=== PATIENT | female | born 1985 | race Caucasian/White ===

== ENCOUNTER 2018-03-16 16:02 | Emergency (ER) | payer OTHER ==
[2018-03-16] MEDS ORDERED: ALBUTEROL 2.5 MG/3 ML NEB SOL ONE (17:30)
[2018-03-16] MEDS ORDERED: IPRATROPIUM BROM 0.5MG/2.5ML ONE (17:30)
[2018-03-16] MEDS ORDERED: predniSONE 20 MG TAB ONE (17:31)
--- NOTE | 2018-03-16 17:46 | EDPHYS ---
Physician Documentation [facility] Name: Priscilla oSlo Age: 32 yrs Sex: Female : 1985 Arrival Date: 03/16/2018 Time: 16:10 Bed 27 Private MD: ED Physician Dillon Levine HPI: 03/16 17:07 This 32 yrs old Female presents to ER via Ambulatory with complaints of kb Cough, Congestion. 17:07 The patient or guardian reports cough, that is intermittent, described as mild, with no kb sputum. Onset: The symptoms/episode began/occurred 2 week(s) ago. Severity of symptoms: At their worst the symptoms were mild, moderate, in the emergency department the symptoms are unchanged. Modifying factors: The symptoms are alleviated by nothing, the symptoms are aggravated by nothing. Associated signs and symptoms: Pertinent positives: rhinorrhea, Pertinent negatives: chest pain, diarrhea, ear ache, fever, nausea, sore throat, vomiting. The patient has not experienced similar symptoms in the past, but family has similar symptoms, daughter, son. The patient has not recently seen a physician. 17:08 Pt reports cough, congestion and wheezing. States she is out of her inhalers so she kb hasn't had any asthma treatments. 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 - Social history:: Smoking status: Patient/guardian denies using tobacco. ROS: 17:07 Constitutional: Negative for fever, chills, and weight loss, Neck: Negative for injury, kb pain, and swelling, Cardiovascular: Negative for chest pain, palpitations, and edema, Abdomen/GI: Negative for abdominal pain, nausea, vomiting, diarrhea, and constipation, Back: Negative for injury and pain, : Negative for injury, bleeding, discharge, and swelling, MS/Extremity: Negative for injury and deformity, Skin: Negative for injury, rash, and discoloration, Neuro: Negative for headache, weakness, numbness, tingling, and seizure. 17:07 ENT: Positive for rhinorrhea, sinus congestion. 17:07 Respiratory: Positive for cough, wheezing, Negative for dyspnea on exertion, hemoptysis, orthopnea, pleurisy, shortness of breath, sputum production. Exam: 17:06 Constitutional: This is a well developed, well nourished patient who is awake, alert, kb and in no acute distress. Head/Face: Normocephalic, atraumatic. ENT: Nares patent. No nasal discharge, no septal abnormalities noted. Tympanic membranes are normal and external auditory canals are clear. Oropharynx with no redness, swelling, or masses, exudates, or evidence of obstruction, uvula midline. Mucous membranes moist. Neck: Trachea midline, no thyromegaly or masses palpated, and no cervical lymphadenopathy. Supple, full range of motion without nuchal rigidity, or vertebral point tenderness. No Meningismus. Chest/axilla: Normal chest wall appearance and motion. Nontender with no deformity. No lesions are appreciated. Cardiovascular: Regular rate and rhythm with a normal S1 and S2. No gallops, murmurs, or rubs. Normal PMI, no JVD. No pulse deficits. Abdomen/GI: Soft, non-tender, with normal bowel sounds. No distension or tympany. No guarding or rebound. No evidence of tenderness throughout. Back: No spinal tenderness. No costovertebral tenderness. Full range of motion. Skin: Warm, dry with normal turgor. Normal color with no rashes, no lesions, and no evidence of cellulitis. MS/ Extremity: Pulses equal, no cyanosis. Neurovascular intact. Full, normal range of motion. Neuro: Awake and alert, GCS 15, oriented to person, place, time, and situation. Cranial nerves II-XII grossly intact. Motor strength 5/5 in all extremities. Sensory grossly intact. Cerebellar exam normal. Normal gait. 17:06 Respiratory: the patient does not display signs of respiratory distress, Respirations: normal, Breath sounds: wheezing: expiratory that is mild, is scattered. Vital Signs: 16:18 BP 132 / 92; Pulse 86; Resp 18; Temp 97.0(TE); Pulse Ox 97% on R/A; Weight 120.2 kg lk1 (R); Height 5 ft. 1 in. (154.94 cm) (R); Pain 6/10; 18:47 BP 137 / 110; Pulse 98; Resp 18; Pulse Ox 100% ; tl3 16:18 Body Mass Index 50.07 (120.20 kg, 154.94 cm) lk1 MDM: 16:36 Patient medically screened. kb 17:06 Data reviewed: vital signs, nurses notes. Data interpreted: Pulse oximetry: on room air kb is 97 %. Interpretation: normal. 17:08 Counseling: I had a detailed discussion with the patient and/or guardian regarding: the kb historical points, exam findings, and any diagnostic results supporting the discharge/admit diagnosis, the need for outpatient follow up, a family practitioner, to return to the emergency department if symptoms worsen or persist or if there are any questions or concerns that arise at home. Administered Medications: 17:40 Drug: DuoNeb (3:1) (2.5 mg - 0.5 mg) 3 ml Route: Nebulizer; tl3 18:44 Follow up: Response: No adverse reaction; Wheezing diminished tl3 17:40 Drug: predniSONE 40 mg Route: PO; tl3 18:43 Follow up: Response: No adverse reaction tl3 Disposition: 18:51 Co-signature as Attending Physician, Dillon Levine MD. rn Disposition: 03/16/18 17:45 Discharged to Home. Impression: Acute upper respiratory infection, unspecified, Asthma. - Condition is Stable. - Discharge Instructions: Upper Respiratory Infection, Pediatric, Asthma, Adult, [id number]. - Prescriptions for Prednisone 20 mg Oral Tablet - take 1 tablet by ORAL route once daily for 5 days; 5 tablet. Albuterol Sulfate 90 mcg/actuation - inhale 1-2 puff by INHALATION route every 4-6 hours; 1 Inhaler. - Medication Reconciliation Form, Thank You Letter, Antibiotic Education, Prescription Opioid Use form. - Follow up: Emergency Department; When: As needed; Reason: Worsening of condition. Follow up: Private Physician; When: 2 - 3 days; Reason: Recheck today's complaints, Continuance of care, Re-evaluation by your physician. Signatures: Nai Nelson, LUBE WORKER-C LUBE WORKER-Dillon Flannery MD MD rn Kluge, Leah RN RN lk1 Namrata Gonzalez RN RN tl3 Corrections: (The following items were deleted from the chart) 18:44 17:45 03/16/2018 17:45 Discharged to Home. Impression: Acute upper respiratory tl3 infection, unspecified; Asthma. Condition is Stable. Discharge Instructions: Upper Respiratory Infection, Pediatric, Asthma, Adult, [id number]. Prescriptions for Prednisone 20 mg Oral Tablet - take 1 tablet by ORAL route once daily for 5 days; 5 tablet, Albuterol Sulfate 90 mcg/actuation - inhale 1-2 puff by INHALATION route every 4-6 hours; 1 Inhaler. and Forms are Medication Reconciliation Form, Thank You Letter, Antibiotic Education, Prescription Opioid Use. Follow up: Emergency Department; When: As needed; Reason: Worsening of condition. Follow up: Private Physician; When: 2 - 3 days; Reason: Recheck today's complaints, Continuance of care, Re-evaluation by your physician. kb
--- NOTE | 2018-03-16 17:46 | ER ---
Nurse's Notes [facility] Name: Priscilla Solo Age: 32 yrs Sex: Female : 1985 Arrival Date: 03/16/2018 Time: 16:10 Bed 27 Private MD: Diagnosis: Acute upper respiratory infection, unspecified;Asthma Presentation: 03/16 16:16 Presenting complaint: Patient states: "I have drainage, throat hurts, coughing, lk1 headaches, wheezing.". 16:16 Method Of Arrival: Ambulatory lk1 16:16 Transition of care: patient was not received from another setting of care. Onset of lk1 symptoms was February 27, 2018. Risk Assessment: Do you want to hurt yourself or someone else? Patient reports no desire to harm self or others. Initial Sepsis Screen: Does the patient meet any 2 criteria? No. Patient's initial sepsis screen is negative. Does the patient have a suspected source of infection? No. Patient's initial sepsis screen is negative. Care prior to arrival: None. 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 - Social history:: Smoking status: Patient/guardian denies using tobacco. Screenin:40 Abuse screen: Denies threats or abuse. Nutritional screening: No deficits noted. tl3 Tuberculosis screening: No symptoms or risk factors identified. Fall Risk None identified. Assessment: 17:40 General: Appears in no apparent distress. comfortable, obese, well groomed, well tl3 developed, well nourished, Behavior is calm, cooperative, appropriate for age. Pain: Complains of pain in chest. Neuro: Level of Consciousness is awake, alert, obeys commands, Oriented to person, place, time, situation, Appropriate for age. Cardiovascular: Heart tones S1 S2 present Patient's skin is warm and dry. Respiratory: Airway is patent Trachea midline Respiratory effort is even, unlabored, Respiratory pattern is regular, symmetrical, Breath sounds are coarse bilaterally. Breath sounds with rhonchi. GI: No signs and/or symptoms were reported involving the gastrointestinal system. : No signs and/or symptoms were reported regarding the genitourinary system. EENT: No signs and/or symptoms were reported regarding the EENT system. Derm: No signs and/or symptoms reported regarding the dermatologic system. Musculoskeletal: No signs and/or symptoms reported regarding the musculoskeletal system. Vital Signs: 16:18 BP 132 / 92; Pulse 86; Resp 18; Temp 97.0(TE); Pulse Ox 97% on R/A; Weight 120.2 kg lk1 (R); Height 5 ft. 1 in. (154.94 cm) (R); Pain 6/10; 18:47 BP 137 / 110; Pulse 98; Resp 18; Pulse Ox 100% ; tl3 16:18 Body Mass Index 50.07 (120.20 kg, 154.94 cm) lk1 ED Course: 16:10 Patient arrived in ED. mr 16:17 Triage completed. lk1 16:20 Arm band placed on right wrist. lk1 16:33 Nai Nelson FNP-C is [facility]. kb 16:33 Dillon Levien MD is Attending Physician. kb 17:28 Namrata Gonzalez, MARE is Primary Nurse. tl3 17:40 Patient has correct armband on for positive identification. Bed in low position. Adult tl3 w/ patient. 17:40 No provider procedures requiring assistance completed. Patient did not have IV access tl3 during this emergency room visit. Administered Medications: 17:40 Drug: DuoNeb (3:1) (2.5 mg - 0.5 mg) 3 ml Route: Nebulizer; tl3 18:44 Follow up: Response: No adverse reaction; Wheezing diminished tl3 17:40 Drug: predniSONE 40 mg Route: PO; tl3 18:43 Follow up: Response: No adverse reaction tl3 Outcome: 17:45 Discharge ordered by MD. kb 18:43 Discharged to tl3 18:43 Condition: good 18:43 Discharge instructions given to patient, Instructed on discharge instructions, follow up and referral plans. medication usage, Demonstrated understanding of instructions, follow-up care, medications, Prescriptions given X 2. 18:44 Patient left the ED. tl3 Signatures: Nai Nelson FNP-C FNP-Chacha Mireles Talita Sharma RN RN lk1 Lisa, Namrata, RN RN tl3
[2018-03-16 19:04] VITALS: BP 132/92; TEMP 97; O2SAT 97
== END 2018-03-16 18:44 | disposition home or self-care (01) ==
LOC: ER 16:02
DX: J06.9 Acute upper respiratory infection, unspecified (principal); J45.909 Unspecified asthma, uncomplicated; I10 Essential (primary) hypertension
CPT/HCPCS: 94640; 99284; J7512

== ENCOUNTER 2018-11-12 18:29 | Emergency (ER) | payer OTHER ==
--- OUTSIDE RECORDS SUMMARY | 2018-11-12 18:31 | XMS REPORT ---
:1985 [facility] Organization [facility] Address [address] [place] [address] Dr. Manning [address] [place] [id number] Care Team Providers Name Role Phone Unavailable Unavailable Unavailable Problems This patient has no known problems. Allergies, Adverse Reactions, Alerts This patient has no known allergies or adverse reactions. Medications This patient has no known medications.
--- NOTE | 2018-11-12 20:33 | EDPHYS ---
Physician Documentation [facility] Name: Priscilla Solo Age: 33 yrs Sex: Female : 1985 Arrival Date: 11/12/2018 Time: 18:30 Bed 9 Private MD: ED Physician Lan Knox HPI: 11/12 20:49 This 33 yrs old Female presents to ER via Ambulatory with complaints of Hand kb Pain. 20:49 The patient or guardian reports hematoma. The complaints affect the dorsum of right kb hand. Context: The problem was sustained at a store, resulted from an unknown cause. Onset: The symptoms/episode began/occurred just prior to arrival. Modifying factors: The symptoms are alleviated by nothing, the symptoms are aggravated by nothing. Associated signs and symptoms: The patient has no apparent associated signs or symptoms. Severity of symptoms: At their worst the symptoms were mild, moderate, in the emergency department the symptoms are unchanged. The patient has not experienced similar symptoms in the past. The patient has not recently seen a physician. Pt noticed hematoma to top of right hand while moving water into the cart at the store. Denies injury. . 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 - Social history:: Smoking status: Patient/guardian denies using tobacco. - Ebola Screening: : No symptoms or risks identified at this time. ROS: 20:47 Constitutional: Negative for fever, chills, and weight loss, Cardiovascular: Negative kb for chest pain, palpitations, and edema, Respiratory: Negative for shortness of breath, cough, wheezing, and pleuritic chest pain, Abdomen/GI: Negative for abdominal pain, nausea, vomiting, diarrhea, and constipation, MS/Extremity: Negative for injury and deformity, Neuro: Negative for headache, weakness, numbness, tingling, and seizure. 20:47 Skin: Positive for hematoma, of the dorsum of right hand. Exam: 20:48 Constitutional: This is a well developed, well nourished patient who is awake, alert, kb and in no acute distress. Head/Face: Normocephalic, atraumatic. Neck: Trachea midline, no thyromegaly or masses palpated, and no cervical lymphadenopathy. Supple, full range of motion without nuchal rigidity, or vertebral point tenderness. No Meningismus. Chest/axilla: Normal chest wall appearance and motion. Nontender with no deformity. No lesions are appreciated. Cardiovascular: Regular rate and rhythm with a normal S1 and S2. No gallops, murmurs, or rubs. Normal PMI, no JVD. No pulse deficits. Respiratory: Lungs have equal breath sounds bilaterally, clear to auscultation and percussion. No rales, rhonchi or wheezes noted. No increased work of breathing, no retractions or nasal flaring. Abdomen/GI: Soft, non-tender, with normal bowel sounds. No distension or tympany. No guarding or rebound. No evidence of tenderness throughout. MS/ Extremity: Pulses equal, no cyanosis. Neurovascular intact. Full, normal range of motion. Neuro: Awake and alert, GCS 15, oriented to person, place, time, and situation. Cranial nerves II-XII grossly intact. Motor strength 5/5 in all extremities. Sensory grossly intact. Cerebellar exam normal. Normal gait. 20:48 Skin: hematoma to top of right hand. . Vital Signs: 19:05 BP 168 / 69; Pulse 80; Resp 16; Temp 97.2; Pulse Ox 100% on R/A; Weight 117.93 kg (R); ak1 Height 5 ft. 1 in. (154.94 cm) (R); Pain 0/10; 19:05 Body Mass Index 49.13 (117.93 kg, 154.94 cm) ak1 MDM: 20:16 Patient medically screened. kb 20:47 Data reviewed: vital signs, nurses notes. Data interpreted: Pulse oximetry: on room air kb is 100 %. Interpretation: normal. Counseling: I had a detailed discussion with the patient and/or guardian regarding: the historical points, exam findings, and any diagnostic results supporting the discharge/admit diagnosis, radiology results, the need for outpatient follow up, a family practitioner, to return to the emergency department if symptoms worsen or persist or if there are any questions or concerns that arise at home. 11/12 19:16 Order name: XRAY Hand RIGHT 3 View; Complete Time: 20:42 ak1 Administered Medications: No medications were administered Disposition: 11/13 01:37 Co-signature as Attending Physician, Lan Knox MD. Disposition: 11/12/18 20:31 Discharged to Home. Impression: Hematoma of right hand. - Condition is Stable. - Discharge Instructions: Hematoma, [place]. - Medication Reconciliation Form, Thank You Letter, Antibiotic Education, Prescription Opioid Use, Work release form, Family Work Release form. - Follow up: Emergency Department; When: As needed; Reason: Worsening of condition. Follow up: Private Physician; When: 2 - 3 days; Reason: Recheck today's complaints, Continuance of care, Re-evaluation by your physician. Signatures: Dispatcher [employer] EDNai Mooney, DENITA-C SERVICE ORDER DISPATCHER-Nicki Quintanilla, RN RN iw Rochelle Jimenez RN RN ak1 Lan Knox MD MD gs Corrections: (The following items were deleted from the chart) 11/12 20:43 20:31 11/12/2018 20:31 Discharged to Home. Impression: Hematoma of right hand. iw Condition is Stable. Forms are Medication Reconciliation Form, Thank You Letter, Antibiotic Education, Prescription Opioid Use. Follow up: Emergency Department; When: As needed; Reason: Worsening of condition. Follow up: Private Physician; When: 2 - 3 days; Reason: Recheck today's complaints, Continuance of care, Re-evaluation by your physician. kb
--- NOTE | 2018-11-12 20:33 | ER ---
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 Transition of care: patient was not received from another setting of care. Onset of symptoms was November 12, 2018. Risk Assessment: Do you want to hurt yourself or someone else? Patient reports no desire to harm self or others. Initial Sepsis Screen: Does the patient meet any 2 criteria? No. Patient's initial sepsis screen is negative. Does the patient have a suspected source of infection? No. Patient's initial sepsis screen is negative. Care prior to arrival: None. 19:03 Method Of Arrival: Ambulatory ak1 19:03 Acuity: ERIC 4 ak1 Triage Assessment: 19:05 General: Appears in no apparent distress. Behavior is calm, cooperative. ak1 20:40 Pain: Denies pain. 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 - Social history:: Smoking status: Patient/guardian denies using tobacco. - Ebola Screening: : No symptoms or risks identified at this time. Screenin:40 Abuse screen: Denies threats or abuse. Denies injuries from another. Nutritional iw screening: No deficits noted. Tuberculosis screening: No symptoms or risk factors identified. Fall Risk None identified. Vital Signs: 19:05 BP 168 / 69; Pulse 80; Resp 16; Temp 97.2; Pulse Ox 100% on R/A; Weight 117.93 kg (R); ak1 Height 5 ft. 1 in. (154.94 cm) (R); Pain 0/10; 19:05 Body Mass Index 49.13 (117.93 kg, 154.94 cm) ak1 ED Course: 18:30 Patient arrived in ED. rg4 19:04 Triage completed. ak1 19:05 Arm band placed on Patient placed in waiting room, Patient notified of wait time. ak1 19:10 Patient has correct armband on for positive identification. iw 20:11 XRAY Hand RIGHT 3 View In Process Unspecified. EDMS 20:13 [facility]-C [facility]. kb 20:13 Lan Knox MD is Attending Physician. kb 20:20 Nicki Garcia, RN is Primary Nurse. iw 20:40 No provider procedures requiring assistance completed. Patient did not have IV access iw during this emergency room visit. Administered Medications: No medications were administered Outcome: 20:31 Discharge ordered by . kb 20:42 Discharged to home ambulatory. iw 20:42 Condition: good 20:42 Discharge instructions given to patient, Instructed on discharge instructions, follow up and referral plans. instructed by Nai, RAISSA, pt left before signing discharge paperwork 20:43 Patient left the ED. iw Signatures: Dispatcher [employer] EDHI Nai Nelson FNP-C FNP-CkNicki Hernandez, RN RN Rochelle Mason RN RN akLatasha Stern rg4
--- NOTE | 2018-11-12 20:34 | RAD REPORT ---
EXAM DESCRIPTION: RAD - Hand Right 3 View - 11/12/2018 8:18 pm CLINICAL HISTORY: Right hand pain FINDINGS: A 1.8 millimeter bony density lies adjacent to the radial aspect of the base of the third proximal phalanx. It probably either represents an ossicle or is chronic. An acute avulsion fracture is unlikely but should be correlated clinically. No dislocation. No bony destructive lesion noted. Joint spaces are well-maintained
[2018-11-12 21:00] VITALS: BP 168/69; TEMP 97.2; O2SAT 100
== END 2018-11-12 20:43 | disposition home or self-care (01) ==
LOC: ER 18:29
DX: S60.221A Contusion of right hand, initial encounter (principal)

== ENCOUNTER 2019-01-15 20:31 | Emergency (ER) | payer OTHER ==
--- OUTSIDE RECORDS SUMMARY | 2019-01-15 20:35 | XMS REPORT ---
:1985 [facility] Address [address] [place] [address] Dr. Manning [address] [place] [id number] Care Team Providers Name Role Phone Unavailable Unavailable Unavailable Problems This patient has no known problems. Allergies, Adverse Reactions, Alerts This patient has no known allergies or adverse reactions. Medications This patient has no known medications.
[2019-01-15] MEDS ORDERED: ALBUTEROL 2.5 MG/3 ML NEB SOL ONE (21:03)
[2019-01-15] MEDS ORDERED: IPRATROPIUM BROM 0.5MG/2.5ML ONE (21:04)
[2019-01-15] MEDS ORDERED: ACETAMINOPHEN 500 MG TAB ONE (23:10)
[2019-01-15 23:54] LABS: Urine Specific Gravity 1.015 (1.005-1.030)
[2019-01-15 23:55] LABS: Urine Blood NEGATIVE (NEG); Urine Glucose NEGATIVE (NEG); Urine Protein NEGATIVE (NEG); Urine Specific Gravity 1.015 (1.005-1.030); Urine pH 5.5 (5.0-7.0)
--- NOTE | 2019-01-16 03:33 | ER ---
Nurse's Notes [facility] Name: Priscilla Solo Age: 33 yrs Sex: Female : 1985 Arrival Date: 01/15/2019 Time: 20:33 Bed 26 Private MD: Diagnosis: Other ovarian cysts;Unspecified ovarian cysts Presentation: 01/15 20:50 Presenting complaint: Patient states: she has several things she needs to have taken bb care of as she has not been able to see her PCP she had bronchitis a month ago and is still coughing up green stuff, she thinks she has a UTI because she has burning with urination and pressure "down there", she has a headache as well. Transition of care: patient was not received from another setting of care. Onset of symptoms is unknown. Risk Assessment: Do you want to hurt yourself or someone else? Patient reports no desire to harm self or others. Initial Sepsis Screen: Does the patient meet any 2 criteria? No. Patient's initial sepsis screen is negative. Does the patient have a suspected source of infection? No. Patient's initial sepsis screen is negative. Care prior to arrival: None. 20:50 Method Of Arrival: Ambulatory bb 20:50 Acuity: ERIC 3 bb Triage Assessment: 01/16 03:48 Respiratory: Onset: The symptoms/episode began/occurred gradually, the patient has mild mg2 shortness of breath. 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 - Social history:: Smoking status: Patient/guardian denies using tobacco, Patient uses alcohol, but reports only rare drinking. Patient/guardian denies using street drugs. - Ebola Screening: : No symptoms or risks identified at this time. Screenin:51 Abuse screen: Denies threats or abuse. Denies injuries from another. Nutritional ed1 screening: No deficits noted. Tuberculosis screening: No symptoms or risk factors identified. Fall Risk None identified. Assessment: 21:51 General: Appears in no apparent distress. Behavior is calm, cooperative. Pain: ed1 Complains of pain in head, suprapubic area Pain currently is 8 out of 10 on a pain scale. Quality of pain is described as aching. Neuro: Level of Consciousness is awake, alert, obeys commands, Oriented to person, place, time, situation, Reports headache. Cardiovascular: Denies chest pain, Rhythm is regular. Respiratory: Reports shortness of breath cough that is productive, Airway is patent Respiratory effort is even, unlabored, Respiratory pattern is regular, symmetrical, Breath sounds are clear bilaterally. GI: No signs and/or symptoms were reported involving the gastrointestinal system. : Reports burning with urination, urgency. EENT: No signs and/or symptoms were reported regarding the EENT system. Derm: Skin is intact, is healthy with good turgor, Skin is dry, Skin is normal, Skin temperature is warm. Musculoskeletal: Circulation, motion, and sensation intact. Range of motion: intact in all extremities. 01/16 00:22 Reassessment: Patient appears in no apparent distress at this time. No changes from ed1 previously documented assessment. Patient and/or family updated on plan of care and expected duration. Pain level reassessed. Patient is alert, oriented x 3, equal unlabored respirations, skin warm/dry/pink. Patient states symptoms have not improved. 03:47 Reassessment: Patient states feeling better. mg2 Vital Signs: 01/15 20:53 BP 141 / 89; Pulse 75; Resp 16 S; Temp 97.6(O); Pulse Ox 96% on R/A; Weight 122.47 kg bb (R); Height 5 ft. 1 in. (154.94 cm) (R); Pain 8/10; 21:51 BP 110 / 59; Pulse 87; Resp 18; Pulse Ox 96% on R/A; Pain 8/10; ed1 22:56 BP 135 / 75; Pulse 100; Resp 18; Pulse Ox 100% on R/A; Pain 4/10; mg2 01/16 00:22 BP 133 / 90; Pulse 87; Resp 19; Pulse Ox 100% on R/A; Pain 8/10; ed1 01:24 BP 132 / 74; Pulse 75; Resp 18; Pulse Ox 100% on R/A; mg2 02:24 BP 140 / 73; Pulse 86; Resp 18; Pulse Ox 100% on R/A; Pain 0/10; mg2 01/15 20:53 Body Mass Index 51.02 (122.47 kg, 154.94 cm) bb ED Course: 01/15 20:33 Patient arrived in ED. es 20:41 Shanel Correia, MARE is Primary Nurse. ed1 20:43 Kalia Francis MD is Attending Physician. tw4 20:52 Triage completed. bb 20:53 Arm band placed on Patient placed in an exam room, on a stretcher, on pulse oximetry. bb 21:04 X-ray completed. Portable x-ray completed in exam room. Patient tolerated procedure ml well. 21:05 CXR XRAY In Process Unspecified. EDMS 21:51 Patient has correct armband on for positive identification. Bed in low position. Call ed1 light in reach. 22:33 Radiology exam delayed due to lab results not completed at this time. (BUN/Creatinine). vm2 22:38 Inserted saline lock: 20 gauge in right antecubital area, using aseptic technique. rv 01/16 00:14 CT Abd/Pelvis - W/Contrast In Process Unspecified. EDMS 01:14 Primary Nurse role handed off by Shanel Correia, MARE ed1 03:47 No provider procedures requiring assistance completed. IV discontinued, intact, mg2 bleeding controlled, No redness/swelling at site. Pressure dressing applied. Administered Medications: 01/15 20:55 Drug: DuoNeb (3:1) (2.5 mg - 0.5 mg) 3 ml Route: Nebulizer; ed1 01/16 03:47 Follow up: Response: No adverse reaction; Marked relief of symptoms mg2 01/15 23:00 Drug: Tylenol 1000 mg Route: PO; mg2 01/16 03:47 Follow up: Response: No adverse reaction; Marked relief of symptoms mg2 Outcome: 03:33 Discharge ordered by . tw4 03:47 Discharged to home ambulatory. mg2 03:47 Condition: stable 03:47 Discharge instructions given to patient, Instructed on discharge instructions, follow up and referral plans. medication usage, Demonstrated understanding of instructions, follow-up care, medications, Prescriptions given X 1. 03:48 Patient left the ED. mg2 Signatures: Dispatcher [employer] EDMS Anjali Garza Brenda, RN RN Claudine Phelan Erika, RN RN ed1 Maida Randall vm2 Kalia Francis MD MD tw4 Juan Torres, RN RN mg2 Bud Garcia RN RN rv
--- NOTE | 2019-01-16 03:33 | EDPHYS ---
Physician Documentation [facility] Name: Priscilla Solo Age: 33 yrs Sex: Female : 1985 Arrival Date: 01/15/2019 Time: 20:33 Bed 26 Private MD: ED Physician Kalia Francis HPI: 01/16 02:40 This 33 yrs old Female presents to ER via Ambulatory with complaints of tw4 Productive Cough, Headache, Breathing Difficulty, Chest feel heavy, UTI. 02:40 The patient or guardian reports cough. Onset: The symptoms/episode began/occurred tw4 today. Severity of symptoms: At their worst the symptoms were moderate, in the emergency department the symptoms are unchanged. Modifying factors: The symptoms are alleviated by nothing, the symptoms are aggravated by nothing. The patient has not experienced similar symptoms in the past. 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 - Social history:: Smoking status: Patient/guardian denies using tobacco, Patient uses alcohol, but reports only rare drinking. Patient/guardian denies using street drugs. - Ebola Screening: : No symptoms or risks identified at this time. ROS: 01/16 02:40 Constitutional: Negative for fever, chills, and weight loss, Eyes: Negative for injury, tw4 pain, redness, and discharge, Cardiovascular: Negative for chest pain, palpitations, and edema, Abdomen/GI: Negative for abdominal pain, nausea, vomiting, diarrhea, and constipation, Back: Negative for injury and pain, MS/Extremity: Negative for injury and deformity, Skin: Negative for injury, rash, and discoloration. Exam: 06:52 Constitutional: This is a well developed, well nourished patient who is awake, alert, tw4 and in no acute distress. Head/Face: Normocephalic, atraumatic. Chest/axilla: Normal chest wall appearance and motion. Nontender with no deformity. No lesions are appreciated. Cardiovascular: Regular rate and rhythm with a normal S1 and S2. No gallops, murmurs, or rubs. Normal PMI, no JVD. No pulse deficits. 06:52 MS/ Extremity: Pulses equal, no cyanosis. Neurovascular intact. Full, normal range of motion. Neuro: Awake and alert, GCS 15, oriented to person, place, time, and situation. Cranial nerves II-XII grossly intact. Motor strength 5/5 in all extremities. Sensory grossly intact. Cerebellar exam normal. Normal gait. 06:52 Respiratory: the patient does not display signs of respiratory distress, Respirations: normal, Breath sounds: are clear throughout. 06:52 Abdomen/GI: Inspection: abdomen appears normal, Bowel sounds: normal, Palpation: mild abdominal tenderness, in the suprapubic area. Vital Signs: 01/15 20:53 BP 141 / 89; Pulse 75; Resp 16 S; Temp 97.6(O); Pulse Ox 96% on R/A; Weight 122.47 kg bb (R); Height 5 ft. 1 in. (154.94 cm) (R); Pain 8/10; 21:51 BP 110 / 59; Pulse 87; Resp 18; Pulse Ox 96% on R/A; Pain 8/10; ed1 22:56 BP 135 / 75; Pulse 100; Resp 18; Pulse Ox 100% on R/A; Pain 4/10; mg2 01/16 00:22 BP 133 / 90; Pulse 87; Resp 19; Pulse Ox 100% on R/A; Pain 8/10; ed1 01:24 BP 132 / 74; Pulse 75; Resp 18; Pulse Ox 100% on R/A; mg2 02:24 BP 140 / 73; Pulse 86; Resp 18; Pulse Ox 100% on R/A; Pain 0/10; mg2 01/15 20:53 Body Mass Index 51.02 (122.47 kg, 154.94 cm) bb MDM: 01/15 20:43 Patient medically screened. tw4 01/16 06:52 Differential Diagnosis: Obstructed Airway Bronchitis Influenza. Data reviewed: vital tw4 signs, nurses notes. Data interpreted: Pulse oximetry: Interpretation: normal. Counseling: I had a detailed discussion with the patient and/or guardian regarding: the historical points, exam findings, and any diagnostic results supporting the discharge/admit diagnosis. Special discussion: I discussed with the patient/guardian in detail that at this point there is no indication for admission to the hospital. It is understood, however, that if the symptoms persist or worsen the patient needs to return immediately for re-evaluation. 01/15 20:44 Order name: Flu tw4 01/15 21:52 Order name: Urine Dipstick--Ancillary (enter results) ar5 01/15 20:44 Order name: CXR XRAY tw4 01/15 21:54 Order name: Urine --Ancillary (enter results) ar5 01/15 22:19 Order name: CT Abd/Pelvis - W/Contrast tw4 01/15 21:06 Order name: Urine Dipstick-Ancillary (obtain specimen); Complete Time: 21:50 bb Administered Medications: 01/15 20:55 Drug: DuoNeb (3:1) (2.5 mg - 0.5 mg) 3 ml Route: Nebulizer; ed1 01/16 03:47 Follow up: Response: No adverse reaction; Marked relief of symptoms mg2 01/15 23:00 Drug: Tylenol 1000 mg Route: PO; mg2 01/16 03:47 Follow up: Response: No adverse reaction; Marked relief of symptoms mg2 Disposition: 01/16/19 03:33 Discharged to Home. Impression: Other ovarian cysts, Unspecified ovarian cysts. - Condition is Stable. - Discharge Instructions: Ovarian Cyst, [id number]. - Prescriptions for Ibuprofen 800 mg Oral Tablet - take 1 tablet by ORAL route every 8 hours As needed take with food; 30 tablet. - Medication Reconciliation Form, Thank You Letter, Antibiotic Education, Prescription Opioid Use form. - Follow up: Private Physician; When: Upon discharge from the Emergency Department; Reason: If symptoms return, Recheck today's complaints, Continuance of care. - Problem is new. - Symptoms have improved. Signatures: Dispatcher [employer] EDMS Nadege Allen RN RN bb Shanel Correia RN RN ed1 Kalia Francis MD MD tw4 Juan Torres RN RN mg2 Corrections: (The following items were deleted from the chart) 03:48 03:33 01/16/2019 03:33 Discharged to Home. Impression: Other ovarian cysts; Unspecified mg2 ovarian cysts. Condition is Stable. Forms are Medication Reconciliation Form, Thank You Letter, Antibiotic Education, Prescription Opioid Use. Follow up: Private Physician; When: Upon discharge from the Emergency Department; Reason: If symptoms return, Recheck today's complaints, Continuance of care. Problem is new. Symptoms have improved. tw4
[2019-01-16 04:01] VITALS: TEMP 97.6
[2019-01-16 04:16] VITALS: O2SAT 100
[2019-01-16 04:21] VITALS: BP 140/73
--- NOTE | 2019-01-16 09:26 | RAD REPORT ---
EXAM DESCRIPTION: Nick Single View01/15/2019 9:10 pm CLINICAL HISTORY: Congestion COMPARISON: none FINDINGS: The lungs appear clear of acute infiltrate. The heart is borderline enlarged IMPRESSION: No acute abnormalities displayed
--- NOTE | 2019-01-18 11:19 | RAD REPORT ---
EXAM DESCRIPTION: CT - Abdomen Pelvis W Contrast - 01/16/2019 12:40 am CLINICAL HISTORY: The patient is 33 years old and is Female; ABD PAIN TECHNIQUE: Axial computed tomography images of the abdomen and pelvis with intravenous contrast. S agittal and coronal reformatted images were created and reviewed. This CT exam was performed using one or more of the following dose reduction techniques: automated exposure control, adjustment of t he mA and/or kV according to patient size, and/or use of iterative reconstruction technique. COMPARISON: CT of the abdomen and pelvis dated August 05, 2011 FINDINGS: LUNG BASES: Unremarkable. No mass. No consolidation. ABDOMEN: LIVER: Advanced diffuse hepatic steatosis with splaying of the gallbladder fossa. GALLBLADDER AND BILE DUCTS: See above. PANCREAS: Unremarkable. No mass. No ductal dilation. SPLEEN: Unremarkable. No splenomegaly. ADRENALS: Unremarkable. No mass. KIDNEYS AND URETERS: Unremarkable. No solid mass. No hydronephrosis. STOMACH AND BOWEL: Unremarkable. No obstruction. No mucosal thickening. PELVIS: APPENDIX: The appendix is seen and is within normal limits BLADDER: Unremarkable. No mass. REPRODUCTIVE: Heterogenous endometrium with 2.2 cm left ovarian cyst. ABDOMEN and PELVIS: INTRAPERITONEAL SPACE: Unremarkable. No free air. No significant fluid collection. BONES/JOINTS: No acute fracture. No dislocation. SOFT TISSUES: Unremarkable. VASCULATURE: Unremarkable. No abdominal aortic aneurysm. LYMPH NODES: Unremarkable. No enlarged lymph nodes. OTHER FINDINGS: Surgical clips are seen in the right lower quadrant. IMPRESSION: 1. No acute abdominal or pelvic abnormality. 2. Diffuse hepatic steatosis with gallbladder fossa sparing. 3. 2.2 cm left ovarian cyst. No follow-up imaging is recommended. Reference: US recommendations based on Radiology 2010 Jun;256(3):943-54; CT/MR recommendations based on J Am [place] Radiol 2013;10:675-681. Electronically signed by: Gomez Moreau DO 01/16/2019 12:15 AM CDT Due to temporary technical issues with the PACS/Fluency reporting system, reports are being signed by the in house radiologist as a courtesy to ensure prompt reporting. The interpreting radiologist is f ully responsible for the content of the report.
== END 2019-01-16 03:48 | disposition home or self-care (01) ==
LOC: ER 20:31
DX: N83.299 Other ovarian cyst, unspecified side (principal); I10 Essential (primary) hypertension
CPT/HCPCS: 71045; 74177; 81003; 81025; 87804; 94640; 99284; Q9967

== ENCOUNTER 2019-07-26 16:29 | Emergency (ER) | payer OTHER ==
--- NOTE | 2019-07-26 18:13 | ER ---
Nurse's Notes [facility] Name: Priscilla Solo Age: 34 yrs Sex: Female : 1985 Arrival Date: 07/26/2019 Time: 16:34 Bed 12 Private MD: Kelsey Floyd C Diagnosis: Bronchitis, not specified as acute or chronic;Acute pharyngitis, unspecified Presentation: 07/26 16:41 Presenting complaint: Patient states: sore throat for 1.5 weeks. Transition of care: la1 patient was not received from another setting of care. Onset of symptoms was July 26, 2019. Risk Assessment: Do you want to hurt yourself or someone else? Patient reports no desire to harm self or others. Initial Sepsis Screen: Does the patient meet any 2 criteria? No. Patient's initial sepsis screen is negative. Does the patient have a suspected source of infection? No. Patient's initial sepsis screen is negative. Care prior to arrival: None. 16:41 Method Of Arrival: Ambulatory la1 16:41 Acuity: ERIC 4 la1 Triage Assessment: 18:32 General: Appears in no apparent distress. Behavior is calm, cooperative. iw Historical: - Allergies: 16:42 No Known Allergies; la1 - PMHx: 16:42 cardiomyopathy; Hypertension; la1 - Immunization history:: Adult Immunizations up to date. - Social history:: Smoking status: Patient/guardian denies using tobacco. - Ebola Screening: : No symptoms or risks identified at this time. Screenin:00 Abuse screen: Denies threats or abuse. Denies injuries from another. Nutritional iw screening: No deficits noted. Tuberculosis screening: No symptoms or risk factors identified. Fall Risk None identified. Assessment: 18:00 General: Appears in no apparent distress. Behavior is calm, cooperative. Pain:. Neuro: iw Level of Consciousness is awake, alert, obeys commands, Oriented to person, place, time, situation. Cardiovascular: Patient's skin is warm and dry. Respiratory: Airway is patent Respiratory effort is even, unlabored, Breath sounds are clear bilaterally. EENT: Throat is pink. Derm: Skin is intact, is healthy with good turgor. Musculoskeletal: Range of motion: intact in all extremities. Vital Signs: 16:47 Pulse 89; Resp 18; Temp 98.4; Pulse Ox 100% on R/A; Weight 122.47 kg; Height 5 ft. 0 la1 in. (152.40 cm); 16:49 BP 154 / 81; la1 16:47 Body Mass Index 52.73 (122.47 kg, 152.40 cm) la1 ED Course: 16:34 Patient arrived in ED. am2 16:34 Kelsey Floyd FNP is Private Physician. am2 16:37 Emily Warner [facility]-C [facility]. snw 16:37 Dillon Levine MD is Attending Physician. snw 16:42 Triage completed. la1 16:42 Arm band placed on left wrist. la1 18:00 Patient has correct armband on for positive identification. iw 18:32 No provider procedures requiring assistance completed. Patient did not have IV access iw during this emergency room visit. 18:33 Nicki Garcia, RN is Primary Nurse. iw Administered Medications: No medications were administered Outcome: 18:12 Discharge ordered by . snw 18:32 Discharged to home ambulatory. iw 18:32 Condition: good 18:32 Discharge instructions given to patient, Instructed on discharge instructions, follow up and referral plans. Demonstrated understanding of instructions, follow-up care. 18:33 Patient left the ED. iw Signatures: Emily Warner FNP-C [employer] LABORATORY TECHNOLOGIST-Csnw Nicki Garcia, MARE GARVEY iw Matt De La Paz RN RN la1 Nannette Hawley am2
[2019-07-26 20:42] VITALS: TEMP 98.4; O2SAT 100
[2019-07-26 20:43] VITALS: BP 154/81
--- NOTE | 2019-07-27 18:40 | EDPHYS ---
Physician Documentation [facility] Name: Priscilla Solo Age: 34 yrs Sex: Female : 1985 Arrival Date: 07/26/2019 Time: 16:34 Bed 12 Private MD: Kelsey Floyd C ED Physician Dillon Levine HPI: 07/26 19:24 This 34 yrs old Female presents to ER via Ambulatory with complaints of Sore snw Throat. 19:24 The patient presents with sore throat. The patient describes throat pain as constant, snw scratchy. Onset: The symptoms/episode began/occurred gradually, 2 week(s) ago, and became persistent. Severity of symptoms: At their worst the symptoms were moderate. Associated signs and symptoms: Pertinent positives: cough, flu-like symptoms. The patient has experienced similar episodes in the past. It is unknown whether or not the patient has recently seen a physician. children with similar s/s. Historical: - Allergies: 16:42 No Known Allergies; la1 - PMHx: 16:42 cardiomyopathy; Hypertension; la1 - Immunization history:: Adult Immunizations up to date. - Social history:: Smoking status: Patient/guardian denies using tobacco. - Ebola Screening: : No symptoms or risks identified at this time. ROS: 19:23 Constitutional: Negative for fever, chills, and weight loss, Eyes: Negative for injury, snw pain, redness, and discharge, ENT: Negative for injury and discharge, + sore throat Neck: Negative for injury, pain, and swelling, Cardiovascular: Negative for chest pain, palpitations, and edema, Abdomen/GI: Negative for abdominal pain, nausea, vomiting, diarrhea, and constipation, Back: Negative for injury and pain, : Negative for injury, bleeding, discharge, and swelling, MS/Extremity: Negative for injury and deformity, Skin: Negative for injury, rash, and discoloration, Neuro: Negative for headache, weakness, numbness, tingling, and seizure. 19:23 Respiratory: Positive for cough, with no reported sputum. Exam: 19:23 Constitutional: This is a well developed, well nourished patient who is awake, alert, snw and in no acute distress. Head/Face: Normocephalic, atraumatic. Eyes: Pupils equal round and reactive to light, extra-ocular motions intact. Lids and lashes normal. Conjunctiva and sclera are non-icteric and not injected. Cornea within normal limits. Periorbital areas with no swelling, redness, or edema. ENT: Nares patent. No nasal discharge, no septal abnormalities noted. Tympanic membranes are normal and external auditory canals are clear. Oropharynx with no redness, swelling, or masses, exudates, or evidence of obstruction, uvula midline. Mucous membranes moist. Neck: Trachea midline, no thyromegaly or masses palpated, and no cervical lymphadenopathy. Supple, full range of motion without nuchal rigidity, or vertebral point tenderness. No Meningismus. Chest/axilla: Normal chest wall appearance and motion. Nontender with no deformity. No lesions are appreciated. Cardiovascular: Regular rate and rhythm with a normal S1 and S2. No gallops, murmurs, or rubs. Normal PMI, no JVD. No pulse deficits. Abdomen/GI: Soft, non-tender, with normal bowel sounds. No distension or tympany. No guarding or rebound. No evidence of tenderness throughout. Back: No spinal tenderness. No costovertebral tenderness. Full range of motion. Skin: Warm, dry with normal turgor. Normal color with no rashes, no lesions, and no evidence of cellulitis. MS/ Extremity: Pulses equal, no cyanosis. Neurovascular intact. Full, normal range of motion. Neuro: Awake and alert, GCS 15, oriented to person, place, time, and situation. Cranial nerves II-XII grossly intact. Motor strength 5/5 in all extremities. Sensory grossly intact. Cerebellar exam normal. Normal gait. Psych: Awake, alert, with orientation to person, place and time. Behavior, mood, and affect are within normal limits. 19:23 Respiratory: the patient does not display signs of respiratory distress, Respirations: normal, Breath sounds: are clear throughout, bronchitic cough. Vital Signs: 16:47 Pulse 89; Resp 18; Temp 98.4; Pulse Ox 100% on R/A; Weight 122.47 kg; Height 5 ft. 0 la1 in. (152.40 cm); 16:49 BP 154 / 81; la1 16:47 Body Mass Index 52.73 (122.47 kg, 152.40 cm) la1 MDM: 17:55 Patient medically screened. snw 19:25 Data reviewed: vital signs, nurses notes. Data interpreted: Pulse oximetry: on room air snw is 100 %. Interpretation: normal. Counseling: I had a detailed discussion with the patient and/or guardian regarding: the historical points, exam findings, and any diagnostic results supporting the discharge/admit diagnosis, the presence of at least one elevated blood pressure reading (>120/80) during this emergency department visit, lab results, the need for outpatient follow up, for definitive care, to return to the emergency department if symptoms worsen or persist or if there are any questions or concerns that arise at home. Special discussion: Based on the history and exam findings, there is no indication for further emergent testing or inpatient evaluation. I discussed with the patient/guardian the need to see the pediatric physiatrist for further evaluation of the symptoms. I discussed with the patient/guardian the need to see the primary care provider for further evaluation of the symptoms. 07/26 16:37 Order name: Strep; Complete Time: 17:54 snw 07/26 16:37 Order name: Flu; Complete Time: 18:14 snw 07/26 17:58 Order name: Throat Culture EDMS Administered Medications: No medications were administered Disposition: 07/27 07:07 Co-signature as Attending Physician, Dillon Levine MD. rn Disposition: 07/26/19 18:12 Discharged to Home. Impression: Bronchitis, not specified as acute or chronic, Acute pharyngitis, unspecified. - Condition is Stable. - Discharge Instructions: Acute Bronchitis, Adult, Fever, Adult, Hypertension, How to Use an Inhaler, Pharyngitis, Upper Respiratory Infection, Adult, Cool Mist Vaporizer, Cough, Adult, Rehydration, Adult. - Prescriptions for Albuterol Sulfate 2.5 mg /3 mL (0.083 %) Inhalation Solution for Nebulization - inhale 1 unit by NEBULIZATION route every 8 hours As needed; 1 box. Prednisone 20 mg Oral Tablet - take 2 tablet by ORAL route once daily for 5 days; 10 tablet. Albuterol Sulfate 90 mcg/actuation - inhale 1-2 puff by INHALATION route every 4-6 hours; 1 Inhaler. Zithromax 500 mg Oral Tablet - take 1 tablet by ORAL route once daily for 5 days; 5 tablet. - Work release form, Medication Reconciliation Form, Thank You Letter, Antibiotic Education, Prescription Opioid Use form. - Follow up: Emergency Department; When: As needed; Reason: Worsening of condition. Follow up: Private Physician; When: 1 week; Reason: Recheck today's complaints, Continuance of care, Re-evaluation by your physician. Signatures: Dispatcher [employer] EDMS AlanaEmily urena, DENITA-C RECEPTIONIST CLERK-Csnw Nicki Garcia RN RN iw Nieto, Roman, MD MD rn Attema, Lee, RN RN la1 Corrections: (The following items were deleted from the chart) 07/26 18:33 18:12 07/26/2019 18:12 Discharged to Home. Impression: Bronchitis, not specified as iw acute or chronic; Acute pharyngitis, unspecified. Condition is Stable. Forms are Medication Reconciliation Form, Thank You Letter, Antibiotic Education, Prescription Opioid Use. Follow up: Emergency Department; When: As needed; Reason: Worsening of condition. Follow up: Private Physician; When: 1 week; Reason: Recheck today's complaints, Continuance of care, Re-evaluation by your physician. snw
== END 2019-07-26 18:33 | disposition home or self-care (01) ==
LOC: ER 16:29
DX: J40 Bronchitis, not specified as acute or chronic (principal)
CPT/HCPCS: 87070; 87081; 87804; 99281

== ENCOUNTER 2019-12-06 09:33 | Emergency (ER) | payer OTHER ==
--- OUTSIDE RECORDS SUMMARY | 2019-12-06 09:35 | XMS REPORT ---
:1985 [facility] Address [address] [place] [address] Dr. Manning [address] [place] [id number] Care Team Providers Name Role Phone Unavailable Unavailable Unavailable Problems This patient has no known problems. Allergies, Adverse Reactions, Alerts This patient has no known allergies or adverse reactions. Medications This patient has no known medications.
--- NOTE | 2019-12-06 10:53 | ER ---
Nurse's Notes [facility] Name: Priscilla Solo Age: 34 yrs Sex: Female : 1985 Arrival Date: 12/06/2019 Time: 09:38 Bed DIS1 Private MD: Diagnosis: Dental root caries;Cellulitis left breast Presentation: 12/06 10:06 Presenting complaint: Patient states: Teeth abscess and spider bite on L breast. Cough ca1 and congestion x 1 wk. Denies fever, N/V/D. Presenting complaint:. Transition of care: patient was not received from another setting of care. Onset of symptoms was December 06, 2019. Risk Assessment: Do you want to hurt yourself or someone else? Patient reports no desire to harm self or others. Initial Sepsis Screen: Does the patient meet any 2 criteria? No. Patient's initial sepsis screen is negative. Does the patient have a suspected source of infection? No. Patient's initial sepsis screen is negative. Care prior to arrival: None. 10:06 Method Of Arrival: Ambulatory ca1 10:06 Acuity: ERIC 4 ca1 Triage Assessment: 10:10 General: Appears in no apparent distress. comfortable, Behavior is calm, cooperative, ca1 appropriate for age. Pain: Denies pain. EENT: Reports pain none. Pt states, "my teeth abscess popped so it doesn't hurt anymore. They're just sore". EENT: Reports nasal congestion nasal discharge that is watery since a week ago. Neuro: Level of Consciousness is awake, alert, obeys commands, Oriented to person, place, time, situation, Appropriate for age. Respiratory: Reports cough that is since a week ago Airway is patent Respiratory effort is even, unlabored, Respiratory pattern is regular, symmetrical, Breath sounds are clear bilaterally. Derm: Skin is intact, is healthy with good turgor, Skin is pink, warm \\T\\ dry. Musculoskeletal: Circulation, motion, and sensation intact. Capillary refill < 3 seconds. CHECKERER HAND: 11:02 unknown ca1 Historical: - Allergies: 10:10 No Known Allergies; ca1 - Home Meds: 10:10 Lexapro Oral [Active]; Trazodone Oral [Active]; ca1 - PMHx: 10:10 Anxiety; CHF; cardiomyopathy; Hypertension; ca1 - PSHx: 10:10 ; Appendectomy; ca1 - Immunization history:: Adult Immunizations up to date, Flu vaccine is not up to date. - Coronavirus screen:: The patient has NOT traveled to [place], [place], or [place] in the past 14 days. The patient has NOT had contact with known/suspected case of Coronavirus?. - Social history:: Smoking status: Patient denies any tobacco usage or history of. - Ebola Screening: : Patient negative for fever greater than or equal to 101.5 degrees Fahrenheit, and additional compatible Ebola Virus Disease symptoms Patient denies exposure to infectious person Patient denies travel to an Ebola-affected area in the 21 days before illness onset No symptoms or risks identified at this time. Screenin:14 Abuse screen: Denies threats or abuse. Denies injuries from another. Nutritional ca1 screening: No deficits noted. Tuberculosis screening: No symptoms or risk factors identified. Fall Risk None identified. Assessment: 10:14 Reassessment: SEE TRIAGE ASSESSMENT. ca1 11:01 Reassessment: Patient appears in no apparent distress at this time. Patient is alert, ca1 oriented x 3, equal unlabored respirations, skin warm/dry/pink. Vital Signs: 10:10 BP 153 / 99; Pulse 102; Resp 18 S; Temp 98.1(O); Pulse Ox 98% on R/A; Weight 122.47 kg ca1 (R); Height 5 ft. 1 in. (154.94 cm) (R); Pain 0/10; 11:01 BP 133 / 86; Pulse 99; Resp 18 S; Pulse Ox 99% on R/A; ca1 10:10 Body Mass Index 51.02 (122.47 kg, 154.94 cm) ca1 ED Course: 09:38 Patient arrived in ED. rg4 09:54 Yakov Fletcher PA is PHCP. jr8 09:54 Jerry Rodriguez MD is Attending Physician. jr8 10:06 Ana Presley RN is Primary Nurse. ca1 10:08 Triage completed. ca1 10:10 Arm band placed on right wrist. ca1 10:14 Patient has correct armband on for positive identification. Bed in low position. Call ca1 light in reach. Side rails up X 1. Pulse ox on. NIBP on. 10:14 No provider procedures requiring assistance completed. Patient did not have IV access ca1 during this emergency room visit. Administered Medications: No medications were administered Outcome: 10:51 Discharge ordered by MD. adams 11:02 Discharged to home ambulatory, with family. ca1 11:02 Condition: stable 11:02 Discharge instructions given to patient, Instructed on discharge instructions, follow up and referral plans. medication usage, Demonstrated understanding of instructions, follow-up care, medications, Prescriptions given X 2. 11:02 Patient left the ED. ca1 Signatures: Yakov Fletcher PA PA jr8 Garcia, Rubi 4 Ana Presley RN RN ca1
--- NOTE | 2019-12-06 10:53 | EDPHYS ---
Physician Documentation [facility] Name: Priscilla Solo Age: 34 yrs Sex: Female : 1985 Arrival Date: 12/06/2019 Time: 09:38 Bed DIS1 Private MD: ED Physician Jerry Rodriguez HPI: 12/06 10:43 This 34 yrs old Female presents to ER via Ambulatory with complaints of Flu jr8 Symptoms, Toothache, Abscess. 10:43 Patient presents to ED with several complaints. Stated that she has had cough, sore jr8 throat, dental infection, and swollen red area to left lateral breast. Severity of symptoms: At their worst the symptoms were mild in the emergency department the symptoms are unchanged. The patient has not experienced similar symptoms in the past. The patient has not recently seen a physician. 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 - Coronavirus screen:: The patient has NOT traveled to [place], [place], or [place] in the past 14 days. The patient has NOT had contact with known/suspected case of Coronavirus?. - Social history:: Smoking status: Patient denies any tobacco usage or history of. - Ebola Screening: : Patient negative for fever greater than or equal to 101.5 degrees Fahrenheit, and additional compatible Ebola Virus Disease symptoms Patient denies exposure to infectious person Patient denies travel to an Ebola-affected area in the 21 days before illness onset No symptoms or risks identified at this time. ROS: 10:43 Eyes: Negative for injury, pain, redness, and discharge, Neck: Negative for injury, jr8 pain, and swelling, Cardiovascular: Negative for chest pain, palpitations, and edema, Abdomen/GI: Negative for abdominal pain, nausea, vomiting, diarrhea, and constipation, Back: Negative for injury and pain, MS/Extremity: Negative for injury and deformity, Neuro: Negative for headache, weakness, numbness, tingling, and seizure. 10:43 ENT: Positive for dental pain, sore throat. 10:43 Respiratory: Positive for cough. 10:43 Skin: Positive for erythema, of the left breast. Exam: 10:43 Eyes: Pupils equal round and reactive to light, extra-ocular motions intact. Lids and jr8 lashes normal. Conjunctiva and sclera are non-icteric and not injected. Cornea within normal limits. Periorbital areas with no swelling, redness, or edema. ENT: Nares patent. No nasal discharge, no septal abnormalities noted. Tympanic membranes are normal and external auditory canals are clear. Oropharynx with no redness, swelling, or masses, exudates, or evidence of obstruction, uvula midline. Mucous membranes moist. Poor dentition throughout mouth noted with dental decay present. No obvious abscess seen. Moderate amount of pain to 2nd molar left lower jaw Neck: Trachea midline, no thyromegaly or masses palpated, and no cervical lymphadenopathy. Supple, full range of motion without nuchal rigidity, or vertebral point tenderness. No Meningismus. Cardiovascular: Regular rate and rhythm with a normal S1 and S2. No gallops, murmurs, or rubs. Normal PMI, no JVD. No pulse deficits. Respiratory: Lungs have equal breath sounds bilaterally, clear to auscultation and percussion. No rales, rhonchi or wheezes noted. No increased work of breathing, no retractions or nasal flaring. Abdomen/GI: Soft, non-tender, with normal bowel sounds. No distension or tympany. No guarding or rebound. No evidence of tenderness throughout. Back: No spinal tenderness. No costovertebral tenderness. Full range of motion. MS/ Extremity: Pulses equal, no cyanosis. Neurovascular intact. Full, normal range of motion. Neuro: Awake and alert, GCS 15, oriented to person, place, time, and situation. Cranial nerves II-XII grossly intact. Motor strength 5/5 in all extremities. Sensory grossly intact. Cerebellar exam normal. Normal gait. 10:43 Skin: Patient has small indurated region approximately 1 cm in length with scab noted. Small amount of surrounding erythema present. No abscess noted and no fluctuance felt . Vital Signs: 10:10 BP 153 / 99; Pulse 102; Resp 18 S; Temp 98.1(O); Pulse Ox 98% on R/A; Weight 122.47 kg ca1 (R); Height 5 ft. 1 in. (154.94 cm) (R); Pain 0/10; 11:01 BP 133 / 86; Pulse 99; Resp 18 S; Pulse Ox 99% on R/A; ca1 10:10 Body Mass Index 51.02 (122.47 kg, 154.94 cm) ca1 MDM: 09:59 Patient medically screened. [facility] 10:43 Data reviewed: vital signs, nurses notes, and as a result, I will discharge patient. jr8 Data interpreted: Pulse oximetry: on room air is 98 %. Interpretation: normal. Counseling: I had a detailed discussion with the patient and/or guardian regarding: the historical points, exam findings, and any diagnostic results supporting the discharge/admit diagnosis, the need for outpatient follow up, a dentist, a family practitioner, to return to the emergency department if symptoms worsen or persist or if there are any questions or concerns that arise at home. Administered Medications: No medications were administered Disposition: 15:17 Co-signature as Attending Physician, Jerry Rodriguez MD I agree with the assessment and [facility] plan of care. Disposition: 12/06/19 10:51 Discharged to Home. Impression: Dental root caries, Cellulitis left breast. - Condition is Stable. - Discharge Instructions: Cellulitis, Adult, Dental Caries, Adult, Dental Pain. - Prescriptions for Augmentin 875- 125 mg Oral Tablet - take 1 tablet by ORAL route every 12 hours for 10 days; 20 tablet. Bactroban 2 % Topical Ointment - Apply to affected area 1 application by TOPICAL route every 12 hours; 30 gram. - Medication Reconciliation Form, Thank You Letter, Antibiotic Education, Prescription Opioid Use form. - Follow up: Private Physician; When: 5 - 6 days; Reason: Wound Recheck, Recheck today's complaints, Continuance of care, Re-evaluation by your physician. - Problem is new. - Symptoms have improved. Signatures: Jerry Rodriguez MD MD [facility] Yakov Fletcher PA PA jr8 Ana Presley RN RN ca1 Corrections: (The following items were deleted from the chart) 11:02 10:51 12/06/2019 10:51 Discharged to Home. Impression: Dental root caries; Cellulitis ca1 left breast. Condition is Stable. Forms are Medication Reconciliation Form, Thank You Letter, Antibiotic Education, Prescription Opioid Use. Follow up: Private Physician; When: 5 - 6 days; Reason: Wound Recheck, Recheck today's complaints, Continuance of care, Re-evaluation by your physician. Problem is new. Symptoms have improved. jr8
[2019-12-06 11:25] VITALS: BP 133/86; TEMP 98.1; O2SAT 99
== END 2019-12-06 11:02 | disposition home or self-care (01) ==
LOC: ER 09:33
DX: K02.7 Dental root caries (principal); N61.0 Mastitis without abscess; I10 Essential (primary) hypertension; F41.9 Anxiety disorder, unspecified
CPT/HCPCS: 99283

== ENCOUNTER 2019-12-31 14:26 | Emergency (ER) | payer OTHER ==
--- OUTSIDE RECORDS SUMMARY | 2019-12-31 14:29 | XMS REPORT ---
:1985 [facility] Address [address] [place] [address] Dr. Manning [address] [place] [id number] Care Team Providers Name Role Phone Unavailable Unavailable Unavailable Problems This patient has no known problems. Allergies, Adverse Reactions, Alerts This patient has no known allergies or adverse reactions. Medications This patient has no known medications.
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
--- OUTSIDE RECORDS SUMMARY | 2019-12-31 14:30 | XMS REPORT | Summary of Care ---
:1985 Author Organization [facility] - Health Address [address] [place] [address] Care Team Providers Name Role Phone Marleny Floyd Insurance Hmo Marleny Floyd Primary Care Provider Encounter Details Date Type Department Care Team Description 12/23/2019 Orders Only [facility] Doctor Unassigned, No [address] [facility] Name [place], [place] [id number] [place] [id number] Allergies Active Allergy Reactions Severity Noted Date Comments Latex Rash 12/11/2017 documented as of this encounter (statuses as of 12/23/2019) Medications Medication Sig Dispensed Refills Start Date End Date Status traZODONE 50 mg tablet TAKE 1 TABLET BY 03/04/2019 Active MOUTH EVERYDAY AT BEDTIME escitalopram oxalate TAKE 1 TABLET BY 03/04/2019 Active 10 mg tablet MOUTH EVERY MORNING documented as of this encounter (statuses as [...] Any questions please contact: John Manley MD [phone] Natalie Hightower MD [phone] Moises Frias MD [phone] Quick facts ? Patient randomized after delivery if they met inclusion criteria a nd accepted ? Medication comes from [facility] not pharmacy, [facility] Phone Number [phone]. [phone] or cell ? Patient can start meds as soon as they tolerate PO ? One tab per day of either placebo or HCTZ ? Medication stays with patient ? Medication will appear on DEC, Nurses need to randy as given (No barcode) ? Medication needs to counted prior to discharge by research body team member ? All follow ups need to be on POD or PP day # 14 or more ? Patient needs to be reminded to bring their left over medication and bottle back to their visit ? [facility] needs to be notified at time of discharge ? Please contact Dr. Manley with any Questions Depression 05/18/2014 Asthma 05/18/2014 Overview: ICD10 Diagnosis Term [employer] Utility documented as of this encounter (statuses [...] had "leaky valves". But never evaluated. 06/23/15 [place] Card Stress test- negative. H olter- Sinus rhythm with mild ectopy (35 isolated SVT) 06/21/15 Echo- EF=> 55% , no wall motion abnl, Mild MR, mild PVR Morbid obesity 09/06/2015 05/20/2017 Previous delivery affecting , antepartum 09/06/20152015 Overview: Prev x1 [facility]- Dr Bailey for arrest of descent- Transverse [...] Treatment Date Type Specialty Care Team Description 12/23/2019 Office Visit Orthopedic Surgery Jose Landry MD [address] [address] Health Maintenance Due Date Last Done Comments INFLUENZA VACCINE (#1) 2019 10/16/2017 PAP SMEAR 05/20/2020 05/20/2017, 05/18/2014 DTaP,Tdap,and Td Vaccines (4 - Td) 10/16/2027 10/16/2017, 01/18/2016, 05/18/2014 PNEUMOCOCCAL 0-64 YEARS COMBINED Completed 05/11/2008 SERIES documented as of this encounter Procedures Procedure Name Priority Date/Time Associated Diagnosis Comments ASSIGNMENT OF BENEFITS Routine 12/23/2019 9:57 AM QUALITY ASSISTANT documented in this encounter Results Not on filedocumented in this encounter Insurance Payer Benefit Plan / Subscriber ID Effective Dates Phone Address Type Group [facility] xxxxxxxxx 2012-[employer] Medicaid COMM PLAN - PLUS t MANAGED MEDICAID documented as of this encounter Advance Directives Name Relationship Healthcare Agent Communication Relationship Vee Solo Mother Primary healthcare agent Josey Schultz Other Primary healthcare agent
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
--- OUTSIDE RECORDS SUMMARY | 2019-12-31 14:31 | XMS REPORT | Summary of Care ---
:1985 Author Organization [facility] Address [address] [place] [address] Care Team Providers Name Role Phone Marleny [...] CBC WITH DIFF Professional Office Building [address] [facility] , [address] [place] [address] Encounter Details Date Type Department Care Team Description 12/23/2019 Office Visit [facility] Orthopaedic Jose Landry Chronic pain of Surgery- Harjeet Ramos MD multiple joints [address], [address] ([address]) [address] [place] [address] [place] [phone] Allergies Active Allergy Reactions Severity Noted [...] Any questions please contact: John Manley MD [phone] Natalie Hightower MD [phone] Moises Frias MD [phone] Quick facts ? Patient randomized after delivery if they met inclusion criteria a nd accepted ? Medication comes from [facility] not pharmacy, [facility]S Phone Number Ext. [phone] or cell ? Patient can start meds as soon as they tolerate PO ? One tab per day of either placebo or HCTZ ? Medication stays with patient ? Medication will appear on DEC, Nurses need to randy as given (No barcode) ? Medication needs to counted prior to discharge by research steam powerplant supervisor ? All follow ups need to be on POD or PP day # 14 or more ? Patient needs to be reminded to bring their left over medication and bottle back to their visit ? IDS needs to be notified at time of discharge ? Please contact Dr. Manley with any Questions Depression 05/18/2014 Asthma 05/18/2014 Overview: ICD10 Diagnosis Term Multi Craft Maintenance Technician Utility documented as of this encounter (statuses [...] had "leaky valves". But never evaluated. 06/23/15 [place] Card Stress test- negative. H olter- Sinus rhythm with mild ectopy (35 isolated SVT) 06/21/15 Echo- EF=> 55% , no wall motion abnl, Mild MR, mild PVR Morbid obesity 09/06/2015 05/20/2017 Previous delivery affecting , antepartum 09/06/20152015 Overview: Prev x1 [facility]- Dr Bailey for arrest of [...] 122 kg (269 lb) 12/23/2019 10:00 AM AWNING HANGER HELPER Height 154.9 cm (5' 1") 12/23/2019 10:00 AM AWNING HANGER HELPER Body Mass Index 50.83 12/23/2019 10:00 AM AWNING HANGER HELPER documented in this encounter Progress Notes Jose Landry MD - 12/23/2019 10:15 AM CST Priscilla Solo is a 34 year old female Chief Complaint Patient presents with New Patient SWOLLEN JOINTS All joints hurts, patients feel like she has fibromyalgia Vitals: 12/23/19 1000 Weight: 122 kg (269 lb) Height: 61" (154.9 cm) [id number] - [place], [place] - [address] [employer] All Vitals taken, allergies and all medications [...] Ken Saeed; Location: Labor and Delivery - [place] SECTION N/A 12/12/2017 Surgeon: Santa Holland MD; Location: Labor and Delivery - [place] TUBAL LIGATION Bilateral 12/12/2017 Surgeon: Santa Holland MD; Location: Labor and Delivery - [facility] [place] Social History Socioeconomic History Marital status: Single [...] file Gets together: Not on file Attends buddhist service: Not on file Active member of [...] of Onset Coronary Heart Disease Maternal Grandmother [place] at 50 yo. Breast Cancer Maternal Grandmother [...] Date Type Specialty Care Team Description 12/23/2019 Cost Analyst Visit Phlebotomy Jose Landry MD [address] [place] [phone] Chronic pain of Pob, Adc Lab Main multiple joints 12/30/2019 Office Visit Orthopedic Surgery Jose Landry MD [address] [place] [address] [phone] Name Type Priority Associated Diagnoses Date/Time RHEUMATOID FACTOR LAB Routine Chronic pain of 12/23/2019 11:06 AM multiple joints AWNING HANGER HELPER STREPTOLYSIN O ANTIBODY LAB Routine Chronic pain of 12/23/2019 11:06 AM (ASO) multiple joints AWNING HANGER HELPER URIC ACID LAB Routine Chronic pain of 12/23/2019 11:06 AM multiple joints AWNING HANGER HELPER C-REACTIVE PROTEIN LAB Routine Chronic pain of 12/23/2019 11:06 AM multiple joints AWNING HANGER HELPER ANTI-NUCLEAR ANTIBODY LAB Routine Chronic pain of 12/23/2019 11:06 AM SCREEN multiple joints AWNING HANGER HELPER Name Type Priority Associated Diagnoses Order Schedule [...] Chronic pain of Results for this AM AWNING HANGER HELPER multiple joints procedure are in the results section. CBC WITH DIFFERENTIAL Routine 12/23/2019 11:06 Chronic pain of Results for this AM AWNING HANGER HELPER multiple joints procedure are in the results section. SEDIMENTATION RATE Routine 12/23/2019 11:06 Chronic pain of Results for this AM AWNING HANGER HELPER multiple joints procedure are in the results section. documented in this encounter Results CBC WITH DIFFERENTIAL (12/23/2019 11:06 AM AWNING HANGER HELPER) WBC 9.73 4.30 - 11.10 [facility] 10*3/L [facility] RBC 4.78 3.93 - 5.25 [facility] 10*6/L [facility] HGB 12.5 11.6 - 15.0 [facility] g/dL [facility] HCT 39.7 35.7 - 45.2 % [facility] MCV 83.1 80.6 - 95.5 fL [facility] MCH 26.2 25.9 - 32.8 pg [facility] MCHC 31.5 (L) 31.6 - 35.1 [facility] g/dL [facility] RDW-SD 45.0 39.0 - 49.9 fL [facility] RDW-CV 14.9 12.0 - 15.5 % [facility] PLT 274 166 - 358 [facility] 10*3/L [facility] MPV 10.0 9.5 - 12.9 fL [facility] NRBC/100 WBC 0.0 0.0 - 10.0 /100 [facility] WBCs [facility] NRBC x10^3 <0.01 10*3/L [facility] GRAN MAT (NEUT) % 60.7 % [facility] IMM GRAN % 0.50 % [facility] LYMPH % 28.4 % [facility] MONO % 7.5 % [facility] EOS % 2.5 % [facility] BASO % 0.4 % [facility] GRAN MAT x10^3(ANC) 5.91 1.88 - 7.09 [facility] 10*3/uL [facility] IMM GRAN x10^3 0.05 0.00 - 0.06 [facility] 10*3/uL [facility] LYMPH x10^3 2.76 1.32 - 3.29 [facility] 10*3/uL [facility] MONO x10^3 0.73 0.33 - 0.92 [facility] 10*3/uL [facility] EOS x10^3 0.24 0.03 - 0.39 [facility] 10*3/uL [facility] BASO x10^3 0.04 0.01 - 0.07 [facility] 10*3/uL [facility] Specimen Blood Performing Organization Address City/State/Zipcode Phone Number [facility] CLIA: [id number], [address] [place] [address] SEDIMENTATION RATE (12/23/2019 11:06 AM AWNING HANGER HELPER) ESR 14 0 - 20 mm/HR [facility] Specimen Blood Performing Organization Address City/[facility]/Zipcode Phone Number [facility] CLIA: [id number], [address] [place] [address] documented in this encounter Visit Diagnoses Diagnosis Chronic pain of multiple joints - Primary Pain in joint, multiple sites documented in this encounter Insurance Payer Benefit Plan / Subscriber ID Effective Dates Phone Address Type Group [facility] xxxxxxxxx 2012-[facility] Medicaid COMM PLAN - PLUS t MANAGED MEDICAID documented as of this encounter Advance Directives Name Relationship Healthcare Agent Communication Relationship Vee Solo Mother Primary healthcare agent Josey Schultz Other Primary healthcare agent
[2019-12-31] MEDS ORDERED: NA CHLORIDE 0.9% 1,000 ML ONE (16:28)
[2019-12-31 16:31] LABS: Absolute Lymphocytes (CBC) 3.5 K/uL (0.7-4.9); Basophils % 0.3 % (0-1.3); Hematocrit 41.8 % (36.0-45.0); Lymphocytes % 28.1 % (15.3-44.8); MPV 9.2 fL (7.6-11.3); RBC Red Blood Cell Count 5.22 M/uL (3.86-4.86)
[2019-12-31 16:46] LABS: Bilirubin Total 0.6 mg/dL (0.2-1.0); Protein, Total 7.8 g/dL (6.4-8.2)
[2019-12-31 17:12] LABS: Urine Blood TRACE (NEG); Urine Glucose NEGATIVE (NEG); Urine Protein 1+ (NEG)
[2019-12-31 17:18] LABS: Urine Bacteria 20-50 /HPF (<20); Urine Mucus 2+ /HPF (NONE SEEN)
--- NOTE | 2019-12-31 17:54 | EDPHYS ---
Physician Documentation [facility] Name: Priscilla Solo Age: 34 yrs Sex: Female : 1985 Arrival Date: 12/31/2019 Time: 14:36 Bed 17 Private MD: CESAR Physician Jerry Rodriguez HPI: 12/30 16:57 This 34 yrs old Female presents to ER via Ambulatory with complaints of jmm suprapubic pain. 16:57 The patient presents with suprapubic pain. Onset: The symptoms/episode began/occurred jmm gradually, 1 month(s) ago. Modifying factors: The symptoms are alleviated by nothing, the symptoms are aggravated by nothing. Associated signs and symptoms: Pertinent positives: urinary frequency, Pertinent negatives: fever, hematuria, vaginal bleeding. The patient has experienced similar episodes in the past. This is a 34 year old female with a history of anxiety, CHF, ADD/ADHD that presents to the ED with complaints suprapubic pain, generalized weakness beginning approx 1 month ago. Patient states feeling fatigued which she attributes to not eating today. Denies vomiting, diarrhea, painful urination. . 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 - Social history:: Smoking status: Patient/guardian denies using tobacco. ROS: 16:57 Cardiovascular: Negative for chest pain, palpitations, and edema, Respiratory: Negative jmm for shortness of breath, cough, wheezing, and pleuritic chest pain, Abdomen/GI: Negative for abdominal pain, nausea, vomiting, diarrhea, and constipation, MS/Extremity: Negative for injury and deformity, Neuro: Negative for headache, weakness, numbness, tingling, and seizure. 16:57 Constitutional: Positive for fatigue. 16:57 All other systems are negative. Exam: 16:57 Constitutional: This is a well developed, well nourished patient who is awake, alert, jmm and in no acute distress. Head/Face: atraumatic. Eyes: EOMI, no conjunctival erythema appreciated ENT: Moist Mucus Membranes Neck: Trachea midline, Supple Chest/axilla: Normal chest wall appearance and motion. Cardiovascular: Regular rate and rhythm. No edema appreciated Respiratory: Normal respirations, no respiratory distress appreciated Abdomen/GI: Non distended, soft Back: Normal ROM Skin: General appearance color normal MS/ Extremity: Moves all extremities, no obvious deformities appreciated, no edema noted to the lower extremities Neuro: Awake and alert, normal gait Psych: Behavior is normal, Mood is normal, Patient is cooperative and pleasant 16:57 ECG was reviewed by the Attending Physician. Vital Signs: 15:15 BP 138 / 93; Pulse 82; Resp 18; Temp 97.4; Pulse Ox 97% on R/A; Weight 122.47 kg (R); aj1 Height 5 ft. 1 in. (154.94 cm) (R); 16:37 BP 137 / 89; Pulse 78; Resp 18; Pulse Ox 99% on R/A; aj1 15:15 Body Mass Index 51.02 (122.47 kg, 154.94 cm) 1 MDM: 14:43 Patient medically screened. freda 17:53 Data reviewed: vital signs, nurses notes. Counseling: I had a detailed discussion with karthikeyan the patient and/or guardian regarding: the historical points, exam findings, and any diagnostic results supporting the discharge/admit diagnosis, lab results, the need for outpatient follow up, to return to the emergency department if symptoms worsen or persist or if there are any questions or concerns that arise at home. ED course: Patient is alert and non toxic in appearance in the ED. Patient advised to follow up with pcp for reevaluation. Patient understood and agrees with the plan of care. . 12/30 15:22 Order name: CBC with Diff [facility] 12/30 15:22 Order name: CMP [facility] 12/30 15:22 Order name: Lactate [facility] 12/30 15:22 Order name: Procalcitonin [facility] 12/30 15:22 Order name: Urine Microscopic Only [facility] 12/30 16:36 Order name: Urine Dipstick--Ancillary (enter results) 12/30 16:36 Order name: Urine --Ancillary (enter results) 12/30 16:45 Order name: CBC with Automated Diff; Complete Time: 16:45 EDMS 12/30 16:46 Order name: Troponin (emerg Dept Use Only) [facility] 12/30 16:47 Order name: Comprehensive Metabolic Panel; Complete Time: 16:50 EDMS 12/30 16:48 Order name: Lactate; Complete Time: 16:50 EDMS 12/30 17:00 Order name: Procalcitonin; Complete Time: 17:05 EDMS 12/30 17:13 Order name: Urine --Ancillary; Complete Time: 17:20 EDMS 12/30 17:13 Order name: Urine Dipstick-Ancillary; Complete Time: 17:20 EDMS 12/30 15:21 Order name: Urine Dipstick-Ancillary (obtain specimen); Complete Time: 16:[address] [facility] 12/30 15:21 Order name: Urine Test (obtain specimen); Complete Time: 16:[address] [facility] 12/30 15:22 Order name: EKG - Nurse/Tech; Complete Time: 16:[address] [facility] 12/30 17:18 Order name: Urine Microscopic Only; Complete Time: 17:20 EDGA 12/30 17:43 Order name: Troponin (Emerg Dept Use Only); Complete Time: 17:53 EDMS EC:57 Rate is 68 beats/min. Rhythm is regular. QRS [place] is Normal. UT interval is normal. QRS jmm interval is normal. QT interval is normal. No Q waves. T waves are Inverted in leads aVR, V1. No ST changes noted. Reviewed by me. Administered Medications: 16:35 Drug: NS 0.9% 1000 ml Route: IV; Rate: 1 bolus; Site: right antecubital; aj 19:08 Follow up: IV Status: Completed infusion; IV Intake: 1000ml aj1 Disposition: 12/31/19 17:54 Discharged to Home. Impression: Urinary tract infection, site not specified. - Condition is Stable. - Discharge Instructions: Urinary Tract Infection, Adult. - Prescriptions for Augmentin 875- 125 mg Oral Tablet - take 1 tablet by ORAL route every 12 hours for 10 days; 20 tablet. - Medication Reconciliation Form, Thank You Letter, Antibiotic Education, Prescription Opioid Use form. - Follow up: Private Physician; When: 2 - 3 days; Reason: Recheck today's complaints, Continuance of care, Re-evaluation by your physician. Addendum: 01/03/2020 07:19 Co-signature as Attending Physician, Jerry Rodriguez MD I agree with the assessment and c retana plan of care. Signatures: Dispatcher [employer] Danii Marquez, RN RN aj1 Jerry Rodriguez MD MD cha Mickail, Joel, PA PA jmm Corrections: (The following items were deleted from the chart) 12/30 19:11 17:54 12/31/2019 17:54 Discharged to Home. Impression: Urinary tract infection, site aj1 not specified. Condition is Stable. Forms are Medication Reconciliation Form, Thank You Letter, Antibiotic Education, Prescription Opioid Use. Follow up: Private Physician; When: 2 - 3 days; Reason: Recheck today's complaints, Continuance of care, Re-evaluation by your physician. karthikeyan
--- NOTE | 2019-12-31 17:54 | ER ---
Nurse's Notes [facility] Name: Priscilla Solo Age: 34 yrs Sex: Female : 1985 Arrival Date: 12/31/2019 Time: 14:36 Bed 17 Private MD: Diagnosis: Urinary tract infection, site not specified Presentation: 12/30 15:15 Chief complaint: Patient states: Suprapubic pain, nausea, and dizziness for the past aj1 month. Denies dysuria. Denies fever. Coronavirus screen: The patient has NOT traveled to a country currently being monitored by the [facility] within the last 14 days. Ebola Screen: Patient denies travel to an Ebola-affected area in the 21 days before illness onset. Initial Sepsis Screen: Does the patient meet any 2 criteria? No. Patient's initial sepsis screen is negative. Does the patient have a suspected source of infection? No. Patient's initial sepsis screen is negative. Risk Assessment: Do you want to hurt yourself or someone else? Patient reports no desire to harm self or others. 15:15 Method Of Arrival: Ambulatory aj1 15:15 Acuity: ERIC 4 aj1 15:26 Acuity: ERIC 3 iw Triage Assessment: 15:17 General: Appears in no apparent distress. Behavior is calm, cooperative, appropriate aj1 for age. Pain: Complains of pain in suprapubic area. 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 - Social history:: Smoking status: Patient/guardian denies using tobacco. Screenin:18 Abuse screen: Denies threats or abuse. Denies injuries from another. Nutritional aj1 screening: No deficits noted. Tuberculosis screening: No symptoms or risk factors identified. 19:08 Fall Risk None identified. aj1 Assessment: 15:18 General: Appears in no apparent distress. comfortable, Behavior is calm, cooperative, aj1 appropriate for age. Pain: Complains of pain in suprapubic area Pain does not radiate. Pain currently is 6 out of 10 on a pain scale. Quality of pain is described as sharp. Neuro: Level of Consciousness is awake, alert, obeys commands, Oriented to person, place, time, situation. Cardiovascular: Patient's skin is warm and dry. Respiratory: Airway is patent Respiratory effort is even, unlabored, Respiratory pattern is regular, symmetrical. GI: No signs and/or symptoms were reported involving the gastrointestinal system. : Reports suprapubic pain Denies burning with urination, urinary frequency, urgency. EENT: No signs and/or symptoms were reported regarding the EENT system. Derm: No signs and/or symptoms reported regarding the dermatologic system. Skin is pink, warm \T\ dry. normal. Musculoskeletal: No signs and/or symptoms reported regarding the musculoskeletal system. Circulation, motion, and sensation intact. 16:37 Reassessment: Patient appears in no apparent distress at this time. No changes from aj1 previously documented assessment. Patient and/or family updated on plan of care and expected duration. Pain level reassessed. Patient is alert, oriented x 3, equal unlabored respirations, skin warm/dry/pink. 17:30 Reassessment: Patient and/or family updated on plan of care and expected duration. Pain aj1 level reassessed. General: Appears in no apparent distress. comfortable, Behavior is calm, cooperative, appropriate for age. Neuro: Level of Consciousness is awake, alert, obeys commands, Oriented to person, place, time, situation. Cardiovascular: Patient's skin is warm and dry. Respiratory: Airway is patent Respiratory effort is even, unlabored, Respiratory pattern is regular, symmetrical. Derm: No signs and/or symptoms reported regarding the dermatologic system. Skin is pink, warm \T\ dry. normal. Musculoskeletal: Circulation, motion, and sensation intact. 18:30 Reassessment: Patient appears in no apparent distress at this time. No changes from aj1 previously documented assessment. Patient and/or family updated on plan of care and expected duration. Pain level reassessed. Patient is alert, oriented x 3, equal unlabored respirations, skin warm/dry/pink. Vital Signs: 15:15 BP 138 / 93; Pulse 82; Resp 18; Temp 97.4; Pulse Ox 97% on R/A; Weight 122.47 kg (R); aj1 Height 5 ft. 1 in. (154.94 cm) (R); 16:37 BP 137 / 89; Pulse 78; Resp 18; Pulse Ox 99% on R/A; aj1 15:15 Body Mass Index 51.02 (122.47 kg, 154.94 cm) aj1 ED Course: 14:36 Patient arrived in ED. iw 14:38 Lupillo Martínez PA is PHCP. [facility] 14:38 Jerry Rodriguez MD is Attending Physician. [facility] 15:14 Danii Pablo, RN is Primary Nurse. aj1 15:16 Triage completed. aj1 15:17 Arm band placed on. aj1 15:18 Patient has correct armband on for positive identification. Bed in low position. Call [facility] light in reach. Side rails up X 1. 15:18 No provider procedures requiring assistance completed. aj1 16:21 Initial lab(s) drawn, by id, sent to lab. Urine collected: clean catch specimen, [facility] cloudy, tea colored. Inserted saline lock: 22 gauge in right antecubital area, using aseptic technique. Blood collected. 19:08 IV discontinued, intact, bleeding controlled, No redness/swelling at site. Pressure aj1 dressing applied. Administered Medications: 16:35 Drug: NS 0.9% 1000 ml Route: IV; Rate: 1 bolus; Site: right antecubital; aj1 19:08 Follow up: IV Status: Completed infusion; IV Intake: 1000ml aj Intake: 19:08 IV: 1000ml; Total: 1000ml. aj Outcome: 17:54 Discharge ordered by . [facility] 19:09 Discharged to home ambulatory. aj1 19:09 Condition: good 19:09 Discharge instructions given to patient, Instructed on discharge instructions, follow up and referral plans. medication usage, Demonstrated understanding of instructions, follow-up care, medications, Prescriptions given X 1. 19:11 Patient left the ED. aj1 Signatures: Ezra Mondragon jb1 Danii Pablo, RN RN [facility] Lupillo Martínez PA PA jmm Williams, Irene, MARE RN iw
[2019-12-31 19:19] VITALS: TEMP 97.4
[2019-12-31 19:21] VITALS: BP 137/89; O2SAT 99
--- NOTE | 2020-01-01 09:21 | EKG ---
Test Date: 2019-12-31 Test Time: 15:58:11 Material Stockkeeper Yard: MEASUREMENT RESULTS: Intervals: Rate: 68 [place]: 156 QRSD: 78 QT: 396 QTc: 421 [place]: P: 49 [place]: 156 QRS: 52 T: 63 INTERPRETIVE STATEMENTS: Sinus rhythm with sinus arrhythmia with occasional premature ventricular complexes Cannot rule out Anterior infarct, age undetermined Abnormal ECG Compared to ECG 12/31/2019 15:57:35 No significant changes Electronically Signed On 01-01-20 09:20:31 MARKETING CONTENT MANAGER by Kev Oneil
--- NOTE | 2020-01-01 09:21 | EKG ---
Test Date: 2019-12-31 Test Time: 15:57:35 Quenching Car Operator: MEASUREMENT RESULTS: Intervals: Rate: 78 [place]: 154 QRSD: 76 QT: 380 QTc: 433 [place]: P: 57 [place]: 154 QRS: 49 T: 60 INTERPRETIVE STATEMENTS: Sinus rhythm with sinus arrhythmia with frequent premature ventricular complexes Cannot rule out Anterior infarct, age undetermined Abnormal ECG No previous ECG available for comparison Electronically Signed On 01-01-20 09:20:34 MOWER SHARPENER by Kev Oneil
== END 2019-12-31 19:11 | disposition home or self-care (01) ==
LOC: ER 14:26
DX: N39.0 Urinary tract infection, site not specified (principal); F41.9 Anxiety disorder, unspecified
CPT/HCPCS: 96361; 93005 ×2; 87088; 85025; 87086; 36415; 81025; 83605; 84484; 80053; 84145; 96360; 99284; J7030; 81003; 81015

== ENCOUNTER 2020-08-29 13:15 | Emergency (ER) | payer OTHER ==
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
--- OUTSIDE RECORDS SUMMARY | 2020-08-29 14:00 | XMS REPORT | Summary of Care ---
:1985 Author Organization [facility] Address [address] [place] [address] Care Team Providers Name Role Phone Ashley Floyd Insurance Hmo Ashley Floyd Primary Care Provider Reason for Referral Radiology Services (Routine) Status Reason Specialty Diagnoses / Referred By Referred To Procedures Contact Contact New Request Diagnostic Diagnoses Wrist pain, left Ezra Whyte, Radiology Procedures XR WRIST 3+ VW LEFT [address] [place] [phone] Reason for Visit Radiology Services (Routine) Status Reason Specialty Diagnoses / Referred By Referred To Procedures Contact Contact New Request Diagnostic Diagnoses Wrist pain, left Ezra Whyte, Radiology Procedures XR WRIST 3+ VW LEFT [address] [place] [address] Encounter Details Date Type Department Care Team Description 05/31/2020 Hospital Encounter [facility] Ezra Jensen ace, MD Arrived [facility] [address] [place] [address] [place] [address] [phone] Allergies Active Allergy Reactions Severity Noted Date Comments Latex Rash 12/11/2017 documented as of this encounter (statuses as of 06/01/2020) Medications Medication Sig Dispensed Refills Start Date End Date Status traZODONE 50 mg tablet TAKE 1 TABLET BY 1 03/04/2019 Active MOUTH EVERYDAY AT BEDTIME escitalopram oxalate TAKE 1 TABLET BY 1 03/04/2019 Active 10 mg tablet MOUTH EVERY [...] # 16-02 80 Any questions please contact: John Manley MD [phone] Natalie Hightower MD [phone] Moises Frias MD [phone] Quick facts ? Patient randomized after delivery if t tracy met inclusion criteria a nd accepted ? Medication comes from [facility] not pharmacy , [facility]S Phone Number Ext. [phone] or cell ? Patient can start meds as soon as they tolerate PO ? One tab per day of either placebo or H CTZ ? Medication stays with patient ? Medication will appear on DEC, Nurses need to randy as given (No barcode) ? Medication needs to counted prior to d ischarge by research support team assoc ? All follow ups need to be on POD or PP day # 14 or more ? Patient needs to be reminded to bring their left over medication and bottle back to their visit ? IDS needs to be notified at time of di scharchepe ? Please contact Dr. 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 But never evaluated. 06/23/15 [place] Card Stress test- negative. H olter- Sinus rhythm with mild ectopy (35 isolated SVT) 06/21/15 Echo- EF=> 55%, no wall motion abnl, Mild MR, mild PVR Morbid obesity 09/06/2015 05/20/2017 Previous delivery affecting , antepartum 1 11/06/2014 04/11/2016 Overview: Prev x1 [facility]- Dr Bailey for ar rest of descent- Transverse incision in lowers egment-"extended laterally and benito periorly" ; desire TOLAC HSV infection 09/06/2015 [...] Treatment Date Type Specialty Care Team Description 06/19/2020 Office Visit Orthopedic Surgery Nba Whyte MD [address] [place] [address] [phone] Health Maintenance Due Date Last Done Comments PAP SMEAR 05/20/2020 05/20/2017, 05/18/2014 INFLUENZA VACCINE (#1) 2020 10/16/2017 Depression Screening 03/16/2021 03/16/2020 DTaP,Tdap,and Td Vaccines (4 - Td) 10/16/2027 10/16/2017, 0 01/18/2016, 05/18/2014 PNEUMOCOCCAL 0-64 YEARS COMBINED Completed 05/11/2008 SERIES documented as of this encounter Procedures Procedure Name Priority Date/Time Associated Diagnosis Comme nts XR WRIST 3+ VW LEFT Routine 05/31/2020 2:46 PM Wrist pain, le ft Results for this CDT procedure are i n the results section. documented in this encounter Results XR WRIST 3+ VW [...] encounter Visit Diagnoses Diagnosis Wrist pain, left Pain in joint, forearm documented in this encounter Insurance Payer Benefit Plan / Subscriber ID Effective Dates Phone Addre ss Type Group [facility] [id number] 2012-[place] Medicaid COMM PLAN - PLUS t MANAGED MEDICAID [id number] 1 documented as of this encounter Advance Directives Name Relationship Healthcare Agent Communication Relationship Vee Solo Mother Health Care Agent [phone] ( Mobile) Josey Schultz Other Health Care Agent
--- OUTSIDE RECORDS SUMMARY | 2020-08-29 14:00 | XMS REPORT | Summary of Care ---
:1985 Author Organization [facility] Address [address] [place] [id number] Care Team Providers Name Role Phone Ashley Floyd Insurance Hmo Ashley Floyd Primary Care Provider Reason for Referral Radiology Services (Routine) Status Reason Specialty Diagnoses / Referred By Referred To Procedures Contact Contact New Request Diagnostic Diagnoses Wrist pain, left Ezra Whyte, Radiology Procedures XR WRIST 3+ VW LEFT [address] [place], [place] [id number] Reason for Visit Reason Comments New Patient left wrist Encounter Details Date Type Department Care Team Description 05/31/2020 Office Visit [facility] Ezra Whyte MD Wrist pain, left (Primary Dx); Orthopaedic Surgery- [address] [place] [address] 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 Patient randomized after delivery if t tracy met inclusion criteria a nd accepted ? Medication comes from [facility] not pharmacy , [facility] Phone Number Ext. [phone] or cell ? Patient can start meds as soon as they tolerate PO ? One tab per day of either placebo or H CTZ ? Medication stays with patient ? Medication will appear on DEC, Nurses need to randy as given (No barcode) ? Medication needs to counted prior to d ischarge by research team driver ? All follow ups need to be on POD or PP day # 14 or more ? Patient needs to be reminded to bring their left over medication and bottle back to their visit ? [facility]S needs to be notified at time of di addierchepe ? Please contact Dr. 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 But never evaluated. 06/23/15 [place] Card Stress test- negative. H olter- Sinus rhythm with mild ectopy (35 isolated SVT) 06/21/15 Echo- EF=> 55%, no wall motion abnl, Mild MR, mild PVR Morbid obesity 09/06/2015 05/20/2017 Previous delivery affecting , antepartum 1 11/06/2014 04/11/2016 Overview: Prev x1 [facility]- Dr Bailey for ar rest of descent- Transverse incision in lowers egment-"extended laterally and benito periorly" ; desire TOLAC HSV infection 09/06/2015 04/11/2016 Rubella immune 05/19/2014 09/06/2015 Anxiety 05/18/2014 01/27/2018 Hypertension 05/18/2014 11/30/2015 Dysmenorrhea 05/18/2014 09/06/2015 Other dyspnea and respiratory abnormality 07/22/2007 05/18/2014 documented as of this encounter (statuses as of 05/31/2020) Immunizations Name Administration Dates Next Due Influenza [...] make a plan for surgery 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, 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, 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 Relieving factors: rest NSAIDs but [...] Ken Saeed; Location: Labor and Delivery - [place] SECTION N/A 12/12/2017 Surgeon: Santa Holland MD; Location: Labor and Delivery - [place] TUBAL LIGATION Bilateral 12/12/2017 Surgeon: Santa Holland MD; Location: Labor and Delivery - [place] Medications: Current Outpatient Medications: azithromycin 250 mg [...] file Gets together: Not on file Attends restorationist service: Not on file Active member of [...] tight or new jar.: 5 Do heavy director trial.: 5 Carry a shopping bag or briefcase.: [...] Office Visit Orthopedic Surgery Nba Whyte MD [address] [place] [address] [phone] Health Maintenance Due Date Last Done Comments [...] Effective Dates Phone Addre ss Type Group [facility] [id number] 2012-[facility] Medicaid COMM PLAN - PLUS t MANAGED MEDICAID [id number] 1 documented as of this encounter Advance Directives Name Relationship Healthcare Agent Communication Relationship Vee Solo Mother Health Care Agent [phone] ( Mobile) Josey Schultz Other Health Care Agent
--- OUTSIDE RECORDS SUMMARY | 2020-08-29 14:00 | XMS REPORT | Summary of Care ---
:1985 Author Organization [facility] Address [address] [place] [address] Care Team Providers Name Role Phone Ashley Floyd Insurance Hmo Ashley Floyd Primary Care Provider Reason for Referral Radiology Services (Routine) Status Reason Specialty Diagnoses / Referred By Referred To Procedures Contact Contact New Request Diagnostic Diagnoses Wrist pain, left Ezra Whyte, Radiology Procedures XR WRIST 3+ VW LEFT [address] [place], [place] [id number] Reason for Visit Reason Comments New Patient left wrist Encounter Details Date Type Department Care Team Description 05/31/2020 Office Visit [facility] Ezra Whyte MD Wrist pain, left (Primary Dx); Orthopaedic Surgery- [address] [place] [address] 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 Patient randomized after delivery if t tracy met inclusion criteria a nd accepted ? Medication comes from [facility] not pharmacy , [facility] Phone Number Ext. [phone] or cell ? Patient can start meds as soon as they tolerate PO ? One tab per day of either placebo or H CTZ ? Medication stays with patient ? Medication will appear on DEC, Nurses need to randy as given (No barcode) ? Medication needs to counted prior to d ischarge by research nut steamer ? All follow ups need to be on POD or PP day # 14 or more ? Patient needs to be reminded to bring their left over medication and bottle back to their visit ? [facility]S needs to be notified at time of di addierchepe ? Please contact Dr. 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 But never evaluated. 06/23/15 [place] Card Stress test- negative. 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 Relieving factors: rest NSAIDs but [...] Ken Saeed; Location: Labor and Delivery - [place] SECTION N/A 12/12/2017 Surgeon: Santa Holland MD; Location: Labor and Delivery - [place] TUBAL LIGATION Bilateral 12/12/2017 Surgeon: Santa Holland MD; Location: Labor and Delivery - [place] Medications: Current Outpatient Medications: azithromycin 250 mg [...] file Gets together: Not on file Attends synagogue service: Not on file Active member of [...] tight or new jar.: 5 Do heavy senior compliance officer.: 5 Carry a shopping bag or briefcase.: [...] Office Visit Orthopedic Surgery Nba Whyte MD [address] [place] [address] [phone] Health Maintenance Due Date Last Done Comments [...] Effective Dates Phone Addre ss Type Group [facility] [id number] 2012-[facility] Medicaid COMM PLAN - PLUS t MANAGED MEDICAID [id number] 1 documented as of this encounter Advance Directives Name Relationship Healthcare Agent Communication Relationship Vee Solo Mother Health Care Agent [phone] ( Mobile) Josey Schultz Other Health Care Agent
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
--- OUTSIDE RECORDS SUMMARY | 2020-08-29 14:00 | XMS REPORT | Summary of Care ---
:1985 Author Organization [facility] Address [address] [place] [id number] Care Team Providers Name Role Phone Ashley Floyd Insurance Hmo Ashley Floyd Primary Care Provider Reason for Referral (Routine) Status Reason Specialty Diagnoses / Referred By Referred To Procedures Contact Contact New Request Diagnostic Diagnoses Pain pelvic Canas, Radiology Procedures GYNECOLOGIC ULTRASOUND, PELVIC ULTRASOUND Which clinic location? [facility] [address] [place] [address] Reason for Visit Reason Comments Well Woman Exam Encounter Details Date Type Department Care Team Description 06/05/2020 Office Visit [facility] Canas Well woman exam (Primary Dx); DENITA Becerra Encounter for contraceptive management, unspecified type; [address] [place] [address] History o f bilateral tubal ligation; [address] [place] Pain pelvic; [place], [place] [address] Yeast infection of the skin; [id number] Screening examination for STD (sexually transmitted disease); [phone] History o f asthma; Depression, uns pecified [...] Any questions please contact: John Manley MD [phone] Natalie Hightower MD [phone] Moises Frias MD [phone] Quick facts ? Patient randomized after delivery if t terryy met inclusion criteria a nd accepted ? Medication comes from [facility] not pharmacy , [facility] Phone Number Ext. [phone] or cell ? Patient can start meds as soon as they tolerate PO ? One tab per day of either placebo or H CTZ ? Medication stays with patient ? Medication will appear on DEC, Nurses need to randy as given (No barcode) ? Medication needs to counted prior to d ischarge by research associate team physician ? All follow ups need to be [...] 05/18/2014 Asthma 05/18/2014 Overview: ICD10 Diagnosis Term Litigation Docket Manager Utility documented as of this encounter (statuses [...] had "leaky valves". But never evaluated. 06/23/15 [place] Card Stress test- negative. H olter- Sinus rhythm with mild ectopy (35 isolated SVT) 06/21/15 Echo- EF=> 55%, no wall motion abnl, Mild MR, mild PVR Morbid obesity 09/06/2015 05/20/2017 Previous delivery affecting , antepartum 1 11/06/2014 04/11/2016 Overview: Prev x1 [facility]- Dr Bailey for ar rest of descent- [...] This exam may be done by a skeins yarn examiner, family healthcare provider, nurse practitioner, nurse front office supervisor, or specially trained nurse. Yearly breast exams [...] Guidelines for having clinical breast exams The [employer] recommends that [...] provider about what is best for you. [employer] last reviewed this educational content on 05/27/201719993836-1378 The [employer]. [address] [place] [address]. All rights reserved. This information is not [...] breast self-examination (BSE). These experts include the [employer] and the [employer] Gynec[employer]. Some experts [...] benign. This means they are not cancer. [employer] last reviewed this educational content on 05/27/201719990091-6753 The [employer]. [address] [place] [address]. All rights reserved. This information is not [...] 20s.But the USPSTF does not recommend CBE. [employer] last reviewed this educational content on 07/27/201719992584-1085 [employer]. [address] [place] [address]. All rights reserved. This information is not [...] can make now to protect your future. [employer] last reviewed this educational content on 09/26/201819999974-3634 The [employer]. [address] [place] [address], [place] [address]. All rights reserved. This information is not [...] her child during , childbirth, and . [employer] last reviewed this educational content on 03/27/201919996589-0226 [employer]. [address] [place] [address], [place] [address]. All rights reserved. This information is not [...] try basil, cilantro, cinnamon, pepper, and rod. [employer] last reviewed this educational content on 07/27/201719993569-8353 [employer]. [address] [place] [address]. All rights reserved. This information is not [...] get this muchfrom the food you eat. [employer] last reviewed this educational content on 05/27/201719993692-0524 [employer]. [address] [place] [address], [place] [address]. All rights reserved. This information is not intended as a substitute for professional medical care. Always follow your healthcare professional's instructions. documented in this encounter Progress Notes Casie Canas, FRAME TABLE OPERATOR - 06/05/2020 12:45 PM CDT Chief complaint: [...] of Onset Coronary Heart Disease Maternal Grandmother [place] at 50 yo. Breast Cancer Maternal Grandmother [...] Ken Saeed; Location: Labor and Delivery - [place] SECTION N/A 12/12/2017 Surgeon: Santa Holland MD; Location: Labor and Delivery - [place] TUBAL LIGATION Bilateral 12/12/2017 Surgeon: Santa Holland MD; Location: Labor and Delivery - [facility] [place] Social History Socioeconomic History Marital status: Single [...] file Gets together: Not on file Attends yarsani service: Not on file Active member of [...] age. Normal hair distribution. No labial lesion. Hadoop Architect present for the exam: CÉSAR Myrick Vagina:Normal [...] GYNECOLOGIC ULTRASOUND, PELVIC ULTRASOUND Which clinic location? [place] Yeast infection of the skin Comment: unde [...] 2) Desired BCM:BTL 3) LMP:05/10/2020 4) Last [place]:05/09/2020 5) Last Pap:05/20/2017 Results:negative 6) Tdap in [...] Office Visit Orthopedic Surgery Nba Whyte MD [address] [place], [place] [id number] Name Type Priority Associated Diagnoses Date/Ti me [...] red: 06/05/2020 PELVIC ULTRASOUND Which clinic location? [facility] Due Date Last Done Comments PAP SMEAR [...] Effective Dates Phone Addre ss Type Group [facility] [id number] 2012-[facility] Medicaid COMM PLAN - PLUS t MANAGED MEDICAID [id number] 1 documented as of this encounter Advance Directives Name Relationship Healthcare Agent Communication Relationship Vee Germania Mother Health Care Agent [phone] ( Mobile) Josey Schultz Other Health Care Agent
--- OUTSIDE RECORDS SUMMARY | 2020-08-29 14:00 | XMS REPORT | Continuity of Care Document ---
:1985 Author Organization [facility] t Address [address] [place] [address] Care Team Providers Name Role Phone Isabell LATIF Attending Clinician Bishop GARVEY Attending Clinician Unavailable Karthik LATIF, Joe Attending Clinician Doctor Unassigned, Name Attending Clinician Unavailable Only, Test Attending Clinician Unavailable Isabell LATIF Admitting Clinician Problems This patient has no known problems. Allergies, Adverse Reactions, Alerts This patient has no known allergies or adverse reactions. Medications This patient has no known medications. Procedures This patient has no known procedures. Encounters Start End Encounter Admission Attending Care Care Encounter Source Date/Time Date/Time Type Type Clinicians Facility Department ID 2020-08-09 2020-08-09 Telephone JOYR Whyte [id number] 00:00:00 00:00:00 [facility] [id number] [facility] [id number] MIZE AT [id number] [place] [address] [place] [address] 2020-08-04 2020-08-04 [facility] Isabell ARFRANCIE [id number] 11:12:00 17:25:00 Encounter [facility], [facility] [id number] [facility] 4.2.7.2.686 [facility] [phone] [address] ([facility]) 2020-08-04 2020-08-04 Anesthesia Ashley Alas [facility] [id number] .[id number] 14:32:00 15:44:00 [facility] [id number] [facility] [id number] MIZE AT [id number] BRADLEY Alvarez [facility] 2020-08-04 2020-08-04 Orders Doctor TOREY [id number] 00:00:00 00:00:00 Only Unassigned, LUZ [id number] [place] [facility] [id number] 2020-08-03 2020-08-03 Laboratory Only, [facility] [id number] 14:49:11 15:04:01 Only Test Harjeet [id number] [place] [id number] [place] [id number] Results This patient has no known results.
--- OUTSIDE RECORDS SUMMARY | 2020-08-29 14:01 | XMS REPORT | Summary of Care ---
:1985 Author Organization [facility] Address [address] [place] [address] Care Team Providers Name Role Phone Ashley Floyd Insurance Hmo Ashley Floyd Primary Care Provider Reason for Visit Reason Comments Results Encounter Details Date Type Department Care Team Description 06/12/2020 Telephone [facility]- A Casie Aguayo, BELL CLERK Results 1108 [facility] S [facility] [address] [place] [address] [address] [place] [address] [phone] Allergies Active Allergy Reactions Severity Noted Date Comments Latex Rash 12/11/2017 documented as of this encounter (statuses as of 06/12/2020) Medications Medication Sig Dispensed Refills Start Date [...] 160-4.5 0 02/03/2020 A ctive mcg/actuation inhaler nystatin-triamcinolone Apply to area(s) 15 g 1 0 Active creamIndications: 3 (three) times Yeast infection of the daily. skin documented as of this encounter (statuses as of 06/12/2020) Active Problems Patient Care Coordination Note LTCS [...] Any questions please contact: John Manley MD [phone] Natalie Hightower MD [phone] Moises Frias MD [phone] Quick facts ? Patient randomized after delivery if t terryy met inclusion criteria a nd accepted ? Medication comes from IDS not pharmacy , IDS Phone Number Ext. [phone] or cell ? Patient can start meds as soon as they tolerate PO ? One tab per day of either placebo or H CTZ ? Medication stays with patient ? Medication will appear on DEC, Nurses need to randy as given (No barcode) ? Medication needs to counted prior to d ischarge by research sales team leader ? 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 But never evaluated. 06/23/15 [place] Card Stress test- negative. H olter- Sinus rhythm with mild ectopy (35 isolated SVT) 06/21/15 Echo- EF=> 55%, no wall motion abnl, Mild MR, mild PVR Morbid obesity 09/06/2015 05/20/2017 Previous delivery affecting , antepartum 1 11/06/2014 04/11/2016 Overview: Prev x1 [facility]- Dr Bailey for ar rest of descent- Transverse incision in lowers egment-"extended laterally and benito periorly" ; desire TOLAC HSV infection 09/06/2015 04/11/2016 Rubella immune 05/19/2014 09/06/2015 Anxiety 05/18/2014 01/27/2018 Hypertension 05/18/2014 11/30/2015 Dysmenorrhea 05/18/2014 09/06/2015 Other dyspnea and respiratory abnormality 07/22/2007 05/18/2014 documented as of this encounter (statuses as of 06/12/2020) Immunizations Name Administration Dates Next Due Influenza [...] Signs Not on filedocumented in this encounter Miscellaneous Notes Telephone Encounter - Casie Canas FNP - 06/12/2020 4:10 PM CDTPlease confirm if labs results were canceled If they were canceled, Why? Patient may need to come infor lab only visit. elephone Encounter - Martine Draper LVN - 06/12/2020 3:56 PM CDTPriscilla Lexy Solo is a 35 year old female Patient is wanting her lab results for gc&chalmydia. documented in this encounter Plan of Treatment Date Type Specialty Care Team Description 06/19/2020 Office Visit Orthopedic Surgery Nba Whyte MD [address] [place] [address] 06/21/2020 Office Visit Obstetrics & Gynecology Jhony Frias MD [address] [place] [address] [phone] , [facility] Us Room Health Maintenance Due Date Last Done Comments [...] Effective Dates Phone Addre ss Type Group [facility] [id number] 2012-[facility] Medicaid COMM PLAN - PLUS t MANAGED MEDICAID documented as of this encounter Advance Directives Name Relationship Healthcare Agent Communication Relationship Vee Solo Mother Health Care Agent [phone] ( Mobile) Josey Schultz Other Health Care Agent [phone] ([place])
--- OUTSIDE RECORDS SUMMARY | 2020-08-29 14:01 | XMS REPORT | Summary of Care ---
:1985 Author Organization [facility] Address [address] [place] [address] Care Team Providers Name Role Phone Ashley Floyd Insurance Hmo Ashley Floyd Primary Care Provider Reason for Visit Reason Comments Results Encounter Details Date Type Department Care Team Description 06/12/2020 Telephone [facility] RMCHP- A Casie Aguayo, REIMBURSEMENT SPEC Results 1108 [facility] S [facility] [address] [place] [address] [address] [place] [address] [phone] Allergies Active Allergy Reactions Severity Noted Date Comments Latex Rash 12/11/2017 documented as of this encounter (statuses as of 06/13/2020) Medications Medication Sig Dispensed Refills Start Date [...] as of this encounter (statuses as of 06/13/2020) Active Problems Patient Care Coordination Note LTCS [...] Any questions please contact: John Manley MD [phone] Natalie Hightower MD [phone] Moises Frias MD [phone] Quick facts ? Patient randomized after delivery if t terryy met inclusion criteria a nd accepted ? Medication comes from IDS not pharmacy , IDS Phone Number Ext. [phone] or cell ? Patient can start meds as soon as they tolerate PO ? One tab per day of either placebo or H CTZ ? Medication stays with patient ? Medication will appear on DEC, Nurses need to randy as given (No barcode) ? Medication needs to counted prior to d ischarge by research steam setter ? 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 But never evaluated. 06/23/15 [place] Card Stress test- negative. H olter- Sinus rhythm with mild ectopy (35 isolated SVT) 06/21/15 Echo- EF=> 55%, no wall motion abnl, Mild MR, mild PVR Morbid obesity 09/06/2015 05/20/2017 Previous delivery affecting , antepartum 1 11/06/2014 04/11/2016 Overview: Prev x1 [facility]- Dr Bailey for ar rest of descent- Transverse incision in lowers egment-"extended laterally and benito periorly" ; desire TOLAC HSV infection 09/06/2015 04/11/2016 Rubella immune 05/19/2014 09/06/2015 Anxiety 05/18/2014 01/27/2018 Hypertension 05/18/2014 11/30/2015 Dysmenorrhea 05/18/2014 09/06/2015 Other dyspnea and respiratory abnormality 07/22/2007 05/18/2014 documented as of this encounter (statuses as of 06/13/2020) Immunizations Name Administration Dates Next Due Influenza [...] this encounter Miscellaneous Notes Telephone Encounter - Martine Draper LVN - 06/13/2020 9:29 AM CDTPatient contacted via DailyWortht. elephone Encounter - Casie Canas FNP - 06/13/2020 7:30 AM CDTI never cancel labs. So please call the lab or consult with the MAs to see why was it canceled. elephone Encounter - Casie Canas FNP - 06/12/2020 4:10 PM CDTPlease confirm if labs results were canceled If they were canceled, Why? Patient may need to come infor lab only visit. Telephone Encounter - Martine Draper LVN - 06/12/2020 3:56 PM CDTKathy Lexy Solo is a 35 year old female Patient is wanting her lab results for gc&chalmydia. documented in this encounter Plan of Treatment Date Type Specialty Care Team Description 06/19/2020 Office Visit Orthopedic Surgery Nba Whyte MD [address] [place] [address] 06/21/2020 Office Visit Obstetrics & Gynecology Jhony Frias MD [address] [place] [address] 4, [facility] Usg Room Health Maintenance Due Date Last Done [...] [facility] [id number] 2012-[facility] Medicaid COMM PLAN - PLUS t MANAGED MEDICAID documented as of this encounter Advance Directives Name Relationship Healthcare Agent Communication Relationship Vee Solo Mother Health Care Agent [phone] ( Mobile) Josey Schultz Other Health Care Agent
--- OUTSIDE RECORDS SUMMARY | 2020-08-29 14:01 | XMS REPORT | Summary of Care ---
:1985 Author Organization [facility] Address [address] [place] [address] Care Team Providers Name Role Phone Ashley Floyd Insurance Hmo Ashley Floyd Primary Care Provider Reason for Referral (Routine) Status Reason Specialty Diagnoses / Referred By Referred To Procedures Contact Contact New Request Diagnostic Diagnoses Pain pelvic Canas, Radiology Procedures GYNECOLOGIC ULTRASOUND, PELVIC ULTRASOUND Which clinic location? [facility] [address] [place] [address] Reason for Visit Reason Comments Well Woman Exam Encounter Details Date Type Department Care Team Description 06/05/2020 Office Visit [facility]- Casie Canas Well woman exam (Primary Dx); [facility] [place] Encounter for contraceptive management, unspecified type; [address] [place] [address] History o f bilateral tubal ligation; [address] [place] Pain pelvic; [place], [place] [address] Yeast infection of the skin; [id number] Screening examination for STD (sexually transmitted disease); [phone] History o f asthma; Depression, uns pecified depression type; Morbid obesity; BMI 50.0-59.9, adult Allergies Active Allergy Reactions Severity Noted Date Comments Latex Rash 12/11/2017 documented as of this encounter (statuses as of 06/14/2020) Medications Medication Sig Dispensed Refills Start Date [...] as of this encounter (statuses as of 06/14/2020) Active Problems Patient Care Coordination Note LTCS [...] Any questions please contact: John Manley MD [phone] Natalie Hightower MD [phone] Moises Frias MD [phone] Quick facts ? Patient randomized after delivery if t terryy met inclusion criteria a nd accepted ? Medication comes from IDS not pharmacy , IDS Phone Number Ext. [phone] or cell ? Patient can start meds as soon as they tolerate PO ? One tab per day of either placebo or H CTZ ? Medication stays with patient ? Medication will appear on DEC, Nurses need to randy as given (No barcode) ? Medication needs to counted prior to d ischarge by research instrument repairer steam plant ? All follow ups need to be [...] 05/18/2014 Asthma 05/18/2014 Overview: ICD10 Diagnosis Term Geomagnetician Utility documented as of this encounter (statuses as of 06/14/2020) Resolved Problems Problem Noted Date Resolved Date [...] had "leaky valves". But never evaluated. 06/23/15 [place] Card Stress test- negative. H olter- Sinus rhythm with mild ectopy (35 isolated SVT) 06/21/15 Echo- EF=> 55%, no wall motion abnl, Mild MR, mild PVR Morbid obesity 09/06/2015 05/20/2017 Previous delivery affecting , antepartum 1 11/06/2014 04/11/2016 Overview: Prev x1 [facility]- Dr Bailey for ar rest of descent- Transverse incision in lowers egment-"extended laterally and benito periorly" ; desire TOLAC HSV infection 09/06/2015 04/11/2016 Rubella immune 05/19/2014 09/06/2015 Anxiety 05/18/2014 01/27/2018 Hypertension 05/18/2014 11/30/2015 Dysmenorrhea 05/18/2014 09/06/2015 Other dyspnea and respiratory abnormality 07/22/2007 05/18/2014 documented as of this encounter (statuses as of 06/14/2020) Immunizations Name Administration Dates Next Due Influenza [...] This exam may be done by a regional telecommunications specialist, family healthcare provider, nurse practitioner, nurse insurance compliance analyst, or specially trained nurse. Yearly breast exams [...] Guidelines for having clinical breast exams The [employer] recommends that [...] provider about what is best for you. [employer] last reviewed this educational content on 05/27/201719995249-45[address] [employer] [place] [address]. All rights reserved. This information is not [...] breast self-examination (BSE). These experts include the [employer] and the [place] [employer] Gynec[employer]. Some experts [...] benign. This means they are not cancer. [employer] last reviewed this educational content on 05/27/201719991245-9496 [employer]. [address] [place] [address]. All rights reserved. This information is not [...] 20s.But the USPSTF does not recommend CBE. [employer] last reviewed this educational content on 07/27/201719993738-2013 [employer]. [address] [place] [address]. All rights reserved. This information is not [...] can make now to protect your future. [employer] last reviewed this educational content on 09/26/201819990607-9170 [employer]. [address] [place] [address], [place] [address]. All rights reserved. This information is not [...] her child during , childbirth, and . [employer] last reviewed this educational content on 03/27/201919995552-7927 [employer]. [address] [place] [address], [place] [address]. All rights reserved. This information is not [...] try basil, cilantro, cinnamon, pepper, and rod. [employer] last reviewed this educational content on 07/27/201719993592-5199 [employer]. [address] [place] [address]. All rights reserved. This information is not [...] get this muchfrom the food you eat. [employer] last reviewed this educational content on 05/27/201719999210-6383 [employer]. [address] [place] [address], [place] [address]. All rights reserved. This information is not intended as a substitute for professional medical care. Always follow your healthcare professional's instructions. documented in this encounter Progress Notes Casie Canas, HAIR DESIGNER - 06/05/2020 12:45 PM CDT Chief complaint: [...] of Onset Coronary Heart Disease Maternal Grandmother [place] at 50 yo. Breast Cancer Maternal Grandmother [...] Ken Saeed; Location: Labor and Delivery - [place] SECTION N/A 12/12/2017 Surgeon: Santa Holland MD; Location: [facility] Delivery - [place] TUBAL LIGATION Bilateral 12/12/2017 Surgeon: Santa Holland MD; Location: Labor and Delivery - [facility] [place] Social History Socioeconomic History Marital status: Single [...] file Gets together: Not on file Attends congregational service: Not on file Active member of [...] age. Normal hair distribution. No labial lesion. Oil Scout present for the exam: CÉSAR Myrick Vagina:Normal [...] GYNECOLOGIC ULTRASOUND, PELVIC ULTRASOUND Which clinic location? [place] Yeast infection of the skin Comment: unde [...] 2) Desired BCM:BTL 3) LMP:05/10/2020 4) Last [place]:05/09/2020 5) Last Pap:05/20/2017 Results:negative 6) Tdap in [...] Office Visit Orthopedic Surgery Nba Whyte MD [address] [place], [place] [address] 06/21/2020 Office Visit Obstetrics & Gynecology Jhony Frias MD [address] [place] [id number] 4, [facility] Mf Usg Room Name Type Priority Associated Diagnoses Order S chedule GYNECOLOGIC ULTRASOUND, PROCEDURES Routine Pain pelvic Orde red: 06/05/2020 PELVIC ULTRASOUND Which clinic location? [facility] Due Date Last Done Comments PAP SMEAR 05/20/2020 05/20/2017, 05/18/2014 INFLUENZA VACCINE (#1) 2020 10/16/2017 Depression Screening 03/16/2021 03/16/2020 DTaP,Tdap,and Td Vaccines (4 - Td) 10/16/2027 10/16/2017, 0 01/18/2016, 05/18/2014 PNEUMOCOCCAL 0-64 YEARS COMBINED Completed 05/11/2008 SERIES documented as of this encounter Procedures Procedure Name Priority Date/Time Associated Diagnosis Comme nts [facility] ONLY - Routine 06/05/2020 2:04 PM Screening Results for this SYPHILIS IGG/IGM CDT examination for STD proc edure are in (sexually the results transmitted disease) section . HIV 1/2 AG-AB WITH Routine 06/05/2020 2:04 PM Screening Re sults for this REFLEX CDT examination for STD procedur e are in (sexually the results transmitted disease) section . documented in this encounter Results HIV 1/2 AG-AB WITH REFLEX (06/05/2020 2:04 PM CDT) Pathologist Sig nature HIV 1/2 Ag-Ab with Negative Negative [facility] Reflex SERVICES HIV Semi-quantitative 0.10 [facility] Specimen Blood - ARM, LEFT Narrative Performed At Non-reactive for HIV-1 antigen and HIV-1/HIV-2 antibod ies. [facility] No laboratory evidence of HIV infection. Repeat in 2-4 weeks if acute HIV infection is suspected. Performing Organization Address City/State/Zipcode Phone Number [facility] CLIA: [id number] [place] [address] [place] [address] GALV ONLY - SYPHILIS IGG/IGM (06/05/2020 2:04 PM CDT) Pathologist Sig nature Syphilis IgG/IgM Non-reactive Non-reactive [facility] Specimen Blood - ARM, LEFT Narrative Performed At [facility] Non-reactive - No serologic evidence of T. pallidum infection. Cannot exclude incubating or early syphilis . Submit a second specimen in 2-4 weeks if syphilis is clinically suspected. Equivocal - Further testing to follow. Reactive - Further testing to follow. Performing Organization Address City/State/Zipcode Phone Number [facility] CLIA: [id number] [place] [address] [place] [address] documented in this encounter Visit Diagnoses Diagnosis Encounter [...] Effective Dates Phone Addre ss Type Group [facility] STAR [id number] 2012-[employer] Medicaid COMM PLAN - PLUS t MANAGED MEDICAID [id number] documented as of this encounter Advance Directives Name Relationship Healthcare Agent Communication Relationship Vee Solo Mother Health Care Agent [phone] ( Mobile) Josey Schultz Other Health Care Agent
--- OUTSIDE RECORDS SUMMARY | 2020-08-29 14:01 | XMS REPORT | Summary of Care ---
:[address] [facility] Address [address] [place] [address] Care Team Providers Name Role Phone Ashley Floyd Insurance Hmo Ashley Floyd Primary Care Provider Reason for Visit Reason Comments Results Encounter Details Date Type Department Care Team Description 06/12/2020 Telephone [facility] RMCHP- A Casie Aguayo, PUBLICATIONS DISTRIBUTION CLERK Results 1108 [facility] S [facility] [address] [place] [address] [address] [place] [address] [phone] Allergies Active Allergy Reactions Severity Noted Date [...] Any questions please contact: John Manley MD [phone] Natalie Hightower MD [phone] Moises Frias MD [phone] Quick facts ? Patient randomized after delivery if t terryy met inclusion criteria a nd accepted ? Medication comes from IDS not pharmacy , IDS Phone Number Ext. [phone] or cell ? Patient can start meds as soon as they tolerate PO ? One tab per day of either placebo or H CTZ ? Medication stays with patient ? Medication will appear on DEC, Nurses need to randy as given (No barcode) ? Medication needs to counted prior to d ischarge by research production team leader ? All follow ups need [...] 05/18/2014 Asthma 05/18/2014 Overview: ICD10 Diagnosis Term Livestock Farmer Utility documented as of this encounter (statuses [...] had "leaky valves". But never evaluated. 06/23/15 [place] Card Stress test- negative. H olter- Sinus rhythm with mild ectopy (35 isolated SVT) 06/21/15 Echo- EF=> 55%, no wall motion abnl, Mild MR, mild PVR Morbid obesity 09/06/2015 05/20/2017 Previous delivery affecting , antepartum 1 11/06/2014 04/11/2016 Overview: Prev x1 [facility]- Dr Bailey for ar rest of descent- [...] Telephone Encounter - Casie Canas FNP - 06/13/2020 [...] Visit Orthopedic Surgery Nba Whyte MD [address] [place] [address] 06/21/2020 Office Visit Obstetrics & Gynecology Jhony Frias MD [address] [place] [address] [place] [address] Us Room Health Maintenance Due Date Last [...] Effective Dates Phone Addre ss Type Group [id number] 2012-[facility] Medicaid COMM PLAN - PLUS t MANAGED MEDICAID documented as of this encounter Advance Directives Name Relationship Healthcare Agent Communication Relationship Vee Germania Mother Health Care Agent [phone] ( Mobile) Josey Schultz Other Health Care Agent
--- OUTSIDE RECORDS SUMMARY | 2020-08-29 14:01 | XMS REPORT | Summary of Care ---
:1985 Author Organization [facility] Address [address] [place] [address] Care Team Providers Name Role Phone Ashley Floyd Insurance Hmo Ashley Floyd Primary Care Provider Reason for Visit Reason Comments Results Encounter Details Date Type Department Care Team Description 06/12/2020 Telephone [facility]- A Casie Aguayo, RADIO INTERFERENCE TROUBLE SHOOTER Results [address] [facility] [address] [place] [address] 9[address] [place] [address] [phone] Allergies Active Allergy Reactions Severity Noted Date [...] Any questions please contact: John Manley MD [phone] Natalie Hightower MD [phone] Moises Frias MD [phone] Quick facts ? Patient randomized after delivery if t terryy met inclusion criteria a nd accepted ? Medication comes from IDS not pharmacy , IDS Phone Number Ext. [phone] or cell ? Patient can start meds as soon as they tolerate PO ? One tab per day of either placebo or H CTZ ? Medication stays with patient ? Medication will appear on DEC, Nurses need to randy as given (No barcode) ? Medication needs to counted prior to d ischarge by research pilot steam yacht ? All follow ups need to be [...] 05/18/2014 Asthma 05/18/2014 Overview: ICD10 Diagnosis Term Restorative Care Technician Utility documented as of this encounter [...] had "leaky valves". But never evaluated. 06/23/15 [place] Card Stress test- negative. H olter- Sinus rhythm with mild ectopy (35 isolated SVT) 06/21/15 Echo- EF=> 55%, no wall motion abnl, Mild MR, mild PVR Morbid obesity 09/06/2015 05/20/2017 Previous delivery affecting , antepartum 1 11/06/2014 04/11/2016 Overview: Prev x1 [facility]- Dr Bailey for ar rest of [...] Visit Orthopedic Surgery Nba Whyte MD [address] [place] [address] 06/21/2020 Office Visit Obstetrics & Gynecology Jhony Frias MD [address] [place] [phone] , [facility] Us Room Health Maintenance Due Date [...] Dates Phone Addre ss Type Group [facility] [id number] 2012-[facility] Medicaid COMM PLAN - PLUS t MANAGED MEDICAID documented as of this encounter Advance Directives Name Relationship Healthcare Agent Communication Relationship Vee Solo Mother Health Care Agent [phone] ( Mobile) Josey Schultz Other Health Care Agent [phone] ([place])
--- OUTSIDE RECORDS SUMMARY | 2020-08-29 14:01 | XMS REPORT | Summary of Care ---
:1985 Author Organization [facility] Address [address] [place] [address] Care Team Providers Name Role Phone Ashley Floyd Insurance Hmo Ashley Floyd Primary Care Provider Reason for Visit Reason Comments Rx Concern/Question go to covermymeds prior auth has started for nystatin Encounter Details Date Type Department Care Team Description 06/06/[address] [facility], Rx Concern/Question [facility] (go to covermymeds [address] [place] [place] [address] for nystatin ) [place], [place] [phone] [address] [phone] Allergies Active Allergy Reactions Severity Noted Date Comments Latex Rash 12/11/2017 documented as of this encounter (statuses as of 06/09/2020) Medications Medication Sig Dispensed Refills Start Date [...] as of this encounter (statuses as of 06/09/2020) Active Problems Patient Care Coordination Note LTCS [...] Any questions please contact: John Manley MD [phone] Natalie Hightower MD [phone] Moises Frias MD [phone] Quick facts ? Patient randomized after delivery if t tracy met inclusion criteria a nd accepted ? Medication comes from IDS not pharmacy , IDS Phone Number Ext. [phone] or cell ? Patient can start meds as soon as they tolerate PO ? One tab per day of either placebo or H CTZ ? Medication stays with patient ? Medication will appear on DEC, Nurses need to randy as given (No barcode) ? Medication needs to counted prior to d ischarge by research steam service inspector ? All follow ups need to be [...] 05/18/2014 Asthma 05/18/2014 Overview: ICD10 Diagnosis Term Boring Machine Set Up Operator Jig Utility documented as of this encounter (statuses as of 06/09/2020) Resolved Problems Problem Noted Date Resolved Date [...] had "leaky valves". But never evaluated. 06/23/15 [place] Card Stress test- negative. H olter- Sinus rhythm with mild ectopy (35 isolated SVT) 06/21/15 Echo- EF=> 55%, no wall motion abnl, Mild MR, mild PVR Morbid obesity 09/06/2015 05/20/2017 Previous delivery affecting , antepartum 1 11/06/2014 04/11/2016 Overview: Prev x1 [facility]- Dr Bailey for ar rest of descent- Transverse incision in lowers egment-"extended laterally and benito periorly" ; desire TOLAC HSV infection 09/06/2015 04/11/2016 Rubella immune 05/19/2014 09/06/2015 Anxiety 05/18/2014 01/27/2018 Hypertension 05/18/2014 11/30/2015 Dysmenorrhea 05/18/2014 09/06/2015 Other dyspnea and respiratory abnormality 07/22/2007 05/18/2014 documented as of this encounter (statuses as of 06/09/2020) Immunizations Name Administration Dates Next Due Influenza [...] Telephone Encounter - Martine Draper LVN - 06/09/2020 9:30 AM CDTPriscilla Lexy Solo is a 34 year old female PA submitted to covermymeds. elephone Encounter - Amber Flores - 06/06/2020 11:16 AM CDTPrior auth has been started for nystatin Go to cover my meds ANSARI [id number] documented in this encounter Plan of Treatment Date Type Specialty Care Team Description 06/19/2020 Office Visit Orthopedic Surgery Nba Whyte MD [address] [place] [address] 06/21/2020 Office Visit Obstetrics & Gynecology Jhony Frias MD [address] [place] [phone] , [facility] Usg Room Health Maintenance Due Date Last [...] Effective Dates Phone Addre ss Type Group [facility] STAR [id number] 2012-[place] Medicaid COMM PLAN - PLUS t MANAGED MEDICAID documented as of this encounter Advance Directives Name Relationship Healthcare Agent Communication Relationship Vee Solo Mother Health Care Agent [phone] ( [place]) Josey Schultz Other Health Care Agent ([place])
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
--- OUTSIDE RECORDS SUMMARY | 2020-08-29 14:02 | XMS REPORT | Summary of Care ---
:1985 Author Organization [facility] Address [address] [place] [address] Care Team Providers Name Role Phone Ashley Floyd Insurance Hmo Ashley Floyd Primary Care Provider Reason for Visit Reason Comments Appointment Schedule Surgery Encounter Details Date Type Department Care Team Description 07/19/2020 Telephone [facility] Orthopaedic Ezra Whyte MD Appointment (Schedule Surgery- [address] [phone] Allergies Active Allergy Reactions Severity Noted Date Comments Latex Rash 12/11/2017 documented as of this encounter (statuses as of 07/19/2020) Medications Medication Sig Dispensed Refills Start Date [...] as of this encounter (statuses as of 07/19/2020) Active Problems Patient Care Coordination Note LTCS [...] Any questions please contact: John Manley MD [phone] Natalie Higthower MD [phone] Moises Frias MD [phone] Quick facts ? Patient randomized after delivery if t terryy met inclusion criteria a nd accepted ? Medication comes from IDS not pharmacy , IDS Phone Number Ext. [phone] or cell ? Patient can start meds as soon as they tolerate PO ? One tab per day of either placebo or H CTZ ? Medication stays with patient ? Medication will appear on DEC, Nurses need to randy as given (No barcode) ? Medication needs to counted prior to d ischarge by research call center team leader ? All follow ups need [...] 05/18/2014 Asthma 05/18/2014 Overview: ICD10 Diagnosis Term Aircraft Maintenance Instructor Utility documented as of this encounter (statuses as of 07/19/2020) Resolved Problems Problem Noted Date Resolved Date [...] had "leaky valves". But never evaluated. 06/23/15 [place] Card Stress test- negative. H olter- Sinus rhythm with mild ectopy (35 isolated SVT) 06/21/15 Echo- EF=> 55%, no wall motion abnl, Mild MR, mild PVR Morbid obesity 09/06/2015 05/20/2017 Previous delivery affecting , antepartum 1 11/06/2014 04/11/2016 Overview: Prev x1 [facility]- Dr Bailey for ar rest of descent- Transverse incision in lowers egment-"extended laterally and benito periorly" ; desire TOLAC HSV infection 09/06/2015 04/11/2016 Rubella immune 05/19/2014 09/06/2015 Anxiety 05/18/2014 01/27/2018 Hypertension 05/18/2014 11/30/2015 Dysmenorrhea 05/18/2014 09/06/2015 Other dyspnea and respiratory abnormality 07/22/2007 05/18/2014 documented as of this encounter (statuses as of 07/19/2020) Immunizations Name Administration Dates Next Due Influenza [...] this encounter Miscellaneous Notes Telephone Encounter - Zeynep Pool - 07/19/2020 7:45 AM CDTLeft 2 voicemails for patient to call and schedule surgery. documented in this encounter Plan of Treatment Health Maintenance Due Date Last Done Comments [...] Effective Dates Phone Addre ss Type Group [facility] STAR [id number] 2012-[facility] Medicaid COMM PLAN - PLUS t MANAGED MEDICAID documented as of this encounter Advance Directives Name Relationship Healthcare Agent Communication Relationship Vee Germania Mother Health Care Agent [phone] ( [place]) Josey Schultz Other Health Care Agent
--- OUTSIDE RECORDS SUMMARY | 2020-08-29 14:02 | XMS REPORT | Summary of Care ---
:1985 Author Organization [facility] - [facility] Address [address] [place] [address] Care Team Providers Name Role Phone Ashley Floyd Insurance Hmo Ashley Floyd Primary Care Provider Encounter Details Date Type Department Care Team Description 07/05/2020 Orders Only [facility] Doctor Unassigned, No [address] [facility] [place] [address] [address] [place] [address] Allergies Active Allergy Reactions Severity Noted Date [...] Any questions please contact: John Manley MD [phone] Natalie Hightower MD [phone] Moises Frias MD [phone] Quick facts ? Patient randomized after delivery if louisa molina met inclusion criteria a nd accepted ? Medication comes from IDS not pharmacy , IDS Phone Number Ext. [phone] or cell ? Patient can start meds as soon as they tolerate PO ? One tab per day of either placebo or H CTZ ? Medication stays with patient ? Medication will appear on DEC, Nurses need to randy as given (No barcode) ? Medication needs to counted prior to d ischarge by research pipe or steam fitter furnace installer ? All follow ups need to be [...] 05/18/2014 Asthma 05/18/2014 Overview: ICD10 Diagnosis Term Welfare Case Worker Utility documented as of this encounter (statuses [...] had "leaky valves". But never evaluated. 06/23/15 [place] Card Stress test- negative. H olter- Sinus rhythm with mild ectopy (35 isolated SVT) 06/21/15 Echo- EF=> 55%, no wall motion abnl, Mild MR, mild PVR Morbid obesity 09/06/2015 05/20/2017 Previous delivery affecting , antepartum 1 11/06/2014 04/11/2016 Overview: Prev x1 [facility]- Dr Bailey for ar rest of [...] Visit Obstetrics & Gynecology Jhony Frias MD [address] [place], [place] [address] 4, [facility] Usg Room Health Maintenance Due Date Last Done Comments PAP SMEAR 05/20/2020 05/20/2017, 05/18/2014 INFLUENZA VACCINE (#1) 2020 10/16/2017 Depression Screening 03/16/2021 03/16/2020 DTaP,Tdap,and Td Vaccines (4 - Td) 10/16/2027 10/16/2017, 0 01/18/2016, 05/18/2014 PNEUMOCOCCAL 0-64 YEARS COMBINED Completed 05/11/2008 SERIES documented as of this encounter Procedures Procedure Name Priority Date/Time Associated Diagnosis Comme nts DISCLOSURE AND CONSENT, Routine 07/05/2020 12:01 AM MEDICAL AND SURGICAL CDT PROCEDURES documented in this encounter Results Not on filedocumented in this encounter Insurance Payer Benefit Plan / Subscriber ID Effective Dates Phone Addre ss Type Group [facility] STAR [id number] 2012-[place] Medicaid COMM PLAN - PLUS t MANAGED MEDICAID documented as of this encounter Advance Directives Name Relationship Healthcare Agent Communication Relationship Vee Solo Mother Health Care Agent [phone] ( [place]) Josey Schultz Other Health Care Agent
--- OUTSIDE RECORDS SUMMARY | 2020-08-29 14:02 | XMS REPORT | Summary of Care ---
:1985 Author Organization [facility] Address [address] [place] [address] Care Team Providers Name Role Phone Ashley Floyd Insurance Hmo Ashley Floyd Primary Care Provider Reason for Visit Reason Comments LAB WORK Encounter Details Date Type Department Care Team Description 06/19/2020 Director Of Income Tax [facility] R, ADDICTION NURSE [address] [place] [address] Screening [facility] examination for STD [address] [facility] (sexually Street transmitted disease) [place], [place] (Primary Dx) [phone] Allergies Active Allergy Reactions Severity Noted Date Comments Latex Rash 12/11/2017 documented as of this encounter (statuses as of 06/19/2020) Medications Medication Sig Dispensed Refills Start Date [...] as of this encounter (statuses as of 06/19/2020) Active Problems Patient Care Coordination Note LTCS [...] Any questions please contact: John Manley MD [phone] Natalie Hightower MD [phone] Moises Frias MD [phone] Quick facts ? Patient randomized after delivery if t tracy met inclusion criteria a nd accepted ? Medication comes from IDS not pharmacy , IDS Phone Number Ext. [phone] or cell ? Patient can start meds as soon as they tolerate PO ? One tab per day of either placebo or H CTZ ? Medication stays with patient ? Medication will appear on DEC, Nurses need to randy as given (No barcode) ? Medication needs to counted prior to d ischarge by research meat team lead ? All follow ups need to be [...] 05/18/2014 Asthma 05/18/2014 Overview: ICD10 Diagnosis Term Tennis Director Utility documented as of this encounter (statuses as of 06/19/2020) Resolved Problems Problem Noted Date Resolved Date [...] had "leaky valves". But never evaluated. 06/23/15 [place] Card Stress test- negative. H olter- Sinus rhythm with mild ectopy (35 isolated SVT) 06/21/15 Echo- EF=> 55%, no wall motion abnl, Mild MR, mild PVR Morbid obesity 09/06/2015 05/20/2017 Previous delivery affecting , antepartum 1 11/06/2014 04/11/2016 Overview: Prev x1 [facility]- Dr Bailey for ar rest of descent- Transverse incision in lowers egment-"extended laterally and benito periorly" ; desire TOLAC HSV infection 09/06/2015 04/11/2016 Rubella immune 05/19/2014 09/06/2015 Anxiety 05/18/2014 01/27/2018 Hypertension 05/18/2014 11/30/2015 Dysmenorrhea 05/18/2014 09/06/2015 Other dyspnea and respiratory abnormality 07/22/2007 05/18/2014 documented as of this encounter (statuses as of 06/19/2020) Immunizations Name Administration Dates Next Due Influenza [...] Treatment Date Type Specialty Care Team Description 06/21/2020 Office Visit Obstetrics & Gynecology Jhony Frias MD [address] [place] [address], [facility] Room Name Type Priority Associated Diagnoses Date/Ti me GC & CHLAMYDIA LAB Routine Screening examination for 06/19/2020 4:23 PM CDT AMPLIFIED ASSAY STD (sexually transmitted disease) Health Maintenance Due Date Last Done Comments PAP SMEAR 05/20/2020 05/20/2017, 05/18/2014 INFLUENZA VACCINE (#1) 2020 10/16/2017 Depression Screening 03/16/2021 03/16/2020 DTaP,Tdap,and Td Vaccines (4 - Td) 10/16/2027 10/16/2017, 0 01/18/2016, 05/18/2014 PNEUMOCOCCAL 0-64 YEARS COMBINED Completed 05/11/2008 SERIES documented as of this encounter Results Not on filedocumented in this encounter Visit Diagnoses Diagnosis Screening examination for STD (sexually transmitted disease) - Primary Screening examination for venereal disea se documented in this encounter Insurance Payer Benefit Plan / Subscriber ID Effective Dates Phone Addre ss Type Group [facility] STAR [id number] 2012-[facility] Medicaid COMM PLAN - PLUS t MANAGED MEDICAID [id number] 1 documented as of this encounter Advance Directives Name Relationship Healthcare Agent Communication Relationship Vee Solo Mother Health Care Agent [phone] ( Mobile) Josey Schultz Other Health Care Agent
--- OUTSIDE RECORDS SUMMARY | 2020-08-29 14:03 | XMS REPORT | Summary of Care ---
:1985 Author Organization [facility] Address [address] [place] [address] Care Team Providers Name Role Phone Ashley Floyd Insurance Hmo Ashley Floyd Primary Care Provider Reason for Visit Reason Comments Appointment Encounter Details Date Type Department Care Team Description 08/02/2020 Telephone [facility] Orthopaedic Ezra Whyte MD Appointment Surgery- [address] [address] [place], [place] [phone] Allergies Active Allergy Reactions Severity Noted Date Comments Latex Rash 12/11/2017 documented as of this encounter (statuses as of 08/02/2020) Medications Medication Sig Dispensed Refills Start Date [...] as of this encounter (statuses as of 08/02/2020) Active Problems Patient Care Coordination Note LTCS [...] Any questions please contact: John Manley MD [phone] Natalie Hightower MD [phone] Moises Frias MD [phone] Quick facts ? Patient randomized after delivery if t tracy met inclusion criteria a nd accepted ? Medication comes from IDS not pharmacy , IDS Phone Number Ext. [phone] or cell ? Patient can start meds as soon as they tolerate PO ? One tab per day of either placebo or H CTZ ? Medication stays with patient ? Medication will appear on DEC, Nurses need to randy as given (No barcode) ? Medication needs to counted prior to d ischarge by research steam crane operator ? All follow ups need to be on POD or PP day # 14 or more ? Patient needs to be reminded to bring their left over medication and bottle back to their visit ? IDS needs to be notified at time of di suzy ? Please contact Dr. Manley with any Questions Pain pelvic 12/14/2015 Depression 05/18/2014 Asthma 05/18/2014 Overview: ICD10 Diagnosis Term Flotation Tender Helper Utility documented as of this encounter (statuses as of 08/02/2020) Resolved Problems Problem Noted Date Resolved Date [...] had "leaky valves". But never evaluated. 06/23/15 [place] Card Stress test- negative. H olter- Sinus rhythm with mild ectopy (35 isolated SVT) 06/21/15 Echo- EF=> 55%, no wall motion abnl, Mild MR, mild PVR Morbid obesity 09/06/2015 05/20/2017 Previous delivery affecting , antepartum 1 11/06/2014 04/11/2016 Overview: Prev x1 [facility]- Dr Bailey for ar rest of descent- Transverse incision in lowers egment-"extended laterally and benito periorly" ; desire TOLAC HSV infection 09/06/2015 04/11/2016 Rubella immune 05/19/2014 09/06/2015 Anxiety 05/18/2014 01/27/2018 Hypertension 05/18/2014 11/30/2015 Dysmenorrhea 05/18/2014 09/06/2015 Other dyspnea and respiratory abnormality 07/22/2007 05/18/2014 documented as of this encounter (statuses as of 08/02/2020) Immunizations Name Administration Dates Next Due Influenza [...] Notes Telephone Encounter - Zeynep Pool - 08/02/2020 11:15 AM CDTLVM for patient to call regarding surgery. elephone Encounter - Rubi López - 08/02/2020 10:35 AM CDTPatient is calling back to reschedule surgery for an earlier date. Please call patient back at [phone]. documented in this encounter Plan of Treatment Date Type Specialty Care Team Description 08/04/2020 Hospital Encounter Surgery Nba Whyte MD [address] [place] [address] 08/04/2020 Surgery Surgery Ezra Whyte MD POSTERIOR INTEROSSEOUS [address] [facility] [place] [address] Health Maintenance Due Date Last Done Comments [...] Effective Dates Phone Addre ss Type Group [facility] STAR [id number] 2012-Pres Medicaid COMM PLAN - PLUS t MANAGED MEDICAID documented as of this encounter Advance Directives Name Relationship Healthcare Agent Communication Relationship Vee Solo Mother Health Care Agent [phone] ( Mobile) Josey Schultz Other Health Care Agent
--- OUTSIDE RECORDS SUMMARY | 2020-08-29 14:03 | XMS REPORT | Summary of Care ---
:1985 Author Organization [facility] Address [address] [place] [address] Care Team Providers Name Role Phone Ashley Floyd Insurance Hmo Ashley Floyd Primary Care Provider Reason for Visit Reason Comments Appointment Encounter Details Date Type Department Care Team Description 08/02/2020 Telephone [facility] Orthopaedic Ezra Whyte MD Appointment Surgery- [address] [address] [place], [place] [phone] Allergies Active Allergy Reactions [...] Any questions please contact: John Manley MD [phone] Natalie Hightower MD [phone] Moises Frias MD [phone] Quick facts ? Patient randomized after delivery if t tracy met inclusion criteria a nd accepted ? Medication comes from IDS not pharmacy , IDS Phone Number Ext. [phone] or cell ? Patient can start meds as soon as they tolerate PO ? One tab per day of either placebo or H CTZ ? Medication stays with patient ? Medication will appear on DEC, Nurses need to randy as given (No barcode) ? Medication needs to counted prior to d ischarge by research steam shovel runner ? All follow ups need to be [...] 05/18/2014 Asthma 05/18/2014 Overview: ICD10 Diagnosis Term Parachute Inspector Utility documented as of this encounter (statuses [...] had "leaky valves". But never evaluated. 06/23/15 [place] Card Stress test- negative. H olter- Sinus rhythm with mild ectopy (35 isolated SVT) 06/21/15 Echo- EF=> 55%, no wall motion abnl, Mild MR, mild PVR Morbid obesity 09/06/2015 05/20/2017 Previous delivery affecting , antepartum 1 11/06/2014 04/11/2016 Overview: Prev x1 [facility]- Dr Bailey for ar rest of descent- [...] Telephone Encounter - Zeynep Pool - 08/02/2020 11:14 AM CDTTried calling patient back to discuss surgery. Surgery is scheduled 08/04/20. elephone Encounter - Amanda Underwood - 08/02/2020 10:14 AM CDTPatient called stating that she was told her surgery was supposed to be scheduled for 08/04/20 She stated she was called 3 weeks ago with this date. I show her scheduled 08/31/20 Please call to advise. wifi phone only: [phone] signed by Amanda Underwood at 08/02/2020 10:16 AM CDTdocumented in this encounter Plan of Treatment Date Type Specialty Care Team Description 08/04/2020 Hospital Encounter Surgery Nba Whyte MD [address] [place], [place] [phone] 08/04/2020 Surgery Surgery Ezra Whyte MD POSTERIOR INTEROSSEOUS [address] [facility] NERVE NEUR ECTOMY [place], [place] [phone] Health Maintenance Due Date Last Done Comments [...] Effective Dates Phone Addre ss Type Group [facility] STAR [id number] 2012-[employer] Medicaid COMM PLAN - PLUS t MANAGED MEDICAID documented as of this encounter Advance Directives Name Relationship Healthcare Agent Communication Relationship Vee Solo Mother Health Care Agent [phone] ( Mobile) Josey Schultz Other Health Care Agent [phone] ([place]avyam) ([place])
--- OUTSIDE RECORDS SUMMARY | 2020-08-29 14:04 | XMS REPORT | Summary of Care ---
:1985 Author Organization [facility] Address [address] [place] [address] Care Team Providers Name Role Phone Ashley Floyd Insurance Hmo Ashley Floyd Primary Care Provider Reason for Visit Reason Comments LAB WORK Encounter Details Date Type Department Care Team Description 08/03/2020 Laboratory Only [facility] Health Ezra Whyte MD [address] [place] [address] Pre-operative Phlebotomy Only, Adc Test clearance (Primary Lab-[place] Dx) [address] [place] [phone] Allergies Active Allergy Reactions Severity Noted Date Comments Latex Rash 12/11/2017 documented as of this encounter (statuses as of 08/03/2020) Medications Medication Sig Dispensed Refills Start Date [...] as of this encounter (statuses as of 08/03/2020) Active Problems Patient Care Coordination Note LTCS [...] Any questions please contact: John Manley MD [phone] Natalie Hightower MD [phone] Moises Frias MD [phone] Quick facts ? Patient randomized after delivery if t terryy met inclusion criteria a nd accepted ? Medication comes from IDS not pharmacy , IDS Phone Number Ext. [phone] or cell ? Patient can start meds as soon as they tolerate PO ? One tab per day of either placebo or H CTZ ? Medication stays with patient ? Medication will appear on DEC, Nurses need to randy as given (No barcode) ? Medication needs to counted prior to d ischarge by research bakery team leader ? All follow ups need [...] 05/18/2014 Asthma 05/18/2014 Overview: ICD10 Diagnosis Term Tool Polisher Utility documented as of this encounter (statuses as of 08/03/2020) Resolved Problems Problem Noted Date Resolved Date [...] had "leaky valves". But never evaluated. 06/23/15 [place] Card Stress test- negative. H olter- Sinus rhythm with mild ectopy (35 isolated SVT) 06/21/15 Echo- EF=> 55%, no wall motion abnl, Mild MR, mild PVR Morbid obesity 09/06/2015 05/20/2017 Previous delivery affecting , antepartum 1 11/06/2014 04/11/2016 Overview: Prev x1 [facility]- Dr Bailey for ar rest of descent- Transverse incision in lowers egment-"extended laterally and benito periorly" ; desire TOLAC HSV infection 09/06/2015 04/11/2016 Rubella immune 05/19/2014 09/06/2015 Anxiety 05/18/2014 01/27/2018 Hypertension 05/18/2014 11/30/2015 Dysmenorrhea 05/18/2014 09/06/2015 Other dyspnea and respiratory abnormality 07/22/2007 05/18/2014 documented as of this encounter (statuses as of 08/03/2020) Immunizations Name Administration Dates Next Due Influenza [...] been in contact with No / Unsure 08/03/2020 10:42 AM CDT someone who was confirmed or suspected to have Coronavirus / COVID-19? documented as of this encounter Last Filed Vital Signs Not on filedocumented in this encounter Plan of Treatment Date Type Specialty Care Team Description 08/04/2020 Hospital Encounter Surgery Nba Whyte MD [address] [place], [place] [phone] 08/04/2020 Anesthesia Event Surgery Leah Arnold MD [address] [place] [phone] Ashley Alas RN 08/04/2020 Surgery Surgery Ezra Whyte MD POSTERIOR INTEROSSEOUS [address] [facility] NERVE NEUR ECTOMY [place], [place] [address] Name Type Priority Associated Diagnoses Date/Ti me COVID-19 (ID NOW RAPID LAB Routine Pre-operative aditi dianne 08/03/2020 3:03 PM CDT TESTING) Name Type Priority Associated Diagnoses Order S chedule COVID-19 (ID NOW RAPID LAB Routine Pre-operative aditi dianne Expected: 08/03/2020, TESTING) Expires: 2020 Health Maintenance Due Date Last Done Comments PAP SMEAR 05/20/2020 05/20/2017, 05/18/2014 INFLUENZA VACCINE (#1) 2020 10/16/2017 Depression Screening 03/16/2021 03/16/2020 DTaP,Tdap,and Td Vaccines (4 - Td) 10/16/2027 10/16/2017, 0 01/18/2016, 05/18/2014 PNEUMOCOCCAL 0-64 YEARS COMBINED Completed 05/11/2008 SERIES documented as of this encounter Results Not on filedocumented in this encounter Visit Diagnoses Diagnosis Pre-operative clearance - Primary Preoperative examination, unspecified documented in this encounter Additional Health Concerns Infection Onset Date Last Indicated Resolved Time COVID-19 Rule Out 08/03/2020 08/03/2020 documented as of this encounter Insurance Payer Benefit Plan / Subscriber ID Effective Dates Phone Addre ss Type Group [facility] STAR [id number] 2012-[employer] Medicaid COMM PLAN - PLUS t MANAGED MEDICAID [id number] 1 documented as of this encounter Advance Directives Name Relationship Healthcare Agent Communication Relationship Vee Germania Mother Health Care Agent [phone] ( Mobile) Josey Schultz Other Health Care Agent
--- OUTSIDE RECORDS SUMMARY | 2020-08-29 14:04 | XMS REPORT | Summary of Care ---
:1985 Author Organization [facility] - Health Address [address] [place] [address] Care Team Providers Name Role Phone Ashley Floyd Insurance Hmo Ashley Floyd Primary Care Provider Reason for Visit Reason Comments LAB WORK Encounter Details Date Type Department Care Team Description 08/03/2020 Laboratory Only [facility] Health Ezra Whyte MD [address] [place] [address] Pre-operative Phlebotomy Only, Adc Test clearance (Primary Lab-[place] Dx) [address] [place] [phone] Allergies Active Allergy Reactions Severity Noted Date [...] Any questions please contact: John Manley MD [phone] Natalie Hightower MD [phone] Moises Frias MD [phone] Quick facts ? Patient randomized after delivery if t terryy met inclusion criteria a nd accepted ? Medication comes from IDS not pharmacy , IDS Phone Number Ext. [phone] or cell ? Patient can start meds as soon as they tolerate PO ? One tab per day of either placebo or H CTZ ? Medication stays with patient ? Medication will appear on DEC, Nurses need to randy as given (No barcode) ? Medication needs to counted prior to d ischarge by research bakery team member ? All follow ups need [...] 05/18/2014 Asthma 05/18/2014 Overview: ICD10 Diagnosis Term Sfdc Developer Utility documented as of this encounter (statuses [...] had "leaky valves". But never evaluated. 06/23/15 [place] Card Stress test- negative. H olter- Sinus rhythm with mild ectopy (35 isolated SVT) 06/21/15 Echo- EF=> 55%, no wall motion abnl, Mild MR, mild PVR Morbid obesity 09/06/2015 05/20/2017 Previous delivery affecting , antepartum 1 11/06/2014 04/11/2016 Overview: Prev x1 [facility]- Dr Bailey for ar rest of descent- [...] Hospital Encounter Surgery Nba Whyte MD [address] [place], [place] [address] 08/04/2020 Anesthesia Event Surgery Leah Arnold MD [address] [place] [phone] Ashley Alas RN 08/04/2020 Surgery Surgery Ezra Whyte MD POSTERIOR INTEROSSEOUS [address] [facility] NERVE NEUR ECTOMY [place], [place] [address] Name Type Priority Associated Diagnoses Order S jazlyn COVID-19 (ID NOW RAPID LAB Routine Pre-operative aditi dean Expected: 08/03/2020, TESTING) Expires: 2020 Health Maintenance [...] Preoperative examination, unspecified documented in this encounter Insurance Payer Benefit Plan / Subscriber ID Effective Dates Phone Addre ss Type Group [facility] [id number] 2012-Pres Medicaid COMM PLAN - PLUS t MANAGED MEDICAID [id number] 1 documented as of this encounter Advance Directives Name Relationship Healthcare Agent Communication Relationship Vee Solo Mother Health Care Agent [phone] ( Mobile) Joseykristan Schultz Other Health Care Agent
--- OUTSIDE RECORDS SUMMARY | 2020-08-29 14:04 | XMS REPORT | Summary of Care ---
:1985 Author Organization [facility] - Health Address [address] [place] [address] Care Team Providers Name Role Phone Ashley Floyd Insurance Hmo Ashley Floyd Primary Care Provider Reason for Visit Reason Comments LAB WORK Encounter Details Date Type Department Care Team Description 08/03/2020 Laboratory Only [facility] Health Ezra Whyte MD [address] [place] [address] Pre-operative Phlebotomy Only, Adc Test clearance (Primary Lab-[place] Dx) [address] [place] [phone] Allergies Active Allergy Reactions Severity Noted Date [...] Any questions please contact: John Manley MD [phone] Natalie Hightower MD [phone] Moises Frias MD [phone] Quick facts ? Patient randomized after delivery if t terryy met inclusion criteria a nd accepted ? Medication comes from IDS not pharmacy , IDS Phone Number Ext. [phone] or cell ? Patient can start meds as soon as they tolerate PO ? One tab per day of either placebo or H CTZ ? Medication stays with patient ? Medication will appear on DEC, Nurses need to randy as given (No barcode) ? Medication needs to counted prior to d ischarge by research senior stereo compiler team lead ? All follow ups need [...] 05/18/2014 Asthma 05/18/2014 Overview: ICD10 Diagnosis Term Rn Flight Utility documented as of this encounter (statuses [...] had "leaky valves". But never evaluated. 06/23/15 [place] Card Stress test- negative. H olter- Sinus rhythm with mild ectopy (35 isolated SVT) 06/21/15 Echo- EF=> 55%, no wall motion abnl, Mild MR, mild PVR Morbid obesity 09/06/2015 05/20/2017 Previous delivery affecting , antepartum 1 11/06/2014 04/11/2016 Overview: Prev x1 [facility]- Dr Bailey for ar rest of [...] Hospital Encounter Surgery Nba Whyte MD [address] [place], [place] [address] 08/04/2020 Anesthesia Event Surgery Leah Arnold MD [address] [place] [phone] Ashley Alas RN 08/04/2020 Surgery Surgery Ezra Whyte MD POSTERIOR INTEROSSEOUS [address] [facility] NERVE NEUR ECTOMY [place], [place] [address] Name Type Priority Associated Diagnoses Date/Ti me [...] Effective Dates Phone Addre ss Type Group [facility] STAR [id number] 2012-[employer] Medicaid COMM PLAN - PLUS t MANAGED MEDICAID [id number] 1 documented as of this encounter Advance Directives Name Relationship Healthcare Agent Communication Relationship Vee Germania Mother Health Care Agent [phone] ( Mobile) Josey Schultz Other Health Care Agent
--- OUTSIDE RECORDS SUMMARY | 2020-08-29 14:05 | XMS REPORT | Summary of Care ---
:1985 Author Organization [facility] - Health Address [address] [place] [address] Care Team Providers Name Role Phone Ashley Floyd Insurance Hmo Ashley Floyd Primary Care Provider Encounter Details Date Type Department Care Team Description 08/04/2020 Orders Only [facility] Doctor Unassigned, No [address] [facility] [place] [address] [address] [place] [address] Allergies Active Allergy Reactions Severity Noted Date Comments Latex Rash 12/11/2017 documented as of this encounter (statuses as of 08/04/2020) Medications Medication Sig Dispensed Refills Start Date [...] as of this encounter (statuses as of 08/04/2020) Active Problems Patient Care Coordination Note LTCS [...] Any questions please contact: John Manley MD [phone] Natalie Hightower MD [phone] Moises Frias MD [phone] Quick facts ? Patient randomized after delivery if louisa molina met inclusion criteria a nd accepted ? Medication comes from IDS not pharmacy , IDS Phone Number Ext. [phone] or cell ? Patient can start meds as soon as they tolerate PO ? One tab per day of either placebo or H CTZ ? Medication stays with patient ? Medication will appear on DEC, Nurses need to randy as given (No barcode) ? Medication needs to counted prior to d ischarge by research coding team lead ? All follow ups need [...] 05/18/2014 Asthma 05/18/2014 Overview: ICD10 Diagnosis Term Continuous Dryout Operator Helper Utility documented as of this encounter (statuses as of 08/04/2020) Resolved Problems Problem Noted Date Resolved Date [...] had "leaky valves". But never evaluated. 06/23/15 [place] Card Stress test- negative. H olter- Sinus [...] as of this encounter (statuses as of 08/04/2020) Immunizations Name Administration Dates Next Due Influenza [...] been in contact with No / Unsure 08/04/2020 11:09 AM CDT someone who was confirmed or suspected to have Coronavirus / COVID-19? documented as of this encounter Last Filed Vital Signs Not on filedocumented in this encounter Plan of Treatment Health Maintenance Due Date Last Done Comments PAP SMEAR 05/20/2020 05/20/2017, 05/18/2014 INFLUENZA VACCINE (#1) 2020 10/16/2017 Depression Screening 03/16/2021 03/16/2020 DTaP,Tdap,and Td Vaccines (4 - Td) 10/16/2027 10/16/2017, 0 01/18/2016, 05/18/2014 PNEUMOCOCCAL 0-64 YEARS COMBINED Completed 05/11/2008 SERIES documented as of this encounter Procedures Procedure Name Priority Date/Time Associated Diagnosis Comme nts ASSIGNMENT OF BENEFITS Routine 08/04/2020 11:10 AM CDT documented in this encounter Results Not on filedocumented in this encounter Insurance Payer Benefit Plan / Subscriber ID Effective Dates Phone Addre ss Type Group [facility] STAR [id number] 2012-[facility] Medicaid COMM PLAN - PLUS t MANAGED MEDICAID documented as of this encounter Advance Directives Name Relationship Healthcare Agent Communication Relationship Vee Solo Mother Health Care Agent [phone] ( Mobile) Josey Schultz Other Health Care Agent
--- OUTSIDE RECORDS SUMMARY | 2020-08-29 14:05 | XMS REPORT | Summary of Care ---
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 Vl Preop Procedures OK TRANSECT OTHR SPINAL N,XTRADURAL POSTERIOR INTEROSSEOUS NERVE NEURECTOMY [address] [facility] [place] [address] Phone: Fax: Encounter Details Date Type Department Care Team Description 08/04/[address] [facility] Mirza Angeles MD [address] [place] [address] [place] [address] [place] [phone] Allergies Active Allergy Reactions Severity Noted Date Comments Latex Rash 12/11/2017 Morphine Itching Low 08/04/2020 documented as of this encounter (statuses as of 08/04/2020) Medications Medication Sig Dispensed Refills Start Date End Date Status gabapentin 300 mg Take 1 capsule 90 capsule 1 08/04/202010/03 Active capsuleIndications: by mouth 3 Pain in wrist, (three) times unspecified daily for 60 laterality days. traZODONE 50 mg TAKE 1 TABLET 1 03/04/2019 Suspended tablet BY MOUTH EVERYDAY AT BEDTIME escitalopram TAKE 1 TABLET 1 03/04/2019 Hart spended oxalate 10 mg BY MOUTH EVERY tablet MORNING amoxicillin-clavula TK 1 T PO BID 0 12/06/2019 Suspended regis 875-[address] 1.5 mg 0 11/15/2019 Suspe nded tablet norethindrone-ethin 0 11/25/2019 Suspended yl estradiol 1-20 mg-mcg per tablet escitalopram TK 1 T PO QD 0 11/05/2019 Ally pended oxalate 20 mg tablet PROAIR HFA 90 0 02/03/2020 Suspe nded mcg/actuation inhaler SYMBICORT 160-4.5 0 02/03/2020 S uspended mcg/actuation inhaler nystatin-triamcinol Apply to 15 g 1 06/05/2020 Suspended one area(s) 3 creamIndications: (three) times Yeast infection of daily. the skin Additional Information documented as of this encounter (statuses as [...] Any questions please contact: John Manley MD [phone] Natalie Hightower MD [phone] Moises Frias MD [phone] Quick facts ? Patient randomized after delivery if t terryy met inclusion criteria a nd accepted ? Medication comes from [facility] not pharmacy , [facility] Phone Number Ext. [phone] or cell ? Patient can start meds as soon as they tolerate PO ? One tab per day of either placebo or H CTZ ? Medication stays with patient ? Medication will appear on DEC, Nurses need to randy as given (No barcode) ? Medication needs to counted prior to d ischarge by research steamtable worker ? All follow ups need to be [...] 05/18/2014 Asthma 05/18/2014 Overview: ICD10 Diagnosis Term Daub Color Mixer Utility documented as of this encounter (statuses [...] had "leaky valves". But never evaluated. 06/23/15 [facility] Stress test- negative. H olter- Sinus rhythm with mild ectopy (35 isolated SVT) 06/21/15 Echo- EF=> 55%, no wall motion abnl, Mild MR, mild PVR Morbid obesity 09/06/2015 05/20/2017 Previous delivery affecting , antepartum 1 11/06/2014 04/11/2016 Overview: Prev x1 [facility]- Dr Bailey for ar rest of descent- Transverse incision in lowers egment-"extended laterally and hart periorly" ; desire TOLAC HSV infection 09/06/2015 [...] Signs Not on filedocumented in this encounter OR Notes Anesthesia Postprocedure Evaluation - Mirza Angeles MD - 08/04/2020 4:16 PM CDT Patient: Priscilla Solo Procedure Summary Date: 08/04/20 Room / Location: [address] OR Location Anesthesia Start: 1432 Anesthesia Stop: 1544 Procedure: POSTERIOR INTEROSSEOUS NERVE NEURECTOMY (Left Arm) Diagnosis: (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 Anesthesia Post Evaluation Patient location during evaluation: PACU Patient participation: complete - patient participated Level of consciousness: awake and alert Pain score: 2 Pain management: satisfactory to patient Airway patency: patent Cardiovascular status: acceptable and blood pressure returned to baseline Respiratory status: acceptable Hydration status: acceptable Anesthesia Procedure Notes - Luzma Almanza CRNA - 08/04/2020 2:57 PM CDTAssociated Order(s): IntubationIntubation Date/Time: 08/04/2020 2:39 PM Urgency: elective Airway not difficult General Information and Staff Patient location during procedure: OR Resident/REMELT SUGAR BOILER: Luzma Almanza CRNA Performed: resident/REMELT SUGAR BOILER Indications and Patient Condition Indications for airway management: anesthesia Spontaneous Ventilation: absent Sedation level: deep Preoxygenated: yes Patient position: sniffing MILS maintained throughout Mask difficulty assessment: 1 - vent by mask Final Airway Details Final airway type: supraglottic airway Successful airway: Supraglottic airway: igel. Size 4 Airway Seal Pressure (cm H2O): 25 Number of attempts at approach: 1 Ventilation between attempts: none Number of other approaches attempted: 0 Additional Comments Atraumatic placement of LMA, + ETCO2 and BBS, teeth and lips per preop assessment Anesthesia Preprocedure Evaluation - Sol Kumar MD - 08/04/2020 2:48 PM CDT Name/ MRN / Age / Gender: Priscilla Solo, [id number] 35 year old female BMI: Estimated body mass index is 51.96 kg/m as calculated from the following: Height as of an earlier encounter on 08/04/20: 1.549 m (5' 1"). Weight as of an earlier encounter on 08/04/20: 124.7 kg (275 lb). Allergies: Latex and Morphine Last Vitals: BP Readings from Last 1 Encounters: 08/04/20 127/84 Pulse Readings from Last 1 Encounters: 08/04/20 85 SpO2 Readings from Last 1 Encounters: 08/04/20 98% Date of Surgery: 08/04/2020 Surgeon: Ezra Whyte MD Procedure: POSTERIOR INTEROSSEOUS NERVE NEURECTOMY (Left Arm) OR Location: [facility] OR Location Anesthesia Preop Eval (physical exam) Copied forward and updated from: 12/11/2017 Anesthesia Preop: Chart Review and [id number] [facility] Communication: 08/02/2020 YUDI Keane RN No answer-left message Samia Arnold MD 08/03/2020 8:09 AM PONV Risk Factors: female, non-smoker, post-op opiate use anticipated and hx of PONV Anesthesia History (+) Hx of PONV Previous Anesthetics/Airways Additional Comments: HX of spinal anesthesia for previous C/S x2 HX of GA for Appendectomy > 5 years ago Cardiovascular Comments: Hx of Maternal congestive heart failure-EF 55% in 2016 with . ECHO 2017: Interpretation Summary A complete two-dimensional transthoracic echocardiogram was performed (2D, M- mode, Doppler and colorflow Doppler). The study was technically difficult. There is no comparison study available. There is mild concentric left ventricular hypertrophy. Left ventricular systolic function is normal. Ejection Fraction = 60-65%. There is no pericardial effusion. (+) Hypertension (Hx of Pre E with SF (HTN) with all pregnancies) Pulmonary Sleep apnea: 04/28/2019 AHI 26.4. 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 Hold on DOS. Anticoagulant Therapy: Defer to surgeons Phentermine: Alert [facility] anesthesiologist MAC Cases: Continue taking EDA inhibitors and ARBs ASA Classification ASA: 3 Current Medications: No current facility-administered medications for this visit. Current Outpatient Medications Medication Sig Dispense Refill gabapentin 300 mg capsule Take 1 capsule by mouth 3 (three) times daily for 60 days. 90 capsule 1 Facility-Administered Medications Ordered in Other Visits Medication Dose Route Frequency Last Rate Last Dose lactated ringers IV infusion CONTINUOUS PRN Previous Surgeries: Past Surgical History: Procedure Laterality Date APPENDECTOMY 2013 SECTION 2006 SECTION N/A 03/19/2016 Surgeon: Ken Saeed; Location: [facility] Delivery - [place] SECTION N/A 12/12/2017 Surgeon: Santa Holland MD; Location: Labor and Delivery - [place] TUBAL LIGATION Bilateral 12/12/2017 Surgeon: Santa Holland MD; Location: Labor and Delivery - [place] Anesthesia Physical Exam General no apparent distress and alert and oriented x 3 Neuro/Psych Dental no notable dental hx Abdominal (+) obesity Airway Mallampati score:I TM distance:> 5 cm Neck ROM: full Mouth opening:normal Extremity Pulmonary pulmonary exam normal and bilateral clear to auscultation Other Cardiovascular Rhythm:regular Rate: normal Anesthesia Plan ASA Status: 3 Plan discussed during pre-op evaluation: General Anesthetic plan on DOS: General Plan to include: LMA Anesthesia plan discussed with: patient or international representative Post-Operative Analgesia: routine analgesia & antiemetics Recovery Plan: PACU Additional comments: Evaluation done prior to the start of anesthesia care nesthesia Preprocedure Evaluation - Samia Arnold MD - 08/02/2020 12:27 PM CDT Name/ MRN / Age / Gender: Priscilla Solo, [id number] 35 year old female BMI: Estimated body mass index is 53.24 kg/m as calculated from the following: Height as of 06/05/20: 1.562 m (5' 1.5"). Weight as of 06/05/20: 129.9 kg (286 lb 6.4 oz). Allergies: Latex Last Vitals: BP Readings from Last 1 Encounters: 06/05/20 123/75 Pulse Readings from Last 1 Encounters: 06/05/20 70 SpO2 Readings from Last 1 Encounters: 04/01/19 96% Date of Surgery: 08/04/2020 Surgeon: Ezra Whyte MD Procedure: POSTERIOR INTEROSSEOUS NERVE NEURECTOMY (Left Arm) OR Location: [facility] OR Location Anesthesia Preop Screen (no physical exam) Copied forward and updated from: 12/11/2017 Anesthesia Preop: Chart Review [facility] Communication: 08/02/2020 YUDI Keane RN No answer-left message Samia Arnold MD 08/03/2020 8:09 AM PONV Risk Factors: female and post-op opiate use anticipated Anesthesia History Previous Anesthetics/Airways Additional Comments: HX of spinal anesthesia for previous C/S x2 HX of GA for Appendectomy > 5 years ago Cardiovascular Comments: Hx of Maternal congestive heart failure-EF 55% in 2016 with . TTE 06/2017 (during current ) Left ventricular systolic function is normal. Ejection Fraction = 60-65%. EKG 06/2017 normal Note from OB H&P: She had previous extensive w/u: 06/23/2015 negative stress test at [facility], Holter EKG showed sinus rhythm with mild ectopy (35 isolated SVT), on 06/21/2015 Echo showed EF 55%, no wall motionabnormalities, mild MR, mild PVR, RV pressure= 30-44 mmHg. Repeat ECHO on October 18 2015 EF 60-65%. Pt had also superimposed preeclampsia without severe features in her second , she delivered at 37 weeks at [facility] in February 2016. Pt is currently asymptomatic (+) Hypertension (Hx of Pre E with SF (HTN) with all pregnancies) Pulmonary Sleep apnea: 04/28/2019 AHI 26.4. (+) Asthma (Albuterol daily, has not been taking symbicort during ) Neuro/Musculoskeletal Comments: Chief Complaint: L Wrist Pain,Kienbock's disease (+) Psychiatric history and bipolar (+) Anxiety (+) Obesity (BMI 54) and super morbid obesity GI/Hepatic (+) GERD Hematology Comments: 12/11/2017 16:13 WBC x10^3: 15.50 (H) RBC x10^6: 4.08 (L) HGB: 10.9 (L) HCT: 34.3 (L) PLT x10^3: 185 (-) Prior blood transfusion (-) Not on anti-coagulant therapy (+) Patient accepts blood transfusion Renal Negative Renal ROS Skin Current IV Access: Endo/Other Negative Endo/Other ROS Other ENTRY LEVEL ELECTRICIAN Comments: 32 year old, /White, 36w1d, , transferred to [facility] for higher level of care Prev C/S x2 Superimposed pre-eclampsia - based on elevated BP above baseline and persistent STUBBS and visual disturbances - BPs 140s-170s/80s-90s. Currently BP is 165/81 - H/o HTN, not on any antihypertensives. Pediatric Pediatric N/A N/A Preoperative Medication Instructions Continue taking all prescribed medications except: EDA inhibitors, ARBs, diuretics, all oral diabetes medications Insulin: Take 1/2 dose the night prior to surgery. Hold on DOS. Anticoagulant Therapy: Defer to surgeons Phentermine: Alert [facility] anesthesiologist MAC Cases: Continue taking EDA inhibitors and ARBs ASA Classification ASA: 3 ASA Comments: Morbid obesity, Pre E with SF, gravid Current Medications: No current facility-administered medications for this encounter. Current Outpatient Medications Medication Sig Dispense Refill nystatin-triamcinolone cream Apply to area(s) 3 (three) times daily. 15 g 1 PROAIR HFA 90 mcg/actuation inhaler SYMBICORT 160-4.5 mcg/actuation inhaler amoxicillin-clavulanate 875-125 mg per tablet TK 1 T PO BID escitalopram oxalate 20 mg tablet TK [address] PO QD MY WAY 1.5 mg tablet norethindrone-ethinyl estradiol 1-20 mg-mcg per tablet escitalopram oxalate 10 mg tablet TAKE 1 TABLET BY MOUTH EVERY MORNING 1 traZODONE 50 mg tablet TAKE 1 TABLET BY MOUTH EVERYDAY AT BEDTIME 1 Previous Surgeries: Past Surgical History: Procedure Laterality Date APPENDECTOMY 2012 SECTION 2006 SECTION N/A 03/19/2016 Surgeon: Ken Saeed; Location: [facility] [place] SECTION N/A 12/12/2017 Surgeon: Santa Holland MD; Location: [facility] Delivery - [facility] [place] TUBAL LIGATION Bilateral 12/12/2017 Surgeon: Santa Holland MD; Location: [facility] Delivery - [facility] [place] Physical Exam Anesthesia Plan ASA Status: 3 documented in this encounter Miscellaneous Notes Addendum Note - Mirza Angeles MD - 08/04/2020 4:27 PM CDT Addendum created 08/04/20 1627 by Mirza Angeles MD Order list changed documented in this encounter Plan of Treatment Health Maintenance Due Date Last Done Comments PAP SMEAR 05/20/2020 05/20/2017, 05/18/2014 INFLUENZA VACCINE (#1) 2020 10/16/2017 Depression Screening 08/04/2021 08/04/2020 DTaP,Tdap,and Td Vaccines (4 - Td) 10/16/2027 10/16/2017, 0 01/18/2016, 05/18/2014 PNEUMOCOCCAL 0-64 YEARS COMBINED Completed 05/11/2008 SERIES documented as of this encounter Procedures Procedure Name Priority Date/Time Associated Diagnosis Comme nts INTUBATION Routine 08/04/2020 2:57 PM Results for this CDT procedure are i n the results section . documented in this encounter Results Intubation (08/04/2020 2:57 PM CDT) Narrative Performed At Luzma Almanza CRNA 08/04/20 20 2:57 PM Intubation Date/Time: 08/04/2020 2:39 PM Urgency: elective Airway not difficult General Information and Staff Patient location during procedure: OR Resident/REMELT SUGAR BOILER: Luzma Almanza CRN A Performed: resident/REMELT SUGAR BOILER Indications and Patient Condition Indications for airway management: anest hesia Spontaneous Ventilation: absent Sedation level: deep Preoxygenated: yes Patient position: sniffing MILS maintained throughout Mask difficulty assessment: 1 - vent by mask Final Airway Details Final airway type: supraglottic airway Successful airway: Supraglottic airway: igel. Size 4 Airway Seal Pressure (cm H2O): 25 Number of attempts at approach: 1 Ventilation between attempts: none Number of other approaches attempted: 0 Additional Comments Atraumatic placement of LMA, + ETCO2 and BBS, teeth and lips per preop assessment documented in this encounter Administered Medications Medication Order MAR Action Action Date Dose Rate Site acetaminophen ADULT (OFIRMEV) Given 08/04/2020 2:40 PM CDT 8 mg injection Administer over 15 Minutes, ONCE INTRA PROCEDURE, Starting Fri08/04/20 at 1440, Until Fri08/04/20 at 1554, Routine, Intra-op ceFAZolin (ANCEF) injection Given 08/04/2020 2:44 PM CDT 3 g ONCE INTRA PROCEDURE, Starting Fri08/04/20 at 1444, Until Fri08/04/20 at 1554, ELAINE, Intra-op ePHEDrine 25 mg/5 mL (5 mg/mL) syringe Given 08/04/2020 3:01 PM CDT 5 mg ONCE INTRA PROCEDURE, Starting Fri08/04/20 at 1500, Until Fri08/04/20 at 1554, Routine, Intra-op Given 08/04/2020 3:00 PM CDT 5 mg FENTanyl PF (SUBLIMAZE (PF)) injection Given 08/04/2020 2:37 PM CDT 50 mcg ONCE INTRA PROCEDURE, Starting 08/04/20 at 1437, Until 08/04/20 at 1554, Routine, Intra-op HYDROmorphOne (DILAUDID) injection Given 08/04/2020 3:08 PM CDT 0.5 mg ONCE INTRA PROCEDURE, Starting 08/04/20 at 1451, Until Fri08/04/20 at 1554, Routine, Intra-op Given 08/04/2020 2:51 PM CDT 0.5 mg lactated ringers IV infusion New Bag 08/04/2020 1:28 PM CDT CONTINUOUS PRN, Starting Fri08/04/20 at 1328, Until Fri08/04/20 at 1554, Routine, Intra-op lidocaine 1% (XYLOCAINE) 100 mg/10 mL (1 %) Given 08/04/2020 2:37 PM CDT 10 mL injection ONCE INTRA PROCEDURE, Starting 08/04/20 at 1437, Until Fri08/04/20 at 1554, Routine, Intra-op midazolam (VERSED) injection Given 08/04/2020 2:32 PM CDT 2 mg ONCE INTRA PROCEDURE, Starting 08/04/20 at 1432, Until Fri08/04/20 at 1554, Routine, Intra-op ondansetron (ZOFRAN (PF)) injection Given 08/04/2020 3:14 PM CDT 4 mg ONCE INTRA PROCEDURE, Starting 08/04/20 at 1514, Until 08/04/20 at 1554, Routine, Intra-op PHENYLephrine 1000 mcg/10 mL in 0.9% NaCl Given 08/04/2020 3:23 PM CDT 100 mcg syringe ONCE INTRA PROCEDURE, Starting Fri08/04/20 at 1505, Until Fri08/04/20 at 1554, Routine, Intra-op Given 08/04/2020 3:05 PM CDT 100 mcg propofoL IV infusion Given 08/04/2020 2:38 PM CDT 200 mg ONCE INTRA PROCEDURE, Starting Fri08/04/20 at 1438, Until Fri08/04/20 at 1554, Routine, Intra-op documented in this encounter Insurance Payer Benefit Plan / Subscriber ID Effective Dates Phone Addre ss Type Group [facility] [id number] 2012-Presen Medicaid COMM PLAN - PLUS t MANAGED MEDICAID [id number] [facility] y (Home) [address] [place], [place] [address] documented as of this encounter Advance Directives Name Relationship Healthcare Agent Communication Relationship Vee Solo Mother Health Care Agent [phone] ( Mobile) Josey Schultz Other Health Care Agent
--- OUTSIDE RECORDS SUMMARY | 2020-08-29 14:06 | XMS REPORT | Summary of Care ---
:1985 Author Organization [facility] Address [address] [place] [address] Care Team Providers Name Role Phone Ashley Floyd Insurance Hmo Ashley Floyd Primary Care Provider Reason for Visit Reason Comments Assessment Encounter Details Date Type Department Care Team Description 08/09/2020 Telephone [facility] Orthopaedic Ezra Whyte MD Assessment Surgery- [address] [address] [place], [place] [phone] Allergies Active Allergy Reactions Severity Noted Date Comments Latex Rash 12/11/2017 Morphine Itching Low 08/04/2020 documented as of this encounter (statuses as of 08/09/2020) Medications Medication Sig Dispensed Refills Start Date End Date Status traZODONE 50 mg TAKE 1 TABLET BY 1 03/04/2019 Active tablet MOUTH EVERYDAY AT BEDTIME escitalopram oxalate TAKE 1 TABLET BY 03/04/2019 Active 10 mg tablet MOUTH EVERY MORNING amoxicillin-clavulana TK 1 T PO BID 0 12/06/2019 Active te 875-125 [address] per tablet [address] 1.5 mg tablet 0 11/15/2019 Active norethindrone-ethinyl 0 11/25/2019 Active estradiol 1-20 mg-mcg per tablet escitalopram oxalate TK 1 T PO QD 0 11/05/2019 Active 20 mg tablet PROAIR HFA 90 0 02/03/2020 Activ e mcg/actuation inhaler SYMBICORT 160-4.5 0 02/03/2020 A ctive mcg/actuation inhaler nystatin-triamcinolon Apply to 15 g 1 06/05/2020 Active e creamIndications: area(s) 3 Yeast infection of (three) times the skin daily. gabapentin 300 mg Take 1 capsule 90 capsule 1 08/04/202010/03 Active capsuleIndications: by mouth 3 Pain in wrist, (three) times unspecified daily for 60 laterality days. HYDROcodone-acetamino Take 1 tablet by 28 tablet 0 08/04/2020 08/11/2020 Active phen 5-325 mg mouth every 6 tabletIndications: (six) hours as acute pain needed for Pain (scale 4-6) for up to 7 days. Indications: acute pain ondansetron 4 mg Take 1 tablet by 28 tablet 1 08/04/202008/11 Active tabletIndications: mouth every 8 Pain in wrist, (eight) hours as unspecified needed for laterality Nausea and Vomiting (N/V) for up to 7 days. documented as of this encounter (statuses as of 08/09/2020) Active Problems Patient Care Coordination Note [facility] [...] Any questions please contact: John Manley MD [phone] Natalie Hightower MD [phone] Moises Frias MD [phone] Quick facts ? Patient randomized after delivery if t hey met inclusion criteria a nd accepted ? Medication comes from [facility] not pharmacy , [facility] Phone Number Ext. [phone] or cell ? Patient can start meds as soon as they tolerate PO ? One tab per day of either placebo or H CTZ ? Medication stays with patient ? Medication will appear on MAR, Nurses need to randy as given (No barcode) ? Medication needs to counted prior to d ischarge by research freight team associate ? 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 But never evaluated. 06/23/15 [facility] Stress test- negative. 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 Advised that this could be normal and due to swelling. Provided call back number. Discussed cap refill and ability to move fingers. elephone Encounter - Rubi López - 08/09/2020 12:25 PM CDTPatient called and stated she is having some bruising in her lt hand and she states her lt hand is cold. Please call patient back at [phone]. documented in this encounter Plan of Treatment Date Type Specialty Care Team Description 08/23/2020 Office Visit Orthopedic Surgery Nba Whyte MD [address] [place], [place] [id number] Health Maintenance Due Date Last Done Comments [...] Effective Dates Phone Addre ss Type Group [facility] [id number] 2012-Presen Medicaid COMM PLAN - PLUS t MANAGED MEDICAID documented as of this encounter Advance Directives Name Relationship Healthcare Agent Communication Relationship Vee Germania Mother Health Care Agent [phone] ( Mobile) Josey Schultz Other Health Care Agent
--- OUTSIDE RECORDS SUMMARY | 2020-08-29 14:06 | XMS REPORT | Summary of Care ---
:1985 Author Organization [facility] Address [address] [place] [id number] Care Team Providers Name Role Phone Ashley Floyd Insurance Hmo Ashley Floyd Primary Care Provider Reason for Referral Other (Routine) Status Reason Specialty Diagnoses / Referred By Referred To Procedures Contact Contact New Request Diagnoses Pain in wrist, unspecified laterality Torey Amador MD Faillace, John, Procedures Discharge Follow-up: Specialty Provider TOREY AMADOR; 2 Weeks 2239 El[address] Bharati LATIF [address] Phone: [phone] Phone: Fax: Reason for Visit Auth/Cert Status Reason Specialty Diagnoses / Procedures Referred By Ashley ontact Referred To Contact Surgery Diagnoses 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 Patient randomized after delivery if t tracy met inclusion criteria a nd accepted ? Medication comes from [facility] not pharmacy , [facility] Phone Number Ext. [phone] or cell ? 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 But never evaluated. 06/23/15 [place] Card Stress test- negative. H olter- Sinus rhythm with mild ectopy (35 isolated SVT) 06/21/15 Echo- EF=> 55%, no wall motion abnl, Mild MR, mild PVR Morbid obesity 09/06/2015 05/20/2017 Previous delivery affecting , antepartum 1 11/06/2014 04/11/2016 Overview: Prev x1 [facility]- Dr Bailey for ar rest of descent- [...] Sign Reading Time Taken Comments Blood Pressure 106/63 08/04/2020 4:35 PM CDT Pulse 74 08/04/2020 4:50 PM CDT Temperature 36.5 C (97.7 F) 08/04/2020 3:49 PM CDT Respiratory Rate 23 08/04/2020 4:50 PM CDT Oxygen Saturation 95% 08/04/2020 4:50 PM CDT Inhaled Oxygen Concentration - - Weight 124.7 kg (275 lb) 08/04/2020 1:08 PM CDT Height 154.9 cm (5' 1") 08/04/2020 1:08 PM CDT Body Mass Index 51.96 08/04/2020 1:08 PM CDT documented in this encounter Discharge Instructions Priti Rajput RN - 08/04/2020Discharge Instructions: Follow instructions as indicated below: 1. The medication that was used will be acting in your system for the next 24 hours, so you might feel a little drowsy, with impaired judgment and or motor function. This feeling should go wear off. Because the medication is still in your system for the next 24 hours you SHOULD NOT: Drive a car, operate machinery or power tool. Drink any alcohol beverages (including beer or wine). Make any important decisions or sign any legal documents. 2. You should rest the remainder of the day and not engage in any physical activity. Move slowly today. After lying down, sit on the edge of the bed for a moment before standing. YOU ARE RESPONSIBLEFOR HAVING SOMEONE AT HOME WITH YOU DURING THE AFTERNOON AND NIGHT IMMEDIATELY FOLLOWING YOUR SURGERY. Patient should cough and deep breathe every 2-4 hours while awake to avoid respiratory complications. 3. MEDICATION: Numbness will wear off about 12+ hours after surgery. Be sure to take medication at bedtime in case numbness wears off during the night. 4. ICE: 20 minutes on, 20 minutes off for the 1st 24 hours 5. MOTION: Very Important to try and make a fist as tight as you can and hold for 5 seconds. Then stretch fingers out as far as you can and hold for 5 seconds. This is 1 repetition and you need to do 5 repetitions every hours you are awake. 6. ELEVATE: The foam pillows' sole purpose is to keep your hand higher than your heart. It must be used to elevate for the 1st 72 hours or longer if needed. 7. Because the medications used could procedure some residual nausea and vomiting after you go home,you should eat lightly today, starting with clear liquids (broth, soft drinks, apple juice, jello) and toast or crackers, progressing to bland solid foods and then to your normal diet as tolerated, unle ss otherwise stated by your surgeon. If you get sick, wait a couple of hours and then begin to eat. After 24 hours the nausea should be gone. If your nausea persists, contact your physician. 8. You may experience some pain and your physician will advise you on what to take for discomfort. This should be taken as directed. If the pain is not relieved, contact your physician. You may alsohave a sore throat from the airway that was in place. You may uses lozenges, throat spray (such as C hloraseptic), or warm salt water gargles for symptomatic relief. 9. If you feel warm, take your temperature. If it is 101 degrees or above call your physician. 10. If you are unable to urinate within five hours after your procedure, call your physician. Contact Information Torey Amador MD ~ [phone] After Hours: [facility] Access Line [phone] and ask to speak to the Nurse On-Call documented in this encounter H&P Notes Jonathan Grijalva MD - 08/04/2020 1:21 PM CDT Interval History and Physical Date of Service: 08/04/2020 BP 127/84 | Pulse 85 | Temp 35.8 C (96.4 F) (Temporal Artery) | Resp 12 | Ht 1.549 m (5' 1") | Wt 124.7 kg (275 lb) | SpO2 98% | BMI 51.96 kg/m Vitals: 08/02/20 1232 08/04/20 1308 BP: 127/84 Pulse: 85 Resp: 12 Temp: 35.8 C (96.4 F) TempSrc: Temporal Artery SpO2: 98% Weight: 129.9 kg (286 lb 6 oz) 124.7 kg (275 lb) Height: 1.549 m (5' 1") Priscilla Solo was interviewed and examined today in the DSU/holding area/operating room beforeinduction of anesthesia. There have been no significant interval changes in the history or physical exam. Informed consent discussed with the patient, including: condition, proposed care, treatments and services, alternative forms of treatment, and risks of no treatment. Details discussed around the procedures to be used, and the risks and hazards involved, potential benefits, and side effects of the patients proposed care, treatment, and services; the likelihood of the patient achieving his or her goals; and any potential problems that might occur during recuperation. Reasonable alternative also discussed with the patients proposed care, treatment, and services. The discussion encompasses risks, benefits, and side effects related to the alternative and risks related to not receiving the proposed care, treatment, and services. The patient voiced understanding of the proposed intervention(s), as well as risks, benefits, alternatives. she wishes to proceed. Associated attestation - Torey Amador MD - 08/04/2020 1:34 PM CDTAfter reviewing all relevant clinical information and results and discussion with Dr. Grijalva, I examined the patient. I participated in and directed all medical decision making and I agree with resident's note as written. Torey Amador MD, FAAOS Board Certified Orthopedic Surgery Subspecialty Certified in Hand Surgery Chris Carrillo MD - 07/05/2020 11:10 AM [...] taking for the 07/05/20 encounter (Appointment) with Torey Amador MD. ROS Review of Systems (BOLDED if [...] Patient was seen and discussed with Dr. Amador After visit summary (AVS ) documentation will be available through [employer] for this encounter. A total of 6 minutes was spent on the Video Call with the patient. Level of service was [id number]. Chris Carrillo MD Hand Surgery PGY-2 documented in this encounter Procedure Notes Jonathan Grijalva MD - 08/04/2020 2:49 PM CDTProcedure(s): POSTERIOR INTEROSSEOUS NERVE NEURECTOMYPre-Procedure Diagnose(s): Kienbock's disease, left Post-Procedure Diagnose(s): Kienbock's disease, leftPatient Name: Priscilla Solo Date of Service: 08/04/2020 14:49 Faculty Physician: Isabell Resident Physician(s): Erinfeannie Anesthesia: General -LMA Preoperative Diagnosis: Left Kienbock's disease Postoperative Diagnosis: Left Kienbock's disease Procedure(s): Left posterior interosseous neurectomy Findings: successful neurectomy of left posterior interosseous nerve with burial of ends in soft tissue Complications: none Fluids: see anesthesia record Estimated Blood Loss: <1cc Specimen: none Drains: none Tourniquet time: 48 minutes Indications: Priscilla Solo is a 35 year old female with left-sided Kienbock's disease. After discussion of risks, benefits, alternatives, she elected for posterior interosseous neurectomy Informed consent discussed with the patient, including: condition, proposed care, treatments and services, alternative forms of treatment, and risks of no treatment. Details discussed around the procedures to be used, and the risks and hazards involved, potential benefits, and side effects of the patients proposed care, treatment, and services; the likelihood of the patient achieving his or her goals; and any potential problems that might occur during recuperation. Reasonable alternative also discussed with the patients proposed care, treatment, and services. The discussion encompasses risks, benefits, and side effects related to the alternative and risks related to not receiving the proposed care, treatment, and services. Procedure in detail: The patient was met in the holding area and the planned procedure was confirmed. The informed consent was reviewed. The surgical sites were marked. The patient was then transported to the operating room and was identified by the OR staff.She was placed in supine position. All bony prominences were padded and SCDs were applied and functioning. Formal time out was performed with the patient awake. General anesthesia was administered and the patient was intubated without complications. Prophylactic antibiotics were given. A tourniquet was applied to the left upper extremity The surgical sites were prepped and draped in the usual sterile fashion. The tourniquet was inflated to 250mmHg. An incision was made over the dorsal aspect of the left forearm starting between the radial head and ulna distally and extending 3cm proximally. Subcutaneous dissection was continued with tenotomy scissors. Small bridging vessels were coagulated with Bovie electr ocautery. Superficial cutaneous nerves were identified and protected. Dissection continued deeper until the third and fourth dorsal extensor compartment were encountered. The fourth dorsal compartment was incised using tenotomy scissors. Within the fourth dorsal compartment, the extensor digitorum communis tendons were each identified and retracted ulnarly. The posterior interosseus nerve was visualized traversing the floor of the fourth dorsal compartment longitudinally. The nerve was isolated and skeletonized from the surrounding soft tissue. Next, a 2cm segment of the posterior interosseous nerve was identified and transected from the distal and proximal ends to complete the neurectomy. Next, a 7-0 prolene suture was used to bury the proximal PIN stump into the extensor pollicis longus muscle. The distal end was buried into subcutaneous fat. The subcutaneous layer was closed with buried 5-0 Vicryl suture. The skin was closed with 4-0 nylon horizontal mattress suture. Ten milliliters of 0.25% marcaine was infiltrated around the incision. The incision was dressed with xeroform, gauze, and coban. The tourniquet was deflated. The patient was awaken, extubated and transferred to the PACU in stable condition. The patient tolerated the procedure well. Total count of instruments, sharps and sponges was correct times 2 at the end of the operation. Dr. Amador was present, scrubbed in, and supervising the entire procedure Jonathan Grijalva MD [phone] Associated attestation - Torey Amador MD - 08/04/2020 5:18 PM CDTI have reviewed and agree with Dr. Grijalva's operative note as written . In addition, I was present for and supervised the entire procedure(s). Please see the resident's note for additional details. Torey Amador MD, FAAOS Board Certified Orthopedic Surgery Subspecialty Certified in Hand Surgery documented in this encounter Miscellaneous Notes Nursing Note - Pam Wen RN - 08/03/2020 10:46 AM CDTPatient was identified with name and date during prescreening call. Procedure was verified. Discussed preop instructions with pt. NPO instructions discussed with patient nothing by mouth after midnight night before surgery to include gum, mints, hard candy, sucker, cough drops. Pt advised a small amount ( sips) of clear liquids (water, sprite, gatorade only) are allowed up until 2 hours prior to arrival time. Pt was advised to have a responsible adult with them DOS, patient was advised that they will receive a call the day before surgery with arrival time between 1 pm and 4 pm[address] was discussed with patient. Patient v/u. Patient schedule for pre sx COVID testing 08-03-20 @ 1530 @ [facility]. Pt v/u. documented in this encounter Plan of Treatment Health Maintenance Due Date Last Done Comments PAP SMEAR 05/20/2020 05/20/2017, 05/18/2014 INFLUENZA VACCINE (#1) 2020 10/16/2017 Depression Screening 08/04/2021 08/04/2020 DTaP,Tdap,and Td Vaccines (4 - Td) 10/16/2027 10/16/2017, 0 01/18/2016, 05/18/2014 PNEUMOCOCCAL 0-64 YEARS COMBINED Completed 05/11/2008 SERIES documented as of this encounter Results Not on filedocumented in this encounter Visit Diagnoses Diagnosis Pain in wrist, unspecified laterality - Primary documented in this encounter Administered Medications Medication Order MAR Action Action Date Dose Rate Site hyouqrvcxke-eckoebzqdkx-ii Given 08/04/2020 3:12 PM CDT 10 mL (SENSORCAINE W/EPINEPHRINE) 0.25 %-1:200,000 injection PRN, Starting 08/04/20 at 1512, Until Discontinued, Routine, Intra-op FENTanyl PF (SUBLIMAZE (PF)) injection 2 5 mcg 25 mcg, Slow IV Push, Q5MIN PRN, 4 doses, Starting 08/04/20 at 1554, Until Discontinued, Routine, Pain (scale 7-10), PACU Medication Order MAR Action Action Date Dose Rate Site ketorolac (TORADOL) injection 30 Given 08/04/2020 4:44 PM CDT 3 0 mg mg 30 mg, Slow IV Push, PRN, 1 dose, Starting 08/04/20 at 1554, Until Fri08/04/20 at 1644, Routine, Pain (scale 4-6), PACU, prepared foods service team member approving Restricted medication: PACU RECOVERY lactated ringers IV infusion New Bag 08/04/2020 1:29 PM CDT 1,000 mL 42 mL/hr 1,000 mL at 42 mL/hr, 1,000 mL, IV Infusion, ONCE, 1 dose, 08/04/20 at 1115, Routine, DSU Pre-op ondansetron (ZOFRAN (PF)) injection 4 mg Given 08/04/2020 4:01 PM CDT 4 mg 4 mg, Slow IV Push, PRN, 1 dose, Starting Fri08/04/20 at 1554, Until Fri08/04/20 at 1601, Routine, Nausea and Vomiting (N/V), PACU proMETHazine (PHENERGAN) 25 mg in NaCl 0.9% Given 08/04/2020 4:35 PM CDT 25 mg (NS) 50 mL IV piggyback 25 mg, IV Piggyback, ONCE, 1 dose, Fri08/04/20 at 1630, Routine, PACU documented in this encounter Insurance Payer Benefit Plan / Subscriber ID Effective Dates Phone Addre ss Type Group [facility] [id number] 2012-Presen Medicaid COMM PLAN - PLUS t MANAGED MEDICAID [id number] 1 documented as of this encounter Advance Directives Name Relationship Healthcare Agent Communication Relationship Vee Solo Mother Health Care Agent [phone] ( Mobile) Josey Schultz Other Health Care Agent
--- NOTE | 2020-08-29 15:17 | ER ---
Nurse's Notes [facility] Name: Priscilla Solo Age: 35 yrs Sex: Female : 1985 Arrival Date: 08/29/2020 Time: 13:21 Bed 23 Private MD: Diagnosis: Acute upper respiratory infection, unspecified Presentation: 08/29 13:41 Chief complaint: Patient states: Cough, runny nose for 1 week. No fever. Coronavirus ll1 screen: Client denies travel out of the [place] in the last 14 days. congestion, cough unrelated to allergies, Client presents with at least one sign or symptom that may indicate coronavirus-19. Standard/surgical mask placed on the client. Ebola Screen: Patient denies travel to an Ebola-affected area in the 21 days before illness onset. Initial Sepsis Screen: Does the patient meet any 2 criteria? No. Patient's initial sepsis screen is negative. Does the patient have a suspected source of infection? Yes: Productive cough/pneumonia. Risk Assessment: Do you want to hurt yourself or someone else? Patient reports no desire to harm self or others. Onset of symptoms was August 23, 2020. 13:41 Method Of Arrival: Ambulatory ll1 13:41 Acuity: ERIC 4 ll1 Historical: - Allergies: 13:43 No Known Allergies; ll1 - PMHx: 13:43 ADD/ADHD; Anxiety; cardiomyopathy; CHF; Hypertension; ll1 - PSHx: 13:43 ; ll1 - Immunization history:: Flu vaccine is not up to date. - Social history:: Smoking status: Patient denies any tobacco usage or history of. Screenin:00 Abuse screen: Denies threats or abuse. . Nutritional screening: No deficits noted. aa5 Tuberculosis screening: No symptoms or risk factors identified. Fall Risk None identified. Assessment: 14:00 General: Appears comfortable, Behavior is calm, cooperative. Pain: Denies pain. Neuro: aa5 Level of Consciousness is awake, alert, obeys commands, Oriented to person, place, time, situation. Cardiovascular: Heart tones S1 S2 present Rhythm is regular. Respiratory: Reports cough Airway is patent Respiratory effort is even, unlabored, Respiratory pattern is regular, symmetrical, Breath sounds are clear bilaterally. GI: Abdomen is round obese. : No signs and/or symptoms were reported regarding the genitourinary system. EENT: Reports nasal discharge that is watery. Derm: Skin is pink, warm \T\ dry. Musculoskeletal: Range of motion: intact in all extremities. 15:30 Reassessment: Patient is alert, oriented x 3, equal unlabored respirations, skin aa5 warm/dry/pink. Vital Signs: 13:41 BP 131 / 89; Pulse 88; Resp 17; Temp 98.4; Pulse Ox 97% ; Weight 124.74 kg; Height 5 ll1 ft. 1 in. (154.94 cm); Pain 0/10; 15:30 Pulse 77; Resp 18 S; Temp 97.3(TE); Pulse Ox 98% on R/A; aa5 13:41 Body Mass Index 51.96 (124.74 kg, 154.94 cm) ll1 ED Course: 13:21 Patient arrived in ED. ag5 13:42 Triage completed. ll1 13:43 Arm band placed on. ll1 13:45 Nai Nelson FNP-C [facility]. kb 13:45 Dillon Levine MD is Attending Physician. kb 14:00 Patient has correct armband on for positive identification. Bed in low position. Call aa5 light in reach. Side rails up X 1. 14:05 Ashtyn Brand, RN is Primary Nurse. aa5 14:18 Flu and/or RSV swab sent to lab. Strep swab sent to lab. Pt swabbed for COVID-19. jp3 15:45 No provider procedures requiring assistance completed. Patient did not have IV access aa5 during this emergency room visit. Administered Medications: No medications were administered Outcome: 15:17 Discharge ordered by . kb 15:45 Discharged to home ambulatory. aa5 15:45 Condition: good 15:45 Discharge instructions given to patient, Instructed on discharge instructions, follow up and referral plans. Demonstrated understanding of instructions, follow-up care, Instructed to quarantine for 14 days from onset of symptoms. 15:54 Patient left the ED. aa5 Addendum: 08/30/2020 17:10 Addendum: COVID-19 Result: Negative result given to RN to notify pt. Notified pt of s s negative COVID 19 swab results. Pt advised that even with a negative test result they should remain in isolation until symptom free for 3 days without medication. Pt also advised to return to the ED for worsening symptoms. Signatures: Nai Nelson, DENITA-C DENITA-Ashtyn Farrell, RN RN aa5 Nancy Zhu RN RN ss Markel Crowley 3 Hal Gold 5 Gutierrez Palafox RN RN ll1
--- NOTE | 2020-08-29 15:18 | EDPHYS ---
Physician Documentation [facility] Name: Priscilla Solo Age: 35 yrs Sex: Female : 1985 Arrival Date: 08/29/2020 Time: 13:21 Bed 23 Private MD: ED Physician Dillon Levine HPI: 08/29 13:51 This 35 yrs old Female presents to ER via Ambulatory with complaints of kb Cough, Runny Nose, Nausea/Vomiting. 13:51 The patient or guardian reports cough, that is intermittent, described as mild, with no kb sputum. Onset: The symptoms/episode began/occurred 1 week(s) ago. Severity of symptoms: At their worst the symptoms were mild, in the emergency department the symptoms are unchanged. Modifying factors: The symptoms are alleviated by nothing, the symptoms are aggravated by nothing. Associated signs and symptoms: Pertinent positives: rhinorrhea, Pertinent negatives: chest pain, diarrhea, ear ache, fever, nausea, sore throat, vomiting. The patient has experienced similar episodes in the past. The patient has not recently seen a physician. Pt states she has had sinus drainage and cough for a week. States "I think it is just the weather change, but my daughter's school said she needs to be tested for COVID to return because she has the cough too so I want us all to get the test.". Historical: - Allergies: 13:43 No Known Allergies; ll1 - PMHx: 13:43 ADD/ADHD; Anxiety; cardiomyopathy; CHF; Hypertension; ll1 - PSHx: 13:43 ; ll1 - Immunization history:: Flu vaccine is not up to date. - Social history:: Smoking status: Patient denies any tobacco usage or history of. ROS: 13:51 Constitutional: Negative for fever, chills, and weight loss, Cardiovascular: Negative kb for chest pain, palpitations, and edema, Abdomen/GI: Negative for abdominal pain, nausea, vomiting, diarrhea, and constipation, Back: Negative for injury and pain, MS/Extremity: Negative for injury and deformity, Skin: Negative for injury, rash, and discoloration, Neuro: Negative for headache, weakness, numbness, tingling, and seizure. 13:51 ENT: Positive for rhinorrhea. 13:51 Respiratory: Positive for cough, Negative for dyspnea on exertion, hemoptysis, orthopnea, pleurisy, shortness of breath, wheezing. Exam: 13:51 Constitutional: This is a well developed, well nourished patient who is awake, alert, kb and in no acute distress. Head/Face: Normocephalic, atraumatic. ENT: Nares patent. No nasal discharge, no septal abnormalities noted. Tympanic membranes are normal and external auditory canals are clear. Oropharynx with no redness, swelling, or masses, exudates, or evidence of obstruction, uvula midline. Mucous membranes moist. Neck: Trachea midline, no thyromegaly or masses palpated, and no cervical lymphadenopathy. Supple, full range of motion without nuchal rigidity, or vertebral point tenderness. No Meningismus. Chest/axilla: Normal chest wall appearance and motion. Nontender with no deformity. No lesions are appreciated. Cardiovascular: Regular rate and rhythm with a normal S1 and S2. No gallops, murmurs, or rubs. Normal PMI, no JVD. No pulse deficits. Respiratory: Lungs have equal breath sounds bilaterally, clear to auscultation and percussion. No rales, rhonchi or wheezes noted. No increased work of breathing, no retractions or nasal flaring. Abdomen/GI: Soft, non-tender, with normal bowel sounds. No distension or tympany. No guarding or rebound. No evidence of tenderness throughout. Skin: Warm, dry with normal turgor. Normal color with no rashes, no lesions, and no evidence of cellulitis. MS/ Extremity: Pulses equal, no cyanosis. Neurovascular intact. Full, normal range of motion. Neuro: Awake and alert, GCS 15, oriented to person, place, time, and situation. Cranial nerves II-XII grossly intact. Motor strength 5/5 in all extremities. Sensory grossly intact. Cerebellar exam normal. Normal gait. Vital Signs: 13:41 BP 131 / 89; Pulse 88; Resp 17; Temp 98.4; Pulse Ox 97% ; Weight 124.74 kg; Height 5 ll1 ft. 1 in. (154.94 cm); Pain 0/10; 15:30 Pulse 77; Resp 18 S; Temp 97.3(TE); Pulse Ox 98% on R/A; aa5 13:41 Body Mass Index 51.96 (124.74 kg, 154.94 cm) ll1 MDM: 13:45 Patient medically screened. kb 13:51 Data reviewed: vital signs, nurses notes. Data interpreted: Pulse oximetry: on room air kb is 97 %. Interpretation: normal. Counseling: I had a detailed discussion with the patient and/or guardian regarding: the historical points, exam findings, and any diagnostic results supporting the discharge/admit diagnosis, lab results, the need for outpatient follow up, a family practitioner, to return to the emergency department if symptoms worsen or persist or if there are any questions or concerns that arise at home. 08/29 13:47 Order name: Flu; Complete Time: 15:17 kb 08/29 13:47 Order name: Strep; Complete Time: 15:09 kb 08/29 13:47 Order name: COVID-19 kb 08/29 15:04 Order name: Throat Culture EDMS Administered Medications: No medications were administered Disposition: 16:35 Co-signature as Attending Physician, Dillon Levine MD. rn Disposition: 08/29/20 15:17 Discharged to Home. Impression: Acute upper respiratory infection, unspecified. - Condition is Stable. - Discharge Instructions: Allergic Rhinitis, Cough, Adult, Nyag-pd-Wwub, Viral Respiratory Infection, Tyug-Iq-Qfzv, COVID-19. - Medication Reconciliation Form, Thank You Letter, Antibiotic Education, Prescription Opioid Use form. - Follow up: Emergency Department; When: As needed; Reason: Worsening of condition. Follow up: Private Physician; When: 2 - 3 days; Reason: Recheck today's complaints, Continuance of care, Re-evaluation by your physician. Signatures: Dispatcher [employer] EDAZ Nai Nelson, DRUG SAFETY ASSOCIATE-C DRUG SAFETY ASSOCIATE-Ckb Dillon Levine MD MD rn Calderon, Audri, RN RN aa5 Gutierrez Palafox RN RN ll1 Corrections: (The following items were deleted from the chart) 15:54 15:17 08/29/2020 15:17 Discharged to Home. Impression: Acute upper respiratory aa5 infection, unspecified. Condition is Stable. Discharge Instructions: Allergic Rhinitis, Cough, Adult, Vrid-xu-Xhvs, Viral Respiratory Infection, Myhy-Gb-Xfgd. Forms are Medication Reconciliation Form, Thank You Letter, Antibiotic Education, Prescription Opioid Use. Follow up: Emergency Department; When: As needed; Reason: Worsening of condition. Follow up: Private Physician; When: 2 - 3 days; Reason: Recheck today's complaints, Continuance of care, Re-evaluation by your physician. kb
[2020-08-29 17:05] VITALS: BP 131/89
[2020-08-29 17:07] VITALS: TEMP 97.3; O2SAT 98
== END 2020-08-29 15:54 | disposition home or self-care (01) ==
LOC: ER 13:15
DX: J06.9 Acute upper respiratory infection, unspecified (principal); Z20.828 Contact with and (suspected) exposure to other viral communicable diseases; I10 Essential (primary) hypertension
CPT/HCPCS: 87070; 87081; 87804 ×2; 99283; U0002

== ENCOUNTER 2020-11-14 18:19 | Emergency (ER) | payer OTHER ==
--- OUTSIDE RECORDS SUMMARY | 2020-11-14 18:22 | XMS REPORT | Continuity of Care Document ---
:1985 Author Organization [facility] t Address [address] [place] [address] Care Team Providers Name Role Phone Isabell [...] Clinicians Facility Department ID 2020-08-09 2020-08-09 Telephone JORY Whyte 1.2.840.114 [id number] 00:00:00 00:00:00 [place] [facility] [id number] [facility] [id number] [place] AT [phone] [place] [address] [place] [address] 2020-08-04 2020-08-04 [facility] Isabell NEFRANCIE [id number] 11:12:00 17:25:00 Encounter [facility] [id number] [facility] [id number] [facility] [phone] [address] ([facility]) 2020-08-04 2020-08-[address] [facility] 1.2.840 .114 [id number] 14:32:00 15:44:00 Mirza Angeles SPECIALTY [id number] [facility] [id number] [place] AT [phone] BR[place] Alvarez [facility] 2020-08-04 2020-08-04 Orders Doctor TOREY [id number] 00:00:00 00:00:00 Only Unassigned, LUZ [id number] [place] [facility] [id number] 2020-08-03 2020-08-03 Laboratory Only, [facility] [id number] 14:49:11 15:04:01 Only Test Harjeet [id number] [place] [id number] [place] [phone] [id number] Results This patient has no known results.
--- NOTE | 2020-11-14 20:15 | RAD REPORT ---
EXAM DESCRIPTION: RAD - Ankle Right 3 View - 11/14/2020 7:46 pm CLINICAL HISTORY: PAIN, trip and fall 3 weeks earlier COMPARISON: Foot Right 3 View dated 11/14/2020 FINDINGS: No fracture, dislocation or periosteal reaction identified. There is a punctate 1- 2 kieran meter size bone density at the inferior tip of the medial malleolus. A punctate bone avulsion is poss ible ; however, soft tissues do not appear edematous in this region. Correlation is needed with any p ain symptoms near the medial malleolus. No joint effusion seen. No joint space narrowing. Mild latera l soft tissue swelling is present. Patient has early formation of plantar and Achilles spurs. IMPRESSION: No fracture confirmed. Lateral soft tissue swelling is present. Punctate bone density at the tip of the medial malleolus could potentially be a small bone avulsion i f the patient has symptoms along the medial ankle joint line.
--- NOTE | 2020-11-14 20:16 | RAD REPORT ---
EXAM DESCRIPTION: RAD - Foot Right 3 View - 11/14/2020 7:46 pm CLINICAL HISTORY: PAIN, trip and fall 3 weeks earlier with persistent pain COMPARISON: No comparisons FINDINGS: No fracture, dislocation or periosteal reaction. No acute bone or joint finding confirmed. Patient has early plantar and Achilles spur formation. No air or foreign body in the soft tissues. IMPRESSION: Negative right foot examination.
--- NOTE | 2020-11-14 20:17 | RAD REPORT ---
EXAM DESCRIPTION: RAD - Knee Right 3 View - 11/14/2020 7:49 pm CLINICAL HISTORY: PAIN, trip and fall 3 weeks earlier with persistent pain COMPARISON: No comparisons FINDINGS: No fracture, dislocation or periosteal reaction.No joint effusion seen. No joint space ryan rowing. Minimal medial compartment marginal spurs are present. Small spur is present along the inferi or margin of the patella. IMPRESSION: No acute bone or joint finding. Clinical concerns for internal derangement or occult bony injury could be further assessed with MR im aging.
--- NOTE | 2020-11-14 21:53 | ER ---
Nurse's Notes [facility] Name: Priscilla Solo Age: 35 yrs Sex: Female : 1985 Arrival Date: 11/14/2020 Time: 18:24 Bed 12 Private MD: Diagnosis: Pain in right ankle and joints of right foot Presentation: 11/14 19:19 Chief complaint: Patient states: Tripped and fell 3 weeks ago. Pain on R knee, R ankle ca1 and R foot. Coronavirus screen: Client denies travel out of the [place] in the last 14 days. At this time, the client does not indicate any symptoms associated with coronavirus-19. Ebola Screen: Patient negative for fever greater than or equal to 101.5 degrees Fahrenheit, and additional compatible Ebola Virus Disease symptoms Patient denies exposure to infectious person. Patient denies travel to an Ebola-affected area in the 21 days before illness onset. No symptoms or risks identified at this time. Initial Sepsis Screen: Does the patient meet any 2 criteria? No. Patient's initial sepsis screen is negative. Does the patient have a suspected source of infection? No. Patient's initial sepsis screen is negative. Risk Assessment: Do you want to hurt yourself or someone else? Patient reports no desire to harm self or others. Onset of symptoms was November 14, 2020. 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 - Social history:: Smoking status: Patient denies any tobacco usage or history of. Patient/guardian denies using alcohol, street drugs, The patient lives with family, with spouse. - Family history:: not pertinent. Vital Signs: 19:19 BP 142 / 89; Pulse 100; Resp 16; Temp 98.2(TE); Pulse Ox 98% on R/A; Weight 124.74 kg ca1 (R); Height 5 ft. 1 in. (154.94 cm) (R); Pain 8/10; 19:19 Body Mass Index 51.96 (124.74 kg, 154.94 cm) ca1 ED Course: 18:24 Patient arrived in ED. ds1 19:21 Triage completed. ca1 19:21 Arm band placed on right wrist. ca1 19:46 Ankle Right 3 View XRAY In Process Unspecified. EDMS 19:46 Foot Right 3 View XRAY In Process Unspecified. EDMS 19:46 Knee Right 3 View XRAY In Process Unspecified. EDMS 21:25 Som Gonzalez, RN is Primary Nurse. sg 21:26 Taylor Mejia MD is Attending Physician. ma2 Administered Medications: No medications were administered Outcome: 21:52 Discharge ordered by . jose carlos 22:02 Patient left the ED. sg Signatures: Dispatcher [employer] EDMS Som Gonzalez, MARE RN Nia Glez ds1 Taylor Mejia MD MD ma2 Acob, Cheryl, RN RN ca1
--- NOTE | 2020-11-14 21:53 | EDPHYS ---
Physician Documentation [facility] Name: Priscilla Solo Age: 35 yrs Sex: Female : 1985 Arrival Date: 11/14/2020 Time: 18:24 Bed 12 Private MD: ED Physician Taylor Mejia HPI: 11/14 21:50 This 35 yrs old Female presents to ER via Wheelchair with complaints of ma2 Ankle,Foot,Knee Pain. 21:50 The complaints affect the right foot. Onset: The symptoms/episode began/occurred ma2 suddenly, 3 week(s) ago. Associated signs and symptoms: Pertinent negatives: numbness, tingling, vomiting. Severity of symptoms: At their worst the symptoms were mild, in the emergency department the symptoms have improved. tripped and fell, 3 weeks ago here with right lateral malleolus pain of right ankle. she is able to walk.. . 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 - Social history:: Smoking status: Patient denies any tobacco usage or history of. Patient/guardian denies using alcohol, street drugs, The patient lives with family, with spouse. - Family history:: not pertinent. ROS: 21:50 MS/extremity: Positive for pain, Negative for decreased range of motion, deformity. ma2 21:50 Constitutional: Negative for fever, chills, and weight loss. 21:50 All other systems are negative. Exam: 21:50 Constitutional: This is a well developed, well nourished patient who is awake, alert, ma2 and in no acute distress. Chest/axilla: Normal chest wall appearance and motion. Nontender with no deformity. No lesions are appreciated. Cardiovascular: Regular rate and rhythm with a normal S1 and S2. No gallops, murmurs, or rubs. Normal PMI, no JVD. No pulse deficits. Respiratory: Lungs have equal breath sounds bilaterally, clear to auscultation and percussion. No rales, rhonchi or wheezes noted. No increased work of breathing, no retractions or nasal flaring. Abdomen/GI: Soft, non-tender, with normal bowel sounds. No distension or tympany. No guarding or rebound. No evidence of tenderness throughout. Skin: Warm, dry with normal turgor. Normal color with no rashes, no lesions, and no evidence of cellulitis. MS/ Extremity: Pulses equal, no cyanosis. Neurovascular intact. Full, normal range of motion. Neuro: Awake and alert, GCS 15, oriented to person, place, time, and situation. Cranial nerves II-XII grossly intact. Motor strength 5/5 in all extremities. Sensory grossly intact. Cerebellar exam normal. Normal gait. Vital Signs: 19:19 BP 142 / 89; Pulse 100; Resp 16; Temp 98.2(TE); Pulse Ox 98% on R/A; Weight 124.74 kg ca1 (R); Height 5 ft. 1 in. (154.94 cm) (R); Pain 8/10; 19:19 Body Mass Index 51.96 (124.74 kg, 154.94 cm) ca1 MDM: 21:26 Patient medically screened. ma2 21:50 Differential diagnosis: fracture, sprain, arthritis. Data reviewed: vital signs, nurses ma2 notes. Counseling: I had a detailed discussion with the patient and/or guardian regarding: the historical points, exam findings, and any diagnostic results supporting the discharge/admit diagnosis, the presence of at least one elevated blood pressure reading (>120/80) during this emergency department visit, the need for outpatient follow up. Response to treatment: the patient's symptoms have markedly improved after treatment. 11/14 19: Order name: Ankle Right 3 View XRAY; Complete Time: 21:35 ca1 11/14 19: Order name: Foot Right 3 View XRAY; Complete Time: 21:35 ca1 11/14 19:22 Order name: Knee Right 3 View XRAY; Complete Time: 21:35 ca1 Administered Medications: No medications were administered Disposition: 11/14/20 21:52 Discharged to Home. Impression: Pain in right ankle and joints of right foot. - Condition is Stable. - Discharge Instructions: Musculoskeletal Pain. - Prescriptions for Diclofenac Sodium 75 mg Oral Tablet Sustained Release - take 1 tablet by ORAL route 2 times per day; 30 tablet. - Work release form, Medication Reconciliation Form, Thank You Letter, Antibiotic Education, Prescription Opioid Use form. - Follow up: Private Physician; When: Tomorrow; Reason: Continuance of care. Signatures: Dispatcher [employer] Som Cedillo RN RN sg Taylor Mejia MD MD ma2 Ana Presley RN RN ca1 Corrections: (The following items were deleted from the chart) 22:02 21:52 11/14/2020 21:52 Discharged to Home. Impression: Pain in right ankle and joints sg of right foot. Condition is Stable. Forms are Medication Reconciliation Form, Thank You Letter, Antibiotic Education, Prescription Opioid Use. Follow up: Private Physician; When: Tomorrow; Reason: Continuance of care. ma2
[2020-11-14 22:21] VITALS: BP 142/89; TEMP 98.2; O2SAT 98
== END 2020-11-14 22:02 | disposition home or self-care (01) ==
LOC: ER 18:19
DX: M25.571 Pain in right ankle and joints of right foot (principal); I10 Essential (primary) hypertension
CPT/HCPCS: 99282

== ENCOUNTER 2021-03-14 13:08 | Emergency (ER) | payer OTHER ==
--- OUTSIDE RECORDS SUMMARY | 2021-03-14 13:11 | XMS REPORT | Continuity of Care Document ---
:1985 Author Organization [facility] t Address [address] [place] [address] Care Team Providers Name Role Phone Home Sneed DO Attending Clinician Isabell LATIF Attending Clinician Bishop GARVEY Attending Clinician Unavailable Joe Angeles MD Attending Clinician Doctor Unassigned, Name Attending Clinician [...] Date/Time Type Type Clinicians Facility Department ID 2021-01-15 2021-01-15 Patient Nraen [facility] 1.2.840.114 [id number] 00:00:00 00:00:00 Outreach Harjit PRIMARY [id number] Home CARE [id number] [facility] [phone] [id number] 2020-08-09 2020-08-09 Telephone [facility] 1.2.840.114 [id number] 00:00:00 00:00:00 [place] SPECIALTY [id number] CARE [id number] CENTER AT [phone] [address] 2020-08-04 2020-08-04 [facility] 1.2.840.114 [id number] 11:12:00 17:25:00 Encounter [facility] [id number] [place] [id number] [facility] [phone] [address] ([facility]) 2020-08-04 2020-08-04 Anesthesia Ashley Alas [facility] 1.2.840 .114 [id number] 14:32:00 15:44:00 Mirza Angeles SPECIALTY [id number] [facility] [id number] [facility] [id number] [place]ADLEY Alvarez [facility] 2020-08-04 2020-08-04 Orders Doctor TOREY 1.2.840.114 [id number] 00:00:00 00:00:00 Only Unassigned, LUZ [id number] [place] [facility] [id number] [id number] 2020-08-03 2020-08-03 Laboratory Only, [facility] 1.2.840.114 [id number] 14:49:11 15:04:01 Only Test Harjeet [id number] [place] [id number] [place] [id number] [id number] Results This patient has no known results.
[2021-03-14 14:02] LABS: Absolute Lymphocytes (CBC) 3.2 K/uL (0.7-4.9); Basophils % 0.4 % (0-1.3); Lymphocytes % 32.3 % (15.3-44.8); MPV 9.2 fL (7.6-11.3); RBC Red Blood Cell Count 5.02 M/uL (3.86-4.86)
--- NOTE | 2021-03-14 14:11 | RAD REPORT ---
EXAM DESCRIPTION: CTAbdomen Pelvis W Contrast - 03/14/2021 2:03 pm CLINICAL HISTORY: Abdominal pain. ABD PAIN COMPARISON: Abdomen Pelvis W Contrast dated 01/15/2019; CT ABD PELVIS W CONTRAST dated 03/11/2013 TECHNIQUE: Biphasic CT imaging of the abdomen and pelvis was performed with 100 ml non-ionic IV cont rast. All CT scans are performed using dose optimization technique as appropriate and may include automated exposure control or mA/KV adjustment according to patient size. FINDINGS: The lung bases are clear. Advanced diffuse fatty liver. No aggressive liver lesion or biliary dilatation. The spleen, adrenal g lands and kidneys are within normal limits. Pancreas is unremarkable. No bowel obstruction, free air, free fluid or abscess. Appendectomy. No evidence of significant lym phadenopathy. No suspicious bony findings. IMPRESSION: No acute intra-abdominal or pelvic finding. Advanced fatty liver.
[2021-03-14] MEDS ORDERED: MORPHINE 4 MG/ML SYR ONE (14:17)
[2021-03-14] MEDS ORDERED: ONDANSETRON 4 MG/2 ML VIAL ONE (14:17)
[2021-03-14 14:24] LABS: Albumin 3.7 g/dL (3.4-5.0); Bilirubin Direct 0.2 mg/dL (0-0.2); Bilirubin Total 0.6 mg/dL (0.2-1.0); Potassium 4.1 mmol/L (3.5-5.1); Protein, Total 7.1 g/dL (6.4-8.2)
--- NOTE | 2021-03-14 14:33 | RAD REPORT ---
EXAM DESCRIPTION: US - Pelvis Complete - 03/14/2021 2:23 pm CLINICAL HISTORY: pelvic pain Pelvic pain. COMPARISON: PELVIC COMPLETE dated 07/17/2015 FINDINGS: The uterus is normal in size, shape and echotexture. The uterus measures 10.4 x 5.7 x 4.3 cm. The endometrial stripe measures 5 mm, normal. Both ovaries are normal in size, shape and echotexture. The right ovary measures 2.4 x 2.2 x 1.8 cm. The left ovary measures 3.0 x 2.8 x 1.9 cm. No ovarian or parovarian lesions. No adnexal masses. Normal Doppler blood flow was demonstrated to both ovaries. No significant pelvic ascites. IMPRESSION: Unremarkable study.
[2021-03-14] MEDS ORDERED: CODEINE 30MG/APAP 300MG TAB ONE (14:46)
[2021-03-14 14:51] LABS: Urine Blood Negative (Negative); Urine Glucose Negative (Negative); Urine Protein Negative (Negative); Urine Specific Gravity 1.015 (1.005-1.030); Urine pH 5.5 (5.0-7.0)
--- NOTE | 2021-03-14 16:10 | ER ---
Nurse's Notes [facility] Name: Priscilla Solo Age: 35 yrs Sex: Female : 1985 Arrival Date: 03/14/2021 Time: 13:09 Bed 5 Private MD: Diagnosis: Lower abdominal pain, unspecified;Urinary tract infection, site not specified Presentation: 03/14 13:20 Chief complaint: Patient states: RLQ pelvic pain that radiates into R lower back for 3 ll1 months. No fever. + nausea. Coronavirus screen: Client denies travel out of the [place] in the last 14 days. At this time, the client does not indicate any symptoms associated with coronavirus-19. Ebola Screen: Patient denies travel to an Ebola-affected area in the 21 days before illness onset. Initial Sepsis Screen: Does the patient meet any 2 criteria? No. Patient's initial sepsis screen is negative. Does the patient have a suspected source of infection? Yes: Acute abdominal pain. Risk Assessment: Do you want to hurt yourself or someone else? Patient reports no desire to harm self or others. Onset of symptoms was December 15, 2020. 13:20 Method Of Arrival: Ambulatory ll1 13:20 Acuity: ERIC 3 ll1 Historical: - Allergies: 13:20 No Known Allergies; ll1 - PMHx: 13:12 ADD/ADHD; Anxiety; cardiomyopathy; CHF; Hypertension; ll1 - PSHx: 13:12 ; ll1 13:20 Tubal ligation; ll1 - Immunization history:: Flu vaccine is not up to date. - Social history:: Smoking status: Patient denies any tobacco usage or history of. Screenin:54 Abuse screen: Denies threats or abuse. Nutritional screening: No deficits noted. jd3 Tuberculosis screening: No symptoms or risk factors identified. Fall Risk Ambulatory Aid- None/Bed Rest/Nurse Assist (0 pts). Gait- Normal/Bed Rest/Wheelchair (0 pts) Mental Status- Oriented to own ability (0 pts). Total Yang Fall Scale indicates No Risk (0-24 pts). Assessment: 13:53 General: Appears in no apparent distress. comfortable, Behavior is calm, cooperative, jd3 appropriate for age. Pain: Complains of pain in right lower quadrant Quality of pain is described as sharp, tender. Neuro: Level of Consciousness is awake, alert, obeys commands, Oriented to person, place, time, situation. Cardiovascular: Denies chest pain, Capillary refill < 3 seconds Patient's skin is warm and dry. Respiratory: Airway is patent Respiratory effort is even, unlabored, Respiratory pattern is regular, symmetrical, Denies cough, shortness of breath. GI: Abdomen is round non-distended, Abd is soft X 4 quads Abdomen is tender to palpation in right lower quadrant Reports nausea. : No signs and/or symptoms were reported regarding the genitourinary system. EENT: No signs and/or symptoms were reported regarding the EENT system. Derm: Skin is intact, Skin is dry, Skin is normal, Skin temperature is warm. Musculoskeletal: Circulation, motion, and sensation intact. Range of motion: intact in all extremities. 14:31 Reassessment: Patient appears in no apparent distress at this time. No changes from jd3 previously documented assessment. Patient and/or family updated on plan of care and expected duration. Pain level reassessed. Patient is alert, oriented x 3, equal unlabored respirations, skin warm/dry/pink. Vital Signs: 13:20 BP 154 / 99; Pulse 84; Resp 18; Temp 98.3; Pulse Ox 97% ; Weight 129.27 kg; Height 5 ll1 ft. 1 in. (154.94 cm); Pain 5/10; 14:31 BP 141 / 99; Pulse 62; Resp 17 S; Pulse Ox 100% on R/A; jd3 13:20 Body Mass Index 53.85 (129.27 kg, 154.94 cm) ll1 ED Course: 13:09 Patient arrived in ED. am2 13:12 Arm band placed on. ll1 13:21 Triage completed. ll1 13:22 Patient placed in an exam room, on a stretcher. ll1 13:24 Lupillo Martínez PA is PHCP. [facility] 13:24 Dillon Levine MD is Attending Physician. [facility] 13:29 Reginaldo Paris RN is Primary Nurse. jd3 13:53 Inserted saline lock: 22 gauge in left antecubital area, using aseptic technique. Blood jd3 collected. 13:54 Patient has correct armband on for positive identification. Bed in low position. Call jd3 light in reach. Side rails up X 1. Pulse ox on. NIBP on. 16:09 Helena Alcazar MD is Referral Physician. [facility] 16:17 No provider procedures requiring assistance completed. IV discontinued, intact, tr6 bleeding controlled, No redness/swelling at site. Pressure dressing applied. Administered Medications: 14:31 Not Given (Patient Refused; reported allergy to med): morphine 4 mg IVP once; RASS on jd3 ADMIN: Combtv4, Very Agttd3, Agttd2, Rstlss1, AlertClm0, Drwsy-1, Lt Sdtn-2, Mod Sdtn-3, Dp Sdtn-4, UnArsble-5 14:32 Drug: Zofran (Ondansetron) 4 mg Route: IVP; Site: left antecubital; jd3 14:32 Drug: Tylenol #3 (300 mg-30 mg) 1 tablet Route: PO; jd3 Outcome: 16:09 Discharge ordered by . [facility] 16:18 Discharged to home ambulatory. tr6 16:18 Condition: stable 16:18 Discharge instructions given to patient, Instructed on discharge instructions, follow up and referral plans. no drinking with medication, no driving heavy equipment, medication usage, safety practices, Demonstrated understanding of instructions, follow-up care, medications, Prescriptions given X 4. 16:33 Patient left the ED. tr6 Signatures: Lupillo Martínez PA PA Nannette Quintero am2 Reginaldo Paris RN RN jd3 Gutierrez Palafox RN RN ll1 Elizabeth Barragan RN RN tr6 Corrections: (The following items were deleted from the chart) 13:22 13:20 BP 142 / ???; Pulse 84bpm; Resp 18bpm; Pulse Ox 97%; Temp 98.3F; 129.27 kg; ll1 Height 5 ft. 1 in.; BMI: 53.8; Pain 5/10; ll1
--- NOTE | 2021-03-14 16:10 | EDPHYS ---
Physician Documentation [facility] Name: Priscilla Solo Age: 35 yrs Sex: Female : 1985 Arrival Date: 03/14/2021 Time: 13:09 Bed 5 Private MD: ED Physician Dillon Levine HPI: 03/14 13:49 This 35 yrs old Female presents to ER via Ambulatory with complaints of jmm Nausea, Abdominal Pain - rlq. 13:49 The patient presents to the emergency department with nausea, abdominal pain. Onset: jmm The symptoms/episode began/occurred gradually, 3 month(s) ago. Possible causes: unknown. The symptoms are aggravated by nothing. The symptoms are alleviated by nothing. Associated signs and symptoms: Pertinent positives: abdominal pain, Pertinent negatives: dysuria, fever. Pain radiates to her lower back. Denies vomiting or diarrhea. Historical: - Allergies: 13:20 No Known Allergies; ll1 - PMHx: 13:12 ADD/ADHD; Anxiety; cardiomyopathy; CHF; Hypertension; ll1 - PSHx: 13:12 ; ll1 13:20 Tubal ligation; ll1 - Immunization history:: Flu vaccine is not up to date. - Social history:: Smoking status: Patient denies any tobacco usage or history of. ROS: 13:49 Constitutional: Negative for fever, chills, and weight loss, Cardiovascular: Negative jmm for chest pain, palpitations, and edema, Respiratory: Negative for shortness of breath, cough, wheezing, and pleuritic chest pain. 13:49 Abdomen/GI: Positive for abdominal pain. 13:49 All other systems are negative. Exam: 13:49 Constitutional: This is a well developed, well nourished patient who is awake, alert, jmm and in no acute distress. Head/Face: atraumatic. Eyes: EOMI, no conjunctival erythema appreciated ENT: Moist Mucus Membranes Neck: Trachea midline, Supple Chest/axilla: Normal chest wall appearance and motion. Cardiovascular: Regular rate and rhythm. No edema appreciated Respiratory: Normal respirations, no respiratory distress appreciated 13:49 Abdomen/GI: Inspection: abdomen appears normal, Bowel sounds: normal, Palpation: soft, mild abdominal tenderness, in the suprapubic area and right lower quadrant. 13:49 Back: ROM is normal. 13:49 Musculoskeletal/extremity: ROM: intact in all extremities. 13:49 Skin: Appearance: Color: normal in color. 13:49 Neuro: Orientation: is normal, Mentation: is normal, Memory: is normal. 13:49 Psych: Behavior/mood is pleasant, cooperative. Vital Signs: 13:20 BP 154 / 99; Pulse 84; Resp 18; Temp 98.3; Pulse Ox 97% ; Weight 129.27 kg; Height 5 ll1 ft. 1 in. (154.94 cm); Pain 5/10; 14:31 BP 141 / 99; Pulse 62; Resp 17 S; Pulse Ox 100% on R/A; jd3 13:20 Body Mass Index 53.85 (129.27 kg, 154.94 cm) ll1 MDM: 13:30 Patient medically screened. [facility] 16:08 Data reviewed: vital signs, nurses notes. Counseling: I had a detailed discussion with karthikeyan the patient and/or guardian regarding: the historical points, exam findings, and any diagnostic results supporting the discharge/admit diagnosis, lab results, radiology results, the need for outpatient follow up, to return to the emergency department if symptoms worsen or persist or if there are any questions or concerns that arise at home. ED course: Imaging studies negative. Patient advised to follow up with obstetrician and gynaecologist for further evaluation. Patient is otherwise given strict return precautions. patient understood and agrees with the plan of care. . 03/14 13:41 Order name: Basic Metabolic Panel [facility] 03/14 13:41 Order name: CBC with Diff [facility] 03/14 13:41 Order name: Hepatic Function [facility] 03/14 13:41 Order name: Lipase [facility] 03/14 14:09 Order name: CBC with Automated Diff; Complete Time: 14:23 [facility] 03/14 14:24 Order name: Basic Metabolic Panel; Complete Time: 15:30 [facility] 03/14 13:41 Order name: US Pelvis Complete [facility] 03/14 13:41 Order name: CT Abd/Pelvis - IV Contrast Only [facility] 03/14 14:12 Order name: CT; Complete Time: 14:23 [facility] 03/14 14:24 Order name: Liver (Hepatic) Function; Complete Time: 15:30 [facility] 03/14 14:24 Order name: Lipase; Complete Time: 15:30 [facility] 03/14 14:33 Order name: US; Complete Time: 15:30 [facility] 03/14 14:52 Order name: Urine Dipstick-Ancillary; Complete Time: 15:30 [facility] 03/14 14:55 Order name: Urine --Ancillary (enter results) bd 03/14 13:41 Order name: IV Saline Lock; Complete Time: 13:53 [facility] 03/14 13:41 Order name: Labs collected and sent; Complete Time: 13:53 [facility] 03/14 13:41 Order name: Urine Dipstick-Ancillary (obtain specimen); Complete Time: 14:51 [facility] 03/14 13:41 Order name: Urine Test (obtain specimen); Complete Time: 14:51 [facility] Administered Medications: 14:31 Not Given (Patient Refused; reported allergy to med): morphine 4 mg IVP once; RASS on jd3 ADMIN: Combtv4, Very Agttd3, Agttd2, Rstlss1, AlertClm0, Drwsy-1, Lt Sdtn-2, Mod Sdtn-3, Dp Sdtn-4, UnArsble-5 14:32 Drug: Zofran (Ondansetron) 4 mg Route: IVP; Site: left antecubital; jd3 14:32 Drug: Tylenol #3 (300 mg-30 mg) 1 tablet Route: PO; jd3 Disposition: 17:30 Co-signature as Attending Physician, Dillon Levine MD. rn Disposition: 03/14/21 16:09 Discharged to Home. Impression: Lower abdominal pain, unspecified, Urinary tract infection, site not specified. - Condition is Stable. - Discharge Instructions: Abdominal Pain, Adult. - Prescriptions for Augmentin 875- 125 mg Oral Tablet - take 1 tablet by ORAL route every 12 hours for 10 days; 20 tablet. Bentyl 20 mg Oral Tablet - take 1 tablet by ORAL route every 6 hours As needed; 20 tablet. Ultracet 37.5- 325 mg Oral Tablet - take 1 tablet by ORAL route every 6 hours - for up to 5 days; do not exceed 8 tablets per day.; 30 tablet. Zofran ODT 4 mg Oral tablet,disintegrating - place 1 tablet by TRANSLINGUAL route every 4-6 hours; 20 tablet. - Medication Reconciliation Form, Thank You Letter, Antibiotic Education, Prescription Opioid Use form. - Follow up: Helena Alcazar MD; When: 2 - 3 days; Reason: Recheck today's complaints, Continuance of care, Re-evaluation by your physician. Signatures: Dispatcher [employer] EDLupillo Kwong PA PA jmm Nieto, Roman, MD MD rn Davies, Jonathon, RN RN jd3 Gutierrez Palafox RN RN ll1 Elizabeth Barragan RN RN tr6 Corrections: (The following items were deleted from the chart) 16:10 16:09 03/14/2021 16:09 Discharged to Home. Impression: Lower abdominal pain, jmm unspecified. Condition is Stable. Forms are Medication Reconciliation Form, Thank You Letter, Antibiotic Education, Prescription Opioid Use. Follow up: Helena Alcazar; When: 2 - 3 days; Reason: Recheck today's complaints, Continuance of care, Re-evaluation by your physician. [facility] 16:33 16:10 03/14/2021 16:09 Discharged to Home. Impression: Lower abdominal pain, tr6 unspecified; Urinary tract infection, site not specified. Condition is Stable. Discharge Instructions: Abdominal Pain, Adult. Prescriptions for Augmentin 875-125 mg Oral Tablet - take 1 tablet by ORAL route every 12 hours for 10 days; 20 tablet, Bentyl 20 mg Oral Tablet - take 1 tablet by ORAL route every 6 hours As needed; 20 tablet, Ultracet 37.5-325 mg Oral Tablet - take 1 tablet by ORAL route every 6 hours - for up to 5 days; do not exceed 8 tablets per day.; 30 tablet. and Forms are Medication Reconciliation Form, Thank You Letter, Antibiotic Education, Prescription Opioid Use. Follow up: Helena Alcazar; When: 2 - 3 days; Reason: Recheck today's complaints, Continuance of care, Re-evaluation by your physician. [facility]
[2021-03-14 16:48] VITALS: TEMP 98.3
[2021-03-14 16:50] VITALS: BP 141/99; O2SAT 100
[2021-03-14 20:27] LABS: Urine Specific Gravity/Preg 1.015 (1.005-1.030)
== END 2021-03-14 16:33 | disposition home or self-care (01) ==
LOC: ER 13:08
DX: N39.0 Urinary tract infection, site not specified (principal); I10 Essential (primary) hypertension
CPT/HCPCS: 85025; 80048; 36415; 81025; 82565; 80076; 81003; 83690; 74177; 76856; Q9967; J2405; 96374; 99284

== ENCOUNTER 2021-05-22 13:30 | Emergency (ER) | payer OTHER ==
--- OUTSIDE RECORDS SUMMARY | 2021-05-22 13:32 | XMS REPORT | Continuity of Care Document ---
:1985 Author Organization [facility] t Address [address] [place] [address] Care Team Providers Name Role Phone Home [...] Clinicians Facility Department ID 2021-01-15 2021-01-15 Patient Naren [facility] [id number] 00:00:00 00:00:00 Outreach Harjit PRIMARY [id number] Home CARE [id number] PAVILLION [id number] [id number] 2020-08-09 2020-08-09 Telephone [facility] [id number] 00:00:00 00:00:00 [place] SPECIALTY [id number] CARE [id number] CENTER AT [id number] [address] 2020-08-04 2020-08-04 [facility] [id number] 11:12:00 17:25:00 Encounter [facility] [id number] Mike [id number] [facility] [id number] [address] ([facility]) 2020-08-04 2020-08-04 Anesthesia Ashley Alas [facility] [id number] 14:32:00 15:44:00 Mirza [place] SPECIALTY [id number] [facility] [id number] [facility] [id number] BRADLEY Alvarez [facility] 2020-08-04 2020-08-04 Orders Doctor T[place] [id number] 00:00:00 00:00:00 Only Unassigned, LUZ [id number] [place] [facility] [id number] 2020-08-03 2020-08-03 Laboratory Only, [facility] [id number] 14:49:11 15:04:01 Only Test Harjeet [id number] Stefani [id number] [place] [phone] [id number] Results This patient has no known results.
[2021-05-22 16:14] LABS: SARS-COV-2 RT PCR NEGATIVE (NEGATIVE)
[2021-05-22] MEDS ORDERED: LEVALBUTEROL 1.25 MG/3 ML NEB ONE (16:34)
--- NOTE | 2021-05-22 18:16 | ER ---
Nurse's Notes [facility] Name: Priscilla Solo Age: 35 yrs Sex: Female : 1985 Arrival Date: 05/22/2021 Time: 13:33 Bed DIS17 Private MD: Kelsey Floyd C Diagnosis: Acute serous otitis media, bilateral;Acute pharyngitis, unspecified;Acute upper respiratory infection, unspecified Presentation: 05/22 14:06 Chief complaint: Patient states: Cough and congestion x 1 week. Coronavirus screen: kg Client denies travel out of the [place] in the last 14 days. At this time, unable to obtain information related to travel outside the [place] At this time, the client does not indicate any symptoms associated with coronavirus-19. Ebola Screen: Patient negative for fever greater than or equal to 101.5 degrees Fahrenheit, and additional compatible Ebola Virus Disease symptoms Patient denies exposure to infectious person. Patient denies travel to an Ebola-affected area in the 21 days before illness onset. Initial Sepsis Screen: Does the patient meet any 2 criteria? No. Patient's initial sepsis screen is negative. Does the patient have a suspected source of infection? No. Patient's initial sepsis screen is negative. Risk Assessment: Do you want to hurt yourself or someone else? Patient reports no desire to harm self or others. Onset of symptoms was May 14, 2021. 14:06 Method Of Arrival: Ambulatory kg 14:06 Acuity: ERIC 4 kg Triage Assessment: 14:09 General: Appears in no apparent distress. Behavior is calm, cooperative, appropriate kg for age, quiet. Pain: Denies pain. Respiratory: Reports cough that is productive, Airway is patent Trachea midline Respiratory effort is even, unlabored, relaxed, Respiratory pattern is regular. Historical: - Allergies: 14:08 Trazodone; kg 14:08 citalopram; kg - Home Meds: 14:08 Lexapro Oral [Active]; kg - PMHx: 14:08 ADD/ADHD; Anxiety; cardiomyopathy; CHF; Hypertension; kg - PSHx: 14:09 None; kg - Immunization history:: Adult Immunizations up to date, Client reports having NOT received the Covid vaccine. - Social history:: Smoking status: Patient denies any tobacco usage or history of. Screenin:11 Abuse screen: Denies threats or abuse. Denies injuries from another. Nutritional kg screening: No deficits noted. Tuberculosis screening: No symptoms or risk factors identified. Fall Risk None identified. Assessment: 15:49 General: Appears in no apparent distress. comfortable, Behavior is calm, cooperative. ss Pain: Denies pain. Neuro: Level of Consciousness is awake, alert, obeys commands, Denies dizziness. Cardiovascular: Capillary refill < 3 seconds is brisk in bilateral fingers Patient's skin is warm and dry. Respiratory: Airway is patent Respiratory effort is even, unlabored, Respiratory pattern is regular, symmetrical. Respiratory: Airway is patent Respiratory effort is even, unlabored, Respiratory pattern is regular, symmetrical. Respiratory: Reports cough that is Respiratory effort is even, unlabored. Respiratory: Breath sounds are clear bilaterally. GI: Abdomen is non-distended. EENT: Oral mucosa is moist. Throat is clear. Derm: Skin is intact, is healthy with good turgor, Skin is pink, warm \T\ dry. normal. Musculoskeletal: Circulation, motion, and sensation intact. Range of motion: Swelling absent. 17:13 Reassessment: Patient appears in no apparent distress at this time. Patient and/or ss family updated on plan of care and expected duration. Pain level reassessed. Patient is alert, oriented x 3, equal unlabored respirations, skin warm/dry/pink. Vital Signs: 14:06 BP 127 / 79; Pulse 87; Resp 20; Temp 98.0(O); Pulse Ox 99% on R/A; Weight 129.27 kg kg (M); Height 5 ft. 1 in. (154.94 cm) (R); Pain 0/10; 14:06 Body Mass Index 53.85 (129.27 kg, 154.94 cm) kg ED Course: 13:33 Patient arrived in ED. am2 13:34 Kelsey Floyd FNP is Private Physician. am2 14:08 Triage completed. kg 14:09 Arm band placed on. EKG completed in triage. Results shown to MD. kg 14:11 Patient has correct armband on for positive identification. kg 14:39 Lupillo Mart[facility]. jm 14:39 Dillon Levine MD is Attending Physician. [facility] 15:49 Nancy Zhu, RN is Primary Nurse. 17:13 No provider procedures requiring assistance completed. Patient did not have IV access ss during this emergency room visit. Administered Medications: 16:15 Drug: Xopenex (levalbuterol) 1.25 mg Route: Inhalation; Outcome: 16:57 Discharge ordered by . karthiekyan 17:13 Discharged to home ambulatory, with family. 17:13 Condition: good 17:13 Discharge instructions given to patient, family, Instructed on discharge instructions, follow up and referral plans. medication usage, Demonstrated understanding of instructions, follow-up care, medications, Prescriptions given X 2. 17:14 Patient left the ED. Signatures: Lupillo Martínez PA PA jmm Smirch, Shelby, RN RN Nannette Hawley Kristen, MARE RN kg
--- NOTE | 2021-05-22 18:16 | EDPHYS ---
Physician Documentation [facility] Name: Priscilla Solo Age: 35 yrs Sex: Female : 1985 Arrival Date: 05/22/2021 Time: 13:33 Bed DIS17 Private MD: Kelsey Floyd C ED Physician Dillon Levine HPI: 05/22 16:27 This 35 yrs old Female presents to ER via Ambulatory with complaints of jmm Cough, Congestion. 16:27 The patient or guardian reports cough. Onset: The symptoms/episode began/occurred jmm gradually, 1 week(s) ago. 16:54 Modifying factors: The symptoms are alleviated by nothing, the symptoms are aggravated jmm by nothing. Associated signs and symptoms: Pertinent positives: earache, sore throat, Pertinent negatives: fever. The patient has experienced similar episodes in the past. Historical: - Allergies: 14:08 Trazodone; kg 14:08 citalopram; kg - Home Meds: 14:08 Lexapro Oral [Active]; kg - PMHx: 14:08 ADD/ADHD; Anxiety; cardiomyopathy; CHF; Hypertension; kg - PSHx: 14:09 None; kg - Immunization history:: Adult Immunizations up to date, Client reports having NOT received the Covid vaccine. - Social history:: Smoking status: Patient denies any tobacco usage or history of. ROS: 16:54 Neck: Negative for injury, pain, and swelling, Cardiovascular: Negative for chest pain, jmm palpitations, and edema. 16:54 Constitutional: Positive for chills. 16:54 ENT: Positive for ear pain, sore throat. 16:54 Respiratory: Positive for cough. 16:54 All other systems are negative. Exam: 16:54 Constitutional: This is a well developed, well nourished patient who is awake, alert, jmm and in no acute distress. Head/Face: atraumatic. Eyes: EOMI, no conjunctival erythema appreciated 16:54 Chest/axilla: Normal chest wall appearance and motion. Cardiovascular: Regular rate and rhythm. No edema appreciated Respiratory: Normal respirations, no respiratory distress appreciated Abdomen/GI: Non distended, soft Back: Normal ROM 16:54 Skin: General appearance color normal MS/ Extremity: Moves all extremities, no obvious deformities appreciated, no edema noted to the lower extremities Neuro: Awake and alert, normal gait Psych: Behavior is normal, Mood is normal, Patient is cooperative and pleasant 16:54 ENT: TM's: erythema, that is moderate, bilaterally. 16:54 ENT: Posterior pharynx: Uvula: midline, erythema, that is moderate, peritonsillar mass, is not appreciated, pooling of secretions, is not appreciated. Vital Signs: 14:06 BP 127 / 79; Pulse 87; Resp 20; Temp 98.0(O); Pulse Ox 99% on R/A; Weight 129.27 kg kg (M); Height 5 ft. 1 in. (154.94 cm) (R); Pain 0/10; 14:06 Body Mass Index 53.85 (129.27 kg, 154.94 cm) kg MDM: 16:08 Patient medically screened. [facility] 16:56 Data reviewed: vital signs, nurses notes. Counseling: I had a detailed discussion with karthikeyan the patient and/or guardian regarding: the historical points, exam findings, and any diagnostic results supporting the discharge/admit diagnosis, lab results, the need for outpatient follow up, to return to the emergency department if symptoms worsen or persist or if there are any questions or concerns that arise at home. ED course: Patient is alert nontoxic in appearance in the ED vital signs are within normal limits. Patient will be treated with oral antibiotics for otitis media and acute pharyngitis. Patient is otherwise given strict return precautions. Patient understood and agrees plan of care.. 05/22 14:41 Order name: COVID-19 : Document "Date of Symptom Onset" if Symptomatic. 05/22 14:41 Order name: Strep; Complete Time: 16:27 bd 05/22 15:39 Order name: Throat Culture EDNC 05/22 16:15 Order name: COVID-19/FLU A+B/RSV EDNC 05/22 16:37 Order name: COVID-19/FLU A+B EDNC Administered Medications: 16:15 Drug: Xopenex (levalbuterol) 1.25 mg Route: Inhalation; ss Disposition: 17:38 Co-signature as Attending Physician, Dillon Levine MD. rn Disposition Summary: 05/22/21 16:57 Discharge Ordered Location: Home [facility] Condition: Stable [facility] Diagnosis - Acute serous otitis media, bilateral jmm - Acute pharyngitis, unspecified jmm - Acute upper respiratory infection, unspecified jmm Followup: [facility] - With: Private Physician - When: 2 - 3 days - Reason: Recheck today's complaints, Continuance of care, Re-evaluation by your physician Discharge Instructions: - Discharge Summary Sheet jmm - Upper Respiratory Infection, Adult jm Forms: - Medication Reconciliation Form [facility] - Thank You Letter jm - Antibiotic Education [facility] - Prescription Opioid Use [facility] Prescriptions: - albuterol sulfate 90 mcg/actuation Inhalation HFA aerosol inhaler - inhale 2 puff by INHALATION route every 4 hours; 1 Pump; Refills: 0, Product jm Selection Permitted - Augmentin 875-125 mg Oral Tablet - take 1 tablet by ORAL route every 12 hours for 10 days; 20 tablet; Refills: 0, jm Product Selection Permitted Signatures: Dispatcher [employer] EDMS Lupillo Martínez PA PA [facility] Dillon Levine MD MD rn Smirch, Shelby, RN RN ss Lisa Bo RN RN kg Corrections: (The following items were deleted from the chart) 14:58 14:42 CORONAVIRUS ordered. EDMS EDMS 14:59 14:42 Influenza Screen (A \\T\\ B)+BA.LAB.BRZ ordered. EDMS EDMS 14:59 14:42 Respiratory Syncytial Virus Ag+BA.LAB.BRZ ordered. EDMS EDMS
[2021-05-24] VITALS: BP 127/79; TEMP 98; O2SAT 99
== END 2021-05-22 17:14 | disposition home or self-care (01) ==
LOC: ER 13:30
DX: H65.03 Acute serous otitis media, bilateral (principal); J02.9 Acute pharyngitis, unspecified; J06.9 Acute upper respiratory infection, unspecified; Z20.822 Contact with and (suspected) exposure to COVID-19; I11.0 Hypertensive heart disease with heart failure; I50.9 Heart failure, unspecified; I42.9 Cardiomyopathy, unspecified; F41.9 Anxiety disorder, unspecified; F90.9 Attention-deficit hyperactivity disorder, unspecified type
CPT/HCPCS: 87070; 87081; 0241U

== ENCOUNTER 2022-08-25 08:13 | Emergency (ER) | payer OTHER ==
--- OUTSIDE RECORDS SUMMARY | 2022-08-25 08:27 | XMS REPORT | Continuity of Care Document ---
:1985 Author Organization [facility] t Address [address] [place] [address] Care Team Providers Name Role Phone Marleny Floyd Primary Care Physician TOREY WHYTE Attending Clinician Unavailable Bello Arango Attending Clinician NANNETTE JUAN Attending Clinician Unavailable Drake LATIF, Nannette Attending Clinician TROEY CESAR Attending Clinician Unavailable Torey Cesar PA-C Attending Clinician EbCj Ernst Attending Clinician REGLA BAEZ Attending Clinician Unavailable Regla Solano Attending Clinician BELLO KURTZ Attending Clinician Unavailable LOTTIE GARVIN Attending Clinician Unavailable Lottie Garvin MD Attending Clinician Doctor Unassigned, [place] Attending Clinician Unavailable Harjit Sneed DO Attending Clinician Torey Whyte MD Attending Clinician Bishop GARVEY, Ashley Attending Clinician Unavailable Mirza Angeles MD Attending Clinician Only, Adc Test Attending Clinician Unavailable RUEL IQBAL Attending Clinician Unavailable Lab, Ang-Rmchp Attending Clinician Unavailable Casie Whipple Attending Clinician CASIE ORTEGA Attending Clinician Unavailable KAMI BERNARD Attending Clinician Unavailable Kami Bernard MD Attending Clinician JOHN RIVERA Attending Clinician Unavailable John Arenas Attending Clinician Pob, Adc Lab Main Attending Clinician Unavailable Haja Abraham DO Attending Clinician TOREY WHYTE Admitting Clinician Unavailable LOTTIE GARVIN Admitting Clinician Unavailable Torey Whyte MD Admitting Clinician KAMI BERNARD Admitting Clinician Unavailable Payers Payer Name Policy Type Policy Number Effective Date Expiration Date Gladis hermosillo [facility] [id number] 2012 00:00:00 PLUS Problems Condition Condition Condition Status Onset Resolution Last Treating Co mments Source Name Details Category Date Date Treatment Clinician Date Encounter Encounter Disease Active Uni vers for for 01-27 [place] to[place] to[place] 00 Medical management management Br anch , , unspecifie unspecifie d type d type Encounter Encounter Disease Active Uni vers for for 4-03 [place] 00 Medical management management Br anch , , unspecifie unspecifie d type d type History of History of Disease Active U nivers bilateral bilateral -03 ity of tubal tubal 00:00: [place] ligation ligation 00 Medica l Branch Morbid Morbid Disease Active Univers obesity obesity -03 ity of 00:00: [place] 00 Medical Branch BMI BMI Disease Active Univers 50.0-59.9, 50.0-59.9, 4-03 it y of adult adult 00:00: 00 Medical Branch Research Research Disease Active Overview: Un jac study study 2-16 Formattin ity of patient patient 00:00: g of this [place] 00 note is Medical different Branch from the original. [facility] # [id number] y questions please contact:Rachel Manley MD [phone] 223Vielma Hightower MD [phone] Jaden Frias MD [phone] [phone] facts Patient randomize d after delivery if they met inclusion criteria a nd accepted Medicati on comes from [facility]S not pharmacy, [facility]S Phone Number Ext. [phone] or cell Patient can start meds as soon as they tolerate PO One tab per day of either placebo or HCTZ Medicati on stays with patient Medicati on will appear on DEC, Nurses need to randy as given (No barcode) Medicati on needs to counted prior to discharge by research [employer] team member All follow ups need to be on POD or PP day # 14 or more Patient needs to be reminded to bring their left over medicatio n and bottle back to their visit IDS needs to be notified at time of discharge Please contact Dr. Manley with any Questions Pain Pain Disease Active Univers pelvic pelvic 2-18 ity of 00:00: [place] 00 Medical [place] Depression Depression Disease Active U nivers 05-18 ity of 00:00: [facility] Asthma Asthma Disease Active Overview: Univer s 05-18 Formattin ity of 00:00: g of this note Medical might be Branch different from the original. ICD10 Diagnosis Term Deck Supervisor Utility Allergies, Adverse Reactions, Alerts Allergy Allergy Status Severity Reaction(s) Onset Inactive Treating Comm ents Source Name Type Date Date Clinician Morphine Drug Active Itching 2019- Univers Allergy 0-09 ity of 00:00: [place] 00 Medical Branch MORPHINE DRUG Active Low ITCHING 2019- Univers INGREDI 0-09 ity of 00:00: 00 [place] Latex Propensi Active Rash 2017- Univers ty to 2-15 ity of adverse 00:00: [place] reaction 00 [facility] Branch LATEX DRUG Active Rash 2017-0 Univers INGREDI 2-15 ity of 00:00: [place] 00 Medical [place] Social History Social Habit Start Date Stop Date Quantity Comments Source Exposure to 2022-07-07 2022-07-17 Not sure [facility] SARS-CoV-2 00:00:00 09:06:00 [facility] (event) Branch Alcohol intake 2022-07-17 2022-07-17 0 /d University of 00:00:00 00:00:00 [facility] Tobacco use and 2022-06-12 2022-06-12 Smokeless tobacco Un iversity of exposure 00:00:00 00:00:00 non-user [facility] Alcohol Comment 2014-05-18 2014-05-18 rarely Universit y of 00:00:00 00:00:00 [facility] Sex [birth year] Universit y of 00:00:00 00:00:00 [facility] Smoking Status Start Date Stop Date Source Never smoked tobacco [facility] Medications Ordered Filled Start Stop Current Ordering Indication Dosage Frequency Signature Comments Components Source Medication Medication Date Date Medication? Clinician (SIG) Name Name sulfamethox 2021- Yes [id number] 1{tbl} Take 1 Univers azole-trime 9-24 10-02 tablet by it y of thoprim 00:00: 04:59 mouth in [place] (BACTRIM 00 :00 the Medical DS) 800-160 morning Branc h mg per and 1 tablet tablet in the evening. Do all this for 7 days. ondansetron Yes [id number] 4mg Take 1 Univers 4 mg 9-21 tablet by ity of disintegrat 00:00: mouth [place] ing tablet 00 every 8 Medica l (eight) Branch hours as needed for Nausea and Vomiting (N/V). cetirizine Yes [id number] 10mg Take 1 U nivers (ZYRTEC) 10 9-21 tablet by ity of mg tablet 00:00: [place] 00 the Medical morning. Branch ondansetron Yes [id number] 4mg Take 1 Univers 4 mg 9-21 tablet by ity of disintegrat 00:00: mouth [place] ing tablet 00 every 8 Medica l (eight) Branch hours as needed for Nausea and Vomiting (N/V). cetirizine Yes [id number] 10mg Take 1 U nivers (ZYRTEC) 10 9-21 tablet by ity of mg tablet 00:00: [place] 00 the Medical morning. Branch polymyxin B 2021- Yes [id number] 1[drp] Place 1 Univers sulf-trimet -07-25 Drop in ity of hoprim 00:00: 04:59 both eyes [place] 10,000 00 :00 4 (four) Medical unit- 1 times Branch mg/mL daily for ophthalmic 7 days. drops polymyxin B 2021- Yes [id number] 1[drp] Place 1 Univers sulf-trimet 07-17 Drop in ity of hoprim 00:00: 04:59 both eyes [place] 10,000 00 :00 4 (four) Medical unit- 1 times Branch mg/mL daily for ophthalmic 7 days. drops fluconazole 2021- Yes [id number] 150mg Take 1 Univers (DIFLUCAN) 07-17 tablet by ity of 150 mg 00:00: 04:59 mouth [place] tablet 00 :00 now for 1 Medical dose. Branch amoxicillin 2021- Yes [id number] 1{tbl} Take 1 Univers -clavulanat 8-17 08-25 tablet by it y of e 00:00: 04:59 mouth in [place] (AUGMENTIN) 00 :00 the Medical 875-125 mg morning Branch per tablet and 1 tablet in the evening. Do all this for 7 days. benzonatate 2021- No [id number] 200mg Take 1 Univers 200 mg 6-19 06-30 capsule by ity of capsule 00:00: 04:59 mouth 3 [place] 00 :00 (three) Medical times Branch daily as needed for Cough for up to 10 days. amoxicillin 2021- No [id number] 1{tbl} Take 1 Univers -clavulanat 6-19 06-27 tablet by it y of e 00:00: 04:59 mouth 2 [place] (AUGMENTIN) 00 :00 (two) Medical 875-125 mg times Branch per tablet daily for 7 days. amoxicillin 2021- No [id number] 1{tbl} Take 1 Univers -clavulanat 6-08 06-16 tablet by it y of e 875-125 00:00: 04:59 mouth 2 [place] mg per 00 :00 (two) Medical tablet times Branch daily for 7 days. ibuprofen Yes [id number] 600mg Take 1 Univers 600 mg 5-24 100 tablet by ity of tablet 00:00: mouth [place] 00 every 6 Medical (six) Branch hours as needed for Pain (scale 4-6). ibuprofen Yes [id number] 600mg Take 1 Univers 600 mg 5-24 100 tablet by ity of tablet 00:00: mouth [place] 00 every 6 Medical (six) Branch hours as needed for Pain (scale 4-6). ibuprofen 2021-0 Yes [id number] 600mg Take 1 Univers 600 mg 5-24 100 tablet by ity of tablet 00:00: mouth [place] 00 every 6 Medical (six) Branch hours as needed for Pain (scale 4-6). ibuprofen 2021-0 Yes [id number] 600mg Take 1 Univers 600 mg 5-24 100 tablet by ity of tablet 00:00: mouth [place] 00 every 6 Medical (six) Branch hours as needed for Pain (scale 4-6). ibuprofen 2021-0 2022- No [id number] 600mg Take 1 Univers 600 mg 5-24 09-21 100 tablet by ity of tablet 00:00: 00:00 mouth [place] 00 :00 every 6 Medical (six) Branch hours as needed for Pain (scale 4-6). guaiFENesin 2020-10 Yes [id number] 400mg Take 1 Univers 400 mg 2-06 tablet by ity of tablet 00:00: mouth [place] 00 every 4 Medical (four) Branch hours as needed for Cough. ondansetron 2020-10 Yes [id number] 4mg Take 1 Univers 4 mg 2-06 tablet by ity of disintegrat 00:00: mouth [place] ing tablet 00 every 8 Medica l (eight) Branch hours as needed for Nausea and Vomiting (N/V). albuterol 2020-10 Yes [id number] 2{puff} Inhale 2 Univers 90 2-06 Puffs ity of mcg/actuati 00:00: every 6 [place] on inhaler 00 (six) Medical hours as Branch needed for Wheezing or Shortness of Breath. budesonide- 2020-10 Yes [id number] 2{puff} Inhale 2 Univers formoteroL 2-06 Puffs 2 ity of (SYMBICORT) 00:00: (two) [place] 160-4.5 00 times Medical mcg/actuati daily. Branch on inhaler guaiFENesin 2020-10 Yes [id number] 400mg Take 1 Univers 400 mg 2-06 tablet by ity of tablet 00:00: mouth [place] 00 every 4 Medical (four) Branch hours as needed for Cough. ondansetron 2020-10 Yes [id number] 4mg Take 1 Univers 4 mg 2-06 tablet by ity of disintegrat 00:00: mouth [place] ing tablet 00 every 8 Medica l (eight) Branch hours as needed for Nausea and Vomiting (N/V). albuterol 2020-10 Yes [id number] 2{puff} Inhale 2 Univers 90 2-06 Puffs ity of mcg/actuati 00:00: every 6 [place] on inhaler 00 (six) Medical hours as Branch needed for Wheezing or Shortness of Breath. budesonide- 2020-10 Yes [id number] 2{puff} Inhale 2 Univers formoteroL 2-06 Puffs 2 ity of (SYMBICORT) 00:00: (two) [place] 160-4.5 00 times Medical mcg/actuati daily. Branch on inhaler ondansetron 2020-10 Yes [id number] 4mg Take 1 Univers 4 mg 2-06 tablet by ity of disintegrat 00:00: mouth [place] ing tablet 00 every 8 Medica l (eight) Branch hours as needed for Nausea and Vomiting (N/V). albuterol 2020-10 Yes [id number] 2{puff} Inhale 2 Univers 90 2-06 Puffs ity of mcg/actuati 00:00: every 6 [place] on inhaler 00 (six) Medical hours as Branch needed for Wheezing or Shortness of Breath. budesonide- 2020-10 Yes [id number] 2{puff} Inhale 2 Univers formoteroL 2-06 Puffs 2 ity of (SYMBICORT) 00:00: (two) [place] 160-4.5 00 times Medical mcg/actuati daily. Branch on inhaler ondansetron 2020-10 Yes [id number] 4mg Take 1 Univers 4 mg 2-06 tablet by ity of disintegrat 00:00: mouth [place] ing tablet 00 every 8 Medica l (eight) Branch hours as needed for Nausea and Vomiting (N/V). albuterol 2020-10 Yes [id number] 2{puff} Inhale 2 Univers 90 2-06 Puffs ity of mcg/actuati 00:00: every 6 [place] on inhaler 00 (six) Medical hours as Branch needed for Wheezing or Shortness of Breath. budesonide- 2020-10 Yes [id number] 2{puff} Inhale 2 Univers formoteroL 2-06 Puffs 2 ity of (SYMBICORT) 00:00: (two) [place] 160-4.5 00 times Medical mcg/actuati daily. Branch on inhaler benzonatate 2020-10 Yes [id number] 200mg Take 2 Univers 100 mg 2-06 capsules ity of capsule 00:00: by mouth 2 [place] 00 (two) Medical times Branch daily as needed for Cough. guaiFENesin 2020-10 Yes [id number] 400mg Take 1 Univers 400 mg 2-06 tablet by ity of tablet 00:00: mouth [place] 00 every 4 Medical (four) Branch hours as needed for Cough. ondansetron 2020-10 Yes [id number] 4mg Take 1 Univers 4 mg 2-06 tablet by ity of disintegrat 00:00: mouth [place] ing tablet 00 every 8 Medica l (eight) Branch hours as needed for Nausea and Vomiting (N/V). albuterol 2020-10 Yes [id number] 2{puff} Inhale 2 Univers 90 2-06 Puffs ity of mcg/actuati 00:00: every 6 [place] on inhaler 00 (six) Medical hours as Branch needed for Wheezing or Shortness of Breath. budesonide- 2020-10 Yes [id number] 2{puff} Inhale 2 Univers formoteroL 2-06 Puffs 2 ity of (SYMBICORT) 00:00: (two) [place] 160-4.5 00 times Medical mcg/actuati daily. Branch on inhaler benzonatate 2020-10 Yes [id number] 200mg Take 2 Univers 100 mg 2-06 capsules ity of capsule 00:00: by mouth 2 [place] 00 (two) Medical times Branch daily as needed for Cough. guaiFENesin 2020-10 Yes [id number] 400mg Take 1 Univers 400 mg 2-06 tablet by ity of tablet 00:00: mouth [place] 00 every 4 Medical (four) Branch hours as needed for Cough. ondansetron 2020-10 Yes [id number] 4mg Take 1 Univers 4 mg 2-06 tablet by ity of disintegrat 00:00: mouth [place] ing tablet 00 every 8 Medica l (eight) Branch hours as needed for Nausea and Vomiting (N/V). albuterol 2020-10 Yes [id number] 2{puff} Inhale 2 Univers 90 2-06 Puffs ity of mcg/actuati 00:00: every 6 [place] inhaler 00 (six) Medical hours as Branch needed for Wheezing or Shortness of Breath. budesonide- 2020-10 Yes [id number] 2{puff} Inhale 2 Univers formoteroL 2-06 Puffs 2 ity of (SYMBICORT) 00:00: (two) [place] 160-4.5 00 times Medical mcg/actuati daily. Branch on inhaler benzonatate 2020-10 Yes [id number] 200mg Take 2 Univers 100 mg 2-06 capsules ity of capsule 00:00: by mouth 2 [place] 00 (two) Medical times Branch daily as needed for Cough. guaiFENesin 2020-10 Yes [id number] 400mg Take 1 Univers 400 mg 2-06 tablet by ity of tablet 00:00: mouth [place] 00 every 4 Medical (four) Branch hours as needed for Cough. ondansetron 2020-10 Yes [id number] 4mg Take 1 Univers 4 mg 2-06 tablet by ity of disintegrat 00:00: mouth [place] ing tablet 00 every 8 Medica l (eight) Branch hours as needed for Nausea and Vomiting (N/V). albuterol 2020-10 Yes [id number] 2{puff} Inhale 2 Univers 90 2-06 Puffs ity of mcg/actuati 00:00: every 6 [place] inhaler 00 (six) Medical hours as Branch needed for Wheezing or Shortness of Breath. budesonide- 2020-10 Yes [id number] 2{puff} Inhale 2 Univers formoteroL 2-06 Puffs 2 ity of (SYMBICORT) 00:00: (two) [place] 160-4.5 00 times Medical mcg/actuati daily. Branch on inhaler benzonatate 2020-10 Yes [id number] 200mg Take 2 Univers 100 mg 2-06 capsules ity of capsule 00:00: by mouth 2 [place] 00 (two) Medical times Branch daily as needed for Cough. guaiFENesin 2020-10 Yes [id number] 400mg Take 1 Univers 400 mg 2-06 tablet by ity of tablet 00:00: mouth [place] 00 every 4 Medical (four) Branch hours as needed for Cough. ondansetron 2020-10 Yes [id number] 4mg Take 1 Univers 4 mg 2-06 tablet by ity of disintegrat 00:00: mouth [place] ing tablet 00 every 8 Medica l (eight) Branch hours as needed for Nausea and Vomiting (N/V). albuterol 2020-10 Yes [id number] 2{puff} Inhale 2 Univers 90 2-06 Puffs ity of mcg/actuati 00:00: every 6 [place] inhaler 00 (six) Medical hours as Branch needed for Wheezing or Shortness of Breath. budesonide- 2020-10 Yes [id number] 2{puff} Inhale 2 Univers formoteroL 2-06 Puffs 2 ity of (SYMBICORT) 00:00: (two) [place] 160-4.5 00 times Medical mcg/actuati daily. Branch on inhaler guaiFENesin 2020-10- No [id number] 400mg Take 1 Univers 400 mg 2-04 04-21 tablet by ity of tablet 00:00: 00:00 mouth [place] 00 :00 every 4 Medical (four) Branch hours as needed for Cough. benzonatate 2020-10- No [id number] 200mg Take 2 Univers 100 mg 2- 06-19 capsules ity of capsule 00:00: 00:00 by mouth 2 [place] 00 :00 (two) Medical times Branch daily as needed for Cough. amoxicillin 2020-10- No [id number] 1{tbl} Take 1 Univers -clavulanat 2- 12-14 tablet by it y of e 00:00: 05:59 mouth 2 [place] (AUGMENTIN) 00 :00 (two) Medical 875-125 mg times Branch per tablet daily for 7 days. proMETHazin 2019-10 2020- No 25mg 25 mg, IV Univers e 0- 10-09 Piggyback, ity of (PHENERGAN) 21:26: 21:35 ONCE, 1 [place] 25 mg in 00 :00 dose, Fri Medica l NaCl 0.9% 08/04/20 at Bran ch (NS) 50 mL 1630, IV Routine, piggyback PACU FENTanyl PF 2019-10 Yes 25ug 25 mcg, Uni vers (SUBLIMAZE 0-09 Slow IV ity of (PF)) 20:54: Push, [place] injection 14 Q5MIN PRN, Medi paul 25 mcg 4 doses, Branch Starting Fri08/04/20 at 1554, Until Discontinu ed, Routine, Pain (scale 7-10), PACU ketorolac 2019-10- No 30mg 30 mg, Unive rs (TORADOL) 008-04 Slow IV ity of injection 20:54: 21:44 Push, PRN, [place] 30 mg 14 :00 1 dose, Medical Starting Branch 08/04/20 at 1554, Until Discontinu ed, Routine, Pain (scale 4-6), PACU
Fa culty member approving Restricted medication : PACU RECOVERY ondansetron 2019-10 2020- No 4mg 4 mg, Slow Univers (ZOFRAN 08-04 IV Push, ity of (PF)) 20:54: 21:01 PRN, 1 [place] injection 4 14 :00 dose, Medical mg Starting Branch Fri08/04/20 at 1554, Until Fri08/04/20 at 1601, Routine, Nausea and Vomiting (N/V), PACU ondansetron 2019-10 2020- No ONCE INTRA Univers (ZOFRAN 08-04 PROCEDURE, ity o f (PF)) 20:14: 20:54 Starting [place] injection 00 :20 Fri Medical 08/04/20 at Branch 1514, Until Fri08/04/20 at 1554, Routine, Intra-op bupivacaine 2019-10 Yes PRN, Univer s -epinephrin Starting ity of e-pf 20:12: Fri [place] (SENSORCAIN 00 08/04/20 at Nc dical E 1512, Branch W/EPINEPHRI Until NE) 0.25 Discontinu %-1:200,000 ed, injection Routine, Intra-op PHENYLephri 2019-10 2020- No ONCE INTRA Univers ne 1000 08-04 PROCEDURE, ity o f mcg/10 mL 20:05: 20:54 Starting [place] in 0.9% 00 :20 Fri Medical NaCl 08/04/20 at Branch syringe 1505, Until 08/04/20 at 1554, Routine, Intra-op ePHEDrine 2019-10 2020- No ONCE INTRA U nivers 25 mg/5 mL 008-04 PROCEDURE, it y of (5 mg/mL) 20:00: 20:54 Starting [place] as syringe 00 :20 Fri Medical 08/04/20 at Branch 1500, Until Fri08/04/20 at 1554, Routine, Intra-op HYDROmorphO 2019-10 2020- No ONCE INTRA Univers ne 08-04 PROCEDURE, ity of (DILAUDID) 19:51: 20:54 [place] injection 00 :20 Fri Medical 08/04/20 at Branch 1451, Until 08/04/20 at 1554, Routine, Intra-op ceFAZolin 2019-10 2020- No ONCE INTRA U nivers (ANCEF) 08-04 PROCEDURE, ity o f injection 19:44: 20:54 Starting [place] as 00 :20 Fri Medical 08/04/20 at Branch 1444, Until 08/04/20 at 1554, ELAINE, Intra-op acetaminoph 2019-10 2020- No Administer Univers en ADULT 08-04 over 15 ity of (OFIRMEV) 19:40: 20:54 Minutes, [place] injection 00 :20 ONCE INTRA Medi paul PROCEDURE, Branch Starting 08/04/20 at 1440, Until 08/04/20 at 1554, Routine, Intra-op propofoL IV 2019-10- No ONCE INTRA Univers infusion 08-04 PROCEDURE, ity of 19:38: 20:54 Starting [place] 00 :20 Fri Medical 08/04/20 at Branch 1438, Until 08/04/20 at 1554, Routine, Intra-op lidocaine 2019-10 2020- No ONCE INTRA U nivers 1% 08-04 PROCEDURE, ity of (XYLOCAINE) 19:37: 20:54 Starting [place] 100 mg/10 00 :20 Fri Medical mL (1 %) 08/04/20 at [facility] h injection 1437, Until 08/04/20 at 1554, Routine, Intra-op FENTanyl PF 2019-10 2020- No ONCE INTRA Univers (SUBLIMAZE 08-04 PROCEDURE, it y of (PF)) 19:37: 20:54 Starting [place] injection 00 :20 Fri Medical 08/04/20 at Branch 1437, Until 08/04/20 at 1554, Routine, Intra-op midazolam 2019-10- No ONCE INTRA U nivers (VERSED) 008-04 PROCEDURE, ity of injection 19:32: 20:54 Starting [place] 00 :20 Fri Medical 08/04/20 at Branch 1432, Until Fri08/04/20 at 1554, Routine, Intra-op lactated 2019-10- No CONTINUOUS Un jac ringers IV 0-07 06- PRN, ity of infusion 18:28: 20:54 [place] 00 :20 Fri Medical 08/04/20 at Branch 1328, Until Fri08/04/20 at 1554, Routine, Intra-op lactated 2019-10- No 1000mL at 42 Unive rs ringers IV 0-07 06- mL/hr, ity of infusion 16:15: 18:29 1,000 mL, [place] 1,000 mL 00 :00 IV Medical Infusion, Branch ONCE, 1 dose, Fri08/04/20 at 1115, Routine, DSU Pre-op gabapentin 2019-10- No [id number] 300mg Take 1 Univers 300 mg 010-04 capsule by ity of capsule 00:00: 05:59 mouth 3 [place] 00 :00 (three) Medical times Branch daily for 60 days. gabapentin 2019-10- No [id number] 300mg Take 1 Univers 300 mg 0- capsule by ity of capsule 00:00: 05:59 mouth 3 [place] 00 :00 (three) Medical times Branch daily for 60 days. gabapentin 2019-10- No [id number] 300mg Take 1 Univers 300 mg 0- capsule by ity of capsule 00:00: 05:59 mouth 3 [place] 00 :00 (three) Medical times Branch daily for 60 days. HYDROcodone 2019-10- No [id number] 1{tbl} Take 1 U nivers -acetaminop 0- tablet by it y of hen 5-325 00:00: 04:59 mouth [place] mg tablet 00 :00 every 6 Medical (six) Branch hours as needed for Pain (scale 4-6) for up to 7 days. Indication s: acute pain ondansetron 2019-10- No [id number] 4mg Take 1 Univers 4 mg tablet 008-12 tablet by it y of 00:00: 04:59 mouth [place] 00 :00 every 8 Medical (eight) Branch hours as needed for Nausea and Vomiting (N/V) for up to 7 days. HYDROcodone 2019-10 2020- No [id number] 1{tbl} Take 1 U nivers -acetaminop 0- tablet by it y of hen 5-325 00:00: 04:59 mouth [place] mg tablet 00 :00 every 6 Medical (six) Branch hours as needed for Pain (scale 4-6) for up to 7 days. Indication s: acute pain ondansetron 2019-10 2020- No [id number] 4mg Take 1 Univers 4 mg tablet 017 tablet by it y of 00:00: 04:59 mouth [place] 00 :00 every 8 Medical (eight) Branch hours as needed for Nausea and Vomiting (N/V) for up to 7 days. nystatin-tr 2020-0 Yes [id number] Apply to Univers iamcinolone 8-10 area(s) 3 ity of cream 00:00: (three) [place] 00 times Medical daily. Branch nystatin-tr 2020-0 Yes [id number] Apply to Univers iamcinolone 8-10 area(s) 3 ity of cream 00:00: (three) [place] 00 times Medical daily. Branch nystatin-tr 2020-0 Yes [id number] Apply to Univers iamcinolone 8-10 area(s) 3 ity of cream 00:00: (three) [place] 00 times Medical daily. Branch nystatin-tr 2020-0 Yes [id number] Apply to Univers iamcinolone 8-10 area(s) 3 ity of cream 00:00: (three) [place] 00 times Medical daily. Branch nystatin-tr 2020-0 Yes [id number] Apply to Univers iamcinolone 8-10 area(s) 3 ity of cream 00:00: (three) [place] 00 times Medical daily. Branch nystatin-tr 2020-0 Yes [id number] Apply to Univers iamcinolone 8-10 area(s) 3 ity of cream 00:00: (three) [place] 00 times Medical daily. Branch nystatin-tr 2020-0 Yes [id number] Apply to Univers iamcinolone 8-10 area(s) 3 ity of cream 00:00: (three) [place] 00 times Medical daily. Branch nystatin-tr 2020-0 Yes [id number] Apply to Univers iamcinolone 8-10 area(s) 3 ity of cream 00:00: (three) [place] 00 times Medical daily. Branch nystatin-tr 2020-0 Yes [id number] Apply to Univers iamcinolone 8-10 area(s) 3 ity of cream 00:00: (three) [place] 00 times Medical daily. Branch nystatin-tr 2020-0 Yes [id number] Apply to Univers iamcinolone 8-10 area(s) 3 ity of cream 00:00: (three) [place] 00 times Medical daily. Branch nystatin-tr 2020-0 Yes [id number] Apply to Univers iamcinolone 8-10 area(s) 3 ity of cream 00:00: (three) [place] 00 times Medical daily. Branch nystatin-tr 2020-0 Yes [id number] Apply to Univers iamcinolone 8-10 area(s) 3 ity of cream 00:00: (three) [place] 00 times Medical daily. Branch nystatin-tr 2020-0 Yes [id number] Apply to Univers iamcinolone 8-10 area(s) 3 ity of cream 00:00: (three) [place] 00 times Medical daily. Branch nystatin-tr 2020-0 Yes [id number] Apply to Univers iamcinolone 8-10 area(s) 3 ity of cream 00:00: (three) [place] 00 times Medical daily. Branch nystatin-tr 2020-0 Yes [id number] Apply to Univers iamcinolone 8-10 area(s) 3 ity of cream 00:00: (three) [place] 00 times Medical daily. Branch nystatin-tr 2020-0 Yes [id number] Apply to Univers iamcinolone 8-10 area(s) 3 ity of cream 00:00: (three) [place] 00 times Medical daily. Branch nystatin-tr 2020-0 Yes [id number] Apply to Univers iamcinolone 8-10 area(s) 3 ity of cream 00:00: (three) [place] 00 times Medical daily. Branch nystatin-tr 2020-0 Yes [id number] Apply to Univers iamcinolone 8-10 area(s) 3 ity of cream 00:00: (three) [place] 00 times Medical daily. Branch nystatin-tr 2020-0 Yes [id number] Apply to Univers iamcinolone 8-10 area(s) 3 ity of cream 00:00: (three) [place] 00 times Medical daily. Branch nystatin-tr 2020-0 Yes [id number] Apply to Univers iamcinolone 8-10 area(s) 3 ity of cream 00:00: (three) [place] 00 times Medical daily. Branch nystatin-tr 2020-0 Yes [id number] [facility] to [facility] iamcinolone 8-10 area(s) 3 ity of cream 00:00: (three) [place] 00 times Medical daily. Branch nystatin-tr 2020-0 Yes [id number] [facility] to [facility] iamcinolone 8-10 area(s) 3 ity of cream 00:00: (three) [place] 00 times Medical daily. Branch nystatin-tr 2020-0 Yes [id number] Apply to [facility] iamcinolone 8-10 area(s) 3 ity of cream 00:00: (three) [place] 00 times Medical daily. Branch nystatin-tr 2020-0 Yes [id number] Apply to [facility] iamcinolone 8-10 area(s) 3 ity of cream 00:00: (three) [place] 00 times Medical daily. Branch nystatin-tr 2020-0 Yes [id number] Apply to [facility] iamcinolone 8-10 area(s) 3 ity of cream 00:00: (three) [place] 00 times Medical daily. Branch nystatin-tr 2020-0 Yes [id number] Apply to [facility] iamcinolone 8-10 area(s) 3 ity of cream 00:00: (three) [place] 00 times Medical daily. Branch nystatin-tr 2020-0 Yes [id number] Apply to [facility] iamcinolone 8-10 area(s) 3 ity of cream 00:00: (three) [place] 00 times Medical daily. Branch nystatin-tr 2020-0 Yes [id number] Apply to [facility] iamcinolone 8-10 area(s) 3 ity of cream 00:00: (three) [place] 00 times Medical daily. Branch nystatin-tr 2020-0 Yes [id number] Apply to [facility] iamcinolone 8-10 area(s) 3 ity of cream 00:00: (three) [place] 00 times Medical daily. Branch nystatin-tr 2020-0 Yes [id number] Apply to [facility] iamcinolone 8-10 area(s) 3 ity of cream 00:00: (three) [place] 00 times Medical daily. Branch nystatin-tr 2020-0 2- No [id number] Apply to [facility] 8 09-21 area(s) 3 it y of cream 00:00: 00:00 (three) [place] 00 :00 times Medical daily. Branch indomethaci 2020-0 Yes TK 1 C PO U nivers n 50 mg 5-06 Q 6 H PRN ity of capsule 00:00: [place] 00 Medical [facility] indomethaci 2020-0 Yes TK 1 C PO U nivers n 50 mg 5-06 Q 6 H PRN ity of capsule 00:00: [place] 00 Medical Branch indomethaci 2020-0 Yes TK 1 C PO U nivers n 50 mg 5-06 Q 6 H PRN ity of capsule 00:00: [place] 00 [facility] indomethaci 2020-0 Yes TK 1 C PO U nivers n 50 mg 5-06 Q 6 H PRN ity of capsule 00:00: [place] 00 [facility] indomethaci 2020-0 Yes TK 1 C PO U nivers n 50 mg 5-06 Q 6 H PRN ity of capsule 00:00: [place] 00 [facility] indomethaci 2020-0 Yes TK 1 C PO U nivers n 50 mg 5-06 Q 6 H PRN ity of capsule 00:00: [place] 00 [facility] indomethaci 2020-0 Yes TK 1 C PO U nivers n 50 mg 5-06 Q 6 H PRN ity of capsule 00:00: [place] 00 [facility] indomethaci 2020-0 2020- No TK 1 C PO [facility] n 50 mg 5-06 08-10 Q 6 H PRN ity of capsule 00:00: 00:00 [place] 00 :00 [facility] indomethaci 2020-0 2020- No TK 1 C PO [facility] n 50 mg 5-06 08-10 Q 6 H PRN ity of capsule 00:00: 00:00 [place] 00 :00 [facility] indomethaci 2020-0 2020- No TK 1 C PO [facility] n 50 mg 5-06 08-10 Q 6 H PRN ity of capsule 00:00: 00:00 [place] 00 :00 Medical Branch PROAIR HFA 2020-0 Yes [facility] 90 4-09 ity of mcg/actuati 00:00: [place] on inhaler 00 Medical Branch PROAIR HFA 2020-0 Yes [facility] 90 4-09 ity of mcg/actuati 00:00: [place] on inhaler 00 Medical [facility] PROAIR HFA 2020-0 Yes [facility] 90 4-09 ity of mcg/actuati 00:00: [place] on inhaler 00 Medical [facility] PROAIR HFA 2020-0 Yes [facility] 90 4-09 ity of mcg/actuati 00:00: [place] on inhaler 00 [facility] PROAIR HFA 2020-0 Yes [facility] 90 4-09 ity of mcg/actuati 00:00: [place] on inhaler 00 Medical Branch azithromyci 2020-0 Yes Univer s n 250 mg 4-09 ity of tablet 00:00: [place] 00 [facility] SYMBICORT 2020-0 Yes [facility] 160-4.5 4-09 ity of mcg/actuati 00:00: [place] on inhaler 00 Medical Branch PROAIR HFA 2020-0 Yes [facility] 90 4-09 ity of mcg/actuati 00:00: [place] on inhaler 00 Medical Branch azithromyci 2020-0 Yes Univer s n 250 mg 4-09 ity of tablet 00:00: [place] 00 [facility] SYMBICORT 2020-0 Yes [facility] 160-4.5 4-09 ity of mcg/actuati 00:00: [place] on inhaler 00 Medical Branch PROAIR HFA 2020-0 Yes [facility] 90 4-09 ity of mcg/actuati 00:00: [place] on inhaler 00 Medical Branch azithromyci 2020-0 Yes Univer s n 250 mg 4-09 ity of tablet 00:00: [place] 00 [facility] SYMBICORT 2020-0 Yes [facility] 160-4.5 4-09 ity of mcg/actuati 00:00: [place] on inhaler 00 Medical Branch PROAIR HFA 2020-0 Yes [facility] 90 4-09 ity of mcg/actuati 00:00: [place] on inhaler 00 Medical Branch azithromyci 2020-0 Yes Univer s n 250 mg 4-09 ity of tablet 00:00: [place] 00 [facility] SYMBICORT 2020-0 Yes [facility] 160-4.5 4-09 ity of mcg/actuati 00:00: [place] on inhaler 00 Medical [facility] PROAIR HFA 2020-0 Yes [facility] 90 4-09 ity of mcg/actuati 00:00: [place] on inhaler 00 Medical Branch azithromyci 2020-0 Yes Univer s n 250 mg 4-09 ity of tablet 00:00: [place] 00 [facility] SYMBICORT 2020-0 Yes [facility] 160-4.5 4-09 ity of mcg/actuati 00:00: [place] on inhaler 00 Medical [facility] PROAIR HFA 2020-0 Yes [facility] 90 4-09 ity of mcg/actuati 00:00: [place] on inhaler 00 Medical [facility] azithromyci 2020-0 Yes Univer s n 250 mg 4-09 ity of tablet 00:00: [place] 00 [facility] SYMBICORT 2020-0 Yes [facility] 160-4.5 4-09 ity of mcg/actuati 00:00: [place] on inhaler 00 Medical Branch PROAIR HFA 2020-0 Yes [facility] 90 4-09 ity of mcg/actuati 00:00: [place] on inhaler 00 Medical Branch azithromyci 2020-0 Yes Univer s n 250 mg 4-09 ity of tablet 00:00: [place] 00 [facility] SYMBICORT 2020-0 Yes [facility] 160-4.5 4-09 ity of mcg/actuati 00:00: [place] on inhaler 00 Medical Branch PROAIR HFA 2020-0 Yes [facility] 90 4-09 ity of mcg/actuati 00:00: [place] on inhaler 00 Medical Branch SYMBICORT 2020-0 Yes [facility] 160-4.5 4-09 ity of mcg/actuati 00:00: [place] on inhaler 00 Medical Branch PROAIR HFA 2020-0 Yes [facility] 90 4-09 ity of mcg/actuati 00:00: [place] on inhaler 00 Medical Branch SYMBICORT 2020-0 Yes [facility] 160-4.5 4-09 ity of mcg/actuati 00:00: [place] on inhaler 00 Medical Branch PROAIR HFA 2020-0 Yes [facility] 90 4-09 ity of mcg/actuati 00:00: [place] on inhaler 00 Medical Branch SYMBICORT 2020-0 Yes [facility] 160-4.5 4-09 ity of mcg/actuati 00:00: [place] on inhaler 00 Medical Branch PROAIR HFA 2020-0 Yes [facility] 90 4-09 ity of mcg/actuati 00:00: [place] on inhaler 00 Medical Branch SYMBICORT 2020-0 Yes [facility] 160-4.5 4-09 ity of mcg/actuati 00:00: [place] on inhaler 00 Medical Branch PROAIR HFA 2020-0 Yes [facility] 90 4-09 ity of mcg/actuati 00:00: [place] on inhaler 00 Medical Branch SYMBICORT 2020-0 Yes [facility] 160-4.5 4-09 ity of mcg/actuati 00:00: [place] on inhaler 00 Medical Branch PROAIR HFA 2020-0 Yes [facility] 90 4-09 ity of mcg/actuati 00:00: [place] on inhaler 00 Medical Branch SYMBICORT 2020-0 Yes [facility] 160-4.5 4-09 ity of mcg/actuati 00:00: [place] on inhaler 00 Medical Branch PROAIR HFA 2020-0 Yes [facility] 90 4-09 ity of mcg/actuati 00:00: [place] on inhaler 00 Medical Branch SYMBICORT 2020-0 Yes [facility] 160-4.5 4-09 ity of mcg/actuati 00:00: [place] on inhaler 00 Medical Branch PROAIR HFA 2020-0 Yes [facility] 90 4-09 ity of mcg/actuati 00:00: [place] on inhaler 00 Medical Branch SYMBICORT 2020-0 Yes [facility] 160-4.5 4-09 ity of mcg/actuati 00:00: [place] on inhaler 00 Medical Branch PROAIR HFA 2020-0 Yes [facility] 90 4-09 ity of mcg/actuati 00:00: [place] on inhaler 00 Medical Branch SYMBICORT 2020-0 Yes [facility] 160-4.5 4-09 ity of mcg/actuati 00:00: [place] on inhaler 00 Medical Branch PROAIR HFA 2020-0 Yes [facility] 90 4-09 ity of mcg/actuati 00:00: [place] on inhaler 00 Medical Branch SYMBICORT 2020-0 Yes [facility] 160-4.5 4-09 ity of mcg/actuati 00:00: [place] on inhaler 00 Medical Branch PROAIR HFA 2020-0 Yes [facility] 90 4-09 ity of mcg/actuati 00:00: [place] on inhaler 00 [facility] Branch SYMBICORT 2020-0 Yes [facility] 160-4.5 4-09 ity of mcg/actuati 00:00: [place] on inhaler 00 Medical Branch PROAIR HFA 2020-0 Yes [facility] 90 4-09 ity of mcg/actuati 00:00: [place] on inhaler 00 Medical Branch SYMBICORT 2020-0 Yes [facility] 160-4.5 4-09 ity of mcg/actuati 00:00: [place] on inhaler 00 Medical Branch PROAIR HFA 2020-0 Yes [facility] 90 4-09 ity of mcg/actuati 00:00: [place] on inhaler 00 Medical Branch SYMBICORT 2020-0 Yes [facility] 160-4.5 4-09 ity of mcg/actuati 00:00: [place] on inhaler 00 Medical Branch PROAIR HFA 2020-0 Yes [facility] 90 4-09 ity of mcg/actuati 00:00: [place] on inhaler 00 [facility] Branch SYMBICORT 2020-0 Yes [facility] 160-4.5 4-09 ity of mcg/actuati 00:00: [place] on inhaler 00 Medical Branch PROAIR HFA 2020-0 Yes [facility] 90 4-09 ity of mcg/actuati 00:00: [place] on inhaler 00 Medical Branch SYMBICORT 2020-0 Yes [facility] 160-4.5 4-09 ity of mcg/actuati 00:00: [place] on inhaler 00 Medical Branch PROAIR HFA 2020-0 Yes [facility] 90 4-09 ity of mcg/actuati 00:00: [place] on inhaler 00 Medical Branch SYMBICORT 2020-0 Yes [facility] 160-4.5 4-09 ity of mcg/actuati 00:00: [place] on inhaler 00 Medical Branch PROAIR HFA 2020-0 Yes [facility] 90 4-09 ity of mcg/actuati 00:00: [place] on inhaler 00 Medical Branch SYMBICORT 2020-0 Yes [facility] 160-4.5 4-09 ity of mcg/actuati 00:00: [place] on inhaler 00 Medical Branch PROAIR HFA 2020-0 Yes [facility] 90 4-09 ity of mcg/actuati 00:00: [place] on inhaler 00 Medical Branch SYMBICORT 2020-0 Yes [facility] 160-4.5 4-09 ity of mcg/actuati 00:00: [place] on inhaler 00 Medical Branch PROAIR HFA 2020-0 Yes [facility] 90 4-09 ity of mcg/actuati 00:00: [place] on inhaler 00 Medical Branch SYMBICORT 2020-0 Yes [facility] 160-4.5 4-09 ity of mcg/actuati 00:00: [place] on inhaler 00 Medical Branch PROAIR HFA 2020-0 Yes [facility] 90 4-09 ity of mcg/actuati 00:00: [place] on inhaler 00 Medical Branch SYMBICORT 2020-0 Yes [facility] 160-4.5 4-09 ity of mcg/actuati 00:00: [place] on inhaler 00 Medical Branch PROAIR HFA 2020-0 Yes [facility] 90 4-09 ity of mcg/actuati 00:00: [place] on inhaler 00 Medical Branch SYMBICORT 2020-0 Yes [facility] 160-4.5 4-09 ity of mcg/actuati 00:00: [place] on inhaler 00 Medical Branch PROAIR HFA 2020-0 Yes [facility] 90 4-09 ity of mcg/actuati 00:00: [place] on inhaler 00 Medical Branch SYMBICORT 2020-0 Yes [facility] 160-4.5 4-09 ity of mcg/actuati 00:00: [place] on inhaler 00 Medical Branch PROAIR HFA 2020-0 Yes [facility] 90 4-09 ity of mcg/actuati 00:00: [place] on inhaler 00 Medical Branch SYMBICORT 2020-0 Yes [facility] 160-4.5 4-09 ity of mcg/actuati 00:00: [place] on inhaler 00 Medical Branch PROAIR HFA 2020-0 Yes [facility] 90 4-09 ity of mcg/actuati 00:00: [place] on inhaler 00 Medical Branch SYMBICORT 2020-0 Yes [facility] 160-4.5 4-09 ity of mcg/actuati 00:00: [place] on inhaler 00 Medical Branch PROAIR HFA 2020-0 Yes [facility] 90 4-09 ity of mcg/actuati 00:00: [place] on inhaler 00 Medical Branch PROAIR HFA 2020-0 Yes [facility] 90 4-09 ity of mcg/actuati 00:00: [place] on inhaler 00 Medical Branch PROAIR HFA 2020-0 Yes [facility] 90 4-09 ity of mcg/actuati 00:00: [place] on inhaler 00 Medical Branch PROAIR HFA 2020-0 Yes [facility] 90 4-09 ity of mcg/actuati 00:00: [place] on inhaler 00 Medical Branch SYMBICORT 2020-0 2021- No Univers 160-4.5 4-09 12-06 ity of mcg/actuati 00:00: 00:00 [place] on inhaler 00 :00 Medical Branch azithromyci 2020-0 2020- No Unive rs n 250 mg 02-02 ity of tablet 00:00: 00:00 [place] 00 :00 Medical Branch azithromyci 2020-0 2020- No Unive rs n 250 mg 02-02 ity of tablet 00:00: 00:00 [place] 00 :00 Medical Branch azithromyci 2020-0 2020- No Unive rs n 250 mg 02-02 ity of tablet 00:00: 00:00 [place] 00 :00 Medical Branch amoxicillin 2020-0 Yes TK 1 T PO U nivers -clavulanat 2-10 BID ity of e 875-125 00:00: [place] mg per 00 Medical tablet Branch amoxicillin 2020-0 Yes TK 1 T PO U nivers -clavulanat 2-10 BID ity of e 875-125 00:00: [place] mg per 00 Medical tablet Branch amoxicillin 2020-0 Yes TK 1 T PO U nivers -clavulanat 2-10 BID ity of e 875-125 00:00: [place] mg per 00 Medical tablet Branch amoxicillin 2020-0 Yes TK 1 T PO U nivers -clavulanat 2-10 BID ity of e 875-125 00:00: [place] mg per 00 Medical tablet Branch amoxicillin 2020-0 Yes TK 1 T PO U nivers -clavulanat 2-10 BID ity of e 875-125 00:00: [place] mg per 00 Medical tablet Branch amoxicillin 2020-0 Yes TK 1 T PO U nivers -clavulanat 2-10 BID ity of e 875-125 00:00: [place] mg per 00 Medical tablet Branch amoxicillin 2020-0 Yes TK 1 T PO U nivers -clavulanat 2-10 BID ity of e 875-125 00:00: [place] mg per 00 Medical tablet Branch amoxicillin 2020-0 Yes TK 1 T PO U nivers -clavulanat 2-10 BID ity of e 875-125 00:00: [place] mg per 00 Medical tablet Branch amoxicillin 2020-0 Yes TK 1 T PO U nivers -clavulanat 2-10 BID ity of e 875-125 00:00: [place] mg per 00 Medical tablet Branch amoxicillin 2020-0 Yes TK 1 T PO U nivers -clavulanat 2-10 BID ity of e 875-125 00:00: [place] mg per 00 Medical tablet Branch amoxicillin 2020-0 Yes TK 1 T PO U nivers -clavulanat 2-10 BID ity of e 875-125 00:00: [place] mg per 00 Medical tablet Branch amoxicillin 2020-0 Yes TK 1 T PO U nivers -clavulanat 2-10 BID ity of e 875-125 00:00: [place] mg per 00 Medical tablet Branch amoxicillin 2020-0 Yes TK 1 T PO U nivers -clavulanat 2-10 BID ity of e 875-125 00:00: [place] mg per 00 Medical tablet Branch amoxicillin 2020-0 Yes TK 1 T PO U nivers -clavulanat 2-10 BID ity of e 875-125 00:00: [place] mg per 00 Medical tablet Branch amoxicillin 2020-0 Yes TK 1 T PO U nivers -clavulanat 2-10 BID ity of e 875-125 00:00: [place] mg per 00 Medical tablet Branch amoxicillin 2020-0 Yes TK 1 T PO U nivers -clavulanat 2-10 BID ity of e 875-125 00:00: [place] mg per 00 Medical tablet Branch amoxicillin 2020-0 Yes TK 1 T PO U nivers -clavulanat 2-10 BID ity of e 875-125 00:00: [place] mg per 00 Medical tablet Branch amoxicillin 2020-0 Yes TK 1 T PO U nivers -clavulanat 2-10 BID ity of e 875-125 00:00: [place] mg per 00 Medical tablet Branch amoxicillin 2020-0 Yes TK 1 T PO U nivers -clavulanat 2-10 BID ity of e 875-125 00:00: [place] mg per 00 Medical tablet Branch amoxicillin 2020-0 Yes TK 1 T PO U nivers -clavulanat 2-10 BID ity of e 875-125 00:00: [place] mg per 00 Medical tablet Branch amoxicillin 2020-0 Yes TK 1 T PO U nivers -clavulanat 2-10 BID ity of e 875-125 00:00: [place] mg per 00 Medical tablet Branch amoxicillin 2020-0 Yes TK 1 T PO U nivers -clavulanat 2-10 BID ity of e 875-125 00:00: [place] mg per 00 Medical tablet Branch amoxicillin 2020-0 Yes TK 1 T PO U nivers -clavulanat 2-10 BID ity of e 875-125 00:00: [place] mg per 00 Medical tablet Branch amoxicillin 2020-0 Yes TK 1 T PO U nivers -clavulanat 2-10 BID ity of e 875-125 00:00: [place] mg per 00 Medical tablet Branch amoxicillin 2020-0 Yes TK 1 T PO U nivers -clavulanat 2-10 BID ity of e 875-125 00:00: [place] mg per 00 Medical tablet Branch amoxicillin 2020-0 Yes TK 1 T PO U nivers -clavulanat 2-10 BID ity of e 875-125 00:00: [place] mg per 00 Medical tablet Branch amoxicillin 2020-0 Yes TK 1 T PO U nivers -clavulanat 2-10 BID ity of e 875-125 00:00: [place] mg per 00 Medical tablet Branch amoxicillin 2020-0 Yes TK 1 T PO U nivers -clavulanat 2-10 BID ity of e 875-125 00:00: [place] mg per 00 Medical tablet Branch amoxicillin 2020-0 Yes TK 1 T PO U nivers -clavulanat 2-10 BID ity of e 875-125 00:00: [place] mg per 00 Medical tablet Branch amoxicillin 2020-0 Yes TK 1 T PO U nivers -clavulanat 2-10 BID ity of e 875-125 00:00: [place] mg per 00 Medical tablet Branch amoxicillin 2020-0 Yes TK 1 T PO U nivers -clavulanat 2-10 BID ity of e 875-125 00:00: [place] mg per 00 Medical tablet Branch amoxicillin 2020-0 Yes TK 1 T PO U nivers -clavulanat 2-10 BID ity of e 875-125 00:00: [place] mg per 00 Medical tablet Branch amoxicillin 2020-0 Yes TK 1 T PO U nivers -clavulanat 2-10 BID ity of e 875-125 00:00: [place] mg per 00 Medical tablet Branch amoxicillin 2020-0 Yes TK 1 T PO U nivers -clavulanat 2-10 BID ity of e 875-125 00:00: [place] mg per 00 Medical tablet Branch amoxicillin 2020-0 Yes TK 1 T PO U nivers -clavulanat 2-10 BID ity of e 875-125 00:00: [place] mg per 00 Medical tablet Branch amoxicillin 2020-0 Yes TK 1 T PO U nivers -clavulanat 2-10 BID ity of e 875-125 00:00: [place] mg per 00 Medical tablet Branch amoxicillin 2020-0 Yes TK 1 T PO U nivers -clavulanat 2-10 BID ity of e 875-125 00:00: [place] mg per 00 Medical tablet Branch amoxicillin 2020-0 Yes TK 1 T PO U nivers -clavulanat 2-10 BID ity of e 875-125 00:00: [place] mg per 00 Medical tablet Branch amoxicillin 2020-0 Yes TK 1 T PO U nivers -clavulanat 2-10 BID ity of e 875-125 00:00: [place] mg per 00 Medical tablet Branch amoxicillin 2020-0 Yes TK 1 T PO U nivers -clavulanat 2-10 BID ity of e 875-125 00:00: [place] mg per 00 Medical tablet Branch amoxicillin 2020-0 2021- No TK 1 T PO [facility] -clavulanat 2-10 12-06 BID ity of e 875-125 00:00: 00:00 [place] mg per 00 :00 Medical tablet Branch norethindro 2020-0 Yes Shwetha s ne-ethinyl 1-30 ity of estradiol 00:00: [place] 1-20 mg-mcg 00 Medical per tablet Branch norethindro 2020-0 Yes Shwetha s ne-ethinyl 1-30 ity of estradiol 00:00: [place] 1-20 mg-mcg 00 Medical per tablet Branch norethindro 2020-0 Yes Shwetha s ne-ethinyl 1-30 ity of estradiol 00:00: [place] 1-20 mg-mcg 00 Medical per tablet Branch norethindro 2020-0 Yes Shwetha s ne-ethinyl 1-30 ity of estradiol 00:00: [place] 1-20 mg-mcg 00 Medical per tablet Branch norethindro 2020-0 Yes Shwetha s ne-ethinyl 1-30 ity of estradiol 00:00: [place] 1-20 mg-mcg 00 Medical per tablet Branch norethindro 2020-0 Yes Shwetha s ne-ethinyl 1-30 ity of estradiol 00:00: [place] 1-20 mg-mcg 00 Medical per tablet Branch norethindro 2020-0 Yes Shwetha hanson ne-ethinyl 1-30 ity of estradiol 00:00: [place] 1-20 mg-mcg 00 Medical per tablet Branch norethindro 2020-0 Yes Shwetha hanson ne-ethinyl 1-30 ity of estradiol 00:00: [place] 1-20 mg-mcg 00 Medical per tablet Branch norethindro 2020-0 Yes Shwetha s ne-ethinyl 1-30 ity of estradiol 00:00: [place] 1-20 mg-mcg 00 Medical per tablet Branch norethindro 2020-0 Yes Shwetha hanson ne-ethinyl 1-30 ity of estradiol 00:00: [place] 1-20 mg-mcg 00 Medical per tablet Branch norethindro 2020-0 Yes Shwetha s ne-ethinyl 1-30 ity of estradiol 00:00: [place] 1-20 mg-mcg 00 Medical per tablet Branch norethindro 2020-0 Yes Shwetha hanson ne-ethinyl 1-30 ity of estradiol 00:00: [place] 1-20 mg-mcg 00 Medical per tablet Branch norethindro 2020-0 Yes Shwetha hanson ne-ethinyl 1-30 ity of estradiol 00:00: [place] 1-20 mg-mcg 00 Medical per tablet Branch norethindro 2020-0 Yes Shwetha hanson ne-ethinyl 1-30 ity of estradiol 00:00: [place] 1-20 mg-mcg 00 Medical per tablet Branch norethindro 2020-0 Yes Shwetha h[place] ne-ethinyl 1-30 ity of estradiol 00:00: [place] 1-20 mg-mcg 00 Medical per tablet Branch norethindro 2020-0 Yes Shwetha hanson ne-ethinyl 1-30 ity of estradiol 00:00: [place] 1-20 mg-mcg 00 Medical per tablet Branch norethindro 2020-0 Yes Shwetha hanson ne-ethinyl 1-30 ity of estradiol 00:00: [place] 1-20 mg-mcg 00 Medical per tablet Branch norethindro 2020-0 Yes Shwetha h[place] ne-ethinyl 1-30 ity of estradiol 00:00: [place] 1-20 mg-mcg 00 Medical per tablet Branch norethindro 2020-0 Yes Shwetha h[place] ne-ethinyl 1-30 ity of estradiol 00:00: [place] 1-20 mg-mcg 00 Medical per tablet Branch norethindro 2020-0 Yes Shwetha h[facility] ne-ethinyl 1-30 ity of estradiol 00:00: [place] 1-20 mg-mcg 00 Medical per tablet Branch norethindro 2020-0 Yes Shwetha h[place] ne-ethinyl 1-30 ity of estradiol 00:00: [place] 1-20 mg-mcg 00 Medical per tablet Branch norethindro 2020-0 Yes Shwetha s ne-ethinyl 1-30 ity of estradiol 00:00: [place] 1-20 mg-mcg 00 Medical per tablet Branch norethindro 2020-0 Yes Shwetha s ne-ethinyl 1-30 ity of estradiol 00:00: [place] 1-20 mg-mcg 00 Medical per tablet Branch norethindro 2020-0 Yes Shwetha s ne-ethinyl 1-30 ity of estradiol 00:00: [place] 1-20 mg-mcg 00 Medical per tablet Branch norethindro 2020-0 Yes Shwetha s ne-ethinyl 1-30 ity of estradiol 00:00: [place] 1-20 mg-mcg 00 Medical per tablet Branch norethindro 2020-0 Yes Shwetha hanson ne-ethinyl 1-30 ity of estradiol 00:00: [place] 1-20 mg-mcg 00 Medical per tablet Branch norethindro 2020-0 Yes Shwetha h[facility] ne-ethinyl 1-30 ity of estradiol 00:00: [place] 1-20 mg-mcg 00 Medical per tablet Branch norethindro 2020-0 Yes Shwetha h[facility] ne-ethinyl 1-30 ity of estradiol 00:00: [place] 1-20 mg-mcg 00 Medical per tablet Branch norethindro 2020-0 Yes Shwetha h[facility] ne-ethinyl 1-30 ity of estradiol 00:00: [place] 1-20 mg-mcg 00 Medical per tablet Branch norethindro 2020-0 Yes Shwetha h[facility] ne-ethinyl 1-30 ity of estradiol 00:00: [place] 1-20 mg-mcg 00 Medical per tablet Branch norethindro 2020-0 Yes Shwetha h[facility] ne-ethinyl 1-30 ity of estradiol 00:00: [place] 1-20 mg-mcg 00 Medical per tablet Branch norethindro 2020-0 Yes Shwetha h[facility] ne-ethinyl 1-30 ity of estradiol 00:00: [place] 1-20 mg-mcg 00 Medical per tablet Branch norethindro 2020-0 Yes Shwetha h[facility] ne-ethinyl 1-30 ity of estradiol 00:00: [place] 1-20 mg-mcg 00 Medical per tablet Branch norethindro 2020-0 Yes Shwetha s ne-ethinyl 1-30 ity of estradiol 00:00: [place] 1-20 mg-mcg 00 Medical per tablet Branch norethindro 2020-0 Yes Shwetha s ne-ethinyl 1-30 ity of estradiol 00:00: [place] 1-20 mg-mcg 00 Medical per tablet Branch norethindro 2020-0 Yes Shwetha s ne-ethinyl 1-30 ity of estradiol 00:00: [place] 1-20 mg-mcg 00 Medical per tablet Branch norethindro 2020-0 Yes Shwetha s ne-ethinyl 1-30 ity of estradiol 00:00: [place] 1-20 mg-mcg 00 Medical per tablet Branch norethindro 2020-0 Yes Shwetha s ne-ethinyl 1-30 ity of estradiol 00:00: [place] 1-20 mg-mcg 00 Medical per tablet Branch norethindro 2020-0 Yes Shwetha s ne-ethinyl 1-30 ity of estradiol 00:00: [place] 1-20 mg-mcg 00 Medical per tablet Branch norethindro 2020-0 Yes Shwetha s ne-ethinyl 1-30 ity of estradiol 00:00: [place] 1-20 mg-mcg 00 Medical per tablet Branch norethindro 2020-0 Yes Shwetha s ne-ethinyl 1-30 ity of estradiol 00:00: [place] 1-20 mg-mcg 00 Medical per tablet Branch norethindro 2020-0 Yes Shwetha s ne-ethinyl 1-30 ity of estradiol 00:00: [place] 1-20 mg-mcg 00 Medical per tablet Branch norethindro 2020-0 Yes Shwetha s ne-ethinyl 1-30 ity of estradiol 00:00: [place] 1-20 mg-mcg 00 Medical per tablet Branch norethindro 2020-0 Yes Shwetha h[facility] ne-ethinyl 1-30 ity of estradiol 00:00: [place] 1-20 mg-mcg 00 Medical per tablet Branch norethindro 2020-0 Yes Shwetha s ne-ethinyl 1-30 ity of estradiol 00:00: [place] 1-20 mg-mcg 00 Medical per tablet Branch norethindro 2020-0 Yes Shwetha hanson ne-ethinyl 1-30 ity of estradiol 00:00: [place] 1-20 mg-mcg 00 Medical per tablet Branch norethindro 2020-0 2- No Unive rs ne-ethinyl 11-25 ity of estradiol 00:00: 00:00 [place] 1-20 mg-mcg 00 :00 Medical per tablet Branch MY WAY 1.5 2020-0 Yes [facility] mg tablet 1-20 ity of 00:00: [place] [facility] MY WAY 1.5 2020-0 Yes [facility] mg tablet 1-20 ity of 00:00: [place] [facility] MY WAY 1.5 2020-0 Yes [facility] mg tablet 1-20 ity of 00:00: [place] [facility] MY WAY 1.5 2020-0 Yes [facility] mg tablet 1-20 ity of 00:00: [place] [facility] MY WAY 1.5 2020-0 Yes [facility] mg tablet 1-20 ity of 00:00: [place] [facility] [place] MY WAY 1.5 2020-0 Yes [facility] mg tablet 1-20 ity of 00:00: [place] [facility] MY WAY 1.5 2020-0 Yes [facility] mg tablet 1-20 ity of 00:00: [place] [facility] MY WAY 1.5 2020-0 Yes [facility] mg tablet 1-20 ity of 00:00: [place] [facility] MY WAY 1.5 2020-0 Yes [facility] mg tablet 1-20 ity of 00:00: [place] [facility] [place] MY WAY 1.5 2020-0 Yes [facility] mg tablet 1-20 ity of 00:00: [place] [facility] [place] MY WAY 1.5 2020-0 Yes [facility] mg tablet 1-20 ity of 00:00: [place] [facility] MY WAY 1.5 2020-0 Yes [facility] mg tablet 1-20 ity of 00:00: [place] [facility] MY WAY 1.5 2020-0 Yes [facility] mg tablet 1-20 ity of 00:00: [place] [facility] MY WAY 1.5 2020-0 Yes [facility] mg tablet 1-20 ity of 00:00: [place] [facility] MY WAY 1.5 2020-0 Yes [facility] mg tablet 1-20 ity of 00:00: [place] [facility] MY WAY 1.5 2020-0 Yes [facility] mg tablet 1-20 ity of 00:00: [place] [facility] MY WAY 1.5 2020-0 Yes [facility] mg tablet 1-20 ity of 00:00: [facility] MY WAY 1.5 2020-0 Yes [facility] tablet [facility]-20 [facility] 00:00: [facility] MY WAY 1.5 2020-0 Yes [facility]-20 [facility] 00:00: [facility] MY WAY 1.5 2020-0 Yes [facility] tablet [facility]-20 [facility] 00:00: [facility] MY WAY 1.5 2020-0 Yes [facility]-20 [facility] 00:00: [facility] MY WAY 1.5 2020-0 Yes [facility] tablet 1-20 [facility] 00:00: [facility] MY WAY 1.5 2020-0 Yes [facility] tablet 1-20 [facility] of 00:00: [facility] MY WAY 1.5 2020-0 Yes [facility] tablet 1-20 [facility]y of 00:00: [facility] MY WAY 1.5 2020-0 Yes [facility] tablet 1-20 [facility]y of 00:00: [facility] MY WAY 1.5 2020-0 Yes [facility] tablet 1-20 [facility] of 00:00: [facility] MY WAY 1.5 2020-0 Yes [facility] tablet 1-20 ity of 00:00: [facility] MY WAY 1.5 2020-0 Yes [facility] tablet 1-20 ity of 00:00: [facility] MY WAY 1.5 2020-0 Yes [facility] mg tablet 1-20 [facility] of 00:00: [facility] MY WAY 1.5 2020-0 Yes [facility] mg tablet 1-20 ity of 00:00: [facility] MY WAY 1.5 2020-0 Yes [facility] mg tablet 1-20 ity of 00:00: [facility] MY WAY 1.5 2020-0 Yes [facility] mg tablet 1-20 ity of 00:00: [facility] MY WAY 1.5 2020-0 Yes [facility] mg tablet 1-20 ity of 00:00: [facility] MY WAY 1.5 2020-0 Yes [facility] mg tablet 1-20 ity of 00:00: [facility] MY WAY 1.5 2020-0 Yes [facility] mg tablet 1-20 ity of 00:00: [facility] MY WAY 1.5 2020-0 Yes [facility] mg tablet 1-20 ity of 00:00: [facility] MY WAY 1.5 2020-0 Yes [facility] mg tablet 1-20 ity of 00:00: [facility] MY WAY 1.5 2020-0 Yes [facility] mg tablet 1-20 ity of 00:00: [facility] MY WAY 1.5 2020-0 Yes [facility] mg tablet 1-20 ity of 00:00: [facility] MY WAY 1.5 2020-0 Yes [facility] mg tablet 1-20 ity of 00:00: [facility] MY WAY 1.5 2020-0 Yes [facility] mg tablet 1-20 ity of 00:00: [facility] MY WAY 1.5 2020-0 Yes [facility] mg tablet 1-20 ity of 00:00: [facility] MY WAY 1.5 2020-0 Yes [facility] mg tablet 1-20 ity of 00:00: [facility] MY WAY 1.5 2020-0 Yes [facility] mg tablet 1-20 ity of 00:00: [facility] MY WAY 1.5 2020-0 Yes [facility] mg tablet 1-20 ity of 00:00: [facility] MY WAY 1.5 2020-0 Yes [facility] mg tablet 1-20 ity of 00:00: [facility] MY WAY 1.5 2020-0 2022- No Un[facility] mg tablet 1-20 -21 ity of 00:00: 00:00 [place] 00 :00 [facility] escitalopra 2020-0 Yes TK 1 T PO U nivers m oxalate 1-10 QD ity of 20 mg 00:00: [place] tablet 00 [facility] escitalopra 2020-0 Yes TK 1 T PO U nivers m oxalate 1-10 QD ity of 20 mg 00:00: [place] tablet 00 [facility] escitalopra 2020-0 Yes TK 1 T PO U nivers m oxalate 1-10 QD ity of 20 mg 00:00: [place] tablet 00 [facility] escitalopra 2020-0 Yes TK 1 T PO U nivers m oxalate 1-10 QD ity of 20 mg 00:00: [place] tablet 00 [facility] escitalopra 2020-0 Yes TK 1 T PO U nivers m oxalate 1-10 QD ity of 20 mg 00:00: [place] tablet 00 [facility] escitalopra 2020-0 Yes TK 1 T PO U nivers m oxalate 1-10 QD ity of 20 mg 00:00: [place] tablet 00 [facility] escitalopra 2020-0 Yes TK 1 T PO U nivers m oxalate 1-10 QD ity of 20 mg 00:00: [place] tablet 00 [facility] escitalopra 2020-0 Yes TK 1 T PO U nivers m oxalate 1-10 QD ity of 20 mg 00:00: [place] tablet 00 [facility] escitalopra 2020-0 Yes TK 1 T PO U nivers m oxalate 1-10 QD ity of 20 mg 00:00: [place] tablet 00 [facility] escitalopra 2020-0 Yes TK 1 T PO U nivers m oxalate 1-10 QD ity of 20 mg 00:00: [place] tablet 00 [facility] escitalopra 2020-0 Yes TK 1 T PO U nivers m oxalate 1-10 QD ity of 20 mg 00:00: [place] tablet 00 [facility] escitalopra 2020-0 Yes TK 1 T PO U nivers m oxalate 1-10 QD ity of 20 mg 00:00: [place] tablet 00 [facility] escitalopra 2020-0 Yes TK 1 T PO U nivers m oxalate 1-10 QD ity of 20 mg 00:00: [place] tablet 00 [facility] escitalopra 2020-0 Yes TK 1 T PO U nivers m oxalate 1-10 QD ity of 20 mg 00:00: [place] tablet 00 [facility] escitalopra 2020-0 Yes TK 1 T PO U nivers m oxalate 1-10 QD ity of 20 mg 00:00: [place] tablet 00 [facility] escitalopra 2020-0 Yes TK 1 T PO U nivers m oxalate 1-10 QD ity of 20 mg 00:00: [place] tablet 00 [facility] escitalopra 2020-0 Yes TK 1 T PO U nivers m oxalate 1-10 QD ity of 20 mg 00:00: [place] tablet 00 [facility] escitalopra 2020-0 Yes TK 1 T PO U nivers m oxalate 1-10 QD ity of 20 mg 00:00: [place] tablet 00 [facility] escitalopra 2020-0 Yes TK 1 T PO U nivers m oxalate 1-10 QD ity of 20 mg 00:00: [place] tablet 00 [facility] escitalopra 2020-0 Yes TK 1 T PO U nivers m oxalate 1-10 QD ity of 20 mg 00:00: [place] tablet 00 [facility] escitalopra 2020-0 Yes TK 1 T PO U nivers m oxalate 1-10 QD ity of 20 mg 00:00: [place] tablet 00 [facility] escitalopra 2020-0 Yes TK 1 T PO [facility] nivers m oxalate 1-10 QD ity of 20 mg 00:00: [place] tablet 00 [facility] escitalopra 2020-0 Yes TK 1 T PO [facility] nivers m oxalate 1-10 QD ity of 20 mg 00:00: [place] tablet 00 [facility] escitalopra 2020-0 Yes TK 1 T PO [facility] nivers m oxalate 1-10 QD ity of 20 mg 00:00: [place] tablet 00 [facility] escitalopra 2020-0 Yes TK 1 T PO [facility] n[facility] m oxalate 1-10 QD ity of 20 mg 00:00: [place] tablet 00 [facility] escitalopra 2020-0 Yes TK 1 T PO [facility] n[facility] m oxalate 1-10 QD ity of 20 mg 00:00: [place] tablet 00 [facility] escitalopra 2020-0 Yes TK 1 T PO [facility] n[facility] m oxalate 1-10 QD ity of 20 mg 00:00: [place] tablet 00 [facility] escitalopra 2020-0 Yes TK 1 T PO [facility] n[facility] m oxalate 1-10 QD ity of 20 mg 00:00: [place] tablet 00 [facility] escitalopra 2020-0 Yes TK 1 T PO [facility] nivers m oxalate 1-10 QD ity of 20 mg 00:00: [place] tablet 00 [facility] escitalopra 2020-0 Yes TK 1 T PO [facility] m oxalate 1-10 QD ity of 20 mg 00:00: [place] tablet 00 [facility] escitalopra 2020-0 Yes TK 1 T PO [facility] n[facility] m oxalate 1-10 QD ity of 20 mg 00:00: [place] tablet 00 [facility] escitalopra 2020-0 Yes TK 1 T PO [facility] m oxalate 1-10 QD ity of 20 mg 00:00: [place] tablet 00 [facility] escitalopra 2020-0 Yes TK 1 T PO [facility] n[facility] m oxalate 1-10 QD ity of 20 mg 00:00: [place] tablet 00 [facility] escitalopra 2020-0 Yes TK 1 T PO [facility] n[facility] m oxalate 1-10 QD ity of 20 mg 00:00: [place] tablet 00 [facility] escitalopra 2020-0 Yes TK 1 T PO [facility] n[facility] m oxalate 1-10 QD ity of 20 mg 00:00: [place] tablet 00 [facility] escitalopra 2020-0 Yes TK 1 T PO [facility] n[facility] m oxalate 1-10 QD ity of 20 mg 00:00: [place] tablet 00 [facility] escitalopra 2020-0 Yes TK 1 T PO [facility] n[facility] m oxalate 1-10 QD ity of 20 mg 00:00: [place] tablet 00 [facility] escitalopra 2020-0 Yes TK 1 T PO [facility] m oxalate 1-10 QD ity of 20 mg 00:00: [place] tablet 00 [facility] escitalopra 2020-0 Yes TK 1 T PO [facility] m oxalate 1-10 QD ity of 20 mg 00:00: [place] tablet 00 [facility] escitalopra 2020-0 Yes TK 1 T PO [facility] m oxalate 1-10 QD ity of 20 mg 00:00: [place] tablet 00 [facility] escitalopra 2020-0 Yes TK 1 T PO [facility] m oxalate 1-10 QD ity of 20 mg 00:00: [place] tablet 00 [facility] escitalopra 2020-0 Yes TK 1 T PO [facility] m oxalate 1-10 QD ity of 20 mg 00:00: [place] tablet 00 [facility] escitalopra 2020-0 Yes TK 1 T PO [facility] m oxalate 1-10 QD ity of 20 mg 00:00: [place] tablet 00 [facility] escitalopra 2020-0 Yes TK 1 T PO [facility] m oxalate 1-10 QD ity of 20 mg 00:00: [place] tablet 00 [facility] escitalopra 2020-0 Yes TK 1 T PO [facility] m oxalate 1-10 QD ity of 20 mg 00:00: [place] tablet 00 [facility] escitalopra 2020-0 Yes TK 1 T PO [facility] m oxalate 1-10 QD ity of 20 mg 00:00: [place] tablet 00 [facility] escitalopra 2020-0 Yes TK 1 T PO [facility] n[facility] m oxalate 1-10 QD ity of 20 mg 00:00: [place] tablet 00 [facility] escitalopra 2020-0 Yes TK 1 T PO [facility] n[facility] m oxalate 1-10 QD ity of 20 mg 00:00: [place] tablet 00 [facility] traZODONE 2019-0 Yes TAKE 1 Univer s 50 mg 5-09 TABLET BY ity of tablet 00:00: MOUTH [place] 00 EVERYDAY Medical AT BEDTIME Branch escitalopra 2019-0 Yes TAKE 1 [facility] ers m oxalate 5-09 TABLET BY ity o f 10 mg 00:00: MOUTH [place] tablet 00 EVERY Medical MORNING Branch traZODONE 2019-0 Yes TAKE 1 [facility] s 50 mg 5-09 TABLET BY ity of tablet 00:00: MOUTH [place] 00 EVERYDAY Medical AT BEDTIME Branch escitalopra 2019-0 Yes TAKE 1 [facility] ers m oxalate 5-09 TABLET BY ity o f 10 mg 00:00: MOUTH [place] tablet 00 EVERY Medical MORNING Branch traZODONE 2019-0 Yes TAKE 1 [facility] 50 mg 5-09 TABLET BY ity of tablet 00:00: MOUTH [place] 00 EVERYDAY Medical AT BEDTIME Branch traZODONE 2019-0 Yes TAKE 1 [facility] s 50 mg 5-09 TABLET BY ity of tablet 00:00: MOUTH [place] 00 EVERYDAY Medical AT BEDTIME Branch escitalopra 2019-0 Yes TAKE 1 [facility] ers m oxalate 5-09 TABLET BY ity o f 10 mg 00:00: MOUTH [place] tablet 00 EVERY Medical MORNING Branch traZODONE 2019-0 Yes TAKE 1 [facility] 50 mg 5-09 TABLET BY ity of tablet 00:00: MOUTH [place] 00 EVERYDAY Medical AT BEDTIME Branch traZODONE 2019-0 Yes TAKE 1 [facility] 50 mg 5-09 TABLET BY ity of tablet 00:00: MOUTH [place] 00 EVERYDAY Medical AT BEDTIME Branch escitalopra 2019-0 Yes TAKE 1 [facility] ers m oxalate 5-09 TABLET BY ity o f 10 mg 00:00: MOUTH [place] tablet 00 EVERY Medical MORNING Branch traZODONE 2019-0 Yes TAKE 1 [facility] 50 mg 5-09 TABLET BY ity of tablet 00:00: MOUTH [place] 00 EVERYDAY Medical AT BEDTIME Branch escitalopra 2019-0 Yes TAKE 1 [facility] ers m oxalate 5-09 TABLET BY ity o f 10 mg 00:00: MOUTH [place] tablet 00 EVERY Medical MORNING Branch traZODONE 2019-0 Yes TAKE 1 [facility] 50 mg 5-09 TABLET BY ity of tablet 00:00: MOUTH [place] 00 EVERYDAY Medical AT BEDTIME Branch escitalopra 2019-0 Yes TAKE 1 [facility] ers m oxalate 5-09 TABLET BY ity o f 10 mg 00:00: MOUTH [place] tablet 00 EVERY Medical MORNING Branch traZODONE 2019-0 Yes TAKE 1 [facility] 50 mg 5-09 TABLET BY ity of tablet 00:00: MOUTH [place] 00 EVERYDAY Medical AT BEDTIME Branch escitalopra 2019-0 Yes TAKE 1 [facility] ers m oxalate 5-09 TABLET BY ity o f 10 mg 00:00: MOUTH [place] tablet 00 EVERY Medical MORNING Branch traZODONE 20190 Yes TAKE 1 [facility] 50 mg 5-09 TABLET BY ity of tablet 00:00: MOUTH [place] 00 EVERYDAY Medical AT BEDTIME Branch traZODONE 2019-0 Yes TAKE 1 [facility] 50 mg 5-09 TABLET BY ity of tablet 00:00: MOUTH [place] 00 EVERYDAY Medical AT BEDTIME Branch escitalopra 20190 Yes TAKE 1 [facility] ers m oxalate 5-09 TABLET BY ity o f 10 mg 00:00: MOUTH [place] tablet 00 EVERY Medical MORNING Branch escitalopra 20190 Yes TAKE 1 [facility] ers m oxalate 5-09 TABLET BY ity o f 10 mg 00:00: MOUTH [place] tablet 00 EVERY Medical MORNING Branch traZODONE 20190 Yes TAKE 1 [facility] s 50 mg 5-09 TABLET BY ity of tablet 00:00: MOUTH [place] 00 EVERYDAY Medical AT BEDTIME Branch escitalopra 20190 Yes TAKE 1 [facility] ers m oxalate 5-09 TABLET BY ity o f 10 mg 00:00: MOUTH [place] tablet 00 EVERY Medical MORNING Branch traZODONE 2019-0 Yes TAKE 1 [facility] s 50 mg 5-09 TABLET BY ity of tablet 00:00: MOUTH [place] 00 EVERYDAY Medical AT BEDTIME Branch escitalopra 2019-0 Yes TAKE 1 [facility] ers m oxalate 5-09 TABLET BY ity o f 10 mg 00:00: MOUTH [place] tablet 00 EVERY Medical MORNING Branch traZODONE 2019-0 Yes TAKE 1 [facility] 50 mg 5-09 TABLET BY ity of tablet 00:00: MOUTH [place] 00 EVERYDAY Medical AT BEDTIME Branch escitalopra 2019-0 Yes TAKE 1 [facility] ers m oxalate 5-09 TABLET BY ity o f 10 mg 00:00: MOUTH [place] tablet 00 EVERY Medical MORNING Branch traZODONE 2019-0 Yes TAKE 1 [facility] s 50 mg 5-09 TABLET BY ity of tablet 00:00: MOUTH [place] 00 EVERYDAY Medical AT BEDTIME Branch traZODONE 2019-0 Yes TAKE 1 [facility] s 50 mg 5-09 TABLET BY ity of tablet 00:00: MOUTH [place] 00 EVERYDAY Medical AT BEDTIME Branch escitalopra 2019-0 Yes TAKE 1 [facility] ers m oxalate 5-09 TABLET BY ity o f 10 mg 00:00: MOUTH [place] tablet 00 EVERY Medical MORNING Branch escitalopra 2019-0 Yes TAKE 1 [facility] ers m oxalate 5-09 TABLET BY ity o f 10 mg 00:00: MOUTH [place] tablet 00 EVERY Medical MORNING Branch traZODONE 2019-0 Yes TAKE 1 [facility] 50 mg 5-09 TABLET BY ity of tablet 00:00: MOUTH [place] 00 EVERYDAY Medical AT BEDTIME Branch escitalopra 2019-0 Yes TAKE 1 [facility] ers m oxalate 5-09 TABLET BY ity o f 10 mg 00:00: MOUTH [place] tablet 00 EVERY Medical MORNING Branch traZODONE 2019-0 Yes TAKE 1 [facility] s 50 mg 5-09 TABLET BY ity of tablet 00:00: MOUTH [place] 00 EVERYDAY Medical AT BEDTIME Branch escitalopra 2019-0 Yes TAKE 1 [facility] ers m oxalate 5-09 TABLET BY ity o f 10 mg 00:00: MOUTH [place] tablet 00 EVERY Medical MORNING Branch traZODONE 2019-0 Yes TAKE 1 [facility] 50 mg 5-09 TABLET BY ity of tablet 00:00: MOUTH [place] 00 EVERYDAY Medical AT BEDTIME Branch escitalopra 2019-0 Yes TAKE 1 [facility] ers m oxalate 5-09 TABLET BY ity o f 10 mg 00:00: MOUTH [place] tablet 00 EVERY Medical MORNING Branch traZODONE 2019-0 Yes TAKE 1 [facility] s 50 mg 5-09 TABLET BY ity of tablet 00:00: MOUTH [place] 00 EVERYDAY Medical AT BEDTIME Branch escitalopra 2019-0 Yes TAKE 1 [facility] ers m oxalate 5-09 TABLET BY ity o f 10 mg 00:00: MOUTH [place] tablet 00 EVERY Medical MORNING Branch traZODONE 2019-0 Yes TAKE 1 [facility] 50 mg 5-09 TABLET BY ity of tablet 00:00: MOUTH [place] 00 EVERYDAY Medical AT BEDTIME Branch traZODONE 2019-0 Yes TAKE 1 [facility] s 50 mg 5-09 TABLET BY ity of tablet 00:00: MOUTH [place] 00 EVERYDAY Medical AT BEDTIME Branch escitalopra 2019-0 Yes TAKE 1 [facility] ers m oxalate 5-09 TABLET BY ity o f 10 mg 00:00: MOUTH [place] tablet 00 EVERY Medical MORNING Branch escitalopra 2019-0 Yes TAKE 1 [facility] ers m oxalate 5-09 TABLET BY ity o f 10 mg 00:00: MOUTH [place] tablet 00 EVERY Medical MORNING Branch traZODONE 20190 Yes TAKE 1 [facility] s 50 mg 5-09 TABLET BY ity of tablet 00:00: MOUTH [place] 00 EVERYDAY Medical AT BEDTIME Branch escitalopra 2019-0 Yes TAKE 1 [facility] ers m oxalate 5-09 TABLET BY ity o f 10 mg 00:00: MOUTH [place] tablet 00 EVERY Medical MORNING Branch traZODONE 20190 Yes TAKE 1 [facility] s 50 mg 5-09 TABLET BY ity of tablet 00:00: MOUTH [place] 00 EVERYDAY Medical AT BEDTIME Branch escitalopra 0 Yes TAKE 1 [facility] ers m oxalate 5-09 TABLET BY ity o f 10 mg 00:00: MOUTH [place] tablet 00 EVERY Medical MORNING Branch traZODONE 0 Yes TAKE 1 [facility] 50 mg 5-09 TABLET BY ity of tablet 00:00: MOUTH [place] 00 EVERYDAY Medical AT BEDTIME Branch escitalopra 20190 Yes TAKE 1 [facility] ers m oxalate 5-09 TABLET BY ity o f 10 mg 00:00: MOUTH [place] tablet 00 EVERY Medical MORNING Branch traZODONE 20190 Yes TAKE 1 [facility] 50 mg 5-09 TABLET BY ity of tablet 00:00: MOUTH [place] 00 EVERYDAY Medical AT BEDTIME Branch escitalopra 2019-0 Yes TAKE 1 [facility] ers m oxalate 5-09 TABLET BY ity o f 10 mg 00:00: MOUTH [place] tablet 00 EVERY Medical MORNING Branch traZODONE 2019-0 Yes TAKE 1 [facility] 50 mg 5-09 TABLET BY ity of tablet 00:00: MOUTH [place] 00 EVERYDAY Medical AT BEDTIME Branch escitalopra 2019-0 Yes TAKE 1 [facility] ers m oxalate 5-09 TABLET BY ity o f 10 mg 00:00: MOUTH [place] tablet 00 EVERY Medical MORNING Branch traZODONE 2019-0 Yes TAKE 1 Un[facility] s 50 mg 5-09 TABLET BY ity of tablet 00:00: MOUTH [place] 00 EVERYDAY Medical AT BEDTIME Branch escitalopra 2019-0 Yes TAKE 1 Univ ers m oxalate 5-09 TABLET BY ity o f 10 mg 00:00: MOUTH [place] tablet 00 EVERY Medical MORNING Branch traZODONE 2019-0 Yes TAKE 1 Univer s 50 mg 5-09 TABLET BY ity of tablet 00:00: MOUTH [place] 00 EVERYDAY Medical AT BEDTIME Branch escitalopra 2019-0 Yes TAKE 1 Univ ers m oxalate 5-09 TABLET BY ity o f 10 mg 00:00: MOUTH [place] tablet 00 EVERY Medical MORNING Branch traZODONE 2019-0 Yes TAKE 1 [facility] 50 mg 5-09 TABLET BY ity of tablet 00:00: MOUTH [place] 00 EVERYDAY Medical AT BEDTIME Branch escitalopra 2019-0 Yes TAKE 1 [facility] ers m oxalate 5-09 TABLET BY ity o f 10 mg 00:00: MOUTH [place] tablet 00 EVERY Medical MORNING Branch traZODONE 2019-0 Yes TAKE 1 [facility] 50 mg 5-09 TABLET BY ity of tablet 00:00: MOUTH [place] 00 EVERYDAY Medical AT BEDTIME Branch escitalopra 2019-0 Yes TAKE 1 [facility] ers m oxalate 5-09 TABLET BY ity o f 10 mg 00:00: MOUTH [place] tablet 00 EVERY Medical MORNING Branch traZODONE 2019-0 Yes TAKE 1 [facility] 50 mg 5-09 TABLET BY ity of tablet 00:00: MOUTH [place] 00 EVERYDAY Medical AT BEDTIME Branch escitalopra 2019-0 Yes TAKE 1 [facility] ers m oxalate 5-09 TABLET BY ity o f 10 mg 00:00: MOUTH [place] tablet 00 EVERY Medical MORNING Branch traZODONE 2019-0 Yes TAKE 1 [facility] 50 mg 5-09 TABLET BY ity of tablet 00:00: MOUTH [place] 00 EVERYDAY Medical AT BEDTIME Branch escitalopra 2019-0 Yes TAKE 1 [facility] ers m oxalate 5-09 TABLET BY ity o f 10 mg 00:00: MOUTH [place] tablet 00 EVERY Medical MORNING Branch traZODONE 2019-0 Yes TAKE 1 [facility] 50 mg 5-09 TABLET BY ity of tablet 00:00: MOUTH [place] 00 EVERYDAY Medical AT BEDTIME Branch escitalopra 2019-0 Yes TAKE 1 [facility] ers m oxalate 5-09 TABLET BY ity o f 10 mg 00:00: MOUTH [place] tablet 00 EVERY Medical MORNING Branch traZODONE 2019-0 Yes TAKE 1 [facility] 50 mg 5-09 TABLET BY ity of tablet 00:00: MOUTH [place] 00 EVERYDAY Medical AT BEDTIME Branch escitalopra 2019-0 Yes TAKE 1 [facility] ers m oxalate 5-09 TABLET BY ity o f 10 mg 00:00: MOUTH [place] tablet 00 EVERY Medical MORNING Branch traZODONE 2019-0 Yes TAKE 1 [facility] 50 mg 5-09 TABLET BY ity of tablet 00:00: MOUTH [place] 00 EVERYDAY Medical AT BEDTIME Branch escitalopra 2019-0 Yes TAKE 1 [facility] ers m oxalate 5-09 TABLET BY ity o f 10 mg 00:00: MOUTH [place] tablet 00 EVERY Medical MORNING Branch traZODONE 2019-0 Yes TAKE 1 [facility] 50 mg 5-09 TABLET BY ity of tablet 00:00: MOUTH [place] 00 EVERYDAY Medical AT BEDTIME Branch escitalopra 2019-0 Yes TAKE 1 [facility] ers m oxalate 5-09 TABLET BY ity o f 10 mg 00:00: MOUTH [place] tablet 00 EVERY Medical MORNING Branch traZODONE 20190 Yes TAKE 1 [facility] 50 mg 5-09 TABLET BY ity of tablet 00:00: MOUTH [place] 00 EVERYDAY Medical AT BEDTIME Branch traZODONE 2019-0 Yes TAKE 1 [facility] 50 mg 5-09 TABLET BY ity of tablet 00:00: MOUTH [place] 00 EVERYDAY Medical AT BEDTIME Branch escitalopra 2019-0 Yes TAKE 1 [facility] ers m oxalate 5-09 TABLET BY ity o f 10 mg 00:00: MOUTH [place] tablet 00 EVERY Medical MORNING Branch escitalopra 2019-0 Yes TAKE 1 [facility] ers m oxalate 5-09 TABLET BY ity o f 10 mg 00:00: MOUTH [place] tablet 00 EVERY Medical MORNING Branch traZODONE 2019-0 Yes TAKE 1 [facility] 50 mg 5-09 TABLET BY ity of tablet 00:00: MOUTH [place] 00 EVERYDAY Medical AT BEDTIME Branch escitalopra 2019-0 Yes TAKE 1 [facility] ers m oxalate 5-09 TABLET BY ity o f 10 mg 00:00: MOUTH [place] tablet 00 EVERY Medical MORNING Branch traZODONE 2019-0 Yes TAKE 1 [facility] 50 mg 5-09 TABLET BY ity of tablet 00:00: MOUTH [place] 00 EVERYDAY Medical AT BEDTIME Branch escitalopra 2019-0 Yes TAKE 1 [facility] ers m oxalate 5-09 TABLET BY ity o f 10 mg 00:00: MOUTH [place] tablet 00 EVERY Medical MORNING Branch traZODONE 2019-0 Yes TAKE 1 [facility] s 50 mg 5-09 TABLET BY ity of tablet 00:00: MOUTH [place] 00 EVERYDAY Medical AT BEDTIME Branch escitalopra 2019-0 Yes TAKE 1 [facility] ers m oxalate 5-09 TABLET BY ity o f 10 mg 00:00: MOUTH [place] tablet 00 EVERY Medical MORNING Branch traZODONE 2019-0 Yes TAKE 1 [facility] 50 mg 5-09 TABLET BY ity of tablet 00:00: MOUTH [place] 00 EVERYDAY Medical AT BEDTIME Branch escitalopra 2019-0 Yes TAKE 1 [facility] ers m oxalate 5-09 TABLET BY ity o f 10 mg 00:00: MOUTH [place] tablet 00 EVERY Medical MORNING Branch traZODONE 2019-0 Yes TAKE 1 [facility] 50 mg 5-09 TABLET BY ity of tablet 00:00: MOUTH [place] 00 EVERYDAY Medical AT BEDTIME Branch escitalopra 2019-0 Yes TAKE 1 [facility] ers m oxalate 5-09 TABLET BY ity o f 10 mg 00:00: MOUTH [place] tablet 00 EVERY Medical MORNING Branch traZODONE 2019-0 Yes TAKE 1 [facility] 50 mg 5-09 TABLET BY ity of tablet 00:00: MOUTH [place] 00 EVERYDAY Medical AT BEDTIME Branch escitalopra 2019-0 Yes TAKE 1 [facility] ers m oxalate 5-09 TABLET BY ity o f 10 mg 00:00: MOUTH [place] tablet 00 EVERY Medical MORNING Branch traZODONE 2019-0 Yes TAKE 1 [facility] 50 mg 5-09 TABLET BY ity of tablet 00:00: MOUTH [place] 00 EVERYDAY Medical AT BEDTIME Branch escitalopra 2019-0 Yes TAKE 1 [facility] ers m oxalate 5-09 TABLET BY ity o f 10 mg 00:00: MOUTH [place] tablet 00 EVERY Medical MORNING Branch traZODONE 2019-0 Yes TAKE 1 [facility] 50 mg 5-09 TABLET BY ity of tablet 00:00: MOUTH [place] 00 EVERYDAY Medical AT BEDTIME Branch escitalopra 2019-0 Yes TAKE 1 [facility] ers m oxalate 5-09 TABLET BY ity o f 10 mg 00:00: MOUTH [place] tablet 00 EVERY Medical MORNING Branch traZODONE 2019-0 Yes TAKE 1 [facility] s 50 mg 5-09 TABLET BY ity of tablet 00:00: MOUTH [place] 00 EVERYDAY Medical AT BEDTIME Branch escitalopra 2019-0 Yes TAKE 1 [facility] ers m oxalate 5-09 TABLET BY ity o f 10 mg 00:00: MOUTH [place] tablet 00 EVERY Medical MORNING Branch traZODONE 2019-0 Yes TAKE 1 [facility] 50 mg 5-09 TABLET BY ity of tablet 00:00: MOUTH [place] 00 EVERYDAY Medical AT BEDTIME Branch escitalopra 2019-0 Yes TAKE 1 [facility] ers m oxalate 5-09 TABLET BY ity o f 10 mg 00:00: MOUTH [place] tablet 00 EVERY Medical MORNING Branch traZODONE Yes TAKE 1 [facility] 50 mg 5-09 TABLET BY ity of tablet 00:00: MOUTH [place] 00 EVERYDAY Medical AT BEDTIME Branch escitalopra Yes TAKE 1 [facility] ers m oxalate 5-09 TABLET BY ity o f 10 mg 00:00: MOUTH [place] tablet 00 EVERY Medical MORNING Branch traZODONE Yes TAKE 1 [facility] 50 mg 5-09 TABLET BY ity of tablet 00:00: MOUTH [place] 00 EVERYDAY Medical AT BEDTIME Branch escitalopra Yes TAKE 1 [facility] ers m oxalate 5-09 TABLET BY ity o f 10 mg 00:00: MOUTH [place] tablet 00 EVERY Medical MORNING Branch escitalopra 2021- No TAKE 1 [facility] vers m oxalate 5-09 09-21 TABLET BY ity of 10 mg 00:00: 00:00 MOUTH [place] tablet 00 :00 EVERY Medical MORNING Branch No known [facility] F[facility] Immunization Date Status Comments [facility] e Immunization Name Name [facility] 2017-10-16 Completed [facility] 00:00:00 [facility] Influenza Virus 2017-10-16 Completed Universit y of Vaccine Quad IM 3+ 00:00:00 [facility] Tdap 2017-10-16 Completed University of 00:00:00 [facility] Influenza Virus 2017-10-16 Completed Universit y of Vaccine Quad IM 3+ 00:00:00 [facility] TDAP 2017-10-16 Completed University of 00:00:00 [facility] Influenza Virus 2017-10-16 Completed Universit y of Vaccine Quad IM 3+ 00:00:00 [facility] TDAP 2017-10-16 Completed University of 00:00:00 [facility] Influenza Virus 2017-10-16 Completed Universit y of Vaccine Quad IM 3+ 00:00:00 [facility] TDAP 2017-10-16 Completed University of 00:00:00 [facility] Influenza Virus 2017-10-16 Completed Universit y of Vaccine Quad IM 3+ 00:00:00 [facility] Tdap 2017-10-16 Completed University of 00:00:00 [facility] Influenza Virus 2017-10-16 Completed Universit y of Vaccine Quad IM 3+ 00:00:00 [facility] Tdap 2017-10-16 Completed University of 00:00:00 [facility] Influenza Virus 2017-10-16 Completed Universit y of Vaccine Quad IM 3+ 00:00:00 [facility] Tdap 2017-10-16 Completed University of 00:00:00 [facility] Influenza Virus 2017-10-16 Completed Universit y of Vaccine Quad IM 3+ 00:00:00 [facility] Tdap 2017-10-16 Completed University of 00:00:00 [facility] Influenza Virus 2017-10-16 Completed Universit y of Vaccine Quad IM 3+ 00:00:00 [facility] Tdap 2017-10-16 Completed University of 00:00:00 [facility] Influenza Virus 2017-10-16 Completed Universit y of Vaccine Quad IM 3+ 00:00:00 [facility] Tdap 2017-10-16 Completed University of 00:00:00 [facility] Influenza Virus 2017-10-16 Completed Universit y of Vaccine Quad IM 3+ 00:00:00 [facility] Tdap 2017-10-16 Completed University of 00:00:00 [facility] Influenza Virus 2017-10-16 Completed Universit y of Vaccine Quad IM 3+ 00:00:00 [facility] Tdap 2017-10-16 Completed University of 00:00:00 [facility] Influenza Virus 2017-10-16 Completed Universit y of Vaccine Quad IM 3+ 00:00:00 [facility] TDAP 2017-10-16 Completed University of 00:00:00 [facility] Influenza Virus 2017-10-16 Completed Universit y of Vaccine Quad IM 3+ 00:00:00 [facility] TDAP 2017-10-16 Completed University of 00:00:00 [facility] Influenza Virus 2017-10-16 Completed Universit y of Vaccine Quad IM 3+ 00:00:00 [facility] TDAP 2017-10-16 Completed University of 00:00:00 [facility] Influenza Virus 2017-10-16 Completed Universit y of Vaccine Quad IM 3+ 00:00:00 [facility] TDAP 2017-10-16 Completed University of 00:00:00 [facility] Influenza Virus 2017-10-16 Completed Universit y of Vaccine Quad IM 3+ 00:00:00 [facility] TDAP 2017-10-16 Completed University of 00:00:00 [facility] Tdap 2017-10-16 Completed University of 00:00:00 [facility] Influenza Virus 2017-10-16 Completed Universit y of Vaccine Quad IM 3+ 00:00:00 [facility] Influenza Virus 2017-10-16 Completed [facility]ine [facility] IM 3+ 00:00:00 [facility] TDAP 2017-10-16 Completed [facility] of 00:00:00 [facility] Influenza Virus 2017-10-16 Completed [facility] Vaccine Quad IM 3+ 00:00:00 [facility] TDAP 2017-10-16 Completed [facility] of 00:00:00 [facility] Influenza Virus 2017-10-16 Completed [facility] Vaccine Quad IM 3+ 00:00:00 [facility] TDAP 2017-10-16 Completed [facility] of 00:00:00 [facility] Influenza Virus 2017-10-16 Completed [facility] Vaccine Quad IM 3+ 00:00:00 [facility] TDAP 2017-10-16 Completed [facility] of 00:00:00 [facility] Influenza Virus 2017-10-16 Completed [facility] Vaccine [facility] IM 3+ 00:00:00 [facility] TDAP 2017-10-16 Completed [facility] of 00:00:00 [facility] Influenza Virus 2017-10-16 Completed [facility] Vaccine [facility] IM 3+ 00:00:00 [facility] Tdap 2017-10-16 Completed [facility] of 00:00:00 [facility] Influenza Virus 2017-10-16 Completed [facility] Vaccine [facility] IM 3+ 00:00:00 [facility] TDAP 2017-10-16 Completed [facility] of 00:00:00 [facility] Influenza Virus 2017-10-16 Completed [facility] Vaccine Quad IM 3+ 00:00:00 [facility] TDAP 2017-10-16 Completed [facility] of 00:00:00 [facility] Influenza Virus 2017-10-16 Completed [facility] Vaccine Quad IM 3+ 00:00:00 [facility] TDAP 2017-10-16 Completed [facility] of 00:00:00 [facility] Influenza Virus 2017-10-16 Completed [facility] Vaccine [facility] IM 3+ 00:00:00 [facility] TDAP 2017-10-16 Completed [facility] of 00:00:00 [facility] Influenza Virus 2017-10-16 Completed [facility] Vaccine Quad IM 3+ 00:00:00 [facility] TDAP 2017-10-16 Completed [facility] of 00:00:00 [facility] Influenza Virus 2017-10-16 Completed [facility] Vaccine Quad IM 3+ 00:00:00 [facility] TDAP 2017-10-16 Completed [facility] of 00:00:00 [facility] Influenza Virus 2017-10-16 Completed [facility] Vaccine [facility] IM 3+ 00:00:00 [facility] TDAP 2017-10-16 Completed [facility] of 00:00:00 [facility] Influenza Virus 2017-10-16 Completed [facility] Vaccine [facility] IM 3+ 00:00:00 [facility] TDAP 2017-10-16 Completed [facility] of 00:00:00 [facility] Influenza Virus 2017-10-16 Completed [facility] Vaccine [facility] IM 3+ 00:00:00 [facility] TDAP 2017-10-16 Completed [facility] of 00:00:00 [facility] Influenza Virus 2017-10-16 Completed [facility] Vaccine [facility] IM 3+ 00:00:00 [facility] Tdap 2017-10-16 Completed [facility] of 00:00:00 [facility] Influenza Virus 2017-10-16 Completed [facility] Vaccine [facility] IM 3+ 00:00:00 [facility] TDAP 2017-10-16 Completed [facility] of 00:00:00 [facility] Influenza Virus 2017-10-16 Completed [facility] Vaccine [facility] IM 3+ 00:00:00 [facility] TDAP 2017-10-16 Completed [facility] of 00:00:00 [facility] Influenza Virus 2017-10-16 Completed [facility] Vaccine [facility] IM 3+ 00:00:00 [facility] TDAP 2017-10-16 Completed [facility] of 00:00:00 [facility] Influenza Virus 2017-10-16 Completed [facility] Vaccine [facility] IM 3+ 00:00:00 [facility] TDAP 2017-10-16 Completed [facility] of 00:00:00 [facility] Influenza Virus 2017-10-16 Completed [facility] Vaccine [facility] IM 3+ 00:00:00 [facility] TDAP 2017-10-16 Completed [facility] of 00:00:00 [facility] Influenza Virus 2017-10-16 Completed [facility] Vaccine [facility] IM 3+ 00:00:00 [facility] TDAP 2017-10-16 Completed [facility] of 00:00:00 [facility] Influenza Virus 2017-10-16 Completed [facility] Vaccine [facility] IM 3+ 00:00:00 [facility] TDAP 2017-10-16 Completed [facility] of 00:00:00 [facility] Influenza Virus 2017-10-16 Completed [facility] Vaccine [facility] IM 3+ 00:00:00 [facility] Tdap 2017-10-16 Completed [facility] of 00:00:00 [facility] Influenza Virus 2017-10-16 Completed [facility] Vaccine [facility] IM 3+ 00:00:00 [facility] TDAP 2017-10-16 Completed [facility] of 00:00:00 [facility] Influenza Virus 2017-10-16 Completed [facility] Vaccine [facility] IM 3+ 00:00:00 [facility] TDAP 2017-10-16 Completed [facility] of 00:00:00 [facility] Influenza Virus 2017-10-16 Completed [facility] Vaccine [facility] IM 3+ 00:00:00 [facility] TDAP 2017-10-16 Completed [facility] of 00:00:00 [facility] Influenza Virus 2017-10-16 Completed [facility] Vaccine Quad IM 3+ 00:00:00 [facility] TDAP 2017-10-16 Completed [facility] of 00:00:00 [facility] Influenza Virus 2017-10-16 Completed [facility] Vaccine [facility] IM 3+ 00:00:00 [facility] Tdap 2017-10-16 Completed [facility] of 00:00:00 [facility] TDAP 2017-10-16 Completed [facility] of 00:00:00 [facility] Influenza Virus 2017-10-16 Completed [facility] Vaccine [facility] IM 3+ 00:00:00 [facility] Influenza Virus 2017-10-16 Completed [facility] Vaccine [facility] IM 3+ 00:00:00 [facility] TDAP 2017-10-16 Completed [facility] of 00:00:00 [facility] Influenza Virus 2017-10-16 Completed [facility] Vaccine Quad IM 3+ 00:00:00 [facility] TDAP 2017-10-16 Completed [facility] of 00:00:00 [facility] Influenza Virus 2017-10-16 Completed [facility] Vaccine Quad IM 3+ 00:00:00 [facility] TDAP 2016-01-18 Completed [facility] 00:00:00 [facility] Tdap 2016-01-18 Completed [facility] 00:00:00 [facility] TDAP 2016-01-18 Completed [facility] 00:00:00 [facility] TDAP 2016-01-18 Completed [facility] 00:00:00 [facility] TDAP 2016-01-18 Completed [facility] 00:00:00 [facility] Tdap 2016-01-18 Completed [facility] 00:00:00 [facility] Tdap 2016-01-18 Completed [facility] 00:00:00 [facility] Tdap 2016-01-18 Completed [facility] 00:00:00 [facility] Tdap 2016-01-18 Completed [facility] 00:00:00 [facility] Tdap 2016-01-18 Completed [facility] 00:00:00 [facility] Tdap 2016-01-18 Completed [facility] 00:00:00 [facility] Tdap 2016-01-18 Completed [facility] 00:00:00 [facility] Tdap 2016-01-18 Completed [facility] 00:00:00 [facility] TDAP 2016-01-18 Completed [facility] 00:00:00 [facility] TDAP 2016-01-18 Completed [facility] 00:00:00 [facility] TDAP 2016-01-18 Completed [facility] 00:00:00 [facility] TDAP 2016-01-18 Completed [facility] 00:00:00 [facility] Tdap 2016-01-18 Completed [facility] 00:00:00 [facility] TDAP 2016-01-18 Completed [facility] 00:00:00 [facility] TDAP 2016-01-18 Completed [facility] 00:00:00 [facility] TDAP 2016-01-18 Completed [facility] 00:00:00 [facility] TDAP 2016-01-18 Completed [facility] 00:00:00 [facility] TDAP 2016-01-18 Completed [facility] 00:00:00 [facility] Tdap 2016-01-18 Completed [facility] 00:00:00 [facility] TDAP 2016-01-18 Completed [facility] 00:00:00 [facility] TDAP 2016-01-18 Completed [facility] 00:00:00 [facility] TDAP 2016-01-18 Completed [facility] 00:00:00 [facility] TDAP 2016-01-18 Completed [facility] 00:00:00 [facility] TDAP 2016-01-18 Completed [facility] 00:00:00 [facility] TDAP 2016-01-18 Completed [facility] 00:00:00 [facility] TDAP 2016-01-18 Completed [facility] 00:00:00 [facility] TDAP 2016-01-18 Completed [facility] 00:00:00 [facility] TDAP 2016-01-18 Completed [facility] 00:00:00 [facility] Tdap 2016-01-18 Completed [facility] 00:00:00 [facility] TDAP 2016-01-18 Completed [facility] 00:00:00 [facility] TDAP 2016-01-18 Completed [facility] 00:00:00 [facility] TDAP 2016-01-18 Completed [facility] 00:00:00 [facility] TDAP 2016-01-18 Completed [facility] 00:00:00 [facility] TDAP 2016-01-18 Completed [facility] 00:00:00 [facility] TDAP 2016-01-18 Completed [facility] 00:00:00 [facility] TDAP 2016-01-18 Completed [facility] 00:00:00 [facility] Tdap 2016-01-18 Completed [facility] of 00:00:00 [facility] TDAP 2016-01-18 Completed [facility] 00:00:00 [facility] TDAP 2016-01-18 Completed [facility] 00:00:00 [facility] TDAP 2016-01-18 Completed [facility] 00:00:00 [facility] TDAP 2016-01-18 Completed [facility] 00:00:00 [facility] TDAP 2016-01-18 Completed [facility] of 00:00:00 [facility] Tdap 2016-01-18 Completed [facility] of 00:00:00 [facility] TDAP 2016-01-18 Completed [facility] 00:00:00 [facility] TDAP 2016-01-18 Completed [facility] 00:00:00 [facility] TDAP 2016-01-18 Completed [facility] of 00:00:00 [facility] TDAP 2014-05-18 Completed [facility] 00:00:00 [facility] Tdap 2014-05-18 Completed [facility] 00:00:00 [facility] TDAP 2014-05-18 Completed [facility] 00:00:00 [facility] TDAP 2014-05-18 Completed [facility] 00:00:00 [facility] TDAP 2014-05-18 Completed [facility] 00:00:00 [facility] Tdap 2014-05-18 Completed [facility] of 00:00:00 [facility] Tdap 2014-05-18 Completed [facility] of 00:00:00 [facility] Tdap 2014-05-18 Completed [facility] 00:00:00 [facility] Tdap 2014-05-18 Completed [facility] 00:00:00 [facility] Tdap 2014-05-18 Completed [facility] 00:00:00 [facility] Tdap 2014-05-18 Completed [facility] 00:00:00 [facility] Tdap 2014-05-18 Completed [facility] 00:00:00 [facility] Tdap 2014-05-18 Completed [facility] 00:00:00 [facility] Tdap 2014-05-18 Completed [facility] 00:00:00 [facility] TDAP 2014-05-18 Completed [facility] 00:00:00 [facility] TDAP 2014-05-18 Completed [facility] 00:00:00 [facility] TDAP 2014-05-18 Completed [facility] 00:00:00 [facility] TDAP 2014-05-18 Completed [facility] 00:00:00 [facility] Tdap 2014-05-18 Completed [facility] 00:00:00 [facility] TDAP 2014-05-18 Completed [facility] 00:00:00 [facility] TDAP 2014-05-18 Completed [facility] 00:00:00 [facility] TDAP 2014-05-18 Completed [facility] 00:00:00 [facility] TDAP 2014-05-18 Completed [facility] 00:00:00 [facility] Tdap 2014-05-18 Completed [facility] 00:00:00 [facility] TDAP 2014-05-18 Completed [facility] 00:00:00 [facility] TDAP 2014-05-18 Completed [facility] 00:00:00 [facility] TDAP 2014-05-18 Completed [facility] 00:00:00 [facility] TDAP 2014-05-18 Completed [facility] 00:00:00 [facility] TDAP 2014-05-18 Completed [facility] 00:00:00 [facility] TDAP 2014-05-18 Completed [facility] 00:00:00 [facility] TDAP 2014-05-18 Completed [facility] 00:00:00 [facility] TDAP 2014-05-18 Completed [facility] 00:00:00 [facility] TDAP 2014-05-18 Completed [facility] of 00:00:00 [facility] Tdap 2014-05-18 Completed [facility] of 00:00:00 [facility] TDAP 2014-05-18 Completed [facility] of 00:00:00 [facility] TDAP 2014-05-18 Completed [facility] of 00:00:00 [facility] TDAP 2014-05-18 Completed [facility] of 00:00:00 [facility] TDAP 2014-05-18 Completed [facility] of 00:00:00 [facility] TDAP 2014-05-18 Completed [facility] of 00:00:00 [facility] TDAP 2014-05-18 Completed [facility] of 00:00:00 [facility] TDAP 2014-05-18 Completed [facility] of 00:00:00 [facility] TDAP 2014-05-18 Completed [facility] of 00:00:00 [facility] Tdap 2014-05-18 Completed [facility] of 00:00:00 [facility] TDAP 2014-05-18 Completed [facility] of 00:00:00 [facility] TDAP 2014-05-18 Completed [facility] of 00:00:00 [facility] TDAP 2014-05-18 Completed [facility] of 00:00:00 [facility] TDAP 2014-05-18 Completed [facility] of 00:00:00 [facility] TDAP 2014-05-18 Completed [facility] of 00:00:00 [facility] Tdap 2014-05-18 Completed [facility] of 00:00:00 [facility] TDAP 2014-05-18 Completed [facility] of 00:00:00 [facility] TDAP 2014-05-18 Completed [facility] of 00:00:00 [facility] TDAP 2014-05-18 Completed [facility] of 00:00:00 [facility] Pneumococcal 2008-05-11 Completed University o f Polysaccharide, 00:00:00 [place] [facility] PPSV23 (PNEUMOVAX) [facility] Pneumococcal 2008-05-11 Completed [facility] o f Polysaccharide, 00:00:00 [place] [facility] PPSV23 (PNEUMOVAX) [facility] Pneumococcal 2008-05-11 Completed University o f Polysaccharide, 00:00:00 [place] [facility] PPSV23 (PNEUMOVAX) Branch Pneumococcal 2008-05-11 Completed University o f Polysaccharide, 00:00:00 [place] [facility] PPSV23 (PNEUMOVAX) Branch Pneumococcal 2008-05-11 Completed [facility] o f Polysaccharide, 00:00:00 [place] [facility] PPSV23 (PNEUMOVAX) Branch Pneumococcal 2008-05-11 Completed University o f Polysaccharide, 00:00:00 [place] [facility] PPSV23 (PNEUMOVAX) Branch Pneumococcal 2008-05-11 Completed [facility] o f Polysaccharide, 00:00:00 [place] [facility] PPSV23 (PNEUMOVAX) Branch Pneumococcal 2008-05-11 Completed [facility] o f Polysaccharide, 00:00:00 [place] [facility] PPSV23 (PNEUMOVAX) Branch Pneumococcal 2008-05-11 Completed [facility] o f Polysaccharide, 00:00:00 [place] [facility] PPSV23 (PNEUMOVAX) Branch Pneumococcal 2008-05-11 Completed [facility] o f Polysaccharide, 00:00:00 [place] [facility] PPSV23 (PNEUMOVAX) Branch Pneumococcal 2008-05-11 Completed [facility] o f Polysaccharide, 00:00:00 [facility] PPSV23 (PNEUMOVAX) Branch Pneumococcal 2008-05-11 Completed [facility] o f Polysaccharide, 00:00:00 [place] [facility] PPSV23 (PNEUMOVAX) Branch Pneumococcal 2008-05-11 Completed University o f Polysaccharide, 00:00:00 [place] [facility] PPSV23 (PNEUMOVAX) Branch Pneumococcal 2008-05-11 Completed [facility] o f Polysaccharide, 00:00:00 [place] [facility] PPSV23 (PNEUMOVAX) Branch Pneumococcal 2008-05-11 Completed [facility] o f Polysaccharide, 00:00:00 [place] [facility] PPSV23 (PNEUMOVAX) Branch Pneumococcal 2008-05-11 Completed [facility] o f Polysaccharide, 00:00:00 [place] [facility] PPSV23 (PNEUMOVAX) Branch Pneumococcal 2008-05-11 Completed [facility] o f Polysaccharide, 00:00:00 [place] [facility] PPSV23 (PNEUMOVAX) Branch Pneumococcal 2008-05-11 Completed [facility] o f Polysaccharide, 00:00:00 [place] [facility] PPSV23 (PNEUMOVAX) Branch Pneumococcal 2008-05-11 Completed [facility] o f Polysaccharide, 00:00:00 [place] [facility] PPSV23 (PNEUMOVAX) Branch Pneumococcal 2008-05-11 Completed [facility] o f Polysaccharide, 00:00:00 [place] [facility] PPSV23 (PNEUMOVAX) Branch Pneumococcal 2008-05-11 Completed [facility] o f Polysaccharide, 00:00:00 [place] [facility] PPSV23 (PNEUMOVAX) Branch Pneumococcal 2008-05-11 Completed [facility] o f Polysaccharide, 00:00:00 [place] [facility] PPSV23 (PNEUMOVAX) Branch Pneumococcal 2008-05-11 Completed [facility] o f Polysaccharide, 00:00:00 [place] [facility] PPSV23 (PNEUMOVAX) Branch Pneumococcal 2008-05-11 Completed [facility] o f Polysaccharide, 00:00:00 [place] [facility] PPSV23 (PNEUMOVAX) Branch Pneumococcal 2008-05-11 Completed [facility] o f Polysaccharide, 00:00:00 [place] [facility] PPSV23 (PNEUMOVAX) Branch Pneumococcal 2008-05-11 Completed [facility] o f Polysaccharide, 00:00:00 [place] [facility] PPSV23 (PNEUMOVAX) Branch Pneumococcal 2008-05-11 Completed [facility] o f Polysaccharide, 00:00:00 [place] [facility] PPSV23 (PNEUMOVAX) Branch Pneumococcal 2008-05-11 Completed [facility] o f Polysaccharide, 00:00:00 [place] [facility] PPSV23 (PNEUMOVAX) Branch Pneumococcal 2008-05-11 Completed [facility] o f Polysaccharide, 00:00:00 [place] [facility] PPSV23 (PNEUMOVAX) Branch Pneumococcal 2008-05-11 Completed [facility] o f Polysaccharide, 00:00:00 [place] [facility] PPSV23 (PNEUMOVAX) Branch Pneumococcal 2008-05-11 Completed [facility] o f Polysaccharide, 00:00:00 [place] [facility] PPSV23 (PNEUMOVAX) Branch Pneumococcal 2008-05-11 Completed [facility] o f Polysaccharide, 00:00:00 [place] [facility] PPSV23 (PNEUMOVAX) Branch Pneumococcal 2008-05-11 Completed [facility] o f Polysaccharide, 00:00:00 [place] [facility] PPSV23 (PNEUMOVAX) Branch Pneumococcal 2008-05-11 Completed [facility] o f Polysaccharide, 00:00:00 [place] [facility] PPSV23 (PNEUMOVAX) Branch Pneumococcal 2008-05-11 Completed [facility] o f Polysaccharide, 00:00:00 [place] [facility] PPSV23 (PNEUMOVAX) Branch Pneumococcal 2008-05-11 Completed [facility] o f Polysaccharide, 00:00:00 [place] [facility] PPSV23 (PNEUMOVAX) Branch Pneumococcal 2008-05-11 Completed [facility] o f Polysaccharide, 00:00:00 [place] [facility] PPSV23 (PNEUMOVAX) Branch Pneumococcal 2008-05-11 Completed [facility] o f Polysaccharide, 00:00:00 [place] [facility] PPSV23 (PNEUMOVAX) Branch Pneumococcal 2008-05-11 Completed [facility] o f Polysaccharide, 00:00:00 [place] [facility] PPSV23 (PNEUMOVAX) Branch Pneumococcal 2008-05-11 Completed [facility] o f Polysaccharide, 00:00:00 [place] [facility] PPSV23 (PNEUMOVAX) Branch Pneumococcal 2008-05-11 Completed [facility] o f Polysaccharide, 00:00:00 [place] [facility] PPSV23 (PNEUMOVAX) Branch Pneumococcal 2008-05-11 Completed [facility] o f Polysaccharide, 00:00:00 [place] [facility] PPSV23 (PNEUMOVAX) Branch Pneumococcal 2008-05-11 Completed [facility] o f Polysaccharide, 00:00:00 [place] [facility] PPSV23 (PNEUMOVAX) Branch Pneumococcal 2008-05-11 Completed [facility] o f Polysaccharide, 00:00:00 [place] [facility] PPSV23 (PNEUMOVAX) Branch Pneumococcal 2008-05-11 Completed [facility] o f Polysaccharide, 00:00:00 [place] [facility] PPSV23 (PNEUMOVAX) Branch Pneumococcal 2008-05-11 Completed [facility] o f Polysaccharide, 00:00:00 [place] [facility] PPSV23 (PNEUMOVAX) Branch Pneumococcal 2008-05-11 Completed [facility] o f Polysaccharide, 00:00:00 [place] [facility] PPSV23 (PNEUMOVAX) Branch Pneumococcal 2008-05-11 Completed [facility] o f Polysaccharide, 00:00:00 [place] [facility] PPSV23 (PNEUMOVAX) Branch Pneumococcal 2008-05-11 Completed [facility] o f Polysaccharide, 00:00:00 [place] [facility] PPSV23 (PNEUMOVAX) Branch Pneumococcal 2008-05-11 Completed [facility] o f Polysaccharide, 00:00:00 [place] [facility] PPSV23 (PNEUMOVAX) Branch Pneumococcal 2008-05-11 Completed [facility] o f Polysaccharide, 00:00:00 [place] [facility] PPSV23 (PNEUMOVAX) Branch Pneumococcal 2008-05-11 Completed [facility] o f Polysaccharide, 00:00:00 [facility] PPSV23 (PNEUMOVAX) Branch Vital Signs Vital Name Observation Time Observation Value Comments Source Systolic blood 2022-07-17 15:56:00 137 mm[Hg] Univer sity of pressure [facility] Diastolic blood 2022-07-17 15:56:00 79 mm[Hg] Unive rsity of pressure [facility] Heart rate 2022-07-17 15:56:00 73 /min [facility] Body temperature 2022-07-17 15:56:00 37 Zainab [facility] Respiratory rate 2022-07-17 15:56:00 18 /min [facility] Body height 2022-07-17 15:56:00 154.9 cm [facility] Body weight 2022-07-17 15:56:00 123.242 kg [facility] BMI 2022-07-17 15:56:00 51.34 kg/m2 [facility] Oxygen saturation in 2022-07-17 15:56:00 95 /min [facility] of Arterial blood by [place] [facility] Systolic blood 2022-06-13 00:43:00 152 mm[Hg] Univer sity of pressure [facility] Diastolic blood 2022-06-13 00:43:00 98 mm[Hg] Unive rsity of pressure [facility] Heart rate 2022-06-13 00:41:00 90 /min [facility] Body temperature 2022-06-13 00:41:00 37.17 Zainab [facility] Respiratory rate 2022-06-13 00:41:00 16 /min [facility] Body height 2022-06-13 00:41:00 154.9 cm [facility] Body weight 2022-06-13 00:41:00 126.508 kg [facility] BMI 2022-06-13 00:41:00 52.70 kg/m2 [facility] Oxygen saturation in 2022-06-13 00:41:00 97 /min [facility] Arterial blood by [place] [facility] Systolic blood 2022-04-14 18:03:00 126 mm[Hg] Univer sity of pressure [facility] Diastolic blood 2022-04-14 18:03:00 87 mm[Hg] Unive rsity of pressure [facility] Heart rate 2022-04-14 18:03:00 83 /min [facility] Body temperature 2022-04-14 18:03:00 36.89 Zainab [facility] Respiratory rate 2022-04-14 18:03:00 18 /min [facility] Body height 2022-04-14 18:03:00 154.9 cm [facility] Body weight 2022-04-14 18:03:00 126.508 kg [facility] BMI 2022-04-14 18:03:00 52.70 kg/m2 [facility] Oxygen saturation in 2022-04-14 18:03:00 97 /min [facility] Arterial blood by [place] [facility] Body weight 2022-04-03 18:36:00 126.554 kg [facility] BMI 2022-04-03 18:36:00 52.72 kg/m2 [facility] Oxygen saturation in 2022-04-03 18:36:00 97 /min University of Arterial blood by [facility]ulse oximetry [facility] Systolic blood 2022-04-03 18:36:00 146 mm[Hg] Univer sity of pressure [facility] Diastolic blood 2022-04-03 18:36:00 86 mm[Hg] Unive rsity of pressure [facility] Heart rate 2022-04-03 18:36:00 84 /min [facility] Body temperature 2022-04-03 18:36:00 37.11 Zainab [facility] Respiratory rate 2022-04-03 18:36:00 18 /min [facility] Body height 2022-04-03 18:36:00 154.9 cm [facility] Systolic blood 2022-03-19 14:01:00 154 mm[Hg] Univer sity of pressure [facility] Diastolic blood 2022-03-19 14:01:00 82 mm[Hg] Unive rsity of pressure [facility] Heart rate 2022-03-19 14:01:00 61 /min [facility] Body temperature 2022-03-19 14:01:00 36.83 Zainab [facility] Respiratory rate 2022-03-19 14:01:00 18 /min [facility] Body height 2022-03-19 14:01:00 154.9 cm [facility] Body weight 2022-03-19 14:01:00 124.739 kg [facility] BMI 2022-03-19 14:01:00 51.96 kg/m2 [facility] Oxygen saturation in 2022-03-19 14:01:00 100 /min [facility] blood by [place] [facility] Systolic blood 2021-10-01 18:26:00 111 mm[Hg] Univer sity of pressure [facility] Diastolic blood 2021-10-01 18:26:00 76 mm[Hg] Unive rsity of pressure [facility] Heart rate 2021-10-01 18:26:00 103 /min [facility] Body temperature 2021-10-01 18:26:00 36.89 Zainab [facility] Respiratory rate 2021-10-01 18:26:00 16 /min [facility] Body height 2021-10-01 18:26:00 154.9 cm [facility] Body weight 2021-10-01 18:26:00 129.048 kg [facility] BMI 2021-10-01 18:26:00 53.76 kg/m2 [facility] Oxygen saturation in 2021-10-01 18:26:00 100 /min [facility] P[facility] oxim[facility] Heart rate 2020-08-04 21:50:00 74 /min [facility] Respiratory rate 2020-08-04 21:50:00 23 /min [facility] Oxygen saturation in 2020-08-04 21:50:00 95 /min [facility]ial [facility] Systolic blood 2020-08-04 21:35:00 106 mm[Hg] [facility] Diastolic blood 2020-08-04 21:35:00 63 mm[Hg] Unive rsity of [facility] Body temperature 2020-08-04 20:49:00 36.5 Zainab [facility] Body height 2020-08-04 18:08:00 154.9 cm [facility] Body weight 2020-08-04 18:08:00 124.739 kg [facility] BMI 2020-08-04 18:08:00 51.96 kg/m2 [facility] Heart rate 2020-08-04 21:50:00 74 /min Universi ty of [facility] Respiratory rate 2020-08-04 21:50:00 23 /min Univ ersity of [facility] Oxygen saturation in 2020-08-04 21:50:00 95 /min University of Arterial blood by [facility] Pulse oximetry Branch Systolic blood 2020-08-04 21:35:00 106 mm[Hg] Univer sity of pressure [facility] Diastolic blood 2020-08-04 21:35:00 63 mm[Hg] Unive rsity of pressure [facility] Body temperature 2020-08-04 20:49:00 36.5 Zainab Univ ersity of [facility] Body height 2020-08-04 18:08:00 154.9 cm [facility]i [facility] Body weight 2020-08-04 18:08:00 124.739 kg [facility] BMI 2020-08-04 18:08:00 51.96 kg/m2 [facility] Systolic blood 2020-06-05 18:07:00 123 mm[Hg] Univer sity of pressure [facility] Diastolic blood 2020-06-05 18:07:00 75 mm[Hg] Unive rsity of pressure [facility] Heart rate 2020-06-05 18:07:00 70 /min [facility] Body temperature 2020-06-05 18:07:00 36.72 Zainab Univ [facility] Respiratory rate 2020-06-05 18:07:00 16 /min Univ ersity of [facility] Body height 2020-06-05 18:07:00 156.2 cm [facility] Body weight 2020-06-05 18:07:00 129.91 kg [facility] BMI 2020-06-05 18:07:00 53.24 kg/m2 [facility] Body temperature 2020-05-31 20:10:00 36 Zainab [facility] Body weight 2020-05-31 20:10:[address] [facility] BMI 2020-05-31 20:10:00 53.66 kg/m2 [facility] Systolic blood 2020-04-06 18:35:00 138 mm[Hg] [facility] Diastolic blood 2020-04-06 18:35:00 83 mm[Hg] [facility] Heart rate 2020-04-06 18:35:00 65 /min [facility] Respiratory rate 2020-04-06 18:35:00 18 /min Univ ersity of [facility] Body height 2020-04-06 18:35:00 154.9 cm [facility] Body weight 2020-04-06 18:35:00 122.018 kg [facility] BMI 2020-04-06 18:35:00 50.83 kg/m2 [facility] Systolic blood 2020-03-16 19:12:00 120 mm[Hg] [facility] Diastolic blood 2020-03-16 19:12:00 80 mm[Hg] [facility] Body height 2020-03-16 19:12:00 154.9 cm [facility] Body weight 2020-03-16 19:12:00 122.018 kg [facility] BMI 2020-03-16 19:12:00 50.83 kg/m2 [facility] Body height 2019-12-23 16:00:00 154.9 cm [facility] Body weight 2019-12-23 16:00:00 122.018 kg [facility] BMI 2019-12-23 16:00:00 50.83 kg/m2 Universi [facility] Procedures Procedure Date / Time Performing Clinician Source Performed POCT TEST 2022-07-17 16:33:00 Nannette Juan [facility] POCT URINALYSIS 2022-07-17 16:15:00 Nannette Juan [facility] XR KNEE 3 VW LEFT 2022-03-19 14:44:16 Lottie Garvin [facility] POCT TEST 2022-03-19 14:34:00 Lottie Garvin [facility] COMP. METABOLIC PANEL 2022-03-19 14:27:00 Lottie Garvin [facility] ([id number]) [facility] CBC WITH DIFF 2022-03-19 14:27:00 Lottie Garvin [place] o [facility] PROTHROMBIN TIME / INR 2022-03-19 14:27:00 Lottie Garvin [facility] ACTIVATED PARTIAL 2022-03-19 14:27:00 Lottie Garvin [facility] THRMPLAS REMEDIOS [facility] URINALYSIS 2022-03-19 14:27:00 Lottie Garvin [place] o f [facility] CONSENT/REFUSAL FOR 2022-03-19 13:50:09 Doctor Unassigned, No [facility] Medical Branch CONSENT/REFUSAL FOR 2021-10-01 18:15:24 [facility]ass[facility], [facility] Medical [place] INTUBATION 2020-08-04 19:57:02 Luzma Almanza [facility] ASSIGNMENT OF BENEFITS 2020-08-04 16:10:14 Doctor Unassigned, No [facility] DISCLOSURE AND CONSENT, 2020-07-05 05:01:00 Doctor Unassigned, N o [facility] MEDICAL AND SURGICAL [facility] Medical [facility] nc PROCEDURES HIV 1/2 AG-AB WITH 2020-06-05 19:04:00 Casie Ortega [facility] REFLEX [facility] GALV ONLY - SYPHILIS 2020-06-05 19:04:00 Casie Ortega [facility] IGG/IGM Medical [place] XR WRIST 3+ VW LEFT 2020-05-31 19:46:46 [facility] WO 2020-03-31 20:18:12 Kami Bernard [facility] CONTRAST [facility] Branch REFERRAL- 2020-03-23 05:01:00 Doctor Unassigned, No [facility] REQUEST/RESPONSE [facility] SEDIMENTATION RATE 2019-12-23 17:06:00 Kami Bernard [facility] CBC WITH DIFFERENTIAL 2019-12-23 17:06:00 Kami Bernard [facility] ASSIGNMENT OF BENEFITS 2019-12-23 15:57:07 Doctor Unassigned, No [facility] DME/SUPPLY JUSTIFICATION 2019-05-27 05:01:00 Doctor Unassigned, No [facility] Encounters Start End Encounter Admission Attending Care Care Encounter Source Date/Time Date/Time Type Type Clinicians Facility Department ID 2021-08-24 Outpatient ISABELL [facility] [id number] Univers 19:16:32 [facility] 2022-07-20 2022-07-20 Telephone [place] [facility] [id number] Univers 00:00:00 00:00:00 Bello [facility] 350.1.13.10 it y of [place] 4.2.7.2.686 Willem as ALEK?BLEA [id number] [address] MEDICAL OFFICE [facility] 2022-07-17 2022-07-17 Outpatient R DRAKE [facility] [id number] Univers 11:15:00 11:29:07 NANNETTE [facility] 2022-07-17 2022-07-17 [facility] 1.2.840.114 [id number] Univers 11:15:00 11:29:07 Care [place] [id number] it y of SPEED 4.2.7.2.686 [place] as ALEK?BLEA [id number] [address] OFFICE [facility] 2022-06-12 2022-06-12 Outpatient R TONNY [facility] [id number] Univers 19:20:00 19:47:11 [facility] 2022-06-12 2022-06-12 Urgent Torey Cesar [facility] .2.840.114 [id number] Univers 19:20:00 19:47:11 Care Niall, [facility] 350.1.13.10 ity of SPEED 4.2.7.2.686 [place] as ALEK?BLEA [id number] [address] MEDICAL OFFICE [facility] 2022-04-14 2022-04-14 Outpatient R STEVE [facility] [id number] Univers 12:40:00 13:52:43 REGLA andersen [facility] 2022-04-14 2022-04-14 Urgent Regla Baez [facility] 1.2.840 .114 [id number] Univers 12:40:00 13:52:43 Vincent Kurtz [facility] 350.1.13.10 ity of [place] 4.2.7.2.686 [place] as ALEK?BLEA [id number] [address] MEDICAL OFFICE [facility] 2022-04-03 2022-04-03 Urgent [place] [facility] 1.2.840.114 [id number] Univers 14:20:00 14:20:00 Care [facility] 350.1.13.10 it y of SPE[place] 4.2.7.2.686 [place] as ALEK?BLEA [id number] [address] OFFICE [facility] 2022-04-03 2022-04-03 Outpatient R HOUSTON [facility] [id number] Univers 14:20:00 14:03:55 BELLO [facility] 2022-03-19 2022-03-19 Emergency X BHARATHI [facility] ERT [id number] Univers 09:01:00 11:10:00 LOTTIE [facility] 2022-03-19 2022-03-19 Emergency Bharathi [facility] 1.2.419.818 [id number] Univers 09:01:00 11:10:00 [facility] [place] 350.1.13.10 i ty [place] [id number] [facility] 084 [place] 2022-03-19 2022-03-19 Orders Doctor LEMA 1.2.840.114 [id number] Univers 00:00:00 00:00:00 Only Unassigned, LUZ 350.1.13.10 ity of [place] [facility] 4.2.7.2.686 Willem as [id number] [facility] 009 [place] 2021-10-01 2021-10-01 Outpatient Oli JUAN [facility] [id number] Univers 15:00:00 13:13:59 NANNETTE [facility] 2021-10-01 2021-10-01 [facility] 1.2.840.114 [id number] Univers 12:15:40 13:13:59 Care [facility] 350.1.13.10 it y of [place] 4.2.7.2.686 [place] as ALEK?BLEA [id number] [address] OFFICE [facility] 2021-10-01 2021-10-01 Orders Doctor TOREY 1.2.840.114 [id number] Univers 00:00:00 00:00:00 Only Unassigned, LUZ 350.1.13.10 ity of [place] [facility] 4.2.7.2.686 Willem as [id number] [facility] 009 Branch 2021-01-15 2021-01-15 Patient Naren [facility] 1.2.840.114 [id number] Univers 00:00:00 00:00:00 Outreach Harjit PRIMARY 350.1.13.10 i ty of Home CARE [place] [id number] [place] dical [address] [place] [address] 2021-01-15 2021-01-15 Patient Naren [facility] 1.2.840.114 [id number] 00:00:00 00:00:00 Outreach Harjit PRIMARY 350.1.13.10 Home CARE 4.2.7.2.686 PAVILLION [id number] [facility] 2020-08-23 2020-08-23 Outpatient R [facility] [id number] Univers 14:00:00 14:00:00 TOREY ity of [facility] 2020-08-09 2020-08-09 Telephone [facility] 1.2.840.114 [id number] Univers 00:00:00 00:00:00 [place] SPECIALTY 350.1.13.10 ity of C[place].2.[place] CENTER AT [phone] Nc dicva [address] 2020-08-09 2020-08-09 Telephone [facility] 1.2.840.114 [id number] 00:00:00 00:00:00 [place] SPECIALTY 350.1.13.10 CARE 4.2.7.2.686 CENTER AT [id number] [place] [address] [place] [address] 2020-08-04 2020-08-04 [facility] 1.2.840.114 [id number] Univers 11:12:00 17:25:00 Encounter [place] [facility] 350.1.13.10 ity of [place]2.686 [place] [facility] [id number] [address] ([facility]) 2020-08-04 2020-08-04 Hospital Isabell [facility] 1.2.840.114 [id number] 11:12:00 17:25:00 Encounter Torey Bryan 350.1.13.10 Lecharity 4.2.7.2.686 [facility] [id number] [address]) 2020-08-04 2020-08-04 Anesthesia Ashley Alas [facility] 1.2.840 .114 [id number] Univers 14:32:00 15:44:00 Mirza [place] SPECIALTY 350.1.13.1 0 ity of [facility] 4.2.7.2.686 [facility] CENTER AT [phone] Nc dical [address] 2020-08-04 2020-08-04 Anesthesia Ashley Alas [facility] 1.2.840 .114 [id number] 14:32:00 15:44:00 Mirza [place] SPECIALTY 350.1.13.1 0 CARE 4.2.7.2.686 CENTER AT [id number] BR[place] Antonio [facility] 2020-08-04 2020-08-04 Orders Doctor LEMA 1.2.840.114 [id number] Univers 00:00:00 00:00:00 Only Unassigned, LUZ 350.1.13.10 ity of [place] [facility] 4.2.7.2.686 Willem [id number] [address] 2020-08-04 2020-08-04 Orders Doctor LEMA 1.2.840.114 [id number] 00:00:00 00:00:00 Only Unassigned, LUZ 350.1.13.10 [place] [facility] 4.2.7.2.686 [id number] 009 2020-08-03 2020-08-03 Outpatient R [facility] [id number] Univers 15:30:00 15:30:00 ity of [facility] 2020-08-03 2020-08-03 Laboratory Only, Adc Test [facility] 1.2.840. 114 [id number] Univers 14:49:11 15:04:01 Only Torey Whyte 350.1.13.10 ity of [place] 4.2.7.2.686 [facility] [id number] [address] 2020-08-03 2020-08-03 Laboratory Only, Adc [facility] 1.2.840.114 [id number] 14:49:11 15:04:01 Only Test [place] 350.1.13.10 [place] 4.2.7.2.686 [place] [id number] [facility] 2020-08-02 2020-08-02 Telephone [facility] 1.2.840.114 [id number] Univers 00:00:00 00:00:00 [place] SPECIALTY 350.1.13.10 ity of C[place].2.[place] CENTER AT [id number] Nc barbara HUERTA [address] [place] [address] 2020-08-02 2020-08-02 Telephone [facility] 1.2.840.114 [id number] Univers 00:00:00 00:00:00 [place] SPECIALTY 350.1.13.10 ity of CARE 4.2.7.2.686 [place] CENTER AT [id number] Nc barbara HUERTA [address] [place] [address] 2020-07-19 2020-07-19 Telephone [facility] 1.2.840.114 [id number] Univers 00:00:00 00:00:00 [place] SPECIALTY 350.1.13.10 ity of CARE 4.2.7.2.686 [place] CENTER AT [id number] Nc floryhossein HOSKINSJulio C 198 [facility] 2020-07-05 2020-07-05 Telemedici [facility] 1.2.840.114 [id number] Univers 11:28:58 11:38:58 ne Visit [place] SPECIALTY 350.1.13.10 ity of C[place] 4.2.7.2.686 [place] CENTER AT [id number] Nc barbara HUERTA [address] [place] [address] 2020-07-05 2020-07-05 Outpatient R [facility] [id number] Univers 11:10:00 11:10:00 TOREY ity of [facility] 2020-07-05 2020-07-05 Orders Doctor TOREY 1.2.840.114 [id number] Univers 00:00:00 00:00:00 Only Unassigned, LUZ 350.1.13.10 ity of [place] [facility] 4.2.7.2.686 Willem as [phone] [address] 2020-06-21 2020-06-21 Outpatient R FARIDA [facility] [id number] Univers 13:30:00 13:30:00 RUEL [facility] 2020-06-19 2020-06-19 [employer], Ang-Rmchp [facility] 1.2.840. 114 [id number] Univers 16:19:58 16:20:05 Visit Casie Ortega R DIRECTOR [employer] 350.1.13.10 ity of [facility] 4.2.7.2.686 Willem as MATERNAL [id number] Med ical & CHILD [address] [place] [address] 2020-06-19 2020-06-19 Outpatient R ISABELL [facility] [id number] Univers 15:40:00 15:40:00 [facility]Y [facility] 2020-06-19 2020-06-19 [facility] [id number] Univers 15:15:00 15:15:00 CASIE ity o f [facility] 2020-06-19 2020-06-19 Telephone [facility] 1.2.840.114 [id number] Univers 00:00:00 00:00:00 Torey [facility] 350.1.13.10 it y of C[place] 4[place]2.[place].2.686 [place] KAREY [id number] [address] 2020-06-12 2020-06-12 Telephone [facility] 1.2.828.439 [id number] Univers 00:00:00 00:00:00 Casie Baird [employer]OR [employer] 350.1.13.10 ity of [facility] 4.2.7.2.686 Willem as MATERNAL [phone] Med ical & CHILD [address] [place] [address] 2020-06-06 2020-06-06 Telephone [facility] 1.2.968.187 [id number] Univers 00:00:00 00:00:00 Casie R DIRECTOR [employer] 350.1.13.10 ity of [facility] 4.2.7.2.686 [place]m as MATERNAL [id number] Med ical & CHILD [address] [place] [address] 2020-06-05 2020-06-05 Office [facility] 1.2.840.114 [id number] Univers 12:48:43 14:03:05 Visit Casie Baird [employer]OR [employer] 350.1.13.10 ity of REGIONAL 4.2.7.2.686 [place] as MATERNAL [id number] Med ical & CHILD 107 [facility] 2020-06-05 2020-06-05 Outpatient [facility] [id number] Univers 12:45:00 12:45:00 ACECYNDIE ity o f [facility] 2020-05-31 2020-05-31 [facility] 1.2.840.114 [id number] Univers 14:36:23 23:59:00 Encounter [place] SPECIALTY 350.1.13.10 ity of C[place]2.7.2.[place] CENTER AT [id number] Nc barbara HUERTA 809 [facility] 2020-05-31 2020-05-31 Office [facility] 1.2.806.871 [id number] Univers 14:17:05 15:56:27 Visit [place]y SPECIALTY 350.1.13.10 ity of C[place] 4.2.7.2.686 [place] CENTER AT [phone] Nc barbara HUERTA 198 [facility] 2020-05-31 2020-05-31 Out[facility] [id number] Univers 14:30:00 14:30:00 TOREY [facility] 2020-04-12 2020-04-12 Outpatient R [facility] [id number] Univers 13:00:00 13:00:00 TOREY [facility] 2020-04-12 2020-04-12 Patient Doctor [facility] 1.2.840.114 [id number] Univers 00:00:00 00:00:00 Secure Msg Unassigned, DIRECTOR [employer] 350.1.13.10 ity of [place] REGIONAL 4.2.7.2.686 Willem as MATERNAL [id number] Med ical & CHILD 107 [facility] 2020-04-06 2020-04-06 Outpatient R MARCO ANTONIO [facility] [id number] Univers 15:30:00 15:30:00 [facility] 2020-04-06 2020-04-06 Office Marco [facility] 1.2.240.408 [id number] Univers 13:33:51 14:02:35 Visit Kami Bryan 350.1.13.10 it y of Surgical 4.2.7.2.686 [place] as Specialti [id number] Nc dical es 198 [facility] 2020-03-31 2020-03-31 Outpatient [facility] [id number] Univers 14:26:45 23:59:00 KAMI itjulio [facility] 2020-03-31 2020-03-31 Hospital [facility] 1.2.840.114 [id number] Univers 14:00:00 23:59:00 Encounter Kami Quinones [facility]ALTH 350.1.13.10 ity of CLINICS [place].2.[place].2.[place] [id number] [facility] 804 [place] 2020-03-23 2020-03-23 Orders Doctor TOREY 1.2.840.114 [id number] Univers 00:00:00 00:00:00 Only Unassigned, LUZ 350.1.13.10 ity of [place] [facility]ITAL 4.2.7.2.686 Willem as [id number] [facility] 009 [place] 2020-03-22 2020-03-22 Telephone [facility] 1.2.840.114 [id number] Univers 00:00:00 00:00:00 Kami Ramos [facility] 350.1.13.10 it y of Surgical 4.2.7.2.686 [place] as Specialti [id number] Nc dical es 198 [facility] 2020-03-16 2020-03-16 Office Marco [facility]AD[facility] 1.2.630.335 [id number] Univers 14:10:26 14:24:02 Visit Kami [facility] 350.1.13.10 it y of Surgical 4.2.7.2.686 [place] as Specialti [id number] Nc dical es 198 [facility] 2020-03-16 2020-03-16 Outpatient [facility] [id number] Univers 14:15:00 14:15:00 [facility] 2020-03-16 2020-03-16 Outpatient R MARCO ANTONIO [facility] [id number] Univers 13:15:00 13:15:00 [facility] 2020-01-11 2020-01-11 Outpatient R MIGUEL [facility] [id number] Univers 13:45:00 13:45:00 JOHN [facility] 2020-01-06 2020-01-06 Outpatient [facility] [id number] Univers 14:45:00 14:45:00 JOHN julio c [facility] 2019-12-30 2019-12-30 Outpatient [facility] [id number] Univers 10:15:00 10:15:00 KAMI julio [facility] 2019-12-30 2019-12-30 Patient Miguel [facility] 1.2.840.114 [id number] Univers 00:00:00 00:00:00 Secure Ms [facility] 350.1.13.10 ity of Surgical 4.2.7.2.686 [place] as Specialti [phone] Nc dical es 198 [facility] 2019-12-23 2019-12-23 Repairer [employer] Kelsey, Adc Lab Main [facility] 1.2.8 40.114 [id number] Univers 10:51:53 11:06:53 Visit Marco AntonioMartínjulio cesar Limaton 350.1.13.10 ity of [place].2.7.2.686 [place] Professio [id number] Nc dical nal 353 [facility] 2019-12-23 2019-12-23 Office Marco Antonio [facility] [id number] [id number] Univers 09:56:57 10:15:25 Visit Kami [facility] 350.1.13.10 it y of Surgical 4.2.7.2.686 [place] as Specialti [id number] Nc dical es 198 [facility] 2019-12-23 2019-12-23 Outpatient R MARCO ANTONIO [facility] [id number] Univers 10:15:00 10:15:00 [facility] 2019-12-23 2019-12-23 Orders Doctor LEMA 1.2.840.114 [id number] Univers 00:00:00 00:00:00 Only Unassigned, LUZ 350.1.13.10 ity of [place] [facility]OSPITAL 4.2.7.2.686 Willem as [phone] [facility] [address] [place] 2019-05-27 2019-05-27 Orders Doctor TOREY 1.2.840.114 [id number] Univers 00:00:00 00:00:00 Only Unassigned, LUZ 350.1.13.10 ity of [place] HOSPITAL 4.2.7.2.686 Willem as [id number] [facility] 009 [place] 2019-05-27 2019-05-27 Telephone Leigh [facility] 1.2.474.096 [id number] Univers 00:00:00 00:00:00 Haja Cosby 350.1.13.10 i ty of [place] 4.2.7.2.[place] Profess[place] [phone] Me dical nal 5 [facility] 2014-05-30 2014-05-30 Patient Doctor TOREY 1.2.840.114 [id number] Univers 00:00:00 00:00:00 Secure Msg Unassigned, LUZ 350.1.13.10 ity of [place] [facility]OSPITAL 4.2.7.2.686 Willem as [phone] [facility] 044 [place] Results Test Description Test Time Test Comments Results Result Comments Source POCT TEST 2022-07-17 16:44:00 Test Item Value Reference Range Interpretation Comme nts POCT PREG (test code = 1605) Negative On board controls acceptable with C Line Yes (test code = 3574) POCT PREG LOT # (test code = 3575) [id number] POCT PREG TEST DATE (test code = 3576) FIONA (test code = FIONA) accurate development and interpretation of all internal controls Lab Interpretation (test code = 69241-0) Normal [facility]CIFIC [id number] 16:16:00 Test Item Value Reference Range Interpretation Comments POCT U SP GRAV (test code = 1.025 mg/dl 1.005-1.025 3255) POCT PH U (test code = 3254) 5 mg/dl 5-8 POCT U LEUK EST (test code = negative Negative - Negative 3263) POCT U NIT (test code = 3262) negative Negative - Negative POCT U PROT (test code = trace Negative - Negative 3259) POCT U GLU (test code = 3256) negative Negative - Negative POCT U KETONE (test code = negative Negative - Negative 3258) POCT U UROBILI (test code = normal 0.2-1 3260) POCT U BILI (test code = negative Negative - Negative 3261) POCT U BLD (test code = 3257) negative Negative - Negative POCT U COLOR (test code = dark yellow 3266) POCT U APPEAR (test code = clear 3267) Lab Interpretation (test code Normal = 85568-7) [facility] WITH [id number] 15:36:23 Test Item Value Reference Range Interpretation Comments WBC (test code = See_Comment H [Automated 3335-2) message] The sy stem which generated this result transmitted reference range : 4.30 - 11.10 10*3/?L. The reference range was not used to interpret this result as normal/abnormal . RBC (test code = See_Comment [Automated 199-8) message] The sy stem which generated this result transmitted reference range : 3.93 - 5.25 10*6/?L. The reference range was not used to interpret this result as normal/abnormal . HGB (test code = 14.2 g/dL 11.6-15.0 718-7) HCT (test code = 42.3 % 35.7-45.2 4544-3) MCV (test code = 85.8 fL 80.6-95.5 787-2) MCH (test code = 28.8 pg 25.9-32.8 785-6) MCHC (test code = 33.6 g/dL 31.6-35.1 786-4) RDW-SD (test code = 43.0 fL 39.0-49.9 72655-5) RDW-CV (test code = 13.8 % 12.0-15.5 788-0) PLT (test code = See_Comment [Automated 777-3) message] The sy stem which generated this result transmitted reference range : 166 - 358 10*3/ ?L. The reference r mariella was not used to interpret this result as normal/abnormal . MPV (test code = 10.8 fL 9.5-12.9 25119-1) NRBC/100 WBC (test See_Comment [Automat ed code = 2969017718) message] The system which generated this result transmitted reference range : 0.0 - 10.0 /100 WBCs. The refer ence range was not u sed to interpret th is result as normal/abnormal . NRBC x10^3 (test code <0.01 See_Comment [Auto mated = 6060648502) message] The s ystem which generated this result transmitted reference range : 10*3/?L. The reference range was not used to interpret this result as normal/abnormal . GRAN MAT (NEUT) % 59.6 % (test code = 770-8) IMM GRAN % (test code 0.40 % = 8726244957) LYMPH % (test code = 29.0 % 736-9) MONO % (test code = 7.7 % 5905-5) EOS % (test code = 2.9 % 713-8) BASO % (test code = 0.4 % 706-2) GRAN MAT x10^3(ANC) 8.31 10*3/uL 1.88-7.09 H (test code = 7190382473) IMM GRAN x10^3 (test 0.06 10*3/uL 0.00-0.06 code = 6955139930) LYMPH x10^3 (test code 4.05 10*3/uL 1.32-3.29 H = 731-0) MONO x10^3 (test code 1.07 10*3/uL 0.33-0.92 H = 742-7) EOS x10^3 (test code = 0.41 10*3/uL 0.03-0.39 H 711-2) BASO x10^3 (test code 0.05 10*3/uL 0.01-0.07 = 704-7) REACT LYMPHS (test Rare code = 6413019259) Lab Interpretation Abnormal (test code = 67757-4) [facility] [id number] 15:06:58 Test Item Value Reference Range Interpretation Comments APTT Patient (test See_Comment [Automat ed code = 3173-2) message] The system which generated this result transmitted reference range : 23 - 38 Seconds . The reference range was not used to interpr et this result as normal/abnormal . FIONA (test code = FIONA) The [facility] patient population mean normal value for aPTT is 30 seconds. Lab Interpretation Normal (test code = 17085-2) [facility] CenterPROTHR[facility] / [id number] 15:04:57 Test Item Value Reference Range Interpretation Comments PROTIME PATIENT (test See_Comment [Auto mated message] code = 5964-2) The system wh ich generated this result transmitted ref erence range: 12.0 - 1 4.7 Seconds. The re ference range was not u sed to interpret this result as normal/abnor mal. INR (test code = 6301-6) Nor mal INR <1.1; Warfarin Therap eutic range 2.0 to 3. 0 or 2.5 to 3.5, dep ending upon the indica tions. Lab Interpretation (test Normal code = 70127-3) [facility]OLIC PANEL ([id number])2022-03-19 14:58:33 Test Item Value Reference Range Interpretation Comments NA (test code = 141 mmol/L 135-145 5066987239) K (test code = 4.3 mmol/L 3.5-5.0 4140477222) CL (test code = 107 mmol/L 98-108 3655912354) CO2 TOTAL (test code = 24 mmol/L 23-31 8481198184) AGAP (test code = 2-16 6393114353) BUN (test code = 11 mg/dL 7-23 1981423550) GLUCOSE (test code = 116 mg/dL 70-110 H 7088353522) CREATININE (test code = 0.71 mg/dL 0.50-1.04 9538322035) TOTAL BILI (test code = 0.5 mg/dL 0.1-1.7 2617709144) CALCIUM (test code = 9.3 mg/dL 8.6-10.6 0982953116) T PROTEIN (test code = 7.0 g/dL 6.3-8.2 4896135379) ALBUMIN (test code = 4.3 g/dL 3.5-5.0 9638174816) ALK PHOS (test code = 63 U/L 34-122 8414919016) ALTv (test code = 48 U/L 5-35 H 1742-6) AST(SGOT) (test code = 33 U/L 13-40 1899069632) eGFR (test code = mL/min/1.73m2 2539261356) FIONA (test code = FIONA) Association of Glomerular Filtration Rate (GFR) and Staging of Kidney Disease* + --+ --+ ------+| GFR (mL/min/1.73 m2) ?| With Kidney Damage ?| ?Without Kidney Damage+ --------+ --------+ +| ?>90 ?| ?Stage one ?| ? Normal ?+ ---+ ---+ -------+| ?60-89 ?| ?Stage two ?| ? Decreased GFR ? + --+ --+ ------+| ?30-59 ?| ?Stage three ?| ? Stage three ? + --+ --+ ------+| ?15-29 ?| ?Stage four ? | ? Stage four ?+ ---+ ---+ -------+| ?<15 (or dialysis) ? ?| ?Stage five ? | ? Stage five ?+ ---+ ---+ -------+ *Each stage assumes the associated GFR level has been in effect for at least three months. ?Stages 1 to 5, with or without kidney disease, indicate chronic kidney disease. Notes: Determination of stages one and two (with eGFR >59mL/min/1.73 m2) requires estimation of kidney damage for at least three months as defined by structural or functional abnormalities of the kidney, manifested by either:Pathological abnormalities or Markers of kidney damage (including abnormalities in the composition of the blood or urine or abnormalities in imaging tests). Lab Interpretation Abnormal (test code = 31598-2) [facility] CenterPO[facility] [id number] 14:34:00 Test Item Value Reference Range Interpretation Comments POCT PREG (test code = 1605) negative On board controls acceptable with present C Line (test code = 3574) POCT PREG LOT # (test code = 3575) [id number] POCT PREG TEST DATE (test 07-26-2023 code = 3576) Lab Interpretation (test code = Normal 23100-1) [facility] CenterIntubation2020-10-09 19:57:02HoLuzma Fairchild CRNA ? ? 08/04/2020 ?2:57 PMIntubationDate/Time: 08/04/2020 2:39 PMUrgency: elective Airway not difficult General Information and Staff Patient location during procedure: ORResident/RED LEAD BURNER: Luzma Almanza CRNAPerformed: resident/RED LEAD BURNER Indications and Patient ConditionIndications for airway management: anesthesiaSpontaneous Ventilation: absentSedation level: deepPreoxygenated: yesPatient position: sniffingMILS maintained throughoutMask difficulty assessment: 1 - vent by mask Final Airway DetailsFinal airway type: supraglottic airway Successful airway: Supraglottic airway: igel.Size 4Airway Seal Pressure (cm H2O): 25 Number of attempts at approach: 1Ventilation between attempts: noneNumber of other approaches attempted: 0 Additional CommentsAtraumatic placement of LMA, + ETCO2 and BBS, teeth and lips per preop assessmentUnGraham Regional Medical CenterGALV ONLY - SYPHILIS IGG/IGM 2020-06-06 13:57:00 Test Item Value Reference Range Interpretation Comments Syphilis IgG/IgM (test Non-reactive Non-reactive code = 82088-0) FIONA (test code = FIONA) Non-reactive - No serologic evidence of T. pallidum infection. Cannot exclude incubating or early syphilis. Submit a second specimen in 2-4 weeks if syphilis is clinically suspected. Equivocal - Further testing to follow. Reactive - Further testing to follow. Lab Interpretation (test Normal code = 33524-7) [facility] CenterHIV 1/2 AG-AB WITH [id number] 05:48:00 Test Item Value Reference Range Interpretation Comments HIV Negative Negative Semi-quantitative (test code = 43509-7) FIONA (test code = Non-reactive for HIV-1 FIONA) antigen and HIV-1/HIV-2 antibodies. ?No laboratory evidence of HIV infection. ?Repeat in 2-4 weeks if acute HIV infection is suspected. [facility] CenterXR WRIST 3+ VW [id number] 20:09:52 Osteonecrosis of the lunate. Nonspecific swelling over the medial forearm.EXAM: XR WRIST 3+ VW LEFTHISTORY: left wrist pain COMPARISON: None FINDINGS: Imaging of the wrist demonstrates subcutaneous fat stranding over themedial forearm. Sclerotic and cystic changes are noted within the lunatewhich appears slightly flattened. Degenerative cystic change is seen withinthe distal pole of the scaphoid. [facility], Radiant Results Inft User - 05/31/2020 3:11 PM CDTEXAM:XR WRIST 3+ VW LEFTHISTORY:left wrist pain COMPARISON:NoneFINDINGS: Imaging of the wrist demonstrates subcutaneous fat stranding over themedial forearm. Sclerotic and cystic changes are noted within the lunatewhich appears slightly flattened. D egenerative cystic change is seen withinthe distal pole of the scaphoid.IMPRESSIONOsteonecrosis of the lunate.Nonspecific swelling over the medial forearm.[facility] [id number] 17:35:00 Test Item Value Reference Range Interpretation Comments ESR (test code = See_Comment [Automated message] 3106044211) The system [employer] generated this result transmitted ref erence range: 0 - 20 m m/HR. The reference r mariella was not used to interpret this result as normal/abnor mal. Lab Interpretation (test Normal code = 55650-5) [facility] [id number] 17:35:00 Test Item Value Reference Range Interpretation Comments ESR (test code = See_Comment [Automated message] 1479252491) The system [employer] generated this result transmitted ref erence range: 0 - 20 m m/HR. The reference r mariella was not used to interpret this result as normal/abnor mal. Lab Interpretation (test Normal code = 83170-2) [facility] WITH [id number] 17:10:00 Test Item Value Reference Range Interpretation Comments WBC (test code = See_Comment [Automated 6690-2) message] The sy stem which generated this result transmitted reference range : 4.30 - 11.10 10*3/?L. The reference range was not used to interpret this result as normal/abnormal . RBC (test code = See_Comment [Automated 789-8) message] The sy stem which generated this result transmitted reference range : 3.93 - 5.25 10*6/?L. The reference range was not used to interpret this result as normal/abnormal . HGB (test code = 12.5 g/dL 11.6-15 718-7) HCT (test code = 39.7 % 35.7-45.2 4544-3) MCV (test code = 83.1 fL 80.6-95.5 787-2) MCH (test code = 26.2 pg 25.9-32.8 785-6) MCHC (test code = 31.5 g/dL 31.6-35.1 L 786-4) RDW-SD (test code = 45.0 fL 39-49.9 52899-8) RDW-CV (test code = 14.9 % 12-15.5 788-0) PLT (test code = See_Comment [Automated 777-3) message] The sy stem which generated this result transmitted reference range : 166 - 358 10*3/ ?L. The reference r mariella was not used to interpret this result as normal/abnormal . MPV (test code = 10.0 fL 9.5-12.9 36380-0) NRBC/100 WBC (test See_Comment [Automat ed code = 5190743544) message] The system which generated this result transmitted reference range : 0.0 - 10.0 /100 WBCs. The refer ence range was not u sed to interpret th is result as normal/abnormal . NRBC x10^3 (test code <0.01 See_Comment [Auto mated = 9791565504) message] The s ystem which generated this result transmitted reference range : 10*3/?L. The reference range was not used to interpret this result as normal/abnormal . GRAN MAT (NEUT) % 60.7 % (test code = 770-8) IMM GRAN % (test code 0.50 % = 0286029210) LYMPH % (test code = 28.4 % 736-9) MONO % (test code = 7.5 % 5905-5) EOS % (test code = 2.5 % 713-8) BASO % (test code = 0.4 % 706-2) GRAN MAT x10^3(ANC) 5.91 10*3/uL 1.88-7.09 (test code = 6892271420) IMM GRAN x10^3 (test 0.05 10*3/uL 0-0.06 code = 5591882221) LYMPH x10^3 (test code 2.76 10*3/uL 1.32-3.29 = 731-0) MONO x10^3 (test code 0.73 10*3/uL 0.33-0.92 = 742-7) EOS x10^3 (test code = 0.24 10*3/uL 0.03-0.39 711-2) BASO x10^3 (test code 0.04 10*3/uL 0.01-0.07 = 704-7) Lab Interpretation Abnormal (test code = 84214-3) [facility] WITH [id number] 17:10:00 Test Item Value Reference Range Interpretation Comments WBC (test code = See_Comment [Automated 6690-2) message] The sy stem which generated this result transmitted reference range : 4.30 - 11.10 10*3/?L. The reference range was not used to interpret this result as normal/abnormal . RBC (test code = See_Comment [Automated 789-8) message] The sy stem which generated this result transmitted reference range : 3.93 - 5.25 10*6/?L. The reference range was not used to interpret this result as normal/abnormal . HGB (test code = 12.5 g/dL 11.6-15 718-7) HCT (test code = 39.7 % 35.7-45.2 4544-3) MCV (test code = 83.1 fL 80.6-95.5 787-2) MCH (test code = 26.2 pg 25.9-32.8 785-6) MCHC (test code = 31.5 g/dL 31.6-35.1 L 786-4) RDW-SD (test code = 45.0 fL 39-49.9 47102-5) RDW-CV (test code = 14.9 % 12-15.5 788-0) PLT (test code = See_Comment [Automated 777-3) message] The sy stem which generated this result transmitted reference range : 166 - 358 10*3/ ?L. The reference r mariella was not used to interpret this result as normal/abnormal . MPV (test code = 10.0 fL 9.5-12.9 36377-8) NRBC/100 WBC (test See_Comment [Automat ed code = 9232101691) message] The system which generated this result transmitted reference range : 0.0 - 10.0 /100 WBCs. The refer ence range was not u sed to interpret th is result as normal/abnormal . NRBC x10^3 (test code <0.01 See_Comment [Auto mated = 6807072569) message] The s ystem which generated this result transmitted reference range : 10*3/?L. The reference range was not used to interpret this result as normal/abnormal . GRAN MAT (NEUT) % 60.7 % (test code = 770-8) IMM GRAN % (test code 0.50 % = 0236100157) LYMPH % (test code = 28.4 % 736-9) MONO % (test code = 7.5 % 5905-5) EOS % (test code = 2.5 % 713-8) BASO % (test code = 0.4 % 706-2) GRAN MAT x10^3(ANC) 5.91 10*3/uL 1.88-7.09 (test code = 6778715947) IMM GRAN x10^3 (test 0.05 10*3/uL 0-0.06 code = 8276793914) LYMPH x10^3 (test code 2.76 10*3/uL 1.32-3.29 = 731-0) MONO x10^3 (test code 0.73 10*3/uL 0.33-0.92 = 742-7) EOS x10^3 (test code = 0.24 10*3/uL 0.03-0.39 711-2) BASO x10^3 (test code 0.04 10*3/uL 0.01-0.07 = 704-7) Lab Interpretation Abnormal (test code = 15198-2) [facility]"
[2022-08-25] MEDS ORDERED: TETANUS & DIPHTHERIA TOX,ADULT 0.5 ML VIAL ONE (08:42)
--- NOTE | 2022-08-25 10:16 | RAD REPORT ---
EXAM DESCRIPTION: Nick Single View08/25/2022 9:09 am CLINICAL HISTORY: Cough COMPARISON: 2018 FINDINGS: The lungs appear clear of acute infiltrate. The heart is normal size IMPRESSION: No acute abnormalities displayed
--- NOTE | 2022-08-25 10:17 | RAD REPORT ---
EXAM DESCRIPTION: RAD - Forearm Right - 08/25/2022 9:09 am CLINICAL HISTORY: Right arm pain status post fall FINDINGS: No fracture is seen.
--- NOTE | 2022-08-25 10:19 | RAD REPORT ---
EXAM DESCRIPTION: RAD - Knee Left 3 View - 08/25/2022 9:09 am CLINICAL HISTORY: Left knee pain FINDINGS: A bony density adjacent to the superolateral patella probably bipartite. No fracture or dislocation is seen. If patient continues have symptoms to suggest an occult fracture, ligamentous or meniscal injury then MRI would be recommended
[2022-08-25] MEDS ORDERED: KETOROLAC 30 MG/ML INJ ONE (10:31)
--- NOTE | 2022-08-25 10:31 | ER ---
Nurse's Notes [facility] Name: Priscilla Solo Age: 37 yrs Sex: Female : 1985 Arrival Date: 08/25/2022 Time: 08:15 Bed 13 Private MD: Diagnosis: Cough;Pain in left knee;Pain in right wrist Presentation: 08/25 08:27 Chief complaint: Patient states: 1. Cough/congestion for 2 weeks. No fever. 2. Slipped ll1 in mud last night around 3 am. L knee pain with abrasions and R wrist pain since. Gait steady. Coronavirus screen: Vaccine status: Patient reports being unvaccinated. Client denies travel out of the [place] in the last 14 days. congestion, cough unrelated to allergies, headache, Client presents with at least one sign or symptom that may indicate coronavirus-19. Standard/surgical mask placed on the client. Ebola Screen: Patient denies travel to an Ebola-affected area in the 21 days before illness onset. Initial Sepsis Screen: Does the patient meet any 2 criteria? No. Patient's initial sepsis screen is negative. Does the patient have a suspected source of infection? Yes: Skin breakdown/wound. Risk Assessment: Do you want to hurt yourself or someone else? Patient reports no desire to harm self or others. Onset of symptoms was August 11, 2022. 08:27 Method Of Arrival: Ambulatory [facility] 08:27 Acuity: ERIC 3 [facility] 08:31 Care prior to arrival: None. Mechanism of Injury: Fall. Trauma event details: Injury ll1 occurred in the [facility]. Triage Assessment: 08:29 General: Appears uncomfortable, Behavior is cooperative, appropriate for age. Pain: ll1 Complains of pain in right arm and left leg Pain currently is 8 out of 10 on a pain scale. Quality of pain is described as aching, Aggravated by increased activity. Respiratory: Reports cough that is. Derm: Reports abrasions L knee. Musculoskeletal: Circulation, motion, and sensation intact. Capillary refill < 3 seconds, Tenderness present in right arm Reports pain in right arm and left leg. Injury Description: Abrasion Bruise. 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/A - control method [facility] Trauma Activation: Not Applicable Physician: ED Physician; Name: ; Notified At: ; Arrived At: Physician: General Surgeon; Name: ; Notified At: ; Arrived At: Physician: Radiology; Name: ; Notified At: ; Arrived At: Physician: Respiratory; Name: ; Notified At: ; Arrived At: Physician: Lab; Name: ; Notified At: ; Arrived At: Historical: - Allergies: 08:26 Trazodone; ll1 08:26 citalopram; ll1 08:26 Lamictal; ll1 08:26 Latex, Natural Rubber; ll1 08:26 Morphine; ll1 - PMHx: 08:26 ADD/ADHD; Anxiety; cardiomyopathy; CHF; Hypertension; ll1 - PSHx: 08:26 section; Appendectomy; L wrist SX x 2; ll1 - Immunization history:: Client reports having NOT received the Covid vaccine. Last tetanus immunization: not immunized. - Social history:: Smoking status: Patient denies any tobacco usage or history of. Screenin:30 Abuse screen: Denies threats or abuse. Nutritional screening: No deficits noted. ll1 Tuberculosis screening: No symptoms or risk factors identified. Fall Risk Fall in past 12 months (25 points). Total Yang Fall Scale indicates No Risk (0-24 pts). Primary Survey: 08:30 NO uncontrolled hemorrhage observed. A: The client is awake and alert. The airway is ll1 patent. Breathing/Chest: Spontaneous respiratory effort, equal unlabored respirations, breath sounds clear bilaterally, regular pattern, symmetrical chest rise and fall. Circulation: No external hemorrhage present. Regular and strong central pulse, skin warm/dry/normal color. Disability Client is alert. Exposure/Environment: There is no evidence of uncontrolled external bleeding. 10:25 Reassessment Breathing: Spontaneous respiratory effort, equal unlabored respirations, ll1 breath sounds clear bilaterally, regular pattern with symmetrical chest rise and fall. Assessment: 09:02 Reassessment: No changes from previously documented assessment. Patient and/or family ll1 updated on plan of care and expected duration. Pain level reassessed. Patient is alert, oriented x 3, equal unlabored respirations, skin warm/dry/pink. 10:24 Reassessment: No changes from previously documented assessment. Patient and/or family ll1 updated on plan of care and expected duration. Pain level reassessed. requests pain medicineSrini NP informed. 10:45 Reassessment: No changes from previously documented assessment. Patient and/or family ll1 updated on plan of care and expected duration. Pain level reassessed. Patient is alert, oriented x 3, equal unlabored respirations, skin warm/dry/pink. Vital Signs: 08:27 BP 161 / 103; Pulse 89; Resp 16; Temp 98.5(O); Pulse Ox 95% on R/A; Weight 123.83 kg; ll1 Height 5 ft. 1 in. (154.94 cm); Pain 8/10; 10:44 BP 133 / 80; Pulse 68; Resp 16; Pulse Ox 95% ; Pain 8/10; ll1 08:27 Body Mass Index 51.58 (123.83 kg, 154.94 cm) ll1 Bjorn Coma Score: 08:31 Eye Response: spontaneous(4). Verbal Response: oriented(5). Motor Response: obeys ll1 commands(6). Total: 15. Trauma Score (Adult): 08:31 Eye Response: spontaneous(1); Verbal Response: oriented(1); Motor Response: obeys ll1 commands(2); Systolic BP: > 89 mm Hg(4); Respiratory Rate: 10 to 29 per min(4); Bjorn Score: 15; Trauma Score: 12 ED Course: 08:15 Patient arrived in ED. as 08:16 Nai Nelson FNP-C is [facility]. kb 08:16 Jose Barreto MD is Attending Physician. kb 08:20 Arm band placed on Patient placed in an exam room, on a stretcher. ll1 08:26 Gutierrez Palafox, MARE is Primary Nurse. ll1 08:29 Triage completed. ll1 08:31 Patient has correct armband on for positive identification. Bed in low position. Call ll1 light in reach. Side rails up X 1. Cardiac monitoring not applicable on this patient. 08:31 Patient maintains SpO2 saturation greater than 95% on room air. ll1 09:02 Thermoregulation: warm blanket given to patient. ll1 09:10 Forearm Right XRAY In Process Unspecified. EDMS 09:10 Knee Left 3 View XRAY In Process Unspecified. EDMS 09:10 Chest Single View XRAY In Process Unspecified. EDMS 10:25 No provider procedures requiring assistance completed. Patient did not have IV access ll1 during this emergency room visit. Administered Medications: 08:44 Drug: Tetanus-Diphtheria Toxoid Adult 0.5 ml {Coke Inspector: [place]. Exp: ll1 03/15/2024. Lot #: [id number]. } Route: IM; Site: left deltoid; 10:35 Follow up: Response: No adverse reaction ll1 10:35 Drug: Ketorolac 60 mg Route: IM; Site: left gluteus; ll1 10:44 Follow up: Response: No adverse reaction; Pain is decreased; RASS: Alert and Calm (0) ll1 Medication: 09:02 Vaccine Information Statement (VIS) provided today. Questions and/or concerns ll1 addressed. VIS edition date: June 01, 2021. Intake: 10:25 PO: 0ml; Total: 0ml. ll1 Output: 10:25 Urine: 0ml; Total: 0ml. ll1 Outcome: 09:02 Patient's length of stay was not longer than 2 hours. ll1 10:30 Discharge ordered by . kb 10:45 Discharged to home ambulatory. ll1 10:45 Condition: stable 10:45 Discharge instructions given to patient, Instructed on discharge instructions, follow up and referral plans. medication usage, Demonstrated understanding of instructions, follow-up care, medications, Prescriptions given X 1. 10:45 Patient left the ED. ll1 Signatures: Dispatcher [employer] Nai Bruce, Marta Coates Lynsay, MARE RN ll1
--- NOTE | 2022-08-25 10:31 | EDPHYS ---
Physician Documentation [facility] Name: Priscilla Solo Age: 37 yrs Sex: Female : 1985 Arrival Date: 08/25/2022 Time: 08:15 Bed 13 Private MD: ED Physician Jose Barreto HPI: 08/25 13:39 This 37 yrs old Female presents to ER via Ambulatory with complaints of bronchitis, kb Fall Injury. 13:39 The patient has not recently seen a physician. kb 13:39 Details of fall: The patient fell from an upright position, while walking. Onset: The kb symptoms/episode began/occurred this morning, at 03:00. Associated injuries: The patient sustained right forearm, painful injury, left knee, abrasion, painful injury. Severity of symptoms: At their worst the symptoms were moderate, in the emergency department the symptoms are unchanged. The patient has not experienced similar symptoms in the past. Pt reports she fell in the mud at 0300. Reports pain to right shoulder and left knee. Also reports cough and congestion for 2 weeks. 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 Last tetanus immunization: not immunized. - Social history:: Smoking status: Patient denies any tobacco usage or history of. ROS: 13:39 Constitutional: Negative for fever, chills, and weight loss. kb 13:39 ENT: Positive for sinus congestion. 13:39 Respiratory: Positive for cough, Negative for dyspnea on exertion, hemoptysis, orthopnea, pleurisy, shortness of breath, sputum production, wheezing. 13:39 MS/extremity: Positive for pain, of the left knee and right forearm. 13:39 All other systems are negative. Exam: 13:37 Constitutional: This is a well developed, well nourished patient who is awake, alert, kb and in no acute distress. Head/Face: Normocephalic, atraumatic. ENT: Moist Mucous membranes Cardiovascular: Regular rate and rhythm with a normal S1 and S2. No gallops, murmurs, or rubs. No pulse deficits. Respiratory: Respirations even and unlabored. No increased work of breathing. Talking in full sentences Abdomen/GI: Soft, non-tender. No distention Skin: Warm, dry with normal turgor. Normal color. Neuro: Awake and alert, GCS 15, oriented to person, place, time, and situation. Moves all extremities. Normal gait. Psych: Awake, alert, with orientation to person, place and time. Behavior, mood, and affect are within normal limits. 13:37 Musculoskeletal/extremity: Extremities: grossly normal except: noted in the right forearm: decreased ROM, pain, swelling, tenderness, noted in the left knee: abrasion, pain, ROM: intact in all extremities, Circulation is intact in all extremities. Sensation intact. Weight bearing: able to fully bear weight. Vital Signs: 08:27 BP 161 / 103; Pulse 89; Resp 16; Temp 98.5(O); Pulse Ox 95% on R/A; Weight 123.83 kg; ll1 Height 5 ft. 1 in. (154.94 cm); Pain 8/10; 10:44 BP 133 / 80; Pulse 68; Resp 16; Pulse Ox 95% ; Pain 8/10; ll1 08:27 Body Mass Index 51.58 (123.83 kg, 154.94 cm) ll1 Bjorn Coma Score: 08:31 Eye Response: spontaneous(4). Verbal Response: oriented(5). Motor Response: obeys ll1 commands(6). Total: 15. Trauma Score (Adult): 08:31 Eye Response: spontaneous(1); Verbal Response: oriented(1); Motor Response: obeys ll1 commands(2); Systolic BP: > 89 mm Hg(4); Respiratory Rate: 10 to 29 per min(4); Bjorn Score: 15; Trauma Score: 12 MDM: 08:16 Patient medically screened. kb 13:08 Data reviewed: vital signs, nurses notes. Data interpreted: Pulse oximetry: on room air kb is 95 %. Interpretation: normal. Counseling: I had a detailed discussion with the patient and/or guardian regarding: the historical points, exam findings, and any diagnostic results supporting the discharge/admit diagnosis, radiology results, the need for outpatient follow up, a family practitioner, to return to the emergency department if symptoms worsen or persist or if there are any questions or concerns that arise at home. 08/25 08:22 Order name: Forearm Right XRAY; Complete Time: 10:19 kb 08/25 08:22 Order name: Knee Left 3 View XRAY; Complete Time: 10:22 kb 08/25 08:22 Order name: Chest Single View XRAY; Complete Time: 10:19 kb Administered Medications: 08:44 Drug: Tetanus-Diphtheria Toxoid Adult 0.5 ml {Framing Mill Operator Helper: Raise Your Flag. Exp: ll1 03/15/2024. Lot #: [id number]. } Route: IM; Site: left deltoid; 10:35 Follow up: Response: No adverse reaction ll1 10:35 Drug: Ketorolac 60 mg Route: IM; Site: left gluteus; ll1 10:44 Follow up: Response: No adverse reaction; Pain is decreased; RASS: Alert and Calm (0) ll1 Disposition: 16:53 Co-signature as Attending Physician, Jose Barreto MD I agree with the assessment and kdr plan of care. Disposition Summary: 08/25/22 10:30 Discharge Ordered Location: Home kb Condition: Stable kb Diagnosis - Cough kb - Pain in left knee kb - Pain in right wrist kb Followup: kb - With: Emergency Department - When: As needed - Reason: Worsening of condition Followup: kb - With: Private Physician - When: 2 - 3 days - Reason: Recheck today's complaints, Continuance of care, Re-evaluation by your physician Discharge Instructions: - Discharge Summary Sheet kb - Musculoskeletal Pain kb - Cough, Adult, [id number] kb Forms: - Medication Reconciliation Form kb - Thank You Letter kb - Antibiotic Education kb - Prescription Opioid Use kb Prescriptions: - Ibuprofen 800 mg Oral Tablet - take 1 tablet by ORAL route every 8 hours As needed take with food; 30 tablet; kb Refills: 0, Product Selection Permitted Signatures: Dispatcher [employer] Nai Bruce, Jose Bernard MD MD kdr Lewis, Lynsay RN RN 1
[2022-08-25 10:53] VITALS: TEMP 98.5; O2SAT 95
[2022-08-25 11:00] VITALS: BP 133/80
== END 2022-08-25 10:45 | disposition home or self-care (01) ==
LOC: ER 08:13
DX: R05.9 Cough, unspecified (principal); M25.562 Pain in left knee; M25.531 Pain in right wrist; I10 Essential (primary) hypertension; Z23 Encounter for immunization; Z88.5 Allergy status to narcotic agent; Z88.8 Allergy status to other drugs, medicaments and biological substances; Z91.040 Latex allergy status; Z91.048 Other nonmedicinal substance allergy status
CPT/HCPCS: 71045; 90471; 90714; 96372; 99284

== ENCOUNTER 2022-09-03 08:00 | Emergency (ER) | payer OTHER ==
--- OUTSIDE RECORDS SUMMARY | 2022-09-03 08:11 | XMS REPORT | Continuity of Care Document ---
:1985 Author Organization [facility] t Address [address] [place] [address] Care Team Providers Name Role Phone Marleny Floyd Primary Care Physician TOREY WHYTE Attending Clinician Unavailable Bello Arango Attending Clinician NANNETTE JUAN Attending Clinician Unavailable Drake LATIF, Nannette Attending Clinician TOREY CESAR Attending Clinician Unavailable Torey Cesar PA-C Attending Clinician EbCj Ernst Attending Clinician REGLA BAEZ Attending Clinician Unavailable Regla Solano Attending Clinician BELLO KURTZ Attending Clinician Unavailable LOTTIE GARVIN Attending Clinician Unavailable Lottie Garvin MD Attending Clinician Doctor Unassigned, Robbins Attending Clinician Unavailable Harjit Sneed DO Attending [...] Number Effective Date Expiration Date Gladis hermosillo [facility] [id number] 2012 00:00:00 PLUS Problems Condition Condition Condition [...] from the original. [facility] # [id number] y questions please contact:Rachel Manley MD [phone] Hightower MD [phone] Jaden Frias MD [phone] facts Patient randomize d after delivery if they met inclusion criteria a nd accepted Medicati on comes from [facility] not pharmacy, [facility] Phone Number Ext. [phone] or cell Patient can start meds as soon as they tolerate PO One tab per day of either placebo or HCTZ Medicati on stays with patient Medicati on will appear on DEC, Nurses need to randy as given (No barcode) Medicati on needs to counted prior to discharge by research steam pan sponger All follow ups need to be on POD or PP day # 14 or more Patient needs to be reminded to bring their left over medicatio n and bottle back to their visit [facility] needs to be notified at time of discharge Please contact Dr. Manley with any Questions Pain Pain Disease Active Univers pelvic pelvic 2-18 ity of 00:00: [place] 00 [facility] [place] Depression Depression Disease Active U nivers 05-18 ity of 00:00: [facility] Asthma Asthma Disease Active Overview: Univer s 05-18 Formattin ity of 00:00: g of this note Medical might be Branch different from the original. ICD10 Diagnosis Term Remedy Developer Utility Allergies, Adverse Reactions, Alerts Allergy Allergy Status Severity Reaction(s) Onset Inactive Treating Comm ents Source Name Type Date Date Clinician Morphine Drug Active Itching 2019- Univers Allergy 0-09 ity of 00:00: [place] 00 Medical Branch MORPHINE DRUG Active Low ITCHING 2019- Univers INGREDI 0-09 ity of 00:00: 00 [facility] [place] Latex Propensi Active Rash 2017- Univers ty to 2-15 ity of adverse 00:00: [place] reaction 00 [facility] Branch LATEX DRUG Active Rash 2017-0 Univers INGREDI 2-15 ity of 00:00: [place] 00 [facility] [place] Social History Social Habit Start Date Stop Date Quantity Comments Source Exposure to 2022-07-07 2022-07-17 Not sure [facility] SARS-CoV-2 00:00:00 09:06:00 [facility] (event) Branch Alcohol intake 2022-07-17 2022-07-17 0 /d University of 00:00:00 00:00:00 [facility] Tobacco use and 2022-06-12 2022-06-12 Smokeless tobacco Un iversity of exposure 00:00:00 00:00:00 non-user [facility] Alcohol Comment 2014-05-18 2014-05-18 rarely Universit y of 00:00:00 00:00:00 [facility] Sex [birth year] Universit y of 00:00:00 00:00:00 [facility] Smoking Status Start Date Stop Date Source Never smoked tobacco [facility] Medications Ordered Filled Start Stop Current Ordering Indication Dosage Frequency Signature Comments Components Source Medication Medication Date Date Medication? Clinician (SIG) Name Name sulfamethox 2021- Yes [id number] 1{tbl} Take 1 Univers azole-trime 9-24 10-02 tablet by it y of thoprim 00:00: 04:59 mouth in [place] (BACTRIM 00 :00 the Medical DS) 800-160 morning Branc h mg per and 1 tablet tablet in the evening. Do all this for 7 days. ondansetron Yes [id number] 4mg Take 1 Univers 4 mg 9-21 tablet by ity of disintegrat 00:00: mouth [place] ing tablet 00 every 8 Medica l (eight) Branch hours as needed for Nausea and Vomiting (N/V). cetirizine Yes [id number] 10mg Take 1 U nivers (ZYRTEC) 10 9-21 tablet by ity of mg tablet 00:00: [place] 00 the Medical morning. Branch ondansetron Yes [id number] 4mg Take 1 Univers 4 mg 9-21 tablet by ity of disintegrat 00:00: mouth [place] ing tablet 00 every 8 Medica l (eight) Branch hours as needed for Nausea and Vomiting (N/V). cetirizine Yes [id number] 10mg Take 1 U nivers (ZYRTEC) 10 9-21 tablet by ity of mg tablet 00:00: mouth [place] 00 the Medical morning. Branch polymyxin B 2021- Yes [id number] 1[drp] Place 1 Univers sulf-trimet -07-25 Drop in ity of hoprim 00:00: 04:59 both eyes [place] 10,000 00 :00 4 (four) Medical unit- 1 times Branch mg/mL daily for ophthalmic 7 days. drops polymyxin B 2021- Yes [id number] 1[drp] Place 1 Univers sulf-trimet 07-17 Drop in ity of hoprim 00:00: 04:59 both eyes [place] 10,000 00 :00 4 (four) Medical unit- 1 times Branch mg/mL daily for ophthalmic 7 days. drops fluconazole 2021- Yes [id number] 150mg Take 1 Univers (DIFLUCAN) 07-17 tablet by ity of 150 mg 00:00: 04:59 mouth [place] tablet 00 :00 now for 1 Medical dose. Branch amoxicillin 2021- Yes [id number] 1{tbl} Take 1 Univers -clavulanat 8-17 08-25 tablet by it y of e 00:00: 04:59 mouth in [place] (AUGMENTIN) 00 :00 the Medical 875-125 mg morning Branch per tablet and 1 tablet in the evening. Do all this for 7 days. benzonatate 2021- No [id number] 200mg Take 1 Univers 200 mg 6-19 06-30 capsule by ity of capsule 00:00: 04:59 mouth 3 [place] 00 :00 (three) Medical times Branch daily as needed for Cough for up to 10 days. amoxicillin 2021- No [id number] 1{tbl} Take 1 Univers -clavulanat 6-19 06-27 tablet by it y of e 00:00: 04:59 mouth 2 [place] (AUGMENTIN) 00 :00 (two) Medical 875-125 mg times Branch per tablet daily for 7 days. amoxicillin 2021- No [id number] 1{tbl} Take 1 Univers -clavulanat 6-08 06-16 tablet by it y of e 875-125 00:00: 04:59 mouth 2 [place] mg per 00 :00 (two) Medical tablet times Branch daily for 7 days. ibuprofen Yes [id number] 600mg Take 1 Univers 600 mg 5-24 100 tablet by ity of tablet 00:00: mouth [place] 00 every 6 Medical (six) Branch hours as needed for Pain (scale 4-6). ibuprofen Yes [id number] 600mg Take 1 Univers 600 mg 5-24 100 tablet by ity of tablet 00:00: mouth [place] 00 every 6 Medical (six) Branch hours as needed for Pain (scale 4-6). ibuprofen 2021-0 Yes [id number] 600mg Take 1 Univers 600 mg 5-24 100 tablet by ity of tablet 00:00: mouth [place] 00 every 6 Medical (six) Branch hours as needed for Pain (scale 4-6). ibuprofen 2021-0 Yes [id number] 600mg Take 1 Univers 600 mg 5-24 100 tablet by ity of tablet 00:00: mouth [place] 00 every 6 Medical (six) Branch hours as needed for Pain (scale 4-6). ibuprofen 2021-0 2022- No [id number] 600mg Take 1 Univers 600 mg 5-24 09-21 100 tablet by ity of tablet 00:00: 00:00 mouth [place] 00 :00 every 6 Medical (six) Branch hours as needed for Pain (scale 4-6). guaiFENesin 2020-10 Yes [id number] 400mg Take 1 Univers 400 mg 2-06 tablet by ity of tablet 00:00: mouth [place] 00 every 4 Medical (four) Branch hours as needed for Cough. ondansetron 2020-10 Yes [id number] 4mg Take 1 Univers 4 mg 2-06 tablet by ity of disintegrat 00:00: mouth [place] ing tablet 00 every 8 Medica l (eight) Branch hours as needed for Nausea and Vomiting (N/V). albuterol 2020-10 Yes [id number] 2{puff} Inhale 2 Univers 90 2-06 Puffs ity of mcg/actuati 00:00: every 6 [place] as on inhaler 00 (six) Medical hours as Branch needed for Wheezing or Shortness of Breath. budesonide- 2020-10 Yes [id number] 2{puff} Inhale 2 Univers formoteroL 2-06 Puffs 2 ity of (SYMBICORT) 00:00: (two) [place] 160-4.5 00 times Medical mcg/actuati daily. Branch on inhaler guaiFENesin 2020-10 Yes [id number] 400mg Take 1 Univers 400 mg 2-06 tablet by ity of tablet 00:00: mouth [place] 00 every 4 Medical (four) Branch hours as needed for Cough. ondansetron 2020-10 Yes [id number] 4mg Take 1 Univers 4 mg 2-06 tablet by ity of disintegrat 00:00: mouth [place] ing tablet 00 every 8 Medica l (eight) Branch hours as needed for Nausea and Vomiting (N/V). albuterol 2020-10 Yes [id number] 2{puff} Inhale 2 Univers 90 2-06 Puffs ity of mcg/actuati 00:00: every 6 [place] on inhaler 00 (six) Medical hours as Branch needed for Wheezing or Shortness of Breath. budesonide- 2020-10 Yes [id number] 2{puff} Inhale 2 Univers formoteroL 2-06 Puffs 2 ity of (SYMBICORT) 00:00: (two) [place] 160-4.5 00 times Medical mcg/actuati daily. Branch on inhaler ondansetron 2020-10 Yes [id number] 4mg Take 1 Univers 4 mg 2-06 tablet by ity of disintegrat 00:00: mouth [place] ing tablet 00 every 8 Medica l (eight) Branch hours as needed for Nausea and Vomiting (N/V). albuterol 2020-10 Yes [id number] 2{puff} Inhale 2 Univers 90 2-06 Puffs ity of mcg/actuati 00:00: every 6 [place] on inhaler 00 (six) Medical hours as Branch needed for Wheezing or Shortness of Breath. budesonide- 2020-10 Yes [id number] 2{puff} Inhale 2 Univers formoteroL 2-06 Puffs 2 ity of (SYMBICORT) 00:00: (two) [place] 160-4.5 00 times Medical mcg/actuati daily. Branch on inhaler ondansetron 2020-10 Yes [id number] 4mg Take 1 Univers 4 mg 2-06 tablet by ity of disintegrat 00:00: mouth [place] ing tablet 00 every 8 Medica l (eight) Branch hours as needed for Nausea and Vomiting (N/V). albuterol 2020-10 Yes [id number] 2{puff} Inhale 2 Univers 90 2-06 Puffs ity of mcg/actuati 00:00: every 6 [place] on inhaler 00 (six) Medical hours as Branch needed for Wheezing or Shortness of Breath. budesonide- 2020-10 Yes [id number] 2{puff} Inhale 2 Univers formoteroL 2-06 Puffs 2 ity of (SYMBICORT) 00:00: (two) [place] 160-4.5 00 times Medical mcg/actuati daily. Branch on inhaler benzonatate 2020-10 Yes [id number] 200mg Take 2 Univers 100 mg 2-06 capsules ity of capsule 00:00: by mouth 2 [place] 00 (two) Medical times Branch daily as needed for Cough. guaiFENesin 2020-10 Yes [id number] 400mg Take 1 Univers 400 mg 2-06 tablet by ity of tablet 00:00: mouth [place] 00 every 4 Medical (four) Branch hours as needed for Cough. ondansetron 2020-10 Yes [id number] 4mg Take 1 Univers 4 mg 2-06 tablet by ity of disintegrat 00:00: mouth [place] ing tablet 00 every 8 Medica l (eight) Branch hours as needed for Nausea and Vomiting (N/V). albuterol 2020-10 Yes [id number] 2{puff} Inhale 2 Univers 90 2-06 Puffs ity of mcg/actuati 00:00: every 6 [place] on inhaler 00 (six) Medical hours as Branch needed for Wheezing or Shortness of Breath. budesonide- 2020-10 Yes [id number] 2{puff} Inhale 2 Univers formoteroL 2-06 Puffs 2 ity of (SYMBICORT) 00:00: (two) [place] 160-4.5 00 times Medical mcg/actuati daily. Branch on inhaler benzonatate 2020-10 Yes [id number] 200mg Take 2 Univers 100 mg 2-06 capsules ity of capsule 00:00: by mouth 2 [place] 00 (two) Medical times Branch daily as needed for Cough. guaiFENesin 2020-10 Yes [id number] 400mg Take 1 Univers 400 mg 2-06 tablet by ity of tablet 00:00: mouth [place] 00 every 4 Medical (four) Branch hours as needed for Cough. ondansetron 2020-10 Yes [id number] 4mg Take 1 Univers 4 mg 2-06 tablet by ity of disintegrat 00:00: mouth [place] ing tablet 00 every 8 Medica l (eight) Branch hours as needed for Nausea and Vomiting (N/V). albuterol 2020-10 Yes [id number] 2{puff} Inhale 2 Univers 90 2-06 Puffs ity of mcg/actuati 00:00: every 6 [place] on inhaler 00 (six) Medical hours as Branch needed for Wheezing or Shortness of Breath. budesonide- 2020-10 Yes [id number] 2{puff} Inhale 2 Univers formoteroL 2-06 Puffs 2 ity of (SYMBICORT) 00:00: (two) [place] 160-4.5 00 times Medical mcg/actuati daily. Branch on inhaler benzonatate 2020-10 Yes [id number] 200mg Take 2 Univers 100 mg 2-06 capsules ity of capsule 00:00: by mouth 2 [place] 00 (two) Medical times Branch daily as needed for Cough. guaiFENesin 2020-10 Yes [id number] 400mg Take 1 Univers 400 mg 2-06 tablet by ity of tablet 00:00: mouth [place] 00 every 4 Medical (four) Branch hours as needed for Cough. ondansetron 2020-10 Yes [id number] 4mg Take 1 Univers 4 mg 2-06 tablet by ity of disintegrat 00:00: mouth [place] ing tablet 00 every 8 Medica l (eight) Branch hours as needed for Nausea and Vomiting (N/V). albuterol 2020-10 Yes [id number] 2{puff} Inhale 2 Univers 90 2-06 Puffs ity of mcg/actuati 00:00: every 6 [place] on inhaler 00 (six) Medical hours as Branch needed for Wheezing or Shortness of Breath. budesonide- 2020-10 Yes [id number] 2{puff} Inhale 2 Univers formoteroL 2-06 Puffs 2 ity of (SYMBICORT) 00:00: (two) [place] 160-4.5 00 times Medical mcg/actuati daily. Branch on inhaler benzonatate 2020-10 Yes [id number] 200mg Take 2 Univers 100 mg 2-06 capsules ity of capsule 00:00: by mouth 2 [place] 00 (two) Medical times Branch daily as needed for Cough. guaiFENesin 2020-10 Yes [id number] 400mg Take 1 Univers 400 mg 2-06 tablet by ity of tablet 00:00: mouth [place] 00 every 4 Medical (four) Branch hours as needed for Cough. ondansetron 2020-10 Yes [id number] 4mg Take 1 Univers 4 mg 2-06 tablet by ity of disintegrat 00:00: mouth [place] ing tablet 00 every 8 Medica l (eight) Branch hours as needed for Nausea and Vomiting (N/V). albuterol 2020-10 Yes [id number] 2{puff} Inhale 2 Univers 90 2-06 Puffs ity of mcg/actuati 00:00: every 6 [place] on inhaler 00 (six) Medical hours as Branch needed for Wheezing or Shortness of Breath. budesonide- 2020-10 Yes [id number] 2{puff} Inhale 2 Univers formoteroL 2-06 Puffs 2 ity of (SYMBICORT) 00:00: (two) [place] 160-4.5 00 times Medical mcg/actuati daily. Branch on inhaler guaiFENesin 2020-10- No [id number] 400mg Take 1 Univers 400 mg 2-04 04-21 tablet by ity of tablet 00:00: 00:00 mouth [place] 00 :00 every 4 Medical (four) Branch hours as needed for Cough. benzonatate 2020-10- No [id number] 200mg Take 2 Univers 100 mg 2- 06-19 capsules ity of capsule 00:00: 00:00 by mouth 2 [place] 00 :00 (two) Medical times Branch daily as needed for Cough. amoxicillin 2020-10- No [id number] 1{tbl} Take 1 Univers -clavulanat 2- 12-14 [...] -epinephrin Starting ity of e-pf 20:12: Fri [place] (SENSORCAIN 00 08/04/20 at Nv dical E 1512, Branch W/EPINEPHRI Until NE) [...] Medical mL (1 %) 08/04/20 at [facility] h injection 1437, Until 08/04/20 [...] 1115, Routine, [facility]SU Pre-op gabapentin 2019-10- No [id number] 300mg Take 1 Univers 300 mg 010-04 capsule by ity of capsule 00:00: 05:59 mouth 3 [place] 00 :00 (three) Medical times Branch daily for 60 days. gabapentin 2019-10- No [id number] 300mg Take 1 Univers 300 mg 0- capsule by ity of capsule 00:00: 05:59 mouth 3 [place] 00 :00 (three) Medical times Branch daily for 60 days. gabapentin 2019-10- No [id number] 300mg Take 1 Univers 300 mg 0- [...] Indication s: acute pain ondansetron 2019-10- No [id number] 4mg Take 1 Univers 4 mg tablet [...] s: acute pain ondansetron 2019-10 2020- No [id number] 4mg Take 1 Univers 4 mg tablet 017 tablet by it y of 00:00: 04:59 mouth [place] 00 :00 every 8 Medical (eight) Branch hours as needed for Nausea and Vomiting (N/V) for up to 7 days. nystatin-tr 2020-0 Yes [id number] Apply to Univers iamcinolone 8-10 area(s) 3 ity of cream 00:00: (three) [place] 00 times Medical daily. Branch nystatin-tr 2020-0 Yes [id number] Apply to Univers iamcinolone 8-10 area(s) 3 ity of cream 00:00: (three) [place] 00 times Medical daily. Branch nystatin-tr 2020-0 Yes [id number] Apply to Univers iamcinolone 8-10 area(s) 3 ity of cream 00:00: (three) [place] 00 times Medical daily. Branch nystatin-tr 2020-0 Yes [id number] Apply to Univers iamcinolone 8-10 area(s) 3 ity of cream 00:00: (three) [place] 00 times Medical daily. Branch nystatin-tr 2020-0 Yes [id number] Apply to Univers iamcinolone 8-10 area(s) 3 ity of cream 00:00: (three) [place] 00 times Medical daily. Branch nystatin-tr 2020-0 Yes [id number] Apply to Univers iamcinolone 8-10 area(s) 3 ity of cream 00:00: (three) [place] 00 times Medical daily. Branch nystatin-tr 2020-0 Yes [id number] Apply to Univers iamcinolone 8-10 area(s) 3 ity of cream 00:00: (three) [place] 00 times Medical daily. Branch nystatin-tr 2020-0 Yes [id number] Apply to Univers iamcinolone 8-10 area(s) 3 ity of cream 00:00: (three) [place] 00 times Medical daily. Branch nystatin-tr 2020-0 Yes [id number] Apply to Univers iamcinolone 8-10 area(s) 3 ity of cream 00:00: (three) [place] 00 times Medical daily. Branch nystatin-tr 2020-0 Yes [id number] Apply to Univers iamcinolone 8-10 area(s) 3 ity of cream 00:00: (three) [place] 00 times Medical daily. Branch nystatin-tr 2020-0 Yes [id number] Apply to Univers iamcinolone 8-10 area(s) 3 ity of cream 00:00: (three) [place] 00 times Medical daily. Branch nystatin-tr 2020-0 Yes [id number] Apply to Univers iamcinolone 8-10 area(s) 3 ity of cream 00:00: (three) [place] 00 times Medical daily. Branch nystatin-tr 2020-0 Yes [id number] Apply to Univers iamcinolone 8-10 area(s) 3 ity of cream 00:00: (three) [place] 00 times Medical daily. Branch nystatin-tr 2020-0 Yes [id number] Apply to Univers iamcinolone 8-10 area(s) 3 ity of cream 00:00: (three) [place] 00 times Medical daily. Branch nystatin-tr 2020-0 Yes [id number] Apply to Univers iamcinolone 8-10 area(s) 3 ity of cream 00:00: (three) [place] 00 times Medical daily. Branch nystatin-tr 2020-0 Yes [id number] Apply to Univers iamcinolone 8-10 area(s) 3 ity of cream 00:00: (three) [place] 00 times Medical daily. Branch nystatin-tr 2020-0 Yes [id number] Apply to Univers iamcinolone 8-10 area(s) 3 ity of cream 00:00: (three) [place] 00 times Medical daily. Branch nystatin-tr 2020-0 Yes [id number] Apply to Univers iamcinolone 8-10 area(s) 3 ity of cream 00:00: (three) [place] 00 times Medical daily. Branch nystatin-tr 2020-0 Yes [id number] Apply to Univers iamcinolone 8-10 area(s) 3 ity of cream 00:00: (three) [place] 00 times Medical daily. Branch nystatin-tr 2020-0 Yes [id number] Apply to Univers iamcinolone 8-10 area(s) 3 ity of cream 00:00: (three) [place] 00 times Medical daily. Branch nystatin-tr 2020-0 Yes [id number] Apply to Univers iamcinolone 8-10 area(s) 3 ity of cream 00:00: (three) [place] 00 times Medical daily. Branch nystatin-tr 2020-0 Yes [id number] Apply to Univers iamcinolone 8-10 area(s) 3 ity of cream 00:00: (three) [place] 00 times Medical daily. Branch nystatin-tr 2020-0 Yes [id number] Apply to Univers iamcinolone 8-10 area(s) 3 ity of cream 00:00: (three) [place] 00 times Medical daily. Branch nystatin-tr 2020-0 Yes [id number] Apply to Univers iamcinolone 8-10 area(s) 3 ity of cream 00:00: (three) [place] 00 times Medical daily. Branch nystatin-tr 2020-0 Yes [id number] Apply to Univers iamcinolone 8-10 area(s) 3 ity of cream 00:00: (three) [place] 00 times Medical daily. Branch nystatin-tr 2020-0 Yes [id number] Apply to Univers iamcinolone 8-10 area(s) 3 ity of cream 00:00: (three) [place] 00 times Medical daily. Branch nystatin-tr 2020-0 Yes [id number] Apply to Univers iamcinolone 8-10 area(s) 3 ity of cream 00:00: (three) [place] 00 times Medical daily. Branch nystatin-tr 2020-0 Yes [id number] Apply to Univers iamcinolone 8-10 area(s) 3 ity of cream 00:00: (three) [place] 00 times Medical daily. Branch nystatin-tr 2020-0 Yes [id number] Apply to Univers iamcinolone 8-10 area(s) 3 ity of cream 00:00: (three) [place] 00 times Medical daily. Branch nystatin-tr 2020-0 Yes [id number] Apply to Univers iamcinolone 8-10 area(s) 3 ity of cream 00:00: (three) [place] 00 times Medical daily. Branch nystatin-tr 2020-0 2- No [id number] Apply to [facility] 8 09-21 area(s) 3 it y of cream 00:00: 00:00 (three) [place] 00 :00 times Medical daily. Branch indomethaci 2020-0 Yes TK 1 C PO U nivers n 50 mg 5-06 Q 6 H PRN ity of capsule 00:00: [place] 00 Medical Branch indomethaci 2020-0 Yes TK 1 C PO U nivers n 50 mg 5-06 Q 6 H PRN ity of capsule 00:00: [place] 00 Medical Branch indomethaci 2020-0 Yes TK 1 C PO U nivers n 50 mg 5-06 Q 6 H PRN ity of capsule 00:00: [place] 00 Medical Branch indomethaci 2020-0 Yes TK 1 C PO U nivers n 50 mg 5-06 Q 6 H PRN ity of capsule 00:00: [place] 00 Medical Branch indomethaci 2020-0 Yes TK 1 C PO U nivers n 50 mg 5-06 Q 6 H PRN ity of capsule 00:00: [place] 00 Medical Branch indomethaci 2020-0 Yes TK 1 C PO U nivers n 50 mg 5-06 Q 6 H PRN ity of capsule 00:00: [place] 00 Medical Branch indomethaci 2020-0 Yes TK 1 C PO U nivers n 50 mg 5-06 Q 6 H PRN ity of capsule 00:00: [place] 00 Medical Branch indomethaci 2020-0 2020- No TK 1 C PO Univers n 50 mg 5-06 08-10 Q 6 H PRN ity of capsule 00:00: 00:00 [place] 00 :00 Medical Branch indomethaci 2020-0 2020- No TK 1 C PO Univers n 50 mg 5-06 08-10 Q 6 H PRN ity of capsule 00:00: 00:00 [place] 00 :00 Medical Branch indomethaci 2020-0 2020- [...] s ne-ethinyl 1-30 ity of estradiol 00:00: [place] 1-20 mg-mcg 00 Medical per tablet Branch norethindro 2020-0 Yes Shwetha s ne-ethinyl 1-30 ity of estradiol 00:00: [place] 1-20 mg-mcg 00 Medical per tablet Branch norethindro 2020-0 Yes Shwetha s ne-ethinyl 1-30 ity of estradiol 00:00: [place] 1-20 mg-mcg 00 Medical per tablet Branch [...] hanson ne-ethinyl 1-30 ity of estradiol 00:00: [place] 1-20 mg-mcg 00 Medical per tablet Branch norethindro 2020-0 Yes Shwetha [place] ne-ethinyl 1-30 ity of estradiol 00:00: [place] 1-20 mg-mcg 00 Medical per tablet Branch norethindro 2020-0 Yes Shwetha s ne-ethinyl 1-30 ity of estradiol 00:00: [place] 1-20 mg-mcg 00 Medical per tablet Branch norethindro 2020-0 Yes Shwetha hanson ne-ethinyl 1-30 ity of estradiol 00:00: [place] 1-20 mg-mcg 00 Medical per tablet Branch norethindro 2020-0 Yes Shwetha s ne-ethinyl 1-30 ity of estradiol 00:00: [place] 1-20 mg-mcg 00 Medical per tablet Branch norethindro 2020-0 Yes Shwetha hanson ne-ethinyl 1-30 ity of estradiol 00:00: [place] 1-20 mg-mcg 00 Medical per tablet Branch norethindro 2020-0 Yes Shwetha hanson ne-ethinyl 1-30 ity of estradiol 00:00: [place] 1-20 mg-mcg 00 Medical per tablet Branch norethindro 2020-0 Yes Shwetha h[place] ne-ethinyl 1-30 ity of estradiol 00:00: [place] 1-20 mg-mcg 00 Medical per tablet Branch norethindro 2020-0 Yes Shwetha h[place] ne-ethinyl 1-30 ity of estradiol 00:00: [place] 1-20 mg-mcg 00 Medical per tablet Branch norethindro 2020-0 Yes Shwetha h[place] ne-ethinyl 1-30 ity of estradiol 00:00: [place] 1-20 mg-mcg 00 Medical per tablet Branch norethindro 2020-0 Yes Shwetha h[place] ne-ethinyl 1-30 ity of estradiol 00:00: [place] 1-20 mg-mcg 00 Medical per tablet Branch norethindro 2020-0 Yes Shwetha h[place] ne-ethinyl 1-30 ity of estradiol 00:00: [place] 1-20 mg-mcg 00 Medical per tablet Branch norethindro 2020-0 Yes Shwetha h[place] ne-ethinyl 1-30 ity of estradiol 00:00: [place] 1-20 mg-mcg 00 Medical per tablet Branch norethindro 2020-0 Yes Shwetha h[place] ne-ethinyl 1-30 ity of estradiol 00:00: [place] 1-20 mg-mcg 00 Medical per tablet Branch norethindro 2020-0 Yes Shwetha h[place] ne-ethinyl 1-30 ity of estradiol 00:00: [place] 1-20 mg-mcg 00 Medical per tablet Branch norethindro 2020-0 Yes Shwetha s ne-ethinyl 1-30 ity of estradiol 00:00: [place] 1-20 mg-mcg 00 Medical per tablet Branch norethindro 2020-0 Yes Shwetha s ne-ethinyl 1-30 ity of estradiol 00:00: [place] 1-20 mg-mcg 00 Medical per tablet Branch norethindro 2020-0 Yes Shwetha s ne-ethinyl 1-30 ity of estradiol 00:00: [place] 1-20 mg-mcg 00 Medical per tablet Branch norethindro 2020-0 Yes Shwetha s ne-ethinyl 1-30 ity of estradiol 00:00: [place] 1-20 mg-mcg 00 Medical per tablet Branch norethindro 2020-0 Yes Shwetha hanson ne-ethinyl 1-30 ity of estradiol 00:00: [place] 1-20 mg-mcg 00 Medical per tablet Branch norethindro 2020-0 Yes Shwetha h[place] ne-ethinyl 1-30 ity of estradiol 00:00: [place] 1-20 mg-mcg 00 Medical per tablet Branch norethindro 2020-0 Yes Shwetha h[place] ne-ethinyl 1-30 ity of estradiol 00:00: [place] 1-20 mg-mcg 00 Medical per tablet Branch norethindro 2020-0 Yes Shwetha h[place] ne-ethinyl 1-30 ity of estradiol 00:00: [place] 1-20 mg-mcg 00 Medical per tablet Branch norethindro 2020-0 Yes Shwetha h[place] ne-ethinyl 1-30 ity of estradiol 00:00: [place] 1-20 mg-mcg 00 Medical per tablet Branch norethindro 2020-0 Yes Shwetha hanson ne-ethinyl 1-30 ity of estradiol 00:00: [place] 1-20 mg-mcg 00 Medical per tablet Branch norethindro 2020-0 Yes Shwetha hanson ne-ethinyl 1-30 ity of estradiol 00:00: [place] 1-20 mg-mcg 00 Medical per tablet Branch norethindro 2020-0 Yes Shwetha hanson ne-ethinyl 1-30 ity of estradiol 00:00: [place] 1-20 mg-mcg 00 Medical per tablet Branch norethindro 2020-0 Yes Shwetha s ne-ethinyl 1-30 ity of estradiol 00:00: [place] 1-20 mg-mcg 00 Medical per tablet Branch norethindro 2020-0 Yes Shwetha s ne-ethinyl 1-30 ity of estradiol 00:00: [place] 1-20 mg-mcg 00 Medical per tablet Branch norethindro 2020-0 Yes Shwetha s ne-ethinyl 1-30 ity of estradiol 00:00: [place] 1-20 mg-mcg 00 Medical per tablet Branch norethindro 2020-0 Yes Shwetha s ne-ethinyl 1-30 ity of estradiol 00:00: [place] 1-20 mg-mcg 00 Medical per tablet Branch norethindro 2020-0 Yes Shwetha s ne-ethinyl 1-30 ity of estradiol 00:00: [place] 1-20 mg-mcg 00 Medical per tablet Branch norethindro 2020-0 Yes Shwetha s ne-ethinyl 1-30 ity of estradiol 00:00: [place] 1-20 mg-mcg 00 Medical per tablet Branch norethindro 2020-0 Yes Shwetha s ne-ethinyl 1-30 ity of estradiol 00:00: [place] 1-20 mg-mcg 00 Medical per tablet Branch norethindro 2020-0 Yes Shwetha s ne-ethinyl 1-30 ity of estradiol 00:00: [place] 1-20 mg-mcg 00 Medical per tablet Branch norethindro 2020-0 Yes Shwetha s ne-ethinyl 1-30 ity of estradiol 00:00: [place] 1-20 mg-mcg 00 Medical per tablet Branch norethindro 2020-0 Yes Shwetha s ne-ethinyl 1-30 ity of estradiol 00:00: [place] 1-20 mg-mcg 00 Medical per tablet Branch norethindro 2020-0 Yes Shwetha hanson ne-ethinyl 1-30 ity of estradiol 00:00: [place] 1-20 mg-mcg 00 Medical per tablet Branch norethindro 2020-0 Yes Shwetha s ne-ethinyl 1-30 ity of estradiol 00:00: [place] 1-20 mg-mcg 00 Medical per tablet Branch norethindro 2020-0 Yes Shwetha hanson ne-ethinyl 1-30 ity of estradiol 00:00: [place] 1-20 mg-mcg 00 Medical per tablet Branch norethindro 2020-0 2- No Unive rs ne-ethinyl 11-25 ity of estradiol 00:00: 00:00 [place] 1-20 mg-mcg 00 :00 Medical per tablet Branch MY WAY 1.5 2020-0 Yes Univers mg tablet 1-20 ity of 00:00: [place] [facility] MY WAY 1.5 2020-0 Yes Univers mg tablet 1-20 ity of 00:00: [place] [facility] MY WAY 1.5 2020-0 Yes Univers mg tablet 1-20 ity of 00:00: [facility] MY WAY 1.5 2020-0 Yes Univers mg tablet 1-20 ity of 00:00: [facility] MY WAY 1.5 2020-0 Yes Univers mg tablet 1-20 ity of 00:00: [facility] MY WAY 1.5 2020-0 Yes Univers mg tablet 1-20 ity of 00:00: [facility] MY WAY 1.5 2020-0 Yes Univers mg tablet 1-20 ity of 00:00: [facility] MY WAY 1.5 2020-0 Yes Univers mg tablet 1-20 ity of 00:00: [facility] MY WAY 1.5 2020-0 Yes Univers mg tablet 1-20 ity of 00:00: [facility] MY WAY 1.5 2020-0 Yes Univers mg tablet 1-20 ity of 00:00: [facility] MY WAY 1.5 2020-0 Yes Univers mg tablet 1-20 ity of 00:00: [facility] MY WAY 1.5 2020-0 Yes Univers mg tablet 1-20 ity of 00:00: [facility] MY WAY 1.5 2020-0 Yes Univers mg tablet 1-20 ity of 00:00: [facility] MY WAY 1.5 2020-0 Yes Univers mg tablet 1-20 ity of 00:00: [facility] MY WAY 1.5 2020-0 Yes Univers mg tablet 1-20 ity of 00:00: [facility] MY WAY 1.5 2020-0 Yes Univers mg tablet 1-20 ity of 00:00: [facility] MY WAY 1.5 2020-0 Yes [...] Univers mg tablet 1-20 ity of 00:00: [facility] MY WAY 1.5 2020-0 Yes Univers mg tablet 1-20 ity of 00:00: [facility] MY WAY 1.5 2020-0 Yes Univers mg tablet 1-20 ity of 00:00: [facility] MY WAY 1.5 2020-0 Yes Univers mg tablet 1-20 ity of 00:00: [facility] MY WAY 1.5 2020-0 Yes Univers mg tablet 1-20 ity of 00:00: [facility] MY WAY 1.5 2020-0 Yes Univers mg tablet 1-20 ity of 00:00: [facility] MY WAY 1.5 2020-0 Yes Univers mg tablet 1-20 ity of 00:00: [facility] MY WAY 1.5 2020-0 Yes Univers mg tablet 1-20 ity of 00:00: [facility] MY WAY 1.5 2020-0 Yes Univers mg tablet 1-20 ity of 00:00: [facility] MY WAY 1.5 2020-0 Yes Univers mg tablet 1-20 ity of 00:00: [place] [facility] MY WAY 1.5 2020-0 Yes Univers mg tablet 1-20 ity of 00:00: [facility] MY WAY 1.5 2020-0 Yes Univers mg tablet 1-20 ity of 00:00: [facility] MY WAY 1.5 2020-0 Yes Univers mg tablet 1-20 ity of 00:00: [place] [facility] MY WAY 1.5 2020-0 Yes Univers mg tablet 1-20 ity of 00:00: [facility] MY WAY 1.5 2020-0 Yes Univers mg tablet 1-20 ity of 00:00: [place] [facility] MY WAY 1.5 2020-0 Yes [...] Univers mg tablet 1-20 ity of 00:00: [place] [facility] MY WAY 1.5 2020-0 Yes Univers mg tablet 1-20 ity of 00:00: [facility] MY WAY 1.5 2020-0 Yes Univers mg tablet 1-20 ity of 00:00: [place] [facility] MY WAY 1.5 2020-0 Yes Univers mg tablet 1-20 ity of 00:00: [place] [facility] MY WAY 1.5 2020-0 Yes [...] of 20 mg 00:00: [place] tablet 00 [facility] Branch traZODONE 2019-0 Yes TAKE 1 Univer [...] MORNING Branch No known No Univers medications [facility] Immunizations Ordered Filled Immunization Date Status Comments [facility] e Immunization Name Name [facility] 2017-10-16 Completed University of 00:00:00 [facility] Influenza Virus 2017-10-16 Completed Universit y of Vaccine Quad IM 3+ 00:00:00 [facility] Tdap 2017-10-16 Completed University of 00:00:00 [facility] Influenza Virus 2017-10-16 Completed Universit y of Vaccine Quad IM 3+ 00:00:00 [facility] TDAP 2017-10-16 Completed University of 00:00:00 [facility] Influenza Virus 2017-10-16 Completed Universit y of Vaccine Quad IM 3+ 00:00:00 [facility] TDAP 2017-10-16 Completed University of 00:00:00 [facility] Influenza Virus 2017-10-16 Completed Universit y of Vaccine Quad IM 3+ 00:00:00 [facility] TDAP 2017-10-16 Completed University of 00:00:00 [facility] Influenza Virus 2017-10-16 Completed Universit y of Vaccine Quad IM 3+ 00:00:00 [facility] Tdap 2017-10-16 Completed University of 00:00:00 [facility] Influenza Virus 2017-10-16 Completed Universit y of Vaccine Quad IM 3+ 00:00:00 [facility] Tdap 2017-10-16 Completed University of 00:00:00 [facility] Influenza Virus 2017-10-16 Completed Universit y of Vaccine Quad IM 3+ 00:00:00 [facility] Tdap 2017-10-16 Completed University of 00:00:00 [facility] Influenza Virus 2017-10-16 Completed Universit y of Vaccine Quad IM 3+ 00:00:00 [facility] Tdap 2017-10-16 Completed University of 00:00:00 [facility] Influenza Virus 2017-10-16 Completed Universit y of Vaccine Quad IM 3+ 00:00:00 [facility] Tdap 2017-10-16 Completed University of 00:00:00 [facility] Influenza Virus 2017-10-16 Completed Universit y of Vaccine Quad IM 3+ 00:00:00 [facility] Tdap 2017-10-16 Completed University of 00:00:00 [facility] Influenza Virus 2017-10-16 Completed Universit y of Vaccine Quad IM 3+ 00:00:00 [facility] Tdap 2017-10-16 Completed University of 00:00:00 [facility] Influenza Virus 2017-10-16 Completed Universit y of Vaccine Quad IM 3+ 00:00:00 [facility] Tdap 2017-10-16 Completed University of 00:00:00 [facility] Influenza Virus 2017-10-16 Completed Universit y of Vaccine Quad IM 3+ 00:00:00 [facility] TDAP 2017-10-16 Completed University of 00:00:00 [facility] Influenza Virus 2017-10-16 Completed Universit y of Vaccine Quad IM 3+ 00:00:00 [facility] TDAP 2017-10-16 Completed University of 00:00:00 [facility] Influenza Virus 2017-10-16 Completed Universit y of Vaccine Quad IM 3+ 00:00:00 [facility] TDAP 2017-10-16 Completed University of 00:00:00 [facility] Influenza Virus 2017-10-16 Completed Universit y of Vaccine Quad IM 3+ 00:00:00 [facility] TDAP 2017-10-16 Completed University of 00:00:00 [facility] Influenza Virus 2017-10-16 Completed Universit y of Vaccine Quad IM 3+ 00:00:00 [facility] TDAP 2017-10-16 Completed University of 00:00:00 [facility] Tdap 2017-10-16 Completed University of 00:00:00 [facility] Influenza Virus 2017-10-16 Completed Universit y of Vaccine Quad IM 3+ 00:00:00 [facility] Influenza Virus 2017-10-16 Completed Universit y of Vaccine Quad IM 3+ 00:00:00 [facility] TDAP 2017-10-16 Completed University of 00:00:00 [facility] Influenza Virus 2017-10-16 Completed Universit y of Vaccine Quad IM 3+ 00:00:00 [facility] TDAP 2017-10-16 Completed University of 00:00:00 [facility] Influenza Virus 2017-10-16 Completed Universit y of Vaccine Quad IM 3+ 00:00:00 [facility] TDAP 2017-10-16 Completed University of 00:00:00 [facility] Influenza Virus 2017-10-16 Completed Universit y of Vaccine Quad IM 3+ 00:00:00 [facility] TDAP 2017-10-16 Completed University of 00:00:00 [facility] Influenza Virus 2017-10-16 Completed Universit y of Vaccine Quad IM 3+ 00:00:00 [facility] TDAP 2017-10-16 Completed University of 00:00:00 [facility] Influenza Virus 2017-10-16 Completed Universit y of Vaccine Quad IM 3+ 00:00:00 [facility] Tdap 2017-10-16 Completed University of 00:00:00 [facility] Influenza Virus 2017-10-16 Completed Universit y of Vaccine Quad IM 3+ 00:00:00 [facility] TDAP 2017-10-16 Completed University of 00:00:00 [facility] Influenza Virus 2017-10-16 Completed Universit y of Vaccine Quad IM 3+ 00:00:00 [facility] TDAP 2017-10-16 Completed University of 00:00:00 [facility] Influenza Virus 2017-10-16 Completed Universit y of Vaccine Quad IM 3+ 00:00:00 [facility] TDAP 2017-10-16 Completed University of 00:00:00 [facility] Influenza Virus 2017-10-16 Completed Universit y of Vaccine Quad IM 3+ 00:00:00 [facility] TDAP 2017-10-16 Completed University of 00:00:00 [facility] Influenza Virus 2017-10-16 Completed Universit y of Vaccine Quad IM 3+ 00:00:00 [facility] TDAP 2017-10-16 Completed University of 00:00:00 [facility] Influenza Virus 2017-10-16 Completed Universit y of Vaccine Quad IM 3+ 00:00:00 [facility] TDAP 2017-10-16 Completed University of 00:00:00 [facility] Influenza Virus 2017-10-16 Completed Universit y of Vaccine Quad IM 3+ 00:00:00 [facility] TDAP 2017-10-16 Completed University of 00:00:00 [facility] Influenza Virus 2017-10-16 Completed Universit y of Vaccine Quad IM 3+ 00:00:00 [facility] TDAP 2017-10-16 Completed University of 00:00:00 [facility] Influenza Virus 2017-10-16 Completed Universit y of Vaccine Quad IM 3+ 00:00:00 [facility] TDAP 2017-10-16 Completed University of 00:00:00 [facility] Influenza Virus 2017-10-16 Completed Universit y of Vaccine Quad IM 3+ 00:00:00 [facility] Tdap 2017-10-16 Completed University of 00:00:00 [facility] Influenza Virus 2017-10-16 Completed Universit y of Vaccine Quad IM 3+ 00:00:00 [facility] TDAP 2017-10-16 Completed University of 00:00:00 [facility] Influenza Virus 2017-10-16 Completed Universit y of Vaccine Quad IM 3+ 00:00:00 [facility] TDAP 2017-10-16 Completed University of 00:00:00 [facility] Influenza Virus 2017-10-16 Completed Universit y of Vaccine Quad IM 3+ 00:00:00 [facility] TDAP 2017-10-16 Completed University of 00:00:00 [facility] Influenza Virus 2017-10-16 Completed Universit y of Vaccine Quad IM 3+ 00:00:00 [facility] TDAP 2017-10-16 Completed University of 00:00:00 [facility] Influenza Virus 2017-10-16 Completed Universit y of Vaccine Quad IM 3+ 00:00:00 [facility] TDAP 2017-10-16 Completed University of 00:00:00 [facility] Influenza Virus 2017-10-16 Completed Universit y of Vaccine Quad IM 3+ 00:00:00 [facility] TDAP 2017-10-16 Completed University of 00:00:00 [facility] Influenza Virus 2017-10-16 Completed Universit y of Vaccine Quad IM 3+ 00:00:00 [facility] TDAP 2017-10-16 Completed University of 00:00:00 [facility] Influenza Virus 2017-10-16 Completed Universit y of Vaccine Quad IM 3+ 00:00:00 [facility] Tdap 2017-10-16 Completed University of 00:00:00 [facility] Influenza Virus 2017-10-16 Completed Universit y of Vaccine Quad IM 3+ 00:00:00 [facility] TDAP 2017-10-16 Completed University of 00:00:00 [facility] Influenza Virus 2017-10-16 Completed Universit y of Vaccine Quad IM 3+ 00:00:00 [facility] TDAP 2017-10-16 Completed University of 00:00:00 [facility] Influenza Virus 2017-10-16 Completed Universit y of Vaccine Quad IM 3+ 00:00:00 [facility] TDAP 2017-10-16 Completed University of 00:00:00 [facility] Influenza Virus 2017-10-16 Completed Universit y of Vaccine Quad IM 3+ 00:00:00 [facility] TDAP 2017-10-16 Completed University of 00:00:00 [facility] Influenza Virus 2017-10-16 Completed Universit y of Vaccine Quad IM 3+ 00:00:00 [facility] Tdap 2017-10-16 Completed University of 00:00:00 [facility] TDAP 2017-10-16 Completed University of 00:00:00 [facility] Influenza Virus 2017-10-16 Completed Universit y of Vaccine Quad IM 3+ 00:00:00 [facility] Influenza Virus 2017-10-16 Completed Universit y of Vaccine Quad IM 3+ 00:00:00 [facility] TDAP 2017-10-16 Completed University of 00:00:00 [facility] Influenza Virus 2017-10-16 Completed Universit y of Vaccine Quad IM 3+ 00:00:00 [facility] TDAP 2017-10-16 Completed University of 00:00:00 [facility] Influenza Virus 2017-10-16 Completed Universit y of Vaccine Quad IM 3+ 00:00:00 [facility] TDAP 2016-01-18 Completed University of 00:00:00 [facility] Tdap 2016-01-18 Completed University of 00:00:00 [facility] TDAP 2016-01-18 Completed University of 00:00:00 [facility] TDAP 2016-01-18 Completed University of 00:00:00 [facility] TDAP 2016-01-18 Completed University of 00:00:00 [facility] Tdap 2016-01-18 Completed University of 00:00:00 [facility] Tdap 2016-01-18 Completed University of 00:00:00 [place] [facility] Tdap 2016-01-18 Completed University of 00:00:00 [facility] Tdap 2016-01-18 Completed University of 00:00:00 [facility] Tdap 2016-01-18 Completed University of 00:00:00 [facility] Tdap 2016-01-18 Completed University of 00:00:00 [facility] Tdap 2016-01-18 Completed University of 00:00:00 [facility] Tdap 2016-01-18 Completed University of 00:00:00 [facility] TDAP 2016-01-18 Completed University of 00:00:00 [facility] TDAP 2016-01-18 Completed University of 00:00:00 [facility] TDAP 2016-01-18 Completed University of 00:00:00 [facility] TDAP 2016-01-18 Completed University of 00:00:00 [facility] Tdap 2016-01-18 Completed University of 00:00:00 [facility] TDAP 2016-01-18 Completed University of 00:00:00 [place] [facility] TDAP 2016-01-18 Completed University of 00:00:00 [facility] TDAP 2016-01-18 Completed University of 00:00:00 [place] [facility] TDAP 2016-01-18 Completed University of 00:00:00 [facility] TDAP 2016-01-18 Completed University of 00:00:00 [facility] Tdap 2016-01-18 Completed University of 00:00:00 [place] [facility] TDAP 2016-01-18 Completed University of 00:00:00 [facility] TDAP 2016-01-18 Completed University of 00:00:00 [place] [facility] TDAP 2016-01-18 Completed University of 00:00:00 [facility] TDAP 2016-01-18 Completed University of 00:00:00 [facility] TDAP 2016-01-18 Completed University of 00:00:00 [facility] TDAP 2016-01-18 Completed University of 00:00:00 [facility] TDAP 2016-01-18 Completed University of 00:00:00 [facility] TDAP 2016-01-18 Completed University of 00:00:00 [facility] TDAP 2016-01-18 Completed University of 00:00:00 [facility] Tdap 2016-01-18 Completed University of 00:00:00 [facility] TDAP 2016-01-18 Completed University of 00:00:00 [facility] TDAP 2016-01-18 Completed University of 00:00:00 [facility] TDAP 2016-01-18 Completed University of 00:00:00 [facility] TDAP 2016-01-18 Completed University of 00:00:00 [facility] TDAP 2016-01-18 Completed University of 00:00:00 [facility] TDAP 2016-01-18 Completed University of 00:00:00 [facility] TDAP 2016-01-18 Completed University of 00:00:00 [facility] Tdap 2016-01-18 Completed University of 00:00:00 [place] [facility] TDAP 2016-01-18 Completed University of 00:00:00 [facility] TDAP 2016-01-18 Completed University of 00:00:00 [facility] TDAP 2016-01-18 Completed University of 00:00:00 [facility] TDAP 2016-01-18 Completed University of 00:00:00 [facility] TDAP 2016-01-18 Completed University of 00:00:00 [facility] Tdap 2016-01-18 Completed University of 00:00:00 [facility] TDAP 2016-01-18 Completed University of 00:00:00 [place] [facility] TDAP 2016-01-18 Completed University of 00:00:00 [place] [facility] TDAP 2016-01-18 Completed University of 00:00:00 [place] [facility] TDAP 2014-05-18 Completed University of 00:00:00 [place] [facility] Tdap 2014-05-18 Completed University of 00:00:00 [place] [facility] TDAP 2014-05-18 Completed University of 00:00:00 [place] [facility] TDAP 2014-05-18 Completed University of 00:00:00 [place] [facility] TDAP 2014-05-18 Completed University of 00:00:00 [place] [facility] Tdap 2014-05-18 Completed University of 00:00:00 [place] [facility] Tdap 2014-05-18 Completed University of 00:00:00 [place] [facility] Tdap 2014-05-18 Completed University of 00:00:00 [facility] Tdap 2014-05-18 Completed University of 00:00:00 [facility] Tdap 2014-05-18 Completed University of 00:00:00 [place] [facility] Tdap 2014-05-18 Completed University of 00:00:00 [facility] Tdap 2014-05-18 Completed University of 00:00:00 [facility] Tdap 2014-05-18 Completed University of 00:00:00 [facility] Tdap 2014-05-18 Completed University of 00:00:00 [facility] TDAP 2014-05-18 Completed University of 00:00:00 [facility] TDAP 2014-05-18 Completed University of 00:00:00 [facility] TDAP 2014-05-18 Completed University of 00:00:00 [place] [facility] TDAP 2014-05-18 Completed University of 00:00:00 [facility] Tdap 2014-05-18 Completed University of 00:00:00 [facility] TDAP 2014-05-18 Completed University of 00:00:00 [facility] TDAP 2014-05-18 Completed University of 00:00:00 [facility] TDAP 2014-05-18 Completed University of 00:00:00 [facility] TDAP 2014-05-18 Completed University of 00:00:00 [facility] Tdap 2014-05-18 Completed University of 00:00:00 [place] [facility] TDAP 2014-05-18 Completed University of 00:00:00 [facility] TDAP 2014-05-18 Completed University of 00:00:00 [place] [facility] TDAP 2014-05-18 Completed University of 00:00:00 [place] [facility] TDAP 2014-05-18 Completed University of 00:00:00 [place] [facility] TDAP 2014-05-18 Completed University of 00:00:00 [place] [facility] TDAP 2014-05-18 Completed University of 00:00:00 [facility] TDAP 2014-05-18 Completed University of 00:00:00 [facility] TDAP 2014-05-18 Completed University of 00:00:00 [place] [facility] TDAP 2014-05-18 Completed University of 00:00:00 [facility] Tdap 2014-05-18 Completed University of 00:00:00 [facility] TDAP 2014-05-18 Completed University of 00:00:00 [facility] TDAP 2014-05-18 Completed University of 00:00:00 [facility] TDAP 2014-05-18 Completed University of 00:00:00 [facility] TDAP 2014-05-18 Completed University of 00:00:00 [facility] TDAP 2014-05-18 Completed University of 00:00:00 [facility] TDAP 2014-05-18 Completed University of 00:00:00 [facility] TDAP 2014-05-18 Completed University of 00:00:00 [facility] TDAP 2014-05-18 Completed University of 00:00:00 [facility] Tdap 2014-05-18 Completed University of 00:00:00 [facility] TDAP 2014-05-18 Completed University of 00:00:00 [facility] TDAP 2014-05-18 Completed University of 00:00:00 [facility] TDAP 2014-05-18 Completed University of 00:00:00 [facility] TDAP 2014-05-18 Completed University of 00:00:00 [facility] TDAP 2014-05-18 Completed University of 00:00:00 [facility] Tdap 2014-05-18 Completed University of 00:00:00 [facility] TDAP 2014-05-18 Completed University of 00:00:00 [facility] TDAP 2014-05-18 Completed University of 00:00:00 [facility] TDAP 2014-05-18 Completed University of 00:00:00 [facility] Pneumococcal 2008-05-11 Completed University o f Polysaccharide, 00:00:00 [place] [facility] PPSV23 (PNEUMOVAX) Branch Pneumococcal 2008-05-11 [...] 15:56:00 137 mm[Hg] Univer sity of pressure [facility] Diastolic blood 2022-07-17 15:56:00 79 mm[Hg] Unive rsity of pressure [facility] Heart rate 2022-07-17 15:56:00 73 /min [facility] Body temperature 2022-07-17 15:56:00 37 Zainab Univ [facility] [place] [facility] Respiratory rate 2022-07-17 15:56:00 18 /min [facility] [place] [facility] Body height 2022-07-17 15:56:00 154.9 cm [facility] [place] [facility] Body weight 2022-07-17 15:56:00 123.242 kg [facility] [place] [facility] BMI 2022-07-17 15:56:00 51.34 kg/m2 [facility] [place] [facility] Oxygen saturation in 2022-07-17 15:56:00 95 /min University of Arterial blood by [place] [employer] [facility] Pulse oximetry Branch Systolic blood 2022-06-13 00:43:00 152 mm[Hg] Univer sity of pressure [facility] Diastolic blood 2022-06-13 00:43:00 98 mm[Hg] Unive rsity of pressure [facility] Heart rate 2022-06-13 00:41:00 90 /min [facility] [place] [facility] Body temperature 2022-06-13 00:41:00 37.17 Zainab [facility] [place] [facility] Respiratory rate 2022-06-13 00:41:00 16 /min [facility] [place] [facility] Body height 2022-06-13 00:41:00 154.9 cm [facility] [place] [facility] Body weight 2022-06-13 00:41:00 126.508 kg [facility] [place] [facility] BMI 2022-06-13 00:41:00 52.70 kg/m2 [facility] [place] [facility] Oxygen saturation in 2022-06-13 00:41:00 97 /min University of Arterial blood by [facility] P[facility] oximetry Branch Systolic blood 2022-04-14 18:03:00 126 mm[Hg] Univer sity of pressure [facility] Diastolic blood 2022-04-14 18:03:00 87 mm[Hg] Unive rsity of pressure [facility] Heart rate 2022-04-14 18:03:00 83 /min [facility]i [facility] Body temperature 2022-04-14 18:03:00 36.89 Zainab Univ ersity of [facility] Respiratory rate 2022-04-14 18:03:00 18 /min Univ ersity [facility] Body height 2022-04-14 18:03:00 154.9 cm [facility] Body weight 2022-04-14 18:03:00 126.508 kg [facility] BMI 2022-04-14 18:03:00 52.70 kg/m2 [facility] Oxygen saturation in 2022-04-14 18:03:00 97 /min [facility] blood by [facility] Body weight 2022-04-03 18:36:00 126.554 kg [facility] BMI 2022-04-03 18:36:00 52.72 kg/m2 [facility] Oxygen saturation in 2022-04-03 18:36:00 97 /min University of Arterial blood by [facility] Pulse oximetry Branch Systolic blood 2022-04-03 18:36:00 146 mm[Hg] Univer sity of [facility] Diastolic blood 2022-04-03 18:36:00 86 mm[Hg] Unive rsity of [facility] Heart rate 2022-04-03 18:36:00 84 /min [facility] Body temperature 2022-04-03 18:36:00 37.11 Zainab Univ [facility] Respiratory rate 2022-04-03 18:36:00 18 /min Univ ers[facility] Body height 2022-04-03 18:36:00 154.9 cm [facility] Systolic blood 2022-03-19 14:01:00 154 mm[Hg] Univer sity of [facility] Diastolic blood 2022-03-19 14:01:00 82 mm[Hg] Unive rsity of [facility] Heart rate 2022-03-19 14:01:00 61 /min [facility] Body temperature 2022-03-19 14:01:00 36.83 Zainab Univ [facility] Respiratory rate 2022-03-19 14:01:00 18 /min Univ ers[facility] Body height 2022-03-19 14:01:00 154.9 cm [facility] Body weight 2022-03-19 14:01:00 124.739 kg [facility] BMI 2022-03-19 14:01:00 51.96 kg/m2 [facility] Oxygen saturation in 2022-03-19 14:01:00 100 /min [facility] by [place] [facility] Systolic blood 2021-10-01 18:26:00 111 mm[Hg] Univer sity of [facility] Diastolic blood 2021-10-01 18:26:00 76 mm[Hg] Unive rsity of [facility] Heart rate 2021-10-01 18:26:00 103 /min [facility] Body temperature 2021-10-01 18:26:00 36.89 Zainab Univ [facility] Respiratory rate 2021-10-01 18:26:00 16 /min Univ [facility] Body height 2021-10-01 18:26:00 154.9 cm [facility] Body weight 2021-10-01 18:26:00 129.048 kg [facility] BMI 2021-10-01 18:26:00 53.76 kg/m2 [facility] Oxygen saturation in 2021-10-01 18:26:00 100 /min [facility] blood by [place] [facility] Heart rate 2020-08-04 21:50:00 74 /min [facility] Respiratory rate 2020-08-04 21:50:00 23 /min Univ ers[facility] Oxygen saturation in 2020-08-04 21:50:00 95 /min [facility]ial blood by [place] [facility] Systolic blood 2020-08-04 21:35:00 106 mm[Hg] Univer [facility]ity of [facility] Diastolic blood 2020-08-04 21:35:00 63 mm[Hg] Unive rsity of [facility] Body temperature 2020-08-04 20:49:00 36.5 Zainab Univ [facility] Body height 2020-08-04 18:08:00 154.9 cm [facility] Body weight 2020-08-04 18:08:00 124.739 kg [facility] BMI 2020-08-04 18:08:00 51.96 kg/m2 [facility] Heart rate 2020-08-04 21:50:00 74 /min Universi ty of [facility] Respiratory rate 2020-08-04 21:50:00 23 /min Univ ersity of [facility] Oxygen saturation in 2020-08-04 21:50:00 95 /min University of Arterial blood by [facility] Pulse oximetry Branch Systolic blood 2020-08-04 21:35:00 106 mm[Hg] Univer sity of pressure [facility] Diastolic blood 2020-08-04 21:35:00 63 mm[Hg] Unive rsity of pressure [facility] Body temperature 2020-08-04 20:49:00 36.5 Zainab Univ ersity of [facility] Body height 2020-08-04 18:08:00 154.9 cm Universi ty of [facility] Body weight 2020-08-04 18:08:00 124.739 kg Universi ty of [facility] BMI 2020-08-04 18:08:00 51.96 kg/m2 Universi ty of [facility] Systolic blood 2020-06-05 18:07:00 123 mm[Hg] Univer sity of pressure [facility] Diastolic blood 2020-06-05 18:07:00 75 mm[Hg] Unive rsity of pressure [facility] Heart rate 2020-06-05 18:07:00 70 /min Universi ty of [facility] Body temperature 2020-06-05 18:07:00 36.72 Zainab Univ ersity of [facility] Respiratory rate 2020-06-05 18:07:00 16 /min Univ ersity of [facility] Body height 2020-06-05 18:07:00 156.2 cm Universi ty of [facility] Body weight 2020-06-05 18:07:00 129.91 kg [facility] BMI 2020-06-05 18:07:00 53.24 kg/m2 Universi ty of [facility] Body temperature 2020-05-31 20:10:00 36 Zainab Univ ersity of [facility] Body weight 2020-05-31 20:10:00 128.822 kg Universi ty of [facility] BMI 2020-05-31 20:10:00 53.66 kg/m2 Universi ty of [facility] Systolic blood 2020-04-06 18:35:00 138 mm[Hg] Univer sity of [facility] Diastolic blood 2020-04-06 18:35:00 83 mm[Hg] Unive rsity of [facility] Heart rate 2020-04-06 18:35:00 65 /min Universi ty [facility] Respiratory rate 2020-04-06 18:35:00 18 /min Univ ersity of [facility] Body height 2020-04-06 18:35:00 154.9 cm Universi ty [facility] Body weight 2020-04-06 18:35:00 122.018 kg Universi ty [facility] BMI 2020-04-06 18:35:00 50.83 kg/m2 Universi ty [facility] Systolic blood 2020-03-16 19:12:00 120 mm[Hg] Univer sity of [facility] Diastolic blood 2020-03-16 19:12:00 80 mm[Hg] Unive rsity of [facility] Body height 2020-03-16 19:12:00 154.9 cm Universi ty of [facility] Body weight 2020-03-16 19:12:00 122.018 kg Universi ty [facility] BMI 2020-03-16 19:12:00 50.83 kg/m2 Universi ty [facility] Body height 2019-12-23 16:00:00 154.9 cm Universi ty [facility] Body weight 2019-12-23 16:00:00 122.018 kg Universi ty [facility] BMI 2019-12-23 16:00:00 50.83 kg/m2 Universi [facility] Procedures Procedure Date / Time Performing Clinician Source Performed POCT TEST 2022-07-17 16:33:00 Nannette Juan [facility] POCT URINALYSIS 2022-07-17 16:15:00 Nannette Juan [facility] XR KNEE 3 VW LEFT 2022-03-19 14:44:16 Lottie Garvin [facility] POCT TEST 2022-03-19 14:34:00 Lottie Garvin [facility] COMP. METABOLIC PANEL 2022-03-19 14:27:00 Lottie Garvin [facility] ([id number]) [facility] CBC WITH DIFF 2022-03-19 14:27:00 Lottie Garvin [place] [facility] PROTHROMBIN TIME / INR 2022-03-19 14:27:00 Lottie Garvin [facility] ACTIVATED PARTIAL 2022-03-19 14:27:00 Lottie Garvin [facility] THRMPLAS REMEDIOS [facility] URINALYSIS 2022-03-19 14:27:00 Lottie Garvin [place] [facility] CONSENT/REFUSAL FOR 2022-03-19 13:50:09 Doctor Unassigned, No [facility] CONSENT/REFUSAL FOR 2021-10-01 18:15:24 [facility]assigned, [facility] [place] INTUBATION 2020-08-04 19:57:02 Luzma Almanza [facility] ASSIGNMENT OF BENEFITS 2020-08-04 16:10:14 Doctor Unassigned, No [facility] DISCLOSURE AND CONSENT, 2020-07-05 05:01:00 Doctor Unassigned, N o [facility] MEDICAL AND SURGICAL [facility] Medical [facility] nc PROCEDURES HIV 1/2 AG-AB WITH 2020-06-05 19:04:00 Casie Ortega [facility] REFLEX [facility] GALV ONLY - SYPHILIS 2020-06-05 19:04:00 Casie Ortega [facility] IGG/IGM [facility] [place] XR WRIST 3+ VW LEFT 2020-05-31 19:46:46 [facility] LEFT WO 2020-03-31 20:18:12 Kami Bernard [facility] CONTRAST [facility] REFERRAL- 2020-03-23 05:01:00 Doctor Unassigned, No [facility] REQUEST/RESPONSE [facility] SEDIMENTATION RATE 2019-12-23 17:06:00 Kami Bernard [facility] CBC WITH DIFFERENTIAL 2019-12-23 17:06:00 Kami Bernard [facility] ASSIGNMENT OF BENEFITS 2019-12-23 15:57:07 Doctor Unassigned, No [facility] DME/SUPPLY JUSTIFICATION 2019-05-27 05:01:00 Doctor Unassigned, No [facility] Encounters Start End Encounter Admission Attending Care Care Encounter Source Date/Time Date/Time Type Type Clinicians Facility Department ID 2021-08-24 Outpatient ISABELL [facility] [id number] Univers 19:16:32 TOREY her [facility] 2022-07-20 2022-07-20 Telephone [place] [facility] [id number] Univers 00:00:00 00:00:00 Bello [facility] 350.1.13.10 it y of [facility] 4.2.7.2.686 Willem as ALEK?BLEA [id number] [address] MEDICAL OFFICE [facility] 2022-07-17 2022-07-17 Outpatient R DRAKE [facility] [id number] Univers 11:15:00 11:29:07 NANNETTE her [facility] 2022-07-17 2022-07-17 [facility] 1.2.840.114 [id number] Univers 11:15:00 11:29:07 Care [place] [id number] it y of [place] 4.2.7.2.686 Willem as ALEK?BLEA [id number] [address] OFFICE [facility] 2022-06-12 2022-06-12 Outpatient R TONNY [facility] [id number] Univers 19:20:00 19:47:11 TOREY her [facility] 2022-06-12 2022-06-12 Urgent Torey Cesar [facility] .2.840.114 [id number] Univers 19:20:00 19:47:11 Care Niall, [facility] [id number] ity of [place] 4.2.7.2.686 Willem as ALEK?BLEA [id number] [address] MEDICAL OFFICE [facility] 2022-04-14 2022-04-14 Outpatient R STEVE [facility] [id number] Univers 12:40:00 13:52:43 REGLA andersen [facility] 2022-04-14 2022-04-14 Urgent Regla Baez [facility] 1.2.840 .114 [id number] Univers 12:40:00 13:52:[address] [facility] [id number] ity of [place] 4.2.7.2.686 [place]m as ALEK?BLEA [id number] [address] MEDICAL OFFICE [facility] 2022-04-03 2022-04-03 Urgent [place] [facility] 1.2.840.114 [id number] Univers 14:20:00 14:20:[address] [facility] 350.1.13.10 it y of [place] 4.2.7.2.686 [place] as ALEK?BLEA [id number] [address] OFFICE [facility] 2022-04-03 2022-04-03 Outpatient R HOUSTON [facility] [id number] Univers 14:20:00 14:03:55 BELLO ity [facility] 2022-03-19 2022-03-19 Emergency X BHARATHI [facility] ERT [id number] Univers 09:01:00 11:10:00 LOTTIE [facility] 2022-03-19 2022-03-19 Emergency Bharathi [facility] 1.2.502.551 [id number] Univers 09:01:00 11:10:00 [facility] 350.1.13.10 i ty [place].7.2.686 [place] [id number] [facility] 084 [place] 2022-03-19 2022-03-19 Orders Doctor LEMA 1.2.840.114 [id number] Univers 00:00:00 00:00:00 Only Unassigned, LUZ 350.1.13.10 ity of [place] [facility] 4.2.7.2.686 Willem as [id number] [facility] 009 [place] 2021-10-01 2021-10-01 Outpatient Oli JUAN [facility] [id number] Univers 15:00:00 13:13:59 NANNETTE [facility] 2021-10-01 2021-10-01 [facility] 1.2.840.114 [id number] Univers 12:15:40 13:13:59 Care [facility] 350.1.13.10 it y of [place] 4.2.7.2.686 [place] as ALEK?BLEA [id number] [address] OFFICE [facility] 2021-10-01 2021-10-01 Orders Doctor TOREY 1.2.840.114 [id number] Univers 00:00:00 00:00:00 Only Unassigned, LUZ 350.1.13.10 ity of [place] [facility] 4.2.7.2.686 Willem as [id number] [facility] 009 Branch 2021-01-15 2021-01-15 Patient Naren [facility] 1.2.840.114 [id number] Univers 00:00:00 00:00:00 Outreach Harjit PRIMARY 350.1.13.10 i ty of Home [place] [id number] Nv dical [address] [place] [address] 2021-01-15 2021-01-15 Patient Naren [facility] 1.2.840.114 [id number] 00:00:00 00:00:00 Outreach Harjit PRIMARY 350.1.13.10 Home CARE 4.2.7.2.686 PAVILLION [id number] [facility] 2020-08-23 2020-08-23 Outpatient R [facility] [id number] Univers 14:00:00 14:00:00 TOREY ity of [facility] 2020-08-09 2020-08-09 Telephone [facility] 1.2.840.114 [id number] Univers 00:00:00 00:00:00 [place] SPECIALTY 350.1.13.10 ity of [place].2.[place] C[place] AT [id number] Nv dicaz [address] 2020-08-09 2020-08-09 Telephone [facility] 1.2.840.114 [id number] 00:00:00 00:00:00 [place] SPECIALTY 350.1.13.10 CARE 4.2.7.2.686 CENTER AT [id number] [place] [address] [place] [address] 2020-08-04 2020-08-04 [facility] 1.2.840.114 [id number] Univers 11:12:00 17:25:00 Encounter [place] Health 350.1.13.10 ity of [place].7.2.686 [place] [facility] [id number] [address] ([facility]) 2020-08-04 2020-08-04 Hospital Isabell [facility] 1.2.840.114 [id number] 11:12:00 17:25:00 Encounter Torey Bryan 350.1.13.10 Lecharity 4.2.7.2.686 [facility] [id number] [address]) 2020-08-04 2020-08-04 Anesthesia Ashley Alas [facility] 1.2.840 .114 [id number] Univers 14:32:00 15:44:00 Mirza [place] SPECIALTY 350.1.13.1 0 ity of [facility] 4.2.7.2.686 [facility] CENTER AT [id number] Nv dical [address] 2020-08-04 2020-08-04 Anesthesia Ashley Alas [facility] 1.2.840 .114 [id number] 14:32:00 15:44:00 Mirza [place] SPECIALTY 350.1.13.1 0 CARE 4.2.7.2.686 CENTER AT [id number] BR[place] Antonio [facility] 2020-08-04 2020-08-04 Orders Doctor LEMA 1.2.840.114 [id number] Univers 00:00:00 00:00:00 Only Unassigned, LUZ 350.1.13.10 ity of [place] [facility] 4.2.7.2.686 Willem [id number] [address] 2020-08-04 2020-08-04 Orders Doctor LEMA 1.2.840.114 [id number] 00:00:00 00:00:00 Only Unassigned, LUZ 350.1.13.10 [place] [facility] 4.2.7.2.686 [id number] 009 2020-08-03 2020-08-03 Outpatient R [facility] [id number] Univers 15:30:00 15:30:00 ity of [facility] 2020-08-03 2020-08-03 Laboratory Only, Adc Test [facility] 1.2.840. 114 [id number] Univers 14:49:11 15:04:01 Only Torey Whyte 350.1.13.10 ity of [place] 4.2.7.2.686 [facility] [id number] [address] 2020-08-03 2020-08-03 Laboratory Only, Adc [facility] 1.2.840.114 [id number] 14:49:11 15:04:01 Only Test [place] 350.1.13.10 [place] 4.2.7.2.686 [place] [id number] [facility] 2020-08-02 2020-08-02 [facility] 1.2.840.114 [id number] Univers 00:00:00 00:00:00 [place] SPECIALTY 350.1.13.10 ity of [place].2.[place] AT [id number] Nv barbara HUERTA [address] [place] [address] 2020-08-02 2020-08-02 Telephone [facility] 1.2.840.114 [id number] Univers 00:00:00 00:00:00 [place] SPECIALTY 350.1.13.10 ity of C[place] 4.2.7.2.686 [place] C[place] AT [phone] Nv barbara HUERTA [address] [place] [address] 2020-07-19 2020-07-19 Telephone [facility] 1.2.840.114 [id number] Univers 00:00:00 00:00:00 [place] SPECIALTY 350.1.13.10 ity of C[place] 4.2.7.2.686 [place] CENTER AT [id number] Nv floryhossein HOSKINSJulio C 198 [facility] 2020-07-05 2020-07-05 Telemedici [facility] 1.2.840.114 [id number] Univers 11:28:58 11:38:58 ne Visit [place] SPECIALTY 350.1.13.10 ity of C[place] 4.2.7.2.686 [place] CENTER AT [id number] Nv barbara HUERTA [address] [place] [address] 2020-07-05 2020-07-05 Outpatient R [facility], [facility] [id number] Univers 11:10:00 11:10:00 TOREY ity of [facility] 2020-07-05 2020-07-05 Orders Doctor TOREY 1.2.840.114 [id number] Univers 00:00:00 00:00:00 Only Unassigned, LUZ 350.1.13.10 ity of [place] [facility] 4.2.7.2.686 W[place] as [id number] [address] 2020-06-21 2020-06-21 Outpatient R FARIDA [facility] [id number] Univers 13:30:00 13:30:00 RUEL ity [facility] 2020-06-19 2020-06-19 Security Monitor Lab, Ang-Rmchp [facility] 1.2.840. 114 [id number] Univers 16:19:58 16:20:05 Visit Casie Ortega R [employer] REGISTRAR 350.1.13.10 ity of [facility] 4.2.7.2.686 Willem as MATERNAL [id number] Med ical & CHILD [address] [place] [address] 2020-06-19 2020-06-19 Outpatient R ISABELL [facility] [id number] Univers 15:40:00 15:40:00 TOREY ity [facility] 2020-06-19 2020-06-19 [facility] [id number] Univers 15:15:00 15:15:00 CASIE ity o f [facility] 2020-06-19 2020-06-19 [facility]phone [facility] 1.2.840.114 [id number] Univers 00:00:00 00:00:00 Torey [facility] 350.1.13.10 it y of C[place] 4.2.7.2.686 [place] KARE[place] [id number] [address] 2020-06-12 2020-06-12 [facility]phone [facility] 1.2.871.336 [id number] Univers 00:00:00 00:00:00 Casie Baird H[employer] S[employer]ES REGISTRAR 350.1.13.10 ity of [facility] 4.2.7.2.686 [place] as MATERNAL [id number] Med ical & CHILD [address] [place] [address] 2020-06-06 2020-06-06 [facility]phone [facility] 1.2.814.246 [id number] Univers 00:00:00 00:00:00 Casie R [employer] S[employer]ES REGISTRAR 350.1.13.10 ity of [facility] 4.2.7.2.686 [place]m as MATERNAL [id number] Med ical & CHILD [address] [place] [address] 2020-06-05 2020-06-05 Office [facility] 1.2.840.114 [id number] Univers 12:48:43 14:03:05 Visit Casie Baird H[employer] S[employer]ES REGISTRAR 350.1.13.10 ity of REGIONAL 4.2.7.2.686 [place] as MATERNAL [id number] Med ical & CHILD 107 [facility] 2020-06-05 2020-06-05 Outpatient [facility] [id number] Univers 12:45:00 12:45:00 ACECYNDIE ity o f [facility] 2020-05-31 2020-05-31 [facility] 1.2.840.114 [id number] Univers 14:36:23 23:59:00 Encounter [place] SPECIALTY 350.1.13.10 ity of C[place]2.7.2.686 [place] AT [id number] Nv barbara HUERTA 809 [facility] 2020-05-31 2020-05-31 Office [facility] 1.2.222.121 [id number] Univers 14:17:05 15:56:27 Visit [place] SPECIALTY 350.1.13.10 ity of CARE 4.2.7.2.686 [place] C[place] AT [id number] Nv barbara HUERTA 198 [facility] 2020-05-31 2020-05-31 Outpatient [facility] [id number] Univers 14:30:00 14:30:00 TOREY [facility] 2020-04-12 2020-04-12 Outpatient R [facility] [id number] Univers 13:00:00 13:00:00 TOREY [facility] 2020-04-12 2020-04-12 Patient Doctor [facility] 1.2.840.114 [id number] Univers 00:00:00 00:00:00 Secure Msg Unassigned, HISTORIC SITES REGISTRAR 350.1.13.10 ity of [place] REGIONAL 4.2.7.2.686 Willem as MATERNAL [id number] Med ical & CHILD 107 [facility] 2020-04-06 2020-04-06 Outpatient R MARCO ANTONIO [facility] [id number] Univers 15:30:00 15:30:00 KAMI her [facility] 2020-04-06 2020-04-06 Office [facility] 1.2.817.291 [id number] Univers 13:33:51 14:02:35 Visit Kami Bryan 350.1.13.10 it y of Surgical 4.2.7.2.686 [place] as Specialti [phone] Nv dical es [address] [facility] 2020-03-31 2020-03-31 Outpatient [facility] [id number] Univers 14:26:45 23:59:00 KAMI itjulio c [facility] 2020-03-31 2020-03-31 [facility] 1.2.840.114 [id number] Univers 14:00:00 23:59:00 Encounter Kami Quinones HEALTH 350.1.13.10 ity of CLINICS [place].2.7.2.[place] [id number] [facility] 804 [place] 2020-03-23 2020-03-23 Orders Doctor TOREY 1.2.840.114 [id number] Univers 00:00:00 00:00:00 Only Unassigned, LUZ 350.1.13.10 ity of [place] [facility]PITAL 4.2.7.2.686 Willem as [id number] [facility] 009 [place] 2020-03-22 2020-03-22 Telephone [facility] 1.2.840.114 [id number] Univers 00:00:00 00:00:00 Kami [facility] 350.1.13.10 it y of Surgical 4.2.7.2.686 [place] as Specialti [id number] Nv dical es 198 [facility] 2020-03-16 2020-03-16 Office [facility] 1.2.670.321 [id number] Univers 14:10:26 14:24:02 Visit Kami [facility] 350.1.13.10 it y of Surgical 4.2.7.2.686 [place] as Specialti [id number] Nv dical es 198 [facility] 2020-03-16 2020-03-16 Outpatient [facility] [id number] Univers 14:15:00 14:15:00 KAMI her [facility] 2020-03-16 2020-03-16 Outpatient R MARCO ANTONIO [facility] [id number] Univers 13:15:00 13:15:00 KAMI her [facility] 2020-01-11 2020-01-11 Outpatient R MIGUEL [facility] [id number] Univers 13:45:00 13:45:00 JOHN her [facility] 2020-01-06 2020-01-06 Outpatient [facility] [id number] Univers 14:45:00 14:45:00 JOHN julio c [facility] 2019-12-30 2019-12-30 Outpatient R [facility] [id number] Univers 10:15:00 10:15:00 KAMI julio c [facility] 2019-12-30 2019-12-30 Patient Miguel [facility] 1.2.840.114 [id number] Univers 00:00:00 00:00:00 Secure Ms [facility] 350.1.13.10 ity of Surgical 4.2.7.2.686 [place] as Specialti [id number] Nv dical es [address] [facility] 2019-12-23 2019-12-23 Security Monitor Kelsey, Adc Lab Main [facility] 1.2.8 40.114 [id number] Univers 10:51:53 11:06:53 Visit Marco AntonioMartínjulio cesar Limaton 350.1.13.10 it[place] [phone] Nv dical nal 353 [facility] 2019-12-23 2019-12-23 Office Marco Antonio [facility] [id number] Univers 09:56:57 10:15:25 Visit Kami Ramos [facility] [id number] it y of Surgical 4.2.7.2.686 [place]illem as Specialti [phone] Nv dical es 198 [facility] 2019-12-23 2019-12-23 Outpatient R MARCO ANTONIO [facility] [id number] Univers 10:15:00 10:15:00 [facility] 2019-12-23 2019-12-23 Orders Doctor LEMA [id number] [id number] Univers 00:00:00 00:00:00 Only Unassigned, LUZ 350.1.13.10 ity of [facility] 4.2.7.2.686 [place]illem as [phone] [facility] [address] [place] 2019-05-27 2019-05-27 Orders Doctor TOREY 1.2.840.114 [id number] Univers 00:00:00 00:00:00 Only Unassigned, LUZ 350.1.13.10 ity of [facility] 4.2.7.2.686 Willem as [phone] [facility] 00[address] [place] 2019-05-27 2019-05-27 Telephone Leigh [facility] 1.2.564.065 [id number] Univers 00:00:00 00:00:00 Haja Cosby 350.1.13.10 i [place] [phone] Me dical nal 5 [facility] 2014-05-30 2014-05-30 Patient Doctor TOREY 1.2.840.114 [id number] Univers 00:00:00 00:00:00 Secure Msg Unassigned, LUZ 350.1.13.10 ity of [facility] 4.2.7.2.686 Willem as [phone] [facility] 044 [place] Results Test Description Test Time Test Comments Results Result Comments Source POCT TEST 2022-07-17 16:44:00 Test Item Value Reference Range Interpretation Comme nts POCT PREG (test code = 1605) Negative On board controls acceptable with C Line Yes (test code = 3574) POCT PREG LOT # (test code = 3575) [id number] POCT PREG TEST DATE (test code = 3576) FIONA (test code = FIONA) accurate development and interpretation of all internal controls Lab Interpretation (test code = 98173-0) Normal [facility] SPECIFIC [id number] 16:16:00 Test Item Value Reference Range Interpretation [...] 3267) Lab Interpretation (test code Normal = 09358-5) [facility] WITH [id number] 15:36:23 Test Item Value Reference Range Interpretation Comments WBC (test code = See_Comment H [Automated 8277-2) message] The sy stem which generated this result transmitted reference range : 4.30 - 11.10 10*3/?L. The reference range was not used to interpret this result as normal/abnormal . RBC (test code = See_Comment [Automated 319-8) message] The sy stem which generated this [...] RDW-SD (test code = 43.0 fL 39.0-49.9 25430-3) RDW-CV (test code = 13.8 % 12.0-15.5 788-0) PLT (test code = See_Comment [Automated 777-3) message] The sy stem which generated this result transmitted reference range : 166 - 358 10*3/ ?L. The reference r mariella was not used to interpret this result as normal/abnormal . MPV (test code = 10.8 fL 9.5-12.9 54967-6) NRBC/100 WBC (test See_Comment [Automat ed code = 5075001394) message] The system which generated this result transmitted reference range : 0.0 - 10.0 /100 WBCs. The refer ence range was not u sed to interpret th is result as normal/abnormal . NRBC x10^3 (test code <0.01 See_Comment [Auto mated = 5178634726) message] The s ystem which generated this result transmitted reference range : 10*3/?L. The reference range was not used to interpret this result as normal/abnormal . GRAN MAT (NEUT) % 59.6 % (test code = 770-8) IMM GRAN % (test code 0.40 % = 4300159913) LYMPH % (test code = 29.0 % 736-9) MONO % (test code = 7.7 % 5905-5) EOS % (test code = 2.9 % 713-8) BASO % (test code = 0.4 % 706-2) GRAN MAT x10^3(ANC) 8.31 10*3/uL 1.88-7.09 H (test code = 2924447367) IMM GRAN x10^3 (test 0.06 10*3/uL 0.00-0.06 code = 2206959122) LYMPH x10^3 (test code 4.05 10*3/uL 1.32-3.29 H = 731-0) MONO x10^3 (test code 1.07 10*3/uL 0.33-0.92 H = 742-7) EOS x10^3 (test code = 0.41 10*3/uL 0.03-0.39 H 711-2) BASO x10^3 (test code 0.05 10*3/uL 0.01-0.07 = 704-7) REACT LYMPHS (test Rare code = 3818513045) Lab Interpretation Abnormal (test code = 54924-2) [facility] [id number] 15:06:58 Test Item Value Reference Range Interpretation Comments APTT Patient (test See_Comment [Automat ed code = 3173-2) message] The system which generated this result transmitted reference range : 23 - 38 Seconds . The reference range was not used to interpr et this result as normal/abnormal . FIONA (test code = FIONA) The [facility] patient population mean normal value for aPTT is 30 seconds. Lab Interpretation Normal (test code = 55565-2) [facility] / [id number] 15:04:57 Test Item Value Reference Range Interpretation [...] tions. Lab Interpretation (test Normal code = 85405-0) [facility]. [facility]OLIC PANEL ([id number])2022-03-19 14:58:33 Test Item Value Reference Range Interpretation Comments NA (test code = 141 mmol/L 135-145 8278913463) K (test code = 4.3 mmol/L 3.5-5.0 9877417246) CL (test code = 107 mmol/L 98-108 4174415576) CO2 TOTAL (test code = 24 mmol/L 23-31 6001500651) AGAP (test code = 2-16 9931271436) BUN (test code = 11 mg/dL 7-23 4600553674) GLUCOSE (test code = 116 mg/dL 70-110 H 2647731895) CREATININE (test code = 0.71 mg/dL 0.50-1.04 0255702845) TOTAL BILI (test code = 0.5 mg/dL 0.1-1.3 5117594702) CALCIUM (test code = 9.3 mg/dL 8.6-10.6 5081332526) T PROTEIN (test code = 7.0 g/dL 6.3-8.2 9775426633) ALBUMIN (test code = 4.3 g/dL 3.5-5.0 4936686033) ALK PHOS (test code = 63 U/L 34-122 6125280760) ALTv (test code = 48 U/L 5-35 H 1742-6) AST(SGOT) (test code = 33 U/L 13-40 2062011933) eGFR (test code = mL/min/1.73m2 3077118328) FIONA (test code = FIONA) Association of [...] tests). Lab Interpretation Abnormal (test code = 65930-3) [facility] [id number] 14:34:00 Test Item Value Reference Range Interpretation Comments POCT PREG (test code = 1605) negative On board controls acceptable with present C Line (test code = 3574) POCT PREG LOT # (test code = 3575) [id number] POCT PREG TEST DATE (test 07-26-2023 code = 3576) Lab Interpretation (test code = Normal 71101-7) [facility]ubation2020-[facility]-09 19:57:02HoLuzma Fairchild CRNA ? ? 08/04/2020 ?2:57 PMIntubationDate/Time: 08/04/2020 2:39 PMUrgency: elective Airway not difficult General Information and Staff Patient location during procedure: ORResident/HAND CARVER: Luzma Almanza CRNAPerformed: resident/HAND CARVER Indications and Patient ConditionIndications for airway management: [...] and BBS, teeth and lips per preop assessmentUnCovenant Health PlainviewGALV ONLY - SYPHILIS IGG/IGM 2020-06-06 13:57:00 Test Item Value Reference Range Interpretation Comments Syphilis IgG/IgM (test Non-reactive Non-reactive code = 25697-8) FIONA (test code = FIONA) Non-reactive - No serologic evidence of T. pallidum infection. Cannot exclude incubating or early syphilis. Submit a second specimen in 2-4 weeks if syphilis is clinically suspected. Equivocal - Further testing to follow. Reactive - Further testing to follow. Lab Interpretation (test Normal code = 74121-0) [facility]HIV [facility]/2 AG-AB WITH [id number] 05:48:00 Test Item Value Reference Range Interpretation Comments HIV Negative Negative Semi-quantitative (test code = 99857-4) FIONA (test code = Non-reactive for HIV-1 FIONA) antigen and HIV-1/HIV-2 antibodies. ?No laboratory evidence of HIV infection. ?Repeat in 2-4 weeks if acute HIV infection is suspected. [facility] HospitalXR WRIST 3+ VW [id number] 20:09:52 Osteonecrosis of the lunate. Nonspecific swelling [...] of the lunate.Nonspecific swelling over the medial forearm.[facility] [id number] 17:35:00 Test Item Value Reference Range Interpretation Comments ESR (test code = See_Comment [Automated message] 1865838589) The system [employer] generated this result transmitted ref erence range: 0 - 20 m m/HR. The reference r mariella was not used to interpret this result as normal/abnor mal. Lab Interpretation (test Normal code = 39410-8) [facility] [id number] 17:35:00 Test Item Value Reference Range Interpretation Comments ESR (test code = See_Comment [Automated message] 4784997717) The system [employer] generated this result transmitted ref erence range: 0 - 20 m m/HR. The reference r mariella was not used to interpret this result as normal/abnor mal. Lab Interpretation (test Normal code = 69590-3) [facility] WITH [id number] 17:10:00 Test Item Value Reference Range Interpretation [...] RDW-SD (test code = 45.0 fL 39-49.9 53257-9) RDW-CV (test code = 14.9 % 12-15.5 788-0) PLT (test code = See_Comment [Automated 777-3) message] The sy stem which generated this result transmitted reference range : 166 - 358 10*3/ ?L. The reference r mariella was not used to interpret this result as normal/abnormal . MPV (test code = 10.0 fL 9.5-12.9 69611-5) NRBC/100 WBC (test See_Comment [Automat ed code = 6076616715) message] The system which generated this result transmitted reference range : 0.0 - 10.0 /100 WBCs. The refer ence range was not u sed to interpret th is result as normal/abnormal . NRBC x10^3 (test code <0.01 See_Comment [Auto mated = 5426498374) message] The s ystem which generated this result transmitted reference range : 10*3/?L. The reference range was not used to interpret this result as normal/abnormal . GRAN MAT (NEUT) % 60.7 % (test code = 770-8) IMM GRAN % (test code 0.50 % = 3170140786) LYMPH % (test code = 28.4 % 736-9) MONO % (test code = 7.5 % 5905-5) EOS % (test code = 2.5 % 713-8) BASO % (test code = 0.4 % 706-2) GRAN MAT x10^3(ANC) 5.91 10*3/uL 1.88-7.09 (test code = 4884694197) IMM GRAN x10^3 (test 0.05 10*3/uL 0-0.06 code = 5442822566) LYMPH x10^3 (test code 2.76 10*3/uL 1.32-3.29 = 731-0) MONO x10^3 (test code 0.73 10*3/uL 0.33-0.92 = 742-7) EOS x10^3 (test code = 0.24 10*3/uL 0.03-0.39 711-2) BASO x10^3 (test code 0.04 10*3/uL 0.01-0.07 = 704-7) Lab Interpretation Abnormal (test code = 23401-1) [facility] WITH [id number] 17:10:00 Test Item Value Reference Range Interpretation [...] RDW-SD (test code = 45.0 fL 39-49.9 23479-4) RDW-CV (test code = 14.9 % 12-15.5 788-0) PLT (test code = See_Comment [Automated 777-3) message] The sy stem which generated this result transmitted reference range : 166 - 358 10*3/ ?L. The reference r mariella was not used to interpret this result as normal/abnormal . MPV (test code = 10.0 fL 9.5-12.9 67879-1) NRBC/100 WBC (test See_Comment [Automat ed code = 8602435811) message] The system which generated this result transmitted reference range : 0.0 - 10.0 /100 WBCs. The refer ence range was not u sed to interpret th is result as normal/abnormal . NRBC x10^3 (test code <0.01 See_Comment [Auto mated = 3511435295) message] The s ystem which generated this result transmitted reference range : 10*3/?L. The reference range was not used to interpret this result as normal/abnormal . GRAN MAT (NEUT) % 60.7 % (test code = 770-8) IMM GRAN % (test code 0.50 % = 1696540745) LYMPH % (test code = 28.4 % 736-9) MONO % (test code = 7.5 % 5905-5) EOS % (test code = 2.5 % 713-8) BASO % (test code = 0.4 % 706-2) GRAN MAT x10^3(ANC) 5.91 10*3/uL 1.88-7.09 (test code = 0524791129) IMM GRAN x10^3 (test 0.05 10*3/uL 0-0.06 code = 1561262384) LYMPH x10^3 (test code 2.76 10*3/uL 1.32-3.29 = 731-0) MONO x10^3 (test code 0.73 10*3/uL 0.33-0.92 = 742-7) EOS x10^3 (test code = 0.24 10*3/uL 0.03-0.39 711-2) BASO x10^3 (test code 0.04 10*3/uL 0.01-0.07 = 704-7) Lab Interpretation Abnormal (test code = 07751-9) [facility]"
--- NOTE | 2022-09-03 10:10 | ER ---
Nurse's Notes [facility] Name: Priscilla Solo Age: 37 yrs Sex: Female : 1985 Arrival Date: 09/03/2022 Time: 08:04 Bed 12 Private MD: Diagnosis: Acute upper respiratory infection, unspecified Presentation: 09/03 08:16 Chief complaint: Patient states: cough, body aches, congestion, sore throat started 3 iw days ago. Coronavirus screen: Client presents with at least one sign or symptom that may indicate coronavirus-19. Ebola Screen: Patient negative for fever greater than or equal to 101.5 degrees Fahrenheit, and additional compatible Ebola Virus Disease symptoms Patient denies exposure to infectious person. Patient denies travel to an Ebola-affected area in the 21 days before illness onset. No symptoms or risks identified at this time. Initial Sepsis Screen: Does the patient meet any 2 criteria? No. Patient's initial sepsis screen is negative. Does the patient have a suspected source of infection? No. Patient's initial sepsis screen is negative. Risk Assessment: Do you want to hurt yourself or someone else? Patient reports no desire to harm self or others. Onset of symptoms was August 31, 2022. 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 as 08:11 Emily Snell FNP-C is PHCP. snw 08:11 Dillon Levine MD is Attending Physician. snw 08:17 Triage completed. iw 08:17 Arm band placed on. iw 09:40 Nicki Garcia, RN is Primary Nurse. iw Administered Medications: No medications were administered Outcome: 10:09 Discharge ordered by MD. chiang 10:17 Patient left the ED. iw Signatures: Emily Snell, DENITA-C DIRECTOR CAMP-Csnw Marta Lopez Irene, RN RN iw Corrections: (The following items were deleted from the chart) 08:47 08:45 Pulse 69bpm; Resp 18bpm; Pulse Ox 98% RA; Temp 98.8F; iw iw 08:57 08:45 BP 122 / 102; Pulse 69bpm; Resp 18bpm; Pulse Ox 98% RA; Temp 98.8F; iw iw
--- NOTE | 2022-09-03 10:10 | EDPHYS ---
Physician Documentation [facility] Name: Priscilla Solo Age: 37 yrs Sex: Female : 1985 Arrival Date: 09/03/2022 Time: 08:04 Bed 12 Private MD: ED Physician Dillon Levine HPI: 09/03 08:38 This 37 yrs old Female presents to ER via Ambulatory with complaints of Sore Throat. snw 08:38 The patient presents with sore throat. The patient describes throat pain as burning, snw raw. Onset: The symptoms/episode began/occurred acutely. Severity of symptoms: At their worst the symptoms were mild. Modifying factors: The patient has had contact with sick. It is unknown whether or not the patient has had similar symptoms in the past. The patient has not recently seen a physician. 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 iw Historical: - Allergies: 08:17 citalopram; iw 08:17 Lamictal; iw 08:17 Latex, Natural Rubber; iw 08:17 Morphine; iw 08:17 Trazodone; iw - PMHx: 08:17 ADD/ADHD; Anxiety; cardiomyopathy; CHF; Hypertension; iw - PSHx: 08:17 Appendectomy; section; L wrist SX x 2; iw ROS: 08:38 Constitutional: Negative for fever, chills, and weight loss, Eyes: Negative for injury, snw pain, redness, and discharge, Neck: Negative for injury, pain, and swelling, Cardiovascular: Negative for chest pain, palpitations, and edema, Respiratory: Negative for shortness of breath, cough, wheezing, and pleuritic chest pain, Abdomen/GI: Negative for abdominal pain, nausea, vomiting, diarrhea, and constipation, Back: Negative for injury and pain, : Negative for injury, bleeding, discharge, and swelling, MS/Extremity: Negative for injury and deformity, Skin: Negative for injury, rash, and discoloration, Neuro: Negative for headache, weakness, numbness, tingling, and seizure, Psych: Negative for depression, anxiety, suicide ideation, homicidal ideation, and hallucinations. 08:38 ENT: Positive for sore throat. Exam: 08:37 Constitutional: This is a well developed, well nourished patient who is awake, alert, snw and in no acute distress. Head/Face: Normocephalic, atraumatic. Eyes: Pupils equal round and reactive to light, extra-ocular motions intact. Lids and lashes normal. Conjunctiva and sclera are non-icteric and not injected. Cornea within normal limits. Periorbital areas with no swelling, redness, or edema. Neck: Trachea midline, no thyromegaly or masses palpated, and no cervical lymphadenopathy. Supple, full range of motion without nuchal rigidity, or vertebral point tenderness. No Meningismus. Chest/axilla: Normal chest wall appearance and motion. Nontender with no deformity. No lesions are appreciated. Cardiovascular: Regular rate and rhythm with a normal S1 and S2. No gallops, murmurs, or rubs. Normal PMI, no JVD. No pulse deficits. Respiratory: Lungs have equal breath sounds bilaterally, clear to auscultation and percussion. No rales, rhonchi or wheezes noted. No increased work of breathing, no retractions or nasal flaring. Abdomen/GI: Soft, non-tender, with normal bowel sounds. No distension or tympany. No guarding or rebound. No evidence of tenderness throughout. Back: No spinal tenderness. No costovertebral tenderness. Full range of motion. Skin: Warm, dry with normal turgor. Normal color with no rashes, no lesions, and no evidence of cellulitis. MS/ Extremity: Pulses equal, no cyanosis. Neurovascular intact. Full, normal range of motion. Neuro: Awake and alert, GCS 15, oriented to person, place, time, and situation. Cranial nerves II-XII grossly intact. Motor strength 5/5 in all extremities. Sensory grossly intact. Cerebellar exam normal. Normal gait. 08:37 ENT: Ear canal(s): are normal, TM's: erythema, that is mild, on the right. Vital Signs: 08:45 BP 102 / 61; Pulse 69; Resp 18; Temp 98.8; Pulse Ox 98% on R/A; iw MDM: 08:17 Patient medically screened. snw 10:10 Data reviewed: vital signs, nurses notes. Data interpreted: Pulse oximetry: on room air snw is 98 %. Interpretation: normal. Counseling: I had a detailed discussion with the patient and/or guardian regarding: the historical points, exam findings, and any diagnostic results supporting the discharge/admit diagnosis, lab results, the need for outpatient follow up, for definitive care, to return to the emergency department if symptoms worsen or persist or if there are any questions or concerns that arise at home. Special discussion: Based on the history and exam findings, there is no indication for further emergent testing or inpatient evaluation. I discussed with the patient/guardian the need to see the primary care provider for further evaluation of the symptoms. 09/03 08:16 Order name: Flu; Complete Time: :09/03 08:16 Order name: SARS-COV-2 RT PCR (Document "Date of Onset" if Symptomatic); Complete Time: 09:37 09/03 08:16 Order name: Strep; Complete Time: 09/03 09:59 Order name: Throat Culture EDMS Administered Medications: No medications were administered Disposition: 17:29 Co-signature as Attending Physician, Dillon Levine MD. rn Disposition Summary: 09/03/22 10:09 Discharge Ordered Location: Home snw Condition: Stable snw Diagnosis - Acute upper respiratory infection, unspecified snw Followup: snw - With: Emergency Department - When: As needed - Reason: Worsening of condition Followup: snw - With: Private Physician - When: 2 - 3 days - Reason: Recheck today's complaints, Continuance of care, Re-evaluation by your physician Discharge Instructions: - Discharge Summary Sheet snw - Upper Respiratory Infection, Adult snw Forms: - Medication Reconciliation Form snw - Thank You Letter snw - Antibiotic Education snw - Prescription Opioid Use snw Signatures: Dispatcher [employer] Emily Harden FNP-C FNP-Csnw Nicki Garcia, RN RN Dillon Gutierrez MD MD rn
[2022-09-03 10:35] VITALS: BP 102/61; TEMP 98.8; O2SAT 98
== END 2022-09-03 10:17 | disposition home or self-care (01) ==
LOC: ER 08:00
DX: J06.9 Acute upper respiratory infection, unspecified (principal); I10 Essential (primary) hypertension; I50.9 Heart failure, unspecified; Z88.6 Allergy status to analgesic agent; Z91.040 Latex allergy status; Z88.8 Allergy status to other drugs, medicaments and biological substances; Z20.822 Contact with and (suspected) exposure to COVID-19
CPT/HCPCS: 87070; 87081; 87804 ×2; 99281; U0003

== ENCOUNTER 2022-12-24 08:58 | Emergency (ER) | payer OTHER ==
[2022-12-24] MEDS ORDERED: predniSONE 20 MG TAB ONE (09:23)
[2022-12-24] MEDS ORDERED: ALBUTEROL 2.5 MG/3 ML NEB SOL ONE (09:23)
[2022-12-24] MEDS ORDERED: IPRATROPIUM BROM 0.5MG/2.5ML ONE (09:23)
--- OUTSIDE RECORDS SUMMARY | 2022-12-24 09:42 | XMS REPORT | Continuity of Care Document ---
:1985 Author Organization [facility] t Address [address] [facility] [address] [place] [address] Care Team Providers Name Role Phone Everett Marleny Ashley Primary Care Physician TOREY WHYTE Attending Clinician Unavailable Latonia Brar Attending Clinician Unknown, Attending Attending Clinician Unavailable Doctor Unassigned, [place] Attending Clinician Unavailable Bello Arango Attending Clinician NANNETTE JUAN Attending Clinician Unavailable Nannette Juan MD Attending Clinician TOREY CESAR Attending Clinician Unavailable Torey Cesar PA-C Attending Clinician Cj Shields Attending Clinician REGLA BAEZ Attending Clinician Unavailable Regla Solano Attending Clinician BELLO KURTZ Attending Clinician Unavailable LOTTIE GARVIN Attending Clinician Unavailable Lottie Garvin MD Attending Clinician Harjit Sneed DO Attending Clinician Torey Whyte MD Attending Clinician Ashley Alas RN Attending Clinician Unavailable Mirza Angeles MD Attending Clinician Only, Adc Test Attending Clinician Unavailable RUEL IQBAL Attending Clinician Unavailable Lab, Ang-Rmchp Attending Clinician Unavailable Casie Whipple Attending Clinician CASIE ORTEGA Attending Clinician Unavailable KAMI BERNARD Attending Clinician Unavailable Kami Bernard MD Attending Clinician JOHN RIVERA Attending Clinician Unavailable John Arenas S Attending Clinician Pob, Adc Lab Main Attending Clinician Unavailable Haja Abraham DO Attending Clinician TOREY WHYTE Admitting Clinician Unavailable LOTTIE GARVIN Admitting Clinician Unavailable Torey Whyte MD Admitting Clinician KAMI BERNARD Admitting Clinician Unavailable Payers Payer Name Policy Type Policy Number Effective Date Expiration Date Gladis hermosillo [facility] [id number] 2012 00:00:00 PLUS Problems Condition Condition Condition [...] of Disease Active U nivers bilateral bilateral 01-27 ity of tubal tubal 00:00: [place] ligation ligation 00 Medica l Branch Morbid Morbid Disease Active Univers obesity obesity 01-27 ity of 00:00: [place] 00 Medical Branch BMI BMI Disease Active Univers 50.0-59.9, 50.0-59.9, 4- it y of adult adult 00:00: [place] 00 Medical Branch Research Research Disease Active Overview: Un jac study study 2-16 Formattin ity of patient patient 00:00: g of this 00 note is Medical different Branch from the original. Patient is in the [facility] study IRB # [id number] y questions please contact:Rachel Manley MD [phone] Hightower MD [phone] Frias MD [phone] facts Patient randomize d after delivery if they met inclusion criteria a nd accepted Medicati on comes from IDS not pharmacy, [facility]S Phone Number Ext. [phone] or cell Patient can start meds as soon as they tolerate PO One tab per day of either placebo or HCTZ Medicati on stays with patient Medicati on will appear on DEC, Nurses need to randy as given (No barcode) Medicati on needs to counted prior to discharge by research steam meter reader All follow ups need to be on POD or PP day # 14 or more Patient needs to be reminded to bring their left over medicatio n and bottle back to their visit IDS needs to be notified at time of discharge Please contact Dr. Manley with any Questions Pain Pain Disease Active Univers pelvic pelvic 2-18 ity of 00:00: [facility] Depression Depression Disease Active U nivers 05-18 ity of 00:00: [facility] Asthma Asthma Disease Active Overview: Univer s 05-18 Formattin ity of 00:00: g of this note Medical might be Branch different from the original. 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 Allergies, Adverse Reactions, Alerts Allergy Allergy Status Severity Reaction(s) Onset Inactive Treating Comm ents Source Name Type Date Date Clinician Morphine Drug Active Itching 2019- Univers Allergy 0-09 ity of 00:00: [place] [facility] [place] MORPHINE DRUG Active Low ITCHING 2019- Univers INGREDI 0-09 ity of 00:00: [place] 00 [facility] Latex Propensi Active Rash 2017- Univers ty to 2-15 ity of adverse 00:00: [place] reaction 00 [facility] Branch LATEX DRUG Active Rash 2017-0 Univers INGREDI 2-15 ity of 00:00: [place] [address] Medical [place] Social History Social Habit Start Date Stop Date Quantity Comments Source Exposure to 2022-11-14 2022-11-24 Not sure [facility] SARS-CoV-2 00:00:00 14:22:00 [facility] (event) Branch Alcohol intake 2022-11-24 2022-11-24 0 /d University of 00:00:00 00:00:00 [facility] [place] Tobacco use and 2022-06-12 2022-06-12 Smokeless tobacco Un iversity of exposure 00:00:00 00:00:00 non-user [facility] [place] Alcohol Comment 2014-05-18 2014-05-18 rarely Universit y of 00:00:00 00:00:00 [facility] [place] Sex [birth year] Universit y of 00:00:00 00:00:00 [facility] [place] Smoking Status Start Date Stop Date Source Never smoked tobacco [facility] Medications Ordered Filled Start Stop Current Ordering Indication Dosage Frequency Signature Comments Components Source Medication Medication Date Date Medication? Clinician (SIG) Name Name cetirizine Yes [id number] 10mg Take 1 U nivers (ZYRTEC) 10 11-24 tablet by ity of mg tablet 00:00[place] 00 the Medical morning. Branch fluconazole Yes [id number] Take 1 tab Univers (DIFLUCAN) 11-24 by mouth ity o f 150 mg 00:00: now and [place] tablet 00 repeat in Medical 3 days Branch Nebulizer Yes [id number] Use as Un jac Accessories 11-24 directed ity of (ADULT 00:00: [place] AEROSOL 00 Medical MASK) Misc Branch albuterol 2022- Yes [id number] 2.5mg Inhale 0.5 Univers 2.5 mg/0.5 11-24 03-01 mL every 6 it y of mL 00:00: 05:59 (six) [place] nebulizer 00 :00 hours as Medica l solution needed for Branc h Wheezing for up to 30 days. amoxicillin 2022- Yes [id number] 1{tbl} Take 1 Univers -clavulanat 11-24 02-09 tablet by it y of e 00:00: 05:59 mouth in [place] (AUGMENTIN) 00 :00 [facility] 875-125 mg morning Branch per tablet and 1 tablet in the evening. Do all this for 10 days. sulfamethox 2021- No [id number] 1{tbl} Take 1 Univers azole-trime 07-20 10-02 tablet by it y of thoprim 00:00: 04:59 mouth in [place] (BACTRIM 00 :00 the Medical DS) 800-160 morning Branc h mg per and 1 tablet tablet in the evening. Do all this for 7 days. ondansetron 2021-0 Yes [id number] 4mg Take 1 Univers 4 mg 9-21 tablet by ity of disintegrat 00:00: mouth [place] ing tablet 00 every 8 Medica l (eight) Branch hours as needed for Nausea and Vomiting (N/V). cetirizine 2021-0 Yes [id number] 10mg Take 1 U nivers (ZYRTEC) 10 9-21 tablet by ity of mg tablet 00:00: [place] 00 the Medical morning. Branch ondansetron 2021-0 Yes [id number] 4mg Take 1 Univers 4 mg 9-21 tablet by ity of disintegrat 00:00: mouth [place] ing tablet 00 every 8 Medica l (eight) Branch hours as needed for Nausea and Vomiting (N/V). cetirizine 0 Yes [id number] 10mg Take 1 U nivers (ZYRTEC) 10 9-21 tablet by ity of mg tablet 00:00: [place] 00 the Medical morning. Branch ondansetron 0 Yes [id number] 4mg Take 1 Univers 4 mg 9-21 tablet by ity of disintegrat 00:00: mouth [place] ing tablet 00 every 8 Medica l (eight) Branch hours as needed for Nausea and Vomiting (N/V). cetirizine 2021-0 Yes [id number] 10mg Take 1 U nivers (ZYRTEC) 10 9-21 tablet by ity of mg tablet 00:00: [place] 00 the Medical morning. Branch ondansetron 2021-0 Yes [id number] 4mg Take 1 Univers 4 mg 9-21 tablet by ity of disintegrat 00:00: mouth [place] ing tablet 00 every 8 Medica l (eight) Branch hours as needed for Nausea and Vomiting (N/V). cetirizine 2022- No [id number] 10mg Take 1 Univers (ZYRTEC) 10 -11-24 tablet by it y of mg tablet 00:00: 00:00 mouth in [place] 00 :00 the Medical morning. Branch polymyxin B 2021- No [id number] 1[drp] Place 1 Univers sulf-trimet 07-17 Drop in ity of hoprim 00:00: 04:59 both eyes [place] 10,000 00 :00 4 (four) Medical unit- 1 times Branch mg/mL daily for ophthalmic 7 days. drops polymyxin B 2021- No [id number] 1[drp] Place 1 Univers sulf-trimet 07-17 Drop in ity of hoprim 00:00: 04:59 both eyes [place] 10,000 00 :00 4 (four) Medical unit- 1 times Branch mg/mL daily for ophthalmic 7 days. drops fluconazole 2021- No [id number] 150mg Take 1 Univers (DIFLUCAN) 07-17 tablet by ity of 150 mg 00:00: 04:59 mouth [place] tablet 00 :00 now for 1 Medical dose. Branch amoxicillin 2021- No [id number] 1{tbl} Take 1 Univers -clavulanat 8-17 08-25 tablet by it y of e 00:00: 04:59 mouth in [place] (AUGMENTIN) 00 :00 the Medical 875-125 mg morning Branch per tablet and 1 tablet in the evening. Do all this for 7 days. benzonatate 2021- No [id number] 200mg Take 1 Univers 200 mg 6-19 06-30 capsule by ity of capsule 00:00: 04:59 mouth 3 [place] 00 :00 (three) Medical times Branch daily as needed for Cough for up to 10 days. amoxicillin 2021- No [id number] 1{tbl} Take 1 Univers -clavulanat 6-19 06-27 tablet by it y of e 00:00: 04:59 mouth 2 [place] (AUGMENTIN) 00 :00 (two) Medical 875-125 mg times Branch per tablet daily for 7 days. amoxicillin 2021- No [id number] 1{tbl} Take 1 Univers -clavulanat 6-08 06-16 tablet by it y of e 875-125 00:00: 04:59 mouth 2 [place] mg per 00 :00 (two) Medical tablet times Branch daily for 7 days. ibuprofen Yes [id number] 600mg Take 1 Univers 600 mg 5-24 100 tablet by ity of tablet 00:00: mouth [place] 00 every 6 Medical (six) Branch hours as needed for Pain (scale 4-6). ibuprofen 2021-0 Yes [id number] 600mg Take 1 Univers 600 mg 5-24 100 tablet by ity of tablet 00:00: mouth [place] 00 every 6 Medical (six) Branch hours as needed for Pain (scale 4-6). ibuprofen 2021-0 Yes [id number] 600mg Take 1 Univers 600 mg 5-24 100 tablet by ity of tablet 00:00: mouth [place] 00 every 6 Medical (six) Branch hours as needed for Pain (scale 4-6). ibuprofen 2021-0 Yes [id number] 600mg Take 1 Univers 600 mg 5-24 100 tablet by ity of tablet 00:00: mouth [place] 00 every 6 Medical (six) Branch hours as needed for Pain (scale 4-6). ibuprofen 2021-0 2022- No [id number] 600mg Take 1 Univers 600 mg 5-24 09-21 100 tablet by ity of tablet 00:00: 00:00 mouth [place] 00 :00 every 6 Medical (six) Branch hours as needed for Pain (scale 4-6). guaiFENesin 2020-10 Yes [id number] 400mg Take 1 Univers 400 mg 2-06 tablet by ity of tablet 00:00: mouth [place] 00 every 4 Medical (four) Branch hours as needed for Cough. ondansetron 2020-10 Yes [id number] 4mg Take 1 Univers 4 mg 2-06 tablet by ity of disintegrat 00:00: mouth [place] ing tablet 00 every 8 Medica l (eight) Branch hours as needed for Nausea and Vomiting (N/V). albuterol 2020-10 Yes [id number] 2{puff} Inhale 2 Univers 90 2-06 Puffs ity of mcg/actuati 00:00: every 6 [place] inhaler 00 (six) Medical hours as Branch needed for Wheezing or Shortness of Breath. budesonide- 2020-10 Yes [id number] 2{puff} Inhale 2 Univers formoteroL 2-06 Puffs 2 ity of (SYMBICORT) 00:00: (two) [place] 160-4.5 00 times Medical mcg/actuati daily. Branch on inhaler guaiFENesin 2020-10 Yes [id number] 400mg Take 1 Univers 400 mg 2-06 tablet by ity of tablet 00:00: mouth [place] 00 every 4 Medical (four) Branch hours as needed for Cough. ondansetron 2020-10 Yes [id number] 4mg Take 1 Univers 4 mg 2-06 tablet by ity of disintegrat 00:00: mouth [place] ing tablet 00 every 8 Medica l (eight) Branch hours as needed for Nausea and Vomiting (N/V). albuterol 2020-10 Yes [id number] 2{puff} Inhale 2 Univers 90 2-06 Puffs ity of mcg/actuati 00:00: every 6 [place] on inhaler 00 (six) Medical hours as Branch needed for Wheezing or Shortness of Breath. budesonide- 2020-10 Yes [id number] 2{puff} Inhale 2 Univers formoteroL 2-06 Puffs 2 ity of (SYMBICORT) 00:00: (two) [place] 160-4.5 00 times Medical mcg/actuati daily. Branch on inhaler ondansetron 2020-10 Yes [id number] 4mg Take 1 Univers 4 mg 2-06 tablet by ity of disintegrat 00:00: mouth [place] ing tablet 00 every 8 Medica l (eight) Branch hours as needed for Nausea and Vomiting (N/V). albuterol 2020-10 Yes [id number] 2{puff} Inhale 2 Univers 90 2-06 Puffs ity of mcg/actuati 00:00: every 6 [place] inhaler 00 (six) Medical hours as Branch needed for Wheezing or Shortness of Breath. budesonide- 2020-10 Yes [id number] 2{puff} Inhale 2 Univers formoteroL 2-06 Puffs 2 ity of (SYMBICORT) 00:00: (two) [place] 160-4.5 00 times Medical mcg/actuati daily. Branch on inhaler ondansetron 2020-10 Yes [id number] 4mg Take 1 Univers 4 mg 2-06 tablet by ity of disintegrat 00:00: mouth [place] ing tablet 00 every 8 Medica l (eight) Branch hours as needed for Nausea and Vomiting (N/V). albuterol 2020-10 Yes [id number] 2{puff} Inhale 2 Univers 90 2-06 Puffs ity of mcg/actuati 00:00: every 6 [place] on inhaler 00 (six) Medical hours as Branch needed for Wheezing or Shortness of Breath. budesonide- 2020-10 Yes [id number] 2{puff} Inhale 2 Univers formoteroL 2-06 Puffs 2 ity of (SYMBICORT) 00:00: (two) [place] 160-4.5 00 times Medical mcg/actuati daily. Branch on inhaler ondansetron 2020-10 Yes [id number] 4mg Take 1 Univers 4 mg 2-06 tablet by ity of disintegrat 00:00: mouth [place] ing tablet 00 every 8 Medica l (eight) Branch hours as needed for Nausea and Vomiting (N/V). albuterol 2020-10 Yes [id number] 2{puff} Inhale 2 Univers 90 2-06 Puffs ity of mcg/actuati 00:00: every 6 [place] on inhaler 00 (six) Medical hours as Branch needed for Wheezing or Shortness of Breath. budesonide- 2020-10 Yes [id number] 2{puff} Inhale 2 Univers formoteroL 2-06 Puffs 2 ity of (SYMBICORT) 00:00: (two) [place] 160-4.5 00 times Medical mcg/actuati daily. Branch on inhaler ondansetron 2020-10 Yes [id number] 4mg Take 1 Univers 4 mg 2-06 tablet by ity of disintegrat 00:00: mouth [place] ing tablet 00 every 8 Medica l (eight) Branch hours as needed for Nausea and Vomiting (N/V). albuterol 2020-10 Yes [id number] 2{puff} Inhale 2 Univers 90 2-06 Puffs ity of mcg/actuati 00:00: every 6 [place] inhaler 00 (six) Medical hours as Branch needed for Wheezing or Shortness of Breath. budesonide- 2020-10 Yes [id number] 2{puff} Inhale 2 Univers formoteroL 2-06 Puffs 2 ity of (SYMBICORT) 00:00: (two) [place] 160-4.5 00 times Medical mcg/actuati daily. Branch on inhaler benzonatate 2020-10 Yes [id number] 200mg Take 2 Univers 100 mg 2-06 capsules ity of capsule 00:00: by mouth 2 [place] 00 (two) Medical times Branch daily as needed for Cough. guaiFENesin 2020-10 Yes [id number] 400mg Take 1 Univers 400 mg 2-06 tablet by ity of tablet 00:00: mouth [place] 00 every 4 Medical (four) Branch hours as needed for Cough. ondansetron 2020-10 Yes [id number] 4mg Take 1 Univers 4 mg 2-06 tablet by ity of disintegrat 00:00: mouth [place] ing tablet 00 every 8 Medica l (eight) Branch hours as needed for Nausea and Vomiting (N/V). albuterol 2020-10 Yes [id number] 2{puff} Inhale 2 Univers 90 2-06 Puffs ity of mcg/actuati 00:00: every 6 [place] on inhaler 00 (six) Medical hours as Branch needed for Wheezing or Shortness of Breath. budesonide- 2020-10 Yes [id number] 2{puff} Inhale 2 Univers formoteroL 2-06 Puffs 2 ity of (SYMBICORT) 00:00: (two) [place] 160-4.5 00 times Medical mcg/actuati daily. Branch on inhaler benzonatate 2020-10 Yes [id number] 200mg Take 2 Univers 100 mg 2-06 capsules ity of capsule 00:00: by mouth 2 [place] 00 (two) Medical times Branch daily as needed for Cough. guaiFENesin 2020-10 Yes [id number] 400mg Take 1 Univers 400 mg 2-06 tablet by ity of tablet 00:00: mouth [place] 00 every 4 Medical (four) Branch hours as needed for Cough. ondansetron 2020-10 Yes [id number] 4mg Take 1 Univers 4 mg 2-06 tablet by ity of disintegrat 00:00: mouth [place] ing tablet 00 every 8 Medica l (eight) Branch hours as needed for Nausea and Vomiting (N/V). albuterol 2020-10 Yes [id number] 2{puff} Inhale 2 Univers 90 2-06 Puffs ity of mcg/actuati 00:00: every 6 [place] on inhaler 00 (six) Medical hours as Branch needed for Wheezing or Shortness of Breath. budesonide- 2020-10 Yes [id number] 2{puff} Inhale 2 Univers formoteroL 2-06 Puffs 2 ity of (SYMBICORT) 00:00: (two) [place] 160-4.5 00 times Medical mcg/actuati daily. Branch on inhaler benzonatate 2020-10 Yes [id number] 200mg Take 2 Univers 100 mg 2-06 capsules ity of capsule 00:00: by mouth 2 [place] 00 (two) Medical times Branch daily as needed for Cough. guaiFENesin 2020-10 Yes [id number] 400mg Take 1 Univers 400 mg 2-06 tablet by ity of tablet 00:00: mouth [place] 00 every 4 Medical (four) Branch hours as needed for Cough. ondansetron 2020-10 Yes [id number] 4mg Take 1 Univers 4 mg 2-06 tablet by ity of disintegrat 00:00: mouth [place] ing tablet 00 every 8 Medica l (eight) Branch hours as needed for Nausea and Vomiting (N/V). albuterol 2020-10 Yes [id number] 2{puff} Inhale 2 Univers 90 2-06 Puffs ity of mcg/actuati 00:00: every 6 [place] inhaler 00 (six) Medical hours as Branch needed for Wheezing or Shortness of Breath. budesonide- 2020-10 Yes [id number] 2{puff} Inhale 2 Univers formoteroL 2-06 Puffs 2 ity of (SYMBICORT) 00:00: (two) [place] 160-4.5 00 times Medical mcg/actuati daily. Branch on inhaler benzonatate 2020-10 Yes [id number] 200mg Take 2 Univers 100 mg 2-06 capsules ity of capsule 00:00: by mouth 2 [place] 00 (two) Medical times Branch daily as needed for Cough. guaiFENesin 2020-10 Yes [id number] 400mg Take 1 Univers 400 mg 2-06 tablet by ity of tablet 00:00: mouth [place] 00 every 4 Medical (four) Branch hours as needed for Cough. ondansetron 2020-10 Yes [id number] 4mg Take 1 Univers 4 mg 2-06 tablet by ity of disintegrat 00:00: mouth [place] ing tablet 00 every 8 Medica l (eight) Branch hours as needed for Nausea and Vomiting (N/V). albuterol 2020-10 Yes [id number] 2{puff} Inhale 2 Univers 90 2-06 Puffs ity of mcg/actuati 00:00: every 6 [place] inhaler 00 (six) Medical hours as Branch needed for Wheezing or Shortness of Breath. budesonide- 2020-10 Yes [id number] 2{puff} Inhale 2 Univers formoteroL 2-06 Puffs 2 ity of (SYMBICORT) 00:00: (two) [place] 160-4.5 00 times Medical mcg/actuati daily. Branch on inhaler guaiFENesin 2020-10- No [id number] 400mg Take 1 Univers 400 mg 2-21 tablet by ity of tablet 00:00: 00:00 mouth [place] 00 :00 every 4 Medical (four) Branch hours as needed for Cough. benzonatate 2020-10 No [id number] 200mg Take 2 Univers 100 mg 12-02-19 capsules ity of capsule 00:00: 00:00 by mouth 2 [place] 00 :00 (two) Medical times Branch daily as needed for Cough. amoxicillin 2020-10- No [id number] 1{tbl} Take 1 Univers -clavulanat 12-02 12-14 tablet by it y of e 00:00: 05:59 mouth 2 [place] (AUGMENTIN) 00 :00 (two) Medical 875-125 mg times Branch per tablet daily for 7 days. proMETHazin 2019-10- No 25mg 25 mg, IV Univers e 008-04 Piggyback, ity of (PHENERGAN) 21:26: 21:35 [place]CE, 1 [place] 25 mg in 00 :00 dose, Fri Medica l NaCl 0.9% 08/04/20 at Bran ch (NS) 50 mL 1630, IV Routine, piggyback PACU FENTanyl PF 2019-10 Yes 25ug 25 mcg, Uni vers (SUBLIMAZE 009 Slow IV ity of (PF)) 20:54: Push, [place] injection 14 Q5MIN PRN, Medi paul 25 mcg 4 doses, Branch Starting 08/04/20 at 1554, Until Discontinu ed, Routine, Pain (scale 7-10), PACU ketorolac 2019-10 2020- No 30mg 30 mg, Unive rs (TORADOL) [...] 20:14: 20:54 Starting [place] injection 00 :20 [facility] Medical 08/04/20 at Branch 1514, Until Fri08/04/20 at 1554, Routine, Intra-op bupivacaine 2019-10 Yes PRN, Univer s -epinephrin Starting ity of e-pf 20:12: Fri [place] (SENSORCAIN 00 08/04/20 at Hi dical E 1512, Branch W/EPINEPHRI Until NE) 0.25 Discontinu %-1:200,000 ed, injection Routine, Intra-op PHENYLephri 2019-10 2020- No ONCE INTRA Univers ne 1000 08-04 PROCEDURE, ity o f mcg/10 mL 20:05: 20:54 Starting [place] in 0.9% 00 :20 [facility] NaCl 08/04/20 at Branch syringe 1505, Until Fri08/04/20 at 1554, Routine, Intra-op ePHEDrine 2019-10 2020- No ONCE INTRA U nivers 25 mg/5 mL 08-04 PROCEDURE, it y of (5 mg/mL) 20:00: 20:54 Starting [place] syringe 00 :20 Fri Medical 08/04/20 at Branch 1500, Until Fri08/04/20 at 1554, Routine, Intra-op HYDROmorphO 2019-10 2020- No ONCE INTRA Univers ne 008-04 PROCEDURE, ity of (DILAUDID) 19:51: 20:54 Starting [...] 08/04/20 at 1554, Routine, Intra-op propofoL IV 2019-10 2020- No ONCE INTRA Univers infusion 08-04 PROCEDURE, ity of 19:38: 20:54 Starting [place] 00 :20 Fri Medical 08/04/20 at Branch 1438, Until 08/04/20 at 1554, Routine, Intra-op lidocaine 2019-10 2020- No ONCE INTRA U nivers 1% 08-04 PROCEDURE, ity of (XYLOCAINE) 19:37: 20:54 Starting [place] 100 mg/10 00 :20 Fri Medical mL (1 %) 08/04/[address] [facility] h injection 1437, Until 08/04/20 at 1554, Routine, Intra-op FENTanyl PF 2019-10 2020- No ONCE INTRA Univers (SUBLIMAZE 08-04 PROCEDURE, it y of (PF)) 19:37: 20:54 Starting [place] injection 00 :20 Fri Medical 08/04/20 at Branch 1437, Until 08/04/20 at 1554, Routine, Intra-op midazolam 2019-10 2020- No ONCE INTRA U nivers (VERSED) 008-04 PROCEDURE, ity of injection 19:32: 20:54 Starting [place] 00 :20 Fri Medical 08/04/20 at Branch 1432, Until 08/04/20 at 1554, Routine, Intra-op lactated 2019-10 2020- No CONTINUOUS Un jac ringers IV 0- 10- PRN, ity of infusion 18:28: 20:54 [place] 00 :20 Fri Medical 08/04/20 at Branch 1328, Until Fri08/04/20 at 1554, Routine, Intra-op lactated 2019-10- No 1000mL at 42 Unive rs ringers IV 0- 10-09 mL/hr, ity of infusion 16:15: 18:29 1,000 mL, [place] 1,000 mL 00 :00 IV Medical Infusion, [place] ONCE, 1 dose, 08/04/20 at 1115, Routine, DSU Pre-op gabapentin 2019-10- No [id number] 300mg Take 1 Univers 300 mg 0- capsule by ity of capsule 00:00: 05:59 mouth 3 [place] 00 :00 (three) Medical times [place] daily for 60 days. gabapentin 2019-10- No [id number] 300mg Take 1 Univers 300 mg 0- capsule by ity of capsule 00:00: 05:59 mouth 3 [place] 00 :00 (three) Medical times [place] daily for 60 days. gabapentin 2019-10- No [id number] 300mg Take 1 Univers 300 mg 0- capsule by ity of capsule 00:00: 05:59 mouth 3 [place] 00 :00 (three) Medical times [place] daily for 60 days. HYDROcodone 2019-10- No [id number] 1{tbl} Take 1 U nivers -acetaminop 0- 10-17 tablet by it y of hen 5-325 00:00: 04:59 mouth [place] mg tablet 00 :00 every 6 Medical (six) Branch hours as needed for Pain (scale 4-6) for up to 7 days. Indication s: acute pain ondansetron 2019-10- No [id number] 4mg Take 1 Univers 4 mg tablet 0-07 06-17 tablet by it y of 00:00: 04:59 mouth [place] 00 :00 every 8 Medical (eight) Branch hours as needed for Nausea and Vomiting (N/V) for up to 7 days. HYDROcodone 2019-10- No [id number] 1{tbl} Take 1 U nivers -acetaminop 0- 10-17 tablet by it y of hen 5-325 00:00: 04:59 mouth [place] mg tablet 00 :00 every 6 Medical (six) Branch hours as needed for Pain (scale 4-6) for up to 7 days. Indication s: acute pain ondansetron 2019- 2020- No [id number] 4mg Take 1 Univers 4 mg tablet 0 10-17 tablet by it y of 00:00: 04:59 mouth [place] 00 :00 every 8 Medical (eight) Branch hours as needed for Nausea and Vomiting (N/V) for up to 7 days. nystatin-tr 2020-0 Yes [id number] Apply to Univers iamcinolone 8-10 area(s) 3 ity of cream 00:00: (three) [place] 00 times Medical daily. Branch nystatin-tr 2020-0 Yes [id number] Apply to Univers iamcinolone 8-10 area(s) 3 ity of cream 00:00: (three) [place] 00 times Medical daily. Branch nystatin-tr 2020-0 Yes [id number] Apply to Univers iamcinolone 8-10 area(s) 3 ity of cream 00:00: (three) [place] 00 times Medical daily. Branch nystatin-tr 2020-0 Yes [id number] Apply to Univers iamcinolone 8-10 area(s) 3 ity of cream 00:00: (three) [place] 00 times Medical daily. Branch nystatin-tr 2020-0 Yes [id number] Apply to Univers iamcinolone 8-10 area(s) 3 ity of cream 00:00: (three) [place] 00 times Medical daily. Branch nystatin-tr 2020-0 Yes [id number] Apply to Univers iamcinolone 8-10 area(s) 3 ity of cream 00:00: (three) [place] 00 times Medical daily. Branch nystatin-tr 2020-0 Yes [id number] Apply to Univers iamcinolone 8-10 area(s) 3 ity of cream 00:00: (three) [place] 00 times Medical daily. Branch nystatin-tr 2020-0 Yes [id number] Apply to Univers iamcinolone 8-10 area(s) 3 ity of cream 00:00: (three) [place] 00 times Medical daily. Branch nystatin-tr 2020-0 Yes [id number] Apply to Univers iamcinolone 8-10 area(s) 3 ity of cream 00:00: (three) [place] 00 times Medical daily. Branch nystatin-tr 2020-0 Yes [id number] Apply to Univers iamcinolone 8-10 area(s) 3 ity of cream 00:00: (three) [place] 00 times Medical daily. Branch nystatin-tr 2020-0 Yes [id number] Apply to Univers iamcinolone 8-10 area(s) 3 ity of cream 00:00: (three) [place] 00 times Medical daily. Branch nystatin-tr 2020-0 Yes [id number] Apply to Univers iamcinolone 8-10 area(s) 3 ity of cream 00:00: (three) [place] 00 times Medical daily. Branch nystatin-tr 2020-0 Yes [id number] Apply to Univers iamcinolone 8-10 area(s) 3 ity of cream 00:00: (three) [place] 00 times Medical daily. Branch nystatin-tr 2020-0 Yes [id number] Apply to Univers iamcinolone 8-10 area(s) 3 ity of cream 00:00: (three) [place] 00 times Medical daily. Branch nystatin-tr 2020-0 Yes [id number] Apply to Univers iamcinolone 8-10 area(s) 3 ity of cream 00:00: (three) [place] 00 times Medical daily. Branch nystatin-tr 2020-0 Yes [id number] Apply to Univers iamcinolone 8-10 area(s) 3 ity of cream 00:00: (three) [place] 00 times Medical daily. Branch nystatin-tr 2020-0 Yes [id number] Apply to Univers iamcinolone 8-10 area(s) 3 ity of cream 00:00: (three) [place] 00 times Medical daily. Branch nystatin-tr 2020-0 Yes [id number] Apply to Univers iamcinolone 8-10 area(s) 3 ity of cream 00:00: (three) [place] 00 times Medical daily. Branch nystatin-tr 2020-0 Yes [id number] Apply to Univers iamcinolone 8-10 area(s) 3 ity of cream 00:00: (three) [place] 00 times Medical daily. Branch nystatin-tr 2020-0 Yes [id number] Apply to Univers iamcinolone 8-10 area(s) 3 ity of cream 00:00: (three) [place] 00 times Medical daily. Branch nystatin-tr 2020-0 Yes [id number] Apply to Univers iamcinolone 8-10 area(s) 3 ity of cream 00:00: (three) [place] 00 times Medical daily. Branch nystatin-tr 2020-0 Yes [id number] Apply to Univers iamcinolone 8-10 area(s) 3 ity of cream 00:00: (three) [place] 00 times Medical daily. Branch nystatin-tr 2020-0 Yes [id number] Apply to Univers iamcinolone 8-10 area(s) 3 ity of cream 00:00: (three) [place] 00 times Medical daily. Branch nystatin-tr 2020-0 Yes [id number] Apply to Univers iamcinolone 8-10 area(s) 3 ity of cream 00:00: (three) [place] 00 times Medical daily. Branch nystatin-tr 2020-0 Yes [id number] Apply to Univers iamcinolone 8-10 area(s) 3 ity of cream 00:00: (three) [place] 00 times Medical daily. Branch nystatin-tr 2020-0 Yes [id number] Apply to Univers iamcinolone 8-10 area(s) 3 ity of cream 00:00: (three) [place] 00 times Medical daily. Branch nystatin-tr 2020-0 Yes [id number] Apply to Univers iamcinolone 8-10 area(s) 3 ity of cream 00:00: (three) [place] 00 times Medical daily. Branch nystatin-tr 2020-0 Yes [id number] Apply to Univers iamcinolone 8-10 area(s) 3 ity of cream 00:00: (three) [place] 00 times Medical daily. Branch nystatin-tr 2020-0 Yes [id number] Apply to Univers iamcinolone 8-10 area(s) 3 ity of cream 00:00: (three) [place] 00 times Medical daily. Branch nystatin-tr 2020-0 Yes [id number] Apply to Univers iamcinolone 8-10 area(s) 3 ity of cream 00:00: (three) [place] 00 times Medical daily. Branch nystatin-tr 2020-0 2022- No [id number] Apply to Univers iamcinolone 8-10 09-21 area(s) 3 it y of cream 00:00: 00:00 (three) [place] 00 :00 times Medical daily. Branch indomethaci 2020-0 Yes TK 1 C PO U nivers n 50 mg 5-06 Q 6 H PRN ity of capsule 00:00: [place] 00 Medical Branch indomethaci 2020-0 Yes TK 1 C PO U nivers n 50 mg 5-06 Q 6 H PRN ity of capsule 00:00: [place] 00 Medical Branch indomethaci 2020-0 Yes TK 1 C PO U nivers n 50 mg 5-06 Q 6 H PRN ity of capsule 00:00: [place] 00 Medical Branch indomethaci 2020-0 Yes TK 1 C PO U nivers n 50 mg 5-06 Q 6 H PRN ity of capsule 00:00: [place] 00 Medical Branch indomethaci 2020-0 Yes TK 1 C PO U nivers n 50 mg 5-06 Q 6 H PRN ity of capsule 00:00: [place] 00 Medical Branch indomethaci 2020-0 Yes TK 1 C PO U nivers n 50 mg 5-06 Q 6 H PRN ity of capsule 00:00: [place] 00 Medical Branch indomethaci 2020-0 Yes TK 1 C PO U nivers n 50 mg 5-06 Q 6 H PRN ity of capsule 00:00: [place] 00 Medical Branch indomethaci 2020-0 2020- No TK 1 C PO Univers n 50 mg 5-06 08-10 Q 6 H PRN ity of capsule 00:00: 00:00 [place] 00 :00 Medical Branch indomethaci 2020-0 2020- No TK 1 C PO Univers n 50 mg 5-06 08-10 Q 6 H PRN ity of capsule 00:00: 00:00 [place] 00 :00 Medical Branch indomethaci 2020-0 2020- No TK 1 C PO Univers n 50 mg 5-06 08-10 Q 6 H PRN ity of capsule 00:00: 00:00 [place] 00 :00 Medical Branch PROAIR HFA 2020-0 Yes Univers 90 4-09 ity of mcg/actuati 00:00: [place] on inhaler 00 Medical Branch PROAIR HFA 2020-0 Yes Univers 90 4-09 ity of mcg/actuati 00:00: [place] on inhaler 00 Medical Branch PROAIR HFA 2020-0 Yes Univers 90 4-09 ity of mcg/actuati 00:00: [place] on inhaler 00 Medical Branch PROAIR HFA [...] 2020- No Unive rs n 250 mg -09 08-10 ity of tablet 00:00: 00:00 [place] 00 [...] s ne-ethinyl 1-30 ity of estradiol 00:00: [place] 1-20 mg-mcg 00 Medical per tablet Branch norethindro 2020-0 Yes Shwetha s ne-ethinyl 1-30 ity of estradiol 00:00: [place] 1-20 mg-mcg 00 Medical per tablet Branch norethindro 2020-0 Yes Shwetha s ne-ethinyl 1-30 ity of estradiol 00:00: [place] 1-20 mg-mcg 00 Medical per tablet Branch norethindro 2020-0 Yes Shwetha s ne-ethinyl 1-30 ity of estradiol 00:00: [place] 1-20 mg-mcg 00 Medical per tablet Branch norethindro 2020-0 Yes Shwetha s ne-ethinyl 1-30 ity of estradiol 00:00: [place] 1-20 mg-mcg 00 Medical per tablet Branch norethindro 2020-0 Yes Shwetha s ne-ethinyl 1-30 ity of estradiol 00:00: [place] 1-20 mg-mcg 00 Medical per tablet Branch norethindro 2020-0 Yes Shwetha s ne-ethinyl 1-30 ity of estradiol 00:00: [place] 1-20 mg-mcg 00 Medical per tablet Branch norethindro 2020-0 Yes Shwetha s ne-ethinyl 1-30 ity of estradiol 00:00: [place] 1-20 mg-mcg 00 Medical per tablet Branch norethindro 2020-0 Yes Shwetha hanson ne-ethinyl 1-30 ity of estradiol 00:00: [place] 1-20 mg-mcg 00 Medical per tablet Branch norethindro 2020-0 Yes Shwetha hanson ne-ethinyl 1-30 ity of estradiol 00:00: [place] 1-20 mg-mcg 00 Medical per tablet Branch norethindro 2020-0 Yes Shwetha hanson ne-ethinyl 1-30 ity of estradiol 00:00: [place] 1-20 mg-mcg 00 Medical per tablet Branch norethindro 2020-0 Yes Shwetha hanson ne-ethinyl 1-30 ity of estradiol 00:00: [place] 1-20 mg-mcg 00 Medical per tablet Branch norethindro 2020-0 Yes Shwetha hanson ne-ethinyl 1-30 ity of estradiol 00:00: [place] 1-20 mg-mcg 00 Medical per tablet Branch norethindro 2020-0 Yes Shwetha hanson ne-ethinyl 1-30 ity of estradiol 00:00: [place] 1-20 mg-mcg 00 Medical per tablet Branch norethindro 2020-0 Yes Shwetha hanson ne-ethinyl 1-30 ity of estradiol 00:00: [place] 1-20 mg-mcg 00 Medical per tablet Branch norethindro 2020-0 Yes Shwetha hanson ne-ethinyl 1-30 ity of estradiol 00:00: [place] 1-20 mg-mcg 00 Medical per tablet Branch norethindro 2020-0 Yes Shwetha hanson ne-ethinyl 1-30 ity of estradiol 00:00: [place] 1-20 mg-mcg 00 Medical per tablet Branch norethindro 2020-0 Yes Shwetha hanson ne-ethinyl 1-30 ity of estradiol 00:00: [place] 1-20 mg-mcg 00 Medical per tablet Branch norethindro 2020-0 Yes Shwetha hanson ne-ethinyl 1-30 ity of estradiol 00:00: [place] 1-20 mg-mcg 00 Medical per tablet Branch norethindro 2020-0 Yes Shwetha hanson ne-ethinyl 1-30 ity of estradiol 00:00: [place] 1-20 mg-mcg 00 Medical per tablet Branch norethindro 2020-0 Yes Shwetha hanson ne-ethinyl 1-30 ity of estradiol 00:00: [place] 1-20 mg-mcg 00 Medical per tablet Branch norethindro 2020-0 Yes Shwetha hanson ne-ethinyl 1-30 ity of estradiol 00:00: [place] 1-20 mg-mcg 00 Medical per tablet Branch norethindro 2020-0 Yes Shwetha hanson ne-ethinyl 1-30 ity of estradiol 00:00: [place] 1-20 mg-mcg 00 Medical per tablet Branch norethindro 2020-0 Yes Shwetha hanson ne-ethinyl 1-30 ity of estradiol 00:00: [place] 1-20 mg-mcg 00 Medical per tablet Branch norethindro 2020-0 Yes Shwetha hanson ne-ethinyl 1-30 ity of estradiol 00:00: [place] 1-20 mg-mcg 00 Medical per tablet Branch norethindro 2020-0 Yes Shwetha hanson ne-ethinyl 1-30 ity of estradiol 00:00: [place] 1-20 mg-mcg 00 Medical per tablet Branch norethindro 2020-0 Yes Shwetha hanson ne-ethinyl 1-30 ity of estradiol 00:00: [place] 1-20 mg-mcg 00 Medical per tablet Branch norethindro 2020-0 Yes Shwetha hanson ne-ethinyl 1-30 ity of estradiol 00:00: [place] 1-20 mg-mcg 00 Medical per tablet Branch norethindro 2020-0 Yes Shwetha hanson ne-ethinyl 1-30 ity of estradiol 00:00: [place] 1-20 mg-mcg 00 Medical per tablet Branch norethindro 2020-0 Yes Shwetha hanson ne-ethinyl 1-30 ity of estradiol 00:00: [place] 1-20 mg-mcg 00 Medical per tablet Branch norethindro 2020-0 Yes Shwetha hanson ne-ethinyl 1-30 ity of estradiol 00:00: [place] 1-20 mg-mcg 00 Medical per tablet Branch norethindro 2020-0 Yes Shwetha hanson ne-ethinyl 1-30 ity of estradiol 00:00: [place] 1-20 mg-mcg 00 Medical per tablet Branch norethindro 2020-0 Yes Shwetha hanson ne-ethinyl 1-30 ity of estradiol 00:00: [place] 1-20 mg-mcg 00 Medical per tablet Branch norethindro 2020-0 Yes Shwetha hanson ne-ethinyl 1-30 ity of estradiol 00:00: [place] 1-20 mg-mcg 00 Medical per tablet Branch norethindro 2020-0 Yes Shwetha hanson ne-ethinyl 1-30 ity of estradiol 00:00: [place] 1-20 mg-mcg 00 Medical per tablet Branch norethindro 2020-0 Yes Shwetha hanson ne-ethinyl 1-30 ity of estradiol 00:00: [place] 1-20 mg-mcg 00 Medical per tablet Branch norethindro 2020-0 Yes Shwetha hanson ne-ethinyl 1-30 ity of estradiol 00:00: [place] 1-20 mg-mcg 00 Medical per tablet Branch norethindro 2020-0 Yes Shwetha hanson ne-ethinyl 1-30 ity of estradiol 00:00: [place] 1-20 mg-mcg 00 Medical per tablet Branch norethindro 2020-0 Yes Shwetha hanson ne-ethinyl 1-30 ity of estradiol 00:00: [place] 1-20 mg-mcg 00 Medical per tablet Branch norethindro 2020-0 Yes Shwetha hanson ne-ethinyl 1-30 ity of estradiol 00:00: [place] 1-20 mg-mcg 00 Medical per tablet Branch norethindro 2020-0 Yes Shwetha hanson ne-ethinyl 1-30 ity of estradiol 00:00: [place] 1-20 mg-mcg 00 Medical per tablet Branch norethindro 2020-0 Yes Shwetha hanson ne-ethinyl 1-30 ity of estradiol 00:00: [place] 1-20 mg-mcg 00 Medical per tablet Branch norethindro 2020-0 Yes Shwetha hanson ne-ethinyl 1-30 ity of estradiol 00:00: [place] 1-20 mg-mcg 00 Medical per tablet Branch norethindro 2020-0 Yes Shwetha hanson ne-ethinyl 1-30 ity of estradiol 00:00: [place] 1-20 mg-mcg 00 Medical per tablet Branch norethindro 2020-0 Yes Shwetha hanson ne-ethinyl 1-30 ity of estradiol 00:00: [place] 1-20 mg-mcg 00 Medical per tablet Branch norethindro 2020-0 Yes Shwetha hanson ne-ethinyl 1-30 ity of estradiol 00:00: [place] 1-20 mg-mcg 00 Medical per tablet Branch norethindro 2020-0 2021- No Unive rs ne-ethinyl 30 09-21 ity of estradiol 00:00: 00:00 [place] 1-20 mg-mcg 00 :00 Medical per tablet Branch MY WAY 1.5 2020-0 Yes Univers mg tablet 1-20 ity of 00:00: [place] [facility] MY WAY 1.5 2020-0 Yes Univers mg tablet 1-20 ity of 00:00: [place] [facility] MY WAY 1.5 2020-0 Yes Univers mg tablet 1-20 ity of 00:00: [place] [facility] MY WAY 1.5 2020-0 Yes Univers mg tablet 1-20 ity of 00:00: [place] [facility] MY WAY 1.5 2020-0 Yes Univers mg tablet 1-20 ity of 00:00: [place] [facility] MY WAY 1.5 2020-0 Yes Univers mg tablet 1-20 ity of 00:00: [place] [facility] MY WAY 1.5 2020-0 Yes Univers mg tablet 1-20 ity of 00:00: [place] [facility] MY WAY 1.5 2020-0 Yes Univers mg tablet 1-20 ity of 00:00: [place] [facility] MY WAY 1.5 2020-0 Yes Univers mg tablet 1-20 ity of 00:00: [place] [facility] MY WAY 1.5 2020-0 Yes Univers mg tablet 1-20 ity of 00:00: [place] [facility] MY WAY 1.5 2020-0 Yes Univers mg tablet 1-20 ity of 00:00: [place] [facility] MY WAY 1.5 2020-0 Yes Univers mg tablet 1-20 ity of 00:00: [place] [facility] MY WAY 1.5 2020-0 Yes Univers mg tablet 1-20 ity of 00:00: [place] [facility] MY WAY 1.5 2020-0 Yes Univers mg tablet 1-20 ity of 00:00: [place] [facility] MY WAY 1.5 2020-0 Yes Univers mg tablet 1-20 ity of 00:00: [place] [facility] MY WAY 1.5 2020-0 Yes Univers mg tablet 1-20 ity of 00:00: [place] [facility] MY WAY 1.5 2020-0 Yes Univers mg tablet 1-20 ity of 00:00: [place] [facility] MY WAY 1.5 2020-0 Yes Univers mg tablet 1-20 ity of 00:00: Medical Branch MY WAY 1.5 2020-0 Yes Univers mg tablet 1-20 ity of 00:00: [place] [facility] MY WAY 1.5 2020-0 Yes Univers mg tablet 1-20 ity of 00:00: [place] [facility] MY WAY 1.5 2020-0 Yes Univers mg tablet 1-20 ity of 00:00: [place] [facility] MY WAY 1.5 2020-0 Yes Univers mg tablet 1-20 ity of 00:00: [place] [facility] MY WAY 1.5 2020-0 Yes Univers mg tablet 1-20 ity of 00:00: [place] [facility] MY WAY 1.5 2020-0 Yes Univers mg tablet 1-20 ity of 00:00: [place] [facility] MY WAY 1.5 2020-0 Yes Univers mg tablet 1-20 ity of 00:00: [place] [facility] MY WAY 1.5 2020-0 Yes Univers mg tablet 1-20 ity of 00:00: [place] [facility] MY WAY 1.5 2020-0 Yes Univers mg tablet 1-20 ity of 00:00: [place] [facility] MY WAY 1.5 2020-0 Yes Univers mg tablet 1-20 ity of 00:00: [place] [facility] MY WAY 1.5 2020-0 Yes Univers mg tablet 1-20 ity of 00:00: [place] [facility] MY WAY 1.5 2020-0 Yes Univers mg tablet 1-20 ity of 00:00: [place] [facility] MY WAY 1.5 2020-0 Yes Univers mg tablet 1-20 ity of 00:00: [place] [facility] MY WAY 1.5 2020-0 Yes Univers mg tablet 1-20 ity of 00:00: [place] [facility] MY WAY 1.5 2020-0 Yes Univers mg tablet 1-20 ity of 00:00: [place] [facility] MY WAY 1.5 2020-0 Yes Univers mg tablet 1-20 ity of 00:00: [place] [facility] MY WAY 1.5 2020-0 Yes Univers mg tablet 1-20 ity of 00:00: [place] [facility] MY WAY 1.5 2020-0 Yes Univers mg tablet 1-20 ity of 00:00: [place] [facility] MY WAY 1.5 2020-0 Yes Univers mg tablet 1-20 ity of 00:00: [place] [facility] MY WAY 1.5 2020-0 Yes [...] 2022- No Univer s mg tablet 1-20 09-21 ity of 00:00: 00:00 [place] 00 :00 [...] mg 00:00: [place] tablet 00 Medical Branch traZODONE 2019-0 Yes TAKE 1 Univer [...] tablet 00 EVERY Medical MORNING Branch traZODONE 2019 Yes TAKE 1 Univer s 50 mg [...] tablet 00 EVERY Medical MORNING Branch traZODONE 2019 Yes TAKE 1 Univer s 50 mg 5-09 TABLET BY ity of tablet 00:00: MOUTH [place] 00 EVERYDAY Medical AT BEDTIME Branch escitalopra Yes TAKE 1 Univ ers m oxalate 5-09 TABLET BY ity o f 10 mg 00:00: MOUTH [place] tablet 00 EVERY Medical MORNING Branch traZODONE 2019 Yes TAKE 1 Univer s 50 mg 5-09 TABLET BY ity of tablet 00:00: MOUTH [place] 00 EVERYDAY Medical AT BEDTIME Branch escitalopra 2019 Yes TAKE 1 Univ ers m oxalate 5-09 TABLET BY ity o f 10 mg 00:00: MOUTH [place] tablet 00 EVERY Medical MORNING Branch escitalopra 20192021- No TAKE 1 Uni vers m oxalate 5-09 09-21 TABLET BY ity of 10 mg 00:00: 00:00 MOUTH [place] tablet 00 :00 EVERY Medical MORNING Branch No known No [facility] [place] [facility] Immun[facility] Ordered Filled Immunization Date Status Comments [facility] e Immunization Name Name TDAP 2017-10-16 Completed University of 00:00:00 [facility] [place] Influenza Virus 2017-10-16 Completed Universit y of Vaccine Quad IM 3+ 00:00:00 [facility] Tdap 2017-10-16 Completed University of 00:00:00 [facility] [place] Influenza Virus 2017-10-16 Completed Universit y of Vaccine Quad IM 3+ 00:00:00 [facility] TDAP 2017-10-16 Completed University of 00:00:00 [facility] [place] Influenza Virus 2017-10-16 Completed Universit y of Vaccine Quad IM 3+ 00:00:00 [facility] TDAP 2017-10-16 Completed University of 00:00:00 [facility] [place] Influenza Virus 2017-10-16 Completed Universit y of Vaccine Quad IM 3+ 00:00:00 [facility] TDAP 2017-10-16 Completed University of 00:00:00 [facility] [place] Influenza Virus 2017-10-16 Completed Universit y of Vaccine Quad IM 3+ 00:00:00 [facility] TDAP 2017-10-16 Completed University of 00:00:00 [facility] [place] Influenza Virus 2017-10-16 Completed Universit y of Vaccine Quad IM 3+ 00:00:00 [facility] TDAP 2017-10-16 Completed University of 00:00:00 [facility] [place] Influenza Virus 2017-10-16 Completed Universit y of Vaccine Quad IM 3+ 00:00:00 [facility] Tdap 2017-10-16 Completed University of 00:00:00 [facility] [place] Influenza Virus 2017-10-16 Completed Universit y of Vaccine Quad IM 3+ 00:00:00 [facility] Tdap 2017-10-16 Completed University of 00:00:00 [facility] [place] Influenza Virus 2017-10-16 Completed Universit y of Vaccine Quad IM 3+ 00:00:00 [facility] Tdap 2017-10-16 Completed University of 00:00:00 [facility] [place] Influenza Virus 2017-10-16 Completed Universit y of Vaccine Quad IM 3+ 00:00:00 [facility] Tdap 2017-10-16 Completed University of 00:00:00 [facility] [place] Influenza Virus 2017-10-16 Completed Universit y of Vaccine Quad IM 3+ 00:00:00 [facility] Tdap 2017-10-16 Completed University of 00:00:00 [facility] [place] Influenza Virus 2017-10-16 Completed Universit y of Vaccine Quad IM 3+ 00:00:00 [facility] Tdap 2017-10-16 Completed University of 00:00:00 [facility] [place] Influenza Virus 2017-10-16 Completed Universit y of Vaccine Quad IM 3+ 00:00:00 [facility] Tdap 2017-10-16 Completed University of 00:00:00 [facility] [place] Influenza Virus 2017-10-16 Completed Universit y of Vaccine Quad IM 3+ 00:00:00 [facility] Tdap 2017-10-16 Completed University of 00:00:00 [facility] [place] Influenza Virus 2017-10-16 Completed Universit y of Vaccine Quad IM 3+ 00:00:00 [facility] TDAP 2017-10-16 Completed University of 00:00:00 [facility] [place] Influenza Virus 2017-10-16 Completed Universit y of Vaccine Quad IM 3+ 00:00:00 [facility] TDAP 2017-10-16 Completed University of 00:00:00 [facility] [place] Influenza Virus 2017-10-16 Completed Universit y of Vaccine Quad IM 3+ 00:00:00 [facility] TDAP 2017-10-16 Completed University of 00:00:00 [facility] [place] Influenza Virus 2017-10-16 Completed Universit y of Vaccine Quad IM 3+ 00:00:00 [facility] TDAP 2017-10-16 Completed University of 00:00:00 [facility] [place] Influenza Virus 2017-10-16 Completed Universit y of Vaccine Quad IM 3+ 00:00:00 [facility] TDAP 2017-10-16 Completed University of 00:00:00 [facility] [place] Tdap 2017-10-16 Completed University of 00:00:00 [facility] [place] Influenza Virus 2017-10-16 Completed Universit y of Vaccine Quad IM 3+ 00:00:00 [facility] Influenza Virus 2017-10-16 Completed Universit y of Vaccine Quad IM 3+ 00:00:00 [facility] TDAP 2017-10-16 Completed University of 00:00:00 [facility] [place] Influenza Virus 2017-10-16 Completed Universit y of Vaccine Quad IM 3+ 00:00:00 [facility] TDAP 2017-10-16 Completed University of 00:00:00 [facility] [place] Influenza Virus 2017-10-16 Completed Universit y of Vaccine Quad IM 3+ 00:00:00 [facility] TDAP 2017-10-16 Completed University of 00:00:00 [facility] [place] Influenza Virus 2017-10-16 Completed Universit y of Vaccine Quad IM 3+ 00:00:00 [facility] TDAP 2017-10-16 Completed University of 00:00:00 [facility] [place] Influenza Virus 2017-10-16 Completed Universit y of Vaccine Quad IM 3+ 00:00:00 [facility] TDAP 2017-10-16 Completed University of 00:00:00 [facility] [place] Influenza Virus 2017-10-16 Completed Universit y of Vaccine Quad IM 3+ 00:00:00 [facility] Tdap 2017-10-16 Completed University of 00:00:00 [facility] [place] Influenza Virus 2017-10-16 Completed Universit y of Vaccine Quad IM 3+ 00:00:00 [facility] TDAP 2017-10-16 Completed University of 00:00:00 [facility] [place] Influenza Virus 2017-10-16 Completed Universit y of Vaccine Quad IM 3+ 00:00:00 [facility] TDAP 2017-10-16 Completed University of 00:00:00 [facility] [place] Influenza Virus 2017-10-16 Completed Universit y of Vaccine Quad IM 3+ 00:00:00 [facility] TDAP 2017-10-16 Completed University of 00:00:00 [facility] [place] Influenza Virus 2017-10-16 Completed Universit y of Vaccine Quad IM 3+ 00:00:00 [facility] TDAP 2017-10-16 Completed University of 00:00:00 [facility] [place] Influenza Virus 2017-10-16 Completed Universit y of Vaccine Quad IM 3+ 00:00:00 [facility] TDAP 2017-10-16 Completed University of 00:00:00 [facility] [place] Influenza Virus 2017-10-16 Completed Universit y of Vaccine Quad IM 3+ 00:00:00 [facility] TDAP 2017-10-16 Completed University of 00:00:00 [facility] [place] Influenza Virus 2017-10-16 Completed Universit y of Vaccine Quad IM 3+ 00:00:00 [facility] TDAP 2017-10-16 Completed University of 00:00:00 [facility] [place] Influenza Virus 2017-10-16 Completed Universit y of Vaccine Quad IM 3+ 00:00:00 [facility] TDAP 2017-10-16 Completed University of 00:00:00 [facility] [place] Influenza Virus 2017-10-16 Completed Universit y of Vaccine Quad IM 3+ 00:00:00 [facility] TDAP 2017-10-16 Completed University of 00:00:00 [facility] [place] Influenza Virus 2017-10-16 Completed Universit y of Vaccine Quad IM 3+ 00:00:00 [facility] Tdap 2017-10-16 Completed University of 00:00:00 [facility] [place] Influenza Virus 2017-10-16 Completed Universit y of Vaccine Quad IM 3+ 00:00:00 [facility] TDAP 2017-10-16 Completed University of 00:00:00 [facility] [place] Influenza Virus 2017-10-16 Completed Universit y of Vaccine Quad IM 3+ 00:00:00 [facility] TDAP 2017-10-16 Completed University of 00:00:00 [facility] [place] Influenza Virus 2017-10-16 Completed Universit y of Vaccine Quad IM 3+ 00:00:00 [facility] TDAP 2017-10-16 Completed University of 00:00:00 [facility] [place] Influenza Virus 2017-10-16 Completed Universit y of Vaccine Quad IM 3+ 00:00:00 [facility] TDAP 2017-10-16 Completed University of 00:00:00 [facility] [place] Influenza Virus 2017-10-16 Completed Universit y of Vaccine Quad IM 3+ 00:00:00 [facility] TDAP 2017-10-16 Completed University of 00:00:00 [facility] [place] Influenza Virus 2017-10-16 Completed Universit y of Vaccine Quad IM 3+ 00:00:00 [facility] TDAP 2017-10-16 Completed University of 00:00:00 [facility] [place] Influenza Virus 2017-10-16 Completed Universit y of Vaccine Quad IM 3+ 00:00:00 [facility] TDAP 2017-10-16 Completed University of 00:00:00 [facility] [place] Influenza Virus 2017-10-16 Completed Universit y of Vaccine Quad IM 3+ 00:00:00 [facility] Tdap 2017-10-16 Completed University of 00:00:00 [facility] [place] Influenza Virus 2017-10-16 Completed Universit y of Vaccine Quad IM 3+ 00:00:00 [facility] TDAP 2017-10-16 Completed University of 00:00:00 [facility] Influenza Virus 2017-10-16 Completed Universit y of [facility] IM 3+ 00:00:00 [facility] TDAP 2017-10-16 Completed University of 00:00:00 [facility] Influenza Virus 2017-10-16 Completed Universit y of Vacc[facility] IM 3+ 00:00:00 [facility] TDAP 2017-10-16 Completed University of 00:00:00 [facility] Influenza Virus 2017-10-16 Completed Universit y of Vaccine [facility] IM 3+ 00:00:00 [facility] TDAP 2017-10-16 Completed University of 00:00:00 [facility] Influenza Virus 2017-10-16 Completed Universit y of Vaccine [facility] IM 3+ 00:00:00 [facility] Tdap 2017-10-16 Completed University of 00:00:00 [facility] TDAP 2017-10-16 Completed University of 00:00:00 [facility] Influenza Virus 2017-10-16 Completed Universit y of [facility]ine [facility] IM 3+ 00:00:00 [facility] Influenza Virus 2017-10-16 Completed Universit y of Vaccine [facility] IM 3+ 00:00:00 [facility] TDAP 2017-10-16 Completed University of 00:00:00 [facility] Influenza Virus 2017-10-16 Completed Universit y of Vaccine [facility] IM 3+ 00:00:00 [facility] TDAP 2017-10-16 Completed University of 00:00:00 [facility] Influenza Virus 2017-10-16 Completed Universit y of Vaccine [facility] IM 3+ 00:00:00 [facility] TDAP 2016-01-18 Completed University of 00:00:00 [facility] Tdap 2016-01-18 Completed University of 00:00:00 [facility] TDAP 2016-01-18 Completed University of 00:00:00 [facility] TDAP 2016-01-18 Completed University of 00:00:00 [facility] TDAP 2016-01-18 Completed University of 00:00:00 [facility] TDAP 2016-01-18 Completed University of 00:00:00 [facility] TDAP 2016-01-18 Completed University of 00:00:00 [facility] Tdap 2016-01-18 Completed University of 00:00:00 [facility] Tdap 2016-01-18 Completed University of 00:00:00 [facility] Tdap 2016-01-18 Completed University of 00:00:00 [facility] Tdap 2016-01-18 Completed University of 00:00:00 [facility] Tdap 2016-01-18 Completed University of 00:00:00 [facility] Tdap 2016-01-18 Completed University of 00:00:00 [facility] Tdap 2016-01-18 Completed University of 00:00:00 [facility] Tdap 2016-01-18 Completed University of 00:00:00 [facility] TDAP 2016-01-18 Completed University of 00:00:00 [facility] TDAP 2016-01-18 Completed University of 00:00:00 [facility] TDAP 2016-01-18 Completed University of 00:00:00 [facility] TDAP 2016-01-18 Completed University of 00:00:00 [facility] Tdap 2016-01-18 Completed University of 00:00:00 [facility] TDAP 2016-01-18 Completed University of 00:00:00 [facility] TDAP 2016-01-18 Completed University of 00:00:00 [facility] TDAP 2016-01-18 Completed University of 00:00:00 [facility] TDAP 2016-01-18 Completed University of 00:00:00 [facility] TDAP 2016-01-18 Completed University of 00:00:00 [facility] Tdap 2016-01-18 Completed University of 00:00:00 [facility] TDAP 2016-01-18 Completed University of 00:00:00 [facility] TDAP 2016-01-18 Completed University of 00:00:00 [facility] TDAP 2016-01-18 Completed University of 00:00:00 [facility] TDAP 2016-01-18 Completed University of 00:00:00 [facility] TDAP 2016-01-18 Completed University of 00:00:00 [facility] TDAP 2016-01-18 Completed University of 00:00:00 [facility] TDAP 2016-01-18 Completed University of 00:00:00 [facility] TDAP 2016-01-18 Completed University of 00:00:00 [facility] TDAP 2016-01-18 Completed University of 00:00:00 [facility] Tdap 2016-01-18 Completed University of 00:00:00 [facility] TDAP 2016-01-18 Completed University of 00:00:00 [facility] TDAP 2016-01-18 Completed University of 00:00:00 [facility] TDAP 2016-01-18 Completed University of 00:00:00 [facility] TDAP 2016-01-18 Completed University of 00:00:00 [facility] TDAP 2016-01-18 Completed University of 00:00:00 [facility] TDAP 2016-01-18 Completed University of 00:00:00 [facility] TDAP 2016-01-18 Completed University of 00:00:00 [facility] Tdap 2016-01-18 Completed University of 00:00:00 [facility] TDAP 2016-01-18 Completed University of 00:00:00 [facility] TDAP 2016-01-18 Completed University of 00:00:00 [facility] TDAP 2016-01-18 Completed University of 00:00:00 [facility] TDAP 2016-01-18 Completed University of 00:00:00 [facility] TDAP 2016-01-18 Completed University of 00:00:00 [facility] Tdap 2016-01-18 Completed University of 00:00:00 [facility] TDAP 2016-01-18 Completed University of 00:00:00 [facility] TDAP 2016-01-18 Completed University of 00:00:00 [facility] TDAP 2016-01-18 Completed University of 00:00:00 [facility] TDAP 2014-05-18 Completed University of 00:00:00 [facility] Tdap 2014-05-18 Completed University of 00:00:00 [facility] TDAP 2014-05-18 Completed University of 00:00:00 [facility] TDAP 2014-05-18 Completed University of 00:00:00 [facility] TDAP 2014-05-18 Completed University of 00:00:00 [facility] TDAP 2014-05-18 Completed University of 00:00:00 [facility] Tdap 2014-05-18 Completed University of 00:00:00 [facility] TDAP 2014-05-18 Completed University of 00:00:00 [facility] Tdap 2014-05-18 Completed University of 00:00:00 [facility] Tdap 2014-05-18 Completed University of 00:00:00 [facility] Tdap 2014-05-18 Completed University of 00:00:00 [facility] Tdap 2014-05-18 Completed University of 00:00:00 [facility] Tdap 2014-05-18 Completed University of 00:00:00 [facility] Tdap 2014-05-18 Completed University of 00:00:00 [facility] Tdap 2014-05-18 Completed University of 00:00:00 [facility] Tdap 2014-05-18 Completed University of 00:00:00 [facility] TDAP 2014-05-18 Completed University of 00:00:00 [facility] TDAP 2014-05-18 Completed University of 00:00:00 [facility] TDAP 2014-05-18 Completed University of 00:00:00 [facility] TDAP 2014-05-18 Completed University of 00:00:00 [facility] Tdap 2014-05-18 Completed University of 00:00:00 [facility] TDAP 2014-05-18 Completed University of 00:00:00 [facility] TDAP 2014-05-18 Completed University of 00:00:00 [facility] TDAP 2014-05-18 Completed University of 00:00:00 [facility] TDAP 2014-05-18 Completed University of 00:00:00 [facility] Tdap 2014-05-18 Completed University of 00:00:00 [facility] TDAP 2014-05-18 Completed University of 00:00:00 [facility] TDAP 2014-05-18 Completed University of 00:00:00 [facility] TDAP 2014-05-18 Completed University of 00:00:00 [facility] TDAP 2014-05-18 Completed University of 00:00:00 [facility] TDAP 2014-05-18 Completed University of 00:00:00 [facility] TDAP 2014-05-18 Completed University of 00:00:00 [facility] TDAP 2014-05-18 Completed University of 00:00:00 [facility] TDAP 2014-05-18 Completed University of 00:00:00 [facility] TDAP 2014-05-18 Completed University of 00:00:00 [facility] Tdap 2014-05-18 Completed University of 00:00:00 [facility] TDAP 2014-05-18 Completed University of 00:00:00 [facility] TDAP 2014-05-18 Completed University of 00:00:00 [facility] TDAP 2014-05-18 Completed University of 00:00:00 [facility] TDAP 2014-05-18 Completed University of 00:00:00 [facility] TDAP 2014-05-18 Completed University of 00:00:00 [facility] TDAP 2014-05-18 Completed University of 00:00:00 [facility] TDAP 2014-05-18 Completed University of 00:00:00 [facility] TDAP 2014-05-18 Completed University of 00:00:00 [facility] Tdap 2014-05-18 Completed University of 00:00:00 [facility] TDAP 2014-05-18 Completed University of 00:00:00 [facility] TDAP 2014-05-18 Completed University of 00:00:00 [facility] TDAP 2014-05-18 Completed University of 00:00:00 [facility] TDAP 2014-05-18 Completed University of 00:00:00 [facility] TDAP 2014-05-18 Completed University of 00:00:00 [facility] Tdap 2014-05-18 Completed University of 00:00:00 [facility] TDAP 2014-05-18 Completed University of 00:00:00 [facility] TDAP 2014-05-18 Completed University of 00:00:00 [facility] TDAP 2014-05-18 Completed University of 00:00:00 [facility] Pneumococcal 2008-05-11 Completed University o f Polysaccharide, [...] Time Observation Value Comments Source Systolic blood 2022-11-24 20:34:00 155 mm[Hg] [facility] Diastolic blood 2022-11-24 20:34:00 87 mm[Hg] Unive [facility] Heart rate 2022-11-24 20:22:00 73 /min [facility] Body temperature 2022-11-24 20:22:00 36.67 Zainab [facility] Respiratory rate 2022-11-24 20:22:00 20 /min [facility] Body height 2022-11-24 20:22:00 154.9 cm [facility] Body weight 2022-11-24 20:22:00 123.605 kg [facility] BMI 2022-11-24 20:22:00 51.49 kg/m2 [facility] Oxygen saturation in 2022-11-24 20:22:00 98 /min [facility] Arterial blood by [facility] Pulse oximetry Branch Systolic blood 2022-07-17 15:56:00 137 mm[Hg] Univer sity of pressure [facility] Diastolic blood 2022-07-17 15:56:00 79 mm[Hg] Unive rsity of pressure [facility] Heart rate 2022-07-17 15:56:00 73 /min Universi ty of [facility] Body temperature 2022-07-17 15:56:00 37 Zainab Univ ersity of [facility] Respiratory rate 2022-07-17 15:56:00 18 /min Univ ersity of [facility] Body height 2022-07-17 15:56:00 154.9 cm Universi ty [facility] Body weight 2022-07-17 15:56:00 123.242 kg [facility]i ty [facility] BMI 2022-07-17 15:56:00 51.34 kg/m2 [facility]i ty [facility] Oxygen saturation in 2022-07-17 15:56:00 95 /min University of Arterial blood by [employer] P[facility] Branch Systolic blood 2022-06-13 00:43:00 152 mm[Hg] Univer sity of pressure [facility] Diastolic blood 2022-06-13 00:43:00 98 mm[Hg] Unive rsity of pressure [facility] Heart rate 2022-06-13 00:41:00 90 /min Universi ty of [facility] Body temperature 2022-06-13 00:41:00 37.17 Zainab Univ ersity of [facility] Respiratory rate 2022-06-13 00:41:00 16 /min Univ ersity of [facility] Body height 2022-06-13 00:41:00 154.9 cm [facility] Body weight 2022-06-13 00:41:00 126.508 kg [facility] BMI 2022-06-13 00:41:00 52.70 kg/m2 [facility] Oxygen saturation in 2022-06-13 00:41:00 97 /min University of Arterial blood by [employer] [facility] Systolic blood 2022-04-14 18:03:00 126 mm[Hg] Univer sity of pressure [facility] Diastolic blood 2022-04-14 18:03:00 87 mm[Hg] Unive rsity of pressure [facility] Heart rate 2022-04-14 18:03:00 83 /min [facility] Body temperature 2022-04-14 18:03:00 36.89 Zainab Univ ersity of [facility] Respiratory rate 2022-04-14 18:03:00 18 /min Univ ersity of [facility] Body height 2022-04-14 18:03:00 154.9 cm [facility]i [facility] Body weight 2022-04-14 18:03:00 126.508 kg [facility] BMI 2022-04-14 18:03:00 52.70 kg/m2 [facility] Oxygen saturation in 2022-04-14 18:03:00 97 /min University of Arterial blood by [place] [employer] [facility] Body weight 2022-04-03 18:36:00 126.554 kg [facility] BMI 2022-04-03 18:36:00 52.72 kg/m2 [facility] ty [facility] Oxygen saturation in 2022-04-03 18:36:00 97 /min University of Arterial blood by [place] [employer] [facility] Pulse oximetry Branch Systolic blood 2022-04-03 18:36:00 146 mm[Hg] Univer sity of pressure [facility] Diastolic blood 2022-04-03 18:36:00 86 mm[Hg] Unive rsity of pressure [facility] Heart rate 2022-04-03 18:36:00 84 /min [facility] Body temperature 2022-04-03 18:36:00 37.11 Zainab Univ ersity of [facility] Respiratory rate 2022-04-03 18:36:00 18 /min Univ ersity of [facility] Body height 2022-04-03 18:36:00 154.9 cm [facility]i [facility] Systolic blood 2022-03-19 14:01:00 154 mm[Hg] Univer sity of pressure [facility] Diastolic blood 2022-03-19 14:01:00 82 mm[Hg] Unive rsity of pressure [facility] Heart rate 2022-03-19 14:01:00 61 /min [facility] Body temperature 2022-03-19 14:01:00 36.83 Zainab [facility] Respiratory rate 2022-03-19 14:01:00 18 /min [facility] Body height 2022-03-19 14:01:00 154.9 cm [facility] Body weight 2022-03-19 14:01:00 124.739 kg [facility] BMI 2022-03-19 14:01:00 51.96 kg/m2 [facility] ty [facility] Oxygen saturation in 2022-03-19 14:01:00 100 /min University of Arterial blood by [place] [facility] Systolic blood 2021-10-01 18:26:00 111 mm[Hg] Univer sity of pressure [facility] Diastolic blood 2021-10-01 18:26:00 76 mm[Hg] Unive rsity of pressure [facility] Heart rate 2021-10-01 18:26:00 103 /min [facility] Body temperature 2021-10-01 18:26:00 36.89 Zainab [facility] Respiratory rate 2021-10-01 18:26:00 16 /min Univ ersity of [facility] Body height 2021-10-01 18:26:00 154.9 cm [facility] Body weight 2021-10-01 18:26:00 129.048 kg [facility] BMI 2021-10-01 18:26:00 53.76 kg/m2 [facility] Oxygen saturation in 2021-10-01 18:26:00 100 /min University of Arterial blood by [place] [facility] Heart rate 2020-08-04 21:50:00 74 /min [facility] Respiratory rate 2020-08-04 21:50:00 23 /min Univ ers[facility] Oxygen saturation in 2020-08-04 21:50:00 95 /min University of Arterial blood by [place] [facility] Systolic blood 2020-08-04 21:35:00 106 mm[Hg] Univer sity of pressure [facility] Diastolic blood 2020-08-04 21:35:00 63 mm[Hg] Unive rsity of pressure [facility] Body temperature 2020-08-04 20:49:00 36.5 Zainab [facility] Body height 2020-08-04 18:08:00 154.9 cm [facility]i ty [facility] Body weight 2020-08-04 18:08:00 124.739 kg [facility] BMI 2020-08-04 18:08:00 51.96 kg/m2 [facility] Heart rate 2020-08-04 21:50:00 74 /min [facility] Respiratory rate 2020-08-04 21:50:00 23 /min Univ ersity of [facility] Oxygen saturation in 2020-08-04 21:50:00 95 /min University of Arterial blood by [facility] Pulse oximetry Branch Systolic blood 2020-08-04 21:35:00 106 mm[Hg] Univer sity of pressure [facility] Diastolic blood 2020-08-04 21:35:00 63 mm[Hg] Unive rsity of pressure [facility] Body temperature 2020-08-04 20:49:00 36.5 Zainab Univ ersity of [facility] Body height 2020-08-04 18:08:00 154.9 cm [facility]i ty [facility] Body weight 2020-08-04 18:08:00 124.739 kg [facility] BMI 2020-08-04 18:08:00 51.96 kg/m2 [facility] Systolic blood 2020-06-05 18:07:00 123 mm[Hg] Univer sity of pressure [facility] Diastolic blood 2020-06-05 18:07:00 75 mm[Hg] Unive rsity of pressure [facility] Heart rate 2020-06-05 18:07:00 70 /min Universi ty of [facility] Body temperature 2020-06-05 18:07:00 36.72 Zainab Univ ersity of [facility] Respiratory rate 2020-06-05 18:07:00 16 /min Univ ersity of [facility] Body height 2020-06-05 18:07:00 156.2 cm [facility] ty [facility] Body weight 2020-06-05 18:07:00 129.91 kg [facility] BMI 2020-06-05 18:07:00 53.24 kg/m2 [facility] BMI 2020-05-31 20:10:00 53.66 kg/m2 [facility] Body temperature 2020-05-31 20:10:00 36 Zainab [facility] Body weight 2020-05-31 20:10:00 128.822 kg Universi ty of [facility] Systolic blood 2020-04-06 18:35:00 138 mm[Hg] Univer sity of pressure [facility] Diastolic blood 2020-04-06 18:35:00 83 mm[Hg] Unive rsity of pressure [facility] Heart rate 2020-04-06 18:35:00 65 /min [facility]i ty [facility] Respiratory rate 2020-04-06 18:35:00 18 /min Univ ersity of [facility] Body height 2020-04-06 18:35:00 154.9 cm [facility] [place] [facility] [place] Body weight 2020-04-06 18:35:00 122.018 kg [facility] BMI 2020-04-06 18:35:00 50.83 kg/m2 Universi ty of [facility] Systolic blood 2020-03-16 19:12:00 120 mm[Hg] Univer sity of pressure [facility] Diastolic blood 2020-03-16 19:12:00 80 mm[Hg] Unive rsity of pressure [facility] Body height 2020-03-16 19:12:00 154.9 cm [facility] ty [facility] Body weight 2020-03-16 19:12:00 122.018 kg [facility] BMI 2020-03-16 19:12:00 50.83 kg/m2 [facility] [place] Body height 2019-12-23 16:00:00 154.9 cm [facility] Body weight 2019-12-23 16:00:00 122.018 kg [facility] BMI 2019-12-23 16:00:00 50.83 kg/m2 [facility] Procedures Procedure Date / Time Performing Clinician Source Performed ASSIGNMENT OF BENEFITS 2022-11-24 20:15:38 Doctor Unassigned, No [facility] POCT TEST 2022-07-17 16:33:00 Nannette Juan [facility] POCT URINALYSIS 2022-07-17 16:15:00 Nannette Juan [place] [facility] XR KNEE 3 VW LEFT 2022-03-19 14:44:16 Lottie Garvin [facility] POCT TEST 2022-03-19 14:34:00 Lottie Garvin [facility] COMP. METABOLIC PANEL 2022-03-19 14:27:00 Lottie Garvin [facility] ([id number]) Medical [place] CBC WITH DIFF 2022-03-19 14:27:00 Bharathi Lottie [facility] PROTHROMBIN TIME / INR 2022-03-19 14:27:00 Lottie Garvin [facility] ACTIVATED PARTIAL 2022-03-19 14:27:[address] [facility] THRMPLAS REMEDIOS [facility] URINALYSIS 2022-03-19 14:27:00 Bharathi L[facility]ie [facility] CONSENT/REFUSAL FOR 2022-03-19 13:50:09 [facility] CONSENT/REFUSAL FOR 2021-10-01 18:15:24 Doctor Unassigned, No [facility] INTUBATION 2020-08-04 19:57:02 Luzma Almanza [facility] ASSIGNMENT OF BENEFITS 2020-08-04 16:10:14 Doctor Unassigned, No [facility] DISCLOSURE AND CONSENT, 2020-07-05 05:01:00 Doctor Unassigned, N o [facility] MEDICAL AND SURGICAL [facility] [place] PROCEDURES HIV 1/2 AG-AB WITH 2020-06-05 19:04:00 Casie Ortega [facility] REFLEX [facility] GALV ONLY - SYPHILIS 2020-06-05 19:04:00 Casie Ortega [facility] IGG/IGM [facility] XR WRIST 3+ VW LEFT 2020-05-31 19:46:46 Torey Whyte [facility] MR WRIST LEFT WO 2020-03-31 20:18:12 Kami Bernard [facility] CONTRAST [facility] REFERRAL- 2020-03-23 05:01:00 Doctor Unassigned, No [facility] REQUEST/RESPONSE Name [facility] SEDIMENTATION RATE 2019-12-23 17:06:00 Kami Bernard [facility] CBC WITH DIFFERENTIAL 2019-12-23 17:06:00 Kami Bernard [facility] ASSIGNMENT OF BENEFITS 2019-12-23 15:57:07 Doctor Unassigned, No [facility] DME/SUPPLY JUSTIFICATION 2019-05-27 05:01:00 Doctor Unassigned, No [facility] Encounters Start End Encounter Admission Attending Care Care Encounter Source Date/Time Date/Time Type Type Clinicians Facility Department ID 2021-08-24 Aston WHYTE [facility] [id number] Univers 19:16:32 TOREY julio c [facility] 2022-11-24 2022-11-24 Urgent Latonia Castaneda [facility] [id number] Univers 14:20:00 14:40:00 Care Unknown, Attending HEALTH [id number] ity [place] [id number] Willem as ALEK?BLEA [id number] [address] MEDICAL OFFICE [facility] 2022-11-24 2022-11-24 Outpatient Oli CASTANEDA [facility] [id number] Univers 14:20:00 14:20:00 LATONIA [facility] 2022-11-24 2022-11-24 Orders Doctor TOREY [id number] [id number] Univers 00:00:00 00:00:00 Only Unassigned, LUZ [id number] ity of [place] [facility] [id number] Willem as [id number] [address] 2022-07-20 2022-07-20 Telephone [place] [facility] [id number] Univers 00:00:00 00:00:00 Bello HEALTH [id number] it y [place] [id number] Willem as ALEK?BLEA [id number] [address] MEDICAL OFFICE [facility] 2022-07-17 2022-07-17 Outpatient Oli JUAN [facility] [id number] Univers 11:15:00 11:29:07 NANNETTE julio c [facility] 2022-07-17 2022-07-17 Jason Juan [facility] [id number] Univers 11:15:00 11:29:07 Care Nannette HEALTH [id number] it y of [place] [id number] Willem as ALEK?BLEA [id number] [address] MEDICAL OFFICE [facility] 2022-06-12 2022-06-12 Outpatient R TONNY [facility] [id number] Univers 19:20:00 19:47:11 TOREY aldojulio c [facility] 2022-06-12 2022-06-12 Urgent Torey Cesar [facility] [id number] Univers 19:20:00 19:47:11 [facility] HEALTH [id number] ity of [place] [id number] Willem as ALEK?BLEA [id number] [address] OFFICE [facility] 2022-04-14 2022-04-14 [facility] [id number] Univers 12:40:00 13:52:43 REGLA aldojulio c o f [facility] 2022-04-14 2022-04-14 Urgent Regla Baez [facility] 1.2.840 .114 [id number] Univers 12:40:00 13:52:43 Care [facility] 350.1.13.10 ity of [facility] 4.2.7.2.686 Willem as ALEK?BLEA [phone] [address] OFFICE [facility] 2022-04-03 2022-04-03 [facility] 1.2.840.114 [id number] Univers 14:20:00 14:20:00 Care Bello HEALTH 350.1.13.10 it y of [facility] 4.2.7.2.686 Willem as ALEK?BLEA [phone] [address] OFFICE [facility] 2022-04-03 2022-04-03 [facility] [id number] Univers 14:20:00 14:03:55 BELLO her [facility] 2022-03-19 2022-03-19 Emergency X BHARATHI [facility] ERT [id number] Univers 09:01:00 11:10:00 LOTTIE itjulio c of [facility] 2022-03-19 2022-03-19 Emergency [facility] 1.2.760.728 [id number] Univers 09:01:00 11:10:00 Lottie GRAFF 350.1.13.10 i ty of [facility] 4.2.7.2.686 [place] [facility] [phone] [place] [address] [place] 2022-03-19 2022-03-19 Orders Doctor TOREY 1.2.840.114 [id number] Univers 00:00:00 00:00:00 Only Unassigned, LUZ 350.1.13.10 ity of [place] [facility] 4.2.7.2.686 Willem as [phone] [address] 2021-10-01 2021-10-01 Outpatient [facility] [id number] Univers 15:00:00 13:13:59 [facility] 2021-10-01 2021-10-01 Urgent [facility] 1.2.840.114 [id number] Univers 12:15:40 13:13:59 Care [facility] 350.1.13.10 it y of [facility] 4.2.7.2.686 [place] ALEK?BLEA [phone] [address] MEDICAL OFFICE BUILDING 2021-10-01 2021-10-01 Orders Doctor TOREY 1.2.840.114 [id number] Univers 00:00:00 00:00:00 Only Unassigned, LUZ 350.1.13.10 ity of [place] 4.2.7.2.686 Willem as [phone] [address] 2021-01-15 2021-01-15 Patient Naren [facility] 1.2.840.114 [id number] 00:00:00 00:00:00 Outreach Harjit PRIMARY 350.1.13.10 Home CARE 4.2.7.2.686 PAVILLION [id number] 388 2021-01-15 2021-01-15 [facility] 1.2.840.114 [id number] Univers 00:00:00 00:00:00 Outreach Harjit PRIMARY 350.1.13.10 i ty of Home CARE [place].2.7.2.686 [place] [phone] Hi barbara [address] [place] [address] 2020-08-23 2020-08-23 Outpatient R [facility] [id number] [facility] 14:00:00 14:00:00 TOREY ity of [facility] 2020-08-09 2020-08-09 Telephone [facility] 1.2.840.114 [id number] Univers 00:00:00 00:00:00 Torey SPECIALTY 350.1.13.10 ity of CARE 4.2.7.2.686 [place] CENTER AT [phone] Hi barbara HUERTA 198 [facility] 2020-08-09 2020-08-09 [facility] 1.2.840.114 [id number] 00:00:00 00:00:00 Torey SPECIALTY 350.1.13.10 CARE 4.2.7.2.686 CENTER AT [phone] [place]ADLEY [address] [place] [address] 2020-08-04 2020-08-04 [facility] 1.2.840.114 [id number] Univers 11:12:00 17:25:00 Encounter [place] Health 350.1.13.10 ity of [place] 4.2.7.2.686 [place] [facility] [phone] [address] ([facility]) 2020-08-04 2020-08-04 [facility] 1.2.840.114 [id number] 11:12:00 17:25:00 Encounter [facility] 350.1.13.10 [place] 4.2.7.2.686 [facility] [phone] [address] ([facility]) 2020-08-04 2020-08-04 Anesthesia Ashley Alas [facility] 1.2.840 .114 [id number] Univers 14:32:00 15:44:00 Mirza [place] SPECIALTY 350.1.13.1 0 ity of CARE 4.2.7.2.686 [place] CENTER AT [phone] Hi floryhossein HUERTA 020 [facility] 2020-08-04 2020-08-04 Anesthesia Ashley Alas [facility] 1.2.840 .114 [id number] 14:32:00 15:44:00 Mirza [place] SPECIALTY 350.1.13.1 0 CARE 4.2.7.2.686 CENTER AT [phone] BRADLEY Alvarez [facility] 2020-08-04 2020-08-04 Orders Doctor TOREY 1.2.840.114 [id number] Univers 00:00:00 00:00:00 Only Unassigned, LUZ 350.1.13.10 ity of [facility] 4.2.7.2.[phone] [facility] [address] [place] 2020-08-04 2020-08-04 Orders Doctor TOREY 1.2.840.114 [id number] 00:00:00 00:00:00 Only Unassigned, LUZ 350.1.13.10 [place] [facility] 4.2.7.2.686 [id number] 009 2020-08-03 2020-08-03 Outpatient R [facility] [id number] Univers 15:30:00 15:30:00 ity of [facility] 2020-08-03 2020-08-03 Laboratory Only, [facility] Test [facility] 1.2.840. 114 [id number] Univers 14:49:11 15:04:01 Only Torey Whyte 350.1.13.10 ity of [place] 4.2.7.2.686 [facility] [phone] [facility] 353 [place] 2020-08-03 2020-08-03 Laboratory Only, [facility] 1.2.840.114 [id number] 14:49:11 15:04:01 Only Tanvi Graff 350.1.13.10 [place] 4.2.7.2.686 [place] [phone] 353 2020-08-02 2020-08-02 Telephone Failcavee, [facility] 1.2.840.114 [id number] Univers 00:00:00 00:00:00 Torey ANDRADE 350.1.13.10 ity of [facility] 4.2.7.2.[address] [facility] CENTER AT [phone] Hi floryhossein HUERTA [address] [place] [address] 2020-08-02 2020-08-02 Telephone Failcavee, [facility] 1.2.840.114 [id number] Univers 00:00:00 00:00:00 Torey SPECIALTY 350.1.13.10 ity of CARE 4.2.7.2.686 [place] CENTER AT [phone] Hi barbara HUERTA 198 [facility] 2020-07-19 2020-07-19 Telephone [facility] 1.2.840.114 [id number] Univers 00:00:00 00:00:00 Torey SPECIALTY 350.1.13.10 ity of CARE 4.2.7.2.686 [place] CENTER AT [id number] Hi barbara HUERTA 198 [facility] 2020-07-05 2020-07-05 Telemedici [facility] 1.2.840.114 [id number] Univers 11:28:58 11:38:58 ne Visit Torey SPECIALTY 350.1.13.10 ity of CARE 4.2.7.2.686 [place] CENTER AT [phone] Hi barbara Headley [facility] 2020-07-05 2020-07-05 Outpatient R ISABELL [facility] [id number] Univers 11:10:00 11:10:00 TOREY ity [facility] 2020-07-05 2020-07-05 Orders Doctor TOREY 1.2.840.114 [id number] Univers 00:00:00 00:00:00 Only Unassigned, LUZ 350.1.13.10 ity of [place] [facility] 4.2.7.2.686 Willem as [id number] [address] 2020-06-21 2020-06-21 Outpatient R FARIDA [facility] [id number] Univers 13:30:00 13:30:00 RUEL ity [facility] 2020-06-19 2020-06-19 Materials Mgmt Tech Lab, Ang-Rmchp [facility] 1.2.840. 114 [id number] Univers 16:19:58 16:20:05 Visit Casie Ortega R MEDICARE INSURANCE SPECIALIST 350.1.13.10 ity [facility] 4.2.7.2.686 Willem as MATERNAL [phone] Med ical & CHILD [address] [place] [address] 2020-06-19 2020-06-19 Outpatient R ISABELL [facility] [id number] Univers 15:40:00 15:40:00 TOREY ity of [facility] 2020-06-19 2020-06-19 Outpatient [facility] [id number] Univers 15:15:00 15:15:00 LORENNDA ity o f [facility] 2020-06-19 2020-06-19 [facility] 1.2.840.114 [id number] Univers 00:00:00 00:00:00 Troey PRIMARY 350.1.13.10 it y of CARE 4.2.7.2.686 [place] KAREY [phone] [address] 2020-06-12 2020-06-12 Telephone [facility] 1.2.634.119 [id number] Univers 00:00:00 00:00:00 Rosaldena R MEDICARE INSURANCE SPECIALIST 350.1.13.10 ity of REGIONAL 4.2.7.2.686 [place]illem as MATERNAL [phone] Med ical & CHILD [address] [place] [address] 2020-06-06 2020-06-06 [place] [facility] 1.2.383.977 [id number] Univers 00:00:00 00:00:00 Rosaldena R MEDICARE INSURANCE SPECIALIST 350.1.13.10 ity of REGIONAL 4.2.7.2.686 [place]m as MATERNAL [id number] [facility] & [address] 2020-06-05 2020-06-05 [facility] 1.2.840.114 [id number] Univers 12:48:43 14:03:05 Visit Christierosalina R MEDICARE INSURANCE SPECIALIST 350.1.13.10 ity of REGIONAL 4.2.7.2.686 [place]m as MATERNAL [id number] [facility] & [address] 2020-06-05 2020-06-05 Outpatient R [facility] [id number] Univers 12:45:00 12:45:00 LORENNDA ity o f [facility] 2020-05-31 2020-05-31 [facility] 1.2.840.114 [id number] Univers 14:36:23 23:59:00 Encounter Torey RAYMOND 350.1.13.10 ity of CARE 4.2.7.2.686 [place] CENTER AT [phone] Hi barbara HUERTA 809 [facility] 2020-05-31 2020-05-31 Office Isabell [facility] 1.2.327.915 [id number] Univers 14:17:05 15:56:27 Visit Torey ANDRADE 350.1.13.10 ity of C[place] 4.2.7.2.686 [place] CENTER AT [id number] Hi floryhossein HUERTA 198 [facility] 2020-05-31 2020-05-31 Outpatient R ISABELL [facility] [id number] Univers 14:30:00 14:30:00 [facility] 2020-04-12 2020-04-12 Outpatient R ISABELL [facility] [id number] Univers 13:00:00 13:00:00 [facility] 2020-04-12 2020-04-12 Patient Doctor [facility] 1.2.840.114 [id number] Univers 00:00:00 00:00:00 Secure Msg Unassigned, MEDICARE INSURANCE SPECIALIST 350.1.13.10 ity of [place] [facility]AL 4.2.7.2.686 Willem as MATERNAL [id number] Med ical & CHILD 107 [facility] 2020-04-06 2020-04-06 Outpatient Oli [facility] [id number] Univers 15:30:00 15:30:00 KAMI [facility] 2020-04-06 2020-04-06 Office [facility] 1.2.934.710 [id number] Univers 13:33:51 14:02:35 Visit Kami Coubic 350.1.13.10 it y of Surgical 4.2.7.2.686 [place] as Specialti [phone] Hi floryhossein maloney 198 [facility] 2020-03-31 2020-03-31 Outpatient Oli [facility] [id number] Univers 14:26:45 23:59:00 KAMI her [facility] 2020-03-31 2020-03-31 Hospital TINY Bernard 1.2.840.114 [id number] Univers 14:00:00 23:59:00 Encounter Kami L Y HEALTH 350.1.13.10 ity of CLINICS 4.2.7.2.[address] [place] [id number] [facility] 8[address] [place] 2020-03-23 2020-03-23 Orders Doctor TOREY 1.2.840.114 [id number] Univers 00:00:00 00:00:00 Only Unassigned, LUZ 350.1.13.10 ity of [place] [facility] 4.2.7.2.[id number] [facility] 00[address] [place] 2020-03-22 2020-03-22 Telephone Marco Antonio [facility] 1.2.840.114 [id number] Univers 00:00:00 00:00:00 Kami [facility] 350.1.13.10 it y of Surgical 4.2.7.2.686 [place] as Specialti [phone] Hi dical es 198 [facility] 2020-03-16 2020-03-16 Office Marco Antonio [facility] 1.2.583.200 [id number] Univers 14:10:26 14:24:02 Visit Kami Bryan 350.1.13.10 it y of Surgical 4.2.7.2.686 [place] as Specialti [phone] Hi dical es 198 [facility] 2020-03-16 2020-03-16 Outpatient R MARCO ANTONIO [facility] [id number] Univers 14:15:00 14:15:00 KAMI itjulio c [facility] 2020-03-16 2020-03-16 Outpatient R MARCO ANTONIO [facility] [id number] Univers 13:15:00 13:15:00 KAMI taina [facility] 2020-01-11 2020-01-11 Outpatient Oli RIVERA [facility] [id number] Univers 13:45:00 13:45:00 [facility] 2020-01-06 2020-01-06 Outpatient Oli RIVERA [facility] [id number] Univers 14:45:00 14:45:00 [facility] 2019-12-30 2019-12-30 Outpatient R [facility] [id number] Univers 10:15:00 10:15:00 [facility] 2019-12-30 2019-12-30 Patient [facility] 1.2.840.114 [id number] Univers 00:00:00 00:00:00 Secure Msg [facility] 350.1.13.10 ity of Surgical 4.2.7.2.686 [place] as Specialti [phone] Hi dical es 198 [facility] 2019-12-23 2019-12-23 Materials Mgmt Tech Mirta [facility] Main [facility] 1.2.8 40.114 [id number] Univers 10:51:53 11:06:53 Visit Kami Bernard 350.1.13.10 ity of [place] 4.2.7.2.686 [place] Profess[place] [phone] Hi dical nal 353 [facility] 2019-12-23 2019-12-23 Office [facility] 1.2.554.175 [id number] Univers 09:56:57 10:15:25 Visit Kami [facility] 350.1.13.10 it y of Surgical 4.2.7.2.686 [place]m as Specialti [id number] Hi dical es 198 [facility] 2019-12-23 2019-12-23 Outpatient R [facility] [id number] Univers 10:15:00 10:15:00 KAMI her [facility] 2019-12-23 2019-12-23 Orders Doctor LEMA 1.2.840.114 [id number] Univers 00:00:00 00:00:00 Only Unassigned, LUZ 350.1.13.10 ity of [place] [facility] 4.2.7.2.686 Willem as [id number] [address] 2019-05-27 2019-05-27 Orders Doctor TOREY 1.2.840.114 [id number] Univers 00:00:00 00:00:00 Only Unassigned, LUZ 350.1.13.10 ity of [place] [facility] 4.2.7.2.686 Willem as [id number] [address] 2019-05-27 2019-05-27 [facility] 1.2.702.090 [id number] Univers 00:00:00 00:00:00 Haja Graff 350.1.13.10 i ty of [place] 4.2.7.2.686 [place] Professcomfort [phone] Hi dical nal [address] [facility] 2014-05-30 2014-05-30 Patient Doctor TOREY 1.2.840.114 [id number] Univers 00:00:00 00:00:00 Secure Msg Unassigned, LUZ 350.1.13.10 ity of [place] [facility] 4.2.7.2.[phone] [facility] [address] [place] Results Test Description Test Time Test Comments Results Result Comments Source POCT TEST 2022-07-17 16:44:00 Test Item Value Reference Range Interpretation Comme nts POCT PREG (test code = 1605) Negative On board controls acceptable with C Line Yes (test code = 3574) POCT PREG LOT # (test code = 3575) [id number] POCT PREG TEST DATE (test code = 3576) FIONA (test code = FIONA) accurate development and interpretation of all internal controls Lab Interpretation (test code = 35745-7) Normal [facility] W SPECIFIC [id number] 16:16:00 Test Item Value Reference Range Interpretation [...] 3267) Lab Interpretation (test code Normal = 18741-6) [facility] WITH [id number] 15:36:23 Test Item Value Reference Range Interpretation Comments WBC (test code = See_Comment H [Automated 6690-2) message] The sy stem which [...] RDW-SD (test code = 43.0 fL 39.0-49.9 94512-6) RDW-CV (test code = 13.8 % 12.0-15.5 788-0) PLT (test code = See_Comment [Automated 777-3) message] The sy stem which generated this result transmitted reference range : 166 - 358 10*3/ ?L. The reference r mariella was not used to interpret this result as normal/abnormal . MPV (test code = 10.8 fL 9.5-12.9 99711-5) NRBC/100 WBC (test See_Comment [Automat ed code = 7550635611) message] The system which generated this result transmitted reference range : 0.0 - 10.0 /100 WBCs. The refer ence range was not u sed to interpret th is result as normal/abnormal . NRBC x10^3 (test code <0.01 See_Comment [Auto mated = 7514406545) message] The s ystem which generated this result transmitted reference range : 10*3/?L. The reference range was not used to interpret this result as normal/abnormal . GRAN MAT (NEUT) % 59.6 % (test code = 770-8) IMM GRAN % (test code 0.40 % = 6621493567) LYMPH % (test code = 29.0 % 736-9) MONO % (test code = 7.7 % 5905-5) EOS % (test code = 2.9 % 713-8) BASO % (test code = 0.4 % 706-2) GRAN MAT x10^3(ANC) 8.31 10*3/uL 1.88-7.09 H (test code = 8833291908) IMM GRAN x10^3 (test 0.06 10*3/uL 0.00-0.06 code = 6300488933) LYMPH x10^3 (test code 4.05 10*3/uL 1.32-3.29 H = 731-0) MONO x10^3 (test code 1.07 10*3/uL 0.33-0.92 H = 742-7) EOS x10^3 (test code = 0.41 10*3/uL 0.03-0.39 H 711-2) BASO x10^3 (test code 0.05 10*3/uL 0.01-0.07 = 704-7) REACT LYMPHS (test Rare code = 0680015122) Lab Interpretation Abnormal (test code = 19103-9) [facility] CenterACTIVATED PARTIAL THRMPLAS [id number] 15:06:58 Test Item Value Reference Range Interpretation [...] seconds. Lab Interpretation Normal (test code = 55778-7) [facility] CenterPROTHROMBIN TIME / [id number] 15:04:57 Test Item Value Reference Range Interpretation [...] tions. Lab Interpretation (test Normal code = 10635-1) [facility] CenterCOM. METABOLIC PANEL (71825)2022-03-19 14:58:33 Test Item Value Reference Range Interpretation Comments NA (test code = 141 mmol/L 135-145 3849446001) K (test code = 4.3 mmol/L 3.5-5.0 1382261922) CL (test code = 107 mmol/L 98-108 6155354156) CO2 TOTAL (test code = 24 mmol/L 23-31 4160613277) AGAP (test code = 2-16 3065529763) BUN (test code = 11 mg/dL 7-23 3848820263) GLUCOSE (test code = 116 mg/dL 70-110 H 3439029341) CREATININE (test code = 0.71 mg/dL 0.50-1.04 7060125230) TOTAL BILI (test code = 0.5 mg/dL 0.1-1.1 5284757470) CALCIUM (test code = 9.3 mg/dL 8.6-10.6 6216503609) T PROTEIN (test code = 7.0 g/dL 6.3-8.2 6937324273) ALBUMIN (test code = 4.3 g/dL 3.5-5.0 0685756819) ALK PHOS (test code = 63 U/L 34-122 7632940739) ALTv (test code = 48 U/L 5-35 H 1742-6) AST(SGOT) (test code = 33 U/L 13-40 1222489328) eGFR (test code = mL/min/1.73m2 5115212599) FIONA (test code = FIONA) Association of [...] tests). Lab Interpretation Abnormal (test code = 29617-4) [facility] Center[facility] [id number] 14:34:00 Test Item Value Reference Range Interpretation Comments POCT PREG (test code = 1605) negative On board controls acceptable with present C Line (test code = 3574) POCT PREG LOT # (test code = 3575) [id number] POCT PREG TEST DATE (test 07-26-2023 code = 3576) Lab Interpretation (test code = Normal 83326-3) [facility] CenterIntubation2020-10-09 19:57:02HoLuzma Fairchild CRNA ? ? 08/04/2020 ?2:57 PMIntubationDate/Time: 08/04/2020 2:39 PMUrgency: elective Airway not difficult General Information and Staff Patient location during procedure: ORResident/HAND FLATWORK FINISHER: Luzma Almanza CRNAPerformed: resident/HAND FLATWORK FINISHER Indications and Patient ConditionIndications for airway management: [...] and BBS, teeth and lips per preop assessmentUnFaith Community HospitalGALV ONLY - SYPHILIS IGG/IGM 2020-06-06 13:57:00 Test Item Value Reference Range Interpretation Comments Syphilis IgG/IgM (test Non-reactive Non-reactive code = 71278-7) FIONA (test code = FIONA) Non-reactive - No serologic evidence of T. pallidum infection. Cannot exclude incubating or early syphilis. Submit a second specimen in 2-4 weeks if syphilis is clinically suspected. Equivocal - Further testing to follow. Reactive - Further testing to follow. Lab Interpretation (test Normal code = 01081-9) [facility] CenterHI 1/2 AG-AB WITH [id number] 05:48:00 Test Item Value Reference Range Interpretation Comments HIV Negative Negative Semi-quantitative (test code = 62218-3) FIONA (test code = Non-reactive for HIV-1 FIONA) antigen and HIV-1/HIV-2 antibodies. ?No laboratory evidence of HIV infection. ?Repeat in 2-4 weeks if acute HIV infection is suspected. [facility] CenterXR WRIST 3+ VW [id number] 20:09:52 Osteonecrosis of the lunate. Nonspecific swelling [...] of the lunate.Nonspecific swelling over the medial forearm.[facility] CenterSEDIMENTATION [id number] 17:35:00 Test Item Value Reference Range Interpretation Comments ESR (test code = See_Comment [Automated message] 4550271107) The system whic h generated this result transmitted ref erence range: 0 - 20 m m/HR. The reference r mariella was not used to interpret this result as normal/abnor mal. Lab Interpretation (test Normal code = 27895-5) [facility] CenterSEDIMENTATION [id number] 17:35:00 Test Item Value Reference Range Interpretation Comments ESR (test code = See_Comment [Automated message] 4726409405) The system [employer] h generated this result transmitted ref erence range: 0 - 20 m m/HR. The reference r mariella was not used to interpret this result as normal/abnor mal. Lab Interpretation (test Normal code = 68523-8) [facility] WITH [id number] 17:10:00 Test Item Value Reference Range Interpretation Comments WBC (test code = See_Comment [Automated 5290-2) message] The sy stem which generated this result transmitted reference range : 4.30 - 11.10 10*3/?L. The reference range was not used to interpret this result as normal/abnormal . RBC (test code = See_Comment [Automated 229-8) message] The sy stem which generated this [...] RDW-SD (test code = 45.0 fL 39-49.9 80285-2) RDW-CV (test code = 14.9 % 12-15.5 788-0) PLT (test code = See_Comment [Automated 777-3) message] The sy stem which generated this result transmitted reference range : 166 - 358 10*3/ ?L. The reference r mariella was not used to interpret this result as normal/abnormal . MPV (test code = 10.0 fL 9.5-12.9 95715-3) NRBC/100 WBC (test See_Comment [Automat ed code = 2152590029) message] The system which generated this result transmitted reference range : 0.0 - 10.0 /100 WBCs. The refer ence range was not u sed to interpret th is result as normal/abnormal . NRBC x10^3 (test code <0.01 See_Comment [Auto mated = 0376798098) message] The s ystem which generated this result transmitted reference range : 10*3/?L. The reference range was not used to interpret this result as normal/abnormal . GRAN MAT (NEUT) % 60.7 % (test code = 770-8) IMM GRAN % (test code 0.50 % = 4338048560) LYMPH % (test code = 28.4 % 736-9) MONO % (test code = 7.5 % 5905-5) EOS % (test code = 2.5 % 713-8) BASO % (test code = 0.4 % 706-2) GRAN MAT x10^3(ANC) 5.91 10*3/uL 1.88-7.09 (test code = 1392301663) IMM GRAN x10^3 (test 0.05 10*3/uL 0-0.06 code = 8076898717) LYMPH x10^3 (test code 2.76 10*3/uL 1.32-3.29 = 731-0) MONO x10^3 (test code 0.73 10*3/uL 0.33-0.92 = 742-7) EOS x10^3 (test code = 0.24 10*3/uL 0.03-0.39 711-2) BASO x10^3 (test code 0.04 10*3/uL 0.01-0.07 = 704-7) Lab Interpretation Abnormal (test code = 81269-1) [facility] WITH [id number] 17:10:00 Test Item Value Reference Range Interpretation [...] RDW-SD (test code = 45.0 fL 39-49.9 79486-9) RDW-CV (test code = 14.9 % 12-15.5 788-0) PLT (test code = See_Comment [Automated 777-3) message] The sy stem which generated this result transmitted reference range : 166 - 358 10*3/ ?L. The reference r mariella was not used to interpret this result as normal/abnormal . MPV (test code = 10.0 fL 9.5-12.9 09926-8) NRBC/100 WBC (test See_Comment [Automat ed code = [id number]) message] The system which generated this result transmitted reference range : 0.0 - 10.0 /100 WBCs. The refer ence range was not u sed to interpret th is result as normal/abnormal . NRBC x10^3 (test code <0.01 See_Comment [Auto mated = [id number]) message] The s ystem which generated this result transmitted reference range : 10*3/?L. The reference range was not used to interpret this result as normal/abnormal . GRAN MAT (NEUT) % 60.7 % (test code = 770-8) IMM GRAN % (test code 0.50 % = [id number]) LYMPH % (test code = 28.4 % 736-9) MONO % (test code = 7.5 % 5905-5) EOS % (test code = 2.5 % 713-8) BASO % (test code = 0.4 % 706-2) GRAN MAT x10^3(ANC) 5.91 10*3/uL 1.88-7.09 (test code = [id number]) IMM GRAN x10^3 (test 0.05 10*3/uL 0-0.06 code = [id number]) LYMPH x10^3 (test code 2.76 10*3/uL 1.32-3.29 = 731-0) MONO x10^3 (test code 0.73 10*3/uL 0.33-0.92 = 742-7) EOS x10^3 (test code = 0.24 10*3/uL 0.03-0.39 711-2) BASO x10^3 (test code 0.04 10*3/uL 0.01-0.07 = 704-7) Lab Interpretation Abnormal (test code = 25549-5) [facility] Center"
--- NOTE | 2022-12-24 10:26 | ER ---
Nurse's Notes [facility] Name: Priscilla Solo Age: 37 yrs Sex: Female : 1985 Arrival Date: 12/24/2022 Time: 09:02 Bed 17 Private MD: Diagnosis: Mild intermittent asthma with (acute) exacerbation;Cough Presentation: 12/24 09:16 Chief complaint: Patient states: she has had a cough for 2 weeks with congestion, ap3 headache and wheezing. Coronavirus screen: Client presents with at least one sign or symptom that may indicate coronavirus-19. Ebola Screen: No symptoms or risks identified at this time. Initial Sepsis Screen: Does the patient meet any 2 criteria? No. Patient's initial sepsis screen is negative. Does the patient have a suspected source of infection? No. Patient's initial sepsis screen is negative. Risk Assessment: Do you want to hurt yourself or someone else? Patient reports no desire to harm self or others. Onset of symptoms was December 03, 2022. 09:16 Method Of Arrival: Ambulatory ap3 09:16 Acuity: ERIC 4 ap3 Triage Assessment: 09:18 General: Appears in no apparent distress. Behavior is calm, cooperative. Pain: Denies ap3 pain. Neuro: Level of Consciousness is awake, alert, obeys commands, Oriented to person, place, time. Cardiovascular: Patient's skin is warm and dry. Respiratory: Reports shortness of breath cough that is Onset: The symptoms/episode began/occurred 2 weeks ago, the patient has mild shortness of breath. 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 - Social history:: Smoking status: Patient denies any tobacco usage or history of. Screenin:18 [facility] ED Fall Risk Assessment (Adult) History of falling in the last 3 months, ap3 including since admission No falls in past 3 months (0 pts). Abuse screen: Denies threats or abuse. Nutritional screening: No deficits noted. Tuberculosis screening: No symptoms or risk factors identified. Assessment: 09:09 Reassessment: No changes from previously documented assessment. Dr. Oliveros at . ll1 09:18 Respiratory: Airway is patent Respiratory effort is even, unlabored. ap3 09:25 Reassessment: No changes from previously documented assessment. Patient and/or family ll1 updated on plan of care and expected duration. Pain level reassessed. Patient is alert, oriented x 3, equal unlabored respirations, skin warm/dry/pink. 09:35 Reassessment: No changes from previously documented assessment. Patient and/or family ll1 updated on plan of care and expected duration. Pain level reassessed. Patient is alert, oriented x 3, equal unlabored respirations, skin warm/dry/pink. 09:55 Reassessment: No changes from previously documented assessment. Patient and/or family ll1 updated on plan of care and expected duration. Pain level reassessed. gait steady to restroom. 10:05 Reassessment: No changes from previously documented assessment. Patient and/or family ll1 updated on plan of care and expected duration. Pain level reassessed. Patient is alert, oriented x 3, equal unlabored respirations, skin warm/dry/pink. Patient states feeling better. 10:29 Reassessment: No changes from previously documented assessment. Patient and/or family ll1 updated on plan of care and expected duration. Pain level reassessed. Patient is alert, oriented x 3, equal unlabored respirations, skin warm/dry/pink. 10:29 Respiratory: Breath sounds are clear bilaterally. ll1 10:29 Cardiovascular: Rhythm is regular. ll1 Vital Signs: 09:16 BP 147 / 74; Pulse 77; Resp 18; Temp 98.2; Pulse Ox 100% ; Weight 117.93 kg; ap3 ED Course: 09:02 Patient arrived in ED. am2 09:04 Gutierrez Palafox, MARE is Primary Nurse. ll1 09:05 Rainer Oliveros DO is Attending Physician. ms3 09:10 Arm band placed on Patient placed in an exam room, on a stretcher. ll1 09:17 Triage completed. ap3 09:18 Patient has correct armband on for positive identification. Bed in low position. Call ap3 light in reach. Pulse ox on. NIBP on. Door closed. Noise minimized. 09:18 No provider procedures requiring assistance completed. ap3 10:25 Rashid Hutchinson MD is Referral Physician. ms3 10:29 Patient did not have IV access during this emergency room visit. ll1 Administered Medications: 09:23 Drug: predniSONE 60 mg Route: PO; ll1 10:30 Follow up: Response: No adverse reaction ll1 09:24 Drug: Albuterol - atroVENT (ipratropium) (3:1) (2.5 mg - 0.5 mg) 3 ml Route: Nebulizer; ll1 09:55 Follow up: Response: No adverse reaction ll1 Medication: 09:18 VIS not applicable for this client. ap3 Outcome: 10:25 Discharge ordered by . ms3 10:29 Discharged to home ambulatory. ll1 10:29 Condition: stable 10:29 Discharge instructions given to patient, Instructed on discharge instructions, follow up and referral plans. medication usage, Demonstrated understanding of instructions, follow-up care, medications, Prescriptions given X 2. 10:30 Patient left the ED. ll1 Signatures: Nannette Hawley am2 Nannette Esparza RN RN ap3 Gutierrez Palafox RN RN ll1 Rainer Oliveros DO DO ms3 Corrections: (The following items were deleted from the chart) 09:18 09:17 Allergies: Trazodone; ap3 ap3
--- NOTE | 2022-12-24 10:26 | EDPHYS ---
Physician Documentation [facility] Name: Priscilla Solo Age: 37 yrs Sex: Female : 1985 Arrival Date: 12/24/2022 Time: 09:02 Bed 17 Private MD: ED Physician Rainer Oliveros HPI: 12/24 09:29 This 37 yrs old Female presents to ER via Ambulatory with complaints of Shortness Of ms3 Breath, Chest Pain - lung pain. 09:29 37-year-old female with past medical history of ADD/ADHD, anxiety, cardiomyopathy, ms3 congestive heart failure, hypertension, bipolar presents for bronchitis symptoms that have been going on for 3 weeks. Patient states she has been unable to get her symptoms to go away. Patient denies pain at this time. Patient endorses coughing and wheezing.. 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 - Social history:: Smoking status: Patient denies any tobacco usage or history of. ROS: 09:29 Constitutional: Negative for fever, and chills. Neck: Negative for injury, pain, and ms3 swelling, Cardiovascular: Negative for chest pain, and palpitations. 09:29 Abdomen/GI: Negative for abdominal pain, nausea, vomiting, diarrhea, and constipation, MS/Extremity: Negative for injury and deformity, Skin: Negative for injury, rash, and discoloration. 09:29 Respiratory: Positive for cough. 09:29 All other systems are negative. Exam: 09:29 Constitutional: This is a well developed, well nourished patient who is awake, alert, ms3 and in no acute distress. Head/Face: Normocephalic, atraumatic. Chest/axilla: Normal chest wall appearance and motion. Nontender with no deformity. Cardiovascular: Regular rate and rhythm with a normal S1 and S2. No gallops, murmurs, or rubs. Normal PMI, no JVD. No pulse deficits. Abdomen/GI: Soft, non-tender, with normal bowel sounds. No distension or tympany. No guarding or rebound. No evidence of tenderness throughout. 09:29 Skin: Warm, dry with normal turgor. Normal color with no rashes, no lesions, and no evidence of cellulitis. MS/ Extremity: Pulses equal, no cyanosis. Neurovascular intact. Full, normal range of motion. 09:29 Respiratory: moderate respiratory distress is noted, Respirations: normal, Breath sounds: wheezing: that is mild, is heard diffusely. Vital Signs: 09:16 BP 147 / 74; Pulse 77; Resp 18; Temp 98.2; Pulse Ox 100% ; Weight 117.93 kg; ap3 MDM: 09:15 Patient medically screened. ms3 09:29 Differential diagnosis: asthma, Bronchitis URI. ms3 13:38 Data reviewed: vital signs, nurses notes, and as a result, I will discharge patient. I ms3 considered the following discharge prescriptions or medication management in the emergency department Medications were administered in the Emergency Department. See MAR. Counseling: I had a detailed discussion with the patient and/or guardian regarding: the historical points, exam findings, and any diagnostic results supporting the discharge/admit diagnosis, the need for outpatient follow up, to return to the emergency department if symptoms worsen or persist or if there are any questions or concerns that arise at home. ED course: Patient improved after albuterol/Atrovent, prednisone treatments. Patient to follow-up with primary care physician in 2 to 3 days. Patient understands agrees to plan. All questions were answered. Return precautions discussed include worsening symptoms, or any other concerns. On reevaluation patient is alert and oriented x4, no apparent distress, nontoxic, ambulatory Emergency Department, speaking full sentences. Administered Medications: 09:23 Drug: predniSONE 60 mg Route: PO; ll1 10:30 Follow up: Response: No adverse reaction ll1 09:24 Drug: Albuterol - atroVENT (ipratropium) (3:1) (2.5 mg - 0.5 mg) 3 ml Route: Nebulizer; ll1 09:55 Follow up: Response: No adverse reaction ll1 Disposition Summary: 12/24/22 10:25 Discharge Ordered Location: Home ms3 Condition: Stable ms3 Diagnosis - Mild intermittent asthma with (acute) exacerbation ms3 - Cough ms3 Followup: ms3 - With: Rashid Hutchinson MD - When: 2 - 3 days - Reason: Recheck today's complaints Discharge Instructions: - Discharge Summary Sheet ms3 - Asthma, Adult ms3 - Cough, Adult ms3 Forms: - Medication Reconciliation Form ms3 - Thank You Letter ms3 - Antibiotic Education ms3 - Prescription Opioid Use ms3 Prescriptions: - albuterol sulfate 90 mcg/actuation Inhalation HFA aerosol inhaler - inhale 2 puff by INHALATION route every 6 hours; 1 Pump; Refills: 0, Product ms3 Selection Permitted - Prednisone 20 mg Oral Tablet - take 2 tablets by ORAL route once daily for 5 days; 10 tablet; Refills: 0, ms3 Product Selection Permitted Signatures: Nannette Esparza RN RN ap3 Gutierrez Palafox RN RN ll1 Rainer Oliveros DO DO ms3 Corrections: (The following items were deleted from the chart) 09:18 09:17 Allergies: Trazodone; ap3 ap3
[2022-12-24 10:37] VITALS: BP 147/74; TEMP 98.2; O2SAT 100
== END 2022-12-24 10:30 | disposition home or self-care (01) ==
LOC: ER 08:58
DX: J45.21 Mild intermittent asthma with (acute) exacerbation (principal); I10 Essential (primary) hypertension; Z88.5 Allergy status to narcotic agent; Z88.8 Allergy status to other drugs, medicaments and biological substances; Z91.040 Latex allergy status; Z91.048 Other nonmedicinal substance allergy status
CPT/HCPCS: 94640; 99284; J7512; J7613; J7644

== ENCOUNTER 2023-05-04 18:40 | Emergency (ER) | payer OTHER ==
--- OUTSIDE RECORDS SUMMARY | 2023-05-04 18:51 | XMS REPORT | Continuity of Care Document ---
:1985 Author Organization [facility] t Address [address] [facility] [address] [facility] [address] [place] [address] Care Team Providers Name Role Phone MARTIN CARPIO Primary Care Physician Unavailable TOREY WHYTE Attending Clinician Unavailable MIRTA CORREA Attending Clinician Unavailable Regla Solano Attending Clinician Unknown, Attending Attending Clinician Unavailable REGLA BAEZ Attending Clinician Unavailable Madeline Mirta BAILEY Attending Clinician [phone] Doctor Unassigned, [place] Attending Clinician Unavailable Jenniffer Hernandez RN Attending Clinician Unavailable Latonia Brar Attending Clinician Bello Arango Attending Clinician NANNETTE JUAN Attending Clinician Unavailable Nannette Juan MD Attending Clinician TOREY CESAR Attending Clinician Unavailable Torey Cesar PA-C Attending Clinician Cj Shields Attending Clinician BELLO KURTZ Attending Clinician Unavailable LOTTIE GARVIN Attending Clinician Unavailable Bharathi LATIF, Lottie Attending Clinician Harjit Sneed DO Attending Clinician [...] Expiration Date Gladis hermosillo [facility] [id number] 2012 00:00:00 PLUS Problems Condition Condition Condition [...] bilateral 01-27 ity of tubal tubal 00:00: [place] ligation ligation 00 Medica l Branch Morbid Morbid Disease Active Univers obesity obesity - ity of 00:00: 00 Medical Branch BMI BMI Disease Active Univers 50.0-59.9, 50.0-59.9, 4- it y of adult adult 00:00: [place] [address] Medical Branch Research Research Disease Active Overview: Un jac study study 2-16 Formattin ity of patient patient 00:00: g of this note is Medical different Branch from the original. Patient is in the HCTZ study IRB # [id number] y questions please contact:Rachel Manley MD [phone] Hightower MD [phone] Frias MD [phone] facts Patient randomize d after delivery if they met inclusion criteria a nd accepted Medicati on comes from [facility] not pharmacy, [facility] Phone Number Ext. 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 Manley with any Questions Pain Pain Disease Active Univers pelvic pelvic 2-18 ity of 00:00: [place] 00 Medical Branch Depression Depression Disease Active U nivers 05-18 ity of 00:00: Medical Branch Asthma Asthma Disease Active Overview: Univer s 05-18 Formattin ity of 00:00: g of this [place] note Medical might be Branch different from the original. ICD10 Diagnosis Term Design Specialist Utility Allergies, Adverse Reactions, Alerts Allergy Allergy Status Severity Reaction(s) Onset Inactive Treating Comm ents Source Name Type Date Date Clinician Morphine Drug Active Itching 2019- Univers Allergy 0-09 ity of 00:00: [place] 00 Medical Branch MORPHINE DRUG Active Low ITCHING 2019-1 Univers INGREDI 0-09 ity of 00:00: 00 Medical Branch Latex Propensi Active Rash 2017- Univers ty to 2-15 ity of adverse 00:00: [place] reaction 00 Medical s Branch LATEX DRUG Active Rash 2017-0 Univers INGREDI 2-15 ity of 00:00: [place] 00 Medical Branch Social History Social Habit Start Date Stop Date Quantity Comments Source Exposure to 2023-02-25 2023-03-07 Not sure University of SARS-CoV-2 00:00:00 11:03:00 [facility] (event) Branch Alcohol intake 2023-03-07 2023-03-07 0 /d University of 00:00:00 00:00:00 [facility] Tobacco use and 2022-06-12 2022-06-12 Smokeless tobacco Un iversity of exposure 00:00:00 00:00:00 non-user [facility] Alcohol Comment 2014-05-18 2014-05-18 rarely Universit y of 00:00:00 00:00:00 [facility] [birth year] Universit y of 00:00:00 00:00:00 [facility] Smoking Status Start Date Stop Date Source Never smoked tobacco [facility] Medications Ordered Filled Start Stop Current Ordering Indication Dosage Frequency Signature Comments Components Source Medication Medication Date Date Medication? Clinician (SIG) Name Name benzonatate 2022- Yes [id number] 200mg Take 1 Univers 200 mg -09 30- capsule by ity of capsule 00:00: 04:59 mouth 3 [place] 00 :00 (three) Medical times [place] daily as needed for Cough for up to 10 days. fluconazole 2022- Yes [id number] 150mg Take 1 Univers (DIFLUCAN) 5-12 05-13 tablet by ity of 150 mg 00:00: 04:59 [place] tablet 00 :00 now for 1 Medical dose. Branch metroNIDAZO 2022- Yes [id number] 2000mg Take 4 Univers LE 500 mg 5-02 05-03 tablets by ity of tablet 00:00: 04:59 [place] 00 :[place] now for 1 Medical dose. Branch metroNIDAZO 2022- Yes [id number] 2000mg Take 4 Univers LE 500 mg 5-02 05-03 tablets by ity of tablet 00:00: 04:59 [place] 00 :00 now for 1 Medical dose. Branch metroNIDAZO 2022- Yes [id number] 2000mg Take 4 Univers LE 500 mg 5-02 05-03 tablets by ity of tablet 00:00: 04:59 mouth [place] 00 :00 now for 1 Medical dose. Branch metroNIDAZO 2022- Yes [id number] 2000mg Take 4 Univers LE 500 mg 5-02 05-03 tablets by ity of tablet 00:00: 04:59 [place] 00 :00 now for 1 Medical dose. Branch ampicillin 2022- Yes [id number] 500mg Take 1 Univers 500 mg 5-01 05-12 capsule by ity of capsule 00:00: 04:59 mouth 4 [place] 00 :00 (four) Medical times Branch daily for 10 days. ampicillin 2022- Yes [id number] 500mg Take 1 Univers 500 mg 5-01 05-12 capsule by ity of capsule 00:00: 04:59 mouth 4 [place] 00 :00 (four) Medical times Branch daily for 10 days. ampicillin 2022-2022- Yes [id number] 500mg Take 1 Univers 500 mg 5-01 05-12 capsule by ity of capsule 00:00: 04:59 mouth 4 [place] 00 :00 (four) Medical times Branch daily for 10 days. ampicillin 2022- Yes [id number] 500mg Take 1 Univers 500 mg 5-01 05-12 capsule by ity of capsule 00:00: 04:59 mouth 4 [place] 00 :00 (four) Medical times Branch daily for 10 days. ampicillin 2022- Yes [id number] 500mg Take 1 Univers 500 mg 5-01 05-12 capsule by ity of capsule 00:00: 04:59 mouth 4 [place] 00 :00 (four) Medical times Branch daily for 10 days. ampicillin 2022- Yes [id number] 500mg Take 1 Univers 500 mg 5-01 05-12 capsule by ity of capsule 00:00: 04:59 mouth 4 [place] 00 :00 ([facility]) Medical times Branch daily for 10 days. fluconazole 2022- Yes [id number] 150mg Take 1 Univers (DIFLUCAN) 02-21- tablet by ity of 150 mg 00:00: 04:59 mouth [place] tablet 00 :00 now for 1 Medical dose. Branch fluconazole 2022- Yes [id number] 150mg Take 1 Univers (DIFLUCAN) 02-21-29 tablet by ity of 150 mg 00:00: 04:59 mouth once [place] tablet 00 :00 now for 1 Medical dose. Branch fluconazole 2022- No [id number] 150mg Take 1 Univers (DIFLUCAN) 4-28 04-29 tablet by ity of 150 mg 00:00: 04:59 mouth [place] tablet 00 :00 now for 1 Medical dose. Branch cetirizine Yes [id number] 10mg Take 1 U nivers (ZYRTEC) 10 1-29 tablet by ity of mg tablet 00:00: mouth [place] 00 the Medical morning. Branch fluconazole 2022-0 Yes [id number] Take 1 tab Univers (DIFLUCAN) 1-29 by mouth ity o f 150 mg 00:00: now and [place] tablet 00 repeat in Medical 3 days Branch Nebulizer 0 Yes [id number] Use as Un jac Accessories -29 directed ity of (ADULT 00:00: [place] AEROSOL 00 Medical MASK) [facility] Branch cetirizine Yes [id number] 10mg Take 1 U nivers (ZYRTEC) 10 1-29 tablet by ity of mg tablet 00:00: mouth [place] 00 the Medical morning. Branch fluconazole 0 Yes [id number] Take 1 tab Univers (DIFLUCAN) 1-29 by mouth ity o f 150 mg 00:00: now and [place] tablet 00 repeat in Medical 3 days Branch Nebulizer 2022-0 Yes [id number] Use as Un jac Accessories -29 directed ity of (ADULT 00:00: [place] AEROSOL 00 Medical MASK) [facility] Branch cetirizine Yes [id number] 10mg Take 1 U nivers (ZYRTEC) 10 1-29 tablet by ity of mg tablet 00:00: mouth in [place] 00 the Medical morning. Branch fluconazole 0 Yes [id number] Take 1 tab Univers (DIFLUCAN) 1-29 by mouth ity o f 150 mg 00:00: now and [place] tablet 00 repeat in Medical 3 days Branch Nebulizer 2022-0 Yes [id number] Use as Un jac Accessories -29 directed ity of (ADULT 00:00: [place] AEROSOL 00 Medical MASK) [place] Branch cetirizine 2022- Yes [id number] 10mg Take 1 U nivers (ZYRTEC) 10 1-29 tablet by ity of mg tablet 00:00: mouth [place] 00 the Medical morning. Branch fluconazole 2022-0 Yes [id number] Take 1 tab Univers (DIFLUCAN) 1-29 by mouth ity o f 150 mg 00:00: now and [place] tablet 00 repeat in Medical 3 days Branch Nebulizer Yes [id number] Use as Un jac Accessories - directed ity of (ADULT 00:00: [place] AEROSOL 00 Medical MASK) [facility] Branch cetirizine Yes [id number] 10mg Take 1 U nivers (ZYRTEC) 10 1-29 tablet by ity of mg tablet 00:00: mouth in [place] 00 the Medical morning. Branch fluconazole Yes [id number] Take 1 tab Univers (DIFLUCAN) -29 by mouth ity o f 150 mg 00:00: now and [place] tablet 00 repeat in Medical 3 days Branch Nebulizer Yes [id number] Use as Un jac Accessories - directed ity of (ADULT 00:00: [place] AEROSOL 00 Medical MASK) [facility] Branch cetirizine Yes [id number] 10mg Take 1 U nivers (ZYRTEC) 10 -29 tablet by ity of mg tablet 00:00: mouth in [place] 00 the Medical morning. Branch fluconazole Yes [id number] Take 1 tab Univers (DIFLUCAN) 1-29 by mouth ity o f 150 mg 00:00: now and [place] tablet 00 repeat in Medical 3 days Branch Nebulizer Yes [id number] Use as Un jac Accessories - directed ity of (ADULT 00:00: [place] AEROSOL 00 Medical MASK) [facility] Branch cetirizine Yes [id number] 10mg Take 1 U nivers (ZYRTEC) 10 1-29 tablet by ity of mg tablet 00:00: mouth in [place] 00 the Medical morning. Branch fluconazole 0 Yes [id number] Take 1 tab Univers (DIFLUCAN) 1-29 by mouth ity o f 150 mg 00:00: now and [place] tablet 00 repeat in Medical 3 days Branch Nebulizer Yes [id number] Use as Un jac Accessories -29 directed ity of (ADULT 00:00: [place] AEROSOL 00 Medical MASK) [facility] Branch cetirizine Yes [id number] 10mg Take 1 U nivers (ZYRTEC) 10 1-29 tablet by ity of mg tablet 00:00: mouth [place] 00 the Medical morning. Branch fluconazole Yes [id number] Take 1 tab Univers (DIFLUCAN) 1-29 by mouth ity o f 150 mg 00:00: now and [place] tablet 00 repeat in Medical 3 days Branch Nebulizer 0 Yes [id number] Use as Un jac Accessories 1-29 directed ity of (ADULT 00:00: [place] AEROSOL 00 Medical MASK) [place] Branch cetirizine Yes [id number] 10mg Take 1 U nivers (ZYRTEC) 10 1-29 tablet by ity of mg tablet 00:00: mouth in [place] 00 the Medical morning. Branch fluconazole Yes [id number] Take 1 tab Univers (DIFLUCAN) 1-29 by mouth ity o f 150 mg 00:00: now and [place] tablet 00 repeat in Medical 3 days Branch Nebulizer Yes [id number] Use as Un jac Accessories -29 directed ity of (ADULT 00:00: [place] AEROSOL 00 Medical MASK) [facility] Branch cetirizine Yes [id number] 10mg Take 1 U nivers (ZYRTEC) 10 1-29 tablet by ity of mg tablet 00:00: mouth in [place] 00 the Medical morning. Branch fluconazole Yes [id number] Take 1 tab Univers (DIFLUCAN) 1-29 by mouth ity o f 150 mg 00:00: now and [place] tablet 00 repeat in Medical 3 days Branch Nebulizer Yes [id number] Use as Un jac Accessories -29 directed ity of (ADULT 00:00: [place] AEROSOL 00 Medical MASK) [facility] Branch cetirizine Yes [id number] 10mg Take 1 U nivers (ZYRTEC) 10 1-29 tablet by ity of mg tablet 00:00: mouth in [place] 00 the Medical morning. Branch fluconazole Yes [id number] Take 1 tab Univers (DIFLUCAN) 1-29 by mouth ity o f 150 mg 00:00: now and [place] tablet 00 repeat in Medical 3 days Branch Nebulizer Yes [id number] Use as Un jac Accessories 1-29 directed ity of (ADULT 00:00: [place] AEROSOL 00 Medical MASK) [facility] Branch cetirizine Yes [id number] 10mg Take 1 U nivers (ZYRTEC) 10 1-29 tablet by ity of mg tablet 00:00: mouth in [place] 00 the Medical morning. Branch fluconazole 0 Yes [id number] Take 1 tab Univers (DIFLUCAN) 1-29 by mouth ity o f 150 mg 00:00: now and [place] tablet 00 repeat in Medical 3 days Branch Nebulizer 0 Yes [id number] Use as Un jac Accessories - directed ity of (ADULT 00:00: [place] AEROSOL 00 Medical MASK) [facility] Branch cetirizine Yes [id number] 10mg Take 1 U nivers (ZYRTEC) 10 1-29 tablet by ity of mg tablet 00:00: mouth in [place] 00 the Medical morning. Branch fluconazole 0 Yes [id number] Take 1 tab Univers (DIFLUCAN) 1-29 by mouth ity o f 150 mg 00:00: now and [place] tablet 00 repeat in Medical 3 days Branch Nebulizer 0 Yes [id number] Use as Un jac Accessories -29 directed ity of (ADULT 00:00: [place] AEROSOL 00 Medical MASK) [facility] Branch cetirizine Yes [id number] 10mg Take 1 U nivers (ZYRTEC) 10 1-29 tablet by ity of mg tablet 00:00: mouth [place] 00 the Medical morning. Branch fluconazole 2022-0 Yes [id number] Take 1 tab Univers (DIFLUCAN) 1-29 by mouth ity o f 150 mg 00:00: now and [place] tablet 00 repeat in Medical 3 days Branch Nebulizer 0 Yes [id number] Use as Un jac Accessories - directed ity of (ADULT 00:00: [place] AEROSOL 00 Medical MASK) [facility] Branch cetirizine Yes [id number] 10mg Take 1 U nivers (ZYRTEC) 10 1-29 tablet by ity of mg tablet 00:00: mouth [place] 00 the Medical morning. Branch fluconazole 2022-0 Yes [id number] Take 1 tab Univers (DIFLUCAN) 1-29 by mouth ity o f 150 mg 00:00: now and [place] tablet 00 repeat in Medical 3 days Branch Nebulizer Yes [id number] Use as Un jca Accessories -29 directed ity of (ADULT 00:00: [place] AEROSOL 00 Medical MASK) Misc Branch albuterol 2022- No [id number] 2.5mg Inhale 0.5 Univers 2.5 mg/0.5 11-24 03-01 mL every 6 it y of mL 00:00: 05:59 (six) [place] nebulizer 00 :00 hours as Medica l solution needed for Branc h Wheezing for up to 30 days. amoxicillin 2022- No [id number] 1{tbl} Take 1 Univers -clavulanat 11-24 02-09 tablet by it y of e 00:00: 05:59 mouth in [place] (AUGMENTIN) 00 :00 [facility] 875-125 mg morning Branch per tablet and 1 tablet in the evening. Do all this for 10 days. sulfamethox 2021- No [id number] 1{tbl} Take 1 Univers azole-trime 9-24 10-02 tablet by it y of thoprim 00:00: 04:59 mouth in [place] (BACTRIM 00 :00 the Medical DS) 800-160 morning Branc h mg per and 1 tablet tablet in the evening. Do all this for 7 days. ondansetron Yes [id number] 4mg Take 1 Univers 4 mg 9-21 tablet by ity of disintegrat 00:00: mouth [place] ing tablet 00 every 8 Medica l (eight) Branch hours as needed for Nausea and Vomiting (N/V). cetirizine Yes [id number] 10mg Take 1 U nivers (ZYRTEC) 10 9-21 tablet by ity of mg tablet 00:00: mouth in [place] 00 the Medical morning. Branch ondansetron Yes [id number] 4mg Take 1 Univers 4 mg 9-21 tablet by ity of disintegrat 00:00: mouth [place] ing tablet 00 every 8 Medica l (eight) Branch hours as needed for Nausea and Vomiting (N/V). cetirizine Yes [id number] 10mg Take 1 U nivers (ZYRTEC) 10 9-21 tablet by ity of mg tablet 00:00: mouth in [place] 00 the Medical morning. Branch ondansetron 2021-0 Yes [id number] 4mg Take 1 Univers 4 mg 9-21 tablet by ity of disintegrat 00:00: mouth [place] ing tablet 00 every 8 Medica l (eight) Branch hours as needed for Nausea and Vomiting (N/V). cetirizine 2021-0 Yes [id number] 10mg Take 1 U nivers (ZYRTEC) 10 9-21 tablet by ity of mg tablet 00:00: mouth in [place] 00 the Medical morning. Branch ondansetron 2021-0 Yes [id number] 4mg Take 1 Univers 4 mg 9-21 tablet by ity of disintegrat 00:00: mouth [place] ing tablet 00 every 8 Medica l (eight) Branch hours as needed for Nausea and Vomiting (N/V). ondansetron 2021-0 Yes [id number] 4mg Take 1 Univers 4 mg 9-21 tablet by ity of disintegrat 00:00: mouth [place] ing tablet 00 every 8 Medica l (eight) Branch hours as needed for Nausea and Vomiting (N/V). ondansetron 2021-0 Yes [id number] 4mg Take 1 Univers 4 mg 9-21 tablet by ity of disintegrat 00:00: mouth [place] ing tablet 00 every 8 Medica l (eight) Branch hours as needed for Nausea and Vomiting (N/V). ondansetron 2021-0 Yes [id number] 4mg Take 1 Univers 4 mg 9-21 tablet by ity of disintegrat 00:00: mouth [place] ing tablet 00 every 8 Medica l (eight) Branch hours as needed for Nausea and Vomiting (N/V). ondansetron 2021-0 Yes [id number] 4mg Take 1 Univers 4 mg 9-21 tablet by ity of disintegrat 00:00: mouth [place] ing tablet 00 every 8 Medica l (eight) Branch hours as needed for Nausea and Vomiting (N/V). ondansetron 2-0 2023- No [id number] 4mg Take 1 Univers 4 mg 9-21 04-28 tablet by ity of disintegrat 00:00: 00:00 mouth [place] ing tablet 00 :00 every 8 Medica l (eight) Branch hours as needed for Nausea and Vomiting (N/V). ondansetron 2022- No [id number] 4mg Take 1 Univers 4 mg 07-17 tablet by ity of disintegrat 00:00: 00:00 mouth [place] ing tablet 00 :00 every 8 Medica l (eight) Branch hours as needed for Nausea and Vomiting (N/V). ondansetron 2022- No [id number] 4mg Take 1 Univers 4 mg 07-17 tablet by ity of disintegrat 00:00: 00:00 mouth [place] ing tablet 00 :00 every 8 Medica l (eight) Branch hours as needed for Nausea and Vomiting (N/V). cetirizine 2022- No [id number] 10mg Take 1 Univers (ZYRTEC) 10 07-17 tablet by it y of mg tablet 00:00: 00:00 mouth in [place] 00 :00 the Medical morning. Branch polymyxin B 2021- No [id number] 1[drp] Place 1 Univers sulf-trimet 07-17 Drop in ity of hoprim 00:00: 04:59 both eyes [place] 10,000 00 :00 4 (four) Medical unit- 1 times Branch mg/mL daily for ophthalmic 7 days. drops polymyxin B 2021- No [id number] 1[drp] Place 1 Univers sulf-trimet 07-17 Drop in ity of hoprim 00:00: 04:59 both eyes [place] 10,000 00 :00 4 (four) Medical unit- 1 times Branch mg/mL daily for ophthalmic 7 days. drops fluconazole 2021- No [id number] 150mg Take 1 Univers (DIFLUCAN) 07-17 tablet by ity of 150 mg 00:00: 04:59 mouth [place] tablet 00 :00 now for 1 Medical dose. Branch amoxicillin 2021- No [id number] 1{tbl} Take 1 Univers -clavulanat 8-17 08-25 tablet by it y of e 00:00: 04:59 mouth in [place] (AUGMENTIN) 00 :00 the Medical 875-125 mg morning Branch per tablet and 1 tablet in the evening. Do all this for 7 days. benzonatate 2021- No [id number] 200mg Take 1 Univers 200 mg 6-19 06-30 capsule by ity of capsule 00:00: 04:59 mouth 3 [place] 00 :00 (three) Medical times Branch daily as needed for Cough for up to 10 days. amoxicillin 2021- No [id number] 1{tbl} Take 1 Univers -clavulanat 6-19 06-27 tablet by it y of e 00:00: 04:59 mouth 2 [place] (AUGMENTIN) 00 :00 (two) Medical 875-125 mg times Branch per tablet daily for 7 days. amoxicillin 2021- No [id number] 1{tbl} Take 1 Univers -clavulanat 6-08 06-16 tablet by it y of e 875-125 00:00: 04:59 mouth 2 [place] mg per 00 :00 (two) Medical tablet times Branch daily for 7 days. ibuprofen Yes [id number] 600mg Take 1 Univers 600 mg 5-24 100 tablet by ity of tablet 00:00: mouth [place] 00 every 6 Medical (six) Branch hours as needed for Pain (scale 4-6). ibuprofen Yes [id number] 600mg Take 1 Univers 600 mg 5-24 100 tablet by ity of tablet 00:00: mouth [place] 00 every 6 Medical (six) Branch hours as needed for Pain (scale 4-6). ibuprofen Yes [id number] 600mg Take 1 Univers 600 mg 5-24 100 tablet by ity of tablet 00:00: mouth [place] 00 every 6 Medical (six) Branch hours as needed for Pain (scale 4-6). ibuprofen 0 Yes [id number] 600mg Take 1 Univers 600 mg 5-24 100 tablet by ity of tablet 00:00: mouth [place] 00 every 6 Medical (six) Branch hours as needed for Pain (scale 4-6). ibuprofen 2021- No [id number] 600mg Take 1 Univers 600 mg 5-24 09-21 100 tablet by ity of tablet 00:00: 00:00 mouth [place] 00 :00 every 6 Medical (six) Branch hours as needed for Pain (scale 4-6). guaiFENesin 2020-10 Yes [id number] 400mg Take 1 Univers 400 mg 2-06 tablet by ity of tablet 00:00: mouth [place] 00 every 4 Medical (four) Branch hours as needed for Cough. ondansetron 2020-10 Yes [id number] 4mg Take 1 Univers 4 mg 2-06 tablet by ity of disintegrat 00:00: mouth [place] ing tablet 00 every 8 Medica l (eight) Branch hours as needed for Nausea and Vomiting (N/V). albuterol 2020-10 Yes [id number] 2{puff} Inhale 2 Univers 90 2-06 Puffs ity of mcg/actuati 00:00: every 6 [place] on inhaler 00 (six) Medical hours as Branch needed for Wheezing or Shortness of Breath. budesonide- 2020-10 Yes [id number] 2{puff} Inhale 2 Univers formoteroL 2-06 Puffs 2 ity of (SYMBICORT) 00:00: (two) [place] 160-4.5 00 times Medical mcg/actuati daily. Branch on inhaler guaiFENesin 2020-10 Yes [id number] 400mg Take 1 Univers 400 mg 2-06 tablet by ity of tablet 00:00: mouth [place] 00 every 4 Medical (four) Branch hours as needed for Cough. ondansetron 2020-10 Yes [id number] 4mg Take 1 Univers 4 mg 2-06 tablet by ity of disintegrat 00:00: mouth [place] ing tablet 00 every 8 Medica l (eight) Branch hours as needed for Nausea and Vomiting (N/V). albuterol 2020-10 Yes [id number] 2{puff} Inhale 2 Univers 90 2-06 Puffs ity of mcg/actuati 00:00: every 6 [place] on inhaler 00 (six) Medical hours as Branch needed for Wheezing or Shortness of Breath. budesonide- 2020-10 Yes [id number] 2{puff} Inhale 2 Univers formoteroL 2-06 Puffs 2 ity of (SYMBICORT) 00:00: (two) [place] 160-4.5 00 times Medical mcg/actuati daily. Branch on inhaler ondansetron 2020-10 Yes [id number] 4mg Take 1 Univers 4 mg 2-06 tablet by ity of disintegrat 00:00: mouth [place] ing tablet 00 every 8 Medica l (eight) Branch hours as needed for Nausea and Vomiting (N/V). albuterol 2020-10 Yes [id number] 2{puff} Inhale 2 Univers 90 2-06 Puffs ity of mcg/actuati 00:00: every 6 [place] on inhaler 00 (six) Medical hours as Branch needed for Wheezing or Shortness of Breath. budesonide- 2020-10 Yes [id number] 2{puff} Inhale 2 Univers formoteroL 2-06 Puffs 2 ity of (SYMBICORT) 00:00: (two) [place] 160-4.5 00 times Medical mcg/actuati daily. Branch on inhaler ondansetron 2020-10 Yes [id number] 4mg Take 1 Univers 4 mg 2-06 tablet by ity of disintegrat 00:00: mouth [place] ing tablet 00 every 8 Medica l (eight) Branch hours as needed for Nausea and Vomiting (N/V). albuterol 2020-10 Yes [id number] 2{puff} Inhale 2 Univers 90 2-06 Puffs ity of mcg/actuati 00:00: every 6 [place] on inhaler 00 (six) Medical hours as Branch needed for Wheezing or Shortness of Breath. budesonide- 2020-10 Yes [id number] 2{puff} Inhale 2 Univers formoteroL 2-06 Puffs 2 ity of (SYMBICORT) 00:00: (two) [place] 160-4.5 00 times Medical mcg/actuati daily. Branch on inhaler ondansetron 2020-10 Yes [id number] 4mg Take 1 Univers 4 mg 2-06 tablet by ity of disintegrat 00:00: mouth [place] ing tablet 00 every 8 Medica l (eight) Branch hours as needed for Nausea and Vomiting (N/V). albuterol 2020-10 Yes [id number] 2{puff} Inhale 2 Univers 90 2-06 Puffs ity of mcg/actuati 00:00: every 6 [place] inhaler 00 (six) Medical hours as Branch needed for Wheezing or Shortness of Breath. budesonide- 2020-10 Yes [id number] 2{puff} Inhale 2 Univers formoteroL 2-06 Puffs 2 ity of (SYMBICORT) 00:00: (two) [place] 160-4.5 00 times Medical mcg/actuati daily. Branch on inhaler ondansetron 2020-10 Yes [id number] 4mg Take 1 Univers 4 mg 2-06 tablet by ity of disintegrat 00:00: mouth [place] ing tablet 00 every 8 Medica l (eight) Branch hours as needed for Nausea and Vomiting (N/V). albuterol 2020-10 Yes [id number] 2{puff} Inhale 2 Univers 90 2-06 Puffs ity of mcg/actuati 00:00: every 6 [place] on inhaler 00 (six) Medical hours as Branch needed for Wheezing or Shortness of Breath. budesonide- 2020-10 Yes [id number] 2{puff} Inhale 2 Univers formoteroL 2-06 Puffs 2 ity of (SYMBICORT) 00:00: (two) [place] 160-4.5 00 times Medical mcg/actuati daily. Branch on inhaler ondansetron 2020-10 Yes [id number] 4mg Take 1 Univers 4 mg 2-06 tablet by ity of disintegrat 00:00: mouth [place] ing tablet 00 every 8 Medica l (eight) Branch hours as needed for Nausea and Vomiting (N/V). albuterol 2020-10 Yes [id number] 2{puff} Inhale 2 [facility] 90 2-06 Puffs ity of mcg/actuati 00:00: every 6 [place] on inhaler 00 (six) Medical hours as Branch needed for Wheezing or Shortness of Breath. budesonide- 2020-10 Yes [id number] 2{puff} Inhale 2 [facility] formoteroL 2-06 Puffs 2 ity of (SYMBICORT) 00:00: (two) [place] 160-4.5 00 times Medical mcg/actuati daily. Branch on inhaler ondansetron 2020-10 Yes [id number] 4mg Take 1 [facility] 4 mg 2-06 tablet by ity of disintegrat 00:00: mouth [place] ing tablet 00 every 8 Medica l (eight) Branch hours as needed for Nausea and Vomiting (N/V). albuterol 2020-10 Yes [id number] 2{puff} Inhale 2 [facility] 90 2-06 Puffs ity of mcg/actuati 00:00: every 6 [place] on inhaler 00 (six) Medical hours as Branch needed for Wheezing or Shortness of Breath. budesonide- 2020-10 Yes [id number] 2{puff} Inhale 2 [facility] formoteroL 2-06 Puffs 2 ity of (SYMBICORT) 00:00: (two) [place] 160-4.5 00 times Medical mcg/actuati daily. Branch on inhaler ondansetron 2020-10 Yes [id number] 4mg Take 1 [facility] 4 mg 2-06 tablet by ity of disintegrat 00:00: mouth [place] ing tablet 00 every 8 Medica l (eight) Branch hours as needed for Nausea and Vomiting (N/V). albuterol 2020-10 Yes [id number] 2{puff} Inhale 2 [facility] 90 2-06 Puffs ity of mcg/actuati 00:00: every 6 [place] on inhaler 00 (six) Medical hours as Branch needed for Wheezing or Shortness of Breath. budesonide- 2020-10 Yes [id number] 2{puff} Inhale 2 [facility] formoteroL 2-06 Puffs 2 ity of (SYMBICORT) 00:00: (two) [place] 160-4.5 00 times Medical mcg/actuati daily. Branch on inhaler ondansetron 2020-10 Yes [id number] 4mg Take 1 [facility] 4 mg 2-06 tablet by ity of disintegrat 00:00: mouth [place] ing tablet 00 every 8 Medica l (eight) Branch hours as needed for Nausea and Vomiting (N/V). albuterol 2020-10 Yes [id number] 2{puff} Inhale 2 [facility] 90 2-06 Puffs ity of mcg/actuati 00:00: every 6 [place] on inhaler 00 (six) Medical hours as Branch needed for Wheezing or Shortness of Breath. budesonide- 2020-10 Yes [id number] 2{puff} Inhale 2 [facility] formoteroL 2-06 Puffs 2 ity of (SYMBICORT) 00:00: (two) [place] 160-4.5 00 times Medical mcg/actuati daily. Branch on inhaler albuterol 2020-10 Yes [id number] 2{puff} Inhale 2 [facility] 90 2-06 Puffs ity of mcg/actuati 00:00: every 6 [place] inhaler 00 (six) Medical hours as Branch needed for Wheezing or Shortness of Breath. budesonide- 2020-10 Yes [id number] 2{puff} Inhale 2 [facility] formoteroL 2-06 Puffs 2 ity of (SYMBICORT) 00:00: (two) [place] 160-4.5 00 times Medical mcg/actuati daily. Branch on inhaler albuterol 2020-10 Yes [id number] 2{puff} Inhale 2 [facility] 90 2-06 Puffs ity of mcg/actuati 00:00: every 6 [place] inhaler 00 (six) Medical hours as Branch needed for Wheezing or Shortness of Breath. budesonide- 2020-10 Yes [id number] 2{puff} Inhale 2 [facility] formoteroL 2-06 Puffs 2 ity of (SYMBICORT) 00:00: (two) [place] 160-4.5 00 times Medical mcg/actuati daily. Branch on inhaler albuterol 2020-10 Yes [id number] 2{puff} Inhale 2 [facility] 90 2-06 Puffs ity of mcg/actuati 00:00: every 6 [place] on inhaler 00 (six) Medical hours as Branch needed for Wheezing or Shortness of Breath. budesonide- 2020-10 Yes [id number] 2{puff} Inhale 2 [facility] formoteroL 2-06 Puffs 2 ity of (SYMBICORT) 00:00: (two) [place] 160-4.5 00 times Medical mcg/actuati daily. Branch on inhaler albuterol 2020-10 Yes [id number] 2{puff} Inhale 2 [facility] 90 2-06 Puffs ity of mcg/actuati 00:00: every 6 [place] on inhaler 00 (six) Medical hours as Branch needed for Wheezing or Shortness of Breath. budesonide- 2020-10 Yes [id number] 2{puff} Inhale 2 [facility] formoteroL 2-06 Puffs 2 ity of (SYMBICORT) 00:00: (two) [place] 160-4.5 00 times Medical mcg/actuati daily. Branch on inhaler albuterol 2020-10 Yes [id number] 2{puff} Inhale 2 [facility] 90 2-06 Puffs ity of mcg/actuati 00:00: every 6 [place] on inhaler 00 (six) Medical hours as Branch needed for Wheezing or Shortness of Breath. budesonide- 2020-10 Yes [id number] 2{puff} Inhale 2 [facility] formoteroL 2-06 Puffs 2 ity of (SYMBICORT) 00:00: (two) [place] 160-4.5 00 times Medical mcg/actuati daily. Branch on inhaler albuterol 2020-10 Yes [id number] 2{puff} Inhale 2 [facility] 90 2-06 Puffs ity of mcg/actuati 00:00: every 6 [place] inhaler 00 (six) Medical hours as Branch needed for Wheezing or Shortness of Breath. budesonide- 2020-10 Yes [id number] 2{puff} Inhale 2 [facility] formoteroL 2-06 Puffs 2 ity of (SYMBICORT) 00:00: (two) [place] 160-4.5 00 times Medical mcg/actuati daily. Branch on inhaler albuterol 2020-10 Yes [id number] 2{puff} Inhale 2 [facility] 90 2-06 Puffs ity of mcg/actuati 00:00: every 6 [place] inhaler 00 (six) Medical hours as Branch needed for Wheezing or Shortness of Breath. budesonide- 2020-10 Yes [id number] 2{puff} Inhale 2 [facility] formoteroL 2-06 Puffs 2 ity of (SYMBICORT) 00:00: (two) [place] 160-4.5 00 times Medical mcg/actuati daily. Branch on inhaler albuterol 2020-10 Yes [id number] 2{puff} Inhale 2 [facility] 90 2-06 Puffs ity of mcg/actuati 00:00: every 6 [place] inhaler 00 (six) Medical hours as Branch needed for Wheezing or Shortness of Breath. budesonide- 2020-10 Yes [id number] 2{puff} Inhale 2 [facility] formoteroL 2-06 Puffs 2 ity of (SYMBICORT) 00:00: (two) [place] 160-4.5 00 times Medical mcg/actuati daily. Branch on inhaler albuterol 2020-10 Yes [id number] 2{puff} Inhale 2 [facility] 90 2-06 Puffs ity of mcg/actuati 00:00: every 6 [place] inhaler 00 (six) Medical hours as Branch needed for Wheezing or Shortness of Breath. budesonide- 2020-10 Yes [id number] 2{puff} Inhale 2 [facility] formoteroL 2-06 Puffs 2 ity of (SYMBICORT) 00:00: (two) [place] 160-4.5 00 times Medical mcg/actuati daily. Branch on inhaler albuterol 2020-10 Yes [id number] 2{puff} Inhale 2 [facility] 90 2-06 Puffs ity of mcg/actuati 00:00: every 6 [place] inhaler 00 (six) Medical hours as Branch needed for Wheezing or Shortness of Breath. budesonide- 2020-10 Yes [id number] 2{puff} Inhale 2 [facility] formoteroL 2-06 Puffs 2 ity of (SYMBICORT) 00:00: (two) [place] 160-4.5 00 times Medical mcg/actuati daily. Branch on inhaler benzonatate 2020-10 Yes [id number] 200mg Take 2 [facility] 100 mg 2-06 capsules [facility] of capsule 00:00: [place] mouth 2 [place] 00 (two) [facility] times Branch daily as needed for Cough. guaiFENesin 2020-10 Yes [id number] 400mg Take 1 [facility] 400 mg 2-06 tablet by ity of tablet 00:00: mouth [place] 00 every 4 Medical (four) Branch hours as needed for Cough. ondansetron 2020-10 Yes [id number] 4mg Take 1 [facility] 4 mg 2-06 tablet by ity of disintegrat 00:00: mouth [place] ing tablet 00 every 8 Medica l (eight) Branch hours as needed for Nausea and Vomiting (N/V). albuterol 2020-10 Yes [id number] 2{puff} Inhale 2 [facility] 90 2-06 Puffs ity of mcg/actuati 00:00: every 6 [place] on inhaler 00 (six) Medical hours as Branch needed for Wheezing or Shortness of Breath. budesonide- 2020-10 Yes [id number] 2{puff} Inhale 2 [facility] formoteroL 2-06 Puffs 2 ity of (SYMBICORT) 00:00: (two) [place] 160-4.5 00 times Medical mcg/actuati daily. Branch on inhaler benzonatate 2020-10 Yes [id number] 200mg Take 2 [facility] 100 mg 2-06 capsules it[facility] of capsule 00:00: [place] mouth 2 [place] 00 (two) Medical times Branch daily as needed for Cough. guaiFENesin 2020-10 Yes [id number] 400mg Take 1 [facility] 400 mg 2-06 tablet by ity of tablet 00:00: mouth [place] 00 every 4 Medical (four) Branch hours as needed for Cough. ondansetron 2020-10 Yes [id number] 4mg Take 1 [facility] 4 mg 2-06 tablet by ity of disintegrat 00:00: mouth [place] ing tablet 00 every 8 Medica l (eight) Branch hours as needed for Nausea and Vomiting (N/V). albuterol 2020-10 Yes [id number] 2{puff} Inhale 2 [facility] 90 2-06 Puffs ity of mcg/actuati 00:00: every 6 [place] on inhaler 00 (six) Medical hours as Branch needed for Wheezing or Shortness of Breath. budesonide- 2020-10 Yes [id number] 2{puff} Inhale 2 [facility] formoteroL 2-06 Puffs 2 ity of (SYMBICORT) 00:00: (two) [place] 160-4.5 00 times Medical mcg/actuati daily. Branch on inhaler benzonatate 2020-10 Yes [id number] 200mg Take 2 [facility] 100 mg 2-06 capsules ity of capsule 00:00: [place] mouth 2 [place] 00 (two) Medical times Branch daily as needed for Cough. guaiFENesin 2020-10 Yes [id number] 400mg Take 1 [facility] 400 mg 2-06 tablet by ity of tablet 00:00: mouth [place] 00 every 4 Medical (four) Branch hours as needed for Cough. ondansetron 2020-10 Yes [id number] 4mg Take 1 [facility] 4 mg 2-06 tablet by ity of disintegrat 00:00: mouth [place] ing tablet 00 every 8 Medica l (eight) Branch hours as needed for Nausea and Vomiting (N/V). albuterol 2020-10 Yes [id number] 2{puff} Inhale 2 [facility] 90 2-06 Puffs ity of mcg/actuati 00:00: every 6 [place] inhaler 00 (six) Medical hours as Branch needed for Wheezing or Shortness of Breath. budesonide- 2020-10 Yes [id number] 2{puff} Inhale 2 [facility] formoteroL 2-06 Puffs 2 ity of (SYMBICORT) 00:00: (two) [place] 160-4.5 00 times Medical mcg/actuati daily. Branch on inhaler benzonatate 2020-10 Yes [id number] 200mg Take 2 [facility] 100 mg 2-06 capsules ity of capsule 00:00: [place] mouth 2 [place] 00 (two) Medical times Branch daily as needed for Cough. guaiFENesin 2020-10 Yes [id number] 400mg Take 1 [facility] 400 mg 2-06 tablet by ity of tablet 00:00: mouth [place] 00 every 4 Medical (four) Branch hours as needed for Cough. ondansetron 2020-10 Yes [id number] 4mg Take 1 [facility] 4 mg 2-06 tablet by ity of disintegrat 00:00: mouth [place] ing tablet 00 every 8 Medica l (eight) Branch hours as needed for Nausea and Vomiting (N/V). albuterol 2020-10 Yes [id number] 2{puff} Inhale 2 [facility] 90 2-06 Puffs ity of mcg/actuati 00:00: every 6 [place] inhaler 00 (six) Medical hours as Branch needed for Wheezing or Shortness of Breath. budesonide- 2020-10 Yes [id number] 2{puff} Inhale 2 [facility] formoteroL 2-06 Puffs 2 ity of (SYMBICORT) 00:00: (two) [place] 160-4.5 00 times Medical mcg/actuati daily. Branch on inhaler ondansetron 2020-10- No [id number] 4mg Take 1 [facility] 4 mg 2-06 04-28 tablet by ity of disintegrat 00:00: 00:00 [place] tablet 00 :00 every 8 Medica l (eight) Branch hours as needed for Nausea and Vomiting (N/V). ondansetron 2020-10- No [id number] 4mg Take 1 [facility] 4 mg 2-06 04-28 tablet by ity of disintegrat 00:00: 00:00 [place] tablet 00 :00 every 8 Medica l (eight) Branch hours as needed for Nausea and Vomiting (N/V). ondansetron 2020-10- No [id number] 4mg Take 1 [facility] 4 mg 12-02 tablet by ity of disintegrat 00:00: 00:00 [place] tablet 00 :00 every 8 Medica l (eight) Branch hours as needed for Nausea and Vomiting (N/V). guaiFENesin 2020-10- No [id number] 400mg Take 1 [facility] 400 mg 12-02 tablet by ity of tablet 00:00: 00:00 mouth [place] 00 :00 every 4 Medical (four) Branch hours as needed for Cough. benzonatate 2020-10- No [id number] 200mg Take 2 [facility] 100 mg 12-02 capsules ity of capsule 00:00: 00:00 by mouth 2 [place] 00 :00 (two) Medical times Branch daily as needed for Cough. amoxicillin 2020-10- No [id number] 1{tbl} Take 1 Univers -clavulanat 12-02 1214 tablet by it y of e 00:00: [...] 14 :00 dose, Medical mg Starting Branch 08/04/20 at 1554, Until Fri08/04/20 at 1601, Routine, Nausea and Vomiting (N/V), PACU ondansetron 2019-10 2020- No ONCE INTRA Univers (ZOFRAN 08-04 PROCEDURE, ity o f (PF)) 20:14: 20:54 Starting [place] injection 00 :20 [facility] Medical 08/04/20 at Branch 1514, Until Fri08/04/20 at 1554, Routine, Intra-op bupivacaine 2019-10 Yes PRN, Univer s -epinephrin Starting ity of e-pf 20:12: Fri [place] (SENSORCAIN 00 08/04/20 at Hi dical E 1512, Branch W/EPINEPHRI Until NE) 0.25 Discontinu %-1:200,000 ed, injection Routine, Intra-op PHENYLephri 2019-10 2020- No ONCE INTRA Univers ne 1000 08-04 PROCEDURE, ity o f mcg/10 mL 20:05: 20:54 Starting [place] in 0.9% 00 :20 [facility] NaCl 08/04/20 at [place] syringe 1505, Until Fri08/04/20 at 1554, Routine, [...] 2020- No ONCE INTRA U nivers (ANCEF) 008-04 PROCEDURE, ity o f injection 19:44: 20:54 Starting [place] 00 :20 Fri Medical 08/04/20 at Branch 1444, Until 08/04/20 at 1554, ELAINE, Intra-op acetaminoph 2019-10 2020- No Administer Univers en ADULT 008-04 over 15 ity of (OFIRMEV) 19:40: 20:54 Minutes, [place] injection 00 :20 ONCE INTRA Medi paul PROCEDURE, Branch Starting 08/04/20 at 1440, Until Fri08/04/20 at 1554, Routine, Intra-op propofoL IV 2019-10 2020- No ONCE INTRA Univers infusion 08-04 PROCEDURE, ity of 19:38: 20:54 Starting [place] 00 :20 [facility] Medical 08/04/20 at Branch 1438, Until 08/04/20 at 1554, Routine, Intra-op lidocaine 2019-10 2020- No ONCE INTRA U nivers 1% 08-04 PROCEDURE, ity of (XYLOCAINE) 19:37: 20:54 Starting [place] 100 mg/10 00 :20 [facility] Medical mL (1 %) 08/04/20 at [facility] h injection 1437, Until 08/04/20 at 1554, [...] 19:32: 20:54 Starting [place] 00 :20 [facility] Medical 08/04/20 at Branch 1432, Until 08/04/20 at 1554, Routine, Intra-op lactated 2019-10 2020- No CONTINUOUS Un jac ringers IV 0-09 10-09 PRN, ity of infusion 18:28: 20:54 [place] 00 :20 Fri Medical 08/04/20 at Branch 1328, Until 08/04/20 at 1554, Routine, Intra-op lactated 2019-10- No 1000mL at 42 Unive rs ringers IV 0-07 06-09 mL/hr, ity of infusion 16:15: 18:29 1,000 mL, [place] 1,000 mL 00 :00 IV Medical Infusion, Branch ONCE, 1 dose, 08/04/20 at 1115, Routine, DSU Pre-op gabapentin 2019-10- No [id number] 300mg Take 1 Univers 300 mg 0- capsule by ity of capsule 00:00: 05:59 mouth 3 [place] 00 :00 (three) Medical times Branch daily for 60 days. gabapentin 2019-10- No [id number] 300mg Take 1 [facility] 300 mg 0- capsule by ity of capsule 00:00: 05:59 mouth 3 [place] 00 :00 (three) Medical times Branch daily for 60 days. gabapentin 2019-10- No [id number] 300mg Take 1 [facility] 300 mg 0- [...] Indication s: acute pain ondansetron 2019-10- No [id number] 4mg Take 1 Univers 4 mg tablet 0-07 06-17 tablet by it y of 00:00: 04:59 mouth [place] 00 :00 every 8 Medical (eight) Branch hours as needed for Nausea and Vomiting (N/V) for up to 7 days. HYDROcodone 2019-10 No [id number] 1{tbl} Take 1 U nivers -acetaminop 0-09 10-17 tablet by it y of hen 5-325 00:00: 04:59 mouth [place] mg tablet 00 :00 every 6 Medical (six) Branch hours as needed for Pain (scale 4-6) for up to 7 days. Indication s: acute pain ondansetron 2019-10 2020- No [id number] 4mg Take 1 [facility] 4 mg tablet 0 10-17 tablet by it y of 00:00: 04:59 mouth [place] 00 :00 every 8 Medical (eight) Branch hours as needed for Nausea and Vomiting (N/V) for up to 7 days. nystatin-tr 2020-0 Yes [id number] Apply to Univers iamcinolone 8-10 area(s) 3 ity of cream 00:00: (three) [place] 00 times Medical daily. Branch nystatin-tr 2020-0 Yes [id number] Apply to Univers iamcinolone 8-10 area(s) 3 ity of cream 00:00: (three) [place] 00 times Medical daily. Branch nystatin-tr 2020-0 Yes [id number] Apply to Univers iamcinolone 8-10 area(s) 3 ity of cream 00:00: (three) [place] 00 times Medical daily. Branch nystatin-tr 2020-0 Yes [id number] Apply to Univers iamcinolone 8-10 area(s) 3 ity of cream 00:00: (three) [place] 00 times Medical daily. Branch nystatin-tr 2020-0 Yes [id number] Apply to Univers iamcinolone 8-10 area(s) 3 ity of cream 00:00: (three) [place] 00 times Medical daily. Branch nystatin-tr 2020-0 Yes [id number] Apply to Univers iamcinolone 8-10 area(s) 3 ity of cream 00:00: (three) [place] 00 times Medical daily. Branch nystatin-tr 2020-0 Yes [id number] Apply to Univers iamcinolone 8-10 area(s) 3 ity of cream 00:00: (three) [place] 00 times Medical daily. Branch nystatin-tr 2020-0 Yes [id number] Apply to Univers iamcinolone 8-10 area(s) 3 ity of cream 00:00: (three) [place] 00 times Medical daily. Branch nystatin-tr 2020-0 Yes [id number] Apply to Univers iamcinolone 8-10 area(s) 3 ity of cream 00:00: (three) [place] 00 times Medical daily. Branch nystatin-tr 2020-0 Yes [id number] Apply to Univers iamcinolone 8-10 area(s) 3 ity of cream 00:00: (three) [place] 00 times Medical daily. Branch nystatin-tr 2020-0 Yes [id number] Apply to Univers iamcinolone 8-10 area(s) 3 ity of cream 00:00: (three) [place] 00 times Medical daily. Branch nystatin-tr 2020-0 Yes [id number] Apply to Univers iamcinolone 8-10 area(s) 3 ity of cream 00:00: (three) [place] 00 times Medical daily. Branch nystatin-tr 2020-0 Yes [id number] Apply to Univers iamcinolone 8-10 area(s) 3 ity of cream 00:00: (three) [place] 00 times Medical daily. Branch nystatin-tr 2020-0 Yes [id number] Apply to Univers iamcinolone 8-10 area(s) 3 ity of cream 00:00: (three) [place] 00 times Medical daily. Branch nystatin-tr 2020-0 Yes [id number] Apply to Univers iamcinolone 8-10 area(s) 3 ity of cream 00:00: (three) [place] 00 times Medical daily. Branch nystatin-tr 2020-0 Yes [id number] Apply to Univers iamcinolone 8-10 area(s) 3 ity of cream 00:00: (three) [place] 00 times Medical daily. Branch nystatin-tr 2020-0 Yes [id number] Apply to Univers iamcinolone 8-10 area(s) 3 ity of cream 00:00: (three) [place] 00 times Medical daily. Branch nystatin-tr 2020-0 Yes [id number] Apply to Univers iamcinolone 8-10 area(s) 3 ity of cream 00:00: (three) [place] 00 times Medical daily. Branch nystatin-tr 2020-0 Yes [id number] Apply to Univers iamcinolone 8-10 area(s) 3 ity of cream 00:00: (three) [place] 00 times Medical daily. Branch nystatin-tr 2020-0 Yes [id number] Apply to Univers iamcinolone 8-10 area(s) 3 ity of cream 00:00: (three) [place] 00 times Medical daily. Branch nystatin-tr 2020-0 Yes [id number] Apply to Univers iamcinolone 8-10 area(s) 3 ity of cream 00:00: (three) [place] 00 times Medical daily. Branch nystatin-tr 2020-0 Yes [id number] Apply to Univers iamcinolone 8-10 area(s) 3 ity of cream 00:00: (three) [place] 00 times Medical daily. Branch nystatin-tr 2020-0 Yes [id number] Apply to Univers iamcinolone 8-10 area(s) 3 ity of cream 00:00: (three) [place] 00 times Medical daily. Branch nystatin-tr 2020-0 Yes [id number] Apply to Univers iamcinolone 8-10 area(s) 3 ity of cream 00:00: (three) [place] 00 times Medical daily. Branch nystatin-tr 2020-0 Yes [id number] Apply to Univers iamcinolone 8-10 area(s) 3 ity of cream 00:00: (three) [place] 00 times Medical daily. Branch nystatin-tr 2020-0 Yes [id number] Apply to Univers iamcinolone 8-10 area(s) 3 ity of cream 00:00: (three) [place] 00 times Medical daily. Branch nystatin-tr 2020-0 Yes [id number] Apply to Univers iamcinolone 8-10 area(s) 3 ity of cream 00:00: (three) [place] 00 times Medical daily. Branch nystatin-tr 2020-0 Yes [id number] Apply to Univers iamcinolone 8-10 area(s) 3 ity of cream 00:00: (three) [place] 00 times Medical daily. Branch nystatin-tr 2020-0 Yes [id number] Apply to Univers iamcinolone 8-10 area(s) 3 ity of cream 00:00: (three) [place] 00 times Medical daily. Branch nystatin-tr 2020-0 Yes [id number] Apply to Univers iamcinolone 8-10 area(s) 3 ity of cream 00:00: (three) [place] 00 times Medical daily. Branch nystatin-tr 2020-0 2022- No [id number] Apply to Univers iamcinolone 8-10 09-21 area(s) 3 it y of cream 00:00: 00:00 (three) [place] 00 :00 times Medical daily. Branch indomethaci 2020-0 Yes TK 1 C PO U nivers n 50 mg 5-06 Q 6 H PRN ity of capsule 00:00: [place] 00 Medical Branch indomethaci 2020-0 Yes TK 1 C PO U nivers n 50 mg 5-06 Q 6 H PRN ity of capsule 00:00: [place] 00 Medical Branch indomethaci 2020-0 Yes TK 1 C PO U nivers n 50 mg 5-06 Q 6 H PRN ity of capsule 00:00: [place] 00 Medical Branch indomethaci 2020-0 Yes TK 1 C PO U nivers n 50 mg 5-06 Q 6 H PRN ity of capsule 00:00: [place] 00 Medical Branch indomethaci 2020-0 Yes TK 1 C PO U nivers n 50 mg 5-06 Q 6 H PRN ity of capsule 00:00: [place] 00 Medical Branch indomethaci 2020-0 Yes TK 1 C PO U nivers n 50 mg 5-06 Q 6 H PRN ity of capsule 00:00: [place] 00 Medical Branch indomethaci 2020-0 Yes TK 1 C PO U nivers n 50 mg 5-06 Q 6 H PRN ity of capsule 00:00: [place] 00 Medical Branch indomethaci 2020-0 2020- No TK 1 C PO Univers n 50 mg 5-06 08-10 Q 6 H PRN ity of capsule 00:00: 00:00 [place] 00 :00 Medical Branch indomethaci 2020-0 2020- No TK 1 C PO Univers n 50 mg 5-06 08-10 Q 6 H PRN ity of capsule 00:00: 00:00 [place] 00 :00 Medical Branch indomethaci 2020-0 2020- No TK 1 C PO Univers n 50 mg 5-06 08-10 Q 6 H PRN ity of capsule 00:00: 00:00 [place] 00 :00 Medical Branch PROAIR HFA 2020-0 Yes Univers 90 4-09 ity of mcg/actuati 00:00: [place] on inhaler 00 Medical Branch PROAIR HFA 2020-0 Yes Univers 90 4-09 ity of mcg/actuati 00:00: [place] on inhaler 00 Medical Branch PROAIR HFA 2020-0 Yes Univers 90 4-09 ity of mcg/actuati 00:00: [place] on inhaler 00 Medical Branch PROAIR HFA [...] on inhaler 00 Medical Branch SYMBICORT 2020-0 1- No Univers 160-4.5 4-09 12-06 ity of mcg/actuati 00:00: 00:00 [place] on inhaler 00 :00 Medical Branch azithromyci 2020-0 2020- No Unive rs n 250 mg 02-02-10 ity of tablet 00:00: 00:00 [place] 00 :00 Medical Branch azithromyci 2020-0 2020- No Unive rs n 250 mg 02-02 08-10 ity of tablet 00:00: 00:00 [place] 00 :00 Medical Branch azithromyci 2020-0 2020- No Unive rs n 250 mg 02-02 08-10 ity of tablet 00:00: 00:00 [place] [...] :00 Medical tablet Branch norethindro 2020-0 Yes Univer s ne-ethinyl 1-30 ity of estradiol 00:00: [place] 1-20 mg-mcg 00 Medical per tablet Branch norethindro 2020-0 Yes Univer s ne-ethinyl 1-30 ity of estradiol 00:00: [place] 1-20 mg-mcg 00 Medical per tablet Branch norethindro 2020-0 Yes Univer s ne-ethinyl 1-30 ity of estradiol 00:00: [place] 1-20 mg-mcg 00 Medical per tablet Branch norethindro 2020-0 Yes Univer s ne-ethinyl 1-30 ity of estradiol 00:00: [place] 1-20 mg-mcg 00 Medical per tablet Branch norethindro 2020-0 Yes Univer s ne-ethinyl 1-30 ity of estradiol 00:00: [place] 1-20 mg-mcg 00 Medical per tablet Branch norethindro 2020-0 Yes Univer s ne-ethinyl 1-30 ity of estradiol 00:00: [place] 1-20 mg-mcg 00 Medical per tablet Branch norethindro 2020-0 Yes Univer s ne-ethinyl 1-30 ity of estradiol 00:00: [place] 1-20 mg-mcg 00 Medical per tablet Branch norethindro 2020-0 Yes Univer s ne-ethinyl 1-30 ity of estradiol 00:00: [place] 1-20 mg-mcg 00 Medical per tablet Branch norethindro 2020-0 Yes Univer s ne-ethinyl 1-30 ity of estradiol 00:00: [place] 1-20 mg-mcg 00 Medical per tablet Branch norethindro 2020-0 Yes Univer s ne-ethinyl 1-30 ity of estradiol 00:00: [place] 1-20 mg-mcg 00 Medical per tablet Branch norethindro 2020-0 Yes Shwetha s ne-ethinyl 1-30 ity of estradiol 00:00: [place] 1-20 mg-mcg 00 Medical per tablet Branch norethindro 2020-0 Yes Edytaer s ne-ethinyl 1-30 ity of estradiol 00:00: [place] 1-20 mg-mcg 00 Medical per tablet Branch norethindro 2020-0 Yes Shwetha s ne-ethinyl 1-30 ity of estradiol 00:00: [place] 1-20 mg-mcg 00 Medical per tablet Branch norethindro 2020-0 Yes Shwetha s ne-ethinyl 1-30 ity of estradiol 00:00: [place] 1-20 mg-mcg 00 Medical per tablet Branch norethindro 2020-0 Yes Shwetha s ne-ethinyl 1-30 ity of estradiol 00:00: [place] 1-20 mg-mcg 00 Medical per tablet Branch norethindro 2020-0 Yes Shwetha s ne-ethinyl 1-30 ity of estradiol 00:00: [place] 1-20 mg-mcg 00 Medical per tablet Branch norethindro 2020-0 Yes Shwetha s ne-ethinyl 1-30 ity of estradiol 00:00: [place] 1-20 mg-mcg 00 Medical per tablet Branch norethindro 2020-0 Yes Shwetha s ne-ethinyl 1-30 ity of estradiol 00:00: [place] 1-20 mg-mcg 00 Medical per tablet Branch norethindro 2020-0 Yes Shwetha hanson ne-ethinyl 1-30 ity of estradiol 00:00: [place] 1-20 mg-mcg 00 Medical per tablet Branch norethindro 2020-0 Yes Shwetha s ne-ethinyl 1-30 ity of estradiol 00:00: [place] 1-20 mg-mcg 00 Medical per tablet Branch norethindro 2020-0 Yes Shwetha s ne-ethinyl 1-30 ity of estradiol 00:00: [place] 1-20 mg-mcg 00 Medical per tablet Branch norethindro 2020-0 Yes Shwetha s ne-ethinyl 1-30 ity of estradiol 00:00: [place] 1-20 mg-mcg 00 Medical per tablet Branch norethindro 2020-0 Yes Shwetha s ne-ethinyl 1-30 ity of estradiol 00:00: [place] 1-20 mg-mcg 00 Medical per tablet Branch norethindro 2020-0 Yes Edytaer s ne-ethinyl 1-30 ity of estradiol 00:00: [place] 1-20 mg-mcg 00 Medical per tablet Branch norethindro 2020-0 Yes Edytaer s ne-ethinyl 1-30 ity of estradiol 00:00: [place] 1-20 mg-mcg 00 Medical per tablet Branch norethindro 2020-0 Yes Edytaer s ne-ethinyl 1-30 ity of estradiol 00:00: [place] 1-20 mg-mcg 00 Medical per tablet Branch norethindro 2020-0 Yes Shwetha s ne-ethinyl 1-30 ity of estradiol 00:00: [place] 1-20 mg-mcg 00 Medical per tablet Branch norethindro 2020-0 Yes Shwetha s ne-ethinyl 1-30 ity of estradiol 00:00: [place] 1-20 mg-mcg 00 Medical per tablet Branch norethindro 2020-0 Yes Shwetha s ne-ethinyl 1-30 ity of estradiol 00:00: [place] 1-20 mg-mcg 00 Medical per tablet Branch norethindro 2020-0 Yes Shwetha s ne-ethinyl 1-30 ity of estradiol 00:00: [place] 1-20 mg-mcg 00 Medical per tablet Branch norethindro 2020-0 Yes Shwetha s ne-ethinyl 1-30 ity of estradiol 00:00: [place] 1-20 mg-mcg 00 Medical per tablet Branch norethindro 2020-0 Yes Shwetha hanson ne-ethinyl 1-30 ity of estradiol 00:00: [place] 1-20 mg-mcg 00 Medical per tablet Branch norethindro 2020-0 Yes Shwetha s ne-ethinyl 1-30 ity of estradiol 00:00: [place] 1-20 mg-mcg 00 Medical per tablet Branch norethindro 2020-0 Yes Shwetha s ne-ethinyl 1-30 ity of estradiol 00:00: [place] 1-20 mg-mcg 00 Medical per tablet Branch norethindro 2020-0 Yes Shwetha s ne-ethinyl 1-30 ity of estradiol 00:00: [place] 1-20 mg-mcg 00 Medical per tablet Branch norethindro 2020-0 Yes Univer s ne-ethinyl 1-30 ity of estradiol 00:00: [place] 1-20 mg-mcg 00 Medical per tablet Branch norethindro 2020-0 Yes Univer s ne-ethinyl 1-30 ity of estradiol 00:00: [place] 1-20 mg-mcg 00 Medical per tablet Branch norethindro 2020-0 Yes Univer s ne-ethinyl 1-30 ity of estradiol 00:00: [place] 1-20 mg-mcg 00 Medical per tablet Branch norethindro 2020-0 Yes Univer s ne-ethinyl 1-30 ity of estradiol 00:00: [place] 1-20 mg-mcg 00 Medical per tablet Branch norethindro 2020-0 Yes Univer s ne-ethinyl 1-30 ity of estradiol 00:00: [place] 1-20 mg-mcg 00 Medical per tablet Branch norethindro 2020-0 Yes Univer s ne-ethinyl 1-30 ity of estradiol 00:00: [place] 1-20 mg-mcg 00 Medical per tablet Branch norethindro 2020-0 Yes Univer s ne-ethinyl 1-30 ity of estradiol 00:00: [place] 1-20 mg-mcg 00 Medical per tablet Branch norethindro 2020-0 Yes Univer s ne-ethinyl 1-30 ity of estradiol 00:00: [place] 1-20 mg-mcg 00 Medical per tablet Branch norethindro 2020-0 Yes Univer s ne-ethinyl 1-30 ity of estradiol 00:00: [place] 1-20 mg-mcg 00 Medical per tablet Branch norethindro 2020-0 Yes Univer s ne-ethinyl 1-30 ity of estradiol 00:00: [place] 1-20 mg-mcg 00 Medical per tablet Branch norethindro 2020-0 Yes Univer s ne-ethinyl 1-30 ity of estradiol 00:00: [place] 1-20 mg-mcg 00 Medical per tablet Branch norethindro 2020-0 2- No Unive rs ne-ethinyl 1-30 09-21 ity of estradiol 00:00: 00:00 [place] 1-20 mg-mcg 00 :00 Medical per tablet Branch MY WAY 1.5 2020-0 Yes Univers mg tablet 1-20 ity of 00:00: [place] [address] 1.5 2020-0 Yes Univers mg tablet 1-20 ity of 00:00: Medical Branch MY WAY 1.5 2020-0 Yes Univers mg tablet 1-20 ity of 00:00: [place] [facility] MY WAY 1.5 2020-0 Yes Univers mg tablet 1-20 ity of 00:00: [place] [facility] MY WAY 1.5 2020-0 Yes Univers mg tablet 1-20 ity of 00:00: [place] [facility] MY WAY 1.5 2020-0 Yes Univers mg tablet 1-20 ity of 00:00: [place] [facility] MY WAY 1.5 2020-0 Yes Univers mg tablet 1-20 ity of 00:00: [place] [facility] MY WAY 1.5 2020-0 Yes Univers mg tablet 1-20 ity of 00:00: [place] [facility] MY WAY 1.5 2020-0 Yes Univers mg tablet 1-20 ity of 00:00: [place] [facility] [place] MY WAY 1.5 2020-0 Yes Univers mg tablet 1-20 ity of 00:00: [place] [facility] MY WAY 1.5 2020-0 Yes Univers mg tablet 1-20 ity of 00:00: Medical Branch MY WAY 1.5 2020-0 Yes Univers mg tablet 1-20 ity of 00:00: [place] [facility] MY WAY 1.5 2020-0 Yes Univers mg tablet 1-20 ity of 00:00: [place] [facility] [place] MY WAY 1.5 2020-0 Yes Univers mg tablet 1-20 ity of 00:00: [place] [facility] MY WAY 1.5 2020-0 Yes Univers mg tablet 1-20 ity of 00:00: [place] [facility] MY WAY 1.5 2020-0 Yes Univers mg tablet 1-20 ity of 00:00: [place] [facility] MY WAY 1.5 2020-0 Yes Univers mg tablet 1-20 ity of 00:00: [place] [facility] MY WAY 1.5 2020-0 Yes Univers mg tablet 1-20 ity of 00:00: [place] [facility] MY WAY 1.5 2020-0 Yes Univers mg tablet 1-20 ity of 00:00: [place] [facility] MY WAY 1.5 2020-0 Yes Univers mg tablet 1-20 ity of 00:00: [place] [facility] MY WAY 1.5 2020-0 Yes Univers mg tablet 1-20 ity of 00:00: Medical Branch MY WAY 1.5 2020-0 Yes Univers mg tablet 1-20 ity of 00:00: [place] [facility] MY WAY 1.5 2020-0 Yes Univers mg tablet 1-20 ity of 00:00: [place] [facility] MY WAY 1.5 2020-0 Yes Univers mg tablet 1-20 ity of 00:00: [place] [facility] MY WAY 1.5 2020-0 Yes Univers mg tablet 1-20 ity of 00:00: [place] [facility] MY WAY 1.5 2020-0 Yes Univers mg tablet 1-20 ity of 00:00: [place] [facility] MY WAY 1.5 2020-0 Yes Univers mg tablet 1-20 ity of 00:00: [place] [facility] MY WAY 1.5 2020-0 Yes Univers mg tablet 1-20 ity of 00:00: [place] [facility] MY WAY 1.5 2020-0 Yes Univers mg tablet 1-20 ity of 00:00: [place] [facility] MY WAY 1.5 2020-0 Yes Univers mg tablet 1-20 ity of 00:00: [place] [facility] MY WAY 1.5 2020-0 Yes Univers mg tablet 1-20 ity of 00:00: [place] [facility] MY WAY 1.5 2020-0 Yes Univers mg tablet 1-20 ity of 00:00: [place] [facility] MY WAY 1.5 2020-0 Yes Univers mg tablet 1-20 ity of 00:00: [place] [facility] MY WAY 1.5 2020-0 Yes Univers mg tablet 1-20 ity of 00:00: [place] [facility] MY WAY 1.5 2020-0 Yes Univers mg tablet 1-20 ity of 00:00: [place] [facility] MY WAY 1.5 2020-0 Yes Univers mg tablet 1-20 ity of 00:00: [place] [facility] MY WAY 1.5 2020-0 Yes Univers mg tablet 1-20 ity of 00:00: [place] [facility] MY WAY 1.5 2020-0 Yes Univers mg tablet 1-20 ity of 00:00: [place] [facility] MY WAY 1.5 2020-0 Yes Univers mg tablet 1-20 ity of 00:00: [place] [facility] MY WAY 1.5 2020-0 Yes Univers mg tablet 1-20 ity of 00:00: [place] [facility] MY WAY 1.5 2020-0 Yes Univers mg tablet 1-20 ity of 00:00: Medical Branch MY WAY 1.5 2020-0 Yes Univers mg tablet 1-20 ity of 00:00: Medical Branch MY WAY 1.5 2020-0 Yes Univers mg tablet 1-20 ity of 00:00: Medical Branch MY WAY 1.5 2020-0 Yes Univers mg tablet -20 ity of 00:00: Medical Branch MY WAY 1.5 2020-0 Yes Univers mg tablet 1-20 ity of 00:00: Medical Branch MY WAY 1.5 2020-0 Yes Univers mg tablet -20 ity of 00:00: Medical Branch MY WAY 1.5 2020-0 2021- No Univer s mg tablet 20 - ity of 00:00: 00:00 [place] 00 :00 [...] 00:00: [place] tablet 00 Medical Branch escitalopra [id number] Yes TAKE 1 Univ ers m oxalate 5-09 TABLET BY ity o f 10 mg 00:00: MOUTH [place] tablet 00 EVERY Medical [facility] Branch traZODONE Yes TAKE 1 Univer s [...] TABLET BY ity of tablet 00:00: MOUTH 00 EVERYDAY Medical AT BEDTIME Branch traZODONE [...] TABLET BY ity of tablet 00:00: MOUTH 00 EVERYDAY Medical AT BEDTIME Branch traZODONE 2019-0 Yes TAKE 1 Univer s 50 mg 5-09 TABLET BY ity of tablet 00:00: MOUTH 00 EVERYDAY Medical AT BEDTIME Branch traZODONE 2019-0 Yes TAKE 1 Univer s 50 mg 5-09 TABLET BY ity of tablet 00:00: MOUTH 00 EVERYDAY Medical AT BEDTIME Branch traZODONE 2019-0 Yes TAKE 1 Univer s 50 mg 5-09 TABLET BY ity of tablet 00:00: MOUTH 00 EVERYDAY Medical AT BEDTIME Branch traZODONE 2019-0 Yes TAKE 1 Univer s 50 mg 5-09 TABLET BY ity of tablet 00:00: MOUTH 00 EVERYDAY Medical AT BEDTIME Branch traZODONE 2019-0 Yes TAKE 1 Univer s 50 mg 5-09 TABLET BY ity of tablet 00:00: MOUTH EVERYDAY Medical AT BEDTIME Branch traZODONE 2019-0 Yes TAKE 1 Univer s 50 mg 5-09 TABLET BY ity of tablet 00:00: MOUTH 00 EVERYDAY Medical AT BEDTIME Branch traZODONE 2019-0 Yes TAKE 1 Univer s 50 mg 5-09 TABLET BY ity of tablet 00:00: MOUTH 00 EVERYDAY Medical AT BEDTIME Branch escitalopra 2019-0 Yes TAKE 1 Univ ers m oxalate 5-09 TABLET BY ity o f 10 mg 00:00: MOUTH [place] tablet 00 EVERY Medical MORNING Branch traZODONE 2019-0 Yes TAKE 1 Univer s 50 mg 5-09 TABLET BY ity of tablet 00:00: MOUTH 00 EVERYDAY Medical AT BEDTIME Branch traZODONE 2019-0 Yes TAKE 1 Univer s 50 mg 5-09 TABLET BY ity of tablet 00:00: MOUTH 00 EVERYDAY Medical AT BEDTIME Branch traZODONE 2019-0 Yes TAKE 1 Univer s 50 mg 5-09 TABLET BY ity of tablet 00:00: MOUTH 00 EVERYDAY Medical AT BEDTIME Branch traZODONE 2019-0 Yes TAKE 1 Univer s 50 mg 5-09 TABLET BY ity of tablet 00:00: MOUTH 00 EVERYDAY Medical AT BEDTIME Branch escitalopra [...] 00 EVERYDAY Medical AT BEDTIME Branch escitalopra 2022- No TAKE 1 Uni vers m oxalate 5-09 -21 TABLET BY ity of 10 mg 00:00: 00:00 MOUTH [place] tablet 00 :00 EVERY Medical MORNING Branch No known No Univers medications it of [facility] Immunizations Ordered Filled Immunization Date Status Comments Sour e Immunization Name Name HPV9 2023-02-21 Completed University of 00:00:00 [facility] HPV9 2023-02-21 Completed University of 00:00:00 [facility] HPV9 2023-02-21 Completed University of 00:00:00 [facility] HPV9 2023-02-21 Completed University of 00:00:00 [facility] HPV9 2023-02-21 Completed University of 00:00:00 [facility] HPV9 2023-02-21 Completed University of 00:00:00 [facility] HPV9 2023-02-21 Completed University of 00:00:00 [facility] HPV9 2023-02-21 Completed University of 00:00:00 [facility] HPV9 2023-02-21 Completed University of 00:00:00 [facility] HPV9 2023-02-21 Completed University of 00:00:00 [facility] TDAP 2017-10-16 Completed University of 00:00:00 [facility] Influenza Virus 2017-10-16 Completed Universit y of Vaccine Quad IM 3+ 00:00:00 [facility] Tdap 2017-10-16 Completed University of 00:00:00 [facility] Influenza Virus 2017-10-16 Completed Universit y of Vaccine Quad IM 3+ 00:00:00 [facility] TDAP 2017-10-16 Completed University of 00:00:00 [facility] Influenza Virus 2017-10-16 Completed Universit y of Vaccine Quad IM 3+ 00:00:00 [facility] TDAP 2017-10-16 Completed University of 00:00:00 [facility] Influenza Virus 2017-10-16 Completed Universit y of Vaccine Quad IM 3+ 00:00:00 [facility] TDAP 2017-10-16 Completed University of 00:00:00 [facility] Influenza Virus 2017-10-16 Completed Universit y of Vaccine Quad IM 3+ 00:00:00 [facility] TDAP 2017-10-16 Completed University of 00:00:00 [facility] Influenza Virus 2017-10-16 Completed Universit y of Vaccine Quad IM 3+ 00:00:00 [facility] TDAP 2017-10-16 Completed University of 00:00:00 [facility] Influenza Virus 2017-10-16 Completed Universit y of Vaccine Quad IM 3+ 00:00:00 [facility] Tdap 2017-10-16 Completed University of 00:00:00 [facility] Influenza Virus 2017-10-16 Completed Universit y of Vaccine Quad IM 3+ 00:00:00 [facility] TDAP 2017-10-16 Completed University of 00:00:00 [facility] Influenza Virus 2017-10-16 Completed Universit y of Vaccine Quad IM 3+ 00:00:00 [facility] TDAP 2017-10-16 Completed University of 00:00:00 [facility] Influenza Virus 2017-10-16 Completed Universit y of Vaccine Quad IM 3+ 00:00:00 [facility] TDAP 2017-10-16 Completed University of 00:00:00 [facility] Influenza Virus 2017-10-16 Completed Universit y of Vaccine Quad IM 3+ 00:00:00 [facility] TDAP 2017-10-16 Completed University of 00:00:00 [facility] Influenza Virus 2017-10-16 Completed Universit y of Vaccine Quad IM 3+ 00:00:00 [facility] TDAP 2017-10-16 Completed University of 00:00:00 [facility] Influenza Virus 2017-10-16 Completed Universit y of Vaccine Quad IM 3+ 00:00:00 [facility] TDAP 2017-10-16 Completed University of 00:00:00 [facility] Influenza Virus 2017-10-16 Completed Universit y of Vaccine Quad IM 3+ 00:00:00 [facility] TDAP 2017-10-16 Completed University of 00:00:00 [facility] Influenza Virus 2017-10-16 Completed Universit y of Vaccine Quad IM 3+ 00:00:00 [facility] TDAP 2017-10-16 Completed University of 00:00:00 [facility] Influenza Virus 2017-10-16 Completed Universit y of Vaccine Quad IM 3+ 00:00:00 [facility] Tdap 2017-10-16 Completed University of 00:00:00 [facility] Influenza Virus 2017-10-16 Completed Universit y of Vaccine Quad IM 3+ 00:00:00 [facility] TDAP 2017-10-16 Completed University of 00:00:00 [facility] Influenza Virus 2017-10-16 Completed Universit y of Vaccine Quad IM 3+ 00:00:00 [facility] TDAP 2017-10-16 Completed University of 00:00:00 [facility] Influenza Virus 2017-10-16 Completed Universit y of Vaccine Quad IM 3+ 00:00:00 [facility] TDAP 2017-10-16 Completed University of 00:00:00 [facility] Influenza Virus 2017-10-16 Completed Universit y of Vaccine Quad IM 3+ 00:00:00 [facility] TDAP 2017-10-16 Completed University of 00:00:00 [facility] Influenza Virus 2017-10-16 Completed Universit y of Vaccine Quad IM 3+ 00:00:00 [facility] TDAP 2017-10-16 Completed University of 00:00:00 [facility] Influenza Virus 2017-10-16 Completed Universit y of Vaccine Quad IM 3+ 00:00:00 [facility] TDAP 2017-10-16 Completed University of 00:00:00 [facility] Influenza Virus 2017-10-16 Completed Universit y of Vaccine Quad IM 3+ 00:00:00 [facility] Tdap 2017-10-16 Completed University of 00:00:00 [facility] Influenza Virus 2017-10-16 Completed Universit y of Vaccine Quad IM 3+ 00:00:00 [facility] Tdap 2017-10-16 Completed University of 00:00:00 [facility] Influenza Virus 2017-10-16 Completed Universit y of Vaccine Quad IM 3+ 00:00:00 [facility] Tdap 2017-10-16 Completed University of 00:00:00 [facility] Influenza Virus 2017-10-16 Completed Universit y of Vaccine Quad IM 3+ 00:00:00 [facility] Tdap 2017-10-16 Completed University of 00:00:00 [facility] Influenza Virus 2017-10-16 Completed Universit y of Vaccine Quad IM 3+ 00:00:00 [facility] Tdap 2017-10-16 Completed University of 00:00:00 [facility] Influenza Virus 2017-10-16 Completed Universit y of Vaccine Quad IM 3+ 00:00:00 [facility] Tdap 2017-10-16 Completed University of 00:00:00 [facility] Influenza Virus 2017-10-16 Completed Universit y of Vaccine Quad IM 3+ 00:00:00 [facility] TDAP 2017-10-16 Completed University of 00:00:00 [facility] Influenza Virus 2017-10-16 Completed Universit y of Vaccine Quad IM 3+ 00:00:00 [facility] TDAP 2017-10-16 Completed University of 00:00:00 [facility] Influenza Virus 2017-10-16 Completed Universit y of Vaccine Quad IM 3+ 00:00:00 [facility] TDAP 2017-10-16 Completed University of 00:00:00 [facility] Influenza Virus 2017-10-16 Completed Universit y of Vaccine Quad IM 3+ 00:00:00 [facility] TDAP 2017-10-16 Completed University of 00:00:00 [facility] Influenza Virus 2017-10-16 Completed Universit y of Vaccine Quad IM 3+ 00:00:00 [facility] TDAP 2017-10-16 Completed University of 00:00:00 [facility] Tdap 2017-10-16 Completed University of 00:00:00 [facility] Influenza Virus 2017-10-16 Completed Universit y of Vaccine Quad IM 3+ 00:00:00 [facility] Influenza Virus 2017-10-16 Completed Universit y of Vaccine Quad IM 3+ 00:00:00 [facility] TDAP 2017-10-16 Completed University of 00:00:00 [facility] Influenza Virus 2017-10-16 Completed Universit y of Vaccine Quad IM 3+ 00:00:00 [facility] TDAP 2017-10-16 Completed University of 00:00:00 [facility] Influenza Virus 2017-10-16 Completed Universit y of Vaccine Quad IM 3+ 00:00:00 [facility] TDAP 2017-10-16 Completed University of 00:00:00 [facility] Influenza Virus 2017-10-16 Completed Universit y of Vaccine Quad IM 3+ 00:00:00 [facility] TDAP 2017-10-16 Completed University of 00:00:00 [facility] Influenza Virus 2017-10-16 Completed Universit y of Vaccine Quad IM 3+ 00:00:00 [facility] TDAP 2017-10-16 Completed University of 00:00:00 [facility] Influenza Virus 2017-10-16 Completed Universit y of Vaccine Quad IM 3+ 00:00:00 [facility] Tdap 2017-10-16 Completed University of 00:00:00 [facility] Influenza Virus 2017-10-16 Completed Universit y of Vaccine Quad IM 3+ 00:00:00 [facility] TDAP 2017-10-16 Completed University of 00:00:00 [facility] Influenza Virus 2017-10-16 Completed Universit y of Vaccine Quad IM 3+ 00:00:00 [facility] TDAP 2017-10-16 Completed University of 00:00:00 [facility] Influenza Virus 2017-10-16 Completed Universit y of Vaccine Quad IM 3+ 00:00:00 [facility] TDAP 2017-10-16 Completed University of 00:00:00 [facility] Influenza Virus 2017-10-16 Completed Universit y of Vaccine Quad IM 3+ 00:00:00 [facility] TDAP 2017-10-16 Completed University of 00:00:00 [facility] Influenza Virus 2017-10-16 Completed Universit y of Vaccine Quad IM 3+ 00:00:00 [facility] TDAP 2017-10-16 Completed University of 00:00:00 [facility] Influenza Virus 2017-10-16 Completed Universit y of Vaccine Quad IM 3+ 00:00:00 [facility] TDAP 2017-10-16 Completed University of 00:00:00 [facility] Influenza Virus 2017-10-16 Completed Universit y of Vaccine Quad IM 3+ 00:00:00 [facility] TDAP 2017-10-16 Completed University of 00:00:00 [facility] Influenza Virus 2017-10-16 Completed Universit y of Vaccine Quad IM 3+ 00:00:00 [facility] TDAP 2017-10-16 Completed University of 00:00:00 [facility] Influenza Virus 2017-10-16 Completed Universit y of Vaccine Quad IM 3+ 00:00:00 [facility] TDAP 2017-10-16 Completed University of 00:00:00 [facility] Influenza Virus 2017-10-16 Completed Universit y of Vaccine Quad IM 3+ 00:00:00 [facility] Tdap 2017-10-16 Completed University of 00:00:00 [facility] Influenza Virus 2017-10-16 Completed Universit y of Vaccine Quad IM 3+ 00:00:00 [facility] TDAP 2017-10-16 Completed University of 00:00:00 [facility] Influenza Virus 2017-10-16 Completed Universit y of Vaccine Quad IM 3+ 00:00:00 [facility] TDAP 2017-10-16 Completed University of 00:00:00 [facility] Influenza Virus 2017-10-16 Completed Universit y of Vaccine Quad IM 3+ 00:00:00 [facility] TDAP 2017-10-16 Completed University of 00:00:00 [facility] Influenza Virus 2017-10-16 Completed Universit y of Vaccine Quad IM 3+ 00:00:00 [facility] TDAP 2017-10-16 Completed University of 00:00:00 [facility] Influenza Virus 2017-10-16 Completed Universit y of Vaccine Quad IM 3+ 00:00:00 [facility] TDAP 2017-10-16 Completed University of 00:00:00 [facility] Influenza Virus 2017-10-16 Completed Universit y of Vaccine Quad IM 3+ 00:00:00 [facility] TDAP 2017-10-16 Completed University of 00:00:00 [facility] Influenza Virus 2017-10-16 Completed Universit y of Vaccine Quad IM 3+ 00:00:00 [facility] TDAP 2017-10-16 Completed University of 00:00:00 [facility] Influenza Virus 2017-10-16 Completed Universit y of Vaccine Quad IM 3+ 00:00:00 [facility] Tdap 2017-10-16 Completed University of 00:00:00 [facility] Influenza Virus 2017-10-16 Completed Universit y of Vaccine Quad IM 3+ 00:00:00 [facility] TDAP 2017-10-16 Completed University of 00:00:00 [facility] Influenza Virus 2017-10-16 Completed Universit y of Vaccine Quad IM 3+ 00:00:00 [facility] TDAP 2017-10-16 Completed University of 00:00:00 [facility] Influenza Virus 2017-10-16 Completed Universit y of Vaccine Quad IM 3+ 00:00:00 [facility] TDAP 2017-10-16 Completed University of 00:00:00 [facility] Influenza Virus 2017-10-16 Completed Universit y of Vaccine Quad IM 3+ 00:00:00 [facility] TDAP 2017-10-16 Completed [facility] 00:00:00 [facility] Influenza Virus 2017-10-16 Completed Universit y of Vaccine Quad IM 3+ 00:00:00 [facility] Tdap 2017-10-16 Completed [facility] of 00:00:00 [facility] TDAP 2017-10-16 Completed [facility] of 00:00:00 [facility] Influenza Virus 2017-10-16 Completed Universit y of Vaccine Quad IM 3+ 00:00:00 [facility] Influenza Virus 2017-10-16 Completed Universit y of Vaccine [facility] IM 3+ 00:00:00 [facility] TDAP 2017-10-16 Completed [facility] of 00:00:00 [facility] Influenza Virus 2017-10-16 Completed Universit y of Vaccine Quad IM 3+ 00:00:00 [facility] TDAP 2017-10-16 Completed [facility] of 00:00:00 [facility] Influenza Virus 2017-10-16 Completed Universit y of Vaccine Quad IM 3+ 00:00:00 [facility] TDAP 2016-01-18 Completed [facility] of 00:00:00 [facility] Tdap 2016-01-18 Completed [facility] of 00:00:00 [facility] TDAP 2016-01-18 Completed [facility] of 00:00:00 [facility] TDAP 2016-01-18 Completed [facility] 00:00:00 [facility] TDAP 2016-01-18 Completed [facility] 00:00:00 [facility] TDAP 2016-01-18 Completed [facility] of 00:00:00 [facility] TDAP 2016-01-18 Completed [facility] of 00:00:00 [facility] Tdap 2016-01-18 Completed [facility] of 00:00:00 [facility] TDAP 2016-01-18 Completed [facility] of 00:00:00 [facility] TDAP 2016-01-18 Completed [facility] 00:00:00 [facility] TDAP 2016-01-18 Completed [facility] of 00:00:00 [facility] TDAP 2016-01-18 Completed [facility] 00:00:00 [facility] TDAP 2016-01-18 Completed [facility] 00:00:00 [facility] TDAP 2016-01-18 Completed [facility] of 00:00:00 [facility] TDAP 2016-01-18 Completed [facility] of 00:00:00 [facility] Tdap 2016-01-18 Completed [facility] 00:00:00 [facility] TDAP 2016-01-18 Completed [facility] 00:00:00 [facility] TDAP 2016-01-18 Completed [facility] 00:00:00 [facility] TDAP 2016-01-18 Completed [facility] 00:00:00 [facility] TDAP 2016-01-18 Completed [facility] 00:00:00 [facility] TDAP 2016-01-18 Completed [facility] 00:00:00 [facility] TDAP 2016-01-18 Completed [facility] 00:00:00 [facility] TDAP 2016-01-18 Completed [facility] 00:00:00 [facility] Tdap 2016-01-18 Completed [facility] 00:00:00 [facility] Tdap 2016-01-18 Completed [facility] 00:00:00 [facility] Tdap 2016-01-18 Completed [facility] 00:00:00 [facility] Tdap 2016-01-18 Completed [facility] 00:00:00 [facility] Tdap 2016-01-18 Completed [facility] 00:00:00 [facility] Tdap 2016-01-18 Completed [facility] 00:00:00 [facility] TDAP 2016-01-18 Completed [facility] 00:00:00 [facility] TDAP 2016-01-18 Completed [facility] 00:00:00 [facility] TDAP 2016-01-18 Completed [facility] 00:00:00 [facility] TDAP 2016-01-18 Completed [facility] 00:00:00 [facility] Tdap 2016-01-18 Completed [facility] 00:00:00 [facility] TDAP 2016-01-18 Completed [facility] 00:00:00 [facility] TDAP 2016-01-18 Completed [facility] 00:00:00 [facility] TDAP 2016-01-18 Completed [facility] 00:00:00 [facility] TDAP 2016-01-18 Completed [facility] 00:00:00 [facility] TDAP 2016-01-18 Completed [facility] 00:00:00 [facility] Tdap 2016-01-18 Completed [facility] of 00:00:00 [facility] TDAP 2016-01-18 Completed [facility] 00:00:00 [facility] TDAP 2016-01-18 Completed [facility] of 00:00:00 [facility] TDAP 2016-01-18 Completed [facility] of 00:00:00 [facility] TDAP 2016-01-18 Completed [facility] 00:00:00 [facility] TDAP 2016-01-18 Completed [facility] of 00:00:00 [facility] TDAP 2016-01-18 Completed [facility] 00:00:00 [facility] TDAP 2016-01-18 Completed [facility] 00:00:00 [facility] TDAP 2016-01-18 Completed [facility] 00:00:00 [facility] TDAP 2016-01-18 Completed [facility] of 00:00:[address] [facility] Tdap 2016-01-18 Completed [facility] of 00:00:00 [facility] TDAP 2016-01-18 Completed [facility] of 00:00:00 [facility] TDAP 2016-01-18 Completed [facility] 00:00:00 [facility] TDAP 2016-01-18 Completed [facility] of 00:00:00 [facility] TDAP 2016-01-18 Completed [facility] of 00:00:00 [facility] TDAP 2016-01-18 Completed [facility] of 00:00:00 [facility] TDAP 2016-01-18 Completed [facility] of 00:00:00 [facility] TDAP 2016-01-18 Completed [facility] of 00:00:00 [facility] Tdap 2016-01-18 Completed [facility] of 00:00:00 [facility] TDAP 2016-01-18 Completed [facility] 00:00:00 [facility] TDAP 2016-01-18 Completed [facility] of 00:00:00 [facility] TDAP 2016-01-18 Completed [facility] of 00:00:00 [facility] TDAP 2016-01-18 Completed [facility] of 00:00:00 [facility] TDAP 2016-01-18 Completed [facility] of 00:00:00 [facility] Tdap 2016-01-18 Completed [facility] of 00:00:00 [facility] TDAP 2016-01-18 Completed [facility] of 00:00:00 [facility] TDAP 2016-01-18 Completed [facility] of 00:00:00 [facility] TDAP 2016-01-18 Completed [facility] of 00:00:00 [facility] TDAP 2014-05-18 Completed [facility] of 00:00:00 [facility] Tdap 2014-05-18 Completed [facility] of 00:00:00 [facility] TDAP 2014-05-18 Completed [facility] of 00:00:00 [facility] TDAP 2014-05-18 Completed [facility] of 00:00:00 [facility] TDAP 2014-05-18 Completed [facility] of 00:00:00 [facility] TDAP 2014-05-18 Completed [facility] of 00:00:00 [facility] Tdap 2014-05-18 Completed [facility] of 00:00:00 [facility] TDAP 2014-05-18 Completed [facility] 00:00:00 [facility] TDAP 2014-05-18 Completed [facility] 00:00:00 [facility] TDAP 2014-05-18 Completed [facility] 00:00:00 [facility] TDAP 2014-05-18 Completed [facility] 00:00:00 [facility] TDAP 2014-05-18 Completed [facility] of 00:00:00 [facility] TDAP 2014-05-18 Completed [facility] of 00:00:00 [facility] TDAP 2014-05-18 Completed [facility] of 00:00:00 [facility] TDAP 2014-05-18 Completed [facility] 00:00:00 [facility] Tdap 2014-05-18 Completed [facility] of 00:00:00 [facility] TDAP 2014-05-18 Completed [facility] of 00:00:00 [facility] TDAP 2014-05-18 Completed [facility] of 00:00:00 [facility] TDAP 2014-05-18 Completed [facility] of 00:00:00 [facility] TDAP 2014-05-18 Completed [facility] of 00:00:00 [facility] TDAP 2014-05-18 Completed [facility] 00:00:00 [facility] TDAP 2014-05-18 Completed [facility] of 00:00:00 [facility] TDAP 2014-05-18 Completed [facility] of 00:00:00 [facility] Tdap 2014-05-18 Completed [facility] of 00:00:00 [facility] Tdap 2014-05-18 Completed [facility] of 00:00:00 [facility] Tdap 2014-05-18 Completed [facility] of 00:00:00 [facility] Tdap 2014-05-18 Completed [facility] of 00:00:00 [facility] Tdap 2014-05-18 Completed [facility] of 00:00:00 [facility] Tdap 2014-05-18 Completed [facility] of 00:00:00 [facility] Tdap 2014-05-18 Completed [facility] of 00:00:00 [facility] TDAP 2014-05-18 Completed [facility] of 00:00:00 [facility] TDAP 2014-05-18 Completed [facility] of 00:00:00 [facility] TDAP 2014-05-18 Completed [facility] of 00:00:00 [facility] TDAP 2014-05-18 Completed [facility] of 00:00:00 [facility] Tdap 2014-05-18 Completed [facility] of 00:00:00 [facility] TDAP 2014-05-18 Completed [facility] of 00:00:00 [facility] TDAP 2014-05-18 Completed [facility] of 00:00:00 [facility] TDAP 2014-05-18 Completed [facility] of 00:00:00 [facility] TDAP 2014-05-18 Completed [facility] of 00:00:00 [facility] Tdap 2014-05-18 Completed [facility] of 00:00:00 [facility] TDAP 2014-05-18 Completed [facility] of 00:00:00 [facility] TDAP 2014-05-18 Completed [facility] of 00:00:00 [facility] TDAP 2014-05-18 Completed [facility] of 00:00:00 [facility] TDAP 2014-05-18 Completed [facility] of 00:00:00 [facility] TDAP 2014-05-18 Completed [facility] of 00:00:00 [facility] TDAP 2014-05-18 Completed [facility] of 00:00:00 [facility] TDAP 2014-05-18 Completed [facility] 00:00:00 [facility] TDAP 2014-05-18 Completed [facility] of 00:00:00 [facility] TDAP 2014-05-18 Completed [facility] of 00:00:00 [facility] Tdap 2014-05-18 Completed [facility] of 00:00:00 [facility] TDAP 2014-05-18 Completed [facility] of 00:00:00 [facility] TDAP 2014-05-18 Completed [facility] of 00:00:00 [facility] TDAP 2014-05-18 Completed [facility] of 00:00:00 [facility] TDAP 2014-05-18 Completed [facility] of 00:00:00 [facility] TDAP 2014-05-18 Completed [facility] of 00:00:00 [facility] TDAP 2014-05-18 Completed [facility] 00:00:00 [facility] TDAP 2014-05-18 Completed [facility] of 00:00:00 [facility] TDAP 2014-05-18 Completed [facility] of 00:00:00 [facility] Tdap 2014-05-18 Completed [facility] of 00:00:00 [facility] TDAP 2014-05-18 Completed [facility] of 00:00:00 [facility] TDAP 2014-05-18 Completed [facility] of 00:00:00 [facility] TDAP 2014-05-18 Completed [facility] of 00:00:00 [facility] TDAP 2014-05-18 Completed [facility] of 00:00:00 [facility] TDAP 2014-05-18 Completed [facility] of 00:00:00 [facility] Tdap 2014-05-18 Completed [facility] of 00:00:00 [facility] TDAP 2014-05-18 Completed [facility] of 00:00:00 [facility] TDAP 2014-05-18 Completed [facility] of 00:00:00 [facility] TDAP 2014-05-18 Completed [facility] of 00:00:00 [facility] Pneumococcal 2008-05-11 Completed University o f Polysaccharide, 00:00:00 [facility] PPSV23 (PNEUMOVAX) [facility] Pneumococcal 2008-05-11 [...] Time Observation Value Comments Source Systolic blood 2023-03-07 16:14:00 153 mm[Hg] Univer sity of pressure [facility] Diastolic blood 2023-03-07 16:14:00 89 mm[Hg] Unive rsity of pressure [facility] Heart rate 2023-03-07 16:13:00 79 /min [facility] Body temperature 2023-03-07 16:13:[address] [facility] Respiratory rate 2023-03-07 16:13:00 16 /min Univ ersity of [facility] Body weight 2023-03-07 16:13:00 123.378 kg Universi ty of [facility] [place] BMI 2023-03-07 16:13:00 51.39 kg/m2 Universi ty of [facility] Oxygen saturation in 2023-03-07 16:13:00 98 /min University Arterial blood by [facility] Pulse oximetry Branch Systolic blood 2023-02-21 13:28:00 128 mm[Hg] Univer sity of pressure [facility] Diastolic blood 2023-02-21 13:28:00 75 mm[Hg] Unive rsity of pressure [facility] Heart rate 2023-02-21 13:28:00 65 /min Universi ty of [facility] Body temperature 2023-02-21 13:28:00 36 Zainab Univ ersity of [facility] Respiratory rate 2023-02-21 13:28:00 18 /min Univ ersity of [facility] Body height 2023-02-21 13:28:00 154.9 cm Universi ty of [facility] Body weight 2023-02-21 13:28:00 122.244 kg Universi ty of [facility] BMI 2023-02-21 13:28:00 50.92 kg/m2 [facility] Systolic blood 2022-11-24 20:34:00 155 mm[Hg] Univer sity of pressure [facility] Diastolic blood 2022-11-24 20:34:00 87 mm[Hg] Unive rsity of pressure [facility] Heart rate 2022-11-24 20:22:00 73 /min Universi ty of [facility] Body temperature 2022-11-24 20:22:[address] [facility] Respiratory rate 2022-11-24 20:22:00 20 /min Univ ersity of [facility] Body height 2022-11-24 20:22:00 154.9 cm Universi ty of [facility] Body weight 2022-11-24 20:22:00 123.605 kg Universi ty of [facility] BMI 2022-11-24 20:22:00 51.49 kg/m2 Universi ty of [facility] Oxygen saturation in 2022-11-24 20:22:00 98 /min University of Arterial blood by [place] [facility] Pulse oxim[facility] Systolic blood 2022-07-17 15:56:00 137 mm[Hg] Univer sity of pressure [facility] Diastolic blood 2022-07-17 15:56:00 79 mm[Hg] Unive rsity of pressure [facility] Heart rate 2022-07-17 15:56:00 73 /min Universi ty of [facility] Body temperature 2022-07-17 15:56:00 37 Zainab Univ ersity of [facility] Respiratory rate 2022-07-17 15:56:00 18 /min Univ ersity of [facility] Body height 2022-07-17 15:56:00 154.9 cm Universi ty of [facility] Body weight 2022-07-17 15:56:00 123.242 kg Universi ty of [facility] BMI 2022-07-17 15:56:00 51.34 kg/m2 [facility]i ty of [facility] Oxygen saturation in 2022-07-17 15:56:00 95 /min [facility] of [facility]terial blood by [place] [facility] Pulse oxim[facility] Systolic blood 2022-06-13 00:43:00 152 mm[Hg] Univer sity of pressure [facility] Diastolic blood 2022-06-13 00:43:00 98 mm[Hg] Unive rsity of pressure [facility] Heart rate 2022-06-13 00:41:00 90 /min Universi ty of [facility] Body temperature 2022-06-13 00:41:00 37.17 Zainab Univ ersity of [facility] Respiratory rate 2022-06-13 00:41:00 16 /min Univ ersity of [facility] Body height 2022-06-13 00:41:00 154.9 cm Universi ty of [facility] Body weight 2022-06-13 00:41:00 126.508 kg [facility]i [facility] of [facility] BMI 2022-06-13 00:41:00 52.70 kg/m2 [facility] Oxygen saturation in 2022-06-13 00:41:00 97 /min University of [facility]ial blood by [place] [facility] Pulse oximetry [facility] Systolic blood 2022-04-14 18:03:00 126 mm[Hg] Univer sity of pressure [facility] Diastolic blood 2022-04-14 18:03:00 87 mm[Hg] Unive rsity of pressure [facility] Heart rate 2022-04-14 18:03:00 83 /min Universi ty of [facility] Body temperature 2022-04-14 18:03:00 36.89 Zainab Univ ersity of [facility] Respiratory rate 2022-04-14 18:03:00 18 /min Univ ersity of [facility] Body height 2022-04-14 18:03:00 154.9 cm Universi ty of [facility] Body weight 2022-04-14 18:03:00 126.508 kg Universi ty of [facility] BMI 2022-04-14 18:03:00 52.70 kg/m2 Universi ty of [facility] Oxygen saturation in 2022-04-14 18:03:00 97 /min University of Arterial blood by [facility] Pulse oximetry Branch Body weight 2022-04-03 18:36:00 126.554 kg Universi ty of [facility] BMI 2022-04-03 18:36:00 52.72 kg/m2 Universi ty of [facility] Oxygen saturation in 2022-04-03 18:36:00 97 /min University of Arterial blood by [facility] Pulse oximetry Branch Systolic blood 2022-04-03 18:36:00 146 mm[Hg] Univer sity of pressure [facility] Diastolic blood 2022-04-03 18:36:00 86 mm[Hg] Unive rsity of pressure [facility] Heart rate 2022-04-03 18:36:00 84 /min Universi ty of [facility] Body temperature 2022-04-03 18:36:00 37.11 Zainab Univ ersity of [facility] Respiratory rate 2022-04-03 18:36:00 18 /min Univ ersity of [facility] Body height 2022-04-03 18:36:00 154.9 cm Universi ty of [facility] Systolic blood 2022-03-19 14:01:00 154 mm[Hg] Univer sity of pressure [facility] Diastolic blood 2022-03-19 14:01:00 82 [...] 2022-03-19 14:01:00 51.96 kg/m2 Universi ty of [facility] Oxygen saturation in 2022-03-19 14:01:00 100 /min University of Arterial blood by [place] [facility] Pulse oxim[facility] Systolic blood 2021-10-01 18:26:00 111 mm[Hg] Univer sity of pressure [facility] Diastolic blood 2021-10-01 18:26:00 76 mm[Hg] Unive rsity of pressure [facility] Heart rate 2021-10-01 18:26:00 103 /min Universi ty of [facility] Body temperature 2021-10-01 18:26:00 36.89 Zainab Univ ersity of [facility] Respiratory rate 2021-10-01 18:26:00 16 /min Univ ersity of [facility] Body height 2021-10-01 18:26:00 154.9 [...] 2020-08-04 21:50:00 74 /min Universi ty of [facility] Respiratory rate 2020-08-04 21:50:00 23 /min Univ ersity of [facility] Oxygen saturation in 2020-08-04 21:50:00 95 /min University of Arterial blood by [place] [facility] Pulse oximetry [facility] Systolic blood 2020-08-04 21:35:00 106 mm[Hg] Univer sity of pressure [facility] Diastolic blood 2020-08-04 21:35:00 63 mm[Hg] Unive rsity of pressure [facility] Body temperature 2020-08-04 20:49:00 36.5 Zainab Univ ersity of [facility] Body height 2020-08-04 18:08:00 154.9 cm Universi ty of [facility] Body weight 2020-08-04 18:08:00 124.739 kg Universi ty of [facility] BMI 2020-08-04 18:08:00 51.96 kg/m2 Universi ty of [facility] Heart rate 2020-08-04 21:50:00 74 /min Universi ty of [facility] Respiratory rate 2020-08-04 21:50:00 23 /min Univ ersity of [facility] Oxygen saturation in 2020-08-04 21:50:00 95 /min University of Arterial blood by [facility] Pulse oximetry Branch Systolic blood 2020-08-04 21:35:00 106 mm[Hg] Univer sity of pressure [facility] Diastolic blood 2020-08-04 21:35:00 63 mm[Hg] Unive rsity of pressure [facility] Body temperature 2020-08-04 20:49:00 36.5 [address] [address] [facility] Body height 2020-08-04 18:08:00 154.9 cm Universi ty of [facility] Body weight 2020-08-04 18:08:00 124.739 kg Universi ty of [facility] BMI 2020-08-04 18:08:00 51.96 kg/m2 Universi ty of [facility] Systolic blood 2020-06-05 18:07:00 123 mm[Hg] Univer sity of pressure [facility] Diastolic blood 2020-06-05 18:07:00 75 mm[Hg] Unive rsity of pressure [facility] Heart rate 2020-06-05 18:07:00 70 /min Universi ty of [facility] Body temperature 2020-06-05 18:07:00 36[address] [facility] Respiratory rate 2020-06-05 18:07:00 16 /min Univ ersity of [facility] Body height 2020-06-05 18:07:00 156.2 cm Universi ty of [facility] Body weight 2020-06-05 18:07:00 129.91 kg Universi ty of [facility] BMI 2020-06-05 18:07:00 53.24 kg/m2 Universi ty of [facility] Body temperature 2020-05-31 20:10:00 36 Zainab [facility] Body weight 2020-05-31 20:10:[address] [facility] BMI 2020-05-31 20:10:00 53.66 kg/m2 Universi ty of [facility] Systolic blood 2020-04-06 18:35:00 138 mm[Hg] Univer sity of pressure [facility] Diastolic blood 2020-04-06 18:35:00 83 mm[Hg] [facility] Heart rate 2020-04-06 18:35:00 65 /min Universi ty of [facility] Respiratory rate 2020-04-06 18:35:00 18 /min [facility] Body height 2020-04-06 18:35:00 154.9 cm Universi ty of [facility] Body weight 2020-04-06 18:35:00 122.018 kg Universi ty of [facility] BMI 2020-04-06 18:35:00 50.83 kg/m2 Universi ty of [facility] Systolic blood 2020-03-16 19:12:00 120 mm[Hg] Univer sity of pressure [facility] Diastolic blood 2020-03-16 19:12:00 80 mm[Hg] [facility] Body height 2020-03-16 19:12:00 154.9 cm Universi ty of [facility] Body weight 2020-03-16 19:12:00 122.018 kg Universi ty of [facility] BMI 2020-03-16 19:12:00 50.83 kg/m2 Universi ty of [facility] Body height 2019-12-23 16:00:00 154.9 cm Universi ty of [facility] Body weight 2019-12-23 16:00:[address] [facility] BMI 2019-12-23 16:00:00 50.83 kg/m2 Universi ty of [facility] Procedures Procedure Date / Time Performing Clinician Source Performed POCT MOLECULAR STREP 2023-03-07 16:19:00 Unknown, Attending [facility] URINE CULTURE 2023-02-21 14:14:00 Mirta Correa [facility] GC & CHLAMYDIA AMPLIFIED 2023-02-21 14:14:00 Mirta Correa [facility] HIV 1/2 AG-AB WITH REFLEX 2023-02-21 14:14:00 Mirta Correa [facility] HIGH RISK HPV-THIN PREP 2023-02-21 14:14:00 Mirta Correa [facility] TRICHOMONAS AMPLIFIED 2023-02-21 14:14:00 [facility]-LIQUID [facility]-CP 2023-02-21 14:14:00 Mirta Correa [facility] SYPHILIS IGG/IGM 2023-02-21 14:14:00 Mirta Correa [facility] GARDASIL 9 (HPV 9V) 2023-02-21 13:56:00 Mirta Correa [facility] NO SHOW OR MISSED 2023-02-21 12:59:00 Doctor Unassigned, [facility] APPOINTMENT POLICY [place] Medical [facility] ACKNOWLEDGEMENT ASSIGNMENT OF BENEFITS 2022-11-24 20:15:38 Doctor Unassigned, [facility] [place] [facility] [place] POCT TEST 2022-07-17 16:33:00 Drake Nannette [facility] POCT URINALYSIS 2022-07-17 16:15:00 [facility] XR KNEE 3 VW LEFT 2022-03-19 14:44:16 Lottie Garvin [facility] POCT TEST 2022-03-19 14:34:00 Lottie Garvin [facility] COMP. METABOLIC PANEL 2022-03-19 14:27:00 Lottie Garvin [facility] ([id number]) [facility] CBC WITH DIFF 2022-03-19 14:27:00 Lottie Garvin [facility] PROTHROMBIN TIME / INR 2022-03-19 14:27:00 Lottie Garvin [facility] ACTIVATED PARTIAL THRMPLAS 2022-03-19 14:27:00 Lottie Garvin [facility] URINALYSIS 2022-03-19 14:27:00 Lottie Garvin [place] [facility] CONSENT/REFUSAL FOR 2022-03-19 13:50:09 Doctor [facility] DIAGNOSIS AND TREATMENT [place] [facility] [place] CONSENT/REFUSAL FOR 2021-10-01 18:15:24 Doctor Sujey [facility] DIAGNOSIS AND TREATMENT [place] [facility] [place] INTUBATION 2020-08-04 19:57:02 Luzma Almanza [facility] ASSIGNMENT OF BENEFITS 2020-08-04 16:10:14 Doctor Unaandrea, Diogo [facility] [place] DISCLOSURE AND CONSENT, 2020-07-05 05:01:00 Doctor Sujey, Terrell [facility] MEDICAL AND SURGICAL [place] [facility] PROCEDURES HIV 1/2 AG-AB WITH REFLEX 2020-06-05 19:04:00 Casie Ortega [facility] GALV ONLY - SYPHILIS 2020-06-05 19:04:00 Casie Ortega [facility] IGG/IGM [facility] XR WRIST 3+ VW LEFT 2020-05-31 19:46:46 [facility] LEFT WO CONTRAST 2020-03-31 20:18:12 Kami Bernard [facility] REFERRAL- REQUEST/RESPONSE 2020-03-23 05:01:00 Doctor Rm [facility] SEDIMENTATION RATE 2019-12-23 17:06:00 Kami Bernard [facility] CBC WITH DIFFERENTIAL 2019-12-23 17:06:00 Kami Bernard [facility] ASSIGNMENT OF BENEFITS 2019-12-23 15:57:07 Doctor Sujey, [facility] [place] DME/SUPPLY JUSTIFICATION 2019-05-27 05:01:00 Doctor Sujey [facility] Name Medical [place] Encounters Start End Encounter Admission Attending Care Care Encounter Source Date/Time Date/Time Type Type Clinicians Facility Department ID 2021-08-24 Outpatient JORY WHYTE [facility] [id number] [address] [place] [address] 19:16:32 TOREY [facility] 2024-02-23 2024-02-23 Outpatient R MADELINE [facility] [id number] Univers 10:30:00 10:30:00 MIRTA beavers [facility] 2023-03-07 2023-03-07 Regla Rico [facility] 1.2.840 .114 [id number] Univers 11:40:00 12:00:00 Care Unknown, Attending HEALTH 350.1.13.10 ity [facility] 4.2.7.2.686 Willem as ALEK?BLEA [phone] [address] MEDICAL OFFICE BUILDING 2023-03-07 2023-03-07 Outpatient R STEVE [facility] [id number] Univers 11:40:00 11:40:00 REGLA itjulio c andersen [facility] 2023-02-25 2023-02-25 Telephone [facility] 1.2.840.114 [id number] Univers 00:00:00 00:00:00 Mirta C CLAY MAKER 350.1.13.10 ity of [facility] 4.2.7.2.686 Willem as MATERNAL [phone] [facility] & CHILD [address] [place] [address] 2023-02-25 2023-02-25 Telephone [facility] 1.2.840.114 [id number] Univers 00:00:00 00:00:00 Mirta C CLAY MAKER 350.1.13.10 ity of [facility] 4.2.7.2.686 Willem as MATERNAL [phone] [facility] & [address] 2023-02-24 2023-02-24 Telephone [facility] 1.2.840.114 [id number] Univers 00:00:00 00:00:00 Mirta C CLAY MAKER 350.1.13.10 ity of [facility] 4.2.7.2.686 Willem as MATERNAL [id number] [facility] & [address] 2023-02-21 2023-02-21 Out[facility] [id number] Univers 08:15:00 09:14:08 MIRTA beavers [facility] 2023-02-21 2023-02-21 Office Madeline [facility] 1.2.735.104 [id number] Univers 08:15:00 09:14:08 Visit Mirta Ramirez CLAY MAKER 350.1.13.10 ity of [facility] 4.2.7.2.686 Willem as MATERNAL [phone] Med ical & CHILD [address] [place] [address] 2023-02-21 2023-02-21 Orders Doctor TOREY 1.2.840.114 [id number] Univers 00:00:00 00:00:00 Only Unassigned, LUZ 350.1.13.10 ity of [place] [facility] 4.2.7.2.686 Willem as [phone] [address] 2023-02-19 2023-02-19 Case Mary MERRITT 1.2.840.114 [id number] Univers 00:00:00 00:00:00 Management , Jenniffer CRAWFORD 350.1.13.10 [place] [phone] [address] 2023-02-19 2023-02-19 Telephone Mary MERRITT 1.2.840.114 [id number] Univers 00:00:00 00:00:00 , Jenniffer SAENZY 350.1.13.10 [place] [id number] [address] 2022-12-04 2022-12-04 Telephone Kirsten [facility] 1.2.499.171 [id number] Univers 00:00:00 00:00:00 [facility] 350.1.13.10 it y of [place] 4.2.7.2.686 Willem as ALEK?BLEA [phone] Hi barbara CRAFT [address] [place] [address] MEDICAL OFFICE BUILDING 2022-11-24 2022-11-24 Urgent Latonia Castaneda [facility] 1.2.840.114 [id number] Univers 14:20:00 14:40:00 Care Unknown, [facility] HEALTH 350.1.13.10 ity of [place] 4.2.7.2.686 Willem as ALEK?BLEA [phone] [address] MEDICAL OFFICE [facility] 2022-11-24 2022-11-24 Outpatient R KIRSTEN [facility] [id number] Univers 14:20:00 14:20:00 LATONIA her [facility] 2022-11-24 2022-11-24 Orders Doctor TOREY 1.2.840.114 [id number] Univers 00:00:00 00:00:00 Only Unassigned, LUZ 350.1.13.10 ity of [facility] 4.2.7.2.686 Willem as [phone] [address] 2022-07-20 2022-07-20 [facility] 1.2.597.534 [id number] Univers 00:00:00 00:00:00 Bello HEALTH 350.1.13.10 it y of [facility] 4.2.7.2.686 Willem as ALEK?BLEA [phone] [address] OFFICE [facility] 2022-07-17 2022-07-17 Outpatient R DRAKE [facility] [id number] Univers 11:15:00 11:29:07 NANNETTE [facility] 2022-07-17 2022-07-17 Urgent [facility] 1.2.840.114 [id number] Univers 11:15:00 11:29:07 Care Nannette HEALTH 350.1.13.10 it y of [facility] 4.2.7.2.686 Willem as ALEK?BLEA [phone] [address] MEDICAL OFFICE [facility] 2022-06-12 2022-06-12 Outpatient R TONNY [facility] [id number] Univers 19:20:00 19:47:11 TOREY her [facility] 2022-06-12 2022-06-12 Urgent Torey Cesar [facility] 1.2.840.114 [id number] Univers 19:20:00 19:47:11 Care Cj Tierney HEALTH 350.1.13.10 ity of [facility] 4.2.7.2.686 Willem as ALEK?BLEA [phone] [address] MEDICAL OFFICE [facility] 2022-04-14 2022-04-14 Outpatient R STEVE [facility] [id number] Univers 12:40:00 13:52:43 REGLA her o f [facility] 2022-04-14 2022-04-14 Urgent Regla Baez [facility] 1.2.840 .114 [id number] Univers 12:40:00 13:52:43 Vincent Kurtz [facility] 350.1.13.10 ity of [place] 4.2.7.2.686 Willem as ALEK?BLEA [id number] [address] MEDICAL OFFICE [facility] 2022-04-03 2022-04-03 Urgent [facility] 1.2.840.114 [id number] Univers 14:20:00 14:20:00 Care [facility] 350.1.13.10 it y of [place] 4.2.7.2.686 Willem as ALEK?BLEA [phone] [address] OFFICE [facility] 2022-04-03 2022-04-03 Outpatient [facility] [id number] Univers 14:20:00 14:03:55 BELLO [facility] 2022-03-19 2022-03-19 Emergency [facility] ERT [id number] Univers 09:01:00 11:10:00 LOTTIE [facility] 2022-03-19 2022-03-19 Emergency [facility] 1.2.730.955 [id number] Univers 09:01:00 11:10:00 Lottie [facility] 350.1.13.10 i ty of [place].2.[place] [id number] [facility] 084 [place] 2022-03-19 2022-03-19 Orders Doctor TOREY 1.2.840.114 [id number] Univers 00:00:00 00:00:00 Only Unassigned, LUZ 350.1.13.10 [facility] 4.2.7.2.686 Willem as [phone] [facility] [address] 2021-10-01 2021-10-01 Outpatient R DRAKE [facility] [id number] Univers 15:00:00 13:13:59 NANNETTE her [facility] 2021-10-01 2021-10-01 Urgent Drake [facility] 1.2.840.114 [id number] Univers 12:15:40 13:13:59 Care Nannette [facility] 350.1.13.10 it y of [place] 4.2.7.2.686 Willem as ALEK?BLEA [id number] [address] MEDICAL OFFICE BUILDING 2021-10-01 2021-10-01 Orders Doctor TOREY 1.2.840.114 [id number] Univers 00:00:00 00:00:00 Only Unassigned, LUZ 350.1.13.10 ity of [place] [facility] 4.2.7.2.686 Willem as [id number] [address] 2021-01-15 2021-01-15 Patient [facility] 1.2.840.114 [id number] 00:00:00 00:00:00 Outreach Harjit PRIMARY 350.1.13.10 Home CARE 4.2.7.2.686 PAVILLION [id number] 388 2021-01-15 2021-01-15 Patient [facility] 1.2.840.114 [id number] Univers 00:00:00 00:00:00 Outreach Harjit PRIMARY 350.1.13.10 i ty of Home [place] [id number] Hi barbara [address] [place] 2020-08-23 2020-08-23 Outpatient R ISABELL [facility] [id number] Univers 14:00:00 14:00:00 TOREY ity of [facility] 2020-08-09 2020-08-09 [facility] 1.2.840.114 [id number] Univers 00:00:00 00:00:00 Torey SPECIALTY 350.1.13.10 ity of [place].2.[place] CENTER AT [phone] Hi dical BRADLEY 198 [facility] 2020-08-09 2020-08-09 Telephone [facility] 1.2.840.114 [id number] 00:00:00 00:00:00 T[place]y SPECIALTY 350.1.13.10 CARE 4.2.7.2.686 CENTER AT [id number] BRADLEY 198 [facility] 2020-08-04 2020-08-04 Hospital [facility] 1.2.840.114 [id number] Univers 11:12:00 17:25:00 Encounter [place] Health 350.1.13.10 ity of [place] 4.2.7.2.686 [facility] s [facility] [id number] [address] ([facility]) 2020-08-04 2020-08-04 [facility] 1.2.840.114 [id number] 11:12:00 17:25:00 Encounter [place] [facility] 350.1.13.10 [place] 4.2.7.2.686 [facility] [id number] [address] 2020-08-04 2020-08-04 Anesthesia Ashley Alas [facility] 1.2.840 .114 [id number] Univers 14:32:00 15:44:00 Mirza Angeles SPECIALTY 350.1.13.1 0 ity of CARE 4.2.7.2.686 [facility] CENTER AT [phone] Hi dical [address] 2020-08-04 2020-08-04 Anesthesia [facility] 1.2.840 .114 [id number] 14:32:00 15:44:00 Mirza Angeles SPECIALTY 350.1.13.1 0 CARE 4.2.7.2.686 CENTER AT [id number] BRADLEY Antonio [facility] 2020-08-04 2020-08-04 Orders Doctor LEMA 1.2.840.114 [id number] Univers 00:00:00 00:00:00 Only Unassigned, LUZ 350.1.13.10 ity of [place] [facility]PITAL 4.2.7.2.686 Willem as [id number] [address] 2020-08-04 2020-08-04 Orders Doctor LEMA 1.2.840.114 [id number] 00:00:00 00:00:00 Only Unassigned, LUZ 350.1.13.10 [place] [facility] 4.2.7.2.686 [id number] 009 2020-08-03 2020-08-03 Outpatient R [facility] [id number] Univers 15:30:00 15:30:00 ity of [facility] 2020-08-03 2020-08-03 Laboratory Only, [facility] Test [facility] 1.2.840. 114 [id number] Univers 14:49:11 15:04:01 Only Failricardo, Torey Cosby 350.1.13.10 ity of [place] [phone] [address] 2020-08-03 2020-08-03 Laboratory Only, [facility] 1.2.840.114 [id number] 14:49:11 15:04:01 Only Test Harjeet 350.1.13.10 [place] 4.2.7.2.686 [place] [id number] [facility] 2020-08-02 2020-08-02 Telephone Faillace, [facility] 1.2.840.114 [id number] Univers 00:00:00 00:00:00 Torey SPECIALTY 350.1.13.10 ity of [place]2.[place] CENTER AT [id number] Hi dichossein HOSKINSJulio C [address] [place] [address] 2020-08-02 2020-08-02 Telephone [facility] 1.2.840.114 [id number] Univers 00:00:00 00:00:00 [place]orey SPECIALTY 350.1.13.10 ity of C[place].2.[place] CENTER AT [id number] Hi floryhossein HOSKINSJulio C [address] [place] [address] 2020-07-19 2020-07-19 Telephone [facility] 1.2.840.114 [id number] Univers 00:00:00 00:00:00 [place]y SPECIALTY 350.1.13.10 ity of C[place] 4[place]2.7.2.686 [place] CENTER AT [id number] Hi floryhossein HUERTA [address] [place] [address] 2020-07-05 2020-07-05 Telemedici [facility] 1.2.840.114 [id number] Univers 11:28:58 11:38:58 ne Visit [place]y SPECIALTY 350.1.13.10 ity of C[place] 4[place]2.7.2.686 [place] CENTER AT [id number] Me dical VICTORY [address] [place] [address] 2020-07-05 2020-07-05 Outpatient R ISABELL [facility] [id number] Univers 11:10:00 11:10:00 TOREY her [facility] 2020-07-05 2020-07-05 Orders Doctor TOREY 1.2.840.114 [id number] Univers 00:00:00 00:00:00 Only Unassigned, LUZ 350.1.13.10 ity of [place] [facility] 4.2.7.2.686 Willem as [id number] [facility] 00[address] [place] 2020-06-21 2020-06-21 Outpatient R FARIDA [facility] [id number] Univers 13:30:00 13:30:00 RUEL her [facility] 2020-06-19 2020-06-19 [facility], Ang-Rmchp [facility] 1.2.840. 114 [id number] Univers 16:19:58 16:20:05 Visit Casie Ortega CLAY MAKER 350.1.13.10 ity [facility] 4.2.7.2.686 Willem as MATERNAL [id number] Med ical & CHILD [address] [place] [address] 2020-06-19 2020-06-19 Out[facility] [id number] Univers 15:40:00 15:40:00 TOREY carlsonjulio c [facility] 2020-06-19 2020-06-19 Outpatient R [facility] [id number] Univers 15:15:00 15:15:00 CASIE her o f [facility] 2020-06-19 2020-06-19 Telephone [facility] 1.2.840.114 [id number] Univers 00:00:00 00:00:00 Torey NICHOLSON 350.1.13.10 it y of C[place] 4[place]2.[place].2.[place] KARE[place] [id number] Hi barbara [place] 2020-06-12 2020-06-12 Telephone [facility] 1.2.425.251 [id number] Univers 00:00:00 00:00:00 Casie Baird CLAY MAKER 350.1.13.10 ity of [facility] 4.2.7.2.686 [place]illem as MATERNAL [phone] [facility] ical & CHILD [address] [place] [address] 2020-06-06 2020-06-06 Telephone [facility] 1.2.936.501 [id number] Univers 00:00:00 00:00:00 Christiealvinanda R CLAY MAKER 350.1.13.10 ity of [facility] 4.2.7.2.686 [place] as MATERNAL [id number] [facility] & CHILD [address] [place] [address] 2020-06-05 2020-06-05 Office [facility] 1.2.840.114 [id number] Univers 12:48:43 14:03:05 Visit Aleshianda R CLAY MAKER 350.1.13.10 ity of [facility] 4.2.7.2.686 [place] as MATERNAL [id number] [address] 2020-06-05 2020-06-05 Outpatient [facility] [id number] Univers 12:45:00 12:45:00 ROSALVINANDA ity o f [facility] 2020-05-31 2020-05-31 [facility] 1.2.840.114 [id number] Univers 14:36:23 23:59:00 Encounter [place] SPECIALTY 350.1.13.10 ity of [place].2.[place] CENTER AT [id number] Hi barbara [facility] 809 [facility] 2020-05-31 2020-05-31 Office [facility] 1.2.971.281 [id number] Univers 14:17:05 15:56:27 Visit [place]y SPECIALTY 350.1.13.10 ity of [place].2.[place] CENTER AT [id number] [facility] 198 [facility] 2020-05-31 2020-05-31 Outpatient [facility] [id number] Univers 14:30:00 14:30:00 TOREY her [facility] 2020-04-12 2020-04-12 Outpatient [facility] [id number] Univers 13:00:00 13:00:00 TOREY her [facility] 2020-04-12 2020-04-12 Patient Doctor [facility] 1.2.840.114 [id number] Univers 00:00:00 00:00:00 Secure Msg Unassigned, CLAY MAKER 350.1.13.10 ity of [place] [facility] 4.2.7.2.686 Willem as MATERNAL [id number] Med ical & CHILD 107 [facility] 2020-04-06 2020-04-06 Outpatient [facility] [id number] Univers 15:30:00 15:30:00 KAMI itjulio c [facility] 2020-04-06 2020-04-06 Office [facility] 1.2.593.970 [id number] Univers 13:33:51 14:02:35 Visit Kami Bryan 350.1.13.10 it y of Surgical 4.2.7.2.686 [place] Specialti [id number] Hi dical es 198 [facility] 2020-03-31 2020-03-31 Outpatient [facility] [id number] Univers 14:26:45 23:59:00 [facility] 2020-03-31 2020-03-31 [facility] Marco Antonio [facility] 1.2.840.114 [id number] Univers 14:00:00 23:59:00 Encounter Kami Quinones HEALTH 350.1.13.10 ity of CLINICS [place]2.[place].2.[place] [id number] [facility] [address] [place] 2020-03-23 2020-03-23 Orders Doctor TOREY 1.2.840.114 [id number] Univers 00:00:00 00:00:00 Only Unassigned, LUZ 350.1.13.10 ity of [place] [facility] 4.2.7.2.686 Willem as [phone] [facility] 00[address] [place] 2020-03-22 2020-03-22 Telephone Marco Antonio [facility] 1.2.840.114 [id number] Univers 00:00:00 00:00:00 Kami Bryan 350.1.13.10 it y of Surgical 4.2.7.2.686 [place] as Specialti [phone] Hi dical es 198 [facility] 2020-03-16 2020-03-16 Office [facility] 1.2.467.153 [id number] Univers 14:10:26 14:24:02 Visit Kami [facility] 350.1.13.10 it y of Surgical 4.2.7.2.686 [place] as Specialti [id number] Hi dical es 198 [facility] 2020-03-16 2020-03-16 Outpatient R BERNARD [facility] [id number] Univers 14:15:00 14:15:00 KAMI julio c [facility] 2020-03-16 2020-03-16 Outpatient [facility] [id number] Univers 13:15:00 13:15:00 [facility] 2020-01-11 2020-01-11 Outpatient R MIGUEL [facility] [id number] Univers 13:45:00 13:45:00 [facility] 2020-01-06 2020-01-06 Outpatient [facility] [id number] Univers 14:45:00 14:45:00 [facility] 2019-12-30 2019-12-30 Outpatient R [facility] [id number] Univers 10:15:00 10:15:00 [facility] 2019-12-30 2019-12-30 Patient Miguel [facility] 1.2.840.114 [id number] Univers 00:00:00 00:00:00 Secure Msg [facility] 350.1.13.10 ity of Surgical 4.2.7.2.686 [place] as Specialti [id number] Hi dical es 198 [facility] 2019-12-23 2019-12-23 Clay Digger Mirta [facility] Main [facility] 1.2.8 40.114 [id number] Univers 10:51:53 11:06:53 Visit Marco Antonio Kami Rachel Amanda 350.1.13.10 ity of [place].2.[place] Profess[place] [phone] Hi dical nal 353 [facility] 2019-12-23 2019-12-23 Office Marco Antonio [facility] 1.2.205.600 [id number] Univers 09:56:57 10:15:25 Visit Kami [facility] 350.1.13.10 it y of Surgical 4.2.7.2.686 [place] as Specialti [phone] Hi dical es [address] Amanda 2019-12-23 2019-12-23 Outpatient R MARCO ANTONIO [facility] [id number] Univers 10:15:00 10:15:00 KAMI ity of [facility] 2019-12-23 2019-12-23 Orders Doctor TOREY 1.2.840.114 [id number] Univers 00:00:00 00:00:00 Only Unassigned, LUZ 350.1.13.10 ity of [place] HOSPITAL 4.2.7.2.686 Willem as [id number] [address] 2019-05-27 2019-05-27 Orders Doctor TOREY 1.2.840.114 [id number] Univers 00:00:00 00:00:00 Only Unassigned, LUZ 350.1.13.10 ity of [place] HOSPITAL 4.2.7.2.686 Willem as [phone] [facility] [address] [place] 2019-05-27 2019-05-27 Telephone [facility] 1.2.465.223 [id number] Univers 00:00:00 00:00:00 Haja Cosby 350.1.13.10 i ty of [place] [phone] Hi dical nal 085 [facility] 2014-05-30 2014-05-30 Patient Doctor TOREY 1.2.840.114 [id number] Univers 00:00:00 00:00:00 Secure Msg Unassigned, LUZ 350.1.13.10 ity of [place] HOSPITAL 4.2.7.2.686 Willem as [phone] [facility] [address] [place] Results Test Description Test Time Test Comments Results Result Comments Source POCT MOLECULAR STREP 2023-03-07 16:26:28 Test Item Value Reference Range Interpretation Comme nts POCT Molecular Strep (test code = 05933-8) Negative Negative Lab Interpretation (test code = 38612-4) Normal [facility] [id number] 16:53:38 Test Item Value Reference Range Interpretation Comments Syphilis IgG/IgM (test Non-reactive Non-reactive code = 97321-2) FIONA (test code = FIONA) Non-reactive - No serologic evidence of T. pallidum infection. Cannot exclude incubating or early syphilis. Submit a second specimen in 2-4 weeks if syphilis is clinically suspected. Equivocal - Further testing to follow. Reactive - Further testing to follow. Lab Interpretation (test Normal code = 92871-7) [facility] WITH [id number] 05:24:24 Test Item Value Reference Range Interpretation Comments HIV 0.07 Negative Semi-quantitative (test code = 77685-1) FIONA (test code = Non-reactive for HIV-1 FIONA) antigen and HIV-1/HIV-2 antibodies. ?No laboratory evidence of HIV infection. ?Repeat in 2-4 weeks if acute HIV infection is suspected. [facility] [id number] 16:44:00 Test Item Value Reference Range Interpretation Comments POCT PREG (test code = Negative 1605) On board controls Yes acceptable with C Line (test code = 3574) POCT PREG LOT # (test [id number] code = 3575) POCT PREG TEST DATE (test code = 3576) FIONA (test code = FIONA) accurate development and interpretation of all internal controls Lab Interpretation Normal (test code = 50547-4) [facility] URINALYSIS W SPECIFIC [id number] 16:16:00 Test Item Value Reference Range Interpretation [...] U COLOR (test code = dark yellow 6) POCT U APPEAR (test code = clear 3267) Lab Interpretation (test code Normal = 89445-4) [facility] WITH [id number] 15:36:23 Test Item Value Reference Range Interpretation [...] RDW-SD (test code = 43.0 fL 39.0-49.9 12217-9) RDW-CV (test code = 13.8 % 12.0-15.5 788-0) PLT (test code = See_Comment [Automated 777-3) message] The sy stem which generated this result transmitted reference range : 166 - 358 10*3/ ?L. The reference r mariella was not used to interpret this result as normal/abnormal . MPV (test code = 10.8 fL 9.5-12.9 47543-9) NRBC/100 WBC (test See_Comment [Automat ed code = 4210444657) message] The system which generated this result transmitted reference range : 0.0 - 10.0 /100 WBCs. The refer ence range was not u sed to interpret th is result as normal/abnormal . NRBC x10^3 (test code <0.01 See_Comment [Auto mated = 6262527499) message] The s ystem which generated this result transmitted reference range : 10*3/?L. The reference range was not used to interpret this result as normal/abnormal . GRAN MAT (NEUT) % 59.6 % (test code = 770-8) IMM GRAN % (test code 0.40 % = 5488676088) LYMPH % (test code = 29.0 % 736-9) MONO % (test code = 7.7 % 5905-5) EOS % (test code = 2.9 % 713-8) BASO % (test code = 0.4 % 706-2) GRAN MAT x10^3(ANC) 8.31 10*3/uL 1.88-7.09 H (test code = 5278603197) IMM GRAN x10^3 (test 0.06 10*3/uL 0.00-0.06 code = 7838372195) LYMPH x10^3 (test code 4.05 10*3/uL 1.32-3.29 H = 731-0) MONO x10^3 (test code 1.07 10*3/uL 0.33-0.92 H = 742-7) EOS x10^3 (test code = 0.41 10*3/uL 0.03-0.39 H 711-2) BASO x10^3 (test code 0.05 10*3/uL 0.01-0.07 = 704-7) REACT LYMPHS (test Rare code = 9650442986) Lab Interpretation Abnormal (test code = 89655-4) [facility] [id number] 15:06:58 Test Item Value Reference Range Interpretation Comments APTT Patient (test See_Comment [Automat ed code = 3173-2) message] The system which generated this result transmitted reference range : 23 - 38 Seconds . The reference range was not used to interpr et this result as normal/abnormal . FIONA (test code = FIONA) The [facility] patient population mean normal value for aPTT is 30 seconds. Lab Interpretation Normal (test code = 14953-6) [facility] / [id number] 15:04:57 Test Item Value Reference Range Interpretation [...] tions. Lab Interpretation (test Normal code = 63051-2) [facility]. METABOLIC PANEL (93184)2022-03-19 14:58:33 Test Item Value Reference Range Interpretation Comments NA (test code = 141 mmol/L 135-145 5992435014) K (test code = 4.3 mmol/L 3.5-5.0 1837594678) CL (test code = 107 mmol/L 98-108 8818964910) CO2 TOTAL (test code = 24 mmol/L 23-31 1487240016) AGAP (test code = 2-16 8971251486) BUN (test code = 11 mg/dL 7-23 2906134130) GLUCOSE (test code = 116 mg/dL 70-110 H 3537553428) CREATININE (test code = 0.71 mg/dL 0.50-1.04 0799421956) TOTAL BILI (test code = 0.5 mg/dL 0.1-1.0 1453597326) CALCIUM (test code = 9.3 mg/dL 8.6-10.6 4354947910) T PROTEIN (test code = 7.0 g/dL 6.3-8.2 0779897846) ALBUMIN (test code = 4.3 g/dL 3.5-5.0 7486993236) ALK PHOS (test code = 63 U/L 34-122 7907943506) ALTv (test code = 48 U/L 5-35 H 1742-6) AST(SGOT) (test code = 33 U/L 13-40 6068434521) eGFR (test code = mL/min/1.73m2 2159481784) FIONA (test code = FINOA) Association of Glomerular Filtration Rate (GFR) and [...] tests). Lab Interpretation Abnormal (test code = 53695-8) [facility] [id number] 14:34:00 Test Item Value Reference Range Interpretation Comments POCT PREG (test code = 1605) negative On board controls acceptable with present C Line (test code = 3574) POCT PREG LOT # (test code = 3575) [id number] POCT PREG TEST DATE (test 07-26-2023 code = 3576) Lab Interpretation (test code = Normal 04444-6) [facility] CenterIntubation2020-10-09 19:57:02HoLuzma Fairchild CRNA ? ? 08/04/2020 ?2:57 PMIntubationDate/Time: 08/04/2020 2:39 PMUrgency: elective Airway not difficult General Information and Staff Patient location during procedure: ORResident/ASSISTANT COACH: Luzma Almanza CRNAPerformed: resident/ASSISTANT COACH Indications and Patient ConditionIndications for airway management: [...] and BBS, teeth and lips per preop assessmentUnDell Set[facility] University of TexasGALV ONLY - SYPHILIS IGG/IGM 2020-06-06 13:57:00 Test Item Value Reference Range Interpretation Comments Syphilis IgG/IgM (test Non-reactive Non-reactive code = 02257-2) FIONA (test code = FIONA) Non-reactive - No serologic evidence of T. pallidum infection. Cannot exclude incubating or early syphilis. Submit a second specimen in 2-4 weeks if syphilis is clinically suspected. Equivocal - Further testing to follow. Reactive - Further testing to follow. Lab Interpretation (test Normal code = 41402-4) [facility] CenterHIV [facility]/2 AG-AB WITH [id number] 05:48:00 Test Item Value Reference Range Interpretation Comments HIV Negative Negative Semi-quantitative (test code = 80462-6) FIONA (test code = Non-reactive for HIV-1 FIONA) antigen and HIV-1/HIV-2 antibodies. ?No laboratory evidence of HIV infection. ?Repeat in 2-4 weeks if acute HIV infection is suspected. [facility] CenterXR WRIST 3+ VW [id number] 20:09:52 Osteonecrosis of the lunate. Nonspecific swelling [...] of the lunate.Nonspecific swelling over the medial forearm.[facility] [id number] 17:35:00 Test Item Value Reference Range Interpretation Comments ESR (test code = See_Comment [Automated message] 3930481298) The system [employer] generated this result transmitted ref erence range: 0 - 20 m m/HR. The reference r mariella was not used to interpret this result as normal/abnor mal. Lab Interpretation (test Normal code = 97531-0) [facility] [id number] 17:35:00 Test Item Value Reference Range Interpretation Comments ESR (test code = See_Comment [Automated message] 7759663262) The system [employer] generated this result transmitted ref erence range: 0 - 20 m m/HR. The reference r mariella was not used to interpret this result as normal/abnor mal. Lab Interpretation (test Normal code = 14471-2) [facility] WITH [id number] 17:10:00 Test Item Value Reference Range Interpretation [...] RDW-SD (test code = 45.0 fL 39-49.9 35782-7) RDW-CV (test code = 14.9 % 12-15.5 788-0) PLT (test code = See_Comment [Automated 777-3) message] The sy stem which generated this result transmitted reference range : 166 - 358 10*3/ ?L. The reference r mariella was not used to interpret this result as normal/abnormal . MPV (test code = 10.0 fL 9.5-12.9 85753-5) NRBC/100 WBC (test See_Comment [Automat ed code = 8827004153) message] The system which generated this result transmitted reference range : 0.0 - 10.0 /100 WBCs. The refer ence range was not u sed to interpret th is result as normal/abnormal . NRBC x10^3 (test code <0.01 See_Comment [Auto mated = 3538991482) message] The s ystem which generated this result transmitted reference range : 10*3/?L. The reference range was not used to interpret this result as normal/abnormal . GRAN MAT (NEUT) % 60.7 % (test code = 770-8) IMM GRAN % (test code 0.50 % = 1638469887) LYMPH % (test code = 28.4 % 736-9) MONO % (test code = 7.5 % 5905-5) EOS % (test code = 2.5 % 713-8) BASO % (test code = 0.4 % 706-2) GRAN MAT x10^3(ANC) 5.91 10*3/uL 1.88-7.09 (test code = 8504846177) IMM GRAN x10^3 (test 0.05 10*3/uL 0-0.06 code = 6321266700) LYMPH x10^3 (test code 2.76 10*3/uL 1.32-3.29 = 731-0) MONO x10^3 (test code 0.73 10*3/uL 0.33-0.92 = 742-7) EOS x10^3 (test code = 0.24 10*3/uL 0.03-0.39 711-2) BASO x10^3 (test code 0.04 10*3/uL 0.01-0.07 = 704-7) Lab Interpretation Abnormal (test code = 79611-0) [facility] WITH [id number] 17:10:00 Test Item Value Reference Range Interpretation [...] RDW-SD (test code = 45.0 fL 39-49.9 13369-3) RDW-CV (test code = 14.9 % 12-15.5 788-0) PLT (test code = See_Comment [Automated 777-3) message] The sy stem which generated this result transmitted reference range : 166 - 358 10*3/ ?L. The reference r mariella was not used to interpret this result as normal/abnormal . MPV (test code = 10.0 fL 9.5-12.9 55578-1) NRBC/100 WBC (test See_Comment [Automat ed code = 7192401703) message] The system which generated this result transmitted reference range : 0.0 - 10.0 /100 WBCs. The refer ence range was not u sed to interpret th is result as normal/abnormal . NRBC x10^3 (test code <0.01 See_Comment [Auto mated = 1313045857) message] The s ystem which generated this result transmitted reference range : 10*3/?L. The reference range was not used to interpret this result as normal/abnormal . GRAN MAT (NEUT) % 60.7 % (test code = 770-8) IMM GRAN % (test code 0.50 % = 8475281390) LYMPH % (test code = 28.4 % 736-9) MONO % (test code = 7.5 % 5905-5) EOS % (test code = 2.5 % 713-8) BASO % (test code = 0.4 % 706-2) GRAN MAT x10^3(ANC) 5.91 10*3/uL 1.88-7.09 (test code = 1860849063) IMM GRAN x10^3 (test 0.05 10*3/uL 0-0.06 code = 9418725605) LYMPH x10^3 (test code 2.76 10*3/uL 1.32-3.29 = 731-0) MONO x10^3 (test code 0.73 10*3/uL 0.33-0.92 = 742-7) EOS x10^3 (test code = 0.24 10*3/uL 0.03-0.39 711-2) BASO x10^3 (test code 0.04 10*3/uL 0.01-0.07 = 704-7) Lab Interpretation Abnormal (test code = 51648-4) [facility]"
[2023-05-04 20:19] LABS: Absolute Lymphocytes (CBC) 1.9 K/uL (0.7-4.9); Hematocrit 40.5 % (36.0-45.0); Lymphocytes % 8.9 % (15.3-44.8); MCV 83.9 fL (80-100); MPV 8.8 fL (7.6-11.3); RBC Red Blood Cell Count 4.83 M/uL (3.86-4.86)
[2023-05-04 20:28] LABS: Specific Gravity 1.022 (1.005-1.030)
[2023-05-04 20:35] LABS: Albumin 3.5 g/dL (3.4-5.0); Bilirubin Total 1.1 mg/dL (0.2-1.0); Potassium 4.1 mEq/L (3.5-5.1); Protein, Total 7.2 g/dL (6.4-8.2)
[2023-05-04 20:38] LABS: Specific Gravity 1.022 (1.005-1.030); Urine Bacteria None Seen /HPF (<20); Urine Bilirubin NEGATIVE (Negative); Urine Blood Negative (Negative); Urine Clarity Turbid (Clear); Urine Color Yellow (Yellow); Urine Glucose NEGATIVE (Negative); Urine Mucus Slight /HPF (None Seen); Urine Protein TRACE (Negative); Urine RBC <5 /HPF (None Seen); Urine Urobilinogen Normal (Normal)
[2023-05-04 21:09] LABS: SARS-CoV-2 Antigen Rapid Res Negative (Negative)
--- NOTE | 2023-05-04 21:19 | RAD REPORT ---
EXAM DESCRIPTION: CT - Stone Protocol - 05/04/2023 8:35 pm CLINICAL HISTORY: FLANK PAIN COMPARISON: Abdomen Pelvis W Contrast dated 03/14/2021; Abdomen Pelvis W Contrast dated 01/15/2019 ; CT ABD PELVIS W CONTRAST dated 03/11/2013 TECHNIQUE: Thin cut axial CT imaging of the abdomen and pelvis was performed without IV contrast. Mu ltiplanar reformats were generated and reviewed. All CT scans are performed using dose optimization technique as appropriate and may include automated exposure control or mA/KV adjustment according to patient size. FINDINGS: No suspicious findings in the lung bases. Diffuse hepatic parenchymal hypoattenuation suggesting steatosis. Adrenal glands, spleen, and pancrea s show no suspicious findings. Gallbladder and biliary tree are also without suspicious finding. Symmetric renal contour, without suspicious parenchymal findings within limits of noncontrast techniq ue. No evidence of radiopaque calculi or hydroureteronephrosis. No dilated bowel loops or bowel wall thickening. No free air, free fluid or inflammatory stranding. N o hernia, mass or bulky lymphadenopathy. The urinary bladder is without significant finding. Right adnexal cystic lesion, measuring 4.8 x 4.4 centimeter. No suspicious bony findings. IMPRESSION: No acute intra-abdominal process. Incidentally noted 4.8 centimeter right adnexal cystic lesion. This may be physiologic, but can be fu rther evaluated by dedicated pelvic ultrasound if clinically indicated.
--- NOTE | 2023-05-04 21:28 | RAD REPORT ---
EXAM DESCRIPTION: [place] Single View05/04/2023 9:05 pm CLINICAL HISTORY: abdomen pain COMPARISON: Chest Single View dated 08/25/2022; Chest Single View dated 01/15/2019 TECHNIQUE: Portable AP view of the chest. FINDINGS: The lungs are clear. No pneumothorax or effusion. The cardiomediastinal contours are unre markable. IMPRESSION: No acute cardiopulmonary process.
[2023-05-04] MEDS ORDERED: KETOROLAC 30 MG/ML INJ ONE (22:05)
[2023-05-04] MEDS ORDERED: NA CHLORIDE 0.9% 2,000 ML ONE (22:05)
[2023-05-05] MEDS ORDERED: dexAMETHasone 10 MG/ML VIAL ONE (00:05)
[2023-05-05] MEDS ORDERED: CLINDAMYCIN 900MG/D5W 900 MG/50 ML IVPB IV ONE (00:05)
--- NOTE | 2023-05-05 00:21 | ER ---
Nurse's Notes [facility] Name: Priscilla Solo Age: 37 yrs Sex: Female : 1985 Arrival Date: 05/04/2023 Time: 18:40 Bed 17 Private MD: Diagnosis: Streptococcal tonsillitis;Other and unspecified ovarian cysts;Dorsalgia, unspecified;Nausea with vomiting, unspecified Presentation: 05/04 18:48 Chief complaint: Patient states: body aches, ABD pain, right flank pain, h/a, sore vg1 throat and N/V/D since yesterday. Coronavirus screen: Vaccine status: Patient reports being unvaccinated. Client denies travel out of the [place] in the last 14 days. Ebola Screen: Patient negative for fever greater than or equal to 101.5 degrees Fahrenheit, and additional compatible Ebola Virus Disease symptoms Patient denies exposure to infectious person. Patient denies travel to an Ebola-affected area in the 21 days before illness onset. Initial Sepsis Screen: Does the patient meet any 2 criteria? HR > 90 bpm. Yes Does the patient have a suspected source of infection? No. Patient's initial sepsis screen is negative. Risk Assessment: Do you want to hurt yourself or someone else? Patient reports no desire to harm self or others. Onset of symptoms was May 03, 2023. 18:48 Method Of Arrival: Ambulatory 1 18:48 Acuity: ERIC 3 vg1 Triage Assessment: 18:50 General: Appears uncomfortable, Behavior is cooperative. Pain: Complains of pain in vg1 back and abdomen Pain currently is 8 out of 10 on a pain scale. Pain began 1 day ago. Neuro: Level of Consciousness is awake, alert, obeys commands, Oriented to person, place, time, situation. GI: Abdomen is round obese, Reports diarrhea, intolerance of fluids, intolerance of food, nausea, vomiting. Musculoskeletal: Circulation, motion, and sensation intact. 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 - Social history:: Smoking status: Patient denies any tobacco usage or history of. Screenin:16 [facility] ED Fall Risk Assessment (Adult) History of falling in the last 3 months, cm10 including since admission No falls in past 3 months (0 pts) Confusion or Disorientation No (0 pts) Intoxicated or Sedated No (0 pts) Impaired Gait No (0 pts) Mobility Assist Device Used No (0 pt) Altered Elimination No (0 pt) Score/Fall Risk Level 0 - 2 = Low Risk Oriented to surroundings, Maintained a safe environment, Hourly rounding (assess needs \T\ fall precautionary measures) done. Abuse screen: Denies threats or abuse. Denies injuries from another. Nutritional screening: No deficits noted. Tuberculosis screening: No symptoms or risk factors identified. Assessment: 20:15 Reassessment: See triage assessment. cm10 23:23 Reassessment: No changes from previously documented assessment. Patient and/or family cm10 updated on plan of care and expected duration. Pain level reassessed. Patient is alert, oriented x 3, equal unlabored respirations, skin warm/dry/pink. Patient states feeling better. Patient states symptoms have improved. Vital Signs: 18:48 BP 146 / 92; Pulse 112; Resp 20; Temp 100.1(O); Pulse Ox 96% on R/A; Weight 117.93 kg; vg1 Height 5 ft. 1 in. ; Pain 8/10; 20:16 BP 131 / 83; Pulse 92; Resp 18; Pulse Ox 98% on R/A; cm10 23:22 BP 124 / 64; Pulse 94; Resp 18; Pulse Ox 99% on R/A; cm10 07 00:00 BP 116 / 47; Pulse 91; Resp 18; Pulse Ox 96% ; vc1 05/04 18:48 Body Mass Index 49.13 (117.93 kg, 154.94 cm) vg1 05/04 18:48 Pain Scale: [facility] [place] ED Course: 05/04 18:41 Patient arrived in ED. ts1 18:44 Jerry Chandler PA is PHCP. cp 18:44 Jerry Rodriguez MD is Attending Physician. cp 18:50 Triage completed. vg1 18:50 Arm band placed on. vg1 18:58 Isis Lopez, RN is Primary Nurse. cm10 20:06 Initial lab(s) drawn, by wi, sent to lab. Urine collected: clean catch specimen. cm10 Inserted saline lock: 20 gauge in right antecubital area, using aseptic technique. Blood collected. 20:13 CT Stone Protocol Sent. cm10 20:13 CBC with Diff Sent. cm10 20:13 CMP Sent. cm10 20:13 Lipase Sent. cm10 20:13 Test, Urine Sent. cm10 20:13 Urinalysis w/ reflexes Sent. cm10 20:13 Influenza Screen (a \T\ B) Sent. cm10 20:13 Strep Sent. cm10 20:13 SARS RAPID Sent. cm10 20:17 Patient has correct armband on for positive identification. Bed in low position. Call cm10 light in reach. Side rails up X2. Door closed. Noise minimized. Lights dimmed. 20:[address] via wheelchair. cm10 20:37 CT Stone Protocol In Process Unspecified. EDMS 20:[address] from [address]. cm10 21:07 XRAY Chest (1 view) In Process Unspecified. EDMS 22:06 Lactate w/ 2H reflex if indic. Sent. cm10 22:06 Blood Culture Adult (2) Sent. cm10 22:35 US Pelvis Complete In Process Unspecified. EDMS 07 00:05 Report given to MARE Montoya. cm10 00:25 Lindsay Pompa RN is Primary Nurse. vc1 00:25 No provider procedures requiring assistance completed. vc1 00:40 IV discontinued, intact, bleeding controlled, No redness/swelling at site. Pressure vc1 dressing applied. Administered Medications: 05/04 22:06 Drug: NS 0.9% IV 1000 ml Route: IV; Rate: 1 bolus; Site: right antecubital; cm10 23:23 Follow up: Response: No adverse reaction; IV Status: Completed infusion; IV Intake: cm10 1000ml 22:06 Drug: NS 0.9% IV 1000 ml Route: IV; Rate: 1 bolus; Site: right antecubital; cm10 23:22 Follow up: IV Status: Completed infusion; IV Intake: 1000ml cm10 23:23 Follow up: Response: No adverse reaction cm10 22:06 Drug: Ketorolac IVP 15 mg Route: IVP; Site: right antecubital; cm10 23:23 Follow up: Response: No adverse reaction cm10 05/05 00:02 Drug: Clindamycin IVPB 900 mg Route: IVPB; Infused Over: 30 mins; Site: right cm10 antecubital; 00:03 Drug: Decadron - Dexamethasone IVP 10 mg Route: IVP; Site: right antecubital; cm10 00:03 CANCELLED (Physician Discretion): Acetaminophen PO 1000 mg PO once cp Medication: 05/04 20:16 VIS not applicable for this client. cm10 Intake: 23:22 IV: 1000ml; Total: 1000ml. cm10 23:23 IV: 1000ml; Total: 2000ml. cm10 Outcome: 05/05 00:21 Discharge ordered by MD. cp 00:39 Discharged to home ambulatory. vc1 00:39 Condition: good 00:39 Discharge instructions given to patient, Instructed on discharge instructions, follow up and referral plans. medication usage, Demonstrated understanding of instructions, follow-up care, medications, Prescriptions given X 4. 00:40 Patient left the ED. vc1 Signatures: Dispatcher [employer] EDMS Jerry Chandler PA PA cp Garcia, Victoria RN RN vg1 Lindsay Pompa RN RN vc1 Sangeeta Read PAS PAS ts1 Martinez, Clarissa, RN RN cm10
--- NOTE | 2023-05-05 00:22 | EDPHYS ---
Physician Documentation [facility] Name: Priscilla Solo Age: 37 yrs Sex: Female : 1985 Arrival Date: 05/04/2023 Time: 18:40 Bed 17 Private MD: ED Physician Jerry Rodriguez HPI: 05/04 20:00 This 37 yrs old Female presents to ER via Ambulatory with complaints of General cp Weakness, Abdominal Pain, Back Pain. 20:00 The patient presents with sore throat. cp 20:00 Onset: The symptoms/episode began/occurred yesterday. The patient presents with cp abdominal pain mid abdomen. Severity of symptoms: in the emergency department the symptoms are unchanged. Associated signs and symptoms: Pertinent positives: back pain, weakness. Severity of pain: in the emergency department the pain is unchanged despite home interventions. 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 - Social history:: Smoking status: Patient denies any tobacco usage or history of. ROS: 20:05 Constitutional: Positive for body aches, poor PO intake, Negative for fever. cp 20:05 Eyes: Negative for injury, pain, redness, and discharge. cp 20:05 ENT: Positive for sore throat. 20:05 Cardiovascular: Negative for chest pain. 20:05 Respiratory: Negative for wheezing. 20:05 Abdomen/GI: Positive for abdominal pain, nausea. 20:05 Back: Positive for pain at rest, pain with movement. 20:05 Neuro: Positive for headache, weakness, Negative for altered mental status. 20:05 All other systems are negative. Exam: 20:10 Constitutional: The patient appears in no acute distress, alert, awake, cp non-diaphoretic, non-toxic, well developed, well nourished, obese, obviously ill. 20:10 Head/Face: Normocephalic, atraumatic. cp 20:10 Eyes: Periorbital structures: appear normal, Conjunctiva: normal, no exudate, no injection, Sclera: no appreciated abnormality, Lids and lashes: appear normal, bilaterally. 20:10 ENT: External ear(s): are unremarkable, Ear canal(s): are normal, clear, TM's: dullness, bilaterally, Nose: is normal, Mouth: Lips: moist, Oral mucosa: moist, Posterior pharynx: Airway: no evidence of obstruction, patent, Tonsils: bilaterally enlarged, with erythema, with exudate, Uvula: midline, erythema, that is moderate, Voice: is normal. 20:10 Neck: ROM/movement: is normal, is supple, without pain, no range of motions limitations, no meningismus. 20:10 Chest/axilla: Inspection: normal. 20:10 Cardiovascular: Rate: tachycardic, Rhythm: regular. 20:10 Respiratory: the patient does not display signs of respiratory distress, Respirations: normal, no use of accessory muscles, no retractions, labored breathing, is not present, Breath sounds: are clear throughout, no decreased breath sounds, no stridor, no wheezing. 20:10 Abdomen/GI: Inspection: obese Bowel sounds: active, all quadrants, Palpation: soft, in all quadrants, moderate abdominal tenderness, in the mid abdomen. 20:10 Back: pain, that is moderate, of the left mid back, ROM is painful, with all movement. 20:10 Skin: no rash present. 20:10 Neuro: Orientation: to person, place \T\ time. Mentation: is normal, Motor: moves all fours, strength is normal. Vital Signs: 18:48 BP 146 / 92; Pulse 112; Resp 20; Temp 100.1(O); Pulse Ox 96% on R/A; Weight 117.93 kg; vg1 Height 5 ft. 1 in. ; Pain 8/10; 20:16 BP 131 / 83; Pulse 92; Resp 18; Pulse Ox 98% on R/A; cm10 23:22 BP 124 / 64; Pulse 94; Resp 18; Pulse Ox 99% on R/A; cm10 07/10 00:00 BP 116 / 47; Pulse 91; Resp 18; Pulse Ox 96% ; vc1 05/04 18:48 Body Mass Index 49.13 (117.93 kg, 154.94 cm) vg1 05/04 18:48 Pain Scale: Adult vg1 MDM: 05/04 18:59 Patient medically screened. 05/05 00:20 Data reviewed: vital signs, nurses notes, lab test result(s), EKG, radiologic studies, cp CT scan, plain films, ultrasound. 00:20 Differential diagnosis: group A strep tonsillitis, laryngitis, mononucleosis, cp peritonsillar abscess retropharyngeal abcess. Consideration of Admission/Observation Escalation of care including admission/observation considered. I considered the following discharge prescriptions or medication management in the emergency department Medications were administered in the Emergency Department. See MAR. Care significantly affected by the following chronic conditions: Hypertension, Congestive Heart Failure, Obesity. Counseling: I had a detailed discussion with the patient and/or guardian regarding: the historical points, exam findings, and any diagnostic results supporting the discharge/admit diagnosis, lab results, radiology results, to return to the emergency department if symptoms worsen or persist or if there are any questions or concerns that arise at home. Response to treatment: the patient's symptoms have markedly improved after treatment, and as a result, I will discharge patient. 05/04 19:48 Order name: CBC with Diff; Complete Time: 21:10 05/04 21:11 Interpretation: Normal except: WBC 21.60; MINDI% 85.2; LYM% 8.9; NEUT A 18.4. 05/04 19:48 Order name: CMP; Complete Time: 21:10 05/04 21:11 Interpretation: Normal except: NA 135; GLUC 111; BILIT 1.1; GLOB 3.7; A/G 0.9. 05/04 19:48 Order name: Lipase; Complete Time: 21:10 05/04 19:48 Order name: Test, Urine; Complete Time: 21:10 05/04 19:48 Order name: Urinalysis w/ reflexes; Complete Time: 21:10 05/04 23:00 Interpretation: Normal except: [facility] Turbid; UPROT TRACE. 05/04 19:48 Order name: SARS RAPID; Complete Time: 21:10 05/04 19:48 Order name: Strep; Complete Time: 21:10 05/04 23:01 Interpretation: Reviewed. 05/04 19:48 Order name: Influenza Screen (a \T\ B); Complete Time: 21:10 05/04 21:33 Order name: Lactate w/ 2H reflex if indic.; Complete Time: 23:00 05/04 21:33 Order name: Blood Culture Adult (2) 05/04 19:54 Order name: CT Stone Protocol; Complete Time: 21:30 05/04 19:54 Order name: XRAY Chest (1 view); Complete Time: 21:30 05/04 21:31 Order name: US Pelvis Complete 05/04 19:48 Order name: IV Saline Lock; Complete Time: 20:24 05/04 19:48 Order name: Labs collected and sent; Complete Time: 20:24 05/04 23:59 Order name: PO challenge; Complete Time: 00:05 cp Administered Medications: 05/04 22:06 Drug: NS 0.9% IV 1000 ml Route: IV; Rate: 1 bolus; Site: right antecubital; cm10 23:23 Follow up: Response: No adverse reaction; IV Status: Completed infusion; IV Intake: cm10 1000ml 22:06 Drug: NS 0.9% IV 1000 ml Route: IV; Rate: 1 bolus; Site: right antecubital; cm10 23:22 Follow up: IV Status: Completed infusion; IV Intake: 1000ml cm10 23:23 Follow up: Response: No adverse reaction [facility] 22:06 Drug: Ketorolac IVP 15 mg Route: IVP; Site: right antecubital; cm10 23:23 Follow up: Response: No adverse reaction [facility] 05/05 00:02 Drug: Clindamycin IVPB 900 mg Route: IVPB; Infused Over: 30 mins; Site: right cm10 antecubital; 00:03 Drug: Decadron - Dexamethasone IVP 10 mg Route: IVP; Site: right antecubital; cm10 00:03 CANCELLED (Physician Discretion): Acetaminophen PO 1000 mg PO once cp Disposition Summary: 05/05/23 00:21 Discharge Ordered Location: Home cp Problem: new cp Symptoms: have improved cp Condition: Stable cp Diagnosis - Streptococcal tonsillitis cp - Other and unspecified ovarian cysts cp - Dorsalgia, unspecified cp - Nausea with vomiting, unspecified cp Followup: cp - With: Private Physician - When: 1 - 2 days - Reason: Recheck today's complaints Discharge Instructions: - Discharge Summary Sheet cp - Acute Back Pain, Adult cp - Nausea and Vomiting, Adult cp - Tonsillitis cp Forms: - Medication Reconciliation Form cp - Thank You Letter cp - Antibiotic Education cp - Prescription Opioid Use cp - [email or web address] cp Prescriptions: - Clindamycin HCl 300 mg Oral Capsule - take 1 capsule by ORAL route every 6 hours for 10 days; 40 capsule; Refills: 0, cp Product Selection Permitted - Diflucan 150 mg Oral Tablet - take 1 tablet by ORAL route one time for 1 day repeat 2 days later as needed; 2 cp tablet; Refills: 0, Product Selection Permitted - Ibuprofen 800 mg Oral Tablet - take 1 tablet by ORAL route every 8 hours As needed take with food; 30 tablet; cp Refills: 0, Product Selection Permitted - Zofran 4 mg Oral Tablet - take 1 tablet by ORAL route every 12 hours As needed; 20 tablet; Refills: 0, cp Product Selection Permitted Signatures: Dispatcher [employer] EDMS Jerry Chandler PA PA cp Maida Markham RN RN vg1 Isis Lopez RN RN cm10 Corrections: (The following items were deleted from the chart) 05/04 21:11 21:10 Normal except: WBC 21.60. cp cp 21:11 21:11 Normal except: NA 135; GLUC 111. cp cp 05/05 00:03 00:03 Acetaminophen PO 1000 mg PO once ordered. cp cp
[2023-05-05 01:12] VITALS: TEMP 100.1
[2023-05-05 01:16] VITALS: BP 116/47; O2SAT 96
--- NOTE | 2023-05-06 10:53 | RAD REPORT ---
EXAM DESCRIPTION: US - Pelvis Complete - 05/05/2023 5:34 am CLINICAL HISTORY: 37 years Female ABD PAIN COMPARISON: CT scan of the abdomen pelvis report performed on the same day. TECHNIQUE: Transabdominal and endovaginal sonography of the chest was performed. FINDINGS: Uterus is enlarged measuring 12.2 x 5.0 x 6 5 cm. Endometrium measured 8 mm. Right ovary is normal in size measuring 5.0 x 4.8 x 4.6 cm. Doppler evaluation revealed satisfactory flow. Complex cystic finding is seen involving the right ovary measuring 5.0 x 4.8 cm. Left ovary is normal in size and echogenicity measuring 2.1 x 2.2 x 1.7 cm. Doppler evaluation reveal ed satisfactory flow. No abnormal fluid collections seen. IMPRESSION: Enlarged uterus with no focal abnormality. 5 cm complex cystic lesion right ovary likely hemorrhagic cyst. This correlates with the finding noted on CT scan of the abdomen and pelvis perfor med on the same day. No evidence for ovarian torsion. Six-week follow-up pelvic ultrasound suggested to confirm resolution of this finding. No sonographic abnormality involving the left ovary. Electronically signed by: Anu Frederick MD 05/04/2023 11:31 PM CDT Due to temporary technical issues with the PACS/Fluency reporting system, reports are being signed by the in house radiologists without review as a courtesy to insure prompt reporting. The interpreting radiologist is fully responsible for the content of the report.
== END 2023-05-05 00:40 | disposition home or self-care (01) ==
LOC: ER 18:40
DX: J03.00 Acute streptococcal tonsillitis, unspecified (principal); M54.9 Dorsalgia, unspecified; N83.299 Other ovarian cyst, unspecified side; I10 Essential (primary) hypertension; I50.9 Heart failure, unspecified; Z20.822 Contact with and (suspected) exposure to COVID-19; Z88.5 Allergy status to narcotic agent; Z88.8 Allergy status to other drugs, medicaments and biological substances; Z91.040 Latex allergy status; Z91.048 Other nonmedicinal substance allergy status
CPT/HCPCS: 96361; 87040 ×2; 85025; 81001; 36415; 81025; 87081; 83605; 83690; 80053; 87804 ×2; 76377; 74176; 71045; 76856; 96375; 96374; 99285; 87811; J7030

== ENCOUNTER 2023-09-01 10:22 | Emergency (ER) | payer OTHER ==
--- OUTSIDE RECORDS SUMMARY | 2023-09-01 10:34 | XMS REPORT | Continuity of Care Document ---
:1985 Author Organization [facility] t Address [address] [facility] [place] [address] Care Team Providers Name Role Phone [place] Marleny Ramirez Primary Care Physician TOREY WHYTE Attending Clinician Unavailable MIRTA CORREA Attending Clinician Unavailable Cj Shields Attending Clinician Unknown, Attending Attending Clinician Unavailable CJ TIERNEY Attending Clinician Unavailable Regla Solano Attending Clinician REGLA BAEZ Attending Clinician Unavailable Mirta Armando Attending Clinician [phone] Doctor Unassigned, [place] Attending Clinician Unavailable Jenniffer Hernandez RN Attending Clinician Unavailable Latonia Brar Attending Clinician Bello Arango Attending Clinician NANNETTE JUNA Attending Clinician Unavailable Nannette Juan MD Attending Clinician TOREY CESAR Attending Clinician Unavailable Torey Cesar PA-C Attending Clinician BELLO KURTZ Attending Clinician Unavailable LOTTIE GARVIN Attending Clinician Unavailable Lottie Garvin MD Attending Clinician Casie Whipple Attending Clinician Unavailable Harjit Sened DO Attending Clinician Torey Whyte MD Attending Clinician Bishop GARVEY, Ashley Attending Clinician Unavailable Mirza Angeles MD Attending Clinician Only, Adc Test Attending Clinician Unavailable RUEL IQBAL Attending Clinician Unavailable Lab, Ang-Rmchp Attending Clinician Unavailable CASIE ORTEGA Attending Clinician Unavailable KAMI BERNARD [...] Type Policy Number Effective Date Expiration Date S bay [facility] [id number] 2012 00:00:00 PLUS Problems Condition Condition Condition [...] bilateral 01-27 ity of tubal tubal 00:00: [place] ligation ligation [address] [place], [place] [address]a l Branch Morbid Morbid Disease Active Univers obesity obesity 01-27 ity of 00:00: [address] BMI BMI Disease Active Univers 50.0-59.9, 50.0-59.9, 4- it y of adult adult 00:00: [address] Research Research Disease Active Overview: Un jac study study 2-16 Formattin ity of patient patient 00:00: g of this note is Medical different Branch from the original. Patient is in the HCTZ study IRB # [id number] y questions please contact:Rachel Manley MD [phone] Hightower MD [phone] Frias MD [phone] facts Patient randomize d after delivery if they met inclusion criteria a nd accepted Medicati on comes from [facility] not pharmacy, [facility] Phone Number Ext. [phone] or cell [phone] Patient can start meds as soon as they tolerate PO One tab per day of either placebo or HCTZ Medicati on stays with patient Medicati on will appear on DEC, Nurses need to randy as given (No barcode) Medicati on needs to counted prior to discharge by research steam cleaner All follow ups need to be on POD or PP day # 14 or more Patient needs to be reminded to bring their left over medicatio n and bottle back to their visit IDS needs to be notified at time of discharge Please contact Dr. Manley with any Questions Pain Pain Disease Active Univers pelvic pelvic 2-18 ity of 00:00: Medical Branch Depression Depression Disease Active U nivers 05-18 ity of 00:00: Medical Branch Asthma Asthma Disease Active Overview: [facility] 05-18 Formattin ity of 00:00: g of this note Medical might be Branch different from the original. ICD10 Diagnosis Term Coil Winder Utility Allergies, Adverse Reactions, Alerts Allergy Allergy Status Severity Reaction(s) Onset Inactive Treating Comm ents Source Name Type Date Date Clinician Morphine Drug Active Itching 2019-10 Univers Allergy 0-09 ity of 00:00: 00 Medical Branch MORPHINE DRUG Active Low ITCHING 2019-10 Univers INGREDI 0-09 ity of 00:00: 00 Medical Branch Latex Propensi Active Rash 2017- Univers ty to 2-15 ity of adverse 00:00: [place] reaction 00 Medical s Branch LATEX DRUG Active Rash Univers INGREDI 2-15 ity of 00:00: 00 Medical Branch Social History Social Habit Start Date Stop Date Quantity Comments Source Gender identity Universit y of [facility] Sexual orientation Univer sity [facility] Exposure to 2023-02-25 2023-03-07 Not sure University of SARS-CoV-2 (event) 00:00:00 11:03:00 [facility] History of Social 2022-07-17 2022-07-17 Univers ity of function 00:00:00 00:00:00 [facility] Alcohol intake 2019-12-23 2019-12-23 0 /d University of 00:00:00 00:00:00 [facility] Alcohol Comment 2014-05-18 2014-05-18 rarely Universit y of 00:00:00 00:00:00 [facility] Tobacco use and 2014-05-18 2014-05-18 Smokeless Universit y of exposure 00:00:00 00:00:00 tobacco non-user [facility] Sex [birth year] Universit y of 00:00:00 00:00:00 [facility] Smoking Status Start Date Stop Date Source Never smoked tobacco [facility] Medications Ordered Filled Start Stop Current Ordering Indication Dosage Frequency Signature Comments Components Source Medication Medication Date Date Medication? Clinician (SIG) Name Name benzonatate 2022- No [id number] 200mg Take 1 Univers 200 mg 03-07 capsule by ity of capsule 00:00: 04:59 mouth 3 [place] 00 :00 (three) Medical times [place] daily as needed for Cough for up to 10 days. fluconazole 2022- No [id number] 150mg Take 1 Univers (DIFLUCAN) 03-07-13 tablet by ity of 150 mg 00:00: 04:59 [place] tablet 00 :00 now for 1 Medical dose. Branch metroNIDAZO 2022- No [id number] 2000mg Take 4 Univers LE 500 mg 5- 05-03 tablets by ity of tablet 00:00: 04:59 [place] 00 :[place] now for 1 Medical dose. Branch metroNIDAZO 2022- No [id number] 2000mg Take 4 Univers LE 500 mg 5-02 05-03 tablets by ity of tablet 00:00: 04:59 [place] 00 :00 now for 1 Medical dose. Branch metroNIDAZO 2022- No [id number] 2000mg Take 4 Univers LE 500 mg 5-02 05-03 tablets by ity of tablet 00:00: 04:59 [place] 00 :00 now for 1 Medical dose. Branch metroNIDAZO 2022- No [id number] 2000mg Take 4 Univers LE 500 mg 5-02 05-03 tablets by ity of tablet 00:00: 04:59 [place] 00 :00 now for 1 Medical dose. Branch ampicillin 2022- No [id number] 500mg Take 1 Univers 500 mg 5-01 05-12 capsule by ity of capsule 00:00: 04:59 mouth 4 [place] 00 :00 (four) Medical times Branch daily for 10 days. ampicillin 2022-2022- No [id number] 500mg Take 1 Univers 500 mg 5-01 05-12 capsule by ity of capsule 00:00: 04:59 mouth 4 [place] 00 :00 (four) Medical times Branch daily for 10 days. ampicillin 2022-2022- No [id number] 500mg Take 1 Univers 500 mg 5-01 05-12 capsule by ity of capsule 00:00: 04:59 mouth 4 [place] 00 :00 (four) Medical times Branch daily for 10 days. ampicillin 2022-2022- No [id number] 500mg Take 1 Univers 500 mg 5-01 05-12 capsule by ity of capsule 00:00: 04:59 mouth 4 [place] 00 :00 (four) Medical times Branch daily for 10 days. ampicillin 2022-2022- No [id number] 500mg Take 1 Univers 500 mg 5-01 05-12 capsule by ity of capsule 00:00: 04:59 mouth 4 [place] 00 :00 (four) Medical times Branch daily for 10 days. ampicillin 2022- No [id number] 500mg Take 1 Univers 500 mg 5-01 05-12 capsule by ity of capsule 00:00: 04:59 mouth 4 [place] 00 :00 (four) Medical times Branch daily for 10 days. fluconazole 2022- No [id number] 150mg Take 1 Univers (DIFLUCAN) 4-28 04-29 tablet by ity of 150 mg 00:00: 04:59 mouth [place] tablet 00 :00 now for 1 Medical dose. Branch fluconazole 2022- No [id number] 150mg Take 1 Univers (DIFLUCAN) -21 02- tablet by ity of 150 mg 00:00: 04:59 mouth [place] tablet 00 :00 now for 1 Medical dose. Branch fluconazole 2022- No [id number] 150mg Take 1 Univers (DIFLUCAN) 4-21 02-29 tablet by ity of 150 mg 00:00: 04:59 mouth [place] tablet 00 :00 now for 1 Medical dose. Branch cetirizine Yes [id number] 10mg Take 1 U nivers (ZYRTEC) 10 1-29 tablet by ity of mg tablet 00:00: [place] 00 the Medical morning. Branch fluconazole Yes [id number] Take 1 tab Univers (DIFLUCAN) 1-29 by mouth ity o f 150 mg 00:00: now and [place] tablet 00 repeat in Medical 3 days Branch Nebulizer Yes [id number] Use as Un jac Accessories -29 directed ity of (ADULT 00:00: [place] AEROSOL 00 Medical MASK) Misc Branch cetirizine Yes [id number] 10mg Take 1 U nivers (ZYRTEC) 10 - tablet by ity of mg tablet 00:00: mouth [place] 00 the Medical morning. Branch fluconazole Yes [id number] Take 1 tab Univers (DIFLUCAN) 1-29 by mouth ity o f 150 mg 00:00: now and [place] tablet 00 repeat in Medical 3 days Branch Nebulizer Yes [id number] Use as Un jac Accessories -29 directed ity of (ADULT 00:00: [place] AEROSOL 00 Medical MASK) Misc Branch cetirizine Yes [id number] 10mg Take 1 U nivers (ZYRTEC) 10 -29 tablet by ity of mg tablet 00:00: mouth [place] 00 the Medical morning. Branch fluconazole Yes [id number] Take 1 tab Univers (DIFLUCAN) 1-29 by mouth ity o f 150 mg 00:00: now and [place] tablet 00 repeat in Medical 3 days Branch Nebulizer Yes [id number] Use as Un jac Accessories -29 directed ity of (ADULT 00:00: [place] AEROSOL 00 Medical MASK) Mis Branch cetirizine Yes [id number] 10mg Take 1 U nivers (ZYRTEC) 10 1-29 tablet by ity of mg tablet 00:00: mouth [place] 00 the Medical morning. Branch fluconazole 0 Yes [id number] Take 1 tab Univers (DIFLUCAN) 1-29 by mouth ity o f 150 mg 00:00: now and [place] tablet 00 repeat in Medical 3 days Branch Nebulizer Yes [id number] Use as Un jac Accessories - directed ity of (ADULT 00:00: [place] AEROSOL 00 Medical MASK) [facility] cetirizine Yes [id number] 10mg Take 1 U nivers (ZYRTEC) 10 1-29 tablet by ity of mg tablet 00:00: mouth [place] 00 the Medical morning. Branch fluconazole Yes [id number] Take 1 tab Univers (DIFLUCAN) 1-29 by mouth ity o f 150 mg 00:00: now and [place] tablet 00 repeat in Medical 3 days Branch Nebulizer Yes [id number] Use as Un jac Accessories -29 directed ity of (ADULT 00:00: [place] AEROSOL 00 Medical MASK) [facility] cetirizine Yes [id number] 10mg Take 1 U nivers (ZYRTEC) 10 1-29 tablet by ity of mg tablet 00:00: mouth [place] 00 the Medical morning. Branch fluconazole 0 Yes [id number] Take 1 tab Univers (DIFLUCAN) 1-29 by mouth ity o f 150 mg 00:00: now and [place] tablet 00 repeat in Medical 3 days Branch Nebulizer Yes [id number] Use as Un jac Accessories - directed ity of (ADULT 00:00: [place] AEROSOL 00 Medical MASK) [facility] cetirizine Yes [id number] 10mg Take 1 U nivers (ZYRTEC) 10 1-29 tablet by ity of mg tablet 00:00: mouth [place] 00 the Medical morning. Branch fluconazole 0 Yes [id number] Take 1 tab Univers (DIFLUCAN) 1-29 by mouth ity o f 150 mg 00:00: now and [place] tablet 00 repeat in Medical 3 days Branch Nebulizer Yes [id number] Use as Un jac Accessories -29 directed ity of (ADULT 00:00: [place] AEROSOL 00 Medical MASK) [facility] cetirizine Yes [id number] 10mg Take 1 U nivers (ZYRTEC) 10 1-29 tablet by ity of mg tablet 00:00: mouth [place] 00 the Medical morning. Branch fluconazole 0 Yes [id number] Take 1 tab Univers (DIFLUCAN) -29 by mouth ity o f 150 mg 00:00: now and [place] tablet 00 repeat in Medical 3 days Branch Nebulizer Yes [id number] Use as Un jac Accessories -29 directed ity of (ADULT 00:00: [place] AEROSOL 00 Medical MASK) [facility] cetirizine Yes [id number] 10mg Take 1 U nivers (ZYRTEC) 10 1-29 tablet by ity of mg tablet 00:00: mouth [place] 00 the Medical morning. Branch fluconazole 0 Yes [id number] Take 1 tab Univers (DIFLUCAN) 1-29 by mouth ity o f 150 mg 00:00: now and [place] tablet 00 repeat in Medical 3 days Branch Nebulizer Yes [id number] Use as Un jac Accessories -29 directed ity of (ADULT 00:00: [place] AEROSOL 00 Medical MASK) [facility] cetirizine Yes [id number] 10mg Take 1 U nivers (ZYRTEC) 10 -29 tablet by ity of mg tablet 00:00: mouth [place] 00 the Medical morning. Branch fluconazole 0 Yes [id number] Take 1 tab Univers (DIFLUCAN) 1-29 by mouth ity o f 150 mg 00:00: now and [place] tablet 00 repeat in Medical 3 days Branch Nebulizer Yes [id number] Use as Un jac Accessories -29 directed ity of (ADULT 00:00: [place] AEROSOL 00 Medical MASK) [facility] cetirizine Yes [id number] 10mg Take 1 U nivers (ZYRTEC) 10 1-29 tablet by ity of mg tablet 00:00: mouth [place] 00 the Medical morning. Branch fluconazole 0 Yes [id number] Take 1 tab Univers (DIFLUCAN) 1-29 by mouth ity o f 150 mg 00:00: now and [place] tablet 00 repeat in Medical 3 days Branch Nebulizer 2022-0 Yes [id number] Use as Un jac Accessories 1-29 directed ity of (ADULT 00:00: [place] AEROSOL 00 Medical MASK) [facility] cetirizine 0 Yes [id number] 10mg Take 1 U nivers (ZYRTEC) 10 1-29 tablet by ity of mg tablet 00:00: mouth [place] 00 the Medical morning. Branch fluconazole 0 Yes [id number] Take 1 tab Univers (DIFLUCAN) 1-29 by mouth ity o f 150 mg 00:00: now and [place] tablet 00 repeat in Medical 3 days Branch Nebulizer 0 Yes [id number] Use as Un jac Accessories -29 directed ity of (ADULT 00:00: [place] AEROSOL 00 Medical MASK) [facility] cetirizine 0 Yes [id number] 10mg Take 1 U nivers (ZYRTEC) 10 1-29 tablet by ity of mg tablet 00:00: mouth [place] 00 the Medical morning. Branch fluconazole 0 Yes [id number] Take 1 tab Univers (DIFLUCAN) 1-29 by mouth ity o f 150 mg 00:00: now and [place] tablet 00 repeat in Medical 3 days Branch Nebulizer 0 Yes [id number] Use as Un jac Accessories -29 directed ity of (ADULT 00:00: [place] AEROSOL 00 Medical MASK) [facility] cetirizine Yes [id number] 10mg Take 1 U nivers (ZYRTEC) 10 1-29 tablet by ity of mg tablet 00:00: mouth [place] 00 the Medical morning. Branch fluconazole 0 Yes [id number] Take 1 tab Univers (DIFLUCAN) 1-29 by mouth ity o f 150 mg 00:00: now and [place] tablet 00 repeat in Medical 3 days Branch Nebulizer 0 Yes [id number] Use as Un jac Accessories 1-29 directed ity of (ADULT 00:00: [place] AEROSOL 00 Medical MASK) [facility] cetirizine Yes [id number] 10mg Take 1 U nivers (ZYRTEC) 10 1-29 tablet by ity of mg tablet 00:00: mouth [place] 00 the Medical morning. Branch fluconazole Yes [id number] Take 1 tab Univers (DIFLUCAN) 1-29 by mouth ity o f 150 mg 00:00: now and [place] tablet 00 repeat in Medical 3 days Branch Nebulizer Yes [id number] Use as Un jac Accessories 1-29 directed ity of (ADULT 00:00: [place] AEROSOL 00 Medical MASK) [facility] cetirizine Yes [id number] 10mg Take 1 U nivers (ZYRTEC) 10 1-29 tablet by ity of mg tablet 00:00: mouth [place] 00 the Medical morning. Branch fluconazole Yes [id number] Take 1 tab Univers (DIFLUCAN) 1-29 by mouth ity o f 150 mg 00:00: now and [place] tablet 00 repeat in Medical 3 days Branch Nebulizer Yes [id number] Use as Un jac Accessories 1-29 directed ity of (ADULT 00:00: [place] AEROSOL 00 Medical MASK) [facility] cetirizine Yes [id number] 10mg Take 1 U nivers (ZYRTEC) 10 1-29 tablet by ity of mg tablet 00:00: mouth [place] 00 the Medical morning. Branch fluconazole Yes [id number] Take 1 tab Univers (DIFLUCAN) 1-29 by mouth ity o f 150 mg 00:00: now and [place] tablet 00 repeat in Medical 3 days Branch Nebulizer Yes [id number] Use as Un jac Accessories -29 directed ity of (ADULT 00:00: [place] AEROSOL 00 Medical MASK) [facility] cetirizine Yes [id number] 10mg Take 1 U nivers (ZYRTEC) 10 1-29 tablet by ity of mg tablet 00:00: mouth [place] 00 the Medical morning. Branch fluconazole Yes [id number] Take 1 tab Univers (DIFLUCAN) 1-29 by mouth ity o f 150 mg 00:00: now and [place] tablet 00 repeat in Medical 3 days Branch Nebulizer Yes [id number] Use as Un jac Accessories 11-24 directed ity of (ADULT 00:00: [place] AEROSOL 00 Medical MASK) Misc Branch albuterol 2022- No [id number] 2.5mg Inhale 0.5 Univers 2.5 mg/0.5 11-24 03-01 mL every 6 it y of mL 00:00: 05:59 (six) [place] nebulizer 00 :00 hours as Medica l solution needed for Branc h Wheezing for up to 30 days. amoxicillin 2022- No [id number] 1{tbl} Take 1 Univers -clavulanat 11-24 02-09 tablet by it y of e 00:00: 05:59 mouth in [place] (AUGMENTIN) 00 :00 the Medical 875-125 mg morning Branch per tablet and 1 tablet in the evening. Do all this for 10 days. sulfamethox 2021- No [id number] 1{tbl} Take 1 Univers azole-trime 07-20 10-02 tablet by it y of thoprim 00:00: 04:59 mouth in [place] (BACTRIM 00 :00 the Medical DS) 800-160 morning Branc h mg per and 1 tablet tablet in the evening. Do all this for 7 days. ondansetron Yes [id number] 4mg Take 1 Univers 4 mg 9-21 tablet by ity of disintegrat 00:00: mouth [place] ing tablet 00 every 8 Medica l (eight) Branch hours as needed for Nausea and Vomiting (N/V). cetirizine Yes [id number] 10mg Take 1 U nivers (ZYRTEC) 10 9-21 tablet by ity of mg tablet 00:00: mouth [place] 00 the Medical morning. Branch ondansetron Yes [id number] 4mg Take 1 Univers 4 mg 9-21 tablet by ity of disintegrat 00:00: mouth [place] ing tablet 00 every 8 Medica l (eight) Branch hours as needed for Nausea and Vomiting (N/V). cetirizine Yes [id number] 10mg Take 1 U nivers (ZYRTEC) 10 9-21 tablet by ity of mg tablet 00:00: mouth in [place] 00 the Medical morning. Branch ondansetron 2021-0 Yes [id number] 4mg Take 1 Univers 4 mg 9-21 tablet by ity of disintegrat 00:00: mouth [place] ing tablet 00 every 8 Medica l (eight) Branch hours as needed for Nausea and Vomiting (N/V). cetirizine 0 Yes [id number] 10mg Take 1 U nivers (ZYRTEC) 10 9-21 tablet by ity of mg tablet 00:00: mouth [place] 00 the Medical morning. Branch ondansetron 2021-0 Yes [id number] 4mg Take 1 Univers 4 mg 9-21 tablet by ity of disintegrat 00:00: mouth [place] ing tablet 00 every 8 Medica l (eight) Branch hours as needed for Nausea and Vomiting (N/V). ondansetron 2021-0 Yes [id number] 4mg Take 1 Univers 4 mg 9-21 tablet by ity of disintegrat 00:00: mouth [place] ing tablet 00 every 8 Medica l (eight) Branch hours as needed for Nausea and Vomiting (N/V). ondansetron 2021-0 Yes [id number] 4mg Take 1 Univers 4 mg 9-21 tablet by ity of disintegrat 00:00: mouth [place] ing tablet 00 every 8 Medica l (eight) Branch hours as needed for Nausea and Vomiting (N/V). ondansetron 2021-0 Yes [id number] 4mg Take 1 Univers 4 mg 9-21 tablet by ity of disintegrat 00:00: mouth [place] ing tablet 00 every 8 Medica l (eight) Branch hours as needed for Nausea and Vomiting (N/V). ondansetron 2021-0 Yes [id number] 4mg Take 1 Univers 4 mg 9-21 tablet by ity of disintegrat 00:00: mouth [place] ing tablet 00 every 8 Medica l (eight) Branch hours as needed for Nausea and Vomiting (N/V). ondansetron 2-0 2022- No [id number] 4mg Take 1 Univers 4 mg 9-21 04-28 tablet by ity of disintegrat 00:00: 00:00 mouth [place] ing tablet 00 :00 every 8 Medica l (eight) Branch hours as needed for Nausea and Vomiting (N/V). ondansetron 2022022- No [id number] 4mg Take 1 Univers 4 mg 07-17 tablet by ity of disintegrat 00:00: 00:00 mouth [place] ing tablet 00 :00 every 8 Medica l (eight) Branch hours as needed for Nausea and Vomiting (N/V). ondansetron 2022- No [id number] 4mg Take 1 Univers 4 mg 07-17 tablet by ity of disintegrat 00:00: 00:00 mouth [place] ing tablet 00 :00 every 8 Medica l (eight) Branch hours as needed for Nausea and Vomiting (N/V). cetirizine 2022- No [id number] 10mg Take 1 Univers (ZYRTEC) 10 07-17 tablet by it y of mg tablet 00:00: 00:00 mouth in [place] 00 :00 the Medical morning. Branch polymyxin B 2021- No [id number] 1[drp] Place 1 Univers sulf-trimet 07-17 Drop in ity of hoprim 00:00: 04:59 both eyes [place] 10,000 00 :00 4 (four) Medical unit- 1 times Branch mg/mL daily for ophthalmic 7 days. drops polymyxin B 2021- No [id number] 1[drp] Place 1 Univers sulf-trimet 07-17 Drop in ity of hoprim 00:00: 04:59 both eyes [place] 10,000 00 :00 4 (four) Medical unit- 1 times Branch mg/mL daily for ophthalmic 7 days. drops fluconazole 2021- No [id number] 150mg Take 1 Univers (DIFLUCAN) 07-17 tablet by ity of 150 mg 00:00: 04:59 mouth [place] tablet 00 :00 now for 1 Medical dose. Branch amoxicillin 2021- No [id number] 1{tbl} Take 1 Univers -clavulanat 06-12-25 tablet by it y of e 00:00: 04:59 mouth in [place] (AUGMENTIN) 00 :00 the Medical 875-125 mg morning Branch per tablet and 1 tablet in the evening. Do all this for 7 days. benzonatate 2021- No [id number] 200mg Take 1 Univers 200 mg 6-19 06-30 capsule by ity of capsule 00:00: 04:59 mouth 3 [place] 00 :00 (three) Medical times Branch daily as needed for Cough for up to 10 days. amoxicillin 2021- No [id number] 1{tbl} Take 1 Univers -clavulanat 6-19 06-27 tablet by it y of e 00:00: 04:59 mouth 2 [place] (AUGMENTIN) 00 :00 (two) Medical 875-125 mg times Branch per tablet daily for 7 days. amoxicillin 2021- No [id number] 1{tbl} Take 1 Univers -clavulanat 6-08 06-16 tablet by it y of e 875-125 00:00: 04:59 mouth 2 [place] mg per 00 :00 (two) Medical tablet times Branch daily for 7 days. ibuprofen Yes [id number] 600mg Take 1 Univers 600 mg 5-24 100 tablet by ity of tablet 00:00: mouth [place] 00 every 6 Medical (six) Branch hours as needed for Pain (scale 4-6). ibuprofen Yes [id number] 600mg Take 1 Univers 600 mg 5-24 100 tablet by ity of tablet 00:00: mouth [place] 00 every 6 Medical (six) Branch hours as needed for Pain (scale 4-6). ibuprofen Yes [id number] 600mg Take 1 Univers 600 mg 5-24 100 tablet by ity of tablet 00:00: mouth [place] 00 every 6 Medical (six) Branch hours as needed for Pain (scale 4-6). ibuprofen 0 Yes [id number] 600mg Take 1 Univers 600 mg 5-24 100 tablet by ity of tablet 00:00: mouth [place] 00 every 6 Medical (six) Branch hours as needed for Pain (scale 4-6). ibuprofen 0 2021- No [id number] 600mg Take 1 Univers 600 mg 5-24 09-21 100 tablet by ity of tablet 00:00: 00:00 mouth [place] 00 :00 every 6 Medical (six) Branch hours as needed for Pain (scale 4-6). guaiFENesin 2020-10 Yes [id number] 400mg Take 1 Univers 400 mg 2-06 tablet by ity of tablet 00:00: mouth [place] 00 every 4 Medical (four) Branch hours as needed for Cough. ondansetron 2020-10 Yes [id number] 4mg Take 1 Univers 4 mg 2-06 tablet by ity of disintegrat 00:00: mouth [place] ing tablet 00 every 8 Medica l (eight) Branch hours as needed for Nausea and Vomiting (N/V). albuterol 2020-10 Yes [id number] 2{puff} Inhale 2 Univers 90 2-06 Puffs ity of mcg/actuati 00:00: every 6 [place] on inhaler 00 (six) Medical hours as Branch needed for Wheezing or Shortness of Breath. budesonide- 2020-10 Yes [id number] 2{puff} Inhale 2 Univers formoteroL 2-06 Puffs 2 ity of (SYMBICORT) 00:00: (two) [place] 160-4.5 00 times Medical mcg/actuati daily. Branch on inhaler guaiFENesin 2020-10 Yes [id number] 400mg Take 1 Univers 400 mg 2-06 tablet by ity of tablet 00:00: mouth [place] 00 every 4 Medical (four) Branch hours as needed for Cough. ondansetron 2020-10 Yes [id number] 4mg Take 1 Univers 4 mg 2-06 tablet by ity of disintegrat 00:00: mouth [place] ing tablet 00 every 8 Medica l (eight) Branch hours as needed for Nausea and Vomiting (N/V). albuterol 2020-10 Yes [id number] 2{puff} Inhale 2 Univers 90 2-06 Puffs ity of mcg/actuati 00:00: every 6 [place] on inhaler 00 (six) Medical hours as Branch needed for Wheezing or Shortness of Breath. budesonide- 2020-10 Yes [id number] 2{puff} Inhale 2 Univers formoteroL 2-06 Puffs 2 ity of (SYMBICORT) 00:00: (two) [place] 160-4.5 00 times Medical mcg/actuati daily. Branch on inhaler ondansetron 2020-10 Yes [id number] 4mg Take 1 Univers 4 mg 2-06 tablet by ity of disintegrat 00:00: mouth [place] ing tablet 00 every 8 Medica l (eight) Branch hours as needed for Nausea and Vomiting (N/V). albuterol 2020-10 Yes [id number] 2{puff} Inhale 2 Univers 90 2-06 Puffs ity of mcg/actuati 00:00: every 6 [place] on inhaler 00 (six) Medical hours as Branch needed for Wheezing or Shortness of Breath. budesonide- 2020-10 Yes [id number] 2{puff} Inhale 2 Univers formoteroL 2-06 Puffs 2 ity of (SYMBICORT) 00:00: (two) [place] 160-4.5 00 times Medical mcg/actuati daily. Branch on inhaler ondansetron 2020-10 Yes [id number] 4mg Take 1 [facility] 4 mg 2-06 tablet by ity of disintegrat 00:00: mouth [place] ing tablet 00 every 8 Medica l (eight) Branch hours as needed for Nausea and Vomiting (N/V). albuterol 2020-10 Yes [id number] 2{puff} Inhale 2 [facility] 90 2-06 Puffs ity of mcg/actuati 00:00: every 6 [place] on inhaler 00 (six) Medical hours as Branch needed for Wheezing or Shortness of Breath. budesonide- 2020-10 Yes [id number] 2{puff} Inhale 2 [facility] formoteroL 2-06 Puffs 2 ity of (SYMBICORT) 00:00: (two) [place] 160-4.5 00 times Medical mcg/actuati daily. Branch on inhaler ondansetron 2020-10 Yes [id number] 4mg Take 1 [facility] 4 mg 2-06 tablet by ity of disintegrat 00:00: mouth [place] ing tablet 00 every 8 Medica l (eight) Branch hours as needed for Nausea and Vomiting (N/V). albuterol 2020-10 Yes [id number] 2{puff} Inhale 2 [facility] 90 2-06 Puffs ity of mcg/actuati 00:00: every 6 [place] on inhaler 00 (six) Medical hours as Branch needed for Wheezing or Shortness of Breath. budesonide- 2020-10 Yes [id number] 2{puff} Inhale 2 [facility] formoteroL 2-06 Puffs 2 ity of (SYMBICORT) 00:00: (two) [place] 160-4.5 00 times Medical mcg/actuati daily. Branch on inhaler ondansetron 2020-10 Yes [id number] 4mg Take 1 [facility] 4 mg 2-06 tablet by ity of disintegrat 00:00: mouth [place] ing tablet 00 every 8 Medica l (eight) Branch hours as needed for Nausea and Vomiting (N/V). albuterol 2020-10 Yes [id number] 2{puff} Inhale 2 [facility] 90 2-06 Puffs ity of mcg/actuati 00:00: every 6 [place] on inhaler 00 (six) Medical hours as Branch needed for Wheezing or Shortness of Breath. budesonide- 2020-10 Yes [id number] 2{puff} Inhale 2 [facility] formoteroL 2-06 Puffs 2 ity of (SYMBICORT) 00:00: (two) [place] 160-4.5 00 times Medical mcg/actuati daily. Branch on inhaler ondansetron 2020-10 Yes [id number] 4mg Take 1 [facility] 4 mg 2-06 tablet by ity of disintegrat 00:00: mouth [place] ing tablet 00 every 8 Medica l (eight) Branch hours as needed for Nausea and Vomiting (N/V). albuterol 2020-10 Yes [id number] 2{puff} Inhale 2 [facility] 90 2-06 Puffs ity of mcg/actuati 00:00: every 6 [place] on inhaler 00 (six) Medical hours as Branch needed for Wheezing or Shortness of Breath. budesonide- 2020-10 Yes [id number] 2{puff} Inhale 2 [facility] formoteroL 2-06 Puffs 2 ity of (SYMBICORT) 00:00: (two) [place] 160-4.5 00 times Medical mcg/actuati daily. Branch on inhaler ondansetron 2020-10 Yes [id number] 4mg Take 1 [facility] 4 mg 2-06 tablet by ity of disintegrat 00:00: mouth [place] ing tablet 00 every 8 Medica l (eight) Branch hours as needed for Nausea and Vomiting (N/V). albuterol 2020-10 Yes [id number] 2{puff} Inhale 2 [facility] 90 2-06 Puffs ity of mcg/actuati 00:00: every 6 [place] on inhaler 00 (six) Medical hours as Branch needed for Wheezing or Shortness of Breath. budesonide- 2020-10 Yes [id number] 2{puff} Inhale 2 [facility] formoteroL 2-06 Puffs 2 ity of (SYMBICORT) 00:00: (two) [place] 160-4.5 00 times Medical mcg/actuati daily. Branch on inhaler ondansetron 2020-10 Yes [id number] 4mg Take 1 [facility] 4 mg 2-06 tablet by ity of disintegrat 00:00: mouth [place] ing tablet 00 every 8 Medica l (eight) Branch hours as needed for Nausea and Vomiting (N/V). albuterol 2020-10 Yes [id number] 2{puff} Inhale 2 [facility] 90 2-06 Puffs ity of mcg/actuati 00:00: every 6 [place] on inhaler 00 (six) Medical hours as Branch needed for Wheezing or Shortness of Breath. budesonide- 2020-10 Yes [id number] 2{puff} Inhale 2 [facility] formoteroL 2-06 Puffs 2 ity of (SYMBICORT) 00:00: (two) [place] 160-4.5 00 times Medical mcg/actuati daily. Branch on inhaler ondansetron 2020-10 Yes [id number] 4mg Take 1 [facility] 4 mg 2-06 tablet by ity of disintegrat 00:00: mouth [place] ing tablet 00 every 8 Medica l (eight) Branch hours as needed for Nausea and Vomiting (N/V). albuterol 2020-10 Yes [id number] 2{puff} Inhale 2 [facility] 90 2-06 Puffs ity of mcg/actuati 00:00: every 6 [place] on inhaler 00 (six) Medical hours as Branch needed for Wheezing or Shortness of Breath. budesonide- 2020-10 Yes [id number] 2{puff} Inhale 2 [facility] formoteroL 2-06 Puffs 2 ity of (SYMBICORT) 00:00: (two) [place] 160-4.5 00 times Medical mcg/actuati daily. Branch on inhaler albuterol 2020-10 Yes [id number] 2{puff} Inhale 2 [facility] 90 2-06 Puffs ity of mcg/actuati 00:00: every 6 [place] on inhaler 00 (six) Medical hours as Branch needed for Wheezing or Shortness of Breath. budesonide- 2020-10 Yes [id number] 2{puff} Inhale 2 [facility] formoteroL 2-06 Puffs 2 ity of (SYMBICORT) 00:00: (two) [place] 160-4.5 00 times Medical mcg/actuati daily. Branch on inhaler albuterol 2020-10 Yes [id number] 2{puff} Inhale 2 [facility] 90 2-06 Puffs ity of mcg/actuati 00:00: every 6 [place] on inhaler 00 (six) Medical hours as Branch needed for Wheezing or Shortness of Breath. budesonide- 2020-10 Yes [id number] 2{puff} Inhale 2 [facility] formoteroL 2-06 Puffs 2 ity of (SYMBICORT) 00:00: (two) [place] 160-4.5 00 times Medical mcg/actuati daily. Branch on inhaler albuterol 2020-10 Yes [id number] 2{puff} Inhale 2 [facility] 90 2-06 Puffs ity of mcg/actuati 00:00: every 6 [place] on inhaler 00 (six) Medical hours as Branch needed for Wheezing or Shortness of Breath. budesonide- 2020-10 Yes [id number] 2{puff} Inhale 2 [facility] formoteroL 2-06 Puffs 2 ity of (SYMBICORT) 00:00: (two) [place] 160-4.5 00 times Medical mcg/actuati daily. Branch on inhaler albuterol 2020-10 Yes [id number] 2{puff} Inhale 2 [facility] 90 2-06 Puffs ity of mcg/actuati 00:00: every 6 [place] on inhaler 00 (six) Medical hours as Branch needed for Wheezing or Shortness of Breath. budesonide- 2020-10 Yes [id number] 2{puff} Inhale 2 [facility] formoteroL 2-06 Puffs 2 ity of (SYMBICORT) 00:00: (two) [place] 160-4.5 00 times Medical mcg/actuati daily. Branch on inhaler albuterol 2020-10 Yes [id number] 2{puff} Inhale 2 [facility] 90 2-06 Puffs ity of mcg/actuati 00:00: every 6 [place] on inhaler 00 (six) Medical hours as Branch needed for Wheezing or Shortness of Breath. budesonide- 2020-10 Yes [id number] 2{puff} Inhale 2 [facility] formoteroL 2-06 Puffs 2 ity of (SYMBICORT) 00:00: (two) [place] 160-4.5 00 times Medical mcg/actuati daily. Branch on inhaler albuterol 2020-10 Yes [id number] 2{puff} Inhale 2 [facility] 90 2-06 Puffs ity of mcg/actuati 00:00: every 6 [place] on inhaler 00 (six) Medical hours as Branch needed for Wheezing or Shortness of Breath. budesonide- 2020-10 Yes [id number] 2{puff} Inhale 2 [facility] formoteroL 2-06 Puffs 2 ity of (SYMBICORT) 00:00: (two) [place] 160-4.5 00 times Medical mcg/actuati daily. Branch on inhaler albuterol 2020-10 Yes [id number] 2{puff} Inhale 2 [facility] 90 2-06 Puffs ity of mcg/actuati 00:00: every 6 [place] on inhaler 00 (six) Medical hours as Branch needed for Wheezing or Shortness of Breath. budesonide- 2020-10 Yes [id number] 2{puff} Inhale 2 [facility] formoteroL 2-06 Puffs 2 ity of (SYMBICORT) 00:00: (two) [place] 160-4.5 00 times Medical mcg/actuati daily. Branch on inhaler albuterol 2020-10 Yes [id number] 2{puff} Inhale 2 [facility] 90 2-06 Puffs ity of mcg/actuati 00:00: every 6 [place] on inhaler 00 (six) Medical hours as Branch needed for Wheezing or Shortness of Breath. budesonide- 2020-10 Yes [id number] 2{puff} Inhale 2 [facility] formoteroL 2-06 Puffs 2 ity of (SYMBICORT) 00:00: (two) [place] 160-4.5 00 times Medical mcg/actuati daily. Branch on inhaler albuterol 2020-10 Yes [id number] 2{puff} Inhale 2 [facility] 90 2-06 Puffs ity of mcg/actuati 00:00: every 6 [place] on inhaler 00 (six) Medical hours as Branch needed for Wheezing or Shortness of Breath. budesonide- 2020-10 Yes [id number] 2{puff} Inhale 2 [facility] formoteroL 2-06 Puffs 2 ity of (SYMBICORT) 00:00: (two) [place] 160-4.5 00 times Medical mcg/actuati daily. Branch on inhaler albuterol 2020-10 Yes [id number] 2{puff} Inhale 2 [facility] 90 2-06 Puffs ity of mcg/actuati 00:00: every 6 [place] on inhaler 00 (six) Medical hours as Branch needed for Wheezing or Shortness of Breath. budesonide- 2020-10 Yes [id number] 2{puff} Inhale 2 [facility] formoteroL 2-06 Puffs 2 ity of (SYMBICORT) 00:00: (two) [place] 160-4.5 00 times Medical mcg/actuati daily. Branch on inhaler albuterol 2020-10 Yes [id number] 2{puff} Inhale 2 [facility] 90 2-06 Puffs ity of mcg/actuati 00:00: every 6 [place] on inhaler 00 (six) Medical hours as Branch needed for Wheezing or Shortness of Breath. budesonide- 2020-10 Yes [id number] 2{puff} Inhale 2 [facility] formoteroL 2-06 Puffs 2 ity of (SYMBICORT) 00:00: (two) [place] 160-4.5 00 times Medical mcg/actuati daily. Branch on inhaler albuterol 2020-10 Yes [id number] 2{puff} Inhale 2 [facility] 90 2-06 Puffs ity of mcg/actuati 00:00: every 6 [place] on inhaler 00 (six) Medical hours as Branch needed for Wheezing or Shortness of Breath. budesonide- 2020-10 Yes [id number] 2{puff} Inhale 2 [facility] formoteroL 2-06 Puffs 2 ity of (SYMBICORT) 00:00: (two) [place] 160-4.5 00 times Medical mcg/actuati daily. Branch on inhaler albuterol 2020-10 Yes [id number] 2{puff} Inhale 2 [facility] 90 2-06 Puffs ity of mcg/actuati 00:00: every 6 [place] on inhaler 00 (six) Medical hours as Branch needed for Wheezing or Shortness of Breath. budesonide- 2020-10 Yes [id number] 2{puff} Inhale 2 [facility] formoteroL 2-06 Puffs 2 ity of (SYMBICORT) 00:00: (two) [place] 160-4.5 00 times Medical mcg/actuati daily. Branch on inhaler albuterol 2020-10 Yes [id number] 2{puff} Inhale 2 [facility] 90 2-06 Puffs ity of mcg/actuati 00:00: every 6 [place] on inhaler 00 (six) Medical hours as Branch needed for Wheezing or Shortness of Breath. budesonide- 2020-10 Yes [id number] 2{puff} Inhale 2 [facility] formoteroL 2-06 Puffs 2 ity of (SYMBICORT) 00:00: (two) [place] 160-4.5 00 times Medical mcg/actuati daily. Branch on inhaler benzonatate 2020-10 Yes [id number] 200mg Take 2 [facility] 100 mg 2-06 capsules ity of capsule 00:00: [place] mouth 2 [place] 00 (two) Medical times Branch daily as needed for Cough. guaiFENesin 2020-10 Yes [id number] 400mg Take 1 [facility] 400 mg 2-06 tablet by ity of tablet 00:00: mouth [place] 00 every 4 Medical (four) Branch hours as needed for Cough. ondansetron 2020-10 Yes [id number] 4mg Take 1 [facility] 4 mg 2-06 tablet by ity of disintegrat 00:00: mouth [place] ing tablet 00 every 8 Medica l (eight) Branch hours as needed for Nausea and Vomiting (N/V). albuterol 2020-10 Yes [id number] 2{puff} Inhale 2 [facility] 90 2-06 Puffs ity of mcg/actuati 00:00: every 6 [place] on inhaler 00 (six) Medical hours as Branch needed for Wheezing or Shortness of Breath. budesonide- 2020-10 Yes [id number] 2{puff} Inhale 2 [facility] formoteroL 2-06 Puffs 2 ity of (SYMBICORT) 00:00: (two) [place] 160-4.5 00 times Medical mcg/actuati daily. Branch on inhaler benzonatate 2020-10 Yes [id number] 200mg Take 2 [facility] 100 mg 2-06 capsules ity of capsule 00:00: by mouth 2 [place] 00 (two) Medical times Branch daily as needed for Cough. guaiFENesin 2020-10 Yes [id number] 400mg Take 1 [facility] 400 mg 2-06 tablet by ity of tablet 00:00: mouth [place] 00 every 4 Medical (four) Branch hours as needed for Cough. ondansetron 2020-10 Yes [id number] 4mg Take 1 [facility] 4 mg 2-06 tablet by ity of disintegrat 00:00: mouth [place] ing tablet 00 every 8 Medica l (eight) Branch hours as needed for Nausea and Vomiting (N/V). albuterol 2020-10 Yes [id number] 2{puff} Inhale 2 [facility] 90 2-06 Puffs ity of mcg/actuati 00:00: every 6 [place] on inhaler 00 (six) Medical hours as Branch needed for Wheezing or Shortness of Breath. budesonide- 2020-10 Yes [id number] 2{puff} Inhale 2 [facility] formoteroL 2-06 Puffs 2 ity of (SYMBICORT) 00:00: (two) [place] 160-4.5 00 times Medical mcg/actuati daily. Branch on inhaler benzonatate 2020-10 Yes [id number] 200mg Take 2 [facility] 100 mg 2-06 capsules ity of capsule 00:00: by mouth 2 [place] 00 (two) Medical times Branch daily as needed for Cough. guaiFENesin 2020-10 Yes [id number] 400mg Take 1 [facility] 400 mg 2-06 tablet by ity of tablet 00:00: mouth [place] 00 every 4 Medical (four) Branch hours as needed for Cough. ondansetron 2020-10 Yes [id number] 4mg Take 1 [facility] 4 mg 2-06 tablet by ity of disintegrat 00:00: mouth [place] ing tablet 00 every 8 Medica l (eight) Branch hours as needed for Nausea and Vomiting (N/V). albuterol 2020-10 Yes [id number] 2{puff} Inhale 2 [facility] 90 2-06 Puffs ity of mcg/actuati 00:00: every 6 [place] on inhaler 00 (six) Medical hours as Branch needed for Wheezing or Shortness of Breath. budesonide- 2020-10 Yes [id number] 2{puff} Inhale 2 [facility] formoteroL 2-06 Puffs 2 ity of (SYMBICORT) 00:00: (two) [place] 160-4.5 00 times Medical mcg/actuati daily. Branch on inhaler benzonatate 2020-10 Yes [id number] 200mg Take 2 [facility] 100 mg 2-06 capsules ity of capsule 00:00: by mouth 2 [place] 00 (two) Medical times Branch daily as needed for Cough. guaiFENesin 2020-10 Yes [id number] 400mg Take 1 [facility] 400 mg 2-06 tablet by ity of tablet 00:00: mouth [place] 00 every 4 Medical (four) Branch hours as needed for Cough. ondansetron 2020-10 Yes [id number] 4mg Take 1 [facility] 4 mg 2-06 tablet by ity of disintegrat 00:00: mouth [place] ing tablet 00 every 8 Medica l (eight) Branch hours as needed for Nausea and Vomiting (N/V). albuterol 2020-10 Yes [id number] 2{puff} Inhale 2 [facility] 90 2-06 Puffs ity of mcg/actuati 00:00: every 6 [place] on inhaler 00 (six) Medical hours as Branch needed for Wheezing or Shortness of Breath. budesonide- 2020-10 Yes [id number] 2{puff} Inhale 2 [facility] formoteroL 2-06 Puffs 2 ity of (SYMBICORT) 00:00: (two) [place] 160-4.5 00 times Medical mcg/actuati daily. Branch on inhaler ondansetron 2020-10- No [id number] 4mg Take 1 [facility] 4 mg 2-06 04-28 tablet by ity of disintegrat 00:00: 00:00 [place] ing tablet 00 :00 every 8 Medica l (eight) Branch hours as needed for Nausea and Vomiting (N/V). ondansetron 2020-10- No [id number] 4mg Take 1 [facility] 4 mg 2-06 04-28 tablet by ity of disintegrat 00:00: 00:00 [place] ing tablet 00 :00 every 8 Medica l (eight) Branch hours as needed for Nausea and Vomiting (N/V). ondansetron 2020-10- No [id number] 4mg Take 1 [facility] 4 mg 12-02 tablet by ity of disintegrat 00:00: 00:00 [place] ing tablet 00 :00 every 8 Medica l (eight) Branch hours as needed for Nausea and Vomiting (N/V). guaiFENesin 2020-10- No [id number] 400mg Take 1 [facility] 400 mg 12-02 tablet by ity of tablet 00:00: 00:00 mouth [place] 00 :00 every 4 Medical (four) Branch hours as needed for Cough. benzonatate 2020-10- No [id number] 200mg Take 2 [facility] 100 mg 12-02 capsules ity of capsule 00:00: 00:00 by mouth 2 [place] 00 :00 (two) Medical times Branch daily as needed for Cough. amoxicillin 2020-10- No [id number] 1{tbl} Take 1 [facility] -clavulanat 12-0214 tablet by it y of e 00:00: [...] 20:54 Starting [place] injection 00 :20 [facility] 08/04/20 at Branch 1514, Until Fri08/04/20 at 1554, Routine, Intra-op bupivacaine 2019-10 Yes PRN, Univer s -epinephrin 0 Starting ity of e-pf 20:12: Fri [place] (SENSORCAIN 00 08/04/20 at [place] [facility] E 1512, Branch W/EPINEPHRI Until NE) 0.25 Discontinu %-1:200,000 ed, injection Routine, Intra-op PHENYLephri 2019-10 2020- No ONCE INTRA Univers ne 1000 08-04 PROCEDURE, ity o f mcg/10 mL 20:05: 20:54 Starting [place] in 0.9% 00 :20 [facility] NaCl 08/04/20 at [place] syringe 1505, Until Fri08/04/20 at 1554, Routine, Intra-op ePHEDrine 2019-10 2020- No ONCE INTRA U nivers 25 mg/5 mL 08-04 PROCEDURE, it y of (5 mg/mL) 20:00: 20:54 Starting [place] syringe 00 :20 [facility] 08/04/20 at Branch 1500, Until Fri08/04/20 at 1554, Routine, Intra-op HYDROmorphO 2019-10 2020- No ONCE INTRA Univers ne 08-04 PROCEDURE, ity of (DILAUDID) 19:51: 20:54 Starting [place] injection 00 :20 [facility] 08/04/20 at Branch 1451, Until 08/04/20 at [...] Fri Medical 08/04/20 at Branch 1438, Until Fri08/04/20 at 1554, Routine, Intra-op lidocaine 2019-10 2020- No ONCE INTRA U nivers 1% 08-04 PROCEDURE, ity of (XYLOCAINE) 19:37: 20:54 Starting [place] 100 mg/10 00 :20 [facility] Medical mL (1 %) 08/04/20 at [facility] h injection 1437, Until Fri08/04/20 at 1554, Routine, Intra-op FENTanyl PF 2019-10 [...] 2020- No CONTINUOUS Un jac ringers IV 008-04 PRN, ity of infusion 18:28: 20:54 Starting [...] 1115, Routine, [facility] Pre-op gabapentin 2019-10- No [id number] 300mg Take 1 [facility] 300 mg 0- capsule by ity of capsule 00:00: 05:59 mouth 3 [place] 00 :00 (three) Medical times Branch daily for 60 days. gabapentin 2019-10- No [id number] 300mg Take 1 [facility] 300 mg 0- capsule by ity of capsule 00:00: 05:59 mouth 3 [place] 00 :00 (three) Medical times Branch daily for 60 days. gabapentin 2019-10- No [id number] 300mg Take 1 [facility] 300 mg 0- [...] Indication s: acute pain ondansetron 2019-10- No [id number] 4mg Take 1 [facility] 4 mg tablet 0-17 tablet by it y of 00:00: 04:59 [...] s: acute pain ondansetron 2019- 2020- No [id number] 4mg Take 1 [facility] 4 mg tablet 0-17 tablet by it y of 00:00: 04:59 mouth [place] 00 :00 every 8 Medical (eight) Branch hours as needed for Nausea and Vomiting (N/V) for up to 7 days. nystatin-tr 2020-0 Yes [id number] Apply to Univers iamcinolone 8-10 area(s) 3 ity of cream 00:00: (three) [place] 00 times Medical daily. Branch nystatin-tr 2020-0 Yes [id number] Apply to Univers iamcinolone 8-10 area(s) 3 ity of cream 00:00: (three) [place] 00 times Medical daily. Branch nystatin-tr 2020-0 Yes [id number] Apply to Univers iamcinolone 8-10 area(s) 3 ity of cream 00:00: (three) [place] 00 times Medical daily. Branch nystatin-tr 2020-0 Yes [id number] Apply to Univers iamcinolone 8-10 area(s) 3 ity of cream 00:00: (three) [place] 00 times Medical daily. Branch nystatin-tr 2020-0 Yes [id number] Apply to Univers iamcinolone 8-10 area(s) 3 ity of cream 00:00: (three) [place] 00 times Medical daily. Branch nystatin-tr 2020-0 Yes [id number] Apply to Univers iamcinolone 8-10 area(s) 3 ity of cream 00:00: (three) [place] 00 times Medical daily. Branch nystatin-tr 2020-0 Yes [id number] Apply to Univers iamcinolone 8-10 area(s) 3 ity of cream 00:00: (three) [place] 00 times Medical daily. Branch nystatin-tr 2020-0 Yes [id number] Apply to Univers iamcinolone 8-10 area(s) 3 ity of cream 00:00: (three) [place] 00 times Medical daily. Branch nystatin-tr 2020-0 Yes [id number] Apply to Univers iamcinolone 8-10 area(s) 3 ity of cream 00:00: (three) [place] 00 times Medical daily. Branch nystatin-tr 2020-0 Yes [id number] Apply to Univers iamcinolone 8-10 area(s) 3 ity of cream 00:00: (three) [place] 00 times Medical daily. Branch nystatin-tr 2020-0 Yes [id number] Apply to Univers iamcinolone 8-10 area(s) 3 ity of cream 00:00: (three) [place] 00 times Medical daily. Branch nystatin-tr 2020-0 Yes [id number] Apply to Univers iamcinolone 8-10 area(s) 3 ity of cream 00:00: (three) [place] 00 times Medical daily. Branch nystatin-tr 2020-0 Yes [id number] Apply to Univers iamcinolone 8-10 area(s) 3 ity of cream 00:00: (three) [place] 00 times Medical daily. Branch nystatin-tr 2020-0 Yes [id number] Apply to Univers iamcinolone 8-10 area(s) 3 ity of cream 00:00: (three) [place] 00 times Medical daily. Branch nystatin-tr 2020-0 Yes [id number] Apply to Univers iamcinolone 8-10 area(s) 3 ity of cream 00:00: (three) [place] 00 times Medical daily. Branch nystatin-tr 2020-0 Yes [id number] Apply to Univers iamcinolone 8-10 area(s) 3 ity of cream 00:00: (three) [place] 00 times Medical daily. Branch nystatin-tr 2020-0 Yes [id number] Apply to Univers iamcinolone 8-10 area(s) 3 ity of cream 00:00: (three) [place] 00 times Medical daily. Branch nystatin-tr 2020-0 Yes [id number] Apply to Univers iamcinolone 8-10 area(s) 3 ity of cream 00:00: (three) [place] 00 times Medical daily. Branch nystatin-tr 2020-0 Yes [id number] Apply to Univers iamcinolone 8-10 area(s) 3 ity of cream 00:00: (three) [place] 00 times Medical daily. Branch nystatin-tr 2020-0 Yes [id number] Apply to Univers iamcinolone 8-10 area(s) 3 ity of cream 00:00: (three) [place] 00 times Medical daily. Branch nystatin-tr 2020-0 Yes [id number] Apply to Univers iamcinolone 8-10 area(s) 3 ity of cream 00:00: (three) [place] 00 times Medical daily. Branch nystatin-tr 2020-0 Yes [id number] Apply to Univers iamcinolone 8-10 area(s) 3 ity of cream 00:00: (three) [place] 00 times Medical daily. Branch nystatin-tr 2020-0 Yes [id number] Apply to Univers iamcinolone 8-10 area(s) 3 ity of cream 00:00: (three) [place] 00 times Medical daily. Branch nystatin-tr 2020-0 Yes [id number] Apply to Univers iamcinolone 8-10 area(s) 3 ity of cream 00:00: (three) [place] 00 times Medical daily. Branch nystatin-tr 2020-0 Yes [id number] Apply to Univers iamcinolone 8-10 area(s) 3 ity of cream 00:00: (three) [place] 00 times Medical daily. Branch nystatin-tr 2020-0 Yes [id number] Apply to Univers iamcinolone 8-10 area(s) 3 ity of cream 00:00: (three) [place] 00 times Medical daily. Branch nystatin-tr 2020-0 Yes [id number] Apply to Univers iamcinolone 8-10 area(s) 3 ity of cream 00:00: (three) [place] 00 times Medical daily. Branch nystatin-tr 2020-0 Yes [id number] Apply to Univers iamcinolone 8-10 area(s) 3 ity of cream 00:00: (three) [place] 00 times Medical daily. Branch nystatin-tr 2020-0 Yes [id number] Apply to Univers iamcinolone 8-10 area(s) 3 ity of cream 00:00: (three) [place] 00 times Medical daily. Branch nystatin-tr 2020-0 Yes [id number] Apply to Univers iamcinolone 8-10 area(s) 3 ity of cream 00:00: (three) [place] 00 times Medical daily. Branch nystatin-tr 2020-0 2022- No [id number] Apply to Univers iamcinolone 8-10 09-21 area(s) 3 it y of cream 00:00: 00:00 (three) [place] 00 :00 times Medical daily. Branch nystatin-tr 2020-0 2021- No [id number] Apply to [facility] 06-05 area(s) 3 it y of cream 00:00: 00:00 (three) [place] 00 :00 times Medical daily. Branch indomethaci 2020-0 Yes TK 1 C PO U nivers n 50 mg 5-06 Q 6 H PRN ity of capsule 00:00: [place] 00 Medical Branch indomethaci 2020-0 Yes TK 1 C PO U nivers n 50 mg 5-06 Q 6 H PRN ity of capsule 00:00: [place] 00 Medical Branch indomethaci 2020-0 Yes TK 1 C PO U nivers n 50 mg 5-06 Q 6 H PRN ity of capsule 00:00: [place] 00 Medical Branch indomethaci 2020-0 Yes TK 1 C PO U nivers n 50 mg 5-06 Q 6 H PRN ity of capsule 00:00: [place] 00 Medical Branch indomethaci 2020-0 Yes TK 1 C PO U nivers n 50 mg 5-06 Q 6 H PRN ity of capsule 00:00: [place] 00 Medical Branch indomethaci 2020-0 Yes TK 1 C PO U nivers n 50 mg 5-06 Q 6 H PRN ity of capsule 00:00: [place] 00 Medical Branch indomethaci 2020-0 Yes TK 1 C PO U nivers n 50 mg 5-06 Q 6 H PRN ity of capsule 00:00: [place] 00 Medical Branch indomethaci 2020-0 2020- No TK 1 C PO Univers n 50 mg 5-06 08-10 Q 6 H PRN ity of capsule 00:00: 00:00 [place] 00 :00 Medical Branch indomethaci 2020-0 2020- No TK 1 C PO Univers n 50 mg 5-06 08-10 Q 6 H PRN ity of capsule 00:00: 00:00 [place] 00 :00 Medical Branch indomethaci 2020-0 2020- No TK 1 C PO Univers n 50 mg 5-06 08-10 Q 6 H PRN ity of capsule 00:00: 00:00 [place] 00 :00 Medical Branch PROAIR HFA 2020-0 Yes Univers 90 4-09 ity of mcg/actuati 00:00: [place] on inhaler 00 Medical Branch PROAIR HFA 2020-0 Yes Univers 90 4-09 ity of mcg/actuati 00:00: [place] on inhaler 00 Medical Branch PROAIR HFA [...] [place] on inhaler 00 :00 Medical Branch SYMBICORT 2020-0 2021- No Univers 160-4.5 4- 12-06 ity of mcg/actuati 00:00: 00:00 [place] [...] TK 1 T PO Univers -clavulanat 2-10 12- BID ity of e 875-125 00:00: 00:00 [place] mg per 00 :00 Medical tablet Branch amoxicillin 2020-0 2021- No TK 1 T PO Univers -clavulanat 2-10 10-01 BID ity of e 875-125 00:00: 00:00 [place] mg per 00 :00 Medical tablet Branch norethindro 2020-0 Yes [place] [facility] ne-ethinyl 1-30 ity of estradiol 00:00: [place] 1-20 mg-mcg 00 Medical per tablet Branch norethindro 2020-0 Yes [place] ne-ethinyl 1-30 ity of estradiol 00:00: [place] 1-20 mg-mcg 00 Medical per tablet Branch norethindro 2020-0 Yes [place] ne-ethinyl 1-30 ity of estradiol 00:00: [place] 1-20 mg-mcg 00 Medical per tablet Branch norethindro 2020-0 Yes [place] ne-ethinyl 1-30 ity of estradiol 00:00: [place] 1-20 mg-mcg 00 [facility] per tablet Branch norethindro 2020-0 Yes [facility] ne-ethinyl 1-30 ity of estradiol 00:00: [place] 1-20 mg-mcg 00 [facility] per tablet Branch norethindro 2020-0 Yes [facility] ne-ethinyl 1-30 ity of estradiol 00:00: [place] 1-20 mg-mcg 00 Medical per tablet Branch norethindro 2020-0 Yes [facility] ne-ethinyl 1-30 ity of estradiol 00:00: [place] 1-20 mg-mcg 00 Medical per tablet Branch norethindro 2020-0 Yes Shwetha s ne-ethinyl 1-30 ity of estradiol 00:00: [place] 1-20 mg-mcg 00 Medical per tablet Branch norethindro 2020-0 Yes Edytaer s ne-ethinyl 1-30 ity of estradiol 00:00: [place] 1-20 mg-mcg 00 Medical per tablet Branch norethindro 2020-0 Yes Edytaer s ne-ethinyl 1-30 ity of estradiol 00:00: [place] 1-20 mg-mcg 00 Medical per tablet Branch norethindro 2020-0 Yes Edytaer s ne-ethinyl 1-30 ity of estradiol 00:00: [place] 1-20 mg-mcg 00 Medical per tablet Branch norethindro 2020-0 Yes Edytaer s ne-ethinyl 1-30 ity of estradiol 00:00: [place] 1-20 mg-mcg 00 Medical per tablet Branch norethindro 2020-0 Yes Shwetha s ne-ethinyl 1-30 ity of estradiol 00:00: [place] 1-20 mg-mcg 00 Medical per tablet Branch norethindro 2020-0 Yes Shwetha s ne-ethinyl 1-30 ity of estradiol 00:00: [place] 1-20 mg-mcg 00 Medical per tablet Branch norethindro 2020-0 Yes Shwetha s ne-ethinyl 1-30 ity of estradiol 00:00: [place] 1-20 mg-mcg 00 Medical per tablet Branch norethindro 2020-0 Yes Shwetha s ne-ethinyl 1-30 ity of estradiol 00:00: [place] 1-20 mg-mcg 00 Medical per tablet Branch norethindro 2020-0 Yes Shewtha s ne-ethinyl 1-30 ity of estradiol 00:00: [place] 1-20 mg-mcg 00 Medical per tablet Branch norethindro 2020-0 Yes Shwetha s ne-ethinyl 1-30 ity of estradiol 00:00: [place] 1-20 mg-mcg 00 Medical per tablet Branch norethindro 2020-0 Yes Edytaer s ne-ethinyl 1-30 ity of estradiol 00:00: [place] 1-20 mg-mcg 00 Medical per tablet Branch norethindro 2020-0 Yes Shwetha s ne-ethinyl 1-30 ity of estradiol 00:00: [place] 1-20 mg-mcg 00 Medical per tablet Branch norethindro 2020-0 Yes Shwetha s ne-ethinyl 1-30 ity of estradiol 00:00: [place] 1-20 mg-mcg 00 Medical per tablet Branch norethindro 2020-0 Yes Shwetha s ne-ethinyl 1-30 ity of estradiol 00:00: [place] 1-20 mg-mcg 00 Medical per tablet Branch norethindro 2020-0 Yes Shwetha s ne-ethinyl 1-30 ity of estradiol 00:00: [place] 1-20 mg-mcg 00 Medical per tablet Branch norethindro 2020-0 Yes Shwetha s ne-ethinyl 1-30 ity of estradiol 00:00: [place] 1-20 mg-mcg 00 Medical per tablet Branch norethindro 2020-0 Yes Shwetha s ne-ethinyl 1-30 ity of estradiol 00:00: [place] 1-20 mg-mcg 00 Medical per tablet Branch norethindro 2020-0 Yes Shwetha hanson ne-ethinyl 1-30 ity of estradiol 00:00: [place] 1-20 mg-mcg 00 Medical per tablet Branch norethindro 2020-0 Yes Shwetha s ne-ethinyl 1-30 ity of estradiol 00:00: [place] 1-20 mg-mcg 00 Medical per tablet Branch norethindro 2020-0 Yes Shwetha hanson ne-ethinyl 1-30 ity of estradiol 00:00: [place] 1-20 mg-mcg 00 Medical per tablet Branch norethindro 2020-0 Yes Shwetha hanson ne-ethinyl 1-30 ity of estradiol 00:00: [place] 1-20 mg-mcg 00 Medical per tablet Branch norethindro 2020-0 Yes Shwetha s ne-ethinyl 1-30 ity of estradiol 00:00: [place] 1-20 mg-mcg 00 Medical per tablet Branch norethindro 2020-0 Yes Shwetha hanson ne-ethinyl 1-30 ity of estradiol 00:00: [place] 1-20 mg-mcg 00 Medical per tablet Branch norethindro 2020-0 Yes Shwetha s ne-ethinyl 1-30 ity of estradiol 00:00: [place] 1-20 mg-mcg 00 Medical per tablet Branch norethindro 2020-0 Yes Shwetha hanson ne-ethinyl 1-30 ity of estradiol 00:00: [place] 1-20 mg-mcg 00 Medical per tablet Branch norethindro 2020-0 Yes Shwetha hanson ne-ethinyl 1-30 ity of estradiol 00:00: [place] 1-20 mg-mcg 00 Medical per tablet Branch norethindro 2020-0 Yes Shwetha hanson ne-ethinyl 1-30 ity of estradiol 00:00: [place] 1-20 mg-mcg 00 Medical per tablet Branch norethindro 2020-0 Yes Shwetha hanson ne-ethinyl 1-30 ity of estradiol 00:00: [place] 1-20 mg-mcg 00 Medical per tablet Branch norethindro 2020-0 Yes Shwetha hanson ne-ethinyl 1-30 ity of estradiol 00:00: [place] 1-20 mg-mcg 00 Medical per tablet Branch norethindro 2020-0 Yes Shwetha hanson ne-ethinyl 1-30 ity of estradiol 00:00: [place] 1-20 mg-mcg 00 Medical per tablet Branch norethindro 2020-0 Yes Shwetha hanson ne-ethinyl 1-30 ity of estradiol 00:00: [place] 1-20 mg-mcg 00 Medical per tablet Branch norethindro 2020-0 Yes Shwetha hanson ne-ethinyl 1-30 ity of estradiol 00:00: [place] 1-20 mg-mcg 00 Medical per tablet Branch norethindro 2020-0 Yes Shwetha hanson ne-ethinyl 1-30 ity of estradiol 00:00: [place] 1-20 mg-mcg 00 Medical per tablet Branch norethindro 2020-0 Yes Shwetha hanson ne-ethinyl 1-30 ity of estradiol 00:00: [place] 1-20 mg-mcg 00 Medical per tablet Branch norethindro 2020-0 Yes Shwetha hanson ne-ethinyl 1-30 ity of estradiol 00:00: [place] 1-20 mg-mcg 00 Medical per tablet Branch norethindro 2020-0 Yes Shwetha hanson ne-ethinyl 1-30 ity of estradiol 00:00: [place] 1-20 mg-mcg 00 Medical per tablet Branch norethindro 2020-0 Yes Shwetha hanson ne-ethinyl 1-30 ity of estradiol 00:00: [place] 1-20 mg-mcg 00 Medical per tablet Branch norethindro 2020-0 Yes Shwetha hanson ne-ethinyl 1-30 ity of estradiol 00:00: [place] 1-20 mg-mcg 00 Medical per tablet Branch norethindro 0 2021- No [facility]ive rs ne-ethinyl 11-25 ity of estradiol 00:00: 00:00 [place] 1-20 mg-mcg 00 :00 Medical per tablet Branch norethindro 2019-0 2021- No [facility]ive rs ne-ethinyl 11-25 ity of estradiol 00:00: 00:00 [place] 1-20 mg-mcg 00 :00 Medical per tablet Branch MY WAY 1.5 2020-0 Yes [facility] mg tablet 1-20 ity of 00:00: [place] [facility] MY WAY 1.5 2020-0 Yes Univers mg tablet 1-20 ity of 00:00: [place] [facility] [place] MY WAY 1.5 2020-0 Yes Univers mg tablet 1-20 ity of 00:00: [place] [facility] [place] MY WAY 1.5 2020-0 Yes Univers mg tablet 1-20 ity of 00:00: [place] [facility] MY WAY 1.5 2020-0 Yes Univers mg tablet 1-20 ity of 00:00: [place] [facility] MY WAY 1.5 2020-0 Yes Univers mg tablet 1-20 ity of 00:00: [place] [facility] MY WAY 1.5 2020-0 Yes Univers mg tablet 1-20 ity of 00:00: [place] [facility] [place] MY WAY 1.5 2020-0 Yes Univers mg tablet 1-20 ity of 00:00: [place] [facility] MY WAY 1.5 2020-0 Yes Univers mg tablet 1-20 ity of 00:00: [place] [facility] MY WAY 1.5 2020-0 Yes Univers mg tablet 1-20 ity of 00:00: [place] [facility] MY WAY 1.5 2020-0 Yes Univers mg tablet 1-20 ity of 00:00: [place] [facility] MY WAY 1.5 2020-0 Yes Univers mg tablet 1-20 ity of 00:00: [place] [facility] MY WAY 1.5 2020-0 Yes Univers mg tablet 1-20 ity of 00:00: [place] [facility] MY WAY 1.5 2020-0 Yes Univers mg tablet 1-20 ity of 00:00: [place] [facility] MY WAY 1.5 2020-0 Yes Univers mg tablet 1-20 ity of 00:00: Medical Branch MY WAY 1.5 2020-0 Yes Univers mg tablet 1-20 ity of 00:00: [place] [facility] MY WAY 1.5 2020-0 Yes Univers mg tablet 1-20 ity of 00:00: [place] [facility] MY WAY 1.5 2020-0 Yes Univers mg tablet 1-20 ity of 00:00: [place] [facility] MY WAY 1.5 2020-0 Yes Univers mg tablet 1-20 ity of 00:00: [place] [facility] MY WAY 1.5 2020-0 Yes Univers mg tablet 1-20 ity of 00:00: [place] [facility] MY WAY 1.5 2020-0 Yes Univers mg tablet 1-20 ity of 00:00: [place] [facility] MY WAY 1.5 2020-0 Yes Univers mg tablet 1-20 ity of 00:00: [place] [facility] MY WAY 1.5 2020-0 Yes Univers mg tablet 1-20 ity of 00:00: [place] [facility] MY WAY 1.5 2020-0 Yes Univers mg tablet 1-20 ity of 00:00: [place] [facility] MY WAY 1.5 2020-0 Yes Univers mg tablet 1-20 ity of 00:00: [place] [facility] MY WAY 1.5 2020-0 Yes Univers mg tablet 1-20 ity of 00:00: [place] [facility] MY WAY 1.5 2020-0 Yes Univers mg tablet 1-20 ity of 00:00: [place] [facility] MY WAY 1.5 2020-0 Yes Univers mg tablet 1-20 ity of 00:00: [place] [facility] MY WAY 1.5 2020-0 Yes Univers mg tablet 1-20 ity of 00:00: [place] [facility] MY WAY 1.5 2020-0 Yes Univers mg tablet 1-20 ity of 00:00: [place] [facility] MY WAY 1.5 2020-0 Yes Univers mg tablet 1-20 ity of 00:00: [place] [facility] MY WAY 1.5 2020-0 Yes Univers mg tablet 1-20 ity of 00:00: [place] [facility] MY WAY 1.5 2020-0 Yes Univers mg tablet 1-20 ity of 00:00: [place] [facility] MY WAY 1.5 2020-0 Yes Univers mg tablet 1-20 ity of 00:00: [place] [facility] MY WAY 1.5 2020-0 Yes Univers mg tablet 1-20 ity of 00:00: [place] [facility] MY WAY 1.5 2020-0 Yes Univers mg tablet 1-20 ity of 00:00: [place] [facility] MY WAY 1.5 2020-0 Yes Univers mg tablet 1-20 ity of 00:00: [place] [facility] MY WAY 1.5 2020-0 Yes Univers mg tablet 1-20 ity of 00:00: [place] [facility] MY WAY 1.5 2020-0 Yes Univers mg tablet 1-20 ity of 00:00: [place] [facility] MY WAY 1.5 2020-0 Yes Univers mg tablet 1-20 ity of 00:00: [place] [facility] MY WAY 1.5 2020-0 Yes Univers mg tablet 1-20 ity of 00:00: [place] [facility] MY WAY 1.5 2020-0 Yes Univers mg tablet 1-20 ity of 00:00: [place] [facility] MY WAY 1.5 2020-0 Yes Univers mg tablet 1-20 ity of 00:00: [place] [facility] MY WAY 1.5 2020-0 Yes Univers mg tablet 1-20 ity of 00:00: [place] [facility] MY WAY 1.5 2020-0 Yes Univers mg tablet 1-20 ity of 00:00: [place] [facility] MY WAY 1.5 2020-0 Yes Univers mg tablet 1-20 ity of 00:00: [place] [facility] MY WAY 1.5 2020-0 2022- No Univer s mg tablet -16 07- ity of 00:00: 00:00 [place] 00 :[address] [facility] [address] 1.5 2020-0 2022- No Univer s mg tablet -20 -21 ity of 00:00: 00:00 [place] 00 :00 Medical Branch escitalopra 2020-0 Yes [...] 00:00: [place] tablet 00 Medical Branch traZODONE 20190 Yes TAKE 1 Univer [...] 00 EVERYDAY Medical AT BEDTIME Branch traZODONE 20190 Yes TAKE 1 Univer [...] 5-09 TABLET BY ity of tablet 00:00: EVERYDAY Medical AT BEDTIME Branch traZODONE 2019-0 Yes TAKE 1 Univer s 50 mg 5-09 TABLET BY ity of tablet 00:00: EVERYDAY Medical AT BEDTIME Branch escitalopra 2019-0 Yes TAKE 1 Univ ers m oxalate 5-09 TABLET BY ity o f 10 mg 00:00: MOUTH [place] tablet 00 EVERY Medical MORNING Branch traZODONE 2019-0 Yes TAKE 1 Univer s 50 mg 5-09 TABLET BY ity of tablet 00:00: 00 EVERYDAY Medical AT BEDTIME Branch traZODONE 2019-0 Yes TAKE 1 Univer s 50 mg 5-09 TABLET BY ity of tablet 00:00: 00 EVERYDAY Medical AT BEDTIME Branch traZODONE 2019-0 Yes TAKE 1 Univer s 50 mg 5-09 TABLET BY ity of tablet 00:00: 00 EVERYDAY Medical AT BEDTIME Branch traZODONE [...] No TAKE 1 Uni vers m oxalate 03-04 TABLET BY ity of 10 mg 00:00: 00:00 MOUTH [place] tablet 00 :00 EVERY Medical MORNING Branch escitalopra 2021- No TAKE 1 Uni vers m oxalate 03-04 TABLET BY ity of 10 mg 00:00: 00:00 MOUTH [place] tablet 00 :00 EVERY Medical MORNING Branch No known No Univers medications ity of [facility] Immunizations Ordered Filled Date Status Comments Source Immunization Name Immunization Name HPV9 2023-02-21 Completed University of 00:00:00 [facility] HPV9 2023-02-21 Completed University of 00:00:00 [facility] HPV9 2023-02-21 Completed University of 00:00:00 [facility] HPV9 2023-02-21 Completed University of 00:00:00 [facility] HPV9 2023-02-21 Completed University of 00:00:00 [facility] HPV9 2023-02-21 Completed University of 00:00:00 [facility] HPV9 2023-02-21 Completed University of 00:00:00 [facility] HPV9 2023-02-21 Completed University of 00:00:00 [facility] HPV9 2023-02-21 Completed University of 00:00:00 [facility] HPV9 2023-02-21 Completed University of 00:00:00 [facility] HPV9 2023-02-21 Completed University of 00:00:00 [facility] HPV9 2023-02-21 Completed University of 00:00:00 [facility] TDAP 2017-10-16 Completed University of 00:00:00 [facility] Influenza Virus 2017-10-16 Completed Universit y of Vaccine Quad IM 3+ 00:00:00 [facility] Tdap 2017-10-16 Completed University of 00:00:00 [facility] Influenza Virus 2017-10-16 Completed Universit y of Vaccine Quad IM 3+ 00:00:00 [facility] TDAP 2017-10-16 Completed University of 00:00:00 [facility] Influenza Virus 2017-10-16 Completed Universit y of Vaccine Quad IM 3+ 00:00:00 [facility] TDAP 2017-10-16 Completed University of 00:00:00 [facility] Influenza Virus 2017-10-16 Completed Universit y of Vaccine Quad IM 3+ 00:00:00 [facility] TDAP 2017-10-16 Completed University of 00:00:00 [facility] Influenza Virus 2017-10-16 Completed Universit y of Vaccine Quad IM 3+ 00:00:00 [facility] TDAP 2017-10-16 Completed University of 00:00:00 [facility] Influenza Virus 2017-10-16 Completed Universit y of Vaccine Quad IM 3+ 00:00:00 [facility] TDAP 2017-10-16 Completed University of 00:00:00 [facility] Influenza Virus 2017-10-16 Completed Universit y of Vaccine Quad IM 3+ 00:00:00 [facility] Tdap 2017-10-16 Completed University of 00:00:00 [facility] Influenza Virus 2017-10-16 Completed Universit y of Vaccine Quad IM 3+ 00:00:00 [facility] TDAP 2017-10-16 Completed University of 00:00:00 [facility] Influenza Virus 2017-10-16 Completed Universit y of Vaccine Quad IM 3+ 00:00:00 [facility] TDAP 2017-10-16 Completed University of 00:00:00 [facility] Influenza Virus 2017-10-16 Completed Universit y of Vaccine Quad IM 3+ 00:00:00 [facility] TDAP 2017-10-16 Completed University of 00:00:00 [facility] Influenza Virus 2017-10-16 Completed Universit y of Vaccine Quad IM 3+ 00:00:00 [facility] TDAP 2017-10-16 Completed University of 00:00:00 [facility] Influenza Virus 2017-10-16 Completed Universit y of Vaccine Quad IM 3+ 00:00:00 [facility] TDAP 2017-10-16 Completed University of 00:00:00 [facility] Influenza Virus 2017-10-16 Completed Universit y of Vaccine Quad IM 3+ 00:00:00 [facility] TDAP 2017-10-16 Completed University of 00:00:00 [facility] Influenza Virus 2017-10-16 Completed Universit y of Vaccine Quad IM 3+ 00:00:00 [facility] TDAP 2017-10-16 Completed University of 00:00:00 [facility] Influenza Virus 2017-10-16 Completed Universit y of Vaccine Quad IM 3+ 00:00:00 [facility] TDAP 2017-10-16 Completed University of 00:00:00 [facility] Influenza Virus 2017-10-16 Completed Universit y of Vaccine Quad IM 3+ 00:00:00 [facility] Tdap 2017-10-16 Completed University of 00:00:00 [facility] Influenza Virus 2017-10-16 Completed Universit y of Vaccine Quad IM 3+ 00:00:00 [facility] TDAP 2017-10-16 Completed University of 00:00:00 [facility] Influenza Virus 2017-10-16 Completed Universit y of Vaccine Quad IM 3+ 00:00:00 [facility] TDAP 2017-10-16 Completed University of 00:00:00 [facility] Influenza Virus 2017-10-16 Completed Universit y of Vaccine Quad IM 3+ 00:00:00 [facility] TDAP 2017-10-16 Completed University of 00:00:00 [facility] Influenza Virus 2017-10-16 Completed Universit y of Vaccine Quad IM 3+ 00:00:00 [facility] TDAP 2017-10-16 Completed University of 00:00:00 [facility] Influenza Virus 2017-10-16 Completed Universit y of Vaccine Quad IM 3+ 00:00:00 [facility] TDAP 2017-10-16 Completed University of 00:00:00 [facility] Influenza Virus 2017-10-16 Completed Universit y of Vaccine Quad IM 3+ 00:00:00 [facility] TDAP 2017-10-16 Completed University of 00:00:00 [facility] Influenza Virus 2017-10-16 Completed Universit y of Vaccine Quad IM 3+ 00:00:00 [facility] Tdap 2017-10-16 Completed University of 00:00:00 [facility] Influenza Virus 2017-10-16 Completed Universit y of Vaccine Quad IM 3+ 00:00:00 [facility] TDAP 2017-10-16 Completed University of 00:00:00 [facility] Influenza Virus 2017-10-16 Completed Universit y of Vaccine Quad IM 3+ 00:00:00 [facility] TDAP 2017-10-16 Completed University of 00:00:00 [facility] Influenza Virus 2017-10-16 Completed Universit y of Vaccine Quad IM 3+ 00:00:00 [facility] Tdap 2017-10-16 Completed University of 00:00:00 [facility] Influenza Virus 2017-10-16 Completed Universit y of Vaccine Quad IM 3+ 00:00:00 [facility] Tdap 2017-10-16 Completed University of 00:00:00 [facility] Influenza Virus 2017-10-16 Completed Universit y of Vaccine Quad IM 3+ 00:00:00 [facility] Tdap 2017-10-16 Completed University of 00:00:00 [facility] Influenza Virus 2017-10-16 Completed Universit y of Vaccine Quad IM 3+ 00:00:00 [facility] Tdap 2017-10-16 Completed University of 00:00:00 [facility] Influenza Virus 2017-10-16 Completed Universit y of Vaccine Quad IM 3+ 00:00:00 [facility] Tdap 2017-10-16 Completed University of 00:00:00 [facility] Influenza Virus 2017-10-16 Completed Universit y of Vaccine Quad IM 3+ 00:00:00 [facility] TDAP 2017-10-16 Completed University of 00:00:00 [facility] Influenza Virus 2017-10-16 Completed Universit y of Vaccine Quad IM 3+ 00:00:00 [facility] TDAP 2017-10-16 Completed University of 00:00:00 [facility] Influenza Virus 2017-10-16 Completed Universit y of Vaccine Quad IM 3+ 00:00:00 [facility] TDAP 2017-10-16 Completed University of 00:00:00 [facility] Influenza Virus 2017-10-16 Completed Universit y of Vaccine Quad IM 3+ 00:00:00 [facility] TDAP 2017-10-16 Completed University of 00:00:00 [facility] Influenza Virus 2017-10-16 Completed Universit y of Vaccine Quad IM 3+ 00:00:00 [facility] TDAP 2017-10-16 Completed University of 00:00:00 [facility] Tdap 2017-10-16 Completed University of 00:00:00 [facility] Influenza Virus 2017-10-16 Completed Universit y of Vaccine Quad IM 3+ 00:00:00 [facility] Influenza Virus 2017-10-16 Completed Universit y of Vaccine Quad IM 3+ 00:00:00 [facility] TDAP 2017-10-16 Completed University of 00:00:00 [facility] Influenza Virus 2017-10-16 Completed Universit y of Vaccine Quad IM 3+ 00:00:00 [facility] TDAP 2017-10-16 Completed University of 00:00:00 [facility] Influenza Virus 2017-10-16 Completed Universit y of Vaccine Quad IM 3+ 00:00:00 [facility] TDAP 2017-10-16 Completed University of 00:00:00 [facility] Influenza Virus 2017-10-16 Completed Universit y of Vaccine Quad IM 3+ 00:00:00 [facility] TDAP 2017-10-16 Completed University of 00:00:00 [facility] Influenza Virus 2017-10-16 Completed Universit y of Vaccine Quad IM 3+ 00:00:00 [facility] TDAP 2017-10-16 Completed University of 00:00:00 [facility] Influenza Virus 2017-10-16 Completed Universit y of Vaccine Quad IM 3+ 00:00:00 [facility] Tdap 2017-10-16 Completed University of 00:00:00 [facility] Influenza Virus 2017-10-16 Completed Universit y of Vaccine Quad IM 3+ 00:00:00 [facility] TDAP 2017-10-16 Completed University of 00:00:00 [facility] Influenza Virus 2017-10-16 Completed Universit y of Vaccine Quad IM 3+ 00:00:00 [facility] TDAP 2017-10-16 Completed University of 00:00:00 [facility] Influenza Virus 2017-10-16 Completed Universit y of Vaccine Quad IM 3+ 00:00:00 [facility] TDAP 2017-10-16 Completed University of 00:00:00 [facility] Influenza Virus 2017-10-16 Completed Universit y of Vaccine Quad IM 3+ 00:00:00 [facility] TDAP 2017-10-16 Completed University of 00:00:00 [facility] Influenza Virus 2017-10-16 Completed Universit y of Vaccine Quad IM 3+ 00:00:00 [facility] TDAP 2017-10-16 Completed University of 00:00:00 [facility] Influenza Virus 2017-10-16 Completed Universit y of Vaccine Quad IM 3+ 00:00:00 [facility] TDAP 2017-10-16 Completed University of 00:00:00 [facility] Influenza Virus 2017-10-16 Completed Universit y of Vaccine Quad IM 3+ 00:00:00 [facility] TDAP 2017-10-16 Completed University of 00:00:00 [facility] Influenza Virus 2017-10-16 Completed Universit y of Vaccine Quad IM 3+ 00:00:00 [facility] TDAP 2017-10-16 Completed University of 00:00:00 [facility] Influenza Virus 2017-10-16 Completed Universit y of Vaccine Quad IM 3+ 00:00:00 [facility] TDAP 2017-10-16 Completed University of 00:00:00 [facility] Influenza Virus 2017-10-16 Completed Universit y of Vaccine Quad IM 3+ 00:00:00 [facility] Tdap 2017-10-16 Completed University of 00:00:00 [facility] Influenza Virus 2017-10-16 Completed Universit y of Vaccine Quad IM 3+ 00:00:00 [facility] TDAP 2017-10-16 Completed University of 00:00:00 [facility] Influenza Virus 2017-10-16 Completed Universit y of Vaccine Quad IM 3+ 00:00:00 [facility] TDAP 2017-10-16 Completed University of 00:00:00 [facility] Influenza Virus 2017-10-16 Completed Universit y of Vaccine Quad IM 3+ 00:00:00 [facility] TDAP 2017-10-16 Completed University of 00:00:00 [facility] Influenza Virus 2017-10-16 Completed Universit y of Vaccine Quad IM 3+ 00:00:00 [facility] TDAP 2017-10-16 Completed University of 00:00:00 [facility] Influenza Virus 2017-10-16 Completed Universit y of Vaccine Quad IM 3+ 00:00:00 [facility] TDAP 2017-10-16 Completed University of 00:00:00 [facility] Influenza Virus 2017-10-16 Completed Universit y of Vaccine Quad IM 3+ 00:00:00 [facility] TDAP 2017-10-16 Completed University of 00:00:00 [facility] Influenza Virus 2017-10-16 Completed Universit y of Vaccine Quad IM 3+ 00:00:00 [facility] TDAP 2017-10-16 Completed University of 00:00:00 [facility] Influenza Virus 2017-10-16 Completed Universit y of Vaccine Quad IM 3+ 00:00:00 [facility] Tdap 2017-10-16 Completed University of 00:00:00 [facility] Influenza Virus 2017-10-16 Completed Universit y of Vaccine Quad IM 3+ 00:00:00 [facility] TDAP 2017-10-16 Completed University of 00:00:00 [facility] Influenza Virus 2017-10-16 Completed Universit y of Vaccine Quad IM 3+ 00:00:00 [facility] TDAP 2017-10-16 Completed University of 00:00:00 [facility] Influenza Virus 2017-10-16 Completed Universit y of Vaccine Quad IM 3+ 00:00:00 [facility] TDAP 2017-10-16 Completed University of 00:00:00 [facility] Influenza Virus 2017-10-16 Completed Universit y of Vaccine Quad IM 3+ 00:00:00 [facility] TDAP 2017-10-16 Completed University of 00:00:00 [facility] Influenza Virus 2017-10-16 Completed Universit y of Vaccine Quad IM 3+ 00:00:00 [facility] Tdap 2017-10-16 Completed University of 00:00:00 [facility] TDAP 2017-10-16 Completed University of 00:00:00 [facility] Influenza Virus 2017-10-16 Completed Universit y of Vaccine Quad IM 3+ 00:00:00 [facility] Influenza Virus 2017-10-16 Completed Universit y of Vaccine Quad IM 3+ 00:00:00 [facility] TDAP 2017-10-16 Completed University of 00:00:00 [facility] Influenza Virus 2017-10-16 Completed Universit y of Vaccine Quad IM 3+ 00:00:00 [facility] TDAP 2017-10-16 Completed University of 00:00:00 [facility] Influenza Virus 2017-10-16 Completed Universit y of Vaccine Quad IM 3+ 00:00:00 [facility] TDAP 2016-01-18 Completed University of 00:00:00 [facility] Tdap 2016-01-18 Completed University of 00:00:00 [facility] TDAP 2016-01-18 Completed University of 00:00:00 [facility] TDAP 2016-01-18 Completed University of 00:00:00 [facility] TDAP 2016-01-18 Completed University of 00:00:00 [facility] TDAP 2016-01-18 Completed University of 00:00:00 [facility] TDAP 2016-01-18 Completed University of 00:00:00 [facility] Tdap 2016-01-18 Completed University of 00:00:00 [facility] TDAP 2016-01-18 Completed University of 00:00:00 [facility] TDAP 2016-01-18 Completed University of 00:00:00 [facility] TDAP 2016-01-18 Completed University of 00:00:00 [facility] TDAP 2016-01-18 Completed University of 00:00:00 [facility] TDAP 2016-01-18 Completed University of 00:00:00 [facility] TDAP 2016-01-18 Completed University of 00:00:00 [facility] TDAP 2016-01-18 Completed University of 00:00:00 [facility] Tdap 2016-01-18 Completed University of 00:00:00 [facility] TDAP 2016-01-18 Completed University of 00:00:00 [facility] TDAP 2016-01-18 Completed University of 00:00:00 [facility] TDAP 2016-01-18 Completed University of 00:00:00 [facility] TDAP 2016-01-18 Completed University of 00:00:00 [facility] TDAP 2016-01-18 Completed University of 00:00:00 [facility] TDAP 2016-01-18 Completed University of 00:00:00 [facility] TDAP 2016-01-18 Completed University of 00:00:00 [facility] Tdap 2016-01-18 Completed University of 00:00:00 [facility] TDAP 2016-01-18 Completed University of 00:00:00 [facility] TDAP 2016-01-18 Completed University of 00:00:00 [facility] Tdap 2016-01-18 Completed University of 00:00:00 [facility] Tdap 2016-01-18 Completed University of 00:00:00 [facility] Tdap 2016-01-18 Completed University of 00:00:00 [facility] Tdap 2016-01-18 Completed University of 00:00:00 [facility] Tdap 2016-01-18 Completed University of 00:00:00 [facility] TDAP 2016-01-18 Completed University of 00:00:00 [facility] TDAP 2016-01-18 Completed University of 00:00:00 [facility] TDAP 2016-01-18 Completed University of 00:00:00 [facility] TDAP 2016-01-18 Completed University of 00:00:00 [facility] Tdap 2016-01-18 Completed University of 00:00:00 [facility] TDAP 2016-01-18 Completed University of 00:00:00 [facility] TDAP 2016-01-18 Completed University of 00:00:00 [facility] TDAP 2016-01-18 Completed University of 00:00:00 [facility] TDAP 2016-01-18 Completed University of 00:00:00 [facility] TDAP 2016-01-18 Completed University of 00:00:00 [facility] Tdap 2016-01-18 Completed University of 00:00:00 [facility] TDAP 2016-01-18 Completed University of 00:00:00 [facility] TDAP 2016-01-18 Completed University of 00:00:00 [facility] TDAP 2016-01-18 Completed University of 00:00:00 [facility] TDAP 2016-01-18 Completed University of 00:00:00 [facility] TDAP 2016-01-18 Completed University of 00:00:00 [facility] TDAP 2016-01-18 Completed University of 00:00:00 [facility] TDAP 2016-01-18 Completed University of 00:00:00 [facility] TDAP 2016-01-18 Completed University of 00:00:00 [facility] TDAP 2016-01-18 Completed University of 00:00:00 [facility] Tdap 2016-01-18 Completed University of 00:00:00 [facility] TDAP 2016-01-18 Completed University of 00:00:00 [facility] TDAP 2016-01-18 Completed University of 00:00:00 [facility] TDAP 2016-01-18 Completed University of 00:00:00 [facility] TDAP 2016-01-18 Completed University of 00:00:00 [facility] TDAP 2016-01-18 Completed University of 00:00:00 [facility] TDAP 2016-01-18 Completed University of 00:00:00 [facility] TDAP 2016-01-18 Completed University of 00:00:00 [facility] Tdap 2016-01-18 Completed University of 00:00:00 [facility] TDAP 2016-01-18 Completed University of 00:00:00 [facility] TDAP 2016-01-18 Completed University of 00:00:00 [facility] TDAP 2016-01-18 Completed University of 00:00:00 [facility] TDAP 2016-01-18 Completed University of 00:00:00 [facility] TDAP 2016-01-18 Completed University of 00:00:00 [facility] Tdap 2016-01-18 Completed University of 00:00:00 [facility] TDAP 2016-01-18 Completed University of 00:00:00 [facility] TDAP 2016-01-18 Completed University of 00:00:00 [facility] TDAP 2016-01-18 Completed University of 00:00:00 [facility] TDAP 2014-05-18 Completed University of 00:00:00 [facility] Tdap 2014-05-18 Completed University of 00:00:00 [facility] TDAP 2014-05-18 Completed University of 00:00:00 [facility] TDAP 2014-05-18 Completed University of 00:00:00 [facility] TDAP 2014-05-18 Completed University of 00:00:00 [facility] TDAP 2014-05-18 Completed University of 00:00:00 [facility] Tdap 2014-05-18 Completed University of 00:00:00 [facility] TDAP 2014-05-18 Completed University of 00:00:00 [facility] TDAP 2014-05-18 Completed University of 00:00:00 [facility] TDAP 2014-05-18 Completed University of 00:00:00 [facility] TDAP 2014-05-18 Completed University of 00:00:00 [facility] TDAP 2014-05-18 Completed University of 00:00:00 [facility] TDAP 2014-05-18 Completed University of 00:00:00 [facility] TDAP 2014-05-18 Completed University of 00:00:00 [facility] TDAP 2014-05-18 Completed University of 00:00:00 [facility] Tdap 2014-05-18 Completed University of 00:00:00 [facility] TDAP 2014-05-18 Completed University of 00:00:00 [facility] TDAP 2014-05-18 Completed University of 00:00:00 [facility] TDAP 2014-05-18 Completed University of 00:00:00 [facility] TDAP 2014-05-18 Completed University of 00:00:00 [facility] TDAP 2014-05-18 Completed University of 00:00:00 [facility] TDAP 2014-05-18 Completed University of 00:00:00 [facility] TDAP 2014-05-18 Completed University of 00:00:00 [facility] Tdap 2014-05-18 Completed University of 00:00:00 [facility] TDAP 2014-05-18 Completed University of 00:00:00 [facility] TDAP 2014-05-18 Completed University of 00:00:00 [facility] Tdap 2014-05-18 Completed University of 00:00:00 [facility] Tdap 2014-05-18 Completed University of 00:00:00 [facility] Tdap 2014-05-18 Completed University of 00:00:00 [facility] Tdap 2014-05-18 Completed University of 00:00:00 [facility] Tdap 2014-05-18 Completed University of 00:00:00 [facility] Tdap 2014-05-18 Completed University of 00:00:00 [facility] TDAP 2014-05-18 Completed University of 00:00:00 [facility] TDAP 2014-05-18 Completed University of 00:00:00 [facility] TDAP 2014-05-18 Completed University of 00:00:00 [facility] TDAP 2014-05-18 Completed University of 00:00:00 [facility] Tdap 2014-05-18 Completed University of 00:00:00 [facility] TDAP 2014-05-18 Completed University of 00:00:00 [facility] TDAP 2014-05-18 Completed University of 00:00:00 [facility] TDAP 2014-05-18 Completed University of 00:00:00 [facility] TDAP 2014-05-18 Completed University of 00:00:00 [facility] Tdap 2014-05-18 Completed University of 00:00:00 [facility] TDAP 2014-05-18 Completed University of 00:00:00 [facility] TDAP 2014-05-18 Completed University of 00:00:00 [facility] TDAP 2014-05-18 Completed University of 00:00:00 [facility] TDAP 2014-05-18 Completed University of 00:00:00 [facility] TDAP 2014-05-18 Completed University of 00:00:00 [facility] TDAP 2014-05-18 Completed University of 00:00:00 [facility] TDAP 2014-05-18 Completed University of 00:00:00 [facility] TDAP 2014-05-18 Completed University of 00:00:00 [facility] TDAP 2014-05-18 Completed University of 00:00:00 [facility] Tdap 2014-05-18 Completed University of 00:00:00 [facility] TDAP 2014-05-18 Completed University of 00:00:00 [facility] TDAP 2014-05-18 Completed University of 00:00:00 [facility] TDAP 2014-05-18 Completed University of 00:00:00 [facility] TDAP 2014-05-18 Completed University of 00:00:00 [facility] TDAP 2014-05-18 Completed University of 00:00:00 [facility] TDAP 2014-05-18 Completed University of 00:00:00 [facility] TDAP 2014-05-18 Completed University of 00:00:00 [facility] TDAP 2014-05-18 Completed University of 00:00:00 [facility] Tdap 2014-05-18 Completed University of 00:00:00 [facility] TDAP 2014-05-18 Completed [facility] of 00:00:00 [facility] TDAP 2014-05-18 Completed University of 00:00:00 [facility] TDAP 2014-05-18 Completed University of 00:00:00 [facility] TDAP 2014-05-18 Completed University of 00:00:00 [facility] TDAP 2014-05-18 Completed [facility] of 00:00:00 [facility] Tdap 2014-05-18 Completed University of 00:00:00 [facility] TDAP 2014-05-18 Completed [facility] of 00:00:00 [facility] TDAP 2014-05-18 Completed [facility] of 00:00:00 [facility] TDAP 2014-05-18 Completed University of 00:00:00 [facility] Pneumococcal 2008-05-11 Completed University o f Polysaccharide, 00:00:00 [facility] PPSV23 (PNEUMOVAX) [facility] Pneumococcal 2008-05-11 [...] [place] [facility] PPSV23 (PNEUMOVAX) [facility] Pneumococcal Unknown Completed University o f Polysaccharide, [place] [facility] PPSV23 (PNEUMOVAX) [facility] TDAP Unknown Completed [facility] TDAP Unknown Completed [facility] TDAP Unknown Completed [facility] Influenza Virus Unknown Completed Universit y of Vaccine Quad IM 3+ [facility] HPV9 Unknown Completed [facility] Pneumococcal Unknown Completed [facility] [place] [facility] PPSV23 (PNEUMOVAX) Branch TDAP Unknown Completed [facility] TDAP Unknown Completed [facility] TDAP Unknown Completed [facility] Influenza Virus Unknown Completed Universit y of Vaccine Quad IM 3+ [facility] Pneumococcal Unknown Com[facility] PPSV[facility] ([facility]UMOVAX[facility] TDAP Unknown Completed [facility] TDAP Unknown Completed [facility] TDAP Unknown Completed [facility] Influenza Virus Unknown Completed [facility]it y of Vaccine Quad IM 3+ [facility] Pneumococcal Unknown Completed [facility] PPSV23 (PNEUMOVAX[facility] Branch TDAP Unknown Completed [facility] TDAP Unknown Completed [facility] TDAP Unknown Completed [facility] Influenza Virus Unknown Completed [facility]it y of Vaccine Quad IM 3+ [facility] Pneumococcal Unknown Completed [facility] [place], [place] [facility] PPSV23 (PNEUMOVAX) Branch TDAP Unknown Completed [facility] TDAP Unknown Completed [facility] TDAP Unknown Completed [facility] Influenza Virus Unknown Completed [facility]it y of Vaccine Quad IM 3+ [facility] Pneumococcal Unknown Completed [facility] [place], [place] [facility] PPSV23 (PNEUMOVAX) Branch TDAP Unknown Completed [facility] TDAP Unknown Completed [facility] TDAP Unknown Completed [facility] Influenza Virus Unknown Completed [facility]it y of Vaccine Quad IM 3+ [facility] Pneumococcal Unknown Completed [facility] [place], [place] [facility] PPSV23 (PNEUMOVAX) Branch TDAP Unknown Completed [facility] TDAP Unknown Completed [facility] TDAP Unknown Completed [facility] Influenza Virus Unknown Completed [facility]it y of Vaccine Quad IM 3+ [facility] Pneumococcal Unknown Completed [facility] [place], [place] [facility] PPSV23 (PNEUMOVAX) Branch TDAP Unknown Completed [facility] TDAP Unknown Completed [facility] TDAP Unknown Completed [facility] Influenza Virus Unknown Completed [facility]it y of Vaccine Quad IM 3+ [facility] Pneumococcal Unknown Completed [facility] Polysaccharide, [facility] PPSV23 (PNEUMOVAX) [facility] TDAP Unknown Completed [facility] TDAP Unknown Completed [facility] TDAP Unknown Completed [facility] Influenza Virus Unknown Completed [facility]it y of Vaccine Quad IM 3+ [facility] Pneumococcal Unknown Completed [facility] Polysaccharide, [facility] PPSV23 (PNEUMOVAX) [facility] TDAP Unknown Completed [facility] TDAP Unknown Completed [facility] TDAP Unknown Completed [facility] Influenza Virus Unknown Completed [facility]it y of Vaccine Quad IM 3+ [facility] Pneumococcal Unknown Completed [facility] Polysaccharide, [facility] PPSV23 (PNEUMOVAX) Branch TDAP Unknown Completed [facility] TDAP Unknown Completed [facility] TDAP Unknown Completed [facility] Influenza Virus Unknown Completed [facility]it y of Vaccine Quad IM 3+ [facility] Pneumococcal Unknown Completed [facility] Polysaccharide, [facility] PPSV23 (PNEUMOVAX) [facility] TDAP Unknown Completed [facility] TDAP Unknown Completed [facility] TDAP Unknown Completed [facility] Influenza Virus Unknown Completed [facility]it y of Vaccine Quad IM 3+ [facility] Pneumococcal Unknown Completed [facility] Polysaccharide, [facility] PPSV23 (PNEUMOVAX) [facility] TDAP Unknown Completed [facility] TDAP Unknown Completed [facility] TDAP Unknown Completed [facility] Influenza Virus Unknown Completed [facility]it y of Vaccine Quad IM 3+ [facility] Vital Signs Vital Name Observation Time Observation Value Comments Source Systolic blood 2023-06-28 23:34:00 141 mm[Hg] Univer sity of pressure [facility] Diastolic blood 2023-06-28 23:34:00 86 mm[Hg] Unive rsity of pressure [facility] Heart rate 2023-06-28 23:33:00 107 /min [facility] Body temperature 2023-06-28 23:33:00 36.83 Zainab [facility] 2023-06-28 23:33:00 18 /min [facility] Body height 2023-06-28 23:33:00 154.9 cm [facility] Body weight 2023-06-28 23:33:00 121.972 kg [facility] BMI 2023-06-28 23:33:00 50.81 kg/m2 [facility] Oxygen saturation in 2023-06-28 23:33:00 98 /min University of Arterial blood by [facility] paul Pulse oximetry Branch Systolic blood 2023-03-07 16:14:00 153 mm[Hg] Univer sity of pressure [facility] Diastolic blood 2023-03-07 16:14:00 89 mm[Hg] Unive rsity of pressure [facility] Heart rate 2023-03-07 16:13:00 79 /min [facility] Body temperature 2023-03-07 16:13:00 36.44 Zainab Univ ersity of [facility] Respiratory rate 2023-03-07 16:13:00 16 /min Univ ersity of [facility] Body weight 2023-03-07 16:13:00 123.378 kg [facility] BMI 2023-03-07 16:13:00 51.39 kg/m2 [facility] Oxygen saturation in 2023-03-07 16:13:00 98 /min University of Arterial blood by [facility] Pulse oximetry Branch Systolic blood 2023-02-21 13:28:00 128 mm[Hg] Univer sity of pressure [facility] Diastolic blood 2023-02-21 13:28:00 75 mm[Hg] Unive rsity of pressure [facility] Heart rate 2023-02-21 13:28:00 65 /min [facility] Body temperature 2023-02-21 13:28:00 36 Zainab Univ ersity of [facility] Respiratory rate 2023-02-21 13:28:00 18 /min Univ ersity of [facility] Body height 2023-02-21 13:28:00 154.9 cm [facility] Body weight 2023-02-21 13:28:00 122.244 kg [facility] BMI 2023-02-21 13:28:00 50.92 kg/m2 [facility] Systolic blood 2022-11-24 20:34:00 155 mm[Hg] Univer sity of pressure [facility] Diastolic blood 2022-11-24 20:34:00 87 mm[Hg] Unive rsity of pressure [facility] Heart rate 2022-11-24 20:22:00 73 /min [facility] Body temperature 2022-11-24 20:22:00 36.67 Zainab Univ ers[facility] of [facility] Respiratory rate 2022-11-24 20:22:00 20 /min Univ ersity of [facility] Body height 2022-11-24 20:22:00 154.9 cm [facility] Body weight 2022-11-24 20:22:00 123.605 kg [facility] BMI 2022-11-24 20:22:00 51.49 kg/m2 [facility] Oxygen saturation in 2022-11-24 20:22:00 98 /min [facility] of Arterial blood by [place] [employer] [facility] Pulse oximetry Branch Systolic blood 2022-07-17 15:56:00 137 mm[Hg] Univer sity of pressure [facility] Diastolic blood 2022-07-17 15:56:00 79 mm[Hg] Unive rsity of pressure [facility] Heart rate 2022-07-17 15:56:00 73 /min [facility] Body temperature 2022-07-17 15:56:00 37 Zainab Univ ers[facility] Respiratory rate 2022-07-17 15:56:00 18 /min [facility] Body height 2022-07-17 15:56:00 154.9 cm [facility] Body weight 2022-07-17 15:56:00 123.242 kg [facility] BMI 2022-07-17 15:56:00 51.34 kg/m2 [facility] Oxygen saturation in 2022-07-17 15:56:00 95 /min University of Arterial blood by [employer] [employer] paul Pulse oximetry Branch Systolic blood 2022-06-13 00:43:00 152 mm[Hg] Univer sity of pressure [facility] Diastolic blood 2022-06-13 00:43:00 98 mm[Hg] Unive rsity of pressure [facility] Heart rate 2022-06-13 00:41:00 90 /min [facility] Body temperature 2022-06-13 00:41:00 37.17 Zainab [facility] Respiratory rate 2022-06-13 00:41:00 16 /min [facility] Body height 2022-06-13 00:41:00 154.9 cm [facility] Body weight 2022-06-13 00:41:00 126.508 kg [facility] BMI 2022-06-13 00:41:00 52.70 kg/m2 [facility] Oxygen saturation in 2022-06-13 00:41:00 97 /min [facility] blood by [place] [facility] Systolic blood 2022-04-14 18:03:00 126 mm[Hg] Univer sity of pressure [facility] Diastolic blood 2022-04-14 18:03:00 87 mm[Hg] Unive rsity of [facility] Heart rate 2022-04-14 18:03:00 83 /min [facility] Body temperature 2022-04-14 18:03:00 36.89 Zainab [facility] Respiratory rate 2022-04-14 18:03:00 18 /min [facility] Body height 2022-04-14 18:03:00 154.9 cm [facility] Body weight 2022-04-14 18:03:00 126.508 kg [facility] BMI 2022-04-14 18:03:00 52.70 kg/m2 [facility] Oxygen saturation in 2022-04-14 18:03:00 97 /min [facility] blood by [place] [facility] Body weight 2022-04-03 18:36:00 126.554 kg [facility] BMI 2022-04-03 18:36:00 52.72 kg/m2 [facility] Oxygen saturation in 2022-04-03 18:36:00 97 /min [facility] blood by [place] [facility] Systolic blood 2022-04-03 18:36:00 146 mm[Hg] Univer sity of pressure [facility] Diastolic blood 2022-04-03 18:36:00 86 mm[Hg] Unive rsity of pressure [facility] Heart rate 2022-04-03 18:36:00 84 /min [facility] Body temperature 2022-04-03 18:36:00 37.11 Zainab [facility] Respiratory rate 2022-04-03 18:36:00 18 /min [facility] Body height 2022-04-03 18:36:00 154.9 cm [facility] Systolic blood 2022-03-19 14:01:00 154 mm[Hg] Univer sity of pressure [facility] Diastolic blood 2022-03-19 14:01:00 82 mm[Hg] Unive rsity of pressure [facility] Heart rate 2022-03-19 14:01:00 61 /min [facility] Body temperature 2022-03-19 14:01:00 36.83 Zainab [facility] Respiratory rate 2022-03-19 14:01:00 18 /min [facility] Body height 2022-03-19 14:01:00 154.9 cm [facility] Body weight 2022-03-19 14:01:00 124.739 kg [facility] BMI 2022-03-19 14:01:00 51.96 kg/m2 [facility] Oxygen saturation in 2022-03-19 14:01:00 100 /min [facility] of Arterial blood by [facility] Pulse oximetry Branch Systolic blood 2021-10-01 18:26:00 111 mm[Hg] Univer sity of pressure [facility] Diastolic blood 2021-10-01 18:26:00 76 mm[Hg] Unive rsity of pressure [facility] Heart rate 2021-10-01 18:26:00 103 /min [facility] Body temperature 2021-10-01 18:26:00 36.89 Zainab [facility] Respiratory rate 2021-10-01 18:26:00 16 /min [facility] Body height 2021-10-01 18:26:00 154.9 cm [facility] Body weight 2021-10-01 18:26:00 129.048 kg [facility] BMI 2021-10-01 18:26:00 53.76 kg/m2 [facility] Oxygen saturation in 2021-10-01 18:26:00 100 /min University of Arterial blood by [facility] Pulse oximetry Branch Heart rate 2020-08-04 21:50:00 74 /min [facility] Respiratory rate 2020-08-04 21:50:00 23 /min [facility] Oxygen saturation in 2020-08-04 21:50:00 95 /min [facility] Arterial blood by [facility] Pulse oximetry Branch Systolic blood 2020-08-04 21:35:00 106 mm[Hg] Univer sity of pressure [facility] Diastolic blood 2020-08-04 21:35:00 63 mm[Hg] Unive rsity of pressure [facility] Body temperature 2020-08-04 20:49:00 36.5 Zainab [facility] Body height 2020-08-04 18:08:00 154.9 cm [facility] Body weight 2020-08-04 18:08:00 124.739 kg [facility] BMI 2020-08-04 18:08:00 51.96 kg/m2 [facility] Heart rate 2020-08-04 21:50:00 74 /min [facility] Respiratory rate 2020-08-04 21:50:00 23 /min [facility] Oxygen saturation in 2020-08-04 21:50:00 95 /min [facility] Arterial blood by [facility] Pulse oximetry Branch Systolic blood 2020-08-04 21:35:00 106 mm[Hg] Univer sity of pressure [facility] Diastolic blood 2020-08-04 21:35:00 63 mm[Hg] Unive rsity of pressure [facility] Body temperature 2020-08-04 20:49:00 36.5 Zainab [facility] Body height 2020-08-04 18:08:00 154.9 cm [facility] Body weight 2020-08-04 18:08:00 124.739 kg [facility] BMI 2020-08-04 18:08:00 51.96 kg/m2 [facility] Systolic blood 2020-06-05 18:07:00 123 mm[Hg] Univer sity of pressure [facility] Diastolic blood 2020-06-05 18:07:00 75 mm[Hg] Unive rsity of pressure [facility] Heart rate 2020-06-05 18:07:00 70 /min [facility] Body temperature 2020-06-05 18:07:00 36.72 Zainab [facility] Respiratory rate 2020-06-05 18:07:00 16 /min [facility] Body height 2020-06-05 18:07:00 156.2 cm [facility] Body weight 2020-06-05 18:07:00 129.91 kg [facility] BMI 2020-06-05 18:07:00 53.24 kg/m2 [facility] Body temperature 2020-05-31 20:10:00 36 Zainab [facility] Body weight 2020-05-31 20:10:00 128.822 kg [facility] BMI 2020-05-31 20:10:00 53.66 kg/m2 [facility] Systolic blood 2020-04-06 18:35:00 138 mm[Hg] Univer sity of pressure [facility] Diastolic blood 2020-04-06 18:35:00 83 mm[Hg] Unive rsity of pressure [facility] Heart rate 2020-04-06 18:35:00 65 /min [facility] Respiratory rate 2020-04-06 18:35:00 18 /min [facility] Body height 2020-04-06 18:35:00 154.9 cm [facility] Body weight 2020-04-06 18:35:00 122.018 kg [facility] BMI 2020-04-06 18:35:00 50.83 kg/m2 [facility] Systolic blood 2020-03-16 19:12:00 120 mm[Hg] Univer sity of pressure [facility] Diastolic blood 2020-03-16 19:12:00 80 mm[Hg] Unive rsity of pressure [facility] Body height 2020-03-16 19:12:00 154.9 cm [facility] Body weight 2020-03-16 19:12:00 122.018 kg [facility] BMI 2020-03-16 19:12:00 50.83 kg/m2 [facility] Body height 2019-12-23 16:00:00 154.9 cm [facility] Body weight 2019-12-23 16:00:00 122.018 kg [facility] BMI 2019-12-23 16:00:00 50.83 kg/m2 [facility] Procedures Procedure Date / Time Performing Clinician Source Performed POCT SARS-COV-2 ANTIGEN 2023-06-28 23:38:00 Cj Tierney [facility] POCT MOLECULAR STREP 2023-03-07 16:19:00 Unknown, Attending [facility] URINE CULTURE 2023-02-21 14:14:00 Mirta Correa [facility] GC & CHLAMYDIA AMPLIFIED 2023-02-21 14:14:00 Mirta Correa [facility] HIV 1/2 AG-AB WITH REFLEX 2023-02-21 14:14:00 Mirta Correa [facility] HIGH RISK HPV-THIN PREP 2023-02-21 14:14:00 Mirta Correa [facility] TRICHOMONAS AMPLIFIED 2023-02-21 14:14:00 Mirta Correa [facility] PAP SMEAR-LIQUID BASED-CP 2023-02-21 14:14:00 Mirta Correa [facility] SYPHILIS IGG/IGM 2023-02-21 14:14:00 Mirta Correa [facility] GARDASIL 9 (HPV 9V) 2023-02-21 13:56:00 [facility] NO SHOW OR MISSED 2023-02-21 12:59:00 Doctor Unassigned, [facility] APPOINTMENT POLICY [facility] ACKNOWLEDGEMENT ASSIGNMENT OF BENEFITS 2022-11-24 20:15:38 Doctor Unassigned, [facility] POCT TEST 2022-07-17 16:33:00 Drake Nannette [facility] POCT URINALYSIS 2022-07-17 16:15:00 Drake [facility] XR KNEE 3 VW LEFT 2022-03-19 14:44:16 Lottie Garvin [facility] POCT TEST 2022-03-19 14:34:00 Lottie Garvin [facility] COMP. METABOLIC PANEL 2022-03-19 14:27:00 Lottie Garvin [facility] ([id number]) [facility] CBC WITH DIFF 2022-03-19 14:27:00 Bharathi Lottie [facility] PROTHROMBIN TIME / INR 2022-03-19 14:27:00 Lottie Garvin [facility] ACTIVATED PARTIAL THRMPLAS 2022-03-19 14:27:00 Lottie Garvin [facility] URINALYSIS 2022-03-19 14:27:00 Lottie Garvin [facility] CONSENT/REFUSAL FOR 2022-03-19 13:50:09 [facility] CONSENT/REFUSAL FOR 2021-10-01 18:15:24 [facility]IS AND [facility]AT[facility] INTUBATION 2020-08-04 19:57:02 Luzma [facility] ASSIGNMENT OF BENEFITS 2020-08-04 16:10:14 [facility] DISCLOSURE AND CONSENT, 2020-07-05 05:01:00 Doctor Unassigned, [facility] MEDICAL AND SURGICAL [facility] PROCEDURES HIV 1/2 AG-AB WITH REFLEX 2020-06-05 19:04:00 Casie Ortega [facility] GALV ONLY - SYPHILIS 2020-06-05 19:04:00 Casie Ortega [facility] IGG/IGM [facility] XR WRIST 3+ VW LEFT 2020-05-31 19:46:46 Torey Whyte [facility] MR WRIST LEFT WO CONTRAST 2020-03-31 20:18:12 Kami Bernard [facility] REFERRAL- REQUEST/RESPONSE 2020-03-23 05:01:00 Doctor Sujey , [facility] Name [facility] SEDIMENTATION RATE 2019-12-23 17:06:00 Kami Bernard [facility] CBC WITH DIFFERENTIAL 2019-12-23 17:06:00 Kami Bernard [facility] ASSIGNMENT OF BENEFITS 2019-12-23 15:57:07 [facility] DME/SUPPLY JUSTIFICATION 2019-05-27 05:01:00 Doctor Sujey, [facility] Name [facility] Encounters Start End Encounter Admission Attending Care Care Encounter Source Date/Time Date/Time Type Type Clinicians Facility Department ID 2021-08-24 Outpatient ISABELL [facility] [id number] Univers 19:16:32 [facility] 2024-02-23 2024-02-23 Outpatient R AKINSIDUNIA, [facility] [id number] Univers 10:30:00 10:30:00 MIRTA taina o f [facility] 2023-06-28 2023-06-28 Urgent Niall [facility] 1.2.840.114 [id number] Univers 19:00:00 19:00:00 Care Unknown, Attending HEALTH [facility]10 [facility] 4.2.7.2.686 Willem as ALEK?BLEA [id number] [address] MEDICAL OFFICE BUILDING 2023-06-28 2023-06-28 Outpatient R NIALL [facility] [id number] Univers 19:00:00 18:52:42 CJ [facility] 2023-03-07 2023-03-07 Urgent Regla Baez [facility] 1.2.840 .114 [id number] Univers 11:40:00 12:00:00 Care Unknown, Attending HEALTH 350.1.13.[address] [facility] 4.2.7.2.686 Willem as ALEK?BLEA [phone] [address] MEDICAL OFFICE BUILDING 2023-03-07 2023-03-07 [facility] [id number] Univers 11:40:00 11:40:00 REGLA taina beavers ganesh [facility] 2023-02-25 2023-02-25 Telephone [facility] 1.2.840.114 [id number] Univers 00:00:00 00:00:00 Mirta C 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 [id number] ity of REGIONAL 4.2.7.2.686 Willem as MATERNAL [phone] [facility] & CHILD [address] [place] [address] 2023-02-25 2023-02-25 Telephone [facility] 1.2.840.114 [id number] Univers 00:00:00 00:00:00 Mirta C 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 [id number] ity of REGIONAL 4.2.7.2.686 Willem as MATERNAL [phone] [facility] & CHILD [address] [place] [address] 2023-02-24 2023-02-24 Telephone [facility] 1.2.840.114 [id number] Univers 00:00:00 00:00:00 Mirta C 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 350.1.13.10 ity of REGIONAL 4.2.7.2.686 [place]m as MATERNAL [id number] [address] 2023-02-24 2023-02-24 Patient [facility] 1.2.229.838 [id number] Univers 00:00:00 00:00:00 Secure Msg Mirta C 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 350.1.13.10 ity of REGIONAL 4.2.7.2.686 Willem as MATERNAL [phone] [facility] & CHILD [address] [place] [address] 2023-02-21 2023-02-21 [facility] [id number] Univers 08:15:00 09:14:08 MIRTA beavers ganesh [facility] 2023-02-21 2023-02-21 Office [facility] 1.2.635.646 [id number] Univers 08:15:00 09:14:08 Visit Mirta C 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 350.1.13.10 ity of REGIONAL 4.2.7.2.686 [place]illem as MATERNAL [id number] Med ical & CHILD [address] [place] [address] 2023-02-21 2023-02-21 Orders Doctor TOREY 1.2.840.114 [id number] Univers 00:00:00 00:00:00 Only Unassigned, LUZ 350.1.13.10 ity of [facility] 4.2.7.2.686 Willem as [phone] [address] 2023-02-19 2023-02-19 Case Mary MERRITT 1.2.840.114 [id number] Univers 00:00:00 00:00:00 Management , Jenniffer L CRAWFORD 350.1.13.10 [id number] [address] 2023-02-19 2023-02-19 Telephone Mary MERRITT 1.2.840.114 [id number] Univers 00:00:00 00:00:00 , Jenniffer SAENZY 350.1.13.10 [id number] [address] 2022-12-04 2022-12-04 Telephone Kirsten MIFRANCIE 1.2.091.057 [id number] Univers 00:00:00 00:00:00 [place] HEALTH 350.1.13.10 it y of CENTRAL 4.2.7.2.686 Willem as ALEK?BLEA [id number] [address] OFFICE [facility] 2022-11-24 2022-11-24 Urgent Latonia Castaneda [facility] 1.2.840.114 [id number] Univers 14:20:00 14:40:00 Care Unknown, [facility] HEALTH 350.1.13.10 ity of CENTRAL 4.2.7.2.686 Willem as ALEK?BLEA [id number] [address] 2022-11-24 2022-11-24 Outpatient R KIRSTEN [facility] [id number] Univers 14:20:00 14:20:00 LATONIA ity [facility] 2022-11-24 2022-11-24 Orders Doctor TOREY 1.2.840.114 [id number] Univers 00:00:00 00:00:00 Only Unassigned, LUZ 350.1.13.10 ity of [facility] 4.2.7.2.686 Willem as [phone] [address] 2022-07-20 2022-07-20 Luis Kurtz [facility] 1.2.182.299 [id number] Univers 00:00:00 00:00:00 [facility] 350.1.13.10 it y of CENTRAL 4.2.7.2.686 Willem as ALEK?BLEA [id number] [address] MEDICAL OFFICE [facility] 2022-07-17 2022-07-17 Outpatient R DRAEK [facility] [id number] Univers 11:15:00 11:29:07 NANNETTE itjulio c [facility] 2022-07-17 2022-07-17 Jason Juan [facility] 1.2.840.114 [id number] Univers 11:15:00 11:29:07 Care [facility] 350.1.13.10 it y of CENTRAL 4.2.7.2.686 Willem as ALEK?BLEA [id number] [address] OFFICE [facility] 2022-06-12 2022-06-12 Outpatient R TONNY [facility] [id number] Univers 19:20:00 19:47:11 TOREY her [facility] 2022-06-12 2022-06-12 Urgent Torey Cesar [facility] 1.2.840.114 [id number] Univers 19:20:00 19:47:11 Care Cj Tierney [facility] 350.1.13.10 ity of CENTRAL 4.2.7.2.686 Willem as ALEK?BLEA [id number] [address] MEDICAL OFFICE [facility] 2022-04-14 2022-04-14 Outpatient R STEVE [facility] [id number] Univers 12:40:00 13:52:43 REGLA beavers f [facility] 2022-04-14 2022-04-14 Regla Rico [facility] 1.2.840 .114 [id number] Univers 12:40:00 13:52:43 Care [facility] 350.1.13.10 ity of CENTRAL 4.2.7.2.686 Willem as ALEK?BLEA [id number] [address] OFFICE [facility] 2022-04-03 2022-04-03 Urgent [facility] 1.2.840.114 [id number] Univers 14:20:00 14:20:00 Care [facility] 350.1.13.10 it y of CENTRAL 4.2.7.2.686 Willem as ALEK?BLEA [id number] [address] OFFICE [facility] 2022-04-03 2022-04-03 Outpatient Oli KURTZ [facility] [id number] Univers 14:20:00 14:03:55 [facility]22-03-19 2022-03-19 Emergency [facility] [id number] Univers 09:01:00 11:10:00 [facility] 2022-03-19 2022-03-19 Emergency [facility] [id number] Univers 09:01:00 11:10:00 Lottie [place] 350.1.13.10 i ty [facility] 4.2.7.2.686 [place] [facility] [id number] [facility] [address] 2022-03-19 2022-03-19 Patient Doctor TOREY 1.2.840.114 [id number] Univers 00:00:00 00:00:00 Secure Msg Unassigned, LUZ 350.1.13.10 ity of [place] [facility] 4.2.7.2.686 Willem as [id number] [facility] [address] 2022-03-19 2022-03-19 Orders Doctor TOREY 1.2.840.114 [id number] Univers 00:00:00 00:00:00 Only Unassigned, LUZ 350.1.13.10 ity of [place] [facility] 4.2.7.2.686 Willem as [id number] [facility] [address] 2021-10-01 2021-10-01 Outpatient Oli JUAN [facility] [id number] Univers 15:00:00 13:13:59 NANNETTE ity of [facility] 2021-10-01 2021-10-01 Urgent Drake MIFRANCIE 1.2.840.114 [id number] Univers 12:15:40 13:13:59 Care [facility] 350.1.13.10 it y of CENTRAL 4.2.7.2.686 Willem as ALEK?BLEA [id number] Me dical [facility] [address] MEDICAL OFFICE BUILDING 2021-10-01 2021-10-01 Orders Doctor TOREY 1.2.840.114 [id number] Univers 00:00:00 00:00:00 Only Unassigned, LUZ 350.1.13.10 ity of [facility] 4.2.7.2.686 Willem as [id number] [address] 2021-06-04 2021-06-04 Patient Jordan MIFRANCIE 1.2.840.114 [id number] Univers 00:00:00 00:00:00 Secure Msg Roshunda R 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 350.1.13.10 ity of [facility] 4.2.7.2.686 Willem as MATERNAL [id number] Med ical & CHILD 107 [facility] 2021-01-15 2021-01-15 Patient Naren MIFRANCIE 1.2.840.114 [id number] 00:00:00 00:00:00 Outreach Harjit PRIMARY 350.1.13.10 Home CARE 4.2.7.2.686 PAVILLION [id number] [facility] 2021-01-15 2021-01-15 Patient Naren MIFRANCIE 1.2.840.114 [id number] Univers 00:00:00 00:00:00 Outreach Harjit PRIMARY 350.1.13.10 i ty of [place] [id number] [address] 2020-10-16 2020-10-16 Patient Doctor JORY 1.2.840.114 [id number] Univers 00:00:00 00:00:00 Secure Msg Unassigned, 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 350.1.13.10 ity of [place] REGIONAL 4.2.7.2.686 Willem as MATERNAL [id number] Med ical & CHILD 107 [facility] 2020-08-23 2020-08-23 Outpatient R ELHAMAIXANANI, [facility] [id number] Univers 14:00:00 14:00:00 TOREY her of [facility] 2020-08-22 2020-08-22 Patient [facility] 1.2.998.468 [id number] Univers 00:00:00 00:00:00 Secure Msg T[place] SPECIALTY 350.1.13.10 ity of CARE 4.2.7.2.686 [facility] s CENTER AT [id number] Az barbara HUERTA [address] [place] [address] 2020-08-09 2020-08-09 Telephone [facility] 1.2.840.114 [id number] Univers 00:00:00 00:00:00 [place] SPECIALTY 350.1.13.10 ity of CARE 4.2.7.2.686 [facility] s CENTER AT [id number] Az barbara HUERTA [address] [place] [address] 2020-08-09 2020-08-09 Telephone [facility] 1.2.840.114 [id number] 00:00:00 00:00:00 [place] SPECIALTY 350.1.13.10 CARE 4.2.7.2.686 CENTER AT [id number] BRADLEY Headley [facility] 2020-08-04 2020-08-04 [facility] 1.2.840.114 [id number] Univers 11:12:00 17:25:00 Encounter [facility] 350.1.13.10 ity of [place] 4.2.7.2.686 [facility] s [facility] [phone] [address] ([facility]) 2020-08-04 2020-08-04 Hospital [facility] 1.2.840.114 [id number] 11:12:00 17:25:00 Encounter [facility] 350.1.13.10 [place] 4.2.7.2.686 [facility] [phone] [address] ([facility]) 2020-08-04 2020-08-04 Anesthesia Ashley Alas [facility] 1.2.840 .114 [id number] Univers 14:32:00 15:44:00 Mirza [place] SPECIALTY 350.1.13.1 0 ity of CARE 4.2.7.2.686 [facility] CENTER AT [id number] Az barbara Alvarez [facility] 2020-08-04 2020-08-04 Anesthesia Ashley Alas [place] 1.2.840 .114 [id number] 14:32:00 15:44:00 Mirza [place] SPECIALTY 350.1.13.1 0 CARE 4.2.7.2.686 CENTER AT [id number] BRADLEY Alvarez [facility] 2020-08-04 2020-08-04 Orders Doctor TOREY 1.2.840.114 [id number] Univers 00:00:00 00:00:00 Only Unassigned, LUZ 350.1.13.10 ity of [facility] 4.2.7.2.686 [facility] [phone] [address] 2020-08-04 2020-08-04 Orders Doctor LEMA 1.2.840.114 [id number] 00:00:00 00:00:00 Only Unassigned, LUZ 350.1.13.10 [place] [facility] 4.2.7.2.686 [phone] 009 2020-08-03 2020-08-03 Outpatient R [facility] [id number] Univers 15:30:00 15:30:00 ity of [facility] 2020-08-03 2020-08-03 Laboratory Only, [facility] Test [facility] 1.2.840. 114 [id number] Univers 14:49:11 15:04:01 Only Torey Whyte 350.1.13.10 ity of [place] 4.2.7.2.686 [facility] [phone] [facility] [address] 2020-08-03 2020-08-03 Laboratory Only, [facility] 1.2.840.114 [id number] 14:49:11 15:04:01 Only Tanvi Cosby 350.1.13.10 [place] 4.2.7.2.686 [place] [phone] 353 2020-08-02 2020-08-02 Telephone Isabell [facility] 1.2.840.114 [id number] Univers 00:00:00 00:00:00 [place] SPECIALTY 350.1.13.10 [place] [phone] Az barbara HUERTA 198 [facility] 2020-08-02 2020-08-02 Telephone Faillace, [facility] 1.2.840.114 [id number] Univers 00:00:00 00:00:00 [place] SPECIALTY 350.1.13.10 [place] [phone] Az barbara HUERTA 198 [facility] 2020-07-21 2020-07-21 Patient Doctor [facility] 1.2.840.114 [id number] Univers 00:00:00 00:00:00 Secure Msg 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, 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 350.1.13.10 ity of [place] REG[facility]AL 4.2.7.2.686 Willem as MATERNAL [phone] Med ical & CHILD 107 [facility] 2020-07-20 2020-07-20 Patient Faillace, [facility] 1.2.892.545 [id number] Univers 00:00:00 00:00:00 Secure Msg [place] SPECIALTY 350.1.13.10 [place] [phone] Az barbara HUERTA 198 [facility] 2020-07-19 2020-07-19 Telephone Failprce, [facility] 1.2.840.114 [id number] Univers 00:00:00 00:00:00 [place] SPECIALTY 350.1.13.10 [place] [phone] Az barbara HUERTA 198 [facility] 2020-07-07 2020-07-07 Patient Faillace, [facility] 1.2.662.252 [id number] Univers 00:00:00 00:00:00 Secure Msg [place] SPECIALTY 350.1.13.10 [place] [phone] Az barbara HUERTA 198 [facility] 2020-07-05 2020-07-05 Telemedici Failprce, [facility] 1.2.840.114 [id number] Univers 11:28:58 11:38:58 ne Visit [place] SPECIALTY 350.1.13.10 it[place] [phone] Az dical BRADLEY 198 [facility] 2020-07-05 2020-07-05 Outpatient R ISABELL [facility] [id number] Univers 11:10:00 11:10:00 TOREY itjulio c [facility] 2020-07-05 2020-07-05 Patient Doctor [facility] 1.2.840.114 [id number] Univers 00:00:00 00:00:00 Secure Msg Unassigned, 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 350.1.13.10 ity of [place] [facility] 4.2.7.2.686 Willem as MATERNAL [phone] Med ical & CHILD [address] [place] [address] 2020-07-05 2020-07-05 Orders Doctor TOREY 1.2.840.114 [id number] Univers 00:00:00 00:00:00 Only Unassigned, LUZ 350.1.13.10 ity of [facility] 4.2.7.2.686 Willem as [phone] [address] 2020-06-21 2020-06-21 Outpatient R FARIDA [facility] [id number] Univers 13:30:00 13:30:00 [facility]-20 2020-06-20 Patient Isabell [facility] 1.2.872.673 [id number] Univers 00:00:00 00:00:00 Secure Msg Torey [facility] 350.1.13.10 ity of C[place] 4.2.[place].2.[place] [facility] [phone] Az barbara [address] [place] [address] 2020-06-19 2020-06-19 Investigative Reporter Lab, Ang-Rmchp [facility] 1.2.840. 114 [id number] Univers 16:19:58 16:20:05 Visit Casie Ortega R 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 350.1.13.10 ity of REGIONAL 4.2.7.2.686 [place] as MATERNAL [phone] [facility] ical & CHILD [address] [place] [address] 2020-06-19 2020-06-19 [facility] [id number] Univers 15:40:00 15:40:00 TOREY ity of [facility] 2020-06-19 2020-06-19 Outpatient R ORTEGA [facility] [id number] Univers 15:15:00 15:15:00 CASIE ity o f [facility] 2020-06-19 2020-06-19 Telephone Flaqu[place]ani [facility] 1.2.840.114 [id number] Univers 00:00:00 00:00:00 [place] PRIMARY 350.1.13.10 it y of CARE 4.2.7.2.686 [place] EDEN [phone] [address] 2020-06-16 2020-06-16 Patient Doctor [facility] 1.2.840.114 [id number] Univers 00:00:00 00:00:00 Secure Msg Unassigned, 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 350.1.13.10 ity of [place] REGIONAL 4.2.7.2.686 W[place]m as MATERNAL [phone] Med ical & CHILD [address] [place] [address] 2020-06-13 2020-06-13 Patient Doctor [facility] 1.2.840.114 [id number] Univers 00:00:00 00:00:00 Secure Msg Unassigned, 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 350.1.13.10 ity of [place] REGIONAL 4.2.7.2.686 [place]m as MATERNAL [phone] Med ical & CHILD [address] [place] [address] 2020-06-12 2020-06-12 [facility] 1.2.043.066 [id number] Univers 00:00:00 00:00:00 Tena R 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 350.1.13.10 ity of [facility] 4.2.7.2.686 [place]m as MATERNAL [phone] Med ical & CHILD [address] [place] [address] 2020-06-06 2020-06-06 [facility]phone [facility] 1.2.054.119 [id number] Univers 00:00:00 00:00:00 Tena R 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 350.1.13.10 ity of [facility] 4.2.7.2.686 Willem as MATERNAL [phone] [facility] ical & CHILD [address] [place] [address] 2020-06-05 2020-06-05 Office [facility] 1.2.840.114 [id number] Univers 12:48:43 14:03:05 Visit Casie R 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 350.1.13.10 ity of REGIONAL 4.2.7.2.686 [place] as MATERNAL [phone] Med ical & CHILD 107 [facility] 2020-06-05 2020-06-05 [facility] [id number] Univers 12:45:00 12:45:00 CASIE ity o f [facility] 2020-05-31 2020-05-31 [facility] 1.2.840.114 [id number] Univers 14:36:23 23:59:00 Encounter [place] SPECIALTY 350.1.13.10 [place] [phone] Az barbara HUERTA 809 [facility] 2020-05-31 2020-05-31 Office [facility] 1.2.605.248 [id number] Univers 14:17:05 15:56:27 Visit [place] SPECIALTY 350.1.13.10 it[place] [phone] Az barbara HUERTA 198 [facility] 2020-05-31 2020-05-31 Outpatient R [facility] [id number] Univers 14:30:00 14:30:00 TOREY her [facility] 2020-04-24 2020-04-24 Patient Doctor [facility] 1.2.840.114 [id number] Univers 00:00:00 00:00:00 Secure Msg Unassigned, HEALTH 350.1.13.10 ity of [place] SURGICAL 4.2.7.2.686 W[place] as SPECIALTI [phone] Az barbara JHA 198 [facility] 2020-04-12 2020-04-12 Outpatient R [facility] [id number] Univers 13:00:00 13:00:00 TOREY itjulio c [facility] 2020-04-12 2020-04-12 Patient Doctor [facility] 1.2.840.114 [id number] Univers 00:00:00 00:00:00 Secure Msg Unassigned, 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 350.1.13.10 ity of [place] [facility] 4.2.7.2.686 Willem as MATERNAL [phone] Med ical & CHILD 107 [facility] 2020-04-06 2020-04-06 Outpatient [facility] [id number] Univers 15:30:00 15:30:00 KAMI ity [facility] 2020-04-06 2020-04-06 Office [facility] 1.2.858.360 [id number] Univers 13:33:51 14:02:35 Visit Kami Bryan 350.1.13.10 it y of Surgical 4.2.7.2.686 [place] as Specialti [phone] [facility] 198 [facility] 2020-03-31 2020-03-31 Outpatient [facility] [id number] Univers 14:26:45 23:59:00 KAMI ity [facility] 2020-03-31 2020-03-31 [facility] 1.2.840.114 [id number] Univers 14:00:00 23:59:00 Encounter Kami Quinones HEALTH 350.1.13.10 ity of CL[place]ICS [place] [phone] [facility] [address] 2020-03-23 2020-03-23 Orders Doctor TOREY 1.2.840.114 [id number] Univers 00:00:00 00:00:00 Only Unassigned, LUZ 350.1.13.10 ity of [place] [facility] 4.2.7.2.686 Willem as [phone] [facility] [address] 2020-03-22 2020-03-22 Telephone [facility] 1.2.840.114 [id number] Univers 00:00:00 00:00:00 Kami Ramos Jacked 350.1.13.10 it y of Surgical 4.2.7.2.686 [place] Specialti [phone] Az dical es 198 [facility] 2020-03-16 2020-03-16 Office [facility] 1.2.354.834 [id number] Univers 14:10:26 14:24:02 Visit Kami Bryan 350.1.13.10 it y of Surgical 4.2.7.2.686 [place] Specialti [phone] Az dical es 198 [facility] 2020-03-16 2020-03-16 Outpatient R MARCO ANTONIO [facility] [id number] Univers 14:15:00 14:15:00 KAMI her [facility] 2020-03-16 2020-03-16 Outpatient R MARCO ANTONIO [facility] [id number] Univers 13:15:00 13:15:00 [facility] 2020-01-11 2020-01-11 Outpatient R MIGUEL [facility] [id number] Univers 13:45:00 13:45:00 [facility] Hospitaljulio c [facility] 2020-01-06 2020-01-06 Outpatient R MIGUEL [facility] [id number] Univers 14:45:00 14:45:00 [facility] Hospitaljulio c [facility] 2019-12-30 2019-12-30 Outpatient R MARCO ANTONIO [facility] [id number] Univers 10:15:00 10:15:00 [facility] 2019-12-30 2019-12-30 Patient Miguel [facility] 1.2.840.114 [id number] Univers 00:00:00 00:00:00 Secure Ms John Jacked 350.1.13.10 ity of Surgical 4.2.7.2.686 [place] as Specialti [phone] Az dical es 198 [facility] 2019-12-23 2019-12-23 Investigative Reporter Kelsey, [facility] Main [facility] 1.2.8 40.114 [id number] Univers 10:51:53 11:06:53 Visit Kami Bernard 350.1.13.10 it[place] of [place].2.[place] [phone] Az dical nal 353 [facility] 2019-12-23 2019-12-23 Office Marco Antonio [facility] 1.2.041.709 [id number] Univers 09:56:57 10:15:25 Visit Kami Ramos Jacked 350.1.13.10 it y of Surgical 4.2.7.2.686 [place] Specialti [phone] Az dical es 198 [facility] 2019-12-23 2019-12-23 Outpatient [facility] [id number] Univers 10:15:00 10:15:00 KAMI ity of [facility] 2019-12-23 2019-12-23 Orders Doctor TOREY 1.2.840.114 [id number] Univers 00:00:00 00:00:00 Only Unassigned, LUZ 350.1.13.10 ity of [place] [facility] 4.2.7.2.686 Willem as [id number] [address] 2019-05-27 2019-05-27 Orders Doctor TOREY 1.2.840.114 [id number] Univers 00:00:00 00:00:00 Only Unassigned, LUZ 350.1.13.10 ity of [place] [facility] 4.2.7.2.686 Willme as [phone] [address] 2019-05-27 2019-05-27 Telephone [facility] 1.2.458.890 [id number] Univers 00:00:00 00:00:00 Haja Cosby 350.1.13.10 i [place].2.[place] [phone] Az dical [facility]5 [facility] 2014-05-30 2014-05-30 Patient Doctor TOREY 1.2.840.114 [id number] Univers 00:00:00 00:00:00 Secure Msg Unassigned, LUZ 350.1.13.10 ity of [place] [facility] 4.2.7.2.686 Willem as [phone] [address] Results Test Description Test Time Test Comments Results Result Comments Source POCT SARS-COV-2 ANTIGEN (BINAX NOW) 2023-06-28 23:40:00 Test Item Value Reference Range Interpretation Comme nts POCT SARS-COV-2 ANTIGEN (test code Not Detected Not Detected = 35824-6) On board controls acceptable with Yes C Line (test code = 3574) FIONA (test code = FIONA) accurate development and interpretation of all internal controls Lab Interpretation (test code = Normal 25411-3) [facility] (BINAX NOW)2023-06-28 23:40:00 Test Item Value Reference Range Interpretation Comments POCT SARS-COV-2 ANTIGEN Not Detected Not Detected (test code = 45632-3) On board controls Yes acceptable with C Line (test code = 3574) FIONA (test code = FIONA) accurate development and interpretation of all internal controls Lab Interpretation Normal (test code = 13429-8) [facility] MOLECULAR [id number] 16:26:28 Test Item Value Reference Range Interpretation Comments POCT Molecular Strep (test code = Negative Negative 39863-5) Lab Interpretation (test code = Normal 03492-6) [facility] Lake[facility]PHILIS [id number] 16:53:38 Test Item Value Reference Range Interpretation Comments Syphilis IgG/IgM (test Non-reactive Non-reactive code = 21637-7) FIONA (test code = FIONA) Non-reactive - No serologic evidence of T. pallidum infection. Cannot exclude incubating or early syphilis. Submit a second specimen in 2-4 weeks if syphilis is clinically suspected. Equivocal - Further testing to follow. Reactive - Further testing to follow. Lab Interpretation (test Normal code = 14338-8) [facility] Lake[facility]/2 AG-AB WITH [id number] 05:24:24 Test Item Value Reference Range Interpretation Comments HIV 0.07 Negative Semi-quantitative (test code = 52752-4) FIONA (test code = Non-reactive for HIV-1 FIONA) antigen and HIV-1/HIV-2 antibodies. ?No laboratory evidence of HIV infection. ?Repeat in 2-4 weeks if acute HIV infection is suspected. [facility] [id number] 16:44:00 Test Item Value Reference Range Interpretation Comments POCT PREG (test code = Negative 1605) On board controls Yes acceptable with C Line (test code = 3574) POCT PREG LOT # (test [id number] code = 3575) POCT PREG TEST DATE (test code = 3576) FIONA (test code = FIONA) accurate development and interpretation of all internal controls Lab Interpretation Normal (test code = 22364-6) [facility] URINALYSIS W SPECIFIC [id number] 16:16:00 Test Item Value Reference Range Interpretation [...] 3267) Lab Interpretation (test code Normal = 03659-1) [facility] WITH [id number] 15:36:23 Test Item Value Reference Range Interpretation Comments WBC (test code = See_Comment H [Automated 5068-2) message] The sy stem which generated this result transmitted reference range : 4.30 - 11.10 10*3/?L. The reference range was not used to interpret this result as normal/abnormal . RBC (test code = See_Comment [Automated 759-8) message] The sy stem which generated this [...] RDW-SD (test code = 43.0 fL 39.0-49.9 37263-1) RDW-CV (test code = 13.8 % 12.0-15.5 788-0) PLT (test code = See_Comment [Automated 427-3) message] The sy stem which generated this result transmitted reference range : 166 - 358 10*3/ ?L. The reference r mariella was not used to interpret this result as normal/abnormal . MPV (test code = 10.8 fL 9.5-12.9 18707-0) NRBC/100 WBC (test See_Comment [Automat ed code = 1619481453) message] The system which generated this result transmitted reference range : 0.0 - 10.0 /100 WBCs. The refer ence range was not u sed to interpret th is result as normal/abnormal . NRBC x10^3 (test code <0.01 See_Comment [Auto mated = 2373916831) message] The s ystem which generated this result transmitted reference range : 10*3/?L. The reference range was not used to interpret this result as normal/abnormal . GRAN MAT (NEUT) % 59.6 % (test code = 770-8) IMM GRAN % (test code 0.40 % = 2505792916) LYMPH % (test code = 29.0 % 736-9) MONO % (test code = 7.7 % 5905-5) EOS % (test code = 2.9 % 713-8) BASO % (test code = 0.4 % 706-2) GRAN MAT x10^3(ANC) 8.31 10*3/uL 1.88-7.09 H (test code = 4685958590) IMM GRAN x10^3 (test 0.06 10*3/uL 0.00-0.06 code = 2054666131) LYMPH x10^3 (test code 4.05 10*3/uL 1.32-3.29 H = 731-0) MONO x10^3 (test code 1.07 10*3/uL 0.33-0.92 H = 742-7) EOS x10^3 (test code = 0.41 10*3/uL 0.03-0.39 H 711-2) BASO x10^3 (test code 0.05 10*3/uL 0.01-0.07 = 704-7) REACT LYMPHS (test Rare code = 9297958897) Lab Interpretation Abnormal (test code = 76595-5) [facility] LakeACTIVATED PARTIAL THRMPLAS [id number] 15:06:58 Test Item Value Reference Range Interpretation Comments APTT Patient (test See_Comment [Automat ed code = 3173-2) message] The system which generated this result transmitted reference range : 23 - 38 Seconds . The reference range was not used to interpr et this result as normal/abnormal . FIONA (test code = FIONA) The [facility] patient population mean normal value for aPTT is 30 seconds. Lab Interpretation Normal (test code = 32110-6) [facility] LakePROTHROMBIN TIME / [id number] 15:04:57 Test Item Value Reference Range Interpretation [...] tions. Lab Interpretation (test Normal code = 82129-7) [facility] LakeCOMP. METABOLIC PANEL (32470)2022-03-19 14:58:33 Test Item Value Reference Range Interpretation Comments NA (test code = 141 mmol/L 135-145 7338720203) K (test code = 4.3 mmol/L 3.5-5.0 7903825239) CL (test code = 107 mmol/L 98-108 3120910144) CO2 TOTAL (test code = 24 mmol/L 23-31 4428121011) AGAP (test code = 2-16 2134883335) BUN (test code = 11 mg/dL 7-23 7396639892) GLUCOSE (test code = 116 mg/dL 70-110 H 8701919847) CREATININE (test code = 0.71 mg/dL 0.50-1.04 8849927805) TOTAL BILI (test code = 0.5 mg/dL 0.1-1.4 1580527734) CALCIUM (test code = 9.3 mg/dL 8.6-10.6 7242042036) T PROTEIN (test code = 7.0 g/dL 6.3-8.2 2674839612) ALBUMIN (test code = 4.3 g/dL 3.5-5.0 2104841414) ALK PHOS (test code = 63 U/L 34-122 8021366485) ALTv (test code = 48 U/L 5-35 H 1742-6) AST(SGOT) (test code = 33 U/L 13-40 2469389088) eGFR (test code = mL/min/1.73m2 0100371564) FIONA (test code = FIONA) Association of [...] tests). Lab Interpretation Abnormal (test code = 55573-8) [facility] [id number] 14:34:00 Test Item Value Reference Range Interpretation Comments POCT PREG (test code = 1605) negative On board controls acceptable with present C Line (test code = 3574) POCT PREG LOT # (test code = 3575) [id number] POCT PREG TEST DATE (test 07-26-2023 code = 3576) Lab Interpretation (test code = Normal 45357-7) [facility] LakeIntubation2020-10-09 19:57:02HoLuzma Fairchild CRNA ? ? 08/04/2020 ?2:57 PMIntubationDate/Time: 08/04/2020 2:39 PMUrgency: elective Airway not difficult General Information and Staff Patient location during procedure: ORResident/DOOR CLAMPER: Luzma Almanza CRNAPerformed: resident/DOOR CLAMPER Indications and Patient ConditionIndications for airway management: [...] and BBS, teeth and lips per preop assessmentUnSt. David's [facility] CenterGALV ONLY - SYPHILIS IGG/IGM 2020-06-06 13:57:00 Test Item Value Reference Range Interpretation Comments Syphilis IgG/IgM (test Non-reactive Non-reactive code = 23493-1) FIONA (test code = FIONA) Non-reactive - No serologic evidence of T. pallidum infection. Cannot exclude incubating or early syphilis. Submit a second specimen in 2-4 weeks if syphilis is clinically suspected. Equivocal - Further testing to follow. Reactive - Further testing to follow. Lab Interpretation (test Normal code = 18666-5) [facility] Lake[facility]/2 AG-AB WITH [id number] 05:48:00 Test Item Value Reference Range Interpretation Comments HIV Negative Negative Semi-quantitative (test code = 64519-3) FIONA (test code = Non-reactive for HIV-1 FIONA) antigen and HIV-1/HIV-2 antibodies. ?No laboratory evidence of HIV infection. ?Repeat in 2-4 weeks if acute HIV infection is suspected. [facility] LakeXR WRIST 3+ VW [id number] 20:09:52 Osteonecrosis of the lunate. Nonspecific swelling [...] of the lunate.Nonspecific swelling over the medial forearm.[facility] [id number] 17:35:00 Test Item Value Reference Range Interpretation Comments ESR (test code = See_Comment [Automated message] 7511266566) The system Zova generated this result transmitted ref erence range: 0 - 20 m m/HR. The reference r mariella was not used to interpret this result as normal/abnor mal. Lab Interpretation (test Normal code = 88193-2) [facility] [id number] 17:35:00 Test Item Value Reference Range Interpretation Comments ESR (test code = See_Comment [Automated message] 7472131500) The system Zova generated this result transmitted ref erence range: 0 - 20 m m/HR. The reference r mariella was not used to interpret this result as normal/abnor mal. Lab Interpretation (test Normal code = 36628-4) [facility] WITH [id number] 17:10:00 Test Item Value Reference Range Interpretation [...] RDW-SD (test code = 45.0 fL 39-49.9 13301-3) RDW-CV (test code = 14.9 % 12-15.5 788-0) PLT (test code = See_Comment [Automated 777-3) message] The sy stem which generated this result transmitted reference range : 166 - 358 10*3/ ?L. The reference r mariella was not used to interpret this result as normal/abnormal . MPV (test code = 10.0 fL 9.5-12.9 09247-3) NRBC/100 WBC (test See_Comment [Automat ed code = 1406657769) message] The system which generated this result transmitted reference range : 0.0 - 10.0 /100 WBCs. The refer ence range was not u sed to interpret th is result as normal/abnormal . NRBC x10^3 (test code <0.01 See_Comment [Auto mated = 0587692585) message] The s ystem which generated this result transmitted reference range : 10*3/?L. The reference range was not used to interpret this result as normal/abnormal . GRAN MAT (NEUT) % 60.7 % (test code = 770-8) IMM GRAN % (test code 0.50 % = 0809783829) LYMPH % (test code = 28.4 % 736-9) MONO % (test code = 7.5 % 5905-5) EOS % (test code = 2.5 % 713-8) BASO % (test code = 0.4 % 706-2) GRAN MAT x10^3(ANC) 5.91 10*3/uL 1.88-7.09 (test code = 1106227962) IMM GRAN x10^3 (test 0.05 10*3/uL 0-0.06 code = 4968904156) LYMPH x10^3 (test code 2.76 10*3/uL 1.32-3.29 = 731-0) MONO x10^3 (test code 0.73 10*3/uL 0.33-0.92 = 742-7) EOS x10^3 (test code = 0.24 10*3/uL 0.03-0.39 711-2) BASO x10^3 (test code 0.04 10*3/uL 0.01-0.07 = 704-7) Lab Interpretation Abnormal (test code = 30405-5) [facility] WITH [id number] 17:10:00 Test Item Value Reference Range Interpretation Comments WBC (test code = See_Comment [Automated 0045-2) message] The sy stem which generated this result transmitted reference range : 4.30 - 11.10 10*3/?L. The reference range was not used to interpret this result as normal/abnormal . RBC (test code = See_Comment [Automated 947-8) message] The sy stem which generated this [...] RDW-SD (test code = 45.0 fL 39-49.9 77300-6) RDW-CV (test code = 14.9 % 12-15.5 788-0) PLT (test code = See_Comment [Automated 827-3) message] The sy stem which generated this result transmitted reference range : 166 - 358 10*3/ ?L. The reference r mariella was not used to interpret this result as normal/abnormal . MPV (test code = 10.0 fL 9.5-12.9 94261-3) NRBC/100 WBC (test See_Comment [Automat ed code = 8715080076) message] The system which generated this result transmitted reference range : 0.0 - 10.0 /100 WBCs. The refer ence range was not u sed to interpret th is result as normal/abnormal . NRBC x10^3 (test code <0.01 See_Comment [Auto mated = 4364769535) message] The s ystem which generated this result transmitted reference range : 10*3/?L. The reference range was not used to interpret this result as normal/abnormal . GRAN MAT (NEUT) % 60.7 % (test code = 770-8) IMM GRAN % (test code 0.50 % = [id number]) LYMPH % (test code = 28.4 % 736-9) MONO % (test code = 7.5 % 5905-5) EOS % (test code = 2.5 % 713-8) BASO % (test code = 0.4 % 706-2) GRAN MAT x10^3(ANC) 5.91 10*3/uL 1.88-7.09 (test code = 0070157032) IMM GRAN x10^3 (test 0.05 10*3/uL 0-0.06 code = 0158488790) LYMPH x10^3 (test code 2.76 10*3/uL 1.32-3.29 = 731-0) MONO x10^3 (test code 0.73 10*3/uL 0.33-0.92 = 742-7) EOS x10^3 (test code = 0.24 10*3/uL 0.03-0.39 711-2) BASO x10^3 (test code 0.04 10*3/uL 0.01-0.07 = 704-7) Lab Interpretation Abnormal (test code = 77685-4) [facility]"
[2023-09-01] MEDS ORDERED: KETOROLAC 30 MG/ML INJ ONE (10:55)
--- NOTE | 2023-09-01 12:01 | EDPHYS ---
Physician Documentation [facility] Name: Priscilla Solo Age: 38 yrs Sex: Female : 1985 Arrival Date: 09/01/2023 Time: 10:22 Bed DIS4 Private MD: ED Physician Chencho Jacobs HPI: 09/01 10:37 This 38 yrs old Female presents to ER via Ambulatory with complaints of Headache, ec2 Cough, Sore Throat. 10:37 Patient arrives today due to concern for headache along with cough and cold symptoms. ec2 Patient has been having symptoms ongoing for approximately 1 week. Patient states that she is concerned about strep throat as her 2 kids have strep throat. Patient reports no injury p.o. intake, no nausea or vomiting or diarrhea. Patient been taking ibuprofen with some improvement in symptoms.. 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 - Social history:: Smoking status: Patient denies any tobacco usage or history of. ROS: 10:37 Constitutional: as per hpi ec2 Exam: 10:37 Constitutional: GEN: NAD Head: atraumatic Eyes: EOMI Ears: External ears are ec2 normal. Mouth: Posterior pharyngeal erythema without exudates appreciated, no submandibular swelling CV: regular rate LUNGS: no respiratory distress ABD: non-distended SKIN: no evidence of rashes MSK: no evidence of trauma NEURO: moves all extremities equally Vital Signs: 10:30 BP 151 / 62; Pulse 65; Resp 16; Temp 97.9; Pulse Ox 100% on R/A; iw 12:00 BP 141 / 71; Pulse 71; Resp 16; Pulse Ox 100% ; ll1 MDM: 10:25 Patient medically screened. [facility] 10:37 Data reviewed: vital signs. ED course: Patient arrives today due to concern for URI ec2 symptoms. Examination remarkable for well-appearing nontoxic dividual is otherwise in no acute distress. Will obtain strep swab, will defer viral swabs given that this would not be management changing. Currently considering strep pharyngitis, viral process. We will give the patient Toradol IM for pain medications. 12:00 ED course: Patient is strep negative. Will discharge home, suspect viral process. ec2 Return precautions given. . 09/01 10:32 Order name: Strep; Complete Time: 12:00 ec2 09/01 11:12 Order name: Throat Culture EDMS Administered Medications: 10:54 Drug: Ketorolac IM 30 mg IM once Route: IM; Site: left gluteus; ll1 12:04 Follow up: Response: No adverse reaction; Temperature is decreased; RASS: Alert and ll1 Calm (0) Disposition Summary: 09/01/23 12:00 Discharge Ordered Notes: Location: Home ec2 Condition: Stable ec2 Diagnosis - Viral infection, unspecified ec2 Discharge Instructions: - Discharge Summary Sheet ec2 - Viral Illness, Adult ec2 Forms: - Work release form ec2 - Medication Reconciliation Form ec2 - Thank You Letter ec2 - Antibiotic Education ec2 - Prescription Opioid Use ec2 - Patient Portal Instructions ec2 - Leadership Thank You Letter ec2 Signatures: Dispatcher [employer] Nicki Zhao, Gutierrez Walden RN, RN RN 1 Yumiko Biggs FNP FNP 7 Chencho Jacobs MD MD ec2
--- NOTE | 2023-09-01 12:01 | ER ---
Nurse's Notes [facility] Name: Priscilla Solo Age: 38 yrs Sex: Female : 1985 Arrival Date: 09/01/2023 Time: 10:22 Bed DIS4 Private MD: Diagnosis: Viral infection, unspecified Presentation: 09/01 10:28 Chief complaint: Patient states: Headache, cough, sore throat and ear pain X 1 week, iw kids tested positive for strep. Coronavirus screen: Client presents with at least one sign or symptom that may indicate coronavirus-19. Ebola Screen: Patient negative for fever greater than or equal to 101.5 degrees Fahrenheit, and additional compatible Ebola Virus Disease symptoms Patient denies exposure to infectious person. Patient denies travel to an Ebola-affected area in the 21 days before illness onset. No symptoms or risks identified at this time. Initial Sepsis Screen: Does the patient meet any 2 criteria? No. Patient's initial sepsis screen is negative. Does the patient have a suspected source of infection? No. Patient's initial sepsis screen is negative. Risk Assessment: Do you want to hurt yourself or someone else? Patient reports no desire to harm self or others. Onset of symptoms was August 27, 2023. 10:28 Method Of Arrival: Ambulatory iw 10:28 Acuity: ERIC 4 iw Triage Assessment: 12:05 Headache History: The patient has had previous headaches and this one is similar to ll1 previous episodes. General: Appears uncomfortable. Pain: Pain currently is 2 out of 10 on a pain scale. Also complains of no other associated symptoms. Pain: Denies pain. 12:06 Pain: Pain began 2-3 days ago. 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 - Social history:: Smoking status: Patient denies any tobacco usage or history of. Screenin:[facility] ED Fall Risk Assessment (Adult) Score/Fall Risk Level 0 - 2 = Low Risk. Abuse iw screen: Denies threats or abuse. Denies injuries from another. Nutritional screening: No deficits noted. Tuberculosis screening: No symptoms or risk factors identified. Assessment: 10:35 General: Appears in no apparent distress. Behavior is calm, cooperative. Pain: iw Complains of pain in head, throat. Neuro: Level of Consciousness is awake, alert, obeys commands. 10:54 Reassessment: No changes from previously documented assessment. Patient and/or family ll1 updated on plan of care and expected duration. Pain level reassessed. Patient is alert, oriented x 3, equal unlabored respirations, skin warm/dry/pink. 12:05 Reassessment: No changes from previously documented assessment. Patient and/or family ll1 updated on plan of care and expected duration. Pain level reassessed. Patient is alert, oriented x 3, equal unlabored respirations, skin warm/dry/pink. Vital Signs: 10:30 BP 151 / 62; Pulse 65; Resp 16; Temp 97.9; Pulse Ox 100% on R/A; iw 12:00 BP 141 / 71; Pulse 71; Resp 16; Pulse Ox 100% ; ll1 ED Course: 10:24 Patient arrived in ED. im 10:25 Yumiko Biggs FNP is [facility] 7 10:25 Dillon Levine MD is Attending Physician. [facility] 10:29 Triage completed. iw 10:29 Arm band placed on. iw 10:30 Chencho Jacobs MD is Attending Physician. [facility] 10:35 Nicki Garcia, MARE is Primary Nurse. iw 12:05 Patient has correct armband on for positive identification. Bed in low position. Call ll1 light in reach. Provided Education on: n/a. 12:05 No provider procedures requiring assistance completed. Patient did not have IV access ll1 during this emergency room visit. Administered Medications: 10:54 Drug: Ketorolac IM 30 mg IM once Route: IM; Site: left gluteus; ll1 12:04 Follow up: Response: No adverse reaction; Temperature is decreased; RASS: Alert and ll1 Calm (0) Medication: 10:36 VIS not applicable for this client. iw Outcome: 12:00 Discharge ordered by . ec2 12:05 Discharged to home ambulatory, ll1 12:05 Condition: stable 12:05 Discharge instructions given to patient, Instructed on discharge instructions, follow up and referral plans. Demonstrated understanding of instructions, follow-up care, 12:06 Patient left the ED. ll1 Signatures: Nicki Garcia, RN MARE iw Gutierrez Palafox RN RN ll1 Yumiko Biggs, TEMPORARY DATA ENTRY CLERK TEMPORARY DATA ENTRY CLERK 7 Carmen Lynch Edwin, MD MD ec2
[2023-09-01 12:21] VITALS: BP 151/62; TEMP 97.9; O2SAT 100
== END 2023-09-01 12:06 | disposition home or self-care (01) ==
LOC: ER 10:22
DX: B34.9 Viral infection, unspecified (principal); I10 Essential (primary) hypertension; Z11.52 Encounter for screening for COVID-19; Z88.5 Allergy status to narcotic agent; Z88.8 Allergy status to other drugs, medicaments and biological substances; Z91.040 Latex allergy status
CPT/HCPCS: 87070; 87081; 96372; 99284

== ENCOUNTER → 2023-10-21 | Emergency (ER) | payer OTHER ==
--- OUTSIDE RECORDS SUMMARY | 2023-10-21 12:38 | XMS REPORT | Continuity of Care Document ---
Author Name Unknown Address [address] [facility] [address] [place] [address] [facility] Address [address] [facility] [address] [place] [address] Care Team Providers Care Lead Supply Worker Name Role Phone Marleny Floyd Primary Care Physician [phone] TOREY WHYTE Attending Clinician Unavailable MIRTA CORREA Attending Clinician Unavail able Cj Shields Attending Clinician [phone] Unknown, Attending Attending Clinician Unavailab CJ Cheng Attending Clinician Unavailable eRgla Solano Attending Clinician [phone] REGLA BAEZ Attending Clinician Unavailab Mirta Hale Attending Clinician + Doctor Unassigned, Carrington Attending Clinician U tere Hernandez RN, Jenniffer Ramos Attending Clinician UnaLatonia Nesbitt Attending Clinician [phone] Bello Arango Attending Clinician [phone] NANNETTE JUAN Attending Clinician Unavailable Nannette Juan MD Attending Clinician [phone] TOREY CESAR Attending Clinician Unavailable Torey Cesar PA-C Attending Clinician [phone] BLELO KURTZ Attending Clinician Unavailable LOTTIE GARVIN Attending Clinician Unavailable Lottie Garvin MD Attending Clinician [phone] Casie Whipple Attending Clinician UnaHarjit Balderas DO Attending Clinician [phone] Torey Whyte MD Attending Clinician [phone] Bishop GARVEY, Ashley Attending Clinician Unavailab Mirza Batista MD Attending Clinician [phone] Only, Adc Test Attending Clinician Unavailable RUEL IQBAL Attending Clinician Unavailable Lab, [facility] Attending Clinician Unavailable CASIE ORTEGA Attending Clinician Unavailab KAMI Castano Attending Clinician UnavailKami Llamas MD Attending Clinician [phone] JOHN RIVERA Attending Clinician Unavailable John Arenas Attending Clinician [phone] Pob, [facility] Main Attending Clinician UnavailHaja Morejon DO Attending Clinician [phone] TOREY WHYTE Admitting Clinician Unavailable LOTTIE GARVIN Admitting Clinician Unavailable Torey Whyte MD Admitting Clinician [phone] KAMI BERNARD Admitting Clinician Unavailron valencia Payers Payer Name Policy Type Policy Number Effective Date Expirati on Date Source [facility] PLUS [id number] 2012 00:00:00 Problems Condition Name Condition Details Condition Category Status Onset Date Resolution Date Last Treatment Date Treating Clinician Comments Source Encounter for contracept toñito management , unspecifie d type Encounter for contracept toñito management , unspecifie d type Disease Active 01-27 00:00: 00 [facility] Encounter for contracept toñito management , unspecifie d type Encounter for contracept toñito management , unspecifie d type Disease Active 01-27 00:00: 00 [facility] History of bilateral tubal ligation History of bilateral tubal ligation Disease Active 01-27 00:00: 00 [facility] Morbid obesity Morbid obesity Disease Active 01-27 00:00: 00 [facility] BMI 50.0-59.9, adult BMI 50.0-59.9, adult Disease Active 4-03 00:00: 00 [facility] Research study patient Research study patient Disease Active 12-12 00:00: 00 Overview: Formattin g of this note is different from the original. Patient is in the HCTZ study IRB # [id number] y questions please contact:Rachel Manley MD [phone] Hightower MD [phone] Frias MD [phone] facts Patient randomize d after delivery if they met inclusion criteria a nd accepted Medicati on comes from [facility] not pharmacy, [facility] Phone Number Ext. [phone] or cell [phone] Patient can start meds as soon as they tolerate PO One tab per day of either placebo or HCTZ Medicati on stays with patient Medicati on will appear on DEC, Nurses need to randy as given (No barcode) Medicati on needs to counted prior to discharge by research head orthopedic team physician All follow ups need to be on POD or PP day # 14 or more Patient needs to be reminded to bring their left over medicatio n and bottle back to their visit [facility] needs to be notified at time of discharge Please contact Dr. Manley with any Questions [facility] Pain pelvic Pain pelvic Disease Active 12-14 00:00: 00 [facility] Depression Depression Disease Active 05-18 00:00: 00 [facility] Asthma Asthma Disease Active 05-18 00:00: 00 Overview: Formattin g of this note might be different from the original. ICD10 Diagnosis Term Treasury Assistant Utility [facility] Allergies, Adverse Reactions, Alerts Allergy Name Allergy Type Status Severity Reaction(s) Onset Date Inactive Date Treating Clinician Comments Source Morphine Drug Allergy Active Itching 2019-10 00:00: 00 [facility] MORPHINE DRUG INGREDI Active Low ITCHING 2019-10 00:00: 00 [facility] Latex Propensi ty to adverse reaction s Active Rash 12-11 00:00: 00 [facility] LATEX DRUG INGREDI Active Rash 12-11 00:00: 00 [facility] Social History Social Habit Start Date Stop Date Quantity Comments Source [facility] Exposure to SARS-CoV-2 (event) 2023-02-25 00:00:00 2023-03-07 11:03:00 Not sure [facility] History of Social function 2022-07-17 00:00:00 2022-07-17 00:00:00 [facility] Alcohol intake 2019-12-23 00:00:00 2019-12-23 00:00:00 0 /d [facility] Alcohol Comment 2014-05-18 00:00:00 2014-05-18 00:00:00 rarely [facility] Tobacco use and exposure 2014-05-18 00:00:00 2014-05-18 00:00:00 Smokeless tobacco non-user [facility] Sex Assigned At 1985 00:00:00 1985 00:00:00 [facility] Smoking Status Start Date Stop Date Source Never smoked tobacco [facility] Medications Ordered Medication Name Filled Medication Name Start Date Stop Date Current Medication? Ordering Clinician Indication Dosage Frequency Signature (SIG) Comments Components Source benzonatate 200 mg capsule 03-07 00:00: 00 03-18 04:59 :00 No [id number] 200mg Take 1 capsule by mouth 3 (three) times daily as needed for Cough for up to 10 days. [facility] fluconazole (DIFLUCAN) 150 mg tablet 03-07 00:00: 00 03-08 04:59 :00 No [id number] 150mg Take 1 tablet by mouth once now for 1 dose. [facility] metroNIDAZO LE 500 mg tablet 02-25 00:00: 00 02-26 04:59 :00 No [id number] 2000mg Take 4 tablets by mouth once now for 1 dose. [facility] metroNIDAZO LE 500 mg tablet 02-25 00:00: 00 02-26 04:59 :00 No [id number] 2000mg Take 4 tablets by mouth once now for 1 dose. [facility] metroNIDAZO LE 500 mg tablet 0 02-25 00:00: 00 02-26 04:59 :00 No [id number] 2000mg Take 4 tablets by mouth once now for 1 dose. [facility] metroNIDAZO LE 500 mg tablet 0 02-25 00:00: 00 02-26 04:59 :00 No [id number] 2000mg Take 4 tablets by mouth once now for 1 dose. [facility] ampicillin 500 mg capsule 0 5 00:00: 00 03-07 04:59 :00 No [id number] 500mg Take 1 capsule by mouth 4 (four) times daily for 10 days. [facility] ampicillin 500 mg capsule 0 02-24 00:00: 00 03-07 04:59 :00 No [id number] 500mg Take 1 capsule by mouth 4 (four) times daily for 10 days. [facility] ampicillin 500 mg capsule 2022-0 5 00:00: 00 03-07 04:59 :00 No [id number] 500mg Take 1 capsule by mouth 4 (four) times daily for 10 days. [facility] ampicillin 500 mg capsule 0 5 00:00: 00 03-07 04:59 :00 No [id number] 500mg Take 1 capsule by mouth 4 (four) times daily for 10 days. [facility] ampicillin 500 mg capsule 2022-0 02-24 00:00: 00 03-07 04:59 :00 No [id number] 500mg Take 1 capsule by mouth 4 (four) times daily for 10 days. [facility] ampicillin 500 mg capsule 2022-0 5 00:00: 00 03-07 04:59 :00 No [id number] 500mg Take 1 capsule by mouth 4 (four) times daily for 10 days. [facility] fluconazole (DIFLUCAN) 150 mg tablet 28 00:00: 00 02-22 04:59 :00 No [id number] 150mg Take 1 tablet by mouth once now for 1 dose. [facility] fluconazole (DIFLUCAN) 150 mg tablet 02-21 00:00: 00 02-22 04:59 :00 No [id number] 150mg Take 1 tablet by mouth once now for 1 dose. [facility]UC[facility] 150 mg tablet 02-21 00:00: 00 02-22 04:59 :00 No [id number] 150mg Take 1 tablet by mouth once now for 1 dose. [facility] cetirizine (ZYRTEC) 10 mg tablet 11-24 00:00: 00 Yes [id number] 10mg Take 1 tablet by mouth in the morning. [facility] fluconazole (DIFLUCAN) 150 mg tablet 11-24 00:00: 00 Yes [id number] Take 1 tab by mouth now and repeat in 3 days [facility] Nebulizer Accessories (ADULT AEROSOL MASK) [facility] 11-24 00:00: 00 Yes [id number] Use as directed [facility] cetirizine (ZYRTEC) 10 mg tablet 11-24 00:00: 00 Yes [id number] 10mg Take 1 tablet by mouth in the morning. [facility] fluconazole (DIFLUCAN) 150 mg tablet 11-24 00:00: 00 Yes [id number] Take 1 tab by mouth now and repeat in 3 days [facility] Nebulizer Accessories (ADULT AEROSOL MASK) [facility] 11-24 00:00: 00 Yes [id number] Use as directed [facility] cetirizine (ZYRTEC) 10 mg tablet 11-24 00:00: 00 Yes [id number] 10mg Take 1 tablet by mouth in the morning. [facility] fluconazole (DIFLUCAN) 150 mg tablet 11-24 00:00: 00 Yes [id number] Take 1 tab by mouth now and repeat in 3 days [facility] Nebulizer Accessories (ADULT AEROSOL MASK) [facility] 11-24 00:00: 00 Yes [id number] Use as directed [facility] cetirizine (ZYRTEC) 10 mg tablet 11-24 00:00: 00 Yes [id number] 10mg Take 1 tablet by mouth in the morning. [facility] fluconazole (DIFLUCAN) 150 mg tablet 11-24 00:00: 00 Yes [id number] Take 1 tab by mouth now and repeat in 3 days [facility] Nebul[facility] Accessories (ADULT AEROSOL MASK) [facility] 11-24 00:00: 00 Yes [id number] Use as directed [facility] cetirizine (ZYRTEC) 10 mg tablet 11-24 00:00: 00 Yes [id number] 10mg Take 1 tablet by mouth in the morning. [facility] fluconazole (DIFLUCAN) 150 mg tablet 11-24 00:00: 00 Yes [id number] Take 1 tab by mouth now and repeat in 3 days [facility] Nebulizer Accessories (ADULT AEROSOL MASK) [facility] 11-24 00:00: 00 Yes [id number] Use as directed [facility] cetirizine (ZYRTEC) 10 mg tablet 11-24 00:00: 00 Yes [id number] 10mg Take 1 tablet by mouth in the morning. [facility] fluconazole (DIFLUCAN) 150 mg tablet 11-24 00:00: 00 Yes [id number] Take 1 tab by mouth now and repeat in 3 days [facility] Nebulizer Accessories (ADULT AEROSOL MASK) [facility] 11-24 00:00: 00 Yes [id number] Use as directed [facility] cetirizine (ZYRTEC) 10 mg tablet 11-24 00:00: 00 Yes [id number] 10mg Take 1 tablet by mouth in the morning. [facility] fluconazole (DIFLUCAN) 150 mg tablet 11-24 00:00: 00 Yes [id number] Take 1 tab by mouth now and repeat in 3 days [facility] Nebulizer Accessories (ADULT AEROSOL MASK) [facility] 11-24 00:00: 00 Yes [id number] Use as directed [facility] cetirizine (ZYRTEC) 10 mg tablet 11-24 00:00: 00 Yes [id number] 10mg Take 1 tablet by mouth in the morning. [facility] fluconazole (DIFLUCAN) 150 mg tablet 11-24 00:00: 00 Yes [id number] Take 1 tab by mouth now and repeat in 3 days [facility] Nebulizer Accessories (ADULT AEROSOL MASK) [facility] 11-24 00:00: 00 Yes [id number] Use as directed [facility] cetirizine (ZYRTEC) 10 mg tablet 11-24 00:00: 00 Yes [id number] 10mg Take 1 tablet by mouth in the morning. [facility] fluconazole (DIFLUCAN) 150 mg tablet 11-24 00:00: 00 Yes [id number] Take 1 tab by mouth now and repeat in 3 days [facility] Nebulizer Accessories (ADULT AEROSOL MASK) [facility] 11-24 00:00: 00 Yes [id number] Use as directed [facility] cetirizine (ZYRTEC) 10 mg tablet 11-24 00:00: 00 Yes [id number] 10mg Take 1 tablet by mouth in the morning. [facility] fluconazole (DIFLUCAN) 150 mg tablet 11-24 00:00: 00 Yes [id number] Take 1 tab by mouth now and repeat in 3 days [facility] Nebulizer Accessories (ADULT AEROSOL MASK) [facility] 11-24 00:00: 00 Yes [id number] Use as directed [facility] cetirizine (ZYRTEC) 10 mg tablet 11-24 00:00: 00 Yes [id number] 10mg Take 1 tablet by mouth in the morning. [facility] fluconazole (DIFLUCAN) 150 mg tablet 11-24 00:00: 00 Yes [id number] Take 1 tab by mouth now and repeat in 3 days [facility] Nebulizer Accessories (ADULT AEROSOL MASK) [facility] 11-24 00:00: 00 Yes [id number] Use as directed [facility] cetirizine (ZYRTEC) 10 mg tablet 11-24 00:00: 00 Yes [id number] 10mg Take 1 tablet by mouth in the morning. [facility] fluconazole (DIFLUCAN) 150 mg tablet 11-24 00:00: 00 Yes [id number] Take 1 tab by mouth now and repeat in 3 days [facility] Neb[facility] Accessories (ADULT AEROSOL MASK) [facility] 11-24 00:00: 00 Yes [id number] Use as directed [facility] cetirizine (ZYRTEC) 10 mg tablet 11-24 00:00: 00 Yes [id number] 10mg Take 1 tablet by mouth in the morning. [facility] fluconazole (DIFLUCAN) 150 mg tablet 11-24 00:00: 00 Yes [id number] Take 1 tab by mouth now and repeat in 3 days [facility] Nebulizer Accessories (ADULT AEROSOL MASK) [facility] 11-24 00:00: 00 Yes [id number] Use as directed [facility] cetirizine (ZYRTEC) 10 mg tablet 11-24 00:00: 00 Yes [id number] 10mg Take 1 tablet by mouth in the morning. [facility] fluconazole (DIFLUCAN) 150 mg tablet 11-24 00:00: 00 Yes [id number] Take 1 tab by mouth now and repeat in 3 days [facility] Nebulizer Accessories (ADULT AEROSOL MASK) [facility] 11-24 00:00: 00 Yes [id number] Use as directed [facility] cetirizine (ZYRTEC) 10 mg tablet 11-24 00:00: 00 Yes [id number] 10mg Take 1 tablet by mouth in the morning. [facility] fluconazole (DIFLUCAN) 150 mg tablet 11-24 00:00: 00 Yes [id number] Take 1 tab by mouth now and repeat in 3 days [facility] Nebulizer Accessories (ADULT AEROSOL MASK) [facility] 11-24 00:00: 00 Yes [id number] Use as directed [facility] cetirizine (ZYRTEC) 10 mg tablet 11-24 00:00: 00 Yes [id number] 10mg Take 1 tablet by mouth in the morning. [facility] fluconazole (DIFLUCAN) 150 mg tablet 11-24 00:00: 00 Yes [id number] Take 1 tab by mouth now and repeat in 3 days [facility] Nebulizer Accessories (ADULT AEROSOL MASK) [facility] 11-24 00:00: 00 Yes [id number] Use as directed [facility] cetirizine (ZYRTEC) 10 mg tablet 11-24 00:00: 00 Yes [id number] 10mg Take 1 tablet by mouth in the morning. [facility] fluconazole (DIFLUCAN) 150 mg tablet 11-24 00:00: 00 Yes [id number] Take 1 tab by mouth now and repeat in 3 days [facility] Nebulizer Accessories (ADULT AEROSOL MASK) [facility] 11-24 00:00: 00 Yes [id number] Use as directed [facility] cetirizine (ZYRTEC) 10 mg tablet 11-24 00:00: 00 Yes [id number] 10mg Take 1 tablet by mouth in the morning. [facility] fluconazole (DIFLUCAN) 150 mg tablet 11-24 00:00: 00 Yes [id number] Take 1 tab by mouth now and repeat in 3 days [facility] Nebulizer Accessories (ADULT AEROSOL MASK) [facility] 11-24 00:00: 00 Yes [id number] Use as directed [facility] albuterol 2.5 mg/0.5 mL nebulizer solution 11-24 00:00: 00 12-25 05:59 :00 No [id number] 2.5mg Inhale 0.5 mL every 6 (six) hours as needed for Wheezing for up to 30 days. [facility] amoxicillin -clavulanat e (AUGMENTIN) [id number] mg per tablet 1-29 00:00: 00 12-05 05:59 :00 No [id number] 1{tbl} Take 1 tablet by mouth in the morning and 1 tablet in the evening. Do all this for 10 days. [facility] sulfamethox azole-trime thoprim (BACTRIM DS) 800-160 mg per tablet 07-20 00:00: 00 07-28 04:59 :00 No [id number] 1{tbl} Take 1 tablet by mouth in the morning and 1 tablet in the evening. Do all this for 7 days. [facility] ondansetron 4 mg disintegrat ing tablet 07-17 00:00: 00 Yes [id number] 4mg Take 1 tablet by mouth every 8 (eight) hours as needed for Nausea and Vomiting (N/V). [facility] cetirizine (ZYRTEC) 10 mg tablet 07-17 00:00: 00 Yes [id number] 10mg Take 1 tablet by mouth in the morning. [facility] ondansetron 4 mg disintegrat ing tablet 07-17 00:00: 00 Yes [id number] 4mg Take 1 tablet by mouth every 8 (eight) hours as needed for Nausea and Vomiting (N/V). [facility] cetirizine (ZYRTEC) 10 mg tablet 07-17 00:00: 00 Yes [id number] 10mg Take 1 tablet by mouth in the morning. [facility] ondansetron 4 mg disintegrat ing tablet 07-17 00:00: 00 Yes [id number] 4mg Take 1 tablet by mouth every 8 (eight) hours as needed for Nausea and Vomiting (N/V). [facility] cetirizine (ZYRTEC) 10 mg tablet 07-17 00:00: 00 Yes [id number] 10mg Take 1 tablet by mouth in the morning. [facility] ondansetron 4 mg disintegrat ing tablet 07-17 00:00: 00 Yes [id number] 4mg Take 1 tablet by mouth every 8 (eight) hours as needed for Nausea and Vomiting (N/V). [facility] ondansetron 4 mg disintegrat ing tablet 07-17 00:00: 00 Yes [id number] 4mg Take 1 tablet by mouth every 8 (eight) hours as needed for Nausea and Vomiting (N/V). [facility] ondansetron 4 mg disintegrat ing tablet 07-17 00:00: 00 Yes [id number] 4mg Take 1 tablet by mouth every 8 (eight) hours as needed for Nausea and Vomiting (N/V). [facility] ondansetron 4 mg disintegrat ing tablet 07-17 00:00: 00 Yes [id number] 4mg Take 1 tablet by mouth every 8 (eight) hours as needed for Nausea and Vomiting (N/V). [facility] ondansetron 4 mg disintegrat ing tablet 07-17 00:00: 00 Yes [id number] 4mg Take 1 tablet by mouth every 8 (eight) hours as needed for Nausea and Vomiting (N/V). [facility] ondansetron 4 mg disintegrat ing tablet 07-17 00:00: 00 02-21 00:00 :00 No [id number] 4mg Take 1 tablet by mouth every 8 (eight) hours as needed for Nausea and Vomiting (N/V). [facility] ondansetron 4 mg disintegrat ing tablet 07-17 00:00: 00 02-21 00:00 :00 No [id number] 4mg Take 1 tablet by mouth every 8 (eight) hours as needed for Nausea and Vomiting (N/V). [facility] ondansetron 4 mg disintegrat ing tablet 07-17 00:00: 00 02-21 00:00 :00 No [id number] 4mg Take 1 tablet by mouth every 8 (eight) hours as needed for Nausea and Vomiting (N/V). [facility] cetirizine (ZYRTEC) 10 mg tablet 07-17 00:00: 00 11-24 00:00 :00 No [id number] 10mg Take 1 tablet by mouth in the morning. [facility] polymyxin B sulf-trimet hoprim 10,000 unit- 1 mg/mL ophthalmic drops 07-17 00:00: 00 07-25 04:59 :00 No [id number] 1[drp] Place 1 Drop in both eyes 4 (four) times daily for 7 days. [facility] polymyxin B sulf-trimet hoprim 10,000 unit- 1 mg/mL ophthalmic drops 07-17 00:00: 00 07-25 04:59 :00 No [id number] 1[drp] Place 1 Drop in both eyes 4 (four) times daily for 7 days. [facility] fluconazole (DIFLUCAN) 150 mg tablet 07-17 00:00: 00 07-18 04:59 :00 No [id number] 150mg Take 1 tablet by mouth once now for 1 dose. [facility] amoxicillin -clavulanat e (AUGMENTIN) 875-125 mg per tablet 8-17 00:00: 00 06-20 04:59 :00 No [id number] 1{tbl} Take 1 tablet by mouth in the morning and 1 tablet in the evening. Do all this for 7 days. [facility] benzonatate 200 mg capsule 04-14 00:00: 00 04-25 04:59 :00 No [id number] 200mg Take 1 capsule by mouth 3 (three) times daily as needed for Cough for up to 10 days. [facility] amoxicillin -clavulanat e (AUGMENTIN) 875-125 mg per tablet 19 00:00: 00 04-22 04:59 :00 No [id number] 1{tbl} Take 1 tablet by mouth 2 (two) times daily for 7 days. [facility] amoxicillin -clavulanat e 875-125 mg per tablet 6-08 00:00: 00 04-11 04:59 :00 No [id number] 1{tbl} Take 1 tablet by mouth 2 (two) times daily for 7 days. [facility] ibuprofen 600 mg tablet 03-19 00:00: 00 Yes [id number] 100 600mg Take 1 tablet by mouth every 6 (six) hours as needed for Pain (scale 4-6). [facility] ibuprofen 600 mg tablet 03-19 00:00: 00 Yes [id number] 100 600mg Take 1 tablet by mouth every 6 (six) hours as needed for Pain (scale 4-6). [facility] ibuprofen 600 mg tablet 03-19 00:00: 00 Yes [id number] 100 600mg Take 1 tablet by mouth every 6 (six) hours as needed for Pain (scale 4-6). [facility] ibuprofen 600 mg tablet 03-19 00:00: 00 Yes [id number] 100 600mg Take 1 tablet by mouth every 6 (six) hours as needed for Pain (scale 4-6). [facility] ibuprofen 600 mg tablet 03-19 00:00: 00 07-17 00:00 :00 No [id number] 100 600mg Take 1 tablet by mouth every 6 (six) hours as needed for Pain (scale 4-6). [facility] guaiFENesin 400 mg tablet 2020-10 00:00: 00 Yes [id number] 400mg Take 1 tablet by mouth every 4 (four) hours as needed for Cough. [facility] ondansetron 4 mg disintegrat ing tablet 2020-10 00:00: 00 Yes [id number] 4mg Take 1 tablet by mouth every 8 (eight) hours as needed for Nausea and Vomiting (N/V). [facility] albuterol 90 mcg/actuati on inhaler 2020-10 00:00: 00 Yes [id number] 2{puff} Inhale 2 Puffs every 6 (six) hours as needed for Wheezing or Shortness of Breath. [facility] budesonide- formoteroL (SYMBICORT) 160-4.5 mcg/actuati on inhaler 2020-10 00:00: 00 Yes [id number] 2{puff} Inhale 2 Puffs 2 (two) times daily. [facility] guaiFENesin 400 mg tablet 2020-10 00:00: 00 Yes [id number] 400mg Take 1 tablet by mouth every 4 (four) hours as needed for Cough. [facility] ondansetron 4 mg disintegrat ing tablet 2020-10 00:00: 00 Yes [id number] 4mg Take 1 tablet by mouth every 8 (eight) hours as needed for Nausea and Vomiting (N/V). [facility] albuterol 90 mcg/actuati on inhaler 2020-10 00:00: 00 Yes [id number] 2{puff} Inhale 2 Puffs every 6 (six) hours as needed for Wheezing or Shortness of Breath. [facility] budesonide- formoteroL (SYMBICORT) 160-4.5 mcg/actuati on inhaler 2020-10 00:00: 00 Yes [id number] 2{puff} Inhale 2 Puffs 2 (two) times daily. [facility] ondansetron 4 mg disintegrat ing tablet 2020-10 00:00: 00 Yes [id number] 4mg Take 1 tablet by mouth every 8 (eight) hours as needed for Nausea and Vomiting (N/V). [facility] albuterol 90 mcg/actuati on inhaler 2020-10 00:00: 00 Yes [id number] 2{puff} Inhale 2 Puffs every 6 (six) hours as needed for Wheezing or Shortness of Breath. [facility] budesonide- formoteroL (SYMBICORT) 160-4.5 mcg/actuati on inhaler 2020-10 00:00: 00 Yes [id number] 2{puff} Inhale 2 Puffs 2 (two) times daily. [facility] [facility] ondansetron 4 mg disintegrat ing tablet 2020-10 00:00: 00 Yes [id number] 4mg Take 1 tablet by mouth every 8 (eight) hours as needed for Nausea and Vomiting (N/V). [facility] albuterol 90 mcg/actuati on inhaler 2020-10 2 00:00: 00 Yes [id number] 2{puff} Inhale 2 Puffs every 6 (six) hours as needed for Wheezing or Shortness of Breath. [facility] budesonide- formoteroL (SYMBICORT) 160-4.5 mcg/actuati on inhaler 2020-10 2 00:00: 00 Yes [id number] 2{puff} Inhale 2 Puffs 2 (two) times daily. [facility] ondansetron 4 mg disintegrat ing tablet 2020-10 00:00: 00 Yes [id number] 4mg Take 1 tablet by mouth every 8 (eight) hours as needed for Nausea and Vomiting (N/V). [facility] albuterol 90 mcg/actuati on inhaler 2020-10 00:00: 00 Yes [id number] 2{puff} Inhale 2 Puffs every 6 (six) hours as needed for Wheezing or Shortness of Breath. [facility] budesonide- formoteroL (SYMBICORT) 160-4.5 mcg/actuati on inhaler 2020-10 00:00: 00 Yes [id number] 2{puff} Inhale 2 Puffs 2 (two) times daily. [facility] ondansetron 4 mg disintegrat ing tablet 2020-10 00:00: 00 Yes [id number] 4mg Take 1 tablet by mouth every 8 (eight) hours as needed for Nausea and Vomiting (N/V). [facility] albuterol 90 mcg/actuati on inhaler 2020-10 2 00:00: 00 Yes [id number] 2{puff} Inhale 2 Puffs every 6 (six) hours as needed for Wheezing or Shortness of Breath. [facility] budesonide- formoteroL (SYMBICORT) 160-4.5 mcg/actuati on inhaler 2020-10 2 00:00: 00 Yes [id number] 2{puff} Inhale 2 Puffs 2 (two) times daily. [facility] ondansetron 4 mg disintegrat ing tablet 2020-10 00:00: 00 Yes [id number] 4mg Take 1 tablet by mouth every 8 (eight) hours as needed for Nausea and Vomiting (N/V). [facility] albuterol 90 mcg/actuati on inhaler 2020-10 00:00: 00 Yes [id number] 2{puff} Inhale 2 Puffs every 6 (six) hours as needed for Wheezing or Shortness of Breath. [facility] budesonide- formoteroL (SYMBICORT) 160-4.5 mcg/actuati on inhaler 2020-10 00:00: 00 Yes [id number] 2{puff} Inhale 2 Puffs 2 (two) times daily. [facility] ondansetron 4 mg disintegrat ing tablet 2020-10 00:00: 00 Yes [id number] 4mg Take 1 tablet by mouth every 8 (eight) hours as needed for Nausea and Vomiting (N/V). [facility] albuterol 90 mcg/actuati on inhaler 2020-10 00:00: 00 Yes [id number] 2{puff} Inhale 2 Puffs every 6 (six) hours as needed for Wheezing or Shortness of Breath. [facility] budesonide- formoteroL (SYMBICORT) 160-4.5 mcg/actuati on inhaler 2020-10 00:00: 00 Yes [id number] 2{puff} Inhale 2 Puffs 2 (two) times daily. [facility] ondansetron 4 mg disintegrat ing tablet 2020-10 00:00: 00 Yes [id number] 4mg Take 1 tablet by mouth every 8 (eight) hours as needed for Nausea and Vomiting (N/V). [facility] albuterol 90 mcg/actuati on inhaler 2020-10 00:00: 00 Yes [id number] 2{puff} Inhale 2 Puffs every 6 (six) hours as needed for Wheezing or Shortness of Breath. [facility] budesonide- formoteroL (SYMBICORT) 160-4.5 mcg/actuati on inhaler 2020-10 2 00:00: 00 Yes [id number] 2{puff} Inhale 2 Puffs 2 (two) times daily. [facility] ondansetron 4 mg disintegrat ing tablet 2020-10 00:00: 00 Yes [id number] 4mg Take 1 tablet by mouth every 8 (eight) hours as needed for Nausea and Vomiting (N/V). [facility] albuterol 90 mcg/actuati on inhaler 2020-10 00:00: 00 Yes [id number] 2{puff} Inhale 2 Puffs every 6 (six) hours as needed for Wheezing or Shortness of Breath. [facility] budesonide- formoteroL (SYMBICORT) 160-4.5 mcg/actuati on inhaler 2020-10 00:00: 00 Yes [id number] 2{puff} Inhale 2 Puffs 2 (two) times daily. [facility] albuterol 90 mcg/actuati on inhaler 2020-10 00:00: 00 Yes [id number] 2{puff} Inhale 2 Puffs every 6 (six) hours as needed for Wheezing or Shortness of Breath. [facility] budesonide- formoteroL (SYMBICORT) 160-4.5 mcg/actuati on inhaler 2020-10 00:00: 00 Yes [id number] 2{puff} Inhale 2 Puffs 2 (two) times daily. [facility] albuterol 90 mcg/actuati on inhaler 2020-10 00:00: 00 Yes [id number] 2{puff} Inhale 2 Puffs every 6 (six) hours as needed for Wheezing or Shortness of Breath. [facility] budesonide- formoteroL (SYMBICORT) 160-4.5 mcg/actuati on inhaler 2020-10 00:00: 00 Yes [id number] 2{puff} Inhale 2 Puffs 2 (two) times daily. [facility] albuterol 90 mcg/actuati on inhaler 2020-10 2- 00:00: 00 Yes [id number] 2{puff} Inhale 2 Puffs every 6 (six) hours as needed for Wheezing or Shortness of Breath. [facility] budesonide- formoteroL (SYMBICORT) 160-4.5 mcg/actuati on inhaler 2020-10 2- 00:00: 00 Yes [id number] 2{puff} Inhale 2 Puffs 2 (two) times daily. [facility] albuterol 90 mcg/actuati on inhaler 2020-10 2- 00:00: 00 Yes [id number] 2{puff} Inhale 2 Puffs every 6 (six) hours as needed for Wheezing or Shortness of Breath. [facility] budesonide- formoteroL (SYMBICORT) 160-4.5 mcg/actuati on inhaler 2020-10 2- 00:00: 00 Yes [id number] 2{puff} Inhale 2 Puffs 2 (two) times daily. [facility] albuterol 90 mcg/actuati on inhaler 2020-10 2 00:00: 00 Yes [id number] 2{puff} Inhale 2 Puffs every 6 (six) hours as needed for Wheezing or Shortness of Breath. [facility] budesonide- formoteroL (SYMBICORT) 160-4.5 mcg/actuati on inhaler 2020-10 2- 00:00: 00 Yes [id number] 2{puff} Inhale 2 Puffs 2 (two) times daily. [facility] albuterol 90 mcg/actuati on inhaler 2020-10 2- 00:00: 00 Yes [id number] 2{puff} Inhale 2 Puffs every 6 (six) hours as needed for Wheezing or Shortness of Breath. [facility] budesonide- formoteroL (SYMBICORT) 160-4.5 mcg/actuati on inhaler 2020-10 2- 00:00: 00 Yes [id number] 2{puff} Inhale 2 Puffs 2 (two) times daily. [facility] albuterol 90 mcg/actuati on inhaler 2020-10 2- 00:00: 00 Yes [id number] 2{puff} Inhale 2 Puffs every 6 (six) hours as needed for Wheezing or Shortness of Breath. [facility] budesonide- formoteroL (SYMBICORT) 160-4.5 mcg/actuati on inhaler 2020-10 2- 00:00: 00 Yes [id number] 2{puff} Inhale 2 Puffs 2 (two) times daily. [facility] albuterol 90 mcg/actuati on inhaler 2020-10 2 00:00: 00 Yes [id number] 2{puff} Inhale 2 Puffs every 6 (six) hours as needed for Wheezing or Shortness of Breath. [facility] budesonide- formoteroL (SYMBICORT) 160-4.5 mcg/actuati on inhaler 2020-10 2 00:00: 00 Yes [id number] 2{puff} Inhale 2 Puffs 2 (two) times daily. [facility] albuterol 90 mcg/actuati on inhaler 2020-10 2 00:00: 00 Yes [id number] 2{puff} Inhale 2 Puffs every 6 (six) hours as needed for Wheezing or Shortness of Breath. [facility] budesonide- formoteroL (SYMBICORT) 160-4.5 mcg/actuati on inhaler 2020-10 2- 00:00: 00 Yes [id number] 2{puff} Inhale 2 Puffs 2 (two) times daily. [facility] albuterol 90 mcg/actuati on inhaler 2020-10 2- 00:00: 00 Yes [id number] 2{puff} Inhale 2 Puffs every 6 (six) hours as needed for Wheezing or Shortness of Breath. [facility] budesonide- formoteroL (SYMBICORT) 160-4.5 mcg/actuati on inhaler 2020-10 2- 00:00: 00 Yes [id number] 2{puff} Inhale 2 Puffs 2 (two) times daily. [facility] albuterol 90 mcg/actuati on inhaler 2020-10 2- 00:00: 00 Yes [id number] 2{puff} Inhale 2 Puffs every 6 (six) hours as needed for Wheezing or Shortness of Breath. [facility] budesonide- formoteroL (SYMBICORT) 160-4.5 mcg/actuati on inhaler 2020-10 2- 00:00: 00 Yes [id number] 2{puff} Inhale 2 Puffs 2 (two) times daily. [facility] albuterol 90 mcg/actuati on inhaler 2020-10 2 00:00: 00 Yes [id number] 2{puff} Inhale 2 Puffs every 6 (six) hours as needed for Wheezing or Shortness of Breath. [facility] budesonide- formoteroL (SYMBICORT) 160-4.5 mcg/actuati on inhaler 2020-10 2 00:00: 00 Yes [id number] 2{puff} Inhale 2 Puffs 2 (two) times daily. [facility] albuterol 90 mcg/actuati on inhaler 2020-10 2 00:00: 00 Yes [id number] 2{puff} Inhale 2 Puffs every 6 (six) hours as needed for Wheezing or Shortness of Breath. [facility] budesonide- formoteroL (SYMBICORT) 160-4.5 mcg/actuati on inhaler 2020-10 2- 00:00: 00 Yes [id number] 2{puff} Inhale 2 Puffs 2 (two) times daily. [facility] albuterol 90 mcg/actuati on inhaler 2020-10 2- 00:00: 00 Yes [id number] 2{puff} Inhale 2 Puffs every 6 (six) hours as needed for Wheezing or Shortness of Breath. [facility] budesonide- formoteroL (SYMBICORT) 160-4.5 mcg/actuati on inhaler 2020-10 2- 00:00: 00 Yes [id number] 2{puff} Inhale 2 Puffs 2 (two) times daily. [facility] benzonatate 100 mg capsule 2020-10 00:00: 00 Yes [id number] 200mg Take 2 capsules by mouth 2 (two) times daily as needed for Cough. [facility] guaiFENesin 400 mg tablet 2020-10 00:00: 00 Yes [id number] 400mg Take 1 tablet by mouth every 4 (four) hours as needed for Cough. [facility] ondansetron 4 mg disintegrat ing tablet 2020-10 00:00: 00 Yes [id number] 4mg Take 1 tablet by mouth every 8 (eight) hours as needed for Nausea and Vomiting (N/V). [facility] albuterol 90 mcg/actuati on inhaler 2020-10 00:00: 00 Yes [id number] 2{puff} Inhale 2 Puffs every 6 (six) hours as needed for Wheezing or Shortness of Breath. [facility] budesonide- formoteroL (SYMBICORT) 160-4.5 mcg/actuati on inhaler 2020-10 00:00: 00 Yes [id number] 2{puff} Inhale 2 Puffs 2 (two) times daily. [facility] benzonatate 100 mg capsule 2020-10 00:00: 00 Yes [id number] 200mg Take 2 capsules by mouth 2 (two) times daily as needed for Cough. [facility] guaiFENesin 400 mg tablet 2020-10 00:00: 00 Yes [id number] 400mg Take 1 tablet by mouth every 4 (four) hours as needed for Cough. [facility] ondansetron 4 mg disintegrat ing tablet 2020-10 00:00: 00 Yes [id number] 4mg Take 1 tablet by mouth every 8 (eight) hours as needed for Nausea and Vomiting (N/V). [facility] albuterol 90 mcg/actuati on inhaler 2020-10 00:00: 00 Yes [id number] 2{puff} Inhale 2 Puffs every 6 (six) hours as needed for Wheezing or Shortness of Breath. [facility] budesonide- formoteroL (SYMBICORT) 160-4.5 mcg/actuati on inhaler 2020-10 00:00: 00 Yes [id number] 2{puff} Inhale 2 Puffs 2 (two) times daily. [facility] benzonatate 100 mg capsule 2020-10 00:00: 00 Yes [id number] 200mg Take 2 capsules by mouth 2 (two) times daily as needed for Cough. [facility] guaiFENesin 400 mg tablet 2020-10 00:00: 00 Yes [id number] 400mg Take 1 tablet by mouth every 4 (four) hours as needed for Cough. [facility] ondansetron 4 mg disintegrat ing tablet 2020-10 00:00: 00 Yes [id number] 4mg Take 1 tablet by mouth every 8 (eight) hours as needed for Nausea and Vomiting (N/V). [facility] albuterol 90 mcg/actuati on inhaler 2020-10 00:00: 00 Yes [id number] 2{puff} Inhale 2 Puffs every 6 (six) hours as needed for Wheezing or Shortness of Breath. [facility] budesonide- formoteroL (SYMBICORT) 160-4.5 mcg/actuati on inhaler 2020-10 00:00: 00 Yes [id number] 2{puff} Inhale 2 Puffs 2 (two) times daily. [facility] benzonatate 100 mg capsule 2020-10 00:00: 00 Yes [id number] 200mg Take 2 capsules by mouth 2 (two) times daily as needed for Cough. [facility] guaiFENesin 400 mg tablet 2020-10 00:00: 00 Yes [id number] 400mg Take 1 tablet by mouth every 4 (four) hours as needed for Cough. [facility] ondansetron 4 mg disintegrat ing tablet 2020-10 00:00: 00 Yes [id number] 4mg Take 1 tablet by mouth every 8 (eight) hours as needed for Nausea and Vomiting (N/V). [facility] albuterol 90 mcg/actuati on inhaler 2020-10 00:00: 00 Yes [id number] 2{puff} Inhale 2 Puffs every 6 (six) hours as needed for Wheezing or Shortness of Breath. [facility] budesonide- formoteroL (SYMBICORT) 160-4.5 mcg/actuati on inhaler 2020-10 00:00: 00 Yes [id number] 2{puff} Inhale 2 Puffs 2 (two) times daily. [facility] ondansetron 4 mg disintegrat ing tablet 2020-10 00:00: 00 02-21 00:00 :00 No [id number] 4mg Take 1 tablet by mouth every 8 (eight) hours as needed for Nausea and Vomiting (N/V). [facility] ondansetron 4 mg disintegrat ing tablet 2020-10 00:00: 00 02-21 00:00 :00 No [id number] 4mg Take 1 tablet by mouth every 8 (eight) hours as needed for Nausea and Vomiting (N/V). [facility] ondansetron 4 mg disintegrat ing tablet 2020-10 00:00: 00 02-21 00:00 :00 No [id number] 4mg Take 1 tablet by mouth every 8 (eight) hours as needed for Nausea and Vomiting (N/V). [facility] guaiFENesin 400 mg tablet 2020-10 00:00: 00 07-17 00:00 :00 No [id number] 400mg Take 1 tablet by mouth every 4 (four) hours as needed for Cough. [facility] benzonatate 100 mg capsule 2020-10 00:00: 00 04-14 00:00 :00 No [id number] 200mg Take 2 capsules by mouth 2 (two) times daily as needed for Cough. [facility] amoxicillin -clavulanat e (AUGMENTIN) 875-125 mg per tablet 2020-10 00:00: 00 2021- 12-14 05:59 :00 No [id number] 1{tbl} Take 1 tablet by mouth 2 (two) times daily for 7 days. [facility] proMETHazin e (PHENERGAN) 25 mg in NaCl 0.9% (NS) 50 mL IV piggyback 2019-10 21:26: 00 08-04 21:35 :00 No 25mg 25 mg, IV Piggyback, ONCE, 1 dose, Fri08/04/20 at 1630, Routine, PACU [facility] FENTanyl PF (SUBLIMAZE (PF)) injection 25 mcg 2019-10 20:54: 14 Yes 25ug 25 mcg, Slow IV Push, Q5MIN PRN, 4 doses, Starting Fri08/04/20 at 1554, Until Discontinu ed, Routine, Pain (scale 7-10), PACU [facility] ketorolac (TORADOL) injection 30 mg 2019-10 20:54: 14 08-04 21:44 :00 No 30mg 30 mg, Slow IV Push, PRN, 1 dose, Starting Fri08/04/20 at 1554, Until Discontinu ed, Routine, Pain (scale 4-6), [facility] : PACU RECOVERY [facility] ondansetron (ZOFRAN (PF)) injection 4 mg 2019-10 20:54: 14 08-04 21:01 :00 No 4mg 4 mg, Slow IV Push, PRN, 1 dose, Starting Fri08/04/20 at 1554, Until Fri08/04/20 at 1601, Routine, Nausea and Vomiting (N/V), PACU [facility] ondansetron (ZOFRAN (PF)) injection 2019-10 20:14: 00 08-04 20:54 :20 No ONCE INTRA PROCEDURE, Starting Fri08/04/20 at 1514, Until Fri08/04/20 at 1554, Routine, Intra-op [facility] bupivacaine -epinephrin e-pf (SENSORCAIN E W/EPINEPHRI NE) 0.25 %-1:200,000 injection 2019-10 20:12: 00 Yes PRN, Starting Fri08/04/20 at 1512, Until Discontinu ed, Routine, Intra-op [facility] PHENYLephri ne 1000 mcg/10 mL in 0.9% NaCl syringe 2019-10 20:05: 00 08-04 20:54 :20 No ONCE INTRA PROCEDURE, Starting Fri08/04/20 at 1505, Until Fri08/04/20 at 1554, Routine, Intra-op [facility] ePHEDrine 25 mg/5 mL (5 mg/mL) syringe 2019-10 20:00: 00 08-04 20:54 :20 No ONCE INTRA PROCEDURE, Starting Fri08/04/20 at 1500, Until Fri08/04/20 at 1554, Routine, Intra-op [facility] HYDROmorphO ne (DILAUDID) injection 2019-10 19:51: 00 08-04 20:54 :20 No ONCE INTRA PROCEDURE, Starting Fri08/04/20 at 1451, Until Fri08/04/20 at 1554, Routine, Intra-op [facility] ceFAZolin (ANCEF) injection 2019-10 19:44: 00 08-04 20:54 :20 No ONCE INTRA PROCEDURE, Starting Fri08/04/20 at 1444, Until Fri08/04/20 at 1554, ELAINE, Intra-op [facility] acetaminoph en ADULT (OFIRMEV) injection 2019-10 19:40: 00 08-04 20:54 :20 No Administer over 15 Minutes, ONCE INTRA PROCEDURE, Starting Fri08/04/20 at 1440, Until Fri08/04/20 at 1554, Routine, Intra-op [facility] propofoL IV infusion 2019-10 0 19:38: 00 08-04 20:54 :20 No ONCE INTRA PROCEDURE, Starting Fri08/04/20 at 1438, Until Fri08/04/20 at 1554, Routine, Intra-op [facility] lidocaine 1% (XYLOCAINE) 100 mg/10 mL (1 %) injection 2019-10 0 19:37: 00 08-04 20:54 :20 No ONCE INTRA PROCEDURE, Starting Fri08/04/20 at 1437, Until Fri08/04/20 at 1554, Routine, Intra-op [facility] FENTanyl PF (SUBLIMAZE (PF)) injection 2019-10 19:37: 00 08-04 20:54 :20 No ONCE INTRA PROCEDURE, Starting Fri08/04/20 at 1437, Until Fri08/04/20 at 1554, Routine, Intra-op [facility] midazolam (VERSED) injection 2019-10 19:32: 00 08-04 20:54 :20 No ONCE INTRA PROCEDURE, Starting Fri08/04/20 at 1432, Until Fri08/04/20 at 1554, Routine, Intra-op [facility] lactated ringers IV infusion 2019-10 18:28: 00 08-04 20:54 :20 No CONTINUOUS PRN, Starting Fri08/04/20 at 1328, Until Fri08/04/20 at 1554, Routine, Intra-op [facility] lactated ringers IV infusion 1,000 mL 2019-10 16:15: 00 08-04 18:29 :00 No 1000mL at 42 mL/hr, 1,000 mL, IV Infusion, ONCE, 1 dose, Fri08/04/20 at 1115, Routine, DSU Pre-op [facility] gabapentin 300 mg capsule 2019-10 00:00: 00 10-04 05:59 :00 No [id number] 300mg Take 1 capsule by mouth 3 (three) times daily for 60 days. [facility] gabapentin 300 mg capsule 2019-10 00:00: 00 10-04 05:59 :00 No [id number] 300mg Take 1 capsule by mouth 3 (three) times daily for 60 days. [facility] gabapentin 300 mg capsule 2019-10 00:00: 00 10-04 05:59 :00 No [id number] 300mg Take 1 capsule by mouth 3 (three) times daily for 60 days. [facility] HYDROcodone -acetaminop hen 5-325 mg tablet 2019-10 00:00: 08-12 04:59 :00 No [id number] 1{tbl} Take 1 tablet by mouth every 6 (six) hours as needed for Pain (scale 4-6) for up to 7 days. Indication s: acute pain [facility] ondansetron 4 mg tablet 2019-10 0-09 00:00: 00 08-12 04:59 :00 No [id number] 4mg Take 1 tablet by mouth every 8 (eight) hours as needed for Nausea and Vomiting (N/V) for up to 7 days. [facility] HYDROcodone -acetaminop hen 5-325 mg tablet 2019-10 0- 00:00: 08-12 04:59 :00 No [id number] 1{tbl} Take 1 tablet by mouth every 6 (six) hours as needed for Pain (scale 4-6) for up to 7 days. Indication s: acute pain [facility] ondansetron 4 mg tablet 2019-10 0 00:00: 00 08-12 04:59 :00 No [id number] 4mg Take 1 tablet by mouth every 8 (eight) hours as needed for Nausea and Vomiting (N/V) for up to 7 days. [facility] nystatin-tr iamcinolone cream 2020-0 8-10 00:00: 00 Yes [id number] Apply to area(s) 3 (three) times daily. [facility] nystatin-tr iamcinolone cream 2020-0 8-10 00:00: 00 Yes [id number] Apply to area(s) 3 (three) times daily. [facility] nystatin-tr iamcinolone cream 2020-0 8-10 00:00: 00 Yes [id number] Apply to area(s) 3 (three) times daily. [facility] nystatin-tr iamcinolone cream 2020-0 8-10 00:00: 00 Yes [id number] Apply to area(s) 3 (three) times daily. [facility] nystatin-tr iamcinolone cream 2020-0 8-10 00:00: 00 Yes [id number] Apply to area(s) 3 (three) times daily. [facility] nystatin-tr iamcinolone cream 2020-0 8-10 00:00: 00 Yes [id number] Apply to area(s) 3 (three) times daily. [facility] nystatin-tr iamcinolone cream 2020-0 8-10 00:00: 00 Yes [id number] Apply to area(s) 3 (three) times daily. [facility] nystatin-tr iamcinolone cream 2020-0 8-10 00:00: 00 Yes [id number] Apply to area(s) 3 (three) times daily. [facility] nystatin-tr iamcinolone cream 2020-0 8-10 00:00: 00 Yes [id number] Apply to area(s) 3 (three) times daily. [facility]-0 8-10 00:00: 00 Yes [id number] Apply to area(s) 3 (three) times daily. [facility] nystatin-tr iamcinolone cream 2020-0 8-10 00:00: 00 Yes [id number] Apply to area(s) 3 (three) times daily. [facility] nystatin-tr iamcinolone cream 2020-0 8-10 00:00: 00 Yes [id number] Apply to area(s) 3 (three) times daily. [facility] nystatin-tr iamcinolone cream 2020-0 8-10 00:00: 00 Yes [id number] Apply to area(s) 3 (three) times daily. [facility] nystatin-tr iamcinolone cream 2020-0 8-10 00:00: 00 Yes [id number] Apply to area(s) 3 (three) times daily. [facility] nystatin-tr iamcinolone cream 2020-0 8-10 00:00: 00 Yes [id number] Apply to area(s) 3 (three) times daily. [facility] nystatin-tr iamcinolone cream 2020-0 8-10 00:00: 00 Yes [id number] Apply to area(s) 3 (three) times daily. [facility] nystatin-tr iamcinolone cream 2020-0 8-10 00:00: 00 Yes [id number] Apply to area(s) 3 (three) times daily. [facility] nystatin-tr iamcinolone cream 2020-0 8-10 00:00: 00 Yes [id number] Apply to area(s) 3 (three) times daily. [facility] nystatin-tr iamcinolone cream 2020-0 8-10 00:00: 00 Yes [id number] Apply to area(s) 3 (three) times daily. [facility] nystatin-tr iamcinolone cream 2020-0 8-10 00:00: 00 Yes [id number] Apply to area(s) 3 (three) times daily. [facility] nystatin-tr iamcinolone cream 2020-0 8-10 00:00: 00 Yes [id number] Apply to area(s) 3 (three) times daily. [facility] nystatin-tr iamcinolone cream 2020-0 8-10 00:00: 00 Yes [id number] Apply to area(s) 3 (three) times daily. [facility] nystatin-tr iamcinolone cream 2020-0 8-10 00:00: 00 Yes [id number] Apply to area(s) 3 (three) times daily. [facility] nystatin-tr iamcinolone cream 2020-0 8-10 00:00: 00 Yes [id number] Apply to area(s) 3 (three) times daily. [facility] nystatin-tr iamcinolone cream 2020-0 8-10 00:00: 00 Yes [id number] Apply to area(s) 3 (three) times daily. [facility] nystatin-tr iamcinolone cream 2020-0 8-10 00:00: 00 Yes [id number] Apply to area(s) 3 (three) times daily. [facility] nystatin-tr iamcinolone cream 2020-0 8-10 00:00: 00 Yes [id number] Apply to area(s) 3 (three) times daily. [facility] nystatin-tr iamcinolone cream 2020-0 8-10 00:00: 00 Yes [id number] Apply to area(s) 3 (three) times daily. [facility] nystatin-tr iamcinolone cream 2020-0 8-10 00:00: 00 Yes [id number] Apply to area(s) 3 (three) times daily. [facility] nystatin-tr iamcinolone cream 2020-0 8-10 00:00: 00 Yes [id number] Apply to area(s) 3 (three) times daily. [facility] nystatin-tr iamcinolone cream 2020-0 8-10 00:00: 00 07-17 00:00 :00 No [id number] Apply to area(s) 3 (three) times daily. [facility] nystatin-tr iamcinolone cream 2020-0 8-10 00:00: 00 07-17 00:00 :00 No [id number] Apply to area(s) 3 (three) times daily. [facility] indomethaci n 50 mg capsule 2020-0 5-06 00:00: 00 Yes TK 1 C PO Q 6 H PRN [facility] indomethaci n 50 mg capsule 2020-0 5-06 00:00: 00 Yes TK 1 C PO Q 6 H PRN [facility] indomethaci n 50 mg capsule 2020-0 5-06 00:00: 00 Yes TK 1 C PO Q 6 H PRN [facility] indomethaci n 50 mg capsule 2020-0 5-06 00:00: 00 Yes TK 1 C PO Q 6 H PRN [facility] indomethaci n 50 mg capsule 2020-0 5-06 00:00: 00 Yes TK 1 C PO Q 6 H PRN [facility] indomethaci n 50 mg capsule 2020-0 5-06 00:00: 00 Yes TK 1 C PO Q 6 H PRN [facility] indomethaci n 50 mg capsule 2020-0 5-06 00:00: 00 Yes TK 1 C PO Q 6 H PRN [facility] indomethaci n 50 mg capsule 2020-0 5-06 00:00: 00 06-05 00:00 :00 No TK 1 C PO Q 6 H PRN [facility] indomethaci n 50 mg capsule 2019-0 03-01 00:00: 00 06-05 00:00 :00 No TK 1 C PO Q 6 H PRN [facility] indomethaci n 50 mg capsule 2019-0 03-01 00:00: 00 06-05 00:00 :00 No TK 1 C PO Q 6 H PRN [facility] PROAIR HFA 90 mcg/actuati on inhaler 2020-0 - 00:00: 00 Yes [facility] PROAIR HFA 90 mcg/actuati on inhaler 2020-0 02-02 00:00: 00 Yes [facility] PROAIR HFA 90 mcg/actuati on inhaler 2020-0 - 00:00: 00 Yes [facility] PROAIR HFA 90 mcg/actuati on inhaler 2020-0 - 00:00: 00 Yes [facility] PROAIR HFA 90 mcg/actuati on inhaler 2020-0 4- 00:00: 00 Yes [facility] PROAIR HFA 90 mcg/actuati on inhaler 2020-0 - 00:00: 00 Yes [facility] PROAIR HFA 90 mcg/actuati on inhaler 2020-0 4- 00:00: 00 Yes [facility] PROAIR HFA 90 mcg/actuati on inhaler 2020-0 4- 00:00: 00 Yes [facility] PROAIR HFA 90 mcg/actuati on inhaler 2020-0 4- 00:00: 00 Yes [facility] PROAIR HFA 90 mcg/actuati on inhaler 2020-0 4- 00:00: 00 Yes [facility] PROAIR HFA 90 mcg/actuati on inhaler 2020-0 4- 00:00: 00 Yes [facility] PROAIR HFA 90 mcg/actuati on inhaler 2020-0 4-09 00:00: 00 Yes [facility] PROAIR HFA 90 mcg/actuati on inhaler 2020-0 4-09 00:00: 00 Yes [facility] PROAIR HFA 90 mcg/actuati on inhaler 2020-0 4- 00:00: 00 Yes [facility] PROAIR HFA 90 mcg/actuati on inhaler 2020-0 02-02 00:00: 00 Yes [facility] PROAIR HFA 90 mcg/actuati on inhaler 2020-0 - 00:00: 00 Yes [facility] PROAIR HFA 90 mcg/actuati on inhaler 2020-0 - 00:00: 00 Yes [facility] PROAIR HFA 90 mcg/actuati on inhaler 2020-0 02-02 00:00: 00 Yes [facility] PROAIR HFA 90 mcg/actuati on inhaler 2020-0 02-02 00:00: 00 Yes [facility] PROAIR HFA 90 mcg/actuati on inhaler 2020-0 02-02 00:00: 00 Yes [facility] PROAIR HFA 90 mcg/actuati on inhaler 2020-0 02-02 00:00: 00 Yes [facility] PROAIR HFA 90 mcg/actuati on inhaler 2020-0 02-02 00:00: 00 Yes [facility] PROAIR HFA 90 mcg/actuati on inhaler 2020-0 02-02 00:00: 00 Yes [facility] PROAIR HFA 90 mcg/actuati on inhaler 2020-0 02-02 00:00: 00 Yes [facility] PROAIR HFA 90 mcg/actuati on inhaler 2020-0 02-02 00:00: 00 Yes [facility] PROAIR HFA 90 mcg/actuati on inhaler 2020-0 02-02 00:00: 00 Yes [facility] PROAIR HFA 90 mcg/actuati on inhaler 2020-0 02-02 00:00: 00 Yes [facility] PROAIR HFA 90 mcg/actuati on inhaler 2020-0 02-02 00:00: 00 Yes [facility] PROAIR HFA 90 mcg/actuati on inhaler 2020-0 - 00:00: 00 Yes [facility] PROAIR HFA 90 mcg/actuati on inhaler 2020-0 4- 00:00: 00 Yes [facility] PROAIR HFA 90 mcg/actuati on inhaler 2020-0 - 00:00: 00 Yes [facility] PROAIR HFA 90 mcg/actuati on inhaler 2020-0 - 00:00: 00 Yes [facility] PROAIR HFA 90 mcg/actuati on inhaler 2020-0 - 00:00: 00 Yes [facility] PROAIR HFA 90 mcg/actuati on inhaler 2020-0 02-02 00:00: 00 Yes [facility] PROAIR HFA 90 mcg/actuati on inhaler 2020-0 02-02 00:00: 00 Yes [facility] PROAIR HFA 90 mcg/actuati on inhaler 2020-0 02-02 00:00: 00 Yes [facility] azithromyci n 250 mg tablet 2020-0 02-02 00:00: 00 Yes [facility] SYMBICORT 160-4.5 mcg/actuati on inhaler 2020-0 02-02 00:00: 00 Yes [facility] PROAIR HFA 90 mcg/actuati on inhaler 2020-0 02-02 00:00: 00 Yes [facility] azithromyci n 250 mg tablet 2020-0 02-02 00:00: 00 Yes [facility] SYMBICORT 160-4.5 mcg/actuati on inhaler 2020-0 02-02 00:00: 00 Yes [facility] PROAIR HFA 90 mcg/actuati on inhaler 2020-0 - 00:00: 00 Yes [facility] azithromyci n 250 mg tablet 2020-0 02-02 00:00: 00 Yes [facility] SYMBICORT 160-4.5 mcg/actuati on inhaler 2020-0 02-02 00:00: 00 Yes [facility] PROAIR HFA 90 mcg/actuati on inhaler 2020-0 - 00:00: 00 Yes [facility] azithromyci n 250 mg tablet 2020-0 - 00:00: 00 Yes [facility] SYMBICORT 160-4.5 mcg/actuati on inhaler 2020-0 02-02 00:00: 00 Yes [facility] PROAIR HFA 90 mcg/actuati on inhaler 2020-0 02-02 00:00: 00 Yes [facility] azithromyci n 250 mg tablet 2020-0 - 00:00: 00 Yes [facility] SYMBICORT 160-4.5 mcg/actuati on inhaler 2020-0 02-02 00:00: 00 Yes [facility] PROAIR HFA 90 mcg/actuati on inhaler 2020-0 02-02 00:00: 00 Yes [facility] azithromyci n 250 mg tablet 2020-0 02-02 00:00: 00 Yes [facility] SYMBICORT 160-4.5 mcg/actuati on inhaler 2020-0 02-02 00:00: 00 Yes [facility] PROAIR HFA 90 mcg/actuati on inhaler 2020-0 02-02 00:00: 00 Yes [facility] azithromyci n 250 mg tablet 2020-0 02-02 00:00: 00 Yes [facility] SYMBICORT 160-4.5 mcg/actuati on inhaler 2020-0 02-02 00:00: 00 Yes [facility] PROAIR HFA 90 mcg/actuati on inhaler 2020-0 02-02 00:00: 00 Yes [facility] SYMBICORT 160-4.5 mcg/actuati on inhaler 2020-0 02-02 00:00: 00 Yes [facility] PROAIR HFA 90 mcg/actuati on inhaler 2020-0 02-02 00:00: 00 Yes [facility] SYMBICORT 160-4.5 mcg/actuati on inhaler 2020-0 02-02 00:00: 00 Yes [facility] PROAIR HFA 90 mcg/actuati on inhaler 2020-0 00:00: 00 Yes [facility] SYMBICORT 160-4.5 mcg/actuati on inhaler 2020-0 02-02 00:00: 00 Yes [facility] PROAIR HFA 90 mcg/actuati on inhaler 2020-0 02-02 00:00: 00 Yes [facility] SYMBICORT 160-4.5 mcg/actuati on inhaler 2020-0 02-02 00:00: 00 Yes [facility] PROAIR HFA 90 mcg/actuati on inhaler 2020-0 02-02 00:00: 00 Yes [facility] SYMBICORT 160-4.5 mcg/actuati on inhaler 2020-0 02-02 00:00: 00 Yes [facility] PROAIR HFA 90 mcg/actuati on inhaler 2020-0 02-02 00:00: 00 Yes [facility] SYMBICORT 160-4.5 mcg/actuati on inhaler 2020-0 02-02 00:00: 00 Yes [facility] PROAIR HFA 90 mcg/actuati on inhaler 2020-0 02-02 00:00: 00 Yes [facility] SYMBICORT 160-4.5 mcg/actuati on inhaler 2020-0 02-02 00:00: 00 Yes [facility] PROAIR HFA 90 mcg/actuati on inhaler 2020-0 02-02 00:00: 00 Yes [facility] SYMBICORT 160-4.5 mcg/actuati on inhaler 2020-0 02-02 00:00: 00 Yes [facility] PROAIR HFA 90 mcg/actuati on inhaler 2020-0 02-02 00:00: 00 Yes [facility] SYMBICORT 160-4.5 mcg/actuati on inhaler 2020-0 02-02 00:00: 00 Yes [facility] PROAIR HFA 90 mcg/actuati on inhaler 2020-0 02-02 00:00: 00 Yes [facility] SYMBICORT 160-4.5 mcg/actuati on inhaler 2020-0 02-02 00:00: 00 Yes [facility] PROAIR HFA 90 mcg/actuati on inhaler 2020-0 4- 00:00: 00 Yes [facility] SYMBICORT 160-4.5 mcg/actuati on inhaler 2020-0 4- 00:00: 00 Yes [facility] PROAIR HFA 90 mcg/actuati on inhaler 2020-0 - 00:00: 00 Yes [facility] SYMBICORT 160-4.5 mcg/actuati on inhaler 2020-0 4- 00:00: 00 Yes [facility] PROAIR HFA 90 mcg/actuati on inhaler 2020-0 - 00:00: 00 Yes [facility] SYMBICORT 160-4.5 mcg/actuati on inhaler 2020-0 - 00:00: 00 Yes [facility] PROAIR HFA 90 mcg/actuati on inhaler 2020-0 02-02 00:00: 00 Yes [facility] SYMBICORT 160-4.5 mcg/actuati on inhaler 2020-0 - 00:00: 00 Yes [facility] PROAIR HFA 90 mcg/actuati on inhaler 2020-0 02-02 00:00: 00 Yes [facility] SYMBICORT 160-4.5 mcg/actuati on inhaler 2020-0 02-02 00:00: 00 Yes [facility] PROAIR HFA 90 mcg/actuati on inhaler 2020-0 - 00:00: 00 Yes [facility] SYMBICORT 160-4.5 mcg/actuati on inhaler 2020-0 - 00:00: 00 Yes [facility] PROAIR HFA 90 mcg/actuati on inhaler 2020-0 - 00:00: 00 Yes [facility] SYMBICORT 160-4.5 mcg/actuati on inhaler 2020-0 4- 00:00: 00 Yes [facility] PROAIR HFA 90 mcg/actuati on inhaler 2020-0 4- 00:00: 00 Yes [facility] SYMBICORT 160-4.5 mcg/actuati on inhaler 2020-0 4- 00:00: 00 Yes [facility] PROAIR HFA 90 mcg/actuati on inhaler 2020-0 4- 00:00: 00 Yes [facility] SYMBICORT 160-4.5 mcg/actuati on inhaler 2020-0 - 00:00: 00 Yes [facility] PROAIR HFA 90 mcg/actuati on inhaler 2020-0 4- 00:00: 00 Yes [facility] SYMBICORT 160-4.5 mcg/actuati on inhaler 2020-0 4- 00:00: 00 Yes [facility] PROAIR HFA 90 mcg/actuati on inhaler 2020-0 - 00:00: 00 Yes [facility] SYMBICORT 160-4.5 mcg/actuati on inhaler 2020-0 02-02 00:00: 00 Yes [facility] PROAIR HFA 90 mcg/actuati on inhaler 2020-0 - 00:00: 00 Yes [facility] SYMBICORT 160-4.5 mcg/actuati on inhaler 2020-0 - 00:00: 00 Yes [facility] PROAIR HFA 90 mcg/actuati on inhaler 2020-0 02-02 00:00: 00 Yes [facility] SYMBICORT 160-4.5 mcg/actuati on inhaler 2020-0 02-02 00:00: 00 Yes [facility] PROAIR HFA 90 mcg/actuati on inhaler 2020-0 - 00:00: 00 Yes [facility] SYMBICORT 160-4.5 mcg/actuati on inhaler 2020-0 - 00:00: 00 Yes [facility] PROAIR HFA 90 mcg/actuati on inhaler 2020-0 4- 00:00: 00 Yes [facility] PROAIR HFA 90 mcg/actuati on inhaler 2020-0 4- 00:00: 00 Yes [facility] PROAIR HFA 90 mcg/actuati on inhaler 2020-0 4- 00:00: 00 Yes [facility] PROAIR HFA 90 mcg/actuati on inhaler 2020-0 4-09 00:00: 00 Yes [facility] SYMBICORT 160-4.5 mcg/actuati on inhaler 2020-0 4- 00:00: 00 10-01 00:00 :00 No [facility] SYMBICORT 160-4.5 mcg/actuati on inhaler 2019-0 - 00:00: 00 10-01 00:00 :00 No [facility] azithromyci n 250 mg tablet 2020-0 - 00:00: 00 06-05 00:00 :00 No [facility] azithromyci n 250 mg tablet 2020-0 02-02 00:00: 00 06-05 00:00 :00 No [facility] azithromyci n 250 mg tablet 2019-0 02-02 00:00: 00 06-05 00:00 :00 No [facility] amoxicillin -clavulanat e 875-125 mg per tablet 2020-0 2-10 00:00: 00 Yes TK 1 T PO BID [facility] amoxicillin -clavulanat e 875-125 mg per tablet 2020-0 2-10 00:00: 00 Yes TK 1 T PO BID [facility] amoxicillin -clavulanat e 875-125 mg per tablet 2020-0 2-10 00:00: 00 Yes TK 1 T PO BID [facility] amoxicillin -clavulanat e 875-125 mg per tablet 2020-0 2-10 00:00: 00 Yes TK 1 T PO BID [facility] amoxicillin -clavulanat e 875-125 mg per tablet 2020-0 2-10 00:00: 00 Yes TK 1 T PO BID [facility] amoxicillin -clavulanat e 875-125 mg per tablet 2020-0 2-10 00:00: 00 Yes TK 1 T PO BID [facility] amoxicillin -clavulanat e 875-125 mg per tablet 2020-0 2-10 00:00: 00 Yes TK 1 T PO BID [facility] amoxicillin -clavulanat e 875-125 mg per tablet 2020-0 2-10 00:00: 00 Yes TK 1 T PO BID [facility] amoxicillin -clavulanat e 875-125 mg per tablet 2020-0 2-10 00:00: 00 Yes TK 1 T PO BID [facility] amoxicillin -clavulanat e 875-125 mg per tablet 2020-0 2-10 00:00: 00 Yes TK 1 T PO BID [facility] amoxicillin -clavulanat e 875-125 mg per tablet 2020-0 2-10 00:00: 00 Yes TK 1 T PO BID [facility] amoxicillin -clavulanat e 875-125 mg per tablet 2020-0 2-10 00:00: 00 Yes TK 1 T PO BID [facility] amoxicillin -clavulanat e 875-125 mg per tablet 2020-0 2-10 00:00: 00 Yes TK 1 T PO BID [facility] amoxicillin -clavulanat e 875-125 mg per tablet 2020-0 2-10 00:00: 00 Yes TK 1 T PO BID [facility] amoxicillin -clavulanat e 875-125 mg per tablet 2020-0 2-10 00:00: 00 Yes TK 1 T PO BID [facility] amoxicillin -clavulanat e 875-125 mg per tablet 2020-0 2-10 00:00: 00 Yes TK 1 T PO BID [facility] amoxicillin -clavulanat e 875-125 mg per tablet 2020-0 2-10 00:00: 00 Yes TK 1 T PO BID [facility] amoxicillin -clavulanat e 875-125 mg per tablet 2020-0 2-10 00:00: 00 Yes TK 1 T PO BID [facility] amoxicillin -clavulanat e 875-125 mg per tablet 2020-0 2-10 00:00: 00 Yes TK 1 T PO BID [facility] amoxicillin -clavulanat e 875-125 mg per tablet 2020-0 2-10 00:00: 00 Yes TK 1 T PO BID [facility] amoxicillin -clavulanat e 875-125 mg per tablet 2020-0 2-10 00:00: 00 Yes TK 1 T PO BID [facility] amoxicillin -clavulanat e 875-125 mg per tablet 2020-0 2-10 00:00: 00 Yes TK 1 T PO BID [facility] amoxicillin -clavulanat e 875-125 mg per tablet 2020-0 2-10 00:00: 00 Yes TK 1 T PO BID [facility] amoxicillin -clavulanat e 875-125 mg per tablet 2020-0 2-10 00:00: 00 Yes TK 1 T PO BID [facility] amoxicillin -clavulanat e 875-125 mg per tablet 2020-0 2-10 00:00: 00 Yes TK 1 T PO BID [facility] amoxicillin -clavulanat e 875-125 mg per tablet 2020-0 2-10 00:00: 00 Yes TK 1 T PO BID [facility] amoxicillin -clavulanat e 875-125 mg per tablet 2020-0 2-10 00:00: 00 Yes TK 1 T PO BID [facility] amoxicillin -clavulanat e 875-125 mg per tablet 2020-0 2-10 00:00: 00 Yes TK 1 T PO BID [facility] amoxicillin -clavulanat e 875-125 mg per tablet 2020-0 2-10 00:00: 00 Yes TK 1 T PO BID [facility] amoxicillin -clavulanat e 875-125 mg per tablet 2020-0 2-10 00:00: 00 Yes TK 1 T PO BID [facility] amoxicillin -clavulanat e 875-125 mg per tablet 2020-0 2-10 00:00: 00 Yes TK 1 T PO BID [facility] amoxicillin -clavulanat e 875-125 mg per tablet 2020-0 2-10 00:00: 00 Yes TK 1 T PO BID [facility] amoxicillin -clavulanat e 875-125 mg per tablet 2020-0 2-10 00:00: 00 Yes TK 1 T PO BID [facility] amoxicillin -clavulanat e 875-125 mg per tablet 2020-0 2-10 00:00: 00 Yes TK 1 T PO BID [facility] amoxicillin -clavulanat e 875-125 mg per tablet 2020-0 2-10 00:00: 00 Yes TK 1 T PO BID [facility] amoxicillin -clavulanat e 875-125 mg per tablet 2020-0 2-10 00:00: 00 Yes TK 1 T PO BID [facility] amoxicillin -clavulanat e 875-125 mg per tablet 2020-0 2-10 00:00: 00 Yes TK 1 T PO BID [facility] amoxicillin -clavulanat e 875-125 mg per tablet 2020-0 2-10 00:00: 00 Yes TK 1 T PO BID [facility] amoxicillin -clavulanat e 875-125 mg per tablet 2020-0 2-10 00:00: 00 Yes TK 1 T PO BID [facility] amoxicillin -clavulanat e 875-125 mg per tablet 2020-0 2-10 00:00: 00 Yes TK 1 T PO BID [facility] amoxicillin -clavulanat e 875-125 mg per tablet 2020-0 2-10 00:00: 00 10-01 00:00 :00 No TK 1 T PO BID [facility] amoxicillin -clavulanat e 875-125 mg per tablet 2020-0 2-10 00:00: 00 10-01 00:00 :00 No TK 1 T PO BID [facility] norethindro ne-ethinyl estradiol 1-20 mg-mcg per tablet 2020-0 1-30 00:00: 00 Yes [facility] norethindro ne-ethinyl estradiol 1-20 mg-mcg per tablet 2020-0 1-30 00:00: 00 Yes [facility] norethindro ne-ethinyl estradiol 1-20 mg-mcg per tablet 2020-0 1-30 00:00: 00 Yes [facility] norethindro ne-ethinyl estradiol 1-20 mg-mcg per tablet 2019-0 1-30 00:00: 00 Yes [facility] norethindro ne-ethinyl estradiol 1-20 mg-mcg per tablet 2020-0 1-30 00:00: 00 Yes [facility] norethindro ne-ethinyl estradiol 1-20 mg-mcg per tablet 2020-0 30 00:00: 00 Yes [facility] norethindro ne-ethinyl estradiol 1-20 mg-mcg per tablet 2020-0 11-25 00:00: 00 Yes [facility] norethindro ne-ethinyl estradiol 1-20 mg-mcg per tablet 2019-0 11-25 00:00: 00 Yes [facility] norethindro ne-ethinyl estradiol 1-20 mg-mcg per tablet 2019-0 11-25 00:00: 00 Yes [facility] norethindro ne-ethinyl estradiol 1-20 mg-mcg per tablet 2019-0 11-25 00:00: 00 Yes [facility] norethindro ne-ethinyl estradiol 1-20 mg-mcg per tablet 2019-0 11-25 00:00: 00 Yes [facility] norethindro ne-ethinyl estradiol 1-20 mg-mcg per tablet 2019-0 11-25 00:00: 00 Yes [facility] norethindro ne-ethinyl estradiol 1-20 mg-mcg per tablet 2019-0 11-25 00:00: 00 Yes [facility] norethindro ne-ethinyl estradiol 1-20 mg-mcg per tablet 2019-0 11-25 00:00: 00 Yes [facility] norethindro ne-ethinyl estradiol 1-20 mg-mcg per tablet 2019-0 11-25 00:00: 00 Yes [facility] norethindro ne-ethinyl estradiol 1-20 mg-mcg per tablet 2019-0 11-25 00:00: 00 Yes [facility] norethindro ne-ethinyl estradiol 1-20 mg-mcg per tablet 2019-0 11-25 00:00: 00 Yes [facility] norethindro ne-ethinyl estradiol 1-20 mg-mcg per tablet 2019-0 11-25 00:00: 00 Yes [facility] norethindro ne-ethinyl estradiol 1-20 mg-mcg per tablet 2020-0 1-30 00:00: 00 Yes [facility] norethindro ne-ethinyl estradiol 1-20 mg-mcg per tablet 2019-0 11-25 00:00: 00 Yes [facility] norethindro ne-ethinyl estradiol 1-20 mg-mcg per tablet 2019-0 11-25 00:00: 00 Yes [facility] norethindro ne-ethinyl estradiol 1-20 mg-mcg per tablet 2019-0 11-25 00:00: 00 Yes [facility] norethindro ne-ethinyl estradiol 1-20 mg-mcg per tablet 2019-0 11-25 00:00: 00 Yes [facility] norethindro ne-ethinyl estradiol 1-20 mg-mcg per tablet 2019-0 11-25 00:00: 00 Yes [facility] norethindro ne-ethinyl estradiol 1-20 mg-mcg per tablet 2019-0 11-25 00:00: 00 Yes [facility] norethindro ne-ethinyl estradiol 1-20 mg-mcg per tablet 0 11-25 00:00: 00 Yes [facility] norethindro ne-ethinyl estradiol 1-20 mg-mcg per tablet 0 11-25 00:00: 00 Yes [facility] norethindro ne-ethinyl estradiol 1-20 mg-mcg per tablet 0 11-25 00:00: 00 Yes [facility] norethindro ne-ethinyl estradiol 1-20 mg-mcg per tablet 0 11-25 00:00: 00 Yes [facility] norethindro ne-ethinyl estradiol 1-20 mg-mcg per tablet 2019-0 11-25 00:00: 00 Yes [facility] norethindro ne-ethinyl estradiol 1-20 mg-mcg per tablet 0 11-25 00:00: 00 Yes [facility] norethindro ne-ethinyl estradiol 1-20 mg-mcg per tablet 2019-0 11-25 00:00: 00 Yes [facility] norethindro ne-ethinyl estradiol 1-20 mg-mcg per tablet 2020-0 30 00:00: 00 Yes [facility] norethindro ne-ethinyl estradiol 1-20 mg-mcg per tablet 2019-0 11-25 00:00: 00 Yes [facility] norethindro ne-ethinyl estradiol 1-20 mg-mcg per tablet 2019-0 11-25 00:00: 00 Yes [facility] norethindro ne-ethinyl estradiol 1-20 mg-mcg per tablet 2019-0 11-25 00:00: 00 Yes [facility] norethindro ne-ethinyl estradiol 1-20 mg-mcg per tablet 2019-0 11-25 00:00: 00 Yes [facility] norethindro ne-ethinyl estradiol 1-20 mg-mcg per tablet 2019-0 11-25 00:00: 00 Yes [facility] norethindro ne-ethinyl estradiol 1-20 mg-mcg per tablet 2019-0 11-25 00:00: 00 Yes [facility] norethindro ne-ethinyl estradiol 1-20 mg-mcg per tablet 2019-0 11-25 00:00: 00 Yes [facility] norethindro ne-ethinyl estradiol 1-20 mg-mcg per tablet 2019-0 11-25 00:00: 00 Yes [facility] norethindro ne-ethinyl estradiol 1-20 mg-mcg per tablet 2019-0 11-25 00:00: 00 Yes [facility] norethindro ne-ethinyl estradiol 1-20 mg-mcg per tablet 2019-0 11-25 00:00: 00 Yes [facility] norethindro ne-ethinyl estradiol 1-20 mg-mcg per tablet 2019-0 11-25 00:00: 00 Yes [facility] norethindro ne-ethinyl estradiol 1-20 mg-mcg per tablet 2019-0 11-25 00:00: 00 Yes [facility] norethindro ne-ethinyl estradiol 1-20 mg-mcg per tablet 2019-0 30 00:00: 00 Yes [facility] norethindro ne-ethinyl estradiol 1-20 mg-mcg per tablet 2020-0 130 00:00: 00 07-17 00:00 :00 No [facility] norethindro ne-ethinyl estradiol 1-20 mg-mcg per tablet 2020-0 30 00:00: 00 07-17 00:00 :00 No [facility] MY WAY 1.5 mg tablet 2020-0 1-20 00:00: 00 Yes [facility] MY WAY 1.5 mg tablet 2020-0 1-20 00:00: 00 Yes [facility] MY WAY 1.5 mg tablet 2020-0 1-20 00:00: 00 Yes [facility] MY WAY 1.5 mg tablet 2020-0 1-20 00:00: 00 Yes [facility] MY WAY 1.5 mg tablet 2020-0 1-20 00:00: 00 Yes [facility] MY WAY 1.5 mg tablet 2020-0 1-20 00:00: 00 Yes [facility] MY WAY 1.5 mg tablet 2020-0 1-20 00:00: 00 Yes [facility] MY WAY 1.5 mg tablet 2020-0 1-20 00:00: 00 Yes [facility] MY WAY 1.5 mg tablet 2020-0 1-20 00:00: 00 Yes [facility] MY WAY 1.5 mg tablet 2020-0 1-20 00:00: 00 Yes [facility] MY WAY 1.5 mg tablet 2020-0 1-20 00:00: 00 Yes [facility] MY WAY 1.5 mg tablet 2020-0 1-20 00:00: 00 Yes [facility] MY WAY 1.5 mg tablet 2020-0 1-20 00:00: 00 Yes [facility] MY WAY 1.5 mg tablet 2020-0 1-20 00:00: 00 Yes [facility] MY WAY 1.5 mg tablet 2020-0 1-20 00:00: 00 Yes [facility] MY WAY 1.5 mg tablet 2020-0 1-20 00:00: 00 Yes [facility] MY WAY 1.5 mg tablet 2020-0 1-20 00:00: 00 Yes [facility] MY WAY 1.5 mg tablet 2020-0 1-20 00:00: 00 Yes [facility] MY WAY 1.5 mg tablet 2020-0 1-20 00:00: 00 Yes [facility] MY WAY 1.5 mg tablet 2020-0 1-20 00:00: 00 Yes [facility] MY WAY 1.5 mg tablet 2020-0 1-20 00:00: 00 Yes [facility] MY WAY 1.5 mg tablet 2020-0 1-20 00:00: 00 Yes [facility] MY WAY 1.5 mg tablet 2020-0 1-20 00:00: 00 Yes [facility] MY WAY 1.5 mg tablet 2020-0 1-20 00:00: 00 Yes [facility] MY WAY 1.5 mg tablet 2020-0 1-20 00:00: 00 Yes [facility] MY WAY 1.5 mg tablet 2020-0 1-20 00:00: 00 Yes [facility] MY WAY 1.5 mg tablet 2020-0 1-20 00:00: 00 Yes [facility] MY WAY 1.5 mg tablet 2020-0 1-20 00:00: 00 Yes [facility] MY WAY 1.5 mg tablet 2020-0 1-20 00:00: 00 Yes [facility] MY WAY 1.5 mg tablet 2020-0 1-20 00:00: 00 Yes [facility] MY WAY 1.5 mg tablet 2020-0 1-20 00:00: 00 Yes [facility] MY WAY 1.5 mg tablet 2020-0 1-20 00:00: 00 Yes [facility] MY WAY 1.5 mg tablet 2020-0 1-20 00:00: 00 Yes [facility] MY WAY 1.5 mg tablet 2020-0 1-20 00:00: 00 Yes [facility] MY WAY 1.5 mg tablet 2020-0 1-20 00:00: 00 Yes [facility] MY WAY 1.5 mg tablet 2020-0 1-20 00:00: 00 Yes [facility] MY WAY 1.5 mg tablet 2020-0 1-20 00:00: 00 Yes [facility] MY WAY 1.5 mg tablet 2020-0 1-20 00:00: 00 Yes [facility] MY WAY 1.5 mg tablet 2020-0 1-20 00:00: 00 Yes [facility] MY WAY 1.5 mg tablet 2020-0 1-20 00:00: 00 Yes [facility] MY WAY 1.5 mg tablet 2020-0 1-20 00:00: 00 Yes [facility] MY WAY 1.5 mg tablet 2020-0 1-20 00:00: 00 Yes [facility] MY WAY 1.5 mg tablet 2020-0 1-20 00:00: 00 Yes [facility] MY WAY 1.5 mg tablet 2020-0 1-20 00:00: 00 Yes [facility] MY WAY 1.5 mg tablet 2020-0 1-20 00:00: 00 Yes [facility] MY WAY 1.5 mg tablet 2020-0 1-20 00:00: 00 Yes [facility] MY WAY 1.5 mg tablet 2020-0 1-20 00:00: 00 07-17 00:00 :00 No [facility] MY WAY 1.5 mg tablet 2020-0 1-20 00:00: 00 07-17 00:00 :00 No [facility] escitalopra m oxalate 20 mg tablet 2020-0 1-10 00:00: 00 Yes TK 1 T PO QD [facility] escitalopra m oxalate 20 mg tablet 2020-0 1-10 00:00: 00 Yes TK 1 T PO QD [facility] escitalopra m oxalate 20 mg tablet 2020-0 1-10 00:00: 00 Yes TK 1 T PO QD [facility] escitalopra m oxalate 20 mg tablet 2020-0 1-10 00:00: 00 Yes TK 1 T PO QD [facility] escitalopra m oxalate 20 mg tablet 2020-0 1-10 00:00: 00 Yes TK 1 T PO QD [facility] escitalopra m oxalate 20 mg tablet 2020-0 1-10 00:00: 00 Yes TK 1 T PO QD [facility] escitalopra m oxalate 20 mg tablet 2020-0 1-10 00:00: 00 Yes TK 1 T PO QD [facility] escitalopra m oxalate 20 mg tablet 2020-0 1-10 00:00: 00 Yes TK 1 T PO QD [facility] escitalopra m oxalate 20 mg tablet 2020-0 1-10 00:00: 00 Yes TK 1 T PO QD [facility] escitalopra m oxalate 20 mg tablet 2020-0 1-10 00:00: 00 Yes TK 1 T PO QD [facility] escitalopra m oxalate 20 mg tablet 2020-0 1-10 00:00: 00 Yes TK 1 T PO QD [facility] [place] escitalopra m oxalate 20 mg tablet 2020-0 1-10 00:00: 00 Yes TK 1 T PO QD [facility] [place] escitalopra m oxalate 20 mg tablet 2020-0 1-10 00:00: 00 Yes TK 1 T PO QD [facility] escitalopra m oxalate 20 mg tablet 2020-0 1-10 00:00: 00 Yes TK 1 T PO QD [facility] [place] escitalopra m oxalate 20 mg tablet 2020-0 1-10 00:00: 00 Yes TK 1 T PO QD [facility] escitalopra m oxalate 20 mg tablet 2020-0 1-10 00:00: 00 Yes TK 1 T PO QD [facility] escitalopra m oxalate 20 mg tablet 2020-0 1-10 00:00: 00 Yes TK 1 T PO QD [facility] escitalopra m oxalate 20 mg tablet 2020-0 1-10 00:00: 00 Yes TK 1 T PO QD [facility] escitalopra m oxalate 20 mg tablet 2020-0 1-10 00:00: 00 Yes TK 1 T PO QD [facility] [place] escitalopra m oxalate 20 mg tablet 2020-0 1-10 00:00: 00 Yes TK 1 T PO QD [facility] escitalopra m oxalate 20 mg tablet 2020-0 1-10 00:00: 00 Yes TK 1 T PO QD [facility] escitalopra m oxalate 20 mg tablet 2020-0 1-10 00:00: 00 Yes TK 1 T PO QD [facility] escitalopra m oxalate 20 mg tablet 2020-0 1-10 00:00: 00 Yes TK 1 T PO QD [facility] escitalopra m oxalate 20 mg tablet 2020-0 1-10 00:00: 00 Yes TK 1 T PO QD [facility] escitalopra m oxalate 20 mg tablet 2020-0 1-10 00:00: 00 Yes TK 1 T PO QD [facility] escitalopra m oxalate 20 mg tablet 2020-0 1-10 00:00: 00 Yes TK 1 T PO QD [facility] [place] escitalopra m oxalate 20 mg tablet 2020-0 1-10 00:00: 00 Yes TK 1 T PO QD [facility] escitalopra m oxalate 20 mg tablet 2020-0 1-10 00:00: 00 Yes TK 1 T PO QD [facility] escitalopra m oxalate 20 mg tablet 2020-0 1-10 00:00: 00 Yes TK 1 T PO QD [facility] escitalopra m oxalate 20 mg tablet 2020-0 1-10 00:00: 00 Yes TK 1 T PO QD [facility] escitalopra m oxalate 20 mg tablet 2020-0 1-10 00:00: 00 Yes TK 1 T PO QD [facility] escitalopra m oxalate 20 mg tablet 2020-0 1-10 00:00: 00 Yes TK 1 T PO QD [facility] escitalopra m oxalate 20 mg tablet 2020-0 1-10 00:00: 00 Yes TK 1 T PO QD [facility] escitalopra m oxalate 20 mg tablet 2020-0 1-10 00:00: 00 Yes TK 1 T PO QD [facility] escitalopra m oxalate 20 mg tablet 2020-0 1-10 00:00: 00 Yes TK 1 T PO QD [facility] escitalopra m oxalate 20 mg tablet 2020-0 1-10 00:00: 00 Yes TK 1 T PO QD [facility] escitalopra m oxalate 20 mg tablet 2020-0 1-10 00:00: 00 Yes TK 1 T PO QD [facility] escitalopra m oxalate 20 mg tablet 2020-0 1-10 00:00: 00 Yes TK 1 T PO QD [facility] escitalopra m oxalate 20 mg tablet 2020-0 1-10 00:00: 00 Yes TK 1 T PO QD [facility] escitalopra m oxalate 20 mg tablet 2020-0 1-10 00:00: 00 Yes TK 1 T PO QD [facility] [place] escitalopra m oxalate 20 mg tablet 2020-0 1-10 00:00: 00 Yes TK 1 T PO QD [facility] [place] escitalopra m oxalate 20 mg tablet 2020-0 1-10 00:00: 00 Yes TK 1 T PO QD [facility] escitalopra m oxalate 20 mg tablet 2020-0 1-10 00:00: 00 Yes TK 1 T PO QD [facility] escitalopra m oxalate 20 mg tablet 2020-0 1-10 00:00: 00 Yes TK 1 T PO QD [facility] escitalopra m oxalate 20 mg tablet 2020-0 1-10 00:00: 00 Yes TK 1 T PO QD [facility] escitalopra m oxalate 20 mg tablet 2020-0 1-10 00:00: 00 Yes TK 1 T PO QD [facility] escitalopra m oxalate 20 mg tablet 2020-0 1-10 00:00: 00 Yes TK 1 T PO QD [facility] escitalopra m oxalate 20 mg tablet 2020-0 1-10 00:00: 00 Yes TK 1 T PO QD [facility] escitalopra m oxalate 20 mg tablet 2020-0 1-10 00:00: 00 Yes TK 1 T PO QD [facility] escitalopra m oxalate 20 mg tablet 2020-0 1-10 00:00: 00 Yes TK 1 T PO QD [facility] escitalopra m oxalate 20 mg tablet 2020-0 1-10 00:00: 00 Yes TK 1 T PO QD [facility] escitalopra m oxalate 20 mg tablet 2020-0 1-10 00:00: 00 Yes TK 1 T PO QD [facility] escitalopra m oxalate 20 mg tablet 2020-0 1-10 00:00: 00 Yes TK 1 T PO QD [facility] escitalopra m oxalate 20 mg tablet 2020-0 1-10 00:00: 00 Yes TK 1 T PO QD [facility] escitalopra m oxalate 20 mg tablet 2020-0 1-10 00:00: 00 Yes TK 1 T PO QD [facility] escitalopra m oxalate 20 mg tablet 2020-0 1-10 00:00: 00 Yes TK 1 T PO QD [facility] [place] escitalopra m oxalate 20 mg tablet 2020-0 1-10 00:00: 00 Yes TK 1 T PO QD [facility] [place] escitalopra m oxalate 20 mg tablet 2020-0 1-10 00:00: 00 Yes TK 1 T PO QD [facility] escitalopra m oxalate 20 mg tablet 2020-0 1-10 00:00: 00 Yes TK 1 T PO QD [facility] [place] escitalopra m oxalate 20 mg tablet 2020-0 1-10 00:00: 00 Yes TK 1 T PO QD [facility] escitalopra m oxalate 20 mg tablet 2020-0 1-10 00:00: 00 Yes TK 1 T PO QD [facility] escitalopra m oxalate 20 mg tablet 2020-0 1-10 00:00: 00 Yes TK 1 T PO QD [facility] escitalopra m oxalate 20 mg tablet 2020-0 1-10 00:00: 00 Yes TK 1 T PO QD [facility] escitalopra m oxalate 20 mg tablet 2020-0 1-10 00:00: 00 Yes TK 1 T PO QD [facility] [place] escitalopra m oxalate 20 mg tablet 2020-0 1-10 00:00: 00 Yes TK 1 T PO QD [facility] escitalopra m oxalate 20 mg tablet 2020-0 1-10 00:00: 00 Yes TK 1 T PO QD [facility] escitalopra m oxalate 20 mg tablet 2020-0 1-10 00:00: 00 Yes TK 1 T PO QD [facility] escitalopra m oxalate 20 mg tablet 2020-0 1-10 00:00: 00 Yes TK 1 T PO QD [facility] escitalopra m oxalate 20 mg tablet 2020-0 1-10 00:00: 00 Yes TK 1 T PO QD [facility] escitalopra m oxalate 20 mg tablet 2020-0 1-10 00:00: 00 Yes TK 1 T PO QD [facility] escitalopra m oxalate 20 mg tablet 2020-0 1-10 00:00: 00 Yes TK 1 T PO QD [facility] escitalopra m oxalate 20 mg tablet 2020-0 1-10 00:00: 00 Yes TK 1 T PO QD [facility] escitalopra m oxalate 20 mg tablet 2020-0 1-10 00:00: 00 Yes TK 1 T PO QD [facility] escitalopra m oxalate 20 mg tablet 2020-0 1-10 00:00: 00 Yes TK 1 T PO QD [facility] escitalopra m oxalate 20 mg tablet 2020-0 1-10 00:00: 00 Yes TK 1 T PO QD [facility] escitalopra m oxalate 20 mg tablet 2020-0 1-10 00:00: 00 Yes TK 1 T PO QD [facility] escitalopra m oxalate 20 mg tablet 2020-0 1-10 00:00: 00 Yes TK 1 T PO QD [facility] escitalopra m oxalate 20 mg tablet 2020-0 1-10 00:00: 00 Yes TK 1 T PO QD [facility] escitalopra m oxalate 20 mg tablet 2020-0 1-10 00:00: 00 Yes TK 1 T PO QD [facility] traZODONE 50 mg tablet 2019-0 5-09 00:00: 00 Yes TAKE 1 TABLET BY MOUTH EVERYDAY AT BEDTIME [facility] escitalopra m oxalate 10 mg tablet 0 03-04 00:00: 00 Yes TAKE 1 TABLET BY MOUTH EVERY MORNING [facility] traZODONE 50 mg tablet 0 03-04 00:00: 00 Yes TAKE 1 TABLET BY MOUTH EVERYDAY AT BEDTIME [facility] escitalopra m oxalate 10 mg tablet 0 03-04 00:00: 00 Yes TAKE 1 TABLET BY MOUTH EVERY MORNING [facility] traZODONE 50 mg tablet 0 03-04 00:00: 00 Yes TAKE 1 TABLET BY MOUTH EVERYDAY AT BEDTIME [facility] traZODONE 50 mg tablet 0 03-04 00:00: 00 Yes TAKE 1 TABLET BY MOUTH EVERYDAY AT BEDTIME [facility] escitalopra m oxalate 10 mg tablet 03-04 00:00: 00 Yes TAKE 1 TABLET BY MOUTH EVERY MORNING [facility] traZODONE 50 mg tablet 0 03-04 00:00: 00 Yes TAKE 1 TABLET BY MOUTH EVERYDAY AT BEDTIME [facility] traZODONE 50 mg tablet 0 03-04 00:00: 00 Yes TAKE 1 TABLET BY MOUTH EVERYDAY AT BEDTIME [facility] traZODONE 50 mg tablet 0 03-04 00:00: 00 Yes TAKE 1 TABLET BY MOUTH EVERYDAY AT BEDTIME [facility] traZODONE 50 mg tablet 0 03-04 00:00: 00 Yes TAKE 1 TABLET BY MOUTH EVERYDAY AT BEDTIME [facility] traZODONE 50 mg tablet 0 03-04 00:00: 00 Yes TAKE 1 TABLET BY MOUTH EVERYDAY AT BEDTIME [facility] traZODONE 50 mg tablet 0 03-04 00:00: 00 Yes TAKE 1 TABLET BY MOUTH EVERYDAY AT BEDTIME [facility] traZODONE 50 mg tablet 0 03-04 00:00: 00 Yes TAKE 1 TABLET BY MOUTH EVERYDAY AT BEDTIME [facility] traZODONE 50 mg tablet 0 03-04 00:00: 00 Yes TAKE 1 TABLET BY MOUTH EVERYDAY AT BEDTIME [facility] escitalopra m oxalate 10 mg tablet 03-04 00:00: 00 Yes TAKE 1 TABLET BY MOUTH EVERY MORNING [facility] traZODONE 50 mg tablet 03-04 00:00: 00 Yes TAKE 1 TABLET BY MOUTH EVERYDAY AT BEDTIME [facility] traZODONE 50 mg tablet 03-04 00:00: 00 Yes TAKE 1 TABLET BY MOUTH EVERYDAY AT BEDTIME [facility] traZODONE 50 mg tablet 0 03-04 00:00: 00 Yes TAKE 1 TABLET BY MOUTH EVERYDAY AT BEDTIME [facility] traZODONE 50 mg tablet 03-04 00:00: 00 Yes TAKE 1 TABLET BY MOUTH EVERYDAY AT BEDTIME [facility] traZODONE 50 mg tablet 03-04 00:00: 00 Yes TAKE 1 TABLET BY MOUTH EVERYDAY AT BEDTIME [facility] traZODONE 50 mg tablet 03-04 00:00: 00 Yes TAKE 1 TABLET BY MOUTH EVERYDAY AT BEDTIME [facility] traZODONE 50 mg tablet 03-04 00:00: 00 Yes TAKE 1 TABLET BY MOUTH EVERYDAY AT BEDTIME [facility] traZODONE 50 mg tablet 03-04 00:00: 00 Yes TAKE 1 TABLET BY MOUTH EVERYDAY AT BEDTIME [facility] escitalopra m oxalate 10 mg tablet 03-04 00:00: 00 Yes TAKE 1 TABLET BY MOUTH EVERY MORNING [facility] traZODONE 50 mg tablet 0 03-04 00:00: 00 Yes TAKE 1 TABLET BY MOUTH EVERYDAY AT BEDTIME [facility] traZODONE 50 mg tablet 0 03-04 00:00: 00 Yes TAKE 1 TABLET BY MOUTH EVERYDAY AT BEDTIME [facility] traZODONE 50 mg tablet 0 03-04 00:00: 00 Yes TAKE 1 TABLET BY MOUTH EVERYDAY AT BEDTIME [facility] traZODONE 50 mg tablet 0 03-04 00:00: 00 Yes TAKE 1 TABLET BY MOUTH EVERYDAY AT BEDTIME [facility] traZODONE 50 mg tablet 0 03-04 00:00: 00 Yes TAKE 1 TABLET BY MOUTH EVERYDAY AT BEDTIME [facility] [place] traZODONE 50 mg tablet 0 03-04 00:00: 00 Yes TAKE 1 TABLET BY MOUTH EVERYDAY AT BEDTIME [facility] traZODONE 50 mg tablet 0 03-04 00:00: 00 Yes TAKE 1 TABLET BY MOUTH EVERYDAY AT BEDTIME [facility] escitalopra m oxalate 10 mg tablet 0 03-04 00:00: 00 Yes TAKE 1 TABLET BY MOUTH EVERY MORNING [facility] traZODONE 50 mg tablet 0 03-04 00:00: 00 Yes TAKE 1 TABLET BY MOUTH EVERYDAY AT BEDTIME [facility] traZODONE 50 mg tablet 0 03-04 00:00: 00 Yes TAKE 1 TABLET BY MOUTH EVERYDAY AT BEDTIME [facility] traZODONE 50 mg tablet 0 03-04 00:00: 00 Yes TAKE 1 TABLET BY MOUTH EVERYDAY AT BEDTIME [facility] traZODONE 50 mg tablet 0 03-04 00:00: 00 Yes TAKE 1 TABLET BY MOUTH EVERYDAY AT BEDTIME [facility] traZODONE 50 mg tablet 0 03-04 00:00: 00 Yes TAKE 1 TABLET BY MOUTH EVERYDAY AT BEDTIME [facility] traZODONE 50 mg tablet 0 03-04 00:00: 00 Yes TAKE 1 TABLET BY MOUTH EVERYDAY AT BEDTIME [facility] traZODONE 50 mg tablet 0 03-04 00:00: 00 Yes TAKE 1 TABLET BY MOUTH EVERYDAY AT BEDTIME [facility] traZODONE 50 mg tablet 0 03-04 00:00: 00 Yes TAKE 1 TABLET BY MOUTH EVERYDAY AT BEDTIME [facility] traZODONE 50 mg tablet 0 03-04 00:00: 00 Yes TAKE 1 TABLET BY MOUTH EVERYDAY AT BEDTIME [facility] traZODONE 50 mg tablet 0 03-04 00:00: 00 Yes TAKE 1 TABLET BY MOUTH EVERYDAY AT BEDTIME [facility] traZODONE 50 mg tablet 03-04 00:00: 00 Yes TAKE 1 TABLET BY MOUTH EVERYDAY AT BEDTIME [facility] traZODONE 50 mg tablet 0 03-04 00:00: 00 Yes TAKE 1 TABLET BY MOUTH EVERYDAY AT BEDTIME [facility] traZODONE 50 mg tablet 03-04 00:00: 00 Yes TAKE 1 TABLET BY MOUTH EVERYDAY AT BEDTIME [facility] escitalopra m oxalate 10 mg tablet 03-04 00:00: 00 Yes TAKE 1 TABLET BY MOUTH EVERY MORNING [facility] traZODONE 50 mg tablet 03-04 00:00: 00 Yes TAKE 1 TABLET BY MOUTH EVERYDAY AT BEDTIME [facility] traZODONE 50 mg tablet 03-04 00:00: 00 Yes TAKE 1 TABLET BY MOUTH EVERYDAY AT BEDTIME [facility] escitalopra m oxalate 10 mg tablet 03-04 00:00: 00 Yes TAKE 1 TABLET BY MOUTH EVERY MORNING [facility] escitalopra m oxalate 10 mg tablet 03-04 00:00: 00 Yes TAKE 1 TABLET BY MOUTH EVERY MORNING [facility] traZODONE 50 mg tablet 03-04 00:00: 00 Yes TAKE 1 TABLET BY MOUTH EVERYDAY AT BEDTIME [facility] escitalopra m oxalate 10 mg tablet 03-04 00:00: 00 Yes TAKE 1 TABLET BY MOUTH EVERY MORNING [facility] traZODONE 50 mg tablet 03-04 00:00: 00 Yes TAKE 1 TABLET BY MOUTH EVERYDAY AT BEDTIME [facility] escitalopra m oxalate 10 mg tablet 03-04 00:00: 00 Yes TAKE 1 TABLET BY MOUTH EVERY MORNING [facility] traZODONE 50 mg tablet 03-04 00:00: 00 Yes TAKE 1 TABLET BY MOUTH EVERYDAY AT BEDTIME [facility] escitalopra m oxalate 10 mg tablet 03-04 00:00: 00 Yes TAKE 1 TABLET BY MOUTH EVERY MORNING [facility] traZODONE 50 mg tablet 0 03-04 00:00: 00 Yes TAKE 1 TABLET BY MOUTH EVERYDAY AT BEDTIME [facility] traZODONE 50 mg tablet 0 03-04 00:00: 00 Yes TAKE 1 TABLET BY MOUTH EVERYDAY AT BEDTIME [facility] escitalopra m oxalate 10 mg tablet 03-04 00:00: 00 Yes TAKE 1 TABLET BY MOUTH EVERY MORNING [facility] escitalopra m oxalate 10 mg tablet 03-04 00:00: 00 Yes TAKE 1 TABLET BY MOUTH EVERY MORNING [facility] traZODONE 50 mg tablet 0 03-04 00:00: 00 Yes TAKE 1 TABLET BY MOUTH EVERYDAY AT BEDTIME [facility] escitalopra m oxalate 10 mg tablet 03-04 00:00: 00 Yes TAKE 1 TABLET BY MOUTH EVERY MORNING [facility] traZODONE 50 mg tablet 03-04 00:00: 00 Yes TAKE 1 TABLET BY MOUTH EVERYDAY AT BEDTIME [facility] escitalopra m oxalate 10 mg tablet 03-04 00:00: 00 Yes TAKE 1 TABLET BY MOUTH EVERY MORNING [facility] traZODONE 50 mg tablet 03-04 00:00: 00 Yes TAKE 1 TABLET BY MOUTH EVERYDAY AT BEDTIME [facility] escitalopra m oxalate 10 mg tablet 03-04 00:00: 00 Yes TAKE 1 TABLET BY MOUTH EVERY MORNING [facility] traZODONE 50 mg tablet 03-04 00:00: 00 Yes TAKE 1 TABLET BY MOUTH EVERYDAY AT BEDTIME [facility] escitalopra m oxalate 10 mg tablet 0 03-04 00:00: 00 Yes TAKE 1 TABLET BY MOUTH EVERY MORNING [facility] traZODONE 50 mg tablet 03-04 00:00: 00 Yes TAKE 1 TABLET BY MOUTH EVERYDAY AT BEDTIME [facility] traZODONE 50 mg tablet 0 03-04 00:00: 00 Yes TAKE 1 TABLET BY MOUTH EVERYDAY AT BEDTIME [facility] escitalopra m oxalate 10 mg tablet 0 03-04 00:00: 00 Yes TAKE 1 TABLET BY MOUTH EVERY MORNING [facility] escitalopra m oxalate 10 mg tablet 03-04 00:00: 00 Yes TAKE 1 TABLET BY MOUTH EVERY MORNING [facility] traZODONE 50 mg tablet 03-04 00:00: 00 Yes TAKE 1 TABLET BY MOUTH EVERYDAY AT BEDTIME [facility] escitalopra m oxalate 10 mg tablet 03-04 00:00: 00 Yes TAKE 1 TABLET BY MOUTH EVERY MORNING [facility] traZODONE 50 mg tablet 03-04 00:00: 00 Yes TAKE 1 TABLET BY MOUTH EVERYDAY AT BEDTIME [facility] escitalopra m oxalate 10 mg tablet 03-04 00:00: 00 Yes TAKE 1 TABLET BY MOUTH EVERY MORNING [facility] traZODONE 50 mg tablet 03-04 00:00: 00 Yes TAKE 1 TABLET BY MOUTH EVERYDAY AT BEDTIME [facility] escitalopra m oxalate 10 mg tablet 03-04 00:00: 00 Yes TAKE 1 TABLET BY MOUTH EVERY MORNING [facility] traZODONE 50 mg tablet 03-04 00:00: 00 Yes TAKE 1 TABLET BY MOUTH EVERYDAY AT BEDTIME [facility] escitalopra m oxalate 10 mg tablet 03-04 00:00: 00 Yes TAKE 1 TABLET BY MOUTH EVERY MORNING [facility] traZODONE 50 mg tablet 03-04 00:00: 00 Yes TAKE 1 TABLET BY MOUTH EVERYDAY AT BEDTIME [facility] escitalopra m oxalate 10 mg tablet 0 03-04 00:00: 00 Yes TAKE 1 TABLET BY MOUTH EVERY MORNING [facility] traZODONE 50 mg tablet 03-04 00:00: 00 Yes TAKE 1 TABLET BY MOUTH EVERYDAY AT BEDTIME [facility] escitalopra m oxalate 10 mg tablet 0 03-04 00:00: 00 Yes TAKE 1 TABLET BY MOUTH EVERY MORNING [facility] traZODONE 50 mg tablet 0 03-04 00:00: 00 Yes TAKE 1 TABLET BY MOUTH EVERYDAY AT BEDTIME [facility] escitalopra m oxalate 10 mg tablet 03-04 00:00: 00 Yes TAKE 1 TABLET BY MOUTH EVERY MORNING [facility] traZODONE 50 mg tablet 0 03-04 00:00: 00 Yes TAKE 1 TABLET BY MOUTH EVERYDAY AT BEDTIME [facility] escitalopra m oxalate 10 mg tablet 03-04 00:00: 00 Yes TAKE 1 TABLET BY MOUTH EVERY MORNING [facility] traZODONE 50 mg tablet 0 03-04 00:00: 00 Yes TAKE 1 TABLET BY MOUTH EVERYDAY AT BEDTIME [facility] escitalopra m oxalate 10 mg tablet 03-04 00:00: 00 Yes TAKE 1 TABLET BY MOUTH EVERY MORNING [facility] traZODONE 50 mg tablet 0 03-04 00:00: 00 Yes TAKE 1 TABLET BY MOUTH EVERYDAY AT BEDTIME [facility] escitalopra m oxalate 10 mg tablet 03-04 00:00: 00 Yes TAKE 1 TABLET BY MOUTH EVERY MORNING [facility] traZODONE 50 mg tablet 0 03-04 00:00: 00 Yes TAKE 1 TABLET BY MOUTH EVERYDAY AT BEDTIME [facility] escitalopra m oxalate 10 mg tablet 03-04 00:00: 00 Yes TAKE 1 TABLET BY MOUTH EVERY MORNING [facility] traZODONE 50 mg tablet 03-04 00:00: 00 Yes TAKE 1 TABLET BY MOUTH EVERYDAY AT BEDTIME [facility] escitalopra m oxalate 10 mg tablet 0 03-04 00:00: 00 Yes TAKE 1 TABLET BY MOUTH EVERY MORNING [facility] traZODONE 50 mg tablet 03-04 00:00: 00 Yes TAKE 1 TABLET BY MOUTH EVERYDAY AT BEDTIME [facility] escitalopra m oxalate 10 mg tablet 0 03-04 00:00: 00 Yes TAKE 1 TABLET BY MOUTH EVERY MORNING [facility] traZODONE 50 mg tablet 0 03-04 00:00: 00 Yes TAKE 1 TABLET BY MOUTH EVERYDAY AT BEDTIME [facility] escitalopra m oxalate 10 mg tablet 03-04 00:00: 00 Yes TAKE 1 TABLET BY MOUTH EVERY MORNING [facility] traZODONE 50 mg tablet 03-04 00:00: 00 Yes TAKE 1 TABLET BY MOUTH EVERYDAY AT BEDTIME [facility] escitalopra m oxalate 10 mg tablet 03-04 00:00: 00 Yes TAKE 1 TABLET BY MOUTH EVERY MORNING [facility] traZODONE 50 mg tablet 03-04 00:00: 00 Yes TAKE 1 TABLET BY MOUTH EVERYDAY AT BEDTIME [facility] traZODONE 50 mg tablet 03-04 00:00: 00 Yes TAKE 1 TABLET BY MOUTH EVERYDAY AT BEDTIME [facility] escitalopra m oxalate 10 mg tablet 03-04 00:00: 00 Yes TAKE 1 TABLET BY MOUTH EVERY MORNING [facility] escitalopra m oxalate 10 mg tablet 03-04 00:00: 00 Yes TAKE 1 TABLET BY MOUTH EVERY MORNING [facility] traZODONE 50 mg tablet 03-04 00:00: 00 Yes TAKE 1 TABLET BY MOUTH EVERYDAY AT BEDTIME [facility] escitalopra m oxalate 10 mg tablet 03-04 00:00: 00 Yes TAKE 1 TABLET BY MOUTH EVERY MORNING [facility] traZODONE 50 mg tablet 03-04 00:00: 00 Yes TAKE 1 TABLET BY MOUTH EVERYDAY AT BEDTIME [facility] escitalopra m oxalate 10 mg tablet 03-04 00:00: 00 Yes TAKE 1 TABLET BY MOUTH EVERY MORNING [facility] traZODONE 50 mg tablet 03-04 00:00: 00 Yes TAKE 1 TABLET BY MOUTH EVERYDAY AT BEDTIME [facility] escitalopra m oxalate 10 mg tablet 03-04 00:00: 00 Yes TAKE 1 TABLET BY MOUTH EVERY MORNING [facility] traZODONE 50 mg tablet 03-04 00:00: 00 Yes TAKE 1 TABLET BY MOUTH EVERYDAY AT BEDTIME [facility] escitalopra m oxalate 10 mg tablet 03-04 00:00: 00 Yes TAKE 1 TABLET BY MOUTH EVERY MORNING [facility] traZODONE 50 mg tablet 03-04 00:00: 00 Yes TAKE 1 TABLET BY MOUTH EVERYDAY AT BEDTIME [facility] escitalopra m oxalate 10 mg tablet 03-04 00:00: 00 Yes TAKE 1 TABLET BY MOUTH EVERY MORNING [facility] traZODONE 50 mg tablet 03-04 00:00: 00 Yes TAKE 1 TABLET BY MOUTH EVERYDAY AT BEDTIME [facility] escitalopra m oxalate 10 mg tablet 03-04 00:00: 00 Yes TAKE 1 TABLET BY MOUTH EVERY MORNING [facility] traZODONE 50 mg tablet 03-04 00:00: 00 Yes TAKE 1 TABLET BY MOUTH EVERYDAY AT BEDTIME [facility] escitalopra m oxalate 10 mg tablet 03-04 00:00: 00 Yes TAKE 1 TABLET BY MOUTH EVERY MORNING [facility] traZODONE 50 mg tablet 03-04 00:00: 00 Yes TAKE 1 TABLET BY MOUTH EVERYDAY AT BEDTIME [facility] escitalopra m oxalate 10 mg tablet 03-04 00:00: 00 Yes TAKE 1 TABLET BY MOUTH EVERY MORNING [facility] traZODONE 50 mg tablet 03-04 00:00: 00 Yes TAKE 1 TABLET BY MOUTH EVERYDAY AT BEDTIME [facility] escitalopra m oxalate 10 mg tablet 03-04 00:00: 00 Yes TAKE 1 TABLET BY MOUTH EVERY MORNING [facility] traZODONE 50 mg tablet 0 03-04 00:00: 00 Yes TAKE 1 TABLET BY MOUTH EVERYDAY AT BEDTIME [facility] escitalopra m oxalate 10 mg tablet 03-04 00:00: 00 Yes TAKE 1 TABLET BY MOUTH EVERY MORNING [facility] traZODONE 50 mg tablet 0 03-04 00:00: 00 Yes TAKE 1 TABLET BY MOUTH EVERYDAY AT BEDTIME [facility] escitalopra m oxalate 10 mg tablet 0 03-04 00:00: 00 Yes TAKE 1 TABLET BY MOUTH EVERY MORNING [facility] traZODONE 50 mg tablet 03-04 00:00: 00 Yes TAKE 1 TABLET BY MOUTH EVERYDAY AT BEDTIME [facility] escitalopra m oxalate 10 mg tablet 03-04 00:00: 00 Yes TAKE 1 TABLET BY MOUTH EVERY MORNING [facility] escitalopra m oxalate 10 mg tablet 03-04 00:00: 00 07-17 00:00 :00 No TAKE 1 TABLET BY MOUTH EVERY MORNING [facility] escitalopra m oxalate 10 mg tablet 03-04 00:00: 00 07-17 00:00 :00 No TAKE 1 TABLET BY MOUTH EVERY MORNING [facility] No known medications No Un jac [facility] Immunizations Ordered Immunization Name Filled Immunization Name Date Status Comments Source HPV9 2023-02-21 00:00:00 Completed [facility] HPV9 2023-02-21 00:00:00 Completed [facility] HPV9 2023-02-21 00:00:00 Completed [facility] HPV9 2023-02-21 00:00:00 Completed [facility] HPV9 2023-02-21 00:00:00 Completed [facility] HPV9 2023-02-21 00:00:00 Completed [facility] HPV9 2023-02-21 00:00:00 Completed [facility] HPV9 2023-02-21 00:00:00 Completed [facility] HPV9 2023-02-21 00:00:00 Completed [facility] HPV9 2023-02-21 00:00:00 Completed [facility] HPV9 2023-02-21 00:00:00 Completed [facility] HPV9 2023-02-21 00:00:00 Completed [facility] TDAP 2017-10-16 00:00:00 Completed [facility] Influenza Virus Vaccine Quad IM 3+ YRS 2017-10-16 00:00:00 Completed [facility] Tdap 2017-10-16 00:00:00 Completed [facility] Influenza Virus Vaccine Quad IM 3+ YRS 2017-10-16 00:00:00 Completed [facility] TDAP 2017-10-16 00:00:00 Completed [facility] Influenza Virus Vaccine Quad IM 3+ YRS 2017-10-16 00:00:00 Completed [facility] TDAP 2017-10-16 00:00:00 Completed [facility] Influenza Virus Vaccine Quad IM 3+ YRS 2017-10-16 00:00:00 Completed [facility] TDAP 2017-10-16 00:00:00 Completed [facility] Influenza Virus Vaccine Quad IM 3+ YRS 2017-10-16 00:00:00 Completed [facility] TDAP 2017-10-16 00:00:00 Completed [facility] Influenza Virus Vaccine Quad IM 3+ YRS 2017-10-16 00:00:00 Completed [facility] TDAP 2017-10-16 00:00:00 Completed [facility] Influenza Virus Vaccine Quad IM 3+ YRS 2017-10-16 00:00:00 Completed [facility] Tdap 2017-10-16 00:00:00 Completed [facility] Influenza Virus Vaccine Quad IM 3+ YRS 2017-10-16 00:00:00 Completed [facility] TDAP 2017-10-16 00:00:00 Completed [facility] Influenza Virus Vaccine Quad IM 3+ YRS 2017-10-16 00:00:00 Completed [facility] TDAP 2017-10-16 00:00:00 Completed [facility] Influenza Virus Vaccine Quad IM 3+ YRS 2017-10-16 00:00:00 Completed [facility] TDAP 2017-10-16 00:00:00 Completed [facility] Influenza Virus Vaccine Quad IM 3+ YRS 2017-10-16 00:00:00 Completed [facility] TDAP 2017-10-16 00:00:00 Completed [facility] Influenza Virus Vaccine Quad IM 3+ YRS 2017-10-16 00:00:00 Completed [facility] TDAP 2017-10-16 00:00:00 Completed [facility] Influenza Virus Vaccine Quad IM 3+ YRS 2017-10-16 00:00:00 Completed [facility] TDAP 2017-10-16 00:00:00 Completed [facility] Influenza Virus Vaccine Quad IM 3+ YRS 2017-10-16 00:00:00 Completed [facility] TDAP 2017-10-16 00:00:00 Completed [facility] Influenza Virus Vaccine Quad IM 3+ YRS 2017-10-16 00:00:00 Completed [facility] TDAP 2017-10-16 00:00:00 Completed [facility] Influenza Virus Vaccine Quad IM 3+ YRS 2017-10-16 00:00:00 Completed [facility] Tdap 2017-10-16 00:00:00 Completed [facility] Influenza Virus Vaccine Quad IM 3+ YRS 2017-10-16 00:00:00 Completed [facility] TDAP 2017-10-16 00:00:00 Completed [facility] Influenza Virus Vaccine Quad IM 3+ YRS 2017-10-16 00:00:00 Completed [facility] TDAP 2017-10-16 00:00:00 Completed [facility] Influenza Virus Vaccine Quad IM 3+ YRS 2017-10-16 00:00:00 Completed [facility] TDAP 2017-10-16 00:00:00 Completed [facility] Influenza Virus Vaccine Quad IM 3+ YRS 2017-10-16 00:00:00 Completed [facility] TDAP 2017-10-16 00:00:00 Completed [facility] Influenza Virus Vaccine Quad IM 3+ YRS 2017-10-16 00:00:00 Completed [facility] TDAP 2017-10-16 00:00:00 Completed [facility] Influenza Virus Vaccine Quad IM 3+ YRS 2017-10-16 00:00:00 Completed [facility] TDAP 2017-10-16 00:00:00 Completed [facility] Influenza Virus Vaccine Quad IM 3+ YRS 2017-10-16 00:00:00 Completed [facility] Tdap 2017-10-16 00:00:[address] [facility] Influenza Virus Vaccine Quad IM 3+ YRS 2017-10-16 00:00:00 Completed [facility] TDAP 2017-10-16 00:00:00 Completed [facility] Influenza Virus Vaccine Quad IM 3+ YRS 2017-10-16 00:00:00 Completed [facility] TDAP 2017-10-16 00:00:00 Completed [facility] Influenza Virus Vaccine Quad IM 3+ YRS 2017-10-16 00:00:00 Completed [facility] Tdap 2017-10-16 00:00:00 Completed [facility] Influenza Virus Vaccine Quad IM 3+ YRS 2017-10-16 00:00:00 Completed [facility] Tdap 2017-10-16 00:00:00 Completed [facility] Influenza Virus Vaccine Quad IM 3+ YRS 2017-10-16 00:00:00 Completed [facility] Tdap 2017-10-16 00:00:00 Completed [facility] Influenza Virus Vaccine Quad IM 3+ YRS 2017-10-16 00:00:00 Completed [facility] Tdap 2017-10-16 00:00:00 Completed [facility] Influenza Virus Vaccine Quad IM 3+ YRS 2017-10-16 00:00:00 Completed [facility] Tdap 2017-10-16 00:00:00 Completed [facility] Influenza Virus Vaccine Quad IM 3+ YRS 2017-10-16 00:00:00 Completed [facility] TDAP 2017-10-16 00:00:00 Completed [facility] Influenza Virus Vaccine Quad IM 3+ YRS 2017-10-16 00:00:00 Completed [facility] TDAP 2017-10-16 00:00:00 Completed [facility] Influenza Virus Vaccine Quad IM 3+ YRS 2017-10-16 00:00:00 Completed [facility] TDAP 2017-10-16 00:00:00 Completed [facility] Influenza Virus Vaccine Quad IM 3+ YRS 2017-10-16 00:00:00 Completed [facility] TDAP 2017-10-16 00:00:00 Completed [facility] Influenza Virus Vaccine Quad IM 3+ YRS 2017-10-16 00:00:00 Completed [facility] TDAP 2017-10-16 00:00:00 Completed [facility] Tdap 2017-10-16 00:00:00 Completed [facility] Influenza Virus Vaccine Quad IM 3+ YRS 2017-10-16 00:00:00 Completed [facility] Influenza Virus Vaccine Quad IM 3+ YRS 2017-10-16 00:00:00 Completed [facility] TDAP 2017-10-16 00:00:00 Completed [facility] Influenza Virus Vaccine Quad IM 3+ YRS 2017-10-16 00:00:00 Completed [facility] TDAP 2017-10-16 00:00:00 Completed [facility] Influenza Virus Vaccine Quad IM 3+ YRS 2017-10-16 00:00:00 Completed [facility] TDAP 2017-10-16 00:00:00 Completed [facility] Influenza Virus Vaccine Quad IM 3+ YRS 2017-10-16 00:00:00 Completed [facility] TDAP 2017-10-16 00:00:00 Completed [facility] Influenza Virus Vaccine Quad IM 3+ YRS 2017-10-16 00:00:00 Completed [facility] TDAP 2017-10-16 00:00:00 Completed [facility] Influenza Virus Vaccine Quad IM 3+ YRS 2017-10-16 00:00:00 Completed [facility] Tdap 2017-10-16 00:00:00 Completed [facility] Influenza Virus Vaccine Quad IM 3+ YRS 2017-10-16 00:00:00 Completed [facility] TDAP 2017-10-16 00:00:00 Completed [facility] Influenza Virus Vaccine Quad IM 3+ YRS 2017-10-16 00:00:00 Completed [facility] TDAP 2017-10-16 00:00:00 Completed [facility] Influenza Virus Vaccine Quad IM 3+ YRS 2017-10-16 00:00:00 Completed [facility] TDAP 2017-10-16 00:00:00 Completed [facility] Influenza Virus Vaccine Quad IM 3+ YRS 2017-10-16 00:00:00 Completed [facility] TDAP 2017-10-16 00:00:00 Completed [facility] Influenza Virus Vaccine Quad IM 3+ YRS 2017-10-16 00:00:00 Completed [facility] TDAP 2017-10-16 00:00:00 Completed [facility] Influenza Virus Vaccine Quad IM 3+ YRS 2017-10-16 00:00:00 Completed [facility] TDAP 2017-10-16 00:00:00 Completed [facility] Influenza Virus Vaccine Quad IM 3+ YRS 2017-10-16 00:00:00 Completed [facility] TDAP 2017-10-16 00:00:00 Completed [facility] Influenza Virus Vaccine Quad IM 3+ YRS 2017-10-16 00:00:00 Completed [facility] TDAP 2017-10-16 00:00:00 Completed [facility] Influenza Virus Vaccine Quad IM 3+ YRS 2017-10-16 00:00:00 Completed [facility] TDAP 2017-10-16 00:00:00 Completed [facility] Influenza Virus Vaccine Quad IM 3+ YRS 2017-10-16 00:00:00 Completed [facility] Tdap 2017-10-16 00:00:00 Completed [facility] Influenza Virus Vaccine Quad IM 3+ YRS 2017-10-16 00:00:00 Completed [facility] TDAP 2017-10-16 00:00:00 Completed [facility] Influenza Virus Vaccine Quad IM 3+ YRS 2017-10-16 00:00:00 Completed [facility] TDAP 2017-10-16 00:00:00 Completed [facility] Influenza Virus Vaccine Quad IM 3+ YRS 2017-10-16 00:00:00 Completed [facility] TDAP 2017-10-16 00:00:00 Completed [facility] Influenza Virus Vaccine Quad IM 3+ YRS 2017-10-16 00:00:00 Completed [facility] TDAP 2017-10-16 00:00:00 Completed [facility] Influenza Virus Vaccine Quad IM 3+ YRS 2017-10-16 00:00:00 Completed [facility] TDAP 2017-10-16 00:00:00 Completed [facility] Influenza Virus Vaccine Quad IM 3+ YRS 2017-10-16 00:00:00 Completed [facility] TDAP 2017-10-16 00:00:00 Completed [facility] Influenza Virus Vaccine Quad IM 3+ YRS 2017-10-16 00:00:00 Completed [facility] TDAP 2017-10-16 00:00:00 Completed [facility] Influenza Virus Vaccine Quad IM 3+ YRS 2017-10-16 00:00:00 Completed [facility] Tdap 2017-10-16 00:00:00 Completed [facility] Influenza Virus Vaccine Quad IM 3+ YRS 2017-10-16 00:00:00 Completed [facility] TDAP 2017-10-16 00:00:00 Completed [facility] Influenza Virus Vaccine Quad IM 3+ YRS 2017-10-16 00:00:00 Completed [facility] TDAP 2017-10-16 00:00:00 Completed [facility] Influenza Virus Vaccine Quad IM 3+ YRS 2017-10-16 00:00:00 Completed [facility] TDAP 2017-10-16 00:00:00 Completed [facility] Influenza Virus Vaccine Quad IM 3+ YRS 2017-10-16 00:00:00 Completed [facility] TDAP 2017-10-16 00:00:00 Completed [facility] Influenza Virus Vaccine Quad IM 3+ YRS 2017-10-16 00:00:00 Completed [facility] Tdap 2017-10-16 00:00:00 Completed [facility] TDAP 2017-10-16 00:00:00 Completed [facility] Influenza Virus Vaccine Quad IM 3+ YRS 2017-10-16 00:00:00 Completed [facility] Influenza Virus Vaccine Quad IM 3+ YRS 2017-10-16 00:00:00 Completed [facility] TDAP 2017-10-16 00:00:00 Completed [facility] Influenza Virus Vaccine Quad IM 3+ YRS 2017-10-16 00:00:00 Completed [facility] TDAP 2017-10-16 00:00:00 Completed [facility] Influenza Virus Vaccine Quad IM 3+ YRS 2017-10-16 00:00:00 Completed [facility] TDAP 2016-01-18 00:00:00 Completed [facility] Tdap 2016-01-18 00:00:00 Completed [facility] TDAP 2016-01-18 00:00:00 Completed [facility] TDAP 2016-01-18 00:00:00 Completed [facility] TDAP 2016-01-18 00:00:00 Completed [facility] TDAP 2016-01-18 00:00:00 Completed [facility] TDAP 2016-01-18 00:00:00 Completed [facility] Tdap 2016-01-18 00:00:00 Completed [facility] TDAP 2016-01-18 00:00:00 Completed [facility] TDAP 2016-01-18 00:00:00 Completed [facility] TDAP 2016-01-18 00:00:00 Completed [facility] TDAP 2016-01-18 00:00:00 Completed [facility] TDAP 2016-01-18 00:00:00 Completed [facility] TDAP 2016-01-18 00:00:00 Completed [facility] TDAP 2016-01-18 00:00:00 Completed [facility] Tdap 2016-01-18 00:00:00 Completed [facility] TDAP 2016-01-18 00:00:00 Completed [facility] TDAP 2016-01-18 00:00:00 Completed [facility] TDAP 2016-01-18 00:00:00 Completed [facility] TDAP 2016-01-18 00:00:00 Completed [facility] TDAP 2016-01-18 00:00:00 Completed [facility] TDAP 2016-01-18 00:00:00 Completed [facility] TDAP 2016-01-18 00:00:00 Completed [facility] Tdap 2016-01-18 00:00:00 Completed [facility] TDAP 2016-01-18 00:00:00 Completed [facility] TDAP 2016-01-18 00:00:00 Completed [facility] Tdap 2016-01-18 00:00:00 Completed [facility] Tdap 2016-01-18 00:00:00 Completed [facility] Tdap 2016-01-18 00:00:00 Completed [facility] Tdap 2016-01-18 00:00:00 Completed [facility] Tdap 2016-01-18 00:00:00 Completed [facility] TDAP 2016-01-18 00:00:00 Completed [facility] TDAP 2016-01-18 00:00:00 Completed [facility] TDAP 2016-01-18 00:00:[address] [facility] TDAP 2016-01-18 00:00:[address] [facility] Tdap 2016-01-18 00:00:[address] [facility] TDAP 2016-01-18 00:00:00 Completed [facility] TDAP 2016-01-18 00:00:00 Completed [facility] TDAP 2016-01-18 00:00:00 Completed [facility] TDAP 2016-01-18 00:00:00 Completed [facility] TDAP 2016-01-18 00:00:00 Completed [facility] Tdap 2016-01-18 00:00:00 Completed [facility] TDAP 2016-01-18 00:00:00 Completed [facility] TDAP 2016-01-18 00:00:00 Completed [facility] TDAP 2016-01-18 00:00:00 Completed [facility] TDAP 2016-01-18 00:00:00 Completed [facility] TDAP 2016-01-18 00:00:00 Completed [facility] TDAP 2016-01-18 00:00:00 Completed [facility] TDAP 2016-01-18 00:00:00 Completed [facility] TDAP 2016-01-18 00:00:00 Completed [facility] TDAP 2016-01-18 00:00:00 Completed [facility] Tdap 2016-01-18 00:00:00 Completed [facility] TDAP 2016-01-18 00:00:00 Completed [facility] TDAP 2016-01-18 00:00:00 Completed [facility] TDAP 2016-01-18 00:00:00 Completed [facility] TDAP 2016-01-18 00:00:00 Completed [facility] TDAP 2016-01-18 00:00:00 Completed [facility] TDAP 2016-01-18 00:00:00 Completed [facility] TDAP 2016-01-18 00:00:[address] [facility] Tdap 2016-01-18 00:00:[address] [facility] TDAP 2016-01-18 00:00:00 Completed [facility] TDAP 2016-01-18 00:00:00 Completed [facility] TDAP 2016-01-18 00:00:00 Completed [facility] TDAP 2016-01-18 00:00:00 Completed [facility] TDAP 2016-01-18 00:00:[address] [facility] Tdap 2016-01-18 00:00:00 Completed [facility] TDAP 2016-01-18 00:00:00 Completed [facility] TDAP 2016-01-18 00:00:00 Completed [facility] TDAP 2016-01-18 00:00:00 Completed [facility] TDAP 2014-05-18 00:00:00 Completed [facility] Tdap 2014-05-18 00:00:00 Completed [facility] TDAP 2014-05-18 00:00:00 Completed [facility] TDAP 2014-05-18 00:00:00 Completed [facility] TDAP 2014-05-18 00:00:00 Completed [facility] TDAP 2014-05-18 00:00:00 Completed [facility] Tdap 2014-05-18 00:00:00 Completed [facility] TDAP 2014-05-18 00:00:00 Completed [facility] TDAP 2014-05-18 00:00:00 Completed [facility] TDAP 2014-05-18 00:00:00 Completed [facility] TDAP 2014-05-18 00:00:00 Completed [facility] TDAP 2014-05-18 00:00:00 Completed [facility] TDAP 2014-05-18 00:00:00 Completed [facility] TDAP 2014-05-18 00:00:00 Completed [facility] TDAP 2014-05-18 00:00:00 Completed [facility] Tdap 2014-05-18 00:00:00 Completed [facility] TDAP 2014-05-18 00:00:00 Completed [facility] TDAP 2014-05-18 00:00:[address] [facility] TDAP 2014-05-18 00:00:00 Completed [facility] TDAP 2014-05-18 00:00:00 Completed [facility] TDAP 2014-05-18 00:00:00 Completed [facility] TDAP 2014-05-18 00:00:[address] [facility] TDAP 2014-05-18 00:00:00 Completed [facility] Tdap 2014-05-18 00:00:[address] [facility] TDAP 2014-05-18 00:00:[address] [facility] TDAP 2014-05-18 00:00:00 Completed [facility] Tdap 2014-05-18 00:00:00 Completed [facility] Tdap 2014-05-18 00:00:00 Completed [facility] Tdap 2014-05-18 00:00:00 Completed [facility] Tdap 2014-05-18 00:00:00 Completed [facility] Tdap 2014-05-18 00:00:00 Completed [facility] Tdap 2014-05-18 00:00:[address] [facility] TDAP 2014-05-18 00:00:00 Completed [facility] TDAP 2014-05-18 00:00:00 Completed [facility] TDAP 2014-05-18 00:00:00 Completed [facility] TDAP 2014-05-18 00:00:00 Completed [facility] Tdap 2014-05-18 00:00:00 Completed [facility] TDAP 2014-05-18 00:00:[address] [facility] TDAP 2014-05-18 00:00:[address] [facility] TDAP 2014-05-18 00:00:00 Completed [facility] TDAP 2014-05-18 00:00:00 Completed [facility] Tdap 2014-05-18 00:00:00 Completed [facility] TDAP 2014-05-18 00:00:[address] [facility] TDAP 2014-05-18 00:00:[address] [facility] TDAP 2014-05-18 00:00:[address] [facility] TDAP 2014-05-18 00:00:[address] [facility] TDAP 2014-05-18 00:00:[address] [facility] TDAP 2014-05-18 00:00:[address] [facility] TDAP 2014-05-18 00:00:[address] [facility] TDAP 2014-05-18 00:00:[address] [facility] TDAP 2014-05-18 00:00:[address] [facility] Tdap 2014-05-18 00:00:[address] [facility] TDAP 2014-05-18 00:00:00 Completed [facility] TDAP 2014-05-18 00:00:00 Completed [facility] TDAP 2014-05-18 00:00:00 Completed [facility] TDAP 2014-05-18 00:00:00 Completed [facility] TDAP 2014-05-18 00:00:00 Completed [facility] TDAP 2014-05-18 00:00:00 Completed [facility] TDAP 2014-05-18 00:00:00 Completed [facility] TDAP 2014-05-18 00:00:00 Completed [facility] Tdap 2014-05-18 00:00:00 Completed [facility] TDAP 2014-05-18 00:00:00 Completed [facility] TDAP 2014-05-18 00:00:00 Completed [facility] TDAP 2014-05-18 00:00:00 Completed [facility] TDAP 2014-05-18 00:00:00 Completed [facility] TDAP 2014-05-18 00:00:00 Completed [facility] Tdap 2014-05-18 00:00:00 Completed [facility] TDAP 2014-05-18 00:00:00 Completed [facility] TDAP 2014-05-18 00:00:00 Completed [facility] TDAP 2014-05-18 00:00:00 Completed [facility] Pneumococcal Polysaccharide, PPSV23 (PNEUMOVAX) 2008-05-11 00:00:00 Completed [facility] Pneumococcal Polysaccharide, PPSV23 (PNEUMOVAX) 2008-05-11 00:00:00 Completed [facility] Pneumococcal Polysaccharide, PPSV23 (PNEUMOVAX) 2008-05-11 00:00:00 Completed [facility] Pneumococcal Polysaccharide, PPSV23 (PNEUMOVAX) 2008-05-11 00:00:00 Completed [facility] Pneumococcal Polysaccharide, PPSV23 (PNEUMOVAX) 2008-05-11 00:00:00 Completed [facility] Pneumococcal Polysaccharide, PPSV23 (PNEUMOVAX) 2008-05-11 00:00:00 Completed [facility] Pneumococcal Polysaccharide, PPSV23 (PNEUMOVAX) 2008-05-11 00:00:00 Completed [facility] Pneumococcal Polysaccharide, PPSV23 (PNEUMOVAX) 2008-05-11 00:00:00 Completed [facility] Pneumococcal Polysaccharide, PPSV23 (PNEUMOVAX) 2008-05-11 00:00:00 Completed [facility] Pneumococcal Polysaccharide, PPSV23 (PNEUMOVAX) 2008-05-11 00:00:00 Completed [facility] Pneumococcal Polysaccharide, PPSV23 (PNEUMOVAX) 2008-05-11 00:00:00 Completed [facility] Pneumococcal Polysaccharide, PPSV23 (PNEUMOVAX) 2008-05-11 00:00:00 Completed [facility] Pneumococcal Polysaccharide, PPSV23 (PNEUMOVAX) 2008-05-11 00:00:00 Completed [facility] Pneumococcal Polysaccharide, PPSV23 (PNEUMOVAX) 2008-05-11 00:00:00 Completed [facility] Pneumococcal Polysaccharide, PPSV23 (PNEUMOVAX) 2008-05-11 00:00:00 Completed [facility] Pneumococcal Polysaccharide, PPSV23 (PNEUMOVAX) 2008-05-11 00:00:00 Completed [facility] Pneumococcal Polysaccharide, PPSV23 (PNEUMOVAX) 2008-05-11 00:00:00 Completed [facility] Pneumococcal Polysaccharide, PPSV23 (PNEUMOVAX) 2008-05-11 00:00:00 Completed [facility] Pneumococcal Polysaccharide, PPSV23 (PNEUMOVAX) 2008-05-11 00:00:00 Completed [facility] Pneumococcal Polysaccharide, PPSV23 (PNEUMOVAX) 2008-05-11 00:00:00 Completed [facility] Pneumococcal Polysaccharide, PPSV23 (PNEUMOVAX) 2008-05-11 00:00:00 Completed [facility] Pneumococcal Polysaccharide, PPSV23 (PNEUMOVAX) 2008-05-11 00:00:00 Completed [facility] Pneumococcal Polysaccharide, PPSV23 (PNEUMOVAX) 2008-05-11 00:00:00 Completed [facility] Pneumococcal Polysaccharide, PPSV23 (PNEUMOVAX) 2008-05-11 00:00:00 Completed [facility] Pneumococcal Polysaccharide, PPSV23 (PNEUMOVAX) 2008-05-11 00:00:00 Completed [facility] Pneumococcal Polysaccharide, PPSV23 (PNEUMOVAX) 2008-05-11 00:00:00 Completed [facility] Pneumococcal Polysaccharide, PPSV23 (PNEUMOVAX) 2008-05-11 00:00:00 Completed [facility] Pneumococcal Polysaccharide, PPSV23 (PNEUMOVAX) 2008-05-11 00:00:00 Completed [facility] Pneumococcal Polysaccharide, PPSV23 (PNEUMOVAX) 2008-05-11 00:00:00 Completed [facility] Pneumococcal Polysaccharide, PPSV23 (PNEUMOVAX) 2008-05-11 00:00:00 Completed [facility] Pneumococcal Polysaccharide, PPSV23 (PNEUMOVAX) 2008-05-11 00:00:00 Completed [facility] Pneumococcal Polysaccharide, PPSV23 (PNEUMOVAX) 2008-05-11 00:00:00 Completed [facility] Pneumococcal Polysaccharide, PPSV23 (PNEUMOVAX) 2008-05-11 00:00:00 Completed [facility] Pneumococcal Polysaccharide, PPSV23 (PNEUMOVAX) 2008-05-11 00:00:00 Completed [facility] Pneumococcal Polysaccharide, PPSV23 (PNEUMOVAX) 2008-05-11 00:00:00 Completed [facility] Pneumococcal Polysaccharide, PPSV23 (PNEUMOVAX) 2008-05-11 00:00:00 Completed [facility] Pneumococcal Polysaccharide, PPSV23 (PNEUMOVAX) 2008-05-11 00:00:00 Completed [facility] Pneumococcal Polysaccharide, PPSV23 (PNEUMOVAX) 2008-05-11 00:00:00 Completed [facility] Pneumococcal Polysaccharide, PPSV23 (PNEUMOVAX) 2008-05-11 00:00:00 Completed [facility] Pneumococcal Polysaccharide, PPSV23 (PNEUMOVAX) 2008-05-11 00:00:00 Completed [facility] Pneumococcal Polysaccharide, PPSV23 (PNEUMOVAX) 2008-05-11 00:00:00 Completed [facility] Pneumococcal Polysaccharide, PPSV23 (PNEUMOVAX) 2008-05-11 00:00:00 Completed [facility] Pneumococcal Polysaccharide, PPSV23 (PNEUMOVAX) 2008-05-11 00:00:00 Completed [facility] Pneumococcal Polysaccharide, PPSV23 (PNEUMOVAX) 2008-05-11 00:00:00 Completed [facility] Pneumococcal Polysaccharide, PPSV23 (PNEUMOVAX) 2008-05-11 00:00:00 Completed [facility] Pneumococcal Polysaccharide, PPSV23 (PNEUMOVAX) 2008-05-11 00:00:00 Completed [facility] Pneumococcal Polysaccharide, PPSV23 (PNEUMOVAX) 2008-05-11 00:00:00 Completed [facility] Pneumococcal Polysaccharide, PPSV23 (PNEUMOVAX) 2008-05-11 00:00:00 Completed [facility] Pneumococcal Polysaccharide, PPSV23 (PNEUMOVAX) 2008-05-11 00:00:00 Completed [facility] Pneumococcal Polysaccharide, PPSV23 (PNEUMOVAX) 2008-05-11 00:00:00 Completed [facility] Pneumococcal Polysaccharide, PPSV23 (PNEUMOVAX) 2008-05-11 00:00:00 Completed [facility] Pneumococcal Polysaccharide, PPSV23 (PNEUMOVAX) 2008-05-11 00:00:00 Completed [facility] Pneumococcal Polysaccharide, PPSV23 (PNEUMOVAX) 2008-05-11 00:00:00 Completed [facility] Pneumococcal Polysaccharide, PPSV23 (PNEUMOVAX) 2008-05-11 00:00:00 Completed [facility] Pneumococcal Polysaccharide, PPSV23 (PNEUMOVAX) 2008-05-11 00:00:00 Completed [facility] Pneumococcal Polysaccharide, PPSV23 (PNEUMOVAX) 2008-05-11 00:00:00 Completed [facility] Pneumococcal Polysaccharide, PPSV23 (PNEUMOVAX) 2008-05-11 00:00:00 Completed [facility] Pneumococcal Polysaccharide, PPSV23 (PNEUMOVAX) 2008-05-11 00:00:00 Completed [facility] Pneumococcal Polysaccharide, PPSV23 (PNEUMOVAX) 2008-05-11 00:00:00 Completed [facility] Pneumococcal Polysaccharide, PPSV23 (PNEUMOVAX) 2008-05-11 00:00:00 Completed [facility] Pneumococcal Polysaccharide, PPSV23 (PNEUMOVAX) 2008-05-11 00:00:00 Completed [facility] Pneumococcal Polysaccharide, PPSV23 (PNEUMOVAX) 2008-05-11 00:00:00 Completed [facility] Pneumococcal Polysaccharide, PPSV23 (PNEUMOVAX) 2008-05-11 00:00:00 Completed [facility] Pneumococcal Polysaccharide, PPSV23 (PNEUMOVAX) 2008-05-11 00:00:00 Completed [facility] Pneumococcal Polysaccharide, PPSV23 (PNEUMOVAX) 2008-05-11 00:00:00 Completed [facility] Pneumococcal Polysaccharide, PPSV23 (PNEUMOVAX) 2008-05-11 00:00:00 Completed [facility] Pneumococcal Polysaccharide, PPSV23 (PNEUMOVAX) 2008-05-11 00:00:00 Completed [facility] Pneumococcal Polysaccharide, PPSV23 (PNEUMOVAX) 2008-05-11 00:00:00 Completed [facility] Pneumococcal Polysaccharide, PPSV23 (PNEUMOVAX) 2008-05-11 00:00:00 Completed [facility] Pneumococcal Polysaccharide, PPSV23 (PNEUMOVAX) 2008-05-11 00:00:00 Completed [facility] Pneumococcal Polysaccharide, PPSV23 (PNEUMOVAX) Unknown Completed [facility] TDAP Unknown Completed [facility] TDAP Unknown Completed [facility] TDAP Unknown Completed [facility] Influenza Virus Vaccine Quad IM 3+ YRS Unknown Completed [facility] HPV9 Unknown Completed [facility] Pneumococcal Polysaccharide, PPSV23 (PNEUMOVAX) Unknown Completed [facility] TDAP Unknown Completed [facility] TDAP Unknown Completed [facility] TDAP Unknown Completed [facility] Influenza Virus Vaccine Quad IM 3+ YRS Unknown Completed [facility] Pneumococcal Polysaccharide, PPSV23 (PNEUMOVAX) Unknown Completed [facility] TDAP Unknown Completed [facility] TDAP Unknown Completed [facility] TDAP Unknown Completed [facility] Influenza Virus Vaccine Quad IM 3+ YRS Unknown Completed [facility] Pneumococcal Polysaccharide, PPSV23 (PNEUMOVAX) Unknown Completed [facility] TDAP Unknown Completed [facility] TDAP Unknown Completed [facility] TDAP Unknown Completed [facility] Influenza Virus Vaccine Quad IM 3+ YRS Unknown Completed [facility] Pneumococcal Polysaccharide, PPSV23 (PNEUMOVAX) Unknown Completed [facility] TDAP Unknown Completed [facility] TDAP Unknown Completed [facility] TDAP Unknown Completed [facility] Influenza Virus Vaccine Quad IM 3+ YRS Unknown Completed [facility] Pneumococcal Polysaccharide, PPSV23 (PNEUMOVAX) Unknown Completed [facility] TDAP Unknown Completed [facility] TDAP Unknown Completed [facility] TDAP Unknown Completed [facility] Influenza Virus Vaccine Quad IM 3+ YRS Unknown Completed [facility] Pneumococcal Polysaccharide, PPSV23 (PNEUMOVAX) Unknown Completed [facility] TDAP Unknown Completed [facility] TDAP Unknown Completed [facility] TDAP Unknown Completed [facility] Influenza Virus Vaccine Quad IM 3+ YRS Unknown Completed [facility] Pneumococcal Polysaccharide, PPSV23 (PNEUMOVAX) Unknown Completed [facility] TDAP Unknown Completed [facility] TDAP Unknown Completed [facility] TDAP Unknown Completed [facility] Influenza Virus Vaccine Quad IM 3+ YRS Unknown Completed [facility] Pneumococcal Polysaccharide, PPSV23 (PNEUMOVAX) Unknown Completed [facility] TDAP Unknown Completed [facility] TDAP Unknown Completed [facility] TDAP Unknown Completed [facility] Influenza Virus Vaccine Quad IM 3+ YRS Unknown Completed [facility] Pneumococcal Polysaccharide, PPSV23 (PNEUMOVAX) Unknown Completed [facility] TDAP Unknown Completed [facility] TDAP Unknown Completed [facility] TDAP Unknown Completed [facility] Influenza Virus Vaccine Quad IM 3+ YRS Unknown Completed [facility] Pneumococcal Polysaccharide, PPSV23 (PNEUMOVAX) Unknown Completed [facility] TDAP Unknown Completed [facility] TDAP Unknown Completed [facility] TDAP Unknown Completed [facility] Influenza Virus Vaccine Quad IM 3+ YRS Unknown Completed [facility] Pneumococcal Polysaccharide, PPSV23 (PNEUMOVAX) Unknown Completed [facility] TDAP Unknown Completed [facility] TDAP Unknown Completed [facility] TDAP Unknown Completed [facility] Influenza Virus Vaccine Quad IM 3+ YRS Unknown Completed [facility] Pneumococcal Polysaccharide, PPSV23 (PNEUMOVAX) Unknown Completed [facility] TDAP Unknown Completed [facility] TDAP Unknown Completed [facility] TDAP Unknown Completed [facility] Influenza Virus Vaccine Quad IM 3+ YRS Unknown Completed [facility] Vital Signs Vital Name Observation Time Observation Value Comments S ource Systolic blood pressure 2023-06-28 23:34:00 141 mm[Hg] [facility] Diastolic blood pressure 2023-06-28 23:34:00 86 mm[Hg] [facility] Heart rate 2023-06-28 23:33:00 107 /min [facility] Body temperature 2023-06-28 23:33:00 36.83 Zainab [facility] Respiratory rate 2023-06-28 23:33:00 18 /min [facility] Body height 2023-06-28 23:33:00 154.9 cm [facility] Body weight 2023-06-28 23:33:00 121.972 kg [facility] BMI 2023-06-28 23:33:00 50.81 kg/m2 [facility] Oxygen saturation in Arterial blood by Pulse oximetry 2023-06-28 23:33:00 98 /min [facility] Systolic blood pressure 2023-03-07 16:14:00 153 mm[Hg] [facility] Diastolic blood pressure 2023-03-07 16:14:00 89 mm[Hg] [facility] Heart rate 2023-03-07 16:13:00 79 /min [facility] Body temperature 2023-03-07 16:13:00 36.44 Zainab [facility] Respiratory rate 2023-03-07 16:13:00 16 /min [facility] Body weight 2023-03-07 16:13:00 123.378 kg [facility] BMI 2023-03-07 16:13:00 51.39 kg/m2 [facility] Oxygen saturation in Arterial blood by Pulse oximetry 2023-03-07 16:13:00 98 /min [facility] Systolic blood pressure 2023-02-21 13:28:00 128 mm[Hg] [facility] Diastolic blood pressure 2023-02-21 13:28:00 75 mm[Hg] [facility] Heart rate 2023-02-21 13:28:00 65 /min [facility] Body temperature 2023-02-21 13:28:00 36 Zainab [facility] Respiratory rate 2023-02-21 13:28:00 18 /min [facility] Body height 2023-02-21 13:28:00 154.9 cm [facility] Body weight 2023-02-21 13:28:00 122.244 kg [facility] BMI 2023-02-21 13:28:00 50.92 kg/m2 [facility] Systolic blood pressure 2022-11-24 20:34:00 155 mm[Hg] [facility] Diastolic blood pressure 2022-11-24 20:34:00 87 mm[Hg] [facility] Heart rate 2022-11-24 20:22:00 73 /min [facility] Body temperature 2022-11-24 20:22:00 36.67 Zainab [facility] Respiratory rate 2022-11-24 20:22:00 20 /min [facility] Body height 2022-11-24 20:22:00 154.9 cm [facility] Body weight 2022-11-24 20:22:00 123.605 kg [facility] BMI 2022-11-24 20:22:00 51.49 kg/m2 [facility] Oxygen saturation in Arterial blood by Pulse oximetry 2022-11-24 20:22:00 98 /min [facility] Systolic blood pressure 2022-07-17 15:56:00 137 mm[Hg] [facility] Diastolic blood pressure 2022-07-17 15:56:00 79 mm[Hg] [facility] Heart rate 2022-07-17 15:56:00 73 /min [facility] Body temperature 2022-07-17 15:56:00 37 Zainab [facility] Respiratory rate 2022-07-17 15:56:00 18 /min [facility] Body height 2022-07-17 15:56:00 154.9 cm [facility] Body weight 2022-07-17 15:56:00 123.242 kg [facility] BMI 2022-07-17 15:56:00 51.34 kg/m2 [facility] Oxygen saturation in Arterial blood by Pulse oximetry 2022-07-17 15:56:00 95 /min [facility] Systolic blood pressure 2022-06-13 00:43:00 152 mm[Hg] [facility] Diastolic blood pressure 2022-06-13 00:43:00 98 mm[Hg] [facility] Heart rate 2022-06-13 00:41:00 90 /min [facility] Body temperature 2022-06-13 00:41:00 37.17 Zainab [facility] Respiratory rate 2022-06-13 00:41:00 16 /min [facility] Body height 2022-06-13 00:41:00 154.9 cm [facility] Body weight 2022-06-13 00:41:00 126.508 kg [facility] BMI 2022-06-13 00:41:00 52.70 kg/m2 [facility] Oxygen saturation in Arterial blood by Pulse oximetry 2022-06-13 00:41:00 97 /min [facility] Systolic blood pressure 2022-04-14 18:03:00 126 mm[Hg] [facility] Diastolic blood pressure 2022-04-14 18:03:00 87 mm[Hg] [facility] Heart rate 2022-04-14 18:03:00 83 /min [facility] Body temperature 2022-04-14 18:03:00 36.89 Zainab [facility] Respiratory rate 2022-04-14 18:03:00 18 /min [facility] Body height 2022-04-14 18:03:00 154.9 cm [facility] Body weight 2022-04-14 18:03:00 126.508 kg [facility] BMI 2022-04-14 18:03:00 52.70 kg/m2 [facility] Oxygen saturation in Arterial blood by Pulse oximetry 2022-04-14 18:03:00 97 /min [facility] Body weight 2022-04-03 18:36:00 126.554 kg [facility] BMI 2022-04-03 18:36:00 52.72 kg/m2 [facility] Oxygen saturation in Arterial blood by Pulse oximetry 2022-04-03 18:36:00 97 /min [facility] Systolic blood pressure 2022-04-03 18:36:00 146 mm[Hg] [facility] Diastolic blood pressure 2022-04-03 18:36:00 86 mm[Hg] [facility] Heart rate 2022-04-03 18:36:00 84 /min [facility] Body temperature 2022-04-03 18:36:00 37.11 Zainab [facility] Respiratory rate 2022-04-03 18:36:00 18 /min [facility] Body height 2022-04-03 18:36:00 154.9 cm [facility] Systolic blood pressure 2022-03-19 14:01:00 154 mm[Hg] [facility] Diastolic blood pressure 2022-03-19 14:01:00 82 mm[Hg] [facility] Heart rate 2022-03-19 14:01:00 61 /min [facility] Body temperature 2022-03-19 14:01:00 36.83 Zainab [facility] Respiratory rate 2022-03-19 14:01:00 18 /min [facility] Body height 2022-03-19 14:01:00 154.9 cm [facility] Body weight 2022-03-19 14:01:00 124.739 kg [facility] BMI 2022-03-19 14:01:00 51.96 kg/m2 [facility] Oxygen saturation in Arterial blood by Pulse oximetry 2022-03-19 14:01:00 100 /min [facility] Systolic blood pressure 2021-10-01 18:26:00 111 mm[Hg] [facility] Diastolic blood pressure 2021-10-01 18:26:00 76 mm[Hg] [facility] Heart rate 2021-10-01 18:26:00 103 /min [facility] Body temperature 2021-10-01 18:26:00 36.89 Zainab [facility] Respiratory rate 2021-10-01 18:26:00 16 /min [facility] Body height 2021-10-01 18:26:00 154.9 cm [facility] Body weight 2021-10-01 18:26:00 129.048 kg [facility] BMI 2021-10-01 18:26:00 53.76 kg/m2 [facility] Oxygen saturation in Arterial blood by Pulse oximetry 2021-10-01 18:26:00 100 /min [facility] Heart rate 2020-08-04 21:50:00 74 /min [facility] Respiratory rate 2020-08-04 21:50:00 23 /min [facility] Oxygen saturation in Arterial blood by Pulse oximetry 2020-08-04 21:50:00 95 /min [facility] Systolic blood pressure 2020-08-04 21:35:00 106 mm[Hg] [facility] Diastolic blood pressure 2020-08-04 21:35:00 63 mm[Hg] [facility] Body temperature 2020-08-04 20:49:00 36.5 Zainab [facility] Body height 2020-08-04 18:08:00 154.9 cm [facility] Body weight 2020-08-04 18:08:00 124.739 kg [facility] BMI 2020-08-04 18:08:00 51.96 kg/m2 [facility] Heart rate 2020-08-04 21:50:00 74 /min [facility] Respiratory rate 2020-08-04 21:50:00 23 /min [facility] Oxygen saturation in Arterial blood by Pulse oximetry 2020-08-04 21:50:00 95 /min [facility] Systolic blood pressure 2020-08-04 21:35:00 106 mm[Hg] [facility] Diastolic blood pressure 2020-08-04 21:35:00 63 mm[Hg] [facility] Body temperature 2020-08-04 20:49:00 36.5 Zainab [facility] Body height 2020-08-04 18:08:[address] [facility] 2020-08-04 18:08:[address] [facility] BMI 2020-08-04 18:08:00 51.96 kg/m2 [facility] Systolic blood pressure 2020-06-05 18:07:00 123 mm[Hg] [place] [facility] Diastolic blood pressure 2020-06-05 18:07:00 75 mm[Hg] [facility] Heart rate 2020-06-05 18:07:00 70 /min [facility] Body temperature 2020-06-05 18:07:00 36.72 Zainab [facility] Respiratory rate 2020-06-05 18:07:00 16 /min [facility] Body height 2020-06-05 18:07:00 156.2 cm [facility] Body weight 2020-06-05 18:07:00 129.91 kg [facility] BMI 2020-06-05 18:07:00 53.24 kg/m2 [facility] Body temperature 2020-05-31 20:10:00 36 Zainab [facility] Body weight 2020-05-31 20:10:00 128.822 kg [facility] BMI 2020-05-31 20:10:00 53.66 kg/m2 [facility] Systolic blood pressure 2020-04-06 18:35:00 138 mm[Hg] [facility] Diastolic blood pressure 2020-04-06 18:35:00 83 mm[Hg] [facility] Heart rate 2020-04-06 18:35:00 65 /min [facility] Res[facility] 2020-04-06 18:35:00 18 /min [facility] Body height 2020-04-06 18:35:[address] [facility] [facility] Body weight 2020-04-06 18:35:[address] [facility] BMI 2020-04-06 18:35:00 50.83 kg/m2 [facility] Systolic blood pressure 2020-03-16 19:12:00 120 mm[Hg] [facility] Diastolic blood pressure 2020-03-16 19:12:00 80 mm[Hg] [place] [facility] Body height 2020-03-16 19:12:00 154.9 cm [facility] Body weight 2020-03-16 19:12:00 122.018 kg [facility] BMI 2020-03-16 19:12:00 50.83 kg/m2 [facility] Body height 2019-12-23 16:00:00 154.9 cm [facility] Body weight 2019-12-23 16:00:00 122.018 kg [facility] BMI 2019-12-23 16:00:00 50.83 kg/m2 [facility] Procedures Procedure Date / Time Performed Performing Clinician Source POCT SARS-COV-2 ANTIGEN (BINAX NOW) 2023-06-28 23:38:00 Cj Tierney [facility] POCT MOLECULAR STREP 2023-03-07 16:19:00 Unknown, Jayson goncalves [facility] URINE CULTURE 2023-02-21 14:14:00 Mirta Correa [facility] GC & CHLAMYDIA AMPLIFIED ASSAY 2023-02-21 14:14:00 Mirta Correa [facility] HIV 1/2 AG-AB WITH REFLEX 2023-02-21 14:14:00 Mirta Correa [facility] HIGH RISK HPV-THIN PREP 2023-02-21 14:14:00 Mirta Correa [facility] TRICHOMONAS AMPLIFIED ASSAY 2023-02-21 14:14:00 Mirta Correa [facility] PAP SMEAR-LIQUID BASED-CP 2023-02-21 14:14:00 Mirta Correa [facility] SYPHILIS IGG/IGM 2023-02-21 14:14:00 Jose Correa [facility] GARDASIL 9 (HPV 9V) VACCINE 2023-02-21 13:56:00 Mirta Correa [facility] NO SHOW OR MISSED APPOINTMENT POLICY ACKNOWLEDGEMENT 2023-02-21 12:59:00 Doctor Unassigned, Carrington [facility] ASSIGNMENT OF BENEFITS 2022-11-24 20:15:38 Docto r Unassigned, Carrington [facility] POCT TEST 2022-07-17 16:33:00 [facility] 2022-07-17 16:15:00 Nannette Juan [facility] XR KNEE 3 VW LEFT 2022-03-19 14:44:16 Lottie Garvin [facility] POCT TEST 2022-03-19 14:34:00 Jennifer Garvin [facility] COMP. METABOLIC PANEL (03836) 2022-03-19 14:27:00 Lottie Garvin [facility] CBC WITH DIFF 2022-03-19 14:27:00 Lottie Garvin [facility] PROTHROMBIN TIME / INR 2022-03-19 14:27:00 Esdras Garvin [facility] ACTIVATED PARTIAL THRMPLAS REMEDIOS 2022-03-19 14:27:00 Lottie Garvin [facility] URINALYSIS 2022-03-19 14:27:[address] [facility] CONSENT/REFUSAL FOR DIAGNOSIS AND TREATMENT 2022-03-19 13:50:09 Doctor Unassigned, [facility]rington [facility] CONSENT/REFUSAL FOR DIAGNOSIS AND TREATMENT 2021-10-01 18:15:24 Doctor Unassigned, Carrington [facility] INTUBATION 2020-08-04 19:57:02 Luzma Almanza [facility] ASSIGNMENT OF BENEFITS 2020-08-04 16:10:14 Docto r Unassigned, Carrington [facility] DISCLOSURE AND CONSENT, MEDICAL AND SURGICAL PROCEDURES 2020-07-05 05:01:00 Doctor Unassigned, [facility]rington [facility] HIV 1/2 AG-AB WITH REFLEX 2020-06-05 19:04:00 Casie Ortega [facility] GALV ONLY - SYPHILIS IGG/IGM 2020-06-05 19:04:00 Casie Ortega [facility] XR WRIST 3+ VW LEFT 2020-05-31 19:46:46 ElhamTorey salvador [facility] MR WRIST LEFT WO CONTRAST 2020-03-31 20:18:12 Kami Bernard [facility] REFERRAL- REQUEST/RESPONSE 2020-03-23 05:01:00 D octor Unassigned, [facility]rington [facility] SEDIMENTATION RATE 2019-12-23 17:06:00 Kami Bernard [facility] CBC WITH DIFFERENTIAL 2019-12-23 17:06:00 Jose R Bernard [facility] ASSIGNMENT OF BENEFITS 2019-12-23 15:57:07 Docto r Unassigned, Carrington [facility] DME/SUPPLY JUSTIFICATION 2019-05-27 05:01:00 Doc tor Unassigned, Carrington [facility] Encounters Start Date/Time End Date/Time Encounter Type Admission Type Attending [facility] Facility Care Department Encounter ID Source 2021-08-24 19:16:32 Outpatient PAMELANANITOREY [facility] [id number] [facility] 2024-02-23 10:30:00 2024-02-23 10:30:00 Outpatient R DIANA MIRTA [facility] [id number] [facility] 2023-06-28 19:00:00 2023-06-28 19:00:00 Urgent Care Cj Tierney Unknown, Attending [facility] 1.2.840.114 350.1.13.10 4.2.7.2.686 [id number] [facility] 2023-06-28 19:00:00 2023-06-28 18:52:42 Outpatient R CJ TIERNEY [facility] [id number] [facility] 2023-03-07 11:40:00 2023-03-07 12:00:00 Urgent Care Regla Baez Unknown, Attending [facility] 1.2.840.114 350.1.13.10 4.2.7.2.686 [id number] 370 [id number] [facility] 2023-03-07 11:40:00 2023-03-07 11:40:00 Outpatient R STEVENAUNREGLA [facility] [id number] [facility] 2023-02-25 00:00:00 2023-02-25 00:00:00 Telephone Mirta Correa DCFRANCIE LINEWORKER [facility] & CHILD [facility] 1..840.114 350.1.13.10 4.2.7.2.686 [id number] 107 [id number] [facility] 2023-02-25 00:00:00 2023-02-25 00:00:00 Telephone Mirta Correa [facility] LINEWORKER [facility] CHILD [facility] 1..840.114 350.1.13.10 4.2.7.2.686 [id number] 107 [id number] [facility] 2023-02-24 00:00:00 2023-02-24 00:00:00 Telephone Mirta Correa [facility] LINEWORKER [facility] CHILD [facility] 1..840.114 350.1.13.10 4.2.7.2.686 [id number] 107 [id number] [facility] 2023-02-24 00:00:00 2023-02-24 00:00:00 Patient Secure Msg Mirta Correa [facility] LINEWORKER [facility] & CHILD [facility] 1..840.114 350.1.13.10 4.2.7.2.686 [id number] 107 [id number] [facility] 2023-02-21 08:15:00 2023-02-21 09:14:08 Outpatient R MIRTA CORREA [facility] [id number] [facility] 2023-02-21 08:15:00 2023-02-21 09:14:08 Office Visit Mirta Correa [facility] LINEWORKER [facility] & CHILD [facility] 1.2.840.114 350.1.13.10 4.2.7.2.686 [id number] 107 [id number] [facility] 2023-02-21 00:00:00 2023-02-21 00:00:00 Orders Only Doctor Unassigned, Carrington [facility] 1.2.840.114 350.1.13.10 4.2.7.2.686 [id number] [facility] 2023-02-19 00:00:00 2023-02-19 00:00:00 Case Management Jenniffer Hernandez 1.2.840.114 350.1.13.10 4.2.7.2.686 [id number] [facility] 2023-02-19 00:00:00 2023-02-19 00:00:00 Telephone Jenniffer Hernandez 1.2.840.114 350.1.13.10 4.2.7.2.686 [id number] [facility] 2022-12-04 00:00:00 2022-12-04 00:00:00 Telephone [facility] OFF[facility] 1.2.840.114 350.1.13.10 4.2.7.2.686 [id number] 370 [id number] [facility] 2022-11-24 14:20:00 2022-11-24 14:40:00 Urgent Care Latonia Curtis Unknown, Attending [facility] MEDICAL OFFICE BUILDING 1.2.840.114 350.1.13.10 4.2.7.2.686 [id number] 370 [id number] [facility] 2022-11-24 14:20:00 2022-11-24 14:20:00 Outpatient R LATONIA CURTIS [facility] [id number] [facility] 2022-11-24 00:00:00 2022-11-24 00:00:00 Orders Only Doctor Unassigned, Carrington [facility] 1..840.114 350.1.13.10 4.2.7.2.686 [id number] [facility] 2022-07-20 00:00:00 2022-07-20 00:00:00 Telephone [facility]?CHOLOUlysses [facility] MED[facility] OFFICE BUILDING 1.2.840.114 350.1.13.10 4.2.7.2.686 [id number] 370 [id number] [facility] 2022-07-17 11:15:00 2022-07-17 11:29:07 Outpatient R [facility] [id number] [facility] 2022-07-17 11:15:00 2022-07-17 11:29:07 [facility]CHOLOUlysses [facility] MEDICAL OFFICE BUILDING 1.2.840.114 350.1.13.10 4.2.7.2.686 [id number] [facility] 2022-06-12 19:20:00 2022-06-12 19:47:11 Outpatient R TOREY CESAR [facility] [id number] [facility] 2022-06-12 19:20:00 2022-06-12 19:47:11 Urgent Care Torey Cesar Rania [facility] 1.2.840.114 350.1.13.10 4.2.7.2.686 [id number] 370 [id number] [facility] 2022-04-14 12:40:00 2022-04-14 13:52:43 Outpatient R REGLA BAEZ [facility] [id number] [facility] 2022-04-14 12:40:00 2022-04-14 13:52:43 [facility] MEDICAL OFFICE BUILDING 1.2.840.114 350.1.13.10 4.2.7.2.686 [id number] 370 [id number] [facility] 2022-04-03 14:20:00 2022-04-03 14:20:00 Urgent Care Bello Kurtz [facility]?KE[facility] C[facility]FT MEDICAL OFFICE [facility] 1.2.840.114 350.1.13.10 4.2.7.2.686 [id number] [facility] 2022-04-03 14:20:00 2022-04-03 14:03:55 Outpatient R HOUSTON BELLO [facility] [id number] [facility] 2022-03-19 09:01:00 2022-03-19 11:10:00 Emergency X EUGENIA [facility] ERT [id number] [facility] 2022-03-19 09:01:00 2022-03-19 11:10:[address] [facility] 1.2.840.114 350.1.13.10 4.2.7.2.686 [id number] [facility] 2022-03-19 00:00:00 2022-03-19 00:00:00 Patient Secure Msg Doctor Unassigned, Carrington [facility] 1.2.840.114 350.1.13.10 4.2.7.2.686 [id number] [facility] 2022-03-19 00:00:00 2022-03-19 00:00:00 Orders Only Doctor Unassigned, Carrington [facility] 1.2.840.114 350.1.13.10 4.2.7.2.686 [id number] [facility] 2021-10-01 15:00:00 2021-10-01 13:13:59 Outpatient NANNETTE MAGALLON [facility] [id number] [facility] 2021-10-01 12:15:40 2021-10-01 13:13:59 Urgent Care Nannette Juan [facility] MEDICAL OFFICE BUILDING 1.284.114 350.1.13.10 4.2.7.2.686 [id number] 370 [id number] [facility] 2021-10-01 00:00:00 2021-10-01 00:00:00 Orders Only Doctor Unassigned, Carrington [facility] 1.2.114 350.1.13.10 4.2.7.2.686 [id number] [facility] 2021-06-04 00:00:00 2021-06-04 00:00:00 Patient Secure Msg Ten Ortegaulysses Baird [facility] LINEWORKER [facility] & CHILD [facility] 1.84.114 350.1.13.10 4.2.7.2.686 [id number] [facility] 2021-01-15 00:00:00 2021-01-15 00:00:00 Patient Outreach Harjit Sneed Home [facility] 1.2840.114 350.1.13.10 4.2.7.2.686 [id number] 2021-01-15 00:00:00 2021-01-15 00:00:00 Patient Outreach Harjit Sneed Home [facility] 1.2840.114 350.1.13.10 4.2.7.2.686 [id number] [facility] 2020-10-16 00:00:00 2020-10-16 00:00:00 Patient Secure Msg Doctor Unassigned, Carrington [facility] 1.284.114 350.1.13.10 4.2.7.2.686 [id number] [facility] 2020-08-23 14:00:00 2020-08-23 14:00:00 Outpatient R FAILLACE, TOREY [facility] [id number] [facility] 2020-08-22 00:00:00 2020-08-22 00:00:00 Patient Secure Msg ElhamTorey salvador [facility] 1.2.840.114 350.1.13.10 4.2.7.2.686 [id number] [facility] 2020-08-09 00:00:00 2020-08-09 00:00:00 Telephone [facility] AT [facility] 1.2.840.114 350.1.13.10 4.2.7.2.686 [id number] [facility] 2020-08-09 00:00:00 2020-08-09 00:00:00 Telephone [facility] 1.2.840.114 350.1.13.10 4.2.7.2.686 [id number] 2020-08-04 11:12:00 2020-08-04 17:25:00 [facility] 1.2.840.114 350.1.13.10 4.2.7.2.686 [id number] [facility] 2020-08-04 11:12:00 2020-08-04 17:25:00 Hospital Encounter [facility] ([facility]) 1.2.840.114 350.1.13.10 4.2.7.2.686 [id number] 2020-08-04 14:32:00 2020-08-04 15:44:00 Anesthesia Ashley Alas David K [facility] 1.2.840.114 350.1.13.10 4.2.7.2.686 [id number] [facility] 2020-08-04 14:32:00 2020-08-04 15:44:00 Anesthesia Ashley Alas David K [facility] 1.2.840.114 350.1.13.10 4.2.7.2.686 [id number] 2020-08-04 00:00:00 2020-08-04 00:00:00 Orders Only Doctor Unassigned, Carrington [facility] 1.2840.114 350.1.13.10 4.2.7.2.686 [id number] [facility] 2020-08-04 00:00:00 2020-08-04 00:00:00 Orders Only Doctor Unassigned, Carrington [facility] 1.2840.114 350.1.13.10 4.2.7.2.686 [id number] 2020-08-03 15:30:00 2020-08-03 15:30:00 Outpatient R [facility] [id number] [facility] 2020-08-03 14:49:11 2020-08-03 15:04:01 Laboratory Only Only, Adc Test [facility] 1.2840.114 350.1.13.10 4.2.7.2.686 [id number] [facility] 2020-08-03 14:49:11 2020-08-03 15:04:01 Laboratory Only Only, Adc Test [facility] 1.2.840.114 350.1.13.10 4.2.7.2.686 [id number] 2020-08-02 00:00:00 2020-08-02 00:00:00 Telephone Isabell [facility] CARE [facility] AT [facility] 1.2.840.114 350.1.13.10 4.2.7.2.686 [id number] [facility] 2020-08-02 00:00:00 2020-08-02 00:00:00 Telephone Isabell [facility] AT [facility] 1.2840.114 350.1.13.10 4.2.7.2.686 [id number] [facility] 2020-07-21 00:00:00 2020-07-21 00:00:00 Patient Secure Msg Doctor Unassigned, Carrington [facility] LINEWORKER [facility] MATERNAL & [facility]ILD [facility] 1.2840.114 350.1.13.10 4.2.7.2.686 [id number] [facility] 2020-07-20 00:00:00 2020-07-20 00:00:00 Patient Secure Msg Elhamricardo [facility] CARE [place] AT [facility] 1.2840.114 350.1.13.10 4.2.7.2.686 [id number] [facility] 2020-07-19 00:00:00 2020-07-19 00:00:00 Telephone Isabell [facility] CARE [place] [facility] 1.2840.114 350.1.13.10 4.2.7.2.686 [id number] [facility] 2020-07-07 00:00:00 2020-07-07 00:00:00 Patient Secure Msg Elhamricardo [facility] AT [facility] 1.2840.114 350.1.13.10 4.2.7.2.686 [id number] [facility] 2020-07-05 11:28:58 2020-07-05 11:38:58 Telemedici ne Visit Isabell [facility] CARE [facility] 1.2840.114 350.1.13.10 4.2.7.2.686 [id number] [facility] 2020-07-05 11:10:00 2020-07-05 11:10:00 Outpatient R TOREY WHYTE [facility] [id number] [facility] 2020-07-05 00:00:00 2020-07-05 00:00:00 Patient Secure Msg Doctor Unassigned, Carrington [facility] LINEWORKER [facility] MATERNAL & [facility] 1.84.114 350.1.13.10 4.2.7.2.686 [id number] [facility] 2020-07-05 00:00:00 2020-07-05 00:00:00 Orders Only Doctor Unassigned, Carrington [facility] 1.284.114 350.1.13.10 4.2.7.2.686 [id number] [facility] 2020-06-21 13:30:00 2020-06-21 13:30:00 Outpatient R RUEL IQBAL [facility] [id number] [facility] 2020-06-20 00:00:00 2020-06-20 00:00:00 Patient Secure Msg Torey Whyte [facility] [place] 1.840.114 350.1.13.10 4.2.7.2.686 [id number] [facility] 2020-06-19 16:19:58 2020-06-19 16:20:05 Watch Hairspring Assembler Visit Lab, Ang-Rmchp Casie Ortega [facility] LINEWORKER [facility] MATERNAL & CHILD [facility] 1.840.114 350.1.13.10 4.2.7.2.686 [id number] [facility] 2020-06-19 15:40:00 2020-06-19 15:40:00 Outpatient R TOREY WHYTE [facility] [id number] [facility] 2020-06-19 15:15:00 2020-06-19 15:15:00 Outpatient CASIE NOEL [facility] [id number] [facility] 2020-06-19 00:00:00 2020-06-19 00:00:00 Telephone Torey Whyte [facility] [place] 1.840.114 350.1.13.10 4.2.7.2.686 [id number] [facility] 2020-06-16 00:00:00 2020-06-16 00:00:00 Patient Secure Msg Doctor Unassigned, Carrington [facility] LINEWORKER [facility] & CHILD [facility] 1.2.840.114 350.1.13.10 4.2.7.2.686 [id number] 107 [id number] [facility] 2020-06-13 00:00:00 2020-06-13 00:00:00 Patient Secure Msg Doctor Unassigned, Carrington [facility] LINEWORKER [facility] & CHILD [facility] 1.2.840.114 350.1.13.10 4.2.7.2.686 [id number] 107 [id number] [facility] 2020-06-12 00:00:00 2020-06-12 00:00:00 Telephone Casie Ortega [facility] LINEWORKER [facility] & CHILD [facility] 1.2840.114 350.1.13.10 4.2.7.2.686 [id number] 107 [id number] [facility] 2020-06-06 00:00:00 2020-06-06 00:00:00 Telephone Casie Ortega [facility] LINEWORKER [facility] & CHILD [facility] 1.2.840.114 350.1.13.10 4.2.7.2.686 [id number] 107 [id number] [facility] 2020-06-05 12:48:43 2020-06-05 14:03:05 Office Visit Casie Ortega [facility] LINEWORKER [facility] & CHILD [facility] 1.2.840.114 350.1.13.10 4.2.7.2.686 [id number] 107 [id number] [facility] 2020-06-05 12:45:00 2020-06-05 12:45:00 Outpatient R CASIE ORTEGA [facility] [id number] [facility] 2020-05-31 14:36:23 2020-05-31 23:59:00 Hospital Encounter Torey Whyte [facility] 1.840.114 350.1.13.10 4.2.7.2.686 [id number] [facility] 2020-05-31 14:17:05 2020-05-31 15:56:27 Office Visit Torey Whyte [facility] 1.2840.114 350.1.13.10 4.2.7.2.686 [id number] [facility] 2020-05-31 14:30:00 2020-05-31 14:30:00 Outpatient R LEHAMTOREY SALVADOR [facility] [id number] [facility] 2020-04-24 00:00:00 2020-04-24 00:00:00 Patient Secure Msg Doctor Unassigned, Carrington [facility] SUR[facility] 1..840.114 350.1.13.10 4.2.7.2.686 [id number] [facility] 2020-04-12 13:00:00 2020-04-12 13:00:00 Outpatient R ELHAMRICARDO TOREY [facility] [id number] [facility] 2020-04-12 00:00:00 2020-04-12 00:00:00 Patient Secure Msg Doctor Unassigned, Carrington [facility] LINEWORKER [facility] MATERNAL & [facility] 1..840.114 350.1.13.10 4.2.7.2.686 [id number] [facility] 2020-04-06 15:30:00 2020-04-06 15:30:00 Outpatient R KAMI BERNARD [facility] [id number] [facility] 2020-04-06 13:33:51 2020-04-06 14:02:35 Office Visit Kami Bernard [facility] Surgical [facility] 1..840.114 350.1.13.10 4.2.7.2.686 [id number] [facility] 2020-03-31 14:26:45 2020-03-31 23:59:00 Outpatient R KAMI BERNARD [facility] [id number] [facility] 2020-03-31 14:00:00 2020-03-31 23:59:00 Hospital Encounter Kami Bernard [facility] 1.2.840.114 350.1.13.10 4.2.7.2.686 [id number] [facility] 2020-03-23 00:00:00 2020-03-23 00:00:00 Orders Only Doctor Unassigned, Carrington [facility] 1.2.840.114 350.1.13.10 4.2.7.2.686 [id number] [facility] 2020-03-22 00:00:00 2020-03-22 00:00:00 Telephone Kami Bernard [facility] Surgical Specialti es [place] 1.2.840.114 350.1.13.10 4.2.7.2.686 [id number] [facility] 2020-03-16 14:10:26 2020-03-16 14:24:02 Office Visit Kami Bernard [facility] Surgical Specialti es [place] 1.2.840.114 350.1.13.10 4.2.7.2.686 [id number] [facility] 2020-03-16 14:15:00 2020-03-16 14:15:00 Outpatient R KAMI BERNARD [facility] [id number] [facility] 2020-03-16 13:15:00 2020-03-16 13:15:00 Outpatient R KAMI BERNARD [facility] [id number] [facility] 2020-01-11 13:45:00 2020-01-11 13:45:00 Outpatient R JOHN RIVERA [facility] [id number] [facility] 2020-01-06 14:45:00 2020-01-06 14:45:00 Outpatient JOHN NAQVI [facility] [id number] [facility] 2019-12-30 10:15:00 2019-12-30 10:15:00 Outpatient R TERRY BERNARDIG [facility] [id number] [facility] 2019-12-30 00:00:00 2019-12-30 00:00:00 Patient Secure John Mcgovern [facility] 1.20.114 350.1.13.10 4.2.7.2.686 [id number] [facility] 2019-12-23 10:51:53 2019-12-23 11:06:53 Watch Hairspring Assembler Visit Pob, Adc Lab Main Frantz Kami [facility] 1.2.114 350.1.13.10 4.2.7.2.686 [id number] [facility] 2019-12-23 09:56:57 2019-12-23 10:15:25 Office Visit Frantz Kami Ramos [facility] amara Williams 1.2.114 350.1.13.10 4.2.7.2.686 [id number] [facility] 2019-12-23 10:15:00 2019-12-23 10:15:00 Outpatient R KAMI BERNARD [facility] [id number] [facility] 2019-12-23 00:00:00 2019-12-23 00:00:00 Orders Only Doctor Unassigned, [place] [facility] 1.2.114 350.1.13.10 4.2.7.2.686 [id number] [facility] 2019-05-27 00:00:00 2019-05-27 00:00:00 Orders Only Doctor Unassigned, [place] [facility] 1.2840.114 350.1.13.10 4.2.7.2.686 [id number] [facility] 2019-05-27 00:00:00 2019-05-27 00:00:00 Telephone Haja Abraham [facility] 1.2840.114 350.1.13.10 4.2.7.2.686 [id number] [facility] 2014-05-30 00:00:00 2014-05-30 00:00:00 Patient Secure Msg Doctor Unassigned, [place] [facility] 1.840.114 350.1.13.10 4.2.7.2.686 [id number] [facility] Results Test Description Test Time Test Comments Results Result Co mments Source [facility] SARS-COV-2 ANTIGEN (BINAX NOW)2023-06-28 23:40:00* Test Item Value Reference Range Interpretation Comme nts POCT SARS-COV-2 ANTIGEN (test code = 37646-9) Not Detected Not Detected On board controls acceptable with C Line (test code = 3574) Yes FIONA (test code = FIONA) accurate developme nt and interpretation of all internal controls Lab Interpretation (test code = 70594-0) Normal [facility] MOLECULAR [id number] 16:26:28* Test Item Value Reference Range Interpretation Comme nts POCT Molecular Strep (test c ode = 66656-4) Negative Negative Lab Interpretation (test cod e = 86841-1) [facility]/[id number] 16:53:38* Test Item Value Reference Range Interpretation Comme nts Syphilis IgG/IgM (test code = 09228-4) Non-reactive Non-reactive FIONA (test code = FIONA) Non-reactive - No serologic evidence of T. pallidum infection. Cannot exclude incubating or early syphilis. Submit a second specimen in 2-4 weeks if syphilis is clinically suspected. Equivocal - Further testing to follow. Reactive - Further testing to follow. Lab Interpretation (test code = 36251-0) [facility]HIV [facility]2 AG-AB WITH [id number] 05:24:24* Test Item Value Reference Range Interpretation Comme nts HIV Semi-quantitative (test code = 14684-8) 0.07 Negative FIONA (test code = FIONA) Non-reactive for HIV-1 antigen and HIV-1/HIV-2 antibodies. ?No laboratory evidence of HIV infection. ?Repeat in 2-4 weeks if acute HIV infection is suspected. [facility] [id number] 16:44:00* Test Item Value Reference Range Interpretation Comme nts POCT PREG (test code = 1605) Negative On board controls acceptable with C Line (test code = 3574) Yes POCT PREG LOT # (test code = 3575) [id number] POCT PREG TEST DATE (test code = 3576) FIONA (test code = FIONA) accurate developme nt and interpretation of all internal controls Lab Interpretation (test code = 26254-2) Normal [facility] URINALYSIS W SPECIFIC [id number] 16:16:00* Test Item Value Reference Range Interpretation Comme nts POCT U SP GRAV (test code = 3255) 1.025 mg/dl 1.005-1.025 POCT PH U (test code = 3254) 5 mg/dl 5-8 POCT U LEUK EST (test code = 3263) negative Negative - Negative POCT U NIT (test code = 3262) negative Negative - Negati ve POCT U PROT (test code = 3259) trace Negative - Negative POCT U GLU (test code = 3256) negative Negative - Negati ve POCT U KETONE (test code = 3258) negative Negative - Negative POCT U UROBILI (test code = 3260) normal 0.2-1 POCT U BILI (test code = 3261) negative Negative - Negative POCT U BLD (test code = 3257) negative Negative - Negati ve POCT U COLOR (test code = 3266) dark yellow POCT U APPEAR (test code = 3267) clear Lab Interpretation (test cod e = 92237-6) Normal [facility] WITH [id number] 15:36:23* Test Item Value Reference Range Interpretation Comme nts WBC (test code = 6690-2) See_Comment H [Automated messa ge] The system which generated this result transmitted reference range: 4.30 - 11.10 10*3/?L. The reference range was not used to interpret this result as normal/abnormal. RBC (test code = 789-8) See_Comment [Automated Appscoa ge] The system which generated this result transmitted reference range: 3.93 - 5.25 10*6/?L. The reference range was not used to interpret this result as normal/abnormal. HGB (test code = 718-7) 14.2 g/dL 11.6-15.0 HCT (test code = 4544-3) 42.3 % 35.7-45.2 MCV (test code = 787-2) 85.8 fL 80.6-95.5 MCH (test code = 785-6) 28.8 pg 25.9-32.8 MCHC (test code = 786-4) 33.6 g/dL 31.6-35.1 RDW-SD (test code = 82198-8) 43.0 fL 39.0-49.9 RDW-CV (test code = 788-0) 13.8 % 12.0-15.5 PLT (test code = 777-3) See_Comment [Automated Appscoa ge] The system which generated this result transmitted reference range: 166 - 358 10*3/?L. The reference range was not used to interpret this result as normal/abnormal. MPV (test code = 51161-1) 10.8 fL 9.5-12.9 NRBC/100 WBC (test code = 3684197048) See_Comment [Automated JoMaJa ssage] The system which generated this result transmitted reference range: 0.0 - 10.0 /100 WBCs. The reference range was not used to interpret this result as normal/abnormal. NRBC x10^3 (test code = 4790104324) <0.01 See_Comment [Automated Appscoa ge] The system which generated this result transmitted reference range: 10*3/?L. The reference range was not used to interpret this result as normal/abnormal. GRAN MAT (NEUT) % (test code = 770-8) 59.6 % IMM GRAN % (test code = 4300219885) 0.40 % LYMPH % (test code = 736-9) 29.0 % MONO % (test code = 5905-5) 7.7 % EOS % (test code = 713-8) 2.9 % BASO % (test code = 706-2) 0.4 % GRAN MAT x10^3(ANC) (test code = 1402333908) 8.31 10*3/uL 1.88-7.09 H IMM GRAN x10^3 (test code = 6601352427) 0.06 10*3/uL 0.00-0.06 LYMPH x10^3 (test code = 731-0) 4.05 10*3/uL 1.32-3.29 H MONO x10^3 (test code = 742-7) 1.07 10*3/uL 0.33-0.92 H EOS x10^3 (test code = 711-2) 0.41 10*3/uL 0.03-0.39 H BASO x10^3 (test code = 704-7) 0.05 10*3/uL 0.01-0.07 REACT LYMPHS (test code = 4314584971) Rare Lab Interpretation (test code = 42731-3) Abnormal [facility] HospitalACTIV[facility] PARTIAL THRMPLAS [id number] 15:06:58* Test Item Value Reference Range Interpretation Comme [facility] APTT Patient (test code = 3173-2) See_Comment [Automated message] The system which generated this result transmitted reference range: 23 - 38 Seconds. The reference range was not used to interpret this result as normal/abnormal. FIONA (test code = FIONA) The [facility] patient population mean normal value for aPTT is 30 seconds. Lab Interpretation (test code = 30204-0) Normal [facility] HospitalPROTHROMBIN TIME / [id number] 15:04:57* Test Item Value Reference Range Interpretation Comme [facility] PROTIME PATIENT (test code = 5964-2) See_Comment [Automated messa ge] The system which generated this result transmitted reference range: 12.0 - 14.7 Seconds. The reference range was not used to interpret this result as normal/abnormal. INR (test code = 6301-6) Normal INR <1.1; Warfarin Therapeutic range 2.0 to 3.0 or 2.5 to 3.5, depending upon the indications. Lab Interpretation (test code = 54883-4) Normal [facility] HospitalCOMP. METABOLIC PANEL (23824)2022-03-19 14:58:33* Test Item Value Reference Range Interpretation Comme nts NA (test code = 7594525261) 141 mmol/L 135-145 K (test code = 6256481153) 4.3 mmol/L 3.5-5.0 CL (test code = 0067007377) 107 mmol/L 98-108 CO2 TOTAL (test code = 6350053621) 24 mmol/L 23-31 AGAP (test code = 6922883439) 2-16 BUN (test code = 8487839712) 11 mg/dL 7-23 GLUCOSE (test code = 0745511986) 116 mg/dL 70-110 H CREATININE (test code = 5447126779) 0.71 mg/dL 0.50-1.04 TOTAL BILI (test code = 6927300660) 0.5 mg/dL 0.1-1.1 CALCIUM (test code = 9821414957) 9.3 mg/dL 8.6-10.6 T PROTEIN (test code = 7535639139) 7.0 g/dL 6.3-8.2 ALBUMIN (test code = 5918240666) 4.3 g/dL 3.5-5.0 ALK PHOS (test code = 0016645816) 63 U/L 34-122 ALTv (test code = 1742-6) 48 U/L 5-35 H AST(SGOT) (test code = 6183699171) 33 U/L 13-40 eGFR (test code = 5576554750) mL/min/1.73m2 FIONA (test code = FIONA) Association of [...] or abnormalities in imaging tests). Lab Interpretation (test code = 52118-2) Abnormal [facility] HospitalPOCT [id number] 14:34:00* Test Item Value Reference Range Interpretation Comme nts POCT PREG (test code = 1605) negative On board controls acceptable with C Line (test code = 3574) present POCT PREG LOT # (test code = 3575) [id number] POCT PREG TEST DATE ( test code = 3576) 07-26-2023 Lab Interpretation (test cod e = 55162-8) Normal [facility] HospitalIntubation2020-10-09 19:57:02HoLuzma Fairchild CRNA ? ? 08/04/2020 ?2:57 PMIntubationDate/Time: 08/04/2020 2:39 PMUrgency: elective Airway not difficult General Information and Staff Patient location during procedure: ORResident/SWAGING MACHINE ADJUSTER: Luzma Almanza CRNAPerformed: resident/SWAGING MACHINE ADJUSTER Indications and Patient ConditionIndications for airway management: [...] and BBS, teeth and lips per preop assessmentUnWoman's Hospital of [facility]GALV ONLY - SYPHILIS IGG/IGM 2020-06-06 13:57:00* Test Item Value Reference Range Interpretation Comme [facility] Syphilis IgG/IgM (test code = 58438-6) Non-reactive Non-reactive FIONA (test code = FIONA) Non-reactive - No serologic evidence of T. pallidum infection. Cannot exclude incubating or early syphilis. Submit a second specimen in 2-4 weeks if syphilis is clinically suspected. Equivocal - Further testing to follow. Reactive - Further testing to follow. Lab Interpretation (test code = 72389-5) [facility]2 AG-AB WITH [id number] 05:48:00* Test Item Value Reference Range Interpretation Comme [facility] HIV Semi-quantitative (test code = 72241-1) Negative Negative FIONA (test code = FIONA) Non-reactive for HIV-1 antigen and HIV-1/HIV-2 antibodies. ?No laboratory evidence of HIV infection. ?Repeat in 2-4 weeks if acute HIV infection is suspected. [facility] HospitalXR WRIST [facility]+ VW [id number] 20:09:52 Osteonecrosis of the lunate. Nonspecific swelling [...] 3:11 PM CDTEXAM:XR WRIST 3+ VW LEFTHISTORY:left wristpain COMPARISON:NoneFINDINGS: Imaging of the wrist demonstrates subcutaneous fat stranding over themedial forearm. Sclerotic and cystic changes are noted within the lunatewhich appears slightly flattened. Degenerative cystic change is seen withinthe distal pole of the scaphoid.IMPRESSIONOsteonecrosis of the lunate.Nonspecific swelling over the medial forearm.[facility] HospitalSEDIMENTATION [id number] 17:35:00* Test Item Value Reference Range Interpretation Comme [facility] ESR (test code = 9243078353) See_Comment [Automated Appscoa Search[employer] SEO] The system which generated this result transmitted reference range: 0 - 20 mm/HR. The reference range was not used to interpret this result as normal/abnormal. Lab Interpretation (test code = 40948-6) Normal [facility] HospitalSEDIMENTATION [id number] 17:35:00* Test Item Value Reference Range Interpretation Comme nts ESR (test code = 0598971186) See_Comment [Automated messa ge] The system which generated this result transmitted reference range: 0 - 20 mm/HR. The reference range was not used to interpret this result as normal/abnormal. Lab Interpretation (test code = 34043-8) Normal [facility] WITH [id number] 17:10:00* Test Item Value Reference Range Interpretation Comme nts WBC (test code = 6690-2) See_Comment [Automated messa ge] The system which generated this result transmitted reference range: 4.30 - 11.10 10*3/?L. The reference range was not used to interpret this result as normal/abnormal. RBC (test code = 789-8) See_Comment [Automated messa ge] The system which generated this result transmitted reference range: 3.93 - 5.25 10*6/?L. The reference range was not used to interpret this result as normal/abnormal. HGB (test code = 718-7) 12.5 g/dL 11.6-15 HCT (test code = 4544-3) 39.7 % 35.7-45.2 MCV (test code = 787-2) 83.1 fL 80.6-95.5 MCH (test code = 785-6) 26.2 pg 25.9-32.8 MCHC (test code = 786-4) 31.5 g/dL 31.6-35.1 L RDW-SD (test code = 52718-2) 45.0 fL 39-49.9 RDW-CV (test code = 788-0) 14.9 % 12-15.5 PLT (test code = 777-3) See_Comment [Automated messa ge] The system which generated this result transmitted reference range: 166 - 358 10*3/?L. The reference range was not used to interpret this result as normal/abnormal. MPV (test code = 85644-2) 10.0 fL 9.5-12.9 NRBC/100 WBC (test code = 9192685160) See_Comment [Automated JoMaJa ssage] The system which generated this result transmitted reference range: 0.0 - 10.0 /100 WBCs. The reference range was not used to interpret this result as normal/abnormal. NRBC x10^3 (test code = 0142113962) <0.01 See_Comment [Automated messa ge] The system which generated this result transmitted reference range: 10*3/?L. The reference range was not used to interpret this result as normal/abnormal. GRAN MAT (NEUT) % (test code = 770-8) 60.7 % IMM GRAN % (test code = 8129129366) 0.50 % LYMPH % (test code = 736-9) 28.4 % MONO % (test code = 5905-5) 7.5 % EOS % (test code = 713-8) 2.5 % BASO % (test code = 706-2) 0.4 % GRAN MAT x10^3(ANC) (test code = 2781018253) 5.91 10*3/uL 1.88-7.09 IMM GRAN x10^3 (test code = 2135076374) 0.05 10*3/uL 0-0.06 LYMPH x10^3 (test code = 731-0) 2.76 10*3/uL 1.32-3.29 MONO x10^3 (test code = 742-7) 0.73 10*3/uL 0.33-0.92 EOS x10^3 (test code = 711-2) 0.24 10*3/uL 0.03-0.39 BASO x10^3 (test code = 704-7) 0.04 10*3/uL 0.01-0.07 Lab Interpretation (test code = 02473-4) Abnormal [facility] WITH [id number] 17:10:00* Test Item Value Reference Range Interpretation Comme nts WBC (test code = 6690-2) See_Comment [Automated messa ge] The system which generated this result transmitted reference range: 4.30 - 11.10 10*3/?L. The reference range was not used to interpret this result as normal/abnormal. RBC (test code = 789-8) See_Comment [Automated Appscoa ge] The system which generated this result transmitted reference range: 3.93 - 5.25 10*6/?L. The reference range was not used to interpret this result as normal/abnormal. HGB (test code = 718-7) 12.5 g/dL 11.6-15 HCT (test code = 4544-3) 39.7 % 35.7-45.2 MCV (test code = 787-2) 83.1 fL 80.6-95.5 MCH (test code = 785-6) 26.2 pg 25.9-32.8 MCHC (test code = 786-4) 31.5 g/dL 31.6-35.1 L RDW-SD (test code = 14766-3) 45.0 fL 39-49.9 RDW-CV (test code = 788-0) 14.9 % 12-15.5 PLT (test code = 777-3) See_Comment [Automated Appscoa ge] The system which generated this result transmitted reference range: 166 - 358 10*3/?L. The reference range was not used to interpret this result as normal/abnormal. MPV (test code = 69978-4) 10.0 fL 9.5-12.9 NRBC/100 WBC (test code = 4165923263) See_Comment [Automated JoMaJa ssage] The system which generated this result transmitted reference range: 0.0 - 10.0 /100 WBCs. The reference range was not used to interpret this result as normal/abnormal. NRBC x10^3 (test code = 6754399515) <0.01 See_Comment [Automated Appscoa ge] The system which generated this result transmitted reference range: 10*3/?L. The reference range was not used to interpret this result as normal/abnormal. GRAN MAT (NEUT) % (test code = 770-8) 60.7 % IMM GRAN % (test code = 2548437562) 0.50 % LYMPH % (test code = 736-9) 28.4 % MONO % (test code = 5905-5) 7.5 % EOS % (test code = 713-8) 2.5 % BASO % (test code = 706-2) 0.4 % GRAN MAT x10^3(ANC) (test code = 9777196189) 5.91 10*3/uL 1.88-7.09 IMM GRAN x10^3 (test code = 9285974438) 0.05 10*3/uL 0-0.06 LYMPH x10^3 (test code = 731-0) 2.76 10*3/uL 1.32-3.29 MONO x10^3 (test code = 742-7) 0.73 10*3/uL 0.33-0.92 EOS x10^3 (test code = 711-2) 0.24 10*3/uL 0.03-0.39 BASO x10^3 (test code = 704-7) 0.04 10*3/uL 0.01-0.07 Lab Interpretation (test code = 02160-6) [facility]normal [facility]"
--- NOTE | 2023-10-21 13:00 | EDPHYS ---
Physician Documentation [facility] Name: Priscilla Solo Age: 38 yrs Sex: Female : 1985 Arrival Date: 10/21/2023 Time: 12:28 Bed IW4 Private MD: ED Physician Chencho Jacobs HPI: 10/21 12:57 This 38 yrs old Female presents to ER via Ambulatory with complaints of Flu Symptoms. ec2 12:57 Patient arrives today for evaluation of URI signs and symptoms. Patient reports she has ec2 been having 2 weeks of symptoms however have been getting better. Patient reports occasional cough, states that she has some congestion. Reports no issues with p.o. intake, no nausea or vomiting, has been taking ncci-eua-bewfsmi medications to help with her symptoms. No issues with vomiting or diarrhea. Patient does have a history of asthma and is asking for medication refill for her nebulizer solution.. Historical: - Allergies: 12:37 Lamictal; ll1 12:37 Latex; ll1 12:37 Morphine; ll1 - PMHx: 12:37 ADD/ADHD; Anxiety; Asthma; cardiomyopathy; CHF; Hypertension; ll1 - PSHx: 12:37 Appendectomy; section; L wrist SX x 2; tubal ligation; ll1 - Immunization history:: Adult Immunizations up to date. - Social history:: Smoking status: Patient denies any tobacco usage or history of. ROS: 12:57 Constitutional: as per hpi ec2 Exam: 12:57 Constitutional: GEN: NAD Head: atraumatic Eyes: EOMI Ears: External ears are ec2 normal. CV: regular rate LUNGS: no respiratory distress, no wheezes, rales, rhonchi ABD: non-distended SKIN: no evidence of rashes MSK: no evidence of trauma NEURO: moves all extremities equally Vital Signs: 12:46 BP 135 / 95; Pulse 88; Resp 18; Temp 98.1; Pulse Ox 99% ; ll1 MDM: 12:40 Patient medically screened. ec2 12:57 Data reviewed: vital signs. ED course: Patient arrives today due to concern for URI ec2 symptoms. Examination remarkable for well-appearing nontoxic individual is otherwise in no acute distress with reassuring cardiopulmonary examination. I suspect a viral process causing the patient's symptoms given the patient's overall well appearance and multiple sick contacts with similar types of symptoms. I will refill the patient prescription for albuterol nebulizer solution and have her follow-up with primary care doctor.. Administered Medications: No medications were administered Disposition Summary: 10/21/23 12:59 Discharge Ordered Notes: Location: Home ec2 Condition: Stable ec2 Diagnosis - Viral infection, unspecified ec2 Followup: ec2 - With: Private Physician - When: - Reason: Recheck today's complaints Discharge Instructions: - Discharge Summary Sheet ec2 - Viral Illness, Adult ec2 Forms: - Work release form ec2 - Medication Reconciliation Form ec2 - Thank You Letter ec2 - Antibiotic Education ec2 - Prescription Opioid Use ec2 - Patient Portal Instructions ec2 - Leadership Thank You Letter ec2 Prescriptions: - albuterol sulfate 0.63 mg/3 mL Inhalation Solution for Nebulization - nebulize 3 milliliter INHALATION route every 4 to 6 hours as needed for ec2 shortness of breath or wheezing; 14 unit; Refills: 0, Product Selection Permitted Signatures: Gutierrez Palafox RN RN 1 Chencho Jacobs MD MD ec2 Corrections: (The following items were deleted from the chart) 12:59 12:57 ED course: Patient arrives today due to concern for URI symptoms.. ec2 ec2
--- NOTE | 2023-10-21 13:00 | ER ---
Nurse's Notes [facility] Name: Priscilla Solo Age: 38 yrs Sex: Female : 1985 Arrival Date: 10/21/2023 Time: 12:28 Bed IW4 Private MD: Diagnosis: Viral infection, unspecified Presentation: 10/21 12:45 Chief complaint: Patient states: Cough, congestion for 1 week. Coronavirus screen: ll1 Client denies travel out of the [place] in the last 14 days. congestion, cough unrelated to allergies. Ebola Screen: Patient denies travel to an Ebola-affected area in the 21 days before illness onset. Initial Sepsis Screen: Does the patient meet any 2 criteria? No. Patient's initial sepsis screen is negative. Does the patient have a suspected source of infection? Yes: Productive cough/pneumonia. Risk Assessment: Do you want to hurt yourself or someone else? Patient reports no desire to harm self or others. Onset of symptoms was October 14, 2023. 12:45 Method Of Arrival: Ambulatory ll1 12:45 Acuity: ERIC 4 ll1 Triage Assessment: 12:45 General: Appears in no apparent distress. Behavior is calm, cooperative, appropriate ll1 for age. Pain: Denies pain. EENT: Reports nasal congestion. Respiratory: Reports cough that is. Historical: - Allergies: 12:37 Lamictal; ll1 12:37 Latex; ll1 12:37 Morphine; ll1 - PMHx: 12:37 ADD/ADHD; Anxiety; Asthma; cardiomyopathy; CHF; Hypertension; ll1 - PSHx: 12:37 Appendectomy; section; L wrist SX x 2; tubal ligation; ll1 - Immunization history:: Adult Immunizations up to date. - Social history:: Smoking status: Patient denies any tobacco usage or history of. Assessment: 13:21 Reassessment: No changes from previously documented assessment. Patient and/or family ll1 updated on plan of care and expected duration. Pain level reassessed. Vital Signs: 12:46 BP 135 / 95; Pulse 88; Resp 18; Temp 98.1; Pulse Ox 99% ; ll1 ED Course: 12:30 Patient arrived in ED. rg4 12:31 Chencho Jacobs MD is Attending Physician. ec2 12:38 Arm band placed on. ll1 12:46 Triage completed. ll1 Administered Medications: No medications were administered Outcome: 12:59 Discharge ordered by MD. ec2 13:21 Patient left the ED. ll1 13:21 Discharged to home ambulatory, ll1 13:21 Condition: stable 13:21 Discharge instructions given to patient, Instructed on discharge instructions, follow up and referral plans. medication usage, Demonstrated understanding of instructions, follow-up care, medications, Prescriptions given X 1, Signatures: Latasha Markham rg4 Gutierrez Palafox, MARE RN ll1 Chencho Jacobs MD MD ec2 Corrections: (The following items were deleted from the chart) 12:47 12:46 Pulse 88bpm; Resp 18bpm; Pulse Ox 99%; Temp 98.1F; ll1 ll1
[2023-10-21 14:18] VITALS: BP 135/95; TEMP 98.1; O2SAT 99
== END ==
LOC: ER 12:28
DX: B34.9 Viral infection, unspecified (principal); Z88.5 Allergy status to narcotic agent; Z88.8 Allergy status to other drugs, medicaments and biological substances; Z91.040 Latex allergy status
CPT/HCPCS: 99283

== ENCOUNTER → 2023-12-16 | Emergency (ER) | payer OTHER ==
[~2023-12-16] MED LIST: IBUPROFEN 200 MG TAB PO ONE; IBUPROFEN 400 MG TAB ONE; ONDANSETRON 4 MG (ODT) TAB ONE
--- OUTSIDE RECORDS SUMMARY | 2023-12-16 08:22 | XMS REPORT | Continuity of Care Document ---
Author Name Unknown Address [address] [facility] [address] [place] [address] [facility] Address [address] [facility] [address] [place] [address] Care Team Providers Care Gis Administrator Name Role Phone Marleny Floyd Primary Care Physician [phone] TOREY WHYTE Attending Clinician Unavailable MIRTA CORREA Attending Clinician Unavail able Cj Shields Attending Clinician [phone] Unknown, Attending Attending Clinician Unavailab CJ Cheng Attending Clinician Unavailable Regla Solano Attending Clinician [phone] REGLA BAEZ Attending Clinician Unavailab Mirta Hale Attending Clinician + Doctor Unassigned, [place] Attending Clinician U tere Hernandez RN, Jenniffer Ramos Attending Clinician UnaLatonia Nesbitt Attending Clinician [phone] Bello Arango Attending Clinician [phone] NANNETTE JUAN Attending Clinician Unavailable Nannette Juan MD Attending Clinician [phone] TOREY CESAR Attending Clinician Unavailable Torey Cesar PA-C Attending Clinician [phone] BELLO KURTZ Attending Clinician Unavailable LOTTIE GARVIN Attending Clinician Unavailable Lottie Garvin MD Attending Clinician [phone] Casie Whipple Attending Clinician UnaHarjit Balderas DO Attending Clinician [phone] Torey Whyte MD Attending Clinician [phone] Bishop GARVEY, Ashley Attending Clinician Unavailab Mirza Batista MD Attending Clinician [phone] Only, Adc Test Attending Clinician Unavailable RUEL IQBAL Attending Clinician Unavailable Lab, [facility] Attending Clinician Unavailable CASIE ORTEGA Attending Clinician Unavailab KAMI Castano Attending Clinician UnavailKami Llamas MD Attending Clinician [phone] JOHN RIVERA Attending Clinician Unavailable John Arenas Attending Clinician [phone] Pob, [facility] Main Attending Clinician UnavailHaja Morejon DO Attending Clinician [phone] TOREY WHYTE Admitting Clinician Unavailable LOTTIE GARVIN Admitting Clinician Unavailable Torey Whyte MD Admitting Clinician [phone] KAMI BERNARD Admitting Clinician Unavailron valencia Payers Payer Name Policy Type Policy Number Effective Date Expirati on Date Source [facility] PLUS [id number] 2012 00:00:00 Problems Condition Name Condition Details Condition Category Status Onset Date Resolution Date Last Treatment Date Treating Clinician Comments Source Encounter for contracept toñito management , unspecifie d type Encounter for contracept toñito management , unspecifie d type Disease Active 01-27 00:00: 00 [facility] Encounter for contracept toñito management , unspecifie d type Encounter for contracept toñito management , unspecifie d type Disease Active 01-27 00:00: 00 [facility] History of bilateral tubal ligation History of bilateral tubal ligation Disease Active 01-27 00:00: 00 [facility] Morbid obesity Morbid obesity Disease Active 01-27 00:00: 00 [facility] BMI 50.0-59.9, adult BMI 50.0-59.9, adult Disease Active 4-03 00:00: 00 [facility] Research study patient Research study patient Disease Active 12-12 00:00: 00 Overview: Formattin g of this note is different from the original. Patient is in the HCTZ study IRB # [id number] y questions please contact:Rachel Manley MD [phone] Hightower MD [phone] Frias MD [phone] facts Patient randomize d after delivery if they met inclusion criteria a nd accepted Medicati on comes from [facility] not pharmacy, [facility] Phone Number Ext. [phone] or cell Patient can start meds as soon as they tolerate PO One tab per day of either placebo or HCTZ Medicati on stays with patient Medicati on will appear on DEC, Nurses need to randy as given (No barcode) Medicati on needs to counted prior to discharge by research user experience team lead All follow ups need to be on POD or PP day # 14 or more Patient needs to be reminded to bring their left over medicatio n and bottle back to their visit [facility] needs to be notified at time of discharge Please contact Dr. Manley with any Questions [facility] Pain pelvic Pain pelvic Disease Active 12-14 00:00: 00 [facility] Depression Depression Disease Active 05-18 00:00: 00 [facility] Asthma Asthma Disease Active 05-18 00:00: 00 Overview: Formattin g of this note might be different from the original. 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 Allergies, Adverse Reactions, Alerts Allergy Name Allergy Type Status Severity Reaction(s) Onset Date Inactive Date Treating Clinician Comments Source Morphine Drug Allergy Active Itching 2019-10 00:00: 00 [facility] MORPHINE DRUG INGREDI Active Low ITCHING 2019-10 00:00: 00 [facility] Latex Propensi ty to adverse reaction s Active Rash 12-11 00:00: 00 [facility] LATEX DRUG INGREDI Active Rash 12-11 00:00: 00 [facility] Social History Social Habit Start Date Stop Date Quantity Comments Source [facility] Exposure to SARS-CoV-2 (event) 2023-02-25 00:00:00 2023-03-07 11:03:00 Not sure [facility] History of Social function 2022-07-17 00:00:00 2022-07-17 00:00:00 [facility] Alcohol intake 2019-12-23 00:00:00 2019-12-23 00:00:00 0 /d [facility] Alcohol Comment 2014-05-18 00:00:00 2014-05-18 00:00:00 rarely [facility] Tobacco use and exposure 2014-05-18 00:00:00 2014-05-18 00:00:00 Smokeless tobacco non-user [facility] Sex Assigned At 1985 00:00:00 1985 00:00:00 [facility] Smoking Status Start Date Stop Date Source Never smoked tobacco [facility] Medications Ordered Medication Name Filled Medication Name Start Date Stop Date Current Medication? Ordering Clinician Indication Dosage Frequency Signature (SIG) Comments Components Source benzonatate 200 mg capsule 03-07 00:00: 00 03-18 04:59 :00 No [id number] 200mg Take 1 capsule by mouth 3 (three) times daily as needed for Cough for up to [address] [facility] fluconazole (DIFLUCAN) 150 mg tablet 03-07 00:00: 00 03-08 04:59 :00 No [id number] 150mg Take 1 tablet by mouth once now for [address] [facility] metroNIDAZO LE 500 mg tablet 02-25 00:00: 00 02-26 04:59 :00 No [id number] 2000mg Take 4 tablets by mouth once now for [address] [facility] metroNIDAZO LE 500 mg tablet 02-25 00:00: 00 02-26 04:59 :00 No [id number] 2000mg Take 4 tablets by mouth once now for [address] [facility] metroNIDAZO LE 500 mg tablet 0 02-25 00:00: 00 02-26 04:59 :00 No [id number] 2000mg Take 4 tablets by mouth once now for [address] [facility] metroNIDAZO LE 500 mg tablet 0 02-25 00:00: 00 02-26 04:59 :00 No [id number] 2000mg Take 4 tablets by mouth once now for [address] [facility] ampicillin 500 mg capsule 0 5 00:00: 00 03-07 04:59 :00 No [id number] 500mg Take 1 capsule by mouth 4 (four) times daily for [address] [facility] ampicillin 500 mg capsule 0 02-24 00:00: 00 03-07 04:59 :00 No [id number] 500mg Take 1 capsule by mouth 4 (four) times daily for [address] [facility] ampicillin 500 mg capsule 2022-0 5 00:00: 00 03-07 04:59 :00 No [id number] 500mg Take 1 capsule by mouth 4 (four) times daily for [address] [facility] ampicillin 500 mg capsule 0 5 00:00: 00 03-07 04:59 :00 No [id number] 500mg Take 1 capsule by mouth 4 (four) times daily for [address] [facility] ampicillin 500 mg capsule 2022-0 02-24 00:00: 00 03-07 04:59 :00 No [id number] 500mg Take 1 capsule by mouth 4 (four) times daily for [address] [facility] ampicillin 500 mg capsule 2022-0 5 00:00: 00 03-07 04:59 :00 No [id number] 500mg Take 1 capsule by mouth 4 (four) times daily for [address] [facility] fluconazole (DIFLUCAN) 150 mg tablet 28 00:00: 00 02-22 04:59 :00 No [id number] 150mg Take 1 tablet by mouth once now for [address] [facility] fluconazole (DIFLUCAN) 150 mg tablet 02-21 00:00: 00 02-22 04:59 :00 No [id number] 150mg Take 1 tablet by mouth once now for 1 dose. [facility] fluconazole (DIFLUCAN) 150 mg tablet 02-21 00:00: 00 02-22 04:59 :00 No [id number] 150mg Take 1 tablet by mouth once now for [address] [facility] cetirizine (ZYRTEC) 10 mg tablet 11-24 00:00: 00 Yes [id number] 10mg Take 1 tablet by mouth in the morning. [facility] fluconazole (DIFLUCAN) 150 mg tablet 11-24 00:00: 00 Yes [id number] Take 1 tab by mouth now and repeat in [address] [facility] Nebulizer Accessories (ADULT AEROSOL MASK) [facility] 11-24 00:00: 00 Yes [id number] Use as directed [facility] cetirizine (ZYRTEC) 10 mg tablet 11-24 00:00: 00 Yes [id number] 10mg Take 1 tablet by mouth in the morning. [facility] fluconazole (DIFLUCAN) 150 mg tablet 11-24 00:00: 00 Yes [id number] Take 1 tab by mouth now and repeat in [address] [facility] Nebulizer Accessories (ADULT AEROSOL MASK) [facility] 11-24 00:00: 00 Yes [id number] Use as directed [facility] cetirizine (ZYRTEC) 10 mg tablet 11-24 00:00: 00 Yes [id number] 10mg Take 1 tablet by mouth in the morning. [facility] fluconazole (DIFLUCAN) 150 mg tablet 11-24 00:00: 00 Yes [id number] Take 1 tab by mouth now and repeat in 3 days [facility] Nebulizer Accessories (ADULT AEROSOL MASK) [facility] 11-24 00:00: 00 Yes [id number] Use as directed [facility] cetirizine (ZYRTEC) 10 mg tablet 11-24 00:00: 00 Yes [id number] 10mg Take 1 tablet by mouth in the morning. [facility] fluconazole (DIFLUCAN) 150 mg tablet 11-24 00:00: 00 Yes [id number] Take 1 tab by mouth now and repeat in 3 days [facility] Nebulizer Accessories (ADULT AEROSOL MASK) [facility] 11-24 00:00: 00 Yes [id number] Use as directed [facility] cetirizine (ZYRTEC) 10 mg tablet 11-24 00:00: 00 Yes [id number] 10mg Take 1 tablet by mouth in the morning. [facility] fluconazole (DIFLUCAN) 150 mg tablet 11-24 00:00: 00 Yes [id number] Take 1 tab by mouth now and repeat in [address] [facility] Nebulizer Accessories (ADULT AEROSOL MASK) [facility] 11-24 00:00: 00 Yes [id number] Use as directed [facility] cetirizine (ZYRTEC) 10 mg tablet 11-24 00:00: 00 Yes [id number] 10mg Take 1 tablet by mouth in the morning. [facility] fluconazole (DIFLUCAN) 150 mg tablet 11-24 00:00: 00 Yes [id number] Take 1 tab by mouth now and repeat in [address] [facility] Nebulizer Accessories (ADULT AEROSOL MASK) [facility] 11-24 00:00: 00 Yes [id number] Use as directed [facility] cetirizine (ZYRTEC) 10 mg tablet 11-24 00:00: 00 Yes [id number] 10mg Take 1 tablet by mouth in the morning. [facility] fluconazole (DIFLUCAN) 150 mg tablet 11-24 00:00: 00 Yes [id number] Take 1 tab by mouth now and repeat in 3 days [facility] Nebulizer Accessories (ADULT AEROSOL MASK) [facility] 11-24 00:00: 00 Yes [id number] Use as directed [facility] cetirizine (ZYRTEC) 10 mg tablet 11-24 00:00: 00 Yes [id number] 10mg Take 1 tablet by mouth in the morning. [facility] fluconazole (DIFLUCAN) 150 mg tablet 11-24 00:00: 00 Yes [id number] Take 1 tab by mouth now and repeat in [address] [facility] Nebulizer Accessories (ADULT AEROSOL MASK) [facility] 11-24 00:00: 00 Yes [id number] Use as directed [facility] cetirizine (ZYRTEC) 10 mg tablet 11-24 00:00: 00 Yes [id number] 10mg Take 1 tablet by mouth in the morning. [facility] fluconazole (DIFLUCAN) 150 mg tablet 11-24 00:00: 00 Yes [id number] Take 1 tab by mouth now and repeat in [address] [facility] Nebulizer Accessories (ADULT AEROSOL MASK) [facility] 11-24 00:00: 00 Yes [id number] Use as directed [facility] cetirizine (ZYRTEC) 10 mg tablet 11-24 00:00: 00 Yes [id number] 10mg Take 1 tablet by mouth in the morning. [facility] fluconazole (DIFLUCAN) 150 mg tablet 11-24 00:00: 00 Yes [id number] Take 1 tab by mouth now and repeat in [address] [facility] Nebulizer Accessories (ADULT AEROSOL MASK) [facility] 11-24 00:00: 00 Yes [id number] Use as directed [facility] cetirizine (ZYRTEC) 10 mg tablet 11-24 00:00: 00 Yes [id number] 10mg Take 1 tablet by mouth in the morning. [facility] fluconazole (DIFLUCAN) 150 mg tablet 11-24 00:00: 00 Yes [id number] Take 1 tab by mouth now and repeat in [address] [facility] Nebulizer Accessories (ADULT AEROSOL MASK) [facility] 11-24 00:00: 00 Yes [id number] Use as directed [facility] cetirizine (ZYRTEC) 10 mg tablet 11-24 00:00: 00 Yes [id number] 10mg Take 1 tablet by mouth in the morning. [facility] fluconazole (DIFLUCAN) 150 mg tablet 11-24 00:00: 00 Yes [id number] Take 1 tab by mouth now and repeat in 3 days [facility] Nebulizer Accessories (ADULT AEROSOL MASK) [facility] 11-24 00:00: 00 Yes [id number] Use as directed [facility] cetirizine (ZYRTEC) 10 mg tablet 11-24 00:00: 00 Yes [id number] 10mg Take 1 tablet by mouth in the morning. [facility] fluconazole (DIFLUCAN) 150 mg tablet 11-24 00:00: 00 Yes [id number] Take 1 tab by mouth now and repeat in 3 days [facility] Nebulizer Accessories (ADULT AEROSOL MASK) [facility] 11-24 00:00: 00 Yes [id number] Use as directed [facility] cetirizine (ZYRTEC) 10 mg tablet 11-24 00:00: 00 Yes [id number] 10mg Take 1 tablet by mouth in the morning. [facility] fluconazole (DIFLUCAN) 150 mg tablet 11-24 00:00: 00 Yes [id number] Take 1 tab by mouth now and repeat in 3 days [facility] Nebulizer Accessories (ADULT AEROSOL MASK) [facility] 11-24 00:00: 00 Yes [id number] Use as directed [facility] cetirizine (ZYRTEC) 10 mg tablet 11-24 00:00: 00 Yes [id number] 10mg Take 1 tablet by mouth in the morning. [facility] fluconazole (DIFLUCAN) 150 mg tablet 11-24 00:00: 00 Yes [id number] Take 1 tab by mouth now and repeat in 3 days [facility] Nebulizer Accessories (ADULT AEROSOL MASK) [facility] 11-24 00:00: 00 Yes [id number] Use as directed [facility] cetirizine (ZYRTEC) 10 mg tablet 11-24 00:00: 00 Yes [id number] 10mg Take 1 tablet by mouth in the morning. [facility] fluconazole (DIFLUCAN) 150 mg tablet 11-24 00:00: 00 Yes [id number] Take 1 tab by mouth now and repeat in [address] [facility] Nebulizer Accessories (ADULT AEROSOL MASK) [facility] 11-24 00:00: 00 Yes [id number] Use as directed [facility] cetirizine (ZYRTEC) 10 mg tablet 11-24 00:00: 00 Yes [id number] 10mg Take 1 tablet by mouth in the morning. [facility] fluconazole (DIFLUCAN) 150 mg tablet 11-24 00:00: 00 Yes [id number] Take 1 tab by mouth now and repeat in [address] [facility] Nebulizer Accessories (ADULT AEROSOL MASK) [facility] 11-24 00:00: 00 Yes [id number] Use as directed [facility] cetirizine (ZYRTEC) 10 mg tablet 11-24 00:00: 00 Yes [id number] 10mg Take 1 tablet by mouth in the morning. [facility] fluconazole (DIFLUCAN) 150 mg tablet 11-24 00:00: 00 Yes [id number] Take 1 tab by mouth now and repeat in [address] [facility] Nebulizer Accessories (ADULT AEROSOL MASK) [facility] 11-24 00:00: 00 Yes [id number] Use as directed [facility] albuterol 2.5 mg/0.5 mL nebulizer solution 11-24 00:00: 00 12-25 05:59 :00 No [id number] 2.5mg Inhale 0.5 mL every 6 (six) hours as needed for Wheezing for up to [address] [facility] amoxicillin -clavulanat e (AUGMENTIN) 875125 mg per tablet 1-29 00:00: 00 12-05 05:59 :00 No [id number] 1{tbl} Take 1 tablet by mouth in the morning and 1 tablet in the evening. Do all this for [address] [facility] sulfamethox azole-trime thoprim (BACTRIM DS) 800-160 mg per tablet 07-20 00:00: 00 07-28 04:59 :00 No [id number] 1{tbl} Take 1 tablet by mouth in the morning and 1 tablet in the evening. Do all this for [address] [facility] ondansetron 4 mg disintegrat ing tablet 07-17 00:00: 00 Yes [id number] 4mg Take 1 tablet by mouth every 8 (eight) hours as needed for Nausea and Vomiting (N/V). [facility] cetirizine (ZYRTEC) 10 mg tablet 07-17 00:00: 00 Yes [id number] 10mg Take 1 tablet by mouth in the morning. [facility] ondansetron 4 mg disintegrat ing tablet 07-17 00:00: 00 Yes [id number] 4mg Take 1 tablet by mouth every 8 (eight) hours as needed for Nausea and Vomiting (N/V). [facility] cetirizine (ZYRTEC) 10 mg tablet 07-17 00:00: 00 Yes [id number] 10mg Take 1 tablet by mouth in the morning. [facility] ondansetron 4 mg disintegrat ing tablet 07-17 00:00: 00 Yes [id number] 4mg Take 1 tablet by mouth every 8 (eight) hours as needed for Nausea and Vomiting (N/V). [facility] cetirizine (ZYRTEC) 10 mg tablet 07-17 00:00: 00 Yes [id number] 10mg Take 1 tablet by mouth in the morning. [facility] ondansetron 4 mg disintegrat ing tablet 07-17 00:00: 00 Yes [id number] 4mg Take 1 tablet by mouth every 8 (eight) hours as needed for Nausea and Vomiting (N/V). [facility] ondansetron 4 mg disintegrat ing tablet 07-17 00:00: 00 Yes [id number] 4mg Take 1 tablet by mouth every 8 (eight) hours as needed for Nausea and Vomiting (N/V). [facility] ondansetron 4 mg disintegrat ing tablet 07-17 00:00: 00 Yes [id number] 4mg Take 1 tablet by mouth every 8 (eight) hours as needed for Nausea and Vomiting (N/V). [facility] ondansetron 4 mg disintegrat ing tablet 07-17 00:00: 00 Yes [id number] 4mg Take 1 tablet by mouth every 8 (eight) hours as needed for Nausea and Vomiting (N/V). [facility] ondansetron 4 mg disintegrat ing tablet 07-17 00:00: 00 Yes [id number] 4mg Take 1 tablet by mouth every 8 (eight) hours as needed for Nausea and Vomiting (N/V). [facility] ondansetron 4 mg disintegrat ing tablet 07-17 00:00: 00 02-21 00:00 :00 No [id number] 4mg Take 1 tablet by mouth every 8 (eight) hours as needed for Nausea and Vomiting (N/V). [facility] ondansetron 4 mg disintegrat ing tablet 07-17 00:00: 00 02-21 00:00 :00 No [id number] 4mg Take 1 tablet by mouth every 8 (eight) hours as needed for Nausea and Vomiting (N/V). [facility] ondansetron 4 mg disintegrat ing tablet 07-17 00:00: 00 02-21 00:00 :00 No [id number] 4mg Take 1 tablet by mouth every 8 (eight) hours as needed for Nausea and Vomiting (N/V). [facility] cetirizine (ZYRTEC) 10 mg tablet 07-17 00:00: 00 11-24 00:00 :00 No [id number] 10mg Take 1 tablet by mouth in the morning. [facility] polymyxin B sulf-trimet hoprim 10,000 unit- 1 mg/mL ophthalmic drops 07-17 00:00: 00 07-25 04:59 :00 No [id number] 1[drp] Place 1 Drop in both eyes 4 (four) times daily for [address] [facility] polymyxin B sulf-trimet hoprim 10,000 unit- 1 mg/mL ophthalmic drops 07-17 00:00: 00 07-25 04:59 :00 No [id number] 1[drp] Place 1 Drop in both eyes 4 (four) times daily for [address] [facility] fluconazole (DIFLUCAN) 150 mg tablet 07-17 00:00: 00 07-18 04:59 :00 No [id number] 150mg Take 1 tablet by mouth once now for [address] [facility] amoxicillin -clavulanat e (AUGMENTIN) 875-125 mg per tablet 8-17 00:00: 00 06-20 04:59 :00 No [id number] 1{tbl} Take 1 tablet by mouth in the morning and 1 tablet in the evening. Do all this for [address] [facility] benzonatate 200 mg capsule 04-14 00:00: 00 04-25 04:59 :00 No [id number] 200mg Take 1 capsule by mouth 3 (three) times daily as needed for Cough for up to [address] [facility] amoxicillin -clavulanat e (AUGMENTIN) 875-125 mg per tablet 19 00:00: 00 04-22 04:59 :00 No [id number] 1{tbl} Take 1 tablet by mouth 2 (two) times daily for [address] [facility] amoxicillin -clavulanat e 875-125 mg per tablet 6-08 00:00: 00 04-11 04:59 :00 No [id number] 1{tbl} Take 1 tablet by mouth 2 (two) times daily for [address] [facility] ibuprofen 600 mg tablet 03-19 00:00: 00 Yes [id number] 100 600mg Take 1 tablet by mouth every 6 (six) hours as needed for Pain (scale 4-6). [facility] ibuprofen 600 mg tablet 03-19 00:00: 00 Yes [id number] 100 600mg Take 1 tablet by mouth every 6 (six) hours as needed for Pain (scale 4-6). [facility] ibuprofen 600 mg tablet 03-19 00:00: 00 Yes [id number] 100 600mg Take 1 tablet by mouth every 6 (six) hours as needed for Pain (scale 4-6). [facility] ibuprofen 600 mg tablet 03-19 00:00: 00 Yes [id number] 100 600mg Take 1 tablet by mouth every 6 (six) hours as needed for Pain (scale 4-6). [facility] ibuprofen 600 mg tablet 03-19 00:00: 00 07-17 00:00 :00 No [id number] 100 600mg Take 1 tablet by mouth every 6 (six) hours as needed for Pain (scale 4-6). [facility] guaiFENesin 400 mg tablet 2020-10 00:00: 00 Yes [id number] 400mg Take 1 tablet by mouth every 4 (four) hours as needed for Cough. [facility] ondansetron 4 mg disintegrat ing tablet 2020-10 00:00: 00 Yes [id number] 4mg Take 1 tablet by mouth every 8 (eight) hours as needed for Nausea and Vomiting (N/V). [facility] albuterol 90 mcg/actuati on inhaler 2020-10 00:00: 00 Yes [id number] 2{puff} Inhale 2 Puffs every 6 (six) hours as needed for Wheezing or Shortness of Breath. [facility] budesonide- formoteroL (SYMBICORT) 160-4.5 mcg/actuati on inhaler 2020-10 00:00: 00 Yes [id number] 2{puff} Inhale 2 Puffs 2 (two) times daily. [facility] guaiFENesin 400 mg tablet 2020-10 00:00: 00 Yes [id number] 400mg Take 1 tablet by mouth every 4 (four) hours as needed for Cough. [facility] ondansetron 4 mg disintegrat ing tablet 2020-10 00:00: 00 Yes [id number] 4mg Take 1 tablet by mouth every 8 (eight) hours as needed for Nausea and Vomiting (N/V). [facility] albuterol 90 mcg/actuati on inhaler 2020-10 00:00: 00 Yes [id number] 2{puff} Inhale 2 Puffs every 6 (six) hours as needed for Wheezing or Shortness of Breath. [facility] budesonide- formoteroL (SYMBICORT) 160-4.5 mcg/actuati on inhaler 2020-10 00:00: 00 Yes [id number] 2{puff} Inhale 2 Puffs 2 (two) times daily. [facility] ondansetron 4 mg disintegrat ing tablet 2020-10 00:00: 00 Yes [id number] 4mg Take 1 tablet by mouth every 8 (eight) hours as needed for Nausea and Vomiting (N/V). [facility] albuterol 90 mcg/actuati on inhaler 2020-10 00:00: 00 Yes [id number] 2{puff} Inhale 2 Puffs every 6 (six) hours as needed for Wheezing or Shortness of Breath. [facility] budesonide- formoteroL (SYMBICORT) 160-4.5 mcg/actuati on inhaler 2020-10 00:00: 00 Yes [id number] 2{puff} Inhale 2 Puffs 2 (two) times daily. [facility] ondansetron 4 mg disintegrat ing tablet 2020-10 00:00: 00 Yes [id number] 4mg Take 1 tablet by mouth every 8 (eight) hours as needed for Nausea and Vomiting (N/V). [facility] albuterol 90 mcg/actuati on inhaler 2020-10 2 00:00: 00 Yes [id number] 2{puff} Inhale 2 Puffs every 6 (six) hours as needed for Wheezing or Shortness of Breath. [facility] budesonide- formoteroL (SYMBICORT) 160-4.5 mcg/actuati on inhaler 2020-10 2 00:00: 00 Yes [id number] 2{puff} Inhale 2 Puffs 2 (two) times daily. [facility] ondansetron 4 mg disintegrat ing tablet 2020-10 00:00: 00 Yes [id number] 4mg Take 1 tablet by mouth every 8 (eight) hours as needed for Nausea and Vomiting (N/V). [facility] albuterol 90 mcg/actuati on inhaler 2020-10 00:00: 00 Yes [id number] 2{puff} Inhale 2 Puffs every 6 (six) hours as needed for Wheezing or Shortness of Breath. [facility] budesonide- formoteroL (SYMBICORT) 160-4.5 mcg/actuati on inhaler 2020-10 00:00: 00 Yes [id number] 2{puff} Inhale 2 Puffs 2 (two) times daily. [facility] ondansetron 4 mg disintegrat ing tablet 2020-10 00:00: 00 Yes [id number] 4mg Take 1 tablet by mouth every 8 (eight) hours as needed for Nausea and Vomiting (N/V). [facility] albuterol 90 mcg/actuati on inhaler 2020-10 2 00:00: 00 Yes [id number] 2{puff} Inhale 2 Puffs every 6 (six) hours as needed for Wheezing or Shortness of Breath. [facility] budesonide- formoteroL (SYMBICORT) 160-4.5 mcg/actuati on inhaler 2020-10 2 00:00: 00 Yes [id number] 2{puff} Inhale 2 Puffs 2 (two) times daily. [facility] ondansetron 4 mg disintegrat ing tablet 2020-10 00:00: 00 Yes [id number] 4mg Take 1 tablet by mouth every 8 (eight) hours as needed for Nausea and Vomiting (N/V). [facility] albuterol 90 mcg/actuati on inhaler 2020-10 00:00: 00 Yes [id number] 2{puff} Inhale 2 Puffs every 6 (six) hours as needed for Wheezing or Shortness of Breath. [facility] budesonide- formoteroL (SYMBICORT) 160-4.5 mcg/actuati on inhaler 2020-10 00:00: 00 Yes [id number] 2{puff} Inhale 2 Puffs 2 (two) times daily. [facility] ondansetron 4 mg disintegrat ing tablet 2020-10 00:00: 00 Yes [id number] 4mg Take 1 tablet by mouth every 8 (eight) hours as needed for Nausea and Vomiting (N/V). [facility] albuterol 90 mcg/actuati on inhaler 2020-10 00:00: 00 Yes [id number] 2{puff} Inhale 2 Puffs every 6 (six) hours as needed for Wheezing or Shortness of Breath. [facility] budesonide- formoteroL (SYMBICORT) 160-4.5 mcg/actuati on inhaler 2020-10 00:00: 00 Yes [id number] 2{puff} Inhale 2 Puffs 2 (two) times daily. [facility] ondansetron 4 mg disintegrat ing tablet 2020-10 00:00: 00 Yes [id number] 4mg Take 1 tablet by mouth every 8 (eight) hours as needed for Nausea and Vomiting (N/V). [facility] albuterol 90 mcg/actuati on inhaler 2020-10 00:00: 00 Yes [id number] 2{puff} Inhale 2 Puffs every 6 (six) hours as needed for Wheezing or Shortness of Breath. [facility] budesonide- formoteroL (SYMBICORT) 160-4.5 mcg/actuati on inhaler 2020-10 2 00:00: 00 Yes [id number] 2{puff} Inhale 2 Puffs 2 (two) times daily. [facility] ondansetron 4 mg disintegrat ing tablet 2020-10 00:00: 00 Yes [id number] 4mg Take 1 tablet by mouth every 8 (eight) hours as needed for Nausea and Vomiting (N/V). [facility] albuterol 90 mcg/actuati on inhaler 2020-10 00:00: 00 Yes [id number] 2{puff} Inhale 2 Puffs every 6 (six) hours as needed for Wheezing or Shortness of Breath. [facility] budesonide- formoteroL (SYMBICORT) 160-4.5 mcg/actuati on inhaler 2020-10 00:00: 00 Yes [id number] 2{puff} Inhale 2 Puffs 2 (two) times daily. [facility] albuterol 90 mcg/actuati on inhaler 2020-10 00:00: 00 Yes [id number] 2{puff} Inhale 2 Puffs every 6 (six) hours as needed for Wheezing or Shortness of Breath. [facility] budesonide- formoteroL (SYMBICORT) 160-4.5 mcg/actuati on inhaler 2020-10 00:00: 00 Yes [id number] 2{puff} Inhale 2 Puffs 2 (two) times daily. [facility] albuterol 90 mcg/actuati on inhaler 2020-10 00:00: 00 Yes [id number] 2{puff} Inhale 2 Puffs every 6 (six) hours as needed for Wheezing or Shortness of Breath. [facility] budesonide- formoteroL (SYMBICORT) 160-4.5 mcg/actuati on inhaler 2020-10 00:00: 00 Yes [id number] 2{puff} Inhale 2 Puffs 2 (two) times daily. [facility] albuterol 90 mcg/actuati on inhaler 2020-10 2- 00:00: 00 Yes [id number] 2{puff} Inhale 2 Puffs every 6 (six) hours as needed for Wheezing or Shortness of Breath. [facility] budesonide- formoteroL (SYMBICORT) 160-4.5 mcg/actuati on inhaler 2020-10 2- 00:00: 00 Yes [id number] 2{puff} Inhale 2 Puffs 2 (two) times daily. [facility] albuterol 90 mcg/actuati on inhaler 2020-10 2- 00:00: 00 Yes [id number] 2{puff} Inhale 2 Puffs every 6 (six) hours as needed for Wheezing or Shortness of Breath. [facility] budesonide- formoteroL (SYMBICORT) 160-4.5 mcg/actuati on inhaler 2020-10 2- 00:00: 00 Yes [id number] 2{puff} Inhale 2 Puffs 2 (two) times daily. [facility] albuterol 90 mcg/actuati on inhaler 2020-10 2 00:00: 00 Yes [id number] 2{puff} Inhale 2 Puffs every 6 (six) hours as needed for Wheezing or Shortness of Breath. [facility] budesonide- formoteroL (SYMBICORT) 160-4.5 mcg/actuati on inhaler 2020-10 2- 00:00: 00 Yes [id number] 2{puff} Inhale 2 Puffs 2 (two) times daily. [facility] albuterol 90 mcg/actuati on inhaler 2020-10 2- 00:00: 00 Yes [id number] 2{puff} Inhale 2 Puffs every 6 (six) hours as needed for Wheezing or Shortness of Breath. [facility] budesonide- formoteroL (SYMBICORT) 160-4.5 mcg/actuati on inhaler 2020-10 2- 00:00: 00 Yes [id number] 2{puff} Inhale 2 Puffs 2 (two) times daily. [facility] albuterol 90 mcg/actuati on inhaler 2020-10 2- 00:00: 00 Yes [id number] 2{puff} Inhale 2 Puffs every 6 (six) hours as needed for Wheezing or Shortness of Breath. [facility] budesonide- formoteroL (SYMBICORT) 160-4.5 mcg/actuati on inhaler 2020-10 2- 00:00: 00 Yes [id number] 2{puff} Inhale 2 Puffs 2 (two) times daily. [facility] albuterol 90 mcg/actuati on inhaler 2020-10 2 00:00: 00 Yes [id number] 2{puff} Inhale 2 Puffs every 6 (six) hours as needed for Wheezing or Shortness of Breath. [facility] budesonide- formoteroL (SYMBICORT) 160-4.5 mcg/actuati on inhaler 2020-10 2 00:00: 00 Yes [id number] 2{puff} Inhale 2 Puffs 2 (two) times daily. [facility] albuterol 90 mcg/actuati on inhaler 2020-10 2 00:00: 00 Yes [id number] 2{puff} Inhale 2 Puffs every 6 (six) hours as needed for Wheezing or Shortness of Breath. [facility] budesonide- formoteroL (SYMBICORT) 160-4.5 mcg/actuati on inhaler 2020-10 2- 00:00: 00 Yes [id number] 2{puff} Inhale 2 Puffs 2 (two) times daily. [facility] albuterol 90 mcg/actuati on inhaler 2020-10 2- 00:00: 00 Yes [id number] 2{puff} Inhale 2 Puffs every 6 (six) hours as needed for Wheezing or Shortness of Breath. [facility] budesonide- formoteroL (SYMBICORT) 160-4.5 mcg/actuati on inhaler 2020-10 2- 00:00: 00 Yes [id number] 2{puff} Inhale 2 Puffs 2 (two) times daily. [facility] albuterol 90 mcg/actuati on inhaler 2020-10 2- 00:00: 00 Yes [id number] 2{puff} Inhale 2 Puffs every 6 (six) hours as needed for Wheezing or Shortness of Breath. [facility] budesonide- formoteroL (SYMBICORT) 160-4.5 mcg/actuati on inhaler 2020-10 2- 00:00: 00 Yes [id number] 2{puff} Inhale 2 Puffs 2 (two) times daily. [facility] albuterol 90 mcg/actuati on inhaler 2020-10 2 00:00: 00 Yes [id number] 2{puff} Inhale 2 Puffs every 6 (six) hours as needed for Wheezing or Shortness of Breath. [facility] budesonide- formoteroL (SYMBICORT) 160-4.5 mcg/actuati on inhaler 2020-10 2 00:00: 00 Yes [id number] 2{puff} Inhale 2 Puffs 2 (two) times daily. [facility] albuterol 90 mcg/actuati on inhaler 2020-10 2 00:00: 00 Yes [id number] 2{puff} Inhale 2 Puffs every 6 (six) hours as needed for Wheezing or Shortness of Breath. [facility] budesonide- formoteroL (SYMBICORT) 160-4.5 mcg/actuati on inhaler 2020-10 2- 00:00: 00 Yes [id number] 2{puff} Inhale 2 Puffs 2 (two) times daily. [facility] albuterol 90 mcg/actuati on inhaler 2020-10 2- 00:00: 00 Yes [id number] 2{puff} Inhale 2 Puffs every 6 (six) hours as needed for Wheezing or Shortness of Breath. [facility] budesonide- formoteroL (SYMBICORT) 160-4.5 mcg/actuati on inhaler 2020-10 2- 00:00: 00 Yes [id number] 2{puff} Inhale 2 Puffs 2 (two) times daily. [facility] benzonatate 100 mg capsule 2020-10 00:00: 00 Yes [id number] 200mg Take 2 capsules by mouth 2 (two) times daily as needed for Cough. [facility] guaiFENesin 400 mg tablet 2020-10 00:00: 00 Yes [id number] 400mg Take 1 tablet by mouth every 4 (four) hours as needed for Cough. [facility] ondansetron 4 mg disintegrat ing tablet 2020-10 00:00: 00 Yes [id number] 4mg Take 1 tablet by mouth every 8 (eight) hours as needed for Nausea and Vomiting (N/V). [facility] albuterol 90 mcg/actuati on inhaler 2020-10 00:00: 00 Yes [id number] 2{puff} Inhale 2 Puffs every 6 (six) hours as needed for Wheezing or Shortness of Breath. [facility] budesonide- formoteroL (SYMBICORT) 160-4.5 mcg/actuati on inhaler 2020-10 00:00: 00 Yes [id number] 2{puff} Inhale 2 Puffs 2 (two) times daily. [facility] benzonatate 100 mg capsule 2020-10 00:00: 00 Yes [id number] 200mg Take 2 capsules by mouth 2 (two) times daily as needed for Cough. [facility] guaiFENesin 400 mg tablet 2020-10 00:00: 00 Yes [id number] 400mg Take 1 tablet by mouth every 4 (four) hours as needed for Cough. [facility] ondansetron 4 mg disintegrat ing tablet 2020-10 00:00: 00 Yes [id number] 4mg Take 1 tablet by mouth every 8 (eight) hours as needed for Nausea and Vomiting (N/V). [facility] albuterol 90 mcg/actuati on inhaler 2020-10 00:00: 00 Yes [id number] 2{puff} Inhale 2 Puffs every 6 (six) hours as needed for Wheezing or Shortness of Breath. [facility] budesonide- formoteroL (SYMBICORT) 160-4.5 mcg/actuati on inhaler 2020-10 00:00: 00 Yes [id number] 2{puff} Inhale 2 Puffs 2 (two) times daily. [facility] benzonatate 100 mg capsule 2020-10 00:00: 00 Yes [id number] 200mg Take 2 capsules by mouth 2 (two) times daily as needed for Cough. [facility] guaiFENesin 400 mg tablet 2020-10 00:00: 00 Yes [id number] 400mg Take 1 tablet by mouth every 4 (four) hours as needed for Cough. [facility] ondansetron 4 mg disintegrat ing tablet 2020-10 00:00: 00 Yes [id number] 4mg Take 1 tablet by mouth every 8 (eight) hours as needed for Nausea and Vomiting (N/V). [facility] albuterol 90 mcg/actuati on inhaler 2020-10 00:00: 00 Yes [id number] 2{puff} Inhale 2 Puffs every 6 (six) hours as needed for Wheezing or Shortness of Breath. [facility] budesonide- formoteroL (SYMBICORT) 160-4.5 mcg/actuati on inhaler 2020-10 00:00: 00 Yes [id number] 2{puff} Inhale 2 Puffs 2 (two) times daily. [facility] benzonatate 100 mg capsule 2020-10 00:00: 00 Yes [id number] 200mg Take 2 capsules by mouth 2 (two) times daily as needed for Cough. [facility] guaiFENesin 400 mg tablet 2020-10 00:00: 00 Yes [id number] 400mg Take 1 tablet by mouth every 4 (four) hours as needed for Cough. [facility] ondansetron 4 mg disintegrat ing tablet 2020-10 00:00: 00 Yes [id number] 4mg Take 1 tablet by mouth every 8 (eight) hours as needed for Nausea and Vomiting (N/V). [facility] albuterol 90 mcg/actuati on inhaler 2020-10 00:00: 00 Yes [id number] 2{puff} Inhale 2 Puffs every 6 (six) hours as needed for Wheezing or Shortness of Breath. [facility] budesonide- formoteroL (SYMBICORT) 160-4.5 mcg/actuati on inhaler 2020-10 00:00: 00 Yes [id number] 2{puff} Inhale 2 Puffs 2 (two) times daily. [facility] ondansetron 4 mg disintegrat ing tablet 2020-10 00:00: 00 02-21 00:00 :00 No [id number] 4mg Take 1 tablet by mouth every 8 (eight) hours as needed for Nausea and Vomiting (N/V). [facility] ondansetron 4 mg disintegrat ing tablet 2020-10 00:00: 00 02-21 00:00 :00 No [id number] 4mg Take 1 tablet by mouth every 8 (eight) hours as needed for Nausea and Vomiting (N/V). [facility] ondansetron 4 mg disintegrat ing tablet 2020-10 00:00: 00 02-21 00:00 :00 No [id number] 4mg Take 1 tablet by mouth every 8 (eight) hours as needed for Nausea and Vomiting (N/V). [facility] guaiFENesin 400 mg tablet 2020-10 00:00: 00 07-17 00:00 :00 No [id number] 400mg Take 1 tablet by mouth every 4 (four) hours as needed for Cough. [facility] benzonatate 100 mg capsule 2020-10 00:00: 00 04-14 00:00 :00 No [id number] 200mg Take 2 capsules by mouth 2 (two) times daily as needed for Cough. [facility] amoxicillin -clavulanat e (AUGMENTIN) 875-125 mg per tablet 2020-10 00:00: 00 2021- 12-14 05:59 :00 No [id number] 1{tbl} Take 1 tablet by mouth 2 (two) times daily for [address] [facility] proMETHazin e (PHENERGAN) 25 mg in NaCl 0.9% (NS) 50 mL IV piggyback 2019-10 21:26: 00 08-04 21:35 :00 No 25mg 25 mg, IV Piggyback, ONCE, 1 dose, Fri08/04/20 at 1630, Routine, PACU [facility] FENTanyl PF (SUBLIMAZE (PF)) injection 25 mcg 2019-10 20:54: 14 Yes 25ug 25 mcg, Slow IV Push, Q5MIN PRN, 4 doses, Starting Fri08/04/20 at 1554, Until Discontinu ed, Routine, Pain (scale 7-10), PACU [facility] ketorolac (TORADOL) injection 30 mg 2019-10 20:54: 14 08-04 21:44 :00 No 30mg 30 mg, Slow IV Push, PRN, 1 dose, Starting Fri08/04/20 at 1554, Until Discontinu ed, Routine, Pain (scale 4-6), PAC[facility] : PACU RECOVERY [facility] ondansetron (ZOFRAN (PF)) injection 4 mg 2019-10 20:54: 14 08-04 21:01 :00 No 4mg 4 mg, Slow IV Push, PRN, 1 dose, Starting Fri08/04/20 at 1554, Until Fri08/04/20 at 1601, Routine, Nausea and Vomiting (N/V), PACU [facility] ondansetron (ZOFRAN (PF)) injection 2019-10 20:14: 00 08-04 20:54 :20 No ONCE INTRA PROCEDURE, Starting Fri08/04/20 at 1514, Until Fri08/04/20 at 1554, Routine, Intra-op [facility] bupivacaine -epinephrin e-pf (SENSORCAIN E W/EPINEPHRI NE) 0.25 %-1:200,000 injection 2019-10 20:12: 00 Yes PRN, Starting Fri08/04/20 at 1512, Until Discontinu ed, Routine, [facility]op [facility] PHENYLephri ne 1000 mcg/10 mL in 0.9% NaCl syringe 2019-10 20:05: 00 08-04 20:54 :20 No ONCE INTRA PROCEDURE, Starting Fri08/04/20 at 1505, Until Fri08/04/20 at 1554, Routine, [facility]-op [facility] ePHEDrine 25 mg/5 mL (5 mg/mL) syringe 2019-10 20:00: 00 08-04 20:54 :20 No ONCE INTRA PROCEDURE, Starting Fri08/04/20 at 1500, Until Fri08/04/20 at 1554, Routine, Intra-op [facility] HYDROmorphO ne (DILAUDID) injection 2019-10 19:51: 00 08-04 20:54 :20 No ONCE INTRA PROCEDURE, Starting Fri08/04/20 at 1451, Until Fri08/04/20 at 1554, Routine, Intra-op [facility] ceFAZolin (ANCEF) injection 2019-10 19:44: 00 08-04 20:54 :20 No ONCE INTRA PROCEDURE, Starting Fri08/04/20 at 1444, Until Fri08/04/20 at 1554, ELAINE, Intra-op [facility] acetaminoph en ADULT (OFIRMEV) injection 2019-10 19:40: 00 08-04 20:54 :20 No Administer over 15 Minutes, ONCE INTRA PROCEDURE, Starting Fri08/04/20 at 1440, Until Fri08/04/20 at 1554, Routine, Intra-op [facility] propofoL IV infusion 2019-10 0 19:38: 00 08-04 20:54 :20 No ONCE INTRA PROCEDURE, Starting Fri08/04/20 at 1438, Until Fri08/04/20 at 1554, Routine, Intra-op [facility] lidocaine 1% (XYLOCAINE) 100 mg/10 mL (1 %) injection 2019-10 0 19:37: 00 08-04 20:54 :20 No ONCE INTRA PROCEDURE, Starting Fri08/04/20 at 1437, Until Fri08/04/20 at 1554, Routine, Intra-op [facility] FENTanyl PF (SUBLIMAZE (PF)) injection 2019-10 19:37: 00 08-04 20:54 :20 No ONCE INTRA PROCEDURE, Starting Fri08/04/20 at 1437, Until Fri08/04/20 at 1554, Routine, Intra[facility]op [facility] midazolam (VERSED) injection 2019-10 19:32: 00 08-04 20:54 :20 No ONCE INTRA PROCEDURE, Starting Fri08/04/20 at 1432, Until Fri08/04/20 at 1554, Routine, Intra-op [facility] lactated ringers IV infusion 2019-10 18:28: 00 08-04 20:54 :20 No CONTINUOUS PRN, Starting Fri08/04/20 at 1328, Until Fri08/04/20 at 1554, Routine, Intra-op [facility] lactated ringers IV infusion 1,000 mL 2019-10 16:15: 00 08-04 18:29 :00 No 1000mL at 42 mL/hr, 1,000 mL, IV Infusion, ONCE, 1 dose, Fri08/04/20 at 1115, Routine, DSU Pre-op [facility] gabapentin 300 mg capsule 2019-10 00:00: 00 10-04 05:59 :00 No [id number] 300mg Take 1 capsule by mouth 3 (three) times daily for [address] [facility] gabapentin 300 mg capsule 2019-10 00:00: 00 10-04 05:59 :00 No [id number] 300mg Take 1 capsule by mouth 3 (three) times daily for [address] [facility] gabapentin 300 mg capsule 2019-10 00:00: 00 10-04 05:59 :00 No [id number] 300mg Take 1 capsule by mouth 3 (three) times daily for [address] [facility] HYDROcodone -acetaminop hen 5-325 mg tablet 2019-10 00:00: 08-12 04:59 :00 No [id number] 1{tbl} Take 1 tablet by mouth every 6 (six) hours as needed for Pain (scale 4-6) for up to 7 days. Indication s: acute pain [facility] ondansetron 4 mg tablet 2019-10 0-09 00:00: 00 08-12 04:59 :00 No [id number] 4mg Take 1 tablet by mouth every 8 (eight) hours as needed for Nausea and Vomiting (N/V) for up to [address] [facility] HYDROcodone -acetaminop hen 5-325 mg tablet 2019-10 0- 00:00: 08-12 04:59 :00 No [id number] 1{tbl} Take 1 tablet by mouth every 6 (six) hours as needed for Pain (scale 4-6) for up to 7 days. Indication s: acute pain [facility] ondansetron 4 mg tablet 2019-10 0 00:00: 00 08-12 04:59 :00 No [id number] 4mg Take 1 tablet by mouth every 8 (eight) hours as needed for Nausea and Vomiting (N/V) for up to [address] [facility] nystatin-tr iamcinolone cream 2020-0 8-10 00:00: 00 Yes [id number] Apply to area(s) 3 (three) times daily. [facility] nystatin-tr iamcinolone cream 2020-0 8-10 00:00: 00 Yes [id number] Apply to area(s) 3 (three) times daily. [facility] nystatin-tr iamcinolone cream 2020-0 8-10 00:00: 00 Yes [id number] Apply to area(s) 3 (three) times daily. [facility] nystatin-tr iamcinolone cream 2020-0 8-10 00:00: 00 Yes [id number] Apply to area(s) 3 (three) times daily. [facility] nystatin-tr iamcinolone cream 2020-0 8-10 00:00: 00 Yes [id number] Apply to area(s) 3 (three) times daily. [facility] nystatin-tr iamcinolone cream 2020-0 8-10 00:00: 00 Yes [id number] Apply to area(s) 3 (three) times daily. [facility] nystatin-tr iamcinolone cream 2020-0 8-10 00:00: 00 Yes [id number] Apply to area(s) 3 (three) times daily. [facility] nystatin-tr iamcinolone cream 2020-0 8-10 00:00: 00 Yes [id number] Apply to area(s) 3 (three) times daily. [facility] nystatin-tr iamcinolone cream 2020-0 8-10 00:00: 00 Yes [id number] Apply to area(s) 3 (three) times daily. [facility] iam[facility] 2020-0 8-10 00:00: 00 Yes [id number] Apply to area(s) 3 (three) times daily. [facility] nystatin-tr iamcinolone cream 2020-0 8-10 00:00: 00 Yes [id number] Apply to area(s) 3 (three) times daily. [facility] nystatin-tr iamcinolone cream 2020-0 8-10 00:00: 00 Yes [id number] Apply to area(s) 3 (three) times daily. [facility] nystatin-tr iamcinolone cream 2020-0 8-10 00:00: 00 Yes [id number] Apply to area(s) 3 (three) times daily. [facility] nystatin-tr iamcinolone cream 2020-0 8-10 00:00: 00 Yes [id number] Apply to area(s) 3 (three) times daily. [facility] nystatin-tr iamcinolone cream 2020-0 8-10 00:00: 00 Yes [id number] Apply to area(s) 3 (three) times daily. [facility] nystatin-tr iamcinolone cream 2020-0 8-10 00:00: 00 Yes [id number] Apply to area(s) 3 (three) times daily. [facility] nystatin-tr iamcinolone cream 2020-0 8-10 00:00: 00 Yes [id number] Apply to area(s) 3 (three) times daily. [facility] nystatin-tr iamcinolone cream 2020-0 8-10 00:00: 00 Yes [id number] Apply to area(s) 3 (three) times daily. [facility] nystatin-tr iamcinolone cream 2020-0 8-10 00:00: 00 Yes [id number] Apply to area(s) 3 (three) times daily. [facility] nystatin-tr iamcinolone cream 2020-0 8-10 00:00: 00 Yes [id number] Apply to area(s) 3 (three) times daily. [facility] nystatin-tr iamcinolone cream 2020-0 8-10 00:00: 00 Yes [id number] Apply to area(s) 3 (three) times daily. [facility] nystatin-tr iamcinolone cream 2020-0 8-10 00:00: 00 Yes [id number] Apply to area(s) 3 (three) times daily. [facility] of [facility] nystatin-tr iamcinolone cream 2020-0 8-10 00:00: 00 Yes [id number] Apply to area(s) 3 (three) times daily. [facility] nystatin-tr iamcinolone cream 2020-0 8-10 00:00: 00 Yes [id number] Apply to area(s) 3 (three) times daily. [facility] nystatin-tr iamcinolone cream 2020-0 8-10 00:00: 00 Yes [id number] Apply to area(s) 3 (three) times daily. [facility] nystatin-tr iamcinolone cream 2020-0 8-10 00:00: 00 Yes [id number] Apply to area(s) 3 (three) times daily. [facility] nystatin-tr iamcinolone cream 2020-0 8-10 00:00: 00 Yes [id number] Apply to area(s) 3 (three) times daily. [facility] nystatin-tr iamcinolone cream 2020-0 8-10 00:00: 00 Yes [id number] Apply to area(s) 3 (three) times daily. [facility] nystatin-tr iamcinolone cream 2020-0 8-10 00:00: 00 Yes [id number] Apply to area(s) 3 (three) times daily. [facility] nystatin-tr iamcinolone cream 2020-0 8-10 00:00: 00 Yes [id number] Apply to area(s) 3 (three) times daily. [facility] nystatin-tr iamcinolone cream 2020-0 8-10 00:00: 00 07-17 00:00 :00 No [id number] Apply to area(s) 3 (three) times daily. [facility] nystatin-tr iamcinolone cream 2020-0 8-10 00:00: 00 07-17 00:00 :00 No [id number] Apply to area(s) 3 (three) times daily. [facility] indomethaci n 50 mg capsule 2020-0 5-06 00:00: 00 Yes TK 1 C PO Q 6 H PRN [facility] indomethaci n 50 mg capsule 2020-0 5-06 00:00: 00 Yes TK 1 C PO Q 6 H PRN [facility] indomethaci n 50 mg capsule 2020-0 5-06 00:00: 00 Yes TK 1 C PO Q 6 H PRN [facility] indomethaci n 50 mg capsule 2020-0 5-06 00:00: 00 Yes TK 1 C PO Q 6 H PRN [facility] indomethaci n 50 mg capsule 2020-0 5-06 00:00: 00 Yes TK 1 C PO Q 6 H PRN [facility] indomethaci n 50 mg capsule 2020-0 5-06 00:00: 00 Yes TK 1 C PO Q 6 H PRN [facility] indomethaci n 50 mg capsule 2020-0 5-06 00:00: 00 Yes TK 1 C PO Q 6 H PRN [facility] indomethaci n 50 mg capsule 2020-0 5-06 00:00: 00 06-05 00:00 :00 No TK 1 C PO Q 6 H PRN [facility] indomethaci n 50 mg capsule 2019-0 03-01 00:00: 00 06-05 00:00 :00 No TK 1 C PO Q 6 H PRN [facility] indomethaci n 50 mg capsule 2019-0 03-01 00:00: 00 06-05 00:00 :00 No TK 1 C PO Q 6 H PRN [facility] PROAIR HFA 90 mcg/actuati on inhaler 2020-0 - 00:00: 00 Yes [facility] PROAIR HFA 90 mcg/actuati on inhaler 2020-0 02-02 00:00: 00 Yes [facility] PROAIR HFA 90 mcg/actuati on inhaler 2020-0 - 00:00: 00 Yes [facility] PROAIR HFA 90 mcg/actuati on inhaler 2020-0 - 00:00: 00 Yes [facility] PROAIR HFA 90 mcg/actuati on inhaler 2020-0 4- 00:00: 00 Yes [facility] PROAIR HFA 90 mcg/actuati on inhaler 2020-0 - 00:00: 00 Yes [facility] PROAIR HFA 90 mcg/actuati on inhaler 2020-0 4- 00:00: 00 Yes [facility] PROAIR HFA 90 mcg/actuati on inhaler 2020-0 4- 00:00: 00 Yes [facility] PROAIR HFA 90 mcg/actuati on inhaler 2020-0 4- 00:00: 00 Yes [facility] PROAIR HFA 90 mcg/actuati on inhaler 2020-0 4- 00:00: 00 Yes [facility] PROAIR HFA 90 mcg/actuati on inhaler 2020-0 4- 00:00: 00 Yes [facility] PROAIR HFA 90 mcg/actuati on inhaler 2020-0 4-09 00:00: 00 Yes [facility] PROAIR HFA 90 mcg/actuati on inhaler 2020-0 4-09 00:00: 00 Yes [facility] PROAIR HFA 90 mcg/actuati on inhaler 2020-0 4- 00:00: 00 Yes [facility] PROAIR HFA 90 mcg/actuati on inhaler 2020-0 02-02 00:00: 00 Yes [facility] PROAIR HFA 90 mcg/actuati on inhaler 2020-0 - 00:00: 00 Yes [facility] PROAIR HFA 90 mcg/actuati on inhaler 2020-0 - 00:00: 00 Yes [facility] PROAIR HFA 90 mcg/actuati on inhaler 2020-0 02-02 00:00: 00 Yes [facility] PROAIR HFA 90 mcg/actuati on inhaler 2020-0 02-02 00:00: 00 Yes [facility] PROAIR HFA 90 mcg/actuati on inhaler 2020-0 02-02 00:00: 00 Yes [facility] PROAIR HFA 90 mcg/actuati on inhaler 2020-0 02-02 00:00: 00 Yes [facility] PROAIR HFA 90 mcg/actuati on inhaler 2020-0 02-02 00:00: 00 Yes [facility] PROAIR HFA 90 mcg/actuati on inhaler 2020-0 02-02 00:00: 00 Yes [facility] PROAIR HFA 90 mcg/actuati on inhaler 2020-0 02-02 00:00: 00 Yes [facility] PROAIR HFA 90 mcg/actuati on inhaler 2020-0 02-02 00:00: 00 Yes [facility] PROAIR HFA 90 mcg/actuati on inhaler 2020-0 02-02 00:00: 00 Yes [facility] PROAIR HFA 90 mcg/actuati on inhaler 2020-0 02-02 00:00: 00 Yes [facility] PROAIR HFA 90 mcg/actuati on inhaler 2020-0 02-02 00:00: 00 Yes [facility] PROAIR HFA 90 mcg/actuati on inhaler 2020-0 - 00:00: 00 Yes [facility] PROAIR HFA 90 mcg/actuati on inhaler 2020-0 4- 00:00: 00 Yes [facility] PROAIR HFA 90 mcg/actuati on inhaler 2020-0 - 00:00: 00 Yes [facility] PROAIR HFA 90 mcg/actuati on inhaler 2020-0 - 00:00: 00 Yes [facility] PROAIR HFA 90 mcg/actuati on inhaler 2020-0 - 00:00: 00 Yes [facility] PROAIR HFA 90 mcg/actuati on inhaler 2020-0 02-02 00:00: 00 Yes [facility] PROAIR HFA 90 mcg/actuati on inhaler 2020-0 02-02 00:00: 00 Yes [facility] PROAIR HFA 90 mcg/actuati on inhaler 2020-0 02-02 00:00: 00 Yes [facility] azithromyci n 250 mg tablet 2020-0 02-02 00:00: 00 Yes [facility] SYMBICORT 160-4.5 mcg/actuati on inhaler 2020-0 02-02 00:00: 00 Yes [facility] PROAIR HFA 90 mcg/actuati on inhaler 2020-0 02-02 00:00: 00 Yes [facility] azithromyci n 250 mg tablet 2020-0 02-02 00:00: 00 Yes [facility] SYMBICORT 160-4.5 mcg/actuati on inhaler 2020-0 02-02 00:00: 00 Yes [facility] PROAIR HFA 90 mcg/actuati on inhaler 2020-0 - 00:00: 00 Yes [facility] azithromyci n 250 mg tablet 2020-0 02-02 00:00: 00 Yes [facility] SYMBICORT 160-4.5 mcg/actuati on inhaler 2020-0 02-02 00:00: 00 Yes [facility] PROAIR HFA 90 mcg/actuati on inhaler 2020-0 - 00:00: 00 Yes [facility] azithromyci n 250 mg tablet 2020-0 - 00:00: 00 Yes [facility] SYMBICORT 160-4.5 mcg/actuati on inhaler 2020-0 02-02 00:00: 00 Yes [facility] PROAIR HFA 90 mcg/actuati on inhaler 2020-0 02-02 00:00: 00 Yes [facility] azithromyci n 250 mg tablet 2020-0 - 00:00: 00 Yes [facility] SYMBICORT 160-4.5 mcg/actuati on inhaler 2020-0 02-02 00:00: 00 Yes [facility] PROAIR HFA 90 mcg/actuati on inhaler 2020-0 02-02 00:00: 00 Yes [facility] azithromyci n 250 mg tablet 2020-0 02-02 00:00: 00 Yes [facility] SYMBICORT 160-4.5 mcg/actuati on inhaler 2020-0 02-02 00:00: 00 Yes [facility] PROAIR HFA 90 mcg/actuati on inhaler 2020-0 02-02 00:00: 00 Yes [facility] azithromyci n 250 mg tablet 2020-0 02-02 00:00: 00 Yes [facility] SYMBICORT 160-4.5 mcg/actuati on inhaler 2020-0 02-02 00:00: 00 Yes [facility] PROAIR HFA 90 mcg/actuati on inhaler 2020-0 02-02 00:00: 00 Yes [facility] SYMBICORT 160-4.5 mcg/actuati on inhaler 2020-0 02-02 00:00: 00 Yes [facility] PROAIR HFA 90 mcg/actuati on inhaler 2020-0 02-02 00:00: 00 Yes [facility] SYMBICORT 160-4.5 mcg/actuati on inhaler 2020-0 02-02 00:00: 00 Yes [facility] PROAIR HFA 90 mcg/actuati on inhaler 2020-0 00:00: 00 Yes [facility] SYMBICORT 160-4.5 mcg/actuati on inhaler 2020-0 02-02 00:00: 00 Yes [facility] PROAIR HFA 90 mcg/actuati on inhaler 2020-0 02-02 00:00: 00 Yes [facility] SYMBICORT 160-4.5 mcg/actuati on inhaler 2020-0 02-02 00:00: 00 Yes [facility] PROAIR HFA 90 mcg/actuati on inhaler 2020-0 02-02 00:00: 00 Yes [facility] SYMBICORT 160-4.5 mcg/actuati on inhaler 2020-0 02-02 00:00: 00 Yes [facility] PROAIR HFA 90 mcg/actuati on inhaler 2020-0 02-02 00:00: 00 Yes [facility] SYMBICORT 160-4.5 mcg/actuati on inhaler 2020-0 02-02 00:00: 00 Yes [facility] PROAIR HFA 90 mcg/actuati on inhaler 2020-0 02-02 00:00: 00 Yes [facility] SYMBICORT 160-4.5 mcg/actuati on inhaler 2020-0 02-02 00:00: 00 Yes [facility] PROAIR HFA 90 mcg/actuati on inhaler 2020-0 02-02 00:00: 00 Yes [facility] SYMBICORT 160-4.5 mcg/actuati on inhaler 2020-0 02-02 00:00: 00 Yes [facility] PROAIR HFA 90 mcg/actuati on inhaler 2020-0 02-02 00:00: 00 Yes [facility] SYMBICORT 160-4.5 mcg/actuati on inhaler 2020-0 02-02 00:00: 00 Yes [facility] PROAIR HFA 90 mcg/actuati on inhaler 2020-0 02-02 00:00: 00 Yes [facility] SYMBICORT 160-4.5 mcg/actuati on inhaler 2020-0 02-02 00:00: 00 Yes [facility] PROAIR HFA 90 mcg/actuati on inhaler 2020-0 4- 00:00: 00 Yes [facility] SYMBICORT 160-4.5 mcg/actuati on inhaler 2020-0 4- 00:00: 00 Yes [facility] PROAIR HFA 90 mcg/actuati on inhaler 2020-0 - 00:00: 00 Yes [facility] SYMBICORT 160-4.5 mcg/actuati on inhaler 2020-0 4- 00:00: 00 Yes [facility] PROAIR HFA 90 mcg/actuati on inhaler 2020-0 - 00:00: 00 Yes [facility] SYMBICORT 160-4.5 mcg/actuati on inhaler 2020-0 - 00:00: 00 Yes [facility] PROAIR HFA 90 mcg/actuati on inhaler 2020-0 02-02 00:00: 00 Yes [facility] SYMBICORT 160-4.5 mcg/actuati on inhaler 2020-0 - 00:00: 00 Yes [facility] PROAIR HFA 90 mcg/actuati on inhaler 2020-0 02-02 00:00: 00 Yes [facility] SYMBICORT 160-4.5 mcg/actuati on inhaler 2020-0 02-02 00:00: 00 Yes [facility] PROAIR HFA 90 mcg/actuati on inhaler 2020-0 - 00:00: 00 Yes [facility] SYMBICORT 160-4.5 mcg/actuati on inhaler 2020-0 - 00:00: 00 Yes [facility] PROAIR HFA 90 mcg/actuati on inhaler 2020-0 - 00:00: 00 Yes [facility] SYMBICORT 160-4.5 mcg/actuati on inhaler 2020-0 4- 00:00: 00 Yes [facility] PROAIR HFA 90 mcg/actuati on inhaler 2020-0 4- 00:00: 00 Yes [facility] SYMBICORT 160-4.5 mcg/actuati on inhaler 2020-0 4- 00:00: 00 Yes [facility] PROAIR HFA 90 mcg/actuati on inhaler 2020-0 4- 00:00: 00 Yes [facility] SYMBICORT 160-4.5 mcg/actuati on inhaler 2020-0 - 00:00: 00 Yes [facility] PROAIR HFA 90 mcg/actuati on inhaler 2020-0 4- 00:00: 00 Yes [facility] SYMBICORT 160-4.5 mcg/actuati on inhaler 2020-0 4- 00:00: 00 Yes [facility] PROAIR HFA 90 mcg/actuati on inhaler 2020-0 - 00:00: 00 Yes [facility] SYMBICORT 160-4.5 mcg/actuati on inhaler 2020-0 02-02 00:00: 00 Yes [facility] PROAIR HFA 90 mcg/actuati on inhaler 2020-0 - 00:00: 00 Yes [facility] SYMBICORT 160-4.5 mcg/actuati on inhaler 2020-0 - 00:00: 00 Yes [facility] PROAIR HFA 90 mcg/actuati on inhaler 2020-0 02-02 00:00: 00 Yes [facility] SYMBICORT 160-4.5 mcg/actuati on inhaler 2020-0 02-02 00:00: 00 Yes [facility] PROAIR HFA 90 mcg/actuati on inhaler 2020-0 - 00:00: 00 Yes [facility] SYMBICORT 160-4.5 mcg/actuati on inhaler 2020-0 - 00:00: 00 Yes [facility] PROAIR HFA 90 mcg/actuati on inhaler 2020-0 4- 00:00: 00 Yes [facility] PROAIR HFA 90 mcg/actuati on inhaler 2020-0 4- 00:00: 00 Yes [facility] PROAIR HFA 90 mcg/actuati on inhaler 2020-0 4- 00:00: 00 Yes [facility] PROAIR HFA 90 mcg/actuati on inhaler 2020-0 4-09 00:00: 00 Yes [facility] SYMBICORT 160-4.5 mcg/actuati on inhaler 2020-0 4- 00:00: 00 10-01 00:00 :00 No [facility] SYMBICORT 160-4.5 mcg/actuati on inhaler 2019-0 - 00:00: 00 10-01 00:00 :00 No [facility] azithromyci n 250 mg tablet 2020-0 - 00:00: 00 06-05 00:00 :00 No [facility] azithromyci n 250 mg tablet 2020-0 02-02 00:00: 00 06-05 00:00 :00 No [facility] azithromyci n 250 mg tablet 2019-0 02-02 00:00: 00 06-05 00:00 :00 No [facility] amoxicillin -clavulanat e 875-125 mg per tablet 2020-0 2-10 00:00: 00 Yes TK 1 T PO BID [facility] amoxicillin -clavulanat e 875-125 mg per tablet 2020-0 2-10 00:00: 00 Yes TK 1 T PO BID [facility] amoxicillin -clavulanat e 875-125 mg per tablet 2020-0 2-10 00:00: 00 Yes TK 1 T PO BID [facility] amoxicillin -clavulanat e 875-125 mg per tablet 2020-0 2-10 00:00: 00 Yes TK 1 T PO BID [facility] amoxicillin -clavulanat e 875-125 mg per tablet 2020-0 2-10 00:00: 00 Yes TK 1 T PO BID [facility] amoxicillin -clavulanat e 875-125 mg per tablet 2020-0 2-10 00:00: 00 Yes TK 1 T PO BID [facility] amoxicillin -clavulanat e 875-125 mg per tablet 2020-0 2-10 00:00: 00 Yes TK 1 T PO BID [facility] amoxicillin -clavulanat e 875-125 mg per tablet 2020-0 2-10 00:00: 00 Yes TK 1 T PO BID [facility] amoxicillin -clavulanat e 875-125 mg per tablet 2020-0 2-10 00:00: 00 Yes TK 1 T PO BID [facility] amoxicillin -clavulanat e 875-125 mg per tablet 2020-0 2-10 00:00: 00 Yes TK 1 T PO BID [facility] amoxicillin -clavulanat e 875-125 mg per tablet 2020-0 2-10 00:00: 00 Yes TK 1 T PO BID [facility] amoxicillin -clavulanat e 875-125 mg per tablet 2020-0 2-10 00:00: 00 Yes TK 1 T PO BID [facility] amoxicillin -clavulanat e 875-125 mg per tablet 2020-0 2-10 00:00: 00 Yes TK 1 T PO BID [facility] amoxicillin -clavulanat e 875-125 mg per tablet 2020-0 2-10 00:00: 00 Yes TK 1 T PO BID [facility] amoxicillin -clavulanat e 875-125 mg per tablet 2020-0 2-10 00:00: 00 Yes TK 1 T PO BID [facility] amoxicillin -clavulanat e 875-125 mg per tablet 2020-0 2-10 00:00: 00 Yes TK 1 T PO BID [facility] amoxicillin -clavulanat e 875-125 mg per tablet 2020-0 2-10 00:00: 00 Yes TK 1 T PO BID [facility] amoxicillin -clavulanat e 875-125 mg per tablet 2020-0 2-10 00:00: 00 Yes TK 1 T PO BID [facility] amoxicillin -clavulanat e 875-125 mg per tablet 2020-0 2-10 00:00: 00 Yes TK 1 T PO BID [facility] amoxicillin -clavulanat e 875-125 mg per tablet 2020-0 2-10 00:00: 00 Yes TK 1 T PO BID [facility] amoxicillin -clavulanat e 875-125 mg per tablet 2020-0 2-10 00:00: 00 Yes TK 1 T PO BID [facility] amoxicillin -clavulanat e 875-125 mg per tablet 2020-0 2-10 00:00: 00 Yes TK 1 T PO BID [facility] amoxicillin -clavulanat e 875-125 mg per tablet 2020-0 2-10 00:00: 00 Yes TK 1 T PO BID [facility] amoxicillin -clavulanat e 875-125 mg per tablet 2020-0 2-10 00:00: 00 Yes TK 1 T PO BID [facility] amoxicillin -clavulanat e 875-125 mg per tablet 2020-0 2-10 00:00: 00 Yes TK 1 T PO BID [facility] amoxicillin -clavulanat e 875-125 mg per tablet 2020-0 2-10 00:00: 00 Yes TK 1 T PO BID [facility] amoxicillin -clavulanat e 875-125 mg per tablet 2020-0 2-10 00:00: 00 Yes TK 1 T PO BID [facility] amoxicillin -clavulanat e 875-125 mg per tablet 2020-0 2-10 00:00: 00 Yes TK 1 T PO BID [facility] amoxicillin -clavulanat e 875-125 mg per tablet 2020-0 2-10 00:00: 00 Yes TK 1 T PO BID [facility] amoxicillin -clavulanat e 875-125 mg per tablet 2020-0 2-10 00:00: 00 Yes TK 1 T PO BID [facility] amoxicillin -clavulanat e 875-125 mg per tablet 2020-0 2-10 00:00: 00 Yes TK 1 T PO BID [facility] amoxicillin -clavulanat e 875-125 mg per tablet 2020-0 2-10 00:00: 00 Yes TK 1 T PO BID [facility] amoxicillin -clavulanat e 875-125 mg per tablet 2020-0 2-10 00:00: 00 Yes TK 1 T PO BID [facility] amoxicillin -clavulanat e 875-125 mg per tablet 2020-0 2-10 00:00: 00 Yes TK 1 T PO BID [facility] amoxicillin -clavulanat e 875-125 mg per tablet 2020-0 2-10 00:00: 00 Yes TK 1 T PO BID [facility] amoxicillin -clavulanat e 875-125 mg per tablet 2020-0 2-10 00:00: 00 Yes TK 1 T PO BID [facility] amoxicillin -clavulanat e 875-125 mg per tablet 2020-0 2-10 00:00: 00 Yes TK 1 T PO BID [facility] amoxicillin -clavulanat e 875-125 mg per tablet 2020-0 2-10 00:00: 00 Yes TK 1 T PO BID [facility] amoxicillin -clavulanat e 875-125 mg per tablet 2020-0 2-10 00:00: 00 Yes TK 1 T PO BID [facility] amoxicillin -clavulanat e 875-125 mg per tablet 2020-0 2-10 00:00: 00 Yes TK 1 T PO BID [facility] amoxicillin -clavulanat e 875-125 mg per tablet 2020-0 2-10 00:00: 00 10-01 00:00 :00 No TK 1 T PO BID [facility] amoxicillin -clavulanat e 875-125 mg per tablet 2020-0 2-10 00:00: 00 10-01 00:00 :00 No TK 1 T PO BID [facility] norethindro ne-ethinyl estradiol 1-20 mg-mcg per tablet 2020-0 1-30 00:00: 00 Yes [facility] norethindro ne-ethinyl estradiol 1-20 mg-mcg per tablet 2020-0 1-30 00:00: 00 Yes [facility] norethindro ne-ethinyl estradiol 1-20 mg-mcg per tablet 2020-0 1-30 00:00: 00 Yes [facility] norethindro ne-ethinyl estradiol 1-20 mg-mcg per tablet 2019-0 1-30 00:00: 00 Yes [facility] norethindro ne-ethinyl estradiol 1-20 mg-mcg per tablet 2020-0 1-30 00:00: 00 Yes [facility] norethindro ne-ethinyl estradiol 1-20 mg-mcg per tablet 2020-0 30 00:00: 00 Yes [facility] norethindro ne-ethinyl estradiol 1-20 mg-mcg per tablet 2020-0 11-25 00:00: 00 Yes [facility] norethindro ne-ethinyl estradiol 1-20 mg-mcg per tablet 2019-0 11-25 00:00: 00 Yes [facility] norethindro ne-ethinyl estradiol 1-20 mg-mcg per tablet 2019-0 11-25 00:00: 00 Yes [facility] norethindro ne-ethinyl estradiol 1-20 mg-mcg per tablet 2019-0 11-25 00:00: 00 Yes [facility] norethindro ne-ethinyl estradiol 1-20 mg-mcg per tablet 2019-0 11-25 00:00: 00 Yes [facility] norethindro ne-ethinyl estradiol 1-20 mg-mcg per tablet 2019-0 11-25 00:00: 00 Yes [facility] norethindro ne-ethinyl estradiol 1-20 mg-mcg per tablet 2019-0 11-25 00:00: 00 Yes [facility] norethindro ne-ethinyl estradiol 1-20 mg-mcg per tablet 2019-0 11-25 00:00: 00 Yes [facility] norethindro ne-ethinyl estradiol 1-20 mg-mcg per tablet 2019-0 11-25 00:00: 00 Yes [facility] norethindro ne-ethinyl estradiol 1-20 mg-mcg per tablet 2019-0 11-25 00:00: 00 Yes [facility] norethindro ne-ethinyl estradiol 1-20 mg-mcg per tablet 2019-0 11-25 00:00: 00 Yes [facility] norethindro ne-ethinyl estradiol 1-20 mg-mcg per tablet 2019-0 11-25 00:00: 00 Yes [facility] norethindro ne-ethinyl estradiol 1-20 mg-mcg per tablet 2020-0 1-30 00:00: 00 Yes [facility] norethindro ne-ethinyl estradiol 1-20 mg-mcg per tablet 2019-0 11-25 00:00: 00 Yes [facility] norethindro ne-ethinyl estradiol 1-20 mg-mcg per tablet 2019-0 11-25 00:00: 00 Yes [facility] norethindro ne-ethinyl estradiol 1-20 mg-mcg per tablet 2019-0 11-25 00:00: 00 Yes [facility] norethindro ne-ethinyl estradiol 1-20 mg-mcg per tablet 2019-0 11-25 00:00: 00 Yes [facility] norethindro ne-ethinyl estradiol 1-20 mg-mcg per tablet 2019-0 11-25 00:00: 00 Yes [facility] norethindro ne-ethinyl estradiol 1-20 mg-mcg per tablet 2019-0 11-25 00:00: 00 Yes [facility] norethindro ne-ethinyl estradiol 1-20 mg-mcg per tablet 0 11-25 00:00: 00 Yes [facility] norethindro ne-ethinyl estradiol 1-20 mg-mcg per tablet 0 11-25 00:00: 00 Yes [facility] norethindro ne-ethinyl estradiol 1-20 mg-mcg per tablet 0 11-25 00:00: 00 Yes [facility] [facility] norethindro ne-ethinyl estradiol 1-20 mg-mcg per tablet 0 11-25 00:00: 00 Yes [facility] norethindro ne-ethinyl estradiol 1-20 mg-mcg per tablet 2019-0 11-25 00:00: 00 Yes [facility] norethindro ne-ethinyl estradiol 1-20 mg-mcg per tablet 0 11-25 00:00: 00 Yes [facility] norethindro ne-ethinyl estradiol 1-20 mg-mcg per tablet 2019-0 11-25 00:00: 00 Yes [facility] norethindro ne-ethinyl estradiol 1-20 mg-mcg per tablet 2020-0 30 00:00: 00 Yes [facility] norethindro ne-ethinyl estradiol 1-20 mg-mcg per tablet 2019-0 11-25 00:00: 00 Yes [facility] norethindro ne-ethinyl estradiol 1-20 mg-mcg per tablet 2019-0 11-25 00:00: 00 Yes [facility] norethindro ne-ethinyl estradiol 1-20 mg-mcg per tablet 2019-0 11-25 00:00: 00 Yes [facility] norethindro ne-ethinyl estradiol 1-20 mg-mcg per tablet 2019-0 11-25 00:00: 00 Yes [facility] norethindro ne-ethinyl estradiol 1-20 mg-mcg per tablet 2019-0 11-25 00:00: 00 Yes [facility] norethindro ne-ethinyl estradiol 1-20 mg-mcg per tablet 2019-0 11-25 00:00: 00 Yes [facility] norethindro ne-ethinyl estradiol 1-20 mg-mcg per tablet 2019-0 11-25 00:00: 00 Yes [facility] norethindro ne-ethinyl estradiol 1-20 mg-mcg per tablet 2019-0 11-25 00:00: 00 Yes [facility] norethindro ne-ethinyl estradiol 1-20 mg-mcg per tablet 2019-0 11-25 00:00: 00 Yes [facility] norethindro ne-ethinyl estradiol 1-20 mg-mcg per tablet 2019-0 11-25 00:00: 00 Yes [facility] norethindro ne-ethinyl estradiol 1-20 mg-mcg per tablet 2019-0 11-25 00:00: 00 Yes [facility] norethindro ne-ethinyl estradiol 1-20 mg-mcg per tablet 2019-0 11-25 00:00: 00 Yes [facility] norethindro ne-ethinyl estradiol 1-20 mg-mcg per tablet 2019-0 30 00:00: 00 Yes [facility] norethindro ne-ethinyl estradiol 1-20 mg-mcg per tablet 2020-0 130 00:00: 00 07-17 00:00 :00 No [facility] norethindro ne-ethinyl estradiol 1-20 mg-mcg per tablet 2020-0 30 00:00: 00 07-17 00:00 :00 No [facility] [address] 1.5 mg tablet 2020-0 1-20 00:00: 00 Yes [facility] [address] 1.5 mg tablet 2020-0 1-20 00:00: 00 Yes [facility] [address] 1.5 mg tablet 2020-0 1-20 00:00: 00 Yes [facility] [address] 1.5 mg tablet 2020-0 1-20 00:00: 00 Yes [facility] [address] 1.5 mg tablet 2020-0 1-20 00:00: 00 Yes [facility] [address] 1.5 mg tablet 2020-0 1-20 00:00: 00 Yes [facility] [address] 1.5 mg tablet 2020-0 1-20 00:00: 00 Yes [facility] [address] 1.5 mg tablet 2020-0 1-20 00:00: 00 Yes [facility] [address] 1.5 mg tablet 2020-0 1-20 00:00: 00 Yes [facility] [address] 1.5 mg tablet 2020-0 1-20 00:00: 00 Yes [facility] [address] 1.5 mg tablet 2020-0 1-20 00:00: 00 Yes [facility] [address] 1.5 mg tablet 2020-0 1-20 00:00: 00 Yes [facility] [address] 1.5 mg tablet 2020-0 1-20 00:00: 00 Yes [facility] [address] 1.5 mg tablet 2020-0 1-20 00:00: 00 Yes [facility] [address] 1.5 mg tablet [...] 07-17 00:00 :00 No [facility] escitalopra m oxalate 20 mg tablet 2020-0 1-10 00:00: 00 Yes TK 1 T PO QD [facility] escitalopra m oxalate 20 mg tablet 2020-0 1-10 00:00: 00 Yes TK 1 T PO QD [facility] escitalopra m oxalate 20 mg tablet 2020-0 1-10 00:00: 00 Yes TK 1 T PO QD [facility] escitalopra m oxalate 20 mg tablet 2020-0 1-10 00:00: 00 Yes TK 1 T PO QD [facility] escitalopra m oxalate 20 mg tablet 2020-0 1-10 00:00: 00 Yes TK 1 T PO QD [facility] escitalopra m oxalate 20 mg tablet 2020-0 1-10 00:00: 00 Yes TK 1 T PO QD [facility] escitalopra m oxalate 20 mg tablet 2020-0 1-10 00:00: 00 Yes TK 1 T PO QD [facility] escitalopra m oxalate 20 mg tablet 2020-0 1-10 00:00: 00 Yes TK 1 T PO QD [facility] escitalopra m oxalate 20 mg tablet 2020-0 1-10 00:00: 00 Yes TK 1 T PO QD [facility] escitalopra m oxalate 20 mg tablet 2020-0 1-10 00:00: 00 Yes TK 1 T PO QD [facility] escitalopra m oxalate 20 mg tablet 2020-0 1-10 00:00: 00 Yes TK 1 T PO QD [facility] escitalopra m oxalate 20 mg tablet 2020-0 1-10 00:00: 00 Yes TK 1 T PO QD [facility] escitalopra m oxalate 20 mg tablet 2020-0 1-10 00:00: 00 Yes TK 1 T PO QD [facility] escitalopra m oxalate 20 mg tablet 2020-0 1-10 00:00: 00 Yes TK 1 T PO QD [facility] escitalopra m oxalate 20 mg tablet 2020-0 1-10 00:00: 00 Yes TK 1 T PO QD [facility] escitalopra m oxalate 20 mg tablet 2020-0 1-10 00:00: 00 Yes TK 1 T PO QD [facility] escitalopra m oxalate 20 mg tablet 2020-0 1-10 00:00: 00 Yes TK 1 T PO QD [facility] escitalopra m oxalate 20 mg tablet 2020-0 1-10 00:00: 00 Yes TK 1 T PO QD [facility] escitalopra m oxalate 20 mg tablet 2020-0 1-10 00:00: 00 Yes TK 1 T PO QD [facility] escitalopra m oxalate 20 mg tablet 2020-0 1-10 00:00: 00 Yes TK 1 T PO QD [facility] escitalopra m oxalate 20 mg tablet 2020-0 1-10 00:00: 00 Yes TK 1 T PO QD [facility] escitalopra m oxalate 20 mg tablet 2020-0 1-10 00:00: 00 Yes TK 1 T PO QD [facility] escitalopra m oxalate 20 mg tablet 2020-0 1-10 00:00: 00 Yes TK 1 T PO QD [facility] escitalopra m oxalate 20 mg tablet 2020-0 1-10 00:00: 00 Yes TK 1 T PO QD [facility] escitalopra m oxalate 20 mg tablet 2020-0 1-10 00:00: 00 Yes TK 1 T PO QD [facility] escitalopra m oxalate 20 mg tablet 2020-0 1-10 00:00: 00 Yes TK 1 T PO QD [facility] escitalopra m oxalate 20 mg tablet 2020-0 1-10 00:00: 00 Yes TK 1 T PO QD [facility] escitalopra m oxalate 20 mg tablet 2020-0 1-10 00:00: 00 Yes TK 1 T PO QD [facility] escitalopra m oxalate 20 mg tablet 2020-0 1-10 00:00: 00 Yes TK 1 T PO QD [facility] escitalopra m oxalate 20 mg tablet 2020-0 1-10 00:00: 00 Yes TK 1 T PO QD [facility] escitalopra m oxalate 20 mg tablet 2020-0 1-10 00:00: 00 Yes TK 1 T PO QD [facility] escitalopra m oxalate 20 mg tablet 2020-0 1-10 00:00: 00 Yes TK 1 T PO QD [facility] escitalopra m oxalate 20 mg tablet 2020-0 1-10 00:00: 00 Yes TK 1 T PO QD [facility] escitalopra m oxalate 20 mg tablet 2020-0 1-10 00:00: 00 Yes TK 1 T PO QD [facility] escitalopra m oxalate 20 mg tablet 2020-0 1-10 00:00: 00 Yes TK 1 T PO QD [facility] escitalopra m oxalate 20 mg tablet 2020-0 1-10 00:00: 00 Yes TK 1 T PO QD [facility] escitalopra m oxalate 20 mg tablet 2020-0 1-10 00:00: 00 Yes TK 1 T PO QD [facility] escitalopra m oxalate 20 mg tablet 2020-0 1-10 00:00: 00 Yes TK 1 T PO QD [facility] escitalopra m oxalate 20 mg tablet 2020-0 1-10 00:00: 00 Yes TK 1 T PO QD [facility] escitalopra m oxalate 20 mg tablet 2020-0 1-10 00:00: 00 Yes TK 1 T PO QD [facility] escitalopra m oxalate 20 mg tablet 2020-0 1-10 00:00: 00 Yes TK 1 T PO QD [facility] escitalopra m oxalate 20 mg tablet 2020-0 1-10 00:00: 00 Yes TK 1 T PO QD [facility] escitalopra m oxalate 20 mg tablet 2020-0 1-10 00:00: 00 Yes TK 1 T PO QD [facility] escitalopra m oxalate 20 mg tablet 2020-0 1-10 00:00: 00 Yes TK 1 T PO QD [facility] escitalopra m oxalate 20 mg tablet 2020-0 1-10 00:00: 00 Yes TK 1 T PO QD [facility] escitalopra m oxalate 20 mg tablet 2020-0 1-10 00:00: 00 Yes TK 1 T PO QD [facility] escitalopra m oxalate 20 mg tablet 2020-0 1-10 00:00: 00 Yes TK 1 T PO QD [facility] escitalopra m oxalate 20 mg tablet 2020-0 1-10 00:00: 00 Yes TK 1 T PO QD [facility] escitalopra m oxalate 20 mg tablet 2020-0 1-10 00:00: 00 Yes TK 1 T PO QD [facility] escitalopra m oxalate 20 mg tablet 2020-0 1-10 00:00: 00 Yes TK 1 T PO QD [facility] escitalopra m oxalate 20 mg tablet 2020-0 1-10 00:00: 00 Yes TK 1 T PO QD [facility] escitalopra m oxalate 20 mg tablet 2020-0 1-10 00:00: 00 Yes TK 1 T PO QD [facility] escitalopra m oxalate 20 mg tablet 2020-0 1-10 00:00: 00 Yes TK 1 T PO QD [facility] escitalopra m oxalate 20 mg tablet 2020-0 1-10 00:00: 00 Yes TK 1 T PO QD [facility] escitalopra m oxalate 20 mg tablet 2020-0 1-10 00:00: 00 Yes TK 1 T PO QD [facility] escitalopra m oxalate 20 mg tablet 2020-0 1-10 00:00: 00 Yes TK 1 T PO QD [facility] escitalopra m oxalate 20 mg tablet 2020-0 1-10 00:00: 00 Yes TK 1 T PO QD [facility] escitalopra m oxalate 20 mg tablet 2020-0 1-10 00:00: 00 Yes TK 1 T PO QD [facility] escitalopra m oxalate 20 mg tablet 2020-0 1-10 00:00: 00 Yes TK 1 T PO QD [facility] escitalopra m oxalate 20 mg tablet 2020-0 1-10 00:00: 00 Yes TK 1 T PO QD [facility] escitalopra m oxalate 20 mg tablet 2020-0 1-10 00:00: 00 Yes TK 1 T PO QD [facility] escitalopra m oxalate 20 mg tablet 2020-0 1-10 00:00: 00 Yes TK 1 T PO QD [facility] escitalopra m oxalate 20 mg tablet 2020-0 1-10 00:00: 00 Yes TK 1 T PO QD [facility] escitalopra m oxalate 20 mg tablet 2020-0 1-10 00:00: 00 Yes TK 1 T PO QD [facility] escitalopra m oxalate 20 mg tablet 2020-0 1-10 00:00: 00 Yes TK 1 T PO QD [facility] escitalopra m oxalate 20 mg tablet 2020-0 1-10 00:00: 00 Yes TK 1 T PO QD [facility] escitalopra m oxalate 20 mg tablet 2020-0 1-10 00:00: 00 Yes TK 1 T PO QD [facility] escitalopra m oxalate 20 mg tablet 2020-0 1-10 00:00: 00 Yes TK 1 T PO QD [facility] escitalopra m oxalate 20 mg tablet 2020-0 1-10 00:00: 00 Yes TK 1 T PO QD [facility] escitalopra m oxalate 20 mg tablet 2020-0 1-10 00:00: 00 Yes TK 1 T PO QD [facility] escitalopra m oxalate 20 mg tablet 2020-0 1-10 00:00: 00 Yes TK 1 T PO QD [facility] escitalopra m oxalate 20 mg tablet 2020-0 1-10 00:00: 00 Yes TK 1 T PO QD [facility] escitalopra m oxalate 20 mg tablet 2020-0 1-10 00:00: 00 Yes TK 1 T PO QD [facility] escitalopra m oxalate 20 mg tablet 2020-0 1-10 00:00: 00 Yes TK 1 T PO QD [facility] escitalopra m oxalate 20 mg tablet 2020-0 1-10 00:00: 00 Yes TK 1 T PO QD [facility] escitalopra m oxalate 20 mg tablet 2020-0 1-10 00:00: 00 Yes TK 1 T PO QD [facility] escitalopra m oxalate 20 mg tablet 2020-0 1-10 00:00: 00 Yes TK 1 T PO QD [facility] escitalopra m oxalate 20 mg tablet 2020-0 1-10 00:00: 00 Yes TK 1 T PO QD [facility] escitalopra m oxalate 20 mg tablet 2020-0 1-10 00:00: 00 Yes TK 1 T PO QD [facility] traZODONE 50 mg tablet 2019-0 5-09 00:00: 00 Yes TAKE 1 TABLET BY MOUTH EVERYDAY AT BEDTIME [facility] escitalopra m oxalate 10 mg tablet 0 03-04 00:00: 00 Yes TAKE 1 TABLET BY MOUTH EVERY MORNING [facility] traZODONE 50 mg tablet 0 03-04 00:00: 00 Yes TAKE 1 TABLET BY MOUTH EVERYDAY AT BEDTIME [facility] escitalopra m oxalate 10 mg tablet 0 03-04 00:00: 00 Yes TAKE 1 TABLET BY MOUTH EVERY MORNING [facility] traZODONE 50 mg tablet 0 03-04 00:00: 00 Yes TAKE 1 TABLET BY MOUTH EVERYDAY AT BEDTIME [facility] traZODONE 50 mg tablet 0 03-04 00:00: 00 Yes TAKE 1 TABLET BY MOUTH EVERYDAY AT BEDTIME [facility] escitalopra m oxalate 10 mg tablet 03-04 00:00: 00 Yes TAKE 1 TABLET BY MOUTH EVERY MORNING [facility] traZODONE 50 mg tablet 0 03-04 00:00: 00 Yes TAKE 1 TABLET BY MOUTH EVERYDAY AT BEDTIME [facility] traZODONE 50 mg tablet 0 03-04 00:00: 00 Yes TAKE 1 TABLET BY MOUTH EVERYDAY AT BEDTIME [facility] traZODONE 50 mg tablet 0 03-04 00:00: 00 Yes TAKE 1 TABLET BY MOUTH EVERYDAY AT BEDTIME [facility] traZODONE 50 mg tablet 0 03-04 00:00: 00 Yes TAKE 1 TABLET BY MOUTH EVERYDAY AT BEDTIME [facility] traZODONE 50 mg tablet 0 03-04 00:00: 00 Yes TAKE 1 TABLET BY MOUTH EVERYDAY AT BEDTIME [facility] traZODONE 50 mg tablet 0 03-04 00:00: 00 Yes TAKE 1 TABLET BY MOUTH EVERYDAY AT BEDTIME [facility] traZODONE 50 mg tablet 0 03-04 00:00: 00 Yes TAKE 1 TABLET BY MOUTH EVERYDAY AT BEDTIME [facility] traZODONE 50 mg tablet 0 03-04 00:00: 00 Yes TAKE 1 TABLET BY MOUTH EVERYDAY AT BEDTIME [facility] escitalopra m oxalate 10 mg tablet 03-04 00:00: 00 Yes TAKE 1 TABLET BY MOUTH EVERY MORNING [facility] traZODONE 50 mg tablet 03-04 00:00: 00 Yes TAKE 1 TABLET BY MOUTH EVERYDAY AT BEDTIME [facility] traZODONE 50 mg tablet 03-04 00:00: 00 Yes TAKE 1 TABLET BY MOUTH EVERYDAY AT BEDTIME [facility] traZODONE 50 mg tablet 0 03-04 00:00: 00 Yes TAKE 1 TABLET BY MOUTH EVERYDAY AT BEDTIME [facility] traZODONE 50 mg tablet 03-04 00:00: 00 Yes TAKE 1 TABLET BY MOUTH EVERYDAY AT BEDTIME [facility] traZODONE 50 mg tablet 03-04 00:00: 00 Yes TAKE 1 TABLET BY MOUTH EVERYDAY AT BEDTIME [facility] traZODONE 50 mg tablet 03-04 00:00: 00 Yes TAKE 1 TABLET BY MOUTH EVERYDAY AT BEDTIME [facility] traZODONE 50 mg tablet 03-04 00:00: 00 Yes TAKE 1 TABLET BY MOUTH EVERYDAY AT BEDTIME [facility] traZODONE 50 mg tablet 03-04 00:00: 00 Yes TAKE 1 TABLET BY MOUTH EVERYDAY AT BEDTIME [facility] escitalopra m oxalate 10 mg tablet 03-04 00:00: 00 Yes TAKE 1 TABLET BY MOUTH EVERY MORNING [facility] traZODONE 50 mg tablet 0 03-04 00:00: 00 Yes TAKE 1 TABLET BY MOUTH EVERYDAY AT BEDTIME [facility] traZODONE 50 mg tablet 0 03-04 00:00: 00 Yes TAKE 1 TABLET BY MOUTH EVERYDAY AT BEDTIME [facility] traZODONE 50 mg tablet 0 03-04 00:00: 00 Yes TAKE 1 TABLET BY MOUTH EVERYDAY AT BEDTIME [facility] traZODONE 50 mg tablet 0 03-04 00:00: 00 Yes TAKE 1 TABLET BY MOUTH EVERYDAY AT BEDTIME [facility] traZODONE 50 mg tablet 0 03-04 00:00: 00 Yes TAKE 1 TABLET BY MOUTH EVERYDAY AT BEDTIME [facility] traZODONE 50 mg tablet 0 03-04 00:00: 00 Yes TAKE 1 TABLET BY MOUTH EVERYDAY AT BEDTIME [facility] traZODONE 50 mg tablet 0 03-04 00:00: 00 Yes TAKE 1 TABLET BY MOUTH EVERYDAY AT BEDTIME [facility] escitalopra m oxalate 10 mg tablet 0 03-04 00:00: 00 Yes TAKE 1 TABLET BY MOUTH EVERY MORNING [facility] traZODONE 50 mg tablet 0 03-04 00:00: 00 Yes TAKE 1 TABLET BY MOUTH EVERYDAY AT BEDTIME [facility] traZODONE 50 mg tablet 0 03-04 00:00: 00 Yes TAKE 1 TABLET BY MOUTH EVERYDAY AT BEDTIME [facility] traZODONE 50 mg tablet 0 03-04 00:00: 00 Yes TAKE 1 TABLET BY MOUTH EVERYDAY AT BEDTIME [facility] traZODONE 50 mg tablet 0 03-04 00:00: 00 Yes TAKE 1 TABLET BY MOUTH EVERYDAY AT BEDTIME [facility] traZODONE 50 mg tablet 0 03-04 00:00: 00 Yes TAKE 1 TABLET BY MOUTH EVERYDAY AT BEDTIME [facility] traZODONE 50 mg tablet 0 03-04 00:00: 00 Yes TAKE 1 TABLET BY MOUTH EVERYDAY AT BEDTIME [facility] traZODONE 50 mg tablet 0 03-04 00:00: 00 Yes TAKE 1 TABLET BY MOUTH EVERYDAY AT BEDTIME [facility] traZODONE 50 mg tablet 0 03-04 00:00: 00 Yes TAKE 1 TABLET BY MOUTH EVERYDAY AT BEDTIME [facility] traZODONE 50 mg tablet 0 03-04 00:00: 00 Yes TAKE 1 TABLET BY MOUTH EVERYDAY AT BEDTIME [facility] traZODONE 50 mg tablet 0 03-04 00:00: 00 Yes TAKE 1 TABLET BY MOUTH EVERYDAY AT BEDTIME [facility] traZODONE 50 mg tablet 03-04 00:00: 00 Yes TAKE 1 TABLET BY MOUTH EVERYDAY AT BEDTIME [facility] traZODONE 50 mg tablet 0 03-04 00:00: 00 Yes TAKE 1 TABLET BY MOUTH EVERYDAY AT BEDTIME [facility] traZODONE 50 mg tablet 03-04 00:00: 00 Yes TAKE 1 TABLET BY MOUTH EVERYDAY AT BEDTIME [facility] escitalopra m oxalate 10 mg tablet 03-04 00:00: 00 Yes TAKE 1 TABLET BY MOUTH EVERY MORNING [facility] traZODONE 50 mg tablet 03-04 00:00: 00 Yes TAKE 1 TABLET BY MOUTH EVERYDAY AT BEDTIME [facility] traZODONE 50 mg tablet 03-04 00:00: 00 Yes TAKE 1 TABLET BY MOUTH EVERYDAY AT BEDTIME [facility] escitalopra m oxalate 10 mg tablet 03-04 00:00: 00 Yes TAKE 1 TABLET BY MOUTH EVERY MORNING [facility] escitalopra m oxalate 10 mg tablet 03-04 00:00: 00 Yes TAKE 1 TABLET BY MOUTH EVERY MORNING [facility] traZODONE 50 mg tablet 03-04 00:00: 00 Yes TAKE 1 TABLET BY MOUTH EVERYDAY AT BEDTIME [facility] escitalopra m oxalate 10 mg tablet 03-04 00:00: 00 Yes TAKE 1 TABLET BY MOUTH EVERY MORNING [facility] traZODONE 50 mg tablet 03-04 00:00: 00 Yes TAKE 1 TABLET BY MOUTH EVERYDAY AT BEDTIME [facility] escitalopra m oxalate 10 mg tablet 03-04 00:00: 00 Yes TAKE 1 TABLET BY MOUTH EVERY MORNING [facility] traZODONE 50 mg tablet 03-04 00:00: 00 Yes TAKE 1 TABLET BY MOUTH EVERYDAY AT BEDTIME [facility] escitalopra m oxalate 10 mg tablet 03-04 00:00: 00 Yes TAKE 1 TABLET BY MOUTH EVERY MORNING [facility] traZODONE 50 mg tablet 0 03-04 00:00: 00 Yes TAKE 1 TABLET BY MOUTH EVERYDAY AT BEDTIME [facility] traZODONE 50 mg tablet 0 03-04 00:00: 00 Yes TAKE 1 TABLET BY MOUTH EVERYDAY AT BEDTIME [facility] escitalopra m oxalate 10 mg tablet 03-04 00:00: 00 Yes TAKE 1 TABLET BY MOUTH EVERY MORNING [facility] escitalopra m oxalate 10 mg tablet 03-04 00:00: 00 Yes TAKE 1 TABLET BY MOUTH EVERY MORNING [facility] traZODONE 50 mg tablet 0 03-04 00:00: 00 Yes TAKE 1 TABLET BY MOUTH EVERYDAY AT BEDTIME [facility] escitalopra m oxalate 10 mg tablet 03-04 00:00: 00 Yes TAKE 1 TABLET BY MOUTH EVERY MORNING [facility] traZODONE 50 mg tablet 03-04 00:00: 00 Yes TAKE 1 TABLET BY MOUTH EVERYDAY AT BEDTIME [facility] escitalopra m oxalate 10 mg tablet 03-04 00:00: 00 Yes TAKE 1 TABLET BY MOUTH EVERY MORNING [facility] traZODONE 50 mg tablet 03-04 00:00: 00 Yes TAKE 1 TABLET BY MOUTH EVERYDAY AT BEDTIME [facility] escitalopra m oxalate 10 mg tablet 03-04 00:00: 00 Yes TAKE 1 TABLET BY MOUTH EVERY MORNING [facility] traZODONE 50 mg tablet 03-04 00:00: 00 Yes TAKE 1 TABLET BY MOUTH EVERYDAY AT BEDTIME [facility] escitalopra m oxalate 10 mg tablet 0 03-04 00:00: 00 Yes TAKE 1 TABLET BY MOUTH EVERY MORNING [facility] traZODONE 50 mg tablet 03-04 00:00: 00 Yes TAKE 1 TABLET BY MOUTH EVERYDAY AT BEDTIME [facility] traZODONE 50 mg tablet 0 03-04 00:00: 00 Yes TAKE 1 TABLET BY MOUTH EVERYDAY AT BEDTIME [facility] escitalopra m oxalate 10 mg tablet 0 03-04 00:00: 00 Yes TAKE 1 TABLET BY MOUTH EVERY MORNING [facility] escitalopra m oxalate 10 mg tablet 03-04 00:00: 00 Yes TAKE 1 TABLET BY MOUTH EVERY MORNING [facility] traZODONE 50 mg tablet 03-04 00:00: 00 Yes TAKE 1 TABLET BY MOUTH EVERYDAY AT BEDTIME [facility] escitalopra m oxalate 10 mg tablet 03-04 00:00: 00 Yes TAKE 1 TABLET BY MOUTH EVERY MORNING [facility] traZODONE 50 mg tablet 03-04 00:00: 00 Yes TAKE 1 TABLET BY MOUTH EVERYDAY AT BEDTIME [facility] escitalopra m oxalate 10 mg tablet 03-04 00:00: 00 Yes TAKE 1 TABLET BY MOUTH EVERY MORNING [facility] traZODONE 50 mg tablet 03-04 00:00: 00 Yes TAKE 1 TABLET BY MOUTH EVERYDAY AT BEDTIME [facility] escitalopra m oxalate 10 mg tablet 03-04 00:00: 00 Yes TAKE 1 TABLET BY MOUTH EVERY MORNING [facility] traZODONE 50 mg tablet 03-04 00:00: 00 Yes TAKE 1 TABLET BY MOUTH EVERYDAY AT BEDTIME [facility] escitalopra m oxalate 10 mg tablet 03-04 00:00: 00 Yes TAKE 1 TABLET BY MOUTH EVERY MORNING [facility] traZODONE 50 mg tablet 03-04 00:00: 00 Yes TAKE 1 TABLET BY MOUTH EVERYDAY AT BEDTIME [facility] escitalopra m oxalate 10 mg tablet 0 03-04 00:00: 00 Yes TAKE 1 TABLET BY MOUTH EVERY MORNING [facility] traZODONE 50 mg tablet 03-04 00:00: 00 Yes TAKE 1 TABLET BY MOUTH EVERYDAY AT BEDTIME [facility] escitalopra m oxalate 10 mg tablet 0 03-04 00:00: 00 Yes TAKE 1 TABLET BY MOUTH EVERY MORNING [facility] traZODONE 50 mg tablet 0 03-04 00:00: 00 Yes TAKE 1 TABLET BY MOUTH EVERYDAY AT BEDTIME [facility] escitalopra m oxalate 10 mg tablet 03-04 00:00: 00 Yes TAKE 1 TABLET BY MOUTH EVERY MORNING [facility] traZODONE 50 mg tablet 0 03-04 00:00: 00 Yes TAKE 1 TABLET BY MOUTH EVERYDAY AT BEDTIME [facility] escitalopra m oxalate 10 mg tablet 03-04 00:00: 00 Yes TAKE 1 TABLET BY MOUTH EVERY MORNING [facility] traZODONE 50 mg tablet 0 03-04 00:00: 00 Yes TAKE 1 TABLET BY MOUTH EVERYDAY AT BEDTIME [facility] escitalopra m oxalate 10 mg tablet 03-04 00:00: 00 Yes TAKE 1 TABLET BY MOUTH EVERY MORNING [facility] traZODONE 50 mg tablet 0 03-04 00:00: 00 Yes TAKE 1 TABLET BY MOUTH EVERYDAY AT BEDTIME [facility] escitalopra m oxalate 10 mg tablet 03-04 00:00: 00 Yes TAKE 1 TABLET BY MOUTH EVERY MORNING [facility] traZODONE 50 mg tablet 0 03-04 00:00: 00 Yes TAKE 1 TABLET BY MOUTH EVERYDAY AT BEDTIME [facility] escitalopra m oxalate 10 mg tablet 03-04 00:00: 00 Yes TAKE 1 TABLET BY MOUTH EVERY MORNING [facility] traZODONE 50 mg tablet 03-04 00:00: 00 Yes TAKE 1 TABLET BY MOUTH EVERYDAY AT BEDTIME [facility] escitalopra m oxalate 10 mg tablet 0 03-04 00:00: 00 Yes TAKE 1 TABLET BY MOUTH EVERY MORNING [facility] traZODONE 50 mg tablet 03-04 00:00: 00 Yes TAKE 1 TABLET BY MOUTH EVERYDAY AT BEDTIME [facility] escitalopra m oxalate 10 mg tablet 0 03-04 00:00: 00 Yes TAKE 1 TABLET BY MOUTH EVERY MORNING [facility] traZODONE 50 mg tablet 0 03-04 00:00: 00 Yes TAKE 1 TABLET BY MOUTH EVERYDAY AT BEDTIME [facility] escitalopra m oxalate 10 mg tablet 03-04 00:00: 00 Yes TAKE 1 TABLET BY MOUTH EVERY MORNING [facility] traZODONE 50 mg tablet 03-04 00:00: 00 Yes TAKE 1 TABLET BY MOUTH EVERYDAY AT BEDTIME [facility] escitalopra m oxalate 10 mg tablet 03-04 00:00: 00 Yes TAKE 1 TABLET BY MOUTH EVERY MORNING [facility] traZODONE 50 mg tablet 03-04 00:00: 00 Yes TAKE 1 TABLET BY MOUTH EVERYDAY AT BEDTIME [facility] traZODONE 50 mg tablet 03-04 00:00: 00 Yes TAKE 1 TABLET BY MOUTH EVERYDAY AT BEDTIME [facility] escitalopra m oxalate 10 mg tablet 03-04 00:00: 00 Yes TAKE 1 TABLET BY MOUTH EVERY MORNING [facility] escitalopra m oxalate 10 mg tablet 03-04 00:00: 00 Yes TAKE 1 TABLET BY MOUTH EVERY MORNING [facility] traZODONE 50 mg tablet 03-04 00:00: 00 Yes TAKE 1 TABLET BY MOUTH EVERYDAY AT BEDTIME [facility] escitalopra m oxalate 10 mg tablet 03-04 00:00: 00 Yes TAKE 1 TABLET BY MOUTH EVERY MORNING [facility] traZODONE 50 mg tablet 03-04 00:00: 00 Yes TAKE 1 TABLET BY MOUTH EVERYDAY AT BEDTIME [facility] escitalopra m oxalate 10 mg tablet 03-04 00:00: 00 Yes TAKE 1 TABLET BY MOUTH EVERY MORNING [facility] traZODONE 50 mg tablet 03-04 00:00: 00 Yes TAKE 1 TABLET BY MOUTH EVERYDAY AT BEDTIME [facility] escitalopra m oxalate 10 mg tablet 03-04 00:00: 00 Yes TAKE 1 TABLET BY MOUTH EVERY MORNING [facility] traZODONE 50 mg tablet 03-04 00:00: 00 Yes TAKE 1 TABLET BY MOUTH EVERYDAY AT BEDTIME [facility] escitalopra m oxalate 10 mg tablet 03-04 00:00: 00 Yes TAKE 1 TABLET BY MOUTH EVERY MORNING [facility] traZODONE 50 mg tablet 03-04 00:00: 00 Yes TAKE 1 TABLET BY MOUTH EVERYDAY AT BEDTIME [facility] escitalopra m oxalate 10 mg tablet 03-04 00:00: 00 Yes TAKE 1 TABLET BY MOUTH EVERY MORNING [facility] traZODONE 50 mg tablet 03-04 00:00: 00 Yes TAKE 1 TABLET BY MOUTH EVERYDAY AT BEDTIME [facility] escitalopra m oxalate 10 mg tablet 03-04 00:00: 00 Yes TAKE 1 TABLET BY MOUTH EVERY MORNING [facility] traZODONE 50 mg tablet 03-04 00:00: 00 Yes TAKE 1 TABLET BY MOUTH EVERYDAY AT BEDTIME [facility] escitalopra m oxalate 10 mg tablet 03-04 00:00: 00 Yes TAKE 1 TABLET BY MOUTH EVERY MORNING [facility] traZODONE 50 mg tablet 03-04 00:00: 00 Yes TAKE 1 TABLET BY MOUTH EVERYDAY AT BEDTIME [facility] escitalopra m oxalate 10 mg tablet 03-04 00:00: 00 Yes TAKE 1 TABLET BY MOUTH EVERY MORNING [facility] traZODONE 50 mg tablet 03-04 00:00: 00 Yes TAKE 1 TABLET BY MOUTH EVERYDAY AT BEDTIME [facility] escitalopra m oxalate 10 mg tablet 03-04 00:00: 00 Yes TAKE 1 TABLET BY MOUTH EVERY MORNING [facility] traZODONE 50 mg tablet 0 03-04 00:00: 00 Yes TAKE 1 TABLET BY MOUTH EVERYDAY AT BEDTIME [facility] escitalopra m oxalate 10 mg tablet 03-04 00:00: 00 Yes TAKE 1 TABLET BY MOUTH EVERY MORNING [facility] traZODONE 50 mg tablet 0 03-04 00:00: 00 Yes TAKE 1 TABLET BY MOUTH EVERYDAY AT BEDTIME [facility] escitalopra m oxalate 10 mg tablet 0 03-04 00:00: 00 Yes TAKE 1 TABLET BY MOUTH EVERY MORNING [facility] traZODONE 50 mg tablet 03-04 00:00: 00 Yes TAKE 1 TABLET BY MOUTH EVERYDAY AT BEDTIME [facility] escitalopra m oxalate 10 mg tablet 03-04 00:00: 00 Yes TAKE 1 TABLET BY MOUTH EVERY MORNING [facility] escitalopra m oxalate 10 mg tablet 03-04 00:00: 00 07-17 00:00 :00 No TAKE 1 TABLET BY MOUTH EVERY MORNING [facility] escitalopra m oxalate 10 mg tablet 03-04 00:00: 00 07-17 00:00 :00 No TAKE 1 TABLET BY MOUTH EVERY MORNING [facility] No known medications No [facility] Immunizations Ordered Immunization Name Filled Immunization Name Date Status Comments Source HPV9 2023-02-21 00:00:00 Completed [facility] HPV9 2023-02-21 00:00:00 Completed [facility] HPV9 2023-02-21 00:00:00 Completed [facility] HPV9 2023-02-21 00:00:00 Completed [facility] HPV9 2023-02-21 00:00:00 Completed [facility] HPV9 2023-02-21 00:00:00 Completed [facility] HPV9 2023-02-21 00:00:00 Completed [facility] HPV9 2023-02-21 00:00:00 Completed [facility] HPV9 2023-02-21 00:00:00 Completed [facility] HPV9 2023-02-21 00:00:00 Completed [facility] HPV9 2023-02-21 00:00:00 Completed [facility] HPV9 2023-02-21 00:00:00 Completed [facility] TDAP 2017-10-16 00:00:00 Completed [facility] Influenza Virus Vaccine Quad IM 3+ YRS 2017-10-16 00:00:00 Completed [facility] Tdap 2017-10-16 00:00:00 Completed [facility] Influenza Virus Vaccine Quad IM 3+ YRS 2017-10-16 00:00:00 Completed [facility] TDAP 2017-10-16 00:00:00 Completed [facility] Influenza Virus Vaccine Quad IM 3+ YRS 2017-10-16 00:00:00 Completed [facility] TDAP 2017-10-16 00:00:00 Completed [facility] Influenza Virus Vaccine Quad IM 3+ YRS 2017-10-16 00:00:00 Completed [facility] TDAP 2017-10-16 00:00:00 Completed [facility] Influenza Virus Vaccine Quad IM 3+ YRS 2017-10-16 00:00:00 Completed [facility] TDAP 2017-10-16 00:00:00 Completed [facility] Influenza Virus Vaccine Quad IM 3+ YRS 2017-10-16 00:00:00 Completed [facility] TDAP 2017-10-16 00:00:00 Completed [facility] Influenza Virus Vaccine Quad IM 3+ YRS 2017-10-16 00:00:00 Completed [facility] Tdap 2017-10-16 00:00:00 Completed [facility] Influenza Virus Vaccine Quad IM 3+ YRS 2017-10-16 00:00:00 Completed [facility] TDAP 2017-10-16 00:00:00 Completed [facility] Influenza Virus Vaccine Quad IM 3+ YRS 2017-10-16 00:00:00 Completed [facility] TDAP 2017-10-16 00:00:00 Completed [facility] Influenza Virus Vaccine Quad IM 3+ YRS 2017-10-16 00:00:00 Completed [facility] TDAP 2017-10-16 00:00:00 Completed [facility] Influenza Virus Vaccine Quad IM 3+ YRS 2017-10-16 00:00:00 Completed [facility] TDAP 2017-10-16 00:00:00 Completed [facility] Influenza Virus Vaccine Quad IM 3+ YRS 2017-10-16 00:00:00 Completed [facility] TDAP 2017-10-16 00:00:00 Completed [facility] Influenza Virus Vaccine Quad IM 3+ YRS 2017-10-16 00:00:00 Completed [facility] TDAP 2017-10-16 00:00:00 Completed [facility] Influenza Virus Vaccine Quad IM 3+ YRS 2017-10-16 00:00:00 Completed [facility] TDAP 2017-10-16 00:00:00 Completed [facility] Influenza Virus Vaccine Quad IM 3+ YRS 2017-10-16 00:00:00 Completed [facility] TDAP 2017-10-16 00:00:00 Completed [facility] Influenza Virus Vaccine Quad IM 3+ YRS 2017-10-16 00:00:00 Completed [facility] Tdap 2017-10-16 00:00:00 Completed [facility] Influenza Virus Vaccine Quad IM 3+ YRS 2017-10-16 00:00:00 Completed [facility] TDAP 2017-10-16 00:00:00 Completed [facility] Influenza Virus Vaccine Quad IM 3+ YRS 2017-10-16 00:00:00 Completed [facility] TDAP 2017-10-16 00:00:00 Completed [facility] Influenza Virus Vaccine Quad IM 3+ YRS 2017-10-16 00:00:00 Completed [facility] TDAP 2017-10-16 00:00:00 Completed [facility] Influenza Virus Vaccine Quad IM 3+ YRS 2017-10-16 00:00:00 Completed [facility] TDAP 2017-10-16 00:00:00 Completed [facility] Influenza Virus Vaccine Quad IM 3+ YRS 2017-10-16 00:00:00 Completed [facility] TDAP 2017-10-16 00:00:00 Completed [facility] Influenza Virus Vaccine Quad IM 3+ YRS 2017-10-16 00:00:00 Completed [facility] TDAP 2017-10-16 00:00:00 Completed [facility] Influenza Virus Vaccine Quad IM 3+ YRS 2017-10-16 00:00:00 Completed [facility] Tdap 2017-10-16 00:00:00 [facility]pleted [facility] Influenza Virus Vaccine Quad IM 3+ YRS 2017-10-16 00:00:00 Completed [facility] TDAP 2017-10-16 00:00:00 Completed [facility] Influenza Virus Vaccine Quad IM 3+ YRS 2017-10-16 00:00:00 Completed [facility] TDAP 2017-10-16 00:00:00 Completed [facility] Influenza Virus Vaccine Quad IM 3+ YRS 2017-10-16 00:00:00 Completed [facility] Tdap 2017-10-16 00:00:00 Completed [facility] Influenza Virus Vaccine Quad IM 3+ YRS 2017-10-16 00:00:00 Completed [facility] Tdap 2017-10-16 00:00:00 Completed [facility] Influenza Virus Vaccine Quad IM 3+ YRS 2017-10-16 00:00:00 Completed [facility] Tdap 2017-10-16 00:00:00 Completed [facility] Influenza Virus Vaccine Quad IM 3+ YRS 2017-10-16 00:00:00 Completed [facility] Tdap 2017-10-16 00:00:00 Completed [facility] Influenza Virus Vaccine Quad IM 3+ YRS 2017-10-16 00:00:00 Completed [facility] Tdap 2017-10-16 00:00:00 Completed [facility] Influenza Virus Vaccine Quad IM 3+ YRS 2017-10-16 00:00:00 Completed [facility] TDAP 2017-10-16 00:00:00 Completed [facility] Influenza Virus Vaccine Quad IM 3+ YRS 2017-10-16 00:00:00 Completed [facility] TDAP 2017-10-16 00:00:00 Completed [facility] Influenza Virus Vaccine Quad IM 3+ YRS 2017-10-16 00:00:00 Completed [facility] TDAP 2017-10-16 00:00:00 Completed [facility] Influenza Virus Vaccine Quad IM 3+ YRS 2017-10-16 00:00:00 Completed [facility] TDAP 2017-10-16 00:00:00 Completed [facility] Influenza Virus Vaccine Quad IM 3+ YRS 2017-10-16 00:00:00 Completed [facility] TDAP 2017-10-16 00:00:00 Completed [facility] Tdap 2017-10-16 00:00:00 Completed [facility] Influenza Virus Vaccine Quad IM 3+ YRS 2017-10-16 00:00:00 Completed [facility] Influenza Virus Vaccine Quad IM 3+ YRS 2017-10-16 00:00:00 Completed [facility] TDAP 2017-10-16 00:00:00 Completed [facility] Influenza Virus Vaccine Quad IM 3+ YRS 2017-10-16 00:00:00 Completed [facility] TDAP 2017-10-16 00:00:00 Completed [facility] Influenza Virus Vaccine Quad IM 3+ YRS 2017-10-16 00:00:00 Completed [facility] TDAP 2017-10-16 00:00:00 Completed [facility] Influenza Virus Vaccine Quad IM 3+ YRS 2017-10-16 00:00:00 Completed [facility] TDAP 2017-10-16 00:00:00 Completed [facility] Influenza Virus Vaccine Quad IM 3+ YRS 2017-10-16 00:00:00 Completed [facility] TDAP 2017-10-16 00:00:00 Completed [facility] Influenza Virus Vaccine Quad IM 3+ YRS 2017-10-16 00:00:00 Completed [facility] Tdap 2017-10-16 00:00:00 Completed [facility] Influenza Virus Vaccine Quad IM 3+ YRS 2017-10-16 00:00:00 Completed [facility] TDAP 2017-10-16 00:00:00 Completed [facility] Influenza Virus Vaccine Quad IM 3+ YRS 2017-10-16 00:00:00 Completed [facility] TDAP 2017-10-16 00:00:00 Completed [facility] Influenza Virus Vaccine Quad IM 3+ YRS 2017-10-16 00:00:00 Completed [facility] TDAP 2017-10-16 00:00:00 Completed [facility] Influenza Virus Vaccine Quad IM 3+ YRS 2017-10-16 00:00:00 Completed [facility] TDAP 2017-10-16 00:00:00 Completed [facility] Influenza Virus Vaccine Quad IM 3+ YRS 2017-10-16 00:00:00 Completed [facility] TDAP 2017-10-16 00:00:00 Completed [facility] Influenza Virus Vaccine Quad IM 3+ YRS 2017-10-16 00:00:00 Completed [facility] TDAP 2017-10-16 00:00:00 Completed [facility] Influenza Virus Vaccine Quad IM 3+ YRS 2017-10-16 00:00:00 Completed [facility] TDAP 2017-10-16 00:00:00 Completed [facility] Influenza Virus Vaccine Quad IM 3+ YRS 2017-10-16 00:00:00 Completed [facility] TDAP 2017-10-16 00:00:00 Completed [facility] Influenza Virus Vaccine Quad IM 3+ YRS 2017-10-16 00:00:00 Completed [facility] TDAP 2017-10-16 00:00:00 Completed [facility] Influenza Virus Vaccine Quad IM 3+ YRS 2017-10-16 00:00:00 Completed [facility] Tdap 2017-10-16 00:00:00 Completed [facility] Influenza Virus Vaccine Quad IM 3+ YRS 2017-10-16 00:00:00 Completed [facility] TDAP 2017-10-16 00:00:00 Completed [facility] Influenza Virus Vaccine Quad IM 3+ YRS 2017-10-16 00:00:00 Completed [facility] TDAP 2017-10-16 00:00:00 Completed [facility] Influenza Virus Vaccine Quad IM 3+ YRS 2017-10-16 00:00:00 Completed [facility] TDAP 2017-10-16 00:00:00 Completed [facility] Influenza Virus Vaccine Quad IM 3+ YRS 2017-10-16 00:00:00 Completed [facility] TDAP 2017-10-16 00:00:00 Completed [facility] Influenza Virus Vaccine Quad IM 3+ YRS 2017-10-16 00:00:00 Completed [facility] TDAP 2017-10-16 00:00:00 Completed [facility] Influenza Virus Vaccine Quad IM 3+ YRS 2017-10-16 00:00:00 Completed [facility] TDAP 2017-10-16 00:00:00 Completed [facility] Influenza Virus Vaccine Quad IM 3+ YRS 2017-10-16 00:00:00 Completed [facility] TDAP 2017-10-16 00:00:00 Completed [facility] Influenza Virus Vaccine Quad IM 3+ YRS 2017-10-16 00:00:00 Completed [facility] Tdap 2017-10-16 00:00:00 Completed [facility] Influenza Virus Vaccine Quad IM 3+ YRS 2017-10-16 00:00:00 Completed [facility] TDAP 2017-10-16 00:00:00 Completed [facility] Influenza Virus Vaccine Quad IM 3+ YRS 2017-10-16 00:00:00 Completed [facility] TDAP 2017-10-16 00:00:00 Completed [facility] Influenza Virus Vaccine Quad IM 3+ YRS 2017-10-16 00:00:00 Completed [facility] TDAP 2017-10-16 00:00:00 Completed [facility] Influenza Virus Vaccine Quad IM 3+ YRS 2017-10-16 00:00:00 Completed [facility] TDAP 2017-10-16 00:00:00 Completed [facility] Influenza Virus Vaccine Quad IM 3+ YRS 2017-10-16 00:00:00 Completed [facility] Tdap 2017-10-16 00:00:00 Completed [facility] TDAP 2017-10-16 00:00:00 Completed [facility] Influenza Virus Vaccine Quad IM 3+ YRS 2017-10-16 00:00:00 Completed [facility] Influenza Virus Vaccine Quad IM 3+ YRS 2017-10-16 00:00:00 Completed [facility] TDAP 2017-10-16 00:00:00 Completed [facility] Influenza Virus Vaccine Quad IM 3+ YRS 2017-10-16 00:00:00 Completed [facility] TDAP 2017-10-16 00:00:00 Completed [facility] Influenza Virus Vaccine Quad IM 3+ YRS 2017-10-16 00:00:00 Completed [facility] TDAP 2016-01-18 00:00:00 Completed [facility] Tdap 2016-01-18 00:00:00 Completed [facility] TDAP 2016-01-18 00:00:00 Completed [facility] TDAP 2016-01-18 00:00:00 Completed [facility] TDAP 2016-01-18 00:00:00 Completed [facility] TDAP 2016-01-18 00:00:00 Completed [facility] TDAP 2016-01-18 00:00:00 Completed [facility] Tdap 2016-01-18 00:00:00 Completed [facility] TDAP 2016-01-18 00:00:00 Completed [facility] TDAP 2016-01-18 00:00:00 Completed [facility] TDAP 2016-01-18 00:00:00 Completed [facility] TDAP 2016-01-18 00:00:00 Completed [facility] TDAP 2016-01-18 00:00:00 Completed [facility] TDAP 2016-01-18 00:00:00 Completed [facility] TDAP 2016-01-18 00:00:00 Completed [facility] Tdap 2016-01-18 00:00:00 Completed [facility] TDAP 2016-01-18 00:00:00 Completed [facility] TDAP 2016-01-18 00:00:00 Completed [facility] TDAP 2016-01-18 00:00:00 Completed [facility] TDAP 2016-01-18 00:00:00 Completed [facility] TDAP 2016-01-18 00:00:00 Completed [facility] TDAP 2016-01-18 00:00:00 Completed [facility] TDAP 2016-01-18 00:00:00 Completed [facility] Tdap 2016-01-18 00:00:00 Completed [facility] TDAP 2016-01-18 00:00:00 Completed [facility] TDAP 2016-01-18 00:00:00 Completed [facility] Tdap 2016-01-18 00:00:00 Completed [facility] Tdap 2016-01-18 00:00:00 Completed [facility] Tdap 2016-01-18 00:00:00 Completed [facility] Tdap 2016-01-18 00:00:00 Completed [facility] Tdap 2016-01-18 00:00:00 Completed [facility] TDAP 2016-01-18 00:00:00 Completed [facility] TDAP 2016-01-18 00:00:00 Completed [facility] TDAP 2016-01-18 00:00:00 Completed [facility] TDAP 2016-01-18 00:00:00 Completed [facility] Tdap 2016-01-18 00:00:00 Completed [facility] TDAP 2016-01-18 00:00:00 Completed [facility] TDAP 2016-01-18 00:00:00 Completed [facility] TDAP 2016-01-18 00:00:00 Completed [facility] TDAP 2016-01-18 00:00:00 Completed [facility] TDAP 2016-01-18 00:00:00 Completed [facility] Tdap 2016-01-18 00:00:00 Completed [facility] TDAP 2016-01-18 00:00:00 Completed [facility] TDAP 2016-01-18 00:00:00 Completed [facility] TDAP 2016-01-18 00:00:00 Completed [facility] TDAP 2016-01-18 00:00:00 Completed [facility] TDAP 2016-01-18 00:00:00 Completed [facility] TDAP 2016-01-18 00:00:00 Completed [facility] TDAP 2016-01-18 00:00:00 Completed [facility] TDAP 2016-01-18 00:00:00 Completed [facility] TDAP 2016-01-18 00:00:00 Completed [facility] Tdap 2016-01-18 00:00:00 Completed [facility] TDAP 2016-01-18 00:00:00 Completed [facility] TDAP 2016-01-18 00:00:00 Completed [facility] TDAP 2016-01-18 00:00:00 Completed [facility] TDAP 2016-01-18 00:00:00 Completed [facility] TDAP 2016-01-18 00:00:00 Completed [facility] TDAP 2016-01-18 00:00:00 Completed [facility] TDAP 2016-01-18 00:00:00 Completed [facility] Tdap 2016-01-18 00:00:00 Completed [facility] TDAP 2016-01-18 00:00:00 Completed [facility] TDAP 2016-01-18 00:00:00 Completed [facility] TDAP 2016-01-18 00:00:00 Completed [facility] TDAP 2016-01-18 00:00:00 Completed [facility] TDAP 2016-01-18 00:00:00 Completed [facility] Tdap 2016-01-18 00:00:00 Completed [facility] TDAP 2016-01-18 00:00:00 Completed [facility] TDAP 2016-01-18 00:00:00 Completed [facility] TDAP 2016-01-18 00:00:00 Completed [facility] TDAP 2014-05-18 00:00:00 Completed [facility] Tdap 2014-05-18 00:00:00 Completed [facility] TDAP 2014-05-18 00:00:00 Completed [facility] TDAP 2014-05-18 00:00:00 Completed [facility] TDAP 2014-05-18 00:00:00 Completed [facility] TDAP 2014-05-18 00:00:00 Completed [facility] Tdap 2014-05-18 00:00:00 Completed [facility] TDAP 2014-05-18 00:00:00 Completed [facility] TDAP 2014-05-18 00:00:00 Completed [facility] TDAP 2014-05-18 00:00:00 Completed [facility] TDAP 2014-05-18 00:00:00 Completed [facility] TDAP 2014-05-18 00:00:00 Completed [facility] TDAP 2014-05-18 00:00:00 Completed [facility] TDAP 2014-05-18 00:00:00 Completed [facility] TDAP 2014-05-18 00:00:00 Completed [facility] Tdap 2014-05-18 00:00:00 Completed [facility] TDAP 2014-05-18 00:00:00 Completed [facility] TDAP 2014-05-18 00:00:00 [facility]pleted [facility] TD[facility] 2014-05-18 00:00:00 Completed [facility] TDAP 2014-05-18 00:00:00 Completed [facility] TDAP 2014-05-18 00:00:00 Completed [facility] TDAP 2014-05-18 00:00:00 [facility]pleted [facility] TDAP 2014-05-18 00:00:00 Completed [facility] Tdap 2014-05-18 00:00:00 Completed [facility] TDAP 2014-05-18 00:00:00 Completed [facility] TDAP 2014-05-18 00:00:00 Completed [facility] Tdap 2014-05-18 00:00:00 Completed [facility] Tdap 2014-05-18 00:00:00 Completed [facility] Tdap 2014-05-18 00:00:00 Completed [facility] Tdap 2014-05-18 00:00:00 Completed [facility] Tdap 2014-05-18 00:00:00 Completed [facility] Tdap 2014-05-18 00:00:00 Completed [facility] TDAP 2014-05-18 00:00:00 Completed [facility] TDAP 2014-05-18 00:00:00 Completed [facility] TDAP 2014-05-18 00:00:00 Completed [facility] TDAP 2014-05-18 00:00:00 Completed [facility] Tdap 2014-05-18 00:00:00 Completed [facility] TDAP 2014-05-18 00:00:00 [facility]pleted [facility] TDAP 2014-05-18 00:00:00 Completed [facility] TDAP 2014-05-18 00:00:00 Completed [facility] TDAP 2014-05-18 00:00:00 Completed [facility] Tdap 2014-05-18 00:00:00 Completed [facility] TDAP 2014-05-18 00:00:00 [facility]pleted [facility] TDAP 2014-05-18 00:00:00 [facility]pleted [facility] TDAP 2014-05-18 00:00:00 Completed [facility] TDAP 2014-05-18 00:00:00 Completed [facility] TDAP 2014-05-18 00:00:00 Completed [facility] TDAP 2014-05-18 00:00:00 Completed [facility] TDAP 2014-05-18 00:00:00 Completed [facility] TDAP 2014-05-18 00:00:00 Completed [facility] TDAP 2014-05-18 00:00:00 Completed [facility] Tdap 2014-05-18 00:00:00 Completed [facility] TDAP 2014-05-18 00:00:00 Completed [facility] TDAP 2014-05-18 00:00:00 Completed [facility] TDAP 2014-05-18 00:00:00 Completed [facility] TDAP 2014-05-18 00:00:00 Completed [facility] TDAP 2014-05-18 00:00:00 Completed [facility] TDAP 2014-05-18 00:00:00 Completed [facility] TDAP 2014-05-18 00:00:00 Completed [facility] TDAP 2014-05-18 00:00:00 Completed [facility] Tdap 2014-05-18 00:00:00 Completed [facility] TDAP 2014-05-18 00:00:00 Completed [facility] TDAP 2014-05-18 00:00:00 Completed [facility] TDAP 2014-05-18 00:00:00 Completed [facility] TDAP 2014-05-18 00:00:00 Completed [facility] TDAP 2014-05-18 00:00:00 Completed [facility] Tdap 2014-05-18 00:00:00 Completed [facility] TDAP 2014-05-18 00:00:00 Completed [facility] TDAP 2014-05-18 00:00:00 Completed [facility] TDAP 2014-05-18 00:00:00 Completed [facility] Pneumococcal Polysaccharide, PPSV23 (PNEUMOVAX) 2008-05-11 00:00:00 Completed [facility] Pneumococcal Polysaccharide, PPSV23 (PNEUMOVAX) 2008-05-11 00:00:00 Completed [facility] Pneumococcal Polysaccharide, PPSV23 (PNEUMOVAX) 2008-05-11 00:00:00 Completed [facility] Pneumococcal Polysaccharide, PPSV23 (PNEUMOVAX) 2008-05-11 00:00:00 Completed [facility] Pneumococcal Polysaccharide, PPSV23 (PNEUMOVAX) 2008-05-11 00:00:00 Completed [facility] Pneumococcal Polysaccharide, PPSV23 (PNEUMOVAX) 2008-05-11 00:00:00 Completed [facility] Pneumococcal Polysaccharide, PPSV23 (PNEUMOVAX) 2008-05-11 00:00:00 Completed [facility] Pneumococcal Polysaccharide, PPSV23 (PNEUMOVAX) 2008-05-11 00:00:00 Completed [facility] Pneumococcal Polysaccharide, PPSV23 (PNEUMOVAX) 2008-05-11 00:00:00 Completed [facility] Pneumococcal Polysaccharide, PPSV23 (PNEUMOVAX) 2008-05-11 00:00:00 Completed [facility] Pneumococcal Polysaccharide, PPSV23 (PNEUMOVAX) 2008-05-11 00:00:00 Completed [facility] Pneumococcal Polysaccharide, PPSV23 (PNEUMOVAX) 2008-05-11 00:00:00 Completed [facility] Pneumococcal Polysaccharide, PPSV23 (PNEUMOVAX) 2008-05-11 00:00:00 Completed [facility] Pneumococcal Polysaccharide, PPSV23 (PNEUMOVAX) 2008-05-11 00:00:00 Completed [facility] Pneumococcal Polysaccharide, PPSV23 (PNEUMOVAX) 2008-05-11 00:00:00 Completed [facility] Pneumococcal Polysaccharide, PPSV23 (PNEUMOVAX) 2008-05-11 00:00:00 Completed [facility] Pneumococcal Polysaccharide, PPSV23 (PNEUMOVAX) 2008-05-11 00:00:00 Completed [facility] Pneumococcal Polysaccharide, PPSV23 (PNEUMOVAX) 2008-05-11 00:00:00 Completed [facility] Pneumococcal Polysaccharide, PPSV23 (PNEUMOVAX) 2008-05-11 00:00:00 Completed [facility] Pneumococcal Polysaccharide, PPSV23 (PNEUMOVAX) 2008-05-11 00:00:00 Completed [facility] Pneumococcal Polysaccharide, PPSV23 (PNEUMOVAX) 2008-05-11 00:00:00 Completed [facility] Pneumococcal Polysaccharide, PPSV23 (PNEUMOVAX) 2008-05-11 00:00:00 Completed [facility] Pneumococcal Polysaccharide, PPSV23 (PNEUMOVAX) 2008-05-11 00:00:00 Completed [facility] Pneumococcal Polysaccharide, PPSV23 (PNEUMOVAX) 2008-05-11 00:00:00 Completed [facility] Pneumococcal Polysaccharide, PPSV23 (PNEUMOVAX) 2008-05-11 00:00:00 Completed [facility] Pneumococcal Polysaccharide, PPSV23 (PNEUMOVAX) 2008-05-11 00:00:00 Completed [facility] Pneumococcal Polysaccharide, PPSV23 (PNEUMOVAX) 2008-05-11 00:00:00 Completed [facility] Pneumococcal Polysaccharide, PPSV23 (PNEUMOVAX) 2008-05-11 00:00:00 Completed [facility] Pneumococcal Polysaccharide, PPSV23 (PNEUMOVAX) 2008-05-11 00:00:00 Completed [facility] Pneumococcal Polysaccharide, PPSV23 (PNEUMOVAX) 2008-05-11 00:00:00 Completed [facility] Pneumococcal Polysaccharide, PPSV23 (PNEUMOVAX) 2008-05-11 00:00:00 Completed [facility] Pneumococcal Polysaccharide, PPSV23 (PNEUMOVAX) 2008-05-11 00:00:00 Completed [facility] Pneumococcal Polysaccharide, PPSV23 (PNEUMOVAX) 2008-05-11 00:00:00 Completed [facility] Pneumococcal Polysaccharide, PPSV23 (PNEUMOVAX) 2008-05-11 00:00:00 Completed [facility] Pneumococcal Polysaccharide, PPSV23 (PNEUMOVAX) 2008-05-11 00:00:00 Completed [facility] Pneumococcal Polysaccharide, PPSV23 (PNEUMOVAX) 2008-05-11 00:00:00 Completed [facility] Pneumococcal Polysaccharide, PPSV23 (PNEUMOVAX) 2008-05-11 00:00:00 Completed [facility] Pneumococcal Polysaccharide, PPSV23 (PNEUMOVAX) 2008-05-11 00:00:00 Completed [facility] Pneumococcal Polysaccharide, PPSV23 (PNEUMOVAX) 2008-05-11 00:00:00 Completed [facility] Pneumococcal Polysaccharide, PPSV23 (PNEUMOVAX) 2008-05-11 00:00:00 Completed [facility] Pneumococcal Polysaccharide, PPSV23 (PNEUMOVAX) 2008-05-11 00:00:00 Completed [facility] Pneumococcal Polysaccharide, PPSV23 (PNEUMOVAX) 2008-05-11 00:00:00 Completed [facility] Pneumococcal Polysaccharide, PPSV23 (PNEUMOVAX) 2008-05-11 00:00:00 Completed [facility] Pneumococcal Polysaccharide, PPSV23 (PNEUMOVAX) 2008-05-11 00:00:00 Completed [facility] Pneumococcal Polysaccharide, PPSV23 (PNEUMOVAX) 2008-05-11 00:00:00 Completed [facility] Pneumococcal Polysaccharide, PPSV23 (PNEUMOVAX) 2008-05-11 00:00:00 Completed [facility] Pneumococcal Polysaccharide, PPSV23 (PNEUMOVAX) 2008-05-11 00:00:00 Completed [facility] Pneumococcal Polysaccharide, PPSV23 (PNEUMOVAX) 2008-05-11 00:00:00 Completed [facility] Pneumococcal Polysaccharide, PPSV23 (PNEUMOVAX) 2008-05-11 00:00:00 Completed [facility] Pneumococcal Polysaccharide, PPSV23 (PNEUMOVAX) 2008-05-11 00:00:00 Completed [facility] Pneumococcal Polysaccharide, PPSV23 (PNEUMOVAX) 2008-05-11 00:00:00 Completed [facility] Pneumococcal Polysaccharide, PPSV23 (PNEUMOVAX) 2008-05-11 00:00:00 Completed [facility] Pneumococcal Polysaccharide, PPSV23 (PNEUMOVAX) 2008-05-11 00:00:00 Completed [facility] Pneumococcal Polysaccharide, PPSV23 (PNEUMOVAX) 2008-05-11 00:00:00 Completed [facility] Pneumococcal Polysaccharide, PPSV23 (PNEUMOVAX) 2008-05-11 00:00:00 Completed [facility] Pneumococcal Polysaccharide, PPSV23 (PNEUMOVAX) 2008-05-11 00:00:00 Completed [facility] Pneumococcal Polysaccharide, PPSV23 (PNEUMOVAX) 2008-05-11 00:00:00 Completed [facility] Pneumococcal Polysaccharide, PPSV23 (PNEUMOVAX) 2008-05-11 00:00:00 Completed [facility] Pneumococcal Polysaccharide, PPSV23 (PNEUMOVAX) 2008-05-11 00:00:00 Completed [facility] Pneumococcal Polysaccharide, PPSV23 (PNEUMOVAX) 2008-05-11 00:00:00 Completed [facility] Pneumococcal Polysaccharide, PPSV23 (PNEUMOVAX) 2008-05-11 00:00:00 Completed [facility] Pneumococcal Polysaccharide, PPSV23 (PNEUMOVAX) 2008-05-11 00:00:00 Completed [facility] Pneumococcal Polysaccharide, PPSV23 (PNEUMOVAX) 2008-05-11 00:00:00 Completed [facility] Pneumococcal Polysaccharide, PPSV23 (PNEUMOVAX) 2008-05-11 00:00:00 Completed [facility] Pneumococcal Polysaccharide, PPSV23 (PNEUMOVAX) 2008-05-11 00:00:00 Completed [facility] Pneumococcal Polysaccharide, PPSV23 (PNEUMOVAX) 2008-05-11 00:00:00 Completed [facility] Pneumococcal Polysaccharide, PPSV23 (PNEUMOVAX) 2008-05-11 00:00:00 Completed [facility] Pneumococcal Polysaccharide, PPSV23 (PNEUMOVAX) 2008-05-11 00:00:00 Completed [facility] Pneumococcal Polysaccharide, PPSV23 (PNEUMOVAX) 2008-05-11 00:00:00 Completed [facility] Pneumococcal Polysaccharide, PPSV23 (PNEUMOVAX) 2008-05-11 00:00:00 Completed [facility] Pneumococcal Polysaccharide, PPSV23 (PNEUMOVAX) Unknown Completed [facility] TDAP Unknown Completed [facility] TDAP Unknown Completed [facility] TDAP Unknown Completed [facility] Influenza Virus Vaccine Quad IM 3+ YRS Unknown Completed [facility] HPV9 Unknown Completed [facility] Pneumococcal Polysaccharide, PPSV23 (PNEUMOVAX) Unknown Completed [facility] TDAP Unknown Completed [facility] TDAP Unknown Completed [facility] TDAP Unknown Completed [facility] Influenza Virus Vaccine Quad IM 3+ YRS Unknown Completed [facility] Pneumococcal Polysaccharide, PPSV23 (PNEUMOVAX) Unknown Completed [facility] TDAP Unknown Completed [facility] TDAP Unknown Completed [facility] TDAP Unknown Completed [facility] Influenza Virus Vaccine Quad IM 3+ YRS Unknown Completed [facility] Pneumococcal Polysaccharide, PPSV23 (PNEUMOVAX) Unknown Completed [facility] TDAP Unknown Completed [facility] TDAP Unknown Completed [facility] TDAP Unknown Completed [facility] Influenza Virus Vaccine Quad IM 3+ YRS Unknown Completed [facility] Pneumococcal Polysaccharide, PPSV23 (PNEUMOVAX) Unknown Completed [facility] TDAP Unknown Completed [facility] TDAP Unknown Completed [facility] TDAP Unknown Completed [facility] Influenza Virus Vaccine Quad IM 3+ YRS Unknown Completed [facility] Pneumococcal Polysaccharide, PPSV23 (PNEUMOVAX) Unknown Completed [facility] TDAP Unknown Completed [facility] TDAP Unknown Completed [facility] TDAP Unknown Completed [facility] Influenza Virus Vaccine Quad IM 3+ YRS Unknown Completed [facility] Pneumococcal Polysaccharide, PPSV23 (PNEUMOVAX) Unknown Completed [facility] TDAP Unknown Completed [facility] TDAP Unknown Completed [facility] TDAP Unknown Completed [facility] Influenza Virus Vaccine Quad IM 3+ YRS Unknown Completed [facility] Pneumococcal Polysaccharide, PPSV23 (PNEUMOVAX) Unknown Completed [facility] TDAP Unknown Completed [facility] TDAP Unknown Completed [facility] TDAP Unknown Completed [facility] Influenza Virus Vaccine Quad IM 3+ YRS Unknown Completed [facility] Pneumococcal Polysaccharide, PPSV23 (PNEUMOVAX) Unknown Completed [facility] TDAP Unknown Completed [facility] TDAP Unknown Completed [facility] TDAP Unknown Completed [facility] Influenza Virus Vaccine Quad IM 3+ YRS Unknown Completed [facility] Pneumococcal Polysaccharide, PPSV23 (PNEUMOVAX) Unknown Completed [facility] TDAP Unknown Completed [facility] TDAP Unknown Completed [facility] TDAP Unknown Completed [facility] Influenza Virus Vaccine Quad IM 3+ YRS Unknown Completed [facility] Pneumococcal Polysaccharide, PPSV23 (PNEUMOVAX) Unknown Completed [facility] TDAP Unknown Completed [facility] TDAP Unknown Completed [facility] TDAP Unknown Completed [facility] Influenza Virus Vaccine Quad IM 3+ YRS Unknown Completed [facility] Pneumococcal Polysaccharide, PPSV23 (PNEUMOVAX) Unknown Completed [facility] TDAP Unknown Completed [facility] TDAP Unknown Completed [facility] TDAP Unknown Completed [facility] Influenza Virus Vaccine Quad IM 3+ YRS Unknown Completed [facility] Pneumococcal Polysaccharide, PPSV23 (PNEUMOVAX) Unknown Completed [facility] TDAP Unknown Completed [facility] TDAP Unknown Completed [facility] TDAP Unknown Completed [facility] Influenza Virus Vaccine Quad IM 3+ YRS Unknown Completed [facility] Vital Signs Vital Name Observation Time Observation Value Comments S ource Systolic blood pressure 2023-06-28 23:34:00 141 mm[Hg] [facility] Diastolic blood pressure 2023-06-28 23:34:00 86 mm[Hg] [facility] Heart rate 2023-06-28 23:33:00 107 /min [facility] Body temperature 2023-06-28 23:33:00 36.83 Zainab [facility] Respiratory rate 2023-06-28 23:33:00 18 /min [facility] Body height 2023-06-28 23:33:00 154.9 cm [facility] Body weight 2023-06-28 23:33:00 121.972 kg [facility] BMI 2023-06-28 23:33:00 50.81 kg/m2 [facility] Oxygen saturation in Arterial blood by Pulse oximetry 2023-06-28 23:33:00 98 /min [facility] Systolic blood pressure 2023-03-07 16:14:00 153 mm[Hg] [facility] Diastolic blood pressure 2023-03-07 16:14:00 89 mm[Hg] [facility] Heart rate 2023-03-07 16:13:00 79 /min [facility] Body temperature 2023-03-07 16:13:00 36.44 Zainab [facility] Respiratory rate 2023-03-07 16:13:00 16 /min [facility] Body weight 2023-03-07 16:13:00 123.378 kg [facility] BMI 2023-03-07 16:13:00 51.39 kg/m2 [facility] Oxygen saturation in Arterial blood by Pulse oximetry 2023-03-07 16:13:00 98 /min [facility] Systolic blood pressure 2023-02-21 13:28:00 128 mm[Hg] [facility] Diastolic blood pressure 2023-02-21 13:28:00 75 mm[Hg] [facility] Heart rate 2023-02-21 13:28:00 65 /min [facility] Body temperature 2023-02-21 13:28:00 36 Zainab [facility] Respiratory rate 2023-02-21 13:28:00 18 /min [facility] Body height 2023-02-21 13:28:00 154.9 cm [facility] Body weight 2023-02-21 13:28:00 122.244 kg [facility] BMI 2023-02-21 13:28:00 50.92 kg/m2 [facility] Systolic blood pressure 2022-11-24 20:34:00 155 mm[Hg] [facility] Diastolic blood pressure 2022-11-24 20:34:00 87 mm[Hg] [facility] Heart rate 2022-11-24 20:22:00 73 /min [facility] Body temperature 2022-11-24 20:22:00 36.67 Zainab [facility] Respiratory rate 2022-11-24 20:22:00 20 /min [facility] Body height 2022-11-24 20:22:00 154.9 cm [facility] Body weight 2022-11-24 20:22:00 123.605 kg [facility] BMI 2022-11-24 20:22:00 51.49 kg/m2 [facility] Oxygen saturation in Arterial blood by Pulse oximetry 2022-11-24 20:22:00 98 /min [facility] Systolic blood pressure 2022-07-17 15:56:00 137 mm[Hg] [facility] Diastolic blood pressure 2022-07-17 15:56:00 79 mm[Hg] [facility] Heart rate 2022-07-17 15:56:00 73 /min [facility] Body temperature 2022-07-17 15:56:00 37 Zainab [facility] Respiratory rate 2022-07-17 15:56:00 18 /min [facility] Body height 2022-07-17 15:56:00 154.9 cm [facility] Body weight 2022-07-17 15:56:00 123.242 kg [facility] BMI 2022-07-17 15:56:00 51.34 kg/m2 [facility] Oxygen saturation in Arterial blood by Pulse oximetry 2022-07-17 15:56:00 95 /min [facility] Systolic blood pressure 2022-06-13 00:43:00 152 mm[Hg] [facility] Diastolic blood pressure 2022-06-13 00:43:00 98 mm[Hg] [facility] Heart rate 2022-06-13 00:41:00 90 /min [facility] Body temperature 2022-06-13 00:41:00 37.17 Zainab [facility] Respiratory rate 2022-06-13 00:41:00 16 /min [facility] Body height 2022-06-13 00:41:00 154.9 cm [facility] Body weight 2022-06-13 00:41:00 126.508 kg [facility] BMI 2022-06-13 00:41:00 52.70 kg/m2 [facility] Oxygen saturation in Arterial blood by Pulse oximetry 2022-06-13 00:41:00 97 /min [facility] Systolic blood pressure 2022-04-14 18:03:00 126 mm[Hg] [facility] Diastolic blood pressure 2022-04-14 18:03:00 87 mm[Hg] [facility] Heart rate 2022-04-14 18:03:00 83 /min [facility] Body temperature 2022-04-14 18:03:00 36.89 Zainab [facility] Respiratory rate 2022-04-14 18:03:00 18 /min [facility] Body height 2022-04-14 18:03:00 154.9 cm [facility] Body weight 2022-04-14 18:03:00 126.508 kg [facility] BMI 2022-04-14 18:03:00 52.70 kg/m2 [facility] Oxygen saturation in Arterial blood by Pulse oximetry 2022-04-14 18:03:00 97 /min [facility] Body weight 2022-04-03 18:36:00 126.554 kg [facility] BMI 2022-04-03 18:36:00 52.72 kg/m2 [facility] Oxygen saturation in Arterial blood by Pulse oximetry 2022-04-03 18:36:00 97 /min [facility] Systolic blood pressure 2022-04-03 18:36:00 146 mm[Hg] [facility] Diastolic blood pressure 2022-04-03 18:36:00 86 mm[Hg] [facility] Heart rate 2022-04-03 18:36:00 84 /min [facility] Body temperature 2022-04-03 18:36:00 37.11 Zainab [facility] Respiratory rate 2022-04-03 18:36:00 18 /min [facility] Body height 2022-04-03 18:36:00 154.9 cm [facility] Systolic blood pressure 2022-03-19 14:01:00 154 mm[Hg] [facility] Diastolic blood pressure 2022-03-19 14:01:00 82 mm[Hg] [facility] Heart rate 2022-03-19 14:01:00 61 /min [facility] Body temperature 2022-03-19 14:01:00 36.83 Zainab [facility] Respiratory rate 2022-03-19 14:01:00 18 /min [facility] Body height 2022-03-19 14:01:00 154.9 cm [facility] Body weight 2022-03-19 14:01:00 124.739 kg [facility] BMI 2022-03-19 14:01:00 51.96 kg/m2 [facility] Oxygen saturation in Arterial blood by Pulse oximetry 2022-03-19 14:01:00 100 /min [facility] Systolic blood pressure 2021-10-01 18:26:00 111 mm[Hg] [facility] Diastolic blood pressure 2021-10-01 18:26:00 76 mm[Hg] [facility] Heart rate 2021-10-01 18:26:00 103 /min [facility] Body temperature 2021-10-01 18:26:00 36.89 Zainab [facility] Respiratory rate 2021-10-01 18:26:00 16 /min [facility] Body height 2021-10-01 18:26:00 154.9 cm [facility] Body weight 2021-10-01 18:26:00 129.048 kg [facility] BMI 2021-10-01 18:26:00 53.76 kg/m2 [facility] Oxygen saturation in Arterial blood by Pulse oximetry 2021-10-01 18:26:00 100 /min [facility] Heart rate 2020-08-04 21:50:00 74 /min [facility] Respiratory rate 2020-08-04 21:50:00 23 /min [facility] Oxygen saturation in Arterial blood by Pulse oximetry 2020-08-04 21:50:00 95 /min [facility] Systolic blood pressure 2020-08-04 21:35:00 106 mm[Hg] [facility] Diastolic blood pressure 2020-08-04 21:35:00 63 mm[Hg] [facility] Body temperature 2020-08-04 20:49:00 36.5 Zainab [facility] Body height 2020-08-04 18:08:00 154.9 cm [facility] Body weight 2020-08-04 18:08:00 124.739 kg [facility] BMI 2020-08-04 18:08:00 51.96 kg/m2 [facility] Heart rate 2020-08-04 21:50:00 74 /min Un[facility] Respiratory rate 2020-08-04 21:50:00 23 /min [facility] Oxygen saturation in Arterial blood by Pulse oximetry 2020-08-04 21:50:00 95 /min [facility] Systolic blood pressure 2020-08-04 21:35:00 106 mm[Hg] [facility] Diastolic blood pressure 2020-08-04 21:35:00 63 mm[Hg] [facility] Body temperature 2020-08-04 20:49:00 36.5 Zainab [facility] Body height 2020-08-04 18:08:00 154.9 cm [facility] Body weight 2020-08-04 18:08:00 124.739 kg [facility] BMI 2020-08-04 18:08:00 51.96 kg/m2 [facility] Systolic blood pressure 2020-06-05 18:07:00 123 mm[Hg] [place] [facility] Diastolic blood pressure 2020-06-05 18:07:00 75 mm[Hg] [facility] Heart rate 2020-06-05 18:07:00 70 /min [facility] Body temperature 2020-06-05 18:07:00 36.72 Zainab [facility] Respiratory rate 2020-06-05 18:07:00 16 /min [facility] Body height 2020-06-05 18:07:00 156.2 cm Univ [facility] Body weight 2020-06-05 18:07:00 129.91 kg Univ [facility] BMI 2020-06-05 18:07:00 53.24 kg/m2 [facility] Body temperature 2020-05-31 20:10:00 36 Zainab [facility] Body weight 2020-05-31 20:10:00 128.822 kg Univ [facility] BMI 2020-05-31 20:10:00 53.66 kg/m2 [facility] Systolic blood pressure 2020-04-06 18:35:00 138 mm[Hg] [facility] Diastolic blood pressure 2020-04-06 18:35:00 83 mm[Hg] [facility] Heart rate 2020-04-06 18:35:00 65 /min [facility] Respiratory rate 2020-04-06 18:35:00 18 /min [facility] Body height 2020-04-06 18:35:00 154.9 cm [facility] Body weight 2020-04-06 18:35:00 122.018 kg [facility] BMI 2020-04-06 18:35:00 50.83 kg/m2 [facility] Systolic blood pressure 2020-03-16 19:12:00 120 mm[Hg] [facility] Diastolic blood pressure 2020-03-16 19:12:00 80 mm[Hg] [place] [facility] Body height 2020-03-16 19:12:00 154.9 cm [facility] Body weight 2020-03-16 19:12:00 122.018 kg [facility] BMI 2020-03-16 19:12:00 50.83 kg/m2 [facility] Body height 2019-12-23 16:00:00 154.9 cm [facility] Body weight 2019-12-23 16:00:00 122.018 kg [facility] BMI 2019-12-23 16:00:00 50.83 kg/m2 [facility] Procedures Procedure Date / Time Performed Performing Clinician Source POCT SARS-COV-2 ANTIGEN (BINAX NOW) 2023-06-28 23:38:00 Cj Tierney [facility] POCT MOLECULAR STREP 2023-03-07 16:19:00 Unknown, Jayson goncalves [facility] URINE CULTURE 2023-02-21 14:14:00 Mirta Correa [facility] GC & CHLAMYDIA AMPLIFIED ASSAY 2023-02-21 14:14:00 Mirta Correa [facility] HIV 1/2 AG-AB WITH REFLEX 2023-02-21 14:14:00 Mirta Correa [facility] HIGH RISK HPV-THIN PREP 2023-02-21 14:14:00 Mirta Correa [facility] TRICHOMONAS AMPLIFIED ASSAY 2023-02-21 14:14:00 Mirta Correa [facility] PAP SMEAR-LIQUID BASED-CP 2023-02-21 14:14:00 Mirta Correa [facility] SYPHILIS IGG/IGM 2023-02-21 14:14:00 Jose Correa [facility] GARDASIL 9 (HPV 9V) VACCINE 2023-02-21 13:56:00 Mirta Correa [facility] NO SHOW OR MISSED APPOINTMENT POLICY ACKNOWLEDGEMENT 2023-02-21 12:59:00 Doctor Unassigned, [place] [facility] ASSIGNMENT OF BENEFITS 2022-11-24 20:15:38 Docto r Unassigned, [place] [facility] POCT TEST 2022-07-17 16:33:00 [facility] 2022-07-17 16:15:00 Nannette Juan [facility] XR KNEE 3 VW LEFT 2022-03-19 14:44:16 Lottie Garvin [facility] POCT TEST 2022-03-19 14:34:00 Jennifer Garvin [facility] COMP. METABOLIC PANEL (37248) 2022-03-19 14:27:00 Lottie Garvin [facility] CBC WITH DIFF 2022-03-19 14:27:00 Lottie Garvin [facility] PROTHROMBIN TIME / INR 2022-03-19 14:27:00 Esdras Garvin [facility] ACTIVATED PARTIAL THRMPLAS REMEDIOS 2022-03-19 14:27:00 Lottie Garvin [facility] URINALYSIS 2022-03-19 14:27:00 [facility] CONSENT/REFUSAL FOR DIAGNOSIS AND TREATMENT 2022-03-19 13:50:09 Doctor Unassigned, [place] [facility] CONSENT/REFUSAL FOR DIAGNOSIS AND TREATMENT 2021-10-01 18:15:24 Doctor Unassigned, [place] [facility] INTUBATION 2020-08-04 19:57:02 Luzma Almanza [facility] ASSIGNMENT OF BENEFITS 2020-08-04 16:10:14 Docto r Unassigned, [place] [facility] DISCLOSURE AND CONSENT, MEDICAL AND SURGICAL PROCEDURES 2020-07-05 05:01:00 Doctor Unassigned, [place] [facility] HIV 1/2 AG-AB WITH REFLEX 2020-06-05 19:04:00 Casie Ortega [facility] GALV ONLY - SYPHILIS IGG/IGM 2020-06-05 19:04:00 Casie Ortega [facility] XR WRIST 3+ VW LEFT 2020-05-31 19:46:46 ElhamTorey salvador [facility] MR WRIST LEFT WO CONTRAST 2020-03-31 20:18:12 Kami Bernard [facility] REFERRAL- REQUEST/RESPONSE 2020-03-23 05:01:00 D octor Unassigned, [place] [facility] SEDIMENTATION RATE 2019-12-23 17:06:00 Kami Bernard [facility] CBC WITH DIFFERENTIAL 2019-12-23 17:06:00 Jose R Bernard [facility] ASSIGNMENT OF BENEFITS 2019-12-23 15:57:07 Docto r Unassigned, [place] [facility] DME/SUPPLY JUSTIFICATION 2019-05-27 05:01:00 Doc tor Unassigned, [place] [facility] Encounters Start Date/Time End Date/Time Encounter Type Admission Type Attending [facility] Facility Care Department Encounter ID Source 2021-08-24 19:16:32 Outpatient PAMELANANITOREY [facility] [id number] [facility] 2024-02-23 10:30:00 2024-02-23 10:30:00 Outpatient R DIANA MIRTA [facility] [id number] [facility] 2023-06-28 19:00:00 2023-06-28 19:00:00 Urgent Care Cj Tierney Unknown, Attending [facility] 1.2.840.114 350.1.13.10 4.2.7.2.[id number] [facility] 2023-06-28 19:00:00 2023-06-28 18:52:42 Outpatient R CJ TIERNEY [facility] [id number] [facility] 2023-03-07 11:40:00 2023-03-07 12:00:00 Urgent Care Regla Baez Unknown, Attending [facility] 1.2.840.114 350.1.13.10 4.2.7.2.[id number] [facility] 2023-03-07 11:40:00 2023-03-07 11:40:00 Outpatient R STEVENAUNREGLA [facility] [id number] [facility] 2023-02-25 00:00:00 2023-02-25 00:00:00 Telephone Mirta Correa IAFRANCIE SENIOR APPLICATIONS DEVELOPER [facility]ILD [facility] 1..840.114 350.1.13.10 4.2.7.2.[id number] [facility] 2023-02-25 00:00:00 2023-02-25 00:00:00 Telephone Mirta Correa [facility] [[email or web address]] SENIOR APPLICATIONS DEVELOPER [facility] CHILD [facility] 1..840.114 350.1.13.10 4.2.7.2.[id number] [facility] 2023-02-24 00:00:00 2023-02-24 00:00:00 Telephone Mirta Correa [facility] [[email or web address]] SENIOR APPLICATIONS DEVELOPER [facility] CHILD [facility] 1..840.114 350.1.13.10 4.2.7.2.[id number] 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 2023-02-21 08:15:00 2023-02-21 09:14:08 Outpatient R MIRTA CORREA [facility] [id number] 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 2023-02-21 00:00:00 2023-02-21 00:00:00 Orders Only Doctor Unassigned, [place] [facility] 1.2.840.114 350.1.13.10 4.2.7.2.[id number] [facility] 2023-02-19 00:00:00 2023-02-19 00:00:00 Case Management Jenniffer Hernandez 1.2.840.114 350.1.13.10 4.2.7.2.[id number] [facility] 2023-02-19 00:00:00 2023-02-19 00:00:00 Telephone Jenniffer Hernandez 1.2.840.114 350.1.13.10 4.2.7.2.[id number] [facility] 2022-12-04 00:00:00 2022-12-04 00:00:00 Telephone Latonia [facility] 1.2.840.114 350.1.13.10 4.2.7.2.[id number] [facility] 2022-11-24 14:20:00 2022-11-24 14:40:00 Urgent Care Latonia Curtis Unknown, Attending [facility] 1.2.840.114 350.1.13.10 4.2.7.2.[id number] [facility] 2022-11-24 14:20:00 2022-11-24 14:20:00 Outpatient R LATONIA CURTIS [facility] [id number] [facility] 2022-11-24 00:00:00 2022-11-24 00:00:00 Orders Only Doctor Unassigned, [place] [facility] 1..840.114 350.1.13.10 4.2.7.2.[id number] [facility] 2022-07-20 00:00:00 2022-07-20 00:00:00 Telephone [facility]?CHOLOUlysses [facility] 1.2.840.114 350.1.13.10 4.2.7.2.[id number] [facility] 2022-07-17 11:15:00 2022-07-17 11:29:07 Outpatient R DRAKE [facility] [id number] [facility] 2022-07-17 11:15:00 2022-07-17 11:29:07 [facility] 1.2.840.114 350.1.13.10 4.2.7.2.[id number] [facility] 2022-06-12 19:20:00 2022-06-12 19:47:11 Outpatient R TOREY CESAR [facility] [id number] [facility] 2022-06-12 19:20:00 2022-06-12 19:47:11 Urgent Care Torey Cesar Rania [facility] 1.2.840.114 350.1.13.10 4.2.7.2.[id number] [facility] 2022-04-14 12:40:00 2022-04-14 13:52:43 Outpatient R REGLA BAEZ [facility] [id number] [facility] 2022-04-14 12:40:00 2022-04-14 13:52:43 [facility] 1.2.840.114 350.1.13.10 4.2.7.2.[id number] [facility] 2022-04-03 14:20:00 2022-04-03 14:20:00 Urgent Care Bello Kurtz [facility] 1.2.840.114 350.1.13.10 4.2.7.2.[id number] [facility] 2022-04-03 14:20:00 2022-04-03 14:03:55 Outpatient R HOUSTON BELLO [facility] [id number] [facility] 2022-03-19 09:01:00 2022-03-19 11:10:00 Emergency X [facility] E[facility] [id number] [facility] 2022-03-19 09:01:00 2022-03-19 11:10:00 Emergency Lottie Garvin [facility] 1.2.840.114 350.1.13.10 4.2.7.2.[id number] [facility] 2022-03-19 00:00:00 2022-03-19 00:00:00 Patient Secure Msg Doctor Unassigned, [place] [facility] 1.2.840.114 350.1.13.10 4.2.7.2.[id number] [facility] 2022-03-19 00:00:00 2022-03-19 00:00:00 Orders Only Doctor Unassigned, [place] [facility] 1.2.840.114 350.1.13.10 4.2.7.2.[id number] [facility] 2021-10-01 15:00:00 2021-10-01 13:13:59 Outpatient NANNETTE MAGALLON [facility] [id number] [facility] 2021-10-01 12:15:40 2021-10-01 13:13:59 Urgent Care Nannette Juan [facility] 1.284.114 350.1.13.10 4.2.7.2.[id number] [facility] 2021-10-01 00:00:00 2021-10-01 00:00:00 Orders Only Doctor Unassigned, [place] [facility] 1.2.114 350.1.13.10 4.2.7.2.[id number] [facility] 2021-06-04 00:00:00 2021-06-04 00:00:00 Patient Secure Msg Ten Ortegaulysses Baird [facility] [[email or web address]] SENIOR APPLICATIONS DEVELOPER [facility] 1.84.114 350.1.13.10 4.2.7.2.[id number] [facility] 2021-01-15 00:00:00 2021-01-15 00:00:00 Patient Outreach Harjit Sneed Home [facility] [[email or web address] 1.2840.114 350.1.13.10 4.2.7.2.686 [id number] 2021-01-15 00:00:00 2021-01-15 00:00:00 Patient Outreach Harjit Sneed Home [facility] [[email or web address] 1.2840.114 350.1.13.10 4.2.7.2.[id number] [facility] 2020-10-16 00:00:00 2020-10-16 00:00:00 Patient Secure Msg Doctor Unassigned, [place] [facility] [[email or web address] 1.284.114 350.1.13.10 4.2.7.2.[id number] [facility] 2020-08-23 14:00:00 2020-08-23 14:00:00 Outpatient R FAILLACE, TOREY [facility] [id number] [facility] 2020-08-22 00:00:00 2020-08-22 00:00:00 Patient Secure Msg ElhamTorey salvador [facility] [[email or web address]] [facility] AT [facility] 1.2.840.114 350.1.13.10 4.2.7.2.[id number] [facility] 2020-08-09 00:00:00 2020-08-09 00:00:00 Telephone [facility] AT [facility] 1.2.840.114 350.1.13.10 4.2.7.2.[id number] [facility] 2020-08-09 00:00:00 2020-08-09 00:00:00 Telephone [facility] AT [facility] 1.2.840.114 350.1.13.10 4.2.7.2.686 [id number] 2020-08-04 11:12:00 2020-08-04 17:25:00 [facility] 1.2.840.114 350.1.13.10 4.2.7.2.[id number] [facility] 2020-08-04 11:12:00 2020-08-04 17:25:00 Hospital Encounter [facility] ([facility]) 1.2.840.114 350.1.13.10 4.2.7.2.686 [id number] 2020-08-04 14:32:00 2020-08-04 15:44:00 Anesthesia Ashley Alas David K [facility] [[email or web address] AT [facility] 1.2.840.114 350.1.13.10 4.2.7.2.[id number] [facility] 2020-08-04 14:32:00 2020-08-04 15:44:00 Anesthesia Ashley Alas David K [email or web address] AT [facility] 1.2.840.114 350.1.13.10 4.2.7.2.686 [id number] 2020-08-04 00:00:00 2020-08-04 00:00:00 Orders Only Doctor Unassigned, [place] [facility] 1.2840.114 350.1.13.10 4.2.7.2.[id number] [facility] 2020-08-04 00:00:00 2020-08-04 00:00:00 Orders Only Doctor Unassigned, [place] [facility] 1.2840.114 350.1.13.10 4.2.7.2.686 [id number] 2020-08-03 15:30:00 2020-08-03 15:30:00 Outpatient R [facility] [id number] [facility] 2020-08-03 14:49:11 2020-08-03 15:04:01 Laboratory Only Only, Adc Test [facility] 1.2840.114 350.1.13.10 4.2.7.2.[id number] [facility] 2020-08-03 14:49:11 2020-08-03 15:04:01 Laboratory Only Only, Adc Test [facility] 1.2.840.114 350.1.13.10 4.2.7.2.686 [id number] 2020-08-02 00:00:00 2020-08-02 00:00:00 Telephone [facility] AT [facility] 1.2.840.114 350.1.13.10 4.2.7.2.[id number] [facility] 2020-08-02 00:00:00 2020-08-02 00:00:00 Telephone [facility] AT [facility] 1.2840.114 350.1.13.10 4.2.7.2.[id number] [facility] 2020-07-21 00:00:00 2020-07-21 00:00:00 Patient Secure Msg Doctor Unassigned, [place] [facility] [[email or web address]] SENIOR APPLICATIONS DEVELOPER [facility]NAL & CHILD [facility] 1.2840.114 350.1.13.10 4.2.7.2.[id number] [facility] 2020-07-20 00:00:00 2020-07-20 00:00:00 Patient Secure Msg [facility] [place] AT [facility] 1.2840.114 350.1.13.10 4.2.7.2.[id number] [facility] 2020-07-19 00:00:00 2020-07-19 00:00:00 Telephone [facility] [place] AT [facility] 1.2840.114 350.1.13.10 4.2.7.2.[id number] [facility] 2020-07-07 00:00:00 2020-07-07 00:00:00 Patient Secure Msg Elhamricardo [facility] AT [facility] 1.2840.114 350.1.13.10 4.2.7.2.[id number] [facility] 2020-07-05 11:28:58 2020-07-05 11:38:58 Telemedici ne Visit [facility]ARE [facility] 1.2840.114 350.1.13.10 4.2.7.2.[id number] [facility] 2020-07-05 11:10:00 2020-07-05 11:10:00 Outpatient R TOREY WHYTE [facility] [id number] [facility] 2020-07-05 00:00:00 2020-07-05 00:00:00 Patient Secure Msg Doctor Unassigned, [place] [facility] [[email or web address]] SENIOR APPLICATIONS DEVELOPER [facility] MATERNAL & CHILD [facility] 1.84.114 350.1.13.10 4.2.7.2.[id number] [facility] 2020-07-05 00:00:00 2020-07-05 00:00:00 Orders Only Doctor Unassigned, [place] [facility] 1.284.114 350.1.13.10 4.2.7.2.[id number] [facility] 2020-06-21 13:30:00 2020-06-21 13:30:00 Outpatient R RUEL IQBAL [facility] [id number] [facility] 2020-06-20 00:00:00 2020-06-20 00:00:00 Patient Secure Msg Torey Whyte [facility] [[email or web address] [place] 1.840.114 350.1.13.10 4.2.7.2.[id number] [facility] 2020-06-19 16:19:58 2020-06-19 16:20:05 Crepe Sole Wire Brusher Visit Lab, Ang-Rmchp Casie Ortega [facility] [[email or web address]] SENIOR APPLICATIONS DEVELOPER [facility] MATERNAL & CHILD [facility] 1.840.114 350.1.13.10 4.2.7.2.[id number] [facility] 2020-06-19 15:40:00 2020-06-19 15:40:00 Outpatient R TOREY WHYTE [facility] [id number] [facility] 2020-06-19 15:15:00 2020-06-19 15:15:00 Outpatient CASIE NOEL [facility] [id number] [facility] 2020-06-19 00:00:00 2020-06-19 00:00:00 Telephone Torey Whyte [facility] [[email or web address] [place] 1.840.114 350.1.13.10 4.2.7.2.[id number] [facility] 2020-06-16 00:00:00 2020-06-16 00:00:00 Patient Secure Msg Doctor Unassigned, [place] [facility] [[email or web address]] SENIOR APPLICATIONS DEVELOPER [facility] 1.2.840.114 350.1.13.10 4.2.7.2.[id number] [facility] 2020-06-13 00:00:00 2020-06-13 00:00:00 Patient Secure Msg Doctor Unassigned, [place] [facility] [[email or web address]] SENIOR APPLICATIONS DEVELOPER [facility] 1.2.840.114 350.1.13.10 4.2.7.2.[id number] [facility] 2020-06-12 00:00:00 2020-06-12 00:00:00 Telephone Casie Ortega [facility] [[email or web address]] SENIOR APPLICATIONS DEVELOPER [facility] 1.2840.114 350.1.13.10 4.2.7.2.[id number] [facility] 2020-06-06 00:00:00 2020-06-06 00:00:00 Telephone Casie Ortega [facility] [[email or web address]] SENIOR APPLICATIONS DEVELOPER [facility] 1.2.840.114 350.1.13.10 4.2.7.2.[id number] [facility] 2020-06-05 12:48:43 2020-06-05 14:03:05 Office Visit Casie Ortega [facility] [[email or web address]] SENIOR APPLICATIONS DEVELOPER [facility] 1.2.840.114 350.1.13.10 4.2.7.2.[id number] [facility] 2020-06-05 12:45:00 2020-06-05 12:45:00 Outpatient R CASIE ORTEGA [facility] [id number] [facility] 2020-05-31 14:36:23 2020-05-31 23:59:00 Hospital Encounter Torey Whyte [facility] [[email or web address]] [facility] 1.840.114 350.1.13.10 4.2.7.2.[id number] [facility] 2020-05-31 14:17:05 2020-05-31 15:56:27 Office Visit Torey Whyte [facility] [[email or web address] 1.2840.114 350.1.13.10 4.2.7.2.[id number] [facility] 2020-05-31 14:30:00 2020-05-31 14:30:00 Outpatient R ELHAMTOREY SALVADOR [facility] [id number] [facility] 2020-04-24 00:00:00 2020-04-24 00:00:00 Patient Secure Msg Doctor Unassigned, [place] [facility] 1..840.114 350.1.13.10 4.2.7.2.[id number] [facility] 2020-04-12 13:00:00 2020-04-12 13:00:00 Outpatient R ELHAMRICARDO TOREY [facility] [id number] [facility] 2020-04-12 00:00:00 2020-04-12 00:00:00 Patient Secure Msg Doctor Unassigned, [place] [facility] [[email or web address]] SENIOR APPLICATIONS DEVELOPER [facility] 1..840.114 350.1.13.10 4.2.7.2.[id number] [facility] 2020-04-06 15:30:00 2020-04-06 15:30:00 Outpatient R KAMI BERNARD [facility] [id number] [facility] 2020-04-06 13:33:51 2020-04-06 14:02:35 Office Visit Kami Bernard [facility] 1..840.114 350.1.13.10 4.2.7.2.[id number] [facility] 2020-03-31 14:26:45 2020-03-31 23:59:00 Outpatient R KAMI BERNARD [facility] [id number] [facility] 2020-03-31 14:00:00 2020-03-31 23:59:00 Hospital Encounter Kami Bernard [facility] 1.2.840.114 350.1.13.10 4.2.7.2.[id number] [facility] 2020-03-23 00:00:00 2020-03-23 00:00:00 Orders Only Doctor Unassigned, [place] [facility] 1.2.840.114 350.1.13.10 4.2.7.2.[id number] [facility] 2020-03-22 00:00:00 2020-03-22 00:00:00 Telephone Kami Bernard [facility] [place] 1.2.840.114 350.1.13.10 4.2.7.2.[id number] [facility] 2020-03-16 14:10:26 2020-03-16 14:24:02 Office Visit Kami Bernard [facility] [place] 1.2.840.114 350.1.13.10 4.2.7.2.[id number] [facility] 2020-03-16 14:15:00 2020-03-16 14:15:00 Outpatient R KAMI BERNARD [facility] [id number] [facility] 2020-03-16 13:15:00 2020-03-16 13:15:00 Outpatient R KAMI BERNARD [facility] [id number] [facility] 2020-01-11 13:45:00 2020-01-11 13:45:00 Outpatient R JOHN RIVERA [facility] [id number] [facility] 2020-01-06 14:45:00 2020-01-06 14:45:00 Outpatient JOHN NAQVI [facility] [id number] [facility] 2019-12-30 10:15:00 2019-12-30 10:15:00 Outpatient R TERRY BERNARDIG [facility] [id number] [facility] 2019-12-30 00:00:00 2019-12-30 00:00:00 Patient Secure John Mcgovern [facility] 1.20.114 350.1.13.10 4.2.7.2.[id number] [facility] 2019-12-23 10:51:53 2019-12-23 11:06:53 [place] [employer] Brusher Visit Pob, Adc Lab Main Frantz Kami [facility] 1.2.114 350.1.13.10 4.2.7.2.[id number] [facility] 2019-12-23 09:56:57 2019-12-23 10:15:25 Office Visit Frantz Kami Ramos [facility] [place] 1.2.114 350.1.13.10 4.2.7.2.[id number] [facility] 2019-12-23 10:15:00 2019-12-23 10:15:00 Outpatient R KAMI BERNARD [facility] [id number] [facility] 2019-12-23 00:00:00 2019-12-23 00:00:00 Orders Only Doctor Unassigned, [place] [facility] 1.2.114 350.1.13.10 4.2.7.2.[id number] [facility] 2019-05-27 00:00:00 2019-05-27 00:00:00 Orders Only Doctor Unassigned, [place] [facility] 1.2840.114 350.1.13.10 4.2.7.2.[id number] [facility] 2019-05-27 00:00:00 2019-05-27 00:00:00 Telephone Haja Abraham [facility] [[email or web address]] Harjeet Li [facility] 1.2840.114 350.1.13.10 4.2.7.2.[id number] [facility] 2014-05-30 00:00:00 2014-05-30 00:00:00 Patient Secure Msg Doctor Unassigned, [place] [facility] 1.840.114 350.1.13.10 4.2.7.2.[id number] [facility] Results Test Description Test Time Test Comments Results Result Co mments Source [facility] SARS-COV-2 ANTIGEN (BINAX NOW)2023-06-28 23:40:00* Test Item Value Reference Range Interpretation Comme nts POCT SARS-COV-2 ANTIGEN (test code = 66021-6) Not Detected Not Detected On board controls acceptable with C Line (test code = 3574) Yes FIONA (test code = FIONA) accurate developme nt and interpretation of all internal controls Lab Interpretation (test code = 39056-8) Normal [facility] MOLECULAR [id number] 16:26:28* Test Item Value Reference Range Interpretation Comme nts POCT Molecular Strep (test c ode = 38047-5) Negative Negative Lab Interpretation (test cod e = 68942-9) [facility][id number] 16:53:38* Test Item Value Reference Range Interpretation Comme nts Syphilis IgG/IgM (test code = 35495-9) Non-reactive Non-reactive FIONA (test code = FIONA) Non-reactive - No serologic evidence of T. pallidum infection. Cannot exclude incubating or early syphilis. Submit a second specimen in 2-4 weeks if syphilis is clinically suspected. Equivocal - Further testing to follow. Reactive - Further testing to follow. Lab Interpretation (test code = 26603-6) [facility] WITH [id number] 05:24:24* Test Item Value Reference Range Interpretation Comme nts HIV Semi-quantitative (test code = 47942-6) 0.07 Negative FIONA (test code = FIONA) Non-reactive for HIV-1 antigen and HIV-1/HIV-2 antibodies. ?No laboratory evidence of HIV infection. ?Repeat in 2-4 weeks if acute HIV infection is suspected. [facility] [id number] 16:44:00* Test Item Value Reference Range Interpretation Comme nts POCT PREG (test code = 1605) Negative On board controls acceptable with C Line (test code = 3574) Yes POCT PREG LOT # (test code = 3575) [id number] POCT PREG TEST DATE (test code = 3576) FIONA (test code = FIONA) accurate developme nt and interpretation of all internal controls Lab Interpretation (test code = 94021-1) Normal [facility] URINALYSIS W SPECIFIC [id number] 16:16:00* Test Item Value Reference Range Interpretation [...] clear Lab Interpretation (test cod e = 96490-5) Normal [facility] WITH [id number] 15:36:23* Test Item Value Reference Range Interpretation Comme nts WBC (test code = 6690-2) See_Comment H [Automated messa ge] The system which generated this result transmitted reference range: 4.30 - 11.10 10*3/?L. The reference range was not used to interpret this result as normal/abnormal. RBC (test code = 789-8) See_Comment [Automated [employer] ge] The system which generated this result [...] 33.6 g/dL 31.6-35.1 RDW-SD (test code = 70642-7) 43.0 fL 39.0-49.9 RDW-CV (test code = 788-0) 13.8 % 12.0-15.5 PLT (test code = 777-3) See_Comment [Automated [employer] ge] The system which generated this result transmitted reference range: 166 - 358 10*3/?L. The reference range was not used to interpret this result as normal/abnormal. MPV (test code = 50925-6) 10.8 fL 9.5-12.9 NRBC/100 WBC (test code = 9166667328) See_Comment [Automated BUILD ssage] The system which generated this result transmitted reference range: 0.0 - 10.0 /100 WBCs. The reference range was not used to interpret this result as normal/abnormal. NRBC x10^3 (test code = 2021837223) <0.01 See_Comment [Automated [employer] ge] The system which generated this result transmitted reference range: 10*3/?L. The reference range was not used to interpret this result as normal/abnormal. GRAN MAT (NEUT) % (test code = 770-8) 59.6 % IMM GRAN % (test code = 3990527008) 0.40 % LYMPH % (test code = 736-9) 29.0 % MONO % (test code = 5905-5) 7.7 % EOS % (test code = 713-8) 2.9 % BASO % (test code = 706-2) 0.4 % GRAN MAT x10^3(ANC) (test code = 3935956123) 8.31 10*3/uL 1.88-7.09 H IMM GRAN x10^3 (test code = 8922822246) 0.06 10*3/uL 0.00-0.06 LYMPH x10^3 (test code = 731-0) 4.05 10*3/uL 1.32-3.29 H MONO x10^3 (test code = 742-7) 1.07 10*3/uL 0.33-0.92 H EOS x10^3 (test code = 711-2) 0.41 10*3/uL 0.03-0.39 H BASO x10^3 (test code = 704-7) 0.05 10*3/uL 0.01-0.07 REACT LYMPHS (test code = 9926592972) Rare Lab Interpretation (test code = 58404-3) Abnormal [facility] CenterACTIV[facility] PARTIAL THRMPLAS [id number] 15:06:58* Test Item Value Reference Range Interpretation Comme [facility] APTT Patient (test code = 3173-2) See_Comment [Automated message] The system which generated this result transmitted reference range: 23 - 38 Seconds. The reference range was not used to interpret this result as normal/abnormal. FIONA (test code = FIONA) The [facility] [[email or web address]] patient population mean normal value for aPTT is 30 seconds. Lab Interpretation (test code = 54708-2) Normal [facility] CenterPROTHROMBIN TIME / [id number] 15:04:57* Test Item Value Reference Range Interpretation Comme [facility] PROTIME PATIENT (test code = 5964-2) See_Comment [Automated messa ge] The system which generated this result transmitted reference range: 12.0 - 14.7 Seconds. The reference range was not used to interpret this result as normal/abnormal. INR (test code = 6301-6) Normal INR <1.1; Warfarin Therapeutic range 2.0 to 3.0 or 2.5 to 3.5, depending upon the indications. Lab Interpretation (test code = 76375-6) Normal [facility] CenterCOMP. METABOLIC PANEL (14467)2022-03-19 14:58:33* Test Item Value Reference Range Interpretation Comme nts NA (test code = 7809437487) 141 mmol/L 135-145 K (test code = 3729516492) 4.3 mmol/L 3.5-5.0 CL (test code = 0071521315) 107 mmol/L 98-108 CO2 TOTAL (test code = 2050280574) 24 mmol/L 23-31 AGAP (test code = 2585779764) 2-16 BUN (test code = 0031244969) 11 mg/dL 7-23 GLUCOSE (test code = 9998438624) 116 mg/dL 70-110 H CREATININE (test code = 6210113999) 0.71 mg/dL 0.50-1.04 TOTAL BILI (test code = 6877627457) 0.5 mg/dL 0.1-1.1 CALCIUM (test code = 9023711859) 9.3 mg/dL 8.6-10.6 T PROTEIN (test code = 5124184686) 7.0 g/dL 6.3-8.2 ALBUMIN (test code = 6964582173) 4.3 g/dL 3.5-5.0 ALK PHOS (test code = 9592149859) 63 U/L 34-122 ALTv (test code = 1742-6) 48 U/L 5-35 H AST(SGOT) (test code = 2306185884) 33 U/L 13-40 eGFR (test code = 4410799053) mL/min/1.73m2 FIONA (test code = FIONA) Association [...] imaging tests). Lab Interpretation (test code = 37685-7) Abnormal [facility] CenterPOCT [id number] 14:34:00* Test Item Value Reference Range Interpretation Comme nts POCT PREG (test code = 1605) negative On board controls acceptable with C Line (test code = 3574) present POCT PREG LOT # (test code = 3575) [id number] POCT PREG TEST DATE ( test code = 3576) 07-26-2023 Lab Interpretation (test cod e = 18224-9) Normal [facility] CenterIntubation2020-10-09 19:57:02HoLuzma Fairchild CRNA ? ? 08/04/2020 ?2:57 PMIntubationDate/Time: 08/04/2020 2:39 PMUrgency: elective Airway not difficult General Information and Staff Patient location during procedure: ORResident/MICA SPLITTER: Luzma Almanza CRNAPerformed: resident/MICA SPLITTER Indications and Patient ConditionIndications for airway management: [...] and BBS, teeth and lips per preop assessmentUnMemorial [facility] HospitalGALV ONLY - SYPHILIS IGG/IGM 2020-06-06 13:57:00* Test Item Value Reference Range Interpretation Comme [facility] Syphilis IgG/IgM (test code = 93196-9) Non-reactive Non-reactive FIONA (test code = FIONA) Non-reactive - No serologic evidence of T. pallidum infection. Cannot exclude incubating or early syphilis. Submit a second specimen in 2-4 weeks if syphilis is clinically suspected. Equivocal - Further testing to follow. Reactive - Further testing to follow. Lab Interpretation (test code = 56470-2) Normal [facility]2 AG-AB WITH [id number] 05:48:00* Test Item Value Reference Range Interpretation Comme [facility] HIV Semi-quantitative (test code = 13039-6) Negative Negative FIONA (test code = FIONA) Non-reactive for HIV-1 antigen and HIV-1/HIV-2 antibodies. ?No laboratory evidence of HIV infection. ?Repeat in 2-4 weeks if acute HIV infection is suspected. [facility] CenterXR WRIST 3+ VW [id number] 20:09:52 Osteonecrosis of the lunate. Nonspecific swelling [...] of the lunate.Nonspecific swelling over the medial forearm.[facility] CenterSEDIMENTATION [id number] 17:35:00* Test Item Value Reference Range Interpretation Comme [facility] ESR (test code = 0350499812) See_Comment [Automated [employer] Agn[employer]] The system which generated this result transmitted reference range: 0 - 20 mm/HR. The reference range was not used to interpret this result as normal/abnormal. Lab Interpretation (test code = 45386-4) Normal [facility] CenterSEDIMENTATION [id number] 17:35:00* Test Item Value Reference Range Interpretation Comme nts ESR (test code = 7180515039) See_Comment [Automated messa ge] The system which generated this result transmitted reference range: 0 - 20 mm/HR. The reference range was not used to interpret this result as normal/abnormal. Lab Interpretation (test code = 70499-3) Normal [facility] WITH [id number] 17:10:00* Test Item Value Reference Range Interpretation [...] g/dL 31.6-35.1 L RDW-SD (test code = 40240-8) 45.0 fL 39-49.9 RDW-CV (test code = 788-0) 14.9 % 12-15.5 PLT (test code = 777-3) See_Comment [Automated messa ge] The system which generated this result transmitted reference range: 166 - 358 10*3/?L. The reference range was not used to interpret this result as normal/abnormal. MPV (test code = 14768-2) 10.0 fL 9.5-12.9 NRBC/100 WBC (test code = 4495465015) See_Comment [Automated BUILD ssage] The system which generated this result transmitted reference range: 0.0 - 10.0 /100 WBCs. The reference range was not used to interpret this result as normal/abnormal. NRBC x10^3 (test code = 6999899085) <0.01 See_Comment [Automated messa ge] The system which generated this result transmitted reference range: 10*3/?L. The reference range was not used to interpret this result as normal/abnormal. GRAN MAT (NEUT) % (test code = 770-8) 60.7 % IMM GRAN % (test code = 0040635453) 0.50 % LYMPH % (test code = 736-9) 28.4 % MONO % (test code = 5905-5) 7.5 % EOS % (test code = 713-8) 2.5 % BASO % (test code = 706-2) 0.4 % GRAN MAT x10^3(ANC) (test code = 3594528782) 5.91 10*3/uL 1.88-7.09 IMM GRAN x10^3 (test code = 9864117805) 0.05 10*3/uL 0-0.06 LYMPH x10^3 (test code = 731-0) 2.76 10*3/uL 1.32-3.29 MONO x10^3 (test code = 742-7) 0.73 10*3/uL 0.33-0.92 EOS x10^3 (test code = 711-2) 0.24 10*3/uL 0.03-0.39 BASO x10^3 (test code = 704-7) 0.04 10*3/uL 0.01-0.07 Lab Interpretation (test code = 41125-5) Abnormal [facility] WITH [id number] 17:10:00* Test Item Value Reference Range Interpretation Comme nts WBC (test code = 6690-2) See_Comment [Automated messa ge] The system which generated this result transmitted reference range: 4.30 - 11.10 10*3/?L. The reference range was not used to interpret this result as normal/abnormal. RBC (test code = 789-8) See_Comment [Automated [employer] ge] The system which generated this result [...] g/dL 31.6-35.1 L RDW-SD (test code = 06388-9) 45.0 fL 39-49.9 RDW-CV (test code = 788-0) 14.9 % 12-15.5 PLT (test code = 777-3) See_Comment [Automated [employer] ge] The system which generated this result transmitted reference range: 166 - 358 10*3/?L. The reference range was not used to interpret this result as normal/abnormal. MPV (test code = 82253-8) 10.0 fL 9.5-12.9 NRBC/100 WBC (test code = 8160549695) See_Comment [Automated BUILD ssage] The system which generated this result transmitted reference range: 0.0 - 10.0 /100 WBCs. The reference range was not used to interpret this result as normal/abnormal. NRBC x10^3 (test code = 5351575435) <0.01 See_Comment [Automated [employer] ge] The system which generated this result transmitted reference range: 10*3/?L. The reference range was not used to interpret this result as normal/abnormal. GRAN MAT (NEUT) % (test code = 770-8) 60.7 % IMM GRAN % (test code = 3667384564) 0.50 % LYMPH % (test code = 736-9) 28.4 % MONO % (test code = 5905-5) 7.5 % EOS % (test code = 713-8) 2.5 % BASO % (test code = 706-2) 0.4 % GRAN MAT x10^3(ANC) (test code = 2844923215) 5.91 10*3/uL 1.88-7.09 IMM GRAN x10^3 (test code = 9268223854) 0.05 10*3/uL 0-0.06 LYMPH x10^3 (test code = 731-0) 2.76 10*3/uL 1.32-3.29 MONO x10^3 (test code = 742-7) 0.73 10*3/uL 0.33-0.92 EOS x10^3 (test code = 711-2) 0.24 10*3/uL 0.03-0.39 BASO x10^3 (test code = 704-7) 0.04 10*3/uL 0.01-0.07 Lab Interpretation (test code = 54316-7) Abnormal [facility]"
[2023-12-16 09:05] LABS: SARS-CoV-2 Antigen Rapid Res Negative (Negative)
--- NOTE | 2023-12-16 09:29 | EDPHYS ---
Physician Documentation [facility] Name: Priscilla Solo Age: 38 yrs Sex: Female : 1985 Arrival Date: 12/16/2023 Time: 08:12 Bed DIS1 Private MD: ED Physician Rainer Oliveros HPI: 12/16 09:30 This 38 yrs old Female presents to ER via Ambulatory with complaints of Flu Symptoms, ms3 Diarrhea. 09:30 38-year-old female past medical history of ADD/ADHD, anxiety, asthma, cardiomyopathy, ms3 congestive heart failure, hypertension presents to the emergency department for headache, cough, sneezing, diarrhea, nausea, vomiting that began on Friday. Patient states her discomfort is a 6/10. Patient denies any alleviating or inciting factors. Patient states she took Jax aspirin for back pain without relief.. Historical: - Allergies: 08:36 Lamictal; db 08:36 Latex; db 08:36 Morphine; db - PMHx: 08:36 ADD/ADHD; Anxiety; Asthma; cardiomyopathy; CHF; Hypertension; db - PSHx: 08:36 Appendectomy; section; L wrist SX x 2; tubal ligation; db - Immunization history:: Adult Immunizations up to date. - Social history:: Smoking status: Patient denies any tobacco usage or history of. ROS: 09:30 Cardiovascular: Negative for chest pain, and palpitations. Respiratory: Negative for ms3 shortness of breath, cough, wheezing, and pleuritic chest pain, 09:30 MS/Extremity: Negative for injury and deformity, Skin: Negative for injury, rash, and discoloration, 09:30 Constitutional: Positive for body aches, 09:30 Abdomen/GI: Positive for nausea, vomiting, and diarrhea, Exam: 09:30 Constitutional: This is a well developed, well nourished patient who is awake, alert, ms3 and in no acute distress. Head/Face: Normocephalic, atraumatic. ENT: Nares patent. No nasal discharge, no septal abnormalities noted. Oropharynx with no redness, swelling, or masses, exudates, or evidence of obstruction, uvula midline. Mucous membranes moist. Neck: Trachea midline, no cervical lymphadenopathy. Supple, full range of motion without nuchal rigidity, or vertebral point tenderness. No Meningismus. Chest/axilla: Normal chest wall appearance and motion. Nontender with no deformity. Cardiovascular: Regular rate and rhythm with a normal S1 and S2. No gallops, murmurs, or rubs. Normal PMI, no JVD. No pulse deficits. Respiratory: Lungs have equal breath sounds bilaterally, clear to auscultation and percussion. No rales, rhonchi or wheezes noted. No increased work of breathing, no retractions or nasal flaring. Abdomen/GI: Soft, non-tender, with normal bowel sounds. No distension or tympany. No guarding or rebound. No evidence of tenderness throughout. Skin: Warm, dry with normal turgor. Normal color with no rashes, no lesions, and no evidence of cellulitis. MS/ Extremity: Pulses equal, no cyanosis. Neurovascular intact. Full, normal range of motion. Vital Signs: 08:28 BP 136 / 75; Pulse 80; Resp 16; Temp 97.6; Pulse Ox 100% ; Weight 124.74 kg; Height 5 ll1 ft. 1 in. ; Pain 10/10; 08:28 Body Mass Index 51.96 (124.74 kg, 154.94 cm) ll1 08:28 Pain Scale: Adult ll1 MDM: 08:37 Patient medically screened. ms3 09:30 Differential diagnosis: viral gastroenteritis, Flu versus COVID. Data reviewed: vital ms3 signs, nurses notes, lab test result(s), and as a result, I will discharge patient. I considered the following discharge prescriptions or medication management in the emergency department Medications were administered in the Emergency Department. See MAR. Care significantly affected by the following chronic conditions: Hypertension, Congestive Heart Failure. Counseling: I had a detailed discussion with the patient and/or guardian regarding the historical points, exam findings, and any diagnostic results supporting the discharge/admit diagnosis, lab results, the need for outpatient follow up, to return to the emergency department if symptoms worsen or persist or if there are any questions or concerns that arise at home. Special discussion: I discussed with the patient/guardian in detail that at this point there is no indication for admission to the hospital. It is understood, however, that if the symptoms persist or worsen the patient needs to return immediately for re-evaluation. ED course: Flu and COVID with patient. Patient to follow-up with primary care physician 2 to 3 days. Patient understands and agrees with plan. All questions were answered. Return precautions discussed include worsening symptoms, or any other concerns. On reevaluation patient is alert and oriented x 4, no apparent distress, nontoxic-appearing, ambulatory emergency room, speaking full sentences. 12/16 08:36 Order name: SARS RAPID; Complete Time: 09:24 ms3 12/16 08:36 Order name: Flu; Complete Time: 09:24 ms3 Administered Medications: 08:44 Drug: Ibuprofen PO 600 mg PO once Route: PO; db 09:19 Drug: Ondansetron PO 4 mg PO once Route: PO; db Disposition Summary: 12/16/23 09:28 Discharge Ordered Notes: Location: Home ms3 Condition: Stable ms3 Diagnosis - Nausea with vomiting, unspecified ms3 - Cough ms3 - Myalgia ms3 Followup: ms3 - With: Juancarlos Frias DO - When: 2 - 3 days - Reason: Re-evaluation by your physician Discharge Instructions: - Discharge Summary Sheet ms3 - Nausea and Vomiting, Adult ms3 Forms: - Medication Reconciliation Form ms3 - Thank You Letter ms3 - Antibiotic Education ms3 - Prescription Opioid Use ms3 - Patient Portal Instructions ms3 - Leadership Thank You Letter ms3 Prescriptions: - ondansetron 4 mg Oral Tablet,disintegrating - take 1 tablet ORAL route every 8 hours; 15 tablet; Refills: 0, Product ms3 Selection Permitted Signatures: Dispatcher [employer] EDMS Gutierrez Palafox RN RN 1 Rainer Oliveros, DO DO ms3 Vy Peña RN RN db Corrections: (The following items were deleted from the chart) 09:36 09:30 Constitutional: This is a well developed, well nourished patient who is awake, ms3 alert, and in no acute distress. Head/Face: Normocephalic, atraumatic. ENT: Nares patent. No nasal discharge, no septal abnormalities noted. Tympanic membranes are normal and external auditory canals are clear. Oropharynx with no redness, swelling, or masses, exudates, or evidence of obstruction, uvula midline. Mucous membranes moist. Neck: Trachea midline, no cervical lymphadenopathy. Supple, full range of motion without nuchal rigidity, or vertebral point tenderness. No Meningismus. Chest/axilla: Normal chest wall appearance and motion. Nontender with no deformity. Cardiovascular: Regular rate and rhythm with a normal S1 and S2. No gallops, murmurs, or rubs. Normal PMI, no JVD. No pulse deficits. Respiratory: Lungs have equal breath sounds bilaterally, clear to auscultation and percussion. No rales, rhonchi or wheezes noted. No increased work of breathing, no retractions or nasal flaring. Abdomen/GI: Soft, non-tender, with normal bowel sounds. No distension or tympany. No guarding or rebound. No evidence of tenderness throughout. Skin: Warm, dry with normal turgor. Normal color with no rashes, no lesions, and no evidence of cellulitis. MS/ Extremity: Pulses equal, no cyanosis. Neurovascular intact. Full, normal range of motion. ms3
--- NOTE | 2023-12-16 09:29 | ER ---
Nurse's Notes [facility] Name: Priscilla Solo Age: 38 yrs Sex: Female : 1985 Arrival Date: 12/16/2023 Time: 08:12 Bed DIS1 Private MD: Diagnosis: Nausea with vomiting, unspecified;Cough;Myalgia Presentation: 12/16 08:28 Chief complaint: Patient states: Sore throat, nausea/diarrhea, cough, congestion, body ll1 aches began Friday. S.O. also sick with similar symptoms. Coronavirus screen: Client denies travel out of the [place] in the last 14 days. cough unrelated to allergies, diarrhea, fatigue, muscle pain, nausea, Client presents with at least one sign or symptom that may indicate coronavirus-19. Standard/surgical mask placed on the client. Ebola Screen: Patient denies travel to an Ebola-affected area in the 21 days before illness onset. Initial Sepsis Screen: Does the patient meet any 2 criteria? No. Patient's initial sepsis screen is negative. Does the patient have a suspected source of infection? No. Patient's initial sepsis screen is negative. Risk Assessment: Do you want to hurt yourself or someone else? Patient reports no desire to harm self or others. Onset of symptoms was December 14, 2023. 08:28 Method Of Arrival: Ambulatory ll1 08:28 Acuity: ERIC 4 ll1 Historical: - Allergies: 08:36 Lamictal; db 08:36 Latex; db 08:36 Morphine; db - PMHx: 08:36 ADD/ADHD; Anxiety; Asthma; cardiomyopathy; CHF; Hypertension; db - PSHx: 08:36 Appendectomy; section; L wrist SX x 2; tubal ligation; db - Immunization history:: Adult Immunizations up to date. - Social history:: Smoking status: Patient denies any tobacco usage or history of. Screenin:36 [facility] ED Fall Risk Assessment (Adult) History of falling in the last 3 months, db including since admission No falls in past 3 months (0 pts) Score/Fall Risk Level 0 - 2 = Low Risk Oriented to surroundings, Maintained a safe environment. Abuse screen: Denies threats or abuse. Denies injuries from another. Nutritional screening: No deficits noted. Tuberculosis screening: No symptoms or risk factors identified. Assessment: 08:35 Reassessment: Patient appears in no apparent distress at this time. Patient and/or db family updated on plan of care and expected duration. Pain level reassessed. Patient is alert, oriented x 3, equal unlabored respirations, skin warm/dry/pink. General: Appears in no apparent distress. comfortable, Behavior is calm, cooperative. Pain: Complains of pain in NASAL CONGESTION. Neuro: Level of Consciousness is awake, alert, obeys commands, Oriented to person, place, time, situation. Respiratory: Airway is patent Respiratory effort is even, unlabored, Respiratory pattern is regular, symmetrical. GI: Abdomen is round Reports diarrhea. EENT: Oral mucosa is moist. 09:19 Reassessment: Patient is alert/active/playful, equal unlabored respirations, skin db warm/dry/pink. PATIENT COMPLAINS OF NAUSEA. NOTIFIED DR. FALL. NEW ORDER FOR ZOFRAN 4MG ODT RECEIVED. Vital Signs: 08:28 BP 136 / 75; Pulse 80; Resp 16; Temp 97.6; Pulse Ox 100% ; Weight 124.74 kg; Height 5 ll1 ft. 1 in. ; Pain 10/10; 08:28 Body Mass Index 51.96 (124.74 kg, 154.94 cm) ll1 08:28 Pain Scale: Adult ll1 ED Course: 08:15 Patient arrived in ED. rg4 08:16 Rainer Fall DO is Attending Physician. ms3 08:17 Jayla Gay, RN is Primary Nurse. mb9 08:17 Arm band placed on. mb9 08:34 Vy Peña, RN is Primary Nurse. db 08:36 Patient has correct armband on for positive identification. Bed in low position. db 08:42 Flu Sent. mb9 08:43 SARS RAPID Sent. mb9 08:52 Triage completed. ll1 09:28 Juancarlos Frias DO is Referral Physician. ms3 09:41 No provider procedures requiring assistance completed. Patient did not have IV access mb9 during this emergency room visit. Administered Medications: 08:44 Drug: Ibuprofen PO 600 mg PO once Route: PO; db 09:19 Drug: Ondansetron PO 4 mg PO once Route: PO; db Medication: 08:36 VIS not applicable for this client. db Outcome: 09:28 Discharge ordered by . ms3 09:41 Discharged to home ambulatory, mb9 :41 Condition: stable :41 Discharge instructions given to patient, Instructed on discharge instructions, follow up and referral plans. Demonstrated understanding of instructions, follow-up care, medications, Prescriptions given X :41 Patient left the ED. mb9 Signatures: Latasha Markham rg4 Gutierrez Palafox RN RN ll1 Rainer Fall DO DO ms3 Vy Peña RN RN Jayla Gay RN RN mb9
[2023-12-16 09:54] VITALS: BP 136/75; TEMP 97.6; O2SAT 100
== END ==
LOC: ER 08:12
DX: R11.2 Nausea with vomiting, unspecified (principal); R05.9 Cough, unspecified; M79.10 Myalgia, unspecified site; R19.7 Diarrhea, unspecified; I50.9 Heart failure, unspecified; I10 Essential (primary) hypertension; Z11.52 Encounter for screening for COVID-19; Z88.5 Allergy status to narcotic agent; Z88.8 Allergy status to other drugs, medicaments and biological substances; Z91.040 Latex allergy status
CPT/HCPCS: 36415; 87804 ×2; 87811; Q0162

== ENCOUNTER → 2023-12-20 | Emergency (ER) | payer OTHER ==
[~2023-12-20] MED LIST changes: +CYCLOBENZAPRINE 10 MG TAB ONE; +HYDROMORPHONE HCL 1 MG/ML INJ ONE; -IBUPROFEN 200 MG TAB PO ONE; -IBUPROFEN 400 MG TAB ONE; +KETOROLAC 30 MG/ML INJ ONE; +METHOCARBAMOL 1,000 MG/10 ML VIAL ONE; +METHYLPREDNISOLONE 125 MG INJ ONE; +NA CHLORIDE 0.9% 1,000 ML ONE; +NA CHLORIDE 0.9% 100 ML ONE; -ONDANSETRON 4 MG (ODT) TAB ONE; +ONDANSETRON 4 MG/2 ML VIAL ONE
--- OUTSIDE RECORDS SUMMARY | 2023-12-20 14:19 | XMS REPORT | Continuity of Care Document ---
Author Name Unknown Address [address] [facility] [address] [place] [address] [facility] Address [address] [facility] [address] [place] [address] Care Team Providers Care Inspector Aligning Name Role Phone Marleny Floyd Primary Care Physician [phone] TOREY WHYTE Attending Clinician Unavailable MIRTA CORREA Attending Clinician Unavail able Cj Shields Attending Clinician [phone] Unknown, Attending Attending Clinician Unavailab CJ Cheng Attending Clinician Unavailable Regla Solano Attending Clinician [phone] REGLA BAEZ Attending Clinician Unavailab Mirta Hale Attending Clinician + Doctor Unassigned, [place] Attending Clinician U tere Hernandez RN, Jenniffer Ramos Attending Clinician UnaLatonia Nesbitt Attending Clinician [phone] Bello Arango Attending Clinician [phone] NANNETTE JUAN Attending Clinician Unavailable Nannette Juan MD Attending Clinician [phone] TOREY CESAR Attending Clinician Unavailable Torey Cesar PA-C Attending Clinician [phone] BELLO KURTZ Attending Clinician Unavailable LOTTIE GARVIN Attending Clinician Unavailable Lottie Garvin MD Attending Clinician [phone] Casie Whipple Attending Clinician UnaHarjit Balderas DO Attending Clinician [phone] Torey Whyte MD Attending Clinician [phone] Bishop GARVEY, Ashley Attending Clinician Unavailab Mirza Batista MD Attending Clinician [phone] Only, Adc Test Attending Clinician Unavailable RUEL IQBAL Attending Clinician Unavailable Lab, [facility] Attending Clinician Unavailable CASIE ORTEGA Attending Clinician Unavailab KAMI Castano Attending Clinician UnavailKami Llamas MD Attending Clinician [phone] JOHN RIVERA Attending Clinician Unavailable John Arenas Attending Clinician [phone] Pob, [facility] Main Attending Clinician UnavailHaja Morejon DO Attending Clinician [phone] TOREY WHYTE Admitting Clinician Unavailable LOTTEI GARVIN Admitting Clinician Unavailable Torey Whyte MD Admitting Clinician [phone] KAMI BERNARD Admitting Clinician Unavailron valencia Payers Payer Name Policy Type Policy Number Effective Date Expirati on Date Source [facility] [id number] 2012 00:00:00 Problems Condition Name Condition Details Condition Category Status Onset Date Resolution Date Last Treatment Date Treating Clinician Comments Source Encounter for contracept toñito management , unspecifie d type Encounter for contracept toñito management , unspecifie d type Disease Active 01-27 00:00: 00 [facility] Encounter for contracept toñito management , unspecifie d type Encounter for contracept toñito management , unspecifie d type Disease Active 01-27 00:00: 00 [facility] History of bilateral tubal ligation History of bilateral tubal ligation Disease Active 01-27 00:00: 00 [facility] Morbid obesity Morbid obesity Disease Active 01-27 00:00: 00 [facility] BMI 50.0-59.9, adult BMI 50.0-59.9, adult Disease Active 4-03 00:00: 00 [facility] Research study patient Research study patient Disease Active 12-12 00:00: 00 Overview: Formattin g of this note is different from the original. Patient is in the HCTZ study IRB # [id number] y questions please contact:Rachel Manley MD [phone] Hightower MD [phone] Frias MD [phone] facts Patient randomize d after delivery if they met inclusion criteria a nd accepted Medicati on comes from [facility] not pharmacy, [facility] Phone Number Ext. [phone] or cell Patient can start meds as soon as they tolerate PO One tab per day of either placebo or HCTZ Medicati on stays with patient Medicati on will appear on DEC, Nurses need to randy as given (No barcode) Medicati on needs to counted prior to discharge by research executive team leader All follow ups need to be on POD or PP day # 14 or more Patient needs to be reminded to bring their left over medicatio n and bottle back to their visit [facility] needs to be notified at time of discharge Please contact Dr. Manley with any Questions [facility] Pain pelvic Pain pelvic Disease Active 12-14 00:00: 00 [facility] Depression Depression Disease Active 05-18 00:00: 00 [facility] Asthma Asthma Disease Active 05-18 00:00: 00 Overview: Formattin g of this note might be different from the original. 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 [facility] Allergies, Adverse Reactions, Alerts Allergy Name Allergy Type Status Severity Reaction(s) Onset Date Inactive Date Treating Clinician Comments Source Morphine Drug Allergy Active Itching 2019-10 00:00: 00 [facility] MORPHINE DRUG INGREDI Active Low ITCHING 2019-10 00:00: 00 [facility] Latex Propensi ty to adverse reaction s Active Rash 12-11 00:00: 00 [facility] LATEX DRUG INGREDI Active Rash 12-11 00:00: 00 [facility] Social History Social Habit Start Date Stop Date Quantity Comments [facility] Exposure to SARS-CoV-2 (event) 2023-02-25 00:00:00 2023-03-07 11:03:00 Not sure [facility] History of Social function 2022-07-17 00:00:00 2022-07-17 00:00:00 [facility] Alcohol intake 2019-12-23 00:00:00 2019-12-23 00:00:00 0 /d [facility] Alcohol Comment 2014-05-18 00:00:00 2014-05-18 00:00:00 rarely [facility] Tobacco use and exposure 2014-05-18 00:00:00 2014-05-18 00:00:00 Smokeless tobacco non-user [facility] Sex Assigned At 1985 00:00:00 1985 00:00:00 [facility] Smoking Status Start Date Stop Date Source Never smoked tobacco [facility] Medications Ordered Medication Name Filled Medication Name Start Date Stop Date Current Medication? Ordering Clinician Indication Dosage Frequency Signature (SIG) Comments Components Source benzonatate 200 mg capsule 03-07 00:00: 00 03-18 04:59 :00 No [id number] 200mg Take 1 capsule by mouth 3 (three) times daily as needed for Cough for up to 10 days. [facility] fluconazole (DIFLUCAN) 150 mg tablet 03-07 00:00: 00 03-08 04:59 :00 No [id number] 150mg Take 1 tablet by mouth once now for 1 dose. [facility] metroNIDAZO LE 500 mg tablet 02-25 00:00: 00 02-26 04:59 :00 No [id number] 2000mg Take 4 tablets by mouth once now for 1 dose. [facility] metroNIDAZO LE 500 mg tablet 02-25 00:00: 00 02-26 04:59 :00 No [id number] 2000mg Take 4 tablets by mouth once now for 1 dose. [facility] metroNIDAZO LE 500 mg tablet 0 02-25 00:00: 00 02-26 04:59 :00 No [id number] 2000mg Take 4 tablets by mouth once now for 1 dose. [facility] metroNIDAZO LE 500 mg tablet 0 02-25 00:00: 00 02-26 04:59 :00 No [id number] 2000mg Take 4 tablets by mouth once now for 1 dose. [facility] ampicillin 500 mg capsule 0 5 00:00: 00 03-07 04:59 :00 No [id number] 500mg Take 1 capsule by mouth 4 (four) times daily for 10 days. [facility] ampicillin 500 mg capsule 0 02-24 00:00: 00 03-07 04:59 :00 No [id number] 500mg Take 1 capsule by mouth 4 (four) times daily for 10 days. [facility] ampicillin 500 mg capsule 2022-0 5 00:00: 00 03-07 04:59 :00 No [id number] 500mg Take 1 capsule by mouth 4 (four) times daily for 10 days. [facility] ampicillin 500 mg capsule 0 5 00:00: 00 03-07 04:59 :00 No [id number] 500mg Take 1 capsule by mouth 4 (four) times daily for 10 days. [facility] ampicillin 500 mg capsule 2022-0 02-24 00:00: 00 03-07 04:59 :00 No [id number] 500mg Take 1 capsule by mouth 4 (four) times daily for 10 days. [facility] ampicillin 500 mg capsule 2022-0 5 00:00: 00 03-07 04:59 :00 No [id number] 500mg Take 1 capsule by mouth 4 (four) times daily for 10 days. [facility] fluconazole (DIFLUCAN) 150 mg tablet 28 00:00: 00 02-22 04:59 :00 No [id number] 150mg Take 1 tablet by mouth once now for 1 dose. [facility] fluconazole (DIFLUCAN) 150 mg tablet 02-21 00:00: 00 02-22 04:59 :00 No [id number] 150mg Take 1 tablet by mouth once now for 1 dose. [facility] flu[facility] ([facility]IFLUCAN) 150 mg tablet 02-21 00:00: 00 02-22 04:59 :00 No [id number] 150mg Take 1 tablet by mouth once now for 1 dose. [facility] cetirizine (ZYRTEC) 10 mg tablet 11-24 00:00: 00 Yes [id number] 10mg Take 1 tablet by mouth in the morning. [facility] fluconazole (DIFLUCAN) 150 mg tablet 11-24 00:00: 00 Yes [id number] Take 1 tab by mouth now and repeat in 3 days [facility] Nebulizer Accessories (ADULT AEROSOL MASK) [facility] 11-24 00:00: 00 Yes [id number] Use as directed [facility] cetirizine (ZYRTEC) 10 mg tablet 11-24 00:00: 00 Yes [id number] 10mg Take 1 tablet by mouth in the morning. [facility] fluconazole (DIFLUCAN) 150 mg tablet 11-24 00:00: 00 Yes [id number] Take 1 tab by mouth now and repeat in 3 days [facility] Nebulizer Accessories (ADULT AEROSOL MASK) [facility] 11-24 00:00: 00 Yes [id number] Use as directed [facility] cetirizine (ZYRTEC) 10 mg tablet 11-24 00:00: 00 Yes [id number] 10mg Take 1 tablet by mouth in the morning. [facility] fluconazole (DIFLUCAN) 150 mg tablet 11-24 00:00: 00 Yes [id number] Take 1 tab by mouth now and repeat in 3 days [facility] Nebulizer Accessories (ADULT AEROSOL MASK) [facility] 11-24 00:00: 00 Yes [id number] Use as directed [facility] cetirizine (ZYRTEC) 10 mg tablet 11-24 00:00: 00 Yes [id number] 10mg Take 1 tablet by mouth in the morning. [facility] fluconazole (DIFLUCAN) 150 mg tablet 11-24 00:00: 00 Yes [id number] Take 1 tab by mouth now and repeat in 3 days [facility] Nebul[facility] Access[facility] (ADULT AEROSOL MASK) [facility] 11-24 00:00: 00 Yes [id number] Use as directed [facility] cetirizine (ZYRTEC) 10 mg tablet 11-24 00:00: 00 Yes [id number] 10mg Take 1 tablet by mouth in the morning. [facility] fluconazole (DIFLUCAN) 150 mg tablet 11-24 00:00: 00 Yes [id number] Take 1 tab by mouth now and repeat in 3 days [facility] Nebulizer Accessories (ADULT AEROSOL MASK) [facility] 11-24 00:00: 00 Yes [id number] Use as directed [facility] cetirizine (ZYRTEC) 10 mg tablet 11-24 00:00: 00 Yes [id number] 10mg Take 1 tablet by mouth in the morning. [facility] fluconazole (DIFLUCAN) 150 mg tablet 11-24 00:00: 00 Yes [id number] Take 1 tab by mouth now and repeat in 3 days [facility] Nebulizer Accessories (ADULT AEROSOL MASK) [facility] 11-24 00:00: 00 Yes [id number] Use as directed [facility] cetirizine (ZYRTEC) 10 mg tablet 11-24 00:00: 00 Yes [id number] 10mg Take 1 tablet by mouth in the morning. [facility] fluconazole (DIFLUCAN) 150 mg tablet 11-24 00:00: 00 Yes [id number] Take 1 tab by mouth now and repeat in 3 days [facility] Nebulizer Access[facility] (ADULT AEROSOL MASK) [facility] 11-24 00:00: 00 Yes [id number] Use as directed [facility] cetirizine (ZYRTEC) 10 mg tablet 11-24 00:00: 00 Yes [id number] 10mg Take 1 tablet by mouth in the morning. [facility] fluconazole (DIFLUCAN) 150 mg tablet 11-24 00:00: 00 Yes [id number] Take 1 tab by mouth now and repeat in 3 days [facility] Nebulizer Accessories (ADULT AEROSOL MASK) [facility] 11-24 00:00: 00 Yes [id number] Use as directed [facility] cetirizine (ZYRTEC) 10 mg tablet 11-24 00:00: 00 Yes [id number] 10mg Take 1 tablet by mouth in the morning. [facility] fluconazole (DIFLUCAN) 150 mg tablet 11-24 00:00: 00 Yes [id number] Take 1 tab by mouth now and repeat in 3 days [facility] Nebulizer Accessories (ADULT AEROSOL MASK) [facility] 11-24 00:00: 00 Yes [id number] Use as directed [facility] cetirizine (ZYRTEC) 10 mg tablet 11-24 00:00: 00 Yes [id number] 10mg Take 1 tablet by mouth in the morning. [facility] fluconazole (DIFLUCAN) 150 mg tablet 11-24 00:00: 00 Yes [id number] Take 1 tab by mouth now and repeat in 3 days [facility] Nebulizer Accessories (ADULT AEROSOL MASK) [facility] 11-24 00:00: 00 Yes [id number] Use as directed [facility] cetirizine (ZYRTEC) 10 mg tablet 11-24 00:00: 00 Yes [id number] 10mg Take 1 tablet by mouth in the morning. [facility] fluconazole (DIFLUCAN) 150 mg tablet 11-24 00:00: 00 Yes [id number] Take 1 tab by mouth now and repeat in 3 days [facility] Nebulizer Accessories (ADULT AEROSOL MASK) [facility] 11-24 00:00: 00 Yes [id number] Use as directed [facility] cetirizine (ZYRTEC) 10 mg tablet 11-24 00:00: 00 Yes [id number] 10mg Take 1 tablet by mouth in the morning. [facility] flucon[facility] (DIFLUCAN) 150 mg tablet 11-24 00:00: 00 Yes [id number] Take 1 tab by mouth now and repeat in 3 days [facility] Neb[facility] (ADULT AEROSOL MASK) [facility] 11-24 00:00: 00 Yes [id number] Use as directed [facility] cetirizine (ZYRTEC) 10 mg tablet 11-24 00:00: 00 Yes [id number] 10mg Take 1 tablet by mouth in the morning. [facility] fluconazole (DIFLUCAN) 150 mg tablet 11-24 00:00: 00 Yes [id number] Take 1 tab by mouth now and repeat in 3 days [facility] Nebulizer Accessories (ADULT AEROSOL MASK) [facility] 11-24 00:00: 00 Yes [id number] Use as directed [facility] cetirizine (ZYRTEC) 10 mg tablet 11-24 00:00: 00 Yes [id number] 10mg Take 1 tablet by mouth in the morning. [facility] fluconazole (DIFLUCAN) 150 mg tablet 11-24 00:00: 00 Yes [id number] Take 1 tab by mouth now and repeat in 3 days [facility] Nebulizer Accessories (ADULT AEROSOL MASK) [facility] 11-24 00:00: 00 Yes [id number] Use as directed [facility] cetirizine (ZYRTEC) 10 mg tablet 11-24 00:00: 00 Yes [id number] 10mg Take 1 tablet by mouth in the morning. [facility] fluconazole (DIFLUCAN) 150 mg tablet 11-24 00:00: 00 Yes [id number] Take 1 tab by mouth now and repeat in 3 days [facility] Nebulizer Accessories (ADULT AEROSOL MASK) [facility] 11-24 00:00: 00 Yes [id number] Use as directed [facility] cetirizine (ZYRTEC) 10 mg tablet 11-24 00:00: 00 Yes [id number] 10mg Take 1 tablet by mouth in the morning. [facility] fluconazole (DIFLUCAN) 150 mg tablet 11-24 00:00: 00 Yes [id number] Take 1 tab by mouth now and repeat in 3 days [facility] Nebulizer Accessories (ADULT AEROSOL MASK) [facility] 11-24 00:00: 00 Yes [id number] Use as directed [facility] cetirizine (ZYRTEC) 10 mg tablet 11-24 00:00: 00 Yes [id number] 10mg Take 1 tablet by mouth in the morning. [facility] fluconazole (DIFLUCAN) 150 mg tablet 11-24 00:00: 00 Yes [id number] Take 1 tab by mouth now and repeat in 3 days [facility] Nebulizer Accessories (ADULT AEROSOL MASK) [facility] 11-24 00:00: 00 Yes [id number] Use as directed [facility] cetirizine (ZYRTEC) 10 mg tablet 11-24 00:00: 00 Yes [id number] 10mg Take 1 tablet by mouth in the morning. [facility] fluconazole (DIFLUCAN) 150 mg tablet 11-24 00:00: 00 Yes [id number] Take 1 tab by mouth now and repeat in 3 days [facility] Nebulizer Accessories (ADULT AEROSOL MASK) [facility] 11-24 00:00: 00 Yes [id number] Use as directed [facility] albuterol 2.5 mg/0.5 mL nebulizer solution 11-24 00:00: 00 12-25 05:59 :00 No [id number] 2.5mg Inhale 0.5 mL every 6 (six) hours as needed for Wheezing for up to 30 days. [facility] amoxicillin -clavulanat e (AUGMENTIN) [id number] mg per tablet 1-29 00:00: 00 12-05 05:59 :00 No [id number] 1{tbl} Take 1 tablet by mouth in the morning and 1 tablet in the evening. Do all this for 10 days. [facility] sulfamethox azole-trime thoprim (BACTRIM DS) 800-160 mg per tablet 07-20 00:00: 00 07-28 04:59 :00 No [id number] 1{tbl} Take 1 tablet by mouth in the morning and 1 tablet in the evening. Do all this for 7 days. [facility] ondansetron 4 mg disintegrat ing tablet 07-17 00:00: 00 Yes [id number] 4mg Take 1 tablet by mouth every 8 (eight) hours as needed for Nausea and Vomiting (N/V). [facility] cetirizine (ZYRTEC) 10 mg tablet 07-17 00:00: 00 Yes [id number] 10mg Take 1 tablet by mouth in the morning. [facility] ondansetron 4 mg disintegrat ing tablet 07-17 00:00: 00 Yes [id number] 4mg Take 1 tablet by mouth every 8 (eight) hours as needed for Nausea and Vomiting (N/V). [facility] cetirizine (ZYRTEC) 10 mg tablet 07-17 00:00: 00 Yes [id number] 10mg Take 1 tablet by mouth in the morning. [facility] ondansetron 4 mg disintegrat ing tablet 07-17 00:00: 00 Yes [id number] 4mg Take 1 tablet by mouth every 8 (eight) hours as needed for Nausea and Vomiting (N/V). [facility] cetirizine (ZYRTEC) 10 mg tablet 07-17 00:00: 00 Yes [id number] 10mg Take 1 tablet by mouth in the morning. [facility] ondansetron 4 mg disintegrat ing tablet 07-17 00:00: 00 Yes [id number] 4mg Take 1 tablet by mouth every 8 (eight) hours as needed for Nausea and Vomiting (N/V). [facility] ondansetron 4 mg disintegrat ing tablet 07-17 00:00: 00 Yes [id number] 4mg Take 1 tablet by mouth every 8 (eight) hours as needed for Nausea and Vomiting (N/V). [facility] ondansetron 4 mg disintegrat ing tablet 07-17 00:00: 00 Yes [id number] 4mg Take 1 tablet by mouth every 8 (eight) hours as needed for Nausea and Vomiting (N/V). [facility] ondansetron 4 mg disintegrat ing tablet 07-17 00:00: 00 Yes [id number] 4mg Take 1 tablet by mouth every 8 (eight) hours as needed for Nausea and Vomiting (N/V). [facility] ondansetron 4 mg disintegrat ing tablet 07-17 00:00: 00 Yes [id number] 4mg Take 1 tablet by mouth every 8 (eight) hours as needed for Nausea and Vomiting (N/V). [facility] ondansetron 4 mg disintegrat ing tablet 07-17 00:00: 00 02-21 00:00 :00 No [id number] 4mg Take 1 tablet by mouth every 8 (eight) hours as needed for Nausea and Vomiting (N/V). [facility] ondansetron 4 mg disintegrat ing tablet 07-17 00:00: 00 02-21 00:00 :00 No [id number] 4mg Take 1 tablet by mouth every 8 (eight) hours as needed for Nausea and Vomiting (N/V). [facility] ondansetron 4 mg disintegrat ing tablet 07-17 00:00: 00 02-21 00:00 :00 No [id number] 4mg Take 1 tablet by mouth every 8 (eight) hours as needed for Nausea and Vomiting (N/V). [facility] cetirizine (ZYRTEC) 10 mg tablet 07-17 00:00: 00 11-24 00:00 :00 No [id number] 10mg Take 1 tablet by mouth in the morning. [facility] polymyxin B sulf-trimet hoprim 10,000 unit- 1 mg/mL ophthalmic drops 07-17 00:00: 00 07-25 04:59 :00 No [id number] 1[drp] Place 1 Drop in both eyes 4 (four) times daily for 7 days. [facility] polymyxin B sulf-trimet hoprim 10,000 unit- 1 mg/mL ophthalmic drops 07-17 00:00: 00 07-25 04:59 :00 No [id number] 1[drp] Place 1 Drop in both eyes 4 (four) times daily for 7 days. [facility] fluconazole (DIFLUCAN) 150 mg tablet 07-17 00:00: 00 07-18 04:59 :00 No [id number] 150mg Take 1 tablet by mouth once now for 1 dose. [facility] amoxicillin -clavulanat e (AUGMENTIN) 875-125 mg per tablet 8-17 00:00: 00 06-20 04:59 :00 No [id number] 1{tbl} Take 1 tablet by mouth in the morning and 1 tablet in the evening. Do all this for 7 days. [facility] benzonatate 200 mg capsule 04-14 00:00: 00 04-25 04:59 :00 No [id number] 200mg Take 1 capsule by mouth 3 (three) times daily as needed for Cough for up to 10 days. [facility] amoxicillin -clavulanat e (AUGMENTIN) 875-125 mg per tablet 19 00:00: 00 04-22 04:59 :00 No [id number] 1{tbl} Take 1 tablet by mouth 2 (two) times daily for 7 days. [facility] amoxicillin -clavulanat e 875-125 mg per tablet 6-08 00:00: 00 04-11 04:59 :00 No [id number] 1{tbl} Take 1 tablet by mouth 2 (two) times daily for 7 days. [facility] ibuprofen 600 mg tablet 03-19 00:00: 00 Yes [id number] 100 600mg Take 1 tablet by mouth every 6 (six) hours as needed for Pain (scale 4-6). [facility] ibuprofen 600 mg tablet 03-19 00:00: 00 Yes [id number] 100 600mg Take 1 tablet by mouth every 6 (six) hours as needed for Pain (scale 4-6). [facility] ibuprofen 600 mg tablet 03-19 00:00: 00 Yes [id number] 100 600mg Take 1 tablet by mouth every 6 (six) hours as needed for Pain (scale 4-6). [facility] ibuprofen 600 mg tablet 03-19 00:00: 00 Yes [id number] 100 600mg Take 1 tablet by mouth every 6 (six) hours as needed for Pain (scale 4-6). [facility] ibuprofen 600 mg tablet 03-19 00:00: 00 07-17 00:00 :00 No [id number] 100 600mg Take 1 tablet by mouth every 6 (six) hours as needed for Pain (scale 4-6). [facility] guaiFENesin 400 mg tablet 2020-10 00:00: 00 Yes [id number] 400mg Take 1 tablet by mouth every 4 (four) hours as needed for Cough. [facility] ondansetron 4 mg disintegrat ing tablet 2020-10 00:00: 00 Yes [id number] 4mg Take 1 tablet by mouth every 8 (eight) hours as needed for Nausea and Vomiting (N/V). [facility] albuterol 90 mcg/actuati on inhaler 2020-10 00:00: 00 Yes [id number] 2{puff} Inhale 2 Puffs every 6 (six) hours as needed for Wheezing or Shortness of Breath. [facility] budesonide- formoteroL (SYMBICORT) 160-4.5 mcg/actuati on inhaler 2020-10 00:00: 00 Yes [id number] 2{puff} Inhale 2 Puffs 2 (two) times daily. [facility] guaiFENesin 400 mg tablet 2020-10 00:00: 00 Yes [id number] 400mg Take 1 tablet by mouth every 4 (four) hours as needed for Cough. [facility] ondansetron 4 mg disintegrat ing tablet 2020-10 00:00: 00 Yes [id number] 4mg Take 1 tablet by mouth every 8 (eight) hours as needed for Nausea and Vomiting (N/V). [facility] albuterol 90 mcg/actuati on inhaler 2020-10 00:00: 00 Yes [id number] 2{puff} Inhale 2 Puffs every 6 (six) hours as needed for Wheezing or Shortness of Breath. [facility] budesonide- formoteroL (SYMBICORT) 160-4.5 mcg/actuati on inhaler 2020-10 00:00: 00 Yes [id number] 2{puff} Inhale 2 Puffs 2 (two) times daily. [facility] ondansetron 4 mg disintegrat ing tablet 2020-10 00:00: 00 Yes [id number] 4mg Take 1 tablet by mouth every 8 (eight) hours as needed for Nausea and Vomiting (N/V). [facility] albuterol 90 mcg/actuati on inhaler 2020-10 00:00: 00 Yes [id number] 2{puff} Inhale 2 Puffs every 6 (six) hours as needed for Wheezing or Shortness of Breath. [facility] budesonide- formoteroL (SYMBICORT) 160-4.5 mcg/actuati on inhaler 2020-10 00:00: 00 Yes [id number] 2{puff} Inhale 2 Puffs 2 (two) times daily. [facility] ondansetron 4 mg disintegrat ing tablet 2020-10 00:00: 00 Yes [id number] 4mg Take 1 tablet by mouth every 8 (eight) hours as needed for Nausea and Vomiting (N/V). [facility] albuterol 90 mcg/actuati on inhaler 2020-10 2 00:00: 00 Yes [id number] 2{puff} Inhale 2 Puffs every 6 (six) hours as needed for Wheezing or Shortness of Breath. [facility] budesonide- formoteroL (SYMBICORT) 160-4.5 mcg/actuati on inhaler 2020-10 2 00:00: 00 Yes [id number] 2{puff} Inhale 2 Puffs 2 (two) times daily. [facility] ondansetron 4 mg disintegrat ing tablet 2020-10 00:00: 00 Yes [id number] 4mg Take 1 tablet by mouth every 8 (eight) hours as needed for Nausea and Vomiting (N/V). [facility] albuterol 90 mcg/actuati on inhaler 2020-10 00:00: 00 Yes [id number] 2{puff} Inhale 2 Puffs every 6 (six) hours as needed for Wheezing or Shortness of Breath. [facility] budesonide- formoteroL (SYMBICORT) 160-4.5 mcg/actuati on inhaler 2020-10 00:00: 00 Yes [id number] 2{puff} Inhale 2 Puffs 2 (two) times daily. [facility] ondansetron 4 mg disintegrat ing tablet 2020-10 00:00: 00 Yes [id number] 4mg Take 1 tablet by mouth every 8 (eight) hours as needed for Nausea and Vomiting (N/V). [facility] albuterol 90 mcg/actuati on inhaler 2020-10 2 00:00: 00 Yes [id number] 2{puff} Inhale 2 Puffs every 6 (six) hours as needed for Wheezing or Shortness of Breath. [facility] budesonide- formoteroL (SYMBICORT) 160-4.5 mcg/actuati on inhaler 2020-10 2 00:00: 00 Yes [id number] 2{puff} Inhale 2 Puffs 2 (two) times daily. [facility] ondansetron 4 mg disintegrat ing tablet 2020-10 00:00: 00 Yes [id number] 4mg Take 1 tablet by mouth every 8 (eight) hours as needed for Nausea and Vomiting (N/V). [facility] albuterol 90 mcg/actuati on inhaler 2020-10 00:00: 00 Yes [id number] 2{puff} Inhale 2 Puffs every 6 (six) hours as needed for Wheezing or Shortness of Breath. [facility] budesonide- formoteroL (SYMBICORT) 160-4.5 mcg/actuati on inhaler 2020-10 00:00: 00 Yes [id number] 2{puff} Inhale 2 Puffs 2 (two) times daily. [facility] ondansetron 4 mg disintegrat ing tablet 2020-10 00:00: 00 Yes [id number] 4mg Take 1 tablet by mouth every 8 (eight) hours as needed for Nausea and Vomiting (N/V). [facility] albuterol 90 mcg/actuati on inhaler 2020-10 00:00: 00 Yes [id number] 2{puff} Inhale 2 Puffs every 6 (six) hours as needed for Wheezing or Shortness of Breath. [facility] budesonide- formoteroL (SYMBICORT) 160-4.5 mcg/actuati on inhaler 2020-10 00:00: 00 Yes [id number] 2{puff} Inhale 2 Puffs 2 (two) times daily. [facility] ondansetron 4 mg disintegrat ing tablet 2020-10 00:00: 00 Yes [id number] 4mg Take 1 tablet by mouth every 8 (eight) hours as needed for Nausea and Vomiting (N/V). [facility] albuterol 90 mcg/actuati on inhaler 2020-10 00:00: 00 Yes [id number] 2{puff} Inhale 2 Puffs every 6 (six) hours as needed for Wheezing or Shortness of Breath. [facility] budesonide- formoteroL (SYMBICORT) 160-4.5 mcg/actuati on inhaler 2020-10 2 00:00: 00 Yes [id number] 2{puff} Inhale 2 Puffs 2 (two) times daily. [facility] ondansetron 4 mg disintegrat ing tablet 2020-10 00:00: 00 Yes [id number] 4mg Take 1 tablet by mouth every 8 (eight) hours as needed for Nausea and Vomiting (N/V). [facility] albuterol 90 mcg/actuati on inhaler 2020-10 00:00: 00 Yes [id number] 2{puff} Inhale 2 Puffs every 6 (six) hours as needed for Wheezing or Shortness of Breath. [facility] budesonide- formoteroL (SYMBICORT) 160-4.5 mcg/actuati on inhaler 2020-10 00:00: 00 Yes [id number] 2{puff} Inhale 2 Puffs 2 (two) times daily. [facility] albuterol 90 mcg/actuati on inhaler 2020-10 00:00: 00 Yes [id number] 2{puff} Inhale 2 Puffs every 6 (six) hours as needed for Wheezing or Shortness of Breath. [facility] budesonide- formoteroL (SYMBICORT) 160-4.5 mcg/actuati on inhaler 2020-10 00:00: 00 Yes [id number] 2{puff} Inhale 2 Puffs 2 (two) times daily. [facility] albuterol 90 mcg/actuati on inhaler 2020-10 00:00: 00 Yes [id number] 2{puff} Inhale 2 Puffs every 6 (six) hours as needed for Wheezing or Shortness of Breath. [facility] budesonide- formoteroL (SYMBICORT) 160-4.5 mcg/actuati on inhaler 2020-10 00:00: 00 Yes [id number] 2{puff} Inhale 2 Puffs 2 (two) times daily. [facility] albuterol 90 mcg/actuati on inhaler 2020-10 2- 00:00: 00 Yes [id number] 2{puff} Inhale 2 Puffs every 6 (six) hours as needed for Wheezing or Shortness of Breath. [facility] budesonide- formoteroL (SYMBICORT) 160-4.5 mcg/actuati on inhaler 2020-10 2- 00:00: 00 Yes [id number] 2{puff} Inhale 2 Puffs 2 (two) times daily. [facility] albuterol 90 mcg/actuati on inhaler 2020-10 2- 00:00: 00 Yes [id number] 2{puff} Inhale 2 Puffs every 6 (six) hours as needed for Wheezing or Shortness of Breath. [facility] budesonide- formoteroL (SYMBICORT) 160-4.5 mcg/actuati on inhaler 2020-10 2- 00:00: 00 Yes [id number] 2{puff} Inhale 2 Puffs 2 (two) times daily. [facility] albuterol 90 mcg/actuati on inhaler 2020-10 2 00:00: 00 Yes [id number] 2{puff} Inhale 2 Puffs every 6 (six) hours as needed for Wheezing or Shortness of Breath. [facility] budesonide- formoteroL (SYMBICORT) 160-4.5 mcg/actuati on inhaler 2020-10 2- 00:00: 00 Yes [id number] 2{puff} Inhale 2 Puffs 2 (two) times daily. [facility] albuterol 90 mcg/actuati on inhaler 2020-10 2- 00:00: 00 Yes [id number] 2{puff} Inhale 2 Puffs every 6 (six) hours as needed for Wheezing or Shortness of Breath. [facility] budesonide- formoteroL (SYMBICORT) 160-4.5 mcg/actuati on inhaler 2020-10 2- 00:00: 00 Yes [id number] 2{puff} Inhale 2 Puffs 2 (two) times daily. [facility] albuterol 90 mcg/actuati on inhaler 2020-10 2- 00:00: 00 Yes [id number] 2{puff} Inhale 2 Puffs every 6 (six) hours as needed for Wheezing or Shortness of Breath. [facility] budesonide- formoteroL (SYMBICORT) 160-4.5 mcg/actuati on inhaler 2020-10 2- 00:00: 00 Yes [id number] 2{puff} Inhale 2 Puffs 2 (two) times daily. [facility] albuterol 90 mcg/actuati on inhaler 2020-10 2 00:00: 00 Yes [id number] 2{puff} Inhale 2 Puffs every 6 (six) hours as needed for Wheezing or Shortness of Breath. [facility] budesonide- formoteroL (SYMBICORT) 160-4.5 mcg/actuati on inhaler 2020-10 2 00:00: 00 Yes [id number] 2{puff} Inhale 2 Puffs 2 (two) times daily. [facility] albuterol 90 mcg/actuati on inhaler 2020-10 2 00:00: 00 Yes [id number] 2{puff} Inhale 2 Puffs every 6 (six) hours as needed for Wheezing or Shortness of Breath. [facility] budesonide- formoteroL (SYMBICORT) 160-4.5 mcg/actuati on inhaler 2020-10 2- 00:00: 00 Yes [id number] 2{puff} Inhale 2 Puffs 2 (two) times daily. [facility] albuterol 90 mcg/actuati on inhaler 2020-10 2- 00:00: 00 Yes [id number] 2{puff} Inhale 2 Puffs every 6 (six) hours as needed for Wheezing or Shortness of Breath. [facility] budesonide- formoteroL (SYMBICORT) 160-4.5 mcg/actuati on inhaler 2020-10 2- 00:00: 00 Yes [id number] 2{puff} Inhale 2 Puffs 2 (two) times daily. [facility] albuterol 90 mcg/actuati on inhaler 2020-10 2- 00:00: 00 Yes [id number] 2{puff} Inhale 2 Puffs every 6 (six) hours as needed for Wheezing or Shortness of Breath. [facility] budesonide- formoteroL (SYMBICORT) 160-4.5 mcg/actuati on inhaler 2020-10 2- 00:00: 00 Yes [id number] 2{puff} Inhale 2 Puffs 2 (two) times daily. [facility] albuterol 90 mcg/actuati on inhaler 2020-10 2 00:00: 00 Yes [id number] 2{puff} Inhale 2 Puffs every 6 (six) hours as needed for Wheezing or Shortness of Breath. [facility] budesonide- formoteroL (SYMBICORT) 160-4.5 mcg/actuati on inhaler 2020-10 2 00:00: 00 Yes [id number] 2{puff} Inhale 2 Puffs 2 (two) times daily. [facility] albuterol 90 mcg/actuati on inhaler 2020-10 2 00:00: 00 Yes [id number] 2{puff} Inhale 2 Puffs every 6 (six) hours as needed for Wheezing or Shortness of Breath. [facility] budesonide- formoteroL (SYMBICORT) 160-4.5 mcg/actuati on inhaler 2020-10 2- 00:00: 00 Yes [id number] 2{puff} Inhale 2 Puffs 2 (two) times daily. [facility] albuterol 90 mcg/actuati on inhaler 2020-10 2- 00:00: 00 Yes [id number] 2{puff} Inhale 2 Puffs every 6 (six) hours as needed for Wheezing or Shortness of Breath. [facility] budesonide- formoteroL (SYMBICORT) 160-4.5 mcg/actuati on inhaler 2020-10 2- 00:00: 00 Yes [id number] 2{puff} Inhale 2 Puffs 2 (two) times daily. [facility] benzonatate 100 mg capsule 2020-10 00:00: 00 Yes [id number] 200mg Take 2 capsules by mouth 2 (two) times daily as needed for Cough. [facility] guaiFENesin 400 mg tablet 2020-10 00:00: 00 Yes [id number] 400mg Take 1 tablet by mouth every 4 (four) hours as needed for Cough. [facility] ondansetron 4 mg disintegrat ing tablet 2020-10 00:00: 00 Yes [id number] 4mg Take 1 tablet by mouth every 8 (eight) hours as needed for Nausea and Vomiting (N/V). [facility] albuterol 90 mcg/actuati on inhaler 2020-10 00:00: 00 Yes [id number] 2{puff} Inhale 2 Puffs every 6 (six) hours as needed for Wheezing or Shortness of Breath. [facility] budesonide- formoteroL (SYMBICORT) 160-4.5 mcg/actuati on inhaler 2020-10 00:00: 00 Yes [id number] 2{puff} Inhale 2 Puffs 2 (two) times daily. [facility] benzonatate 100 mg capsule 2020-10 00:00: 00 Yes [id number] 200mg Take 2 capsules by mouth 2 (two) times daily as needed for Cough. [facility] guaiFENesin 400 mg tablet 2020-10 00:00: 00 Yes [id number] 400mg Take 1 tablet by mouth every 4 (four) hours as needed for Cough. [facility] ondansetron 4 mg disintegrat ing tablet 2020-10 00:00: 00 Yes [id number] 4mg Take 1 tablet by mouth every 8 (eight) hours as needed for Nausea and Vomiting (N/V). [facility] albuterol 90 mcg/actuati on inhaler 2020-10 00:00: 00 Yes [id number] 2{puff} Inhale 2 Puffs every 6 (six) hours as needed for Wheezing or Shortness of Breath. [facility] budesonide- formoteroL (SYMBICORT) 160-4.5 mcg/actuati on inhaler 2020-10 00:00: 00 Yes [id number] 2{puff} Inhale 2 Puffs 2 (two) times daily. [facility] benzonatate 100 mg capsule 2020-10 00:00: 00 Yes [id number] 200mg Take 2 capsules by mouth 2 (two) times daily as needed for Cough. [facility] guaiFENesin 400 mg tablet 2020-10 00:00: 00 Yes [id number] 400mg Take 1 tablet by mouth every 4 (four) hours as needed for Cough. [facility] ondansetron 4 mg disintegrat ing tablet 2020-10 00:00: 00 Yes [id number] 4mg Take 1 tablet by mouth every 8 (eight) hours as needed for Nausea and Vomiting (N/V). [facility] albuterol 90 mcg/actuati on inhaler 2020-10 00:00: 00 Yes [id number] 2{puff} Inhale 2 Puffs every 6 (six) hours as needed for Wheezing or Shortness of Breath. [facility] budesonide- formoteroL (SYMBICORT) 160-4.5 mcg/actuati on inhaler 2020-10 00:00: 00 Yes [id number] 2{puff} Inhale 2 Puffs 2 (two) times daily. [facility] benzonatate 100 mg capsule 2020-10 00:00: 00 Yes [id number] 200mg Take 2 capsules by mouth 2 (two) times daily as needed for Cough. [facility] guaiFENesin 400 mg tablet 2020-10 00:00: 00 Yes [id number] 400mg Take 1 tablet by mouth every 4 (four) hours as needed for Cough. [facility] ondansetron 4 mg disintegrat ing tablet 2020-10 00:00: 00 Yes [id number] 4mg Take 1 tablet by mouth every 8 (eight) hours as needed for Nausea and Vomiting (N/V). [facility] albuterol 90 mcg/actuati on inhaler 2020-10 00:00: 00 Yes [id number] 2{puff} Inhale 2 Puffs every 6 (six) hours as needed for Wheezing or Shortness of Breath. [facility] budesonide- formoteroL (SYMBICORT) 160-4.5 mcg/actuati on inhaler 2020-10 00:00: 00 Yes [id number] 2{puff} Inhale 2 Puffs 2 (two) times daily. [facility] ondansetron 4 mg disintegrat ing tablet 2020-10 00:00: 00 02-21 00:00 :00 No [id number] 4mg Take 1 tablet by mouth every 8 (eight) hours as needed for Nausea and Vomiting (N/V). [facility] ondansetron 4 mg disintegrat ing tablet 2020-10 00:00: 00 02-21 00:00 :00 No [id number] 4mg Take 1 tablet by mouth every 8 (eight) hours as needed for Nausea and Vomiting (N/V). [facility] ondansetron 4 mg disintegrat ing tablet 2020-10 00:00: 00 02-21 00:00 :00 No [id number] 4mg Take 1 tablet by mouth every 8 (eight) hours as needed for Nausea and Vomiting (N/V). [facility] guaiFENesin 400 mg tablet 2020-10 00:00: 00 07-17 00:00 :00 No [id number] 400mg Take 1 tablet by mouth every 4 (four) hours as needed for Cough. [facility] benzonatate 100 mg capsule 2020-10 00:00: 00 04-14 00:00 :00 No [id number] 200mg Take 2 capsules by mouth 2 (two) times daily as needed for Cough. [facility] amoxicillin -clavulanat e (AUGMENTIN) 875-125 mg per tablet 2020-10 00:00: 00 2021- 12-14 05:59 :00 No [id number] 1{tbl} Take 1 tablet by mouth 2 (two) times daily for 7 days. [facility] proMETHazin e (PHENERGAN) 25 mg in NaCl 0.9% (NS) 50 mL IV piggyback 2019-10 21:26: 00 08-04 21:35 :00 No 25mg 25 mg, IV Piggyback, ONCE, 1 dose, Fri08/04/20 at 1630, Routine, PACU [facility] FENTanyl PF (SUBLIMAZE (PF)) injection 25 mcg 2019-10 20:54: 14 Yes 25ug 25 mcg, Slow IV Push, Q5MIN PRN, 4 doses, Starting Fri08/04/20 at 1554, Until Discontinu ed, Routine, Pain (scale 7-10), PACU [facility] ketorolac (TORADOL) injection 30 mg 2019-10 20:54: 14 08-04 21:44 :00 No 30mg 30 mg, Slow IV Push, PRN, 1 dose, Starting Fri08/04/20 at 1554, Until Discontinu ed, Routine, Pain (scale 4-6), [facility] Rest[facility] medication : PACU RECOVERY [facility] ondansetron (ZOFRAN (PF)) injection 4 mg 2019-10 20:54: 14 08-04 21:01 :00 No 4mg 4 mg, Slow IV Push, PRN, 1 dose, Starting Fri08/04/20 at 1554, Until Fri08/04/20 at 1601, Routine, Nausea and Vomiting (N/V), PACU [facility] ondansetron (ZOFRAN (PF)) injection 2019-10 20:14: 00 08-04 20:54 :20 No ONCE INTRA PROCEDURE, Starting Fri08/04/20 at 1514, Until Fri08/04/20 at 1554, Routine, Intra-op [facility] bupivacaine -epinephrin e-pf (SENSORCAIN E W/EPINEPHRI NE) 0.25 %-1:200,000 injection 2019-10 20:12: 00 Yes PRN, Starting Fri08/04/20 at 1512, Until Discontinu ed, Routine, Intra-op [facility] PHENYLephri ne 1000 mcg/10 mL in 0.9% NaCl syringe 2019-10 20:05: 00 08-04 20:54 :20 No ONCE INTRA PROCEDURE, Starting Fri08/04/20 at 1505, Until Fri08/04/20 at 1554, Routine, Intra-op [facility] ePHEDrine 25 mg/5 mL (5 mg/mL) syringe 2019-10 20:00: 00 08-04 20:54 :20 No ONCE INTRA PROCEDURE, Starting Fri08/04/20 at 1500, Until Fri08/04/20 at 1554, Routine, Intra-op [facility] HYDROmorphO ne (DILAUDID) injection 2019-10 19:51: 00 08-04 20:54 :20 No ONCE INTRA PROCEDURE, Starting Fri08/04/20 at 1451, Until Fri08/04/20 at 1554, Routine, Intra-op [facility] ceFAZolin (ANCEF) injection 2019-10 19:44: 00 08-04 20:54 :20 No ONCE INTRA PROCEDURE, Starting Fri08/04/20 at 1444, Until Fri08/04/20 at 1554, ELAINE, Intra-op [facility] acetaminoph en ADULT (OFIRMEV) injection 2019-10 19:40: 00 08-04 20:54 :20 No Administer over 15 Minutes, ONCE INTRA PROCEDURE, Starting Fri08/04/20 at 1440, Until Fri08/04/20 at 1554, Routine, Intra-op [facility] propofoL IV infusion 2019-10 0 19:38: 00 08-04 20:54 :20 No ONCE INTRA PROCEDURE, Starting Fri08/04/20 at 1438, Until Fri08/04/20 at 1554, Routine, Intra-op [facility] lidocaine 1% (XYLOCAINE) 100 mg/10 mL (1 %) injection 2019-10 0 19:37: 00 08-04 20:54 :20 No ONCE INTRA PROCEDURE, Starting Fri08/04/20 at 1437, Until Fri08/04/20 at 1554, Routine, Intra-op [facility] FENTanyl PF (SUBLIMAZE (PF)) injection 2019-10 19:37: 00 08-04 20:54 :20 No ONCE INTRA PROCEDURE, Starting Fri08/04/20 at 1437, Until Fri08/04/20 at 1554, Routine, Intra-op [facility] midazolam (VERSED) injection 2019-10 19:32: 00 08-04 20:54 :20 No ONCE INTRA PROCEDURE, Starting Fri08/04/20 at 1432, Until Fri08/04/20 at 1554, Routine, Intra-op [facility] lactated ringers IV infusion 2019-10 18:28: 00 08-04 20:54 :20 No CONTINUOUS PRN, Starting Fri08/04/20 at 1328, Until Fri08/04/20 at 1554, Routine, Intra-op [facility] lactated ringers IV infusion 1,000 mL 2019-10 16:15: 00 08-04 18:29 :00 No 1000mL at 42 mL/hr, 1,000 mL, IV Infusion, ONCE, 1 dose, Fri08/04/20 at 1115, Routine, [facility]SU Pre-op [facility] gabapentin 300 mg capsule 2019-10 00:00: 00 10-04 05:59 :00 No [id number] 300mg Take 1 capsule by mouth 3 (three) times daily for 60 days. [facility] gabapentin 300 mg capsule 2019-10 00:00: 00 10-04 05:59 :00 No [id number] 300mg Take 1 capsule by mouth 3 (three) times daily for 60 days. [facility] gabapentin 300 mg capsule 2019-10 00:00: 00 10-04 05:59 :00 No [id number] 300mg Take 1 capsule by mouth 3 (three) times daily for 60 days. [facility] HYDROcodone -acetaminop hen 5-325 mg tablet 2019-10 00:00: 08-12 04:59 :00 No [id number] 1{tbl} Take 1 tablet by mouth every 6 (six) hours as needed for Pain (scale 4-6) for up to 7 days. Indication s: acute pain [facility] ondansetron 4 mg tablet 2019-10 0-09 00:00: 00 08-12 04:59 :00 No [id number] 4mg Take 1 tablet by mouth every 8 (eight) hours as needed for Nausea and Vomiting (N/V) for up to 7 days. [facility] HYDROcodone -acetaminop hen 5-325 mg tablet 2019-10 0- 00:00: 08-12 04:59 :00 No [id number] 1{tbl} Take 1 tablet by mouth every 6 (six) hours as needed for Pain (scale 4-6) for up to 7 days. Indication s: acute pain [facility] ondansetron 4 mg tablet 2019-10 0 00:00: 00 08-12 04:59 :00 No [id number] 4mg Take 1 tablet by mouth every 8 (eight) hours as needed for Nausea and Vomiting (N/V) for up to 7 days. [facility] nystatin-tr iamcinolone cream 2020-0 8-10 00:00: 00 Yes [id number] Apply to area(s) 3 (three) times daily. [facility] nystatin-tr iamcinolone cream 2020-0 8-10 00:00: 00 Yes [id number] Apply to area(s) 3 (three) times daily. [facility] nystatin-tr iamcinolone cream 2020-0 8-10 00:00: 00 Yes [id number] Apply to area(s) 3 (three) times daily. [facility] nystatin-tr iamcinolone cream 2020-0 8-10 00:00: 00 Yes [id number] Apply to area(s) 3 (three) times daily. [facility] nystatin-tr iamcinolone cream 2020-0 8-10 00:00: 00 Yes [id number] Apply to area(s) 3 (three) times daily. [facility] nystatin-tr iamcinolone cream 2020-0 8-10 00:00: 00 Yes [id number] Apply to area(s) 3 (three) times daily. [facility] nystatin-tr iamcinolone cream 2020-0 8-10 00:00: 00 Yes [id number] Apply to area(s) 3 (three) times daily. [facility] nystatin-tr iamcinolone cream 2020-0 8-10 00:00: 00 Yes [id number] Apply to area(s) 3 (three) times daily. [facility] nystatin-tr iamcinolone cream 2020-0 8-10 00:00: 00 Yes [id number] Apply to area(s) 3 (three) times daily. [facility] 2020-0 8-10 00:00: 00 Yes [id number] Apply to area(s) 3 (three) times daily. [facility] nystatin-tr iamcinolone cream 2020-0 8-10 00:00: 00 Yes [id number] Apply to area(s) 3 (three) times daily. [facility] nystatin-tr iamcinolone cream 2020-0 8-10 00:00: 00 Yes [id number] Apply to area(s) 3 (three) times daily. [facility] nystatin-tr iamcinolone cream 2020-0 8-10 00:00: 00 Yes [id number] Apply to area(s) 3 (three) times daily. [facility] nystatin-tr iamcinolone cream 2020-0 8-10 00:00: 00 Yes [id number] Apply to area(s) 3 (three) times daily. [facility] nystatin-tr iamcinolone cream 2020-0 8-10 00:00: 00 Yes [id number] Apply to area(s) 3 (three) times daily. [facility] nystatin-tr iamcinolone cream 2020-0 8-10 00:00: 00 Yes [id number] Apply to area(s) 3 (three) times daily. [facility] nystatin-tr iamcinolone cream 2020-0 8-10 00:00: 00 Yes [id number] Apply to area(s) 3 (three) times daily. [facility] nystatin-tr iamcinolone cream 2020-0 8-10 00:00: 00 Yes [id number] Apply to area(s) 3 (three) times daily. [facility] nystatin-tr iamcinolone cream 2020-0 8-10 00:00: 00 Yes [id number] Apply to area(s) 3 (three) times daily. [facility] nystatin-tr iamcinolone cream 2020-0 8-10 00:00: 00 Yes [id number] Apply to area(s) 3 (three) times daily. [facility] nystatin-tr iamcinolone cream 2020-0 8-10 00:00: 00 Yes [id number] Apply to area(s) 3 (three) times daily. [facility] nystatin-tr iamcinolone cream 2020-0 8-10 00:00: 00 Yes [id number] Apply to area(s) 3 (three) times daily. [facility] nystatin-tr iamcinolone cream 2020-0 8-10 00:00: 00 Yes [id number] Apply to area(s) 3 (three) times daily. [facility] nystatin-tr iamcinolone cream 2020-0 8-10 00:00: 00 Yes [id number] Apply to area(s) 3 (three) times daily. [facility] nystatin-tr iamcinolone cream 2020-0 8-10 00:00: 00 Yes [id number] Apply to area(s) 3 (three) times daily. [facility] nystatin-tr iamcinolone cream 2020-0 8-10 00:00: 00 Yes [id number] Apply to area(s) 3 (three) times daily. [facility] nystatin-tr iamcinolone cream 2020-0 8-10 00:00: 00 Yes [id number] Apply to area(s) 3 (three) times daily. [facility] nystatin-tr iamcinolone cream 2020-0 8-10 00:00: 00 Yes [id number] Apply to area(s) 3 (three) times daily. [facility] nystatin-tr iamcinolone cream 2020-0 8-10 00:00: 00 Yes [id number] Apply to area(s) 3 (three) times daily. [facility] nystatin-tr iamcinolone cream 2020-0 8-10 00:00: 00 Yes [id number] Apply to area(s) 3 (three) times daily. [facility] nystatin-tr iamcinolone cream 2020-0 8-10 00:00: 00 07-17 00:00 :00 No [id number] Apply to area(s) 3 (three) times daily. [facility] nystatin-tr iamcinolone cream 2020-0 8-10 00:00: 00 07-17 00:00 :00 No [id number] Apply to area(s) 3 (three) times daily. [facility] indomethaci n 50 mg capsule 2020-0 5-06 00:00: 00 Yes TK 1 C PO Q 6 H PRN [facility] indomethaci n 50 mg capsule 2020-0 5-06 00:00: 00 Yes TK 1 C PO Q 6 H PRN [facility] indomethaci n 50 mg capsule 2020-0 5-06 00:00: 00 Yes TK 1 C PO Q 6 H PRN [facility] indomethaci n 50 mg capsule 2020-0 5-06 00:00: 00 Yes TK 1 C PO Q 6 H PRN [facility] indomethaci n 50 mg capsule 2020-0 5-06 00:00: 00 Yes TK 1 C PO Q 6 H PRN [facility] indomethaci n 50 mg capsule 2020-0 5-06 00:00: 00 Yes TK 1 C PO Q 6 H PRN [facility] indomethaci n 50 mg capsule 2020-0 5-06 00:00: 00 Yes TK 1 C PO Q 6 H PRN [facility] indomethaci n 50 mg capsule 2020-0 5-06 00:00: 00 06-05 00:00 :00 No TK 1 C PO Q 6 H PRN [facility] indomethaci n 50 mg capsule 2019-0 03-01 00:00: 00 06-05 00:00 :00 No TK 1 C PO Q 6 H PRN [facility] indomethaci n 50 mg capsule 2019-0 03-01 00:00: 00 06-05 00:00 :00 No TK 1 C PO Q 6 H PRN [facility] PROAIR HFA 90 mcg/actuati on inhaler 2020-0 - 00:00: 00 Yes [facility] PROAIR HFA 90 mcg/actuati on inhaler 2020-0 02-02 00:00: 00 Yes [facility] PROAIR HFA 90 mcg/actuati on inhaler 2020-0 - 00:00: 00 Yes [facility] PROAIR HFA 90 mcg/actuati on inhaler 2020-0 - 00:00: 00 Yes [facility] PROAIR HFA 90 mcg/actuati on inhaler 2020-0 4- 00:00: 00 Yes [facility] PROAIR HFA 90 mcg/actuati on inhaler 2020-0 - 00:00: 00 Yes [facility] PROAIR HFA 90 mcg/actuati on inhaler 2020-0 4- 00:00: 00 Yes [facility] PROAIR HFA 90 mcg/actuati on inhaler 2020-0 4- 00:00: 00 Yes [facility] PROAIR HFA 90 mcg/actuati on inhaler 2020-0 4- 00:00: 00 Yes [facility] PROAIR HFA 90 mcg/actuati on inhaler 2020-0 4- 00:00: 00 Yes [facility] PROAIR HFA 90 mcg/actuati on inhaler 2020-0 4- 00:00: 00 Yes [facility] PROAIR HFA 90 mcg/actuati on inhaler 2020-0 4-09 00:00: 00 Yes [facility] PROAIR HFA 90 mcg/actuati on inhaler 2020-0 4-09 00:00: 00 Yes [facility] PROAIR HFA 90 mcg/actuati on inhaler 2020-0 4- 00:00: 00 Yes [facility] PROAIR HFA 90 mcg/actuati on inhaler 2020-0 02-02 00:00: 00 Yes [facility] PROAIR HFA 90 mcg/actuati on inhaler 2020-0 - 00:00: 00 Yes [facility] PROAIR HFA 90 mcg/actuati on inhaler 2020-0 - 00:00: 00 Yes [facility] PROAIR HFA 90 mcg/actuati on inhaler 2020-0 02-02 00:00: 00 Yes [facility] PROAIR HFA 90 mcg/actuati on inhaler 2020-0 02-02 00:00: 00 Yes [facility] PROAIR HFA 90 mcg/actuati on inhaler 2020-0 02-02 00:00: 00 Yes [facility] PROAIR HFA 90 mcg/actuati on inhaler 2020-0 02-02 00:00: 00 Yes [facility] PROAIR HFA 90 mcg/actuati on inhaler 2020-0 02-02 00:00: 00 Yes [facility] PROAIR HFA 90 mcg/actuati on inhaler 2020-0 02-02 00:00: 00 Yes [facility] PROAIR HFA 90 mcg/actuati on inhaler 2020-0 02-02 00:00: 00 Yes [facility] PROAIR HFA 90 mcg/actuati on inhaler 2020-0 02-02 00:00: 00 Yes [facility] PROAIR HFA 90 mcg/actuati on inhaler 2020-0 02-02 00:00: 00 Yes [facility] PROAIR HFA 90 mcg/actuati on inhaler 2020-0 02-02 00:00: 00 Yes [facility] PROAIR HFA 90 mcg/actuati on inhaler 2020-0 02-02 00:00: 00 Yes [facility] PROAIR HFA 90 mcg/actuati on inhaler 2020-0 - 00:00: 00 Yes [facility] PROAIR HFA 90 mcg/actuati on inhaler 2020-0 4- 00:00: 00 Yes [facility] PROAIR HFA 90 mcg/actuati on inhaler 2020-0 - 00:00: 00 Yes [facility] PROAIR HFA 90 mcg/actuati on inhaler 2020-0 - 00:00: 00 Yes [facility] PROAIR HFA 90 mcg/actuati on inhaler 2020-0 - 00:00: 00 Yes [facility] PROAIR HFA 90 mcg/actuati on inhaler 2020-0 02-02 00:00: 00 Yes [facility] PROAIR HFA 90 mcg/actuati on inhaler 2020-0 02-02 00:00: 00 Yes [facility] PROAIR HFA 90 mcg/actuati on inhaler 2020-0 02-02 00:00: 00 Yes [facility] azithromyci n 250 mg tablet 2020-0 02-02 00:00: 00 Yes [facility] SYMBICORT 160-4.5 mcg/actuati on inhaler 2020-0 02-02 00:00: 00 Yes [facility] PROAIR HFA 90 mcg/actuati on inhaler 2020-0 02-02 00:00: 00 Yes [facility] azithromyci n 250 mg tablet 2020-0 02-02 00:00: 00 Yes [facility] SYMBICORT 160-4.5 mcg/actuati on inhaler 2020-0 02-02 00:00: 00 Yes [facility] PROAIR HFA 90 mcg/actuati on inhaler 2020-0 - 00:00: 00 Yes [facility] azithromyci n 250 mg tablet 2020-0 02-02 00:00: 00 Yes [facility] SYMBICORT 160-4.5 mcg/actuati on inhaler 2020-0 02-02 00:00: 00 Yes [facility] PROAIR HFA 90 mcg/actuati on inhaler 2020-0 - 00:00: 00 Yes [facility] azithromyci n 250 mg tablet 2020-0 - 00:00: 00 Yes [facility] SYMBICORT 160-4.5 mcg/actuati on inhaler 2020-0 02-02 00:00: 00 Yes [facility] PROAIR HFA 90 mcg/actuati on inhaler 2020-0 02-02 00:00: 00 Yes [facility] azithromyci n 250 mg tablet 2020-0 - 00:00: 00 Yes [facility] SYMBICORT 160-4.5 mcg/actuati on inhaler 2020-0 02-02 00:00: 00 Yes [facility] PROAIR HFA 90 mcg/actuati on inhaler 2020-0 02-02 00:00: 00 Yes [facility] azithromyci n 250 mg tablet 2020-0 02-02 00:00: 00 Yes [facility] SYMBICORT 160-4.5 mcg/actuati on inhaler 2020-0 02-02 00:00: 00 Yes [facility] PROAIR HFA 90 mcg/actuati on inhaler 2020-0 02-02 00:00: 00 Yes [facility] azithromyci n 250 mg tablet 2020-0 02-02 00:00: 00 Yes [facility] SYMBICORT 160-4.5 mcg/actuati on inhaler 2020-0 02-02 00:00: 00 Yes [facility] PROAIR HFA 90 mcg/actuati on inhaler 2020-0 02-02 00:00: 00 Yes [facility] SYMBICORT 160-4.5 mcg/actuati on inhaler 2020-0 02-02 00:00: 00 Yes [facility] PROAIR HFA 90 mcg/actuati on inhaler 2020-0 02-02 00:00: 00 Yes [facility] SYMBICORT 160-4.5 mcg/actuati on inhaler 2020-0 02-02 00:00: 00 Yes [facility] PROAIR HFA 90 mcg/actuati on inhaler 2020-0 00:00: 00 Yes [facility] SYMBICORT 160-4.5 mcg/actuati on inhaler 2020-0 02-02 00:00: 00 Yes [facility] PROAIR HFA 90 mcg/actuati on inhaler 2020-0 02-02 00:00: 00 Yes [facility] SYMBICORT 160-4.5 mcg/actuati on inhaler 2020-0 02-02 00:00: 00 Yes [facility] PROAIR HFA 90 mcg/actuati on inhaler 2020-0 02-02 00:00: 00 Yes [facility] SYMBICORT 160-4.5 mcg/actuati on inhaler 2020-0 02-02 00:00: 00 Yes [facility] PROAIR HFA 90 mcg/actuati on inhaler 2020-0 02-02 00:00: 00 Yes [facility] SYMBICORT 160-4.5 mcg/actuati on inhaler 2020-0 02-02 00:00: 00 Yes [facility] PROAIR HFA 90 mcg/actuati on inhaler 2020-0 02-02 00:00: 00 Yes [facility] SYMBICORT 160-4.5 mcg/actuati on inhaler 2020-0 02-02 00:00: 00 Yes [facility] PROAIR HFA 90 mcg/actuati on inhaler 2020-0 02-02 00:00: 00 Yes [facility] SYMBICORT 160-4.5 mcg/actuati on inhaler 2020-0 02-02 00:00: 00 Yes [facility] PROAIR HFA 90 mcg/actuati on inhaler 2020-0 02-02 00:00: 00 Yes [facility] SYMBICORT 160-4.5 mcg/actuati on inhaler 2020-0 02-02 00:00: 00 Yes [facility] PROAIR HFA 90 mcg/actuati on inhaler 2020-0 02-02 00:00: 00 Yes [facility] SYMBICORT 160-4.5 mcg/actuati on inhaler 2020-0 02-02 00:00: 00 Yes [facility] PROAIR HFA 90 mcg/actuati on inhaler 2020-0 4- 00:00: 00 Yes [facility] SYMBICORT 160-4.5 mcg/actuati on inhaler 2020-0 4- 00:00: 00 Yes [facility] PROAIR HFA 90 mcg/actuati on inhaler 2020-0 - 00:00: 00 Yes [facility] SYMBICORT 160-4.5 mcg/actuati on inhaler 2020-0 4- 00:00: 00 Yes [facility] PROAIR HFA 90 mcg/actuati on inhaler 2020-0 - 00:00: 00 Yes [facility] SYMBICORT 160-4.5 mcg/actuati on inhaler 2020-0 - 00:00: 00 Yes [facility] PROAIR HFA 90 mcg/actuati on inhaler 2020-0 02-02 00:00: 00 Yes [facility] SYMBICORT 160-4.5 mcg/actuati on inhaler 2020-0 - 00:00: 00 Yes [facility] PROAIR HFA 90 mcg/actuati on inhaler 2020-0 02-02 00:00: 00 Yes [facility] SYMBICORT 160-4.5 mcg/actuati on inhaler 2020-0 02-02 00:00: 00 Yes [facility] PROAIR HFA 90 mcg/actuati on inhaler 2020-0 - 00:00: 00 Yes [facility] SYMBICORT 160-4.5 mcg/actuati on inhaler 2020-0 - 00:00: 00 Yes [facility] PROAIR HFA 90 mcg/actuati on inhaler 2020-0 - 00:00: 00 Yes [facility] SYMBICORT 160-4.5 mcg/actuati on inhaler 2020-0 4- 00:00: 00 Yes [facility] PROAIR HFA 90 mcg/actuati on inhaler 2020-0 4- 00:00: 00 Yes [facility] SYMBICORT 160-4.5 mcg/actuati on inhaler 2020-0 4- 00:00: 00 Yes [facility] PROAIR HFA 90 mcg/actuati on inhaler 2020-0 4- 00:00: 00 Yes [facility] SYMBICORT 160-4.5 mcg/actuati on inhaler 2020-0 - 00:00: 00 Yes [facility] PROAIR HFA 90 mcg/actuati on inhaler 2020-0 4- 00:00: 00 Yes [facility] SYMBICORT 160-4.5 mcg/actuati on inhaler 2020-0 4- 00:00: 00 Yes [facility] PROAIR HFA 90 mcg/actuati on inhaler 2020-0 - 00:00: 00 Yes [facility] SYMBICORT 160-4.5 mcg/actuati on inhaler 2020-0 02-02 00:00: 00 Yes [facility] PROAIR HFA 90 mcg/actuati on inhaler 2020-0 - 00:00: 00 Yes [facility] SYMBICORT 160-4.5 mcg/actuati on inhaler 2020-0 - 00:00: 00 Yes [facility] PROAIR HFA 90 mcg/actuati on inhaler 2020-0 02-02 00:00: 00 Yes [facility] SYMBICORT 160-4.5 mcg/actuati on inhaler 2020-0 02-02 00:00: 00 Yes [facility] PROAIR HFA 90 mcg/actuati on inhaler 2020-0 - 00:00: 00 Yes [facility] SYMBICORT 160-4.5 mcg/actuati on inhaler 2020-0 - 00:00: 00 Yes [facility] PROAIR HFA 90 mcg/actuati on inhaler 2020-0 4- 00:00: 00 Yes [facility] PROAIR HFA 90 mcg/actuati on inhaler 2020-0 4- 00:00: 00 Yes [facility] PROAIR HFA 90 mcg/actuati on inhaler 2020-0 4- 00:00: 00 Yes [facility] PROAIR HFA 90 mcg/actuati on inhaler 2020-0 4-09 00:00: 00 Yes [facility] SYMBICORT 160-4.5 mcg/actuati on inhaler 2020-0 4- 00:00: 00 10-01 00:00 :00 No [facility] SYMBICORT 160-4.5 mcg/actuati on inhaler 2019-0 - 00:00: 00 10-01 00:00 :00 No [facility] azithromyci n 250 mg tablet 2020-0 - 00:00: 00 06-05 00:00 :00 No [facility] azithromyci n 250 mg tablet 2020-0 02-02 00:00: 00 06-05 00:00 :00 No [facility] azithromyci n 250 mg tablet 2019-0 02-02 00:00: 00 06-05 00:00 :00 No [facility] amoxicillin -clavulanat e 875-125 mg per tablet 2020-0 2-10 00:00: 00 Yes TK 1 T PO BID [facility] amoxicillin -clavulanat e 875-125 mg per tablet 2020-0 2-10 00:00: 00 Yes TK 1 T PO BID [facility] amoxicillin -clavulanat e 875-125 mg per tablet 2020-0 2-10 00:00: 00 Yes TK 1 T PO BID [facility] amoxicillin -clavulanat e 875-125 mg per tablet 2020-0 2-10 00:00: 00 Yes TK 1 T PO BID [facility] amoxicillin -clavulanat e 875-125 mg per tablet 2020-0 2-10 00:00: 00 Yes TK 1 T PO BID [facility] amoxicillin -clavulanat e 875-125 mg per tablet 2020-0 2-10 00:00: 00 Yes TK 1 T PO BID [facility] amoxicillin -clavulanat e 875-125 mg per tablet 2020-0 2-10 00:00: 00 Yes TK 1 T PO BID [facility] amoxicillin -clavulanat e 875-125 mg per tablet 2020-0 2-10 00:00: 00 Yes TK 1 T PO BID [facility] amoxicillin -clavulanat e 875-125 mg per tablet 2020-0 2-10 00:00: 00 Yes TK 1 T PO BID [facility] amoxicillin -clavulanat e 875-125 mg per tablet 2020-0 2-10 00:00: 00 Yes TK 1 T PO BID [facility] amoxicillin -clavulanat e 875-125 mg per tablet 2020-0 2-10 00:00: 00 Yes TK 1 T PO BID [facility] amoxicillin -clavulanat e 875-125 mg per tablet 2020-0 2-10 00:00: 00 Yes TK 1 T PO BID [facility] amoxicillin -clavulanat e 875-125 mg per tablet 2020-0 2-10 00:00: 00 Yes TK 1 T PO BID [facility] amoxicillin -clavulanat e 875-125 mg per tablet 2020-0 2-10 00:00: 00 Yes TK 1 T PO BID [facility] amoxicillin -clavulanat e 875-125 mg per tablet 2020-0 2-10 00:00: 00 Yes TK 1 T PO BID [facility] amoxicillin -clavulanat e 875-125 mg per tablet 2020-0 2-10 00:00: 00 Yes TK 1 T PO BID [facility] amoxicillin -clavulanat e 875-125 mg per tablet 2020-0 2-10 00:00: 00 Yes TK 1 T PO BID [facility] amoxicillin -clavulanat e 875-125 mg per tablet 2020-0 2-10 00:00: 00 Yes TK 1 T PO BID [facility] amoxicillin -clavulanat e 875-125 mg per tablet 2020-0 2-10 00:00: 00 Yes TK 1 T PO BID [facility] amoxicillin -clavulanat e 875-125 mg per tablet 2020-0 2-10 00:00: 00 Yes TK 1 T PO BID [facility] amoxicillin -clavulanat e 875-125 mg per tablet 2020-0 2-10 00:00: 00 Yes TK 1 T PO BID [facility] amoxicillin -clavulanat e 875-125 mg per tablet 2020-0 2-10 00:00: 00 Yes TK 1 T PO BID [facility] amoxicillin -clavulanat e 875-125 mg per tablet 2020-0 2-10 00:00: 00 Yes TK 1 T PO BID [facility] amoxicillin -clavulanat e 875-125 mg per tablet 2020-0 2-10 00:00: 00 Yes TK 1 T PO BID [facility] amoxicillin -clavulanat e 875-125 mg per tablet 2020-0 2-10 00:00: 00 Yes TK 1 T PO BID [facility] amoxicillin -clavulanat e 875-125 mg per tablet 2020-0 2-10 00:00: 00 Yes TK 1 T PO BID [facility] amoxicillin -clavulanat e 875-125 mg per tablet 2020-0 2-10 00:00: 00 Yes TK 1 T PO BID [facility] amoxicillin -clavulanat e 875-125 mg per tablet 2020-0 2-10 00:00: 00 Yes TK 1 T PO BID [facility] amoxicillin -clavulanat e 875-125 mg per tablet 2020-0 2-10 00:00: 00 Yes TK 1 T PO BID [facility] amoxicillin -clavulanat e 875-125 mg per tablet 2020-0 2-10 00:00: 00 Yes TK 1 T PO BID [facility] amoxicillin -clavulanat e 875-125 mg per tablet 2020-0 2-10 00:00: 00 Yes TK 1 T PO BID [facility] amoxicillin -clavulanat e 875-125 mg per tablet 2020-0 2-10 00:00: 00 Yes TK 1 T PO BID [facility] amoxicillin -clavulanat e 875-125 mg per tablet 2020-0 2-10 00:00: 00 Yes TK 1 T PO BID [facility] amoxicillin -clavulanat e 875-125 mg per tablet 2020-0 2-10 00:00: 00 Yes TK 1 T PO BID [facility] amoxicillin -clavulanat e 875-125 mg per tablet 2020-0 2-10 00:00: 00 Yes TK 1 T PO BID [facility] amoxicillin -clavulanat e 875-125 mg per tablet 2020-0 2-10 00:00: 00 Yes TK 1 T PO BID [facility] amoxicillin -clavulanat e 875-125 mg per tablet 2020-0 2-10 00:00: 00 Yes TK 1 T PO BID [facility] amoxicillin -clavulanat e 875-125 mg per tablet 2020-0 2-10 00:00: 00 Yes TK 1 T PO BID [facility] amoxicillin -clavulanat e 875-125 mg per tablet 2020-0 2-10 00:00: 00 Yes TK 1 T PO BID [facility] amoxicillin -clavulanat e 875-125 mg per tablet 2020-0 2-10 00:00: 00 Yes TK 1 T PO BID [facility] amoxicillin -clavulanat e 875-125 mg per tablet 2020-0 2-10 00:00: 00 10-01 00:00 :00 No TK 1 T PO BID [facility] amoxicillin -clavulanat e 875-125 mg per tablet 2020-0 2-10 00:00: 00 10-01 00:00 :00 No TK 1 T PO BID [facility] norethindro ne-ethinyl estradiol 1-20 mg-mcg per tablet 2020-0 1-30 00:00: 00 Yes [facility] norethindro ne-ethinyl estradiol 1-20 mg-mcg per tablet 2020-0 1-30 00:00: 00 Yes [facility] norethindro ne-ethinyl estradiol 1-20 mg-mcg per tablet 2020-0 1-30 00:00: 00 Yes [facility] norethindro ne-ethinyl estradiol 1-20 mg-mcg per tablet 2019-0 1-30 00:00: 00 Yes [facility] norethindro ne-ethinyl estradiol 1-20 mg-mcg per tablet 2020-0 1-30 00:00: 00 Yes [facility] norethindro ne-ethinyl estradiol 1-20 mg-mcg per tablet 2020-0 30 00:00: 00 Yes [facility] norethindro ne-ethinyl estradiol 1-20 mg-mcg per tablet 2020-0 11-25 00:00: 00 Yes [facility] norethindro ne-ethinyl estradiol 1-20 mg-mcg per tablet 2019-0 11-25 00:00: 00 Yes [facility] norethindro ne-ethinyl estradiol 1-20 mg-mcg per tablet 2019-0 11-25 00:00: 00 Yes [facility] norethindro ne-ethinyl estradiol 1-20 mg-mcg per tablet 2019-0 11-25 00:00: 00 Yes [facility] norethindro ne-ethinyl estradiol 1-20 mg-mcg per tablet 2019-0 11-25 00:00: 00 Yes [facility] norethindro ne-ethinyl estradiol 1-20 mg-mcg per tablet 2019-0 11-25 00:00: 00 Yes [facility] norethindro ne-ethinyl estradiol 1-20 mg-mcg per tablet 2019-0 11-25 00:00: 00 Yes [facility] norethindro ne-ethinyl estradiol 1-20 mg-mcg per tablet 2019-0 11-25 00:00: 00 Yes [facility] norethindro ne-ethinyl estradiol 1-20 mg-mcg per tablet 2019-0 11-25 00:00: 00 Yes [facility] norethindro ne-ethinyl estradiol 1-20 mg-mcg per tablet 2019-0 11-25 00:00: 00 Yes [facility] norethindro ne-ethinyl estradiol 1-20 mg-mcg per tablet 2019-0 11-25 00:00: 00 Yes [facility] norethindro ne-ethinyl estradiol 1-20 mg-mcg per tablet 2019-0 11-25 00:00: 00 Yes [facility] norethindro ne-ethinyl estradiol 1-20 mg-mcg per tablet 2020-0 1-30 00:00: 00 Yes [facility] norethindro ne-ethinyl estradiol 1-20 mg-mcg per tablet 2019-0 11-25 00:00: 00 Yes [facility] norethindro ne-ethinyl estradiol 1-20 mg-mcg per tablet 2019-0 11-25 00:00: 00 Yes [facility] norethindro ne-ethinyl estradiol 1-20 mg-mcg per tablet 2019-0 11-25 00:00: 00 Yes [facility] norethindro ne-ethinyl estradiol 1-20 mg-mcg per tablet 2019-0 11-25 00:00: 00 Yes [facility] norethindro ne-ethinyl estradiol 1-20 mg-mcg per tablet 2019-0 11-25 00:00: 00 Yes [facility] norethindro ne-ethinyl estradiol 1-20 mg-mcg per tablet 2019-0 11-25 00:00: 00 Yes [facility] norethindro ne-ethinyl estradiol 1-20 mg-mcg per tablet 0 11-25 00:00: 00 Yes [facility] norethindro ne-ethinyl estradiol 1-20 mg-mcg per tablet 0 11-25 00:00: 00 Yes [facility] norethindro ne-ethinyl estradiol 1-20 mg-mcg per tablet 0 11-25 00:00: 00 Yes [facility] norethindro ne-ethinyl estradiol 1-20 mg-mcg per tablet 0 11-25 00:00: 00 Yes [facility] norethindro ne-ethinyl estradiol 1-20 mg-mcg per tablet 2019-0 11-25 00:00: 00 Yes [facility] norethindro ne-ethinyl estradiol 1-20 mg-mcg per tablet 0 11-25 00:00: 00 Yes [facility] norethindro ne-ethinyl estradiol 1-20 mg-mcg per tablet 2019-0 11-25 00:00: 00 Yes [facility] norethindro ne-ethinyl estradiol 1-20 mg-mcg per tablet 2020-0 30 00:00: 00 Yes [facility] norethindro ne-ethinyl estradiol 1-20 mg-mcg per tablet 2019-0 11-25 00:00: 00 Yes [facility] norethindro ne-ethinyl estradiol 1-20 mg-mcg per tablet 2019-0 11-25 00:00: 00 Yes [facility] norethindro ne-ethinyl estradiol 1-20 mg-mcg per tablet 2019-0 11-25 00:00: 00 Yes [facility] norethindro ne-ethinyl estradiol 1-20 mg-mcg per tablet 2019-0 11-25 00:00: 00 Yes [facility] norethindro ne-ethinyl estradiol 1-20 mg-mcg per tablet 2019-0 11-25 00:00: 00 Yes [facility] norethindro ne-ethinyl estradiol 1-20 mg-mcg per tablet 2019-0 11-25 00:00: 00 Yes [facility] norethindro ne-ethinyl estradiol 1-20 mg-mcg per tablet 2019-0 11-25 00:00: 00 Yes [facility] norethindro ne-ethinyl estradiol 1-20 mg-mcg per tablet 2019-0 11-25 00:00: 00 Yes [facility] norethindro ne-ethinyl estradiol 1-20 mg-mcg per tablet 2019-0 11-25 00:00: 00 Yes [facility] norethindro ne-ethinyl estradiol 1-20 mg-mcg per tablet 2019-0 11-25 00:00: 00 Yes [facility] norethindro ne-ethinyl estradiol 1-20 mg-mcg per tablet 2019-0 11-25 00:00: 00 Yes [facility] norethindro ne-ethinyl estradiol 1-20 mg-mcg per tablet 2019-0 11-25 00:00: 00 Yes [facility] norethindro ne-ethinyl estradiol 1-20 mg-mcg per tablet 2019-0 30 00:00: 00 Yes [facility] norethindro ne-ethinyl estradiol 1-20 mg-mcg per tablet 2020-0 130 00:00: 00 07-17 00:00 :00 No [facility] norethindro ne-ethinyl estradiol 1-20 mg-mcg per tablet 2020-0 30 00:00: 00 07-17 00:00 :00 No [facility] 1.5 mg tablet 2020-0 1-20 00:00: 00 Yes [facility] 1.5 mg tablet 2020-0 1-20 00:00: 00 Yes [facility] 1.5 mg tablet 2020-0 1-20 00:00: 00 Yes [facility] 1.5 mg tablet 2020-0 1-20 00:00: 00 Yes [facility] 1.5 mg tablet 2020-0 1-20 00:00: 00 Yes [facility] 1.5 mg tablet 2020-0 1-20 00:00: 00 Yes [facility] 1.5 mg tablet 2020-0 1-20 00:00: 00 Yes [facility] 1.5 mg tablet 2020-0 1-20 00:00: 00 Yes [facility] 1.5 mg tablet 2020-0 1-20 00:00: 00 Yes [facility] 1.5 mg tablet 2020-0 1-20 00:00: 00 Yes [facility] 1.5 mg tablet 2020-0 1-20 00:00: 00 Yes [facility] 1.5 mg tablet 2020-0 1-20 00:00: 00 Yes [facility] 1.5 mg tablet 2020-0 1-20 00:00: 00 Yes [facility] 1.5 mg tablet 2020-0 1-20 00:00: 00 Yes [facility] 1.5 mg tablet [...] 07-17 00:00 :00 No [facility] escitalopra m oxalate 20 mg tablet 2020-0 1-10 00:00: 00 Yes TK 1 T PO QD [facility] escitalopra m oxalate 20 mg tablet 2020-0 1-10 00:00: 00 Yes TK 1 T PO QD [facility] escitalop[facility] m oxalate 20 mg tablet 2020-0 1-10 00:00: 00 Yes TK 1 T PO QD [facility] escitalop[facility] m oxalate 20 mg tablet 2020-0 1-10 00:00: 00 Yes TK 1 T PO QD [facility] escitalop[facility] m oxalate 20 mg tablet 2020-0 1-10 00:00: 00 Yes TK 1 T PO QD [facility] escitalop[facility] m oxalate 20 mg tablet 2020-0 1-10 00:00: 00 Yes TK 1 T PO QD [facility] escitalop[facility] m oxalate 20 mg tablet 2020-0 1-10 00:00: 00 Yes TK 1 T PO QD [facility] escitalopra m oxalate 20 mg tablet 2020-0 1-10 00:00: 00 Yes TK 1 T PO QD [facility] escitalopra m oxalate 20 mg tablet 2020-0 1-10 00:00: 00 Yes TK 1 T PO QD [facility] escitalopra m oxalate 20 mg tablet 2020-0 1-10 00:00: 00 Yes TK 1 T PO QD [facility] escitalopra m oxalate 20 mg tablet 2020-0 1-10 00:00: 00 Yes TK 1 T PO QD [facility] escital[facility] m oxalate 20 mg tablet 2020-0 1-10 00:00: 00 Yes TK 1 T PO QD [facility]ital[facility] m oxalate 20 mg tablet 2020-0 1-10 00:00: 00 Yes TK 1 T PO QD [facility] escital[facility] m oxalate 20 mg tablet 2020-0 1-10 00:00: 00 Yes TK 1 T PO QD [facility]ital[facility] m oxalate 20 mg tablet 2020-0 1-10 00:00: 00 Yes TK 1 T PO QD [facility] escital[facility] m oxalate 20 mg tablet 2020-0 1-10 00:00: 00 Yes TK 1 T PO QD [facility] escital[facility] m oxalate 20 mg tablet 2020-0 1-10 00:00: 00 Yes TK 1 T PO QD [facility] escital[facility] m oxalate 20 mg tablet 2020-0 1-10 00:00: 00 Yes TK 1 T PO QD [facility] escitalopra m oxalate 20 mg tablet 2020-0 1-10 00:00: 00 Yes TK 1 T PO QD [facility] escital[facility] m oxalate 20 mg tablet 2020-0 1-10 00:00: 00 Yes TK 1 T PO QD [facility] escitalop[facility] m oxalate 20 mg tablet 2020-0 1-10 00:00: 00 Yes TK 1 T PO QD [facility] escitalopra m oxalate 20 mg tablet 2020-0 1-10 00:00: 00 Yes TK 1 T PO QD [facility] escitalopra m oxalate 20 mg tablet 2020-0 1-10 00:00: 00 Yes TK 1 T PO QD [facility] escitalopra m oxalate 20 mg tablet 2020-0 1-10 00:00: 00 Yes TK 1 T PO QD [facility] escitalopra m oxalate 20 mg tablet 2020-0 1-10 00:00: 00 Yes TK 1 T PO QD [facility] escitalopra m oxalate 20 mg tablet 2020-0 1-10 00:00: 00 Yes TK 1 T PO QD [facility] escitalop[facility] m oxalate 20 mg tablet 2020-0 1-10 00:00: 00 Yes TK 1 T PO QD [facility] escitalopra m oxalate 20 mg tablet 2020-0 1-10 00:00: 00 Yes TK 1 T PO QD [facility] escitalopra m oxalate 20 mg tablet 2020-0 1-10 00:00: 00 Yes TK 1 T PO QD [facility] escitalopra m oxalate 20 mg tablet 2020-0 1-10 00:00: 00 Yes TK 1 T PO QD [facility] escitalopra m oxalate 20 mg tablet 2020-0 1-10 00:00: 00 Yes TK 1 T PO QD [facility] escitalopra m oxalate 20 mg tablet 2020-0 1-10 00:00: 00 Yes TK 1 T PO QD [facility] escitalopra m oxalate 20 mg tablet 2020-0 1-10 00:00: 00 Yes TK 1 T PO QD [facility] escitalopra m oxalate 20 mg tablet 2020-0 1-10 00:00: 00 Yes TK 1 T PO QD [facility] escitalopra m oxalate 20 mg tablet 2020-0 1-10 00:00: 00 Yes TK 1 T PO QD [facility] escitalopra m oxalate 20 mg tablet 2020-0 1-10 00:00: 00 Yes TK 1 T PO QD [facility] escitalopra m oxalate 20 mg tablet 2020-0 1-10 00:00: 00 Yes TK 1 T PO QD [facility] escitalopra m oxalate 20 mg tablet 2020-0 1-10 00:00: 00 Yes TK 1 T PO QD [facility] escitalopra m oxalate 20 mg tablet 2020-0 1-10 00:00: 00 Yes TK 1 T PO QD [facility] escitalopra m oxalate 20 mg tablet 2020-0 1-10 00:00: 00 Yes TK 1 T PO QD [facility] escitalop[facility] m oxalate 20 mg tablet 2020-0 1-10 00:00: 00 Yes TK 1 T PO QD [facility] escitalop[facility] m oxalate 20 mg tablet 2020-0 1-10 00:00: 00 Yes TK 1 T PO QD [facility] escitalopra m oxalate 20 mg tablet 2020-0 1-10 00:00: 00 Yes TK 1 T PO QD [facility] escitalopra m oxalate 20 mg tablet 2020-0 1-10 00:00: 00 Yes TK 1 T PO QD [facility] escitalopra m oxalate 20 mg tablet 2020-0 1-10 00:00: 00 Yes TK 1 T PO QD [facility] escitalopra m oxalate 20 mg tablet 2020-0 1-10 00:00: 00 Yes TK 1 T PO QD [facility] escitalopra m oxalate 20 mg tablet 2020-0 1-10 00:00: 00 Yes TK 1 T PO QD [facility] escitalopra m oxalate 20 mg tablet 2020-0 1-10 00:00: 00 Yes TK 1 T PO QD [facility] escitalopra m oxalate 20 mg tablet 2020-0 1-10 00:00: 00 Yes TK 1 T PO QD [facility] escitalopra m oxalate 20 mg tablet 2020-0 1-10 00:00: 00 Yes TK 1 T PO QD [facility] escitalopra m oxalate 20 mg tablet 2020-0 1-10 00:00: 00 Yes TK 1 T PO QD [facility] escitalopra m oxalate 20 mg tablet 2020-0 1-10 00:00: 00 Yes TK 1 T PO QD [facility] escitalopra m oxalate 20 mg tablet 2020-0 1-10 00:00: 00 Yes TK 1 T PO QD [facility] escitalopra m oxalate 20 mg tablet 2020-0 1-10 00:00: 00 Yes TK 1 T PO QD [facility] escitalopra m oxalate 20 mg tablet 2020-0 1-10 00:00: 00 Yes TK 1 T PO QD [facility] escitalopra m oxalate 20 mg tablet 2020-0 1-10 00:00: 00 Yes TK 1 T PO QD [facility] escitalopra m oxalate 20 mg tablet 2020-0 1-10 00:00: 00 Yes TK 1 T PO QD [facility] escitalopra m oxalate 20 mg tablet 2020-0 1-10 00:00: 00 Yes TK 1 T PO QD [facility] escitalopra m oxalate 20 mg tablet 2020-0 1-10 00:00: 00 Yes TK 1 T PO QD [facility] escitalopra m oxalate 20 mg tablet 2020-0 1-10 00:00: 00 Yes TK 1 T PO QD [facility] escitalopra m oxalate 20 mg tablet 2020-0 1-10 00:00: 00 Yes TK 1 T PO QD [facility] escitalopra m oxalate 20 mg tablet 2020-0 1-10 00:00: 00 Yes TK 1 T PO QD [facility] escitalopra m oxalate 20 mg tablet 2020-0 1-10 00:00: 00 Yes TK 1 T PO QD [facility] escitalopra m oxalate 20 mg tablet 2020-0 1-10 00:00: 00 Yes TK 1 T PO QD [facility] escitalopra m oxalate 20 mg tablet 2020-0 1-10 00:00: 00 Yes TK 1 T PO QD [facility] escitalopra m oxalate 20 mg tablet 2020-0 1-10 00:00: 00 Yes TK 1 T PO QD [facility] escitalopra m oxalate 20 mg tablet 2020-0 1-10 00:00: 00 Yes TK 1 T PO QD [facility] escitalopra m oxalate 20 mg tablet 2020-0 1-10 00:00: 00 Yes TK 1 T PO QD [facility] escitalopra m oxalate 20 mg tablet 2020-0 1-10 00:00: 00 Yes TK 1 T PO QD [facility] escitalopra m oxalate 20 mg tablet 2020-0 1-10 00:00: 00 Yes TK 1 T PO QD [facility] escitalopra m oxalate 20 mg tablet 2020-0 1-10 00:00: 00 Yes TK 1 T PO QD [facility] escitalopra m oxalate 20 mg tablet 2020-0 1-10 00:00: 00 Yes TK 1 T PO QD [facility] escitalopra m oxalate 20 mg tablet 2020-0 1-10 00:00: 00 Yes TK 1 T PO QD [facility] escitalopra m oxalate 20 mg tablet 2020-0 1-10 00:00: 00 Yes TK 1 T PO QD [facility] escitalopra m oxalate 20 mg tablet 2020-0 1-10 00:00: 00 Yes TK 1 T PO QD [facility] escitalopra m oxalate 20 mg tablet 2020-0 1-10 00:00: 00 Yes TK 1 T PO QD [facility] escitalopra m oxalate 20 mg tablet 2020-0 1-10 00:00: 00 Yes TK 1 T PO QD [facility] escitalopra m oxalate 20 mg tablet 2020-0 1-10 00:00: 00 Yes TK 1 T PO QD [facility] escitalopra m oxalate 20 mg tablet 2020-0 1-10 00:00: 00 Yes TK 1 T PO QD [facility] traZODONE 50 mg tablet 2019-0 5-09 00:00: 00 Yes TAKE 1 TABLET BY MOUTH EVERYDAY AT BEDTIME [facility] escitalopra m oxalate 10 mg tablet 0 03-04 00:00: 00 Yes TAKE 1 TABLET BY MOUTH EVERY MORNING [facility] traZODONE 50 mg tablet 0 03-04 00:00: 00 Yes TAKE 1 TABLET BY MOUTH EVERYDAY AT BEDTIME [facility] escitalopra m oxalate 10 mg tablet 0 03-04 00:00: 00 Yes TAKE 1 TABLET BY MOUTH EVERY MORNING [facility] traZODONE 50 mg tablet 0 03-04 00:00: 00 Yes TAKE 1 TABLET BY MOUTH EVERYDAY AT BEDTIME [facility] traZODONE 50 mg tablet 0 03-04 00:00: 00 Yes TAKE 1 TABLET BY MOUTH EVERYDAY AT BEDTIME [facility] escitalopra m oxalate 10 mg tablet 03-04 00:00: 00 Yes TAKE 1 TABLET BY MOUTH EVERY MORNING [facility] traZODONE 50 mg tablet 0 03-04 00:00: 00 Yes TAKE 1 TABLET BY MOUTH EVERYDAY AT BEDTIME [facility] traZODONE 50 mg tablet 0 03-04 00:00: 00 Yes TAKE 1 TABLET BY MOUTH EVERYDAY AT BEDTIME [facility] traZODONE 50 mg tablet 0 03-04 00:00: 00 Yes TAKE 1 TABLET BY MOUTH EVERYDAY AT BEDTIME [facility] traZODONE 50 mg tablet 0 03-04 00:00: 00 Yes TAKE 1 TABLET BY MOUTH EVERYDAY AT BEDTIME [facility] traZODONE 50 mg tablet 0 03-04 00:00: 00 Yes TAKE 1 TABLET BY MOUTH EVERYDAY AT BEDTIME [facility] traZODONE 50 mg tablet 0 03-04 00:00: 00 Yes TAKE 1 TABLET BY MOUTH EVERYDAY AT BEDTIME [facility] traZODONE 50 mg tablet 0 03-04 00:00: 00 Yes TAKE 1 TABLET BY MOUTH EVERYDAY AT BEDTIME [facility] traZODONE 50 mg tablet 0 03-04 00:00: 00 Yes TAKE 1 TABLET BY MOUTH EVERYDAY AT BEDTIME [facility] escitalopra m oxalate 10 mg tablet 03-04 00:00: 00 Yes TAKE 1 TABLET BY MOUTH EVERY MORNING [facility] traZODONE 50 mg tablet 03-04 00:00: 00 Yes TAKE 1 TABLET BY MOUTH EVERYDAY AT BEDTIME [facility] traZODONE 50 mg tablet 03-04 00:00: 00 Yes TAKE 1 TABLET BY MOUTH EVERYDAY AT BEDTIME [facility] traZODONE 50 mg tablet 0 03-04 00:00: 00 Yes TAKE 1 TABLET BY MOUTH EVERYDAY AT BEDTIME [facility] traZODONE 50 mg tablet 03-04 00:00: 00 Yes TAKE 1 TABLET BY MOUTH EVERYDAY AT BEDTIME [facility] traZODONE 50 mg tablet 03-04 00:00: 00 Yes TAKE 1 TABLET BY MOUTH EVERYDAY AT BEDTIME [facility] traZODONE 50 mg tablet 03-04 00:00: 00 Yes TAKE 1 TABLET BY MOUTH EVERYDAY AT BEDTIME [facility] traZODONE 50 mg tablet 03-04 00:00: 00 Yes TAKE 1 TABLET BY MOUTH EVERYDAY AT BEDTIME [facility] traZODONE 50 mg tablet 03-04 00:00: 00 Yes TAKE 1 TABLET BY MOUTH EVERYDAY AT BEDTIME [facility] escitalopra m oxalate 10 mg tablet 03-04 00:00: 00 Yes TAKE 1 TABLET BY MOUTH EVERY MORNING [facility] traZODONE 50 mg tablet 0 03-04 00:00: 00 Yes TAKE 1 TABLET BY MOUTH EVERYDAY AT BEDTIME [facility] traZODONE 50 mg tablet 0 03-04 00:00: 00 Yes TAKE 1 TABLET BY MOUTH EVERYDAY AT BEDTIME [facility] traZODONE 50 mg tablet 0 03-04 00:00: 00 Yes TAKE 1 TABLET BY MOUTH EVERYDAY AT BEDTIME [facility] traZODONE 50 mg tablet 0 03-04 00:00: 00 Yes TAKE 1 TABLET BY MOUTH EVERYDAY AT BEDTIME [facility] traZODONE 50 mg tablet 0 03-04 00:00: 00 Yes TAKE 1 TABLET BY MOUTH EVERYDAY AT BEDTIME [facility] traZODONE 50 mg tablet 0 03-04 00:00: 00 Yes TAKE 1 TABLET BY MOUTH EVERYDAY AT BEDTIME [facility] traZODONE 50 mg tablet 0 03-04 00:00: 00 Yes TAKE 1 TABLET BY MOUTH EVERYDAY AT BEDTIME [facility] escitalopra m oxalate 10 mg tablet 0 03-04 00:00: 00 Yes TAKE 1 TABLET BY MOUTH EVERY MORNING [facility] traZODONE 50 mg tablet 0 03-04 00:00: 00 Yes TAKE 1 TABLET BY MOUTH EVERYDAY AT BEDTIME [facility] traZODONE 50 mg tablet 0 03-04 00:00: 00 Yes TAKE 1 TABLET BY MOUTH EVERYDAY AT BEDTIME [facility] traZODONE 50 mg tablet 0 03-04 00:00: 00 Yes TAKE 1 TABLET BY MOUTH EVERYDAY AT BEDTIME [facility] traZODONE 50 mg tablet 0 03-04 00:00: 00 Yes TAKE 1 TABLET BY MOUTH EVERYDAY AT BEDTIME [facility] traZODONE 50 mg tablet 0 03-04 00:00: 00 Yes TAKE 1 TABLET BY MOUTH EVERYDAY AT BEDTIME [facility] traZODONE 50 mg tablet 0 03-04 00:00: 00 Yes TAKE 1 TABLET BY MOUTH EVERYDAY AT BEDTIME [facility] traZODONE 50 mg tablet 0 03-04 00:00: 00 Yes TAKE 1 TABLET BY MOUTH EVERYDAY AT BEDTIME [facility] traZODONE 50 mg tablet 0 03-04 00:00: 00 Yes TAKE 1 TABLET BY MOUTH EVERYDAY AT BEDTIME [facility] traZODONE 50 mg tablet 0 03-04 00:00: 00 Yes TAKE 1 TABLET BY MOUTH EVERYDAY AT BEDTIME [facility] traZODONE 50 mg tablet 0 03-04 00:00: 00 Yes TAKE 1 TABLET BY MOUTH EVERYDAY AT BEDTIME [facility] traZODONE 50 mg tablet 03-04 00:00: 00 Yes TAKE 1 TABLET BY MOUTH EVERYDAY AT BEDTIME [facility] traZODONE 50 mg tablet 0 03-04 00:00: 00 Yes TAKE 1 TABLET BY MOUTH EVERYDAY AT BEDTIME [facility] traZODONE 50 mg tablet 03-04 00:00: 00 Yes TAKE 1 TABLET BY MOUTH EVERYDAY AT BEDTIME [facility] escitalopra m oxalate 10 mg tablet 03-04 00:00: 00 Yes TAKE 1 TABLET BY MOUTH EVERY MORNING [facility] traZODONE 50 mg tablet 03-04 00:00: 00 Yes TAKE 1 TABLET BY MOUTH EVERYDAY AT BEDTIME [facility] traZODONE 50 mg tablet 03-04 00:00: 00 Yes TAKE 1 TABLET BY MOUTH EVERYDAY AT BEDTIME [facility] escitalopra m oxalate 10 mg tablet 03-04 00:00: 00 Yes TAKE 1 TABLET BY MOUTH EVERY MORNING [facility] escitalopra m oxalate 10 mg tablet 03-04 00:00: 00 Yes TAKE 1 TABLET BY MOUTH EVERY MORNING [facility] traZODONE 50 mg tablet 03-04 00:00: 00 Yes TAKE 1 TABLET BY MOUTH EVERYDAY AT BEDTIME [facility] escitalopra m oxalate 10 mg tablet 03-04 00:00: 00 Yes TAKE 1 TABLET BY MOUTH EVERY MORNING [facility] traZODONE 50 mg tablet 03-04 00:00: 00 Yes TAKE 1 TABLET BY MOUTH EVERYDAY AT BEDTIME [facility] escitalopra m oxalate 10 mg tablet 03-04 00:00: 00 Yes TAKE 1 TABLET BY MOUTH EVERY MORNING [facility] traZODONE 50 mg tablet 03-04 00:00: 00 Yes TAKE 1 TABLET BY MOUTH EVERYDAY AT BEDTIME [facility] escitalopra m oxalate 10 mg tablet 03-04 00:00: 00 Yes TAKE 1 TABLET BY MOUTH EVERY MORNING [facility] traZODONE 50 mg tablet 0 03-04 00:00: 00 Yes TAKE 1 TABLET BY MOUTH EVERYDAY AT BEDTIME [facility] traZODONE 50 mg tablet 0 03-04 00:00: 00 Yes TAKE 1 TABLET BY MOUTH EVERYDAY AT BEDTIME [facility] escitalopra m oxalate 10 mg tablet 03-04 00:00: 00 Yes TAKE 1 TABLET BY MOUTH EVERY MORNING [facility] escitalopra m oxalate 10 mg tablet 03-04 00:00: 00 Yes TAKE 1 TABLET BY MOUTH EVERY MORNING [facility] traZODONE 50 mg tablet 0 03-04 00:00: 00 Yes TAKE 1 TABLET BY MOUTH EVERYDAY AT BEDTIME [facility] escitalopra m oxalate 10 mg tablet 03-04 00:00: 00 Yes TAKE 1 TABLET BY MOUTH EVERY MORNING [facility] traZODONE 50 mg tablet 03-04 00:00: 00 Yes TAKE 1 TABLET BY MOUTH EVERYDAY AT BEDTIME [facility] escitalopra m oxalate 10 mg tablet 03-04 00:00: 00 Yes TAKE 1 TABLET BY MOUTH EVERY MORNING [facility] traZODONE 50 mg tablet 03-04 00:00: 00 Yes TAKE 1 TABLET BY MOUTH EVERYDAY AT BEDTIME [facility] escitalopra m oxalate 10 mg tablet 03-04 00:00: 00 Yes TAKE 1 TABLET BY MOUTH EVERY MORNING [facility] traZODONE 50 mg tablet 03-04 00:00: 00 Yes TAKE 1 TABLET BY MOUTH EVERYDAY AT BEDTIME [facility] escitalopra m oxalate 10 mg tablet 0 03-04 00:00: 00 Yes TAKE 1 TABLET BY MOUTH EVERY MORNING [facility] traZODONE 50 mg tablet 03-04 00:00: 00 Yes TAKE 1 TABLET BY MOUTH EVERYDAY AT BEDTIME [facility] traZODONE 50 mg tablet 0 03-04 00:00: 00 Yes TAKE 1 TABLET BY MOUTH EVERYDAY AT BEDTIME [facility] escitalopra m oxalate 10 mg tablet 0 03-04 00:00: 00 Yes TAKE 1 TABLET BY MOUTH EVERY MORNING [facility] escitalopra m oxalate 10 mg tablet 03-04 00:00: 00 Yes TAKE 1 TABLET BY MOUTH EVERY MORNING [facility] traZODONE 50 mg tablet 03-04 00:00: 00 Yes TAKE 1 TABLET BY MOUTH EVERYDAY AT BEDTIME [facility] escitalopra m oxalate 10 mg tablet 03-04 00:00: 00 Yes TAKE 1 TABLET BY MOUTH EVERY MORNING [facility] traZODONE 50 mg tablet 03-04 00:00: 00 Yes TAKE 1 TABLET BY MOUTH EVERYDAY AT BEDTIME [facility] escitalopra m oxalate 10 mg tablet 03-04 00:00: 00 Yes TAKE 1 TABLET BY MOUTH EVERY MORNING [facility] traZODONE 50 mg tablet 03-04 00:00: 00 Yes TAKE 1 TABLET BY MOUTH EVERYDAY AT BEDTIME [facility] escitalopra m oxalate 10 mg tablet 03-04 00:00: 00 Yes TAKE 1 TABLET BY MOUTH EVERY MORNING [facility] traZODONE 50 mg tablet 03-04 00:00: 00 Yes TAKE 1 TABLET BY MOUTH EVERYDAY AT BEDTIME [facility] escitalopra m oxalate 10 mg tablet 03-04 00:00: 00 Yes TAKE 1 TABLET BY MOUTH EVERY MORNING [facility] traZODONE 50 mg tablet 03-04 00:00: 00 Yes TAKE 1 TABLET BY MOUTH EVERYDAY AT BEDTIME [facility] escitalopra m oxalate 10 mg tablet 0 03-04 00:00: 00 Yes TAKE 1 TABLET BY MOUTH EVERY MORNING [facility] traZODONE 50 mg tablet 03-04 00:00: 00 Yes TAKE 1 TABLET BY MOUTH EVERYDAY AT BEDTIME [facility] escitalopra m oxalate 10 mg tablet 0 03-04 00:00: 00 Yes TAKE 1 TABLET BY MOUTH EVERY MORNING [facility] traZODONE 50 mg tablet 0 03-04 00:00: 00 Yes TAKE 1 TABLET BY MOUTH EVERYDAY AT BEDTIME [facility] escitalopra m oxalate 10 mg tablet 03-04 00:00: 00 Yes TAKE 1 TABLET BY MOUTH EVERY MORNING [facility] traZODONE 50 mg tablet 0 03-04 00:00: 00 Yes TAKE 1 TABLET BY MOUTH EVERYDAY AT BEDTIME [facility] escitalopra m oxalate 10 mg tablet 03-04 00:00: 00 Yes TAKE 1 TABLET BY MOUTH EVERY MORNING [facility] traZODONE 50 mg tablet 0 03-04 00:00: 00 Yes TAKE 1 TABLET BY MOUTH EVERYDAY AT BEDTIME [facility] escitalopra m oxalate 10 mg tablet 03-04 00:00: 00 Yes TAKE 1 TABLET BY MOUTH EVERY MORNING [facility] traZODONE 50 mg tablet 0 03-04 00:00: 00 Yes TAKE 1 TABLET BY MOUTH EVERYDAY AT BEDTIME [facility] escitalopra m oxalate 10 mg tablet 03-04 00:00: 00 Yes TAKE 1 TABLET BY MOUTH EVERY MORNING [facility] traZODONE 50 mg tablet 0 03-04 00:00: 00 Yes TAKE 1 TABLET BY MOUTH EVERYDAY AT BEDTIME [facility] escitalopra m oxalate 10 mg tablet 03-04 00:00: 00 Yes TAKE 1 TABLET BY MOUTH EVERY MORNING [facility] traZODONE 50 mg tablet 03-04 00:00: 00 Yes TAKE 1 TABLET BY MOUTH EVERYDAY AT BEDTIME [facility] escitalopra m oxalate 10 mg tablet 0 03-04 00:00: 00 Yes TAKE 1 TABLET BY MOUTH EVERY MORNING [facility] traZODONE 50 mg tablet 03-04 00:00: 00 Yes TAKE 1 TABLET BY MOUTH EVERYDAY AT BEDTIME [facility] escitalopra m oxalate 10 mg tablet 0 03-04 00:00: 00 Yes TAKE 1 TABLET BY MOUTH EVERY MORNING [facility] traZODONE 50 mg tablet 0 03-04 00:00: 00 Yes TAKE 1 TABLET BY MOUTH EVERYDAY AT BEDTIME [facility] escitalopra m oxalate 10 mg tablet 03-04 00:00: 00 Yes TAKE 1 TABLET BY MOUTH EVERY MORNING [facility] traZODONE 50 mg tablet 03-04 00:00: 00 Yes TAKE 1 TABLET BY MOUTH EVERYDAY AT BEDTIME [facility] escitalopra m oxalate 10 mg tablet 03-04 00:00: 00 Yes TAKE 1 TABLET BY MOUTH EVERY MORNING [facility] traZODONE 50 mg tablet 03-04 00:00: 00 Yes TAKE 1 TABLET BY MOUTH EVERYDAY AT BEDTIME [facility] traZODONE 50 mg tablet 03-04 00:00: 00 Yes TAKE 1 TABLET BY MOUTH EVERYDAY AT BEDTIME [facility] escitalopra m oxalate 10 mg tablet 03-04 00:00: 00 Yes TAKE 1 TABLET BY MOUTH EVERY MORNING [facility] escitalopra m oxalate 10 mg tablet 03-04 00:00: 00 Yes TAKE 1 TABLET BY MOUTH EVERY MORNING [facility] traZODONE 50 mg tablet 03-04 00:00: 00 Yes TAKE 1 TABLET BY MOUTH EVERYDAY AT BEDTIME [facility] escitalopra m oxalate 10 mg tablet 03-04 00:00: 00 Yes TAKE 1 TABLET BY MOUTH EVERY MORNING [facility] traZODONE 50 mg tablet 03-04 00:00: 00 Yes TAKE 1 TABLET BY MOUTH EVERYDAY AT BEDTIME [facility] escitalopra m oxalate 10 mg tablet 03-04 00:00: 00 Yes TAKE 1 TABLET BY MOUTH EVERY MORNING [facility] traZODONE 50 mg tablet 03-04 00:00: 00 Yes TAKE 1 TABLET BY MOUTH EVERYDAY AT BEDTIME [facility] escitalopra m oxalate 10 mg tablet 03-04 00:00: 00 Yes TAKE 1 TABLET BY MOUTH EVERY MORNING [facility] traZODONE 50 mg tablet 03-04 00:00: 00 Yes TAKE 1 TABLET BY MOUTH EVERYDAY AT BEDTIME [facility] escitalopra m oxalate 10 mg tablet 03-04 00:00: 00 Yes TAKE 1 TABLET BY MOUTH EVERY MORNING [facility] traZODONE 50 mg tablet 03-04 00:00: 00 Yes TAKE 1 TABLET BY MOUTH EVERYDAY AT BEDTIME [facility] escitalopra m oxalate 10 mg tablet 03-04 00:00: 00 Yes TAKE 1 TABLET BY MOUTH EVERY MORNING [facility] traZODONE 50 mg tablet 03-04 00:00: 00 Yes TAKE 1 TABLET BY MOUTH EVERYDAY AT BEDTIME [facility] escitalopra m oxalate 10 mg tablet 03-04 00:00: 00 Yes TAKE 1 TABLET BY MOUTH EVERY MORNING [facility] traZODONE 50 mg tablet 03-04 00:00: 00 Yes TAKE 1 TABLET BY MOUTH EVERYDAY AT BEDTIME [facility] escitalopra m oxalate 10 mg tablet 03-04 00:00: 00 Yes TAKE 1 TABLET BY MOUTH EVERY MORNING [facility] traZODONE 50 mg tablet 03-04 00:00: 00 Yes TAKE 1 TABLET BY MOUTH EVERYDAY AT BEDTIME [facility] escitalopra m oxalate 10 mg tablet 03-04 00:00: 00 Yes TAKE 1 TABLET BY MOUTH EVERY MORNING [facility] traZODONE 50 mg tablet 03-04 00:00: 00 Yes TAKE 1 TABLET BY MOUTH EVERYDAY AT BEDTIME [facility] escitalopra m oxalate 10 mg tablet 03-04 00:00: 00 Yes TAKE 1 TABLET BY MOUTH EVERY MORNING [facility] traZODONE 50 mg tablet 0 03-04 00:00: 00 Yes TAKE 1 TABLET BY MOUTH EVERYDAY AT BEDTIME [facility] escitalopra m oxalate 10 mg tablet 03-04 00:00: 00 Yes TAKE 1 TABLET BY MOUTH EVERY MORNING [facility] traZODONE 50 mg tablet 0 03-04 00:00: 00 Yes TAKE 1 TABLET BY MOUTH EVERYDAY AT BEDTIME [facility] escitalopra m oxalate 10 mg tablet 0 03-04 00:00: 00 Yes TAKE 1 TABLET BY MOUTH EVERY MORNING [facility] traZODONE 50 mg tablet 03-04 00:00: 00 Yes TAKE 1 TABLET BY MOUTH EVERYDAY AT BEDTIME [facility] escitalopra m oxalate 10 mg tablet 03-04 00:00: 00 Yes TAKE 1 TABLET BY MOUTH EVERY MORNING [facility] escitalopra m oxalate 10 mg tablet 03-04 00:00: 00 07-17 00:00 :00 No TAKE 1 TABLET BY MOUTH EVERY MORNING [facility] escitalopra m oxalate 10 mg tablet 03-04 00:00: 00 07-17 00:00 :00 No TAKE 1 TABLET BY MOUTH EVERY MORNING [facility] No known medications No Un jac [facility] Immunizations Ordered Immunization Name Filled Immunization Name Date Status Comments Source HPV9 2023-02-21 00:00:00 Completed [facility] HPV9 2023-02-21 00:00:00 Completed [facility] HPV9 2023-02-21 00:00:00 Completed [facility] HPV9 2023-02-21 00:00:00 Completed [facility] HPV9 2023-02-21 00:00:00 Completed [facility] HPV9 2023-02-21 00:00:00 Completed [facility] HPV9 2023-02-21 00:00:00 Completed [facility] HPV9 2023-02-21 00:00:00 Completed [facility] HPV9 2023-02-21 00:00:00 Completed [facility] HPV9 2023-02-21 00:00:00 Completed [facility] HPV9 2023-02-21 00:00:00 Completed [facility] HPV9 2023-02-21 00:00:00 Completed [facility] TDAP 2017-10-16 00:00:00 Completed [facility] Influenza Virus Vaccine Quad IM 3+ YRS 2017-10-16 00:00:00 Completed [facility] Tdap 2017-10-16 00:00:00 Completed [facility] Influenza Virus Vaccine Quad IM 3+ YRS 2017-10-16 00:00:00 Completed [facility] TDAP 2017-10-16 00:00:00 Completed [facility] Influenza Virus Vaccine Quad IM 3+ YRS 2017-10-16 00:00:00 Completed [facility] TDAP 2017-10-16 00:00:00 Completed [facility] Influenza Virus Vaccine Quad IM 3+ YRS 2017-10-16 00:00:00 Completed [facility] TDAP 2017-10-16 00:00:00 Completed [facility] Influenza Virus Vaccine Quad IM 3+ YRS 2017-10-16 00:00:00 Completed [facility] TDAP 2017-10-16 00:00:00 Completed [facility] Influenza Virus Vaccine Quad IM 3+ YRS 2017-10-16 00:00:00 Completed [facility] TDAP 2017-10-16 00:00:00 Completed [facility] Influenza Virus Vaccine Quad IM 3+ YRS 2017-10-16 00:00:00 Completed [facility] Tdap 2017-10-16 00:00:00 Completed [facility] Influenza Virus Vaccine Quad IM 3+ YRS 2017-10-16 00:00:00 Completed [facility] TDAP 2017-10-16 00:00:00 Completed [facility] Influenza Virus Vaccine Quad IM 3+ YRS 2017-10-16 00:00:00 Completed [facility] TDAP 2017-10-16 00:00:00 Completed [facility] Influenza Virus Vaccine Quad IM 3+ YRS 2017-10-16 00:00:00 Completed [facility] TDAP 2017-10-16 00:00:00 Completed [facility] Influenza Virus Vaccine Quad IM 3+ YRS 2017-10-16 00:00:00 Completed [facility] TDAP 2017-10-16 00:00:00 Completed [facility] Influenza Virus Vaccine Quad IM 3+ YRS 2017-10-16 00:00:00 Completed [facility] TDAP 2017-10-16 00:00:00 Completed [facility] Influenza Virus Vaccine Quad IM 3+ YRS 2017-10-16 00:00:00 Completed [facility] TDAP 2017-10-16 00:00:00 Completed [facility] Influenza Virus Vaccine Quad IM 3+ YRS 2017-10-16 00:00:00 Completed [facility] TDAP 2017-10-16 00:00:00 Completed [facility] Influenza Virus Vaccine Quad IM 3+ YRS 2017-10-16 00:00:00 Completed [facility] TDAP 2017-10-16 00:00:00 Completed [facility] Influenza Virus Vaccine Quad IM 3+ YRS 2017-10-16 00:00:00 Completed [facility] Tdap 2017-10-16 00:00:00 Completed [facility] Influenza Virus Vaccine Quad IM 3+ YRS 2017-10-16 00:00:00 Completed [facility] TDAP 2017-10-16 00:00:00 Completed [facility] Influenza Virus Vaccine Quad IM 3+ YRS 2017-10-16 00:00:00 Completed [facility] TDAP 2017-10-16 00:00:00 Completed [facility] Influenza Virus Vaccine Quad IM 3+ YRS 2017-10-16 00:00:00 Completed [facility] TDAP 2017-10-16 00:00:00 Completed [facility] Influenza Virus Vaccine Quad IM 3+ YRS 2017-10-16 00:00:00 Completed [facility] TDAP 2017-10-16 00:00:00 Completed [facility] Influenza Virus Vaccine Quad IM 3+ YRS 2017-10-16 00:00:00 Completed [facility] TDAP 2017-10-16 00:00:00 Completed [facility] Influenza Virus Vaccine Quad IM 3+ YRS 2017-10-16 00:00:00 Completed [facility] TDAP 2017-10-16 00:00:00 Completed [facility] Influenza Virus Vaccine Quad IM 3+ YRS 2017-10-16 00:00:00 Completed [facility] Tdap 2017-10-16 00:00:00 Completed [facility] Influenza Virus Vaccine Quad IM 3+ YRS 2017-10-16 00:00:00 Completed [facility] TDAP 2017-10-16 00:00:00 Completed [facility] Influenza Virus Vaccine Quad IM 3+ YRS 2017-10-16 00:00:00 Completed [facility] TDAP 2017-10-16 00:00:00 Completed [facility] Influenza Virus Vaccine Quad IM 3+ YRS 2017-10-16 00:00:00 Completed [facility] Tdap 2017-10-16 00:00:00 Completed [facility] Influenza Virus Vaccine Quad IM 3+ YRS 2017-10-16 00:00:00 Completed [facility] Tdap 2017-10-16 00:00:00 Completed [facility] Influenza Virus Vaccine Quad IM 3+ YRS 2017-10-16 00:00:00 Completed [facility] Tdap 2017-10-16 00:00:00 Completed [facility] Influenza Virus Vaccine Quad IM 3+ YRS 2017-10-16 00:00:00 Completed [facility] Tdap 2017-10-16 00:00:00 Completed [facility] Influenza Virus Vaccine Quad IM 3+ YRS 2017-10-16 00:00:00 Completed [facility] Tdap 2017-10-16 00:00:00 Completed [facility] Influenza Virus Vaccine Quad IM 3+ YRS 2017-10-16 00:00:00 Completed [facility] TDAP 2017-10-16 00:00:00 Completed [facility] Influenza Virus Vaccine Quad IM 3+ YRS 2017-10-16 00:00:00 Completed [facility] TDAP 2017-10-16 00:00:00 Completed [facility] Influenza Virus Vaccine Quad IM 3+ YRS 2017-10-16 00:00:00 Completed [facility] TDAP 2017-10-16 00:00:00 Completed [facility] Influenza Virus Vaccine Quad IM 3+ YRS 2017-10-16 00:00:00 Completed [facility] TDAP 2017-10-16 00:00:00 Completed [facility] Influenza Virus Vaccine Quad IM 3+ YRS 2017-10-16 00:00:00 Completed [facility] TDAP 2017-10-16 00:00:00 Completed [facility] Tdap 2017-10-16 00:00:00 Completed [facility] Influenza Virus Vaccine Quad IM 3+ YRS 2017-10-16 00:00:00 Completed [facility] Influenza Virus Vaccine Quad IM 3+ YRS 2017-10-16 00:00:00 Completed [facility] TDAP 2017-10-16 00:00:00 Completed [facility] Influenza Virus Vaccine Quad IM 3+ YRS 2017-10-16 00:00:00 Completed [facility] TDAP 2017-10-16 00:00:00 Completed [facility] Influenza Virus Vaccine Quad IM 3+ YRS 2017-10-16 00:00:00 Completed [facility] TDAP 2017-10-16 00:00:00 Completed [facility] Influenza Virus Vaccine Quad IM 3+ YRS 2017-10-16 00:00:00 Completed [facility] TDAP 2017-10-16 00:00:00 Completed [facility] Influenza Virus Vaccine Quad IM 3+ YRS 2017-10-16 00:00:00 Completed [facility] TDAP 2017-10-16 00:00:00 Completed [facility] Influenza Virus Vaccine Quad IM 3+ YRS 2017-10-16 00:00:00 Completed [facility] Tdap 2017-10-16 00:00:00 Completed [facility] Influenza Virus Vaccine Quad IM 3+ YRS 2017-10-16 00:00:00 Completed [facility] TDAP 2017-10-16 00:00:00 Completed [facility] Influenza Virus Vaccine Quad IM 3+ YRS 2017-10-16 00:00:00 Completed [facility] TDAP 2017-10-16 00:00:00 Completed [facility] Influenza Virus Vaccine Quad IM 3+ YRS 2017-10-16 00:00:00 Completed [facility] TDAP 2017-10-16 00:00:00 Completed [facility] Influenza Virus Vaccine Quad IM 3+ YRS 2017-10-16 00:00:00 Completed [facility] TDAP 2017-10-16 00:00:00 Completed [facility] Influenza Virus Vaccine Quad IM 3+ YRS 2017-10-16 00:00:00 Completed [facility] TDAP 2017-10-16 00:00:00 Completed [facility] Influenza Virus Vaccine Quad IM 3+ YRS 2017-10-16 00:00:00 Completed [facility] TDAP 2017-10-16 00:00:00 Completed [facility] Influenza Virus Vaccine Quad IM 3+ YRS 2017-10-16 00:00:00 Completed [facility] TDAP 2017-10-16 00:00:00 Completed [facility] Influenza Virus Vaccine Quad IM 3+ YRS 2017-10-16 00:00:00 Completed [facility] TDAP 2017-10-16 00:00:00 Completed [facility] Influenza Virus Vaccine Quad IM 3+ YRS 2017-10-16 00:00:00 Completed [facility] TDAP 2017-10-16 00:00:00 Completed [facility] Influenza Virus Vaccine Quad IM 3+ YRS 2017-10-16 00:00:00 Completed [facility] Tdap 2017-10-16 00:00:00 Completed [facility] Influenza Virus Vaccine Quad IM 3+ YRS 2017-10-16 00:00:00 Completed [facility] TDAP 2017-10-16 00:00:00 Completed [facility] Influenza Virus Vaccine Quad IM 3+ YRS 2017-10-16 00:00:00 Completed [facility] TDAP 2017-10-16 00:00:00 Completed [facility] Influenza Virus Vaccine Quad IM 3+ YRS 2017-10-16 00:00:00 Completed [facility] TDAP 2017-10-16 00:00:00 Completed [facility] Influenza Virus Vaccine Quad IM 3+ YRS 2017-10-16 00:00:00 Completed [facility] TDAP 2017-10-16 00:00:00 Completed [facility] Influenza Virus Vaccine Quad IM 3+ YRS 2017-10-16 00:00:00 Completed [facility] TDAP 2017-10-16 00:00:00 Completed [facility] Influenza Virus Vaccine Quad IM 3+ YRS 2017-10-16 00:00:00 Completed [facility] TDAP 2017-10-16 00:00:00 Completed [facility] Influenza Virus Vaccine Quad IM 3+ YRS 2017-10-16 00:00:00 Completed [facility] TDAP 2017-10-16 00:00:00 Completed [facility] Influenza Virus Vaccine Quad IM 3+ YRS 2017-10-16 00:00:00 Completed [facility] Tdap 2017-10-16 00:00:00 Completed [facility] Influenza Virus Vaccine Quad IM 3+ YRS 2017-10-16 00:00:00 Completed [facility] TDAP 2017-10-16 00:00:00 Completed [facility] Influenza Virus Vaccine Quad IM 3+ YRS 2017-10-16 00:00:00 Completed [facility] TDAP 2017-10-16 00:00:00 Completed [facility] Influenza Virus Vaccine Quad IM 3+ YRS 2017-10-16 00:00:00 Completed [facility] TDAP 2017-10-16 00:00:00 Completed [facility] Influenza Virus Vaccine Quad IM 3+ YRS 2017-10-16 00:00:00 Completed [facility] TDAP 2017-10-16 00:00:00 Completed [facility] Influenza Virus Vaccine Quad IM 3+ YRS 2017-10-16 00:00:00 Completed [facility] Tdap 2017-10-16 00:00:00 Completed [facility] TDAP 2017-10-16 00:00:00 Completed [facility] Influenza Virus Vaccine Quad IM 3+ YRS 2017-10-16 00:00:00 Completed [facility] Influenza Virus Vaccine Quad IM 3+ YRS 2017-10-16 00:00:00 Completed [facility] TDAP 2017-10-16 00:00:00 Completed [facility] Influenza Virus Vaccine Quad IM 3+ YRS 2017-10-16 00:00:00 Completed [facility] TDAP 2017-10-16 00:00:00 Completed [facility] Influenza Virus Vaccine Quad IM 3+ YRS 2017-10-16 00:00:00 Completed [facility] TDAP 2016-01-18 00:00:00 Completed [facility] Tdap 2016-01-18 00:00:00 Completed [facility] TDAP 2016-01-18 00:00:00 Completed [facility] TDAP 2016-01-18 00:00:00 Completed [facility] TDAP 2016-01-18 00:00:00 Completed [facility] TDAP 2016-01-18 00:00:00 Completed [facility] TDAP 2016-01-18 00:00:00 Completed [facility] Tdap 2016-01-18 00:00:00 Completed [facility] TDAP 2016-01-18 00:00:00 Completed [facility] TDAP 2016-01-18 00:00:00 Completed [facility] TDAP 2016-01-18 00:00:00 Completed [facility] TDAP 2016-01-18 00:00:00 Completed [facility] TDAP 2016-01-18 00:00:00 Completed [facility] TDAP 2016-01-18 00:00:00 Completed [facility] TDAP 2016-01-18 00:00:00 Completed [facility] Tdap 2016-01-18 00:00:00 Completed [facility] TDAP 2016-01-18 00:00:00 Completed [facility] TDAP 2016-01-18 00:00:00 Completed [facility] TDAP 2016-01-18 00:00:00 Completed [facility] TDAP 2016-01-18 00:00:00 Completed [facility] TDAP 2016-01-18 00:00:00 Completed [facility] TDAP 2016-01-18 00:00:00 Completed [facility] TDAP 2016-01-18 00:00:00 Completed [facility] Tdap 2016-01-18 00:00:00 Completed [facility] TDAP 2016-01-18 00:00:00 Completed [facility] TDAP 2016-01-18 00:00:00 Completed [facility] Tdap 2016-01-18 00:00:00 Completed [facility] Tdap 2016-01-18 00:00:00 Completed [facility] Tdap 2016-01-18 00:00:00 Completed [facility] Tdap 2016-01-18 00:00:00 Completed [facility] Tdap 2016-01-18 00:00:00 Completed [facility] TDAP 2016-01-18 00:00:00 Completed [facility] TDAP 2016-01-18 00:00:00 Completed [facility] TDAP 2016-01-18 00:00:00 Completed [facility] TDAP 2016-01-18 00:00:00 Completed [facility] Tdap 2016-01-18 00:00:00 Completed [facility] TDAP 2016-01-18 00:00:00 Completed [facility] TDAP 2016-01-18 00:00:00 Completed [facility] TDAP 2016-01-18 00:00:00 Completed [facility] TDAP 2016-01-18 00:00:00 Completed [facility] TDAP 2016-01-18 00:00:00 Completed [facility] Tdap 2016-01-18 00:00:00 Completed [facility] TDAP 2016-01-18 00:00:00 Completed [facility] TDAP 2016-01-18 00:00:00 Completed [facility] TDAP 2016-01-18 00:00:00 Completed [facility] TDAP 2016-01-18 00:00:00 Completed [facility] TDAP 2016-01-18 00:00:00 Completed [facility] TDAP 2016-01-18 00:00:00 Completed [facility] TDAP 2016-01-18 00:00:00 Completed [facility] TDAP 2016-01-18 00:00:00 Completed [facility] TDAP 2016-01-18 00:00:00 Completed [facility] Tdap 2016-01-18 00:00:00 Completed [facility] TDAP 2016-01-18 00:00:00 Completed [facility] TDAP 2016-01-18 00:00:00 Completed [facility] TDAP 2016-01-18 00:00:00 Completed [facility] TDAP 2016-01-18 00:00:00 Completed [facility] TDAP 2016-01-18 00:00:00 Completed [facility] TDAP 2016-01-18 00:00:00 Completed [facility] TDAP 2016-01-18 00:00:00 Completed [facility] Tdap 2016-01-18 00:00:00 Completed [facility] TDAP 2016-01-18 00:00:00 Completed [facility] TDAP 2016-01-18 00:00:00 Completed [facility] TDAP 2016-01-18 00:00:00 Completed [facility] TDAP 2016-01-18 00:00:00 Completed [facility] TDAP 2016-01-18 00:00:00 Completed [facility] Tdap 2016-01-18 00:00:00 Completed [facility] TDAP 2016-01-18 00:00:00 Completed [facility] TDAP 2016-01-18 00:00:00 Completed [facility] TDAP 2016-01-18 00:00:00 Completed [facility] TDAP 2014-05-18 00:00:00 Completed [facility] Tdap 2014-05-18 00:00:00 Completed [facility] TDAP 2014-05-18 00:00:00 Completed [facility] TDAP 2014-05-18 00:00:00 Completed [facility] TDAP 2014-05-18 00:00:00 Completed [facility] TDAP 2014-05-18 00:00:00 Completed [facility] Tdap 2014-05-18 00:00:00 Completed [facility] TDAP 2014-05-18 00:00:00 Completed [facility] TDAP 2014-05-18 00:00:00 Completed [facility] TDAP 2014-05-18 00:00:00 Completed [facility] TDAP 2014-05-18 00:00:00 Completed [facility] TDAP 2014-05-18 00:00:00 Completed [facility] TDAP 2014-05-18 00:00:00 Completed [facility] TDAP 2014-05-18 00:00:00 Completed [facility] TDAP 2014-05-18 00:00:00 Completed [facility] Tdap 2014-05-18 00:00:00 Completed [facility] TDAP 2014-05-18 00:00:00 Completed [facility] TDAP 2014-05-18 00:00:00 Completed [facility] TDAP 2014-05-18 00:00:00 Completed [facility] TDAP 2014-05-18 00:00:00 Completed [facility] TDAP 2014-05-18 00:00:00 Completed [facility] TDAP 2014-05-18 00:00:00 Completed [facility] TDAP 2014-05-18 00:00:00 Completed [facility] Tdap 2014-05-18 00:00:00 Completed [facility] TDAP 2014-05-18 00:00:00 Completed [facility] TDAP 2014-05-18 00:00:00 Completed [facility] Tdap 2014-05-18 00:00:00 Completed [facility] Tdap 2014-05-18 00:00:00 Completed [facility] Tdap 2014-05-18 00:00:00 Completed [facility] Tdap 2014-05-18 00:00:00 Completed [facility] Tdap 2014-05-18 00:00:00 Completed [facility] Tdap 2014-05-18 00:00:00 Completed [facility] TDAP 2014-05-18 00:00:00 Completed [facility] TDAP 2014-05-18 00:00:00 Completed [facility] TDAP 2014-05-18 00:00:00 Completed [facility] TDAP 2014-05-18 00:00:00 Completed [facility] Tdap 2014-05-18 00:00:00 Completed [facility] TDAP 2014-05-18 00:00:00 Completed [facility] TDAP 2014-05-18 00:00:00 Completed [facility] TDAP 2014-05-18 00:00:00 Completed [facility] TDAP 2014-05-18 00:00:00 Completed [facility] Tdap 2014-05-18 00:00:00 Completed [facility] TDAP 2014-05-18 00:00:00 Completed [facility] TDAP 2014-05-18 00:00:00 Completed [facility] TDAP 2014-05-18 00:00:00 Completed [facility] TDAP 2014-05-18 00:00:00 Completed [facility] TDAP 2014-05-18 00:00:00 Completed [facility] TDAP 2014-05-18 00:00:00 Completed [facility] TDAP 2014-05-18 00:00:00 Completed [facility] TDAP 2014-05-18 00:00:00 Completed [facility] TDAP 2014-05-18 00:00:00 Completed [facility] Tdap 2014-05-18 00:00:00 Completed [facility] TDAP 2014-05-18 00:00:00 Completed [facility] TDAP 2014-05-18 00:00:00 Completed [facility] TDAP 2014-05-18 00:00:00 Completed [facility] TDAP 2014-05-18 00:00:00 Completed [facility] TDAP 2014-05-18 00:00:00 Completed [facility] TDAP 2014-05-18 00:00:00 Completed [facility] TDAP 2014-05-18 00:00:00 Completed [facility] TDAP 2014-05-18 00:00:00 Completed [facility] Tdap 2014-05-18 00:00:00 Completed [facility] TDAP 2014-05-18 00:00:00 Completed [facility] TDAP 2014-05-18 00:00:00 Completed [facility] TDAP 2014-05-18 00:00:00 Completed [facility] TDAP 2014-05-18 00:00:00 Completed [facility] TDAP 2014-05-18 00:00:00 Completed [facility] Tdap 2014-05-18 00:00:00 Completed [facility] TDAP 2014-05-18 00:00:00 Completed [facility] TDAP 2014-05-18 00:00:00 Completed [facility] TDAP 2014-05-18 00:00:00 Completed [facility] Pneumococcal Polysaccharide, PPSV23 (PNEUMOVAX) 2008-05-11 00:00:00 Completed [facility] Pneumococcal Polysaccharide, PPSV23 (PNEUMOVAX) 2008-05-11 00:00:00 Completed [facility] Pneumococcal Polysaccharide, PPSV23 (PNEUMOVAX) 2008-05-11 00:00:00 Completed [facility] Pneumococcal Polysaccharide, PPSV23 (PNEUMOVAX) 2008-05-11 00:00:00 Completed [facility] Pneumococcal Polysaccharide, PPSV23 (PNEUMOVAX) 2008-05-11 00:00:00 Completed [facility] Pneumococcal Polysaccharide, PPSV23 (PNEUMOVAX) 2008-05-11 00:00:00 Completed [facility] Pneumococcal Polysaccharide, PPSV23 (PNEUMOVAX) 2008-05-11 00:00:00 Completed [facility] Pneumococcal Polysaccharide, PPSV23 (PNEUMOVAX) 2008-05-11 00:00:00 Completed [facility] Pneumococcal Polysaccharide, PPSV23 (PNEUMOVAX) 2008-05-11 00:00:00 Completed [facility] Pneumococcal Polysaccharide, PPSV23 (PNEUMOVAX) 2008-05-11 00:00:00 Completed [facility] Pneumococcal Polysaccharide, PPSV23 (PNEUMOVAX) 2008-05-11 00:00:00 Completed [facility] Pneumococcal Polysaccharide, PPSV23 (PNEUMOVAX) 2008-05-11 00:00:00 Completed [facility] Pneumococcal Polysaccharide, PPSV23 (PNEUMOVAX) 2008-05-11 00:00:00 Completed [facility] Pneumococcal Polysaccharide, PPSV23 (PNEUMOVAX) 2008-05-11 00:00:00 Completed [facility] Pneumococcal Polysaccharide, PPSV23 (PNEUMOVAX) 2008-05-11 00:00:00 Completed [facility] Pneumococcal Polysaccharide, PPSV23 (PNEUMOVAX) 2008-05-11 00:00:00 Completed [facility] Pneumococcal Polysaccharide, PPSV23 (PNEUMOVAX) 2008-05-11 00:00:00 Completed [facility] Pneumococcal Polysaccharide, PPSV23 (PNEUMOVAX) 2008-05-11 00:00:00 Completed [facility] Pneumococcal Polysaccharide, PPSV23 (PNEUMOVAX) 2008-05-11 00:00:00 Completed [facility] Pneumococcal Polysaccharide, PPSV23 (PNEUMOVAX) 2008-05-11 00:00:00 Completed [facility] Pneumococcal Polysaccharide, PPSV23 (PNEUMOVAX) 2008-05-11 00:00:00 Completed [facility] Pneumococcal Polysaccharide, PPSV23 (PNEUMOVAX) 2008-05-11 00:00:00 Completed [facility] Pneumococcal Polysaccharide, PPSV23 (PNEUMOVAX) 2008-05-11 00:00:00 Completed [facility] Pneumococcal Polysaccharide, PPSV23 (PNEUMOVAX) 2008-05-11 00:00:00 Completed [facility] Pneumococcal Polysaccharide, PPSV23 (PNEUMOVAX) 2008-05-11 00:00:00 Completed [facility] Pneumococcal Polysaccharide, PPSV23 (PNEUMOVAX) 2008-05-11 00:00:00 Completed [facility] Pneumococcal Polysaccharide, PPSV23 (PNEUMOVAX) 2008-05-11 00:00:00 Completed [facility] Pneumococcal Polysaccharide, PPSV23 (PNEUMOVAX) 2008-05-11 00:00:00 Completed [facility] Pneumococcal Polysaccharide, PPSV23 (PNEUMOVAX) 2008-05-11 00:00:00 Completed [facility] Pneumococcal Polysaccharide, PPSV23 (PNEUMOVAX) 2008-05-11 00:00:00 Completed [facility] Pneumococcal Polysaccharide, PPSV23 (PNEUMOVAX) 2008-05-11 00:00:00 Completed [facility] Pneumococcal Polysaccharide, PPSV23 (PNEUMOVAX) 2008-05-11 00:00:00 Completed [facility] Pneumococcal Polysaccharide, PPSV23 (PNEUMOVAX) 2008-05-11 00:00:00 Completed [facility] Pneumococcal Polysaccharide, PPSV23 (PNEUMOVAX) 2008-05-11 00:00:00 Completed [facility] Pneumococcal Polysaccharide, PPSV23 (PNEUMOVAX) 2008-05-11 00:00:00 Completed [facility] Pneumococcal Polysaccharide, PPSV23 (PNEUMOVAX) 2008-05-11 00:00:00 Completed [facility] Pneumococcal Polysaccharide, PPSV23 (PNEUMOVAX) 2008-05-11 00:00:00 Completed [facility] Pneumococcal Polysaccharide, PPSV23 (PNEUMOVAX) 2008-05-11 00:00:00 Completed [facility] Pneumococcal Polysaccharide, PPSV23 (PNEUMOVAX) 2008-05-11 00:00:00 Completed [facility] Pneumococcal Polysaccharide, PPSV23 (PNEUMOVAX) 2008-05-11 00:00:00 Completed [facility] Pneumococcal Polysaccharide, PPSV23 (PNEUMOVAX) 2008-05-11 00:00:00 Completed [facility] Pneumococcal Polysaccharide, PPSV23 (PNEUMOVAX) 2008-05-11 00:00:00 Completed [facility] Pneumococcal Polysaccharide, PPSV23 (PNEUMOVAX) 2008-05-11 00:00:00 Completed [facility] Pneumococcal Polysaccharide, PPSV23 (PNEUMOVAX) 2008-05-11 00:00:00 Completed [facility] Pneumococcal Polysaccharide, PPSV23 (PNEUMOVAX) 2008-05-11 00:00:00 Completed [facility] Pneumococcal Polysaccharide, PPSV23 (PNEUMOVAX) 2008-05-11 00:00:00 Completed [facility] Pneumococcal Polysaccharide, PPSV23 (PNEUMOVAX) 2008-05-11 00:00:00 Completed [facility] Pneumococcal Polysaccharide, PPSV23 (PNEUMOVAX) 2008-05-11 00:00:00 Completed [facility] Pneumococcal Polysaccharide, PPSV23 (PNEUMOVAX) 2008-05-11 00:00:00 Completed [facility] Pneumococcal Polysaccharide, PPSV23 (PNEUMOVAX) 2008-05-11 00:00:00 Completed [facility] Pneumococcal Polysaccharide, PPSV23 (PNEUMOVAX) 2008-05-11 00:00:00 Completed [facility] Pneumococcal Polysaccharide, PPSV23 (PNEUMOVAX) 2008-05-11 00:00:00 Completed [facility] Pneumococcal Polysaccharide, PPSV23 (PNEUMOVAX) 2008-05-11 00:00:00 Completed [facility] Pneumococcal Polysaccharide, PPSV23 (PNEUMOVAX) 2008-05-11 00:00:00 Completed [facility] Pneumococcal Polysaccharide, PPSV23 (PNEUMOVAX) 2008-05-11 00:00:00 Completed [facility] Pneumococcal Polysaccharide, PPSV23 (PNEUMOVAX) 2008-05-11 00:00:00 Completed [facility] Pneumococcal Polysaccharide, PPSV23 (PNEUMOVAX) 2008-05-11 00:00:00 Completed [facility] Pneumococcal Polysaccharide, PPSV23 (PNEUMOVAX) 2008-05-11 00:00:00 Completed [facility] Pneumococcal Polysaccharide, PPSV23 (PNEUMOVAX) 2008-05-11 00:00:00 Completed [facility] Pneumococcal Polysaccharide, PPSV23 (PNEUMOVAX) 2008-05-11 00:00:00 Completed [facility] Pneumococcal Polysaccharide, PPSV23 (PNEUMOVAX) 2008-05-11 00:00:00 Completed [facility] Pneumococcal Polysaccharide, PPSV23 (PNEUMOVAX) 2008-05-11 00:00:00 Completed [facility] Pneumococcal Polysaccharide, PPSV23 (PNEUMOVAX) 2008-05-11 00:00:00 Completed [facility] Pneumococcal Polysaccharide, PPSV23 (PNEUMOVAX) 2008-05-11 00:00:00 Completed [facility] Pneumococcal Polysaccharide, PPSV23 (PNEUMOVAX) 2008-05-11 00:00:00 Completed [facility] Pneumococcal Polysaccharide, PPSV23 (PNEUMOVAX) 2008-05-11 00:00:00 Completed [facility] Pneumococcal Polysaccharide, PPSV23 (PNEUMOVAX) 2008-05-11 00:00:00 Completed [facility] Pneumococcal Polysaccharide, PPSV23 (PNEUMOVAX) 2008-05-11 00:00:00 Completed [facility] Pneumococcal Polysaccharide, PPSV23 (PNEUMOVAX) 2008-05-11 00:00:00 Completed [facility] Pneumococcal Polysaccharide, PPSV23 (PNEUMOVAX) 2008-05-11 00:00:00 Completed [facility] Pneumococcal Polysaccharide, PPSV23 (PNEUMOVAX) Unknown Completed [facility] TDAP Unknown Completed [facility] TDAP Unknown Completed [facility] TDAP Unknown Completed [facility] Influenza Virus Vaccine Quad IM 3+ YRS Unknown Completed [facility] HPV9 Unknown Completed [facility] Pneumococcal Polysaccharide, PPSV23 (PNEUMOVAX) Unknown Completed [facility] TDAP Unknown Completed [facility] TDAP Unknown Completed [facility] TDAP Unknown Completed [facility] Influenza Virus Vaccine Quad IM 3+ YRS Unknown Completed [facility] Pneumococcal Polysaccharide, PPSV23 (PNEUMOVAX) Unknown Completed [facility] TDAP Unknown Completed [facility] TDAP Unknown Completed [facility] TDAP Unknown Completed [facility] Influenza Virus Vaccine Quad IM 3+ YRS Unknown Completed [facility] Pneumococcal Polysaccharide, PPSV23 (PNEUMOVAX) Unknown Completed [facility] TDAP Unknown Completed [facility] TDAP Unknown Completed [facility] TDAP Unknown Completed [facility] Influenza Virus Vaccine Quad IM 3+ YRS Unknown Completed [facility] Pneumococcal Polysaccharide, PPSV23 (PNEUMOVAX) Unknown Completed [facility] TDAP Unknown Completed [facility] TDAP Unknown Completed [facility] TDAP Unknown Completed [facility] Influenza Virus Vaccine Quad IM 3+ YRS Unknown Completed [facility] Pneumococcal Polysaccharide, PPSV23 (PNEUMOVAX) Unknown Completed [facility] TDAP Unknown Completed [facility] TDAP Unknown Completed [facility] TDAP Unknown Completed [facility] Influenza Virus Vaccine Quad IM 3+ YRS Unknown Completed [facility] Pneumococcal Polysaccharide, PPSV23 (PNEUMOVAX) Unknown Completed [facility] TDAP Unknown Completed [facility] TDAP Unknown Completed [facility] TDAP Unknown Completed [facility] Influenza Virus Vaccine Quad IM 3+ YRS Unknown Completed [facility] Pneumococcal Polysaccharide, PPSV23 (PNEUMOVAX) Unknown Completed [facility] TDAP Unknown Completed [facility] TDAP Unknown Completed [facility] TDAP Unknown Completed [facility] Influenza Virus Vaccine Quad IM 3+ YRS Unknown Completed [facility] Pneumococcal Polysaccharide, PPSV23 (PNEUMOVAX) Unknown Completed [facility] TDAP Unknown Completed [facility] TDAP Unknown Completed [facility] TDAP Unknown Completed [facility] Influenza Virus Vaccine Quad IM 3+ YRS Unknown Completed [facility] Pneumococcal Polysaccharide, PPSV23 (PNEUMOVAX) Unknown Completed [facility] TDAP Unknown Completed [facility] TDAP Unknown Completed [facility] TDAP Unknown Completed [facility] Influenza Virus Vaccine Quad IM 3+ YRS Unknown Completed [facility] Pneumococcal Polysaccharide, PPSV23 (PNEUMOVAX) Unknown Completed [facility] TDAP Unknown Completed [facility] TDAP Unknown Completed [facility] TDAP Unknown Completed [facility] Influenza Virus Vaccine Quad IM 3+ YRS Unknown Completed [facility] Pneumococcal Polysaccharide, PPSV23 (PNEUMOVAX) Unknown Completed [facility] TDAP Unknown Completed [facility] TDAP Unknown Completed [facility] TDAP Unknown Completed [facility] Influenza Virus Vaccine Quad IM 3+ YRS Unknown Completed [facility] Pneumococcal Polysaccharide, PPSV23 (PNEUMOVAX) Unknown Completed [facility] TDAP Unknown Completed [facility] TDAP Unknown Completed [facility] TDAP Unknown Completed [facility] Influenza Virus Vaccine Quad IM 3+ YRS Unknown Completed [facility] Vital Signs Vital Name Observation Time Observation Value Comments S ource Systolic blood pressure 2023-06-28 23:34:00 141 mm[Hg] [facility] Diastolic blood pressure 2023-06-28 23:34:00 86 mm[Hg] [facility] Heart rate 2023-06-28 23:33:00 107 /min [facility] Body temperature 2023-06-28 23:33:00 36.83 Zainab [facility] Respiratory rate 2023-06-28 23:33:00 18 /min [facility] Body height 2023-06-28 23:33:00 154.9 cm [facility] Body weight 2023-06-28 23:33:00 121.972 kg [facility] BMI 2023-06-28 23:33:00 50.81 kg/m2 [facility] Oxygen saturation in Arterial blood by Pulse oximetry 2023-06-28 23:33:00 98 /min [facility] Systolic blood pressure 2023-03-07 16:14:00 153 mm[Hg] [facility] Diastolic blood pressure 2023-03-07 16:14:00 89 mm[Hg] [facility] Heart rate 2023-03-07 16:13:00 79 /min [facility] Body temperature 2023-03-07 16:13:00 36.44 Zainab [facility] Respiratory rate 2023-03-07 16:13:00 16 /min [facility] Body weight 2023-03-07 16:13:00 123.378 kg [facility] BMI 2023-03-07 16:13:00 51.39 kg/m2 [facility] Oxygen saturation in Arterial blood by Pulse oximetry 2023-03-07 16:13:00 98 /min [facility] Systolic blood pressure 2023-02-21 13:28:00 128 mm[Hg] [facility] Diastolic blood pressure 2023-02-21 13:28:00 75 mm[Hg] [facility] Heart rate 2023-02-21 13:28:00 65 /min [facility] Body temperature 2023-02-21 13:28:00 36 Zainab [facility] Respiratory rate 2023-02-21 13:28:00 18 /min [facility] Body height 2023-02-21 13:28:00 154.9 cm [facility] Body weight 2023-02-21 13:28:00 122.244 kg Univ [facility] BMI 2023-02-21 13:28:00 50.92 kg/m2 [facility] Systolic blood pressure 2022-11-24 20:34:00 155 mm[Hg] [facility] Diastolic blood pressure 2022-11-24 20:34:00 87 mm[Hg] [facility] Heart rate 2022-11-24 20:22:00 73 /min [facility] Body temperature 2022-11-24 20:22:00 36.67 Zainab [facility] Respiratory rate 2022-11-24 20:22:00 20 /min [facility] Body height 2022-11-24 20:22:00 154.9 cm [facility] Body weight 2022-11-24 20:22:00 123.605 kg [facility] BMI 2022-11-24 20:22:00 51.49 kg/m2 [facility] Oxygen saturation in Arterial blood by Pulse oximetry 2022-11-24 20:22:00 98 /min [facility] Systolic blood pressure 2022-07-17 15:56:00 137 mm[Hg] [facility] Diastolic blood pressure 2022-07-17 15:56:00 79 mm[Hg] [facility] Heart rate 2022-07-17 15:56:00 73 /min [facility] Body temperature 2022-07-17 15:56:00 37 Zainab [facility] Respiratory rate 2022-07-17 15:56:00 18 /min [facility] Body height 2022-07-17 15:56:00 154.9 cm [facility] Body weight 2022-07-17 15:56:00 123.242 kg [facility] BMI 2022-07-17 15:56:00 51.34 kg/m2 [facility] Oxygen saturation in Arterial blood by Pulse oximetry 2022-07-17 15:56:00 95 /min [facility] Systolic blood pressure 2022-06-13 00:43:00 152 mm[Hg] [facility] Diastolic blood pressure 2022-06-13 00:43:00 98 mm[Hg] [facility] Heart rate 2022-06-13 00:41:00 90 /min [facility] Body temperature 2022-06-13 00:41:00 37.17 Zainab [facility] Respiratory rate 2022-06-13 00:41:00 16 /min [facility] Body height 2022-06-13 00:41:00 154.9 cm [facility] Body weight 2022-06-13 00:41:00 126.508 kg [facility] BMI 2022-06-13 00:41:00 52.70 kg/m2 [facility] Oxygen saturation in Arterial blood by Pulse oximetry 2022-06-13 00:41:00 97 /min [facility] Systolic blood pressure 2022-04-14 18:03:00 126 mm[Hg] [facility] Diastolic blood pressure 2022-04-14 18:03:00 87 mm[Hg] [facility] Heart rate 2022-04-14 18:03:00 83 /min [facility] Body temperature 2022-04-14 18:03:00 36.89 Zainab [facility] Respiratory rate 2022-04-14 18:03:00 18 /min [facility] Body height 2022-04-14 18:03:00 154.9 cm [facility] Body weight 2022-04-14 18:03:00 126.508 kg [facility] BMI 2022-04-14 18:03:00 52.70 kg/m2 [facility] Oxygen saturation in Arterial blood by Pulse oximetry 2022-04-14 18:03:00 97 /min [facility] Body weight 2022-04-03 18:36:00 126.554 kg [facility] BMI 2022-04-03 18:36:00 52.72 kg/m2 [facility] Oxygen saturation in Arterial blood by Pulse oximetry 2022-04-03 18:36:00 97 /min [facility] Systolic blood pressure 2022-04-03 18:36:00 146 mm[Hg] [facility] Diastolic blood pressure 2022-04-03 18:36:00 86 mm[Hg] [facility] Heart rate 2022-04-03 18:36:00 84 /min [facility] Body temperature 2022-04-03 18:36:00 37.11 Zainab [facility] Respiratory rate 2022-04-03 18:36:00 18 /min [facility] Body height 2022-04-03 18:36:00 154.9 cm [facility] Systolic blood pressure 2022-03-19 14:01:00 154 mm[Hg] [facility] Diastolic blood pressure 2022-03-19 14:01:00 82 mm[Hg] [facility] Heart rate 2022-03-19 14:01:00 61 /min [facility] Body temperature 2022-03-19 14:01:00 36.83 Zainab [facility] Respiratory rate 2022-03-19 14:01:00 18 /min [facility] Body height 2022-03-19 14:01:00 154.9 cm [facility] Body weight 2022-03-19 14:01:00 124.739 kg [facility] BMI 2022-03-19 14:01:00 51.96 kg/m2 [facility] Oxygen saturation in Arterial blood by Pulse oximetry 2022-03-19 14:01:00 100 /min [facility] Systolic blood pressure 2021-10-01 18:26:00 111 mm[Hg] [facility] Diastolic blood pressure 2021-10-01 18:26:00 76 mm[Hg] [facility] Heart rate 2021-10-01 18:26:00 103 /min [facility] Body temperature 2021-10-01 18:26:00 36.89 Zainab [facility] Respiratory rate 2021-10-01 18:26:00 16 /min [facility] Body height 2021-10-01 18:26:00 154.9 cm [facility] Body weight 2021-10-01 18:26:00 129.048 kg [facility] BMI 2021-10-01 18:26:00 53.76 kg/m2 [facility] Oxygen saturation in Arterial blood by Pulse oximetry 2021-10-01 18:26:00 100 /min [facility] Heart rate 2020-08-04 21:50:00 74 /min [facility] Respiratory rate 2020-08-04 21:50:00 23 /min [facility] Oxygen saturation in Arterial blood by Pulse oximetry 2020-08-04 21:50:00 95 /min [facility] Systolic blood pressure 2020-08-04 21:35:00 106 mm[Hg] [facility] Diastolic blood pressure 2020-08-04 21:35:00 63 mm[Hg] [facility] Body temperature 2020-08-04 20:49:00 36.5 Zainab [facility] Body height 2020-08-04 18:08:00 154.9 cm [facility] Body weight 2020-08-04 18:08:00 124.739 kg [facility] BMI 2020-08-04 18:08:00 51.96 kg/m2 [facility] Heart rate 2020-08-04 21:50:00 74 /min [facility] Respiratory rate 2020-08-04 21:50:00 23 /min [facility] Oxygen saturation in Arterial blood by Pulse oximetry 2020-08-04 21:50:00 95 /min [facility] Systolic blood pressure 2020-08-04 21:35:00 106 mm[Hg] [facility] Diastolic blood pressure 2020-08-04 21:35:00 63 mm[Hg] [facility] Body temperature 2020-08-04 20:49:00 36.5 Zainab [facility] Body height 2020-08-04 18:08:00 [facility]9 [facility] 2020-08-04 18:08:00 124.739 [facility] 2020-08-04 18:08:00 51.96 kg/m2 [facility] Syst[facility] blood pressure 2020-06-05 18:07:00 123 mm[Hg] [place] [facility] Diastolic blood pressure 2020-06-05 18:07:00 75 mm[Hg] [facility] Heart rate 2020-06-05 18:07:00 70 /min [facility] 2020-06-05 18:07:00 36.72 Zainab [facility] Respiratory rate 2020-06-05 18:07:00 16 /min [facility] Body height 2020-06-05 18:07:00 156.2 cm [facility] Body weight 2020-06-05 18:07:00 129.91 kg [facility] BMI 2020-06-05 18:07:00 53.24 kg/m2 [facility] Body temperature 2020-05-31 20:10:00 36 Zainab [facility] Body weight 2020-05-31 20:10:00 128.822 kg [facility] BMI 2020-05-31 20:10:00 53.66 kg/m2 [facility] Systolic blood pressure 2020-04-06 18:35:00 138 mm[Hg] [facility] Diastolic blood pressure 2020-04-06 18:35:00 83 mm[Hg] [facility] Heart rate 2020-04-06 18:35:00 65 /min [facility] 2020-04-06 18:35:00 18 /min [facility] Body height 2020-04-06 18:35:00 154.9 cm [facility] 2020-04-06 18:35:00 122.018 [facility] 2020-04-06 18:35:00 50.83 kg/m2 [facility] Systolic blood pressure 2020-03-16 19:12:00 120 mm[Hg] [facility] Diastolic blood pressure 2020-03-16 19:12:00 80 mm[Hg] [place] [facility] Body height 2020-03-16 19:12:00 154.9 cm [facility] Body weight 2020-03-16 19:12:00 122.018 kg [facility] BMI 2020-03-16 19:12:00 50.83 kg/m2 [facility] Body height 2019-12-23 16:00:00 154.9 cm [facility] Body weight 2019-12-23 16:00:00 122.018 kg [facility] BMI 2019-12-23 16:00:00 50.83 kg/m2 [facility] Procedures Procedure Date / Time Performed Performing Clinician Source POCT SARS-COV-2 ANTIGEN (BINAX NOW) 2023-06-28 23:38:00 Cj Tierney [facility] POCT MOLECULAR STREP 2023-03-07 16:19:00 Unknown, Jayson goncalves [facility] URINE CULTURE 2023-02-21 14:14:00 Mirta Correa [facility] GC & CHLAMYDIA AMPLIFIED ASSAY 2023-02-21 14:14:00 Mirta Correa [facility] HIV 1/2 AG-AB WITH REFLEX 2023-02-21 14:14:00 Mirta Correa [facility] HIGH RISK HPV-THIN PREP 2023-02-21 14:14:00 Mirta Correa [facility] TRICHOMONAS AMPLIFIED ASSAY 2023-02-21 14:14:00 Mirta Correa [facility] PAP SMEAR-LIQUID BASED-CP 2023-02-21 14:14:00 Mirta Correa [facility] SYPHILIS IGG/IGM 2023-02-21 14:14:00 Jose Correa [facility] GARDASIL 9 (HPV 9V) VACCINE 2023-02-21 13:56:00 Mirta Correa [facility] NO SHOW OR MISSED APPOINTMENT POLICY ACKNOWLEDGEMENT 2023-02-21 12:59:00 Doctor Unassigned, [place] [facility] ASSIGNMENT OF BENEFITS 2022-11-24 20:15:38 Docto r Unassigned, [place] [facility] POCT TEST 2022-07-17 16:33:00 [facility] 2022-07-17 16:15:00 Nannette Juan [facility] XR KNEE 3 VW LEFT 2022-03-19 14:44:16 Lottie Garvin [facility] POCT TEST 2022-03-19 14:34:00 Jennifer Garvin [facility] COMP. METABOLIC PANEL (06843) 2022-03-19 14:27:00 Lottie Garvin [facility] CBC WITH DIFF 2022-03-19 14:27:00 Lottie Garvin [facility] PROTHROMBIN TIME / INR 2022-03-19 14:27:00 Esdras Garvin [facility] ACTIVATED PARTIAL THRMPLAS REMEDIOS 2022-03-19 14:27:00 Lottie Garvin [facility] URINALYSIS 2022-03-19 14:27:00 [facility] CONSENT/REFUSAL FOR DIAGNOSIS AND TREATMENT 2022-03-19 13:50:09 Doctor Unassigned, [place] [facility] CONSENT/REFUSAL FOR DIAGNOSIS AND TREATMENT 2021-10-01 18:15:24 Doctor Unassigned, [place] [facility] INTUBATION 2020-08-04 19:57:02 Luzma Almanza [facility] ASSIGNMENT OF BENEFITS 2020-08-04 16:10:14 Docto r Unassigned, [place] [facility] DISCLOSURE AND CONSENT, MEDICAL AND SURGICAL PROCEDURES 2020-07-05 05:01:00 Doctor Unassigned, [place] [facility] HIV 1/2 AG-AB WITH REFLEX 2020-06-05 19:04:00 Casie Ortega [facility] GALV ONLY - SYPHILIS IGG/IGM 2020-06-05 19:04:00 Casie Ortega [facility] XR WRIST 3+ VW LEFT 2020-05-31 19:46:46 ElhamTorey salvador [facility] MR WRIST LEFT WO CONTRAST 2020-03-31 20:18:12 Kami Bernard [facility] REFERRAL- REQUEST/RESPONSE 2020-03-23 05:01:00 D octor Unassigned, [place] SEDIMENTATION RATE 2019-12-23 17:06:00 Kami Bernard [facility] CBC WITH DIFFERENTIAL 2019-12-23 17:06:00 Jose R Bernard [facility] ASSIGNMENT OF BENEFITS 2019-12-23 15:57:07 Docto r Unassigned, [place] [facility] DME/SUPPLY JUSTIFICATION 2019-05-27 05:01:00 Doc tor Unassigned, [place] [facility] Encounters Start Date/Time End Date/Time Encounter Type Admission Type Attending [facility] Care Department Encounter ID Source 2021-08-24 19:16:32 Outpatient PAMELANANITOREY [facility] [id number] [facility] 2024-02-23 10:30:00 2024-02-23 10:30:00 Outpatient R DIANA MIRTA [facility] [id number] [facility] 2023-06-28 19:00:00 2023-06-28 19:00:00 Urgent Care Cj Tierney Unknown, Attending [facility] 1.2.840.114 350.1.13.10 4.2.7.2.686 [id number] [facility] 2023-06-28 19:00:00 2023-06-28 18:52:42 Outpatient R CJ TIERNEY [facility] [id number] [facility] 2023-03-07 11:40:00 2023-03-07 12:00:00 Urgent Care Regla Baez Unknown, Attending [facility] 1.2.840.114 350.1.13.10 4.2.7.2.686 [id number] 370 [id number] [facility] 2023-03-07 11:40:00 2023-03-07 11:40:00 Outpatient R STEVENAUNREGLA [facility] [id number] [facility] 2023-02-25 00:00:00 2023-02-25 00:00:00 Telephone Mirta Correa [facility] [employer] [facility] & CHILD [facility] 1..840.114 350.1.13.10 4.2.7.2.686 [id number] [facility] 2023-02-25 00:00:00 2023-02-25 00:00:00 Telephone Mirta Correa [facility] [employer] [facility] CHILD [facility] 1..840.114 350.1.13.10 4.2.7.2.686 [id number] [facility] 2023-02-24 00:00:00 2023-02-24 00:00:00 Telephone Mirta Correa [facility] [employer] [facility] CHILD [facility] 1..840.114 350.1.13.10 4.2.7.2.686 [id number] 107 [id number] [facility] 2023-02-24 00:00:00 2023-02-24 00:00:00 Patient Secure Msg Mirta Correa [facility] [employer] [facility] CHILD [facility] 1..840.114 350.1.13.10 4.2.7.2.686 [id number] 107 [id number] [facility] 2023-02-21 08:15:00 2023-02-21 09:14:08 Outpatient R MIRTA CORREA [facility] [id number] [facility] 2023-02-21 08:15:00 2023-02-21 09:14:08 Office Visit Mirta Correa [facility] [employer] [facility] CHILD [facility] 1.2.840.114 350.1.13.10 4.2.7.2.686 [id number] [facility] 2023-02-21 00:00:00 2023-02-21 00:00:00 Orders Only Doctor Unassigned, [facility] 1.2.840.114 350.1.13.10 4.2.7.2.686 [id number] [facility] 2023-02-19 00:00:00 2023-02-19 00:00:00 Case Management Jenniffer Hernandez 1.2.840.114 350.1.13.10 4.2.7.2.686 [id number] [facility] 2023-02-19 00:00:00 2023-02-19 00:00:00 Telephone Jenniffer Hernandez 1.2.840.114 350.1.13.10 4.2.7.2.686 [id number] [id number] [facility] 2022-12-04 00:00:00 2022-12-04 00:00:00 Telephone [facility] 1.2.840.114 350.1.13.10 4.2.7.2.686 [id number] 370 [id number] [facility] 2022-11-24 14:20:00 2022-11-24 14:40:00 Urgent Care Latonia Curtis Unknown, Attending [facility] 1.2.840.114 350.1.13.10 4.2.7.2.686 [id number] 370 [id number] [facility] 2022-11-24 14:20:00 2022-11-24 14:20:00 Outpatient R LATONIA CURTIS [facility] [id number] [facility] 2022-11-24 00:00:00 2022-11-24 00:00:00 Orders Only Doctor Unassigned, [facility] 1..840.114 350.1.13.10 4.2.7.2.686 [id number] [facility] 2022-07-20 00:00:00 2022-07-20 00:00:00 Telephone [facility]?CHOL[facility]lysses [facility] MEDICAL OFFICE BUILD[facility] 1.2.840.114 350.1.13.10 4.2.7.2.686 [id number] [facility] 2022-07-17 11:15:00 2022-07-17 11:29:07 Outpatient R DRAKE [facility] [id number] [facility] 2022-07-17 11:15:00 2022-07-17 11:29:07 [facility] MEDICAL OFFICE BUILDING 1.2.840.114 350.1.13.10 4.2.7.2.686 [id number] [facility] 2022-06-12 19:20:00 2022-06-12 19:47:11 Outpatient R TOREY CESAR [facility] [id number] [facility] 2022-06-12 19:20:00 2022-06-12 19:47:11 Urgent Care Torey Cesar Rania [facility] 1.2.840.114 350.1.13.10 4.2.7.2.686 [id number] 370 [id number] [facility] 2022-04-14 12:40:00 2022-04-14 13:52:43 Outpatient R REGLA BAEZ [facility] [id number] [facility] 2022-04-14 12:40:00 2022-04-14 13:52:43 [facility] 1.2.840.114 350.1.13.10 4.2.7.2.686 [id number] 370 [id number] [facility] 2022-04-03 14:20:00 2022-04-03 14:20:00 Urgent Care Bello Kurtz [facility]?KEISHA C[facility]FT MEDICAL OFFICE [facility] 1.2.840.114 350.1.13.10 4.2.7.2.686 [id number] 370 [id number] [facility] 2022-04-03 14:20:00 2022-04-03 14:03:55 Outpatient R HOUSTON BELLO [facility] [id number] [facility] 2022-03-19 09:01:00 2022-03-19 11:10:00 Emergency X [facility] ERT [id number] [facility] 2022-03-19 09:01:00 2022-03-19 11:10:00 Emergency Lottie Garvin [facility] 1.2.840.114 350.1.13.10 4.2.7.2.686 [id number] [facility] 2022-03-19 00:00:00 2022-03-19 00:00:00 Patient Secure Msg Doctor Unassigned, [facility] 1.2.840.114 350.1.13.10 4.2.7.2.686 [id number] [facility] 2022-03-19 00:00:00 2022-03-19 00:00:00 Orders Only Doctor Unassigned, [place] 1.2.840.114 350.1.13.10 4.2.7.2.686 [id number] [facility] 2021-10-01 15:00:00 2021-10-01 13:13:59 Outpatient NANNETTE MAGALLON [facility] [id number] [facility] 2021-10-01 12:15:40 2021-10-01 13:13:59 Urgent Care Nannette Juan [facility]?KEISHA [facility] MED[facility] OFF[facility]ILD[facility] 1.284.114 350.1.13.10 4.2.7.2.686 [id number] 370 [id number] [facility] 2021-10-01 00:00:00 2021-10-01 00:00:00 Orders Only Doctor Unassigned, [facility] 1.2.114 350.1.13.10 4.2.7.2.686 [id number] [facility] 2021-06-04 00:00:00 2021-06-04 00:00:00 Patient Secure Msg Ten Ortegaulysses Baird [facility] [employer] [facility] CHILD [facility] 1.84.114 350.1.13.10 4.2.7.2.686 [id number] [facility] 2021-01-15 00:00:00 2021-01-15 00:00:00 Patient Outreach Harjit Sneed Home [facility] 1.2840.114 350.1.13.10 4.2.7.2.686 [id number] 2021-01-15 00:00:00 2021-01-15 00:00:00 Patient Outreach Harjit Sneed Home [facility] 1.2840.114 350.1.13.10 4.2.7.2.686 [id number] [facility] 2020-10-16 00:00:00 2020-10-16 00:00:00 Patient Secure Msg Doctor Unassigned, [place] [facility] 1.284.114 350.1.13.10 4.2.7.2.686 [id number] [facility] 2020-08-23 14:00:00 2020-08-23 14:00:00 Outpatient R FAILLACE, TOREY [facility] [id number] [facility] 2020-08-22 00:00:00 2020-08-22 00:00:00 Patient Secure Msg ElhamTorey salvador [facility] 1.2.840.114 350.1.13.10 4.2.7.2.686 [id number] [facility] 2020-08-09 00:00:00 2020-08-09 00:00:00 Telephone [facility] AT [facility] 1.2.840.114 350.1.13.10 4.2.7.2.686 [id number] [facility] 2020-08-09 00:00:00 2020-08-09 00:00:00 Telephone [facility] AT [facility] 1.2.840.114 350.1.13.10 4.2.7.2.686 [id number] 2020-08-04 11:12:00 2020-08-04 17:25:00 [facility] 1.2.840.114 350.1.13.10 4.2.7.2.686 [id number] [facility] 2020-08-04 11:12:00 2020-08-04 17:25:00 Hospital Encounter [facility] ([facility]) 1.2.840.114 350.1.13.10 4.2.7.2.686 [id number] 2020-08-04 14:32:00 2020-08-04 15:44:00 Anesthesia Ashley Alas David K [facility] 1.2.840.114 350.1.13.10 4.2.7.2.686 [id number] [facility] 2020-08-04 14:32:00 2020-08-04 15:44:00 Anesthesia Ashley Alas David K [facility] 1.2.840.114 350.1.13.10 4.2.7.2.686 [id number] 2020-08-04 00:00:00 2020-08-04 00:00:00 Orders Only Doctor Unassigned, [place] 1.2840.114 350.1.13.10 4.2.7.2.686 [id number] [facility] 2020-08-04 00:00:00 2020-08-04 00:00:00 Orders Only Doctor Unassigned, [place] 1.2840.114 350.1.13.10 4.2.7.2.686 [id number] 2020-08-03 15:30:00 2020-08-03 15:30:00 Outpatient R [facility] [id number] [facility] 2020-08-03 14:49:11 2020-08-03 15:04:01 Laboratory Only Only, Adc Test [facility] 1.2840.114 350.1.13.10 4.2.7.2.686 [id number] [facility] 2020-08-03 14:49:11 2020-08-03 15:04:01 Laboratory Only Only, Adc Test [facility] 1.2.840.114 350.1.13.10 4.2.7.2.686 [id number] 2020-08-02 00:00:00 2020-08-02 00:00:00 Telephone Isab[facility] CARE [facility] AT [facility] 1.2.840.114 350.1.13.10 4.2.7.2.686 [id number] [facility] 2020-08-02 00:00:00 2020-08-02 00:00:00 Telephone Isabell [facility] 1.2840.114 350.1.13.10 4.2.7.2.686 [id number] [facility] 2020-07-21 00:00:00 2020-07-21 00:00:00 Patient Secure Msg Doctor Unassigned, [place] [facility] [employer] [facility] 1.2840.114 350.1.13.10 4.2.7.2.686 [id number] [facility] 2020-07-20 00:00:00 2020-07-20 00:00:00 Patient Secure Msg Elhamricardo [facility] C[facility] [place] [facility] 1.2840.114 350.1.13.10 4.2.7.2.686 [id number] [facility] 2020-07-19 00:00:00 2020-07-19 00:00:00 Telephone Isab[facility] CARE [place] [facility] 1.2840.114 350.1.13.10 4.2.7.2.686 [id number] [facility] 2020-07-07 00:00:00 2020-07-07 00:00:00 Patient Secure Msg Elhamricardo [facility] AT [facility] 1.2840.114 350.1.13.10 4.2.7.2.686 [id number] [facility] 2020-07-05 11:28:58 2020-07-05 11:38:58 Telemedici ne Visit Isabell [facility] CARE [facility] 1.2840.114 350.1.13.10 4.2.7.2.686 [id number] [facility] 2020-07-05 11:10:00 2020-07-05 11:10:00 Outpatient R TOREY WHYTE [facility] [id number] [facility] 2020-07-05 00:00:00 2020-07-05 00:00:00 Patient Secure Msg Doctor Unassigned, [place] [facility] [employer] [facility] 1.84.114 350.1.13.10 4.2.7.2.686 [id number] [facility] 2020-07-05 00:00:00 2020-07-05 00:00:00 Orders Only Doctor Unassigned, [facility] 1.284.114 350.1.13.10 4.2.7.2.686 [id number] [facility] 2020-06-21 13:30:00 2020-06-21 13:30:00 Outpatient R RUEL IQBAL [facility] [id number] [facility] 2020-06-20 00:00:00 2020-06-20 00:00:00 Patient Secure Msg Torey Whyte [facility] 1.840.114 350.1.13.10 4.2.7.2.686 [id number] [facility] 2020-06-19 16:19:58 2020-06-19 16:20:05 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, Ang-Rmchp Casie Ortega [facility] [employer] [facility]ILD [facility] 1.840.114 350.1.13.10 4.2.7.2.686 [id number] [facility] 2020-06-19 15:40:00 2020-06-19 15:40:00 Outpatient R TOREY WHYTE [facility] [id number] [facility] 2020-06-19 15:15:00 2020-06-19 15:15:00 Outpatient CASIE NOEL [facility] [id number] [facility] 2020-06-19 00:00:00 2020-06-19 00:00:00 Telephone Torey Whyte [facility] 1.840.114 350.1.13.10 4.2.7.2.686 [id number] [facility] 2020-06-16 00:00:00 2020-06-16 00:00:00 Patient Secure Msg Doctor Unassigned, [place] [facility] [employer] [facility] CHILD [facility] 1.2.840.114 350.1.13.10 4.2.7.2.686 [id number] [facility] 2020-06-13 00:00:00 2020-06-13 00:00:00 Patient Secure Msg Doctor Unassigned, [place] [facility] [employer] [facility] CHILD [facility] 1.2.840.114 350.1.13.10 4.2.7.2.686 [id number] [facility] 2020-06-12 00:00:00 2020-06-12 00:00:00 Telephone Casie Ortega [facility] [employer] [facility] 1.2840.114 350.1.13.10 4.2.7.2.686 [id number] [facility] 2020-06-06 00:00:00 2020-06-06 00:00:00 Telephone Casie Ortega [facility] [employer] [facility] 1.2.840.114 350.1.13.10 4.2.7.2.686 [id number] [facility] 2020-06-05 12:48:43 2020-06-05 14:03:05 Office Visit Casie Ortega [facility] [employer] [facility] 1.2.840.114 350.1.13.10 4.2.7.2.686 [id number] [facility] 2020-06-05 12:45:00 2020-06-05 12:45:00 Outpatient R CASIE ORTEGA [facility] [id number] [facility] 2020-05-31 14:36:23 2020-05-31 23:59:00 Hospital Encounter Torey Whyte [facility] 1.840.114 350.1.13.10 4.2.7.2.686 [id number] [facility] 2020-05-31 14:17:05 2020-05-31 15:56:27 Office Visit Torey Whyte [facility] 1.2840.114 350.1.13.10 4.2.7.2.686 [id number] [facility] 2020-05-31 14:30:00 2020-05-31 14:30:00 Outpatient R ELHAMTOREY SALVADOR [facility] [id number] [facility] 2020-04-24 00:00:00 2020-04-24 00:00:00 Patient Secure Msg Doctor Unassigned, [place] 1..840.114 350.1.13.10 4.2.7.2.686 [id number] [facility] 2020-04-12 13:00:00 2020-04-12 13:00:00 Outpatient R ELHAMRICARDO TOREY [facility] [id number] [facility] 2020-04-12 00:00:00 2020-04-12 00:00:00 Patient Secure Msg Doctor Unassigned, [place] [facility] [employer] [facility] 1..840.114 350.1.13.10 4.2.7.2.686 [id number] [facility] 2020-04-06 15:30:00 2020-04-06 15:30:00 Outpatient R KAMI BERNARD [facility] [id number] [facility] 2020-04-06 13:33:51 2020-04-06 14:02:35 Office Visit Kami Bernard [facility] 1..840.114 350.1.13.10 4.2.7.2.686 [id number] [facility] 2020-03-31 14:26:45 2020-03-31 23:59:00 Outpatient R KAMI BERNARD [facility] [id number] [facility] 2020-03-31 14:00:00 2020-03-31 23:59:00 Hospital Encounter Kami Bernard [facility] 1.2.840.114 350.1.13.10 4.2.7.2.686 [id number] [facility] 2020-03-23 00:00:00 2020-03-23 00:00:00 Orders Only Doctor Unassigned, [place] 1.2.840.114 350.1.13.10 4.2.7.2.686 [id number] [facility] 2020-03-22 00:00:00 2020-03-22 00:00:00 Telephone Kami Bernard [facility] [place] 1.2.840.114 350.1.13.10 4.2.7.2.686 [id number] [facility] 2020-03-16 14:10:26 2020-03-16 14:24:02 Office Visit Kami Bernard [facility] [place] 1.2.840.114 350.1.13.10 4.2.7.2.686 [id number] [facility] 2020-03-16 14:15:00 2020-03-16 14:15:00 Outpatient R KAMI BERNARD [facility] [id number] [facility] 2020-03-16 13:15:00 2020-03-16 13:15:00 Outpatient R KAMI BERNARD [facility] [id number] [facility] 2020-01-11 13:45:00 2020-01-11 13:45:00 Outpatient R JOHN RIVERA [facility] [id number] [facility] 2020-01-06 14:45:00 2020-01-06 14:45:00 Outpatient JOHN NAQVI [facility] [id number] [facility] 2019-12-30 10:15:00 2019-12-30 10:15:00 Outpatient R TERRY BERNARDIG [facility] [id number] [facility] 2019-12-30 00:00:00 2019-12-30 00:00:00 Patient Secure John Mcgovern [facility] 1.20.114 350.1.13.10 4.2.7.2.686 [id number] [facility] 2019-12-23 10:51:53 2019-12-23 11:06:53 [employer] Repairer Visit Pob, Ad[facility] Lab Main Frantz Kami [facility] 1.2.114 350.1.13.10 4.2.7.2.686 [id number] [facility] 2019-12-23 09:56:57 2019-12-23 10:15:25 Office Visit Frantz Kami Ramos [facility] [place] 1.2.114 350.1.13.10 4.2.7.2.686 [id number] [facility] 2019-12-23 10:15:00 2019-12-23 10:15:00 Outpatient R KAMI BERNARD [facility] [id number] [facility] 2019-12-23 00:00:00 2019-12-23 00:00:00 Orders Only Doctor Unassigned, [place] [facility] 1.2.114 350.1.13.10 4.2.7.2.686 [id number] [facility] 2019-05-27 00:00:00 2019-05-27 00:00:00 Orders Only Doctor Unassigned, [place] [facility] 1.2840.114 350.1.13.10 4.2.7.2.686 [id number] [facility] 2019-05-27 00:00:00 2019-05-27 00:00:00 Telephone Haja Abraham [facility] Harjeet Li [facility] 1.2840.114 350.1.13.10 4.2.7.2.686 [id number] [facility] 2014-05-30 00:00:00 2014-05-30 00:00:00 Patient Secure Msg Doctor Unassigned, [place] [facility] 1.840.114 350.1.13.10 4.2.7.2.686 [id number] [facility] Results Test Description Test Time Test Comments Results Result Co mments Source [facility] SARS-COV-2 ANTIGEN (BINAX NOW)2023-06-28 23:40:00* Test Item Value Reference Range Interpretation Comme nts POCT SARS-COV-2 ANTIGEN (test code = 17431-8) Not Detected Not Detected On board controls acceptable with C Line (test code = 3574) Yes FIONA (test code = FIONA) accurate developme nt and interpretation of all internal controls Lab Interpretation (test code = 20624-1) Normal [facility] MOLECULAR [id number] 16:26:28* Test Item Value Reference Range Interpretation Comme nts POCT Molecular Strep (test c ode = 74973-8) Negative Negative Lab Interpretation (test cod e = 42714-6) [facility]/[id number] 16:53:38* Test Item Value Reference Range Interpretation Comme nts Syphilis IgG/IgM (test code = 51701-4) Non-reactive Non-reactive FIONA (test code = FIONA) Non-reactive - No serologic evidence of T. pallidum infection. Cannot exclude incubating or early syphilis. Submit a second specimen in 2-4 weeks if syphilis is clinically suspected. Equivocal - Further testing to follow. Reactive - Further testing to follow. Lab Interpretation (test code = 81543-0) [facility]-AB WITH [id number] 05:24:24* Test Item Value Reference Range Interpretation Comme nts HIV Semi-quantitative (test code = 01507-6) 0.07 Negative FIONA (test code = FIONA) Non-reactive for HIV-1 antigen and HIV-1/HIV-2 antibodies. ?No laboratory evidence of HIV infection. ?Repeat in 2-4 weeks if acute HIV infection is suspected. [facility] [id number] 16:44:00* Test Item Value Reference Range Interpretation Comme nts POCT PREG (test code = 1605) Negative On board controls acceptable with C Line (test code = 3574) Yes POCT PREG LOT # (test code = 3575) [id number] POCT PREG TEST DATE (test code = 3576) FIONA (test code = FIONA) accurate developme nt and interpretation of all internal controls Lab Interpretation (test code = 76884-0) Normal [facility] URINALYSIS W SPECIFIC [id number] 16:16:00* Test Item Value Reference Range Interpretation [...] clear Lab Interpretation (test cod e = 87949-7) Normal [facility] WITH [id number] 15:36:23* Test Item Value Reference Range Interpretation Comme nts WBC (test code = 6690-2) See_Comment H [Automated messa ge] The system which generated this result transmitted reference range: 4.30 - 11.10 10*3/?L. The reference range was not used to interpret this result as normal/abnormal. RBC (test code = 789-8) See_Comment [Automated Home Environmental Systemsa ge] The system which generated this result [...] 33.6 g/dL 31.6-35.1 RDW-SD (test code = 13683-3) 43.0 fL 39.0-49.9 RDW-CV (test code = 788-0) 13.8 % 12.0-15.5 PLT (test code = 777-3) See_Comment [Automated Home Environmental Systemsa ge] The system which generated this result transmitted reference range: 166 - 358 10*3/?L. The reference range was not used to interpret this result as normal/abnormal. MPV (test code = 02048-2) 10.8 fL 9.5-12.9 NRBC/100 WBC (test code = 6816727686) See_Comment [Automated [employer]] The system which generated this result transmitted reference range: 0.0 - 10.0 /100 WBCs. The reference range was not used to interpret this result as normal/abnormal. NRBC x10^3 (test code = 9489844581) <0.01 See_Comment [Automated Home Environmental Systemsa ge] The system which generated this result transmitted reference range: 10*3/?L. The reference range was not used to interpret this result as normal/abnormal. GRAN MAT (NEUT) % (test code = 770-8) 59.6 % IMM GRAN % (test code = 8447550952) 0.40 % LYMPH % (test code = 736-9) 29.0 % MONO % (test code = 5905-5) 7.7 % EOS % (test code = 713-8) 2.9 % BASO % (test code = 706-2) 0.4 % GRAN MAT x10^3(ANC) (test code = 4633392662) 8.31 10*3/uL 1.88-7.09 H IMM GRAN x10^3 (test code = 0821159556) 0.06 10*3/uL 0.00-0.06 LYMPH x10^3 (test code = 731-0) 4.05 10*3/uL 1.32-3.29 H MONO x10^3 (test code = 742-7) 1.07 10*3/uL 0.33-0.92 H EOS x10^3 (test code = 711-2) 0.41 10*3/uL 0.03-0.39 H BASO x10^3 (test code = 704-7) 0.05 10*3/uL 0.01-0.07 REACT LYMPHS (test code = 3235946214) Rare Lab Interpretation (test code = 21975-0) Abnormal [facility] HospitalACTIVATED PARTIAL THRMPLAS [id number] 15:06:58* Test Item Value Reference Range Interpretation Comme [facility] APTT Patient (test code = 3173-2) See_Comment [Automated message] The system which generated this result transmitted reference range: 23 - 38 Seconds. The reference range was not used to interpret this result as normal/abnormal. FIONA (test code = FIONA) The [facility] patient population mean normal value for aPTT is 30 seconds. Lab Interpretation (test code = 56233-6) Normal [facility] HospitalPROTHROMBIN TIME / [id number] 15:04:57* Test Item Value Reference Range Interpretation Comme [facility] PROTIME PATIENT (test code = 5964-2) See_Comment [Automated messa ge] The system which generated this result transmitted reference range: 12.0 - 14.7 Seconds. The reference range was not used to interpret this result as normal/abnormal. INR (test code = 6301-6) Normal INR <1.1; Warfarin Therapeutic range 2.0 to 3.0 or 2.5 to 3.5, depending upon the indications. Lab Interpretation (test code = 33579-4) Normal [facility] HospitalCOMP. METABOLIC PANEL (97695)2022-03-19 14:58:33* Test Item Value Reference Range Interpretation Comme nts NA (test code = 8086155238) 141 mmol/L 135-145 K (test code = 5289939358) 4.3 mmol/L 3.5-5.0 CL (test code = 2041986214) 107 mmol/L 98-108 CO2 TOTAL (test code = 3957689155) 24 mmol/L 23-31 AGAP (test code = 8654040902) 2-16 BUN (test code = 9006004024) 11 mg/dL 7-23 GLUCOSE (test code = 5839528427) 116 mg/dL 70-110 H CREATININE (test code = 4054725291) 0.71 mg/dL 0.50-1.04 TOTAL BILI (test code = 1481624201) 0.5 mg/dL 0.1-1.1 CALCIUM (test code = 2667985012) 9.3 mg/dL 8.6-10.6 T PROTEIN (test code = 3667108469) 7.0 g/dL 6.3-8.2 ALBUMIN (test code = 3935717637) 4.3 g/dL 3.5-5.0 ALK PHOS (test code = 8392679330) 63 U/L 34-122 ALTv (test code = 1742-6) 48 U/L 5-35 H AST(SGOT) (test code = 8395671822) 33 U/L 13-40 eGFR (test code = 7535445256) mL/min/1.73m2 FIONA (test code = FIONA) Association [...] imaging tests). Lab Interpretation (test code = 11061-7) Abnormal [facility] HospitalPOCT [id number] 14:34:00* Test Item Value Reference Range Interpretation Comme nts POCT PREG (test code = 1605) negative On board controls acceptable with C Line (test code = 3574) present POCT PREG LOT # (test code = 3575) [id number] POCT PREG TEST DATE ( test code = 3576) 07-26-2023 Lab Interpretation (test cod e = 52777-3) [facility] HospitalIntubation2020-10-09 19:57:02HoLuzma Fairchild CRNA ? ? 08/04/2020 ?2:57 PMIntubationDate/Time: 08/04/2020 2:39 PMUrgency: elective Airway not difficult General Information and Staff Patient location during procedure: ORResident/SILO ERECTOR: Luzma Almanza CRNAPerformed: resident/SILO ERECTOR Indications and Patient ConditionIndications for airway management: [...] and BBS, teeth and lips per preop assessmentUnMethodist Mansfield Medical CenterGALV ONLY - SYPHILIS IGG/IGM 2020-06-06 13:57:00* Test Item Value Reference Range Interpretation Comme [facility] Syphilis IgG/IgM (test code = 98790-9) Non-reactive Non-reactive FIONA (test code = FIONA) Non-reactive - No serologic evidence of T. pallidum infection. Cannot exclude incubating or early syphilis. Submit a second specimen in 2-4 weeks if syphilis is clinically suspected. Equivocal - Further testing to follow. Reactive - Further testing to follow. Lab Interpretation (test code = 31171-3) [facility]HIV 1/2 AG-AB WITH [id number] 05:48:00* Test Item Value Reference Range Interpretation Comme [facility] HIV Semi-quantitative (test code = 77387-1) Negative Negative FIONA (test code = FIONA) Non-reactive for HIV-1 antigen and HIV-1/HIV-2 antibodies. ?No laboratory evidence of HIV infection. ?Repeat in 2-4 weeks if acute HIV infection is suspected. [facility] HospitalXR WRIST 3+ VW [id number] 20:09:52 Osteonecrosis of the lunate. Nonspecific swelling [...] of the lunate.Nonspecific swelling over the medial forearm.[facility] HospitalSEDIMENTATION [id number] 17:35:00* Test Item Value Reference Range Interpretation Comme [facility] ESR (test code = 6961240721) See_Comment [Automated Home Environmental Systemsa [employer]] The system which generated this result transmitted reference range: 0 - 20 mm/HR. The reference range was not used to interpret this result as normal/abnormal. Lab Interpretation (test code = 53587-6) Normal [facility] HospitalSEDIMENTATION [id number] 17:35:00* Test Item Value Reference Range Interpretation Comme nts ESR (test code = 4457975507) See_Comment [Automated messa ge] The system which generated this result transmitted reference range: 0 - 20 mm/HR. The reference range was not used to interpret this result as normal/abnormal. Lab Interpretation (test code = 54990-3) Normal [facility] WITH [id number] 17:10:00* Test Item Value Reference Range Interpretation [...] g/dL 31.6-35.1 L RDW-SD (test code = 47724-5) 45.0 fL 39-49.9 RDW-CV (test code = 788-0) 14.9 % 12-15.5 PLT (test code = 777-3) See_Comment [Automated messa ge] The system which generated this result transmitted reference range: 166 - 358 10*3/?L. The reference range was not used to interpret this result as normal/abnormal. MPV (test code = 91199-5) 10.0 fL 9.5-12.9 NRBC/100 WBC (test code = 4914726018) See_Comment [Automated [employer]] The system which generated this result transmitted reference range: 0.0 - 10.0 /100 WBCs. The reference range was not used to interpret this result as normal/abnormal. NRBC x10^3 (test code = 0207212694) <0.01 See_Comment [Automated messa ge] The system which generated this result transmitted reference range: 10*3/?L. The reference range was not used to interpret this result as normal/abnormal. GRAN MAT (NEUT) % (test code = 770-8) 60.7 % IMM GRAN % (test code = 5048965726) 0.50 % LYMPH % (test code = 736-9) 28.4 % MONO % (test code = 5905-5) 7.5 % EOS % (test code = 713-8) 2.5 % BASO % (test code = 706-2) 0.4 % GRAN MAT x10^3(ANC) (test code = 9925191553) 5.91 10*3/uL 1.88-7.09 IMM GRAN x10^3 (test code = 4404535785) 0.05 10*3/uL 0-0.06 LYMPH x10^3 (test code = 731-0) 2.76 10*3/uL 1.32-3.29 MONO x10^3 (test code = 742-7) 0.73 10*3/uL 0.33-0.92 EOS x10^3 (test code = 711-2) 0.24 10*3/uL 0.03-0.39 BASO x10^3 (test code = 704-7) 0.04 10*3/uL 0.01-0.07 Lab Interpretation (test code = 82877-6) Abnormal [facility] WITH [id number] 17:10:00* Test Item Value Reference Range Interpretation Comme nts WBC (test code = 6690-2) See_Comment [Automated messa ge] The system which generated this result transmitted reference range: 4.30 - 11.10 10*3/?L. The reference range was not used to interpret this result as normal/abnormal. RBC (test code = 789-8) See_Comment [Automated Home Environmental Systemsa ge] The system which generated this result [...] g/dL 31.6-35.1 L RDW-SD (test code = 06437-8) 45.0 fL 39-49.9 RDW-CV (test code = 788-0) 14.9 % 12-15.5 PLT (test code = 777-3) See_Comment [Automated Home Environmental Systemsa ge] The system which generated this result transmitted reference range: 166 - 358 10*3/?L. The reference range was not used to interpret this result as normal/abnormal. MPV (test code = 88850-9) 10.0 fL 9.5-12.9 NRBC/100 WBC (test code = 2185611330) See_Comment [Automated [employer]] The system which generated this result transmitted reference range: 0.0 - 10.0 /100 WBCs. The reference range was not used to interpret this result as normal/abnormal. NRBC x10^3 (test code = 0173964274) <0.01 See_Comment [Automated Home Environmental Systemsa ge] The system which generated this result transmitted reference range: 10*3/?L. The reference range was not used to interpret this result as normal/abnormal. GRAN MAT (NEUT) % (test code = 770-8) 60.7 % IMM GRAN % (test code = 9697845282) 0.50 % LYMPH % (test code = 736-9) 28.4 % MONO % (test code = 5905-5) 7.5 % EOS % (test code = 713-8) 2.5 % BASO % (test code = 706-2) 0.4 % GRAN MAT x10^3(ANC) (test code = 9841385008) 5.91 10*3/uL 1.88-7.09 IMM GRAN x10^3 (test code = 6312808891) 0.05 10*3/uL 0-0.06 LYMPH x10^3 (test code = 731-0) 2.76 10*3/uL 1.32-3.29 MONO x10^3 (test code = 742-7) 0.73 10*3/uL 0.33-0.92 EOS x10^3 (test code = 711-2) 0.24 10*3/uL 0.03-0.39 BASO x10^3 (test code = 704-7) 0.04 10*3/uL 0.01-0.07 Lab Interpretation (test code = 62248-2) Abnormal [facility]"
[2023-12-20 14:51] LABS: Absolute Lymphocytes (CBC) 4.6 K/uL (0.7-4.9); Hematocrit 41.2 % (36.0-45.0); Lymphocytes % 27.1 % (15.3-44.8); MCV 83.4 fL (80-100); MPV 8.4 fL (7.6-11.3); Platelets 305 thou/uL (152-406); RBC Red Blood Cell Count 4.94 M/uL (3.86-4.86)
--- NOTE | 2023-12-20 16:33 | RAD REPORT ---
EXAM DESCRIPTION: CT - Chest Abdomen Pelvis W Cont - 12/20/2023 3:37 pm CLINICAL HISTORY: Back and pelvic pain COMPARISON: [facility] Protocol dated 05/04/2023 TECHNIQUE: Thin axial CT images of the chest, abdomen, and pelvis, performed following intravenous a dministration of 100 mLmL Isovue-300. Multiplanar reformats were generated and reviewed. All CT scans are performed using dose optimization technique as appropriate and may include automated exposure control or mA/KV adjustment according to patient size. FINDINGS: The lungs are clear.No pleural or pericardial effusion.No intrathoracic adenopathy. The liver shows diffuse parenchymal hypoattenuation suggesting steatosis. Spleen, pancreas, adrenal g lands and kidneys are within normal limits apart from the presence of a small splenium and sub centim eter renal cortical cysts. No bowel obstruction, free air, free fluid or abscess. Status post appendicectomy. Bilateral adnexal small cysts with some peripheral enhancement along the right 2.6 cm cyst. These are favored to be phy siologic. No pathologic lymphadenopathy in the abdomen or pelvis. Bladder is decompressed limiting evaluation. No worrisome osseous finding. IMPRESSION: No acute findings. Diffuse hepatic steatosis. Other incidental findings as above.
--- NOTE | 2023-12-20 18:08 | ER ---
Nurse's Notes [facility] Name: Priscilla Solo Age: 38 yrs Sex: Female : 1985 Arrival Date: 12/20/2023 Time: 14:10 Bed 6 Private MD: None, None Diagnosis: Unspecified symptoms and signs involving the musculoskeletal system;Low back pain;Pain in right hip;Pain in left hip;Myalgia;Arthralgia Presentation: 12/20 14:23 Chief complaint: Patient states: She slipped and fell 2 days ago. Pt states that when cm10 she fell, she landed on her back. Pt denies hitting her head and no LOC. Pt reports pain to her back and hips. Coronavirus screen: Vaccine status: Patient reports receiving the 2nd dose of the covid vaccine. Client denies travel out of the [place] in the last 14 days. Ebola Screen: Patient denies travel to an Ebola-affected area in the 21 days before illness onset. No symptoms or risks identified at this time. Initial Sepsis Screen: Does the patient meet any 2 criteria? No. Patient's initial sepsis screen is negative. Does the patient have a suspected source of infection? No. Patient's initial sepsis screen is negative. Risk Assessment: Do you want to hurt yourself or someone else? Patient reports no desire to harm self or others. Onset of symptoms was December 20, 2023. 14:23 Method Of Arrival: Wheelchair cm10 14:23 Acuity: ERIC 4 cm10 Historical: - Allergies: 14:25 Lamictal; cm10 14:25 Latex; cm10 14:25 Morphine; cm10 - PMHx: 14:25 ADD/ADHD; Anxiety; Asthma; cardiomyopathy; CHF; Hypertension; cm10 - PSHx: 14:25 Appendectomy; section; L wrist SX x 2; tubal ligation; cm10 - Immunization history:: Adult Immunizations up to date. - Social history:: Smoking status: Patient denies any tobacco usage or history of. Screenin:35 [facility] ED Fall Risk Assessment (Adult) History of falling in the last 3 months, aa5 including since admission Yes- single mechanical fall (1 pt) Confusion or Disorientation No (0 pts) Intoxicated or Sedated No (0 pts) Impaired Gait Yes (1 pt) Mobility Assist Device Used No (0 pt) Altered Elimination No (0 pt) Score/Fall Risk Level 0 - 2 = Low Risk Oriented to surroundings, Maintained a safe environment, Educated pt \\T\\ family on fall prevention, incl call for assistance when getting out of bed. Abuse screen: Denies threats or abuse. Nutritional screening: No deficits noted. Tuberculosis screening: No symptoms or risk factors identified. Assessment: 14:25 General: Appears uncomfortable, Behavior is uncooperative. Pain: Complains of pain in aa5 lumbar area, left low back and right low back, right hip, and left hip Pain currently is 8 out of 10 on a pain scale. Quality of pain is described as sharp, Pain began 2-3 days ago. Is continuous, Aggravated by increased activity, repositioning. Neuro: Level of Consciousness is awake, alert, obeys commands, Oriented to person, place, time, situation. Cardiovascular: Patient's skin is warm and dry. Respiratory: Airway is patent Respiratory effort is even, unlabored, Respiratory pattern is regular, symmetrical. GI: Abdomen is obese. : No signs and/or symptoms were reported regarding the genitourinary system. EENT: No signs and/or symptoms were reported regarding the EENT system. Derm: Skin is pink, warm \\T\\ dry. Musculoskeletal: Range of motion: intact in all extremities. 14:25 Injury Description: Pt reports fall 2 days ago, pt states "I tripped over my kid's toys aa5 and fell onto my back". 14:50 Reassessment: Patient is alert, oriented x 3, equal unlabored respirations, skin aa5 warm/dry/pink. 15:20 Reassessment: Patient is alert, oriented x 3, equal unlabored respirations, skin aa5 warm/dry/pink. Patient states feeling better. Patient states symptoms have improved. 18:10 Reassessment: Patient is alert, oriented x 3, equal unlabored respirations, skin aa5 warm/dry/pink. Pt states "the pain is back" . 18:50 Reassessment: Patient is alert, oriented x 3, equal unlabored respirations, skin aa5 warm/dry/pink. Patient states feeling better. Vital Signs: 14:23 BP 143 / 88; Pulse 88; Resp 18; Temp 97.1; Pulse Ox 99% on R/A; Weight 122.47 kg; cm10 Height 5 ft. 1 in. ; Pain 8/10; 18:10 BP 138 / 80; Pulse 85; Resp 18 S; Pulse Ox 99% on R/A; aa5 14:23 Body Mass Index 51.02 (122.47 kg, 154.94 cm) cm10 14:23 Pain Scale: Adult cm10 ED Course: 14:14 Patient arrived in ED. mr 14:14 None, None is Private Physician. mr 14:18 Jose Barreto MD is Attending Physician. kdr 14:22 Ashtyn Brand, MARE is Primary Nurse. aa5 14:25 Triage completed. cm10 14:25 Arm band placed on Patient placed in an exam room, on a stretcher. cm10 14:25 Patient has correct armband on for positive identification. Placed in gown. Bed in low aa5 position. Call light in reach. Side rails up X2. Pulse ox on. NIBP on. 14:40 Inserted saline lock: 20 gauge in left antecubital area, using aseptic technique. Blood cp4 collected. 15:39 CT Chest, Abdomen, Pelvis - W/Contrast In Process Unspecified. EDMS 18:50 No provider procedures requiring assistance completed. IV discontinued, intact, aa5 bleeding controlled, No redness/swelling at site. Pressure dressing applied. Administered Medications: 14:50 Drug: HYDROmorphone IVP 1 mg IVP once Route: IVP; Site: left antecubital; aa5 15:00 Follow up: Response: No adverse reaction aa5 14:50 Drug: Ondansetron IVP 4 mg IVP once; over 2 minutes Route: IVP; Site: left antecubital; aa5 15:00 Follow up: Response: No adverse reaction aa5 14:50 Drug: NS 0.9% IV 1000 ml IV at 1 bolus Per protocol; 1000 mL bolus Route: IV; Rate: 1 aa5 bolus; Site: left antecubital; 15:40 Follow up: IV Status: Completed infusion; IV Intake: 1000ml aa5 14:50 Drug: MethylPrednisoLONE IVP 125 mg IVP once Route: IVP; Site: left antecubital; aa5 15:00 Follow up: Response: No adverse reaction aa5 14:50 Drug: Ketorolac IVP 15 mg IVP once Route: IVP; Site: left antecubital; aa5 15:00 Follow up: Response: No adverse reaction aa5 14:50 Drug: Methocarbamol IVPB 1 grams IVPB once over 1 hrs; (mix in NS 100 mL) Route: IVPB; aa5 Infused Over: 1 hrs; Site: left antecubital; 15:50 Follow up: Response: No adverse reaction; IV Status: Completed infusion aa5 18:10 Drug: HYDROmorphone IVP 1 mg IVP once Route: IVP; Site: left antecubital; aa5 18:20 Follow up: Response: No adverse reaction aa5 18:10 Drug: Ketorolac IVP 15 mg IVP once Route: IVP; Site: left antecubital; aa5 18:20 Follow up: Response: No adverse reaction aa5 18:10 Drug: Cyclobenzaprine PO 10 mg PO once Route: PO; aa5 18:50 Follow up: Response: No adverse reaction aa5 18:10 Drug: Ondansetron IVP 4 mg IVP once; over 2 minutes Route: IVP; Site: left antecubital; aa5 18:20 Follow up: Response: No adverse reaction aa5 Medication: 18:50 VIS not applicable for this client. aa5 Intake: 15:40 IV: 1000ml; Total: 1000ml. aa5 Outcome: 18:07 Discharge ordered by . kdr 18:50 Discharged to home via wheelchair, with family, aa5 18:50 Condition: improved 18:50 Discharge instructions given to patient, Instructed on discharge instructions, follow up and referral plans. medication usage, Demonstrated understanding of instructions, follow-up care, medications, Prescriptions given X 4, 18:59 Patient left the ED. aa5 Signatures: Dispatcher [employer] EDMN Jose Barreto MD MD kdr Jayla Garcia, Reg Reg mr Ashtyn Brand, RN RN aa5 Isis Lopez RN RN cm10 Bertha Jimenez cp4 Corrections: (The following items were deleted from the chart) 19:09 18:50 Discharge instructions given to patient, Instructed on discharge instructions, aa5 follow up and referral plans. medication usage, Demonstrated understanding of instructions, follow-up care, medications, Prescriptions given X 3, aa5
--- NOTE | 2023-12-20 18:08 | EDPHYS ---
Physician Documentation [facility] Name: Priscilla Solo Age: 38 yrs Sex: Female : 1985 Arrival Date: 12/20/2023 Time: 14:10 Bed 6 Private MD: None, None ED Physician Jose Barreto HPI: 12/20 19:00 This 38 yrs old Female presents to ER via Wheelchair with complaints of Back Pain, Fall kdr Injury, Hip Pain. 19:00 Patient states that she slipped and fell 2 days ago. She states that she fell on a kdr child's toy landed on her back. Since then she has been in tremendous amount of pain from her upper spine down through her pelvis and into her hips. Patient states she feels that her hips may have been dislocated because they popped shortly after she was on the ground.. Onset: The symptoms/episode began/occurred suddenly, 2 day(s) ago. Severity of symptoms: At their worst the symptoms were moderate severe incapacitating just prior to arrival, in the emergency department the symptoms. The patient has not experienced similar symptoms in the past. The patient has not recently seen a physician. Historical: - Allergies: 14:25 Lamictal; cm10 14:25 Latex; cm10 14:25 Morphine; cm10 - PMHx: 14:25 ADD/ADHD; Anxiety; Asthma; cardiomyopathy; CHF; Hypertension; cm10 - PSHx: 14:25 Appendectomy; section; L wrist SX x 2; tubal ligation; cm10 - Immunization history:: Adult Immunizations up to date. - Social history:: Smoking status: Patient denies any tobacco usage or history of. ROS: 19:00 Constitutional: Negative for fever, chills, and weight loss, Eyes: Negative for injury, kdr pain, redness, and discharge, ENT: Negative for injury, pain, and discharge, Neck: Negative for injury, pain, and swelling, Cardiovascular: Negative for chest pain, palpitations, and edema, Respiratory: Negative for shortness of breath, cough, wheezing, and pleuritic chest pain, Abdomen/GI: Negative for abdominal pain, nausea, vomiting, diarrhea, and constipation, Skin: Negative for injury, rash, and discoloration, Neuro: Negative for headache, weakness, numbness, tingling, and seizure activity. Psych: Negative for depression, anxiety, suicide ideation, homicidal ideation, and hallucinations, Allergy/Immunology: Negative for hives, rash, and allergies, Endocrine: Negative for neck swelling, polydipsia, polyuria, polyphagia, and marked weight changes, Hematologic/Lymphatic: Negative for swollen nodes, abnormal bleeding, and unusual bruising, 19:00 Back: Positive for injury or acute deformity, decreased range of motion, pain at rest, pain with movement, of the thoracic area, low back area, mid back area and left low back, 19:08 : Negative for injury or acute deformity, urinary symptoms, urinary frequency, small kdr amounts, hematuria, Denies any loss of control of bowel or bladder, Exam: 19:00 Constitutional: This is a well developed, well nourished patient who is awake, alert, kdr and in no acute distress. Head/Face: Normocephalic, atraumatic. Eyes: Pupils equal round and reactive to light, extra-ocular motions intact. Lids and lashes normal. Conjunctiva and sclera are non-icteric and not injected. Cornea within normal limits. Periorbital areas with no swelling, redness, or edema. Neck: Trachea midline, no thyromegaly or masses palpated, and no cervical lymphadenopathy. Supple, full range of motion without nuchal rigidity, or vertebral point tenderness. No Meningismus. Chest/axilla: Normal chest wall appearance and motion. Nontender with no deformity. No lesions are appreciated. Cardiovascular: Regular rate and rhythm with a normal S1 and S2. No gallops, murmurs, or rubs. Normal PMI, no JVD. No pulse deficits. Respiratory: Lungs have equal breath sounds bilaterally, clear to auscultation and percussion. No rales, rhonchi or wheezes noted. No increased work of breathing, no retractions or nasal flaring. Abdomen/GI: Soft, non-tender, with normal bowel sounds. No distension or tympany. No guarding or rebound. No evidence of tenderness throughout. Skin: Warm, dry with normal turgor. Normal color with no rashes, no lesions, and no evidence of cellulitis. MS/ Extremity: Pulses equal, no cyanosis. Neurovascular intact. Full, normal range of motion. Neuro: Awake and alert, GCS 15, oriented to person, place, time, and situation. Cranial nerves II-XII grossly intact. Motor strength 5/5 in all extremities. Sensory grossly intact. Cerebellar exam normal. Normal gait. Psych: Awake, alert, with orientation to person, place and time. Behavior, mood, and affect are within normal limits. Vital Signs: 14:23 BP 143 / 88; Pulse 88; Resp 18; Temp 97.1; Pulse Ox 99% on R/A; Weight 122.47 kg; cm10 Height 5 ft. 1 in. ; Pain 8/10; 18:10 BP 138 / 80; Pulse 85; Resp 18 S; Pulse Ox 99% on R/A; aa5 14:23 Body Mass Index 51.02 (122.47 kg, 154.94 cm) cm10 14:23 Pain Scale: Adult cm10 MDM: 18:07 Patient medically screened. [facility] 12/20 14:29 Order name: Basic Metabolic Panel; Complete Time: 15:25 kdr 12/20 14:29 Order name: CBC with Diff; Complete Time: 15:25 [facility] 12/20 14:29 Order name: CT Chest, Abdomen, Pelvis - W/Contrast; Complete Time: 16:39 kdr 12/20 14:29 Order name: Labs collected and sent; Complete Time: 14:42 kdr Administered Medications: 14:50 Drug: HYDROmorphone IVP 1 mg IVP once Route: IVP; Site: left antecubital; aa5 15:00 Follow up: Response: No adverse reaction aa5 14:50 Drug: Ondansetron IVP 4 mg IVP once; over 2 minutes Route: IVP; Site: left antecubital; aa5 15:00 Follow up: Response: No adverse reaction aa5 14:50 Drug: NS 0.9% IV 1000 ml IV at 1 bolus Per protocol; 1000 mL bolus Route: IV; Rate: 1 aa5 bolus; Site: left antecubital; 15:40 Follow up: IV Status: Completed infusion; IV Intake: 1000ml aa5 14:50 Drug: MethylPrednisoLONE IVP 125 mg IVP once Route: IVP; Site: left antecubital; aa5 15:00 Follow up: Response: No adverse reaction aa5 14:50 Drug: Ketorolac IVP 15 mg IVP once Route: IVP; Site: left antecubital; aa5 15:00 Follow up: Response: No adverse reaction aa5 14:50 Drug: Methocarbamol IVPB 1 grams IVPB once over 1 hrs; (mix in NS 100 mL) Route: IVPB; aa5 Infused Over: 1 hrs; Site: left antecubital; 15:50 Follow up: Response: No adverse reaction; IV Status: Completed infusion aa5 18:10 Drug: HYDROmorphone IVP 1 mg IVP once Route: IVP; Site: left antecubital; aa5 18:20 Follow up: Response: No adverse reaction aa5 18:10 Drug: Ketorolac IVP 15 mg IVP once Route: IVP; Site: left antecubital; aa5 18:20 Follow up: Response: No adverse reaction aa5 18:10 Drug: Cyclobenzaprine PO 10 mg PO once Route: PO; aa5 18:50 Follow up: Response: No adverse reaction aa5 18:10 Drug: Ondansetron IVP 4 mg IVP once; over 2 minutes Route: IVP; Site: left antecubital; aa5 18:20 Follow up: Response: No adverse reaction aa5 Disposition Summary: 12/20/23 18:07 Discharge Ordered Notes: Location: Home kdr Problem: new kdr Symptoms: have improved kdr Condition: Stable kdr Diagnosis - Unspecified symptoms and signs involving the musculoskeletal system kdr - Low back pain kdr - Pain in right hip kdr - Pain in left hip kdr - Myalgia kdr - Arthralgia kdr Followup: kdr - With: Private Physician - When: 2 - 3 days - Reason: If symptoms return, Further diagnostic work-up, Recheck today's complaints, Continuance of care, Re-evaluation by your physician Discharge Instructions: - Discharge Summary Sheet kdr - Acute Back Pain, Adult kdr - Musculoskeletal Pain kdr - Muscle Pain, Adult kdr - Hip Pain kdr - Back Exercises, [id number] kdr - Joint Pain, [id number] kdr Forms: - Medication Reconciliation Form kdr - Thank You Letter kdr - Prescription Opioid Use kdr - Patient Portal Instructions kdr - Leadership Thank You Letter kdr Prescriptions: - acetaminophen-codeine 300-30 mg Oral tablet - take 2 tablet ORAL route every 4 to 6 hours as needed for pain; 16 tablet; kdr Refills: 0, Product Selection Permitted - methocarbamol 750 mg Oral tablet - take 2 tablet ORAL route every 8 hours for 48 hours; 16 tablet; Refills: 0, kdr Product Selection Permitted - Ibuprofen 800 mg Oral Tablet - take 1 tablet ORAL route every 8 hours As needed take with food; 30 tablet; kdr Refills: 0, Product Selection Permitted - Medrol (Konstantin) 4 mg Oral Tablets, Dose Pack - take 1 tablet ORAL route as directed - follow package instructions; 1 packet; kdr Refills: 0, Product Selection Permitted Signatures: DispJose Badillo MD MD kdr Calderon, Audri, RN RN aa5 Isis Lopez RN RN cm10
[2023-12-20 19:15] VITALS: BP 143/88; TEMP 97.1; O2SAT 99
== END ==
LOC: ER 14:10
DX: R29.91 Unspecified symptoms and signs involving the musculoskeletal system (principal); M25.552 Pain in left hip; M25.551 Pain in right hip; M54.50 Low back pain, unspecified; M79.10 Myalgia, unspecified site; M25.50 Pain in unspecified joint; Z88.5 Allergy status to narcotic agent; Z88.8 Allergy status to other drugs, medicaments and biological substances; Z91.040 Latex allergy status
CPT/HCPCS: 85025; 80048; 36415; 71260; 74177; Q9967; J1170 ×2; J2930; J2405 ×2; J2800; J7030; 96365; 96375; 99284

== ENCOUNTER 2024-02-11 09:40 | Emergency (ER) | payer OTHER ==
--- OUTSIDE RECORDS SUMMARY | 2024-02-11 09:46 | XMS REPORT | Continuity of Care Document ---
Author Name Unknown Address [address] [facility] [address] [place] [address] [facility] Address [address] [facility] [place] [address] Care Team Providers Care Cattyman Name Role Phone Marleny Floyd Primary Care Physician TOREY WHYTE Attending Clinician Unavailable MIRTA CORREA Attending Clinician Unavail able Amelia aKt MD Attending Clinician AMELIA KAT Attending Clinician Unavail able Unknown, Attending Attending Clinician Unavailab Cj Decker Attending Clinician [phone] CJ TIERNEY Attending Clinician Unavailable Regla Solano Attending Clinician + [phone] REGLA BAEZ Attending Clinician Unavailab Mirta Hale Attending Clinician + Doctor Unassigned, [place] Attending Clinician U tere Hernandez RN, Jenniffer Ramos Attending Clinician UnaLatonia Nesbitt Attending Clinician [phone] Bello Arango Attending Clinician [phone] NANNETTE JUAN Attending Clinician Unavailable Drake LATIF, Nannette Attending Clinician [phone] TOREY CESAR Attending Clinician Unavailable Torey Cesar PA-C Attending Clinician [phone] BELLO KURTZ Attending Clinician Unavailable LOTTIE GARVIN Attending Clinician Unavailable Lottie Garvin MD Attending Clinician [phone] Casie Whipple Attending Clinician Unava ilable Harjit Sneed DO Attending Clinician [phone] Torey Whyte MD Attending Clinician [phone] Ashley Alas RN Attending Clinician Unavailab Mirza Batista MD Attending Clinician [phone] Only, Adc Test Attending Clinician Unavailable RUEL IQBAL Attending Clinician Unavailable Lab, [facility] Attending Clinician Unavailable CASIE ORTEGA Attending Clinician Unavailab KAMI Castano Attending Clinician UnavailKami Llamas MD Attending Clinician [phone] JOHN RIVERA Attending Clinician Unavailable John Arenas Attending Clinician [phone] Pob, [facility] Main Attending Clinician Unavailabl aHja Ramsey DO Attending Clinician [phone] TOREY WHYTE Admitting Clinician Unavailable LOTTIE GARVIN Admitting Clinician Unavailable Torey Whyte MD Admitting Clinician [phone] KAMI BERNARD Admitting Clinician Unavailron valencia Payers Payer Name Policy Type Policy Number Effective Date Expirati on Date Source [facility] [id number] 2012 00:00:00 Problems Condition Name Condition Details Condition Category Status Onset Date Resolution Date Last Treatment Date Treating Clinician Comments Source Encounter for contracept toñito management , unspecifie d type Encounter for contracept toñito management , unspecifie d type Disease Active 01-27 00:00: 00 [facility] Encounter for contracept toñito management , unspecifie d type Encounter for contracept toiñto management , unspecifie d type Disease Active 01-27 00:00: 00 [facility] History of bilateral tubal ligation History of bilateral tubal ligation Disease Active 01-27 00:00: 00 [facility] Morbid obesity Morbid obesity Disease Active 01-27 00:00: 00 [facility] BMI 50.0-59.9, adult BMI 50.0-59.9, adult Disease Active 01-27 00:00: 00 [facility] Research study patient Research study patient Disease Active 12-12 00:00: 00 Overview: Formattin g of this note is different from the original. Patient is in the HCTZ study IRB # [id number] y questions please contact:Rachel Manley MD [phone] Hightower MD [phone] Frias MD [phone] facts Patient randomize d after delivery if they met inclusion criteria a nd accepted Medicati on comes from [facility] not pharmacy, [facility] Phone Number Ext. 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 Manley with any Questions [facility] Pain pelvic Pain pelvic Disease Active 12-14 00:00: 00 [facility] Depression Depression Disease Active 05-18 00:00: 00 [facility] Asthma Asthma Disease Active 05-18 00:00: 00 Overview: Formattin g of this note might be different from the original. ICD10 Diagnosis Term Compliance Counsel Utility [facility] Allergies, Adverse Reactions, Alerts Allergy Name Allergy Type Status Severity Reaction(s) Onset Date Inactive Date Treating Clinician Comments Source Morphine Drug Allergy Active Itching 2019-10 00:00: 00 [facility] MORPHINE DRUG INGREDI Active Low ITCHING 2019-10 00:00: 00 [facility] Latex Propensi ty to adverse reaction s Active Rash 12-11 00:00: 00 [facility] LATEX DRUG INGREDI Active Rash 12-11 00:00: 00 [facility] Social History Social Habit Start Date Stop Date Quantity Comments Source Gender [facility] 2023-11-18 00:00:00 2023-11-18 00:00:00 0 /d [facility] Exposure to SARS-CoV-2 (event) 2023-02-25 00:00:00 2023-03-07 11:03:00 Not sure [facility] History of Social function 2022-07-17 00:00:00 2022-07-17 00:00:00 [facility] Tobacco use and exposure 2022-06-12 00:00:00 2022-06-12 00:00:00 Smokeless tobacco non-user [facility] Alcohol Comment 2014-05-18 00:00:00 2014-05-18 00:00:00 rarely [facility] Sex Assigned At 1985 00:00:00 1985 00:00:00 [facility] Smoking Status Start Date Stop Date Source Never smoked tobacco [facility] Medications Ordered Medication Name Filled Medication Name Start Date Stop Date Current Medication? Ordering Clinician Indication Dosage Frequency Signature (SIG) Comments Components Source SYMBICORT 160-4.5 mcg/actuati on inhaler 02-05 00:00: 00 Yes [id number] 2{puff} Inhale 2 Puffs in the morning and 2 Puffs in the evening. [facility] albuterol 90 mcg/actuati on inhaler 02-01 00:00: 00 Yes [id number] 2{puff} Inhale 2 Puffs every 6 (six) hours as needed for Wheezing or Shortness of Breath. [facility] fluconazole (DIFLUCAN) 150 mg tablet 02-01 00:00: 00 Yes [id number] Take 1 tab by mouth now and repeat in 3 days [facility] azithromyci n (ZITHROMAX Z-ANUEL) 250 mg tablet 02-01 00:00: 00 02-07 04:59 :00 Yes [id number] 250mg Take 1 tablet by mouth in the morning for 5 days. Please dispense a z pack [facility] budesonide- formoteroL (SYMBICORT) 160-4.5 mcg/actuati on inhaler 02-01 00:00: 00 02-05 00:00 :00 No [id number] 2{puff} Inhale 2 Puffs in the morning and 2 Puffs in the evening. [facility] azithromyci n 500 mg tablet 02-01 00:00: 00 02-01 00:00 :00 No [id number] 500mg Take 1 tablet by mouth SEE-INSTRU CTIONS. [facility] benzonatate 200 mg capsule 03-07 00:00: 00 03-18 04:59 :00 No [id number] 200mg Take 1 capsule by mouth 3 (three) times daily as needed for Cough for up to 10 days. [facility] fluconazole (DIFLUCAN) 150 mg tablet 03-07 00:00: 00 03-08 04:59 :00 No [id number] 150mg Take 1 tablet by mouth once now for 1 dose. [facility] metroNIDAZO LE 500 mg tablet 02-25 00:00: 00 02-26 04:59 :00 No [id number] 2000mg Take 4 tablets by mouth once now for 1 dose. [facility] ampicillin 500 mg capsule 02-24 00:00: 00 03-07 04:59 :00 No [id number] 500mg Take 1 capsule by mouth 4 (four) times daily for 10 days. [facility] fluconazole (DIFLUCAN) 150 mg tablet 02-21 00:00: 00 02-22 04:59 :00 No [id number] 150mg Take 1 tablet by mouth once now for 1 dose. [facility] cetirizine (ZYRTEC) 10 mg tablet 11-24 00:00: 00 Yes [id number] 10mg Take 1 tablet by mouth in the morning. [facility] Nebulizer Accessories (ADULT AEROSOL MASK) Misc 11-24 00:00: 00 Yes [id number] Use as directed [facility] fluconazole (DIFLUCAN) 150 mg tablet 11-24 00:00: 00 02-01 00:00 :00 No [id number] Take 1 tab by mouth now and repeat in 3 days [facility] albuterol 2.5 mg/0.5 mL nebulizer solution 11-24 00:00: 00 12-25 05:59 :00 No [id number] 2.5mg Inhale 0.5 mL every 6 (six) hours as needed for Wheezing for up to 30 days. [facility] amoxicillin -clavulanat e (AUGMENTIN) 875-125 mg per tablet 11-24 00:00: 00 12-05 05:59 :00 No [id number] 1{tbl} Take 1 tablet by mouth in the morning and 1 tablet in the evening. Do all this for 10 days. [facility] sulfamethox azole-trime thoprim (BACTRIM DS) 800-160 mg per tablet 07-20 00:00: 00 07-28 04:59 :00 No [id number] 1{tbl} Take 1 tablet by mouth in the morning and 1 tablet in the evening. Do all this for 7 days. [facility] ondansetron 4 mg disintegrat ing tablet 07-17 00:00: 00 02-21 00:00 :00 No [id number] 4mg Take 1 tablet by mouth every 8 (eight) hours as needed for Nausea and Vomiting (N/V). [facility] cetirizine (ZYRTEC) 10 mg tablet 07-17 00:00: 00 11-24 00:00 :00 No [id number] 10mg Take 1 tablet by mouth in the morning. [facility] polymyxin B sulf-trimet hoprim 10,000 unit- 1 mg/mL ophthalmic drops 07-17 00:00: 00 07-25 04:59 :00 No [id number] 1[drp] Place 1 Drop in both eyes 4 (four) times daily for 7 days. [facility] fluconazole (DIFLUCAN) 150 mg tablet 07-17 00:00: 00 07-18 04:59 :00 No [id number] 150mg Take 1 tablet by mouth once now for 1 dose. [facility] amoxicillin -clavulanat e (AUGMENTIN) 875-125 mg per tablet 06-12 00:00: 00 06-20 04:59 :00 No [id number] 1{tbl} Take 1 tablet by mouth in the morning and 1 tablet in the evening. Do all this for 7 days. [facility] benzonatate 200 mg capsule 04-14 00:00: 00 04-25 04:59 :00 No [id number] 200mg Take 1 capsule by mouth 3 (three) times daily as needed for Cough for up to 10 days. [facility] amoxicillin -clavulanat e (AUGMENTIN) 875-125 mg per tablet 04-14 00:00: 00 04-22 04:59 :00 No [id number] 1{tbl} Take 1 tablet by mouth 2 (two) times daily for 7 days. [facility] amoxicillin -clavulanat e 875-125 mg per tablet 04-03 00:00: 00 04-11 04:59 :00 No [id number] 1{tbl} Take 1 tablet by mouth 2 (two) times daily for 7 days. [facility] ibuprofen 600 mg tablet 5-24 00:00: 00 07-17 00:00 :00 No [id number] 100 600mg Take 1 tablet by mouth every 6 (six) hours as needed for Pain (scale 4-6). [facility] albuterol 90 mcg/actuati on inhaler 2020-10- 00:00: 00 02-01 00:00 :00 No [id number] 2{puff} Inhale 2 Puffs every 6 (six) hours as needed for Wheezing or Shortness of Breath. [facility] budesonide- formoteroL (SYMBICORT) 160-4.5 mcg/actuati on inhaler 2020-10 00:00: 00 02-01 00:00 :00 No [id number] 2{puff} Inhale 2 Puffs 2 (two) times daily. [facility] ondansetron 4 mg disintegrat ing tablet 2020-10 00:00: 00 02-21 00:00 :00 No [id number] 4mg Take 1 tablet by mouth every 8 (eight) hours as needed for Nausea and Vomiting (N/V). [facility] guaiFENesin 400 mg tablet 2020-10 00:00: 00 07-17 00:00 :00 No [id number] 400mg Take 1 tablet by mouth every 4 (four) hours as needed for Cough. [facility] benzonatate 100 mg capsule 2020-10 00:00: 00 04-14 00:00 :00 No [id number] 200mg Take 2 capsules by mouth 2 (two) times daily as needed for Cough. [facility] amoxicillin -clavulanat e (AUGMENTIN) 875-125 mg per tablet 2020-10 00:00: 00 10-09 05:59 :00 No [id number] 1{tbl} Take 1 tablet by mouth 2 (two) times daily for 7 days. [facility] proMETHazin e (PHENERGAN) 25 mg in NaCl 0.9% (NS) 50 mL IV piggyback 2019-10 21:26: 00 08-04 21:35 :00 No 25mg 25 mg, IV Piggyback, ONCE, 1 dose, Fri08/04/20 at 1630, Routine, PACU [facility] FENTanyl PF (SUBLIMAZE (PF)) injection 25 mcg 2019-10 20:54: 14 Yes 25ug 25 mcg, Slow IV Push, Q5MIN PRN, 4 doses, Starting Fri08/04/20 at 1554, Until Discontinu ed, Routine, Pain (scale 7-10), PACU [facility] ketorolac (TORADOL) injection 30 mg 2019-10 20:54: 14 08-04 21:44 :00 No 30mg 30 mg, Slow IV Push, PRN, 1 dose, Starting Fri08/04/20 at 1554, Until Discontinu ed, Routine, Pain (scale 4-6), [facility] Rest[facility] medication : PACU RECOVERY [facility] ondansetron (ZOFRAN (PF)) injection 4 mg 2019-10 20:54: 14 08-04 21:01 :00 No 4mg 4 mg, Slow IV Push, PRN, 1 dose, Starting Fri08/04/20 at 1554, Until Fri08/04/20 at 1601, Routine, Nausea and Vomiting (N/V), PACU [facility] ondansetron (ZOFRAN (PF)) injection 2019-10 20:14: 00 08-04 20:54 :20 No ONCE INTRA PROCEDURE, Starting Fri08/04/20 at 1514, Until Fri08/04/20 at 1554, Routine, Intra-op [facility] bupivacaine -epinephrin e-pf (SENSORCAIN E W/EPINEPHRI NE) 0.25 %-1:200,000 injection 2019-10 20:12: 00 Yes PRN, Starting Fri08/04/20 at 1512, Until Discontinu ed, Routine, Intra-op [facility] PHENYLephri ne 1000 mcg/10 mL in 0.9% NaCl syringe 2019-10 20:05: 00 08-04 20:54 :20 No ONCE INTRA PROCEDURE, Starting Fri08/04/20 at 1505, Until Fri08/04/20 at 1554, Routine, Intra-op [facility] ePHEDrine 25 mg/5 mL (5 mg/mL) syringe 2019-10 20:00: 00 08-04 20:54 :20 No ONCE INTRA PROCEDURE, Starting Fri08/04/20 at 1500, Until Fri08/04/20 at 1554, Routine, Intra-op [facility] HYDROmorphO ne (DILAUDID) injection 2019-10 19:51: 00 08-04 20:54 :20 No ONCE INTRA PROCEDURE, Starting Fri08/04/20 at 1451, Until Fri08/04/20 at 1554, Routine, Intra-op [facility] ceFAZolin (ANCEF) injection 2019-10 19:44: 00 08-04 20:54 :20 No ONCE INTRA PROCEDURE, Starting Fri08/04/20 at 1444, Until Fri08/04/20 at 1554, ELAINE, Intra-op [facility] acetaminoph en ADULT (OFIRMEV) injection 2019-10 19:40: 00 08-04 20:54 :20 No Administer over 15 Minutes, ONCE INTRA PROCEDURE, Starting Fri08/04/20 at 1440, Until Fri08/04/20 at 1554, Routine, Intra-op [facility] propofoL IV infusion 2019-10 19:38: 00 08-04 20:54 :20 No ONCE INTRA PROCEDURE, Starting Fri08/04/20 at 1438, Until Fri08/04/20 at 1554, Routine, Intra-op [facility] lidocaine 1% (XYLOCAINE) 100 mg/10 mL (1 %) injection 2019-10 19:37: 00 08-04 20:54 :20 No ONCE INTRA PROCEDURE, Starting Fri08/04/20 at 1437, Until Fri08/04/20 at 1554, Routine, Intra-op [facility] FENTanyl PF (SUBLIMAZE (PF)) injection 2019-10 19:37: 00 08-04 20:54 :20 No ONCE INTRA PROCEDURE, Starting Fri08/04/20 at 1437, Until Fri08/04/20 at 1554, Routine, Intra-op [facility] midazolam (VERSED) injection 2019-10 19:32: 00 08-04 20:54 :20 No ONCE INTRA PROCEDURE, Starting Fri08/04/20 at 1432, Until Fri08/04/20 at 1554, Routine, [facility] lactated ringers IV infusion 2019-10 18:28: 00 08-04 20:54 :20 No CONTINUOUS PRN, Starting Fri08/04/20 at 1328, Until Fri08/04/20 at 1554, Routine, Intra-op [facility] lactated ringers IV infusion 1,000 mL 2019-10 16:15: 00 08-04 18:29 :00 No 1000mL at 42 mL/hr, 1,000 mL, IV Infusion, ONCE, 1 dose, Fri08/04/20 at 1115, Routine, DSU Pre-op [facility] gabapentin 300 mg capsule 2019-10 00:00: 00 10-04 05:59 :00 No [id number] 300mg Take 1 capsule by mouth 3 (three) times daily for 60 days. [facility] HYDROcodone -acetaminop hen 5-325 mg tablet 2019-10 00:00: 08-12 04:59 :00 No [id number] 1{tbl} Take 1 tablet by mouth every 6 (six) hours as needed for Pain (scale 4-6) for up to 7 days. Indication s: acute pain [facility] ondansetron 4 mg tablet 2019-10 00:00: 00 08-12 04:59 :00 No [id number] 4mg Take 1 tablet by mouth every 8 (eight) hours as needed for Nausea and Vomiting (N/V) for up to 7 days. [facility] nystatin-tr iamcinolone cream 06-05 00:00: 00 07-17 00:00 :00 No [id number] Apply to area(s) 3 (three) times daily. [facility] indomethaci n 50 mg capsule - 00:00: 00 06-05 00:00 :00 No TK 1 C PO Q 6 H PRN [facility] PROAIR HFA 90 mcg/actuati on inhaler 09 00:00: 00 [facility] SYMBICORT 160-4.5 mcg/actuati on inhaler -09 00:00: 00 10-01 00:00 :00 No [facility] azithromyci n 250 mg tablet 02-02 00:00: 00 06-05 00:00 :00 No [facility] amoxicillin -clavulanat e 875-125 mg per tablet 2-10 00:00: 00 10-01 00:00 :00 No TK 1 T PO BID [facility] norethindro ne-ethinyl estradiol 1-20 mg-mcg per tablet 1-30 00:00: 00 07-17 00:00 :00 No [facility] MY WAY 1.5 mg tablet 1-20 00:00: 00 07-17 00:00 :00 No [facility] escitalopra m oxalate 20 mg tablet 11-05 00:00: 00 Yes TK 1 T PO QD [facility] traZODONE 50 mg tablet 03-04 00:00: 00 Yes TAKE 1 TABLET BY MOUTH EVERYDAY AT BEDTIME [facility] escitalopra m oxalate 10 mg tablet 03-04 00:00: 00 07-17 00:00 :00 No TAKE 1 TABLET BY MOUTH EVERY MORNING [facility] No known medications No [facility] Immunizations Ordered Immunization Name Filled Immunization Name Date Status Comments Source HPV9 2023-02-21 00:00:00 Completed [facility] HPV9 2023-02-21 00:00:00 Completed [facility] HPV9 2023-02-21 00:00:00 Completed [facility] HPV9 2023-02-21 00:00:00 Completed [facility] HPV9 2023-02-21 00:00:00 Completed [facility] HPV9 2023-02-21 00:00:00 Completed [facility] HPV9 2023-02-21 00:00:00 Completed [facility] HPV9 2023-02-21 00:00:00 Completed [facility] HPV9 2023-02-21 00:00:00 Completed [facility] HPV9 2023-02-21 00:00:00 Completed [facility] HPV9 2023-02-21 00:00:00 Completed [facility] HPV9 2023-02-21 00:00:00 Completed [facility] TDAP 2017-10-16 00:00:00 Completed [facility] Influenza Virus Vaccine Quad IM 3+ YRS 2017-10-16 00:00:00 Completed [facility] Tdap 2017-10-16 00:00:00 Completed [facility] Influenza Virus Vaccine Quad IM 3+ YRS 2017-10-16 00:00:00 Completed [facility] TDAP 2017-10-16 00:00:00 Completed [facility] Influenza Virus Vaccine Quad IM 3+ YRS 2017-10-16 00:00:00 Completed [facility] TDAP 2017-10-16 00:00:00 Completed [facility] Influenza Virus Vaccine Quad IM 3+ YRS 2017-10-16 00:00:00 Completed [facility] TDAP 2017-10-16 00:00:00 Completed [facility] Influenza Virus Vaccine Quad IM 3+ YRS 2017-10-16 00:00:00 Completed [facility] TDAP 2017-10-16 00:00:00 Completed [facility] Influenza Virus Vaccine Quad IM 3+ YRS 2017-10-16 00:00:00 Completed [facility] TDAP 2017-10-16 00:00:00 Completed [facility] Influenza Virus Vaccine Quad IM 3+ YRS 2017-10-16 00:00:00 Completed [facility] Tdap 2017-10-16 00:00:00 Completed [facility] Influenza Virus Vaccine Quad IM 3+ YRS 2017-10-16 00:00:00 Completed [facility] TDAP 2017-10-16 00:00:00 Completed [facility] Influenza Virus Vaccine Quad IM 3+ YRS 2017-10-16 00:00:00 Completed [facility] TDAP 2017-10-16 00:00:00 Completed [facility] Influenza Virus Vaccine Quad IM 3+ YRS 2017-10-16 00:00:00 Completed [facility] TDAP 2017-10-16 00:00:00 Completed [facility] Influenza Virus Vaccine Quad IM 3+ YRS 2017-10-16 00:00:00 Completed [facility] TDAP 2017-10-16 00:00:00 Completed [facility] Influenza Virus Vaccine Quad IM 3+ YRS 2017-10-16 00:00:00 Completed [facility] TDAP 2017-10-16 00:00:00 Completed [facility] Influenza Virus Vaccine Quad IM 3+ YRS 2017-10-16 00:00:00 Completed [facility] TDAP 2017-10-16 00:00:00 Completed [facility] Influenza Virus Vaccine Quad IM 3+ YRS 2017-10-16 00:00:00 Completed [facility] TDAP 2017-10-16 00:00:00 Completed [facility] Influenza Virus Vaccine Quad IM 3+ YRS 2017-10-16 00:00:00 Completed [facility] TDAP 2017-10-16 00:00:00 Completed [facility] Influenza Virus Vaccine Quad IM 3+ YRS 2017-10-16 00:00:00 Completed [facility] Tdap 2017-10-16 00:00:00 Completed [facility] Influenza Virus Vaccine Quad IM 3+ YRS 2017-10-16 00:00:00 Completed [facility] TDAP 2017-10-16 00:00:00 Completed [facility] Influenza Virus Vaccine Quad IM 3+ YRS 2017-10-16 00:00:00 Completed [facility] TDAP 2017-10-16 00:00:00 Completed [facility] Influenza Virus Vaccine Quad IM 3+ YRS 2017-10-16 00:00:00 Completed [facility] TDAP 2017-10-16 00:00:00 Completed [facility] Influenza Virus Vaccine Quad IM 3+ YRS 2017-10-16 00:00:00 Completed [facility] TDAP 2017-10-16 00:00:00 Completed [facility] Influenza Virus Vaccine Quad IM 3+ YRS 2017-10-16 00:00:00 Completed [facility] TDAP 2017-10-16 00:00:00 Completed [facility] Influenza Virus Vaccine Quad IM 3+ YRS 2017-10-16 00:00:00 Completed [facility] TDAP 2017-10-16 00:00:00 Completed [facility] Influenza Virus Vaccine Quad IM 3+ YRS 2017-10-16 00:00:00 Completed [facility] Tdap 2017-10-16 00:00:00 Completed [facility] Influenza Virus Vaccine Quad IM 3+ YRS 2017-10-16 00:00:00 Completed [facility] TDAP 2017-10-16 00:00:00 Completed [facility] Influenza Virus Vaccine Quad IM 3+ YRS 2017-10-16 00:00:00 Completed [facility] TDAP 2017-10-16 00:00:00 Completed [facility] Influenza Virus Vaccine Quad IM 3+ YRS 2017-10-16 00:00:00 Completed [facility] Tdap 2017-10-16 00:00:00 Completed [facility] Influenza Virus Vaccine Quad IM 3+ YRS 2017-10-16 00:00:00 Completed [facility] Tdap 2017-10-16 00:00:00 Completed [facility] Influenza Virus Vaccine Quad IM 3+ YRS 2017-10-16 00:00:00 Completed [facility] Tdap 2017-10-16 00:00:00 Completed [facility] Influenza Virus Vaccine Quad IM 3+ YRS 2017-10-16 00:00:00 Completed [facility] Tdap 2017-10-16 00:00:00 Completed [facility] Influenza Virus Vaccine Quad IM 3+ YRS 2017-10-16 00:00:00 Completed [facility] Tdap 2017-10-16 00:00:00 Completed [facility] Influenza Virus Vaccine Quad IM 3+ YRS 2017-10-16 00:00:00 Completed [facility] TDAP 2017-10-16 00:00:00 Completed [facility] Influenza Virus Vaccine Quad IM 3+ YRS 2017-10-16 00:00:00 Completed [facility] TDAP 2017-10-16 00:00:00 Completed [facility] Influenza Virus Vaccine Quad IM 3+ YRS 2017-10-16 00:00:00 Completed [facility] TDAP 2017-10-16 00:00:00 Completed [facility] Influenza Virus Vaccine Quad IM 3+ YRS 2017-10-16 00:00:00 Completed [facility] TDAP 2017-10-16 00:00:00 Completed [facility] Influenza Virus Vaccine Quad IM 3+ YRS 2017-10-16 00:00:00 Completed [facility] TDAP 2017-10-16 00:00:00 Completed [facility] Tdap 2017-10-16 00:00:00 Completed [facility] Influenza Virus Vaccine Quad IM 3+ YRS 2017-10-16 00:00:00 Completed [facility] Influenza Virus Vaccine Quad IM 3+ YRS 2017-10-16 00:00:00 Completed [facility] TDAP 2017-10-16 00:00:00 Completed [facility] Influenza Virus Vaccine Quad IM 3+ YRS 2017-10-16 00:00:00 Completed [facility] TDAP 2017-10-16 00:00:00 Completed [facility] Influenza Virus Vaccine Quad IM 3+ YRS 2017-10-16 00:00:00 Completed [facility] TDAP 2017-10-16 00:00:00 Completed [facility] Influenza Virus Vaccine Quad IM 3+ YRS 2017-10-16 00:00:00 Completed [facility] TDAP 2017-10-16 00:00:00 Completed [facility] Influenza Virus Vaccine Quad IM 3+ YRS 2017-10-16 00:00:00 Completed [facility] TDAP 2017-10-16 00:00:00 Completed [facility] Influenza Virus Vaccine Quad IM 3+ YRS 2017-10-16 00:00:00 Completed [facility] Tdap 2017-10-16 00:00:00 Completed [facility] Influenza Virus Vaccine Quad IM 3+ YRS 2017-10-16 00:00:00 Completed [facility] TDAP 2017-10-16 00:00:00 Completed [facility] Influenza Virus Vaccine Quad IM 3+ YRS 2017-10-16 00:00:00 Completed [facility] TDAP 2017-10-16 00:00:00 Completed [facility] Influenza Virus Vaccine Quad IM 3+ YRS 2017-10-16 00:00:00 Completed [facility] TDAP 2017-10-16 00:00:00 Completed [facility] Influenza Virus Vaccine Quad IM 3+ YRS 2017-10-16 00:00:00 Completed [facility] TDAP 2017-10-16 00:00:00 Completed [facility] Influenza Virus Vaccine Quad IM 3+ YRS 2017-10-16 00:00:00 Completed [facility] TDAP 2017-10-16 00:00:00 Completed [facility] Influenza Virus Vaccine Quad IM 3+ YRS 2017-10-16 00:00:00 Completed [facility] TDAP 2017-10-16 00:00:00 Completed [facility] Influenza Virus Vaccine Quad IM 3+ YRS 2017-10-16 00:00:00 Completed [facility] TDAP 2017-10-16 00:00:00 Completed [facility] Influenza Virus Vaccine Quad IM 3+ YRS 2017-10-16 00:00:00 Completed [facility] TDAP 2017-10-16 00:00:00 Completed [facility] Influenza Virus Vaccine Quad IM 3+ YRS 2017-10-16 00:00:00 Completed [facility] TDAP 2017-10-16 00:00:00 Completed [facility] Influenza Virus Vaccine Quad IM 3+ YRS 2017-10-16 00:00:00 Completed [facility] Tdap 2017-10-16 00:00:00 Completed [facility] Influenza Virus Vaccine Quad IM 3+ YRS 2017-10-16 00:00:00 Completed [facility] TDAP 2017-10-16 00:00:00 Completed [facility] Influenza Virus Vaccine Quad IM 3+ YRS 2017-10-16 00:00:00 Completed [facility] TDAP 2017-10-16 00:00:00 Completed [facility] Influenza Virus Vaccine Quad IM 3+ YRS 2017-10-16 00:00:00 Completed [facility] TDAP 2017-10-16 00:00:00 Completed [facility] Influenza Virus Vaccine Quad IM 3+ YRS 2017-10-16 00:00:00 Completed [facility] TDAP 2017-10-16 00:00:00 Completed [facility] Influenza Virus Vaccine Quad IM 3+ YRS 2017-10-16 00:00:00 Completed [facility] TDAP 2017-10-16 00:00:00 Completed [facility] Influenza Virus Vaccine Quad IM 3+ YRS 2017-10-16 00:00:00 Completed [facility] TDAP 2017-10-16 00:00:00 Completed [facility] Influenza Virus Vaccine Quad IM 3+ YRS 2017-10-16 00:00:00 Completed [facility] TDAP 2017-10-16 00:00:00 Completed [facility] Influenza Virus Vaccine Quad IM 3+ YRS 2017-10-16 00:00:00 Completed [facility] Tdap 2017-10-16 00:00:00 Completed [facility] Influenza Virus Vaccine Quad IM 3+ YRS 2017-10-16 00:00:00 Completed [facility] TDAP 2017-10-16 00:00:00 Completed [facility] Influenza Virus Vaccine Quad IM 3+ YRS 2017-10-16 00:00:00 Completed [facility] TDAP 2017-10-16 00:00:00 Completed [facility] Influenza Virus Vaccine Quad IM 3+ YRS 2017-10-16 00:00:00 Completed [facility] TDAP 2017-10-16 00:00:00 Completed [facility] Influenza Virus Vaccine Quad IM 3+ YRS 2017-10-16 00:00:00 Completed [facility] TDAP 2017-10-16 00:00:00 Completed [facility] Influenza Virus Vaccine Quad IM 3+ YRS 2017-10-16 00:00:00 Completed [facility] Tdap 2017-10-16 00:00:00 Completed [facility] TDAP 2017-10-16 00:00:00 Completed [facility] Influenza Virus Vaccine Quad IM 3+ YRS 2017-10-16 00:00:00 Completed [facility] Influenza Virus Vaccine Quad IM 3+ YRS 2017-10-16 00:00:00 Completed [facility] TDAP 2017-10-16 00:00:00 Completed [facility] Influenza Virus Vaccine Quad IM 3+ YRS 2017-10-16 00:00:00 Completed [facility] TDAP 2017-10-16 00:00:00 Completed [facility] Influenza Virus Vaccine Quad IM 3+ YRS 2017-10-16 00:00:00 Completed [facility] Tdap 2016-01-18 00:00:00 Completed [facility] Tdap 2016-01-18 00:00:00 Completed [facility] Tdap 2016-01-18 00:00:00 Completed [facility] Tdap 2016-01-18 00:00:00 Completed [facility] Tdap 2016-01-18 00:00:00 Completed [facility] TDAP 2016-01-18 00:00:00 Completed [facility] TDAP 2016-01-18 00:00:00 Completed [facility] TDAP 2016-01-18 00:00:00 Completed [facility] TDAP 2016-01-18 00:00:00 Completed [facility] Tdap 2016-01-18 00:00:00 Completed [facility] TDAP 2016-01-18 00:00:00 Completed [facility] TDAP 2016-01-18 00:00:00 Completed [facility] TDAP 2016-01-18 00:00:00 Completed [facility] TDAP 2016-01-18 00:00:00 Completed [facility] TDAP 2016-01-18 00:00:00 Completed [facility] Tdap 2016-01-18 00:00:00 Completed [facility] TDAP 2016-01-18 00:00:00 Completed [facility] TDAP 2016-01-18 00:00:00 Completed [facility] TDAP 2016-01-18 00:00:00 Completed [facility] TDAP 2016-01-18 00:00:00 Completed [facility] TDAP 2016-01-18 00:00:00 Completed [facility] TDAP 2016-01-18 00:00:00 Completed [facility] TDAP 2016-01-18 00:00:00 Completed [facility] TDAP 2016-01-18 00:00:00 Completed [facility] TDAP 2016-01-18 00:00:00 Completed [facility] Tdap 2016-01-18 00:00:00 Completed [facility] TDAP 2016-01-18 00:00:00 Completed [facility] TDAP 2016-01-18 00:00:00 Completed [facility] TDAP 2016-01-18 00:00:00 Completed [facility] TDAP 2016-01-18 00:00:00 Completed [facility] TDAP 2016-01-18 00:00:00 Completed [facility] TDAP 2016-01-18 00:00:00 Completed [facility] TDAP 2016-01-18 00:00:00 Completed [facility] Tdap 2016-01-18 00:00:00 Completed [facility] TDAP 2016-01-18 00:00:00 Completed [facility] TDAP 2016-01-18 00:00:00 Completed [facility] TDAP 2016-01-18 00:00:00 Completed [facility] TDAP 2016-01-18 00:00:00 Completed [facility] TDAP 2016-01-18 00:00:00 Completed [facility] Tdap 2016-01-18 00:00:00 Completed [facility] TDAP 2016-01-18 00:00:00 Completed [facility] TDAP 2016-01-18 00:00:00 Completed [facility] TDAP 2016-01-18 00:00:00 Completed [facility] TDAP 2016-01-18 00:00:00 Completed [facility] Tdap 2016-01-18 00:00:00 Completed [facility] TDAP 2016-01-18 00:00:00 Completed [facility] TDAP 2016-01-18 00:00:00 Completed [facility] TDAP 2016-01-18 00:00:00 Completed [facility] TDAP 2016-01-18 00:00:00 Completed [facility] TDAP 2016-01-18 00:00:00 Completed [facility] Tdap 2016-01-18 00:00:00 Completed [facility] TDAP 2016-01-18 00:00:00 Completed [facility] TDAP 2016-01-18 00:00:00 Completed [facility] TDAP 2016-01-18 00:00:00 Completed [facility] TDAP 2016-01-18 00:00:00 Completed [facility] TDAP 2016-01-18 00:00:00 Completed [facility] TDAP 2016-01-18 00:00:00 Completed [facility] TDAP 2016-01-18 00:00:00 Completed [facility] Tdap 2016-01-18 00:00:00 Completed [facility] TDAP 2016-01-18 00:00:00 Completed [facility] TDAP 2016-01-18 00:00:00 Completed [facility] TDAP 2016-01-18 00:00:00 Completed [facility] TDAP 2016-01-18 00:00:00 Completed [facility] TDAP 2016-01-18 00:00:00 Completed [facility] TDAP 2016-01-18 00:00:00 Completed [facility] TDAP 2016-01-18 00:00:00 Completed [facility] Tdap 2016-01-18 00:00:00 Completed [facility] TDAP 2016-01-18 00:00:00 Completed [facility] TDAP 2016-01-18 00:00:00 Completed [facility] TDAP 2014-05-18 00:00:00 Completed [facility] Tdap 2014-05-18 00:00:00 Completed [facility] TDAP 2014-05-18 00:00:00 Completed [facility] TDAP 2014-05-18 00:00:00 Completed [facility] TDAP 2014-05-18 00:00:00 Completed [facility] TDAP 2014-05-18 00:00:00 Completed [facility] Tdap 2014-05-18 00:00:00 Completed [facility] TDAP 2014-05-18 00:00:00 Completed [facility] TDAP 2014-05-18 00:00:00 Completed [facility] TDAP 2014-05-18 00:00:00 Completed [facility] TDAP 2014-05-18 00:00:00 Completed [facility] TDAP 2014-05-18 00:00:00 Completed [facility] TDAP 2014-05-18 00:00:00 Completed [facility] TDAP 2014-05-18 00:00:00 Completed [facility] TDAP 2014-05-18 00:00:00 Completed [facility] Tdap 2014-05-18 00:00:00 Completed [facility] TDAP 2014-05-18 00:00:00 Completed [facility] TDAP 2014-05-18 00:00:00 Completed [facility] TDAP 2014-05-18 00:00:00 Completed [facility] TDAP 2014-05-18 00:00:00 Completed [facility] TDAP 2014-05-18 00:00:00 Completed [facility] TDAP 2014-05-18 00:00:00 Completed [facility] TDAP 2014-05-18 00:00:00 Completed [facility] Tdap 2014-05-18 00:00:00 Completed [facility] TDAP 2014-05-18 00:00:00 Completed [facility] TDAP 2014-05-18 00:00:00 Completed [facility] Tdap 2014-05-18 00:00:00 Completed [facility] Tdap 2014-05-18 00:00:00 Completed [facility] Tdap 2014-05-18 00:00:00 Completed [facility] Tdap 2014-05-18 00:00:00 Completed [facility] Tdap 2014-05-18 00:00:00 Completed [facility] Tdap 2014-05-18 00:00:00 Completed [facility] TDAP 2014-05-18 00:00:00 Completed [facility] TDAP 2014-05-18 00:00:00 Completed [facility] TDAP 2014-05-18 00:00:00 Completed [facility] TDAP 2014-05-18 00:00:00 Completed [facility] Tdap 2014-05-18 00:00:00 Completed [facility] TDAP 2014-05-18 00:00:00 Completed [facility] TDAP 2014-05-18 00:00:00 Completed [facility] TDAP 2014-05-18 00:00:00 Completed [facility] TDAP 2014-05-18 00:00:00 Completed [facility] Tdap 2014-05-18 00:00:00 Completed [facility] TDAP 2014-05-18 00:00:00 Completed [facility] TDAP 2014-05-18 00:00:00 Completed [facility] TDAP 2014-05-18 00:00:00 Completed [facility] TDAP 2014-05-18 00:00:00 Completed [facility] TDAP 2014-05-18 00:00:00 Completed [facility] TDAP 2014-05-18 00:00:00 Completed [facility] TDAP 2014-05-18 00:00:00 Completed [facility] TDAP 2014-05-18 00:00:00 Completed [facility] TDAP 2014-05-18 00:00:00 Completed [facility] Tdap 2014-05-18 00:00:00 Completed [facility] TDAP 2014-05-18 00:00:00 Completed [facility] TDAP 2014-05-18 00:00:00 Completed [facility] TDAP 2014-05-18 00:00:00 Completed [facility] TDAP 2014-05-18 00:00:00 Completed [facility] TDAP 2014-05-18 00:00:00 Completed [facility] TDAP 2014-05-18 00:00:00 Completed [facility] TDAP 2014-05-18 00:00:00 Completed [facility] TDAP 2014-05-18 00:00:00 Completed [facility] Tdap 2014-05-18 00:00:00 Completed [facility] TDAP 2014-05-18 00:00:00 Completed [facility] TDAP 2014-05-18 00:00:00 Completed [facility] TDAP 2014-05-18 00:00:00 Completed [facility] TDAP 2014-05-18 00:00:00 Completed [facility] TDAP 2014-05-18 00:00:00 Completed [facility] Tdap 2014-05-18 00:00:00 Completed [facility] TDAP 2014-05-18 00:00:00 Completed [facility] TDAP 2014-05-18 00:00:00 Completed [facility] TDAP 2014-05-18 00:00:00 Completed [facility] Pneumococcal Polysaccharide, PPSV23 (PNEUMOVAX) 2008-05-11 00:00:00 Completed [facility] Pneumococcal Polysaccharide, PPSV23 (PNEUMOVAX) 2008-05-11 00:00:00 Completed [facility] Pneumococcal Polysaccharide, PPSV23 (PNEUMOVAX) 2008-05-11 00:00:00 Completed [facility] Pneumococcal Polysaccharide, PPSV23 (PNEUMOVAX) 2008-05-11 00:00:00 Completed [facility] Pneumococcal Polysaccharide, PPSV23 (PNEUMOVAX) 2008-05-11 00:00:00 Completed [facility] Pneumococcal Polysaccharide, PPSV23 (PNEUMOVAX) 2008-05-11 00:00:00 Completed [facility] Pneumococcal Polysaccharide, PPSV23 (PNEUMOVAX) 2008-05-11 00:00:00 Completed [facility] Pneumococcal Polysaccharide, PPSV23 (PNEUMOVAX) 2008-05-11 00:00:00 Completed [facility] Pneumococcal Polysaccharide, PPSV23 (PNEUMOVAX) 2008-05-11 00:00:00 Completed [facility] Pneumococcal Polysaccharide, PPSV23 (PNEUMOVAX) 2008-05-11 00:00:00 Completed [facility] Pneumococcal Polysaccharide, PPSV23 (PNEUMOVAX) 2008-05-11 00:00:00 Completed [facility] Pneumococcal Polysaccharide, PPSV23 (PNEUMOVAX) 2008-05-11 00:00:00 Completed [facility] Pneumococcal Polysaccharide, PPSV23 (PNEUMOVAX) 2008-05-11 00:00:00 Completed [facility] Pneumococcal Polysaccharide, PPSV23 (PNEUMOVAX) 2008-05-11 00:00:00 Completed [facility] Pneumococcal Polysaccharide, PPSV23 (PNEUMOVAX) 2008-05-11 00:00:00 Completed [facility] Pneumococcal Polysaccharide, PPSV23 (PNEUMOVAX) 2008-05-11 00:00:00 Completed [facility] Pneumococcal Polysaccharide, PPSV23 (PNEUMOVAX) 2008-05-11 00:00:00 Completed [facility] Pneumococcal Polysaccharide, PPSV23 (PNEUMOVAX) 2008-05-11 00:00:00 Completed [facility] Pneumococcal Polysaccharide, PPSV23 (PNEUMOVAX) 2008-05-11 00:00:00 Completed [facility] Pneumococcal Polysaccharide, PPSV23 (PNEUMOVAX) 2008-05-11 00:00:00 Completed [facility] Pneumococcal Polysaccharide, PPSV23 (PNEUMOVAX) 2008-05-11 00:00:00 Completed [facility] Pneumococcal Polysaccharide, PPSV23 (PNEUMOVAX) 2008-05-11 00:00:00 Completed [facility] Pneumococcal Polysaccharide, PPSV23 (PNEUMOVAX) 2008-05-11 00:00:00 Completed [facility] Pneumococcal Polysaccharide, PPSV23 (PNEUMOVAX) 2008-05-11 00:00:00 Completed [facility] Pneumococcal Polysaccharide, PPSV23 (PNEUMOVAX) 2008-05-11 00:00:00 Completed [facility] Pneumococcal Polysaccharide, PPSV23 (PNEUMOVAX) 2008-05-11 00:00:00 Completed [facility] Pneumococcal Polysaccharide, PPSV23 (PNEUMOVAX) 2008-05-11 00:00:00 Completed [facility] Pneumococcal Polysaccharide, PPSV23 (PNEUMOVAX) 2008-05-11 00:00:00 Completed [facility] Pneumococcal Polysaccharide, PPSV23 (PNEUMOVAX) 2008-05-11 00:00:00 Completed [facility] Pneumococcal Polysaccharide, PPSV23 (PNEUMOVAX) 2008-05-11 00:00:00 Completed [facility] Pneumococcal Polysaccharide, PPSV23 (PNEUMOVAX) 2008-05-11 00:00:00 Completed [facility] Pneumococcal Polysaccharide, PPSV23 (PNEUMOVAX) 2008-05-11 00:00:00 Completed [facility] Pneumococcal Polysaccharide, PPSV23 (PNEUMOVAX) 2008-05-11 00:00:00 Completed [facility] Pneumococcal Polysaccharide, PPSV23 (PNEUMOVAX) 2008-05-11 00:00:00 Completed [facility] Pneumococcal Polysaccharide, PPSV23 (PNEUMOVAX) 2008-05-11 00:00:00 Completed [facility] Pneumococcal Polysaccharide, PPSV23 (PNEUMOVAX) 2008-05-11 00:00:00 Completed [facility] Pneumococcal Polysaccharide, PPSV23 (PNEUMOVAX) 2008-05-11 00:00:00 Completed [facility] Pneumococcal Polysaccharide, PPSV23 (PNEUMOVAX) 2008-05-11 00:00:00 Completed [facility] Pneumococcal Polysaccharide, PPSV23 (PNEUMOVAX) 2008-05-11 00:00:00 Completed [facility] Pneumococcal Polysaccharide, PPSV23 (PNEUMOVAX) 2008-05-11 00:00:00 Completed [facility] Pneumococcal Polysaccharide, PPSV23 (PNEUMOVAX) 2008-05-11 00:00:00 Completed [facility] Pneumococcal Polysaccharide, PPSV23 (PNEUMOVAX) 2008-05-11 00:00:00 Completed [facility] Pneumococcal Polysaccharide, PPSV23 (PNEUMOVAX) 2008-05-11 00:00:00 Completed [facility] Pneumococcal Polysaccharide, PPSV23 (PNEUMOVAX) 2008-05-11 00:00:00 Completed [facility] Pneumococcal Polysaccharide, PPSV23 (PNEUMOVAX) 2008-05-11 00:00:00 Completed [facility] Pneumococcal Polysaccharide, PPSV23 (PNEUMOVAX) 2008-05-11 00:00:00 Completed [facility] Pneumococcal Polysaccharide, PPSV23 (PNEUMOVAX) 2008-05-11 00:00:00 Completed [facility] Pneumococcal Polysaccharide, PPSV23 (PNEUMOVAX) 2008-05-11 00:00:00 Completed [facility] Pneumococcal Polysaccharide, PPSV23 (PNEUMOVAX) 2008-05-11 00:00:00 Completed [facility] Pneumococcal Polysaccharide, PPSV23 (PNEUMOVAX) 2008-05-11 00:00:00 Completed [facility] Pneumococcal Polysaccharide, PPSV23 (PNEUMOVAX) 2008-05-11 00:00:00 Completed [facility] Pneumococcal Polysaccharide, PPSV23 (PNEUMOVAX) 2008-05-11 00:00:00 Completed [facility] Pneumococcal Polysaccharide, PPSV23 (PNEUMOVAX) 2008-05-11 00:00:00 Completed [facility] Pneumococcal Polysaccharide, PPSV23 (PNEUMOVAX) 2008-05-11 00:00:00 Completed [facility] Pneumococcal Polysaccharide, PPSV23 (PNEUMOVAX) 2008-05-11 00:00:00 Completed [facility] Pneumococcal Polysaccharide, PPSV23 (PNEUMOVAX) 2008-05-11 00:00:00 Completed [facility] Pneumococcal Polysaccharide, PPSV23 (PNEUMOVAX) 2008-05-11 00:00:00 Completed [facility] Pneumococcal Polysaccharide, PPSV23 (PNEUMOVAX) 2008-05-11 00:00:00 Completed [facility] Pneumococcal Polysaccharide, PPSV23 (PNEUMOVAX) 2008-05-11 00:00:00 Completed [facility] Pneumococcal Polysaccharide, PPSV23 (PNEUMOVAX) 2008-05-11 00:00:00 Completed [facility] Pneumococcal Polysaccharide, PPSV23 (PNEUMOVAX) 2008-05-11 00:00:00 Completed [facility] Pneumococcal Polysaccharide, PPSV23 (PNEUMOVAX) 2008-05-11 00:00:00 Completed [facility] Pneumococcal Polysaccharide, PPSV23 (PNEUMOVAX) 2008-05-11 00:00:00 Completed [facility] Pneumococcal Polysaccharide, PPSV23 (PNEUMOVAX) 2008-05-11 00:00:00 Completed [facility] Pneumococcal Polysaccharide, PPSV23 (PNEUMOVAX) 2008-05-11 00:00:00 Completed [facility] Pneumococcal Polysaccharide, PPSV23 (PNEUMOVAX) 2008-05-11 00:00:00 Completed [facility] Pneumococcal Polysaccharide, PPSV23 (PNEUMOVAX) 2008-05-11 00:00:00 Completed [facility] Pneumococcal Polysaccharide, PPSV23 (PNEUMOVAX) 2008-05-11 00:00:00 Completed [facility] Pneumococcal Polysaccharide, PPSV23 (PNEUMOVAX) 2008-05-11 00:00:00 Completed [facility] Pneumococcal Polysaccharide, PPSV23 (PNEUMOVAX) 2008-05-11 00:00:00 Completed [facility] Pneumococcal Polysaccharide, PPSV23 (PNEUMOVAX) Unknown Completed [facility] TDAP Unknown Completed [facility] TDAP Unknown Completed [facility] TDAP Unknown Completed [facility] Influenza Virus Vaccine Quad IM 3+ YRS Unknown Completed [facility] HPV9 Unknown Completed [facility] Pneumococcal Polysaccharide, PPSV23 (PNEUMOVAX) Unknown Completed [facility] TDAP Unknown Completed [facility] TDAP Unknown Completed [facility] TDAP Unknown Completed [facility] Influenza Virus Vaccine Quad IM 3+ YRS Unknown Completed [facility] Pneumococcal Polysaccharide, PPSV23 (PNEUMOVAX) Unknown Completed [facility] TDAP Unknown Completed [facility] TDAP Unknown Completed [facility] TDAP Unknown Completed [facility] Influenza Virus Vaccine Quad IM 3+ YRS Unknown Completed [facility] Pneumococcal Polysaccharide, PPSV23 (PNEUMOVAX) Unknown Completed [facility] TDAP Unknown Completed [facility] TDAP Unknown Completed [facility] TDAP Unknown Completed [facility] Influenza Virus Vaccine Quad IM 3+ YRS Unknown Completed [facility] Pneumococcal Polysaccharide, PPSV23 (PNEUMOVAX) Unknown Completed [facility] TDAP Unknown Completed [facility] TDAP Unknown Completed [facility] TDAP Unknown Completed [facility] Influenza Virus Vaccine Quad IM 3+ YRS Unknown Completed [facility] Pneumococcal Polysaccharide, PPSV23 (PNEUMOVAX) Unknown Completed [facility] TDAP Unknown Completed [facility] TDAP Unknown Completed [facility] TDAP Unknown Completed [facility] Influenza Virus Vaccine Quad IM 3+ YRS Unknown Completed [facility] Pneumococcal Polysaccharide, PPSV23 (PNEUMOVAX) Unknown Completed [facility] TDAP Unknown Completed [facility] TDAP Unknown Completed [facility] TDAP Unknown Completed [facility] Influenza Virus Vaccine Quad IM 3+ YRS Unknown Completed [facility] Pneumococcal Polysaccharide, PPSV23 (PNEUMOVAX) Unknown Completed [facility] TDAP Unknown Completed [facility] TDAP Unknown Completed [facility] TDAP Unknown Completed [facility] Influenza Virus Vaccine Quad IM 3+ YRS Unknown Completed [facility] Pneumococcal Polysaccharide, PPSV23 (PNEUMOVAX) Unknown Completed [facility] TDAP Unknown Completed [facility] TDAP Unknown Completed [facility] TDAP Unknown Completed [facility] Influenza Virus Vaccine Quad IM 3+ YRS Unknown Completed [facility] Pneumococcal Polysaccharide, PPSV23 (PNEUMOVAX) Unknown Completed [facility] TDAP Unknown Completed [facility] TDAP Unknown Completed [facility] TDAP Unknown Completed [facility] Influenza Virus Vaccine Quad IM 3+ YRS Unknown Completed [facility] Pneumococcal Polysaccharide, PPSV23 (PNEUMOVAX) Unknown Completed [facility] TDAP Unknown Completed [facility] TDAP Unknown Completed [facility] TDAP Unknown Completed [facility] Influenza Virus Vaccine Quad IM 3+ YRS Unknown Completed [facility] Pneumococcal Polysaccharide, PPSV23 (PNEUMOVAX) Unknown Completed [facility] TDAP Unknown Completed [facility] TDAP Unknown Completed [facility] TDAP Unknown Completed [facility] Influenza Virus Vaccine Quad IM 3+ YRS Unknown Completed [facility] Pneumococcal Polysaccharide, PPSV23 (PNEUMOVAX) Unknown Completed [facility] TDAP Unknown Completed [facility] TDAP Unknown Completed [facility] TDAP Unknown Completed [facility] Influenza Virus Vaccine Quad IM 3+ YRS Unknown Completed [facility] Pneumococcal Polysaccharide, PPSV23 (PNEUMOVAX) Unknown Completed [facility] TDAP Unknown Completed [facility] TDAP Unknown Completed [facility] TDAP Unknown Completed [facility] Influenza Virus Vaccine Quad IM 3+ YRS Unknown Completed [facility] HPV9 Unknown Completed [facility] Pneumococcal Polysaccharide, PPSV23 (PNEUMOVAX) Unknown Completed [facility] TDAP Unknown Completed [facility] TDAP Unknown Completed [facility] TDAP Unknown Completed [facility] Influenza Virus Vaccine Quad IM 3+ YRS Unknown Completed [facility] HPV9 Unknown Completed [facility] Pneumococcal Polysaccharide, PPSV23 (PNEUMOVAX) Unknown Completed [facility] TDAP Unknown Completed [facility] TDAP Unknown Completed [facility] TDAP Unknown Completed [facility] Influenza Virus Vaccine Quad IM 3+ YRS Unknown Completed [facility] HPV9 Unknown Completed [facility] Pneumococcal Polysaccharide, PPSV23 (PNEUMOVAX) Unknown Completed [facility] TDAP Unknown Completed [facility] TDAP Unknown Completed [facility] TDAP Unknown Completed [facility] Influenza Virus Vaccine Quad IM 3+ YRS Unknown Completed [facility] HPV9 Unknown Completed [facility] Vital Signs Vital Name Observation Time Observation Value Comments S ource Systolic blood pressure 2024-02-02 15:44:00 114 mm[Hg] [facility] Diastolic blood pressure 2024-02-02 15:44:00 63 mm[Hg] [facility] Heart rate 2024-02-02 15:44:00 70 /min [facility] Body temperature 2024-02-02 15:44:00 37.17 Zainab [facility] Respiratory rate 2024-02-02 15:44:00 17 /min [facility] Body weight 2024-02-02 15:44:00 123.378 kg [facility] BMI 2024-02-02 15:44:00 51.39 kg/m2 [facility] Oxygen saturation in Arterial blood by Pulse oximetry 2024-02-02 15:44:00 97 /min [facility] Systolic blood pressure 2023-06-28 23:34:00 141 mm[Hg] [facility] Diastolic blood pressure 2023-06-28 23:34:00 86 mm[Hg] [facility] Heart rate 2023-06-28 23:33:00 107 /min [facility] Body temperature 2023-06-28 23:33:00 36.83 Zainab [facility] Respiratory rate 2023-06-28 23:33:00 18 /min [facility] Body height 2023-06-28 23:33:00 154.9 cm [facility] Body weight 2023-06-28 23:33:00 121.972 kg [facility] BMI 2023-06-28 23:33:00 50.81 kg/m2 [facility] Oxygen saturation in Arterial blood by Pulse oximetry 2023-06-28 23:33:00 98 /min [facility] Systolic blood pressure 2023-03-07 16:14:00 153 mm[Hg] [facility] Diastolic blood pressure 2023-03-07 16:14:00 89 mm[Hg] [facility] Heart rate 2023-03-07 16:13:00 79 /min [facility] Body temperature 2023-03-07 16:13:00 36.44 Zainab [facility] Respiratory rate 2023-03-07 16:13:00 16 /min [facility] Body weight 2023-03-07 16:13:00 123.378 kg [facility] BMI 2023-03-07 16:13:00 51.39 kg/m2 [facility] Oxygen saturation in Arterial blood by Pulse oximetry 2023-03-07 16:13:00 98 /min [facility] Systolic blood pressure 2023-02-21 13:28:00 128 mm[Hg] [facility] Diastolic blood pressure 2023-02-21 13:28:00 75 mm[Hg] [facility] Heart rate 2023-02-21 13:28:00 65 /min [facility] Body temperature 2023-02-21 13:28:00 36 Zainab [facility] Respiratory rate 2023-02-21 13:28:00 18 /min [facility] Body height 2023-02-21 13:28:00 154.9 cm [facility] Body weight 2023-02-21 13:28:00 122.244 kg [facility] BMI 2023-02-21 13:28:00 50.92 kg/m2 [facility] Systolic blood pressure 2022-11-24 20:34:00 155 mm[Hg] [facility] Diastolic blood pressure 2022-11-24 20:34:00 87 mm[Hg] [facility] Heart rate 2022-11-24 20:22:00 73 /min [facility] Body temperature 2022-11-24 20:22:00 36.67 Zainab [facility] Respiratory rate 2022-11-24 20:22:00 20 /min [facility] Body height 2022-11-24 20:22:00 154.9 cm [facility] Body weight 2022-11-24 20:22:00 123.605 kg [facility] BMI 2022-11-24 20:22:00 51.49 kg/m2 [facility] Oxygen saturation in Arterial blood by Pulse oximetry 2022-11-24 20:22:00 98 /min [facility] Systolic blood pressure 2022-07-17 15:56:00 137 mm[Hg] [facility] Diastolic blood pressure 2022-07-17 15:56:00 79 mm[Hg] [facility] Heart rate 2022-07-17 15:56:00 73 /min [facility] Body temperature 2022-07-17 15:56:00 37 Zainab [facility] Respiratory rate 2022-07-17 15:56:00 18 /min [facility] Body height 2022-07-17 15:56:00 154.9 cm [facility] Body weight 2022-07-17 15:56:00 123.242 kg [facility] BMI 2022-07-17 15:56:00 51.34 kg/m2 [facility] Oxygen saturation in Arterial blood by Pulse oximetry 2022-07-17 15:56:00 95 /min [facility] Systolic blood pressure 2022-06-13 00:43:00 152 mm[Hg] [facility] Diastolic blood pressure 2022-06-13 00:43:00 98 mm[Hg] [facility] Heart rate 2022-06-13 00:41:00 90 /min [facility] Body temperature 2022-06-13 00:41:00 37.17 Zainab [facility] Respiratory rate 2022-06-13 00:41:00 16 /min [facility] Body height 2022-06-13 00:41:00 154.9 cm [facility] Body weight 2022-06-13 00:41:00 126.508 kg [facility] BMI 2022-06-13 00:41:00 52.70 kg/m2 [facility] Oxygen saturation in Arterial blood by Pulse oximetry 2022-06-13 00:41:00 97 /min [facility] Systolic blood pressure 2022-04-14 18:03:00 126 mm[Hg] [facility] Diastolic blood pressure 2022-04-14 18:03:00 87 mm[Hg] [facility] Heart rate 2022-04-14 18:03:00 83 /min [facility] Body temperature 2022-04-14 18:03:00 36.89 Zainab [facility] Respiratory rate 2022-04-14 18:03:00 18 /min [facility] Body height 2022-04-14 18:03:00 154.9 cm [facility] Body weight 2022-04-14 18:03:00 126.508 kg [facility] BMI 2022-04-14 18:03:00 52.70 kg/m2 [facility] Oxygen saturation in Arterial blood by Pulse oximetry 2022-04-14 18:03:00 97 /min [facility] Body weight 2022-04-03 18:36:00 126.554 kg [facility] BMI 2022-04-03 18:36:00 52.72 kg/m2 [facility] Oxygen saturation in Arterial blood by Pulse oximetry 2022-04-03 18:36:00 97 /min [facility] Systolic blood pressure 2022-04-03 18:36:00 146 mm[Hg] [facility] Diastolic blood pressure 2022-04-03 18:36:00 86 mm[Hg] [facility] Heart rate 2022-04-03 18:36:00 84 /min [facility] Body temperature 2022-04-03 18:36:00 37.11 Zainab [facility] Respiratory rate 2022-04-03 18:36:00 18 /min [facility] Body height 2022-04-03 18:36:00 154.9 cm [facility] Systolic blood pressure 2022-03-19 14:01:00 154 mm[Hg] [facility] Diastolic blood pressure 2022-03-19 14:01:00 82 mm[Hg] [facility] Heart rate 2022-03-19 14:01:00 61 /min [facility] Body temperature 2022-03-19 14:01:00 36.83 Zainab [facility] Respiratory rate 2022-03-19 14:01:00 18 /min [facility] Body height 2022-03-19 14:01:00 154.9 cm [facility] Body weight 2022-03-19 14:01:00 124.739 kg [facility] BMI 2022-03-19 14:01:00 51.96 kg/m2 [facility] Oxygen saturation in Arterial blood by Pulse oximetry 2022-03-19 14:01:00 100 /min [facility] Systolic blood pressure 2021-10-01 18:26:00 111 mm[Hg] [facility] Diastolic blood pressure 2021-10-01 18:26:00 76 mm[Hg] [facility] Heart rate 2021-10-01 18:26:00 103 /min [facility] Body temperature 2021-10-01 18:26:00 36.89 Zainab [facility] Respiratory rate 2021-10-01 18:26:00 16 /min [facility] Body height 2021-10-01 18:26:00 154.9 cm [facility] Body weight 2021-10-01 18:26:00 129.048 kg [facility] BMI 2021-10-01 18:26:00 53.76 kg/m2 [facility] Oxygen saturation in Arterial blood by Pulse oximetry 2021-10-01 18:26:00 100 /min [facility] Heart rate 2020-08-04 21:50:00 74 /min [facility] Respiratory rate 2020-08-04 21:50:00 23 /min [facility] Oxygen saturation in Arterial blood by Pulse oximetry 2020-08-04 21:50:00 95 /min [facility] Systolic blood pressure 2020-08-04 21:35:00 106 mm[Hg] [facility] Diastolic blood pressure 2020-08-04 21:35:00 63 mm[Hg] [facility] Body temperature 2020-08-04 20:49:00 36.5 Zainab [facility] Body height 2020-08-04 18:08:00 154.9 cm [facility] Body weight 2020-08-04 18:08:00 124.739 kg [facility] BMI 2020-08-04 18:08:00 51.96 kg/m2 [facility] Heart rate 2020-08-04 21:50:00 74 /min [facility] Respiratory rate 2020-08-04 21:50:00 23 /min [facility] Oxygen saturation in Arterial blood by Pulse oximetry 2020-08-04 21:50:00 95 /min [facility] Systolic blood pressure 2020-08-04 21:35:00 106 mm[Hg] [facility] Diastolic blood pressure 2020-08-04 21:35:00 63 mm[Hg] [facility] Body temperature 2020-08-04 20:49:00 36.5 Zainab [facility] Body height 2020-08-04 18:08:00 154.9 cm [facility] Body weight 2020-08-04 18:08:00 124.739 kg [facility] BMI 2020-08-04 18:08:00 51.96 kg/m2 [facility] Systolic blood pressure 2020-06-05 18:07:00 123 mm[Hg] [facility] Diastolic blood pressure 2020-06-05 18:07:00 75 mm[Hg] [facility] Heart rate 2020-06-05 18:07:00 70 /min [facility] Body temperature 2020-06-05 18:07:00 36.72 Zainab [facility] Respiratory rate 2020-06-05 18:07:00 16 /min [facility] Body height 2020-06-05 18:07:00 156.2 cm [facility] Body weight 2020-06-05 18:07:00 129.91 kg [facility] BMI 2020-06-05 18:07:00 53.24 kg/m2 [facility] Body temperature 2020-05-31 20:10:00 36 Zainab [facility] Body weight 2020-05-31 20:10:00 128.822 kg [facility] BMI 2020-05-31 20:10:00 53.66 kg/m2 [facility] Systolic blood pressure 2020-04-06 18:35:00 138 mm[Hg] [facility] Diastolic blood pressure 2020-04-06 18:35:00 83 mm[Hg] [facility] Heart rate 2020-04-06 18:35:00 65 /min [facility] Respiratory rate 2020-04-06 18:35:00 18 /min [facility] Body height 2020-04-06 18:35:00 154.9 cm [facility] Body weight 2020-04-06 18:35:00 122.018 kg [facility] BMI 2020-04-06 18:35:00 50.83 kg/m2 [facility] Systolic blood pressure 2020-03-16 19:12:00 120 mm[Hg] [facility] Diastolic blood pressure 2020-03-16 19:12:00 80 mm[Hg] [facility] Body height 2020-03-16 19:12:00 154.9 cm [facility] Body weight 2020-03-16 19:12:00 122.018 kg [facility] BMI 2020-03-16 19:12:00 50.83 kg/m2 [facility] Body height 2019-12-23 16:00:00 154.9 cm [facility] Body weight 2019-12-23 16:00:00 122.018 kg [facility] BMI 2019-12-23 16:00:00 50.83 kg/m2 [facility] Procedures Procedure Date / Time Performed Performing Clinician Source POCT MOLECULAR STREP 2024-02-02 15:55:00 Unknown, Jayson goncalves [facility] POCT SARS-COV-2 ANTIGEN (BINAX NOW) 2023-06-28 23:38:00 Cj Tierney [facility] POCT MOLECULAR STREP 2023-03-07 16:19:00 Gay, Jayson goncalves [facility] URINE CULTURE 2023-02-21 14:14:00 Mirta Correa [facility] GC & CHLAMYDIA AMPLIFIED ASSAY 2023-02-21 14:14:00 Mirta Correa [facility] HIV 1/2 AG-AB WITH REFLEX 2023-02-21 14:14:00 Mirta Correa [facility] HIGH RISK HPV-THIN PREP 2023-02-21 14:14:00 Mirta Correa [facility] TRICHOMONAS AMPLIFIED ASSAY 2023-02-21 14:14:00 Mirta Correa [facility] PAP SMEAR-LIQUID BASED-CP 2023-02-21 14:14:00 Mirta Correa [facility] SYPHILIS IGG/IGM 2023-02-21 14:14:00 Jose Correa [facility] GARDASIL 9 (HPV 9V) VACCINE 2023-02-21 13:56:00 Mirta Correa [facility] NO SHOW OR MISSED APPOINTMENT POLICY ACKNOWLEDGEMENT 2023-02-21 12:59:00 Doctor Unassigned, [place] [facility] ASSIGNMENT OF BENEFITS 2022-11-24 20:15:38 Docto r Unassigned, [place] [facility] POCT TEST 2022-07-17 16:33[facility] 2022-07-17 16:15:00 Nannette Juan [facility] XR KNEE 3 VW LEFT 2022-03-19 14:44:16 Lottie Garvin [facility] POCT TEST 2022-03-19 14:34:00 Jennifer Garvin [facility] COMP. METABOLIC PANEL (51030) 2022-03-19 14:27:00 Lottie Garvin [facility] CBC WITH DIFF 2022-03-19 14:27:00 Lottie Garvin [facility] PROTHROMBIN TIME / INR 2022-03-19 14:27:00 Esdras Garvin [facility] ACTIVATED PARTIAL THRMPLAS REMEDIOS 2022-03-19 14:27:00 Lottie Garvin [facility] URINALYSIS 2022-03-19 14:27:00 Lottie Garvin [facility] CONSENT/REFUSAL FOR DIAGNOSIS AND TREATMENT 2022-03-19 13:50:09 Doctor Unassigned, [place] [facility] CONSENT/REFUSAL FOR DIAGNOSIS AND TREATMENT 2021-10-01 18:15:24 Doctor Unassigned, [place] [facility] INTUBATION 2020-08-04 19:57:02 Luzma Almanza [facility] ASSIGNMENT OF BENEFITS 2020-08-04 16:10:14 Docnando r Unassigned, [place] [facility] DISCLOSURE AND CONSENT, MEDICAL AND SURGICAL PROCEDURES 2020-07-05 05:01:00 Doctor Unassigned, [place] [facility] HIV 1/2 AG-AB WITH REFLEX 2020-06-05 19:04:00 Casie Ortega [facility] GALV ONLY - SYPHILIS IGG/IGM 2020-06-05 19:04:00 Casie Ortega [facility] XR WRIST 3+ VW LEFT 2020-05-31 19:46:46 Torey Whyte [facility] MR WRIST LEFT WO CONTRAST 2020-03-31 20:18:12 Kami Bernard [facility] REFERRAL- REQUEST/RESPONSE 2020-03-23 05:01:00 D octor Unassigned, [place] [facility] SEDIMENTATION RATE 2019-12-23 17:06:00 Kami Bernard [facility] CBC WITH DIFFERENTIAL 2019-12-23 17:06:00 Jose R Bernard [facility] ASSIGNMENT OF BENEFITS 2019-12-23 15:57:07 Kelechi r Unassigned, [place] [facility] DME/SUPPLY JUSTIFICATION 2019-05-27 05:01:00 Doc kar Unassigned, [place] [facility] Encounters Start Date/Time End Date/Time Encounter Type Admission Type Attending Clinicians Care Facility Care Department Encounter ID Source 2021-08-24 19:16:32 Outpatient TOREY WHYTE [facility] [id number] [facility] 2024-02-23 10:30:00 2024-02-23 10:30:00 Outpatient MIRTA WOLFF [facility] [id number] [facility] 2024-02-03 00:00:00 2024-02-03 00:00:00 Telephone [facility] [id number] [id number] [id number] [facility] 2024-02-02 10:40:00 2024-02-02 11:19:57 Outpatient R AMELIA KAT [facility] [id number] [facility] 2024-02-02 10:40:00 2024-02-02 11:19:57 Urgent Care Amelia Kat Unknown, Attending [facility] 1..840.114 350.1.13.10 4.2.7.2.686 [id number] [facility] 2024-02-02 00:00:00 2024-02-02 00:00:00 Telephone Viraj Katkira [facility] 1..840.114 350.1.13.10 [id number] [id number] [facility] 2023-06-28 19:00:00 2023-06-28 19:00:00 Urgent Care Letitiajose mariaCj Unknown, Attending [facility] [id number] [id number] [id number] [id number] [facility] 2023-06-28 19:00:00 2023-06-28 18:52:42 Outpatient R CJ TIERNEY [facility] [id number] [facility] 2023-03-07 11:40:00 2023-03-07 12:00:00 Urgent Care Regla Baez Unknown, Attending [facility] [id number] 350.1.13.10 [id number] [id number] [facility] 2023-03-07 11:40:00 2023-03-07 11:40:00 Outpatient R REGLA BAEZ [facility] [id number] [facility] 2023-02-25 00:00:00 2023-02-25 00:00:00 [address] [facility] [employer]NAGER [facility] [id number] 350.1.13.10 4.2.7.2.686 [id number] [facility] 2023-02-25 00:00:00 2023-02-25 00:00:00 Telephone [address]ta Correa [facility] [employer] PROJECT MANAGER [facility] [id number] 350.1.13.10 [id number] [id number] [facility] 2023-02-24 00:00:00 2023-02-24 00:00:00 Telephone Mirta Correa [facility] [employer] PROJECT MANAGER [facility] [id number] 350.1.13.10 4.2.7.2.686 [id number] [facility] 2023-02-24 00:00:00 2023-02-24 00:00:00 Patient Secure Msg Mirta Correa [facility] [employer] MA[employer] [facility] [id number] 350.1.13.10 4.2.7.2.686 [id number] [facility] 2023-02-21 08:15:00 2023-02-21 09:14:08 Outpatient R MIRTA CORREA [facility] [id number] [facility] 2023-02-21 08:15:00 2023-02-21 09:14:08 Office Visit Mirta Correa [facility] [employer] PROJECT MANAGER [facility] [id number] 350.1.13.10 4.2.7.2.686 [id number] [facility] 2023-02-21 00:00:00 2023-02-21 00:00:00 Orders Only Doctor Unassigned, [place] [facility] [id number] 350.1.13.10 4.2.7.2.686 [id number] [facility] 2023-02-19 00:00:00 2023-02-19 00:00:00 Case Management Mary Jenniffer AVIVAMARY [id number] 350.1.13.10 4.2.7.2.686 [id number] [facility] 2023-02-19 00:00:00 2023-02-19 00:00:00 Telephone Jenniffer Hernandez 1.2840.114 350.1.13.10 4.2.7.2.686 [id number] [facility] 2022-12-04 00:00:00 2022-12-04 00:00:00 Telephone [facility] 1.2840.114 350.1.13.10 4.2.7.2.686 [id number] 370 [id number] [facility] 2022-11-24 14:20:00 2022-11-24 14:40:00 Urgent Care Latonia Curtis Unknown, Attending [facility] OFF[facility] 1.2840.114 350.1.13.10 4.2.7.2.686 [id number] 370 [id number] [facility] 2022-11-24 14:20:00 2022-11-24 14:20:00 Outpatient R LATONIA CURTIS [facility] [id number] [facility] 2022-11-24 00:00:00 2022-11-24 00:00:00 Orders Only Doctor Unassigned, [place] [facility] 1.2840.114 350.1.13.10 4.2.7.2.686 [id number] [id number] [facility] 2022-07-20 00:00:00 2022-07-20 00:00:00 Telephone [place] [facility] MEDICAL OFF[facility] BUILD[facility] 1..840.114 350.1.13.10 4.2.7.2.686 [id number] [facility] 2022-07-17 11:15:00 2022-07-17 11:29:07 Outpatient R DRAKE [facility] [id number] [facility] 2022-07-17 11:15:00 2022-07-17 11:29:07 Urgent Care [facility] MEDICAL OFFICE BUILDING 1..840.114 350.1.13.10 4.2.7.2.686 [id number] 370 [id number] [facility] 2022-06-12 19:20:00 2022-06-12 19:47:11 Outpatient R TOREY CESAR [facility] [id number] [facility] 2022-06-12 19:20:00 2022-06-12 19:47:11 Urgent Care CesarTorey, [facility] 1..840.114 350.1.13.10 4.2.7.2.686 [id number] 370 [id number] [facility] 2022-04-14 12:40:00 2022-04-14 13:52:43 Outpatient R REGLA BAEZ [facility] [id number] [facility] 2022-04-14 12:40:00 2022-04-14 13:52:43 Urgent Care Regla Baez Critical access hospital?[facility] 1..840.114 350.1.13.10 4.2.7.2.686 [id number] 370 [id number] [facility] 2022-04-03 14:20:00 2022-04-03 14:20:00 Urgent Care [place] Critical [facility] 1.2.840.114 350.1.13.10 4.2.7.2.686 [id number] 370 [id number] [facility] 2022-04-03 14:20:00 2022-04-03 14:03:55 Outpatient R [facility] [id number] [facility] 2022-03-19 09:01:00 2022-03-19 11:10:00 Emergency X GARVIN [facility] [id number] [facility] 2022-03-19 09:01:00 2022-03-19 11:10:00 Emergency Lottie Garvin [facility] 1.2.840.114 350.1.13.10 4.2.7.2.686 [id number] [facility] 2022-03-19 00:00:00 2022-03-19 00:00:00 Patient Secure Msg Doctor Unassigned, [place] [facility] 1.2.840.114 350.1.13.10 4.2.7.2.686 [id number] [facility] 2022-03-19 00:00:00 2022-03-19 00:00:00 Orders Only Doctor Unassigned, [place] [facility] 1.2.840.114 350.1.13.10 4.2.7.2.686 [id number] [id number] [facility] 2021-10-01 15:00:00 2021-10-01 13:13:59 Outpatient R D[facility]KE [facility] [id number] [facility] 2021-10-01 12:15:40 2021-10-01 13:13:59 Urgent Care [facility] 1.2840.114 350.1.13.10 4.2.7.2.686 [id number] 370 [id number] [facility] 2021-10-01 00:00:00 2021-10-01 00:00:00 Orders Only Doctor Unassigned, [place] [facility] 1.2.840.114 350.1.13.10 4.2.7.2.686 [id number] [id number] [facility] 2021-06-04 00:00:00 2021-06-04 00:00:00 Patient Secure Msg Casie Ortega Oli [facility] RENEWABLE ENERGY PROJECT MANAGER [facility] 1.2.840.114 350.1.13.10 4.2.7.2.686 [id number] 107 [id number] [facility] 2021-01-15 00:00:00 2021-01-15 00:00:00 Patient Outreach Harjit Sneed [facility] 1.2.840.114 350.1.13.10 4.2.7.2.686 [id number] 2021-01-15 00:00:00 2021-01-15 00:00:00 Patient Outreach Harjit Sneed [facility] 1.2.840.114 350.1.13.10 4.2.7.2.686 [id number] [facility] 2020-10-16 00:00:00 2020-10-16 00:00:00 Patient Secure Msg Doctor Unassigned, [place] [facility] RENEWABLE [employer]ER[employer] PROJECT MANAGER [facility] 1.2.840.114 350.1.13.10 4.2.7.2.686 [id number] [facility] 2020-08-23 14:00:00 2020-08-23 14:00:00 Outpatient R TOREY WHYTE [facility] [id number] [facility] 2020-08-22 00:00:00 2020-08-22 00:00:00 [facility] 1.2.840.114 350.1.13.10 4.2.7.2.686 [id number] [facility] 2020-08-09 00:00:00 2020-08-09 00:00:00 Telephone [facility] 1.2.840.114 350.1.13.10 4.2.7.2.686 [id number] [facility] 2020-08-09 00:00:00 2020-08-09 00:00:00 Telephone [facility] 1.2.840.114 350.1.13.10 4.2.7.2.686 [id number] 2020-08-04 11:12:00 2020-08-04 17:25:00 [facility] 1.2.840.114 350.1.13.10 4.2.7.2.686 [id number] [id number] [facility] 2020-08-04 11:12:00 2020-08-04 17:25:00 Hospital Encounter [facility] ([facility]) 1.2.840.114 350.1.13.10 4.2.7.2.686 [id number] [id number] 2020-08-04 14:32:00 2020-08-04 15:44:00 Anesthesia Ashley Alas David K [facility] 1.2.840.114 350.1.13.10 4.2.7.2.686 [id number] [facility] 2020-08-04 14:32:00 2020-08-04 15:44:00 Anesthesia Ashley Alas David K [facility] 1.2.840.114 350.1.13.10 4.2.7.2.686 [id number] 2020-08-04 00:00:00 2020-08-04 00:00:00 Orders Only Doctor Unassigned, [place] [facility] 1.2.840.114 350.1.13.10 4.2.7.2.686 [id number] [facility] 2020-08-04 00:00:00 2020-08-04 00:00:00 Orders Only Doctor Unassigned, [place] [facility] 1.2.840.114 350.1.13.10 4.2.7.2.686 [id number] [id number] 2020-08-03 15:30:00 2020-08-03 15:30:00 Outpatient R [facility] [id number] [facility] 2020-08-03 14:49:11 2020-08-03 15:04:01 Laboratory Only Only, Adc Test [facility] 1.2.840.114 350.1.13.10 4.2.7.2.686 [id number] [facility] 2020-08-03 14:49:11 2020-08-03 15:04:01 Laboratory Only Only, Adc Test [facility] 1.2.840.114 350.1.13.10 4.2.7.2.686 [id number] 2020-08-02 00:00:00 2020-08-02 00:00:00 [facility] [place] [facility] 1.2.840.114 350.1.13.10 4.2.7.2.686 [id number] [facility] 2020-08-02 00:00:00 2020-08-02 00:00:[address] [facility] CARE [place] [facility] 1.2.840.114 350.1.13.10 4.2.7.2.686 [id number] [facility] 2020-07-21 00:00:00 2020-07-21 00:00:00 Patient Secure Msg Doctor Unassigned, [place] [facility] [employer] PROJECT MANAGER [facility] 1.2.840.114 350.1.13.10 4.2.7.2.686 [id number] 107 [id number] [facility] 2020-07-20 00:00:00 2020-07-20 00:00:00 Patient Secure Msg Isabell [facility] AT [facility] 1.2.840.114 350.1.13.10 4.2.7.2.686 [id number] [facility] 2020-07-19 00:00:00 2020-07-19 00:00:00 Telephone [facility] 1.2.840.114 350.1.13.10 4.2.7.2.686 [id number] [facility] 2020-07-07 00:00:00 2020-07-07 00:00:00 Patient Secure Msg Isabell [facility] AT [facility] 1.2.840.114 350.1.13.10 4.2.7.2.686 [id number] [facility] 2020-07-05 11:28:58 2020-07-05 11:38:58 Telemedici ne Visit Isabell [facility] AT [facility] 1.2.840.114 350.1.13.10 4.2.7.2.686 [id number] [facility] 2020-07-05 11:10:00 2020-07-05 11:10:00 Outpatient R TOREY WHYTE [facility] [id number] [facility] 2020-07-05 00:00:00 2020-07-05 00:00:00 Patient Secure Msg Doctor Unassigned, [place] [facility] RENEW[employer]ER[employer] PROJECT MANAGER [facility] 1.2.840.114 350.1.13.10 4.2.7.2.686 [id number] [facility] 2020-07-05 00:00:00 2020-07-05 00:00:00 Orders Only Doctor Unassigned, [place] [facility] 1.2840.114 350.1.13.10 4.2.7.2.686 [id number] [facility] 2020-06-21 13:30:00 2020-06-21 13:30:00 Outpatient R RUEL IQBAL [facility] [id number] [facility] 2020-06-20 00:00:00 2020-06-20 00:00:00 Patient Secure Msg Torey Whyte [facility] PRIMARY CARE PAVILLION 1.840.114 350.1.13.10 4.2.7.2.686 [id number] 198 [id number] [facility] 2020-06-19 16:19:58 2020-06-19 16:20:05 Insole Doubler Visit Lab, Ang-Rmchp Casie Ortega [facility] RENEWABLE ENERGY PROJECT MANAGER [facility] 1.840.114 350.1.13.10 4.2.7.2.686 [id number] 107 [id number] [facility] 2020-06-19 15:40:00 2020-06-19 15:40:00 Outpatient R TOREY WHYTE [facility] [id number] [facility] 2020-06-19 15:15:00 2020-06-19 15:15:00 Outpatient CASIE NOEL [facility] [id number] [facility] 2020-06-19 00:00:00 2020-06-19 00:00:00 Telephone Torey Whyte [facility] PRIMARY CARE PAVILLION 1.840.114 350.1.13.10 4.2.7.2.686 [id number] [facility] 2020-06-16 00:00:00 2020-06-16 00:00:00 Patient Secure Msg Doctor Unassigned, [place] [facility] RENEWABLE ENERGY PROJECT MANAGER [facility] 1.2.840.114 350.1.13.10 4.2.7.2.686 [id number] 107 [id number] [facility] 2020-06-13 00:00:00 2020-06-13 00:00:00 Patient Secure Msg Doctor Unassigned, [place] [facility] RENEWABLE ENERGY PROJECT MANAGER [facility] 1.2.840.114 350.1.13.10 4.2.7.2.686 [id number] 107 [id number] [facility] 2020-06-12 00:00:00 2020-06-12 00:00:00 Telephone Casie Ortega [facility] RENEWABLE ENERGY PROJECT MANAGER [facility] 1.2.840.114 350.1.13.10 4.2.7.2.686 [id number] 107 [id number] [facility] 2020-06-06 00:00:00 2020-06-06 00:00:[address] [facility] RENEWABLE ENERGY PROJECT MANAGER [facility] 1.2.840.114 350.1.13.10 4.2.7.2.686 [id number] 107 [id number] [facility] 2020-06-05 12:48:43 2020-06-05 14:03:05 Office Visit Casie Ortega [facility] RENEWABLE ENERGY PROJECT MANAGER [facility] 1.2.840.114 350.1.13.10 4.2.7.2.686 [id number] 107 [id number] [facility] 2020-06-05 12:45:00 2020-06-05 12:45:00 Outpatient R CASIE ORTEGA [facility] [id number] [facility] 2020-05-31 14:36:23 2020-05-31 23:59:00 Hospital Encounter Torey Whyte [facility] 1.2.84.114 350.1.13.10 4.2.7.2.686 [id number] [facility] 2020-05-31 14:17:05 2020-05-31 15:56:27 Office Visit ElhamricardoTorey [facility] 1.2.114 350.1.13.10 4.2.7.2.686 [id number] [facility] 2020-05-31 14:30:00 2020-05-31 14:30:00 Outpatient R ELHAMRICARDOTOREY [facility] [id number] [facility] 2020-04-24 00:00:00 2020-04-24 00:00:00 Patient Secure Msg Doctor Unassigned, [place] [facility] 1.840.114 350.1.13.10 4.2.7.2.686 [id number] [facility] 2020-04-12 13:00:00 2020-04-12 13:00:00 Outpatient R ISABELLTOREY [facility] [id number] [facility] 2020-04-12 00:00:00 2020-04-12 00:00:00 Patient Secure Msg Doctor Unassigned, [place] [facility] RENEWABLE ENERGY PROJECT MANAGER [facility] 1.84.114 350.1.13.10 4.2.7.2.686 [id number] [facility] 2020-04-06 15:30:00 2020-04-06 15:30:00 Outpatient R KAMI BERNARD [facility] [id number] [facility] 2020-04-06 13:33:51 2020-04-06 14:02:35 Office Visit Kami Bernard [facility] 1.84.114 350.1.13.10 4.2.7.2.686 [id number] [facility] 2020-03-31 14:26:45 2020-03-31 23:59:00 Outpatient R KAMI BERNARD [facility] [id number] [facility] 2020-03-31 14:00:00 2020-03-31 23:59:00 Hospital Encounter Kami Bernard [facility] 1.2.840.114 350.1.13.10 4.2.7.2.686 [id number] [facility] 2020-03-23 00:00:00 2020-03-23 00:00:00 Orders Only Doctor Unassigned, [place] [facility] 1.2.840.114 350.1.13.10 4.2.7.2.686 [id number] [id number] [facility] 2020-03-22 00:00:00 2020-03-22 00:00:00 Telephone Kami Bernard [facility] Surgical Special amara Cosby 1.2.840.114 350.1.13.10 4.2.7.2.686 [id number] [facility] 2020-03-16 14:10:26 2020-03-16 14:24:02 Office Visit Kami Bernard [facility] Surgical Special amara Cosby 1.2.840.114 350.1.13.10 4.2.7.2.686 [id number] [facility] 2020-03-16 14:15:00 2020-03-16 14:15:00 Outpatient R KAMI BERNARD [facility] [id number] [facility] 2020-03-16 13:15:00 2020-03-16 13:15:00 Outpatient R KAMI BERNARD [facility] [id number] [facility] 2020-01-11 13:45:00 2020-01-11 13:45:00 Outpatient JOHN NAQVI [facility] [id number] [facility] 2020-01-06 14:45:00 2020-01-06 14:45:00 Outpatient JOHN NAQVI [facility] [id number] [facility] 2019-12-30 10:15:00 2019-12-30 10:15:00 Outpatient R KAMI BERNARD [facility] [id number] [facility] 2019-12-30 00:00:00 2019-12-30 00:00:00 Patient Secure John Mcgovern [facility] Health Surgical Specialti amara Limaton 1.2.840.114 350.1.13.10 4.2.7.2.686 [id number] [facility] 2019-12-23 10:51:53 2019-12-23 11:06:53 Insole Doubler Visit Pob, Adc Lab Main Kami Bernard [facility] 1.2840.114 350.1.13.10 4.2.7.2.686 [id number] [facility] 2019-12-23 09:56:57 2019-12-23 10:15:25 Office Visit Kami Bernard [facility] Surgical Special amara Kenney 1.2840.114 350.1.13.10 4.2.7.2.686 [id number] [facility] 2019-12-23 10:15:00 2019-12-23 10:15:00 Outpatient R KAMI BERNARD [facility] [id number] [facility] 2019-12-23 00:00:00 2019-12-23 00:00:00 Orders Only Doctor Unassigned, [place] [facility] 1.2.840.114 350.1.13.10 4.2.7.2.686 [id number] [facility] 2019-05-27 00:00:00 2019-05-27 00:00:00 Orders Only Doctor Unassigned, [place] [facility] 1.2.840.114 350.1.13.10 4.2.7.2.686 [id number] [facility] 2019-05-27 00:00:00 2019-05-27 00:00:00 Telephone [facility] 1.2.840.114 350.1.13.10 4.2.7.2.686 [id number] [facility] 2014-05-30 00:00:00 2014-05-30 00:00:00 Patient Secure Msg Doctor Unassigned, [place] [facility] 1..840.114 350.1.13.10 4.2.7.2.686 [id number] [facility] Results Test Description Test Time Test Comments Results Result Co mments Source [facility] SARS-COV-2 ANTIGEN (BINAX NOW)2023-06-28 23:40:00* Test Item Value Reference Range Interpretation Comme nts POCT SARS-COV-2 ANTIGEN (test code = 82816-5) Not Detected Not Detected On board controls acceptable with C Line (test code = 3574) Yes FIONA (test code = FIONA) accurate developme nt and interpretation of all internal controls Lab Interpretation (test code = 16488-8) Normal [facility] SARS-COV-2 ANTIGEN (BINAX NOW)2023-06-28 23:40:00* Test Item Value Reference Range Interpretation Comme nts POCT SARS-COV-2 ANTIGEN (test code = 61649-9) Not Detected Not Detected On board controls acceptable with C Line (test code = 3574) Yes FIONA (test code = FIONA) accurate developme nt and interpretation of all internal controls Lab Interpretation (test code = 52358-5) Normal [facility] MOLECULAR [id number] 16:26:28* Test Item Value Reference Range Interpretation Comme nts POCT Molecular Strep (test c ode = 81764-1) Negative Negative Lab Interpretation (test cod e = 77990-9) [id number] 16:53:38* Test Item Value Reference Range Interpretation Comme nts Syphilis IgG/IgM (test code = 61882-9) Non-reactive Non-reactive FIONA (test code = FIONA) Non-reactive - No serologic evidence of T. pallidum infection. Cannot exclude incubating or early syphilis. Submit a second specimen in 2-4 weeks if syphilis is clinically suspected. Equivocal - Further testing to follow. Reactive - Further testing to follow. Lab Interpretation (test code = 18144-8) [facility] WITH [id number] 05:24:24* Test Item Value Reference Range Interpretation Comme nts HIV Semi-quantitative (test code = 16581-0) 0.07 Negative FIONA (test code = FIONA) Non-reactive for HIV-1 antigen and HIV-1/HIV-2 antibodies. ?No laboratory evidence of HIV infection. ?Repeat in 2-4 weeks if acute HIV infection is suspected. [facility] [id number] 16:44:00* Test Item Value Reference Range Interpretation Comme nts POCT PREG (test code = 1605) Negative On board controls acceptable with C Line (test code = 3574) Yes POCT PREG LOT # (test code = 3575) [id number] POCT PREG TEST DATE (test code = 3576) FIONA (test code = FIONA) accurate developme nt and interpretation of all internal controls Lab Interpretation (test code = 36416-2) Normal [facility] URINALYSIS W SPECIFIC [id number] 16:16:00* Test Item Value Reference Range Interpretation [...] clear Lab Interpretation (test cod e = 94194-6) Normal [facility] WITH [id number] 15:36:23* Test Item Value Reference Range Interpretation [...] 33.6 g/dL 31.6-35.1 RDW-SD (test code = 95428-7) 43.0 fL 39.0-49.9 RDW-CV (test code = 788-0) 13.8 % 12.0-15.5 PLT (test code = 777-3) See_Comment [Automated messa ge] The system which generated this result transmitted reference range: 166 - 358 10*3/?L. The reference range was not used to interpret this result as normal/abnormal. MPV (test code = 75941-0) 10.8 fL 9.5-12.9 NRBC/100 WBC (test code = 9705559682) See_Comment [Automated [employer] ssage] The system which generated this result transmitted reference range: 0.0 - 10.0 /100 WBCs. The reference range was not used to interpret this result as normal/abnormal. NRBC x10^3 (test code = 0556132762) <0.01 See_Comment [Automated messa ge] The system which generated this result transmitted reference range: 10*3/?L. The reference range was not used to interpret this result as normal/abnormal. GRAN MAT (NEUT) % (test code = 770-8) 59.6 % IMM GRAN % (test code = 2580453862) 0.40 % LYMPH % (test code = 736-9) 29.0 % MONO % (test code = 5905-5) 7.7 % EOS % (test code = 713-8) 2.9 % BASO % (test code = 706-2) 0.4 % GRAN MAT x10^3(ANC) (test code = 5602552359) 8.31 10*3/uL 1.88-7.09 H IMM GRAN x10^3 (test code = 3739602389) 0.06 10*3/uL 0.00-0.06 LYMPH x10^3 (test code = 731-0) 4.05 10*3/uL 1.32-3.29 H MONO x10^3 (test code = 742-7) 1.07 10*3/uL 0.33-0.92 H EOS x10^3 (test code = 711-2) 0.41 10*3/uL 0.03-0.39 H BASO x10^3 (test code = 704-7) 0.05 10*3/uL 0.01-0.07 REACT LYMPHS (test code = 8912962898) Rare Lab Interpretation (test code = 25422-0) [facility] [id number] 15:06:58* Test Item Value Reference Range Interpretation Comme nts APTT Patient (test code = 3173-2) See_Comment [Automated message] The system which generated this result transmitted reference range: 23 - 38 Seconds. The reference range was not used to interpret this result as normal/abnormal. FIONA (test code = FIONA) The [facility] patient population mean normal value for aPTT is 30 seconds. Lab Interpretation (test code = 13141-5) [facility] / [id number] 15:04:57* Test Item Value Reference Range Interpretation Comme [facility] PROT[facility] PATIENT (test code = 5964-2) See_Comment [Automated messa ge] The system which generated this result transmitted reference range: 12.0 - 14.7 Seconds. The reference range was not used to interpret this result as normal/abnormal. INR (test code = 6301-6) Normal INR <1.1; Warfarin Therapeutic range 2.0 to 3.0 or 2.5 to 3.5, depending upon the indications. Lab Interpretation (test code = 45942-7) Normal [facility]. METABOLIC PANEL ([id number])2022-03-19 14:58:33* Test Item Value Reference Range Interpretation Comme nts NA (test code = 6988999522) 141 mmol/L 135-145 K (test code = 6359593106) 4.3 mmol/L 3.5-5.0 CL (test code = 8202039323) 107 mmol/L 98-108 CO2 TOTAL (test code = 9465695784) 24 mmol/L 23-31 AGAP (test code = 1511632783) 2-16 BUN (test code = 2058440055) 11 mg/dL 7-23 GLUCOSE (test code = 2605184629) 116 mg/dL 70-110 H CREATININE (test code = 8479512713) 0.71 mg/dL 0.50-1.04 TOTAL BILI (test code = 8756976704) 0.5 mg/dL 0.1-1.1 CALCIUM (test code = 5383574447) 9.3 mg/dL 8.6-10.6 T PROTEIN (test code = 9806084095) 7.0 g/dL 6.3-8.2 ALBUMIN (test code = 3834608232) 4.3 g/dL 3.5-5.0 ALK PHOS (test code = 4588050642) 63 U/L 34-122 ALTv (test code = 1742-6) 48 U/L 5-35 H AST(SGOT) (test code = 9458799388) 33 U/L 13-40 eGFR (test code = 3126276203) mL/min/1.73m2 FIONA (test code = FIONA) Association [...] imaging tests). Lab Interpretation (test code = 08166-6) [facility]72 14:34:00* Test Item Value Reference Range Interpretation Comme nts POCT PREG (test code = 1605) negative On board controls acceptable with C Line (test code = 3574) present POCT PREG LOT # (test code = 3575) [id number] POCT PREG TEST DATE ( test code = 3576) 07-26-2023 Lab Interpretation (test cod e = 81497-0) [facility] 19:57:02HoLuzma Fairchild CRNA ? ? 08/04/2020 ?2:57 PMIntubationDate/Time: 08/04/2020 2:39 PMUrgency: elective Airway not difficult General Information and Staff Patient location during procedure: ORResident/EVIDENCE CUSTODIAN: Luzma Almanza CRNAPerformed: resident/EVIDENCE CUSTODIAN Indications and Patient ConditionIndications for airway management: [...] and BBS, teeth and lips per preop assessmentUnAdventHealthGALV ONLY - SYPHILIS IGG/IGM 2020-06-06 13:57:00* Test Item Value Reference Range Interpretation [facility] IgG/IgM (test code = 89605-5) Non-reactive Non-reactive FIONA (test code = FIONA) Non-reactive - No serologic evidence of T. pallidum infection. Cannot exclude incubating or early syphilis. Submit a second specimen in 2-4 weeks if syphilis is clinically suspected. Equivocal - Further testing to follow. Reactive - Further testing to follow. Lab Interpretation (test code = 14733-7) [facility] AG-AB WITH IYGKHF1402-17-16 05:48:00* Test Item Value Reference Range Interpretation Comme [facility] HIV Semi-quantitative (test code = 83480-1) Negative Negative FIONA (test code = FIONA) Non-reactive for HIV-1 antigen and HIV-1/HIV-2 antibodies. ?No laboratory evidence of HIV infection. ?Repeat in 2-4 weeks if acute HIV infection is suspected. [facility]+ VW PCKV3853-76-28 20:09:52 Osteonecrosis of the lunate. Nonspecific swelling [...] of the lunate.Nonspecific swelling over the medial forearm.[facility]SS2021-56-91 17:35:00* Test Item Value Reference Range Interpretation Comme nts ESR (test code = 0926408267) See_Comment [Automated messa ge] The system which generated this result transmitted reference range: 0 - 20 mm/HR. The reference range was not used to interpret this result as normal/abnormal. Lab Interpretation (test code = 40624-8) [facility] CROS6379-90-99 17:35:00* Test Item Value Reference Range Interpretation Comme nts ESR (test code = 6115359252) See_Comment [Automated messa ge] The system which generated this result transmitted reference range: 0 - 20 mm/HR. The reference range was not used to interpret this result as normal/abnormal. Lab Interpretation (test code = 37597-1) Normal [facility] WITH FFWGSWUWJYRQ9900-14-18 17:10:00* Test Item Value Reference Range Interpretation [...] g/dL 31.6-35.1 L RDW-SD (test code = 94549-7) 45.0 fL 39-49.9 RDW-CV (test code = 788-0) 14.9 % 12-15.5 PLT (test code = 777-3) See_Comment [Automated messa ge] The system which generated this result transmitted reference range: 166 - 358 10*3/?L. The reference range was not used to interpret this result as normal/abnormal. MPV (test code = 16399-1) 10.0 fL 9.5-12.9 NRBC/100 WBC (test code = 3622993382) See_Comment [Automated me ssage] The system which generated this result transmitted reference range: 0.0 - 10.0 /100 WBCs. The reference range was not used to interpret this result as normal/abnormal. NRBC x10^3 (test code = 5793754797) <0.01 See_Comment [Automated messa ge] The system which generated this result transmitted reference range: 10*3/?L. The reference range was not used to interpret this result as normal/abnormal. GRAN MAT (NEUT) % (test code = 770-8) 60.7 % IMM GRAN % (test code = 7270189369) 0.50 % LYMPH % (test code = 736-9) 28.4 % MONO % (test code = 5905-5) 7.5 % EOS % (test code = 713-8) 2.5 % BASO % (test code = 706-2) 0.4 % GRAN MAT x10^3(ANC) (test code = 4947569569) 5.91 10*3/uL 1.88-7.09 IMM GRAN x10^3 (test code = 7822655618) 0.05 10*3/uL 0-0.06 LYMPH x10^3 (test code = 731-0) 2.76 10*3/uL 1.32-3.29 MONO x10^3 (test code = 742-7) 0.73 10*3/uL 0.33-0.92 EOS x10^3 (test code = 711-2) 0.24 10*3/uL 0.03-0.39 BASO x10^3 (test code = 704-7) 0.04 10*3/uL 0.01-0.07 Lab Interpretation (test code = 58467-3) Abnormal [facility] WITH KIZSMCABREBF3595-17-83 17:10:00* Test Item Value Reference Range Interpretation [...] g/dL 31.6-35.1 L RDW-SD (test code = 17090-6) 45.0 fL 39-49.9 RDW-CV (test code = 788-0) 14.9 % 12-15.5 PLT (test code = 777-3) See_Comment [Automated Harper[employer]za ge] The system which generated this result transmitted reference range: 166 - 358 10*3/?L. The reference range was not used to interpret this result as normal/abnormal. MPV (test code = 75095-9) 10.0 fL 9.5-12.9 NRBC/100 WBC (test code = 5502088426) See_Comment [Automated [employer] ssage] The system which generated this result transmitted reference range: 0.0 - 10.0 /100 WBCs. The reference range was not used to interpret this result as normal/abnormal. NRBC x10^3 (test code = 6690406309) <0.01 See_Comment [Automated Harperlabza ge] The system which generated this result transmitted reference range: 10*3/?L. The reference range was not used to interpret this result as normal/abnormal. GRAN MAT (NEUT) % (test code = 770-8) 60.7 % IMM GRAN % (test code = 0908733739) 0.50 % LYMPH % (test code = 736-9) 28.4 % MONO % (test code = 5905-5) 7.5 % EOS % (test code = 713-8) 2.5 % BASO % (test code = 706-2) 0.4 % GRAN MAT x10^3(ANC) (test code = 4050707859) 5.91 10*3/uL 1.88-7.09 IMM GRAN x10^3 (test code = 9890295309) 0.05 10*3/uL 0-0.06 LYMPH x10^3 (test code = 731-0) 2.76 10*3/uL 1.32-3.29 MONO x10^3 (test code = 742-7) 0.73 10*3/uL 0.33-0.92 EOS x10^3 (test code = 711-2) 0.24 10*3/uL 0.03-0.39 BASO x10^3 (test code = 704-7) 0.04 10*3/uL 0.01-0.07 Lab Interpretation (test code = 05669-5) [facility] Notes Date/Time Note Provider Source 2024-02-06 16:21:50 nxM7fYi3j6ViwO9TjHRY WH66LgJAHkA4J 0XHLm4zkoLvqEhcJu+ATEEvNa5NcMLi57 18-02-12T16:21:50Addended by: PATRICIA BRIONES on: 02/06/2024 04:21 PMModules accepted: Orders 39079-1Accvcdmb HeoaesdjGM7539-78-38O18:21:50Adde ndum DocumentTXT1.2.840.855746.1.13.10 4.2.7.2.100236|[id number] [facility] uvin26360-9RuedBEWAQVSKQDWNvdpdzk ed C-CDA narrative textUTMBCHRISTUS ST. [facility] - [address] UhnzJiwtmelwrXswbqeswrYLRR4675990 674BSQAEPTMRHNXEQODKBXTVJ7266-72- 12T16:21:501.2.840.809205.1.72.3. 15|1.2.840.534933.1.13.104.2.7.2. 727879_[id number] [facility] 2024-02-06 16:21:34 39S4U8JZZP+BYTLV1H3s Sc8/XxQWQSRwi 9tjynLjUmjFiW5aL/spHmSWDRTQARxP41 18-02-12T16:21:34 Rx needs to be brand name , rx resent 01266-3Ejlykazwh encounter KsjzRW6307-16-36Y43:21:47Telephon e encounter NoteTXT1.2.840.727941.1.13.104.2. 7.2.085202|[id number] for patient yrlk51956-0AtquTZZEBEEPRAXSuuhhqv ed C-CDA narrative text[address] WrcnOwweelcitEzguusvaoXYFX2357110 108PUOGASNTMRELFRUNNVOUCA8186-19- 12T16:21:471.2.840.314033.1.72.3. 15|1.2.840.723365.1.13.104.2.7.2. 727879_[id number] [facility] 2024-02-04 09:28:35 sPr5DLwWmidj0DqHfNto KC7sUl+Y1Fmvo lpoC4LD7P0jjjDAJx4ZxzWD+KCQaaIy37 17-02-1009:28:35 CÉSAR initiatedKey: [id number] signed by Devika Leblanc RN at 02/04/2024 9:31 AM RLD42011-2Bwkkofutw encounter XmgkWB1520-67-08G62:31:02Telephon e encounter NoteTXT1.2.840.705173.1.13.104.2. 7.2.971039|[id number] for patient dzsv31544-8AincXBDMEVIGRIYChccenk ed C-CDA narrative nljy143790196Brelhymu Moss [address] RyrgAdepkacxqUwheuotmmETYX2541099 444UEUDMSFQLEMXYWJDZUCTGN4428-35- 10T09:31:021.2.840.215876.1.72.3. 15|1.2.840.383034.1.13.104.2.7.2. 727879_[id number] Devika Leblanc [facility] 2024-02-03 15:10:41 MhGnz3RHUc8e07A3t6lA 4axFbhkGcYFZZ T3wDkB/a2JPMVa6xIwg2eQ0qBnhAt7g46 17-02-09T15:10:41 Images from the original note were not included. 40772-8Wzmjjcpoy encounter TxjhAH3010-95-69H22:11:47Telephon e encounter NoteTXT1.2.840.876233.1.13.104.2. 7.2.171441|[id number] for patient tevj60872-2OpmsBMTENKJJYZGDhenwfx ed C-CDA narrative [id number] K Mar[address] TrlcGicukruocEtoujgkoqDCGA4937620 544TKEUUODSWZAYWOGIKNQGDB1347-27- 09T15:11:471.2.840.230403.1.72.3. 15|1.2.840.015584.1.13.104.2.7.2. 727879_[id number] Vera Renee [facility] 2024-02-02 11:49:22 ct7Ck7okW5G2zeEyiczy C38nGoX0fygtC HQNSbLnMysCEfr2aszeE8MRBmTX28ZV57 18-02-081:49:22 Corrected Rx resent to [facility] pharmacy.Felipa Bryant RN 02/02/2024 11:50 AM 18413-9Smayuexti encounter HwmxUJ7863-39-97V00:50:44Telephon e encounter NoteTXT1.2.840.513002.1.13.104.2. 7.2.780670|[id number] for patient zbza16198-4AllqVLSVHSESNDWCnrvyyu ed C-CDA narrative [id number] Barroso RN[address] StreetTXTX[address]5577 100YXHOVHQXWWIERONLMRYLUN8341-82- 08T11:50:441.2.840.137125.1.72.3. 15|1.2.840.961894.1.13.104.2.7.2. 727879_[id number] Felipa Bryant RN [facility] 2024-02-02 11:30:49 SmdQ8eWdUrZEnzz7Rkis eszym6HpXnwFR Nz4yY+mcLBUUhp1a1lhTEXl2tjlww0V96 18-02-08T11:30:49 Copied from [facility] #[id number]. 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 & [address] [address] [place] [address]Cnlvb: [phone] Kcdtoomojsrkdn signed by John Desai at 02/02/2024 11:31 AM KIB04291-3Fqelviyjr encounter XczhQG9875-13-92W87:31:48Telephon e encounter NoteTXT1.2.840.442762.1.13.104.2. 7.2.240782|[id number] for patient nolv43142-9EganGMAUNBYFFNWKfvyzif ed C-CDA narrative [id number] Hernandez[address] SbbfCqcckrwbkMblenkusqWBOO0951994 652ZZHPGFQEKCIWGJTIZYGAFX4684-51- 08T11:31:481.2.840.345732.1.72.3. 15|1.2.840.332848.1.13.104.2.7.2. 727879_[id number] John Desai [facility]"
[2024-02-11 11:13] LABS: SARS-CoV-2 Antigen CONTROL BLUE LINE VIS/BG OK; SARS-CoV-2 Antigen Rapid Res Negative (Negative)
--- NOTE | 2024-02-11 11:49 | ER ---
Nurse's Notes [facility] Name: Priscilla Solo Age: 38 yrs Sex: Female : 1985 Arrival Date: 02/11/2024 Time: 09:40 Bed IW1 Private MD: Diagnosis: Viral infection, unspecified Presentation: 02/10 10:00 Chief complaint: Patient states: she started having sore throat, cough and congestion a ap3 few days ago. Coronavirus screen: Client presents with at least one sign or symptom that may indicate coronavirus-19. Ebola Screen: No symptoms or risks identified at this time. Initial Sepsis Screen: Does the patient meet any 2 criteria? No. Patient's initial sepsis screen is negative. Does the patient have a suspected source of infection? No. Patient's initial sepsis screen is negative. Risk Assessment: Do you want to hurt yourself or someone else? Patient reports no desire to harm self or others. Onset of symptoms was February 07, 2024. 10:00 Method Of Arrival: Ambulatory ap3 10:00 Acuity: ERIC 4 ap3 Triage Assessment: 10:01 General: Appears in no apparent distress. Behavior is calm, cooperative, appropriate ap3 for age. Pain: Complains of pain in throat, generalized body aches. EENT: Reports pain when swallowing. Neuro: Level of Consciousness is awake, alert, obeys commands, Oriented to person, place, time, situation. Historical: - Allergies: 10:01 Lamictal; ap3 10:01 Latex; ap3 10:01 Morphine; ap3 - PMHx: 10:01 ADD/ADHD; Anxiety; Anxiety; Asthma; cardiomyopathy; CHF; Hypertension; ap3 - PSHx: 10:01 Appendectomy; section; L wrist SX x 2; tubal ligation; ap3 - Immunization history:: Client reports receiving the 2nd dose of the Covid vaccine. - Infectious Disease History:: Denies. - Social history:: Smoking status: Patient denies any tobacco usage or history of. Screenin:02 Abuse screen: Denies threats or abuse. Nutritional screening: No deficits noted. ap3 Tuberculosis screening: No symptoms or risk factors identified. 10:45 [facility] ED Fall Risk Assessment (Adult) History of falling in the last 3 months, ko1 including since admission No falls in past 3 months (0 pts) Confusion or Disorientation No (0 pts) Intoxicated or Sedated No (0 pts) Impaired Gait No (0 pts) Mobility Assist Device Used No (0 pt) Altered Elimination No (0 pt) Score/Fall Risk Level 0 - 2 = Low Risk Oriented to surroundings, Maintained a safe environment, Educated pt \T\ family on fall prevention, incl call for assistance when getting out of bed, Assessed \T\ reinforced patient's understanding of fall precautions. Assessment: 10:35 EENT: Reports difficulty swallowing nasal congestion. ko1 Vital Signs: 10:00 BP 139 / 89; Pulse 70; Resp 18; Temp 97.4; Pulse Ox 100% ; Weight 123.38 kg; Height 5 ap3 ft. 1 in. ; Pain 6/10; 10:45 BP 135 / 85; Pulse 74; Resp 16; Pulse Ox 100% ; ko1 10:00 Body Mass Index 51.39 (123.38 kg, 154.94 cm) ap3 10:00 Pain Scale: Adult ap3 ED Course: 09:44 Patient arrived in ED. mg5 09:44 Chencho Jacobs MD is Attending Physician. ec2 10:01 Triage completed. ap3 10:14 Strep Sent. ap3 10:14 SARS RAPID Sent. ap3 10:14 Influenza Screen (a \T\ B) Sent. ap3 10:45 No provider procedures requiring assistance completed. Patient did not have IV access ko1 during this emergency room visit. 10:45 Patient has correct armband on for positive identification. Provided Education on: na. ko1 Administered Medications: No medications were administered Medication: 10:45 VIS not applicable for this client. ko1 Outcome: 11:48 Discharge ordered by . ec2 12:00 Discharged to home ambulatory, ko1 12:00 Condition: stable 12:00 Discharge instructions given to patient, Instructed on discharge instructions, follow up and referral plans. medication usage, Demonstrated understanding of instructions, follow-up care, medications, Prescriptions given X 2, 12:00 Patient left the ED. ko1 Signatures: Nannette Esparza RN RN ap3 Priscilla Elizabeth RN RN ko1 Estephania Navarro mg5 Chencho Jacobs MD MD ec2
--- NOTE | 2024-02-11 11:49 | EDPHYS ---
Physician Documentation [facility] Name: Priscilla Solo Age: 38 yrs Sex: Female : 1985 Arrival Date: 02/11/2024 Time: 09:40 Bed IW1 Private MD: ED Physician Chencho Jacobs HPI: 02/10 10:01 This 38 yrs old Female presents to ER via Ambulatory with complaints of Flu Symptoms. ec2 10:01 Patient arrives today for URI signs symptoms ongoing for 3 days. Patient having cough ec2 and congestion as well as sore throat. Patient reports no fevers or chills, does complain of some nausea as well. Some generalized bodyaches as well.. Historical: - Allergies: 10:01 Lamictal; ap3 10:01 Latex; ap3 10:01 Morphine; ap3 - PMHx: 10:01 ADD/ADHD; Anxiety; Anxiety; Asthma; cardiomyopathy; CHF; Hypertension; ap3 - PSHx: 10:01 Appendectomy; section; L wrist SX x 2; tubal ligation; ap3 - Immunization history:: Client reports receiving the 2nd dose of the Covid vaccine. - Infectious Disease History:: Denies. - Social history:: Smoking status: Patient denies any tobacco usage or history of. ROS: 10:01 Constitutional: as per hpi ec2 Exam: 10:01 Constitutional: GEN: NAD Head: atraumatic Eyes: EOMI Ears: External ears are ec2 normal. CV: regular rate LUNGS: no respiratory distress ABD: non-distended SKIN: no evidence of rashes MSK: no evidence of trauma NEURO: moves all extremities equally Vital Signs: 10:00 BP 139 / 89; Pulse 70; Resp 18; Temp 97.4; Pulse Ox 100% ; Weight 123.38 kg; Height 5 ap3 ft. 1 in. ; Pain 6/10; 10:45 BP 135 / 85; Pulse 74; Resp 16; Pulse Ox 100% ; ko1 10:00 Body Mass Index 51.39 (123.38 kg, 154.94 cm) ap3 10:00 Pain Scale: Adult ap3 MDM: 09:50 Patient medically screened. ec2 10:01 Data reviewed: vital signs. ED course: Patient arrives today for URI symptoms. ec2 Examination remarkable for well-appearing nontoxic dividual who is reassuring examination and reassuring vital signs. Obtain viral swab as well as strep swab. Evaluate for viral infection, possible strep pharyngitis. Will treat the patient with Zofran and Tessalon Perles outpatient as needed. . 11:48 ED course: Swabs negative will discharge with symptomatic management. . ec2 02/10 09:52 Order name: Influenza Screen (a \T\ B); Complete Time: 11:48 ec2 02/10 09:52 Order name: SARS RAPID; Complete Time: 11:48 ec2 02/10 10:01 Order name: Strep ec2 02/10 11:15 Order name: Throat Culture EDMS Administered Medications: No medications were administered Disposition Summary: 02/11/24 11:48 Discharge Ordered Notes: Location: Home ec2 Condition: Stable ec2 Diagnosis - Viral infection, unspecified ec2 Followup: ec2 - With: Private Physician - When: - Reason: Re-evaluation by your physician Discharge Instructions: - Discharge Summary Sheet ec2 - Viral Illness, Adult ec2 Forms: - Medication Reconciliation Form ec2 - Thank You Letter ec2 - Antibiotic Education ec2 - Prescription Opioid Use ec2 - Patient Portal Instructions ec2 - Leadership Thank You Letter ec2 Prescriptions: - Zofran 4 mg Oral Tablet - take 1 tablet ORAL route every 12 hours As needed; 20 tablet; Refills: 0, ec2 Product Selection Permitted - Tessalon Perles 100 mg Oral Capsule - take 1 capsule ORAL route every 8 hours As needed; 15 capsule; Refills: 0, ec2 Product Selection Permitted Signatures: Dispatcher [employer] Nannette Stephenson RN RN ap3 Chencho Jacobs MD MD ec2 Corrections: (The following items were deleted from the chart) 10:57 10:57 Patient medically screened. ec2 ec2
[2024-02-11 18:00] VITALS: TEMP 97.4; O2SAT 100
[2024-02-11 18:22] VITALS: BP 135/85
== END 2024-02-11 12:00 | disposition home or self-care (01) ==
LOC: ER 09:40
DX: B34.9 Viral infection, unspecified (principal); Z11.52 Encounter for screening for COVID-19; Z88.5 Allergy status to narcotic agent; Z88.8 Allergy status to other drugs, medicaments and biological substances; Z91.040 Latex allergy status
CPT/HCPCS: 36415; 87070; 87081; 87804; 87811

== ENCOUNTER 2024-05-25 18:54 | Emergency (ER) | payer OTHER ==
--- OUTSIDE RECORDS SUMMARY | 2024-05-25 19:00 | XMS REPORT | Continuity of Care Document ---
Author Name Unknown Address [address] [facility] [address] [place] [address] [facility] Address [address] [facility] [place] [address] Care Team Providers Care Dealer Compliance Representative Name Role Phone Marleny Floyd Primary Care Physician TOREY WHYTE Attending Clinician Unavailable Theresa Odonnell Attending Clinician [phone] THERESA TRENT Attending Clinician Unavailable Unknown, Attending Attending Clinician Unavailab MIRTA Murillo Attending Clinician Unavail able Amelia Kat MD Attending Clinician [phone] AMELIA KAT Attending Clinician Unavail able Cj Shields Attending Clinician [phone] CJ TIERNEY Attending Clinician Unavailable Regla Solano Attending Clinician [phone] REGLA WILSON Attending Clinician Unavailab Mirta Hael Attending Clinician + Doctor Unassigned, Terra Bella Attending Clinician Terrell Hernandez RN, Jenniffer Ramos Attending Clinician UnaLatonia Nesbitt Attending Clinician [phone] Bello Arango Attending Clinician NANNETTE JUAN Attending Clinician Unavailable Drake LATIF, Nannette Attending Clinician [phone] TOREY CESAR Attending Clinician Unavailable Torey Cesar PA-C Attending Clinician [phone] BELLO KURTZ Attending Clinician Unavailable LOTTIE GARVIN Attending Clinician Unavailable Lottie Garvin MD Attending Clinician [phone] Casie Whipple Attending Clinician Unava ilable Harjit Sneed DO Attending Clinician [phone] Torey Whyte MD Attending Clinician [phone] Bishop GARVEY, Ashley Attending Clinician Unavailab reese Angeles MD, Mirza Diaz Attending Clinician [phone] Only, Adc Test Attending Clinician Unavailable RUEL IQBAL Attending Clinician Unavailable Lab, [facility] Attending Clinician Unavailable CASIE ORTEGA Attending Clinician Unavailab KAMI Castano Attending Clinician UnavailKami Llamas MD Attending Clinician [phone] JOHN RIVERA Attending Clinician Unavailable John Arenas Attending Clinician [phone] Pob, [facility] Main Attending Clinician Unavailabl Haja Ramsey DO Attending Clinician [phone] TOREY WHYTE Admitting Clinician Unavailable LOTTIE GARVIN Admitting Clinician Unavailable Torey Whyte MD Admitting Clinician [phone] KAMI BERNARD Admitting Clinician Unavailabl e Payers Payer Name Policy Type Policy Number Effective Date Expirati on Date Source [facility] [id number] 2012 00:00:00 Problems Condition Name Condition Details Condition Category Status Onset Date Resolution Date Last Treatment Date Treating Clinician Comments Source Encounter for contracept toñito management , unspecifie d type Encounter for contracept toñito management , unspecifie d type Disease Active 01-27 00:00: 00 [facility] Encounter for contracept toñito management , unspecifie d type Encounter for contracept toñito management , unspecifie d type Disease Active 01-27 00:00: 00 [facility] History of bilateral tubal ligation History of bilateral tubal ligation Disease Active 01-27 00:00: 00 [facility] Morbid obesity Morbid obesity Disease Active 01-27 00:00: 00 [facility] BMI 50.0-59.9, adult BMI 50.0-59.9, adult Disease Active 01-27 00:00: 00 [facility] Research study patient Research study patient Disease Active 12-12 00:00: 00 Overview: Formattin g of this note is different from the original. Patient is in the HCTZ study IRB # [id number] y questions please contact:Rachel Manley MD [phone] Hightower MD [phone] Frias MD [phone] facts Patient randomize d after delivery if they met inclusion criteria a nd accepted Medicati on comes from [facility] not pharmacy, [facility] Phone Number Ext. [phone] or cell [phone] Patient can start meds as soon as they tolerate PO One tab per day of either placebo or HCTZ Medicati on stays with patient Medicati on will appear on DEC, Nurses need to randy as given (No barcode) Medicati on needs to counted prior to discharge by research security team lead All follow ups need to be on POD or PP day # 14 or more Patient needs to be reminded to bring their left over medicatio n and bottle back to their visit [facility] needs to be notified at time of discharge Please contact Dr. Manley with any Questions [facility] Pain pelvic Pain pelvic Disease Active 218 00:00: 00 [facility] Depression Depression Disease Active 05-18 00:00: 00 [facility] Asthma Asthma Disease Active 05-18 00:00: 00 Overview: Formattin g of this note might be different from the original. 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 [facility] Allergies, Adverse Reactions, Alerts Allergy Name Allergy Type Status Severity Reaction(s) Onset Date Inactive Date Treating Clinician Comments Source Morphine Drug Allergy Active Itching 2019-10 0-09 00:00: 00 [facility] MORPHINE DRUG INGREDI Active Low ITCHING 2019-10 0 00:00: 00 [facility] Latex Propensi ty to adverse reaction s Active Rash 12-11 00:00: 00 [facility] LATEX DRUG INGREDI Active Rash 12-11 00:00: 00 [facility] Social History Social Habit Start Date Stop Date Quantity Comments Source Gender identity [facility] Alcoholic beverage intake 2024-04-05 00:00:00 2024-04-05 00:00:00 0 /d [facility] Alcohol intake 2023-11-18 00:00:00 2023-11-18 00:00:00 0 /d [facility] Exposure to SARS-CoV-2 (event) 2023-02-25 00:00:00 2023-03-07 11:03:00 Not sure [facility] History of Social function 2022-07-17 00:00:00 2022-07-17 00:00:00 [facility] Tobacco use and exposure 2022-06-12 00:00:00 2022-06-12 00:00:00 Smokeless tobacco non-user [facility] Alcohol Comment 2014-05-18 00:00:00 2014-05-18 00:00:00 rarely [facility] Sex assigned at 1985 00:00:00 1985 00:00:00 [facility] Smoking Status Start Date Stop Date Source Never smoked tobacco [facility] Medications Ordered Medication Name Filled Medication Name Start Date Stop Date Current Medication? Ordering Clinician Indication Dosage Frequency Signature (SIG) Comments Components Source albuterol 90 mcg/actuati on inhaler 04-05 00:00: 00 04-16 04:59 :00 Yes [id number] 2{puff} Inhale 2 Puffs every 6 (six) hours as needed for Wheezing for up to 10 days. [facility] benzonatate 200 mg capsule 04-05 00:00: 00 04-16 04:59 :00 Yes [id number] 200mg Take 1 capsule by mouth 3 (three) times daily as needed for Cough for up to 10 days. [facility] albuterol 2.5 mg /3 mL (0.083 %) nebulizer solution 04-05 00:00: 00 04-16 04:59 :00 Yes [id number] 2.5mg Inhale 3 mL every 4 (four) hours as needed for Wheezing or Shortness of Breath for up to 10 days. [facility] predniSONE 20 mg tablet 04-05 00:00: 00 04-11 04:59 :00 Yes [id number] 20mg Take 1 tablet by mouth in the morning for 5 days. [facility] SYMBICORT 160-4.5 mcg/actuati on inhaler 02-05 00:00: 00 Yes [id number] 2{puff} Inhale 2 Puffs in the morning and 2 Puffs in the evening. [facility] albuterol 90 mcg/actuati on inhaler 02-01 00:00: 00 Yes [id number] 2{puff} Inhale 2 Puffs every 6 (six) hours as needed for Wheezing or Shortness of Breath. [facility] fluconazole (DIFLUCAN) 150 mg tablet 02-01 00:00: 00 Yes [id number] Take 1 tab by mouth now and repeat in 3 days [facility] azithromyci n (ZITHROMAX Z-ANUEL) 250 mg tablet 02-01 00:00: 00 02-07 04:59 :00 No [id number] 250mg Take 1 tablet by mouth in the morning for 5 days. Please dispense a z pack [facility] budesonide- formoteroL (SYMBICORT) 160-4.5 mcg/actuati on inhaler 02-01 00:00: 00 02-05 00:00 :00 No [id number] 2{puff} Inhale 2 Puffs in the morning and 2 Puffs in the evening. [facility] azithromyci n 500 mg tablet 02-01 00:00: 00 02-01 00:00 :00 No [id number] 500mg Take 1 tablet by mouth SEE-INSTRU CTIONS. [facility] benzonatate 200 mg capsule 03-07 00:00: 00 03-18 04:59 :00 No [id number] 200mg Take 1 capsule by mouth 3 (three) times daily as needed for Cough for up to 10 days. [facility] fluconazole (DIFLUCAN) 150 mg tablet 03-07 00:00: 00 03-08 04:59 :00 No [id number] 150mg Take 1 tablet by mouth once now for 1 dose. [facility] metroNIDAZO LE 500 mg tablet 02-25 00:00: 00 02-26 04:59 :00 No [id number] 2000mg Take 4 tablets by mouth once now for 1 dose. [facility] ampicillin 500 mg capsule 02-24 00:00: 00 03-07 04:59 :00 No [id number] 500mg Take 1 capsule by mouth 4 (four) times daily for 10 days. [facility] fluconazole (DIFLUCAN) 150 mg tablet 02-21 00:00: 00 02-22 04:59 :00 No [id number] 150mg Take 1 tablet by mouth once now for 1 dose. [facility] cetirizine (ZYRTEC) 10 mg tablet 11-24 00:00: 00 Yes [id number] 10mg Take 1 tablet by mouth in the morning. [facility] Nebulizer Accessories (ADULT AEROSOL MASK) Misc 11-24 00:00: 00 Yes [id number] Use as directed [facility] fluconazole (DIFLUCAN) 150 mg tablet 11-24 00:00: 00 02-01 00:00 :00 No [id number] Take 1 tab by mouth now and repeat in 3 days [facility] albuterol 2.5 mg/0.5 mL nebulizer solution 11-24 00:00: 00 12-25 05:59 :00 No [id number] 2.5mg Inhale 0.5 mL every 6 (six) hours as needed for Wheezing for up to 30 days. [facility] amoxicillin -clavulanat e (AUGMENTIN) 875-125 mg per tablet 11-24 00:00: 00 12-05 05:59 :00 No [id number] 1{tbl} Take 1 tablet by mouth in the morning and 1 tablet in the evening. Do all this for 10 days. [facility] sulfamethox azole-trime thoprim (BACTRIM DS) 800-160 mg per tablet 07-20 00:00: 00 07-28 04:59 :00 No [id number] 1{tbl} Take 1 tablet by mouth in the morning and 1 tablet in the evening. Do all this for 7 days. [facility] ondansetron 4 mg disintegrat ing tablet 07-17 00:00: 00 02-21 00:00 :00 No [id number] 4mg Take 1 tablet by mouth every 8 (eight) hours as needed for Nausea and Vomiting (N/V). [facility] cetirizine (ZYRTEC) 10 mg tablet 07-17 00:00: 00 11-24 00:00 :00 No [id number] 10mg Take 1 tablet by mouth in the morning. [facility] polymyxin B sulf-trimet hoprim 10,000 unit- 1 mg/mL ophthalmic drops 07-17 00:00: 00 07-25 04:59 :00 No [id number] 1[drp] Place 1 Drop in both eyes 4 (four) times daily for 7 days. [facility] fluconazole (DIFLUCAN) 150 mg tablet 07-17 00:00: 00 07-18 04:59 :00 No [id number] 150mg Take 1 tablet by mouth once now for 1 dose. [facility] amoxicillin -clavulanat e (AUGMENTIN) 875-125 mg per tablet 06-12 00:00: 00 06-20 04:59 :00 No [id number] 1{tbl} Take 1 tablet by mouth in the morning and 1 tablet in the evening. Do all this for 7 days. [facility] benzonatate 200 mg capsule 04-14 00:00: 04-25 04:59 :00 No [id number] 200mg Take 1 capsule by mouth 3 (three) times daily as needed for Cough for up to 10 days. [facility] amoxicillin -clavulanat e (AUGMENTIN) 875-125 mg per tablet 04-14 00:00: 00 04-22 04:59 :00 No [id number] 1{tbl} Take 1 tablet by mouth 2 (two) times daily for 7 days. [facility] amoxicillin -clavulanat e 875-125 mg per tablet 04-03 00:00: 00 04-11 04:59 :00 No [id number] 1{tbl} Take 1 tablet by mouth 2 (two) times daily for 7 days. [facility] ibuprofen 600 mg tablet 03-19 00:00: 00 07-17 00:00 :00 No [id number] 100 600mg Take 1 tablet by mouth every 6 (six) hours as needed for Pain (scale 4-6). [facility] albuterol 90 mcg/actuati on inhaler 2020-10 00:00: 00 02-01 00:00 :00 No [id number] 2{puff} Inhale 2 Puffs every 6 (six) hours as needed for Wheezing or Shortness of Breath. [facility] budesonide- formoteroL (SYMBICORT) 160-4.5 mcg/actuati on inhaler 2020-10 00:00: 00 02-01 00:00 :00 No [id number] 2{puff} Inhale 2 Puffs 2 (two) times daily. [facility] ondansetron 4 mg disintegrat ing tablet 2020-10 00:00: 00 02-21 00:00 :00 No [id number] 4mg Take 1 tablet by mouth every 8 (eight) hours as needed for Nausea and Vomiting (N/V). [facility] guaiFENesin 400 mg tablet 2020-10 00:00: 00 07-17 00:00 :00 No [id number] 400mg Take 1 tablet by mouth every 4 (four) hours as needed for Cough. [facility] benzonatate 100 mg capsule 2020-10 00:00: 00 04-14 00:00 :00 No [id number] 200mg Take 2 capsules by mouth 2 (two) times daily as needed for Cough. [facility] amoxicillin -clavulanat e (AUGMENTIN) 875-125 mg per tablet 2020-10 00:00: 00 10-09 05:59 :00 No [id number] 1{tbl} Take 1 tablet by mouth 2 (two) times daily for 7 days. [facility] proMETHazin e (PHENERGAN) 25 mg in NaCl 0.9% (NS) 50 mL IV piggyback 2019-10 21:26: 00 08-04 21:35 :00 No 25mg 25 mg, IV Piggyback, ONCE, 1 dose, Fri08/04/20 at 1630, Routine, PACU [facility] FENTanyl PF (SUBLIMAZE (PF)) injection 25 mcg 2019-10 20:54: 14 Yes 25ug 25 mcg, Slow IV Push, Q5MIN PRN, 4 doses, Starting Fri08/04/20 at 1554, Until Discontinu ed, Routine, Pain (scale 7-10), PACU [facility] ketorolac (TORADOL) injection 30 mg 2019-10 20:54: 14 08-04 21:44 :00 No 30mg 30 mg, Slow IV Push, PRN, 1 dose, Starting 08/04/20 at 1554, Until Discontinu ed, Routine, Pain (scale 4-6), [facility] : PACU RECOVERY [facility] ondansetron (ZOFRAN (PF)) injection 4 mg 2019-10 20:54: 14 08-04 21:01 :00 No 4mg 4 mg, Slow IV Push, PRN, 1 dose, Starting Fri08/04/20 at 1554, Until Fri08/04/20 at 1601, Routine, Nausea and Vomiting (N/V), PACU [facility] ondansetron (ZOFRAN (PF)) injection 2019-10 20:14: 00 08-04 20:54 :20 No ONCE INTRA PROCEDURE, Starting Fri08/04/20 at 1514, Until Fri08/04/20 at 1554, Routine, Intra-op [facility] bupivacaine -epinephrin e-pf (SENSORCAIN E W/EPINEPHRI NE) 0.25 %-1:200,000 injection 2019-10 20:12: 00 Yes PRN, Starting Fri08/04/20 at 1512, Until Discontinu ed, Routine, [facility] PHENYLephri ne 1000 mcg/10 mL in 0.9% NaCl syringe 2019-10 20:05: 00 08-04 20:54 :20 No ONCE INTRA PROCEDURE, Starting Fri08/04/20 at 1505, Until Fri08/04/20 at 1554, Routine, Intra-op [facility] ePHEDrine 25 mg/5 mL (5 mg/mL) syringe 2019-10 20:00: 00 08-04 20:54 :20 No ONCE INTRA PROCEDURE, Starting Fri08/04/20 at 1500, Until Fri08/04/20 at 1554, Routine, Intra[facility] HYDROmorphO ne (DILAUDID) injection 2019-10 19:51: 00 08-04 20:54 :20 No ONCE INTRA PROCEDURE, Starting Fri08/04/20 at 1451, Until Fri08/04/20 at 1554, Routine, Intra-op [facility] ceFAZolin (ANCEF) injection 2019-10 19:44: 00 08-04 20:54 :20 No ONCE INTRA PROCEDURE, Starting Fri08/04/20 at 1444, Until Fri08/04/20 at 1554, ELAINE, Intra-op [facility] acetaminoph en ADULT (OFIRMEV) injection 2019-10 19:40: 00 08-04 20:54 :20 No Administer over 15 Minutes, ONCE INTRA PROCEDURE, Starting 08/04/20 at 1440, Until Fri08/04/20 at 1554, Routine, Intra-op [facility] propofoL IV infusion 2019-10 19:38: 00 08-04 20:54 :20 No ONCE INTRA PROCEDURE, Starting 08/04/20 at 1438, Until Fri08/04/20 at 1554, Routine, Intra-op [facility] lidocaine 1% (XYLOCAINE) 100 mg/10 mL (1 %) injection 2019-10 19:37: 00 08-04 20:54 :20 No ONCE INTRA PROCEDURE, Starting 08/04/20 at 1437, Until Fri08/04/20 at 1554, Routine, Intra-op [facility] FENTanyl PF (SUBLIMAZE (PF)) injection 2019-10 19:37: 00 08-04 20:54 :20 No ONCE INTRA PROCEDURE, Starting 08/04/20 at 1437, Until 08/04/20 at 1554, Routine, Intra-op [facility] midazolam (VERSED) injection 2019-10 19:32: 00 08-04 20:54 :20 No ONCE INTRA PROCEDURE, Starting 08/04/20 at 1432, Until 08/04/20 at 1554, Routine, Intra-op [facility] lactated ringers IV infusion 2019-10 18:28: 00 08-04 20:54 :20 No CONTINUOUS PRN, Starting Fri08/04/20 at 1328, Until 08/04/20 at 1554, Routine, Intra-op [facility] lactated ringers IV infusion 1,000 mL 2019-10 16:15: 00 08-04 18:29 :00 No 1000mL at 42 mL/hr, 1,000 mL, IV Infusion, ONCE, 1 dose, Fri08/04/20 at 1115, Routine, DSU Pre-op [facility] gabapentin 300 mg capsule 2019-10 00:00: 10-04 05:59 :00 No [id number] 300mg Take 1 capsule by mouth 3 (three) times daily for 60 days. [facility] HYDROcodone -acetaminop hen 5-325 mg tablet 2019-10 0 00:00: 00 08-12 04:59 :00 No [id number] 1{tbl} Take 1 tablet by mouth every 6 (six) hours as needed for Pain (scale 4-6) for up to 7 days. Indication s: acute pain [facility] ond[facility] 4 mg tablet 2019-10 00:00: 00 08-12 04:59 :00 No [id number] 4mg Take 1 tablet by mouth every 8 (eight) hours as needed for Nausea and Vomiting (N/V) for up to 7 days. [facility] nystatin-tr iamcinolone cream 06-05 00:00: 00 07-17 00:00 :00 No [id number] Apply to area(s) 3 (three) times daily. [facility] indomethaci n 50 mg capsule 03-01 00:00: 06-05 00:00 :00 No TK 1 C PO Q 6 H PRN [facility] PROAIR HFA 90 mcg/actuati on inhaler 02-02 00:00: 00 Yes [facility] SYMBICORT 160-4.5 mcg/actuati on inhaler 02-02 00:00: 00 10-01 00:00 :00 No [facility] azithromyci n 250 mg tablet 02-02 00:00: 00 06-05 00:00 :00 No [facility] amoxicillin -clavulanat e 875-125 mg per tablet 2-10 00:00: 00 10-01 00:00 :00 No TK 1 T PO BID [facility] norethindro ne-ethinyl estradiol 1-20 mg-mcg per tablet 1-30 00:00: 00 07-17 00:00 :00 No [facility] MY WAY 1.5 mg tablet 1-20 00:00: 00 07-17 00:00 :00 No [facility] escitalopra m oxalate 20 mg tablet 1-10 00:00: 00 Yes TK 1 T PO QD [facility] traZODONE 50 mg tablet 03-04 00:00: 00 Yes TAKE 1 TABLET BY MOUTH EVERYDAY AT BEDTIME [facility] escitalopra m oxalate 10 mg tablet 03-04 00:00: 00 07-17 00:00 :00 No TAKE 1 TABLET BY MOUTH EVERY MORNING [facility] No known medications No [facility] Immunizations Ordered Immunization Name Filled Immunization Name Date Status Comments Source HPV9 2023-02-21 00:00:00 Completed [facility] HPV9 2023-02-21 00:00:00 Completed [facility] HPV9 2023-02-21 00:00:00 Completed [facility] HPV9 2023-02-21 00:00:00 Completed [facility] HPV9 2023-02-21 00:00:00 Completed [facility] HPV9 2023-02-21 00:00:00 Completed [facility] HPV9 2023-02-21 00:00:00 Completed [facility] HPV9 2023-02-21 00:00:00 Completed [facility] HPV9 2023-02-21 00:00:00 Completed [facility] HPV9 2023-02-21 00:00:00 Completed [facility] HPV9 2023-02-21 00:00:00 Completed [facility] HPV9 2023-02-21 00:00:00 Completed [facility] TDAP 2017-10-16 00:00:00 Completed [facility] Influenza Virus Vaccine Quad IM 3+ YRS 2017-10-16 00:00:00 Completed [facility] Tdap 2017-10-16 00:00:00 Completed [facility] Influenza Virus Vaccine Quad IM 3+ YRS 2017-10-16 00:00:00 Completed [facility] TDAP 2017-10-16 00:00:00 Completed [facility] Influenza Virus Vaccine Quad IM 3+ YRS 2017-10-16 00:00:00 Completed [facility] TDAP 2017-10-16 00:00:00 Completed [facility] Influenza Virus Vaccine Quad IM 3+ YRS 2017-10-16 00:00:00 Completed [facility] TDAP 2017-10-16 00:00:00 Completed [facility] Influenza Virus Vaccine Quad IM 3+ YRS 2017-10-16 00:00:00 Completed [facility] TDAP 2017-10-16 00:00:00 Completed [facility] Influenza Virus Vaccine Quad IM 3+ YRS 2017-10-16 00:00:00 Completed [facility] TDAP 2017-10-16 00:00:00 Completed [facility] Influenza Virus Vaccine Quad IM 3+ YRS 2017-10-16 00:00:00 Completed [facility] Tdap 2017-10-16 00:00:00 Completed [facility] Influenza Virus Vaccine Quad IM 3+ YRS 2017-10-16 00:00:00 Completed [facility] TDAP 2017-10-16 00:00:00 Completed [facility] Influenza Virus Vaccine Quad IM 3+ YRS 2017-10-16 00:00:00 Completed [facility] TDAP 2017-10-16 00:00:00 Completed [facility] Influenza Virus Vaccine Quad IM 3+ YRS 2017-10-16 00:00:00 Completed [facility] TDAP 2017-10-16 00:00:00 Completed [facility] Influenza Virus Vaccine Quad IM 3+ YRS 2017-10-16 00:00:00 Completed [facility] TDAP 2017-10-16 00:00:00 Completed [facility] Influenza Virus Vaccine Quad IM 3+ YRS 2017-10-16 00:00:00 Completed [facility] TDAP 2017-10-16 00:00:00 Completed [facility] Influenza Virus Vaccine Quad IM 3+ YRS 2017-10-16 00:00:00 Completed [facility] TDAP 2017-10-16 00:00:00 Completed [facility] Influenza Virus Vaccine Quad IM 3+ YRS 2017-10-16 00:00:00 Completed [facility] TDAP 2017-10-16 00:00:00 Completed [facility] Influenza Virus Vaccine Quad IM 3+ YRS 2017-10-16 00:00:00 Completed [facility] TDAP 2017-10-16 00:00:00 Completed [facility] Influenza Virus Vaccine Quad IM 3+ YRS 2017-10-16 00:00:00 Completed [facility] Tdap 2017-10-16 00:00:00 Completed [facility] Influenza Virus Vaccine Quad IM 3+ YRS 2017-10-16 00:00:00 Completed [facility] TDAP 2017-10-16 00:00:00 Completed [facility] Influenza Virus Vaccine Quad IM 3+ YRS 2017-10-16 00:00:00 Completed [facility] TDAP 2017-10-16 00:00:00 Completed [facility] Influenza Virus Vaccine Quad IM 3+ YRS 2017-10-16 00:00:00 Completed [facility] TDAP 2017-10-16 00:00:00 Completed [facility] Influenza Virus Vaccine Quad IM 3+ YRS 2017-10-16 00:00:00 Completed [facility] TDAP 2017-10-16 00:00:00 Completed [facility] Influenza Virus Vaccine Quad IM 3+ YRS 2017-10-16 00:00:00 Completed [facility] TDAP 2017-10-16 00:00:00 Completed [facility] Influenza Virus Vaccine Quad IM 3+ YRS 2017-10-16 00:00:00 Completed [facility] TDAP 2017-10-16 00:00:00 Completed [facility] Influenza Virus Vaccine Quad IM 3+ YRS 2017-10-16 00:00:00 Completed [facility] Tdap 2017-10-16 00:00:00 Completed [facility] Influenza Virus Vaccine Quad IM 3+ YRS 2017-10-16 00:00:00 Completed [facility] TDAP 2017-10-16 00:00:00 Completed [facility] Influenza Virus Vaccine Quad IM 3+ YRS 2017-10-16 00:00:00 Completed [facility] TDAP 2017-10-16 00:00:00 Completed [facility] Influenza Virus Vaccine Quad IM 3+ YRS 2017-10-16 00:00:00 Completed [facility] Tdap 2017-10-16 00:00:00 Completed [facility] Influenza Virus Vaccine Quad IM 3+ YRS 2017-10-16 00:00:00 Completed [facility] Tdap 2017-10-16 00:00:00 Completed [facility] Influenza Virus Vaccine Quad IM 3+ YRS 2017-10-16 00:00:00 Completed [facility] Tdap 2017-10-16 00:00:00 Completed [facility] Influenza Virus Vaccine Quad IM 3+ YRS 2017-10-16 00:00:00 Completed [facility] Tdap 2017-10-16 00:00:00 Completed [facility] Influenza Virus Vaccine Quad IM 3+ YRS 2017-10-16 00:00:00 Completed [facility] Tdap 2017-10-16 00:00:00 Completed [facility] Influenza Virus Vaccine Quad IM 3+ YRS 2017-10-16 00:00:00 Completed [facility] TDAP 2017-10-16 00:00:00 Completed [facility] Influenza Virus Vaccine Quad IM 3+ YRS 2017-10-16 00:00:00 Completed [facility] TDAP 2017-10-16 00:00:00 Completed [facility] Influenza Virus Vaccine Quad IM 3+ YRS 2017-10-16 00:00:00 Completed [facility] TDAP 2017-10-16 00:00:00 Completed [facility] Influenza Virus Vaccine Quad IM 3+ YRS 2017-10-16 00:00:00 Completed [facility] TDAP 2017-10-16 00:00:00 Completed [facility] Influenza Virus Vaccine Quad IM 3+ YRS 2017-10-16 00:00:00 Completed [facility] TDAP 2017-10-16 00:00:00 Completed [facility] Tdap 2017-10-16 00:00:00 Completed [facility] Influenza Virus Vaccine Quad IM 3+ YRS 2017-10-16 00:00:00 Completed [facility] Influenza Virus Vaccine Quad IM 3+ YRS 2017-10-16 00:00:00 Completed [facility] TDAP 2017-10-16 00:00:00 Completed [facility] Influenza Virus Vaccine Quad IM 3+ YRS 2017-10-16 00:00:00 Completed [facility] TDAP 2017-10-16 00:00:00 Completed [facility] Influenza Virus Vaccine Quad IM 3+ YRS 2017-10-16 00:00:00 Completed [facility] TDAP 2017-10-16 00:00:00 Completed [facility] Influenza Virus Vaccine Quad IM 3+ YRS 2017-10-16 00:00:00 Completed [facility] TDAP 2017-10-16 00:00:00 Completed [facility] Influenza Virus Vaccine Quad IM 3+ YRS 2017-10-16 00:00:00 Completed [facility] TDAP 2017-10-16 00:00:00 Completed [facility] Influenza Virus Vaccine Quad IM 3+ YRS 2017-10-16 00:00:00 Completed [facility] Tdap 2017-10-16 00:00:00 Completed [facility] Influenza Virus Vaccine Quad IM 3+ YRS 2017-10-16 00:00:00 Completed [facility] TDAP 2017-10-16 00:00:00 Completed [facility] Influenza Virus Vaccine Quad IM 3+ YRS 2017-10-16 00:00:00 Completed [facility] TDAP 2017-10-16 00:00:00 Completed [facility] Influenza Virus Vaccine Quad IM 3+ YRS 2017-10-16 00:00:00 Completed [facility] TDAP 2017-10-16 00:00:00 Completed [facility] Influenza Virus Vaccine Quad IM 3+ YRS 2017-10-16 00:00:00 Completed [facility] TDAP 2017-10-16 00:00:00 Completed [facility] Influenza Virus Vaccine Quad IM 3+ YRS 2017-10-16 00:00:00 Completed [facility] TDAP 2017-10-16 00:00:00 Completed [facility] Influenza Virus Vaccine Quad IM 3+ YRS 2017-10-16 00:00:00 Completed [facility] TDAP 2017-10-16 00:00:00 Completed [facility] Influenza Virus Vaccine Quad IM 3+ YRS 2017-10-16 00:00:00 Completed [facility] TDAP 2017-10-16 00:00:00 Completed [facility] Influenza Virus Vaccine Quad IM 3+ YRS 2017-10-16 00:00:00 Completed [facility] TDAP 2017-10-16 00:00:00 Completed [facility] Influenza Virus Vaccine Quad IM 3+ YRS 2017-10-16 00:00:00 Completed [facility] TDAP 2017-10-16 00:00:00 Completed [facility] Influenza Virus Vaccine Quad IM 3+ YRS 2017-10-16 00:00:00 Completed [facility] Tdap 2017-10-16 00:00:00 Completed [facility] Influenza Virus Vaccine Quad IM 3+ YRS 2017-10-16 00:00:00 Completed [facility] TDAP 2017-10-16 00:00:00 Completed [facility] Influenza Virus Vaccine Quad IM 3+ YRS 2017-10-16 00:00:00 Completed [facility] TDAP 2017-10-16 00:00:00 Completed [facility] Influenza Virus Vaccine Quad IM 3+ YRS 2017-10-16 00:00:00 Completed [facility] TDAP 2017-10-16 00:00:00 Completed [facility] Influenza Virus Vaccine Quad IM 3+ YRS 2017-10-16 00:00:00 Completed [facility] TDAP 2017-10-16 00:00:00 Completed [facility] Influenza Virus Vaccine Quad IM 3+ YRS 2017-10-16 00:00:00 Completed [facility] TDAP 2017-10-16 00:00:00 Completed [facility] Influenza Virus Vaccine Quad IM 3+ YRS 2017-10-16 00:00:00 Completed [facility] TDAP 2017-10-16 00:00:00 Completed [facility] Influenza Virus Vaccine Quad IM 3+ YRS 2017-10-16 00:00:00 Completed [facility] TDAP 2017-10-16 00:00:00 Completed [facility] Influenza Virus Vaccine Quad IM 3+ YRS 2017-10-16 00:00:00 Completed [facility] Tdap 2017-10-16 00:00:00 Completed [facility] Influenza Virus Vaccine Quad IM 3+ YRS 2017-10-16 00:00:00 Completed [facility] TDAP 2017-10-16 00:00:00 Completed [facility] Influenza Virus Vaccine Quad IM 3+ YRS 2017-10-16 00:00:00 Completed [facility] TDAP 2017-10-16 00:00:00 Completed [facility] Influenza Virus Vaccine Quad IM 3+ YRS 2017-10-16 00:00:00 Completed [facility] TDAP 2017-10-16 00:00:00 Completed [facility] Influenza Virus Vaccine Quad IM 3+ YRS 2017-10-16 00:00:00 Completed [facility] TDAP 2017-10-16 00:00:00 Completed [facility] Influenza Virus Vaccine Quad IM 3+ YRS 2017-10-16 00:00:00 Completed [facility] Tdap 2017-10-16 00:00:00 Completed [facility] TDAP 2017-10-16 00:00:00 Completed [facility] Influenza Virus Vaccine Quad IM 3+ YRS 2017-10-16 00:00:00 Completed [facility] Influenza Virus Vaccine Quad IM 3+ YRS 2017-10-16 00:00:00 Completed [facility] TDAP 2017-10-16 00:00:00 Completed [facility] Influenza Virus Vaccine Quad IM 3+ YRS 2017-10-16 00:00:00 Completed [facility] TDAP 2017-10-16 00:00:00 Completed [facility] Influenza Virus Vaccine Quad IM 3+ YRS 2017-10-16 00:00:00 Completed [facility] TDAP 2016-01-18 00:00:00 Completed [facility] TDAP 2016-01-18 00:00:00 Completed [facility] TDAP 2016-01-18 00:00:00 Completed [facility] TDAP 2016-01-18 00:00:00 Completed [facility] TDAP 2016-01-18 00:00:00 Completed [facility] TDAP 2016-01-18 00:00:00 Completed [facility] TDAP 2016-01-18 00:00:00 Completed [facility] Tdap 2016-01-18 00:00:00 Completed [facility] TDAP 2016-01-18 00:00:00 Completed [facility] TDAP 2016-01-18 00:00:00 Completed [facility] Tdap 2016-01-18 00:00:00 Completed [facility] Tdap 2016-01-18 00:00:00 Completed [facility] Tdap 2016-01-18 00:00:00 Completed [facility] Tdap 2016-01-18 00:00:00 Completed [facility] Tdap 2016-01-18 00:00:00 Completed [facility] TDAP 2016-01-18 00:00:00 Completed [facility] TDAP 2016-01-18 00:00:00 Completed [facility] TDAP 2016-01-18 00:00:00 Completed [facility] TDAP 2016-01-18 00:00:00 Completed [facility] Tdap 2016-01-18 00:00:00 Completed [facility] TDAP 2016-01-18 00:00:00 Completed [facility] TDAP 2016-01-18 00:00:00 Completed [facility] TDAP 2016-01-18 00:00:00 Completed [facility] TDAP 2016-01-18 00:00:00 Completed [facility] TDAP 2016-01-18 00:00:00 Completed [facility] Tdap 2016-01-18 00:00:00 Completed [facility] TDAP 2016-01-18 00:00:00 Completed [facility] TDAP 2016-01-18 00:00:00 Completed [facility] TDAP 2016-01-18 00:00:00 Completed [facility] TDAP 2016-01-18 00:00:00 Completed [facility] TDAP 2016-01-18 00:00:00 Completed [facility] TDAP 2016-01-18 00:00:00 Completed [facility] TDAP 2016-01-18 00:00:00 Completed [facility] TDAP 2016-01-18 00:00:00 Completed [facility] TDAP 2016-01-18 00:00:00 Completed [facility] Tdap 2016-01-18 00:00:00 Completed [facility] TDAP 2016-01-18 00:00:00 Completed [facility] TDAP 2016-01-18 00:00:00 Completed [facility] TDAP 2016-01-18 00:00:00 Completed [facility] TDAP 2016-01-18 00:00:00 Completed [facility] TDAP 2016-01-18 00:00:00 Completed [facility] TDAP 2016-01-18 00:00:00 Completed [facility] TDAP 2016-01-18 00:00:00 Completed [facility] Tdap 2016-01-18 00:00:00 Completed [facility] TDAP 2016-01-18 00:00:00 Completed [facility] TDAP 2016-01-18 00:00:00 Completed [facility] TDAP 2016-01-18 00:00:00 Completed [facility] TDAP 2016-01-18 00:00:00 Completed [facility] TDAP 2016-01-18 00:00:00 Completed [facility] Tdap 2016-01-18 00:00:00 Completed [facility] TDAP 2016-01-18 00:00:00 Completed [facility] TDAP 2016-01-18 00:00:00 Completed [facility] TDAP 2016-01-18 00:00:00 Completed [facility] TDAP 2016-01-18 00:00:00 Completed [facility] Tdap 2016-01-18 00:00:00 Completed [facility] TDAP 2016-01-18 00:00:00 Completed [facility] TDAP 2016-01-18 00:00:00 Completed [facility] TDAP 2016-01-18 00:00:00 Completed [facility] TDAP 2016-01-18 00:00:00 Completed [facility] TDAP 2016-01-18 00:00:00 Completed [facility] Tdap 2016-01-18 00:00:00 Completed [facility] TDAP 2016-01-18 00:00:00 Completed [facility] TDAP 2016-01-18 00:00:00 Completed [facility] TDAP 2016-01-18 00:00:00 Completed [facility] TDAP 2016-01-18 00:00:00 Completed [facility] TDAP 2016-01-18 00:00:00 Completed [facility] TDAP 2016-01-18 00:00:00 Completed [facility] TDAP 2016-01-18 00:00:00 Completed [facility] Tdap 2016-01-18 00:00:00 Completed [facility] TDAP 2014-05-18 00:00:00 Completed [facility] Tdap 2014-05-18 00:00:00 Completed [facility] TDAP 2014-05-18 00:00:00 Completed [facility] TDAP 2014-05-18 00:00:00 Completed [facility] TDAP 2014-05-18 00:00:00 Completed [facility] TDAP 2014-05-18 00:00:00 Completed [facility] Tdap 2014-05-18 00:00:00 Completed [facility] TDAP 2014-05-18 00:00:00 Completed [facility] TDAP 2014-05-18 00:00:00 Completed [facility] TDAP 2014-05-18 00:00:00 Completed [facility] TDAP 2014-05-18 00:00:00 Completed [facility] TDAP 2014-05-18 00:00:00 Completed [facility] TDAP 2014-05-18 00:00:00 Completed [facility] TDAP 2014-05-18 00:00:00 Completed [facility] TDAP 2014-05-18 00:00:00 Completed [facility] Tdap 2014-05-18 00:00:00 Completed [facility] TDAP 2014-05-18 00:00:00 Completed [facility] TDAP 2014-05-18 00:00:00 Completed [facility] TDAP 2014-05-18 00:00:00 Completed [facility] TDAP 2014-05-18 00:00:00 Completed [facility] TDAP 2014-05-18 00:00:00 Completed [facility] TDAP 2014-05-18 00:00:00 Completed [facility] TDAP 2014-05-18 00:00:00 Completed [facility] Tdap 2014-05-18 00:00:00 Completed [facility] TDAP 2014-05-18 00:00:00 Completed [facility] TDAP 2014-05-18 00:00:00 Completed [facility] Tdap 2014-05-18 00:00:00 Completed [facility] Tdap 2014-05-18 00:00:00 Completed [facility] Tdap 2014-05-18 00:00:00 Completed [facility] Tdap 2014-05-18 00:00:00 Completed [facility] Tdap 2014-05-18 00:00:00 Completed [facility] Tdap 2014-05-18 00:00:00 Completed [facility] TDAP 2014-05-18 00:00:00 Completed [facility] TDAP 2014-05-18 00:00:00 Completed [facility] TDAP 2014-05-18 00:00:00 Completed [facility] TDAP 2014-05-18 00:00:00 Completed [facility] Tdap 2014-05-18 00:00:00 Completed [facility] TDAP 2014-05-18 00:00:00 Completed [facility] TDAP 2014-05-18 00:00:00 Completed [facility] TDAP 2014-05-18 00:00:00 Completed [facility] TDAP 2014-05-18 00:00:00 Completed [facility] Tdap 2014-05-18 00:00:00 Completed [facility] TDAP 2014-05-18 00:00:00 Completed [facility] TDAP 2014-05-18 00:00:00 Completed [facility] TDAP 2014-05-18 00:00:00 Completed [facility] TDAP 2014-05-18 00:00:00 Completed [facility] TDAP 2014-05-18 00:00:00 Completed [facility] TDAP 2014-05-18 00:00:00 Completed [facility] TDAP 2014-05-18 00:00:00 Completed [facility] TDAP 2014-05-18 00:00:00 Completed [facility] TDAP 2014-05-18 00:00:00 Completed [facility] Tdap 2014-05-18 00:00:00 Completed [facility] TDAP 2014-05-18 00:00:00 Completed [facility] TDAP 2014-05-18 00:00:00 Completed [facility] TDAP 2014-05-18 00:00:00 Completed [facility] TDAP 2014-05-18 00:00:00 Completed [facility] TDAP 2014-05-18 00:00:00 Completed [facility] TDAP 2014-05-18 00:00:00 Completed [facility] TDAP 2014-05-18 00:00:00 Completed [facility] TDAP 2014-05-18 00:00:00 Completed [facility] Tdap 2014-05-18 00:00:00 Completed [facility] TDAP 2014-05-18 00:00:00 Completed [facility] TDAP 2014-05-18 00:00:00 Completed [facility] TDAP 2014-05-18 00:00:00 Completed [facility] TDAP 2014-05-18 00:00:00 Completed [facility] TDAP 2014-05-18 00:00:00 Completed [facility] Tdap 2014-05-18 00:00:00 Completed [facility] TDAP 2014-05-18 00:00:00 Completed [facility] TDAP 2014-05-18 00:00:00 Completed [facility] TDAP 2014-05-18 00:00:00 Completed [facility] Pneumococcal Polysaccharide, PPSV23 (PNEUMOVAX) 2008-05-11 00:00:00 Completed [facility] Pneumococcal Polysaccharide, PPSV23 (PNEUMOVAX) 2008-05-11 00:00:00 Completed [facility] Pneumococcal Polysaccharide, PPSV23 (PNEUMOVAX) 2008-05-11 00:00:00 Completed [facility] Pneumococcal Polysaccharide, PPSV23 (PNEUMOVAX) 2008-05-11 00:00:00 Completed [facility] Pneumococcal Polysaccharide, PPSV23 (PNEUMOVAX) 2008-05-11 00:00:00 Completed [facility] Pneumococcal Polysaccharide, PPSV23 (PNEUMOVAX) 2008-05-11 00:00:00 Completed [facility] Pneumococcal Polysaccharide, PPSV23 (PNEUMOVAX) 2008-05-11 00:00:00 Completed [facility] Pneumococcal Polysaccharide, PPSV23 (PNEUMOVAX) 2008-05-11 00:00:00 Completed [facility] Pneumococcal Polysaccharide, PPSV23 (PNEUMOVAX) 2008-05-11 00:00:00 Completed [facility] Pneumococcal Polysaccharide, PPSV23 (PNEUMOVAX) 2008-05-11 00:00:00 Completed [facility] Pneumococcal Polysaccharide, PPSV23 (PNEUMOVAX) 2008-05-11 00:00:00 Completed [facility] Pneumococcal Polysaccharide, PPSV23 (PNEUMOVAX) 2008-05-11 00:00:00 Completed [facility] Pneumococcal Polysaccharide, PPSV23 (PNEUMOVAX) 2008-05-11 00:00:00 Completed [facility] Pneumococcal Polysaccharide, PPSV23 (PNEUMOVAX) 2008-05-11 00:00:00 Completed [facility] Pneumococcal Polysaccharide, PPSV23 (PNEUMOVAX) 2008-05-11 00:00:00 Completed [facility] Pneumococcal Polysaccharide, PPSV23 (PNEUMOVAX) 2008-05-11 00:00:00 Completed [facility] Pneumococcal Polysaccharide, PPSV23 (PNEUMOVAX) 2008-05-11 00:00:00 Completed [facility] Pneumococcal Polysaccharide, PPSV23 (PNEUMOVAX) 2008-05-11 00:00:00 Completed [facility] Pneumococcal Polysaccharide, PPSV23 (PNEUMOVAX) 2008-05-11 00:00:00 Completed [facility] Pneumococcal Polysaccharide, PPSV23 (PNEUMOVAX) 2008-05-11 00:00:00 Completed [facility] Pneumococcal Polysaccharide, PPSV23 (PNEUMOVAX) 2008-05-11 00:00:00 Completed [facility] Pneumococcal Polysaccharide, PPSV23 (PNEUMOVAX) 2008-05-11 00:00:00 Completed [facility] Pneumococcal Polysaccharide, PPSV23 (PNEUMOVAX) 2008-05-11 00:00:00 Completed [facility] Pneumococcal Polysaccharide, PPSV23 (PNEUMOVAX) 2008-05-11 00:00:00 Completed [facility] Pneumococcal Polysaccharide, PPSV23 (PNEUMOVAX) 2008-05-11 00:00:00 Completed [facility] Pneumococcal Polysaccharide, PPSV23 (PNEUMOVAX) 2008-05-11 00:00:00 Completed [facility] Pneumococcal Polysaccharide, PPSV23 (PNEUMOVAX) 2008-05-11 00:00:00 Completed [facility] Pneumococcal Polysaccharide, PPSV23 (PNEUMOVAX) 2008-05-11 00:00:00 Completed [facility] Pneumococcal Polysaccharide, PPSV23 (PNEUMOVAX) 2008-05-11 00:00:00 Completed [facility] Pneumococcal Polysaccharide, PPSV23 (PNEUMOVAX) 2008-05-11 00:00:00 Completed [facility] Pneumococcal Polysaccharide, PPSV23 (PNEUMOVAX) 2008-05-11 00:00:00 Completed [facility] Pneumococcal Polysaccharide, PPSV23 (PNEUMOVAX) 2008-05-11 00:00:00 Completed [facility] Pneumococcal Polysaccharide, PPSV23 (PNEUMOVAX) 2008-05-11 00:00:00 Completed [facility] Pneumococcal Polysaccharide, PPSV23 (PNEUMOVAX) 2008-05-11 00:00:00 Completed [facility] Pneumococcal Polysaccharide, PPSV23 (PNEUMOVAX) 2008-05-11 00:00:00 Completed [facility] Pneumococcal Polysaccharide, PPSV23 (PNEUMOVAX) 2008-05-11 00:00:00 Completed [facility] Pneumococcal Polysaccharide, PPSV23 (PNEUMOVAX) 2008-05-11 00:00:00 Completed [facility] Pneumococcal Polysaccharide, PPSV23 (PNEUMOVAX) 2008-05-11 00:00:00 Completed [facility] Pneumococcal Polysaccharide, PPSV23 (PNEUMOVAX) 2008-05-11 00:00:00 Completed [facility] Pneumococcal Polysaccharide, PPSV23 (PNEUMOVAX) 2008-05-11 00:00:00 Completed [facility] Pneumococcal Polysaccharide, PPSV23 (PNEUMOVAX) 2008-05-11 00:00:00 Completed [facility] Pneumococcal Polysaccharide, PPSV23 (PNEUMOVAX) 2008-05-11 00:00:00 Completed [facility] Pneumococcal Polysaccharide, PPSV23 (PNEUMOVAX) 2008-05-11 00:00:00 Completed [facility] Pneumococcal Polysaccharide, PPSV23 (PNEUMOVAX) 2008-05-11 00:00:00 Completed [facility] Pneumococcal Polysaccharide, PPSV23 (PNEUMOVAX) 2008-05-11 00:00:00 Completed [facility] Pneumococcal Polysaccharide, PPSV23 (PNEUMOVAX) 2008-05-11 00:00:00 Completed [facility] Pneumococcal Polysaccharide, PPSV23 (PNEUMOVAX) 2008-05-11 00:00:00 Completed [facility] Pneumococcal Polysaccharide, PPSV23 (PNEUMOVAX) 2008-05-11 00:00:00 Completed [facility] Pneumococcal Polysaccharide, PPSV23 (PNEUMOVAX) 2008-05-11 00:00:00 Completed [facility] Pneumococcal Polysaccharide, PPSV23 (PNEUMOVAX) 2008-05-11 00:00:00 Completed [facility] Pneumococcal Polysaccharide, PPSV23 (PNEUMOVAX) 2008-05-11 00:00:00 Completed [facility] Pneumococcal Polysaccharide, PPSV23 (PNEUMOVAX) 2008-05-11 00:00:00 Completed [facility] Pneumococcal Polysaccharide, PPSV23 (PNEUMOVAX) 2008-05-11 00:00:00 Completed [facility] Pneumococcal Polysaccharide, PPSV23 (PNEUMOVAX) 2008-05-11 00:00:00 Completed [facility] Pneumococcal Polysaccharide, PPSV23 (PNEUMOVAX) 2008-05-11 00:00:00 Completed [facility] Pneumococcal Polysaccharide, PPSV23 (PNEUMOVAX) 2008-05-11 00:00:00 Completed [facility] Pneumococcal Polysaccharide, PPSV23 (PNEUMOVAX) 2008-05-11 00:00:00 Completed [facility] Pneumococcal Polysaccharide, PPSV23 (PNEUMOVAX) 2008-05-11 00:00:00 Completed [facility] Pneumococcal Polysaccharide, PPSV23 (PNEUMOVAX) 2008-05-11 00:00:00 Completed [facility] Pneumococcal Polysaccharide, PPSV23 (PNEUMOVAX) 2008-05-11 00:00:00 Completed [facility] Pneumococcal Polysaccharide, PPSV23 (PNEUMOVAX) 2008-05-11 00:00:00 Completed [facility] Pneumococcal Polysaccharide, PPSV23 (PNEUMOVAX) 2008-05-11 00:00:00 Completed [facility] Pneumococcal Polysaccharide, PPSV23 (PNEUMOVAX) 2008-05-11 00:00:00 Completed [facility] Pneumococcal Polysaccharide, PPSV23 (PNEUMOVAX) 2008-05-11 00:00:00 Completed [facility] Pneumococcal Polysaccharide, PPSV23 (PNEUMOVAX) 2008-05-11 00:00:00 Completed [facility] Pneumococcal Polysaccharide, PPSV23 (PNEUMOVAX) 2008-05-11 00:00:00 Completed [facility] Pneumococcal Polysaccharide, PPSV23 (PNEUMOVAX) 2008-05-11 00:00:00 Completed [facility] Pneumococcal Polysaccharide, PPSV23 (PNEUMOVAX) 2008-05-11 00:00:00 Completed [facility] Pneumococcal Polysaccharide, PPSV23 (PNEUMOVAX) 2008-05-11 00:00:00 Completed [facility] Pneumococcal Polysaccharide, PPSV23 (PNEUMOVAX) 2008-05-11 00:00:00 Completed [facility] Pneumococcal Polysaccharide, PPSV23 (PNEUMOVAX) Unknown Completed [facility] TDAP Unknown Completed [facility] TDAP Unknown Completed [facility] TDAP Unknown Completed [facility] Influenza Virus Vaccine Quad IM 3+ YRS Unknown Completed [facility] HPV9 Unknown Completed [facility] Pneumococcal Polysaccharide, PPSV23 (PNEUMOVAX) Unknown Completed [facility] TDAP Unknown Completed [facility] TDAP Unknown Completed [facility] TDAP Unknown Completed [facility] Influenza Virus Vaccine Quad IM 3+ YRS Unknown Completed [facility] Pneumococcal Polysaccharide, PPSV23 (PNEUMOVAX) Unknown Completed [facility] TDAP Unknown Completed [facility] TDAP Unknown Completed [facility] TDAP Unknown Completed [facility] Influenza Virus Vaccine Quad IM 3+ YRS Unknown Completed [facility] Pneumococcal Polysaccharide, PPSV23 (PNEUMOVAX) Unknown Completed [facility] TDAP Unknown Completed [facility] TDAP Unknown Completed [facility] TDAP Unknown Completed [facility] Influenza Virus Vaccine Quad IM 3+ YRS Unknown Completed [facility] Pneumococcal Polysaccharide, PPSV23 (PNEUMOVAX) Unknown Completed [facility] TDAP Unknown Completed [facility] TDAP Unknown Completed [facility] TDAP Unknown Completed [facility] Influenza Virus Vaccine Quad IM 3+ YRS Unknown Completed [facility] Pneumococcal Polysaccharide, PPSV23 (PNEUMOVAX) Unknown [facility]pleted [facility] TDAP Unknown Completed [facility] TDAP Unknown Completed [facility] TDAP Unknown Completed [facility] Influenza Virus Vaccine Quad IM 3+ YRS Unknown Completed [facility] Pneumococcal Polysaccharide, PPSV23 (PNEUMOVAX) Unknown Completed [facility] TDAP Unknown Completed [facility] TDAP Unknown Completed [facility] TDAP Unknown Completed [facility] Influenza Virus Vaccine Quad IM 3+ YRS Unknown Completed [facility] Pneumococcal Polysaccharide, PPSV23 (PNEUMOVAX) [facility] Completed [facility] TDAP Unknown Completed [facility] TDAP Unknown Completed [facility] Influenza Virus Vaccine Quad IM 3+ YRS Unknown Completed [facility] Pneumococcal Polysaccharide, PPSV23 (PNEUMOVAX) Unknown [facility] TDAP Unknown Completed [facility] TDAP Unknown Completed [facility] TDAP Unknown Completed [facility] Influenza Virus Vaccine Quad IM 3+ YRS Unknown Completed [facility] Pneumococcal Polysaccharide, PPSV23 (PNEUMOVAX) Unknown Completed [facility] TDAP Unknown Completed [facility] TDAP Unknown Completed [facility] TDAP Unknown Completed [facility] Influenza Virus Vaccine Quad IM 3+ YRS Unknown Completed [facility] Pneumococcal Polysaccharide, PPSV23 (PNEUMOVAX) Unknown Completed [facility] TDAP Unknown Completed [facility] TDAP Unknown Completed [facility] TDAP Unknown Completed [facility] Influenza Virus Vaccine Quad IM 3+ YRS Unknown Completed [facility] Pneumococcal Polysaccharide, PPSV23 (PNEUMOVAX) Unknown [facility] TDAP Unknown Completed [facility] TDAP Unknown Completed [facility] TDAP Unknown Completed [facility] Influenza Virus Vaccine Quad IM 3+ YRS Unknown Completed [facility] Pneumococcal Polysaccharide, PPSV23 (PNEUMOVAX) Unknown Completed [facility] TDAP Unknown Completed [facility] TDAP Unknown Completed [facility] TDAP Unknown Completed [facility] Influenza Virus Vaccine Quad IM 3+ YRS Unknown Completed [facility] Pneumococcal Polysaccharide, PPSV23 (PNEUMOVAX) Unknown [facility] TDAP Unknown Completed [facility] TDAP Unknown Completed [facility] TDAP Unknown Completed [facility] Influenza Virus Vaccine Quad IM 3+ YRS Unknown Completed [facility] HPV9 Unknown Completed [facility] Pneumococcal Polysaccharide, PPSV23 (PNEUMOVAX) Unknown Completed [facility] TDAP Unknown Completed [facility] TDAP Unknown Completed [facility] TDAP Unknown Completed [facility] Influenza Virus Vaccine Quad IM 3+ YRS Unknown Completed [facility] HPV9 Unknown Completed [facility] Pneumococcal Polysaccharide, PPSV23 (PNEUMOVAX) Unknown [facility] TDAP Unknown Completed [facility] TDAP Unknown Completed [facility] TDAP Unknown Completed [facility] Influenza Virus Vaccine Quad IM 3+ YRS Unknown Completed [facility] HPV9 Unknown Completed [facility] Pneumococcal Polysaccharide, PPSV23 (PNEUMOVAX) Unknown Completed [facility] TDAP Unknown Completed [facility] TDAP Unknown Completed [facility] TDAP Unknown Completed [facility] Influenza Virus Vaccine Quad IM 3+ YRS Unknown Completed [facility] HPV9 Unknown Completed [facility] Pneumococcal Polysaccharide, PPSV23 (PNEUMOVAX) Unknown Completed [facility] TDAP Unknown Completed [facility] TDAP Unknown Completed [facility] TDAP Unknown Completed [facility] Influenza Virus Vaccine Quad IM 3+ YRS Unknown Completed [facility] HPV9 Unknown Completed [facility] Pneumococcal Polysaccharide, PPSV23 (PNEUMOVAX) Unknown Completed [facility] TDAP Unknown Completed [facility] TDAP Unknown Completed [facility] TDAP Unknown Completed [facility] Influenza Virus Vaccine Quad IM 3+ YRS Unknown Completed [facility] HPV9 Unknown Completed [facility] Pneumococcal Polysaccharide, PPSV23 (PNEUMOVAX) Unknown Completed [facility] TDAP Unknown Completed [facility] TDAP Unknown Completed [facility] TDAP Unknown Completed [facility] Influenza Virus Vaccine Quad IM 3+ YRS Unknown Completed [facility] HPV9 Unknown Completed [facility] Pneumococcal Polysaccharide, PPSV23 (PNEUMOVAX) Unknown Completed [facility] TDAP Unknown Completed [facility] TDAP Unknown Completed [facility] TDAP Unknown Completed [facility] Influenza Virus Vaccine Quad IM 3+ YRS Unknown Completed [facility] HPV9 Unknown Completed [facility] Pneumococcal Polysaccharide, PPSV23 (PNEUMOVAX) Unknown Completed [facility] TDAP Unknown Completed [facility] TDAP Unknown Completed [facility] TDAP Unknown Completed [facility] Influenza Virus Vaccine Quad IM 3+ YRS Unknown Completed [facility] HPV9 Unknown Completed [facility] Pneumococcal Polysaccharide, PPSV23 (PNEUMOVAX) Unknown Completed [facility] TDAP Unknown Completed [facility] TDAP Unknown Completed [facility] TDAP Unknown Completed [facility] Influenza Virus Vaccine Quad IM 3+ YRS Unknown Completed [facility] HPV9 Unknown Completed [facility] Vital Signs Vital Name Observation Time Observation Value Comments S ource Systolic blood pressure 2024-04-05 16:16:00 137 mm[Hg] [facility] Diastolic blood pressure 2024-04-05 16:16:00 88 mm[Hg] [facility] Heart rate 2024-04-05 16:15:00 82 /min [facility] Body [facility] 2024-04-05 16:15:00 37 Zainab [facility] Respiratory rate 2024-04-05 16:15:00 16 /min [facility] Body height 2024-04-05 16:15:00 154.9 cm [facility] Body weight 2024-04-05 16:15:00 125.646 kg [facility] BMI 2024-04-05 16:15:00 52.34 kg/m2 [facility] Oxygen saturation in Arterial blood by Pulse oximetry 2024-04-05 16:15:00 97 /min [facility] Systolic blood pressure 2024-02-02 15:44:00 114 mm[Hg] [facility] Diastolic blood pressure 2024-02-02 15:44:00 63 mm[Hg] [facility] Heart rate 2024-02-02 15:44:00 70 /min [facility] Body temperature 2024-02-02 15:44:00 37.17 Zainab [facility] Respiratory rate 2024-02-02 15:44:00 17 /min [facility] Body weight 2024-02-02 15:44:00 123.378 kg [facility] BMI 2024-02-02 15:44:00 51.39 kg/m2 [facility] Oxygen saturation in Arterial blood by Pulse oximetry 2024-02-02 15:44:00 97 /min [facility] Systolic blood pressure 2023-06-28 23:34:00 141 mm[Hg] [facility] Diastolic blood pressure 2023-06-28 23:34:00 86 mm[Hg] [facility] Heart rate 2023-06-28 23:33:00 107 /min [facility] Body temperature 2023-06-28 23:33:00 36.83 Zainab [facility] Respiratory rate 2023-06-28 23:33:00 18 /min [facility] Body height 2023-06-28 23:33:00 154.9 cm [facility] Body weight 2023-06-28 23:33:00 121.972 kg [facility] BMI 2023-06-28 23:33:00 50.81 kg/m2 [facility] Oxygen saturation in Arterial blood by Pulse oximetry 2023-06-28 23:33:00 98 /min [facility] Systolic blood pressure 2023-03-07 16:14:00 153 mm[Hg] [facility] Diastolic blood pressure 2023-03-07 16:14:00 89 mm[Hg] [facility] Heart rate 2023-03-07 16:13:00 79 /min [facility] Body temperature 2023-03-07 16:13:00 36.44 Zainab [facility] Respiratory rate 2023-03-07 16:13:00 16 /min [facility] Body weight 2023-03-07 16:13:00 123.378 kg [facility] BMI 2023-03-07 16:13:00 51.39 kg/m2 [facility] Oxygen saturation in Arterial blood by Pulse oximetry 2023-03-07 16:13:00 98 /min [facility] Systolic blood pressure 2023-02-21 13:28:00 128 mm[Hg] [facility] Diastolic blood pressure 2023-02-21 13:28:00 75 mm[Hg] [facility] Heart rate 2023-02-21 13:28:00 65 /min [facility] Body temperature 2023-02-21 13:28:00 36 Zainab [facility] Respiratory rate 2023-02-21 13:28:00 18 /min [facility] Body height 2023-02-21 13:28:00 154.9 cm [facility] Body weight 2023-02-21 13:28:00 122.244 kg [facility] BMI 2023-02-21 13:28:00 50.92 kg/m2 [facility] Systolic blood pressure 2022-11-24 20:34:00 155 mm[Hg] [facility] Diastolic blood pressure 2022-11-24 20:34:00 87 mm[Hg] [facility] Heart rate 2022-11-24 20:22:00 73 /min [facility] Body temperature 2022-11-24 20:22:00 36.67 Zainab [facility] Respiratory rate 2022-11-24 20:22:00 20 /min [facility] Body height 2022-11-24 20:22:00 154.9 cm [facility] Body weight 2022-11-24 20:22:00 123.605 kg [facility] BMI 2022-11-24 20:22:00 51.49 kg/m2 [facility] Oxygen saturation in Arterial blood by Pulse oximetry 2022-11-24 20:22:00 98 /min [facility] Systolic blood pressure 2022-07-17 15:56:00 137 mm[Hg] [facility] Diastolic blood pressure 2022-07-17 15:56:00 79 mm[Hg] [facility] Heart rate 2022-07-17 15:56:00 73 /min [facility] Body temperature 2022-07-17 15:56:00 37 Zainab [facility] Respiratory rate 2022-07-17 15:56:00 18 /min [facility] Body height 2022-07-17 15:56:00 154.9 cm [facility] Body weight 2022-07-17 15:56:00 123.242 kg [facility] BMI 2022-07-17 15:56:00 51.34 kg/m2 [facility] Oxygen saturation in Arterial blood by Pulse oximetry 2022-07-17 15:56:00 95 /min [facility] Systolic blood pressure 2022-06-13 00:43:00 152 mm[Hg] [facility] Diastolic blood pressure 2022-06-13 00:43:00 98 mm[Hg] [facility] Heart rate 2022-06-13 00:41:00 90 /min [facility] Body temperature 2022-06-13 00:41:00 37.17 Zainab [facility] Respiratory rate 2022-06-13 00:41:00 16 /min [facility] Body height 2022-06-13 00:41:00 154.9 cm [facility] Body weight 2022-06-13 00:41:00 126.508 kg [facility] BMI 2022-06-13 00:41:00 52.70 kg/m2 [facility] Oxygen saturation in Arterial blood by Pulse oximetry 2022-06-13 00:41:00 97 /min [facility] Systolic blood pressure 2022-04-14 18:03:00 126 mm[Hg] [facility] Diastolic blood pressure 2022-04-14 18:03:00 87 mm[Hg] [facility] Heart rate 2022-04-14 18:03:00 83 /min [facility] Body temperature 2022-04-14 18:03:00 36.89 Zainab [facility] Respiratory rate 2022-04-14 18:03:00 18 /min [facility] Body height 2022-04-14 18:03:00 154.9 cm [facility] Body weight 2022-04-14 18:03:00 126.508 kg [facility] BMI 2022-04-14 18:03:00 52.70 kg/m2 [facility] Oxygen saturation in Arterial blood by Pulse oximetry 2022-04-14 18:03:00 97 /min [facility] Body weight 2022-04-03 18:36:00 126.554 kg [facility] BMI 2022-04-03 18:36:00 52.72 kg/m2 [facility] Oxygen saturation in Arterial blood by Pulse oximetry 2022-04-03 18:36:00 97 /min [facility] Systolic blood pressure 2022-04-03 18:36:00 146 mm[Hg] [facility] Diastolic blood pressure 2022-04-03 18:36:00 86 mm[Hg] [facility] Heart rate 2022-04-03 18:36:00 84 /min [facility] Body temperature 2022-04-03 18:36:00 37.11 Zainab [facility] Respiratory rate 2022-04-03 18:36:00 18 /min [facility] Body height 2022-04-03 18:36:00 154.9 cm [facility] Systolic blood pressure 2022-03-19 14:01:00 154 mm[Hg] [facility] Diastolic blood pressure 2022-03-19 14:01:00 82 mm[Hg] [facility] Heart rate 2022-03-19 14:01:00 61 /min [facility] Body temperature 2022-03-19 14:01:00 36.83 Zainab [facility] Respiratory rate 2022-03-19 14:01:00 18 /min [facility] Body height 2022-03-19 14:01:00 154.9 cm [facility] Body weight 2022-03-19 14:01:00 124.739 kg [facility] BMI 2022-03-19 14:01:00 51.96 kg/m2 [facility] Oxygen saturation in Arterial blood by Pulse oximetry 2022-03-19 14:01:00 100 /min [facility] Systolic blood pressure 2021-10-01 18:26:00 111 mm[Hg] [facility] Diastolic blood pressure 2021-10-01 18:26:00 76 mm[Hg] [facility] Heart rate 2021-10-01 18:26:00 103 /min [facility] Body temperature 2021-10-01 18:26:00 36.89 Zainab [facility] Respiratory rate 2021-10-01 18:26:00 16 /min [facility] Body height 2021-10-01 18:26:00 154.9 cm [facility] Body weight 2021-10-01 18:26:00 129.048 kg [facility] BMI 2021-10-01 18:26:00 53.76 kg/m2 [facility] Oxygen saturation in Arterial blood by Pulse oximetry 2021-10-01 18:26:00 100 /min [facility] Heart rate 2020-08-04 21:50:00 74 /min [facility] Respiratory rate 2020-08-04 21:50:00 23 /min [facility] Oxygen saturation in Arterial blood by Pulse oximetry 2020-08-04 21:50:00 95 /min [facility] Systolic blood pressure 2020-08-04 21:35:00 106 mm[Hg] [facility] Diastolic blood pressure 2020-08-04 21:35:00 63 mm[Hg] [facility] Body temperature 2020-08-04 20:49:00 36.5 Zainab [facility] Body height 2020-08-04 18:08:00 154.9 cm [facility] Body weight 2020-08-04 18:08:00 124.739 kg [facility] BMI 2020-08-04 18:08:00 51.96 kg/m2 [facility] Heart rate 2020-08-04 21:50:00 74 /[facility] 2020-08-04 21:50:00 23 /min [facility] Oxygen saturation in Arterial blood by Pulse oximetry 2020-08-04 21:50:00 95 /min [facility] Systolic blood pressure 2020-08-04 21:35:00 106 mm[Hg] [facility] Diastolic blood pressure 2020-08-04 21:35:00 63 mm[Hg] [facility] Body temperature 2020-08-04 20:49:00 36.5 Zainab [facility] Body height 2020-08-04 18:08:00 154.9 [facility] 2020-08-04 18:08:00 124.739 kg [facility] BMI 2020-08-04 18:08:00 51.96 kg/m2 [facility] Systolic blood pressure 2020-06-05 18:07:00 123 mm[Hg] [facility] Diastolic blood pressure 2020-06-05 18:07:00 75 mm[Hg] [facility] Heart rate 2020-06-05 18:07:00 70 /min [facility] Body temperature 2020-06-05 18:07:00 36.72 Zainab [facility] Respiratory rate 2020-06-05 18:07:00 16 /min [facility] Body height 2020-06-05 18:07:00 156.2 cm [facility] Body weight 2020-06-05 18:07:00 129.91 kg [facility] BMI 2020-06-05 18:07:00 53.24 kg/m2 [facility] Body temperature 2020-05-31 20:10:00 36 Zainab [facility] Body weight 2020-05-31 20:10:00 128.822 kg [facility] BMI 2020-05-31 20:10:00 53.66 kg/m2 [facility] Systolic blood pressure 2020-04-06 18:35:00 138 mm[Hg] [facility] Diastolic blood pressure 2020-04-06 18:35:00 83 mm[Hg] [facility] Heart rate 2020-04-06 18:35:00 65 /min [facility] Respiratory rate 2020-04-06 18:35:00 18 /min [facility] Body height 2020-04-06 18:35:00 154.9 cm [facility] Body weight 2020-04-06 18:35:00 122.018 kg [facility] BMI 2020-04-06 18:35:00 50.83 kg/m2 [facility] Systolic blood pressure 2020-03-16 19:12:00 120 mm[Hg] [facility] Diastolic blood pressure 2020-03-16 19:12:00 80 mm[Hg] [facility] Body height 2020-03-16 19:12:00 154.9 cm [facility] Body weight 2020-03-16 19:12:00 122.018 kg [facility] BMI 2020-03-16 19:12:00 50.83 kg/m2 [facility] Body height 2019-12-23 16:00:00 154.9 cm [facility] Body weight 2019-12-23 16:00:00 122.018 kg [facility] BMI 2019-12-23 16:00:00 50.83 kg/m2 [facility] Procedures Procedure Date / Time Performed Performing Clinician Source POCT SARS-COV-2 ANTIGEN (BINAX NOW) 2024-04-05 16:28:00 Theresa Trent [facility] POCT MOLECULAR FLU 2024-04-05 16:16:00 Unknown, Attend [facility] POCT MOLECULAR STREP 2024-04-05 16:13:00 Unknown, Attannie goncalves [facility] POCT MOLECULAR STREP 2024-02-02 15:55:00 Unknown, Attannie goncalves [facility] POCT SARS-COV-2 ANTIGEN (BINAX NOW) 2023-06-28 23:38:00 Cj Tierney [facility] POCT MOLECULAR STREP 2023-03-07 16:19:00 Unknown, Jayson goncalves [facility] URINE CULTURE 2023-02-21 14:14:00 Mirta Correa [facility] GC & CHLAMYDIA AMPLIFIED ASSAY 2023-02-21 14:14:00 Mirta Correa [facility] HIV 1/2 AG-AB WITH REFLEX 2023-02-21 14:14:00 Mirta Correa [facility] HIGH RISK HPV-THIN PREP 2023-02-21 14:14:00 Mirta Correa [facility] TRICHOMONAS AMPLIFIED ASSAY 2023-02-21 14:14:00 Mirta Correa [facility] PAP SMEAR-LIQUID BASED-CP 2023-02-21 14:14:00 Mirta Correa [facility] SYPHILIS IGG/IGM 2023-02-21 14:14:00 Jose Correa [facility] GARDASIL 9 (HPV 9V) VACCINE 2023-02-21 13:56:00 Mirta Correa [facility] NO SHOW OR MISSED APPOINTMENT POLICY ACKNOWLEDGEMENT 2023-02-21 12:59:00 Doctor Unassigned, Terra Bella [facility] ASSIGNMENT OF BENEFITS 2022-11-24 20:15:38 Docto r Unassigned, Terra Bella [facility] POCT TEST 2022-07-17 16:33[facility] 2022-07-17 16:15:00 Nannette Juan [facility] XR KNEE 3 VW LEFT 2022-03-19 14:44:16 Lottie Garvin [facility] POCT TEST 2022-03-19 14:34:00 Jennifer Garvin [facility] COMP. METABOLIC PANEL ([id number]) 2022-03-19 14:27:00 Lottie Garvin [facility] CBC WITH DIFF 2022-03-19 14:27:00 Lottie Garvin [facility] PROTHROMBIN TIME / INR 2022-03-19 14:27:00 Esdras Garvin [facility] ACTIVATED PARTIAL THRMPLAS REMEDIOS 2022-03-19 14:27:00 Lottie Garvin [facility] URINALYSIS 2022-03-19 14:27:00 Lottie Garvin [facility] CONSENT/REFUSAL FOR DIAGNOSIS AND TREATMENT 2022-03-19 13:50:09 Doctor Unassigned, Terra Bella [facility] CONSENT/REFUSAL FOR DIAGNOSIS AND TREATMENT 2021-10-01 18:15:24 Doctor Unassigned, Terra Bella [facility] INTUBATION 2020-08-04 19:57:02 Luzma Almanza [facility] ASSIGNMENT OF BENEFITS 2020-08-04 16:10:14 Docto r Unassigned, Terra Bella [facility] DISCLOSURE AND CONSENT, MEDICAL AND SURGICAL PROCEDURES 2020-07-05 05:01:00 Doctor Unassigned, Terra Bella [facility] HIV 1/2 AG-AB WITH REFLEX 2020-06-05 19:04:00 Casie Ortega [facility] GALV ONLY - SYPHILIS IGG/IGM 2020-06-05 19:04:00 Casie Ortega [facility] XR WRIST 3+ VW LEFT 2020-05-31 19:46:46 Torey Whyte [facility] MR WRIST LEFT WO CONTRAST 2020-03-31 20:18:12 Kami Bernard [facility] REFERRAL- REQUEST/RESPONSE 2020-03-23 05:01:00 D octor Unassigned, Terra Bella [facility] SEDIMENTATION RATE 2019-12-23 17:06:00 Kami Bernard [facility] CBC WITH DIFFERENTIAL 2019-12-23 17:06:00 Jose R Bernard [facility] ASSIGNMENT OF BENEFITS 2019-12-23 15:57:07 Docnando r Unassigned, Terra Bella [facility] DME/SUPPLY JUSTIFICATION 2019-05-27 05:01:00 Doc tor Unassigned, Terra Bella [facility] Encounters Start Date/Time End Date/Time Encounter Type Admission Type Attending Clinicians Care Facility Care Department Encounter ID Source 2021-08-24 19:16:32 Outpatient TOREY WHYTE [facility] [id number] [facility] 2024-04-05 00:00:00 2024-04-05 16:08:11 Telephone [facility] 1.84.114 350.1.13.10 4.2.7.2.686 [id number] 370 [id number] [facility] 2024-04-05 00:00:00 2024-04-05 15:08:08 Telephone Theresa Trent [facility] MEDICAL OFFICE BUILD[facility] 1.84.114 350.1.13.10 4.2.7.2.686 [id number] [facility] 2024-04-05 00:00:00 2024-04-05 12:41:55 Telephone Theresa Trent [facility] MEDICAL OFFICE BUILD[facility] 1.84.114 350.1.13.10 4.2.7.2.686 [id number] 370 [id number] [facility] 2024-04-05 10:40:00 2024-04-05 11:47:55 Outpatient R TRENTTHERESA CELESTE [facility] [id number] [facility] 2024-04-05 10:40:00 2024-04-05 11:47:55 Urgent Care Selena Trentnohemi Unknown, Attending [facility] MEDICAL OFFICE BUILDING 1.84.114 350.1.13.10 4.2.7.2.686 [id number] 370 [id number] [facility] 2024-02-23 10:30:00 2024-02-23 10:30:00 Outpatient R MIRTA CORREA [facility] [id number] [facility] 2024-02-03 00:00:00 2024-02-03 00:00:00 Telephone [facility]elia Kat [facility] 1.84.114 350.1.13.10 4.2.7.2.686 [id number] [facility] 2024-02-02 10:40:00 2024-02-02 11:19:57 Outpatient R AMELIA KAT [facility] [id number] [facility] 2024-02-02 10:40:00 2024-02-02 11:19:57 Urgent Care Amelia Kat Unknown, Attending [facility] MEDICAL OFFICE BUILDING 1.2.840.114 350.1.13.10 4.2.7.2.686 [id number] [facility] 2024-02-02 00:00:00 2024-02-02 00:00:00 Telephone Amelia Kat [facility] MEDICAL OFFICE BUILDING 1.2.840.114 350.1.13.10 4.2.7.2.686 [id number] 370 [id number] [facility] 2023-06-28 19:00:00 2023-06-28 19:00:00 Urgent Care Cj Tierney Unknown, Attending [facility] MEDICAL OFFICE BUILDING 1.2.840.114 350.1.13.10 4.2.7.2.686 [id number] 370 [id number] [facility] 2023-06-28 19:00:00 2023-06-28 18:52:42 Outpatient R CJ TIERNEY [facility] [id number] [facility] 2023-03-07 11:40:00 2023-03-07 12:00:00 Urgent Care SashaRegla Unknown, Attending [facility] MEDICAL OFFICE BUILDING 1.2.840.114 350.1.13.10 4.2.7.2.686 [id number] 370 [id number] [facility] 2023-03-07 11:40:00 2023-03-07 11:40:00 Outpatient R REGLA WILSON [facility] [id number] [facility] 2023-02-25 00:00:00 2023-02-25 00:00:00 Telephone Mirta Correa [facility] COMBAT SYSTEMS OPERATOR [facility] 1.2.840.114 350.1.13.10 4.2.7.2.686 [id number] 107 [id number] [facility] 2023-02-25 00:00:00 2023-02-25 00:00:00 Telephone Mirta Correa [facility] COMBAT SYSTEMS OPERATOR [facility] CHILD [facility] 1.2.840.114 350.1.13.10 4.2.7.2.686 [id number] 107 [id number] [facility] 2023-02-24 00:00:00 2023-02-24 00:00:00 Telephone Mirta Correa [facility] COMBAT SYSTEMS OPERATOR [facility] 1.2.840.114 350.1.13.10 4.2.7.2.686 [id number] [facility] 2023-02-24 00:00:00 2023-02-24 00:00:00 Patient Secure Msg Mirta Correa [facility] COMBAT SYSTEMS OPERATOR [facility] CH[facility] 1.2.840.114 350.1.13.10 4.2.7.2.686 [id number] 107 [id number] [facility] 2023-02-21 08:15:00 2023-02-21 09:14:08 Outpatient R MIRTA CORREA [facility] [id number] [facility] 2023-02-21 08:15:00 2023-02-21 09:14:08 Office Visit Mirta Correa [facility] COMBAT SYSTEMS OPERATOR [facility] CHILD [facility] 1.2.840.114 350.1.13.10 4.2.7.2.686 [id number] 107 [id number] [facility] 2023-02-21 00:00:00 2023-02-21 00:00:00 Orders Only Doctor Unassigned, Terra Bella [facility] 1.2.840.114 350.1.13.10 4.2.7.2.686 [id number] [facility] 2023-02-19 00:00:00 2023-02-19 00:00:00 Case Management Jenniffer Hernandez 1.2.840.114 350.1.13.10 4.2.7.2.686 [id number] [facility] 2023-02-19 00:00:00 2023-02-19 00:00:00 Telephone Jenniffer Hernandez 1.2.840.114 350.1.13.10 4.2.7.2.686 [id number] [facility] 2022-12-04 00:00:00 2022-12-04 00:00:00 Telephone [facility] MED[facility] 1.2.840.114 350.1.13.10 4.2.7.2.686 [id number] 370 [id number] [facility] 2022-11-24 14:20:00 2022-11-24 14:40:00 Urgent Care Latonia Curtis Unknown, Attending [facility] MEDICAL OFFICE BUILDING 1.2840.114 350.1.13.10 4.2.7.2.686 [id number] 370 [id number] [facility] 2022-11-24 14:20:00 2022-11-24 14:20:00 Outpatient R LATONIA CURTIS [facility] [id number] [facility] 2022-11-24 00:00:00 2022-11-24 00:00:00 Orders Only Doctor Unassigned, Terra Bella [facility] 1.2.840.114 350.1.13.10 4.2.7.2.686 [id number] [facility] 2022-07-20 00:00:00 2022-07-20 00:00:00 Telephone [place] [facility] ALEK?KEISHA AMAYA [facility] 1.2.840.114 350.1.13.10 4.2.7.2.686 [id number] 370 [id number] [facility] 2022-07-17 11:15:00 2022-07-17 11:29:07 Outpatient R DRAKE [facility] [id number] [facility] 2022-07-17 11:15:00 2022-07-17 11:29:07 Urgent Care Drake [facility] ALEK?KEISHA [facility] MEDICAL OFFICE BUILDING 1.2.840.114 350.1.13.10 4.2.7.2.686 [id number] 370 [id number] [facility] 2022-06-12 19:20:00 2022-06-12 19:47:11 Outpatient R TOREY CESAR [facility] [id number] [facility] 2022-06-12 19:20:00 2022-06-12 19:47:11 Urgent Care [facility] MED[facility] OFF[facility] BUILD[facility] 1.2.840.114 350.1.13.10 4.2.7.2.686 [id number] 370 [id number] [facility] 2022-04-14 12:40:00 2022-04-14 13:52:43 Outpatient R REGLA WILSON [facility] [id number] [facility] 2022-04-14 12:40:00 2022-04-14 13:52:43 Urgent Care Regla Wilson [facility] ALEK?KEISHA [facility] MEDICAL OFFICE BUILD[facility] 1.2.840.114 350.1.13.10 4.2.7.2.686 [id number] 370 [id number] [facility] 2022-04-03 14:20:00 2022-04-03 14:20:00 Urgent Care [facility] 1.2.840.114 350.1.13.10 4.2.7.2.686 [id number] 370 [id number] [facility] 2022-04-03 14:20:00 2022-04-03 14:03:55 Outpatient R HOUSTON BELLO [facility] [id number] [facility] 2022-03-19 09:01:00 2022-03-19 11:10:00 Emergency X LOTTIE GARVIN [facility] ERT [id number] [facility] 2022-03-19 09:01:00 2022-03-19 11:10:00 Emergency Lottie Garvin [facility] 1.2840.114 350.1.13.10 4.2.7.2.686 [id number] [facility] 2022-03-19 00:00:00 2022-03-19 00:00:00 Patient Secure Msg Doctor Unassigned, Terra Bella [facility] 1.2840.114 350.1.13.10 4.2.7.2.686 [id number] [facility] 2022-03-19 00:00:00 2022-03-19 00:00:00 Orders Only Doctor Unassigned, Terra Bella [facility] 1.2840.114 350.1.13.10 4.2.7.2.686 [id number] [facility] 2021-10-01 15:00:00 2021-10-01 13:13:59 Outpatient R DRAKE NANNETTE [facility] [id number] [facility] 2021-10-01 12:15:40 2021-10-01 13:13:59 Urgent Care Drake [facility] 1.2.840.114 350.1.13.10 4.2.7.2.686 [id number] 370 [id number] [facility] 2021-10-01 00:00:00 2021-10-01 00:00:00 Orders Only Doctor Unassigned, Terra Bella [facility] 1..114 350.1.13.10 4.2.7.2.686 [id number] [facility] 2021-06-04 00:00:00 2021-06-04 00:00:00 Patient Secure Msg Casie Ortega Oli [facility] COMBAT SYSTEMS OPERATOR [facility] 1.0.114 350.1.13.10 4.2.7.2.686 [id number] 107 [id number] [facility] 2021-01-15 00:00:00 2021-01-15 00:00:00 Patient Outreach Harjit Sneed [facility] PRIMARY CARE PAVILLION 1.840.114 350.1.13.10 4.2.7.2.686 [id number] 2021-01-15 00:00:00 2021-01-15 00:00:00 Patient Outreach Harjit Sneed [facility] 1.0.114 350.1.13.10 4.2.7.2.686 [id number] [facility] 2020-10-16 00:00:00 2020-10-16 00:00:00 Patient Secure Msg Doctor Unassigned, Terra Bella [facility] 1.2.114 350.1.13.10 4.2.7.2.686 [id number] [facility] 2020-08-23 14:00:00 2020-08-23 14:00:00 Outpatient R TOREY WHYTE [facility] [id number] [facility] 2020-08-22 00:00:00 2020-08-22 00:00:00 Patient Secure Msg Torey Whyte [facility] 1.84.114 350.1.13.10 4.2.7.2.686 [id number] [facility] 2020-08-09 00:00:00 2020-08-09 00:00:00 Telephone [facility] 1.2.840.114 350.1.13.10 4.2.7.2.686 [id number] [facility] 2020-08-09 00:00:00 2020-08-09 00:00:00 [facility] 1.2.840.114 350.1.13.10 4.2.7.2.686 [id number] 2020-08-04 11:12:00 2020-08-04 17:25:00 Hospital Encounter [facility] ([facility]) 1.2.840.114 350.1.13.10 4.2.7.2.686 [id number] [facility] 2020-08-04 11:12:00 2020-08-04 17:25:00 Hospital Encounter [facility] ([facility]) 1.2.840.114 350.1.13.10 4.2.7.2.686 [id number] 2020-08-04 14:32:00 2020-08-04 15:44:00 Anesthesia Ashley Alas David K [facility] 1.2.840.114 350.1.13.10 4.2.7.2.686 [id number] [facility] 2020-08-04 14:32:00 2020-08-04 15:44:00 Anesthesia Ashley Alas David K [facility] 1.2.840.114 350.1.13.10 4.2.7.2.686 [id number] 2020-08-04 00:00:00 2020-08-04 00:00:00 Orders Only Doctor Unassigned, Terra Bella [facility] 1.2.840.114 350.1.13.10 4.2.7.2.686 [id number] [facility] 2020-08-04 00:00:00 2020-08-04 00:00:00 Orders Only Doctor Unassigned, Terra Bella [facility] 1.2.840.114 350.1.13.10 4.2.7.2.686 [id number] 2020-08-03 15:30:00 2020-08-03 15:30:00 Outpatient R [facility] [id number] [facility] 2020-08-03 14:49:11 2020-08-03 15:04:01 Laboratory Only Only, [facility] 1.2.840.114 350.1.13.10 4.2.7.2.686 [id number] [facility] 2020-08-03 14:49:11 2020-08-03 15:04:01 Laboratory Only Only, Adc Test [facility] 1.2.840.114 350.1.13.10 4.2.7.2.686 [id number] 2020-08-02 00:00:00 2020-08-02 00:00:00 Telephone [facility] 1.2.840.114 350.1.13.10 4.2.7.2.686 [id number] [facility] 2020-08-02 00:00:00 2020-08-02 00:00:00 Telephone [facility] 1.2.840.114 350.1.13.10 4.2.7.2.686 [id number] [facility] 2020-07-21 00:00:00 2020-07-21 00:00:00 Patient Secure Msg Doctor Unassigned, Terra Bella [facility] COMBAT SYSTEMS OPERATOR [facility] MATERNAL & CHILD [facility] 1.2840.114 350.1.13.10 4.2.7.2.686 [id number] 107 [id number] [facility] 2020-07-20 00:00:00 2020-07-20 00:00:00 [facility] 1.2.840.114 350.1.13.10 4.2.7.2.686 [id number] [facility] 2020-07-19 00:00:00 2020-07-19 00:00:[address] [facility] 1.2840.114 350.1.13.10 4.2.7.2.686 [id number] [facility] 2020-07-07 00:00:00 2020-07-07 00:00:00 Patient Secure Msg [facility] 1.2840.114 350.1.13.10 4.2.7.2.686 [id number] [facility] 2020-07-05 11:28:58 2020-07-05 11:38:58 [facility] 1.2840.114 350.1.13.10 4.2.7.2.686 [id number] [facility] 2020-07-05 11:10:00 2020-07-05 11:10:00 Outpatient R TOREY WHYTE [facility] [id number] [facility] 2020-07-05 00:00:00 2020-07-05 00:00:00 Patient Secure Msg Doctor Unassigned, Terra Bella [facility] COMBAT SYSTEMS OPERATOR [facility] MATERNAL & CHILD [facility] 1.2840.114 350.1.13.10 4.2.7.2.686 [id number] [facility] 2020-07-05 00:00:00 2020-07-05 00:00:00 Orders Only Doctor Unassigned, Terra Bella [facility] 1.840.114 350.1.13.10 4.2.7.2.686 [id number] [facility] 2020-06-21 13:30:00 2020-06-21 13:30:00 Outpatient R RUEL IQBAL [facility] [id number] [facility] 2020-06-20 00:00:00 2020-06-20 00:00:00 Patient Secure Msg Torey Whyte [facility] PRIMARY CARE [facility] 1..840.114 350.1.13.10 4.2.7.2.686 [id number] [facility] 2020-06-19 16:19:58 2020-06-19 16:20:05 Ophthalmic Surgical Assistant Visit Lab, [facility] Casie Ortega [facility] COMBAT SYSTEMS OPERATOR [facility]ER[facility] & CHILD [facility] .840.114 350.1.13.10 4.2.7.2.686 [id number] [facility] 2020-06-19 15:40:00 2020-06-19 15:40:00 Outpatient R TOREY WHYTE [facility] [id number] [facility] 2020-06-19 15:15:00 2020-06-19 15:15:00 Outpatient R CASIE ORTEGA [facility] [id number] [facility] 2020-06-19 00:00:00 2020-06-19 00:00:00 Telephone Torey Whyte [facility] PRIMARY CARE PAVCRISS ..840.114 350.1.13.10 4.2.7.2.686 [id number] [facility] 2020-06-16 00:00:00 2020-06-16 00:00:00 Patient Secure Msg Doctor Unassigned, Terra Bella [facility] COMBAT SYSTEMS OPERATOR [facility] CH[facility] 1.2.840.114 350.1.13.10 4.2.7.2.686 [id number] [facility] 2020-06-13 00:00:00 2020-06-13 00:00:00 Patient Secure Msg Doctor Unassigned, Terra Bella [facility] COMBAT SYSTEMS OPERATOR [facility]ERNAL [facility] CHILD [facility] 1.2.840.114 350.1.13.10 4.2.7.2.686 [id number] 107 [id number] [facility] 2020-06-12 00:00:00 2020-06-12 00:00:00 Telephone OrtegaCasie [facility] COMBAT SYSTEMS OPERATOR [facility] 1.2.840.114 350.1.13.10 4.2.7.2.686 [id number] [facility] 2020-06-06 00:00:00 2020-06-06 00:00:00 Telephone OrtegaCasie [facility] COMBAT SYSTEMS OPERATOR [facility] CHILD [facility] 1.2.840.114 350.1.13.10 4.2.7.2.686 [id number] 107 [id number] [facility] 2020-06-05 12:48:43 2020-06-05 14:03:05 Office Visit Casie Ortega [facility] COMBAT SYSTEMS OPERATOR [facility] CHILD [facility] 1.2.840.114 350.1.13.10 4.2.7.2.686 [id number] [facility] 2020-06-05 12:45:00 2020-06-05 12:45:00 Outpatient R CASIE ORTEGA [facility] [id number] [facility] 2020-05-31 14:36:23 2020-05-31 23:59:00 Hospital Encounter Torey Whyte [facility] 1.2.840.114 350.1.13.10 4.2.7.2.686 [id number] [facility] 2020-05-31 14:17:05 2020-05-31 15:56:27 Office Visit Torey Whyte [facility] ..840.114 350.1.13.10 4.2.7.2.686 [id number] [facility] 2020-05-31 14:30:00 2020-05-31 14:30:00 Outpatient TOREY PANDEY [facility] [id number] [facility] 2020-04-24 00:00:00 2020-04-24 00:00:00 Patient Secure Msg Doctor Unassigned, Terra Bella [facility] 1..840.114 350.1.13.10 4.2.7.2.686 [id number] [facility] 2020-04-12 13:00:00 2020-04-12 13:00:00 Outpatient TOREY PANDEY [facility] [id number] [facility] 2020-04-12 00:00:00 2020-04-12 00:00:00 Patient Secure Msg Doctor Unassigned, Terra Bella [facility] COMBAT SYSTEMS OPERATOR [facility] 1..840.114 350.1.13.10 4.2.7.2.686 [id number] [facility] 2020-04-06 15:30:00 2020-04-06 15:30:00 Outpatient KAMI PABLO [facility] [id number] [facility] 2020-04-06 13:33:51 2020-04-06 14:02:35 Office Visit Kami Bernard [facility] 1..840.114 350.1.13.10 4.2.7.2.686 [id number] [facility] 2020-03-31 14:26:45 2020-03-31 23:59:00 Outpatient KAMI PABLO [facility] [id number] [facility] 2020-03-31 14:00:00 2020-03-31 23:59:00 Hospital Encounter Kami Bernard [facility] 1.2.840.114 350.1.13.10 4.2.7.2.686 [id number] [facility] 2020-03-23 00:00:00 2020-03-23 00:00:00 Orders Only Doctor Unassigned, Terra Bella [facility] 1.2.840.114 350.1.13.10 4.2.7.2.686 [id number] [facility] 2020-03-22 00:00:00 2020-03-22 00:00:00 Telephone Kami Bernard [facility] Surgical Specialti amara Cosby 1.2.840.114 350.1.13.10 4.2.7.2.686 [id number] [facility] 2020-03-16 14:10:26 2020-03-16 14:24:02 Office Visit Kami Bernard Rachel [facility] Special[facility] amara Cosby 1.2.840.114 350.1.13.10 4.2.7.2.686 [id number] [facility] 2020-03-16 14:15:00 2020-03-16 14:15:00 Outpatient R KAMI BERNARD [facility] [id number] [facility] 2020-03-16 13:15:00 2020-03-16 13:15:00 Outpatient R KAMI BERNARD [facility] [id number] [facility] 2020-01-11 13:45:00 2020-01-11 13:45:00 Outpatient JOHN NAQVI [facility] [id number] [facility] 2020-01-06 14:45:00 2020-01-06 14:45:00 Outpatient JOHN NAQVI [facility] [id number] [facility] 2019-12-30 10:15:00 2019-12-30 10:15:00 Outpatient KAMI PABLO [facility] [id number] [facility] 2019-12-30 00:00:00 2019-12-30 00:00:00 Patient Secure John Mcgovern [facility] amara [place] 1.2.114 350.1.13.10 4.2.7.2.686 [id number] [facility] 2019-12-23 10:51:53 2019-12-23 11:06:53 Ophthalmic Surgical Assistant Visit Pob, Adc Lab Main Kami Bernard [facility] Building 1..114 350.1.13.10 4.2.7.2.686 [id number] [facility] 2019-12-23 09:56:57 2019-12-23 10:15:25 Office Visit Kami Bernard [facility] Surgical Special amara [place] 1..114 350.1.13.10 4.2.7.2.686 [id number] [facility] 2019-12-23 10:15:00 2019-12-23 10:15:00 Outpatient R MARCO ANTONIO KAMI [facility] [id number] [facility] 2019-12-23 00:00:00 2019-12-23 00:00:00 Orders Only Doctor Unassigned, Terra Bella [facility] 1..114 350.1.13.10 4.2.7.2.686 [id number] [facility] 2019-05-27 00:00:00 2019-05-27 00:00:00 Orders Only Doctor Unassigned, Terra Bella [facility] 1.2.114 350.1.13.10 4.2.7.2.686 [id number] [facility] 2019-05-27 00:00:00 2019-05-27 00:00:00 Telephone Haja Abraham [facility] Building 1.2114 350.1.13.10 4.2.7.2.686 [id number] [facility] 2014-05-30 00:00:00 2014-05-30 00:00:00 Patient Secure Msg Doctor Unassigned, Terra Bella [facility] 1.2.840.114 350.1.13.10 4.2.7.2.686 [id number] [facility] Results Test Description Test Time Test Comments Results Result Co mments Source [facility] SARS-COV-2 ANTIGEN (BINAX NOW)2024-04-05 16:28:00* Test Item Value Reference Range Interpretation Comme nts POCT SARS-COV-2 ANTIGEN (test code = 45026-1) Not Detected Not Detected On board controls acceptable with C Line (test code = 3574) Yes FIONA (test code = FIONA) accurate developme nt and interpretation of all internal controls [facility] MOLECULAR [id number] 16:20:56* Test Item Value Reference Range Interpretation Comme nts POCT Molecular Strep (test c ode = 66388-4) Negative Negative Lab Interpretation (test cod e = 62958-4) Normal [facility] MOLECULAR [id number] 16:03:23* Test Item Value Reference Range Interpretation Comme nts POCT Molecular Strep (test c ode = 63266-0) Negative Negative Lab Interpretation (test cod e = 13618-3) Normal [facility] SARS-COV-2 ANTIGEN (BINAX NOW)2023-06-28 23:40:00* Test Item Value Reference Range Interpretation Comme nts POCT SARS-COV-2 ANTIGEN (test code = 68716-7) Not Detected Not Detected On board controls acceptable with C Line (test code = 3574) Yes FIONA (test code = FIONA) accurate developme nt and interpretation of all internal controls Lab Interpretation (test code = 66243-4) Normal [facility] SARS-COV-2 ANTIGEN (BINAX NOW)2023-06-28 23:40:00* Test Item Value Reference Range Interpretation Comme nts POCT SARS-COV-2 ANTIGEN (test code = 66777-2) Not Detected Not Detected On board controls acceptable with C Line (test code = 3574) Yes FIONA (test code = FIONA) accurate developme nt and interpretation of all internal controls Lab Interpretation (test code = 54292-6) Normal [facility] MOLECULAR [id number] 16:26:28* Test Item Value Reference Range Interpretation Comme nts POCT Molecular Strep (test c ode = 22296-1) Negative Negative Lab Interpretation (test cod e = 83284-7) Normal [id number] 16:53:38* Test Item Value Reference Range Interpretation Comme nts Syphilis IgG/IgM (test code = 04640-1) Non-reactive Non-reactive FIONA (test code = FIONA) Non-reactive - No serologic evidence of T. pallidum infection. Cannot exclude incubating or early syphilis. Submit a second specimen in 2-4 weeks if syphilis is clinically suspected. Equivocal - Further testing to follow. Reactive - Further testing to follow. Lab Interpretation (test code = 84407-7) Normal [facility]-AB WITH [id number] 05:24:24* Test Item Value Reference Range Interpretation Comme nts HIV Semi-quantitative (test code = 09495-7) 0.07 Negative FIONA (test code = FIONA) Non-reactive for HIV-1 antigen and HIV-1/HIV-2 antibodies. ?No laboratory evidence of HIV infection. ?Repeat in 2-4 weeks if acute HIV infection is suspected. [facility] [id number] 16:44:00* Test Item Value Reference Range Interpretation Comme nts POCT PREG (test code = 1605) Negative On board controls acceptable with C Line (test code = 3574) Yes POCT PREG LOT # (test code = 3575) [id number] POCT PREG TEST DATE (test code = 3576) FIONA (test code = FIONA) accurate developme nt and interpretation of all internal controls Lab Interpretation (test code = 99760-6) Normal [facility] URINALYSIS W SPECIFIC [id number] 16:16:00* Test Item Value Reference Range Interpretation [...] clear Lab Interpretation (test cod e = 01119-4) Normal [facility] WITH [id number] 15:36:23* Test Item Value Reference Range Interpretation Comme nts WBC (test code = 6690-2) See_Comment H [Automated ibeatyoua ge] The system which generated this result transmitted reference range: 4.30 - 11.10 10*3/?L. The reference range was not used to interpret this result as normal/abnormal. RBC (test code = 789-8) See_Comment [Automated ibeatyoua ge] The system which generated this result [...] 33.6 g/dL 31.6-35.1 RDW-SD (test code = 87861-2) 43.0 fL 39.0-49.9 RDW-CV (test code = 788-0) 13.8 % 12.0-15.5 PLT (test code = 777-3) See_Comment [Automated messa ge] The system which generated this result transmitted reference range: 166 - 358 10*3/?L. The reference range was not used to interpret this result as normal/abnormal. MPV (test code = 49491-9) 10.8 fL 9.5-12.9 NRBC/100 WBC (test code = 4325978857) See_Comment [Automated Denty's ssage] The system which generated this result transmitted reference range: 0.0 - 10.0 /100 WBCs. The reference range was not used to interpret this result as normal/abnormal. NRBC x10^3 (test code = 2106859539) <0.01 See_Comment [Automated messa ge] The system which generated this result transmitted reference range: 10*3/?L. The reference range was not used to interpret this result as normal/abnormal. GRAN MAT (NEUT) % (test code = 770-8) 59.6 % IMM GRAN % (test code = 2128303773) 0.40 % LYMPH % (test code = 736-9) 29.0 % MONO % (test code = 5905-5) 7.7 % EOS % (test code = 713-8) 2.9 % BASO % (test code = 706-2) 0.4 % GRAN MAT x10^3(ANC) (test code = 1818785124) 8.31 10*3/uL 1.88-7.09 H IMM GRAN x10^3 (test code = 5660337927) 0.06 10*3/uL 0.00-0.06 LYMPH x10^3 (test code = 731-0) 4.05 10*3/uL 1.32-3.29 H MONO x10^3 (test code = 742-7) 1.07 10*3/uL 0.33-0.92 H EOS x10^3 (test code = 711-2) 0.41 10*3/uL 0.03-0.39 H BASO x10^3 (test code = 704-7) 0.05 10*3/uL 0.01-0.07 REACT LYMPHS (test code = 9909346489) Rare Lab Interpretation (test code = 02929-7) Abnormal [facility] Center[facility]IV[facility] PARTIAL THRMPLAS [id number] 15:06:58* Test Item Value Reference Range Interpretation Comme [facility] APTT Patient (test code = 3173-2) See_Comment [Automated message] The system which generated this result transmitted reference range: 23 - 38 Seconds. The reference range was not used to interpret this result as normal/abnormal. FIONA (test code = FIONA) The [facility] patient population mean normal value for aPTT is 30 seconds. Lab Interpretation (test code = 09860-5) Normal [facility] CenterPROTHROMBIN TIME / [id number] 15:04:57* Test Item Value Reference Range Interpretation [...] the indications. Lab Interpretation (test code = 35982-9) Normal [facility] CenterCOMP. METABOLIC PANEL (50539)2022-03-19 14:58:33* Test Item Value Reference Range Interpretation Comme [facility] NA (test code = 2994620448) 141 mmol/L 135-145 K (test code = 7456053242) 4.3 mmol/L 3.5-5.0 CL (test code = 0267353826) 107 mmol/L 98-108 CO2 TOTAL (test code = 4422117310) 24 mmol/L 23-31 AGAP (test code = 0507465177) 2-16 BUN (test code = 7481557562) 11 mg/dL 7-23 GLUCOSE (test code = 0853647488) 116 mg/dL 70-110 H CREATININE (test code = 2185755319) 0.71 mg/dL 0.50-1.04 TOTAL BILI (test code = 8218689137) 0.5 mg/dL 0.1-1.1 CALCIUM (test code = 6353214850) 9.3 mg/dL 8.6-10.6 T PROTEIN (test code = 9774861315) 7.0 g/dL 6.3-8.2 ALBUMIN (test code = 0980791960) 4.3 g/dL 3.5-5.0 ALK PHOS (test code = 1521032555) 63 U/L 34-122 ALTv (test code = 1742-6) 48 U/L 5-35 H AST(SGOT) (test code = 8124236156) 33 U/L 13-40 eGFR (test code = 6060561578) mL/min/1.73m2 FIONA (test code = FIONA) Association [...] imaging tests). Lab Interpretation (test code = 79742-3) Abnormal [facility] [id number] 14:34:00* Test Item Value Reference Range Interpretation Comme nts POCT PREG (test code = 1605) negative On board controls acceptable with C Line (test code = 3574) present POCT PREG LOT # (test code = 3575) [id number] POCT PREG TEST DATE ( test code = 3576) 07-26-2023 Lab Interpretation (test cod e = 12363-7) Normal [facility] CenterIntubation2020-10-09 19:57:02HoLuzma Fairchild CRNA ? ? 08/04/2020 ?2:57 PMIntubationDate/Time: 08/04/2020 2:39 PMUrgency: elective Airway not difficult General Information and Staff Patient location during procedure: ORResident/ASSISTANT PRINCIPAL: Luzma Almanza CRNAPerformed: resident/ASSISTANT PRINCIPAL Indications and Patient ConditionIndications for airway management: [...] and BBS, teeth and lips per preop assessmentUnBaptist Saint Anthony's HospitalGALV ONLY - SYPHILIS IGG/IGM 2020-06-06 13:57:00* Test Item Value Reference Range Interpretation Comme nts Syphilis IgG/IgM (test code = 52752-5) Non-reactive Non-reactive FIONA (test code = FIONA) Non-reactive - No serologic evidence of T. pallidum infection. Cannot exclude incubating or early syphilis. Submit a second specimen in 2-4 weeks if syphilis is clinically suspected. Equivocal - Further testing to follow. Reactive - Further testing to follow. Lab Interpretation (test code = 08134-4) Normal [facility]2 AG-AB WITH [id number] 05:48:00* Test Item Value Reference Range Interpretation Comme [facility] HIV Semi-quantitative (test code = 13305-4) Negative Negative FIONA (test code = FIONA) Non-reactive for HIV-1 antigen and HIV-1/HIV-2 antibodies. ?No laboratory evidence of HIV infection. ?Repeat in 2-4 weeks if acute HIV infection is suspected. [facility] CenterXR WRIST 3+ VW [id number] 20:09:52 Osteonecrosis of the lunate. Nonspecific swelling [...] of the lunate.Nonspecific swelling over the medial forearm.[facility] [id number] 17:35:00* Test Item Value Reference Range Interpretation Comme nts ESR (test code = 0894313939) See_Comment [Automated messa ge] The system which generated this result transmitted reference range: 0 - 20 mm/HR. The reference range was not used to interpret this result as normal/abnormal. Lab Interpretation (test code = 22672-2) Normal [facility] [id number] 17:35:00* Test Item Value Reference Range Interpretation Comme nts ESR (test code = 4526472817) See_Comment [Automated messa ge] The system which generated this result transmitted reference range: 0 - 20 mm/HR. The reference range was not used to interpret this result as normal/abnormal. Lab Interpretation (test code = 06738-7) Normal [facility] WITH [id number] 17:10:00* Test Item Value Reference Range Interpretation [...] g/dL 31.6-35.1 L RDW-SD (test code = 52802-2) 45.0 fL 39-49.9 RDW-CV (test code = 788-0) 14.9 % 12-15.5 PLT (test code = 777-3) See_Comment [Automated messa ge] The system which generated this result transmitted reference range: 166 - 358 10*3/?L. The reference range was not used to interpret this result as normal/abnormal. MPV (test code = 74245-9) 10.0 fL 9.5-12.9 NRBC/100 WBC (test code = 1366761119) See_Comment [Automated Denty's ssage] The system which generated this result transmitted reference range: 0.0 - 10.0 /100 WBCs. The reference range was not used to interpret this result as normal/abnormal. NRBC x10^3 (test code = 9988335997) <0.01 See_Comment [Automated ibeatyoua ge] The system which generated this result transmitted reference range: 10*3/?L. The reference range was not used to interpret this result as normal/abnormal. GRAN MAT (NEUT) % (test code = 770-8) 60.7 % IMM GRAN % (test code = 1212906371) 0.50 % LYMPH % (test code = 736-9) 28.4 % MONO % (test code = 5905-5) 7.5 % EOS % (test code = 713-8) 2.5 % BASO % (test code = 706-2) 0.4 % GRAN MAT x10^3(ANC) (test code = 9854353778) 5.91 10*3/uL 1.88-7.09 IMM GRAN x10^3 (test code = 1764344261) 0.05 10*3/uL 0-0.06 LYMPH x10^3 (test code = 731-0) 2.76 10*3/uL 1.32-3.29 MONO x10^3 (test code = 742-7) 0.73 10*3/uL 0.33-0.92 EOS x10^3 (test code = 711-2) 0.24 10*3/uL 0.03-0.39 BASO x10^3 (test code = 704-7) 0.04 10*3/uL 0.01-0.07 Lab Interpretation (test code = 45386-8) Abnormal [facility] WITH [id number] 17:10:00* Test Item Value Reference Range Interpretation Comme nts WBC (test code = 6690-2) See_Comment [Automated ibeatyoua ge] The system which generated this result transmitted reference range: 4.30 - 11.10 10*3/?L. The reference range was not used to interpret this result as normal/abnormal. RBC (test code = 789-8) See_Comment [Automated ibeatyoua ge] The system which generated this result [...] g/dL 31.6-35.1 L RDW-SD (test code = 70412-7) 45.0 fL 39-49.9 RDW-CV (test code = 788-0) 14.9 % 12-15.5 PLT (test code = 777-3) See_Comment [Automated ibeatyoua ge] The system which generated this result transmitted reference range: 166 - 358 10*3/?L. The reference range was not used to interpret this result as normal/abnormal. MPV (test code = 04112-2) 10.0 fL 9.5-12.9 NRBC/100 WBC (test code = 3688017623) See_Comment [Automated me ssage] The system which generated this result transmitted reference range: 0.0 - 10.0 /100 WBCs. The reference range was not used to interpret this result as normal/abnormal. NRBC x10^3 (test code = 1845209508) <0.01 See_Comment [Automated messa ge] The system which generated this result transmitted reference range: 10*3/?L. The reference range was not used to interpret this result as normal/abnormal. GRAN MAT (NEUT) % (test code = 770-8) 60.7 % IMM GRAN % (test code = 7075599414) 0.50 % LYMPH % (test code = 736-9) 28.4 % MONO % (test code = 5905-5) 7.5 % EOS % (test code = 713-8) 2.5 % BASO % (test code = 706-2) 0.4 % GRAN MAT x10^3(ANC) (test code = 7308263101) 5.91 10*3/uL 1.88-7.09 IMM GRAN x10^3 (test code = 0818948908) 0.05 10*3/uL 0-0.06 LYMPH x10^3 (test code = 731-0) 2.76 10*3/uL 1.32-3.29 MONO x10^3 (test code = 742-7) 0.73 10*3/uL 0.33-0.92 EOS x10^3 (test code = 711-2) 0.24 10*3/uL 0.03-0.39 BASO x10^3 (test code = 704-7) 0.04 10*3/uL 0.01-0.07 Lab Interpretation (test code = 14281-7) Abnormal [facility] Notes Date/Time Note Provider Source 2024-04-05 16:08:37 Attempted to contact patient, left message on voicemail if need to fill rx to use GoodRx coupon, since rx needs a PA. Closing encounter. Feliaplinda Bryant RN 04/05/2024 4:08 PM [facility] 2024-04-05 16:08:21 Attempted to contact patient, left message on voicemail if need to fill rx to use GoodRx coupon, since rx needs a PA. Closing encounter. Felipa Bryant RN 04/05/2024 4:08 PM [facility] 2024-04-05 16:07:06 Attempted to contact patient, left message on voicemail if need to fill rx to use GoodRx coupon, since rx needs a PA. Closing encounter. Felipa Bryant RN 04/05/2024 4:08 PM T [facility] 2024-04-05 15:40:44 Priscilla Solo is a 38 year old female and is returning a missed call. Pt said if its about the inhaler to not worry about it if its causing a huge mess. Please advise. Antoine Johnson [facility] 2024-04-05 15:07:43 Attempted to contact patient by phone, no answer, message left on voicemail to call back. Felipa Bryant RN 04/05/2024 3:07 PM [facility] 2024-04-05 13:45:01 Copied from [facility] #[id number]. Topic: Clinical - Missed Call from Provider >> Apr 05, 2024 1:43 PM Patient Engineering Production Liaison wrote: Patient is returning a call she missed from the clinic in regards to medication. Niraj Pace [facility] 2024-04-05 12:40:57 Patient called in regards to prior auth, no answer, message left on voicemail to call back. Felipa Bryant RN 04/05/2024 12:41 PM [facility] 2024-04-05 12:27:00 Images from the original note were not included. Sol Phelps [facility] 2024-02-06 16:21:50 Addended by: PATRICIA BRIONES on: 02/06/2024 04:21 PM Modules accepted: Orders [facility] 2024-02-06 16:21:34 Rx needs to be brand name , rx resent [facility] 2024-02-04 09:28:35 PA initiated Rdz: [id number] Devika Leblanc RN [facility] 2024-02-03 15:10:41 Images from the original note were not included. Vera Renee [facility] 2024-02-02 11:49:22 Corrected Rx resent to [facility]'s pharmacy. Felipa Bryant RN 02/02/2024 11:50 AM Felipa Bryant RN [facility] 2024-02-02 11:30:49 Copied from [facility] #[id number]. Topic: Clinical - Medical Advice >> Feb 02, 2024 11:29 AM Patient Engineering Production Liaison wrote: Omar with [facility] is calling to clarify medication directions for azithromycin 500 mg tablet [id number] - [place] - [address] AT [facility] & [place] [address] [place] [address] John Desai [facility]"
[2024-05-25] MEDS ORDERED: NA CHLORIDE 0.9% 1,000 ML ONE (20:01)
[2024-05-25] MEDS ORDERED: ONDANSETRON 4 MG/2 ML VIAL ONE (20:01)
[2024-05-25 21:01] LABS: Absolute Eosinophils 0.1 K/uL (0-0.5); Absolute Lymphocytes (CBC) 2.4 K/uL (0.7-4.9); Absolute Monocytes 1.8 K/uL (0.1-1.3); Absolute Neutrophil 16.3 K/uL (1.8-8.0); Basophils % 0.1 % (0-1.3); Eosinophils % 0.4 % (0-4.4); Hematocrit 41.7 % (36.0-45.0); Lymphocytes % 11.8 % (15.3-44.8); MCH 28.6 pg (27.0-35.0); MCHC 33.5 g/dL (32.0-36.0); MCV 85.4 fL (80-100); MPV 8.3 fL (7.6-11.3); Monocytes % 8.5 % (3.3-12.3); Neutrophils % 79.2 % (41.7-73.7); Nucleated Red Blood Cells % 0.1 % (0-0); Platelets 256 thou/uL (152-406); RBC Red Blood Cell Count 4.89 M/uL (3.86-4.86); Red Cell Distribution Width 14.2 % (12.1-15.2)
[2024-05-25 21:10] LABS: Anion Gap 7.5 mEq/L (5.0-15.0); Potassium 3.5 mEq/L (3.5-5.1)
[2024-05-25 21:27] LABS: SARS-CoV-2 Antigen CONTROL BLUE LINE VIS/BG OK; SARS-CoV-2 Antigen Rapid Res Negative (Negative)
[2024-05-25] MEDS ORDERED: IBUPROFEN 400 MG TAB ONE (21:46)
[2024-05-25 22:10] LABS: White Blood Cell Scan OK (OK)
[2024-05-25 22:11] LABS: Blood Morphology Comment NOT SEEN (NOT SEEN); Platelet Estimate ADEQ
--- NOTE | 2024-05-25 22:59 | EDPHYS ---
Physician Documentation [facility] Name: Priscilla Solo Age: 38 yrs Sex: Female : 1985 Arrival Date: 05/25/2024 Time: 18:54 Bed Treatment Private MD: ED Physician Jerry Rodriguez HPI: 05/25 23:35 This 38 yrs old Female presents to ER via Ambulatory with complaints of Flu Symptoms. kb 23:35 Pt is a 38 year old female who presents for sore throat, bodyaches, fever, chills, kb headache that started 3 days ago. States she feels dehydrated because she hasn't been able to hold down much PO. . Historical: - Allergies: 19:17 Lamictal; ap3 19:17 Latex; ap3 19:17 Morphine; ap3 - PMHx: 19:17 ADD/ADHD; Anxiety; Asthma; cardiomyopathy; CHF; Hypertension; ap3 - PSHx: 19:17 Appendectomy; section; L wrist SX x 2; tubal ligation; ap3 - Immunization history:: Client reports having NOT received the Covid vaccine. - Infectious Disease History:: Denies. - Social history:: Smoking status: Patient denies any tobacco usage or history of. ROS: 23:32 Constitutional: As per HPI kb Exam: 23:32 Constitutional: This is a well developed, well nourished patient who is awake, alert, kb and in no acute distress. Head/Face: Normocephalic, atraumatic. Cardiovascular: Regular rate Respiratory: Respirations even and unlabored. No increased work of breathing. Talking in full sentences Abdomen/GI: Soft, non-tender. No distention Skin: Warm, dry with normal turgor. Normal color. MS/ Extremity: Pulses equal, no cyanosis. Neurovascular intact. Full, normal range of motion. Neuro: Awake and alert, GCS 15, oriented to person, place, time, and situation. Moves all extremities. Normal gait. 23:32 ENT: Posterior pharynx: Airway: normal, no evidence of obstruction, Tonsils: bilaterally enlarged, with erythema, swelling, that is mild, erythema, that is mild, Vital Signs: 19:15 BP 140 / 97; Pulse 104; Resp 22; Temp 98.8; Pulse Ox 97% ; Weight 127.01 kg; Height 5 ap3 ft. 1 in. ; Pain 10/10; 21:49 BP 135 / 79; Pulse 92; Resp 16; Temp 100.3(O); Pulse Ox 98% on R/A; jb4 23:35 BP 128 / 82; Pulse 86; Resp 16; Temp 97.2(TE); Pulse Ox 98% on R/A; jb4 19:15 Body Mass Index 52.90 (127.01 kg, 154.94 cm) ap3 19:15 Pain Scale: Adult ap3 MDM: 19:01 Patient medically screened. kb 23:33 Differential diagnosis: flu, covid, dehydration, strep, abnormal electrolytes. Data kb reviewed: vital signs, nurses notes. Consideration of Admission/Observation Escalation of care including admission/observation considered. admission considered, but pt is tolerating po intake, vitals improved. Discussed return precautions. . Counseling: I had a detailed discussion with the patient and/or guardian regarding the historical points, exam findings, and any diagnostic results supporting the discharge/admit diagnosis, lab results, the need for outpatient follow up, a family practitioner, to return to the emergency department if symptoms worsen or persist or if there are any questions or concerns that arise at home. 05/25 19:19 Order name: CBC with Diff; Complete Time: 22:12 kb 05/25 19:19 Order name: BMP; Complete Time: 21:11 kb 05/25 19:19 Order name: Flu; Complete Time: 21:30 kb 05/25 19:19 Order name: Strep; Complete Time: 21:11 kb 05/25 19:19 Order name: SARS-COV-2 Antigen Rapid; Complete Time: 21:27 kb 05/25 22:11 Order name: CBC Smear Scan; Complete Time: 22:12 EDMS 05/25 19:19 Order name: IV Start; Complete Time: 20:49 kb 05/25 21:30 Order name: Vital Signs; Complete Time: 21:50 kb Administered Medications: 21:15 Drug: Ondansetron IVP 4 mg IVP once; over 2 minutes Route: IVP; Site: left antecubital; jb4 21:16 Drug: NS 0.9% IV 1000 ml IV at 1000 ml once Route: IV; Rate: 1000 ml; Site: left jb4 antecubital; 21:50 Drug: Ibuprofen PO 800 mg PO once Route: PO; jb4 23:35 Drug: Amoxicillin-Clavulanate PO 875 mg PO once Route: PO; jb4 Disposition: 05/26 21:24 Co-signature as Attending Physician, Jerry Rodriguez MD I agree with the assessment and freda plan of care. Disposition Summary: 05/25/24 22:59 Discharge Ordered Notes: Location: Home kb Condition: Stable kb Diagnosis - Streptococcal pharyngitis kb Followup: kb - With: Emergency Department - When: As needed - Reason: Worsening of condition Followup: kb - With: Private Physician - When: 2 - 3 days - Reason: Recheck today's complaints, Continuance of care, Re-evaluation by your physician Discharge Instructions: - Discharge Summary Sheet kb - Strep Throat, Adult, Kpos-st-Tmdx kb Forms: - Medication Reconciliation Form kb - Antibiotic Education kb - Prescription Opioid Use kb - Patient Portal Instructions kb - Leadership Thank You Letter kb Prescriptions: - Augmentin 875-125 mg Oral Tablet - take 1 tablet ORAL route every 12 hours for 10 days; 20 tablet; Refills: 0, kb Product Selection Permitted - Zofran 4 mg Oral tablet - take 1 tablet ORAL route every 6 hours As needed; 12 tablet; Refills: 0, kb Product Selection Permitted Signatures: Dispatcher [employer] Nai Bruce, PIECE GOODS PACKER-C P[employer] PACKER-Jerry Su MD MD cha Bryson, James, RN RN jb4 Nannette Esparza RN RN ap3
--- NOTE | 2024-05-25 22:59 | ER ---
Nurse's Notes [facility] Name: Priscilla Solo Age: 38 yrs Sex: Female : 1985 Arrival Date: 05/25/2024 Time: 18:54 Bed Treatment Private MD: Diagnosis: Streptococcal pharyngitis Presentation: 05/25 19:15 Chief complaint: Patient states: she started having cough, body aches, ear pain, pain ap3 when swallowing, chills, nausea and vomiting since yesterday. patient currently rates her pain as a 10/10 on the pain scale. Coronavirus screen: At this time, the client does not indicate any symptoms associated with coronavirus-19. Ebola Screen: No symptoms or risks identified at this time. Initial Sepsis Screen: Does the patient meet any 2 criteria? RR > 20 per min. HR > 90 bpm. Does the patient have a suspected source of infection? No. Patient's initial sepsis screen is negative. Risk Assessment: Do you want to hurt yourself or someone else? Patient reports no desire to harm self or others. Onset of symptoms was May 24, 2024. 19:15 Method Of Arrival: Ambulatory ap3 19:15 Acuity: ERIC 3 ap3 Triage Assessment: 19:18 General: Appears ill, Behavior is calm, cooperative, appropriate for age, Reports ap3 chills for fever for feeling ill for fatigue for. Pain: Complains of pain in generalized body aches Pain currently is 10 out of 10 on a pain scale. Pain began 1 day ago. Neuro: Level of Consciousness is awake, alert, obeys commands, Oriented to person, place, time, situation, Appropriate for age. Cardiovascular: Patient's skin is warm and dry. Respiratory: Reports cough that is Airway is patent Respiratory effort is even, unlabored. GI: Reports lower abdominal pain, upper abdominal pain, nausea, vomiting. Historical: - Allergies: 19:17 Lamictal; ap3 19:17 Latex; ap3 19:17 Morphine; ap3 - PMHx: 19:17 ADD/ADHD; Anxiety; Asthma; cardiomyopathy; CHF; Hypertension; ap3 - PSHx: 19:17 Appendectomy; section; L wrist SX x 2; tubal ligation; ap3 - Immunization history:: Client reports having NOT received the Covid vaccine. - Infectious Disease History:: Denies. - Social history:: Smoking status: Patient denies any tobacco usage or history of. Screenin:19 [facility] ED Fall Risk Assessment (Adult) History of falling in the last 3 months, ap3 including since admission No falls in past 3 months (0 pts) Confusion or Disorientation No (0 pts) Intoxicated or Sedated No (0 pts) Impaired Gait Mobility Assist Device Used No (0 pt) Altered Elimination No (0 pt) Score/Fall Risk Level 0 - 2 = Low Risk Oriented to surroundings, Maintained a safe environment, Educated pt \T\ family on fall prevention, incl call for assistance when getting out of bed, Assessed \T\ reinforced patient's understanding of fall precautions, Provided non-skid footwear, Hourly rounding (assess needs \T\ fall precautionary measures) done, Used ambulatory aids as needed (educated on \T\ assisted with), Used gait belt as appropriate. Abuse screen: Denies threats or abuse. Nutritional screening: No deficits noted. Tuberculosis screening: No symptoms or risk factors identified. Assessment: 21:49 Reassessment: Patient appears in no apparent distress at this time. Patient and/or jb4 family updated on plan of care and expected duration. Pain level reassessed. Patient is alert, oriented x 3, equal unlabored respirations, skin warm/dry/pink. 23:35 Reassessment: Patient appears in no apparent distress at this time. Patient and/or jb4 family updated on plan of care and expected duration. Pain level reassessed. Patient is alert, oriented x 3, equal unlabored respirations, skin warm/dry/pink. Vital Signs: 19:15 BP 140 / 97; Pulse 104; Resp 22; Temp 98.8; Pulse Ox 97% ; Weight 127.01 kg; Height 5 ap3 ft. 1 in. ; Pain 10/10; 21:49 BP 135 / 79; Pulse 92; Resp 16; Temp 100.3(O); Pulse Ox 98% on R/A; jb4 23:35 BP 128 / 82; Pulse 86; Resp 16; Temp 97.2(TE); Pulse Ox 98% on R/A; jb4 19:15 Body Mass Index 52.90 (127.01 kg, 154.94 cm) ap3 19:15 Pain Scale: Adult ap3 ED Course: 18:56 Patient arrived in ED. mr 19:01 Nai Nelson FNP-C is [facility]. kb 19:01 Jerry Rodriguez MD is Attending Physician. kb 19:17 Triage completed. ap3 19:19 Arm band placed on right wrist. ap3 20:49 Inserted saline lock: 20 gauge in right antecubital area, using aseptic technique. rv1 Blood collected. Flushed with 10 mL NS. 20:49 SARS-COV-2 Antigen Rapid Sent. rv1 20:49 Strep Sent. rv1 20:49 Flu Sent. rv1 20:49 BMP Sent. rv1 20:49 CBC with Diff Sent. rv1 21:49 Jose Bowman, RN is Primary Nurse. jb4 23:35 Patient has correct armband on for positive identification. Call light in reach. Side jb4 rails up X 1. Provided Education on: discharge instructions.. 23:35 No provider procedures requiring assistance completed. IV discontinued, intact, jb4 bleeding controlled, No redness/swelling at site. Pressure dressing applied. Administered Medications: 21:15 Drug: Ondansetron IVP 4 mg IVP once; over 2 minutes Route: IVP; Site: left antecubital; jb4 21:16 Drug: NS 0.9% IV 1000 ml IV at 1000 ml once Route: IV; Rate: 1000 ml; Site: left jb4 antecubital; 21:50 Drug: Ibuprofen PO 800 mg PO once Route: PO; jb4 23:35 Drug: Amoxicillin-Clavulanate PO 875 mg PO once Route: PO; jb4 Medication: 23:35 VIS not applicable for this client. jb4 Outcome: 22:59 Discharge ordered by . kb 23:35 Discharged to home ambulatory, jb4 23:35 Condition: stable 23:35 Discharge instructions given to patient, Instructed on discharge instructions, follow up and referral plans. medication usage, Demonstrated understanding of instructions, follow-up care, medications, Prescriptions given X 2, 23:37 Patient left the ED. jb4 Signatures: Nai Nelson FNP-C NDT INSPECTOR-Ckb Garcia, Jayla, Reg Reg Jose Bowman, RN RN jb4 Nannette Esparza RN RN ap3 Mariana Mccall rv1 Corrections: (The following items were deleted from the chart) 20:49 20:17 Missed attempt(s): 20 gauge in left antecubital area. Bleeding controlled, band rv1 aid applied, catheter tip intact. rv1
[2024-05-25] MEDS ORDERED: AMOX/K CLAV 875 MG TAB ONE (23:29)
[2024-05-26 06:38] VITALS: O2SAT 98
[2024-05-26 06:39] VITALS: BP 128/82; TEMP 97.2
== END 2024-05-25 23:37 | disposition home or self-care (01) ==
LOC: ER 18:54
DX: J02.0 Streptococcal pharyngitis (principal); Z11.52 Encounter for screening for COVID-19
CPT/HCPCS: 85025; 80048; 36415; 87081; 87804 ×2; 87811; J2405; J7030; 96374; 99284

== ENCOUNTER 2024-07-30 01:03 | Emergency (ER) | payer OTHER ==
--- OUTSIDE RECORDS SUMMARY | 2024-07-30 01:10 | XMS REPORT | Continuity of Care Document ---
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 00:00:[address] [facility] HPV9 2023-02-21 00:00:[address] [facility] HPV9 2023-02-21 00:00:[address] [facility] HPV9 2023-02-21 00:00:[address] [facility] HPV9 2023-02-21 00:00:[address] [facility] HPV9 2023-02-21 00:00:[address] [facility] HPV9 2023-02-21 00:00:[address] [facility] TDAP 2017-10-16 00:00:[address] [facility] Influenza Virus Vaccine Quad IM 3+ YRS 2017-10-16 00:00:[address] [facility] Tdap 2017-10-16 00:00:[address] [facility] Influenza Virus Vaccine Quad IM 3+ YRS 2017-10-16 00:00:[address] [facility] TDAP 2017-10-16 00:00:[address] [facility] Influenza Virus Vaccine Quad IM 3+ YRS 2017-10-16 00:00:[address] [facility] Tdap 2017-10-16 00:00:[address] [facility] Influenza Virus Vaccine Quad IM 3+ YRS 2017-10-16 00:00:[address] [facility] Tdap 2017-10-16 00:00:[address] [facility] Influenza Virus Vaccine Quad IM 3+ YRS 2017-10-16 00:00:[address] [facility] Tdap 2017-10-16 00:00:[address] [facility] Influenza Virus Vaccine Quad IM 3+ YRS 2017-10-16 00:00:[address] [facility] TDAP 2017-10-16 00:00:[address] [facility] Influenza Virus Vaccine Quad IM 3+ YRS 2017-10-16 00:00:00 Completed TDAP 2017-10-16 00:00:[address] [facility] Influenza Virus Vaccine Quad IM 3+ YRS 2017-10-16 00:00:00 Completed Tdap 2017-10-16 00:00:[address] [facility] Influenza Virus Vaccine Quad IM 3+ YRS 2017-10-16 00:00:[address] [facility] TDAP 2017-10-16 00:00:[address] [facility] Influenza Virus Vaccine Quad IM 3+ YRS 2017-10-16 00:00:[address] [facility] TDAP 2017-10-16 00:00:[address] [facility] Influenza Virus Vaccine Quad IM 3+ YRS 2017-10-16 00:00:[address] [facility] TDAP 2017-10-16 00:00:[address] [facility] Influenza Virus Vaccine Quad IM 3+ YRS 2017-10-16 00:00:[address] [facility] Tdap 2017-10-16 00:00:00 Completed [facility] Influenza Virus Vaccine Quad IM 3+ YRS 2017-10-16 00:00:[address] [facility] TDAP 2017-10-16 00:00:00 Completed [facility] Influenza Virus Vaccine Quad IM 3+ YRS 2017-10-16 00:00:[address] [facility] TDAP 2017-10-16 00:00:[address] [facility] Influenza Virus Vaccine Quad IM 3+ YRS 2017-10-16 00:00:[address] [facility] TDAP 2017-10-16 00:00:00 Completed [facility] Influenza Virus Vaccine Quad IM 3+ YRS 2017-10-16 00:00:[address] [facility] Tdap 2017-10-16 00:00:[address] [facility] Influenza Virus Vaccine Quad IM 3+ YRS 2017-10-16 00:00:[address] [facility] TDAP 2017-10-16 00:00:[address] [facility] Influenza Virus Vaccine Quad IM 3+ YRS 2017-10-16 00:00:[address] [facility] TDAP 2017-10-16 00:00:00 Completed [facility] Influenza Virus Vaccine Quad IM 3+ YRS 2017-10-16 00:00:[address] [facility] TDAP 2017-10-16 00:00:00 Completed [facility] Influenza Virus Vaccine Quad IM 3+ YRS 2017-10-16 00:00:[address] [facility] TDAP 2017-10-16 00:00:00 Completed [facility] Influenza Virus Vaccine Quad IM 3+ YRS 2017-10-16 00:00:[address] [facility] TDAP 2017-10-16 00:00:00 Completed [facility] Influenza Virus Vaccine Quad IM 3+ YRS 2017-10-16 00:00:[address] [facility] TDAP 2017-10-16 00:00:00 Completed [facility] Influenza Virus Vaccine Quad IM 3+ YRS 2017-10-16 00:00:[address] [facility] Tdap 2017-10-16 00:00:00 Completed [facility] Influenza Virus Vaccine Quad IM 3+ YRS 2017-10-16 00:00:[address] [facility] TDAP 2017-10-16 00:00:[address] [facility] Influenza Virus Vaccine Quad IM 3+ YRS 2017-10-16 00:00:[address] [facility] TDAP 2017-10-16 00:00:[address] [facility] Influenza Virus Vaccine Quad IM 3+ YRS 2017-10-16 00:00:[address] [facility] TDAP 2017-10-16 00:00:[address] [facility] Influenza Virus Vaccine Quad IM 3+ YRS 2017-10-16 00:00:[address] [facility] TDAP 2017-10-16 00:00:[address] [facility] Influenza Virus Vaccine Quad IM 3+ YRS 2017-10-16 00:00:[address] [facility] TDAP 2017-10-16 00:00:[address] [facility] Influenza Virus Vaccine Quad IM 3+ YRS 2017-10-16 00:00:[address] [facility] Tdap 2017-10-16 00:00:[address] [facility] Influenza Virus Vaccine Quad IM 3+ YRS 2017-10-16 00:00:[address] [facility] TDAP 2017-10-16 00:00:[address] [facility] Influenza Virus Vaccine Quad IM 3+ YRS 2017-10-16 00:00:[address] [facility] TDAP 2017-10-16 00:00:[address] [facility] Influenza Virus Vaccine Quad IM 3+ YRS 2017-10-16 00:00:[address] [facility] TDAP 2017-10-16 00:00:[address] [facility] Influenza Virus Vaccine Quad IM 3+ YRS 2017-10-16 00:00:[address] [facility] TDAP 2017-10-16 00:00:[address] [facility] Influenza Virus Vaccine Quad IM 3+ YRS 2017-10-16 00:00:[address] [facility] TDAP 2017-10-16 00:00:[address] [facility] Influenza Virus Vaccine Quad IM 3+ YRS 2017-10-16 00:00:[address] [facility] TDAP 2017-10-16 00:00:00 Completed [facility] Influenza Virus Vaccine Quad IM 3+ YRS 2017-10-16 00:00:[address] [facility] TDAP 2017-10-16 00:00:[address] [facility] Influenza Virus Vaccine Quad IM 3+ YRS 2017-10-16 00:00:[address] [facility] TDAP 2017-10-16 00:00:[address] [facility] Influenza Virus Vaccine Quad IM 3+ YRS 2017-10-16 00:00:[address] [facility] Tdap 2017-10-16 00:00:[address] [facility] Influenza Virus Vaccine Quad IM 3+ YRS 2017-10-16 00:00:[address] [facility] TDAP 2017-10-16 00:00:[address] [facility] Influenza Virus Vaccine Quad IM 3+ YRS 2017-10-16 00:00:[address] [facility] TDAP 2017-10-16 00:00:[address] [facility] Influenza Virus Vaccine Quad IM 3+ YRS 2017-10-16 00:00:[address] [facility] TDAP 2017-10-16 00:00:[address] [facility] Influenza Virus Vaccine Quad IM 3+ YRS 2017-10-16 00:00:[address] [facility] TDAP 2017-10-16 00:00:[address] [facility] Influenza Virus Vaccine Quad IM 3+ YRS 2017-10-16 00:00:[address] [facility] TDAP 2017-10-16 00:00:[address] [facility] Influenza Virus Vaccine Quad IM 3+ YRS 2017-10-16 00:00:[address] [facility] Tdap 2017-10-16 00:00:[address] [facility] Influenza Virus Vaccine Quad IM 3+ YRS 2017-10-16 00:00:[address] [facility] TDAP 2017-10-16 00:00:[address] [facility] Influenza Virus Vaccine Quad IM 3+ YRS 2017-10-16 00:00:[address] [facility] TDAP 2017-10-16 00:00:[address] [facility] Influenza Virus Vaccine Quad IM 3+ YRS 2017-10-16 00:00:[address] [facility] TDAP 2017-10-16 00:00:[address] [facility] Influenza Virus Vaccine Quad IM 3+ YRS 2017-10-16 00:00:[address] [facility] TDAP 2017-10-16 00:00:[address] [facility] Influenza Virus Vaccine Quad IM 3+ YRS 2017-10-16 00:00:[address] [facility] TDAP 2017-10-16 00:00:[address] [facility] Influenza Virus Vaccine Quad IM 3+ YRS 2017-10-16 00:00:[address] [facility] TDAP 2017-10-16 00:00:[address] [facility] Influenza Virus Vaccine Quad IM 3+ YRS 2017-10-16 00:00:[address] [facility] TDAP 2017-10-16 00:00:[address] [facility] Influenza Virus Vaccine Quad IM 3+ YRS 2017-10-16 00:00:[address] [facility] TDAP 2017-10-16 00:00:[address] [facility] Influenza Virus Vaccine Quad IM 3+ YRS 2017-10-16 00:00:[address] [facility] TDAP 2016-01-18 00:00:[address] [facility] Tdap 2016-01-18 00:00:[address] [facility] TDAP 2016-01-18 00:00:[address] [facility] TDAP 2016-01-18 00:00:[address] [facility] TDAP 2016-01-18 00:00:[address] [facility] TDAP 2016-01-18 00:00:[address] [facility] TDAP 2016-01-18 00:00:[address] [facility] Tdap 2016-01-18 00:00:[address] [facility] TDAP 2016-01-18 00:00:[address] [facility] TDAP 2016-01-18 00:00:[address] [facility] TDAP 2016-01-18 00:00:[address] [facility] TDAP 2016-01-18 00:00:[address] [facility] TDAP 2016-01-18 00:00:[address] [facility] TDAP 2016-01-18 00:00:[address] [facility] TDAP 2016-01-18 00:00:[address] [facility] TDAP 2016-01-18 00:00:00 Completed [facility] TDAP 2016-01-18 00:00:[address] [facility] Tdap 2016-01-18 00:00:[address] [facility] TDAP 2016-01-18 00:00:[address] [facility] Tdap 2016-01-18 00:00:[address] [facility] Tdap 2016-01-18 00:00:[address] [facility] Tdap 2016-01-18 00:00:[address] [facility] TDAP 2016-01-18 00:00:[address] [facility] TDAP 2016-01-18 00:00:[address] [facility] Tdap 2016-01-18 00:00:[address] [facility] TDAP 2016-01-18 00:00:[address] [facility] TDAP 2016-01-18 00:00:[address] [facility] TDAP 2016-01-18 00:00:[address] [facility] Tdap 2016-01-18 00:00:[address] [facility] TDAP 2016-01-18 00:00:[address] [facility] TDAP 2016-01-18 00:00:[address] [facility] TDAP 2016-01-18 00:00:[address] [facility] Tdap 2016-01-18 00:00:[address] [facility] TDAP 2016-01-18 00:00:[address] [facility] TDAP 2016-01-18 00:00:[address] [facility] TDAP 2016-01-18 00:00:00 Completed [facility] TDAP 2016-01-18 00:00:00 Completed [facility] TDAP 2016-01-18 00:00:00 Completed [facility] Tdap 2016-01-18 00:00:00 Completed [facility] TDAP 2016-01-18 00:00:[address] [facility] TDAP 2016-01-18 00:00:[address] [facility] TDAP 2016-01-18 00:00:00 Completed [facility] TDAP 2016-01-18 00:00:00 Completed [facility] TDAP 2016-01-18 00:00:[address] [facility] Tdap 2016-01-18 00:00:[address] [facility] TDAP 2016-01-18 00:00:[address] [facility] TDAP 2016-01-18 00:00:[address] [facility] TDAP 2016-01-18 00:00:[address] [facility] TDAP 2016-01-18 00:00:[address] [facility] TDAP 2016-01-18 00:00:[address] [facility] TDAP 2016-01-18 00:00:[address] [facility] TDAP 2016-01-18 00:00:[address] [facility] TDAP 2016-01-18 00:00:[address] [facility] TDAP 2014-05-18 00:00:[address] [facility] Tdap 2014-05-18 00:00:[address] [facility] TDAP 2014-05-18 00:00:[address] [facility] TDAP 2014-05-18 00:00:[address] [facility] TDAP 2014-05-18 00:00:[address] [facility] TDAP 2014-05-18 00:00:[address] [facility] Tdap 2014-05-18 00:00:[address] [facility] TDAP 2014-05-18 00:00:[address] [facility] TDAP 2014-05-18 00:00:00 Completed [facility] TDAP 2014-05-18 00:00:00 Completed [facility] TDAP 2014-05-18 00:00:00 Completed [facility] TDAP 2014-05-18 00:00:00 Completed [facility] TDAP 2014-05-18 00:00:00 Completed [facility] TDAP 2014-05-18 00:00:00 Completed [facility] TDAP 2014-05-18 00:00:00 Completed [facility] TDAP 2014-05-18 00:00:00 Completed [facility] TDAP 2014-05-18 00:00:00 Completed [facility] Tdap 2014-05-18 00:00:[address] [facility] TDAP 2014-05-18 00:00:[address] [facility] Tdap 2014-05-18 00:00:[address] [facility] Tdap 2014-05-18 00:00:[address] [facility] Tdap 2014-05-18 00:00:[address] [facility] TDAP 2014-05-18 00:00:[address] [facility] TDAP 2014-05-18 00:00:[address] [facility] Tdap 2014-05-18 00:00:[address] [facility] Tdap 2014-05-18 00:00:[address] [facility] TDAP 2014-05-18 00:00:[address] [facility] TDAP 2014-05-18 00:00:[address] [facility] TDAP 2014-05-18 00:00:[address] [facility] Tdap 2014-05-18 00:00:[address] [facility] TDAP 2014-05-18 00:00:[address] [facility] TDAP 2014-05-18 00:00:[address] [facility] Tdap 2014-05-18 00:00:[address] [facility] TDAP 2014-05-18 00:00:[address] [facility] TDAP 2014-05-18 00:00:[address] [facility] TDAP 2014-05-18 00:00:[address] [facility] TDAP 2014-05-18 00:00:00 Completed [facility] TDAP 2014-05-18 00:00:00 Completed [facility] Tdap 2014-05-18 00:00:00 Completed [facility] TDAP 2014-05-18 00:00:[address] [facility] TDAP 2014-05-18 00:00:00 Completed [facility] TDAP 2014-05-18 00:00:00 Completed [facility] TDAP 2014-05-18 00:00:00 Completed [facility] TDAP 2014-05-18 00:00:[address] [facility] TDAP 2014-05-18 00:00:[address] [facility] Tdap 2014-05-18 00:00:[address] [facility] TDAP 2014-05-18 00:00:[address] [facility] TDAP 2014-05-18 00:00:[address] [facility] TDAP 2014-05-18 00:00:[address] [facility] TDAP 2014-05-18 00:00:[address] [facility] TDAP 2014-05-18 00:00:[address] [facility] TDAP 2014-05-18 00:00:[address] [facility] TDAP 2014-05-18 00:00:[address] [facility] TDAP 2014-05-18 00:00:[address] [facility] Pneumococcal Polysaccharide, PPSV23 (PNEUMOVAX) 2008-05-11 00:00:[address] [facility] Pneumococcal Polysaccharide, PPSV23 (PNEUMOVAX) 2008-05-11 00:00:[address] [facility] Pneumococcal Polysaccharide, PPSV23 (PNEUMOVAX) 2008-05-11 00:00:[address] [facility] Pneumococcal Polysaccharide, PPSV23 (PNEUMOVAX) 2008-05-11 00:00:[address] [facility] Pneumococcal Polysaccharide, PPSV23 (PNEUMOVAX) 2008-05-11 00:00:[address] [facility] Pneumococcal Polysaccharide, PPSV23 (PNEUMOVAX) 2008-05-11 00:00:[address] [facility] Pneumococcal Polysaccharide, PPSV23 (PNEUMOVAX) 2008-05-11 00:00:[address] [facility] Pneumococcal Polysaccharide, PPSV23 (PNEUMOVAX) 2008-05-11 00:00:[address] [facility] Pneumococcal Polysaccharide, PPSV23 (PNEUMOVAX) 2008-05-11 00:00:[address] [facility] Pneumococcal Polysaccharide, PPSV23 (PNEUMOVAX) 2008-05-11 00:00:[address] [facility] Pneumococcal Polysaccharide, PPSV23 (PNEUMOVAX) 2008-05-11 00:00:[address] [facility] Pneumococcal Polysaccharide, PPSV23 (PNEUMOVAX) 2008-05-11 00:00:[address] [facility] Pneumococcal Polysaccharide, PPSV23 (PNEUMOVAX) 2008-05-11 00:00:[address] [facility] Pneumococcal Polysaccharide, PPSV23 (PNEUMOVAX) 2008-05-11 00:00:[address] [facility] Pneumococcal Polysaccharide, PPSV23 (PNEUMOVAX) 2008-05-11 00:00:[address] [facility] Pneumococcal Polysaccharide, PPSV23 (PNEUMOVAX) 2008-05-11 00:00:[address] [facility] Pneumococcal Polysaccharide, PPSV23 (PNEUMOVAX) 2008-05-11 00:00:[address] [facility] Pneumococcal Polysaccharide, PPSV23 (PNEUMOVAX) 2008-05-11 00:00:[address] [facility] Pneumococcal Polysaccharide, PPSV23 (PNEUMOVAX) 2008-05-11 00:00:[address] [facility] Pneumococcal Polysaccharide, PPSV23 (PNEUMOVAX) 2008-05-11 00:00:[address] [facility] Pneumococcal Polysaccharide, PPSV23 (PNEUMOVAX) 2008-05-11 00:00:[address] [facility] Pneumococcal Polysaccharide, PPSV23 (PNEUMOVAX) 2008-05-11 00:00:[address] [facility] Pneumococcal Polysaccharide, PPSV23 (PNEUMOVAX) 2008-05-11 00:00:[address] [facility] Pneumococcal Polysaccharide, PPSV23 (PNEUMOVAX) 2008-05-11 00:00:[address] [facility] Pneumococcal Polysaccharide, PPSV23 (PNEUMOVAX) 2008-05-11 00:00:[address] [facility] Pneumococcal Polysaccharide, PPSV23 (PNEUMOVAX) 2008-05-11 00:00:[address] [facility] Pneumococcal Polysaccharide, PPSV23 (PNEUMOVAX) 2008-05-11 00:00:[address] [facility] Pneumococcal Polysaccharide, PPSV23 (PNEUMOVAX) 2008-05-11 00:00:[address] [facility] Pneumococcal Polysaccharide, PPSV23 (PNEUMOVAX) 2008-05-11 00:00:[address] [facility] Pneumococcal Polysaccharide, PPSV23 (PNEUMOVAX) 2008-05-11 00:00:[address] [facility] Pneumococcal Polysaccharide, PPSV23 (PNEUMOVAX) 2008-05-11 00:00:[address] [facility] Pneumococcal Polysaccharide, PPSV23 (PNEUMOVAX) 2008-05-11 00:00:[address] [facility] Pneumococcal Polysaccharide, PPSV23 (PNEUMOVAX) 2008-05-11 00:00:[address] [facility] Pneumococcal Polysaccharide, PPSV23 (PNEUMOVAX) 2008-05-11 00:00:[address] [facility] Pneumococcal Polysaccharide, PPSV23 (PNEUMOVAX) 2008-05-11 00:00:[address] [facility] Pneumococcal Polysaccharide, PPSV23 (PNEUMOVAX) 2008-05-11 00:00:[address] [facility] Pneumococcal Polysaccharide, PPSV23 (PNEUMOVAX) 2008-05-11 00:00:[address] [facility] Pneumococcal Polysaccharide, PPSV23 (PNEUMOVAX) 2008-05-11 00:00:[address] [facility] Pneumococcal Polysaccharide, PPSV23 (PNEUMOVAX) 2008-05-11 00:00:[address] [facility] Pneumococcal Polysaccharide, PPSV23 (PNEUMOVAX) 2008-05-11 00:00:[address] [facility] Pneumococcal Polysaccharide, PPSV23 (PNEUMOVAX) 2008-05-11 00:00:[address] [facility] Pneumococcal Polysaccharide, PPSV23 (PNEUMOVAX) 2008-05-11 00:00:[address] [facility] Pneumococcal Polysaccharide, PPSV23 (PNEUMOVAX) 2008-05-11 00:00:[address] [facility] Pneumococcal Polysaccharide, PPSV23 (PNEUMOVAX) 2008-05-11 00:00:[address] [facility] Pneumococcal Polysaccharide, PPSV23 (PNEUMOVAX) 2008-05-11 00:00:[address] [facility] Pneumococcal Polysaccharide, PPSV23 (PNEUMOVAX) 2008-05-11 00:00:[address] [facility] Pneumococcal Polysaccharide, PPSV23 (PNEUMOVAX) 2008-05-11 00:00:[address] [facility] Pneumococcal Polysaccharide, PPSV23 (PNEUMOVAX) 2008-05-11 00:00:[address] [facility] Pneumococcal Polysaccharide, PPSV23 (PNEUMOVAX) 2008-05-11 00:00:[address] [facility] Pneumococcal Polysaccharide, PPSV23 (PNEUMOVAX) 2008-05-11 00:00:[address] [facility] Pneumococcal Polysaccharide, PPSV23 (PNEUMOVAX) 2008-05-11 00:00:[address] [facility] Pneumococcal Polysaccharide, PPSV23 (PNEUMOVAX) 2008-05-11 00:00:[address] [facility] Pneumococcal Polysaccharide, PPSV23 (PNEUMOVAX) 2008-05-11 00:00:[address] [facility] Pneumococcal Polysaccharide, PPSV23 (PNEUMOVAX) 2008-05-11 00:00:[address] [facility] Pneumococcal Polysaccharide, PPSV23 (PNEUMOVAX) Unknown Completed [facility] TDAP Unknown Completed [facility] Influenza Virus Vaccine Quad IM 3+ YRS Unknown Completed [facility] HPV9 [address] [facility] Pneumococcal Polysaccharide, PPSV23 (PNEUMOVAX) Unknown Completed [facility] TDAP Unknown Completed [facility] Influenza Virus Vaccine Quad IM 3+ YRS Unknown Completed [facility] Pneumococcal Polysaccharide, PPSV23 (PNEUMOVAX) Unknown Completed [facility] TDAP Unknown Completed [facility] Influenza Virus Vaccine Quad IM 3+ YRS Unknown Completed [facility] Pneumococcal Polysaccharide, PPSV23 (PNEUMOVAX) Unknown Completed [facility] TDAP Unknown Completed [facility] Influenza Virus Vaccine Quad IM 3+ YRS Unknown Completed [facility] Pneumococcal Polysaccharide, PPSV23 (PNEUMOVAX) Unknown Completed [facility] TDAP Unknown Completed [facility] Influenza Virus Vaccine Quad IM 3+ YRS Unknown Completed [facility] Pneumococcal Polysaccharide, PPSV23 (PNEUMOVAX) Unknown Completed [facility] TDAP Unknown Completed [facility] Influenza Virus Vaccine Quad IM 3+ YRS Unknown Completed [facility] Pneumococcal Polysaccharide, PPSV23 (PNEUMOVAX) Unknown Completed [facility] TDAP Unknown Completed [facility] Influenza Virus Vaccine Quad IM 3+ YRS Unknown Completed [facility] Pneumococcal Polysaccharide, PPSV23 (PNEUMOVAX) Unknown Completed [facility] TDAP Unknown Completed [facility] Influenza Virus Vaccine Quad IM 3+ YRS Unknown Completed [facility] Pneumococcal Polysaccharide, PPSV23 (PNEUMOVAX) Unknown Completed [facility] TDAP Unknown Completed [facility] Influenza Virus Vaccine Quad IM 3+ YRS Unknown Completed [facility] Pneumococcal Polysaccharide, PPSV23 (PNEUMOVAX) [facility] TDAP Unknown Completed [facility] Influenza Virus Vaccine Quad IM 3+ YRS Unknown Completed [facility] Pneumococcal Polysaccharide, PPSV23 (PNEUMOVAX) Unknown Completed [facility] TDAP Unknown Completed [facility] Influenza Virus Vaccine Quad IM 3+ YRS Unknown Completed [facility] Pneumococcal Polysaccharide, PPSV23 (PNEUMOVAX) Unknown [facility] TDAP Unknown Completed [facility] Influenza Virus Vaccine Quad IM 3+ YRS Unknown Completed [facility] Pneumococcal Polysaccharide, PPSV23 (PNEUMOVAX) Unknown Completed [facility] TDAP Unknown Completed [facility] Influenza Virus Vaccine Quad IM 3+ YRS Unknown Completed [facility] Pneumococcal Polysaccharide, PPSV23 (PNEUMOVAX) Unknown Completed [facility] TDAP Unknown Completed [facility] Influenza Virus Vaccine Quad IM 3+ YRS Unknown Completed [facility] HPV9 [address] Com[address] [facility] Pneumococcal Polysaccharide, PPSV23 (PNEUMOVAX) Unknown Completed [facility] TDAP Unknown Completed [facility] Influenza Virus Vaccine Quad IM 3+ YRS Unknown Completed [facility] HPV9 [address] Com[address] [facility] Pneumococcal Polysaccharide, PPSV23 (PNEUMOVAX) Unknown Completed [facility] Influenza Virus Vaccine Quad IM 3+ YRS Unknown Completed [facility] HPV9 Unknown Completed [facility] TDAP Unknown Completed [facility] Pneumococcal Polysaccharide, PPSV23 (PNEUMOVAX) Unknown Completed [facility] TDAP Unknown Completed [facility] Influenza Virus Vaccine Quad IM 3+ YRS Unknown Completed [facility] HPV9 Unknown Completed [facility] Pneumococcal Polysaccharide, PPSV23 (PNEUMOVAX) Unknown [facility] Influenza Virus Vaccine Quad IM 3+ YRS Unknown Completed [facility] HPV9 Unknown Completed [facility] Pneumococcal Polysaccharide, PPSV23 (PNEUMOVAX) Unknown Completed [facility] Influenza Virus Vaccine Quad IM 3+ YRS Unknown Completed [facility] HPV9 Unknown Completed [facility] Pneumococcal Polysaccharide, PPSV23 (PNEUMOVAX) Unknown Completed [facility] TDAP Unknown Completed [facility] Influenza Virus Vaccine Quad IM 3+ YRS Unknown Completed [facility] HPV9 [address] Com[address] [facility] TDAP Unknown Completed [facility] TDAP Unknown Completed [facility] Pneumococcal Polysaccharide, PPSV23 (PNEUMOVAX) Unknown Completed [facility] TDAP Unknown Completed [facility] Influenza Virus Vaccine Quad IM 3+ YRS Unknown Completed [facility] HPV9 Unknown Completed [facility] Vital Signs Vital Name Observation Time Observation Value Comments S ource Systolic blood pressure 2024-07-27 16:08:00 130 mm[Hg] [facility] Diastolic blood pressure 2024-07-27 16:08:00 92 mm[Hg] [facility] Heart rate 2024-07-27 16:03:00 81 /min [facility] Body temperature 2024-07-27 16:03:[address] [facility] Respiratory rate 2024-07-27 16:03:00 18 /min [facility] Body height 2024-07-27 16:03:00 154.9 cm [facility] Body weight 2024-07-27 16:03:00 125.448 kg [facility] BMI 2024-07-27 16:03:00 52.26 kg/m2 [facility] Systolic blood pressure 2024-07-13 23:22:00 134 mm[Hg] [facility] Diastolic blood pressure 2024-07-13 23:22:00 83 mm[Hg] [facility] Heart rate 2024-07-13 23:22:00 81 /min [facility] Body temperature 2024-07-13 23:22:[address] [facility] Respiratory rate 2024-07-13 23:22:00 18 /min [facility] Body weight 2024-07-13 23:22:00 124.875 kg [facility] BMI 2024-07-13 23:22:00 52.02 kg/m2 [facility] Oxygen saturation in Arterial blood by Pulse oximetry 2024-07-13 23:22:00 96 /min [facility] Systolic blood pressure 2024-04-05 16:16:00 137 mm[Hg] [facility] Diastolic blood pressure 2024-04-05 16:16:00 88 mm[Hg] [facility] Heart rate 2024-04-05 16:15:00 82 /min [facility] Body temperature 2024-04-05 16:15:[address] [facility] Respiratory rate 2024-04-05 16:15:00 16 /min [facility] Body height 2024-04-05 16:15:00 154.9 cm [facility] Body weight 2024-04-05 16:15:00 125.646 kg [facility] BMI 2024-04-05 16:15:00 52.34 kg/m2 [facility] Oxygen saturation in Arterial blood by Pulse oximetry 2024-04-05 16:15:00 97 /min [facility] Systolic blood pressure 2024-02-02 15:44:00 114 mm[Hg] [facility] Diastolic blood pressure 2024-02-02 15:44:00 63 mm[Hg] [facility] Heart rate 2024-02-02 15:44:00 70 /min [facility] Body temperature 2024-02-02 15:44:[address] [facility] Respiratory rate 2024-02-02 15:44:00 17 /min [facility] Body weight 2024-02-02 15:44:00 123.378 kg [facility] BMI 2024-02-02 15:44:00 51.39 kg/m2 [facility] Oxygen saturation in Arterial blood by Pulse oximetry 2024-02-02 15:44:00 97 /min [facility] Systolic blood pressure 2023-06-28 23:34:00 141 mm[Hg] [facility] Diastolic blood pressure 2023-06-28 23:34:00 86 mm[Hg] [facility] Heart rate 2023-06-28 23:33:00 107 /min Un[facility] Body temperature 2023-06-28 23:33:[address] [facility] Respiratory rate 2023-06-28 23:33:00 18 /min [facility] Body height 2023-06-28 23:33:00 154.9 cm [facility] Body weight 2023-06-28 23:33:00 121.972 kg [facility] BMI 2023-06-28 23:33:00 50.81 kg/m2 [facility] Oxygen saturation in Arterial blood by Pulse oximetry 2023-06-28 23:33:00 98 /min [facility] Systolic blood pressure 2023-03-07 16:14:00 153 mm[Hg] [facility] Diastolic blood pressure 2023-03-07 16:14:00 89 mm[Hg] [facility] Heart rate 2023-03-07 16:13:00 79 /min Un[facility] Body temperature 2023-03-07 16:13:[address] [facility] Respiratory rate 2023-03-07 16:13:00 16 /min [facility] Body weight 2023-03-07 16:13:00 123.378 kg [facility] BMI 2023-03-07 16:13:00 51.39 kg/m2 [facility] Oxygen saturation in Arterial blood by Pulse oximetry 2023-03-07 16:13:00 98 /min [facility] Systolic blood pressure 2023-02-21 13:28:00 128 mm[Hg] [facility] Diastolic blood pressure 2023-02-21 13:28:00 75 mm[Hg] [facility] Heart rate 2023-02-21 13:28:00 65 /min Un[facility] Body temperature 2023-02-21 13:28:[address] [facility] Respiratory rate 2023-02-21 13:28:00 18 /min [facility] Body height 2023-02-21 13:28:00 154.9 cm [facility] Body weight 2023-02-21 13:28:00 122.244 kg [facility] BMI 2023-02-21 13:28:00 50.92 kg/m2 [facility] Systolic blood pressure 2022-11-24 20:34:00 155 mm[Hg] [facility] Diastolic blood pressure 2022-11-24 20:34:00 87 mm[Hg] [facility] Heart rate 2022-11-24 20:22:00 73 /min Un[facility] Body temperature 2022-11-24 20:22:[address] [facility] Respiratory rate 2022-11-24 20:22:00 20 /min [facility] Body height 2022-11-24 20:22:00 154.9 cm [facility] Body weight 2022-11-24 20:22:00 123.605 kg [facility] BMI 2022-11-24 20:22:00 51.49 kg/m2 [facility] Oxygen saturation in Arterial blood by Pulse oximetry 2022-11-24 20:22:00 98 /min [facility] Systolic blood pressure 2022-07-17 15:56:00 137 mm[Hg] [facility] Diastolic blood pressure 2022-07-17 15:56:00 79 mm[Hg] [facility] Heart rate 2022-07-17 15:56:00 73 /min [facility] Body temperature 2022-07-17 15:56:[address] [facility] Respiratory rate 2022-07-17 15:56:00 18 /min [facility] Body height 2022-07-17 15:56:00 154.9 cm [facility] Body weight 2022-07-17 15:56:00 123.242 kg [facility] BMI 2022-07-17 15:56:00 51.34 kg/m2 [facility] Oxygen saturation in Arterial blood by Pulse oximetry 2022-07-17 15:56:00 95 /min [facility] Systolic blood pressure 2022-06-13 00:43:00 152 mm[Hg] [facility] Diastolic blood pressure 2022-06-13 00:43:00 98 mm[Hg] [facility] Heart rate 2022-06-13 00:41:00 90 /min [facility] Body [facility] 2022-06-13 00:41:[address] [facility] Respiratory rate 2022-06-13 00:41:00 16 /min [facility] Body height 2022-06-13 00:41:00 154.9 cm [facility] Body weight 2022-06-13 00:41:00 126.508 kg [facility] BMI 2022-06-13 00:41:00 52.70 kg/m2 [facility] Oxygen saturation in Arterial blood by Pulse oximetry 2022-06-13 00:41:00 97 /min [facility] Systolic blood pressure 2022-04-14 18:03:00 126 mm[Hg] [facility] Diastolic blood pressure 2022-04-14 18:03:00 87 mm[Hg] [facility] Heart rate 2022-04-14 18:03:00 83 /min [facility] Body temperature 2022-04-14 18:03:[address] [facility] Respiratory rate 2022-04-14 18:03:00 18 /min [facility] Body height 2022-04-14 18:03:00 154.9 cm [facility] Body weight 2022-04-14 18:03:00 126.508 kg [facility] BMI 2022-04-14 18:03:00 52.70 kg[facility]2 [facility] O[facility] in Arterial blood by Pulse oximetry 2022-04-14 18:03:00 97 /min [facility] Body weight 2022-04-03 18:36:00 126.554 kg [facility] BMI 2022-04-03 18:36:00 52.72 [facility]2 [facility] O[facility] saturation in Arterial blood by Pulse oximetry 2022-04-03 18:36:00 97 /min [facility] Systolic blood pressure 2022-04-03 18:36:00 146 mm[Hg] [facility] Diastolic blood pressure 2022-04-03 18:36:00 86 mm[Hg] [facility] Heart rate 2022-04-03 18:36:00 84 /min Un[facility] Body temperature 2022-04-03 18:36:[address] [facility] Respiratory rate 2022-04-03 18:36:00 18 /min [facility] Body height 2022-04-03 18:36:00 154.9 cm [facility] Systolic blood pressure 2022-03-19 14:01:00 154 mm[Hg] [facility] Diastolic blood pressure 2022-03-19 14:01:00 82 mm[Hg] [facility] Heart rate 2022-03-19 14:01:00 61 /min Un[facility] Body temperature 2022-03-19 14:01:[address] [facility] Respiratory rate 2022-03-19 14:01:00 18 /min [facility] Body height 2022-03-19 14:01:00 154.9 cm [facility] Body weight 2022-03-19 14:01:00 124.739 kg [facility] BMI 2022-03-19 14:01:00 51.96 kg/m2 [facility] Oxygen saturation in Arterial blood by Pulse oximetry 2022-03-19 14:01:00 100 /min [facility] Systolic blood pressure 2021-10-01 18:26:00 111 mm[Hg] [facility] Diastolic blood pressure 2021-10-01 18:26:00 76 mm[Hg] [facility] Heart rate 2021-10-01 18:26:00 103 /min [facility] Body temperature 2021-10-01 18:26:[address] [facility] Respiratory rate 2021-10-01 18:26:00 16 /min [facility] Body height 2021-10-01 18:26:00 154.9 cm [facility] Body weight 2021-10-01 18:26:00 129.048 kg [facility] BMI 2021-10-01 18:26:00 53.76 kg/m2 [facility] Oxygen saturation in Arterial blood by Pulse oximetry 2021-10-01 18:26:00 100 /min [facility] Heart rate 2020-08-04 21:50:00 74 /min [facility] Respiratory rate 2020-08-04 21:50:00 23 /min [facility] Oxygen saturation in Arterial blood by Pulse oximetry 2020-08-04 21:50:00 95 /min [facility] Systolic blood pressure 2020-08-04 21:35:00 106 mm[Hg] [facility] Diastolic blood pressure 2020-08-04 21:35:00 63 mm[Hg] [facility] Body temperature 2020-08-04 20:49:[address] [facility] Body height 2020-08-04 18:08:00 154.9 cm [facility] Body weight 2020-08-04 18:08:00 124.739 kg [facility] BMI 2020-08-04 18:08:00 51.96 kg/m2 [facility] Heart rate 2020-08-04 21:50:00 74 /min Un[facility] Respiratory rate 2020-08-04 21:50:00 23 /min [facility] Oxygen saturation in Arterial blood by Pulse oximetry 2020-08-04 21:50:00 95 /min [facility] Systolic blood pressure 2020-08-04 21:35:00 106 mm[Hg] [facility] Diastolic blood pressure 2020-08-04 21:35:00 63 mm[Hg] [facility] Body temperature 2020-08-04 20:49:[address] [facility] Body height 2020-08-04 18:08:00 154.9 cm [facility] Body weight 2020-08-04 18:08:00 124.739 kg [facility] BMI 2020-08-04 18:08:00 51.96 kg/m2 [facility] Systolic blood pressure 2020-06-05 18:07:00 123 mm[Hg] [facility] Diastolic blood pressure 2020-06-05 18:07:00 75 mm[Hg] [facility] Heart rate 2020-06-05 18:07:00 70 /min [facility] Body temperature 2020-06-05 18:07:[address] [facility] Respiratory rate 2020-06-05 18:07:00 16 /min [facility] Body height 2020-06-05 18:07:00 156.2 cm [facility] Body weight 2020-06-05 18:07:00 129.91 kg [facility] BMI 2020-06-05 18:07:00 53.24 kg/m2 [facility] Body temperature 2020-05-31 20:10:[address] [facility] Body weight 2020-05-31 20:10:00 128.822 kg [facility] BMI 2020-05-31 20:10:00 53.66 kg/m2 [facility] Systolic blood pressure 2020-04-06 18:35:00 138 mm[Hg] [facility] Diastolic blood pressure 2020-04-06 18:35:00 83 mm[Hg] [facility] Heart rate 2020-04-06 18:35:00 65 /min Un[facility] Respiratory rate 2020-04-06 18:35:00 18 /min [facility] Body height 2020-04-06 18:35:00 154.9 [facility] weight 2020-04-06 18:35:00 122.018 kg [facility] BMI 2020-04-06 18:35:00 50.83 kg/m2 [facility] Systolic blood pressure 2020-03-16 19:12:00 120 mm[Hg] [facility] Diastolic blood pressure 2020-03-16 19:12:00 80 mm[Hg] [facility] Body height 2020-03-16 19:12:00 154.9 [facility] Body weight 2020-03-16 19:12:00 122.018 kg [facility] BMI 2020-03-16 19:12:00 50.83 kg/m2 [facility] Body height 2019-12-23 16:00:00 154.9 cm [facility] Body weight 2019-12-23 16:00:00 122.018 kg [facility] BMI 2019-12-23 16:00:00 50.83 kg/m2 [facility] Procedures Procedure Date / Time Performed Performing Clinician Source TOTAL BETA HCG ASSAY 2024-07-27 17:13:[address] [facility] HIV 1/2 AG-AB WITH REFLEX 2024-07-27 17:13:[address] [facility] POCT URINALYSIS W/O SPECIFIC GRAVITY 2024-07-27 16:35:[address] [facility] GARDASIL 9 (HPV 9V) VACCINE 2024-07-27 16:28:[address] [facility] POCT TEST 2024-07-27 16:19:[address] [facility] POCT MOLECULAR STREP 2024-07-13 23:28:[address] [facility] POCT SARS-COV-2 ANTIGEN (BINAX NOW) 2024-04-05 16:28:[address] [facility] POCT MOLECULAR FLU 2024-04-05 16:16:00 Unknown, Attend ing [facility] POCT MOLECULAR STREP 2024-04-05 [facility]:13[facility] 2024-02-02 15:55:00 [facility] SARS-COV-2 ANTIGEN (BINAX NOW) 2023-06-28 23:38:[address] [facility] POCT MOLECULAR STREP 2023-03-07 16:19:00 Unknown, Attannie goncalves [facility] URINE CULTURE 2023-02-21 14:14:[address] [facility] GC & CHLAMYDIA AMPLIFIED ASSAY 2023-02-21 14:14:[address] [facility] HIV 1/2 AG-AB WITH REFLEX 2023-02-21 14:14:[address] [facility] HIGH RISK HPV-THIN PREP 2023-02-21 14:14:[address] [facility] TRICHOMONAS AMPLIFIED ASSAY 2023-02-21 14:14:[address] [facility] PAP SMEAR-LIQUID BASED-CP 2023-02-21 14:14:[address] [facility] SYPHILIS IGG/IGM 2023-02-21 14:14:[address] [facility] GARDASIL 9 (HPV 9V) VACCINE 2023-02-21 13:56:[address] [facility] NO SHOW OR MISSED APPOINTMENT POLICY ACKNOWLEDGEMENT 2023-02-21 12:59:00 Doctor Unassigned, [place] [facility] ASSIGNMENT OF BENEFITS 2022-11-24 20:15:38 Docto r Unassigned, [place] [facility] POCT TEST 2022-07-17 16:33:00 [facility] 2022-07-17 16:15:00 Nannette Juan [facility] XR KNEE 3 VW LEFT 2022-03-19 14:44:[address] [facility] POCT TEST 2022-03-19 14:34:[address] [facility] COMP. METABOLIC PANEL (85050) 2022-03-19 14:27:[address] [facility] CBC WITH DIFF 2022-03-19 14:27:00 Lottie Garvin [facility] PROTHROMBIN TIME / INR 2022-03-19 14:27:[address] [facility] ACTIVATED PARTIAL THRMPLAS REMEDIOS 2022-03-19 14:27:[address] [facility] URINALYSIS 2022-03-19 14:27:00 Lottie Garvin [facility] CONSENT/REFUSAL FOR DIAGNOSIS AND TREATMENT 2022-03-19 13:50:09 Doctor Unassigned, [place] [facility] CONSENT/REFUSAL FOR DIAGNOSIS AND TREATMENT 2021-10-01 18:15:24 Doctor Unassigned, [place] [facility] INTUBATION 2020-08-04 19:57:[address] [facility] ASSIGNMENT OF BENEFITS 2020-08-04 16:10:14 Docnando r Unassigned, [place] [facility] DISCLOSURE AND CONSENT, MEDICAL AND SURGICAL PROCEDURES 2020-07-05 05:01:00 Doctor Unassigned, [place] [facility] HIV 1/2 AG-AB WITH REFLEX 2020-06-05 19:04:[address] [facility] GALV ONLY - SYPHILIS IGG/IGM 2020-06-05 19:04:[address] [facility] XR WRIST 3+ VW LEFT 2020-05-31 19:46:[address] [facility] MR WRIST LEFT WO CONTRAST 2020-03-31 20:18:[address] [facility] REFERRAL- REQUEST/RESPONSE 2020-03-23 05:01:00 D octor Unassigned, [place] [facility] SEDIMENTATION RATE 2019-12-23 17:06:[address] [facility] CBC WITH DIFFERENTIAL 2019-12-23 17:06:[address] [facility] ASSIGNMENT OF BENEFITS 2019-12-23 15:57:07 Docnando r Unassigned, [place] [facility] DME/SUPPLY JUSTIFICATION 2019-05-27 05:01:00 Torsten lakhani Unassigned, [place] [facility] Encounters Start Date/Time End Date/Time Encounter Type Admission Type Attending Clinicians Care Facility Care Department Encounter ID Source 2021-08-24 19:16:32 Outpatient TOREY WHYTE [facility] [id number] [facility] 2024-12-02 10:00:00 2024-12-02 10:00:00 Outpatient Oli [facility] [id number] [facility] 2024-07-29 00:00:00 2024-07-29 09:54:49 Telephone Nadege Darden [facility] GROUP SALES MANAGER [facility] CHILD [facility] [id number] [facility] 2024-07-27 09:45:00 2024-07-27 12:13:16 Outpatient R HECTORMalia NADEGE [facility] [id number] [facility] 2024-07-27 09:45:00 2024-07-27 12:13:16 Office Visit [place] [facility] GROUP SALES MANAGER [facility] CHILD [facility] 1..840.114 350.1.13.10 4.2.7.2.686 [id number] [facility] 2024-07-13 18:20:00 2024-07-13 18:47:15 Outpatient R NANNETTE JUAN [facility] [id number] [facility] 2024-07-13 18:20:00 2024-07-13 18:47:15 Urgent Care Nannette Juan Unknown, Attending [facility] MEDICAL OFFICE BUILDING 1..840.114 350.1.13.10 4.2.7.2.686 [id number] [facility] 2024-07-13 17:40:00 2024-07-13 17:40:00 Outpatient R UNKNOWN, ATTENDING [facility] [id number] [facility] 2024-04-05 00:00:00 2024-04-05 16:08:11 Telephone Theresa Trent [facility] MEDICAL OFFICE BUILDING 1..840.114 350.1.13.10 4.2.7.2.686 [id number] 370 [id number] [facility] 2024-04-05 00:00:00 2024-04-05 15:08:08 Telephone Theresa Trent [facility] MEDICAL OFFICE BUILDING 1.840.114 350.1.13.10 4.2.7.2.686 [id number] 370 [id number] [facility] 2024-04-05 00:00:00 2024-04-05 12:41:55 Telephone Selena Trentnohemi [facility] MEDICAL OFFICE BUILDING 1.840.114 350.1.13.10 4.2.7.2.686 [id number] [facility] 2024-04-05 10:40:00 2024-04-05 11:47:55 Outpatient R TRENTTHERESA [facility] [id number] [facility] 2024-04-05 10:40:00 2024-04-05 11:47:55 Urgent Care Selena Trentnohemi Unknown, Attending [facility] MEDICAL OFFICE BUILDING 1.840.114 350..13.10 4.2.7.2.686 [id number] 370 [id number] [facility] 2024-02-23 10:30:00 2024-02-23 10:30:00 Outpatient R MIRTA CORREA [facility] [id number] [facility] 2024-02-03 00:00:00 2024-02-03 00:00:00 Telephone Amelia Kat [facility] 1.840.114 350.1.13.10 4.2.7.2.686 [id number] [facility] 2024-02-02 10:40:00 2024-02-02 11:19:57 Outpatient R AMELIA KAT [facility] [id number] [facility] 2024-02-02 10:40:00 2024-02-02 11:19:57 Urgent Care Amelia Kat Unknown, Attending [facility] MEDICAL OFFICE BUILDING 1.840.114 350.1.13.10 4.2.7.2.686 [id number] 370 [id number] [facility] 2024-02-02 00:00:00 2024-02-02 00:00:00 Telephone Amelia Kat [facility] MEDICAL OFFICE BUILDING 1..840.114 350.1.13.10 4.2.7.2.686 [id number] [facility] 2023-06-28 19:00:00 2023-06-28 19:00:00 Urgent Care Cj Tierney, Attending [facility] OFFICE [facility] 1.840.114 350.1.13.10 4.2.7.2.686 [id number] 370 [id number] [facility] 2023-06-28 19:00:00 2023-06-28 18:52:42 Outpatient R CJ TIERNEY [facility] [id number] [facility] 2023-03-07 11:40:00 2023-03-07 12:00:00 Urgent Care Regla iWlson, Attending [facility] MEDICAL OFFICE BUILDING 1.840.114 350.1.13.10 4.2.7.2.686 [id number] 370 [id number] [facility] 2023-03-07 11:40:00 2023-03-07 11:40:00 Outpatient R REGLA WILSON [facility] [id number] [facility] 2023-02-25 00:00:00 2023-02-25 00:00:00 Telephone Mirta Correa [facility] 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 MATERNAL & [facility]ILD [facility] 1.840.114 350.1.13.10 4.2.7.2.686 [id number] [facility] 2023-02-25 00:00:00 2023-02-25 00:00:00 Telephone Mirta Correa [facility] GROUP SALES MANAGER [facility] & CHILD [facility] 1.840.114 350.1.13.10 4.2.7.2.686 [id number] 107 [id number] [facility] 2023-02-24 00:00:00 2023-02-24 00:00:00 Telephone Russel Correabry Ramirez [facility] GROUP SALES MANAGER [facility] & CHILD [facility] 1.2840.114 350.1.13.10 4.2.7.2.686 [id number] 107 [id number] [facility] 2023-02-24 00:00:00 2023-02-24 00:00:00 Patient Secure Msg Ulises Correabakari Ramirez [facility] GROUP SALES MANAGER [facility] CHILD [facility] 1.840.114 350.1.13.10 4.2.7.2.686 [id number] 107 [id number] [facility] 2023-02-21 08:15:00 2023-02-21 09:14:08 Outpatient R MADELINEMIRTA [facility] [id number] [facility] 2023-02-21 08:15:00 2023-02-21 09:14:08 Office Visit Madeline Mirta Ramirez [facility] GROUP SALES MANAGER [facility] CHILD [facility] 1.840.114 350.1.13.10 4.2.7.2.686 [id number] 107 [id number] [facility] 2023-02-21 00:00:00 2023-02-21 00:00:00 Orders Only Doctor Unassigned, [place] [facility] 1.0.114 350.1.13.10 4.2.7.2.686 [id number] [facility] 2023-02-19 00:00:00 2023-02-19 00:00:00 Case Management Jenniffer Hernandez 1.840.114 350.1.13.10 4.2.7.2.686 [id number] [id number] [facility] 2023-02-19 00:00:00 2023-02-19 00:00:00 Telephone Jenniffer Hernandez [facility] 1.2840.114 350.1.13.10 4.2.7.2.686 [id number] [facility] 2022-12-04 00:00:00 2022-12-04 00:00:00 Telephone Latonia Castaneda [facility] MEDICAL OFFICE BUILDING 1.84.114 350.1.13.10 4.2.7.2.686 [id number] 370 [id number] [facility] 2022-11-24 14:20:00 2022-11-24 14:40:00 Urgent Care Latonia Castaneda, Attending [facility] MEDICAL OFFICE BUILDING 1..114 350.1.13.10 4.2.7.2.686 [id number] 370 [id number] [facility] 2022-11-24 14:20:00 2022-11-24 14:20:00 Outpatient LATONIA ALONSO [facility] [id number] [facility] 2022-11-24 00:00:00 2022-11-24 00:00:00 Orders Only Doctor Unassigned, [place] [facility] 1..114 350.1.13.10 4.2.7.2.686 [id number] [facility] 2022-07-20 00:00:00 2022-07-20 00:00:00 Telephone Bello Conrad [facility] MEDICAL OFFICE BUILDING 1.284.114 350.1.13.10 4.2.7.2.686 [id number] 370 [id number] [facility] 2022-07-17 11:15:00 2022-07-17 11:29:07 Outpatient NANNETTE MAGALLON [facility] [id number] [facility] 2022-07-17 11:15:00 2022-07-17 11:29:07 Urgent Care [facility] MEDICAL OFFICE BUILDING 1.2.840.114 350.1.13.10 4.2.7.2.686 [id number] [facility] 2022-06-12 19:20:00 2022-06-12 19:47:11 Outpatient R TOREY CESAR [facility] [id number] [facility] 2022-06-12 19:20:00 2022-06-12 19:47:11 Urgent Care Torey Cesar Letitiajose maria [facility] MEDICAL OFFICE BUILDING 1..840.114 350.1.13.10 4.2.7.2.686 [id number] 370 [id number] [facility] 2022-04-14 12:40:00 2022-04-14 13:52:43 Outpatient R REGLA WILSON [facility] [id number] [facility] 2022-04-14 12:40:00 2022-04-14 13:52:43 Urgent Care Regla Wilson [facility] MEDICAL OFFICE BUILDING 1.2.840.114 350.1.13.10 4.2.7.2.686 [id number] 370 [id number] [facility] 2022-04-03 14:20:00 2022-04-03 14:20:00 Urgent Care [place] [facility] MEDICAL OFFICE BUILDING 1..840.114 350.1.13.10 4.2.7.2.686 [id number] 370 [id number] [facility] 2022-04-03 14:20:00 2022-04-03 14:03:55 Outpatient R [facility] [id number] [facility] 2022-03-19 09:01:00 2022-03-19 11:10:00 Emergency X [facility] [id number] [facility] 2022-03-19 09:01:00 2022-03-19 11:10:00 Emergency Lottie Garvin [facility] 1.2.840.114 350.1.13.10 4.2.7.2.686 [id number] [facility] 2022-03-19 00:00:00 2022-03-19 00:00:00 Patient Secure Msg Doctor Unassigned, [place] [facility] 1.2840.114 350.1.13.10 4.2.7.2.686 [id number] [facility] 2022-03-19 00:00:00 2022-03-19 00:00:00 Orders Only Doctor Unassigned, [place] [facility] 1.2840.114 350.1.13.10 4.2.7.2.686 [id number] [facility] 2021-10-01 15:00:00 2021-10-01 13:13:59 Outpatient R [facility] [id number] [facility] 2021-10-01 12:15:40 2021-10-01 13:13:59 Urgent Care Drake [facility] AMAY[facility]AYLA MEDICAL OFFICE BUILDING 1.2840.114 350.1.13.10 4.2.7.2.686 [id number] 370 [id number] [facility] 2021-10-01 00:00:00 2021-10-01 00:00:00 Orders Only Doctor Unassigned, [place] [facility] 1.2840.114 350.1.13.10 4.2.7.2.686 [id number] [facility] 2021-06-04 00:00:00 2021-06-04 00:00:00 Patient Secure Msg Casie Ortega [facility] 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 MATERNAL & CHILD [facility] 1.2840.114 350.1.13.10 4.2.7.2.686 [id number] 107 [id number] [facility] 2021-01-15 00:00:00 2021-01-15 00:00:00 Patient Outreach Harjit Sneed [facility] 1.2840.114 350.1.13.10 4.2.7.2.686 [id number] 2021-01-15 00:00:00 2021-01-15 00:00:00 Patient Outreach Harjit Sneed [facility] 1.2840.114 350.1.13.10 4.2.7.2.686 [id number] [facility] 2020-10-16 00:00:00 2020-10-16 00:00:00 Patient Secure Msg Doctor Unassigned, [place] [facility] 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 MATERNAL & CHILD [facility] 1.0.114 350.1.13.10 4.2.7.2.686 [id number] [facility] 2020-08-23 14:00:00 2020-08-23 14:00:00 Outpatient R TOREY WHYTE [facility] [id number] [facility] 2020-08-22 00:00:00 2020-08-22 00:00:00 Patient Secure Msg Torey Whyte [facility] CARE HI HAT AT [facility] 1.0.114 350.1.13.10 4.2.7.2.686 [id number] 198 [id number] [facility] 2020-08-09 00:00:00 2020-08-09 00:00:00 Telephone Torey Whyte [facility] SPECIALTY C[facility] AT [facility] 1.840.114 350.1.13.10 4.2.7.2.686 [id number] [facility] 2020-08-09 00:00:00 2020-08-09 00:00:00 Telephone [facility] CARE HI HAT AT [facility] 1.2.840.114 350.1.13.10 4.2.7.2.686 [id number] 2020-08-04 11:12:00 2020-08-04 17:25:00 Hospital Encounter [facility] ([facility]) 1.2.840.114 350.1.13.10 4.2.7.2.686 [id number] [facility] 2020-08-04 11:12:00 2020-08-04 17:25:00 Hospital Encounter [facility] ([facility]) 1.2.840.114 350.1.13.10 4.2.7.2.686 [id number] 2020-08-04 14:32:00 2020-08-04 15:44:00 Anesthesia Ashley Alas David K [facility] AT [facility] 1.2.840.114 350.1.13.10 4.2.7.2.686 [id number] [facility] 2020-08-04 14:32:00 2020-08-04 15:44:00 Anesthesia Ashley Alas David K [facility] SPECIAL[facility] CARE [facility] AT [facility] 1.2.840.114 350.1.13.10 4.2.7.2.686 [id number] 2020-08-04 00:00:00 2020-08-04 00:00:00 Orders Only Doctor Unassigned, [place] [facility] 1.2.840.114 350.1.13.10 4.2.7.2.686 [id number] [facility] 2020-08-04 00:00:00 2020-08-04 00:00:00 Orders Only Doctor Unassigned, [place] [facility] 1.2.840.114 350.1.13.10 4.2.7.2.686 [id number] 2020-08-03 15:30:00 2020-08-03 15:30:00 Outpatient R [facility] [id number] [facility] 2020-08-03 14:49:11 2020-08-03 15:04:01 Laboratory Only Only, Ad[facility] Test [facility] 1.2840.114 350.1.13.10 4.2.7.2.686 [id number] [facility] 2020-08-03 14:49:11 2020-08-03 15:04:01 Laboratory Only Only, [facility] Test [facility] 1.2840.114 350.1.13.10 4.2.7.2.686 [id number] 2020-08-02 00:00:00 2020-08-02 00:00:00 Telephone [facility] SPECIALTY CARE [facility] AT [facility] 1.2840.114 350.1.13.10 4.2.7.2.686 [id number] [facility] 2020-08-02 00:00:00 2020-08-02 00:00:00 Telephone [facility] 1.2840.114 350.1.13.10 4.2.7.2.686 [id number] [facility] 2020-07-21 00:00:00 2020-07-21 00:00:00 Patient Secure Msg Doctor Unassigned, [place] [facility] 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 MATERNAL & CHILD [facility] 12840.114 350.1.13.10 4.2.7.2.686 [id number] [facility] 2020-07-20 00:00:00 2020-07-20 00:00:00 Patient Secure Msg [facility] SPECIALTY CARE [facility] [place] 1.2.840.114 350.1.13.10 4.2.7.2.686 [id number] [facility] 2020-07-19 00:00:00 2020-07-19 00:00:[address] [facility] AT [facility] 1.2.840.114 350.1.13.10 4.2.7.2.686 [id number] [facility] 2020-07-07 00:00:00 2020-07-07 00:00:00 Patient Secure Msg [facility] AT [facility] 1.2.840.114 350.1.13.10 4.2.7.2.686 [id number] 198 [id number] [facility] 2020-07-05 11:28:58 2020-07-05 11:38:[address] [facility] 1.2.840.114 350.1.13.10 4.2.7.2.686 [id number] [facility] 2020-07-05 11:10:00 2020-07-05 11:10:[address] [facility] [id number] [facility] 2020-07-05 00:00:00 2020-07-05 00:00:00 Patient Secure Msg Doctor Unassigned, [place] [facility] GROUP SALES MANAGER [facility] 1.2840.114 350.1.13.10 4.2.7.2.686 [id number] 107 [id number] [facility] 2020-07-05 00:00:00 2020-07-05 00:00:00 Orders Only Doctor Unassigned, [place] [facility] 1.2840.114 350.1.13.10 4.2.7.2.686 [id number] [facility] 2020-06-21 13:30:00 2020-06-21 13:30:00 Outpatient R RUEL IQBAL [facility] [id number] [facility] 2020-06-20 00:00:00 2020-06-20 00:00:00 Patient Secure Msg Torey Whyte [facility] [place] 1..114 350.1.13.10 4.2.7.2.686 [id number] [facility] 2020-06-19 16:19:58 2020-06-19 16:20:05 Benefits Sales Consultant Visit Lab, Ang[facility] Casie Ortega [facility] GROUP SALES MANAGER [facility] & CHILD [facility] 1..114 350.1.13.10 4.2.7.2.686 [id number] 107 [id number] [facility] 2020-06-19 15:40:00 2020-06-19 15:40:00 Outpatient R TOREY WHYTE [facility] [id number] [facility] 2020-06-19 15:15:00 2020-06-19 15:15:00 Outpatient R CASIE ORTEGA [facility] [id number] [facility] 2020-06-19 00:00:00 2020-06-19 00:00:00 Telephone Torey Whyte [facility] [place] 1..114 350.1.13.10 4.2.7.2.686 [id number] [facility] 2020-06-16 00:00:00 2020-06-16 00:00:00 Patient Secure Msg Doctor Unassigned, [place] [facility] GROUP SALES MANAGER [facility] CHILD [facility] 1..114 350.1.13.10 4.2.7.2.686 [id number] [facility] 2020-06-13 00:00:00 2020-06-13 00:00:00 Patient Secure Msg Doctor Unassigned, [place] [facility] GROUP SALES MANAGER [facility] & CHILD [facility] 1.840.114 350.1.13.10 4.2.7.2.686 [id number] [facility] 2020-06-12 00:00:00 2020-06-12 00:00:00 Telephone Casie Ortega [facility] GROUP SALES MANAGER [facility] & CHILD [facility] 1.2.840.114 350.1.13.10 4.2.7.2.686 [id number] 107 [id number] [facility] 2020-06-06 00:00:00 2020-06-06 00:00:00 Telephone Casie Ortega [facility] GROUP SALES MANAGER [facility] & CHILD [facility] 1.2.840.114 350.1.13.10 4.2.7.2.686 [id number] 107 [id number] [facility] 2020-06-05 12:48:43 2020-06-05 14:03:05 Office Visit Casie Ortega [facility] GROUP SALES MANAGER [facility] & CHILD [facility] 1.2840.114 350.1.13.10 4.2.7.2.686 [id number] 107 [id number] [facility] 2020-06-05 12:45:00 2020-06-05 12:45:00 Outpatient R CASIE ORTEGA [facility] [id number] [facility] 2020-05-31 14:36:23 2020-05-31 23:59:00 Hospital Encounter Torey Whyte [facility] SPECIALTY CARE [facility] AT [facility] 1.2840.114 350.1.13.10 4.2.7.2.686 [id number] [facility] 2020-05-31 14:17:05 2020-05-31 15:56:27 Office Visit Torey Whyte [facility] SPECIALTY CARE HI [facility] AT [facility] 1.2.840.114 350.1.13.10 4.2.7.2.686 [id number] [facility] 2020-05-31 14:30:00 2020-05-31 14:30:00 Outpatient TOREY PANDEY [facility] [id number] [facility] 2020-04-24 00:00:00 2020-04-24 00:00:00 Patient Secure Msg Doctor Unassigned, [place] [facility] 1.84.114 350.1.13.10 4.2.7.2.686 [id number] [facility] 2020-04-12 13:00:00 2020-04-12 13:00:00 Outpatient R TOREY WHYTE [facility] [id number] [facility] 2020-04-12 00:00:00 2020-04-12 00:00:00 Patient Secure Msg Doctor Unassigned, [place] [facility] 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 MATERNAL & CHILD [facility] 1.84.114 350.1.13.10 4.2.7.2.686 [id number] [facility] 2020-04-06 15:30:00 2020-04-06 15:30:00 Outpatient R MARCO ANTONIOTERRYIG [facility] [id number] [facility] 2020-04-06 13:33:51 2020-04-06 14:02:35 Office Visit Kami Bernard [facility] 1.84.114 350.1.13.10 4.2.7.2.686 [id number] [facility] 2020-03-31 14:26:45 2020-03-31 23:59:00 Outpatient R KAMI BERNARD [facility] [id number] [facility] 2020-03-31 14:00:00 2020-03-31 23:59:00 Hospital Encounter Kami Bernard [facility] 1..114 350.1.13.10 4.2.7.2.686 [id number] [facility] 2020-03-23 00:00:00 2020-03-23 00:00:00 Orders Only Doctor Unassigned, [place] [facility] 1.2840.114 350.1.13.10 4.2.7.2.686 [id number] [facility] 2020-03-22 00:00:00 2020-03-22 00:00:00 Telephone Kami Bernard [facility] Health Surgical Specialti es [place] 1.2840.114 350.1.13.10 4.2.7.2.686 [id number] [facility] 2020-03-16 14:10:26 2020-03-16 14:24:02 Office Visit Kami Bernard [facility] Surgical Specialti es [place] 1.2840.114 350.1.13.10 4.2.7.2.686 [id number] [facility] 2020-03-16 14:15:00 2020-03-16 14:15:00 Outpatient R KAMI BERNARD [facility] [id number] [facility] 2020-03-16 13:15:00 2020-03-16 13:15:00 Outpatient R KAMI BERNARD [facility] [id number] [facility] 2020-01-11 13:45:00 2020-01-11 13:45:00 Outpatient JOHN NAQVI [facility] [id number] [facility] 2020-01-06 14:45:00 2020-01-06 14:45:00 Outpatient JOHN NAQVI [facility] [id number] [facility] 2019-12-30 10:15:00 2019-12-30 10:15:00 Outpatient R KAMI BERNARD [facility] [id number] [facility] 2019-12-30 00:00:00 2019-12-30 00:00:00 Patient Secure John Rivera [facility] Surgical Specialti es [place] 1.2840.114 350.1.13.10 4.2.7.2.686 [id number] [facility] 2019-12-23 10:51:53 2019-12-23 11:06:53 Benefits Sales Consultant Visit Pob, Adc Lab Main Kami Bernard [facility] 1.2840.114 350.1.13.10 4.2.7.2.686 [id number] [facility] 2019-12-23 09:56:57 2019-12-23 10:15:25 Office Visit Marco Antonio Kami Ramos [facility] Health Surgical Specialti amara [place] 1.2.114 350.1.13.10 4.2.7.2.686 [id number] [facility] 2019-12-23 10:15:00 2019-12-23 10:15:00 Outpatient R MARCO ANTONIO KAMI [facility] [id number] [facility] 2019-12-23 00:00:00 2019-12-23 00:00:00 Orders Only Doctor Unassigned, [place] [facility] 1.20.114 350.1.13.10 4.2.7.2.686 [id number] [facility] 2019-05-27 00:00:00 2019-05-27 00:00:00 Orders Only Doctor Unassigned, [place] [facility] 1.2.840.114 350.1.13.10 4.2.7.2.686 [id number] [facility] 2019-05-27 00:00:00 2019-05-27 00:00:00 Telephone Haja Abraham [facility] 1.2840.114 350.1.13.10 4.2.7.2.686 [id number] [facility] 2014-05-30 00:00:00 2014-05-30 00:00:00 Patient Secure Msg Doctor Unassigned, [place] [facility] 1.2840.114 350.1.13.10 4.2.7.2.686 [id number] [facility] Results Test Description Test Time Test Comments Results Result Co mments Source [facility] [id number] 16:19:00* Test Item Value Reference Range Interpretation Comme nts POCT PREG (test code = 1605) Negative On board controls acceptable with C Line (test code = 3574) Yes POCT PREG LOT # (test code = 3575) POCT PREG TEST DATE ( test code = 3576) [facility] MOLECULAR [id number] 23:35:37* Test Item Value Reference Range Interpretation Comme nts POCT Molecular Strep (test c ode = 58711-4) Negative Negative Lab Interpretation (test cod e = 87768-6) Normal [facility] Molecular [id number] 16:28:01* Test Item Value Reference Range Interpretation Comme nts POCT Molecular FluA (test co de = 30145-2) Negative Negative POCT Molecular FluB (test co de = 00896-9) Negative Negative Lab Interpretation (test cod e = 30654-4) Normal [facility] [facility] SARS-COV-2 ANTIGEN (BINAX NOW)2024-04-05 16:28:00* Test Item Value Reference Range Interpretation Comme nts POCT SARS-COV-2 ANTIGEN (test code = 81928-6) Not Detected Not Detected On board controls acceptable with C Line (test code = 3574) Yes FIONA (test code = FIONA) accurate developme nt and interpretation of all internal controls [facility] MOLECULAR [id number] 16:20:56* Test Item Value Reference Range Interpretation Comme nts POCT Molecular Strep (test c ode = 88419-3) Negative Negative Lab Interpretation (test cod e = 26257-8) Normal [facility] MOLECULAR [id number] 16:03:23* Test Item Value Reference Range Interpretation Comme nts POCT Molecular Strep (test c ode = 71684-2) Negative Negative Lab Interpretation (test cod e = 29397-4) Normal [facility] SARS-COV-2 ANTIGEN (BINAX NOW)2023-06-28 23:40:00* Test Item Value Reference Range Interpretation Comme nts POCT SARS-COV-2 ANTIGEN (test code = 86837-6) Not Detected Not Detected On board controls acceptable with C Line (test code = 3574) Yes FIONA (test code = FIONA) accurate developme nt and interpretation of all internal controls Lab Interpretation (test code = 49004-8) Normal [facility] SARS-COV-2 ANTIGEN (BINAX NOW)2023-06-28 23:40:00* Test Item Value Reference Range Interpretation Comme nts POCT SARS-COV-2 ANTIGEN (test code = 68657-9) Not Detected Not Detected On board controls acceptable with C Line (test code = 3574) Yes FIONA (test code = FIONA) accurate developme nt and interpretation of all internal controls Lab Interpretation (test code = 40493-1) Normal [facility] MOLECULAR [id number] 16:26:28* Test Item Value Reference Range Interpretation Comme nts POCT Molecular Strep (test c ode = 27606-4) Negative Negative Lab Interpretation (test cod e = 55681-6) Normal [id number] 16:53:38* Test Item Value Reference Range Interpretation Comme nts Syphilis IgG/IgM (test code = 96551-4) Non-reactive Non-reactive FIONA (test code = FIONA) Non-reactive - No serologic evidence of T. pallidum infection. Cannot exclude incubating or early syphilis. Submit a second specimen in 2-4 weeks if syphilis is clinically suspected. Equivocal - Further testing to follow. Reactive - Further testing to follow. Lab Interpretation (test code = 46900-4) Normal [facility] WITH [id number] 05:24:24* Test Item Value Reference Range Interpretation Comme nts HIV Semi-quantitative (test code = 20409-1) 0.07 Negative FIONA (test code = FIONA) Non-reactive for HIV-1 antigen and HIV-1/HIV-2 antibodies. ?No laboratory evidence of HIV infection. ?Repeat in 2-4 weeks if acute HIV infection is suspected. [facility] [id number] 16:44:00* Test Item Value Reference Range Interpretation Comme nts POCT PREG (test code = 1605) Negative On board controls acceptable with C Line (test code = 3574) Yes POCT PREG LOT # (test code = 3575) [id number] POCT PREG TEST DATE (test code = 357) FIONA (test code = FIONA) accurate developme nt and interpretation of all internal controls Lab Interpretation (test code = 33650-4) Normal [facility] W SPECIFIC [id number] 16:16:00* Test Item Value Reference Range Interpretation [...] clear Lab Interpretation (test cod e = 99407-9) Normal [facility] WITH [id number] 15:36:23* Test Item Value Reference Range Interpretation [...] 33.6 g/dL 31.6-35.1 RDW-SD (test code = 77796-8) 43.0 fL 39.0-49.9 RDW-CV (test code = 788-0) 13.8 % 12.0-15.5 PLT (test code = 777-3) See_Comment [Automated messa ge] The system which generated this result transmitted reference range: 166 - 358 10*3/?L. The reference range was not used to interpret this result as normal/abnormal. MPV (test code = 08451-4) 10.8 fL 9.5-12.9 NRBC/100 WBC (test code = 2686465846) See_Comment [Automated [employer] ssage] The system which generated this result transmitted reference range: 0.0 - 10.0 /100 WBCs. The reference range was not used to interpret this result as normal/abnormal. NRBC x10^3 (test code = 3434677951) <0.01 See_Comment [Automated m-spatiala ge] The system which generated this result transmitted reference range: 10*3/?L. The reference range was not used to interpret this result as normal/abnormal. GRAN MAT (NEUT) % (test code = 770-8) 59.6 % IMM GRAN % (test code = 7468589347) 0.40 % LYMPH % (test code = 736-9) 29.0 % MONO % (test code = 5905-5) 7.7 % EOS % (test code = 713-8) 2.9 % BASO % (test code = 706-2) 0.4 % GRAN MAT x10^3(ANC) (test code = 9971478719) 8.31 10*3/uL 1.88-7.09 H IMM GRAN x10^3 (test code = 0813668664) 0.06 10*3/uL 0.00-0.06 LYMPH x10^3 (test code = 731-0) 4.05 10*3/uL 1.32-3.29 H MONO x10^3 (test code = 742-7) 1.07 10*3/uL 0.33-0.92 H EOS x10^3 (test code = 711-2) 0.41 10*3/uL 0.03-0.39 H BASO x10^3 (test code = 704-7) 0.05 10*3/uL 0.01-0.07 REACT LYMPHS (test code = 0040606987) Rare Lab Interpretation (test code = 57856-9) [facility]normal [facility] CenterACT[facility] PARTIAL THRMPLAS [id number] 15:06:58* Test Item Value Reference Range Interpretation Comme [facility] APTT Patient (test code = 3173-2) See_Comment [Automated message] The system which generated this result transmitted reference range: 23 - 38 Seconds. The reference range was not used to interpret this result as normal/abnormal. FIONA (test code = FIONA) [facility] patient population mean normal value for aPTT is 30 seconds. Lab Interpretation (test code = 71458-1) Normal [facility] CenterPROTHROMBIN TIME / [id number] 15:04:57* Test Item Value Reference Range Interpretation Comme [facility] PROTIME PATIENT (test code = 5964-2) See_Comment [Automated messa ge] The system which generated this result transmitted reference range: 12.0 - 14.7 Seconds. The reference range was not used to interpret this result as normal/abnormal. INR (test code = 6301-6) Normal INR <1.1; Warfarin Therapeutic range 2.0 to 3.0 or 2.5 to 3.5, depending upon the indications. Lab Interpretation (test code = 81109-3) Normal [facility] Center[facility] METABOLIC PANEL (94623)2022-03-19 14:58:33* Test Item Value Reference Range Interpretation Comme nts NA (test code = 2017387848) 141 mmol/L 135-145 K (test code = 5615513905) 4.3 mmol/L 3.5-5.0 CL (test code = 7244719380) 107 mmol/L 98-108 CO2 TOTAL (test code = 5900524493) 24 mmol/L 23-31 AGAP (test code = 9824240966) 2-16 BUN (test code = 1027430345) 11 mg/dL 7-23 GLUCOSE (test code = 3357066883) 116 mg/dL 70-110 H CREATININE (test code = 8203765505) 0.71 mg/dL 0.50-1.04 TOTAL BILI (test code = 2232117687) 0.5 mg/dL 0.1-1.1 CALCIUM (test code = 7552038697) 9.3 mg/dL 8.6-10.6 T PROTEIN (test code = 2733807874) 7.0 g/dL 6.3-8.2 ALBUMIN (test code = 8249530691) 4.3 g/dL 3.5-5.0 ALK PHOS (test code = 4658229512) 63 U/L 34-122 ALTv (test code = 1742-6) 48 U/L 5-35 H AST(SGOT) (test code = 4491758264) 33 U/L 13-40 eGFR (test code = 0930398548) mL/min/1.73m2 FIONA (test code = FIONA) Association [...] imaging tests). Lab Interpretation (test code = 08700-2) [facility]normal [facility]PO[facility] [id number] 14:34:00* Test Item Value Reference Range Interpretation Comme nts POCT PREG (test code = 1605) negative On board controls acceptable with C Line (test code = 3574) present POCT PREG LOT # (test code = 3575) [id number] POCT PREG TEST DATE ( test code = 3576) 07-26-2023 Lab Interpretation (test cod e = 88606-6) Normal [facility] CenterIntubation2020-10-09 19:57:02HoLuzma Fairchild CRNA ? ? 08/04/2020 ?2:57 PMIntubationDate/Time: 08/04/2020 2:39 PMUrgency: elective Airway not difficult General Information and Staff Patient location during procedure: ORResident/INTERNET MARKETING MANAGER: Luzma Almanza CRNAPerformed: resident/INTERNET MARKETING MANAGER Indications and Patient ConditionIndications for airway management: [...] and BBS, teeth and lips per preop assessmentUnHarris Health System [facility] HospitalGALV ONLY - SYPHILIS IGG/IGM 2020-06-06 13:57:00* Test Item Value Reference Range Interpretation Comme [facility] Syphilis IgG/IgM (test code = 76969-6) Non-reactive Non-reactive FIONA (test code = FIONA) Non-reactive - No serologic evidence of T. pallidum infection. Cannot exclude incubating or early syphilis. Submit a second specimen in 2-4 weeks if syphilis is clinically suspected. Equivocal - Further testing to follow. Reactive - Further testing to follow. Lab Interpretation (test code = 33185-9) Normal [facility] AG-AB WITH [id number] 05:48:00* Test Item Value Reference Range Interpretation Comme [facility] HIV Semi-quantitative (test code = 68027-3) Negative Negative FIONA (test code = FIONA) Non-reactive for HIV-1 antigen and HIV-1/HIV-2 antibodies. ?No laboratory evidence of HIV infection. ?Repeat in 2-4 weeks if acute HIV infection is suspected. [facility] CenterXR WRIST 3+ VW [id number] 20:09:52 Osteonecrosis of the lunate. Nonspecific swelling [...] of the lunate.Nonspecific swelling over the medial forearm.[facility] CenterSEDIMENTATION [id number] 17:35:00* Test Item Value Reference Range Interpretation Comme [facility] ESR (test code = 6029781469) See_Comment [Automated m-spatiala Atonarp] The system which generated this result transmitted reference range: 0 - 20 mm/HR. The reference range was not used to interpret this result as normal/abnormal. Lab Interpretation (test code = 03043-4) Normal [facility] CenterSEDIMENTATION [id number] 17:35:00* Test Item Value Reference Range Interpretation Comme [facility] ESR (test code = 4236265808) See_Comment [Automated m-spatiala Atonarp] The system which generated this result transmitted reference range: 0 - 20 mm/HR. The reference range was not used to interpret this result as normal/abnormal. Lab Interpretation (test code = 88221-7) Normal [facility] WITH [id number] 17:10:00* Test Item Value Reference Range Interpretation [...] g/dL 31.6-35.1 L RDW-SD (test code = 98501-4) 45.0 fL 39-49.9 RDW-CV (test code = 788-0) 14.9 % 12-15.5 PLT (test code = 777-3) See_Comment [Automated messa ge] The system which generated this result transmitted reference range: 166 - 358 10*3/?L. The reference range was not used to interpret this result as normal/abnormal. MPV (test code = 40874-1) 10.0 fL 9.5-12.9 NRBC/100 WBC (test code = 1309906131) See_Comment [Automated [employer] ssage] The system which generated this result transmitted reference range: 0.0 - 10.0 /100 WBCs. The reference range was not used to interpret this result as normal/abnormal. NRBC x10^3 (test code = 7770255089) <0.01 See_Comment [Automated messa ge] The system which generated this result transmitted reference range: 10*3/?L. The reference range was not used to interpret this result as normal/abnormal. GRAN MAT (NEUT) % (test code = 770-8) 60.7 % IMM GRAN % (test code = 6435120612) 0.50 % LYMPH % (test code = 736-9) 28.4 % MONO % (test code = 5905-5) 7.5 % EOS % (test code = 713-8) 2.5 % BASO % (test code = 706-2) 0.4 % GRAN MAT x10^3(ANC) (test code = 2195189405) 5.91 10*3/uL 1.88-7.09 IMM GRAN x10^3 (test code = 3610511507) 0.05 10*3/uL 0-0.06 LYMPH x10^3 (test code = 731-0) 2.76 10*3/uL 1.32-3.29 MONO x10^3 (test code = 742-7) 0.73 10*3/uL 0.33-0.92 EOS x10^3 (test code = 711-2) 0.24 10*3/uL 0.03-0.39 BASO x10^3 (test code = 704-7) 0.04 10*3/uL 0.01-0.07 Lab Interpretation (test code = 20087-4) Abnormal [facility] WITH [id number] 17:10:00* Test Item Value Reference Range Interpretation Comme nts WBC (test code = 6690-2) See_Comment [Automated m-spatiala ge] The system which generated this result transmitted reference range: 4.30 - 11.10 10*3/?L. The reference range was not used to interpret this result as normal/abnormal. RBC (test code = 789-8) See_Comment [Automated m-spatiala ge] The system which generated this result [...] g/dL 31.6-35.1 L RDW-SD (test code = 12015-7) 45.0 fL 39-49.9 RDW-CV (test code = 788-0) 14.9 % 12-15.5 PLT (test code = 777-3) See_Comment [Automated messa ge] The system which generated this result transmitted reference range: 166 - 358 10*3/?L. The reference range was not used to interpret this result as normal/abnormal. MPV (test code = 40825-9) 10.0 fL 9.5-12.9 NRBC/100 WBC (test code = 5855781376) See_Comment [Automated [employer] ssage] The system which generated this result transmitted reference range: 0.0 - 10.0 /100 WBCs. The reference range was not used to interpret this result as normal/abnormal. NRBC x10^3 (test code = 7327258073) <0.01 See_Comment [Automated messa ge] The system which generated this result transmitted reference range: 10*3/?L. The reference range was not used to interpret this result as normal/abnormal. GRAN MAT (NEUT) % (test code = 770-8) 60.7 % IMM GRAN % (test code = 1327568456) 0.50 % LYMPH % (test code = 736-9) 28.4 % MONO % (test code = 5905-5) 7.5 % EOS % (test code = 713-8) 2.5 % BASO % (test code = 706-2) 0.4 % GRAN MAT x10^3(ANC) (test code = 5153274848) 5.91 10*3/uL 1.88-7.09 IMM GRAN x10^3 (test code = 4456500428) 0.05 10*3/uL 0-0.06 LYMPH x10^3 (test code = 731-0) 2.76 10*3/uL 1.32-3.29 MONO x10^3 (test code = 742-7) 0.73 10*3/uL 0.33-0.92 EOS x10^3 (test code = 711-2) 0.24 10*3/uL 0.03-0.39 CARMINEO x10^3 (test code = 704-7) 0.04 10*3/uL 0.01-0.07 Lab Interpretation (test code = 02831-9) Abnormal [facility] Notes Date/Time Note Provider Source 2024-07-29 11:19:26 Patient stated she her has a yeast infection as well and would like treatment for him. Informed patient treatment can not be provided for partner since it is not an STD. Informed patient her can see his PCP for treatment, verbalized understanding. T Martine Markham [facility] 2024-07-29 09:54:23 Attempted to call patient, no answer, left vm, sent codesy message. [facility] Martine Markham [facility] 2024-07-29 06:37:23 Please call patient and let her know she has coni glabrata vaginal yeast infection. With particular type of yeast infection, you can only use vaginal suppository. Oral medications and creams do not work. [facility] 2024-04-05 16:08:37 Attempted to contact patient, left message on voicemail if need to fill rx to use GoodRx coupon, since rx needs a PA. Closing encounter. Felipa Bryant RN 04/05/2024 4:08 PM [facility] 2024-04-05 16:08:21 Attempted to contact patient, left message on voicemail if need to fill rx to use GoodRx coupon, since rx needs a PA. Closing encounter. Felipa Bryant RN 04/05/2024 4:08 PM [facility] 2024-04-05 16:07:06 Attempted to contact patient, left message on voicemail if need to fill rx to use GoodRx coupon, since rx needs a PA. Closing encounter. Felipa Bryant RN 04/05/2024 4:08 PM [facility] 2024-04-05 15:40:44 Priscilla Solo is a 38 year old female and is returning a missed call. Pt said if its about the inhaler to not worry about it if its causing a huge mess. Please advise. Antoine Johnson [facility] 2024-04-05 15:07:43 Attempted to contact patient by phone, no answer, message left on voicemail to call back. Felipa Bryant RN 04/05/2024 3:07 PM T [facility] 2024-04-05 13:45:01 Copied from [facility] #[id number]. Topic: Clinical - Missed Call from Provider >> Apr 05, 2024 1:43 PM Patient Building Admin wrote: Patient is returning a call she missed from the clinic in regards to medication. Niraj Pace [facility] 2024-04-05 12:40:57 Patient called in regards to prior auth, no answer, message left on voicemail to call back. Felipa Bryant RN 04/05/2024 12:41 PM [facility] 2024-04-05 12:27:00 Images from the original note were not included. Sol Phelps [facility] 2024-02-06 16:21:50 Addended by: PATRICIA BRIONES on: 02/06/2024 04:21 PM Modules accepted: Orders [facility] 2024-02-06 16:21:34 Rx needs to be brand name , rx resent T [facility] 2024-02-04 09:28:35 PA initiated Rdz: [id number] Devika Leblanc RN [facility] 2024-02-03 15:10:41 Images from the original note were not included. Vera Renee [facility] 2024-02-02 11:49:[address] [facility] [facility] Felipa Bryant RN 02/02/2024 11:50 AM Felipa Bryant RN [facility] 2024-02-02 11:30:49 Copied from CRM #[id number]. Topic: Clinical - Medical Advice >> Feb 02, 2024 11:29 AM Patient Building Admin wrote: Omar with [facility] is calling to clarify medication directions for azithromycin 500 mg tablet [id number] - [address] AT [facility] [address] [place] [address] John Desai [facility]"
[2024-07-30] MEDS ORDERED: ONDANSETRON 4 MG/2 ML VIAL ONE (02:10)
[2024-07-30] MEDS ORDERED: FAMOTIDINE 20 MG/2 ML VIAL IV ONE (02:11)
[2024-07-30] MEDS ORDERED: NA CHLORIDE 0.9% 1,000 ML ONE (02:11)
[2024-07-30] MEDS ORDERED: KETOROLAC 30 MG/ML INJ ONE (02:11)
[2024-07-30 02:33] LABS: Absolute Basophils 0.1 K/uL (0-0.5); Absolute Eosinophils 0.4 K/uL (0-0.5); Absolute Lymphocytes (CBC) 3.7 K/uL (0.7-4.9); Absolute Monocytes 0.9 K/uL (0.1-1.3); Absolute Neutrophil 7.6 K/uL (1.8-8.0); Basophils % 0.6 % (0-1.3); Eosinophils % 3.1 % (0-4.4); Hematocrit 42.5 % (36.0-45.0); Hemoglobin 14.1 g/dL (12.0-15.0); Lymphocytes % 29.4 % (15.3-44.8); MCH 27.9 pg (27.0-35.0); MCHC 33.2 g/dL (32.0-36.0); MCV 84.1 fL (80-100); MPV 9.5 fL (7.6-11.3); Monocytes % 7.3 % (3.3-12.3); Neutrophils % 59.6 % (41.7-73.7); Platelets 244 thou/uL (152-406); RBC Red Blood Cell Count 5.06 M/uL (3.86-4.86); Red Cell Distribution Width 13.8 % (12.1-15.2)
[2024-07-30 02:45] LABS: Albumin/Globulin Ratio 1.1 (1.1-1.8); Anion Gap 9.9 mEq/L (5.0-15.0); Bilirubin Total 0.4 mg/dL (0.2-1.0); Globulin 2.8 g/dL (2.3-3.5); Potassium 3.9 mEq/L (3.5-5.1); Protein, Total 5.8 g/dL (6.4-8.2)
[2024-07-30 02:54] LABS: Specific Gravity 1.026 (1.005-1.030); Sqamous Epithelial <5 /HPF (None Seen); Urine Bacteria <20 /HPF (<20); Urine Bilirubin NEGATIVE (Negative); Urine Blood Negative (Negative); Urine Clarity Clear (Clear); Urine Color Light-Yellow (Yellow); Urine Culture Reflex Order NOT NEEDED; Urine Glucose 3+ (Negative); Urine Ketones NEGATIVE (Negative); Urine Microscopic Reflex YN ORDER UMIC; Urine Mucus Slight /HPF (None Seen); Urine Nitrite NEGATIVE (Negative); Urine Protein NEGATIVE (Negative); Urine RBC None Seen /HPF (None Seen); Urine Urobilinogen Normal (Normal); Urine WBC <5 /HPF (<5)
[2024-07-30 02:55] LABS: Specific Gravity 1.026 (1.005-1.030)
--- NOTE | 2024-07-30 05:06 | RAD REPORT ---
CT ABDOMEN PELVIS WITH IV CONTRAST CLINICAL INDICATION: Abdominal pain COMPARISON: CT chest abdomen and pelvis 12/20/2023 TECHNIQUE: CT images of the abdomen and pelvis obtained following administration of intravenous contr ast. Multiplanar reformats were provided. Dose-optimization techniques such as automated exposure control, iterative reconstruction, and mA and/or kV adjustment for patient size was utilized for this examination. FINDINGS: LOWER CHEST: Unremarkable. LIVER: Diffuse fatty infiltration of the liver without focal lesion. BILIARY: Gallbladder is contracted otherwise unremarkable. No biliary ductal dilatation. PANCREAS: Unremarkable. SPLEEN: Mildly enlarged, measuring up to 14.4 cm. ADRENALS: Unremarkable. KIDNEYS/URETERS: Symmetrical nephrogram without nephrolithiasis, hydronephrosis or suspicious mass le heather. BOWEL/STOMACH: Unremarkable. APPENDIX: Appendix is not definitively visualized. No focal inflammation in right lower quadrant to s uggest acute appendicitis. MESENTERY/PERITONEUM: Unremarkable. RETROPERITONEUM: No adenopathy. URINARY BLADDER: Unremarkable. REPRODUCTIVE: 2.9 cm rim-enhancing structure in left ovary, likely a corpus luteal cyst; no follow-up imaging is recommended. VASCULAR: Unremarkable. ABDOMINAL/PELVIC WALL: Several small fat containing periumbilical ventral hernias. Mild] infiltration in the anterior and posterior abdominal wall may represent edema related to body habitus. BONES: No acute findings. No compression deformity, nor osteolytic or sclerotic lesion. IMPRESSION: 1. No acute inflammatory process in the abdomen and pelvis. 2. Hepatic steatosis. 3. Mild splenomegaly. Electronically signed by: Love Raza MD 07/30/2024 04:30 AM T Due to temporary technical issues with the PACS/Dropcam reporting system, reports are being jameson d by the in-house radiologist without review as a courtesy to ensure prompt reporting the interpreting radiologist is fully responsible for the content of the report. Transcribed Date/Time: 07/30/2024 5:05 AM
--- NOTE | 2024-07-30 05:10 | ER ---
Nurse's Notes [facility] Name: Priscilla Solo Age: 39 yrs Sex: Female : 1985 Arrival Date: 07/30/2024 Time: 01:03 Bed 19 Private MD: Diagnosis: Diffuse abdominal pain, hepatic steatosis, new onset type 2 diabetes with hyperglycemia.;Type 2 diabetes mellitus with hyperglycemia Presentation: 07/30 01:34 Chief complaint: Patient states: Pt c/o entire stomach feeling "hard" 3-4 months. dd2 States it feels bloated and pressure when urinating and bowel movements. Coronavirus screen: At this time, the client does not indicate any symptoms associated with coronavirus-19. Ebola Screen: No symptoms or risks identified at this time. Initial Sepsis Screen: Does the patient meet any 2 criteria? No. Patient's initial sepsis screen is negative. Does the patient have a suspected source of infection? No. Patient's initial sepsis screen is negative. Risk Assessment: Do you want to hurt yourself or someone else? Patient reports no desire to harm self or others. Onset of symptoms is unknown. 01:34 Method Of Arrival: Ambulatory dd2 01:34 Acuity: ERIC 3 dd2 Triage Assessment: 01:35 General: Appears in no apparent distress. Behavior is cooperative, appropriate for age, dd2 anxious. Pain: Complains of pain in abdomen Pain currently is 6 out of 10 on a pain scale. EENT: No deficits noted. No signs and/or symptoms were reported regarding the EENT system. Neuro: Level of Consciousness is awake, alert, obeys commands, Oriented to person, place, time, situation, Appropriate for age. Cardiovascular: Denies chest pain, Patient's skin is warm and dry. Respiratory: Airway is patent Respiratory effort is even, unlabored, Respiratory pattern is regular, symmetrical. GI: Abdomen is round Bowel sounds present X 4 quads. Abd is non tender X 4 quads Reports lower abdominal pain, upper abdominal pain, bloating, cramping. : Reports pressure to abd with urination. Derm: No deficits noted. No signs and/or symptoms reported regarding the dermatologic system. Musculoskeletal: No deficits noted. No signs and/or symptoms reported regarding the musculoskeletal system. 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 - Infectious Disease History:: Denies. - Social history:: Smoking status: Patient denies any tobacco usage or history of. - Family history:: not pertinent. Screenin:39 [facility] ED Fall Risk Assessment (Adult) History of falling in the last 3 months, dd2 including since admission No falls in past 3 months (0 pts) Confusion or Disorientation No (0 pts) Intoxicated or Sedated No (0 pts) Impaired Gait No (0 pts) Mobility Assist Device Used No (0 pt) Altered Elimination No (0 pt) Score/Fall Risk Level 0 - 2 = Low Risk Oriented to surroundings, Maintained a safe environment, Assessed \\T\\ reinforced patient's understanding of fall precautions, Hourly rounding (assess needs \\T\\ fall precautionary measures) done. Abuse screen: Denies threats or abuse. Nutritional screening: No deficits noted. Tuberculosis screening: No symptoms or risk factors identified. Assessment: 01:39 Reassessment: See Triage assessment for full assessment. dd2 Vital Signs: 01:34 BP 122 / 66; Pulse 86; Resp 17; Temp 98.2; Pulse Ox 98% on R/A; Pain 6/10; dd2 01:53 Weight 125.19 kg (R); dd2 02:00 BP 126 / 68; Pulse 83; Resp 17; Pulse Ox 97% ; Pain 6/10; dd2 04:47 BP 123 / 64; Pulse 81; Resp 16; Pulse Ox 97% ; Pain 0/10; dd2 01:34 Pain Scale: Adult dd2 02:00 Pain Scale: Adult dd2 04:47 Pain Scale: Adult dd2 [place] Coma Score: 05:14 Eye Response: spontaneous(4). Motor Response: obeys commands(6). Verbal Response: sp4 oriented(5). Total: 15. ED Course: 01:14 Patient arrived in ED. gm2 01:21 ALTAGRACIA THOMPSON RN is Primary Nurse. dd2 01:34 Merlin Faria MD is Attending Physician. vc1 01:35 Triage completed. dd2 01:35 Arm band placed on left wrist. Patient placed in an exam room, on a stretcher, on pulse dd2 oximetry. 01:39 Patient has correct armband on for positive identification. Bed in low position. Call dd2 light in reach. 01:39 Client placed on continuous cardiac and pulse oximetry monitoring. NIBP monitoring dd2 applied. Door closed. Noise minimized. Pillow given. Verbal reassurance given. 02:03 Inserted saline lock: 20 gauge in right antecubital area, using aseptic technique. sa1 Blood collected. Flushed with 10 mL NS. 02:20 CBC with Diff Sent. dd2 02:20 CMP Sent. dd2 02:20 Lipase Sent. dd2 02:20 Test, Urine Sent. dd2 02:20 Urinalysis w/ reflexes Sent. dd2 02:21 Initial lab(s) drawn, by ED staff, sent to lab. Urine collected: clean catch specimen, dd2 king colored. Inserted saline lock: 20 gauge in right antecubital area, using aseptic technique. Blood collected. Flushed with 10 mL NS. 03:25 CT Abd/Pelvis - IV Contrast Only In Process Unspecified. EDMS 05:30 Provided Education on: d/c education. dd2 05:30 No provider procedures requiring assistance completed. IV discontinued, intact, dd2 bleeding controlled, No redness/swelling at site. Pressure dressing applied. Administered Medications: 02:19 Drug: Famotidine IVP 20 mg IVP once; dilute with 10 mL 0.9% NaCl; give over 2 minutes dd2 Route: IVP; Site: right antecubital; 02:34 Follow up: Response: No adverse reaction dd2 02:20 Drug: Ketorolac IVP 30 mg IVP once Route: IVP; Site: right antecubital; dd2 02:35 Follow up: Response: No adverse reaction dd2 02:20 Drug: Ondansetron IVP 4 mg IVP once; over 2 minutes Route: IVP; Site: right antecubital;dd2 02:35 Follow up: Response: No adverse reaction dd2 02:20 Drug: NS 0.9% IV 1000 ml IV at 125 ml/hr continuous Route: IV; Rate: 125 ml/hr; Site: dd2 right antecubital; 02:35 Follow up: Response: No adverse reaction dd2 03:20 Follow up: IV Status: Completed infusion; IV Intake: 1000ml dd2 Medication: 01:39 VIS not applicable for this client. dd2 Intake: 03:20 IV: 1000ml; Total: 1000ml. dd2 Outcome: 05:10 Discharge ordered by . sp4 05:30 Discharged to home ambulatory, dd2 05:30 Condition: stable 05:30 Discharge instructions given to patient, Instructed on discharge instructions, follow up and referral plans. medication usage, Demonstrated understanding of instructions, follow-up care, medications, Prescriptions given X 3, 05:31 Patient left the ED. dd2 Signatures: Dispatcher [employer] EDLindsay Castro RN RN 1 Merlin Faria MD MD sp4 Ese Longoria 2 Sultan Anuj 1 ALTAGRACIA THOMPSON RN RN dd2
--- NOTE | 2024-07-30 05:10 | EDPHYS ---
Physician Documentation [facility] Name: Priscilla Solo Age: 39 yrs Sex: Female : 1985 Arrival Date: 07/30/2024 Time: 01:03 Bed 19 Private MD: ED Physician Merlin Faria HPI: 07/30 04:58 This 39 yrs old Female presents to ER via Ambulatory with complaints of sp4 Abdominal Pain. 05:12 Patient is a very pleasant 39-year-old female presents with complaint of diffuse sp4 abdominal discomfort for the past 3 to 4 months. 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 - Infectious Disease History:: Denies. - Social history:: Smoking status: Patient denies any tobacco usage or history of. - Family history:: not pertinent. ROS: 05:12 Constitutional: Negative for fever, chills, and weight loss, sp4 05:14 Constitutional: Negative for fever, chills, and weight loss, positive for abdominal sp4 pain diffuse in nature 05:14 All other systems are negative, Exam: 05:14 Constitutional: This is a well developed, well nourished patient who is awake, alert, sp4 and in no acute distress. Head/Face: Normocephalic, atraumatic. Eyes: Pupils equal round and reactive to light, extra-ocular motions intact. Lids and lashes normal. Conjunctiva and sclera are not injected. Cornea within normal limits. Periorbital areas with no swelling, redness, or edema. ENT: Nares patent. No nasal discharge, no septal abnormalities noted. Tympanic membranes are normal and external auditory canals are clear. Oropharynx with no redness, swelling, or masses, exudates, or evidence of obstruction, uvula midline. Mucous membranes moist. Neck: Trachea midline, no thyromegaly or masses palpated, and no cervical lymphadenopathy. Supple, full range of motion without nuchal rigidity, or vertebral point tenderness. Chest/axilla: Normal chest wall appearance and motion. Nontender with no deformity. No lesions are appreciated. Cardiovascular: Regular rate and rhythm with a normal S1 and S2. No gallops, murmurs, or rubs. Normal PMI, no JVD. No pulse deficits. Respiratory: Lungs have equal breath sounds bilaterally, clear to auscultation and percussion. No rales, rhonchi or wheezes noted. No increased work of breathing, no retractions or nasal flaring. Abdomen/GI: Soft, with normal bowel sounds. No distension or tympany. No guarding or rebound. No evidence of tenderness throughout. Back: No spinal tenderness. No costovertebral tenderness. Skin: Warm, dry with normal turgor. Normal color with no rashes, no lesions, and no evidence of cellulitis. MS/ Extremity: Pulses equal, no cyanosis. Neurovascular intact. Full, normal range of motion. Neuro: Awake and alert, GCS 15, oriented to person, place, time, and situation. Cranial nerves II-XII grossly intact. Motor strength 5/5 in all extremities. Sensory grossly intact. Psych: Awake, alert, with orientation to person, place and time. Behavior, mood, and affect are within normal limits Vital Signs: 01:34 BP 122 / 66; Pulse 86; Resp 17; Temp 98.2; Pulse Ox 98% on R/A; Pain 6/10; dd2 01:53 Weight 125.19 kg (R); dd2 02:00 BP 126 / 68; Pulse 83; Resp 17; Pulse Ox 97% ; Pain 6/10; dd2 04:47 BP 123 / 64; Pulse 81; Resp 16; Pulse Ox 97% ; Pain 0/10; dd2 01:34 Pain Scale: Adult dd2 02:00 Pain Scale: Adult dd2 04:47 Pain Scale: Adult dd2 [place] Coma Score: 05:14 Eye Response: spontaneous(4). Motor Response: obeys commands(6). Verbal Response: sp4 oriented(5). Total: 15. MDM: 01:46 Patient medically screened. sp4 04:59 ED course: CTABDOMEN PELVIS WITH IV CONTRAST CLINICAL INDICATION: Abdominal pain sp4 COMPARISON: CT chest abdomen and pelvis 12/20/2023 TECHNIQUE: CT images of the abdomen and pelvis obtained following administration of intravenous contrast. Multiplanar reformats were provided. Dose-optimization techniques such as automated exposure control, iterative reconstruction, and mA and/or kV adjustment for patient size was utilized for this examination. FINDINGS: LOWER CHEST: Unremarkable. LIVER: Diffuse fatty infiltration of the liver without focal lesion. BILIARY: Gallbladder is contracted otherwise unremarkable. No biliary ductal dilatation. PANCREAS: Unremarkable. SPLEEN: Mildly enlarged, measuring up to 14.4 cm. ADRENALS: Unremarkable. KIDNEYS/URETERS: Symmetrical nephrogram without nephrolithiasis, hydronephrosis or suspicious mass lesion. BOWEL/STOMACH: Unremarkable. APPENDIX: Appendix is not definitively visualized. No focal inflammation in right lower quadrant to suggest acute appendicitis. MESENTERY/PERITONEUM: Unremarkable. RETROPERITONEUM: No adenopathy. URINARYBLADDER: Unremarkable. REPRODUCTIVE: 2.9 cm rim-enhancing structure in left ovary, likely a corpus luteal cyst; no follow-up imaging is recommended. VASCULAR: Unremarkable. ABDOMINAL/PELVIC WALL: Several small fat containing periumbilical ventral hernias. Mild] infiltration in the anterior and posterior abdominal wall may represent edema related to body habitus. BONES: No acute findings. No compression deformity, nor osteolytic or sclerotic lesion. IMPRESSION: 1. No acute inflammatory process in the abdomen and pelvis. 2. Hepatic steatosis. 3. Mild splenomegaly. . 05:08 Differential diagnosis: Cholelithiasis, diverticulitis, Endometriosis, gastritis, sp4 non-specific abd pain. Data reviewed: vital signs, nurses notes, lab test result(s), radiologic studies, CT scan. Consideration of Admission/Observation Escalation of care including admission/observation considered. ED course: Positive for hepatic steatosis and elevated blood sugar with signs of type 2 diabetes. Patient will be advised to lose weight, consume diabetic diet, will provide metformin and glipizide. 07/30 01:46 Order name: CBC with Diff; Complete Time: sp4 07/30 01:46 Order name: CMP; Complete Time: : sp4 07/30 01:46 Order name: Lipase; Complete Time: : sp4 07/30 01:46 Order name: Test, Urine; Complete Time: sp4 07/30 01:46 Order name: Urinalysis w/ reflexes; Complete Time: 04: sp4 07/30 01:54 Order name: CT Abd/Pelvis - IV Contrast Only sp4 07/30 01:46 Order name: IV Saline Lock; Complete Time: 02:20 sp4 07/30 01:46 Order name: Labs collected and sent; Complete Time: 02:20 sp4 Administered Medications: 02:19 Drug: Famotidine IVP 20 mg IVP once; dilute with 10 mL 0.9% NaCl; give over 2 minutes dd2 Route: IVP; Site: right antecubital; 02:34 Follow up: Response: No adverse reaction dd2 02:20 Drug: Ketorolac IVP 30 mg IVP once Route: IVP; Site: right antecubital; dd2 02:35 Follow up: Response: No adverse reaction dd2 02:20 Drug: Ondansetron IVP 4 mg IVP once; over 2 minutes Route: IVP; Site: right antecubital;dd2 02:35 Follow up: Response: No adverse reaction dd2 02:20 Drug: NS 0.9% IV 1000 ml IV at 125 ml/hr continuous Route: IV; Rate: 125 ml/hr; Site: dd2 right antecubital; 02:35 Follow up: Response: No adverse reaction dd2 03:20 Follow up: IV Status: Completed infusion; IV Intake: 1000ml dd2 Disposition Summary: 07/30/24 05:10 Discharge Ordered Notes: Location: Home sp4 Problem: new sp4 Symptoms: have improved sp4 Condition: Stable sp4 Diagnosis - Diffuse abdominal pain, hepatic steatosis, new onset type 2 diabetes with sp4 hyperglycemia. - Type 2 diabetes mellitus with hyperglycemia sp4 Followup: sp4 - With: Private Physician - When: 7 - 10 days - Reason: Recheck today's complaints Discharge Instructions: - Discharge Summary Sheet sp4 - Type 2 Diabetes Mellitus, Diagnosis, Adult sp4 - Diabetes Mellitus and Nutrition, Adult sp4 Forms: - Patient Portal Instructions sp4 Prescriptions: - Ibuprofen 800 mg Oral Tablet - take 1 tablet ORAL route every 8 hours As needed take with food; 30 tablet; sp4 Refills: 0, Product Selection Permitted - Glipizide 5 mg Oral tablet - take 0.5 tablet ORAL route once daily before a meal; 30 tablet; Refills: 0, sp4 Product Selection Permitted - Metformin 1,000 mg Oral tablet - take 1 tablet ORAL route every 12 hours with morning and evening meals; 180 sp4 tablet; Refills: 0, Product Selection Permitted Signatures: Dispatcher [employer] Merlin Rosario MD MD sp4 ALTAGRACIA THOMPSON RN RN dd2
[2024-07-30 12:46] VITALS: TEMP 98.2
[2024-07-30 12:48] VITALS: O2SAT 97
[2024-07-30 12:50] VITALS: BP 123/64
== END 2024-07-30 05:31 | disposition home or self-care (01) ==
LOC: ER 01:03
DX: K76.0 Fatty (change of) liver, not elsewhere classified (principal); E11.65 Type 2 diabetes mellitus with hyperglycemia; I10 Essential (primary) hypertension; I50.9 Heart failure, unspecified
CPT/HCPCS: 96361; 85025; 81001; 36415; 81025; 83690; 80053; 74177; 96375; 96374; 99284; Q9967; J2405; J7030

== ENCOUNTER 2024-08-23 22:55 | Emergency (ER) | payer OTHER ==
--- OUTSIDE RECORDS SUMMARY | 2024-08-23 23:01 | XMS REPORT | Continuity of Care Document ---
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 [facility] Immunizations Ordered Immunization Name Filled Immunization Name Date Status Comments Source HPV9 2024-07-27 00:00:00 Completed HPV9 2024-07-27 00:00:00 Completed [facility] HPV9 2024-07-27 00:00:00 Completed [facility] HPV9 2023-02-21 00:00:00 Completed [facility] HPV9 2023-02-21 00:00:00 Completed [facility] HPV9 2023-02-21 00:00:00 Completed [facility] HPV9 2023-02-21 00:00:00 Completed [facility] HPV9 2023-02-21 00:00:00 Completed [facility] HPV9 2023-02-21 00:00:00 Completed [facility] HPV9 2023-02-21 00:00:00 Completed [facility] HPV9 2023-02-21 00:00:00 Completed [facility] HPV9 2023-02-21 00:00:00 Completed [facility] TDAP 2017-10-16 00:00:00 Completed [facility] Influenza Virus Vaccine Quad IM 3+ YRS 2017-10-16 00:00:00 Completed [facility] TDAP 2017-10-16 00:00:00 Completed [facility] Influenza Virus Vaccine Quad IM 3+ YRS 2017-10-16 00:00:00 Completed [facility] TDAP 2017-10-16 00:00:00 Completed [facility] Influenza Virus Vaccine Quad IM 3+ YRS 2017-10-16 00:00:00 Completed [facility] TDAP 2017-10-16 00:00:00 Completed [facility] Influenza Virus Vaccine Quad IM 3+ YRS 2017-10-16 00:00:00 Completed [facility] TDAP 2017-10-16 00:00:00 Completed [facility] Influenza Virus Vaccine Quad IM 3+ YRS 2017-10-16 00:00:00 Completed [facility] TDAP 2017-10-16 00:00:00 Completed [facility] Influenza Virus Vaccine Quad IM 3+ YRS 2017-10-16 00:00:00 Completed [facility] TDAP 2017-10-16 00:00:00 Completed [facility] Influenza Virus Vaccine Quad IM 3+ YRS 2017-10-16 00:00:00 Completed [facility] Tdap 2017-10-16 00:00:00 Completed [facility] Influenza Virus Vaccine Quad IM 3+ YRS 2017-10-16 00:00:00 Completed [facility] TDAP 2017-10-16 00:00:00 Completed [facility] Influenza Virus Vaccine Quad IM 3+ YRS 2017-10-16 00:00:00 Completed [facility] Tdap 2017-10-16 00:00:00 Completed [facility] Influenza Virus Vaccine Quad IM 3+ YRS 2017-10-16 00:00:00 Completed [facility] Tdap 2017-10-16 00:00:00 Completed [facility] Influenza Virus Vaccine Quad IM 3+ YRS 2017-10-16 00:00:00 Completed [facility] Tdap 2017-10-16 00:00:00 Completed [facility] Influenza Virus Vaccine Quad IM 3+ YRS 2017-10-16 00:00:00 Completed [facility] TDAP 2017-10-16 00:00:00 Completed [facility] Influenza Virus Vaccine Quad IM 3+ YRS 2017-10-16 00:00:00 Completed TDAP 2017-10-16 00:00:00 Completed [facility] Influenza Virus Vaccine Quad IM 3+ YRS 2017-10-16 00:00:00 Completed TDAP 2017-10-16 00:00:00 Completed [facility] Influenza Virus Vaccine Quad IM 3+ YRS 2017-10-16 00:00:00 Completed Tdap 2017-10-16 00:00:00 Completed [facility] Influenza Virus Vaccine Quad IM 3+ YRS 2017-10-16 00:00:00 Completed [facility] TDAP 2017-10-16 00:00:00 Completed [facility] Influenza Virus Vaccine Quad IM 3+ YRS 2017-10-16 00:00:00 Completed [facility] TDAP 2017-10-16 00:00:00 Completed [facility] Influenza Virus Vaccine Quad IM 3+ YRS 2017-10-16 00:00:00 Completed [facility] TDAP 2017-10-16 00:00:00 Completed [facility] Influenza Virus Vaccine Quad IM 3+ YRS 2017-10-16 00:00:00 Completed [facility] Tdap 2017-10-16 00:00:00 Completed [facility] Influenza Virus Vaccine Quad IM 3+ YRS 2017-10-16 00:00:00 Completed [facility] TDAP 2017-10-16 00:00:00 Completed [facility] Influenza Virus Vaccine Quad IM 3+ YRS 2017-10-16 00:00:00 Completed [facility] TDAP 2017-10-16 00:00:00 Completed [facility] Influenza Virus Vaccine Quad IM 3+ YRS 2017-10-16 00:00:00 Completed [facility] TDAP 2017-10-16 00:00:00 Completed [facility] Influenza Virus Vaccine Quad IM 3+ YRS 2017-10-16 00:00:00 Completed [facility] Tdap 2017-10-16 00:00:00 Completed [facility] Influenza Virus Vaccine Quad IM 3+ YRS 2017-10-16 00:00:00 Completed [facility] TDAP 2017-10-16 00:00:00 Completed [facility] Influenza Virus Vaccine Quad IM 3+ YRS 2017-10-16 00:00:00 Completed [facility] TDAP 2017-10-16 00:00:00 Completed [facility] Influenza Virus Vaccine Quad IM 3+ YRS 2017-10-16 00:00:00 Completed [facility] TDAP 2017-10-16 00:00:00 Completed [facility] Influenza Virus Vaccine Quad IM 3+ YRS 2017-10-16 00:00:00 Completed [facility] TDAP 2017-10-16 00:00:00 Completed [facility] Influenza Virus Vaccine Quad IM 3+ YRS 2017-10-16 00:00:00 Completed [facility] TDAP 2017-10-16 00:00:00 Completed [facility] Influenza Virus Vaccine Quad IM 3+ YRS 2017-10-16 00:00:00 Completed [facility] TDAP 2017-10-16 00:00:00 Completed [facility] Influenza Virus Vaccine Quad IM 3+ YRS 2017-10-16 00:00:00 Completed [facility] Tdap 2017-10-16 00:00:00 Completed [facility] Influenza Virus Vaccine Quad IM 3+ YRS 2017-10-16 00:00:00 Completed [facility] TDAP 2017-10-16 00:00:00 Completed [facility] Influenza Virus Vaccine Quad IM 3+ YRS 2017-10-16 00:00:00 Completed [facility] TDAP 2017-10-16 00:00:00 Completed [facility] Influenza Virus Vaccine Quad IM 3+ YRS 2017-10-16 00:00:00 Completed [facility] TDAP 2017-10-16 00:00:00 Completed [facility] Influenza Virus Vaccine Quad IM 3+ YRS 2017-10-16 00:00:00 Completed [facility] TDAP 2017-10-16 00:00:00 Completed [facility] Influenza Virus Vaccine Quad IM 3+ YRS 2017-10-16 00:00:00 Completed [facility] TDAP 2017-10-16 00:00:00 Completed [facility] Influenza Virus Vaccine Quad IM 3+ YRS 2017-10-16 00:00:00 Completed [facility] Tdap 2017-10-16 00:00:00 Completed [facility] Influenza Virus Vaccine Quad IM 3+ YRS 2017-10-16 00:00:00 Completed [facility] TDAP 2017-10-16 00:00:00 Completed [facility] Influenza Virus Vaccine Quad IM 3+ YRS 2017-10-16 00:00:00 Completed [facility] TDAP 2017-10-16 00:00:00 Completed [facility] Influenza Virus Vaccine Quad IM 3+ YRS 2017-10-16 00:00:00 Completed [facility] TDAP 2017-10-16 00:00:00 Completed [facility] Influenza Virus Vaccine Quad IM 3+ YRS 2017-10-16 00:00:00 Completed [facility] TDAP 2017-10-16 00:00:00 Completed [facility] Influenza Virus Vaccine Quad IM 3+ YRS 2017-10-16 00:00:00 Completed [facility] TDAP 2017-10-16 00:00:00 Completed [facility] Influenza Virus Vaccine Quad IM 3+ YRS 2017-10-16 00:00:00 Completed [facility] TDAP 2017-10-16 00:00:00 Completed [facility] Influenza Virus Vaccine Quad IM 3+ YRS 2017-10-16 00:00:00 Completed [facility] TDAP 2017-10-16 00:00:00 Completed [facility] Influenza Virus Vaccine Quad IM 3+ YRS 2017-10-16 00:00:00 Completed [facility] TDAP 2017-10-16 00:00:00 Completed [facility] Influenza Virus Vaccine Quad IM 3+ YRS 2017-10-16 00:00:00 Completed [facility] Tdap 2017-10-16 00:00:00 Completed [facility] Influenza Virus Vaccine Quad IM 3+ YRS 2017-10-16 00:00:00 Completed [facility] TDAP 2017-10-16 00:00:00 Completed [facility] Influenza Virus Vaccine Quad IM 3+ YRS 2017-10-16 00:00:00 Completed [facility] TDAP 2017-10-16 00:00:00 Completed [facility] Influenza Virus Vaccine Quad IM 3+ YRS 2017-10-16 00:00:00 Completed [facility] TDAP 2017-10-16 00:00:00 Completed [facility] Influenza Virus Vaccine Quad IM 3+ YRS 2017-10-16 00:00:00 Completed [facility] TDAP 2017-10-16 00:00:00 Completed [facility] Influenza Virus Vaccine Quad IM 3+ YRS 2017-10-16 00:00:00 Completed [facility] TDAP 2017-10-16 00:00:00 Completed [facility] Influenza Virus Vaccine Quad IM 3+ YRS 2017-10-16 00:00:00 Completed [facility] Tdap 2017-10-16 00:00:00 Completed [facility] Influenza Virus Vaccine Quad IM 3+ YRS 2017-10-16 00:00:00 Completed [facility] TDAP 2017-10-16 00:00:00 Completed [facility] Influenza Virus Vaccine Quad IM 3+ YRS 2017-10-16 00:00:00 Completed [facility] TDAP 2017-10-16 00:00:00 Completed [facility] Influenza Virus Vaccine Quad IM 3+ YRS 2017-10-16 00:00:00 Completed [facility] TDAP 2016-01-18 00:00:00 Completed [facility] Tdap 2016-01-18 00:00:00 Completed [facility] TDAP 2016-01-18 00:00:00 Completed [facility] TDAP 2016-01-18 00:00:00 Completed [facility] TDAP 2016-01-18 00:00:00 Completed [facility] TDAP 2016-01-18 00:00:00 Completed [facility] TDAP 2016-01-18 00:00:00 Completed [facility] Tdap 2016-01-18 00:00:00 Completed [facility] TDAP 2016-01-18 00:00:00 Completed [facility] TDAP 2016-01-18 00:00:00 Completed [facility] TDAP 2016-01-18 00:00:00 Completed [facility] TDAP 2016-01-18 00:00:00 Completed [facility] TDAP 2016-01-18 00:00:00 Completed [facility] TDAP 2016-01-18 00:00:00 Completed [facility] TDAP 2016-01-18 00:00:00 Completed [facility] TDAP 2016-01-18 00:00:00 Completed [facility] TDAP 2016-01-18 00:00:00 Completed [facility] Tdap 2016-01-18 00:00:00 Completed [facility] TDAP 2016-01-18 00:00:00 Completed [facility] Tdap 2016-01-18 00:00:00 Completed [facility] Tdap 2016-01-18 00:00:00 Completed [facility] Tdap 2016-01-18 00:00:00 Completed [facility] TDAP 2016-01-18 00:00:00 Completed [facility] TDAP 2016-01-18 00:00:00 Completed [facility] TDAP 2016-01-18 00:00:00 Completed [facility] Tdap 2016-01-18 00:00:00 Completed [facility] TDAP 2016-01-18 00:00:00 Completed [facility] TDAP 2016-01-18 00:00:00 Completed [facility] TDAP 2016-01-18 00:00:00 Completed [facility] Tdap 2016-01-18 00:00:00 Completed [facility] TDAP 2016-01-18 00:00:00 Completed [facility] TDAP 2016-01-18 00:00:00 Completed [facility] TDAP 2016-01-18 00:00:00 Completed [facility] Tdap 2016-01-18 00:00:00 Completed [facility] TDAP 2016-01-18 00:00:00 Completed [facility] TDAP 2016-01-18 00:00:00 Completed [facility] TDAP 2016-01-18 00:00:00 Completed [facility] TDAP 2016-01-18 00:00:00 Completed [facility] TDAP 2016-01-18 00:00:00 Completed [facility] Tdap 2016-01-18 00:00:00 Completed [facility] TDAP 2016-01-18 00:00:00 Completed [facility] TDAP 2016-01-18 00:00:00 Completed [facility] TDAP 2016-01-18 00:00:00 Completed [facility] TDAP 2016-01-18 00:00:00 Completed [facility] TDAP 2016-01-18 00:00:00 Completed [facility] Tdap 2016-01-18 00:00:00 Completed [facility] TDAP 2016-01-18 00:00:00 Completed [facility] TDAP 2016-01-18 00:00:00 Completed [facility] TDAP 2016-01-18 00:00:00 Completed [facility] TDAP 2016-01-18 00:00:00 Completed [facility] TDAP 2016-01-18 00:00:00 Completed [facility] TDAP 2016-01-18 00:00:00 Completed [facility] TDAP 2016-01-18 00:00:00 Completed [facility] TDAP 2016-01-18 00:00:00 Completed [facility] TDAP 2014-05-18 00:00:00 Completed [facility] Tdap 2014-05-18 00:00:00 Completed [facility] TDAP 2014-05-18 00:00:00 Completed [facility] TDAP 2014-05-18 00:00:00 Completed [facility] TDAP 2014-05-18 00:00:00 Completed [facility] TDAP 2014-05-18 00:00:00 Completed [facility] Tdap 2014-05-18 00:00:00 Completed [facility] TDAP 2014-05-18 00:00:00 Completed [facility] TDAP 2014-05-18 00:00:00 Completed [facility] TDAP 2014-05-18 00:00:00 Completed [facility] TDAP 2014-05-18 00:00:00 Completed [facility] TDAP 2014-05-18 00:00:00 Completed [facility] TDAP 2014-05-18 00:00:00 Completed [facility] TDAP 2014-05-18 00:00:00 Completed [facility] TDAP 2014-05-18 00:00:00 Completed [facility] TDAP 2014-05-18 00:00:00 Completed [facility] TDAP 2014-05-18 00:00:00 Completed [facility] Tdap 2014-05-18 00:00:00 Completed [facility] TDAP 2014-05-18 00:00:00 Completed [facility] Tdap 2014-05-18 00:00:00 Completed [facility] Tdap 2014-05-18 00:00:00 Completed [facility] Tdap 2014-05-18 00:00:00 Completed [facility] TDAP 2014-05-18 00:00:00 Completed [facility] TDAP 2014-05-18 00:00:00 Completed [facility] TDAP 2014-05-18 00:00:00 Completed [facility] Tdap 2014-05-18 00:00:00 Completed [facility] Tdap 2014-05-18 00:00:00 Completed [facility] TDAP 2014-05-18 00:00:00 Completed [facility] TDAP 2014-05-18 00:00:00 Completed [facility] TDAP 2014-05-18 00:00:00 Completed [facility] Tdap 2014-05-18 00:00:00 Completed [facility] TDAP 2014-05-18 00:00:00 Completed [facility] TDAP 2014-05-18 00:00:00 Completed [facility] Tdap 2014-05-18 00:00:00 Completed [facility] TDAP 2014-05-18 00:00:00 Completed [facility] TDAP 2014-05-18 00:00:00 Completed [facility] TDAP 2014-05-18 00:00:00 Completed [facility] TDAP 2014-05-18 00:00:00 Completed [facility] TDAP 2014-05-18 00:00:00 Completed [facility] Tdap 2014-05-18 00:00:00 Completed [facility] TDAP 2014-05-18 00:00:00 Completed [facility] TDAP 2014-05-18 00:00:00 Completed [facility] TDAP 2014-05-18 00:00:00 Completed [facility] TDAP 2014-05-18 00:00:00 Completed [facility] TDAP 2014-05-18 00:00:00 Completed [facility] TDAP 2014-05-18 00:00:00 Completed [facility] Tdap 2014-05-18 00:00:00 Completed [facility] TDAP 2014-05-18 00:00:00 Completed [facility] TDAP 2014-05-18 00:00:00 Completed [facility] TDAP 2014-05-18 00:00:00 Completed [facility] TDAP 2014-05-18 00:00:00 Completed [facility] TDAP 2014-05-18 00:00:00 Completed [facility] TDAP 2014-05-18 00:00:00 Completed [facility] TDAP 2014-05-18 00:00:00 Completed [facility] TDAP 2014-05-18 00:00:00 Completed [facility] Pneumococcal Polysaccharide, PPSV23 (PNEUMOVAX) 2008-05-11 00:00:00 Completed [facility] Pneumococcal Polysaccharide, PPSV23 (PNEUMOVAX) 2008-05-11 00:00:00 Completed [facility] Pneumococcal Polysaccharide, PPSV23 (PNEUMOVAX) 2008-05-11 00:00:00 Completed [facility] Pneumococcal Polysaccharide, PPSV23 (PNEUMOVAX) 2008-05-11 00:00:00 Completed [facility] Pneumococcal Polysaccharide, PPSV23 (PNEUMOVAX) 2008-05-11 00:00:00 Completed [facility] Pneumococcal Polysaccharide, PPSV23 (PNEUMOVAX) 2008-05-11 00:00:00 Completed [facility] Pneumococcal Polysaccharide, PPSV23 (PNEUMOVAX) 2008-05-11 00:00:00 Completed [facility] Pneumococcal Polysaccharide, PPSV23 (PNEUMOVAX) 2008-05-11 00:00:00 Completed [facility] Pneumococcal Polysaccharide, PPSV23 (PNEUMOVAX) 2008-05-11 00:00:00 Completed [facility] Pneumococcal Polysaccharide, PPSV23 (PNEUMOVAX) 2008-05-11 00:00:00 Completed [facility] Pneumococcal Polysaccharide, PPSV23 (PNEUMOVAX) 2008-05-11 00:00:00 Completed [facility] Pneumococcal Polysaccharide, PPSV23 (PNEUMOVAX) 2008-05-11 00:00:00 Completed [facility] Pneumococcal Polysaccharide, PPSV23 (PNEUMOVAX) 2008-05-11 00:00:00 Completed [facility] Pneumococcal Polysaccharide, PPSV23 (PNEUMOVAX) 2008-05-11 00:00:00 Completed [facility] Pneumococcal Polysaccharide, PPSV23 (PNEUMOVAX) 2008-05-11 00:00:00 Completed [facility] Pneumococcal Polysaccharide, PPSV23 (PNEUMOVAX) 2008-05-11 00:00:00 Completed [facility] Pneumococcal Polysaccharide, PPSV23 (PNEUMOVAX) 2008-05-11 00:00:00 Completed [facility] Pneumococcal Polysaccharide, PPSV23 (PNEUMOVAX) 2008-05-11 00:00:00 Completed [facility] Pneumococcal Polysaccharide, PPSV23 (PNEUMOVAX) 2008-05-11 00:00:00 Completed [facility] Pneumococcal Polysaccharide, PPSV23 (PNEUMOVAX) 2008-05-11 00:00:00 Completed [facility] Pneumococcal Polysaccharide, PPSV23 (PNEUMOVAX) 2008-05-11 00:00:00 Completed [facility] Pneumococcal Polysaccharide, PPSV23 (PNEUMOVAX) 2008-05-11 00:00:00 Completed [facility] Pneumococcal Polysaccharide, PPSV23 (PNEUMOVAX) 2008-05-11 00:00:00 Completed [facility] Pneumococcal Polysaccharide, PPSV23 (PNEUMOVAX) 2008-05-11 00:00:00 Completed [facility] Pneumococcal Polysaccharide, PPSV23 (PNEUMOVAX) 2008-05-11 00:00:00 Completed [facility] Pneumococcal Polysaccharide, PPSV23 (PNEUMOVAX) 2008-05-11 00:00:00 Completed [facility] Pneumococcal Polysaccharide, PPSV23 (PNEUMOVAX) 2008-05-11 00:00:00 Completed [facility] Pneumococcal Polysaccharide, PPSV23 (PNEUMOVAX) 2008-05-11 00:00:00 Completed [facility] Pneumococcal Polysaccharide, PPSV23 (PNEUMOVAX) 2008-05-11 00:00:00 Completed [facility] Pneumococcal Polysaccharide, PPSV23 (PNEUMOVAX) 2008-05-11 00:00:00 Completed [facility] Pneumococcal Polysaccharide, PPSV23 (PNEUMOVAX) 2008-05-11 00:00:00 Completed [facility] Pneumococcal Polysaccharide, PPSV23 (PNEUMOVAX) 2008-05-11 00:00:00 Completed [facility] Pneumococcal Polysaccharide, PPSV23 (PNEUMOVAX) 2008-05-11 00:00:00 Completed [facility] Pneumococcal Polysaccharide, PPSV23 (PNEUMOVAX) 2008-05-11 00:00:00 Completed [facility] Pneumococcal Polysaccharide, PPSV23 (PNEUMOVAX) 2008-05-11 00:00:00 Completed [facility] Pneumococcal Polysaccharide, PPSV23 (PNEUMOVAX) 2008-05-11 00:00:00 Completed [facility] Pneumococcal Polysaccharide, PPSV23 (PNEUMOVAX) 2008-05-11 00:00:00 Completed [facility] Pneumococcal Polysaccharide, PPSV23 (PNEUMOVAX) 2008-05-11 00:00:00 Completed [facility] Pneumococcal Polysaccharide, PPSV23 (PNEUMOVAX) 2008-05-11 00:00:00 Completed [facility] Pneumococcal Polysaccharide, PPSV23 (PNEUMOVAX) 2008-05-11 00:00:00 Completed [facility] Pneumococcal Polysaccharide, PPSV23 (PNEUMOVAX) 2008-05-11 00:00:00 Completed [facility] Pneumococcal Polysaccharide, PPSV23 (PNEUMOVAX) 2008-05-11 00:00:00 Completed [facility] Pneumococcal Polysaccharide, PPSV23 (PNEUMOVAX) 2008-05-11 00:00:00 Completed [facility] Pneumococcal Polysaccharide, PPSV23 (PNEUMOVAX) 2008-05-11 00:00:00 Completed [facility] Pneumococcal Polysaccharide, PPSV23 (PNEUMOVAX) 2008-05-11 00:00:00 Completed [facility] Pneumococcal Polysaccharide, PPSV23 (PNEUMOVAX) 2008-05-11 00:00:00 Completed [facility] Pneumococcal Polysaccharide, PPSV23 (PNEUMOVAX) 2008-05-11 00:00:00 Completed [facility] Pneumococcal Polysaccharide, PPSV23 (PNEUMOVAX) 2008-05-11 00:00:00 Completed [facility] Pneumococcal Polysaccharide, PPSV23 (PNEUMOVAX) 2008-05-11 00:00:00 Completed [facility] Pneumococcal Polysaccharide, PPSV23 (PNEUMOVAX) 2008-05-11 00:00:00 Completed [facility] Pneumococcal Polysaccharide, PPSV23 (PNEUMOVAX) 2008-05-11 00:00:00 Completed [facility] Pneumococcal Polysaccharide, PPSV23 (PNEUMOVAX) 2008-05-11 00:00:00 Completed [facility] Pneumococcal Polysaccharide, PPSV23 (PNEUMOVAX) 2008-05-11 00:00:00 Completed [facility] Pneumococcal Polysaccharide, PPSV23 (PNEUMOVAX) 2008-05-11 00:00:00 Completed [facility] Pneumococcal Polysaccharide, PPSV23 (PNEUMOVAX) 2008-05-11 00:00:00 Completed [facility] Pneumococcal Polysaccharide, PPSV23 (PNEUMOVAX) Unknown Completed [facility] TDAP Unknown Completed [facility] Influenza Virus Vaccine Quad IM 3+ YRS Unknown Completed [facility] HPV9 Unknown Completed [facility] Pneumococcal Polysaccharide, PPSV23 (PNEUMOVAX) Unknown Completed [facility] TDAP Unknown Completed [facility] Influenza Virus Vaccine Quad IM 3+ YRS Unknown Completed [facility] Pneumococcal Polysaccharide, PPSV23 (PNEUMOVAX) Unknown Completed [facility] TDAP Unknown Completed [facility] Influenza Virus Vaccine Quad IM 3+ YRS Unknown Completed [facility] Pneumococcal Polysaccharide, PPSV23 (PNEUMOVAX) Unknown Completed [facility] TDAP Unknown Completed [facility] Influenza Virus Vaccine Quad IM 3+ YRS Unknown Completed [facility] Pneumococcal Polysaccharide, PPSV23 (PNEUMOVAX) Unknown Completed [facility] TDAP Unknown Completed [facility] Influenza Virus Vaccine Quad IM 3+ YRS Unknown Completed [facility] Pneumococcal Polysaccharide, PPSV23 (PNEUMOVAX) Unknown Completed [facility] TDAP Unknown Completed [facility] Influenza Virus Vaccine Quad IM 3+ YRS Unknown Completed [facility] Pneumococcal Polysaccharide, PPSV23 (PNEUMOVAX) Unknown Completed [facility] TDAP Unknown Completed [facility] Influenza Virus Vaccine Quad IM 3+ YRS Unknown Completed [facility] Pneumococcal Polysaccharide, PPSV23 (PNEUMOVAX) Unknown Completed [facility] TDAP Unknown Completed [facility] Influenza Virus Vaccine Quad IM 3+ YRS Unknown Completed [facility] Pneumococcal Polysaccharide, PPSV23 (PNEUMOVAX) Unknown Completed [facility] TDAP Unknown Completed [facility] Influenza Virus Vaccine Quad IM 3+ YRS Unknown Completed [facility] Pneumococcal Polysaccharide, PPSV23 (PNEUMOVAX) Unknown Completed [facility] TDAP Unknown Completed [facility] Influenza Virus Vaccine Quad IM 3+ YRS Unknown Completed [facility] Pneumococcal Polysaccharide, PPSV23 (PNEUMOVAX) Unknown Completed [facility] TDAP Unknown Completed [facility] Influenza Virus Vaccine Quad IM 3+ YRS Unknown Completed [facility] Pneumococcal Polysaccharide, PPSV23 (PNEUMOVAX) Unknown Completed [facility] TDAP Unknown Completed [facility] Influenza Virus Vaccine Quad IM 3+ YRS Unknown Completed [facility] Pneumococcal Polysaccharide, PPSV23 (PNEUMOVAX) Unknown Completed [facility] TDAP Unknown Completed [facility] Influenza Virus Vaccine Quad IM 3+ YRS Unknown Completed [facility] Pneumococcal Polysaccharide, PPSV23 (PNEUMOVAX) Unknown Completed [facility] TDAP Unknown Completed [facility] Influenza Virus Vaccine Quad IM 3+ YRS Unknown Completed [facility] HPV9 Unknown Completed [facility] Pneumococcal Polysaccharide, PPSV23 (PNEUMOVAX) Unknown Completed [facility] TDAP Unknown Completed [facility] Influenza Virus Vaccine Quad IM 3+ YRS Unknown Completed [facility] HPV9 Unknown Completed [facility] Pneumococcal Polysaccharide, PPSV23 (PNEUMOVAX) Unknown Completed [facility] Influenza Virus Vaccine Quad IM 3+ YRS Unknown Completed [facility] HPV9 Unknown Completed [facility] TDAP Unknown Completed [facility] Pneumococcal Polysaccharide, PPSV23 (PNEUMOVAX) Unknown Completed [facility] TDAP Unknown Completed [facility] Influenza Virus Vaccine Quad IM 3+ YRS Unknown Completed [facility] HPV9 Unknown Completed [facility] Pneumococcal Polysaccharide, PPSV23 (PNEUMOVAX) Unknown Completed [facility] Influenza Virus Vaccine Quad IM 3+ YRS Unknown Completed [facility] HPV9 Unknown Completed [facility] Pneumococcal Polysaccharide, PPSV23 (PNEUMOVAX) Unknown Completed [facility] Influenza Virus Vaccine Quad IM 3+ YRS Unknown Completed [facility] HPV9 Unknown Completed [facility] Pneumococcal Polysaccharide, PPSV23 (PNEUMOVAX) Unknown Completed [facility] TDAP Unknown Completed [facility] Influenza Virus Vaccine Quad IM 3+ YRS Unknown Completed [facility] HPV9 Unknown Completed [facility] TDAP Unknown Completed [facility] TDAP Unknown Completed [facility] Pneumococcal Polysaccharide, PPSV23 (PNEUMOVAX) Unknown Completed [facility] TDAP Unknown Completed [facility] Influenza Virus Vaccine Quad IM 3+ YRS Unknown Completed [facility] HPV9 Unknown Completed [facility] Vital Signs Vital Name Observation Time Observation Value Comments S ource Systolic blood pressure 2024-07-27 16:08:00 130 mm[Hg] [facility] Diastolic blood pressure 2024-07-27 16:08:00 92 mm[Hg] [facility] Heart rate 2024-07-27 16:03:00 81 /min [facility] Body temperature 2024-07-27 16:03:00 36.11 Zainab [facility] Respiratory rate 2024-07-27 16:03:00 18 /min [facility] Body height 2024-07-27 16:03:00 154.9 cm [facility] Body weight 2024-07-27 16:03:00 125.448 kg [facility] BMI 2024-07-27 16:03:00 52.26 kg/m2 [facility] Systolic blood pressure 2024-07-13 23:22:00 134 mm[Hg] [facility] Diastolic blood pressure 2024-07-13 23:22:00 83 mm[Hg] [facility] Heart rate 2024-07-13 23:22:00 81 /min [facility] Body temperature 2024-07-13 23:22:00 36.72 Zainab [facility] Respiratory rate 2024-07-13 23:22:00 18 /min [facility] Body weight 2024-07-13 23:22:00 124.875 kg [facility] BMI 2024-07-13 23:22:00 52.02 kg/m2 [facility] Oxygen saturation in Arterial blood by Pulse oximetry 2024-07-13 23:22:00 96 /min [facility] Systolic blood pressure 2024-04-05 16:16:00 137 mm[Hg] [facility] Diastolic blood pressure 2024-04-05 16:16:00 88 mm[Hg] [facility] Heart rate 2024-04-05 16:15:00 82 /min [facility] Body temperature 2024-04-05 16:15:00 37 Zainab [facility] Respiratory rate 2024-04-05 16:15:00 16 /min [facility] Body height 2024-04-05 16:15:00 154.9 cm [facility] Body weight 2024-04-05 16:15:00 125.646 kg [facility] BMI 2024-04-05 16:15:00 52.34 kg/m2 [facility] Oxygen saturation in Arterial blood by Pulse oximetry 2024-04-05 16:15:00 97 /min [facility] Systolic blood pressure 2024-02-02 15:44:00 114 mm[Hg] [facility] Diastolic blood pressure 2024-02-02 15:44:00 63 mm[Hg] [facility] Heart rate 2024-02-02 15:44:00 70 /min [facility] Body temperature 2024-02-02 15:44:00 37.17 Zainab [facility] Respiratory rate 2024-02-02 15:44:00 17 /min [facility] Body weight 2024-02-02 15:44:00 123.378 kg [facility] BMI 2024-02-02 15:44:00 51.39 kg/m2 [facility] Oxygen saturation in Arterial blood by Pulse oximetry 2024-02-02 15:44:00 97 /min [facility] Systolic blood pressure 2023-06-28 23:34:00 141 mm[Hg] [facility] Diastolic blood pressure 2023-06-28 23:34:00 86 mm[Hg] [facility] Heart rate 2023-06-28 23:33:00 107 /min [facility] Body temperature 2023-06-28 23:33:00 36.83 Zainab [facility] Respiratory rate 2023-06-28 23:33:00 18 /min [facility] Body height 2023-06-28 23:33:00 154.9 cm [facility] Body weight 2023-06-28 23:33:00 121.972 kg [facility] BMI 2023-06-28 23:33:00 50.81 kg/m2 [facility] Oxygen saturation in Arterial blood by Pulse oximetry 2023-06-28 23:33:00 98 /min [facility] Systolic blood pressure 2023-03-07 16:14:00 153 mm[Hg] [facility] Diastolic blood pressure 2023-03-07 16:14:00 89 mm[Hg] [facility] Heart rate 2023-03-07 16:13:00 79 /min [facility] Body temperature 2023-03-07 16:13:00 36.44 Zainab [facility] Respiratory rate 2023-03-07 16:13:00 16 /min [facility] Body weight 2023-03-07 16:13:00 123.378 kg [facility] BMI 2023-03-07 16:13:00 51.39 kg/m2 [facility] Oxygen saturation in Arterial blood by Pulse oximetry 2023-03-07 16:13:00 98 /min [facility] Systolic blood pressure 2023-02-21 13:28:00 128 mm[Hg] [facility] Diastolic blood pressure 2023-02-21 13:28:00 75 mm[Hg] [facility] Heart rate 2023-02-21 13:28:00 65 /min [facility] Body temperature 2023-02-21 13:28:00 36 Zainab [facility] Respiratory rate 2023-02-21 13:28:00 18 /min [facility] Body height 2023-02-21 13:28:00 154.9 cm [facility] Body weight 2023-02-21 13:28:00 122.244 kg [facility] BMI 2023-02-21 13:28:00 50.92 kg/m2 [facility] Systolic blood pressure 2022-11-24 20:34:00 155 mm[Hg] [facility] Diastolic blood pressure 2022-11-24 20:34:00 87 mm[Hg] [facility] Heart rate 2022-11-24 20:22:00 73 /min [facility] Body temperature 2022-11-24 20:22:00 36.67 Zainab [facility] Respiratory rate 2022-11-24 20:22:00 20 /min [facility] Body height 2022-11-24 20:22:00 154.9 cm [facility] Body weight 2022-11-24 20:22:00 123.605 kg [facility] BMI 2022-11-24 20:22:00 51.49 kg/m2 [facility] Oxygen saturation in Arterial blood by Pulse oximetry 2022-11-24 20:22:00 98 /min [facility] Systolic blood pressure 2022-07-17 15:56:00 137 mm[Hg] [facility] Diastolic blood pressure 2022-07-17 15:56:00 79 mm[Hg] [facility] Heart rate 2022-07-17 15:56:00 73 /min [facility] Body temperature 2022-07-17 15:56:00 37 Zainab [facility] Respiratory rate 2022-07-17 15:56:00 18 /min [facility] Body height 2022-07-17 15:56:00 154.9 cm [facility] Body weight 2022-07-17 15:56:00 123.242 kg [facility] BMI 2022-07-17 15:56:00 51.34 kg/m2 [facility] Oxygen saturation in Arterial blood by Pulse oximetry 2022-07-17 15:56:00 95 /min [facility] Systolic blood pressure 2022-06-13 00:43:00 152 mm[Hg] [facility] Diastolic blood pressure 2022-06-13 00:43:00 98 mm[Hg] [facility] Heart rate 2022-06-13 00:41:00 90 /min [facility] Body temperature 2022-06-13 00:41:00 37.17 Zainab [facility] Respiratory rate 2022-06-13 00:41:00 16 /min [facility] Body height 2022-06-13 00:41:00 154.9 cm [facility] Body weight 2022-06-13 00:41:00 126.508 kg [facility] BMI 2022-06-13 00:41:00 52.70 kg/m2 [facility] Oxygen saturation in Arterial blood by Pulse oximetry 2022-06-13 00:41:00 97 /min [facility] Systolic blood pressure 2022-04-14 18:03:00 126 mm[Hg] [facility] Diastolic blood pressure 2022-04-14 18:03:00 87 mm[Hg] [facility] Heart rate 2022-04-14 18:03:00 83 /min [facility] Body temperature 2022-04-14 18:03:00 36.89 Zainab [facility] Respiratory rate 2022-04-14 18:03:00 18 /min [facility] Body height 2022-04-14 18:03:00 154.9 cm [facility] Body weight 2022-04-14 18:03:00 126.508 kg [facility] BMI 2022-04-14 18:03:00 52.70 kg[facility]2 [facility] Oxygen saturation in Arterial blood by Pulse oximetry 2022-04-14 18:03:00 97 /min [facility] Body weight 2022-04-03 18:36:00 126.554 kg [facility] BMI 2022-04-03 18:36:00 52.72 kg/m2 [facility] Oxygen saturation in Arterial blood by Pulse oximetry 2022-04-03 18:36:00 97 /min [facility] Systolic blood pressure 2022-04-03 18:36:00 146 mm[Hg] [facility] Diastolic blood pressure 2022-04-03 18:36:00 86 mm[Hg] [facility] Heart rate 2022-04-03 18:36:00 84 /min [facility] Body temperature 2022-04-03 18:36:00 37.11 Zainab [facility] Respiratory rate 2022-04-03 18:36:00 18 /min [facility] Body height 2022-04-03 18:36:00 154.9 cm [facility] Systolic blood pressure 2022-03-19 14:01:00 154 mm[Hg] [facility] Diastolic blood pressure 2022-03-19 14:01:00 82 mm[Hg] [facility] Heart rate 2022-03-19 14:01:00 61 /min [facility] Body temperature 2022-03-19 14:01:00 36.83 Zainab [facility] Respiratory rate 2022-03-19 14:01:00 18 /min [facility] Body height 2022-03-19 14:01:00 154.9 cm [facility] Body weight 2022-03-19 14:01:00 124.739 kg [facility] BMI 2022-03-19 14:01:00 51.96 kg/m2 [facility] Oxygen saturation in Arterial blood by Pulse oximetry 2022-03-19 14:01:00 100 /min [facility] Systolic blood pressure 2021-10-01 18:26:00 111 mm[Hg] [facility] Diastolic blood pressure 2021-10-01 18:26:00 76 mm[Hg] [facility] Heart rate 2021-10-01 18:26:00 103 /min [facility] Body temperature 2021-10-01 18:26:00 36.89 Zainab [facility] Respiratory rate 2021-10-01 18:26:00 16 /min [facility] Body height 2021-10-01 18:26:00 154.9 cm [facility] Body weight 2021-10-01 18:26:00 129.048 kg [facility] BMI 2021-10-01 18:26:00 53.76 kg/m2 [facility] Oxygen saturation in Arterial blood by Pulse oximetry 2021-10-01 18:26:00 100 /min [facility] Heart rate 2020-08-04 21:50:00 74 /min [facility] Respiratory rate 2020-08-04 21:50:00 23 /min [facility] Oxygen saturation in Arterial blood by Pulse oximetry 2020-08-04 21:50:00 95 /min [facility] Systolic blood pressure 2020-08-04 21:35:00 106 mm[Hg] [facility] Diastolic blood pressure 2020-08-04 21:35:00 63 mm[Hg] [facility] Body temperature 2020-08-04 20:49:00 36.5 Zainab [facility] Body height 2020-08-04 18:08:00 154.9 cm [facility] Body weight 2020-08-04 18:08:00 124.739 kg [facility] BMI 2020-08-04 18:08:00 51.96 kg/m2 [facility] Heart rate 2020-08-04 21:50:00 74 /min [facility] Respiratory rate 2020-08-04 21:50:00 23 /min [facility] Oxygen saturation in Arterial blood by Pulse oximetry 2020-08-04 21:50:00 95 /min [facility] Systolic blood pressure 2020-08-04 21:35:00 106 mm[Hg] [facility] Diastolic blood pressure 2020-08-04 21:35:00 63 mm[Hg] [facility] Body temperature 2020-08-04 20:49:00 36.5 Zainab [facility] Body height 2020-08-04 18:08:00 154.9 cm [facility] Body weight 2020-08-04 18:08:00 124.739 kg [facility] BMI 2020-08-04 18:08:00 51.96 kg/m2 [facility] Systolic blood pressure 2020-06-05 18:07:00 123 mm[Hg] [facility] Diastolic blood pressure 2020-06-05 18:07:00 75 mm[Hg] [facility] Heart rate 2020-06-05 18:07:00 70 /min [facility] Body temperature 2020-06-05 18:07:00 36.72 Zainab [facility] Respiratory rate 2020-06-05 18:07:00 16 /min [facility] Body height 2020-06-05 18:07:00 156.2 cm [facility] Body weight 2020-06-05 18:07:00 129.91 kg [facility] BMI 2020-06-05 18:07:00 53.24 kg/m2 [facility] Body temperature 2020-05-31 20:10:00 36 Zainab [facility] Body weight 2020-05-31 20:10:00 128.822 kg [facility] BMI 2020-05-31 20:10:00 53.66 kg/m2 [facility] Systolic blood pressure 2020-04-06 18:35:00 138 mm[Hg] [facility] Diastolic blood pressure 2020-04-06 18:35:00 83 mm[Hg] [facility] Heart rate 2020-04-06 18:35:00 65 /min [facility] Respiratory rate 2020-04-06 18:35:00 18 /min [facility] Body height 2020-04-06 18:35:00 154.9 cm [facility] Body weight 2020-04-06 18:35:00 122.018 kg [facility] BMI 2020-04-06 18:35:00 50.83 kg/m2 [facility] Systolic blood pressure 2020-03-16 19:12:00 120 mm[Hg] [facility] Diastolic blood pressure 2020-03-16 19:12:00 80 mm[Hg] [facility] [facility] Body height 2020-03-16 19:12:00 154.9 cm [facility] Body weight 2020-03-16 19:12:00 122.018 kg [facility] BMI 2020-03-16 19:12:00 50.83 kg/m2 [facility] Body height 2019-12-23 16:00:00 154.9 cm [facility] Body weight 2019-12-23 16:00:00 122.018 kg [facility] BMI 2019-12-23 16:00:00 50.83 kg/m2 [facility] Procedures Procedure Date / Time Performed Performing Clinician Source TOTAL BETA HCG ASSAY 2024-07-27 17:13:00 Sylvia Darden [facility] HIV 1/2 AG-AB WITH REFLEX 2024-07-27 17:13:00 Nadege Nava [facility] POCT URINALYSIS W/O SPECIFIC GRAVITY 2024-07-27 16:35:00 Nadege Darden [facility] GARDASIL 9 (HPV 9V) VACCINE 2024-07-27 16:28:14 Mirta Correa [facility] POCT TEST 2024-07-27 16:19:00 Shahab Darden [facility] POCT MOLECULAR STREP 2024-07-13 23:28:00 Nannette Juan [facility] POCT SARS-COV-2 ANTIGEN (BINAX NOW) 2024-04-05 16:28:00 Theresa Trent [facility] POCT MOLECULAR FLU 2024-04-05 16:16:00 Unknown, Attend ing [facility] POCT MOLECULAR STREP 2024-04-05 16:13:00 Unknown, Atte nding [facility] POCT MOLECULAR STREP 2024-02-02 15:55:00 Unknown, Atte sacha [facility] POCT SARS-COV-2 ANTIGEN (BINAX NOW) 2023-06-28 23:38:00 Cj Tierney [facility] POCT MOLECULAR STREP 2023-03-07 16:19:00 Unknown, Attannie goncalves [facility] URINE CULTURE 2023-02-21 14:14:00 Mirta Correa [facility] GC & CHLAMYDIA AMPLIFIED ASSAY 2023-02-21 14:14:00 Mirta Correa [facility] HIV 1/2 AG-AB WITH REFLEX 2023-02-21 14:14:00 Mirta Corera [facility] HIGH RISK HPV-THIN PREP 2023-02-21 14:14:00 Mirta Correa [facility] TRICHOMONAS AMPLIFIED ASSAY 2023-02-21 14:14:00 Mirta Correa [facility] PAP SMEAR-LIQUID BASED-CP 2023-02-21 14:14:00 Mirta Correa [facility] SYPHILIS IGG/IGM 2023-02-21 14:14:00 Jose Correa [facility] GARDASIL 9 (HPV 9V) VACCINE 2023-02-21 13:56:00 Mirta Correa [facility] NO SHOW OR MISSED APPOINTMENT POLICY ACKNOWLEDGEMENT 2023-02-21 12:59:00 Doctor Unassigned, [place] [facility] ASSIGNMENT OF BENEFITS 2022-11-24 20:15:38 Docto r Unassigned, [place] [facility] POCT TEST 2022-07-17 16:33:00 Nannette [facility] POCT URINALYSIS 2022-07-17 16:15:00 Nannette Juan [facility] XR KNEE 3 VW LEFT 2022-03-19 14:44:16 Lottie Garvin [facility] POCT TEST 2022-03-19 14:34:00 Jennifer Garvin [facility] COMP. METABOLIC PANEL (67836) 2022-03-19 14:27:00 Lottie Garvin [facility] CBC WITH DIFF 2022-03-19 14:27:00 Lottie Garvin [facility] PROTHROMBIN TIME / INR 2022-03-19 14:27:00 Esdras Garvin [facility] ACTIVATED PARTIAL THRMPLAS REMEDIOS 2022-03-19 14:27:00 Lottie Garvin [facility] URINALYSIS 2022-03-19 14:27:00 Lottie Garvin [facility] CONSENT/REFUSAL FOR DIAGNOSIS AND TREATMENT 2022-03-19 13:50:09 Doctor Unassigned, [place] [facility] CONSENT/REFUSAL FOR DIAGNOSIS AND TREATMENT 2021-10-01 18:15:24 Doctor Unassigned, [place] [facility] INTUBATION 2020-08-04 19:57:02 Luzma Almanza [facility] ASSIGNMENT OF BENEFITS 2020-08-04 16:10:14 Docnando r Unassigned, [place] [facility] DISCLOSURE AND CONSENT, MEDICAL AND SURGICAL PROCEDURES 2020-07-05 05:01:00 Doctor Unassigned, [place] [facility] HIV 1/2 AG-AB WITH REFLEX 2020-06-05 19:04:00 Casie Ortega [facility] GALV ONLY - SYPHILIS IGG/IGM 2020-06-05 19:04:00 Casie Ortega [facility] XR WRIST 3+ VW LEFT 2020-05-31 19:46:46 Torey Whyte [facility] MR WRIST LEFT WO CONTRAST 2020-03-31 20:18:12 Kami Bernard [facility] REFERRAL- REQUEST/RESPONSE 2020-03-23 05:01:00 D octor Unassigned, [place] [facility] SEDIMENTATION RATE 2019-12-23 17:06:00 Kami Bernard [facility] CBC WITH DIFFERENTIAL 2019-12-23 17:06:00 Jose R Bernard [facility] ASSIGNMENT OF BENEFITS 2019-12-23 15:57:07 Docto r Unassigned, [place] [facility] DME/SUPPLY JUSTIFICATION 2019-05-27 05:01:00 Doc tor Unassigned, [place] [facility] Encounters Start Date/Time End Date/Time Encounter Type Admission Type Attending Clinicians Care Facility Care Department Encounter ID Source 2021-08-24 19:16:32 Outpatient TOREY WHYTE [facility] [id number] [facility] 2024-12-02 10:00:00 2024-12-02 10:00:00 Outpatient Oli [facility] [id number] [facility] 2024-09-03 00:00:00 2024-09-03 00:00:00 Outpatient R NADEGE DARDEN [facility] [id number] [facility] 2024-08-05 00:00:00 2024-08-05 13:24:53 Telephone Nadege Darden [facility] 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 [facility] MATERNAL & CHILD [facility] 1.2.840.114 350.1.13.10 4.2.7.2.686 [id number] 107 [id number] [facility] 2024-07-29 00:00:00 2024-07-29 09:54:49 Telephone Nadege Darden [facility] 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 [facility] & CHILD [facility] 1.2.840.114 350.1.13.10 4.2.7.2.686 [id number] [facility] 2024-07-27 09:45:00 2024-07-27 12:13:16 Outpatient R NADEGE DARDEN [facility] [id number] [facility] 2024-07-27 09:45:00 2024-07-27 12:13:16 Office Visit Nadege Darden [facility] 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 [facility] & CHILD [facility] 1.2.840.114 350.1.13.10 4.2.7.2.686 [id number] [facility] 2024-07-13 18:20:00 2024-07-13 18:47:15 Outpatient NANNETTE MAGALLON [facility] [id number] [facility] 2024-07-13 18:20:00 2024-07-13 18:47:15 Urgent Care Nannette Juan Unknown, Attending [facility] 1.2.840.114 350.1.13.10 4.2.7.2.686 [id number] 370 [id number] [facility] 2024-07-13 17:40:00 2024-07-13 17:40:00 Outpatient R UNKNOWN, ATTENDING [facility] [id number] [facility] 2024-04-05 00:00:00 2024-04-05 16:08:11 Telephone [facility] 1.2.840.114 350.1.13.10 4.2.7.2.686 [id number] 370 [id number] [facility] 2024-04-05 00:00:00 2024-04-05 15:08:08 Telephone Trent, [facility]enohemi [facility] 1..840.114 350.1.13.10 4.2.7.2.686 [id number] 370 [id number] [facility] 2024-04-05 00:00:00 2024-04-05 12:41:55 Telephone Theresa [facility] 1..840.114 350.1.13.10 4.2.7.2.686 [id number] 370 [id number] [facility] 2024-04-05 10:40:00 2024-04-05 11:47:55 Outpatient R THERESA TRENT [facility] [id number] [facility] 2024-04-05 10:40:00 2024-04-05 11:47:55 Urgent Care Trent, Reenohemi Rashid, Attending [facility] 1.2.840.114 350.1.13.10 4.2.7.2.686 [id number] 370 [id number] [facility] 2024-02-23 10:30:00 2024-02-23 10:30:00 Outpatient R MIRTA CORREA [facility] [id number] [facility] 2024-02-03 00:00:00 2024-02-03 00:00:00 Telephone [facility] 1..840.114 350.1.13.10 4.2.7.2.686 [id number] [facility] 2024-02-02 10:40:00 2024-02-02 11:19:57 Outpatient R AMELIA KAT [facility] [id number] [facility] 2024-02-02 10:40:00 2024-02-02 11:19:57 Urgent Care Amelia Kat, Attending [facility] 1..840.114 350.1.13.10 4.2.7.2.686 [id number] 370 [id number] [facility] 2024-02-02 00:00:00 2024-02-02 00:00:00 Telephone Amelia Kat [facility] 1..840.114 350.1.13.10 4.2.7.2.686 [id number] 370 [id number] [facility] 2023-06-28 19:00:00 2023-06-28 19:00:00 Urgent Care Cj Tierney Unknown, Attending [facility] 1..840.114 350.1.13.10 4.2.7.2.686 [id number] 370 [id number] [facility] 2023-06-28 19:00:00 2023-06-28 18:52:42 Outpatient R CJ TIERNEY [facility] [id number] [facility] 2023-03-07 11:40:00 2023-03-07 12:00:00 Urgent Care Regla Wilson Gay, Attending [facility] 1.2840.114 350.1.13.10 4.2.7.2.686 [id number] 370 [id number] [facility] 2023-03-07 11:40:00 2023-03-07 11:40:00 Outpatient R REGLA WILSON [facility] [id number] [facility] 2023-02-25 00:00:00 2023-02-25 00:00:00 Telephone Mirta Correa [facility] 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 [facility] & CHILD [facility] 1.840.114 350.1.13.10 4.2.7.2.686 [id number] 107 [id number] [facility] 2023-02-25 00:00:00 2023-02-25 00:00:00 Telephone Mirta Correa [facility] 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 [facility] CHILD [facility] 1.20.114 350.1.13.10 4.2.7.2.686 [id number] 107 [id number] [facility] 2023-02-24 00:00:00 2023-02-24 00:00:00 Telephone Mirta Correa [facility] 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 [facility] & CHILD [facility] 1.2840.114 350.1.13.10 4.2.7.2.686 [id number] 107 [id number] [facility] 2023-02-24 00:00:00 2023-02-24 00:00:00 Patient Secure Msg Mirta Correa [facility] 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 [facility] & CHILD [facility] 1.2.840.114 350.1.13.10 4.2.7.2.686 [id number] 107 [id number] [facility] 2023-02-21 08:15:00 2023-02-21 09:14:08 Outpatient R MIRTA CORREA [facility] [id number] [facility] 2023-02-21 08:15:00 2023-02-21 09:14:08 Office Visit Mirta Correa [facility] 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 [facility] & [facility] 1.0.114 350.1.13.10 4.2.7.2.686 [id number] 107 [id number] [facility] 2023-02-21 00:00:00 2023-02-21 00:00:00 Orders Only Doctor Unassigned, [place] [facility] 1..114 350.1.13.10 4.2.7.2.686 [id number] [facility] 2023-02-19 00:00:00 2023-02-19 00:00:00 Case Management Jenniffer Hernandez 1.840.114 350.1.13.10 4.2.7.2.686 [id number] [facility] 2023-02-19 00:00:00 2023-02-19 00:00:00 Telephone Jenniffer Hernandez 1.840.114 350.1.13.10 4.2.7.2.686 [id number] [facility] 2022-12-04 00:00:00 2022-12-04 00:00:00 Telephone Latonia Curtis [facility] 1..114 350.1.13.10 4.2.7.2.686 [id number] 370 [id number] [facility] 2022-11-24 14:20:00 2022-11-24 14:40:00 Urgent Care Latonia Curtis Unknown, Attending [facility] 1..114 350.1.13.10 4.2.7.2.686 [id number] 370 [id number] [facility] 2022-11-24 14:20:00 2022-11-24 14:20:00 Outpatient R LATONIA CURTIS [facility] [id number] [facility] 2022-11-24 00:00:00 2022-11-24 00:00:00 Orders Only Doctor Unassigned, [place] [facility] 1.84114 350.1.13.10 4.2.7.2.686 [id number] [facility] 2022-07-20 00:00:00 2022-07-20 00:00:00 Telephone [facility] 1.840.114 350.1.13.10 4.2.7.2.686 [id number] 370 [id number] [facility] 2022-07-17 11:15:00 2022-07-17 11:29:07 Out[facility] [id number] [facility] 2022-07-17 11:15:00 2022-07-17 11:29:07 Urgent Care [facility] 1.840.114 350.1.13.10 4.2.7.2.686 [id number] 370 [id number] [facility] 2022-06-12 19:20:00 2022-06-12 19:47:11 Outpatient R TOREY CESAR [facility] [id number] [facility] 2022-06-12 19:20:00 2022-06-12 19:47:11 Urgent Care [facility] 1.840.114 350.1.13.10 4.2.7.2.686 [id number] 370 [id number] [facility] 2022-04-14 12:40:00 2022-04-14 13:52:43 Outpatient R REGLA WILSON [facility] [id number] [facility] 2022-04-14 12:40:00 2022-04-14 13:52:43 Urgent Care Regla Wilson [facility] 1..840.114 350.1.13.10 4.2.7.2.686 [id number] 370 [id number] [facility] 2022-04-03 14:20:00 2022-04-03 14:20:00 Urgent Care [facility] 1..840.114 350.1.13.10 4.2.7.2.686 [id number] 370 [id number] [facility] 2022-04-03 14:20:00 2022-04-03 14:03:55 Outpatient R [facility] [id number] [facility] 2022-03-19 09:01:00 2022-03-19 11:10:00 Emergency X LOTTIE GARVIN [facility] ERT [id number] [facility] 2022-03-19 09:01:00 2022-03-19 11:10:00 Emergency Lottie Garvin [facility] 1.840.114 350.1.13.10 4.2.7.2.686 [id number] [facility] 2022-03-19 00:00:00 2022-03-19 00:00:00 Patient Secure Msg Doctor Unassigned, [place] [facility] 1.840.114 350.1.13.10 4.2.7.2.686 [id number] [facility] 2022-03-19 00:00:00 2022-03-19 00:00:00 Orders Only Doctor Unassigned, [place] [facility] 1.0.114 350.1.13.10 4.2.7.2.686 [id number] [facility] 2021-10-01 15:00:00 2021-10-01 13:13:59 Outpatient R DRAKE [facility] [id number] [facility] 2021-10-01 12:15:40 2021-10-01 13:13:59 Urgent Care [facility] 1.2840.114 350.1.13.10 4.2.7.2.686 [id number] 370 [id number] [facility] 2021-10-01 00:00:00 2021-10-01 00:00:00 Orders Only Doctor Unassigned, [place] [facility] 1.840.114 350.1.13.10 4.2.7.2.686 [id number] [facility] 2021-06-04 00:00:00 2021-06-04 00:00:00 Patient Secure Msg Casie Ortega [facility] 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 [facility] 1.840.114 350.1.13.10 4.2.7.2.686 [id number] 107 [id number] [facility] 2021-01-15 00:00:00 2021-01-15 00:00:00 Patient Outreach Harjit Sneed [facility] 1.840.114 350.1.13.10 4.2.7.2.686 [id number] 2021-01-15 00:00:00 2021-01-15 00:00:00 Patient Outreach Harjit Sneed [facility] 1.840.114 350.1.13.10 4.2.7.2.686 [id number] [facility] 2020-10-16 00:00:00 2020-10-16 00:00:00 Patient Secure Msg Doctor Unassigned, Cr[place] [facility] 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 [facility] 1.2.840.114 350.1.13.10 4.2.7.2.686 [id number] [facility] 2020-08-23 14:00:00 2020-08-23 14:00:00 Outpatient R TOREY WHYTE [facility] [id number] [facility] 2020-08-22 00:00:00 2020-08-22 00:00:00 Patient Secure Msg Isabell [facility] 1.2.840.114 350.1.13.10 4.2.7.2.686 [id number] [facility] 2020-08-09 00:00:00 2020-08-09 00:00:00 Telephone Isabell [facility] 1.2.840.114 350.1.13.10 4.2.7.2.686 [id number] [facility] 2020-08-09 00:00:00 2020-08-09 00:00:00 Telephone Isabell [facility] 1.2.840.114 350.1.13.10 4.2.7.2.686 [id number] 2020-08-04 11:12:00 2020-08-04 17:25:00 [facility] 1.2.840.114 350.1.13.10 4.2.7.2.686 [id number] [facility] 2020-08-04 11:12:00 2020-08-04 17:25:00 [facility] 1.2.840.114 350.1.13.10 4.2.7.2.686 [id number] [id number] 2020-08-04 14:32:00 2020-08-04 15:44:00 Anesthesia Ashley Alas David K [facility] 1.2.840.114 350.1.13.10 4.2.7.2.686 [id number] [facility] 2020-08-04 14:32:00 2020-08-04 15:44:00 Anesthesia Ashley Alas David K [facility] 1.2.840.114 350.1.13.10 4.2.7.2.686 [id number] 2020-08-04 00:00:00 2020-08-04 00:00:00 Orders Only Doctor Unassigned, Crittenden [facility] 1.2.840.114 350.1.13.10 4.2.7.2.686 [id number] [facility] 2020-08-04 00:00:00 2020-08-04 00:00:00 Orders Only Doctor Unassigned, Cr[place] [facility] 1.2.840.114 350.1.13.10 4.2.7.2.686 [id number] 2020-08-03 15:30:00 2020-08-03 15:30:00 Outpatient R [facility] [id number] [facility] 2020-08-03 14:49:11 2020-08-03 15:04:01 Laboratory Only Only, Adc Test Isabell [facility] 1.2.840.114 350.1.13.10 4.2.7.2.686 [id number] [facility] 2020-08-03 14:49:11 2020-08-03 15:04:01 Laboratory Only Only, Adc Test [facility] 1.2.840.114 350.1.13.10 4.2.7.2.686 [id number] 2020-08-02 00:00:00 2020-08-02 00:00:00 [facility] .0.114 350.1.13.10 4.2.7.2.686 [id number] 198 [id number] [facility] 2020-08-02 00:00:00 2020-08-02 00:00:00 Telephone [facility] [place] [facility] .0.114 350.1.13.10 4.2.7.2.686 [id number] 198 [id number] [facility] 2020-07-21 00:00:00 2020-07-21 00:00:00 Patient Secure Msg Doctor Unassigned, Crittenden [facility] 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 [facility] ..114 350.1.13.10 4.2.7.2.686 [id number] 107 [id number] [facility] 2020-07-20 00:00:00 2020-07-20 00:00:00 Patient Secure Msg [facility] [place] .0.114 350.1.13.10 4.2.7.2.686 [id number] 198 [id number] [facility] 2020-07-19 00:00:00 2020-07-19 00:00:00 Telephone [facility] ..114 350.1.13.10 4.2.7.2.686 [id number] 198 [id number] [facility] 2020-07-07 00:00:00 2020-07-07 00:00:00 Patient Secure Msg [facility] ..114 350.1.13.10 4.2.7.2.686 [id number] 198 [id number] [facility] 2020-07-05 11:28:58 2020-07-05 11:38:58 Telemedici ne Visit Elhamilvee [facility] 1.114 350.1.13.10 4.2.7.2.686 [id number] [facility] 2020-07-05 11:10:00 2020-07-05 11:10:00 Outpatient R TOREY WHYTE [facility] [id number] [facility] 2020-07-05 00:00:00 2020-07-05 00:00:00 Patient Secure Msg Doctor Unassigned, Crittenden [facility] 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 [facility] & CHILD [facility] 1.114 350.1.13.10 4.2.7.2.686 [id number] 107 [id number] [facility] 2020-07-05 00:00:00 2020-07-05 00:00:00 Orders Only Doctor Unassigned, Crittenden [facility] 1.114 350.1.13.10 4.2.7.2.686 [id number] [facility] 2020-06-21 13:30:00 2020-06-21 13:30:00 Outpatient R RUEL IQBAL [facility] [id number] [facility] 2020-06-20 00:00:00 2020-06-20 00:00:00 Patient Secure Msg Torey Whyte [facility] 1.114 350.1.13.10 4.2.7.2.686 [id number] [facility] 2020-06-19 16:19:58 2020-06-19 16:20:05 Retail Grocer Visit Lab, Ang-Rmchp Casie Ortega [facility] 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 [facility] CHILD [facility] 1.114 350.1.13.10 4.2.7.2.686 [id number] 107 [id number] [facility] 2020-06-19 15:40:00 2020-06-19 15:40:00 Outpatient R TOREY WHYTE [facility] [id number] [facility] 2020-06-19 15:15:00 2020-06-19 15:15:00 Outpatient R CASIE ORTEGA [facility] [id number] [facility] 2020-06-19 00:00:00 2020-06-19 00:00:00 Telephone IsabellTorey [facility] 1.2.840.114 350.1.13.10 4.2.7.2.686 [id number] 198 [id number] [facility] 2020-06-16 00:00:00 2020-06-16 00:00:00 Patient Secure Msg Doctor Unassigned, Crittenden [facility] 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 [facility] & CHILD [facility] 1.2.840.114 350.1.13.10 4.2.7.2.686 [id number] 107 [id number] [facility] 2020-06-13 00:00:00 2020-06-13 00:00:00 Patient Secure Msg Doctor Unassigned, Crittenden [facility] 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 [facility] & CHILD [facility] 1.2.840.114 350.1.13.10 4.2.7.2.686 [id number] 107 [id number] [facility] 2020-06-12 00:00:00 2020-06-12 00:00:00 Telephone Casie Ortega [facility] 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 [facility]ILD [facility] 1.2.840.114 350.1.13.10 4.2.7.2.686 [id number] 107 [id number] [facility] 2020-06-06 00:00:00 2020-06-06 00:00:00 Telephone Casie Ortega [facility] 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 [facility] 1.2.840.114 350.1.13.10 4.2.7.2.686 [id number] [facility] 2020-06-05 12:48:43 2020-06-05 14:03:05 Office Visit Casie Ortega [facility] 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 [facility] 1.0.114 350.1.13.10 4.2.7.2.686 [id number] [facility] 2020-06-05 12:45:00 2020-06-05 12:45:00 Outpatient R CASIE ORTEGA [facility] [id number] [facility] 2020-05-31 14:36:23 2020-05-31 23:59:00 Hospital Encounter ElhamTorey silva [facility] 1..114 350.1.13.10 4.2.7.2.686 [id number] [facility] 2020-05-31 14:17:05 2020-05-31 15:56:27 Office Visit Torey Whyte [facility] 1.114 350.1.13.10 4.2.7.2.686 [id number] [facility] 2020-05-31 14:30:00 2020-05-31 14:30:00 Outpatient R ELHAMTOREY SILVA [facility] [id number] [facility] 2020-04-24 00:00:00 2020-04-24 00:00:00 Patient Secure Msg Doctor Unassigned, [place] [facility] 1.114 350.1.13.10 4.2.7.2.686 [id number] [facility] 2020-04-12 13:00:00 2020-04-12 13:00:00 Outpatient R ISABELLTOREY [facility] [id number] [facility] 2020-04-12 00:00:00 2020-04-12 00:00:00 Patient Secure Msg Doctor Unassigned, [place] [facility] 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 [facility] 1..114 350.1.13.10 4.2.7.2.686 [id number] [facility] 2020-04-06 15:30:00 2020-04-06 15:30:00 Outpatient R MARCO ANTONIO KAMI [facility] [id number] [facility] 2020-04-06 13:33:51 2020-04-06 14:02:35 Office Visit Kami Bernard [facility] 1.2.840.114 350.1.13.10 4.2.7.2.686 [id number] [facility] 2020-03-31 14:26:45 2020-03-31 23:59:00 Outpatient R MARCO ANTONIO KAMI [facility] [id number] [facility] 2020-03-31 14:00:00 2020-03-31 23:59:00 Hospital Encounter Marco Antonio Kami Ramos [facility] 1.2.840.114 350.1.13.10 4.2.7.2.686 [id number] [facility] 2020-03-23 00:00:00 2020-03-23 00:00:00 Orders Only Doctor Unassigned, [place] [facility] 1.2.840.114 350.1.13.10 4.2.7.2.686 [id number] [facility] 2020-03-22 00:00:00 2020-03-22 00:00:00 Telephone Kami Bernard Rachel [facility] Surgical Special amara Cosby 1.2.840.114 350.1.13.10 4.2.7.2.686 [id number] [facility] 2020-03-16 14:10:26 2020-03-16 14:24:02 Office Visit BernardKami Rachel [facility] Health Surgical Specialti amara Cosby 1.2.840.114 350.1.13.10 4.2.7.2.686 [id number] [facility] 2020-03-16 14:15:00 2020-03-16 14:15:00 Outpatient R KAMI [facility] [id number] [facility] 2020-03-16 13:15:00 2020-03-16 13:15:00 Outpatient R KAMI [facility] [id number] [facility] 2020-01-11 13:45:00 2020-01-11 13:45:00 [facility] [id number] 2020-01-06 14:45:00 2020-01-06 14:45:00 Outpatient Oli [facility] [id number] [facility] 2019-12-30 10:15:00 2019-12-30 10:15:00 Outpatient Oli KAMI [facility] [id number] [facility] 2019-12-30 00:00:00 2019-12-30 00:00:00 Patient Secure Msramos John Rivera [facility] Health Surgical Specialti [facility] 1..840.114 350.1.13.10 4.2.7.2.686 [id number] [facility] 2019-12-23 10:51:53 2019-12-23 11:06:53 Retail Grocer Visit Pob, Adc Lab Main BernardKami [facility] 1..840.114 350.1.13.10 4.2.7.2.686 [id number] [facility] 2019-12-23 09:56:57 2019-12-23 10:15:25 Office Visit Kami Bernard [facility] 1..840.114 350.1.13.10 4.2.7.2.686 [id number] [facility] 2019-12-23 10:15:00 2019-12-23 10:15:00 Outpatient Oli KAMI [facility] [id number] [facility] 2019-12-23 00:00:00 2019-12-23 00:00:00 Orders Only Doctor Unassigned, [place] [facility] 1.2840.114 350.1.13.10 4.2.7.2.686 [id number] [facility] 2019-05-27 00:00:00 2019-05-27 00:00:00 Orders Only Doctor Unassigned, [place] [facility] 1.2840.114 350.1.13.10 4.2.7.2.686 [id number] [facility] 2019-05-27 00:00:00 2019-05-27 00:00:00 Telephone [facility] 1.2840.114 350.1.13.10 4.2.7.2.686 [id number] [facility] 2014-05-30 00:00:00 2014-05-30 00:00:00 Patient Secure Msg Doctor Unassigned, [place] [facility] 1.2840.114 350.1.13.10 4.2.7.2.686 [id number] [facility] Results Test Description Test Time Test Comments Results Result Co mments Source [facility] [id number] 16:19:00* Test Item Value Reference Range Interpretation Comme nts POCT PREG (test code = 1605) Negative On board controls acceptable with C Line (test code = 3574) Yes POCT PREG LOT # (test code = 3575) POCT PREG TEST DATE ( test code = 3576) [facility] MOLECULAR [id number] 23:35:37* Test Item Value Reference Range Interpretation Comme nts POCT Molecular Strep (test c ode = 14657-4) Negative Negative Lab Interpretation (test cod e = 57085-3) Normal [facility] Molecular [id number] 16:28:01* Test Item Value Reference Range Interpretation Comme nts POCT Molecular FluA (test co de = 05817-4) Negative Negative POCT Molecular FluB (test co de = 08784-8) Negative Negative Lab Interpretation (test cod e = 21581-7) Normal [facility] SARS-COV-2 ANTIGEN (BINAX NOW)2024-04-05 16:28:00* Test Item Value Reference Range Interpretation Comme nts POCT SARS-COV-2 ANTIGEN (test code = 16998-0) Not Detected Not Detected On board controls acceptable with C Line (test code = 3574) Yes FIONA (test code = FIONA) accurate developme nt and interpretation of all internal controls [facility] MOLECULAR [id number] 16:20:56* Test Item Value Reference Range Interpretation Comme nts POCT Molecular Strep (test c ode = 75905-0) Negative Negative Lab Interpretation (test cod e = 19457-3) [facility] MOLECULAR [id number] 16:03:23* Test Item Value Reference Range Interpretation Comme nts POCT Molecular Strep (test c ode = 55489-5) Negative Negative Lab Interpretation (test cod e = 20590-2) [facility] SARS-COV-2 ANTIGEN (BINAX NOW)2023-06-28 23:40:00* Test Item Value Reference Range Interpretation Comme nts POCT SARS-COV-2 ANTIGEN (test code = 92726-3) Not Detected Not Detected On board controls acceptable with C Line (test code = 3574) Yes FIONA (test code = FIONA) accurate developme nt and interpretation of all internal controls Lab Interpretation (test code = 81030-7) [facility] SARS-COV-2 ANTIGEN (BINAX NOW)2023-06-28 23:40:00* Test Item Value Reference Range Interpretation Comme nts POCT SARS-COV-2 ANTIGEN (test code = 24282-6) Not Detected Not Detected On board controls acceptable with C Line (test code = 3574) Yes FIONA (test code = FIONA) accurate developme nt and interpretation of all internal controls Lab Interpretation (test code = 13178-0) [facility] MOLECULAR [id number] 16:26:28* Test Item Value Reference Range Interpretation Comme nts POCT Molecular Strep (test c ode = 02828-6) Negative Negative Lab Interpretation (test cod e = 53974-8) [id number] 16:53:38* Test Item Value Reference Range Interpretation Comme nts Syphilis IgG/IgM (test code = 80581-2) Non-reactive Non-reactive FIOAN (test code = FIONA) Non-reactive - No serologic evidence of T. pallidum infection. Cannot exclude incubating or early syphilis. Submit a second specimen in 2-4 weeks if syphilis is clinically suspected. Equivocal - Further testing to follow. Reactive - Further testing to follow. Lab Interpretation (test code = 64268-5) [facility] WITH [id number] 05:24:24* Test Item Value Reference Range Interpretation Comme nts HIV Semi-quantitative (test code = 92095-0) 0.07 Negative FIONA (test code = FIONA) Non-reactive for HIV-1 antigen and HIV-1/HIV-2 antibodies. ?No laboratory evidence of HIV infection. ?Repeat in 2-4 weeks if acute HIV infection is suspected. [facility] [id number] 16:44:00* Test Item Value Reference Range Interpretation Comme nts POCT PREG (test code = 1605) Negative On board controls acceptable with C Line (test code = 3574) Yes POCT PREG LOT # (test code = 3575) [id number] POCT PREG TEST DATE (test code = 3576) FIONA (test code = FIONA) accurate developme nt and interpretation of all internal controls Lab Interpretation (test code = 39881-0) Normal [facility] URINALYSIS W SPECIFIC [id number] 16:16:00* Test Item Value Reference Range Interpretation [...] clear Lab Interpretation (test cod e = 09278-5) Normal [facility] WITH [id number] 15:36:23* Test Item Value Reference Range Interpretation [...] 33.6 g/dL 31.6-35.1 RDW-SD (test code = 44718-9) 43.0 fL 39.0-49.9 RDW-CV (test code = 788-0) 13.8 % 12.0-15.5 PLT (test code = 777-3) See_Comment [Automated messa ge] The system which generated this result transmitted reference range: 166 - 358 10*3/?L. The reference range was not used to interpret this result as normal/abnormal. MPV (test code = 32334-0) 10.8 fL 9.5-12.9 NRBC/100 WBC (test code = 5583276536) See_Comment [Automated [employer] ssage] The system which generated this result transmitted reference range: 0.0 - 10.0 /100 WBCs. The reference range was not used to interpret this result as normal/abnormal. NRBC x10^3 (test code = 1983616642) <0.01 See_Comment [Automated messa ge] The system which generated this result transmitted reference range: 10*3/?L. The reference range was not used to interpret this result as normal/abnormal. GRAN MAT (NEUT) % (test code = 770-8) 59.6 % IMM GRAN % (test code = 4198628866) 0.40 % LYMPH % (test code = 736-9) 29.0 % MONO % (test code = 5905-5) 7.7 % EOS % (test code = 713-8) 2.9 % BASO % (test code = 706-2) 0.4 % GRAN MAT x10^3(ANC) (test code = 9777271439) 8.31 10*3/uL 1.88-7.09 H IMM GRAN x10^3 (test code = 8970951946) 0.06 10*3/uL 0.00-0.06 LYMPH x10^3 (test code = 731-0) 4.05 10*3/uL 1.32-3.29 H MONO x10^3 (test code = 742-7) 1.07 10*3/uL 0.33-0.92 H EOS x10^3 (test code = 711-2) 0.41 10*3/uL 0.03-0.39 H BASO x10^3 (test code = 704-7) 0.05 10*3/uL 0.01-0.07 REACT LYMPHS (test code = 7454710539) Rare Lab Interpretation (test code = 80703-0) Abnormal [facility] CenterACTIV[facility] PARTIAL THRMPLAS [id number] 15:06:58* Test Item Value Reference Range Interpretation Comme nts APTT Patient (test code = 3173-2) See_Comment [Automated message] The system which generated this result transmitted reference range: 23 - 38 Seconds. The reference range was not used to interpret this result as normal/abnormal. FIONA (test code = FIONA) The [facility] patient population mean normal value for aPTT is 30 seconds. Lab Interpretation (test code = 63175-2) Normal [facility] CenterPROTHROMBIN TIME / [id number] 15:04:57* Test Item Value Reference Range Interpretation Comme [facility] PROTIME PATIENT (test code = 5964-2) See_Comment [Automated [employer]] The system which generated this result transmitted reference range: 12.0 - 14.7 Seconds. The reference range was not used to interpret this result as normal/abnormal. INR (test code = 6301-6) Normal INR <1.1; Warfarin Therapeutic range 2.0 to 3.0 or 2.5 to 3.5, depending upon the indications. Lab Interpretation (test code = 02692-9) Normal [facility] CenterCOMP. METABOLIC PANEL (00029)2022-03-19 14:58:33* Test Item Value Reference Range Interpretation Comme [facility] NA (test code = 1664092353) 141 mmol/L 135-145 K (test code = 5219804553) 4.3 mmol/L 3.5-5.0 CL (test code = 5601694023) 107 mmol/L 98-108 CO2 TOTAL (test code = 2904506963) 24 mmol/L 23-31 AGAP (test code = 6905425583) 2-16 BUN (test code = 0293568587) 11 mg/dL 7-23 GLUCOSE (test code = 6461402101) 116 mg/dL 70-110 H CREATININE (test code = 2087510363) 0.71 mg/dL 0.50-1.04 TOTAL BILI (test code = 6167671428) 0.5 mg/dL 0.1-1.1 CALCIUM (test code = 5597198472) 9.3 mg/dL 8.6-10.6 T PROTEIN (test code = 2628892495) 7.0 g/dL 6.3-8.2 ALBUMIN (test code = 1990252887) 4.3 g/dL 3.5-5.0 ALK PHOS (test code = 7638856208) 63 U/L 34-122 ALTv (test code = 1742-6) 48 U/L 5-35 H AST(SGOT) (test code = 4872963359) 33 U/L 13-40 eGFR (test code = 8577889224) mL/min/1.73m2 FIONA (test code = FIONA) Association [...] imaging tests). Lab Interpretation (test code = 55400-0) Abnormal [facility] CenterPONH [id number] 14:34:00* Test Item Value Reference Range Interpretation Comme nts POCT PREG (test code = 1605) negative On board controls acceptable with C Line (test code = 3574) present POCT PREG LOT # (test code = 3575) [id number] POCT PREG TEST DATE ( test code = 3576) 07-26-2023 Lab Interpretation (test cod e = 36080-9) Normal [facility] CenterIntubation2020-10-09 19:57:02Luzma Almanza CRNA ? ? 08/04/2020 ?2:57 PMIntubationDate/Time: 08/04/2020 2:39 PMUrgency: elective Airway not difficult General Information and Staff Patient location during procedure: ORResident/YARD ASSOCIATE: Luzma Almanza CRNAPerformed: resident/YARD ASSOCIATE Indications and Patient ConditionIndications for airway management: [...] and BBS, teeth and lips per preop assessmentUnBrooke Army Medical CenterGALV ONLY - SYPHILIS IGG/IGM 2020-06-06 13:57:00* Test Item Value Reference Range Interpretation Comme nts Syphilis IgG/IgM (test code = 22777-8) Non-reactive Non-reactive FIONA (test code = FIONA) Non-reactive - No serologic evidence of T. pallidum infection. Cannot exclude incubating or early syphilis. Submit a second specimen in 2-4 weeks if syphilis is clinically suspected. Equivocal - Further testing to follow. Reactive - Further testing to follow. Lab Interpretation (test code = 51526-4) Normal [facility]HIV [facility]2 AG-AB WITH [id number] 05:48:00* Test Item Value Reference Range Interpretation Comme [facility] HIV Semi-quantitative (test code = 46602-2) Negative Negative FIONA (test code = FIONA) Non-reactive for HIV-1 antigen and HIV-1/HIV-2 antibodies. ?No laboratory evidence of HIV infection. ?Repeat in 2-4 weeks if acute HIV infection is suspected. [facility] CenterXR WRIST 3+ VW [id number] 20:09:52 Osteonecrosis of the lunate. Nonspecific swelling [...] of the lunate.Nonspecific swelling over the medial forearm.[facility] [id number] 17:35:00* Test Item Value Reference Range Interpretation Comme nts ESR (test code = 5287767978) See_Comment [Automated messa ge] The system which generated this result transmitted reference range: 0 - 20 mm/HR. The reference range was not used to interpret this result as normal/abnormal. Lab Interpretation (test code = 95453-4) Normal [facility] [id number] 17:35:00* Test Item Value Reference Range Interpretation Comme nts ESR (test code = 3813531396) See_Comment [Automated messa ge] The system which generated this result transmitted reference range: 0 - 20 mm/HR. The reference range was not used to interpret this result as normal/abnormal. Lab Interpretation (test code = 93454-8) Normal [facility] WITH [id number] 17:10:00* Test Item Value Reference Range Interpretation [...] g/dL 31.6-35.1 L RDW-SD (test code = 06948-0) 45.0 fL 39-49.9 RDW-CV (test code = 788-0) 14.9 % 12-15.5 PLT (test code = 777-3) See_Comment [Automated messa ge] The system which generated this result transmitted reference range: 166 - 358 10*3/?L. The reference range was not used to interpret this result as normal/abnormal. MPV (test code = 80091-6) 10.0 fL 9.5-12.9 NRBC/100 WBC (test code = 1567207832) See_Comment [Automated [employer] ssage] The system which generated this result transmitted reference range: 0.0 - 10.0 /100 WBCs. The reference range was not used to interpret this result as normal/abnormal. NRBC x10^3 (test code = 3133901475) <0.01 See_Comment [Automated messa ge] The system which generated this result transmitted reference range: 10*3/?L. The reference range was not used to interpret this result as normal/abnormal. GRAN MAT (NEUT) % (test code = 770-8) 60.7 % IMM GRAN % (test code = 6762839407) 0.50 % LYMPH % (test code = 736-9) 28.4 % MONO % (test code = 5905-5) 7.5 % EOS % (test code = 713-8) 2.5 % BASO % (test code = 706-2) 0.4 % GRAN MAT x10^3(ANC) (test code = 5662475601) 5.91 10*3/uL 1.88-7.09 IMM GRAN x10^3 (test code = 8202889278) 0.05 10*3/uL 0-0.06 LYMPH x10^3 (test code = 731-0) 2.76 10*3/uL 1.32-3.29 MONO x10^3 (test code = 742-7) 0.73 10*3/uL 0.33-0.92 EOS x10^3 (test code = 711-2) 0.24 10*3/uL 0.03-0.39 BASO x10^3 (test code = 704-7) 0.04 10*3/uL 0.01-0.07 Lab Interpretation (test code = 32995-9) Abnormal [facility] WITH [id number] 17:10:00* Test Item Value Reference Range Interpretation [...] g/dL 31.6-35.1 L RDW-SD (test code = 24962-5) 45.0 fL 39-49.9 RDW-CV (test code = 788-0) 14.9 % 12-15.5 PLT (test code = 777-3) See_Comment [Automated messa ge] The system which generated this result transmitted reference range: 166 - 358 10*3/?L. The reference range was not used to interpret this result as normal/abnormal. MPV (test code = 96259-1) 10.0 fL 9.5-12.9 NRBC/100 WBC (test code = 6090603248) See_Comment [[employer]ated [employer] ssage] The system which generated this result transmitted reference range: 0.0 - 10.0 /100 WBCs. The reference range was not used to interpret this result as normal/abnormal. NRBC x10^3 (test code = 2697320604) <0.01 See_Comment [Automated messa ge] The system which generated this result transmitted reference range: 10*3/?L. The reference range was not used to interpret this result as normal/abnormal. GRAN MAT (NEUT) % (test code = 770-8) 60.7 % IMM GRAN % (test code = 9552500012) 0.50 % LYMPH % (test code = 736-9) 28.4 % MONO % (test code = 5905-5) 7.5 % EOS % (test code = 713-8) 2.5 % BASO % (test code = 706-2) 0.4 % GRAN MAT x10^3(ANC) (test code = 1525795928) 5.91 10*3/uL 1.88-7.09 IMM GRAN x10^3 (test code = 0615194840) 0.05 10*3/uL 0-0.06 LYMPH x10^3 (test code = 731-0) 2.76 10*3/uL 1.32-3.29 MONO x10^3 (test code = 742-7) 0.73 10*3/uL 0.33-0.92 EOS x10^3 (test code = 711-2) 0.24 10*3/uL 0.03-0.39 BASO x10^3 (test code = 704-7) 0.04 10*3/uL 0.01-0.07 Lab Interpretation (test code = 78085-9) Abnormal [facility] Notes Date/Time Note Provider Source 2024-08-05 13:23:54 Informed patient there was no alternate treatment for her yeast infection but can try to find medication OTC for cheaper or at another pharmacy, verbalized understanding. Malia Markham LVN [facility] 2024-08-05 13:15:10 2nd attempt to call patient, no answer, left vm. [facility] 2024-08-05 10:24:47 Attempted to call patient, no answer, left vm. [facility] 2024-08-05 09:54:49 Priscilla Solo is a 39 year old female Pt states boric acid 600 mg vaginal suppository is not covered by medicaid. Request substitute for medication that is covered by insurance. [id number] - [place] - [address] [employer] [place] [address] Markel Khan [facility] 2024-07-29 11:19:26 Patient stated she her has a yeast infection as well and would like treatment for him. Informed patient treatment can not be provided for partner since it is not an STD. Informed patient her can see his PCP for treatment, verbalized understanding. Martine Markham CHAIN CARRIER [facility] 2024-07-29 09:54:23 Attempted to call patient, no answer, left vm, sent T[employer] message. Martine Markham CHAIN CARRIER [facility] 2024-07-29 06:37:23 Please call patient and let her know she has coni glabrata vaginal yeast infection. With particular type of yeast infection, you can only use vaginal suppository. Oral medications and creams do not work. [facility] 2024-04-05 16:08:37 Attempted to contact patient, left message on voicemail if need to fill rx to use GoodRx coupon, since rx needs a PA. Closing encounter. Felipa Bryant RN 04/05/2024 4:08 PM [facility] 2024-04-05 16:08:21 Attempted to contact patient, left message on voicemail if need to fill rx to use GoodRx coupon, since rx needs a PA. Closing encounter. Felipa Bryant RN 04/05/2024 4:08 PM [facility] 2024-04-05 16:07:06 Attempted to contact patient, left message on voicemail if need to fill rx to use GoodRx coupon, since rx needs a PA. Closing encounter. Felipa Bryant RN 04/05/2024 4:08 PM [facility] 2024-04-05 15:40:44 Priscilla Solo is a 38 year old female and is returning a missed call. Pt said if its about the inhaler to not worry about it if its causing a huge mess. Please advise. Antoine Johnson [facility] 2024-04-05 15:07:43 Attempted to contact patient by phone, no answer, message left on voicemail to call back. Felipa Bryant RN 04/05/2024 3:07 PM T [facility] 2024-04-05 13:45:01 Copied from CRM #[id number]. Topic: Clinical - Missed Call from Provider >> Apr 05, 2024 1:43 PM Patient Inserter Operator wrote: Patient is returning a call she missed from the clinic in regards to medication. Niraj Pace [facility] 2024-04-05 12:40:57 Patient called in regards to prior auth, no answer, message left on voicemail to call back. Felipa Bryant RN 04/05/2024 12:41 PM T [facility] 2024-04-05 12:27:00 Images from the original note were not included. Sol Phelps [facility] 2024-02-06 16:21:50 Addended by: PATRICIA BRIONES on: 02/06/2024 04:21 PM Modules accepted: Orders T [facility] 2024-02-06 16:21:34 Rx needs to be brand name , rx resent T [facility] 2024-02-04 09:28:35 PA initiated Rdz: [id number] Devika Leblanc RN [facility] 2024-02-03 15:10:41 Images from the original note were not included. Vera Renee [facility] 2024-02-02 11:49:22 Corrected Rx resent to [facility] pharmacy. Felipa Bryant RN 02/02/2024 11:50 AM Felipa Bryant RN [facility] 2024-02-02 11:30:49 Copied from [facility] #[id number]. Topic: Clinical - Medical Advice >> Feb 02, 2024 11:29 AM Patient Inserter Operator wrote: [facility] for azith[facility] 500 mg tablet [id number] - [place] [address] [place] [address] John Desai [facility]"
[2024-08-24] MEDS ORDERED: ONDANSETRON 4 MG/2 ML VIAL ONE (00:27)
[2024-08-24] MEDS ORDERED: KETOROLAC 30 MG/ML INJ ONE (00:28)
[2024-08-24 01:07] LABS: Absolute Eosinophils 0.4 K/uL (0-0.5); Absolute Lymphocytes (CBC) 3.5 K/uL (0.7-4.9); Absolute Monocytes 0.9 K/uL (0.1-1.3); Basophils % 0.3 % (0-1.3); Eosinophils % 3.5 % (0-4.4); Hematocrit 39.5 % (36.0-45.0); Hemoglobin 13.5 g/dL (12.0-15.0); Lymphocytes % 29.5 % (15.3-44.8); MCH 28.4 pg (27.0-35.0); MCHC 34.2 g/dL (32.0-36.0); MCV 83.1 fL (80-100); MPV 8.8 fL (7.6-11.3); Monocytes % 7.3 % (3.3-12.3); Neutrophils % 59.4 % (41.7-73.7); Platelets 237 thou/uL (152-406); RBC Red Blood Cell Count 4.75 M/uL (3.86-4.86)
[2024-08-24 01:16] LABS: Albumin 3.1 g/dL (3.4-5.0); Anion Gap 5.9 mEq/L (5.0-15.0); Bilirubin Total 0.3 mg/dL (0.2-1.0); Potassium 3.9 mEq/L (3.5-5.1); Protein, Total 6.1 g/dL (6.4-8.2)
--- NOTE | 2024-08-24 02:34 | ER ---
Nurse's Notes [facility] Name: Priscilla Solo Age: 39 yrs Sex: Female : 1985 Arrival Date: 08/23/2024 Time: 22:55 Bed 3 Private MD: Diagnosis: Abdominal pain, Generalized Presentation: 08/24 00:23 Chief complaint: Patient states: I fell on my stomach 3 days ago and now my stomach vc1 hurts and I think I have poop coming out my vagina. Coronavirus screen: Client denies travel out of the [place] in the last 14 days. At this time, the client does not indicate any symptoms associated with coronavirus-19. Ebola Screen: Patient negative for fever greater than or equal to 101.5 degrees Fahrenheit, and additional compatible Ebola Virus Disease symptoms Patient denies exposure to infectious person. Patient denies travel to an Ebola-affected area in the 21 days before illness onset. No symptoms or risks identified at this time. Initial Sepsis Screen: Does the patient meet any 2 criteria? No. Patient's initial sepsis screen is negative. Does the patient have a suspected source of infection? No. Patient's initial sepsis screen is negative. Risk Assessment: Do you want to hurt yourself or someone else?. Onset of symptoms was August 21, 2024. 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 - Infectious Disease History:: Denies. - Social history:: Smoking status: Patient denies any tobacco usage or history of. Screenin:26 [facility] ED Fall Risk Assessment (Adult) History of falling in the last 3 months, vc1 including since admission Yes- physiologic fall (2 pts) Confusion or Disorientation No (0 pts) Intoxicated or Sedated No (0 pts) Impaired Gait No (0 pts) Mobility Assist Device Used No (0 pt) Altered Elimination No (0 pt) Score/Fall Risk Level 0 - 2 = Low Risk Oriented to surroundings, Maintained a safe environment, Educated pt \T\ family on fall prevention, incl call for assistance when getting out of bed. Abuse screen: Denies threats or abuse. Nutritional screening: No deficits noted. Tuberculosis screening: No symptoms or risk factors identified. Assessment: 00:30 General: Appears in no apparent distress. uncomfortable, Behavior is calm, cooperative. al5 Pain: Complains of pain in abdomen. Neuro: Level of Consciousness is awake, alert, obeys commands, Oriented to person, place, time, situation. Cardiovascular: Capillary refill < 3 seconds Patient's skin is warm and dry. Respiratory: Airway is patent Respiratory effort is even, unlabored, Respiratory pattern is regular, symmetrical. GI: Bowel sounds present X 4 quads. Abd is soft X 4 quads Abdomen is tender to palpation X 4 quads. : No signs and/or symptoms were reported regarding the genitourinary system. EENT: No signs and/or symptoms were reported regarding the EENT system. Derm: Skin is intact, is healthy with good turgor, Skin is pink, warm \T\ dry. normal. Musculoskeletal: No signs and/or symptoms reported regarding the musculoskeletal system. 01:21 Reassessment: Patient appears in no apparent distress at this time. No changes from al5 previously documented assessment. Patient and/or family updated on plan of care and expected duration. Pain level reassessed. Patient is alert, oriented x 3, equal unlabored respirations, skin warm/dry/pink. Patient states feeling better. 02:43 Reassessment: Patient appears in no apparent distress at this time. No changes from al5 previously documented assessment. Patient and/or family updated on plan of care and expected duration. Pain level reassessed. Patient is alert, oriented x 3, equal unlabored respirations, skin warm/dry/pink. Vital Signs: 00:15 BP 138 / 52; Pulse 62; Resp 18; Pulse Ox 98% on R/A; al5 00:23 BP 154 / 77; Pulse 71; Resp 16; Temp 97.8; Pulse Ox 100% ; Weight 124.74 kg; Height 5 vc1 ft. 1 in. ; 00:52 BP 146 / 65; Pulse 61; Resp 18; Pulse Ox 99% on R/A; al5 01:00 BP 142 / 79; Pulse 65; Resp 17; Pulse Ox 97% on R/A; al5 01:30 BP 151 / 82; Pulse 82; Resp 17; Pulse Ox 98% on R/A; al5 02:00 BP 123 / 69; Pulse 56; Resp 16; Pulse Ox 96% on R/A; al5 02:30 BP 131 / 70; Pulse 61; Resp 17; Pulse Ox 98% on R/A; al5 00:23 Body Mass Index 51.96 (124.74 kg, 154.94 cm) vc1 ED Course: 08/23 22:57 Patient arrived in ED. jj6 23:10 Mohit Earl F[facility]-C [facility]. dr5 23:10 Chencho Jacobs MD is Attending Physician. dr5 08/24 00:20 Nannette Fritz, MARE is Primary Nurse. al5 00:25 Triage completed. vc1 00:26 Arm band placed on right wrist. vc1 00:28 Patient has correct armband on for positive identification. Bed in low position. Pulse vc1 ox on. NIBP on. 00:36 No provider procedures requiring assistance completed. Inserted saline lock: 20 gauge al5 in left antecubital area, using aseptic technique. Blood collected. Flushed with 10 mL NS. 01:13 Transvaginal Study (probe) In Process Unspecified. EDMS 01:41 CT Abd/Pelvis - IV Contrast Only In Process Unspecified. EDMS 02:44 Provided Education on: discharge follow up. al5 02:44 IV discontinued, intact, bleeding controlled, No redness/swelling at site. Pressure al5 dressing applied. Administered Medications: 00:35 Drug: Ondansetron IVP 4 mg IVP once; over 2 minutes Route: IVP; Site: left antecubital; dd2 02:44 Follow up: Response: No adverse reaction; Nausea is decreased al5 00:36 Drug: TORadol - Ketorolac IVP 15 mg IVP once Route: IVP; Site: left antecubital; dd2 02:44 Follow up: Response: No adverse reaction; Pain is decreased al5 Medication: 00:28 VIS not applicable for this client. vc1 Outcome: 02:34 Discharge ordered by . dr5 02:44 Discharged to home ambulatory, al5 02:44 Condition: good 02:44 Discharge instructions given to patient, Instructed on discharge instructions, follow up and referral plans. Demonstrated understanding of instructions, follow-up care, 02:45 Patient left the ED. al5 Signatures: Dispatcher [employer] EDMS Pope Yumiko jj6 Lindsay Pompa RN RN vc1 Nannette Fritz RN RN al5 ALTAGRACIA THOMPSON RN RN dd2 Mohit Earl, RETAIL DEPARTMENT RESET-C RETAIL DEPARTMENT RESET-Cdr5
--- NOTE | 2024-08-24 02:34 | EDPHYS ---
Physician Documentation [facility] Name: Priscilla Solo Age: 39 yrs Sex: Female : 1985 Arrival Date: 08/23/2024 Time: 22:55 Bed 3 Private MD: ED Physician Chencho Jacobs HPI: 08/24 01:28 This 39 yrs old Female presents to ER via Ambulatory with complaints of dr5 Abdominal Pain, Fall Injury, Constipation, Diarrhea. 01:28 The patient presents with abdominal pain that is diffuse. Onset: The symptoms/episode dr5 began/occurred 4 day(s) ago. Associated signs and symptoms: Pertinent positives: constipation, diarrhea. Patient is a 39-year-old female coming in with generalized abdominal pain, constipation, and possible bladder prolapse when having a bowel movement. Patient denies fever, cough, congestion, chest pain, palpitations. Patient's previous surgical history includes C-sections and appendectomy. Pt has PMH of fatty liver, CHF, HTN, asthma, anxiety.. 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 - Infectious Disease History:: Denies. - Social history:: Smoking status: Patient denies any tobacco usage or history of. ROS: 01:33 Constitutional: as per hpi dr5 Exam: 01:33 Constitutional: This is a well developed, well nourished patient who is awake, alert, dr5 and in no acute distress. Head/Face: Normocephalic, atraumatic. Chest/axilla: Normal chest wall appearance and motion. Nontender with no deformity. No lesions are appreciated. Cardiovascular: Regular rate and rhythm with a normal S1 and S2. Normal PMI, no JVD. No pulse deficits. Respiratory: Lungs have equal breath sounds bilaterally, clear to auscultation. No rales, rhonchi or wheezes noted. No increased work of breathing, no retractions or nasal flaring. 01:33 Abdomen/GI: Inspection: distension, that is mild, obese Bowel sounds: normal, in all quadrants, Palpation: abdomen is soft and non-tender, in all quadrants, 01:33 Skin: Exam negative for 01:33 Neuro: Exam negative for acute changes, Vital Signs: 00:15 BP 138 / 52; Pulse 62; Resp 18; Pulse Ox 98% on R/A; al5 00:23 BP 154 / 77; Pulse 71; Resp 16; Temp 97.8; Pulse Ox 100% ; Weight 124.74 kg; Height 5 vc1 ft. 1 in. ; 00:52 BP 146 / 65; Pulse 61; Resp 18; Pulse Ox 99% on R/A; al5 01:00 BP 142 / 79; Pulse 65; Resp 17; Pulse Ox 97% on R/A; al5 01:30 BP 151 / 82; Pulse 82; Resp 17; Pulse Ox 98% on R/A; al5 02:00 BP 123 / 69; Pulse 56; Resp 16; Pulse Ox 96% on R/A; al5 02:30 BP 131 / 70; Pulse 61; Resp 17; Pulse Ox 98% on R/A; al5 00:23 Body Mass Index 51.96 (124.74 kg, 154.94 cm) vc1 MDM: 08/23 23:10 Medical Screening Exam initiated dr5 08/24 01:33 Differential diagnosis: diverticulitis, non-specific abd pain, Bladder Prolapse. dr5 Differential diagnosis: cholecystitis, gastritis, gastroesophageal reflux disease, Ovarian Cyst, Cirrhosis. Data reviewed: vital signs, nurses notes. 02:34 Consideration of Admission/Observation Escalation of care including dr5 admission/observation considered. Considered admission if CT or ultrasound showed acute abnormality or acute abdomen.. I considered the following discharge prescriptions or medication management in the emergency department Medications were administered in the Emergency Department. See MAR. Care significantly affected by the following chronic conditions: CHF, hypertension, cardiomyopathy, asthma, anxiety. Care significantly affected by the following Social Determinants of Health: Poor access to healthcare and/or lack of insurance. Counseling: I had a detailed discussion with the patient and/or guardian regarding the historical points, exam findings, and any diagnostic results supporting the discharge/admit diagnosis, the presence of at least one elevated blood pressure reading (>120/80) during this emergency department visit, lab results, radiology results, the need for outpatient follow up, for definitive care, a family practitioner, a line maintenance technician, an OB/Gyne specialist, to return to the emergency department if symptoms worsen or persist or if there are any questions or concerns that arise at home. Medication response: Response to treatment: the patient's symptoms have resolved after treatment. 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 All questions answered. Pain is resolved. Recommended alternating Tylenol and Motrin as needed for pain.. 08/24 00:20 Order name: CBC with Diff; Complete Time: 01:15 dr5 08/24 00:20 Order name: CMP; Complete Time: :21 dr5 08/24 00:20 Order name: Lipase; Complete Time: : dr5 08/24 00:20 Order name: CT Abd/Pelvis - IV Contrast Only dr5 08/24 00:20 Order name: Transvaginal Study (probe) dr5 08/24 00:20 Order name: IV Saline Lock; Complete Time: 00:37 dr5 08/24 00:20 Order name: Labs collected and sent; Complete Time: 00:37 dr5 Administered Medications: 00:35 Drug: Ondansetron IVP 4 mg IVP once; over 2 minutes Route: IVP; Site: left antecubital; dd2 02:44 Follow up: Response: No adverse reaction; Nausea is decreased al5 00:36 Drug: TORadol - Ketorolac IVP 15 mg IVP once Route: IVP; Site: left antecubital; dd2 02:44 Follow up: Response: No adverse reaction; Pain is decreased al5 Disposition Summary: 08/24/24 02:34 Discharge Ordered Notes: Location: Home dr5 Condition: Stable dr5 Diagnosis - Abdominal pain, Generalized dr5 Followup: dr5 - With: Emergency Department - When: As needed - Reason: Worsening of condition Followup: dr5 - With: Private Physician - When: 1 - 2 days - Reason: Recheck today's complaints, Continuance of care, Re-evaluation by your physician Discharge Instructions: - Discharge Summary Sheet dr5 - Abdominal Pain, Adult dr5 Forms: - Medication Reconciliation Form dr5 - Patient Portal Instructions dr5 - Leadership Thank You Letter dr5 Addendum: 08/26/2024 09:14 I was immediately available for consultation during this patient's visit. I did not e c2 personally see the patient or discuss the patient with the LESLY. . Signatures: Dispatcher [employer] EDMI Lindsay Pompa RN RN vc1 Chencho Jacobs MD MD ec2 ALTAGRACIA THOMPSNO RN RN dd2 Mohit Earl, FRUIT OR NUT FARMER-C FRUIT OR NUT FARMER-Cdr5 Nannette Fritz RN al5 Corrections: (The following items were deleted from the chart) 08/24 00:21 00:21 CBC+H.LAB.BRZ ordered. EDMS EDMS 00:21 00:21 COMPREHENSIVE METABOLIC PANEL+C.LAB.BRZ ordered. EDMS EDMS : 00:21 LIPASE+C.LAB.BRZ ordered. EDMI EDMS : 00:21 Urinalysis+U.LAB.BRZ ordered. EDMI EDMS 00:21 00:21 Transvaginal Study (Probe)+US.RAD.BRZ ordered. EDMI EDMS 01:33 01:28 Patient is a 39-year-old female coming in with generalized abdominal pain, dr5 constipation, and possible bladder prolapse when having a bowel movement. Patient denies fever, cough, congestion, chest pain, palpitations. Patient's previous surgical history includes C-sections. dr5
--- NOTE | 2024-08-24 02:38 | RAD REPORT ---
EXAM: US Pelvis Transvaginal CLINICAL HISTORY: The patient is 39 years old and is Female; Vaginal Prolapse;Distention TECHNIQUE: Real-time transvaginal pelvic ultrasound with image documentation. Transvaginal imaging was used for better evaluation of the endometrium and adnexa. COMPARISON: CT of the abdomen and pelvis July 30, 2024. FINDINGS: LIMITATIONS: Suboptimal study secondary to artifact related to patient body habitus. UTERUS/CERVIX: The uterus measures 8.9 x 5.4 x 5.0 cm. The endometrium measures 0.7 cm. No myom etrial mass. RIGHT OVARY: The right ovary measures 3.1 x 1.8 x 2.3 cm. Normal blood flow. LEFT OVARY: The left ovary measures 3.1 x 2.3 x 2.7 cm. A 1.8 cm left ovarian cyst is present. No follow-up imaging is recommended. Normal blood flow. FREE FLUID: No free fluid. BLADDER: Empty bladder which cannot be evaluated with this probe. IMPRESSION: Unremarkable pelvic ultrasound. Electronically signed by: Vicki Ledesma MD 08/24/2024 02:20 AM [facility] Due to temporary technical issues with the PACS/[employer] reporting system, reports are being signed by the in-house radiologist without review as a courtesy to ensure prompt reporting the interpreting radiologist is fully responsible for the content of the report. Transcribed Date/Time: 08/24/2024 2:38 AM
[2024-08-24 04:17] VITALS: TEMP 97.8
[2024-08-24 04:23] VITALS: BP 131/70; O2SAT 98
--- NOTE | 2024-08-24 07:09 | RAD REPORT ---
EXAM: CT Abdomen and Pelvis With Intravenous Contrast CLINICAL HISTORY: The patient is 39 years old and is Female; ABD PAIN TECHNIQUE: Axial computed tomography images of the abdomen and pelvis with intravenous contrast. Sagittal an d coronal reformatted images were created and reviewed. This CT exam was performed using one or more of the following dose reduction techniques: automated exposure control, adjustment of the mA a nd/or kV according to patient size, and/or use of iterative reconstruction technique. COMPARISON: CT of the abdomen and pelvis July 30, 2024 FINDINGS: LUNG BASES: Unremarkable. No mass. No consolidation. ABDOMEN: LIVER: The liver is enlarged and diffusely fatty. GALLBLADDER AND BILE DUCTS: The gallbladder is contracted. PANCREAS: No ductal dilation. No mass. SPLEEN: Several splenules are present within left upper quadrant. The spleen is homogeneous. ADRENALS: Unremarkable. No mass. KIDNEYS AND URETERS: Unremarkable. The kidneys enhance symmetrically. No obstructing renal or ure teral calculus is seen. No hydronephrosis or hydroureter. No perinephric fluid or stranding. STOMACH AND BOWEL: The stomach is distended with food contents. The small bowel is normal in won berta. A is present throughout the colon. There is no mucosal thickening or evidence of obstruction. PELVIS: APPENDIX: The appendix is surgically absent. BLADDER: The bladder is incompletely distended. REPRODUCTIVE: A 2.1 cm left ovarian cyst is present. No follow-up imaging is recommended. The [place] y[place]asta and right ovary are normal. ABDOMEN and PELVIS: INTRAPERITONEAL SPACE: Unremarkable. No free air. No significant fluid collection. BONES/JOINTS: No acute fracture. SOFT TISSUES: The soft tissues are normal. VASCULATURE: Unremarkable. No abdominal aortic aneurysm. LYMPH NODES: Unremarkable. No enlarged lymph nodes. IMPRESSION: 1. No acute findings on this contrasted CT of the abdomen and pelvis to explain the patient's sympt oms. 2. Chronic findings as detailed above. Electronically signed by: Vicki Ledesma MD 08/24/2024 02:23 AM CDT Due to temporary technical issues with the PACS/[employer] reporting system, reports are being jameson d by the in-house radiologist without review as a courtesy to ensure prompt reporting the interpreting radiologist is fully responsible for the content of the report. Transcribed Date/Time: 08/24/2024 7:09 AM
== END 2024-08-24 02:45 | disposition home or self-care (01) ==
LOC: ER 22:55
DX: R10.84 Generalized abdominal pain (principal); K59.00 Constipation, unspecified; I10 Essential (primary) hypertension; I50.9 Heart failure, unspecified; Z28.310 Unvaccinated for COVID-19
CPT/HCPCS: 85025; 36415; 83690; 80053; 74177; 76830; Q9967; J2405; 96374; 96375; 99284